=== PATIENT | female | born 1970 | race Caucasian/White ===

== ENCOUNTER → 2018-06-27 11:55 | Outpatient (CLI) | payer OTHER, SELFPAY ==
[2018-06-27 13:55] LABS: Absolute Lymphocyte Count 2.68 X10^3/ul (0.83-4.51); Absolute Neutrophil Count 3.3 X10^3/uL (2.0-7.7); Basophil# 0.04 X10^3/uL; Basophil% 0.6 % (0-1); Eosinophil# 0.14 X10^3/uL; Hemoglobin 12.6 g/dl (12.0-15.0); Lymphocyte # 2.68 X10^3/ul (4.0); Lymphocyte % 38.6 % (19-41); Mean Corp Hgb Conc 33.2 g/gl (32-36); Mean Corpuscular Hgb 26.6 pg (27.0-32.0); Mean Corpuscular Volume 80.3 fL (81-99); Mean Platelet Vol. 9.7 fl (6.2-12.0); Monocyte# 0.78 X10^3/uL; Monocyte% 11.2 % (0-10); Neutrophil # 3.29 X10^3/uL (2.7-7.7); Neutrophil % 47.3 % (47-70); POSITIVE COUNT NO; POSITIVE DIFFERENTIAL NO; POSITIVE MORPHOLOGY NO; Platelet Count 231 K/mm3 (150-450); RBC Distribution Width CV 13.5 % (11.6-14.6); RBC Distribution Width SD 38.8 fl (35.1-43.9); Red Blood Count 4.73 M/mm3 (4.2-5.4)
[2018-06-27 14:18] LABS: ALB/GLOB Ratio 0.9 RATIO (0.9-2.4); AST(SGOT) 54 U/L (15-37); Alanine Aminotransfer ALT/SGPT 74 U/L (13-56); Albumin, Serum 3.7 g/dL (3.2-5.0); Alkaline Phosphatase 51 U/L (45-117); Anion Gap 4 (5-15); BUN 20 mg/dL (7-18); BUN/Creat Ratio 26.7 RATIO (10-20); Chloride 105 mmol/L (98-107); Creatinine, Serum 0.75 mg/dL (0.55-1.02); EST Glomerular Filtration Rate 88 mL/min (>60); Est Glom Filt Rate - Afr Amer 106 mL/min (>60); Globulin 4.2 g/dL (2.2-4.2); Glucose 234 mg/dL (74-106); Potassium 4.1 mmol/L (3.5-5.1); Protein, Total 7.9 g/dL (6.4-8.2); Sodium Level 136 mmol/L (136-145); Thyroid Stim Hormone (TSH) 3.38 uIU/mL (0.358-3.74)
== END ==
PROVIDERS: Visit Provider Family Medicine Geriatric Medicine
DX: Z00.00 Encounter for general adult medical examination without abnormal findings (principal)
CPT/HCPCS: 36415; 80053; 84443; 85025

== ENCOUNTER → 2018-07-03 15:10 | Outpatient (CLI) | payer OTHER, SELFPAY ==
[2016-04-01 11:06] VITALS: BMI 47.0
== END ==
PROVIDERS: Visit Provider Family Medicine Geriatric Medicine
DX: N39.0 Urinary tract infection, site not specified (principal)
CPT/HCPCS: 87086; 87088; 87186

== ENCOUNTER → 2018-09-18 13:55 | Outpatient (CLI) | payer OTHER, SELFPAY ==
[2016-04-01 11:06] VITALS: BMI 47.0
[2018-09-18 17:23] LABS: Absolute Lymphocyte Count 2.54 X10^3/ul (0.83-4.51); Absolute Neutrophil Count 3.6 X10^3/uL (2.0-7.7); Basophil# 0.02 X10^3/uL; Basophil% 0.3 % (0-1); Eosinophil# 0.12 X10^3/uL; Eosinophils% 1.8 % (0-5); Hematocrit 39.9 % (37-47); Lymphocyte # 2.54 X10^3/ul (4.0); Lymphocyte % 37.3 % (19-41); Mean Corp Hgb Conc 32.6 g/gl (32-36); Mean Corpuscular Hgb 26.1 pg (27.0-32.0); Mean Platelet Vol. 10.2 fl (6.2-12.0); Monocyte# 0.48 X10^3/uL; Neutrophil # 3.64 X10^3/uL (2.7-7.7); Neutrophil % 53.5 % (47-70); Platelet Count 258 K/mm3 (150-450); RBC Distribution Width CV 13.2 % (11.6-14.6); RBC Distribution Width SD 37.8 fl (35.1-43.9); Red Blood Count 4.99 M/mm3 (4.2-5.4); White Blood Count 6.8 K/mm3 (4.4-11.0)
[2018-09-18 17:31] LABS: POSITIVE COUNT NO; POSITIVE DIFFERENTIAL NO; POSITIVE MORPHOLOGY NO
[2018-09-18 18:02] LABS: ALB/GLOB Ratio 0.9 RATIO (0.9-2.4); AST(SGOT) 19 U/L (15-37); Alanine Aminotransfer ALT/SGPT 27 U/L (13-56); Albumin, Serum 3.8 g/dL (3.2-5.0); Alkaline Phosphatase 40 U/L (45-117); Anion Gap 11 (5-15); BUN 16 mg/dL (7-18); BUN/Creat Ratio 20.8 RATIO (10-20); Calcium,Total 9.5 mg/dL (8.5-10.1); Chloride 103 mmol/L (98-107); Creatinine, Serum 0.77 mg/dL (0.55-1.02); EST Glomerular Filtration Rate 85 mL/min (>60); Est Glom Filt Rate - Afr Amer 103 mL/min (>60); Globulin 4.3 g/dL (2.2-4.2); Glucose 107 mg/dL (74-106); Potassium 4.1 mmol/L (3.5-5.1); Protein, Total 8.1 g/dL (6.4-8.2); Sodium Level 141 mmol/L (136-145); Thyroid Stim Hormone (TSH) 2.12 uIU/mL (0.358-3.74)
== END ==
PROVIDERS: Visit Provider Family Medicine Geriatric Medicine
DX: I10 Essential (primary) hypertension (principal); E11.65 Type 2 diabetes mellitus with hyperglycemia
CPT/HCPCS: 36415; 80053; 84443; 85025

== ENCOUNTER → 2018-09-19 09:56 | Outpatient (CLI) | payer OTHER, SELFPAY ==
[2016-04-01 11:06] VITALS: BMI 47.0
--- NOTE | 2018-09-19 10:01 | RAD_ITS ---
STUDY: X-RAY - LEFT KNEE REASON FOR EXAM: Female, 48 years old. TECHNIQUE: view(s) of the knee. COMPARISON: None. FINDINGS: Normal visualized distal femur. Normal visualized proximal tibia and fibula. Normal proximal tibiofibular articulation. Normal medial femorotibial compartment. Normal lateral femorotibial compartment. Normal patellofemoral articulation. The soft tissue structures are unremarkable. No joint effusion. RAD/Knee 4 or More Views IMPRESSION: Normal x-ray examination of the knee. Electronically Signed: Eugene Hirsch, at 12:24 EDT Tel , Service support ,
== END ==
PROVIDERS: Family Provider Family Medicine Geriatric Medicine; PCP Family Medicine Geriatric Medicine; Referring Provider Family Medicine Geriatric Medicine; Visit Provider Family Medicine Geriatric Medicine
DX: M25.569 Pain in unspecified knee (principal)
CPT/HCPCS: 73564

== ENCOUNTER 2018-10-17 12:00 | Outpatient (RCR) | payer SELFPAY ==
--- NOTE | 2018-09-26 18:17 | HP.PTEVAL_ITS ---
Patient's Visit Information ARLEN NGUYEN is a 48 year old F referred to Physical Therapy by Phu Espinoza MD with a diagnosis of L knee pain. Date of Evaluation: 09/26/18 Physical Therapist: NILTON Rachel - Visit Plan Frequency: 2x /Week Duration: 6 Weeks Plan: 2X/ week for 6 weeks for gait training, equal wb sit to stand transfers, L hip and knee strength, stairs with HEP and modalities as needed. - Subjective Findings: Her L knee has hurt for years and did x-rays. It is getting worse and she is losing weight. It is waking her up in the middle of the night. Years ago she was told that she had some degenerative arthritis. Sx: pain center to lateral aspect of her knee. Occ it will lock or catch. She sleeps with a pillow between knees. SHe walks a lot. She has pain on the stairs and does give out on stairs. She wont carry the babies on the stairs. Occ she feels that she has limp. Crossing her L knee bothers her. - Pain L knee pain Pain Intensity (Out of 10): 4 - Objective gait: walks with decreased stance time on the L leg. def antalgic gait. Sit to stand: is able to stand up without her arms but she def uses her R leg to get up as opposed to the L leg to help. Stairs: Pt is able to go up stairs recip using her hand on her L knee and only able to come down the stairs using her R leg down first. LE MMT: R hip flex 4/5 and L hip flex 4-/5, R knee ext 4/5 and L 4-/5, R knee flex 4/5 and L 4-/5, R hip abd 4/5 and l 4-/5,. Knee AROM: B 133 flexion and 0 degrees extrenson. Palpation: tender along the lateral joint line and some patellar tendon tightness. - Goals Goal 1:: I HEP Goal Time Frame: 4-6 Weeks Goal 2:: Decrease L knee pain to 0/10 with walking and stairs Goal Time Frame: 4-6 Weeks Goal 3:: Increase L knee and hip strength to be able to do a sit to stand using B LE's equally Goal Time Frame: 4-6 Weeks Goal 4:: Be able to go up and down stairs recip with 1-2 handrails Goal Time Frame: 4-6 Weeks - Rehabilitation Potential Rehabilitation Potential: Good - Anticipated Interventions Patient/Client Instruction: Educate patient on: Condition, Plan of Care For the Purpose of:: To decrease pain, To increase ROM, To improve nutrient delivery to tissue, To improve muscle performance and motor function, To improve ability to perform ADL's, To increase tolerance to activity/condition/position, To improve performance and independence with ADL's, To decrease level of supervision to perform tasks, To improve ability of physical actions for home/community/work/leisure, To improve gait and locomotor functions, To improve health of tissue, To decrease soft tissue restriction, To increase flexibility/ROM Therapeutic Exercise to Include: Strength training, Flexibilty training, Gait and locomotor training, Active ROM For the Purpose of:: To decrease pain, To increase ROM, To improve muscle performance and motor function, To improve ability to perform ADL's, To increase tolerance to activity/condition/position, To improve performance and independence with ADL's, To improve ability of physical actions for home/community/work/leisure, To improve gait and locomotor functions, To improve health of tissue, To increase flexibility/ROM, To improve safety with gait IF ES: Yes Cryotherapy (ice pack, ice massage): Yes Ultrasound (thermal/non thermal): Yes For the Purpose of:: To decrease pain, To decrease swelling/inflammation, To increase ROM, To improve nutrient delivery to tissue Thank you for the opportunity to evaluate your patient. For Medicare and Medicare HMO plans, please review the plan of care and approve it. It will need to be FAXED BACK to us at [phone] for Medicare purposes. For Medicare only, by signing this I certify the plan of care. Please let me know if there are questions or concerns regarding this plan of care. Physician Si gnature: Date:
--- NOTE | 2018-11-27 14:18 | HP.PTDCNRP_ITS ---
HP - Discharge Summary (1) - Patient Information ARLEN NGUYEN was seen in my office for initial evaluation on 09/26/18. The following Plan of Care was established for this patient: Initial Frequency: 2x /Week Initial Duration: 6 Weeks - Anticipated Interventions Patient/Client Instruction: Educate patient on: Condition, Plan of Care For the Purpose of:: To decrease pain, To increase ROM, To improve nutrient del bailey to tissue, To improve muscle performance and motor function, To improve ability to perform ADL's, To increase tolerance to activity/condition/position, To improve performance and independence with ADL's, To decrease level of supervision to perform tasks, To improve ability of physical actions for home/community/work/leisure, To improve gait and locomotor functions, To improve health of tissue, To decrease soft tissue restriction, To increase flexibility/ROM Therapeutic Exercise to Include: Strength training, Flexibilty training, Gait and locomotor training, Active ROM For the Purpose of:: To decrease pain, To increase ROM, To improve muscle performance and motor function, To improve ability to perform ADL's, To increase tolerance to activity/condition/position, To improve performance and independence with ADL's, To improve ability of physical actions for home/community/work/leisure, To improve gait and locomotor functions, To improve health of tissue, To increase flexibility/ROM, To improve safety with gait IF ES: Yes Cryotherapy (ice pack, ice massage): Yes Ultrasound (thermal/non thermal): Yes For the Purpose of:: To decrease pain, To decrease swelling/inflammation, To increase ROM, To improve nutrient delivery to tissue This patient was last seen in our office 10/17/18. Pertinent comments regarding their Physical therapy will appear below: [facility] as pt has not rescheduled any additional PT appointments. At this point I will be discontinuing this patient from physical therapy. I would be happy to see this patient again in the future if found appropriate by the physician. Thank you! Briana Arzate, MPT
== END 2018-10-17 19:00 | disposition home or self-care (01) ==
LOC: PT 12:00
PROVIDERS: Family Provider Family Medicine Geriatric Medicine; PCP Family Medicine Geriatric Medicine; Referring Provider Family Medicine Geriatric Medicine; Visit Provider Family Medicine Geriatric Medicine
DX: M25.569 Pain in unspecified knee (principal)
CPT/HCPCS: 97110; 97161; 97530

== ENCOUNTER 2018-11-18 13:12 | Emergency (ER) | payer OTHER, SELFPAY ==
[2018-11-18 13:14] VITALS: BP 173/87; PULSE 97; RESP 20; TEMP 36.1; O2SAT 95; BMI 32.5
--- NOTE | 2018-11-18 13:29 | CT_ITS ---
STUDY: CT BRAIN WITHOUT CONTRAST REASON FOR EXAM: Female, 48 years old. Headache RADIATION DOSAGE (If Supplied By Facility): CTDIvol = ( 44.99 ) mGy, DLP = ( 846.73 ) mGycm TECHNIQUE: Transaxial CT imaging of the brain was performed without administration of intravenous contrast material. Individualized dose optimization techniques were used for this CT. COMPARISON: 09/11/2014 FINDINGS: Normal soft tissue structures. Normal calvarium. Normal size ventricles and extra-axial spaces for the patient's age. Normal white matter tracts of the cerebral hemispheres. Normal basal ganglia and thalami. Normal brainstem. Normal cerebellum. There is no intracranial hemorrhage. There are no findings of an acute ischemic infarction. Normal visualized paranasal sinuses. CT/Brain/Head without Contrast IMPRESSION: Normal unenhanced CT scan of the brain. Electronically Signed: Semaj Arana MD ([place]) at 14:23 EDT , Service support ,
--- NOTE | 2018-11-18 13:30 | ED.DCSUM_ITS ---
History of Present Illness Chief Complaint: Headache Informant: Patient, Family Onset: Days Current Severity: Mild Narrative: Patient is here with family they indicate the patient began having a headache yesterday was nonspecific headache persisted into today she has not been ill in any other way no nausea vomiting or fever no exposures no trauma she does have multiple other health conditions including migraine headaches, diabetes and hypercholesterolemia are all been stable she is prone to occasional headaches, she has no known history of [employer] brain tumor or aneurysm and no family history they can recall does note her sister has history of migraine headaches as well Past Medical History - Allergies and Home Meds Allergies/Adverse Reactions: Allergies peanut Allergy (Verified 11/18/18 13:13) Anaphylaxis shellfish derived Allergy (Verified 11/18/18 13:13) Anaphylaxis codeine Adverse Reaction (Verified 11/18/18 13:13) Rash prednisone Adverse Reaction (Verified 11/18/18 13:13) Other sertraline HCl [From Zoloft] Adverse Reaction (Verified 11/18/18 13:13) Other NUTS Allergy (Uncoded 11/18/18 13:13) Anaphylaxis Primary Care Physician: Phu Espinoza Chi, MD [Primary Care Provider] - Past Medical History: - - Hypercholesterolemia and diabetes Surgical History: no surgical history Smoking Status: Never smoker - Family History Maternal Family History: Reports: Heart Disease Offspring Family History: Reports: Clotting Disorder, Heart Disease Review of Systems General: Denies: Chills, Fever, Sweats Eyes: Denies: Visual changes - bilaterally, Diplopia ENT: Denies: Rhinorrhea, Sore throat Cardiovascular: Denies: Chest pain, Palpitations Respiratory: Denies: Dyspnea, Cough, Dyspnea on exertion Gastrointestinal: Denies: Abdominal pain, Nausea, Vomiting, Diarrhea, Melena, Hematochezia Genitourinary: Denies: Dysuria, Hematuria, Frequency Musculoskeletal: Denies: Back pain, Extremity Pain Skin: Denies: Rash, Wounds Neurological: Reports: Headache. Denies: Weakness, Numbness Physical Exam Vital Signs/Narrative: Vital Signs Temp Pulse Resp BP Pulse Ox 11/18/18 13:14 96.9 F L 97 20 H 173/87 H 95 General: Well nourished, Well developed, No Acute Distress Head: Normocephalic, Atraumatic Eyes: Perrl, EOMI ENT: Moist mucous membranes, No rhinorrhea Neck: Supple, Nontender Cardiovascular: Regular rate, Regular rhythm, No murmurs Respiratory: No distress, CTA bilaterally, Chest nontender Abdomen: Soft, Nontender, Nondistended, Normal bowel sounds Back: Nontender, Normal Inspection Extremities: Nontender, No edema Skin: Normal color, No rash Neurological: Alert, Oriented x3, Cranial nerves II-XII grossly intact, Normal Strength, Normal Sensation Psychological: Normal affect, Normal Mood Diagnostic/Tx/Re-eval - Medical Decision Making She is only complaint is the headache her physical exam is really unremarkable she is afebrile her neck appears supple her pupils are equal reactive no discomfort to bright light, her other health conditions have been stable there was no trauma given all the above screening labs head CT pain management and reevaluation was admitted in 2014 with migraine headache disorder, at that time she had an MRI MRV other studies are unremarkable showing no signs of [employer] anatomic disorder aneurysm tumor etc. see that report Reevaluation the patient's screening labs chest x-ray EKG head CT are all negative, see those reports Reevaluation she is feeling much better spoke with her and her we discussed options of doing lumbar puncture admission for further management, she declined all of that and they indicated they would prefer to go home she will follow-up with her PCP she will be prescribed for [place] tablets as a rescue medicine and does agree to understand return for symptoms change or intensified anyway Home stable Impression final Migraine headache disorder improved to resolved ED Disposition - Plan for ED Patient: Diagnosis: Headache Instructions: HEADACHE, Unspecified Prescriptions: Hydrocodone Bitart/Apap 5-325 [[place] 5MG-325MG] 1 tab PO Q4H PRN PRN 2 Days #4 tab PRN Reason: Pain Prescription Printed Referrals: Phu Espinoza Chi, MD [Primary Care Provider] -
[2018-11-18] MEDS: 0.9% Normal Saline 1,000 ML 999 ML IV (13:37)
[2018-11-18] MEDS: morphine 8 MG/ML Syringe IV (13:38)
[2018-11-18] MEDS: DiphenhydrAMINE 50 MG/ML Syringe 25 MG IV (13:38)
[2018-11-18] MEDS: proCHLORPERazine 10 MG/2 ML Vial IV (13:39)
--- NOTE | 2018-11-18 13:50 | EKG12_ITS ---
Test Reason : CP Blood Pressure : / mmHG Vent. Rate : 101 BPM Atrial Rate : 101 BPM P-R Int : 192 ms QRS Dur : 088 ms QT Int : 376 ms P-R-T Axes : 049 031 020 degrees QTc Int : 487 ms Sinus tachycardia Low voltage QRS (Limb Leads) Confirmed by EDWINA DICKENS, ARNEL ([id number]), photographic editor VERNON LAZO ([id number]) on 11/21/2018 11:46:38 AM Referred By: GI Confirmed By:ARNEL BLAND MD
--- NOTE | 2018-11-18 13:57 | RAD_ITS ---
STUDY: X-RAY CHEST REASON FOR EXAM: Female, 48 years old. Headaches, agitation TECHNIQUE: AP COMPARISON: September 11, 2014 FINDINGS: The lungs are clear but under expanded. There is no demonstrated pleural abnormality. Normal size heart. Normal mediastinum and felisa. Normal visualized pulmonary arteries. Normal visualized aortic arch and descending thoracic aorta. Normal visualized thoracic spine. Normal visualized ribs, clavicles, and shoulders. There is no demonstrated abnormality of the visualized soft tissue structures of the upper abdomen. RAD/Chest 1 View (Portable) IMPRESSION: Hypoinflation. No airspace consolidation, pleural effusion or pneumothorax. Electronically Signed: Semaj Arana MD ([place]) at 14:43 EDT , Service support ,
[2018-11-18 13:58] LABS: Absolute Neutrophil Count 4.5 X10^3/uL (2.0-7.7); Basophil# 0.03 X10^3/uL; Basophil% 0.4 % (0-1); Eosinophil# 0.13 X10^3/uL; Eosinophils% 1.7 % (0-5); Hemoglobin 12.6 g/dL (12.0-15.0); Lymphocyte % 33.2 % (19-41); Mean Corp Hgb Conc 33.2 g/dL (32-36); Mean Corpuscular Hgb 26.6 pg (27.0-32.0); Mean Corpuscular Volume 80.3 fL (81-99); Mean Platelet Vol. 10.1 fl (6.2-12.0); Monocyte# 0.62 X10^3/uL; Monocyte% 7.9 % (0-10); NRBC Flagged by Analyzer 0 % (0-5); Neutrophil # 4.45 X10^3/uL (2.7-7.7); Neutrophil % 56.7 % (47-70); Platelet Count 242 K/mm3 (150-450); RBC Distribution Width CV 13.8 % (11.6-14.6); Red Blood Count 4.73 M/mm3 (4.2-5.4); White Blood Count 7.8 K/mm3 (4.4-11.0)
[2018-11-18 14:12] LABS: Anion Gap 11 (5-15); BUN 20 mg/dL (7-18); BUN/Creat Ratio 27.8 RATIO (10-20); Chloride 109 mmol/L (98-107); Creatinine, Serum 0.72 mg/dL (0.55-1.02); EST Glomerular Filtration Rate 92 mL/min (>60); Est Glom Filt Rate - Afr Amer 111 mL/min (>60); Estimated Creatinine Clearance 99.86 ml/min; Glucose 124 mg/dL (74-106); Potassium 3.7 mmol/L (3.5-5.1); Sodium Level 142 mmol/L (136-145)
[2018-11-18] MEDS: LORazepam 2 MG/ML Syringe 1 MG IV (14:26)
[2018-11-18 14:35] LABS: Bedside Glucose 126 mg/dL (70-110)
[2018-11-18] MEDS: Ketorolac 30 MG/ML Syringe IV (14:39)
[2018-11-18 15:13] VITALS: BP 168/88; PULSE 79; RESP 15; O2SAT 95
[2018-11-18 15:39] VITALS: PULSE 59; RESP 17; O2SAT 98
== END 2018-11-18 15:40 | disposition home or self-care (01) ==
LOC: ED 13:40
PROVIDERS: Emergency Provider Emergency Medicine; Family Provider Family Medicine Geriatric Medicine; PCP Family Medicine Geriatric Medicine
DX: G43.909 Migraine, unspecified, not intractable, without status migrainosus (principal); E78.00 Pure hypercholesterolemia, unspecified; E11.9 Type 2 diabetes mellitus without complications; Z88.5 Allergy status to narcotic agent; Z91.010 Allergy to peanuts
CPT/HCPCS: 70450; 71045; 80048; 82962; 84484; 85025; 93005; 96361; 96374; 96375; 96376; 99283; J7030; A4216

== ENCOUNTER → 2018-12-17 14:54 | Outpatient (CLI) | payer OTHER, SELFPAY ==
[2018-11-18 13:14] VITALS: BMI 32.5
[2018-12-17 16:55] LABS: Absolute Lymphocyte Count 2.83 X10^3/uL (0.83-4.51); Basophil# 0.03 X10^3/uL; Basophil% 0.4 % (0-1); Eosinophil# 0.12 X10^3/uL; Eosinophils% 1.6 % (0-5); Hematocrit 36.6 % (37-47); Hemoglobin 11.9 g/dL (12.0-15.0); Lymphocyte # 2.83 X10^3/ul (4.0); Lymphocyte % 37.3 % (19-41); Mean Corp Hgb Conc 32.5 g/dL (32-36); Mean Corpuscular Hgb 27.1 pg (27.0-32.0); Mean Corpuscular Volume 83.4 fL (81-99); Mean Platelet Vol. 10.4 fl (6.2-12.0); Monocyte# 0.63 X10^3/uL; Monocyte% 8.3 % (0-10); NRBC Flagged by Analyzer 0 % (0-5); Neutrophil # 3.95 X10^3/uL (2.7-7.7); Neutrophil % 52.1 % (47-70); Platelet Count 278 K/mm3 (150-450); RBC Distribution Width CV 13.7 % (11.6-14.6); RBC Distribution Width SD 41.8 fl (35.1-43.9); Red Blood Count 4.39 M/mm3 (4.2-5.4); White Blood Count 7.6 K/mm3 (4.4-11.0)
[2018-12-17 17:18] LABS: Vitamin D,25 Hydroxy 49.8 ng/mL (29.95-100.01)
[2018-12-17 17:22] LABS: AST(SGOT) 14 U/L (15-37); Alanine Aminotransfer ALT/SGPT 20 U/L (13-56); Albumin, Serum 3.9 g/dL (3.2-5.0); Alkaline Phosphatase 44 U/L (45-117); Anion Gap 9 (5-15); BUN 18 mg/dL (7-18); BUN/Creat Ratio 23.1 RATIO (10-20); Calcium,Total 9.4 mg/dL (8.5-10.1); Chloride 105 mmol/L (98-107); Creatinine, Serum 0.78 mg/dL (0.55-1.02); EST Glomerular Filtration Rate 84 mL/min (>60); Est Glom Filt Rate - Afr Amer 101 mL/min (>60); Globulin 4.1 g/dL (2.2-4.2); Glucose 89 mg/dL (74-106); Potassium 4.5 mmol/L (3.5-5.1); Sodium Level 142 mmol/L (136-145); Thyroid Stim Hormone (TSH) 2.27 uIU/mL (0.358-3.74)
== END ==
PROVIDERS: Family Provider Family Medicine Geriatric Medicine; PCP Family Medicine Geriatric Medicine; Visit Provider Family Medicine Geriatric Medicine
DX: I10 Essential (primary) hypertension (principal); E11.65 Type 2 diabetes mellitus with hyperglycemia; E55.9 Vitamin D deficiency, unspecified
CPT/HCPCS: 36415; 80053; 82306; 84443; 85025

== ENCOUNTER 2019-02-03 12:26 | Emergency (ER) | payer OTHER, SELFPAY ==
[2019-02-03 12:27] VITALS: BP 164/86; PULSE 69; RESP 14; TEMP 36.6; O2SAT 98; BMI 35.2
[2019-02-03 12:30] VITALS: BP 142/104; PULSE 81; RESP 16; O2SAT 95
[2019-02-03] MEDS: Famotidine 20 MG Tablet 40 MG PO (12:39)
[2019-02-03] MEDS: MethylPREDNISolone 125 MG/2 ML Vial IV (12:39)
[2019-02-03] MEDS: DiphenhydrAMINE 50 MG/ML Syringe IV (12:39)
[2019-02-03 14:01] VITALS: BP 155/87; PULSE 77; RESP 16; O2SAT 98
[2019-02-03 14:46] LABS: Bedside Glucose 138 mg/dL (70-110)
--- NOTE | 2019-02-03 15:01 | ED.VISSUMM ---
- ER Visit Summary Date of Service: 02/03/19 Chief Complaint: Allergic reaction History of Present Illness: The patient is a 48 F who states that she ate a cookie at religion today that must of contain knots because she feels like she is having an anaphylactic reaction. She notes shortness of breath feels like her throat is closing off. She states she gave herself an EpiPen which has saved her life. Physical Examination: Afebrile vital signs are stable Gen: Well-nourished well-developed Head: Normocephalic atraumatic Eyes: Perrl EOMI ENT: TMs clear no rhinorrhea moist mucous membranes Neck: Supple no lymphadenopathy no JVD nontender with forceful expiration patient has abnormal sounds from her noncompliance with airway otherwise no stridor or wheezing CVS: Regular rate rhythm no murmurs normal S1-S2 Respiratory: No distress clear to auscultation bilaterally chest nontender Abdomen: Soft nontender nondistended normal bowel sounds no masses Back: Nontender Extremity: Nontender no edema Skin: Normal color no rash no obvious urticaria Neuro: alert orientated ?3 CN II-XII intact normal strength sensation reflexes gait cerebellar Psych: Anxious Emergency Department Course and Treatment: Patient received Benadryl Pepcid and Solu-Medrol. She was observed for 3 hours. Patient be discharged home with instructions for continued Benadryl and Pepcid. Impression: 1. Allergic reaction to Nuts This note was generated with [employer] dictation software. It may contain incorrect words, spelling, and punctuation that were not noted in review of the chart prior to signing ED Disposition - Plan for ED Patient: Disposition: Home or Assisted Living Instructions: ALLERGIC REACTION, Other (General) Prescriptions: Epinephrine [Epipen] 0.3 mg IJ X1 PRN #1 auto.injct PRN Reason: Anaphylaxis Prescription Printed Referrals: Phu Espinoza Chi, MD [Primary Care Provider] - As Needed Additional Instructions: I would recommend continued Benadryl 25 mg every 6-8 hours. Also Pepcid 20 mg twice a day.
[2019-02-03 15:08] VITALS: BP 137/75; PULSE 80; RESP 16; O2SAT 98
[2019-02-03 15:34] VITALS: O2SAT 94
== END 2019-02-03 15:35 | disposition home or self-care (01) ==
PROVIDERS: Emergency Provider Emergency Medicine; Family Provider Family Medicine Geriatric Medicine; PCP Family Medicine Geriatric Medicine
DX: T78.1XXA Other adverse food reactions, not elsewhere classified, initial encounter (principal); X58.XXXA Exposure to other specified factors, initial encounter; E11.9 Type 2 diabetes mellitus without complications; J45.909 Unspecified asthma, uncomplicated
CPT/HCPCS: 82962; 99284; J7040; A4216

== ENCOUNTER → 2019-03-08 09:56 | Outpatient (CLI) | payer OTHER, SELFPAY ==
--- NOTE | 2019-03-08 10:00 | RAD_ITS ---
STUDY: X-RAY - PELVIS REASON FOR EXAM: Female, 48 years old. Psoriatic arthropathy. TECHNIQUE: One view of the pelvis was obtained. COMPARISON: None. FINDINGS: There is a non-specific bowel gas pattern. Normal visualized soft tissue structures. There are multiple calcified phleboliths. Normal bilateral iliac wings, sacroiliac joints and visualized sacrum. Normal visualized bilateral superior and inferior pubic rami. Normal pubic symphysis. Normal ischial tuberosities. Normal visualized right femoral head. Normal right acetabulum. Normal right hip joint. Normal visualized left femoral head. Normal left acetabulum. Normal left hip joint. RAD/Pelvis 1 or 2 Views IMPRESSION: Normal x-ray examination of the pelvis. Electronically Signed: Alma Rosa Govea MD at 2:52 EST , Service support ,
[2019-03-08 12:35] LABS: Absolute Lymphocyte Count 2.72 X10^3/uL (0.83-4.51); Absolute Neutrophil Count 2.7 X10^3/uL (2.0-7.7); Basophil# 0.03 X10^3/uL; Basophil% 0.5 % (0-1); Eosinophil# 0.15 X10^3/uL; Eosinophils% 2.4 % (0-5); Hematocrit 39.5 % (37-47); Hemoglobin 12.2 g/dL (12.0-15.0); Lymphocyte # 2.72 X10^3/ul (4.0); Mean Corp Hgb Conc 30.9 g/dL (32-36); Mean Corpuscular Volume 84.2 fL (81-99); Mean Platelet Vol. 10.1 fl (6.2-12.0); Monocyte% 9.7 % (0-10); NRBC Flagged by Analyzer 0 % (0-5); Neutrophil # 2.66 X10^3/uL (2.7-7.7); Neutrophil % 43.1 % (47-70); Platelet Count 253 K/mm3 (150-450); RBC Distribution Width CV 12.9 % (11.6-14.6); Red Blood Count 4.69 M/mm3 (4.2-5.4); White Blood Count 6.2 K/mm3 (4.4-11.0)
[2019-03-08 12:43] LABS: ALB/GLOB Ratio 0.9 RATIO (0.9-2.4); AST(SGOT) 19 U/L (15-37); Alanine Aminotransfer ALT/SGPT 27 U/L (13-56); Albumin, Serum 3.8 g/dL (3.2-5.0); Alkaline Phosphatase 50 U/L (45-117); Anion Gap 1 (5-15); BUN 13 mg/dL (7-18); BUN/Creat Ratio 17.7 RATIO (10-20); Calcium,Total 8.8 mg/dL (8.5-10.1); Chloride 104 mmol/L (98-107); Creatinine, Serum 0.73 mg/dL (0.55-1.02); EST Glomerular Filtration Rate 90 mL/min (>60); Est Glom Filt Rate - Afr Amer 109 mL/min (>60); Globulin 4.1 g/dL (2.2-4.2); Glucose 131 mg/dL (74-106); Protein, Total 7.9 g/dL (6.4-8.2); Rheumatoid Factor < 10.0 IU/mL (<15); Sodium Level 138 mmol/L (136-145)
[2019-03-08 13:25] LABS: Hepatitis B Surface Antibody Non-Reactive; Hepatitis B Surface Antigen Non-Reactive (Nonreactive); Hepatitis C Antibody Non-Reactive (Nonreactive)
[2019-03-13 20:10] LABS: CCP IgG Antibodies 8 units (0-19); HLA B27 Negative (.); Hepatitis B Core AB IgM Negative (Negative)
== END ==
PROVIDERS: Family Provider Family Medicine Geriatric Medicine; PCP Family Medicine Geriatric Medicine; Referring Provider Internal Medicine Rheumatology; Visit Provider Internal Medicine Rheumatology
DX: L40.59 Other psoriatic arthropathy (principal); L40.8 Other psoriasis; E11.42 Type 2 diabetes mellitus with diabetic polyneuropathy; I10 Essential (primary) hypertension; F32.9 Major depressive disorder, single episode, unspecified; J30.9 Allergic rhinitis, unspecified
CPT/HCPCS: 36415; 72170; 80053; 81374; 85025; 86200; 86431; 86705; 86706; 86803; 87340

== ENCOUNTER → 2019-03-26 15:38 | Outpatient (CLI) | payer OTHER, SELFPAY ==
[2019-03-26 17:06] LABS: Absolute Lymphocyte Count 3.13 X10^3/uL (0.83-4.51); Absolute Neutrophil Count 3.8 X10^3/uL (2.0-7.7); Basophil# 0.04 X10^3/uL; Basophil% 0.5 % (0-1); Eosinophil# 0.19 X10^3/uL; Eosinophils% 2.4 % (0-5); Hematocrit 38.4 % (37-47); Hemoglobin 12.3 g/dL (12.0-15.0); Lymphocyte # 3.13 X10^3/ul (4.0); Lymphocyte % 39.6 % (19-41); Mean Corpuscular Hgb 26.1 pg (27.0-32.0); Mean Corpuscular Volume 81.5 fL (81-99); Mean Platelet Vol. 9.9 fl (6.2-12.0); Monocyte# 0.73 X10^3/uL; Monocyte% 9.2 % (0-10); NRBC Flagged by Analyzer 0 % (0-5); Neutrophil # 3.79 X10^3/uL (2.7-7.7); Platelet Count 249 K/mm3 (150-450); RBC Distribution Width CV 12.8 % (11.6-14.6); RBC Distribution Width SD 37.8 fl (35.1-43.9); Red Blood Count 4.71 M/mm3 (4.2-5.4); White Blood Count 7.9 K/mm3 (4.4-11.0)
[2019-03-26 17:24] LABS: ALB/GLOB Ratio 0.9 RATIO (0.9-2.4); AST(SGOT) 22 U/L (15-37); Alanine Aminotransfer ALT/SGPT 31 U/L (13-56); Albumin, Serum 3.9 g/dL (3.2-5.0); Alkaline Phosphatase 59 U/L (45-117); Anion Gap 8 (5-15); BUN 14 mg/dL (7-18); BUN/Creat Ratio 15.7 RATIO (10-20); Calcium,Total 9.3 mg/dL (8.5-10.1); Chloride 106 mmol/L (98-107); Creatinine, Serum 0.89 mg/dL (0.55-1.02); EST Glomerular Filtration Rate 71 mL/min (>60); Est Glom Filt Rate - Afr Amer 86 mL/min (>60); Globulin 4.2 g/dL (2.2-4.2); Glucose 191 mg/dL (74-106); Protein, Total 8.1 g/dL (6.4-8.2); Sodium Level 141 mmol/L (136-145); Thyroid Stim Hormone (TSH) 1.96 uIU/mL (0.358-3.74)
== END ==
PROVIDERS: Family Provider Family Medicine Geriatric Medicine; PCP Family Medicine Geriatric Medicine; Visit Provider Family Medicine Geriatric Medicine
DX: I10 Essential (primary) hypertension (principal); E11.65 Type 2 diabetes mellitus with hyperglycemia
CPT/HCPCS: 36415; 80053; 84443; 85025

== ENCOUNTER 2019-08-02 13:55 | Emergency (ER) | payer OTHER, SELFPAY ==
[2019-08-02 13:56] VITALS: BP 141/100; PULSE 74; RESP 24; TEMP 35.9; O2SAT 100; BMI 42.3
--- NOTE | 2019-08-02 14:08 | RAD_ITS ---
STUDY: X-RAY CHEST REASON FOR EXAM: Female, 49 years old. SOB, cough, fever. daughter is COVID +, TECHNIQUE: Single AP portable view of the chest. COMPARISON: Comparison is made with prior examination dated September 11, 2014. FINDINGS: EKG electrodes are seen. The lungs are clear and expanded. Scattered calcified granulomas. There is no demonstrated pleural abnormality. Normal size heart. Normal mediastinum and felisa. Normal visualized pulmonary arteries. Normal visualized aortic arch and descending thoracic aorta. There are mild degenerative changes of the visualized thoracic spine. Normal visualized ribs, clavicles, and shoulders. There is no demonstrated abnormality of the visualized soft tissue structures of the upper abdomen. RAD/Chest 1 View (Portable) IMPRESSION: No acute abnormality is seen. Electronically Signed: Michel Alfred, at 15:03 EDT , Service support ,
--- NOTE | 2019-08-02 14:08 | EKG12_ITS ---
Test Reason : SOB Blood Pressure : / mmHG Vent. Rate : 073 BPM Atrial Rate : 073 BPM P-R Int : 160 ms QRS Dur : 082 ms QT Int : 412 ms P-R-T Axes : 018 038 033 degrees QTc Int : 453 ms Normal sinus rhythm Low voltage QRS Borderline ECG Confirmed by THA CASTRO MD ([id number]), news video editor RILEY MAGANA ([id number]) on 08/05/2019 3:15:48 PM Referred By: JEANETTE/NELSON Confirmed By:THA CASTRO MD
--- NOTE | 2019-08-02 14:09 | ED.DCSUM_ITS ---
History of Present Illness Chief Complaint: Shortness of Breath Informant: Patient Onset: Days Context: Gradual Onset Timing: Continuous Current Severity: Moderate Maximum Severity: Moderate Narrative: The patient is a 49-year-old female with medical history significant for asthma and hypothyroidism that presents to the emergency department with cough, shortness of breath, and generalized malaise. The patient states that her daughter tested positive for COVID over the weekend. She states that she started to feel symptomatic. She states that she is been using her nebulizer with increased frequency. If she walks a distance, she gets very short of breath. She is had persistent fever and scant cough. She states that she also has some pain in her left chest. She is been nauseated without vomiting. She is also had lack of appetite. She states she called her doctor who referred her to the emergency department. Prior similar symptoms: No Recent Illness/Hospitalization: No Past Medical History - Allergies and Home Meds Allergies/Adverse Reactions: Allergies peanut Allergy (Verified 08/02/19 13:58) Anaphylaxis shellfish derived Allergy (Verified 08/02/19 13:58) Anaphylaxis codeine Adverse Reaction (Verified 08/02/19 13:58) Rash prednisone Adverse Reaction (Verified 08/02/19 13:58) Other sertraline HCl [From Zoloft] Adverse Reaction (Verified 08/02/19 13:58) Other NUTS Allergy (Uncoded 08/02/19 13:58) Anaphylaxis Primary Care Physician: Phu Espinoza Chi, MD [Primary Care Provider] - Prior records reviewed: Yes Past Medical History: - - Asthma, obesity, hypothyroidism Surgical History: no surgical history Smoking Status: Never smoker - Family History Maternal Family History: Reports: Heart Disease Offspring Family History: Reports: Clotting Disorder, Heart Disease Review of Systems General: Reports: Chills, Fever, Malaise. Denies: Sweats Eyes: Denies: Visual changes - bilaterally, Diplopia ENT: Denies: Rhinorrhea, Sore throat Cardiovascular: Denies: Chest pain, Palpitations Respiratory: Reports: Dyspnea, Cough. Denies: Dyspnea on exertion Gastrointestinal: Denies: Abdominal pain, Nausea, Vomiting, Diarrhea, Melena, Hematochezia Genitourinary: Denies: Dysuria, Hematuria, Frequency Musculoskeletal: Denies: Back pain, Extremity Pain Skin: Denies: Rash, Wounds Neurological: Denies: Headache, Weakness, Numbness Physical Exam Vital Signs/Narrative: Vital Signs Temp Pulse Resp BP Pulse Ox 08/02/19 13:56 96.6 F L 74 24 H 141/100 H 100 Inital Vital Signs reviewed: Yes General: Well nourished, Well developed, No Acute Distress Head: Normocephalic, Atraumatic Eyes: Perrl, EOMI ENT: Moist mucous membranes, No rhinorrhea Neck: Supple, Nontender Cardiovascular: Regular rate, Regular rhythm, No murmurs Respiratory: No distress, Chest nontender, Decreased Air Movement Abdomen: Soft, Nontender, Nondistended, Normal bowel sounds Back: Nontender, Normal Inspection Extremities: Nontender, No edema Skin: Normal color, No rash Neurological: Alert, Oriented x3, Cranial nerves II-XII grossly intact, Normal Strength, Normal Sensation Psychological: Normal affect, Normal Mood Diagnostic/Tx/Re-eval Clinical Impression(s) from Imaging Studies Chest X-Ray 08/02/19 14:08 IMPRESSION: No acute abnormality is seen. Electronically Signed: Michel Alfred, at 15:03 EDT , Service support , Abnormal Lab Results 08/02/19 08/02/19 08/02/19 14:16 14:25 14:25 WBC 7.8 RBC 4.71 Hgb 12.4 Hct 38.0 MCV 80.7 L MCH 26.3 L MCHC 32.6 RDW Std Deviation 38.9 RDW Coeff of Libby 13.6 Plt Count 248 MPV 9.4 Immature Gran % (Auto) 0.300 Neut % (Auto) 51.6 Lymph % (Auto) 38.0 [place] % (Auto) 7.9 Eos % (Auto) 1.7 Baso % (Auto) 0.5 Absolute Neuts (auto) 4.0 Absolute Lymphs (auto) 2.95 Nucleated RBC % 0 D-Dimer Quant (PE/DVT) <= 0.27 Sodium Potassium Chloride Carbon Dioxide Anion Gap BUN Creatinine Estim Creat Clear Calc Est GFR (MDRD) Af Amer Est GFR (MDRD) Non-Af BUN/Creatinine Ratio Glucose Calcium Total Bilirubin AST ALT Alkaline Phosphatase Total Protein Albumin Globulin Albumin/Globulin Ratio COVID-19 (EMILY) Cancelled 08/02/19 14:25 WBC RBC Hgb Hct MCV MCH MCHC RDW Std Deviation RDW Coeff of Libby Plt Count MPV Immature Gran % (Auto) Neut % (Auto) Lymph % (Auto) [place] % (Auto) Eos % (Auto) Baso % (Auto) Absolute Neuts (auto) Absolute Lymphs (auto) Nucleated RBC % D-Dimer Quant (PE/DVT) Sodium 139 Potassium 3.9 Chloride 102 Carbon Dioxide 29.0 Anion Gap 8 BUN 11 Creatinine 0.94 Estim Creat Clear Calc 70.40 Est GFR (MDRD) Af Amer 81 Est GFR (MDRD) Non-Af 67 BUN/Creatinine Ratio 11.7 Glucose 334 H Calcium 9.0 Total Bilirubin 0.40 AST 20 ALT 32 Alkaline Phosphatase 58 Total Protein 8.1 Albumin 3.8 Globulin 4.3 H Albumin/Globulin Ratio 0.9 COVID-19 (EMILY) - Medical Decision Making Patient presents with shortness of breath and generalized malaise. She has no hypoxia. She appears clinically well. Her symptoms do seem concerning for exposure to the novel COVID-19. This testing was ordered. Her x-ray does not show any focal infiltrative process. Labs are unremarkable. The patient continues to rest comfortably without hypoxia. At this point, she is requesting outpatient follow-up and I feel this is reasonable. I did spend time counseling the patient on concerning symptoms and reasons to return. Although she has underlying lung disease, I am hesitant to prescribe steroids due to concern for her viral infection. The patient will be discharged home. Impression 1. Dyspnea 2. Exposure to COVID-19 ED Disposition - Plan for ED Patient: Instructions: ED Upper Resp Infec No Abx Tx Referrals: Phu Espinoza Chi, MD [Primary Care Provider] -
[2019-08-02 14:38] LABS: Absolute Lymphocyte Count 2.95 X10^3/uL (0.83-4.51); Basophil# 0.04 X10^3/uL; Basophil% 0.5 % (0-1); Eosinophil# 0.13 X10^3/uL; Eosinophils% 1.7 % (0-5); Hemoglobin 12.4 g/dL (12.0-15.0); Lymphocyte # 2.95 X10^3/ul (4.0); Mean Corp Hgb Conc 32.6 g/dL (32-36); Mean Corpuscular Hgb 26.3 pg (27.0-32.0); Mean Corpuscular Volume 80.7 fL (81-99); Mean Platelet Vol. 9.4 fl (6.2-12.0); Monocyte# 0.61 X10^3/uL; Monocyte% 7.9 % (0-10); NRBC Flagged by Analyzer 0 % (0-5); Neutrophil # 4.01 X10^3/uL (2.7-7.7); Neutrophil % 51.6 % (47-70); Platelet Count 248 K/mm3 (150-450); RBC Distribution Width CV 13.6 % (11.6-14.6); RBC Distribution Width SD 38.9 fl (35.1-43.9); Red Blood Count 4.71 M/mm3 (4.2-5.4); White Blood Count 7.8 K/mm3 (4.4-11.0)
[2019-08-02 14:40] VITALS: BP 123/82; PULSE 69; RESP 22; TEMP 36.2; O2SAT 98
[2019-08-02 14:48] LABS: D-Dimer Quantitative (DVT/PE) <= 0.27 FEU/ug/m (0.27-0.49)
[2019-08-02 14:52] LABS: ALB/GLOB Ratio 0.9 RATIO (0.9-2.4); AST(SGOT) 20 U/L (15-37); Alanine Aminotransfer ALT/SGPT 32 U/L (13-56); Albumin, Serum 3.8 g/dL (3.2-5.0); Alkaline Phosphatase 58 U/L (45-117); Anion Gap 8 (5-15); BUN 11 mg/dL (7-18); BUN/Creat Ratio 11.7 RATIO (10-20); Chloride 102 mmol/L (98-107); Creatinine, Serum 0.94 mg/dL (0.55-1.02); EST Glomerular Filtration Rate 67 mL/min (>60); Est Glom Filt Rate - Afr Amer 81 mL/min (>60); Globulin 4.3 g/dL (2.2-4.2); Glucose 334 mg/dL (74-106); Potassium 3.9 mmol/L (3.5-5.1); Protein, Total 8.1 g/dL (6.4-8.2); Sodium Level 139 mmol/L (136-145)
[2019-08-02 16:15] VITALS: BP 126/85; PULSE 72; PULSE 75; RESP 15; O2SAT 97
== END 2019-08-02 16:18 | disposition home or self-care (01) ==
LOC: ED 15:18
PROVIDERS: Emergency Provider Emergency Medicine; PCP Family Medicine Geriatric Medicine
DX: R06.00 Dyspnea, unspecified (principal); R05 Cough; Z20.828 Contact with and (suspected) exposure to other viral communicable diseases; Z82.49 Family history of ischemic heart disease and other diseases of the circulatory system; Z88.5 Allergy status to narcotic agent; J45.909 Unspecified asthma, uncomplicated; E03.9 Hypothyroidism, unspecified
CPT/HCPCS: 71045; 80053; 85025; 85379; 87635; 93005; 99284; G2023; J7030; U0002

== ENCOUNTER → 2019-08-05 16:08 | Outpatient (CLI) | payer OTHER, SELFPAY ==
[2019-08-02 13:56] VITALS: BMI 42.3
[2019-08-05 17:00] LABS: Absolute Lymphocyte Count 2.33 X10^3/uL (0.83-4.51); Absolute Neutrophil Count 4.6 X10^3/uL (2.0-7.7); Basophil# 0.03 X10^3/uL; Basophil% 0.4 % (0-1); Eosinophil# 0.13 X10^3/uL; Eosinophils% 1.7 % (0-5); Hematocrit 38.6 % (37-47); Hemoglobin 12.8 g/dL (12.0-15.0); Lymphocyte # 2.33 X10^3/ul (4.0); Lymphocyte % 30.1 % (19-41); Mean Corp Hgb Conc 33.2 g/dL (32-36); Mean Corpuscular Hgb 26.7 pg (27.0-32.0); Mean Corpuscular Volume 80.6 fL (81-99); Mean Platelet Vol. 9.7 fl (6.2-12.0); Monocyte# 0.62 X10^3/uL; NRBC Flagged by Analyzer 0 % (0-5); Neutrophil % 59.3 % (47-70); Platelet Count 221 K/mm3 (150-450); RBC Distribution Width CV 13.9 % (11.6-14.6); Red Blood Count 4.79 M/mm3 (4.2-5.4); White Blood Count 7.8 K/mm3 (4.4-11.0)
[2019-08-05 17:19] LABS: ALB/GLOB Ratio 0.8 RATIO (0.9-2.4); AST(SGOT) 32 U/L (15-37); Alanine Aminotransfer ALT/SGPT 44 U/L (13-56); Albumin, Serum 3.3 g/dL (3.2-5.0); Alkaline Phosphatase 51 U/L (45-117); Anion Gap 7 (5-15); BUN 16 mg/dL (7-18); BUN/Creat Ratio 17.7 RATIO (10-20); Calcium,Total 10.1 mg/dL (8.5-10.1); Chloride 100 mmol/L (98-107); Creatinine, Serum 0.91 mg/dL (0.55-1.02); EST Glomerular Filtration Rate 70 mL/min (>60); Est Glom Filt Rate - Afr Amer 85 mL/min (>60); Globulin 4.1 g/dL (2.2-4.2); Glucose 220 mg/dL (74-106); Potassium 3.8 mmol/L (3.5-5.1); Protein, Total 7.4 g/dL (6.4-8.2); Sodium Level 136 mmol/L (136-145)
== END ==
PROVIDERS: PCP Family Medicine Geriatric Medicine; Visit Provider Family Medicine Geriatric Medicine
DX: R53.83 Other fatigue (principal)
CPT/HCPCS: 36415; 80053; 84443; 85025; 87633

== ENCOUNTER → 2019-08-06 13:48 | Outpatient (CLI) | payer OTHER, SELFPAY ==
[2019-08-02 13:56] VITALS: BMI 42.3
--- NOTE | 2019-08-06 13:49 | RAD_ITS ---
STUDY: X-RAY - ABDOMEN/PELVIS REASON FOR EXAM: Female, 49 years old. Abdominal pain -- general illness x several weeks -- fever, and quot;just doesn''t feel right and quot; TECHNIQUE: AP supine and upright views of the abdomen and pelvis. COMPARISON: None. FINDINGS: Normal visualized lung bases. There is an abundance of fecal material throughout the colon. There is no demonstrated free abdominal air. Surgical clips are seen in the right upper quadrant in keeping with prior cholecystectomy. There are calcified phleboliths in the pelvis. There are mild degenerative changes of the visualized lumbar spine. RAD/Abd Inc Decub and/or Erect IMPRESSION: Large amount of fecal material is seen in the colon. Electronically Signed: Michel Alfred, at 14:12 EDT , Service support ,
== END ==
PROVIDERS: PCP Family Medicine Geriatric Medicine; Referring Provider Family Medicine Geriatric Medicine; Visit Provider Family Medicine Geriatric Medicine
DX: R10.9 Unspecified abdominal pain (principal)
CPT/HCPCS: 74019

== ENCOUNTER → 2019-08-07 11:26 | Outpatient (CLI) | payer OTHER, SELFPAY ==
[2019-08-02 13:56] VITALS: BMI 42.3
--- NOTE | 2019-08-07 11:45 | RAD_ITS ---
STUDY: X-RAY - ABDOMEN/PELVIS REASON FOR EXAM: Female, 49 years old. Fecal impaction TECHNIQUE: AP supine and upright views of the abdomen and pelvis. COMPARISON: Comparison is made with prior study dated August 06, 2019. FINDINGS: Normal visualized lung bases. There is a moderate amount of colonic fecal material. There is no demonstrated free abdominal air. Surgical clips are seen in the right upper quadrant suggestive of prior cholecystectomy. There are calcified phleboliths in the pelvis. Normal visualized osseous structures. RAD/Abd Inc Decub and/or Erect IMPRESSION: Moderate amount of fecal material is seen in the colon. Electronically Signed: Michel Alfred, at 12:35 EDT , Service support ,
== END ==
PROVIDERS: PCP Family Medicine Geriatric Medicine; Referring Provider Family Medicine Geriatric Medicine; Visit Provider Family Medicine Geriatric Medicine
DX: K56.41 Fecal impaction (principal)
CPT/HCPCS: 74019

== ENCOUNTER → 2019-09-06 12:27 | Outpatient (CLI) | payer OTHER, SELFPAY ==
[2019-09-06 15:18] LABS: Absolute Lymphocyte Count 2.71 X10^3/uL (0.83-4.51); Basophil# 0.03 X10^3/uL; Basophil% 0.5 % (0-1); Eosinophil# 0.12 X10^3/uL; Eosinophils% 1.8 % (0-5); Hematocrit 37.3 % (37-47); Hemoglobin 11.9 g/dL (12.0-15.0); Lymphocyte # 2.71 X10^3/ul (4.0); Lymphocyte % 41.4 % (19-41); Mean Corp Hgb Conc 31.9 g/dL (32-36); Mean Corpuscular Hgb 26.5 pg (27.0-32.0); Mean Corpuscular Volume 83.1 fL (81-99); Mean Platelet Vol. 10.1 fl (6.2-12.0); Monocyte# 0.62 X10^3/uL; Monocyte% 9.5 % (0-10); NRBC Flagged by Analyzer 0 % (0-5); Neutrophil # 3.03 X10^3/uL (2.7-7.7); Neutrophil % 46.3 % (47-70); Platelet Count 245 K/mm3 (150-450); RBC Distribution Width CV 13.9 % (11.6-14.6); Red Blood Count 4.49 M/mm3 (4.2-5.4); White Blood Count 6.5 K/mm3 (4.4-11.0)
[2019-09-06 15:32] LABS: ALB/GLOB Ratio 0.8 RATIO (0.9-2.4); AST(SGOT) 22 U/L (15-37); Alanine Aminotransfer ALT/SGPT 41 U/L (13-56); Albumin, Serum 3.6 g/dL (3.2-5.0); Alkaline Phosphatase 60 U/L (45-117); Anion Gap 5 (5-15); BUN 14 mg/dL (7-18); BUN/Creat Ratio 17.4 RATIO (10-20); Calcium,Total 9.9 mg/dL (8.5-10.1); Chloride 103 mmol/L (98-107); EST Glomerular Filtration Rate 80 mL/min (>60); Est Glom Filt Rate - Afr Amer 97 mL/min (>60); Globulin 4.3 g/dL (2.2-4.2); Glucose 280 mg/dL (74-106); Potassium 4.3 mmol/L (3.5-5.1); Protein, Total 7.9 g/dL (6.4-8.2); Sodium Level 137 mmol/L (136-145)
== END ==
PROVIDERS: PCP Family Medicine Geriatric Medicine; Referring Provider Internal Medicine Rheumatology; Visit Provider Internal Medicine Rheumatology
DX: L40.59 Other psoriatic arthropathy (principal); Z79.899 Other long term (current) drug therapy; L40.8 Other psoriasis; E11.42 Type 2 diabetes mellitus with diabetic polyneuropathy; I10 Essential (primary) hypertension; F32.9 Major depressive disorder, single episode, unspecified; J30.9 Allergic rhinitis, unspecified
CPT/HCPCS: 36415; 80053; 85025

== ENCOUNTER → 2019-11-19 14:51 | Outpatient (CLI) | payer OTHER, SELFPAY ==
--- NOTE | 2019-11-19 15:20 | RAD_ITS ---
STUDY: X-RAY CHEST REASON FOR EXAM: Female, 49 years old. CHEST PAIN TECHNIQUE: PA and lateral views of the chest. COMPARISON: Prior study of 08/02/2019 FINDINGS: The lungs are clear and expanded. There is no demonstrated pleural abnormality. Normal size heart. Normal mediastinum and felisa. Normal visualized pulmonary arteries. Normal visualized aortic arch and descending thoracic aorta. There is mild endplate spondylosis of the thoracic spine. Normal visualized ribs, clavicles, and shoulders. There is no demonstrated abnormality of the visualized soft tissue structures of the upper abdomen. RAD/Chest PA and Lateral IMPRESSION: Mild endplate spondylosis of the thoracic spine. No acute cardiopulmonary disease process is seen. Electronically Signed: Eh Kelsey MD at 16:02 EDT , Service support ,
[2019-11-19 16:06] LABS: Absolute Lymphocyte Count 3.18 X10^3/uL (0.83-4.51); Absolute Neutrophil Count 4.5 X10^3/uL (2.0-7.7); Basophil# 0.05 X10^3/uL; Basophil% 0.6 % (0-1); Eosinophils% 1.2 % (0-5); Lymphocyte # 3.18 X10^3/ul (4.0); Lymphocyte % 36.8 % (19-41); Mean Corp Hgb Conc 32.4 g/dL (32-36); Mean Corpuscular Hgb 25.9 pg (27.0-32.0); Mean Corpuscular Volume 80.2 fL (81-99); Monocyte# 0.73 X10^3/uL; Monocyte% 8.4 % (0-10); NRBC Flagged by Analyzer 0 % (0-5); Neutrophil # 4.53 X10^3/uL (2.7-7.7); Neutrophil % 52.4 % (47-70); Platelet Count 279 K/mm3 (150-450); RBC Distribution Width CV 13.2 % (11.6-14.6); RBC Distribution Width SD 37.5 fl (35.1-43.9); Red Blood Count 4.24 M/mm3 (4.2-5.4); White Blood Count 8.6 K/mm3 (4.4-11.0)
[2019-11-19 16:31] LABS: D-Dimer Quantitative (DVT/PE) < 0.27 FEU/ug/m (0.27-0.49)
[2019-11-19 16:35] LABS: AST(SGOT) 48 U/L (15-37); Alanine Aminotransfer ALT/SGPT 48 U/L (13-56); Albumin, Serum 3.7 g/dL (3.2-5.0); Alkaline Phosphatase 44 U/L (45-117); Anion Gap 10 (5-15); BUN 23 mg/dL (7-18); BUN/Creat Ratio 23.7 RATIO (10-20); CPK Total, Creatine Kinase 149 U/L (26-192); Calcium,Total 8.8 mg/dL (8.5-10.1); Chloride 105 mmol/L (98-107); Creatinine, Serum 0.97 mg/dL (0.55-1.02); EST Glomerular Filtration Rate 65 mL/min (>60); Est Glom Filt Rate - Afr Amer 78 mL/min (>60); Globulin 3.6 g/dL (2.2-4.2); Glucose 212 mg/dL (74-106); Potassium 4.1 mmol/L (3.5-5.1); Protein, Total 7.3 g/dL (6.4-8.2); Sodium Level 138 mmol/L (136-145); Thyroid Stim Hormone (TSH) 3.66 uIU/mL (0.358-3.74)
[2019-11-19 16:49] LABS: BNP,B-Type NATRIURETIC PEPTIDE 21.4 pg/mL (0-100)
[2019-11-21 09:29] LABS: Myoglobin, Serum 38 ng/mL (25-58)
== END ==
PROVIDERS: PCP Family Medicine Geriatric Medicine; Referring Provider Family Medicine Geriatric Medicine; Visit Provider Family Medicine Geriatric Medicine
DX: R06.02 Shortness of breath (principal); R07.9 Chest pain, unspecified; R06.89 Other abnormalities of breathing
CPT/HCPCS: 36415; 71046; 80053; 82550; 83874; 83880; 84443; 84484; 85025; 85379

== ENCOUNTER → 2019-11-21 17:44 | Outpatient (CLI) | payer OTHER, SELFPAY | PROVIDERS: PCP Family Medicine Geriatric Medicine; Referring Provider Family Medicine Geriatric Medicine; Visit Provider Family Medicine Geriatric Medicine | DX: R06.89 Other abnormalities of breathing (principal) | CPT/HCPCS: 87635; 94799; C9803; U0003 ==

== ENCOUNTER → 2019-12-19 15:06 | Outpatient (CLI) | payer OTHER, SELFPAY ==
[2019-12-19 17:06] LABS: Absolute Lymphocyte Count 2.81 X10^3/uL (0.83-4.51); Absolute Neutrophil Count 3.9 X10^3/uL (2.0-7.7); Basophil# 0.03 X10^3/uL; Basophil% 0.4 % (0-1); Eosinophil# 0.14 X10^3/uL; Eosinophils% 1.9 % (0-5); Hematocrit 35.5 % (37-47); Hemoglobin 11.3 g/dL (12.0-15.0); Lymphocyte # 2.81 X10^3/ul (4.0); Lymphocyte % 37.3 % (19-41); Mean Corp Hgb Conc 31.8 g/dL (32-36); Mean Corpuscular Hgb 26.7 pg (27.0-32.0); Mean Corpuscular Volume 83.9 fL (81-99); Mean Platelet Vol. 10.3 fl (6.2-12.0); Monocyte# 0.62 X10^3/uL; Monocyte% 8.2 % (0-10); NRBC Flagged by Analyzer 0 % (0-5); Neutrophil # 3.91 X10^3/uL (2.7-7.7); Neutrophil % 51.8 % (47-70); Platelet Count 254 K/mm3 (150-450); RBC Distribution Width CV 13.9 % (11.6-14.6); RBC Distribution Width SD 42.5 fl (35.1-43.9); Red Blood Count 4.23 M/mm3 (4.2-5.4); White Blood Count 7.5 K/mm3 (4.4-11.0)
[2019-12-19 17:35] LABS: ALB/GLOB Ratio 0.9 RATIO (0.9-2.4); AST(SGOT) 54 U/L (15-37); Alanine Aminotransfer ALT/SGPT 66 U/L (13-56); Albumin, Serum 3.6 g/dL (3.2-5.0); Alkaline Phosphatase 67 U/L (45-117); Anion Gap 7 (5-15); BUN 18 mg/dL (7-18); BUN/Creat Ratio 17.1 RATIO (10-20); Calcium,Total 8.6 mg/dL (8.5-10.1); Chloride 99 mmol/L (98-107); Creatinine, Serum 1.05 mg/dL (0.55-1.02); EST Glomerular Filtration Rate 59 mL/min (>60); Est Glom Filt Rate - Afr Amer 71 mL/min (>60); Globulin 3.8 g/dL (2.2-4.2); Glucose 390 mg/dL (74-106); Potassium 4.3 mmol/L (3.5-5.1); Protein, Total 7.4 g/dL (6.4-8.2); Sodium Level 135 mmol/L (136-145); Thyroid Stim Hormone (TSH) 2.42 uIU/mL (0.358-3.74)
== END ==
PROVIDERS: PCP Family Medicine Geriatric Medicine; Visit Provider Family Medicine Geriatric Medicine
DX: E11.65 Type 2 diabetes mellitus with hyperglycemia (principal); I10 Essential (primary) hypertension
CPT/HCPCS: 36415; 80053; 84443; 85025

== ENCOUNTER → 2019-12-25 | Outpatient (CLI) | payer OTHER, SELFPAY ==
--- NOTE | 2019-12-25 08:12 | US_ITS ---
STUDY: ABDOMINAL ULTRASOUND - RIGHT UPPER QUADRANT REASON FOR VISIT: Female, 49 years old ABN LABS -- HX OF CHOLECYSTECTOMY -- HX OF KIDNEY STONES TECHNIQUE: Ultrasound evaluation of the right upper quadrant was performed with real-time and static rico-scale imaging. TECHNICAL QUALITY: Adequate. COMPARISON: None. FINDINGS: Liver: The liver measures 17.9 cm. There is increased echogenicity consistent with fatty infiltration. The bile ducts are within normal limits. There is hepatic color flow. The direction of portal flow is hepatopetal. There is no demonstrated mass lesion. Gallbladder: The patient is status post cholecystectomy. Common Bile Duct (C.B.D.): The common bile duct measures 7.3 mm. Pancreas: Normal size of the head, body and tail of the pancreas. There is normal echogenicity of the pancreas. There is no demonstrated pancreatic mass or cyst. Right Kidney: Normal size of the right kidney. The right kidney measures 12 cm x 5.3 cm x 4.8 cm. Normal renal cortex. The right cortex measures 1.6 cm. There is no demonstrated renal mass or cyst. There is mild hydronephrosis of the right kidney. US/Abdomen Limited IMPRESSION: Fatty infiltration of the liver. Status post cholecystectomy. Mild right hydronephrosis. Electronically Signed: Michel Alfred, at 13:34 EDT , Service support ,
== END | disposition home or self-care (01) ==
LOC: US 08:11
PROVIDERS: PCP Family Medicine Geriatric Medicine; Referring Provider Family Medicine Geriatric Medicine; Visit Provider Family Medicine Geriatric Medicine
DX: R74.8 Abnormal levels of other serum enzymes (principal)
CPT/HCPCS: 76705

== ENCOUNTER → 2020-01-03 07:56 | Outpatient (CLI) | payer OTHER, SELFPAY ==
--- NOTE | 2020-01-06 08:53 | PFT ---
INTRODUCTION: The patient is a 49-year-old female that presents for pulmonary function studies secondary to a diagnosis of asthma. Respiratory therapy reports good patient effort. Bronchodilators were used during testing. INTERPRETATION: Forced expiration spirometry demonstrates the presence of a moderate large airways obstructive ventilatory defect. There was a robust response to aerosolized bronchodilators. Spirograms are of good quality and plateau gradually indicating slow emptying of the lungs. Body plethysmography was performed and revealed an elevated RV to 151% of predicted, indicative of underlying air trapping. Diffusing capacity by single breath CO is within normal limits at 77% of predicted. IMPRESSION: Partially reversible moderate large airways obstructive ventilatory defect with associated air trapping and preserved diffusing capacity.
== END ==
PROVIDERS: PCP Family Medicine Geriatric Medicine; Referring Provider Family Medicine Geriatric Medicine; Visit Provider Family Medicine Geriatric Medicine
DX: J45.909 Unspecified asthma, uncomplicated (principal)
CPT/HCPCS: 94060; 94726; 94729

== ENCOUNTER → 2020-01-10 09:35 | Outpatient (CLI) | payer OTHER, SELFPAY | PROVIDERS: PCP Family Medicine Geriatric Medicine; Referring Provider Family Medicine Geriatric Medicine; Visit Provider Family Medicine Geriatric Medicine | DX: R68.83 Chills (without fever) (principal) | CPT/HCPCS: 87633; 87635; C9803; U0003 ==

== ENCOUNTER → 2020-01-23 09:03 | Outpatient (CLI) | payer OTHER, SELFPAY ==
[2020-01-23 10:00] LABS: Absolute Lymphocyte Count 2.26 X10^3/uL (0.83-4.51); Absolute Neutrophil Count 3.1 X10^3/uL (2.0-7.7); Basophil# 0.04 X10^3/uL; Basophil% 0.7 % (0-1); Eosinophil# 0.15 X10^3/uL; Eosinophils% 2.5 % (0-5); Hematocrit 36.3 % (37-47); Hemoglobin 11.7 g/dL (12.0-15.0); Lymphocyte # 2.26 X10^3/ul (4.0); Lymphocyte % 36.9 % (19-41); Mean Corp Hgb Conc 32.2 g/dL (32-36); Mean Corpuscular Volume 83.6 fL (81-99); Mean Platelet Vol. 10.2 fl (6.2-12.0); Monocyte# 0.52 X10^3/uL; Monocyte% 8.5 % (0-10); NRBC Flagged by Analyzer 0 % (0-5); Neutrophil # 3.12 X10^3/uL (2.7-7.7); Neutrophil % 50.9 % (47-70); Platelet Count 255 K/mm3 (150-450); RBC Distribution Width SD 39.4 fl (35.1-43.9); Red Blood Count 4.34 M/mm3 (4.2-5.4); White Blood Count 6.1 K/mm3 (4.4-11.0)
[2020-01-26 09:36] LABS: Alternaria alternata <0.10 kU/L (Class 0); Aspergillus fumigatus <0.10 kU/L (Class 0); Bahia Grass <0.10 kU/L (Class 0); Bermuda Grass <0.10 kU/L (Class 0); Bluegrass, Kentucky 0.18 kU/L (Class 0/I); Cat Hair/Dander, Standard <0.10 kU/L (Class 0); Cedar, Mountain <0.10 kU/L (Class 0); Cladosporium herbarum <0.10 kU/L (Class 0); Cockroach, American <0.10 kU/L (Class 0); D farinae Mite 0.74 kU/L (Class II); D pteronyssinus 0.96 kU/L (Class II); Dog Epithelia <0.10 kU/L (Class 0); Elm, American White <0.10 kU/L (Class 0); Hazelnut Tree <0.10 kU/L (Class 0); Hickory, White <0.10 kU/L (Class 0); Johnson Grass <0.10 kU/L (Class 0); Maple/Box Elder <0.10 kU/L (Class 0); Mucor racemosus <0.10 kU/L (Class 0); Mugwort <0.10 kU/L (Class 0); Mulberry, White <0.10 kU/L (Class 0); Oak, White <0.10 kU/L (Class 0); Penicillium chrysogen <0.10 kU/L (Class 0); Pigweed, Rough <0.10 kU/L (Class 0); Plantain, English <0.10 kU/L (Class 0); Ragweed, Short/Common 0.22 kU/L (Class 0/I); Sheep Sorrel(Dock) <0.10 kU/L (Class 0); Stemphylium herbarum <0.10 kU/L (Class 0); Sweet Gum <0.10 kU/L (Class 0); Sycamore, American <0.10 kU/L (Class 0)
[2020-01-26 11:19] LABS: Nettle <0.10 kU/L (Class 0)
== END ==
PROVIDERS: PCP Family Medicine Geriatric Medicine; Referring Provider Internal Medicine Pulmonary Disease; Visit Provider Internal Medicine Pulmonary Disease
DX: T78.40XA Allergy, unspecified, initial encounter (principal); X58.XXXA Exposure to other specified factors, initial encounter
CPT/HCPCS: 36415; 85025; 86003

== ENCOUNTER → 2020-03-12 18:11 | Outpatient (CLI) | payer OTHER, SELFPAY | PROVIDERS: PCP Family Medicine Geriatric Medicine; Referring Provider Family Medicine Geriatric Medicine; Visit Provider Family Medicine Geriatric Medicine | DX: R06.89 Other abnormalities of breathing (principal) | CPT/HCPCS: 87635; C9803; U0003 ==

== ENCOUNTER → 2020-05-01 09:13 | Outpatient (CLI) | payer OTHER, SELFPAY ==
[2020-05-01 12:21] LABS: Absolute Lymphocyte Count 2.64 X10^3/uL (0.83-4.51); Absolute Neutrophil Count 3.6 X10^3/uL (2.0-7.7); Basophil# 0.04 X10^3/uL; Basophil% 0.6 % (0-1); Eosinophil# 0.12 X10^3/uL; Eosinophils% 1.7 % (0-5); Hemoglobin 12.4 g/dL (12.0-15.0); Lymphocyte # 2.64 X10^3/ul (4.0); Lymphocyte % 37.7 % (19-41); Mean Corp Hgb Conc 31.8 g/dL (32-36); Mean Corpuscular Hgb 26.2 pg (27.0-32.0); Mean Corpuscular Volume 82.3 fL (81-99); Mean Platelet Vol. 10.4 fl (6.2-12.0); Monocyte# 0.62 X10^3/uL; Monocyte% 8.9 % (0-10); NRBC Flagged by Analyzer 0 % (0-5); Neutrophil # 3.55 X10^3/uL (2.7-7.7); Neutrophil % 50.7 % (47-70); Platelet Count 247 K/mm3 (150-450); RBC Distribution Width CV 14.1 % (11.6-14.6); RBC Distribution Width SD 41.9 fl (35.1-43.9); Red Blood Count 4.74 M/mm3 (4.2-5.4)
[2020-05-01 12:35] LABS: Vitamin D,25 Hydroxy 17.4 ng/mL
[2020-05-01 12:59] LABS: ALB/GLOB Ratio 0.9 RATIO (0.9-2.4); AST(SGOT) 68 U/L (15-37); Alanine Aminotransfer ALT/SGPT 82 U/L (13-56); Albumin, Serum 3.7 g/dL (3.2-5.0); Alkaline Phosphatase 46 U/L (45-117); Anion Gap 8 (5-15); BUN 17 mg/dL (7-18); BUN/Creat Ratio 20.9 RATIO (10-20); Calcium,Total 10.3 mg/dL (8.5-10.1); Chloride 102 mmol/L (98-107); Creatinine, Serum 0.82 mg/dL (0.55-1.02); EST Glomerular Filtration Rate 79 mL/min (>60); Est Glom Filt Rate - Afr Amer 96 mL/min (>60); Globulin 4.1 g/dL (2.2-4.2); Glucose 213 mg/dL (74-106); Potassium 4.1 mmol/L (3.5-5.1); Protein, Total 7.8 g/dL (6.4-8.2); Sodium Level 136 mmol/L (136-145); Thyroid Stim Hormone (TSH) 3.53 uIU/mL (0.358-3.74)
== END ==
PROVIDERS: PCP Family Medicine Geriatric Medicine; Visit Provider Family Medicine Geriatric Medicine
DX: E11.65 Type 2 diabetes mellitus with hyperglycemia (principal); E55.9 Vitamin D deficiency, unspecified; I10 Essential (primary) hypertension
CPT/HCPCS: 36415; 80053; 82306; 84443; 85025

== ENCOUNTER → 2020-05-13 08:09 | Outpatient (CLI) | payer OTHER, SELFPAY ==
--- NOTE | 2020-05-13 08:11 | US_ITS ---
STUDY: ABDOMINAL ULTRASOUND - RIGHT UPPER QUADRANT REASON FOR VISIT: Female, 50 years old fatty liver TECHNIQUE: Ultrasound evaluation of the right upper quadrant was performed with real-time and static rico-scale imaging. TECHNICAL QUALITY: Adequate. COMPARISON: Comparison is made with prior examination dated 12/25/2019. FINDINGS: Liver: The liver is slightly enlarged and measures 18.5 cm. There is increased echogenicity consistent with fatty infiltration. The bile ducts are within normal limits. There is hepatic color flow. The direction of portal flow is hepatopetal. There is no demonstrated mass lesion. Gallbladder: The patient is status post cholecystectomy. Common Bile Duct (C.B.D.): The common bile duct measures 7 mm. Pancreas: Normal size of the head, body and tail of the pancreas. There is normal echogenicity of the pancreas. There is no demonstrated pancreatic mass or cyst. Right Kidney: Normal size of the right kidney. The right kidney measures 11.3 cm x 6.4 cm x 5 cm. Normal renal cortex. The right cortex measures 1.7 cm. There is no demonstrated renal mass or cyst. There is no right hydronephrosis. IMPRESSION: Mild hepatomegaly and diffuse fatty infiltration of the liver. Status post cholecystectomy. Electronically Signed: Michel Alfred MD at 9:37 EST , Service support , STUDY: ABDOMINAL ULTRASOUND - ELASTOGRAPHY REASON FOR VISIT: Female, 50 years old. Fatty infiltration of the liver. TECHNIQUE: Liver stiffness measurements were obtained on a FaceRig 85 ultrasound machine using a CA 1-7 probe following the SRU guidelines. 3 measurements were obtained using a 2-D-SWE method. The IQR/M was 9 % suggesting a quality data set. TECHNICAL QUALITY: Adequate. COMPARISON: Comparison is made with prior examination of 12/25/2019. FINDINGS: Liver: Fatty infiltration of the liver. Median liver stiffness measured 5.2 kPa. US/Abdomen Limited IMPRESSION: Liver stiffness measures 5.2 kPa compatible with F0 -- F1 Metavir score. Electronically Signed: Michel Alfred MD at 9:39 EST , Service support ,
== END ==
PROVIDERS: PCP Family Medicine Geriatric Medicine; Referring Provider Family Medicine Geriatric Medicine; Visit Provider Family Medicine Geriatric Medicine
DX: K76.0 Fatty (change of) liver, not elsewhere classified (principal)
CPT/HCPCS: 76705; 76981

== ENCOUNTER 2020-05-18 02:00 | Emergency (ER) | payer OTHER, SELFPAY ==
[2020-05-18 02:01] VITALS: BP 171/96; PULSE 88; RESP 18; TEMP 36.5; O2SAT 97; BMI 43.6
[2020-05-18] MEDS: DiphenhydrAMINE 50 MG/ML Syringe IV (02:18)
[2020-05-18] MEDS: Ketorolac 30 MG/ML Syringe IV (02:19)
--- NOTE | 2020-05-18 02:27 | ED.DCSUM_ITS ---
History of Present Illness Chief Complaint: Headache Informant: Patient, Family Narrative: 50-year-old female tells me she has a right frontal headache of approximately 3- hour duration. She notes nausea and vomiting. No fevers. The patient denies any phonophobia or photophobia. No neurologic deficits. When asked if she was feeling well earlier in the day she tells me know that her head was hurting but she also tells me the headache began 3 hours ago. She tells me she has a history of migraines and has received Toradol in the past. She tried Tylenol with no relief. - Past Medical History (1) Asthma Status: Chronic (2) Diabetes Status: Chronic Comment: diabetic nephropathy (3) Morbid obesity with BMI of 45.0-49.9, adult Status: Chronic (4) Subclinical hypothyroidism Status: Chronic Past Medical History - Allergies and Home Meds Allergies/Adverse Reactions: Allergies peanut Allergy (Verified 05/18/20 02:03) Anaphylaxis shellfish derived Allergy (Verified 05/18/20 02:03) Anaphylaxis codeine Adverse Reaction (Verified 05/18/20 02:03) Rash prednisone Adverse Reaction (Verified 05/18/20 02:03) Other sertraline HCl [From Zoloft] Adverse Reaction (Verified 05/18/20 02:03) Other NUTS Allergy (Uncoded 08/02/19 13:58) Anaphylaxis Primary Care Physician: Phu Espinoza Chi, MD [Primary Care Provider] - 1 Week Past Medical History: - - Migraines Surgical History: no surgical history Lives: Spouse/ Significant Other Smoking Status: Never smoker Alcohol: None Drugs: None - Family History Maternal Family History: Reports: Heart Disease Offspring Family History: Reports: Clotting Disorder, Heart Disease Review of Systems General: Denies: Chills, Fever, Sweats Eyes: Denies: Visual changes - bilaterally, Diplopia ENT: Denies: Rhinorrhea, Sore throat Cardiovascular: Denies: Chest pain, Palpitations Respiratory: Denies: Dyspnea, Cough, Dyspnea on exertion Gastrointestinal: Reports: Nausea, Vomiting. Denies: Abdominal pain, Diarrhea, Melena, Hematochezia Genitourinary: Denies: Dysuria, Hematuria, Frequency Musculoskeletal: Denies: Back pain, Extremity Pain Skin: Denies: Rash, Wounds Neurological: Reports: Headache. Denies: Weakness, Numbness Physical Exam Vital Signs/Narrative: Vital Signs Temp Pulse Resp BP Pulse Ox 05/18/20 02:01 97.7 F L 88 18 171/96 H 97 Inital Vital Signs reviewed: Yes General: Well nourished, Well developed, Obese, No Acute Distress, - - Patient is moving all 4 extremities. She does not appear to have any light or noise sensitivities based on the loud noises she is making. Head: Normocephalic, Atraumatic Eyes: Perrl, EOMI ENT: Moist mucous membranes, No rhinorrhea Neck: Supple, Nontender Cardiovascular: Regular rate, Regular rhythm, No murmurs Respiratory: No distress, CTA bilaterally, Chest nontender Abdomen: Soft, Nontender, Nondistended, Normal bowel sounds Back: Nontender, Normal Inspection Extremities: Nontender, No edema Skin: Normal color, No rash Neurological: Alert, Oriented x3, Cranial nerves II-XII grossly intact, Normal Strength, Normal Sensation Diagnostic/Tx/Re-eval - Medical Decision Making Patient was given a dose of Toradol as needed Benadryl. Patient was asleep woke up stating that her head was hurting more. She received Toradol and Ativan. She was sleeping went to the bathroom and had reported emesis but very little in her emesis basin. Gave her a dose of Phenergan and Imitrex. She continues to sleep. At this point patient will be discharged home with a prescription for Phenergan and instructions to rest follow-up with primary care return if worsening or concerns ED Disposition - Plan for ED Patient: Disposition: Home or Assisted Living Diagnosis: Headache Instructions: ED Headache Unspecified Prescriptions: proMETHazine tablet [Phenergan] 25 mg PO Q6H PRN PRN #10 tab PRN Reason: Nausea Prescription Printed Referrals: Phu Espinoza Chi, MD [Primary Care Provider] - 1 Week
[2020-05-18] MEDS: proCHLORPERazine 10 MG/2 ML Vial IV (02:39)
[2020-05-18] MEDS: LORazepam 2 MG/ML Syringe 1 MG IV (03:09)
[2020-05-18] MEDS: Ketorolac 15 MG/ML Vial IV (03:12)
[2020-05-18 04:00] VITALS: RESP 16
[2020-05-18] MEDS: SUMAtriptan 6 MG/0.5 ML Vial SC (05:05)
[2020-05-18] MEDS: proMETHazine 25 MG/ML Syringe 12.5 MG IV (05:06)
[2020-05-18 05:12] VITALS: BP 164/80; PULSE 120; RESP 16; O2SAT 96
[2020-05-18 06:40] VITALS: PULSE 114; RESP 18; O2SAT 95
== END 2020-05-18 06:40 | disposition home or self-care (01) ==
PROVIDERS: Emergency Provider Emergency Medicine; PCP Family Medicine Geriatric Medicine
DX: R51.9 Headache, unspecified (principal); J45.909 Unspecified asthma, uncomplicated; E03.9 Hypothyroidism, unspecified; E11.21 Type 2 diabetes mellitus with diabetic nephropathy; E66.01 Morbid (severe) obesity due to excess calories; Z82.49 Family history of ischemic heart disease and other diseases of the circulatory system; Z68.42 Body mass index [BMI] 45.0-49.9, adult; Z88.5 Allergy status to narcotic agent
CPT/HCPCS: 96372; 96374; 96375; 96376; 99283; J7030; J3030

== ENCOUNTER → 2020-06-22 11:11 | Outpatient (CLI) | payer OTHER, SELFPAY ==
[2020-06-22 12:32] LABS: Absolute Lymphocyte Count 2.64 X10^3/uL (0.83-4.51); Absolute Neutrophil Count 4.6 X10^3/uL (2.0-7.7); Basophil# 0.03 X10^3/uL; Basophil% 0.4 % (0-1); Eosinophils% 1.2 % (0-5); Hematocrit 40.2 % (37-47); Hemoglobin 12.9 g/dL (12.0-15.0); Lymphocyte # 2.64 X10^3/ul (4.0); Lymphocyte % 32.9 % (19-41); Mean Corp Hgb Conc 32.1 g/dL (32-36); Mean Corpuscular Hgb 26.5 pg (27.0-32.0); Mean Corpuscular Volume 82.5 fL (81-99); Mean Platelet Vol. 10.9 fl (6.2-12.0); Monocyte# 0.64 X10^3/uL; NRBC Flagged by Analyzer 0 % (0-5); Neutrophil % 57.3 % (47-70); Platelet Count 281 K/mm3 (150-450); RBC Distribution Width CV 13.6 % (11.6-14.6); RBC Distribution Width SD 40.7 fl (35.1-43.9); Red Blood Count 4.87 M/mm3 (4.2-5.4)
[2020-06-22 12:42] LABS: Vitamin D,25 Hydroxy 18.3 ng/mL
[2020-06-22 12:45] LABS: AST(SGOT) 29 U/L (15-37); Alanine Aminotransfer ALT/SGPT 56 U/L (13-56); Albumin, Serum 3.9 g/dL (3.2-5.0); Alkaline Phosphatase 46 U/L (45-117); Anion Gap 5 (5-15); BUN 14 mg/dL (7-18); BUN/Creat Ratio 13.6 RATIO (10-20); Calcium,Total 9.5 mg/dL (8.5-10.1); Chloride 101 mmol/L (98-107); Creatinine, Serum 1.03 mg/dL (0.55-1.02); EST Glomerular Filtration Rate 60 mL/min (>60); Est Glom Filt Rate - Afr Amer 73 mL/min (>60); Glucose 298 mg/dL (74-106); Potassium 4.1 mmol/L (3.5-5.1); Protein, Total 7.9 g/dL (6.4-8.2); Sodium Level 137 mmol/L (136-145); Thyroid Stim Hormone (TSH) 2.72 uIU/mL (0.358-3.74)
== END ==
PROVIDERS: PCP Family Medicine Geriatric Medicine; Visit Provider Family Medicine Geriatric Medicine
DX: E11.65 Type 2 diabetes mellitus with hyperglycemia (principal); I10 Essential (primary) hypertension; E55.9 Vitamin D deficiency, unspecified
CPT/HCPCS: 36415; 80053; 82306; 84443; 85025

== ENCOUNTER → 2020-09-21 10:55 | Outpatient (CLI) | payer OTHER, SELFPAY ==
[2020-09-21 12:24] LABS: Absolute Neutrophil Count 4.1 X10^3/uL (2.0-7.7); Basophil# 0.06 X10^3/uL; Basophil% 0.8 % (0-1); Eosinophil# 0.14 X10^3/uL; Eosinophils% 1.8 % (0-5); Hematocrit 37.6 % (37-47); Lymphocyte % 35.5 % (19-41); Mean Corp Hgb Conc 31.9 g/dL (32-36); Mean Corpuscular Hgb 25.8 pg (27.0-32.0); Mean Corpuscular Volume 80.9 fL (81-99); Mean Platelet Vol. 10.4 fl (6.2-12.0); Monocyte% 7.9 % (0-10); NRBC Flagged by Analyzer 0 % (0-5); Neutrophil # 4.08 X10^3/uL (2.7-7.7); Neutrophil % 53.6 % (47-70); Platelet Count 275 K/mm3 (150-450); RBC Distribution Width CV 13.1 % (11.6-14.6); RBC Distribution Width SD 37.9 fl (35.1-43.9); Red Blood Count 4.65 M/mm3 (4.2-5.4); White Blood Count 7.6 K/mm3 (4.4-11.0)
[2020-09-21 12:48] LABS: ALB/GLOB Ratio 0.9 RATIO (0.9-2.4); AST(SGOT) 26 U/L (15-37); Alanine Aminotransfer ALT/SGPT 41 U/L (13-56); Albumin, Serum 3.6 g/dL (3.2-5.0); Alkaline Phosphatase 65 U/L (45-117); Anion Gap 5 (5-15); BUN 15 mg/dL (7-18); BUN/Creat Ratio 16.1 RATIO (10-20); Calcium,Total 8.9 mg/dL (8.5-10.1); Chloride 102 mmol/L (98-107); Creatinine, Serum 0.93 mg/dL (0.55-1.02); EST Glomerular Filtration Rate 68 mL/min (>60); Est Glom Filt Rate - Afr Amer 82 mL/min (>60); Globulin 4.1 g/dL (2.2-4.2); Glucose 287 mg/dL (74-106); Potassium 4.3 mmol/L (3.5-5.1); Protein, Total 7.7 g/dL (6.4-8.2); Sodium Level 137 mmol/L (136-145); Thyroid Stim Hormone (TSH) 3.35 uIU/mL (0.358-3.74)
== END ==
PROVIDERS: PCP Family Medicine Geriatric Medicine; Visit Provider Family Medicine Geriatric Medicine
DX: E11.65 Type 2 diabetes mellitus with hyperglycemia (principal); I10 Essential (primary) hypertension
CPT/HCPCS: 36415; 80053; 84443; 85025

== ENCOUNTER → 2020-12-18 10:55 | Outpatient (CLI) | payer OTHER, SELFPAY | PROVIDERS: PCP Family Medicine Geriatric Medicine; Referring Provider Family Medicine Geriatric Medicine; Visit Provider Family Medicine Geriatric Medicine | DX: R68.83 Chills (without fever) (principal) | CPT/HCPCS: 87633; 87635; C9803; U0005; U0003 ==

== ENCOUNTER → 2020-12-22 09:44 | Outpatient (CLI) | payer OTHER, SELFPAY ==
[2020-12-22 12:31] LABS: Absolute Neutrophil Count 8.2 X10^3/uL (2.0-7.7); Basophil# 0.06 X10^3/uL; Basophil% 0.5 % (0-1); Eosinophil# 0.17 X10^3/uL; Eosinophils% 1.3 % (0-5); Hematocrit 37.5 % (37-47); Hemoglobin 11.9 g/dL (12.0-15.0); Lymphocyte % 25.2 % (19-41); Mean Corp Hgb Conc 31.7 g/dL (32-36); Mean Corpuscular Hgb 26.1 pg (27.0-32.0); Mean Corpuscular Volume 82.2 fL (81-99); Mean Platelet Vol. 10.1 fl (6.2-12.0); Monocyte% 7.9 % (0-10); NRBC Flagged by Analyzer 0 % (0-5); Neutrophil # 8.16 X10^3/uL (2.7-7.7); Neutrophil % 64.2 % (47-70); Platelet Count 303 K/mm3 (150-450); RBC Distribution Width CV 13.7 % (11.6-14.6); RBC Distribution Width SD 40.2 fl (35.1-43.9); Red Blood Count 4.56 M/mm3 (4.2-5.4); White Blood Count 12.7 K/mm3 (4.4-11.0)
[2020-12-22 13:11] LABS: ALB/GLOB Ratio 0.8 RATIO (0.9-2.4); AST(SGOT) 33 U/L (15-37); Alanine Aminotransfer ALT/SGPT 59 U/L (13-56); Albumin, Serum 3.5 g/dL (3.2-5.0); Alkaline Phosphatase 54 U/L (45-117); Anion Gap 9 (5-15); BUN 23 mg/dL (7-18); BUN/Creat Ratio 27.9 RATIO (10-20); Calcium,Total 9.6 mg/dL (8.5-10.1); Chloride 103 mmol/L (98-107); Creatinine, Serum 0.82 mg/dL (0.55-1.02); EST Glomerular Filtration Rate 78 mL/min (>60); Est Glom Filt Rate - Afr Amer 94 mL/min (>60); Globulin 4.3 g/dL (2.2-4.2); Glucose 88 mg/dL (74-106); Potassium 3.8 mmol/L (3.5-5.1); Protein, Total 7.8 g/dL (6.4-8.2); Sodium Level 141 mmol/L (136-145); Thyroid Stim Hormone (TSH) 4.17 uIU/mL (0.358-3.74)
== END ==
PROVIDERS: PCP Family Medicine Geriatric Medicine; Visit Provider Family Medicine Geriatric Medicine
DX: E11.65 Type 2 diabetes mellitus with hyperglycemia (principal); I10 Essential (primary) hypertension
CPT/HCPCS: 36415; 80053; 84443; 85025

== ENCOUNTER → 2020-12-23 08:36 | Outpatient (CLI) | payer OTHER, SELFPAY | PROVIDERS: PCP Family Medicine Geriatric Medicine; Visit Provider Family Medicine Geriatric Medicine | DX: E24.9 Cushing's syndrome, unspecified (principal) | CPT/HCPCS: 36415; 82533 ==

== ENCOUNTER → 2020-12-30 08:23 | Outpatient (CLI) | payer OTHER, SELFPAY | PROVIDERS: PCP Family Medicine Geriatric Medicine; Referring Provider Family Medicine Geriatric Medicine; Visit Provider Family Medicine Geriatric Medicine | DX: E11.65 Type 2 diabetes mellitus with hyperglycemia (principal) | CPT/HCPCS: 36415; 82533 ==

== ENCOUNTER → 2021-01-07 08:42 | Outpatient (CLI) | payer OTHER, SELFPAY | PROVIDERS: PCP Family Medicine Geriatric Medicine; Referring Provider Family Medicine Geriatric Medicine; Visit Provider Family Medicine Geriatric Medicine | DX: E11.65 Type 2 diabetes mellitus with hyperglycemia (principal) | CPT/HCPCS: 36415; 82533 ==

== ENCOUNTER 2021-02-03 17:42 | Emergency (ER) | payer OTHER, SELFPAY ==
[2021-02-03 17:43] VITALS: BP 158/94; PULSE 102; RESP 18; TEMP 36.6; O2SAT 97; BMI 45.4
[2021-02-03 18:01] VITALS: BP 158/94; PULSE 102; RESP 16; RESP 18; TEMP 36.6; O2SAT 97
--- NOTE | 2021-02-03 18:57 | EX.ED.DYSGE1 ---
HPI History of Present Illness Chief Complaint: Wound Informant: patient Onset/Context/Timing Onset: Yesterday Context: Sudden Onset Timing: Continuous Quality: Pain, redness and red streak Location: Heel/distal posterior leg Current Severity: Mild Maximum Severity: Mild Worsened by: Patient has many cracks in her skin Relieved by: Nothing Associated Symptoms Associated Symptoms: Documented temperature to 100 degrees and rigors Narrative Narrative: Is a morbidly obese woman with history of diabetes, hypertension and hypothyroidism who was sent from Dr. Corona's office because of cellulitis with lymphangitis. She states she received an IM dose of antibiotic. She does not know the name. Prior similar symptoms: No Recent Illness/Hospitalization: No PFSH PFSH Medical History Depression High cholesterol Hypertension Migraines Psoriatic arthritis Home Medications albuterol sulfate [Ventolin HFA] 1 puff INHALATION Q4H PRN PRN 12/01/13 [History Last Taken 02/02/19] epinephrine 0.3 mg IM PRN PRN #2 syringe 12/01/13 [Rx Last Taken 02/02/19] metformin [Glucophage XR] 1,000 mg PO BID 12/01/13 [History Last Taken 02/03/19] paroxetine HCl [Paxil] 40 mg PO DAILY 12/01/13 [History Last Taken 02/02/19] zolpidem [Ambien] 5 mg PO QHS 12/01/13 [History Last Taken 02/02/19] insulin glargine-lixisenatide 80 units SQ DAILY 11/18/18 [History Last Taken 02/02/19] epinephrine 0.3 mg IJ X1 PRN #1 auto.injct 02/03/19 [Rx Last Taken Unknown] apremilast [Otezla] 30 mg PO BID 02/03/21 [History Last Taken Unknown] atorvastatin 40 mg PO DAILY 02/03/21 [History Last Taken Unknown] cetirizine 10 mg PO DAILY 02/03/21 [History Last Taken Unknown] doxycycline monohydrate 100 mg PO BID #14 capsule 02/03/21 [Rx Last Taken Unknown] lisinopril 40 mg PO DAILY 02/03/21 [History Last Taken Unknown] pioglitazone 30 mg PO DAILY 02/03/21 [History Last Taken Unknown] Allergy/AdvReac Type Severity Reaction Status Date / Time peanut Allergy Anaphylaxis Verified 02/03/21 17:45 shellfish derived Allergy Anaphylaxis Verified 02/03/21 17:45 codeine AdvReac Rash Verified 02/03/21 17:45 prednisone AdvReac Other Verified 02/03/21 17:45 sertraline HCl [From Zoloft] AdvReac Other Verified 02/03/21 17:45 NUTS Allergy Anaphylaxis Uncoded 02/03/21 17:45 Surgical History History of cholecystectomy Social History (Updated 02/03/21 @ 18:[address] Jose Smyth MD) household members: none Smoking Status: Never smoker substance use type: does not use ROS ROS ED Constitutional Constitutional ED: Reports chills and fever(s); Denies sweats or weight loss Eyes Eyes: Denies blurry vision, change in vision or diplopia ENT ENT ED: Denies ear pain, rhinorrhea or sore throat Cardiovascular Cardiovascular: Denies chest pain or palpitations Respiratory/Chest Respiratory/Chest: Denies cough, dyspnea or dyspnea on exertion Gastrointestinal Gastrointestinal: Denies abdominal pain, diarrhea, nausea or vomiting Genitourinary Genitourinary ED: Denies dysuria, hematuria or urinary frequency Musculoskeletal Musculoskeletal: Denies arthralgias, myalgias or neck pain Integumentary Reports Abrasions and rash; Denies abscess Neurologic Neurologic: Denies headache(s), paresthesias or weakness Endocrine Endocrinology: Denies polydipsia, polyphagia or polyuria EXAM Physical Exam Const Vital Signs: 02/03/21 17:43 02/03/21 18:01 02/03/21 19:45 Temperature 97.9 F 97.9 F 97.9 F Temperature Source Temporal Temporal Temporal Pulse Rate 102 H 102 H 102 H Respiratory Rate 18 18 18 Blood Pressure 158/94 H 158/94 H 158/94 H Blood Pressure Mean 115 115 115 Pulse Ox 97 97 97 Oxygen Delivery Method Room Air Room Air Room Air Positive well nourished, well developed, obese and unkempt General Appearance ED: unkempt, well developed and NAD; Negative for pallor Nutritional Appearance: obese HEENT HEENT Narrative: Head is atraumatic normocephalic. Ears normal. Nares patent. Eyes PERRL and EOMs intact bilaterally General Eye ED: Negative for pale conjunctiva or scleral icterus Neck no lymphadenopathy, supple and no JVD Resp normal respiratory effort and clear to auscultation bilaterally Cardio regular rhythm, S1 normal heart sound, S2 normal heart sound and no murmurs Rate: tachycardic GI normal to inspection, nondistended, normoactive bowel sounds, non-tender and non-distended Palpation: soft Back/Spine no CVA tenderness Cervical Spine: Negative for cervical spine tenderness Thoracic Spine / Upper Back: Negative for thoracic spinal tenderness or paraspinal muscle tenderness Neuro oriented x3, CN's II-XII intact bilaterally and no sensory deficits noted Sensorium / Orientation: alert Motor Exam: strength 5/5 throughout Psych mental status grossly normal Appearance: unkempt Skin no rashes or lesions noted and No no wounds General Skin Exam: Negative for jaundice or pallor Rashes: rashes noted Trauma: abrasion MDM MDM MDM Narrative Medical decision making narrative: Patient has evidence of cellulitis with lymphangitis. Blood work was obtained. Antibiotics were not started in the emergency pharmacy and she received Rocephin IM prior to coming to the emergency department. Lab Data Attestation: I reviewed the patient's lab results. Lab results narrative: CBC and differential are normal. Comprehensive metabolic panel reveals elevated glucose at 234 with a normal CO2 and anion gap. BUN and creatinine are slightly elevated with a BUN to creatinine ratio 20.4 and a GFR of 57. Patient only has 1 SIRS criteria. Therefore, patient does not have sepsis. Therefore patient does not require IV antibiotics or admission. Patient was discharged on doxycycline for streptococcal and staphylococcal coverage. Labs: Laboratory Results - last 24 hr 02/03/21 02/03/21 19:25 19:25 WBC 10.9 RBC 4.37 Hgb 11.7 L Hct 34.8 L MCV 79.6 L MCH 26.8 L MCHC 33.6 RDW Std Deviation 39.1 RDW Coeff of Libby 13.6 Plt Count 223 MPV 9.7 Immature Gran % (Auto) 0.500 Neut % (Auto) 60.9 Lymph % (Auto) 28.1 Canadian % (Auto) 8.8 Eos % (Auto) 1.4 Baso % (Auto) 0.3 Absolute Neuts (auto) 6.7 Absolute Lymphs (auto) 3.07 Nucleated RBC % 0 Sodium 137 Potassium 3.8 Chloride 102 Carbon Dioxide 27.0 Anion Gap 8 BUN 22 H Creatinine 1.08 H Estim Creat Clear Calc 60.60 Est GFR (MDRD) Af Amer 69 Est GFR (MDRD) Non-Af 57 L BUN/Creatinine Ratio 20.4 H Glucose 234 H Calcium 8.6 Total Bilirubin 0.60 AST 32 ALT 47 Alkaline Phosphatase 60 Total Protein 7.4 Albumin 3.2 Globulin 4.2 Albumin/Globulin Ratio 0.8 L Discharge Plan Triage Chief Complaint: Wound ED Provider: Jose Smyth Dx/Rx/DC Orders Clinical Impression: Cellulitis of right lower extremity, Lymphangitis of lower extremity Instructions: ED Cellulitis, ED Lymphangitis Prescriptions: New doxycycline monohydrate 100 MG capsule 100 mg PO BID Qty: 14 RF: 0 No Action paroxetine HCl [Paxil] 30 MG tablet 40 mg PO DAILY RF: 0 zolpidem [Ambien] 10 MG tablet 5 mg PO QHS RF: 0 albuterol sulfate [Ventolin HFA] 1 INHALER inhaler 1 puff inhalation Q4H PRN PRN (Reason: Shortness Of Breath) RF: 0 metformin [Glucophage XR] 750 MG tablet extended release 24 hr 1,000 mg PO BID RF: 0 epinephrine 0.3 MG syringe 0.3 mg IM PRN PRN (Reason: Anaphylaxis) Qty: 2 RF: 0 insulin glargine-lixisenatide 3 ML insulin pen 80 units SQ DAILY RF: 0 epinephrine 0.3 MG/0.3 ML auto-injector 0.3 mg IJ X1 PRN (Reason: Anaphylaxis) Qty: 1 RF: 0 atorvastatin 40 mg Tablet 40 mg PO DAILY RF: 0 cetirizine 10 mg Tablet 10 mg PO DAILY RF: 0 pioglitazone 30 mg Tablet 30 mg PO DAILY RF: 0 lisinopril 40 mg Tablet 40 mg PO DAILY RF: 0 Otezla 30 mg Tablet 30 mg PO BID RF: 0 Primary Care Provider: Phu Espinoza Chi Referrals: Phu Espinoza Chi, MD [Primary Care Provider] - 3-5 Days if not improving Disposition Disposition: Home, Self Care
[2021-02-03 19:45] VITALS: BP 158/94; PULSE 102; RESP 18; TEMP 36.6; O2SAT 97
[2021-02-03 19:54] LABS: Absolute Lymphocyte Count 3.07 X10^3/uL (0.83-4.51); Absolute Neutrophil Count 6.7 X10^3/uL (2.0-7.7); Basophil# 0.03 X10^3/uL; Basophil% 0.3 % (0-1); Eosinophil# 0.15 X10^3/uL; Eosinophils% 1.4 % (0-5); Hematocrit 34.8 % (37-47); Hemoglobin 11.7 g/dL (12.0-15.0); Lymphocyte # 3.07 X10^3/ul (0.83-4.51); Lymphocyte % 28.1 % (19-41); Mean Corp Hgb Conc 33.6 g/dL (32-36); Mean Corpuscular Hgb 26.8 pg (27.0-32.0); Mean Corpuscular Volume 79.6 fL (81-99); Mean Platelet Vol. 9.7 fl (6.2-12.0); Monocyte# 0.96 X10^3/uL; Monocyte% 8.8 % (0-10); NRBC Flagged by Analyzer 0 % (0-5); Neutrophil # 6.68 X10^3/uL (2.7-7.7); Neutrophil % 60.9 % (47-70); Platelet Count 223 K/mm3 (150-450); RBC Distribution Width CV 13.6 % (11.6-14.6); RBC Distribution Width SD 39.1 fl (35.1-43.9); Red Blood Count 4.37 M/mm3 (4.2-5.4); White Blood Count 10.9 K/mm3 (4.4-11.0)
[2021-02-03 20:11] LABS: ALB/GLOB Ratio 0.8 RATIO (0.9-2.4); AST(SGOT) 32 U/L (15-37); Alanine Aminotransfer ALT/SGPT 47 U/L (13-56); Albumin, Serum 3.2 g/dL (3.2-5.0); Alkaline Phosphatase 60 U/L (45-117); Anion Gap 8 (5-15); BUN 22 mg/dL (7-18); BUN/Creat Ratio 20.4 RATIO (10-20); Calcium,Total 8.6 mg/dL (8.5-10.1); Chloride 102 mmol/L (98-107); Creatinine, Serum 1.08 mg/dL (0.55-1.02); EST Glomerular Filtration Rate 57 mL/min (>60); Est Glom Filt Rate - Afr Amer 69 mL/min (>60); Globulin 4.2 g/dL (2.2-4.2); Glucose 234 mg/dL (74-106); Potassium 3.8 mmol/L (3.5-5.1); Protein, Total 7.4 g/dL (6.4-8.2); Sodium Level 137 mmol/L (136-145)
[2021-02-03 20:19] LABS: Lactic Acid 1.7 mmol/L (0.4-1.9)
== END 2021-02-03 20:35 | disposition home or self-care (01) ==
PROVIDERS: Emergency Provider Emergency Medicine; PCP Family Medicine Geriatric Medicine
DX: L03.115 Cellulitis of right lower limb (principal); E03.9 Hypothyroidism, unspecified; E11.9 Type 2 diabetes mellitus without complications; E78.00 Pure hypercholesterolemia, unspecified; I10 Essential (primary) hypertension; L40.50 Arthropathic psoriasis, unspecified; E66.01 Morbid (severe) obesity due to excess calories; F32.A Depression, unspecified; Z79.4 Long term (current) use of insulin; Z79.52 Long term (current) use of systemic steroids
CPT/HCPCS: 80053; 83605; 85025; 99283; J7030

== ENCOUNTER → 2021-02-03 18:29 | Outpatient (CLI) | payer OTHER, SELFPAY ==
[2021-02-03 21:37] LABS: M R Staph aureus DNA By PCR POSITIVE (Negative); Probe Check PASS; Staph aureus DNA By PCR POSITIVE (Negative)
== END ==
PROVIDERS: PCP Family Medicine Geriatric Medicine; Visit Provider Family Medicine Geriatric Medicine
DX: T07.XXXA Unspecified multiple injuries, initial encounter (principal)
CPT/HCPCS: 87070; 87186; 87205; 87640

== ENCOUNTER → 2021-02-04 09:58 | Outpatient (CLI) | payer OTHER, SELFPAY ==
--- NOTE | 2021-02-04 11:54 | RAD_ITS ---
STUDY: X-RAY - RIGHT CALCANEUS REASON FOR EXAM: Female, 50 years old. Foot pain. TECHNIQUE: 2 view(s) of the calcaneus were obtained. COMPARISON: None. FINDINGS: Superior and inferior calcaneal spurs. Mild arthrosis of the tibiotalar joint, subtalar joint and talonavicular joint. RAD/Calcaneus min 2 Views IMPRESSION: Calcaneal spurs with osteoarthritic changes as described. No acute finding. Electronically Signed: Ravi Soto MD at 13:07 EST , Service support ,
== END ==
PROVIDERS: PCP Family Medicine Geriatric Medicine; Referring Provider Family Medicine Geriatric Medicine; Visit Provider Family Medicine Geriatric Medicine
DX: L03.119 Cellulitis of unspecified part of limb (principal); M79.609 Pain in unspecified limb
CPT/HCPCS: 36415; 73650; 87040

== ENCOUNTER → 2021-02-08 10:25 | Outpatient (CLI) | payer OTHER, SELFPAY ==
[2021-02-08 12:41] LABS: Anion Gap 6 (5-15); BUN 14 mg/dL (7-18); BUN/Creat Ratio 13.7 RATIO (10-20); Calcium,Total 9.3 mg/dL (8.5-10.1); Chloride 104 mmol/L (98-107); Creatinine, Serum 1.02 mg/dL (0.55-1.02); EST Glomerular Filtration Rate 61 mL/min (>60); Est Glom Filt Rate - Afr Amer 74 mL/min (>60); Glucose 183 mg/dL (74-106); Potassium 4.4 mmol/L (3.5-5.1); Sodium Level 136 mmol/L (136-145)
== END ==
PROVIDERS: PCP Family Medicine Geriatric Medicine; Visit Provider Family Medicine Geriatric Medicine
DX: I10 Essential (primary) hypertension (principal)
CPT/HCPCS: 36415; 80048

== ENCOUNTER → 2021-03-03 10:33 | Outpatient (CLI) | payer OTHER, SELFPAY ==
--- NOTE | 2021-03-03 10:45 | RAD_ITS ---
STUDY: X-RAY CHEST REASON FOR EXAM: Female, 50 years old. COUGH TECHNIQUE: PA and lateral views of the chest. COMPARISON: Comparison is made with prior study 11/19/2019. FINDINGS: Mild increased linear markings in the right middle lobe. This may represent either atelectasis and/or early infiltrate. There is no demonstrated pleural abnormality. Normal size heart. Normal mediastinum and felisa. Normal visualized pulmonary arteries. Normal visualized aortic arch and descending thoracic aorta. Normal visualized thoracic spine. Normal visualized ribs, clavicles, and shoulders. There is no demonstrated abnormality of the visualized soft tissue structures of the upper abdomen. RAD/Chest PA and Lateral IMPRESSION: Mild degree of increased linear markings in the right middle lobe. This is suggestive of either atelectasis and/or early infiltrate. Electronically Signed: Michel Alfred MD at 11:05 EST , Service support ,
[2021-03-03 12:08] LABS: Thyroid Stim Hormone (TSH) 5.38 uIU/mL (0.358-3.74)
== END ==
PROVIDERS: PCP Family Medicine Geriatric Medicine; Referring Provider Family Medicine Geriatric Medicine; Visit Provider Family Medicine Geriatric Medicine
DX: E03.9 Hypothyroidism, unspecified (principal); R05.9 Cough, unspecified
CPT/HCPCS: 36415; 71046; 84443

== ENCOUNTER → 2021-03-10 12:03 | Outpatient (CLI) | payer OTHER, SELFPAY ==
[2021-03-10 12:29] LABS: Absolute Lymphocyte Count 4.46 X10^3/uL (0.83-4.51); Absolute Neutrophil Count 6.7 X10^3/uL (2.0-7.7); Basophil# 0.06 X10^3/uL; Basophil% 0.5 % (0-1); Eosinophil# 0.19 X10^3/uL; Eosinophils% 1.5 % (0-5); Hematocrit 39.6 % (37-47); Hemoglobin 13.1 g/dL (12.0-15.0); Lymphocyte # 4.46 X10^3/ul (0.83-4.51); Lymphocyte % 35.8 % (19-41); Mean Corp Hgb Conc 33.1 g/dL (32-36); Mean Corpuscular Hgb 26.3 pg (27.0-32.0); Mean Corpuscular Volume 79.5 fL (81-99); Mean Platelet Vol. 10.1 fl (6.2-12.0); Monocyte# 0.94 X10^3/uL; Monocyte% 7.5 % (0-10); NRBC Flagged by Analyzer 0 % (0-5); Neutrophil % 53.8 % (47-70); Platelet Count 283 K/mm3 (150-450); RBC Distribution Width CV 13.7 % (11.6-14.6); RBC Distribution Width SD 39.1 fl (35.1-43.9); Red Blood Count 4.98 M/mm3 (4.2-5.4); White Blood Count 12.5 K/mm3 (4.4-11.0)
[2021-03-10 12:47] LABS: ALB/GLOB Ratio 0.8 RATIO (0.9-2.4); AST(SGOT) 41 U/L (15-37); Alanine Aminotransfer ALT/SGPT 82 U/L (13-56); Albumin, Serum 3.5 g/dL (3.2-5.0); Alkaline Phosphatase 67 U/L (45-117); Anion Gap 9 (5-15); BUN 19 mg/dL (7-18); BUN/Creat Ratio 18.6 RATIO (10-20); Calcium,Total 9.9 mg/dL (8.5-10.1); Chloride 101 mmol/L (98-107); Creatinine, Serum 1.02 mg/dL (0.55-1.02); EST Glomerular Filtration Rate 61 mL/min (>60); Est Glom Filt Rate - Afr Amer 74 mL/min (>60); Globulin 4.3 g/dL (2.2-4.2); Glucose 272 mg/dL (74-106); Potassium 3.9 mmol/L (3.5-5.1); Protein, Total 7.8 g/dL (6.4-8.2); Sodium Level 138 mmol/L (136-145); Thyroid Stim Hormone (TSH) 4.63 uIU/mL (0.358-3.74)
== END ==
PROVIDERS: PCP Family Medicine Geriatric Medicine; Visit Provider Family Medicine Geriatric Medicine
DX: I10 Essential (primary) hypertension (principal); E11.65 Type 2 diabetes mellitus with hyperglycemia
CPT/HCPCS: 36415; 80053; 84443; 85025

== ENCOUNTER 2021-04-14 09:48 | Outpatient (CLI) | payer BC, SELFPAY ==
[2021-04-14 12:04] LABS: Absolute Lymphocyte Count 3.45 X10^3/uL (0.83-4.51); Absolute Neutrophil Count 6.7 X10^3/uL (2.0-7.7); Basophil# 0.05 X10^3/uL; Basophil% 0.4 % (0-1); Eosinophil# 0.18 X10^3/uL; Eosinophils% 1.6 % (0-5); Hematocrit 38.3 % (37-47); Lymphocyte # 3.45 X10^3/ul (0.83-4.51); Lymphocyte % 30.3 % (19-41); Mean Corp Hgb Conc 31.3 g/dL (32-36); Mean Corpuscular Hgb 25.8 pg (27.0-32.0); Mean Corpuscular Volume 82.2 fL (81-99); Mean Platelet Vol. 10.9 fl (6.2-12.0); Monocyte# 1.03 X10^3/uL; NRBC Flagged by Analyzer 0 % (0-5); Neutrophil # 6.65 X10^3/uL (2.7-7.7); Neutrophil % 58.3 % (47-70); Platelet Count 305 K/mm3 (150-450); RBC Distribution Width CV 13.7 % (11.6-14.6); RBC Distribution Width SD 40.5 fl (35.1-43.9); Red Blood Count 4.66 M/mm3 (4.2-5.4); White Blood Count 11.4 K/mm3 (4.4-11.0)
[2021-04-14 12:33] LABS: Anion Gap 6 (5-15); BUN 21 mg/dL (7-18); BUN/Creat Ratio 19.8 RATIO (10-20); Calcium,Total 8.7 mg/dL (8.5-10.1); Chloride 102 mmol/L (98-107); Creatinine, Serum 1.06 mg/dL (0.55-1.02); EST Glomerular Filtration Rate 58 mL/min (>60); Est Glom Filt Rate - Afr Amer 70 mL/min (>60); Glucose 279 mg/dL (74-106); Potassium 4.5 mmol/L (3.5-5.1); Sodium Level 137 mmol/L (136-145); Thyroid Stim Hormone (TSH) 4.56 uIU/mL (0.358-3.74)
[2021-04-14 12:41] LABS: Erythrocyte Sedimentation Rate 37 mm/hr (0-30)
[2021-04-14 13:29] LABS: M R Staph aureus DNA By PCR POSITIVE (Negative); Probe Check PASS; Staph aureus DNA By PCR POSITIVE (Negative)
== END 2021-04-14 23:59 | disposition short-term general hospital (02) ==
LOC: POLAB3 09:51
PROVIDERS: PCP Family Medicine Geriatric Medicine; Visit Provider Family Medicine Geriatric Medicine
DX: L03.90 Cellulitis, unspecified (principal); B95.62 Methicillin resistant Staphylococcus aureus infection as the cause of diseases classified elsewhere; E03.9 Hypothyroidism, unspecified
CPT/HCPCS: 36415; 80048; 84443; 85025; 85652; 86140; 87040; 87070; 87077; 87186; 87205; 87640

== ENCOUNTER 2021-05-17 15:56 | Outpatient (CLI) | payer BC, SELFPAY ==
[2021-05-17 16:39] LABS: Absolute Lymphocyte Count 2.79 X10^3/uL (0.83-4.51); Absolute Neutrophil Count 4.7 X10^3/uL (2.0-7.7); Basophil# 0.03 X10^3/uL; Basophil% 0.4 % (0-1); Eosinophil# 0.14 X10^3/uL; Eosinophils% 1.6 % (0-5); Hematocrit 37.9 % (37-47); Hemoglobin 12.5 g/dL (12.0-15.0); Lymphocyte # 2.79 X10^3/ul (0.83-4.51); Lymphocyte % 32.7 % (19-41); Mean Corpuscular Hgb 26.6 pg (27.0-32.0); Mean Corpuscular Volume 80.6 fL (81-99); Mean Platelet Vol. 10.1 fl (6.2-12.0); Monocyte# 0.81 X10^3/uL; Monocyte% 9.5 % (0-10); NRBC Flagged by Analyzer 0 % (0-5); Neutrophil # 4.73 X10^3/uL (2.7-7.7); Neutrophil % 55.4 % (47-70); Platelet Count 302 K/mm3 (150-450); RBC Distribution Width CV 14.2 % (11.6-14.6); White Blood Count 8.5 K/mm3 (4.4-11.0)
[2021-05-17 16:58] LABS: Anion Gap 6 (5-15); BUN 24 mg/dL (7-18); BUN/Creat Ratio 20.2 RATIO (10-20); Calcium,Total 9.3 mg/dL (8.5-10.1); Chloride 104 mmol/L (98-107); Creatinine, Serum 1.19 mg/dL (0.55-1.02); EST Glomerular Filtration Rate 51 mL/min (>60); Est Glom Filt Rate - Afr Amer 62 mL/min (>60); Glucose 227 mg/dL (74-106); Potassium 4.2 mmol/L (3.5-5.1); Sodium Level 139 mmol/L (136-145)
== END 2021-05-17 23:59 | disposition home or self-care (01) ==
LOC: POLAB3 15:57
PROVIDERS: PCP Family Medicine Geriatric Medicine; Visit Provider Family Medicine Geriatric Medicine
DX: R50.9 Fever, unspecified (principal); R68.83 Chills (without fever)
CPT/HCPCS: 36415; 80048; 85025; 87040

== ENCOUNTER 2021-05-18 11:18 | Outpatient (CLI) | payer BC, SELFPAY ==
--- NOTE | 2021-05-18 | IMM_PTH ---
PATIENT: ARLEN NGUYEN LOC: [facility] U#:[id number] AGE/SX: 51/F ROOM: RE05/18/[address]: Dr. Phu Espinoza MD : 1970 BED: DIS: 05/18/2021 SPEC #: [id number] RECD: 05/21/21 12:05 STATUS: ASHLEE CASSIE #: [id number] SKINNY: 05/18/21 00:[address]: Phu Espinoza Chi DEPT: IMMUNOHISTOCHEMISTRY RECD BY: Marivel Guevara Tissues: Skin of back, NOS Procedures: No Tissue Found PHYSICIAN & INSTITUTION [place] [address] SPECIMEN INFORMATION: Tissue Source: Clinical Info: Specimen Number: CPT code: METHODOLOGY: Deparaffinized sections of prefer/formalin-fixed tissue or PAP/DQ stained slides are incubated with monoclonal/polyclonal antibodies/oligonucleotide probes. Localization is made via biotin free immunoperoxidase method. Appropriate controls are performed and reacted as expected. Results on target cell population are indicated in the following table: RESULTS: ANTIBODY / CLONE RESULT These tests were developed and their performance characteristics determined by [facility]. They may not have been cleared or approved by the U.S. Food and Drug Administration. The FDA has determined that such clearance or approval is not necessary. The above immunohistochemical/dualISH markers are ordered and reviewed by the Pathologist.
--- NOTE | 2021-05-18 | IMM_PTH ---
PATIENT: ARLEN NGUYEN LOC: [facility] U#:[id number] AGE/SX: 51/F ROOM: RE05/18/[address]: Dr. Phu Espinoza MD : 1970 BED: DIS: 05/18/2021 SPEC #: [id number] RECD: 05/21/21 12:05 STATUS: DARIUSZ REDelta #: [id number] SKINNY: 05/18/21 00:[address]: Phu Espinoza Chi DEPT: IMMUNOHISTOCHEMISTRY RECD BY: Marivel Guevara Tissues: Skin of back, NOS Procedures: SMA (add) CD34 (add) CK5-6 (add) MACRO (add) Vimentin (add) MELAN-A (add) P40 (add) S100 (initial) PHYSICIAN & INSTITUTION [place] [address] SPECIMEN INFORMATION: Tissue Source: Skin lesion of back Clinical Info: L81.9 Specimen Number: [id number] CPT code: 81652, 83017 x7 METHODOLOGY: Deparaffinized sections of prefer/formalin-fixed tissue or PAP/DQ stained slides are incubated with monoclonal/polyclonal antibodies/oligonucleotide probes. Localization is made via biotin free immunoperoxidase method. Appropriate controls are performed and reacted as expected. Results on target cell population are indicated in the following table: RESULTS: ANTIBODY / CLONE RESULT S-100 (4C4.9) negative Melan A (A103) negative P40 (BC28) negative CK5-6 (D5 & 1684) negative Macro (HAM-56) negative Vimentin (V9) positive Actin (1A4) negative CD34 (QBEnd-10) positive These tests were developed and their performance characteristics determined by [facility]. They may not have been cleared or approved by the U.S. Food and Drug Administration. The FDA has determined that such clearance or approval is not necessary. The above immunohistochemical/dualISH markers are ordered and reviewed by the Pathologist. INTERPRETATION: Skin lesion of back, shave biopsy: Consistent with dermal fibrosis. See comment. AM:kirstie 05/24/2021 Comment: A dermatofibroma cannot be ruled out.
--- NOTE | 2021-05-18 09:30 | LES_PTH ---
PATIENT: ARLEN NGUYEN LOC: [facility] U#:[id number] AGE/SX: 51/F ROOM: RE05/18/[address]: Dr. Phu Espinoza MD : 1970 BED: DIS: 05/18/2021 SPEC #: [id number] RECD: 05/18/21 11:35 [facility] #: [id number] SKINNY: 05/18/21 09:[address]: Phu Espinoza Chi DEPT: SURGICAL PATHOLOGY RECD BY: Suha Coelho Tissues: Skin, NOS Procedures: No Tissue Found HEADER OPERATION: PRE-OP DIAGNOSIS: TISSUE SUBMITTED: GROSS DESCRIPTION REPORT PLACED UNDER WRONG PATIENT.
--- NOTE | 2021-05-18 09:30 | LES_PTH ---
PATIENT: ARLEN NGUYEN LOC: [facility]#:[id number] AGE/SX: 51/F ROOM: RE05/18/[address]: Dr. Phu Espinoza MD : 1970 BED: DIS: 05/18/2021 SPEC #: [id number] RECD: 05/18/21 11:35 STATUS: DARIUSZ CASSIE #: [id number] SKINNY: 05/18/21 09:[address]: Phu Espinoza Chi DEPT: SURGICAL PATHOLOGY RECD BY: Suha Coelho Tissues: Skin, NOS Procedures: Surgery Specimen Level IV HEADER OPERATION: Biopsy PRE-OP DIAGNOSIS: L81.9 TISSUE SUBMITTED: Back MICROSCOPIC DIAGNOSIS Skin lesion of back, shave biopsy: Dermal fibrosis. Mild chronic superficial dermatitis. Mild squamous acanthosis. See Comment. AM:kirstie 05/19/2021 COMMENT Immunohistochemistry ([id number]) supports the diagnosis. A dermatofibroma cannot be ruled out. Clinical correlation is suggested MICROSCOPIC DESCRIPTION Slides are reviewed. GROSS DESCRIPTION Received in fixative is one container labeled with the patient's name and designated back. The specimen consists of a shave biopsy of aiken-white skin measuring 0.8 x 0.7 cm and 0.1 cm in thickness. The specimen is inked, serially sectioned and submitted entirely in one cassette. / SJ:rg 05/18/2021 TC:5 CPT: 78189
[2021-05-18 13:52] LABS: M R Staph aureus DNA By PCR POSITIVE (Negative); Probe Check PASS; Staph aureus DNA By PCR POSITIVE (Negative)
== END 2021-05-18 23:59 | disposition home or self-care (01) ==
PROVIDERS: PCP Family Medicine Geriatric Medicine; Visit Provider Family Medicine Geriatric Medicine
DX: L81.9 Disorder of pigmentation, unspecified (principal); B95.62 Methicillin resistant Staphylococcus aureus infection as the cause of diseases classified elsewhere
CPT/HCPCS: 87070; 87077; 87186; 87205; 87640; 88305; 88341; 88342

== ENCOUNTER 2021-06-09 14:35 | Outpatient (CLI) | payer BC, SELFPAY ==
[2021-06-09 16:50] LABS: Vitamin B12 392 pg/mL (211-911); Vitamin D,25 Hydroxy 21.5 ng/mL
[2021-06-09 16:58] LABS: Thyroid Stim Hormone (TSH) 2.37 uIU/mL (0.358-3.74)
[2021-06-10 08:51] LABS: Cholesterol 126 mg/dL (200); High Density Lipoprotein 41 mg/dL; T4 Free Direct 0.98 ng/dL (0.76-1.46); Triglycerides 145 mg/dL; Very Low Density Lipoprotein 29 mg/dL (5-40)
== END 2021-06-09 23:59 | disposition home or self-care (01) ==
LOC: BIMLAB 14:36
PROVIDERS: Nurse Practitioner Family; PCP Family Medicine Geriatric Medicine; Visit Provider Family Medicine Geriatric Medicine
DX: E03.9 Hypothyroidism, unspecified (principal); E11.65 Type 2 diabetes mellitus with hyperglycemia; E66.01 Morbid (severe) obesity due to excess calories; Z68.42 Body mass index [BMI] 45.0-49.9, adult; Z79.4 Long term (current) use of insulin; R20.2 Paresthesia of skin; E78.00 Pure hypercholesterolemia, unspecified
CPT/HCPCS: 36415; 80061; 82306; 82607; 84439; 84443

== ENCOUNTER 2021-06-23 11:46 | Outpatient (CLI) | payer BC, SELFPAY ==
[2021-06-23 12:31] LABS: Absolute Lymphocyte Count 2.66 X10^3/uL (0.83-4.51); Absolute Neutrophil Count 5.2 X10^3/uL (2.0-7.7); Basophil# 0.04 X10^3/uL; Basophil% 0.5 % (0-1); Eosinophil# 0.13 X10^3/uL; Eosinophils% 1.5 % (0-5); Hematocrit 38.4 % (37-47); Hemoglobin 13.1 g/dL (12.0-15.0); Lymphocyte # 2.66 X10^3/ul (0.83-4.51); Mean Corp Hgb Conc 34.1 g/dL (32-36); Mean Corpuscular Hgb 27.5 pg (27.0-32.0); Mean Corpuscular Volume 80.5 fL (81-99); Mean Platelet Vol. 10.2 fl (6.2-12.0); Monocyte# 0.83 X10^3/uL; Monocyte% 9.3 % (0-10); NRBC Flagged by Analyzer 0 % (0-5); Neutrophil # 5.19 X10^3/uL (2.7-7.7); Neutrophil % 58.4 % (47-70); Platelet Count 274 K/mm3 (150-450); RBC Distribution Width CV 13.9 % (11.6-14.6); RBC Distribution Width SD 40.6 fl (35.1-43.9); Red Blood Count 4.77 M/mm3 (4.2-5.4); White Blood Count 8.9 K/mm3 (4.4-11.0)
[2021-06-23 12:53] LABS: ALB/GLOB Ratio 0.9 RATIO (0.9-2.4); AST(SGOT) 32 U/L (15-37); Alanine Aminotransfer ALT/SGPT 42 U/L (13-56); Albumin, Serum 3.8 g/dL (3.2-5.0); Alkaline Phosphatase 50 U/L (45-117); Anion Gap 8 (5-15); BUN 20 mg/dL (7-18); Calcium,Total 8.9 mg/dL (8.5-10.1); Chloride 101 mmol/L (98-107); Creatinine, Serum 1.25 mg/dL (0.55-1.02); EST Glomerular Filtration Rate 48 mL/min (>60); Est Glom Filt Rate - Afr Amer 58 mL/min (>60); Globulin 4.1 g/dL (2.2-4.2); Glucose 252 mg/dL (74-106); Potassium 4.1 mmol/L (3.5-5.1); Protein, Total 7.9 g/dL (6.4-8.2); Sodium Level 137 mmol/L (136-145); Thyroid Stim Hormone (TSH) 4.89 uIU/mL (0.358-3.74)
== END 2021-06-23 23:59 | disposition home or self-care (01) ==
LOC: POLAB3 11:47
PROVIDERS: PCP Family Medicine Geriatric Medicine; Visit Provider Family Medicine Geriatric Medicine
DX: E11.65 Type 2 diabetes mellitus with hyperglycemia (principal); I10 Essential (primary) hypertension
CPT/HCPCS: 36415; 80053; 84443; 85025

== ENCOUNTER → 2021-07-19 | Outpatient (CLI) | payer BC, SELFPAY ==
--- NOTE | 2021-07-19 17:16 | CT_ITS ---
STUDY: CT Abdomen And Pelvis W/O Contrast Injection 07/19/2021 6:39 PM REASON FOR EXAM: Female, 51 years old. ABDOMINAL PAIN KIDNEY STONE TECHNIQUE: Transaxial images were obtained without oral contrast, and without intravenous contrast. Individualized dose optimization techniques were used for this CT. COMPARISON: 04.01.16. FINDINGS: There are atherosclerotic calcifications of visualized coronary arteries. The visualized portions of the heart are within normal limits. Normal liver. There are surgical clips in the gallbladder fossa consistent with a prior cholecystectomy. Normal spleen. Normal pancreas. Normal bilateral adrenal glands. No acute findings of the right kidney. No acute findings of the left kidney. Normal visualized stomach. Normal small intestine. Stool throughout the colon. There is non-visualization of the appendix. There are calcifications of the abdominal aorta. This is consistent for atherosclerotic disease. There is no abdominal aortic aneurysm. Normal inferior vena cava. Subcentimeter mesenteric lymph nodes. Normal urinary bladder. There is atrophy of the uterus. Normal abdominal wall. There are diffuse degenerative changes of the visualized lumbar spine. IMPRESSION: (NOT LISTED IN ORDER OF SIGNIFICANCE) There are atherosclerotic calcifications of visualized coronary arteries. There are no renal stones. There is no hydronephrosis. Other findings as above. Electronically Signed: Roverto Beebe MD at 18:41 EDT , CT/Abdomen/Pelvis without Cont
== END | disposition home or self-care (01) ==
LOC: CT 17:08
PROVIDERS: PCP Family Medicine Geriatric Medicine; Visit Provider Family Medicine Geriatric Medicine
DX: N20.0 Calculus of kidney (principal)
CPT/HCPCS: 74176

== ENCOUNTER → 2021-07-19 | Outpatient (CLI) | payer BC, SELFPAY ==
[2021-07-19 17:15] LABS: Absolute Lymphocyte Count 2.89 X10^3/uL (0.83-4.51); Absolute Neutrophil Count 4.7 X10^3/uL (2.0-7.7); Basophil# 0.03 X10^3/uL; Basophil% 0.4 % (0-1); Eosinophil# 0.15 X10^3/uL; Eosinophils% 1.8 % (0-5); Hematocrit 34.1 % (37-47); Hemoglobin 10.8 g/dL (12.0-15.0); Lymphocyte # 2.89 X10^3/ul (0.83-4.51); Lymphocyte % 34.5 % (19-41); Mean Corp Hgb Conc 31.7 g/dL (32-36); Mean Corpuscular Hgb 26.3 pg (27.0-32.0); Mean Platelet Vol. 10.4 fl (6.2-12.0); Monocyte# 0.63 X10^3/uL; Monocyte% 7.5 % (0-10); NRBC Flagged by Analyzer 0 % (0-5); Neutrophil # 4.65 X10^3/uL (2.7-7.7); Neutrophil % 55.6 % (47-70); Platelet Count 257 K/mm3 (150-450); RBC Distribution Width CV 14.1 % (11.6-14.6); RBC Distribution Width SD 42.5 fl (35.1-43.9); Red Blood Count 4.11 M/mm3 (4.2-5.4); White Blood Count 8.4 K/mm3 (4.4-11.0)
[2021-07-19 18:25] LABS: Anion Gap 4 (5-15); BUN 18 mg/dL (7-18); BUN/Creat Ratio 15.8 RATIO (10-20); Calcium,Total 9.6 mg/dL (8.5-10.1); Chloride 108 mmol/L (98-107); Creatinine, Serum 1.14 mg/dL (0.55-1.02); EST Glomerular Filtration Rate 53 mL/min (>60); Est Glom Filt Rate - Afr Amer 65 mL/min (>60); Glucose 140 mg/dL (74-106); Sodium Level 138 mmol/L (136-145)
== END | disposition home or self-care (01) ==
LOC: POLAB3 16:27
PROVIDERS: PCP Family Medicine Geriatric Medicine; Visit Provider Family Medicine Geriatric Medicine
DX: N18.32 Chronic kidney disease, stage 3b (principal); N39.0 Urinary tract infection, site not specified; R50.9 Fever, unspecified
CPT/HCPCS: 36415; 80048; 85025; 87040; 87077; 87086; 87088; 87186

== ENCOUNTER → 2021-07-20 | Outpatient (CLI) | payer BC, SELFPAY ==
[2021-07-20 12:23] LABS: Absolute Lymphocyte Count 2.36 X10^3/uL (0.83-4.51); Absolute Neutrophil Count 3.7 X10^3/uL (2.0-7.7); Basophil# 0.03 X10^3/uL; Basophil% 0.4 % (0-1); Eosinophil# 0.16 X10^3/uL; Eosinophils% 2.3 % (0-5); Hematocrit 33.5 % (37-47); Hemoglobin 10.9 g/dL (12.0-15.0); Lymphocyte # 2.36 X10^3/ul (0.83-4.51); Lymphocyte % 34.4 % (19-41); Mean Corp Hgb Conc 32.5 g/dL (32-36); Mean Corpuscular Hgb 27.2 pg (27.0-32.0); Mean Corpuscular Volume 83.5 fL (81-99); Mean Platelet Vol. 10.5 fl (6.2-12.0); Monocyte# 0.57 X10^3/uL; Monocyte% 8.3 % (0-10); NRBC Flagged by Analyzer 0 % (0-5); Neutrophil # 3.74 X10^3/uL (2.7-7.7); Neutrophil % 54.5 % (47-70); Platelet Count 234 K/mm3 (150-450); RBC Distribution Width CV 14.1 % (11.6-14.6); Red Blood Count 4.01 M/mm3 (4.2-5.4); Reticulocyte Count 2.13 % (0.5-1.5); White Blood Count 6.9 K/mm3 (4.4-11.0)
[2021-07-20 12:40] LABS: Vitamin B12 299 pg/mL (211-911)
[2021-07-20 12:55] LABS: Ferritin 30 ng/mL (8-252); Iron 44 ug/dL (50-170); Iron Binding Capacity,Total 443 ug/dL (250-450); PERCENT IRON SATURATION 9.9 % (15.0-55.0)
== END | disposition home or self-care (01) ==
LOC: POLAB3 10:56
PROVIDERS: PCP Family Medicine Geriatric Medicine; Visit Provider Family Medicine Geriatric Medicine
DX: D64.9 Anemia, unspecified (principal)
CPT/HCPCS: 36415; 82607; 82728; 82746; 83540; 83550; 85025; 85045

== ENCOUNTER → 2021-07-21 | Outpatient (CLI) | payer BC, SELFPAY ==
[2021-07-22 11:04] LABS: Homocysteine 7.4 umol/L (3.2-10.7)
[2021-07-30 21:45] LABS: Methylmalonic Acid Bld 819 nmol/L (0-378)
== END | disposition home or self-care (01) ==
LOC: POLAB3 14:49 → LAB.FUTURE 14:49 → POLAB3 07-22 09:38
PROVIDERS: PCP Family Medicine Geriatric Medicine; Visit Provider Family Medicine Geriatric Medicine
DX: D64.9 Anemia, unspecified (principal)
CPT/HCPCS: 36415; 83090; 83921

== ENCOUNTER → 2021-08-25 | Outpatient (CLI) | payer BC, SELFPAY ==
[2021-08-25 16:37] LABS: Erythrocyte Sedimentation Rate 39 mm/hr (0-30)
[2021-08-25 16:41] LABS: Absolute Lymphocyte Count 2.35 X10^3/uL (0.83-4.51); Absolute Neutrophil Count 5.7 X10^3/uL (2.0-7.7); Basophil# 0.04 X10^3/uL; Basophil% 0.4 % (0-1); Eosinophil# 0.14 X10^3/uL; Eosinophils% 1.5 % (0-5); Hematocrit 37.4 % (37-47); Hemoglobin 12.1 g/dL (12.0-15.0); Lymphocyte # 2.35 X10^3/ul (0.83-4.51); Lymphocyte % 25.8 % (19-41); Mean Corp Hgb Conc 32.4 g/dL (32-36); Mean Corpuscular Hgb 26.9 pg (27.0-32.0); Mean Corpuscular Volume 83.3 fL (81-99); Mean Platelet Vol. 10.4 fl (6.2-12.0); Monocyte# 0.81 X10^3/uL; Monocyte% 8.9 % (0-10); NRBC Flagged by Analyzer 0 % (0-5); Neutrophil # 5.72 X10^3/uL (2.7-7.7); Neutrophil % 62.9 % (47-70); Platelet Count 293 K/mm3 (150-450); RBC Distribution Width CV 13.1 % (11.6-14.6); RBC Distribution Width SD 39.4 fl (35.1-43.9); Red Blood Count 4.49 M/mm3 (4.2-5.4); White Blood Count 9.1 K/mm3 (4.4-11.0)
[2021-08-25 17:17] LABS: ALB/GLOB Ratio 0.9 RATIO (0.9-2.4); AST(SGOT) 31 U/L (15-37); Alanine Aminotransfer ALT/SGPT 38 U/L (13-56); Albumin, Serum 3.9 g/dL (3.2-5.0); Alkaline Phosphatase 44 U/L (45-117); Anion Gap 11 (5-15); BUN 26 mg/dL (7-18); BUN/Creat Ratio 26.5 RATIO (10-20); CRP < 2.90 mg/L (0.0-3.0); Calcium,Total 9.4 mg/dL (8.5-10.1); Chloride 106 mmol/L (98-107); Creatinine, Serum 0.98 mg/dL (0.55-1.02); EST Glomerular Filtration Rate 63 mL/min (>60); Est Glom Filt Rate - Afr Amer 77 mL/min (>60); Globulin 4.3 g/dL (2.2-4.2); Glucose 163 mg/dL (74-106); Potassium 4.5 mmol/L (3.5-5.1); Protein, Total 8.2 g/dL (6.4-8.2); Sodium Level 139 mmol/L (136-145); Thyroid Stim Hormone (TSH) 2.17 uIU/mL (0.358-3.74)
== END | disposition home or self-care (01) ==
LOC: POLAB3 16:01
PROVIDERS: PCP Family Medicine Geriatric Medicine; Visit Provider Family Medicine Geriatric Medicine
DX: I10 Essential (primary) hypertension (principal); F33.42 Major depressive disorder, recurrent, in full remission; N39.0 Urinary tract infection, site not specified
CPT/HCPCS: 36415; 80053; 84443; 85025; 85652; 86140; 87086; 87088

== ENCOUNTER → 2021-09-21 | Outpatient (CLI) | payer BC, SELFPAY ==
[2021-09-21 11:59] LABS: Absolute Lymphocyte Count 2.61 X10^3/uL (0.83-4.51); Absolute Neutrophil Count 4.1 X10^3/uL (2.0-7.7); Basophil# 0.04 X10^3/uL; Basophil% 0.5 % (0-1); Eosinophil# 0.16 X10^3/uL; Eosinophils% 2.1 % (0-5); Hematocrit 34.7 % (37-47); Hemoglobin 11.5 g/dL (12.0-15.0); Lymphocyte # 2.61 X10^3/ul (0.83-4.51); Lymphocyte % 34.1 % (19-41); Mean Corp Hgb Conc 33.1 g/dL (32-36); Mean Corpuscular Hgb 27.1 pg (27.0-32.0); Mean Corpuscular Volume 81.6 fL (81-99); Mean Platelet Vol. 9.9 fl (6.2-12.0); Monocyte# 0.66 X10^3/uL; Monocyte% 8.6 % (0-10); NRBC Flagged by Analyzer 0 % (0-5); Neutrophil # 4.14 X10^3/uL (2.7-7.7); Neutrophil % 54.2 % (47-70); Platelet Count 274 K/mm3 (150-450); RBC Distribution Width SD 38.6 fl (35.1-43.9); Red Blood Count 4.25 M/mm3 (4.2-5.4); White Blood Count 7.7 K/mm3 (4.4-11.0)
[2021-09-21 12:38] LABS: Vitamin D,25 Hydroxy 36.2 ng/mL
[2021-09-21 12:42] LABS: AST(SGOT) 27 U/L (15-37); Alanine Aminotransfer ALT/SGPT 28 U/L (13-56); Albumin, Serum 3.7 g/dL (3.2-5.0); Alkaline Phosphatase 45 U/L (45-117); Anion Gap 8 (5-15); BUN 14 mg/dL (7-18); BUN/Creat Ratio 12.8 RATIO (10-20); Calcium,Total 8.7 mg/dL (8.5-10.1); Chloride 105 mmol/L (98-107); Creatinine, Serum 1.09 mg/dL (0.55-1.02); EST Glomerular Filtration Rate 56 mL/min (>60); Est Glom Filt Rate - Afr Amer 68 mL/min (>60); Globulin 3.8 g/dL (2.2-4.2); Glucose 143 mg/dL (74-106); Potassium 4.1 mmol/L (3.5-5.1); Protein, Total 7.5 g/dL (6.4-8.2); Sodium Level 139 mmol/L (136-145); Thyroid Stim Hormone (TSH) 2.98 uIU/mL (0.358-3.74)
== END | disposition home or self-care (01) ==
PROVIDERS: PCP Family Medicine Geriatric Medicine; Visit Provider Family Medicine Geriatric Medicine
DX: D64.9 Anemia, unspecified (principal); E11.65 Type 2 diabetes mellitus with hyperglycemia; E55.9 Vitamin D deficiency, unspecified; I10 Essential (primary) hypertension
CPT/HCPCS: 36415; 80053; 82306; 84443; 85025

== ENCOUNTER → 2021-10-20 | Outpatient (CLI) | payer BC, SELFPAY ==
[2021-10-20 15:30] LABS: T4 Free Direct 0.84 ng/dL (0.76-1.46); Thyroid Stim Hormone (TSH) 2.21 uIU/mL (0.358-3.74)
[2021-10-20 15:32] LABS: Hemoglobin A1c 6.6 % (3.8-5.6)
== END | disposition home or self-care (01) ==
LOC: MTLAB 11:13
PROVIDERS: PCP Family Medicine Geriatric Medicine; Referring Provider Nurse Practitioner Family; Visit Provider Nurse Practitioner Family
DX: E11.65 Type 2 diabetes mellitus with hyperglycemia (principal); Z79.4 Long term (current) use of insulin; E03.9 Hypothyroidism, unspecified
CPT/HCPCS: 36415; 83036; 84439; 84443

== ENCOUNTER → 2021-12-21 | Outpatient (CLI) | payer BC, SELFPAY ==
[2021-12-21 12:35] LABS: Absolute Lymphocyte Count 2.78 X10^3/uL (0.83-4.51); Absolute Neutrophil Count 4.7 X10^3/uL (2.0-7.7); Basophil# 0.04 X10^3/uL; Basophil% 0.5 % (0-1); Eosinophil# 0.18 X10^3/uL; Eosinophils% 2.2 % (0-5); Hematocrit 35.6 % (37-47); Hemoglobin 11.8 g/dL (12.0-15.0); Lymphocyte # 2.78 X10^3/ul (0.83-4.51); Lymphocyte % 33.7 % (19-41); Mean Corp Hgb Conc 33.1 g/dL (32-36); Mean Corpuscular Hgb 26.8 pg (27.0-32.0); Mean Corpuscular Volume 80.7 fL (81-99); Mean Platelet Vol. 10.6 fl (6.2-12.0); Monocyte# 0.56 X10^3/uL; Monocyte% 6.8 % (0-10); NRBC Flagged by Analyzer 0 % (0-5); Neutrophil # 4.66 X10^3/uL (2.7-7.7); Neutrophil % 56.6 % (47-70); Platelet Count 285 K/mm3 (150-450); RBC Distribution Width CV 13.3 % (11.6-14.6); RBC Distribution Width SD 38.6 fl (35.1-43.9); Red Blood Count 4.41 M/mm3 (4.2-5.4); White Blood Count 8.2 K/mm3 (4.4-11.0)
[2021-12-21 12:52] LABS: ALB/GLOB Ratio 0.9 RATIO (0.9-2.4); AST(SGOT) 20 U/L (15-37); Alanine Aminotransfer ALT/SGPT 25 U/L (13-56); Albumin, Serum 3.8 g/dL (3.2-5.0); Alkaline Phosphatase 49 U/L (45-117); Anion Gap 8 (5-15); BUN 21 mg/dL (7-18); BUN/Creat Ratio 21.9 RATIO (10-20); Calcium,Total 9.2 mg/dL (8.5-10.1); Chloride 106 mmol/L (98-107); Creatinine, Serum 0.96 mg/dL (0.55-1.02); EST Glomerular Filtration Rate 65 mL/min (>60); Est Glom Filt Rate - Afr Amer 79 mL/min (>60); Globulin 4.1 g/dL (2.2-4.2); Glucose 145 mg/dL (74-106); Potassium 4.2 mmol/L (3.5-5.1); Protein, Total 7.9 g/dL (6.4-8.2); Sodium Level 141 mmol/L (136-145); Thyroid Stim Hormone (TSH) 2.66 uIU/mL (0.358-3.74)
== END | disposition home or self-care (01) ==
LOC: POLAB3 09:45
PROVIDERS: PCP Family Medicine Geriatric Medicine; Visit Provider Family Medicine Geriatric Medicine
DX: I10 Essential (primary) hypertension (principal); E11.65 Type 2 diabetes mellitus with hyperglycemia
CPT/HCPCS: 36415; 80053; 84443; 85025

== ENCOUNTER 2022-02-03 18:46 | Observation (INO) | payer BC, SELFPAY ==
[2022-02-03] VITALS (7 sets, daily range): BP systolic 118–154; BP diastolic 62–93; PULSE 92–131; RESP 18–20; TEMP 37.7–39.4; O2SAT 94–97; BMI 39.1; BMI 40.9
--- NOTE | 2022-02-03 19:05 | EKG12_ITS ---
Test Reason : FEVER Blood Pressure : / mmHG Vent. Rate : 095 BPM Atrial Rate : 095 BPM P-R Int : 152 ms QRS Dur : 074 ms QT Int : 356 ms P-R-T Axes : 011 043 020 degrees QTc Int : 447 ms Normal sinus rhythm Low voltage QRS Borderline ECG Confirmed by TOBIAS DICKENS, SONA ([id number]), video editor VERNON LAZO ([id number]) on 02/08/2022 9:17:25 A M Referred By: Confirmed By:CONY COLLADO MD
--- NOTE | 2022-02-03 19:07 | ED.VIS.GI ---
HPI HPI - GI History of Present Illness Chief Complaint: Flank Pain Informant: patient Narrative Narrative: Presents by private vehicle reports mid abdominal discomfort on and off for the past 2 weeks. Today at 3:00 while mowing the lawn sudden pain in right side of her abdomen. Decreased appetite over the last 2 weeks. No vomiting or diarrhea. Cholecystectomy in 1999. C-sections x4 with uterine ablation 15 years ago. No history of kidney stones. History of diabetes with insulin pump along with asthma. Denies urinary symptoms. States today also fevers and chills. No cough. Prior similar symptoms: No PFSH PFSH Medical History Allergies Arthritis Carpal tunnel syndrome delivery delivered Depression Gall stones Hearing problem Hepatitis A High blood triglycerides High cholesterol Hives Hypertension Hypothyroidism Migraines Morbid obesity with BMI of 45.0-49.9, adult Neuropathy Psoriatic arthritis Tonsillectomy planned Home Medications albuterol sulfate 90 mcg/actuation aerosol inhaler (Ventolin HFA) 1 puff inhalation Q4H PRN PRN Shortness Of Breath 12/01/13 [History Last Taken 02/02/19] epinephrine 0.3 mg/0.3 mL injection, auto-injector 0.3 mg (0.3 mL) IM PRN PRN Anaphylaxis ##2 12/01/13 [Rx Last Taken 02/02/19] metformin 750 mg tablet,extended release 24 hr (Glucophage XR) 1,000 mg PO BID 12/01/13 [History Last Taken 02/03/19] paroxetine HCl 30 mg tablet (Paxil) 40 mg PO DAILY 12/01/13 [History Last Taken 02/02/19] zolpidem 10 mg tablet (Ambien) 5 mg PO QHS 12/01/13 [History Last Taken 02/02/19] epinephrine 0.3 mg/0.3 mL injection, auto-injector 0.3 mg (0.3 mL) IJ X1 PRN Anaphylaxis ##1 02/03/19 [Rx Last Taken Unknown] apremilast 30 mg tablet (Otezla) 30 mg PO BID 02/03/21 [History Last Taken Unknown] atorvastatin 40 mg tablet 40 mg PO DAILY 02/03/21 [History Last Taken Unknown] cetirizine 10 mg tablet 10 mg PO DAILY 02/03/21 [History Last Taken Unknown] doxycycline monohydrate 100 mg capsule 100 mg PO BID #14 CAPSULES 02/03/21 [Rx Last Taken Unknown] lisinopril 40 mg tablet 40 mg PO DAILY 02/03/21 [History Last Taken Unknown] levothyroxine 50 mcg tablet ea PO 05/12/21 [History Last Taken Unknown] Trulicity 1.5 mg/0.5 mL subcutaneous pen injector (dulaglutide) 1.5 mg (0.5 mL) subcut QWEEK #2 mL 06/09/21 [Rx Last Taken Unknown] blood-glucose sensor (Dexcom G6 Sensor device) #3 ea 07/23/21 [Rx Last Taken Unknown] blood-glucose transmitter (Dexcom G6 Transmitter device) #1 ea 07/23/21 [Rx Last Taken Unknown] insulin lispro 100 unit/mL subcutaneous solution (Humalog U-100 Insulin) 100 unit continuous subcutaneous infusion .continuous #90 mL 07/28/21 [Rx Last Taken Unknown] ondansetron 4 mg disintegrating tablet 4 mg PO Q6H PRN nausea and vomiting #10 tabs 02/03/22 [Rx Last Taken Unknown] Allergy/AdvReac Type Severity Reaction Status Date / Time nut - unspecified Allergy Anaphylaxis Verified 02/03/22 18:49 peanut Allergy Anaphylaxis Verified 02/03/22 18:49 shellfish derived Allergy Anaphylaxis Verified 02/03/22 18:49 codeine AdvReac Rash Verified 02/03/22 18:49 prednisone AdvReac Other Verified 02/03/22 18:49 sertraline HCl [From Zoloft] AdvReac Other Verified 02/03/22 18:49 Family History Other Alcohol abuse Anxiety Arthritis Asthma Bleeding disorder Bowel disease Depression Diabetes Hypertension Severe allergy Surgical History History of cholecystectomy History of removal of ovarian cyst Social History household members: none Smoking Status: Never smoker alcohol intake: current alcohol intake frequency: 0-2 drinks per day substance use type: does not use what type of physical activity do you participate in: walking ROS ROS ED Constitutional Constitutional ED: Reports chills and fever(s); Denies sweats Eyes Eyes: Denies change in vision ENT ENT ED: Denies dysphagia or sore throat Cardiovascular Cardiovascular: Denies chest pain, leg edema, palpitations or racing heartbeat Respiratory/Chest Respiratory/Chest: Denies cough, dyspnea or dyspnea on exertion Gastrointestinal Gastrointestinal: Reports abdominal pain and nausea; Denies diarrhea or vomiting Genitourinary Genitourinary ED: Denies dysuria, hematuria or urinary frequency Musculoskeletal Musculoskeletal: Denies back pain, extremity pain or neck pain Integumentary Denies rash or wounds Neurologic Neurologic: Denies headache(s), paresthesias or weakness EXAM Physical Exam Const Vital Signs: 02/03/22 18:47 02/03/22 19:05 02/03/22 18:49 Temperature 102.9 F H 102.9 F H Temperature Source Temporal Temporal Pulse Rate 131 H 131 H Respiratory Rate 18 18 Respiratory Effort Respiratory Pattern Blood Pressure 154/93 H 154/93 H Blood Pressure Mean 113 113 Pulse Ox 97 97 Oxygen Delivery Method Room Air Room Air Room Air 02/03/22 19:29 02/03/22 19:49 02/03/22 20:46 Temperature 99.8 F H Temperature Source Oral Pulse Rate 92 111 H Respiratory Rate 20 H 20 H Respiratory Effort Normal Non-Labored Respiratory Pattern Normal Blood Pressure 143/88 H 145/84 H Blood Pressure Mean 106 104 Pulse Ox 97 94 Oxygen Delivery Method Room Air Room Air Positive well nourished and well developed Constitutional Narrative: Uncomfortable nontoxic General Appearance ED: well developed HEENT Reports moist mucous membranes normocephalic and atraumatic Eyes PERRL, EOMs intact bilaterally and conjunctivae normal General Eye ED: Yes normal appearance of both eyes Neck no lymphadenopathy and supple General: Negative for tenderness Chest Wall Chest: Negative for tenderness Resp normal respiratory effort and normal air movement Effort and Inspection: symmetric chest movement; Negative for respiratory distress Cardio regular rate, regular rhythm and no murmurs Cardio Narrative: Heart rate 94 on the monitor in the room. Peripheral Pulses: pulses 2+ throughout GI normal to inspection, nondistended, normoactive bowel sounds GI Narrative: Right lower quadrant tenderness to palpation. Negative Rovsing's. Palpation: Negative for guarding or rebound tenderness present Back/Spine no CVA tenderness and no thoracic nor lumbar tenderness Extremity normal to inspection General Extremety ED: Negative for edema or tenderness General Extremity: Negative for edema Neuro oriented x3 and no sensory deficits noted Sensorium / Orientation: awake and alert Skin no rashes or lesions noted and no wounds MDM MDM MDM Narrative Medical decision making narrative: Patient febrile initially tachycardic however improved prior to treatment. Sepsis labs were ordered due to meeting SIRS criteria. She had no cough. EKG sinus rhythm. COVID influenza negative with her chills. She had right lower quadrant pain on my exam. Abdominal labs were all normal white count 8.6. Urine noted 25 leukocytes no other findings culture pending she has no urine symptoms. Glucose 141 she is a diabetic on insulin pump. Lactic acid normal. Noncontrast CT abdomen pelvis normal appendix per radiology. No acute findings. Patient treated morphine Zofran Tylenol in the ED. Fever improved. She require additional morphine. 2129: Reevaluation symptoms were improving, she still had mild right lower quadrant tenderness however much more improved compared to arrival. There is no rash or abdomen. Symptoms started 2 weeks ago mid abdomen today sudden pain while mowing the lawn she denies trauma. Discussed with patient pretty atypical for appendicitis however she has pain in the right area. Discussed with her possibility observations for monitoring however she states she would like to go home. Discussed clear liquid diet for the next 12 to 24 hours with strict return precautions if symptoms worsens. Patient understands and agrees with plan. Prescription for Zofran sent to her pharmacy. 2149: Prior to discharge patient started vomiting. IV Zofran was given. Patient now deciding she would like to stay due to not feeling well. I will discuss with hospitalist for admission. IV fluids will be started and continued due to vomiting. 2199: I did speak with Dr. Gomez who admit for observations. Due to right lower quadrant pain I also spoke with our on-call surgeon Dr. Agee, who reviewed the images, did not see any acute findings either. She will see her as a consult. Patient will be admitted to the medical floor for continued management. Lab Data Attestation: I reviewed the patient's lab results. Labs: Laboratory Results - last 24 hr 02/03/22 02/03/22 02/03/22 19:20 19:20 19:20 WBC 8.6 RBC 4.48 Hgb 11.5 L Hct 36.0 L MCV 80.4 L MCH 25.7 L MCHC 31.9 L RDW Std Deviation 38.9 RDW Coeff of Libby 13.4 Plt Count 222 MPV 10.0 Immature Gran % (Auto) 0.300 Neut % (Auto) 81.0 H Lymph % (Auto) 10.7 L Kenedy % (Auto) 5.9 Eos % (Auto) 2.0 Baso % (Auto) 0.1 Absolute Neuts (auto) 7.0 Absolute Lymphs (auto) 0.92 Nucleated RBC % 0 PT 13.5 INR 1.1 APTT 28.7 Sodium 140 Potassium 4.1 Chloride 106 Carbon Dioxide 24.0 Anion Gap 10 BUN 17 Creatinine 0.88 Estim Creat Clear Calc 73.55 Est GFR (MDRD) Af Amer 87 Est GFR (MDRD) Non-Af 72 BUN/Creatinine Ratio 19.4 Glucose 141 H Lactic Acid Calcium 8.8 Total Bilirubin 0.50 AST 23 ALT 25 Alkaline Phosphatase 50 Total Protein 7.2 Albumin 3.5 Globulin 3.7 Albumin/Globulin Ratio 0.9 Lipase 382 Serum , Qual Urine Color Urine Clarity Urine pH Ur Specific Cascilla Urine Protein Urine Glucose (UA) Urine Ketones Urine Occult Blood Urine Nitrite Urine Bilirubin Urine Urobilinogen Ur Leukocyte Esterase Urine RBC Urine WBC Ur Squamous Epith Cells Urine Bacteria Urine Mucus 02/03/22 02/03/22 02/03/22 19:20 19:20 19:34 WBC RBC Hgb Hct MCV MCH MCHC RDW Std Deviation RDW Coeff of Libby Plt Count MPV Immature Gran % (Auto) Neut % (Auto) Lymph % (Auto) Kenedy % (Auto) Eos % (Auto) Baso % (Auto) Absolute Neuts (auto) Absolute Lymphs (auto) Nucleated RBC % PT INR APTT Sodium Potassium Chloride Carbon Dioxide Anion Gap BUN Creatinine Estim Creat Clear Calc Est GFR (MDRD) Af Amer Est GFR (MDRD) Non-Af BUN/Creatinine Ratio Glucose Lactic Acid 1.3 Calcium Total Bilirubin AST ALT Alkaline Phosphatase Total Protein Albumin Globulin Albumin/Globulin Ratio Lipase Serum , Qual NEGATIVE Urine Color Yellow Urine Clarity Sl. Cloudy Urine pH 8.0 Ur Specific C[place]illa 1.010 Urine Protein 30 H Urine Glucose (UA) Normal Urine Ketones 5 H Urine Occult Blood Negative Urine Nitrite Negative Urine Bilirubin Negative Urine Urobilinogen Normal Ur Leukocyte Esterase 25 H Urine RBC 0 SEEN Urine WBC 0-5 SEEN Ur Squamous Epith Cells 0-5 SEEN Urine Bacteria RARE Urine Mucus 0 SEEN Radiography Diagnostic Testing: Clinical Impression(s) from Imaging Studies Abdomen/Pelvis CT 02/03/22 19:40 IMPRESSION: (NOT LISTED IN ORDER OF SIGNIFICANCE) There are no acute findings. The appendix is visualized and appears unremarkable. There are atherosclerotic calcifications of visualized coronary arteries. Other findings as above. Electronically Signed: Roverto Beebe MD at 20:42 EST Reading Location ID and State: [facility] / [place] , Service support , EKG Initial EKG: Attestation: I personally reviewed and interpreted this EKG as follows: Comments: Sinus rate of 95, no ST changes isolated T wave version leads III. Nonspecific. Discharge Plan Triage Chief Complaint: Flank Pain ED Provider: Dante Pruitt Dx/Rx/DC Orders Clinical Impression: Abdominal pain, RLQ, Nausea, Fever, History of diabetes mellitus, History of chronic kidney disease, Vomiting Instructions: ED Abdominal Pain Unkn Cause Fem Prescriptions: New ondansetron 4 mg tablet,disintegrating 4 mg PO Q6H PRN (Reason: nausea and vomiting) Qty: 10 0RF No Action levothyroxine 50 mcg tablet PO Label Comments: TAKE 1 TABLET BY MOUTH ONCE DAILY FOR 90 DAYS Trulicity 1.5 mg/0.5 mL pen injector 1.5 mg subcut QWEEK Qty: 2 2RF paroxetine HCl [Paxil] 30 MG tablet 40 mg PO DAILY Label Comments: anxiety zolpidem [Ambien] 10 MG tablet 5 mg PO QHS Label Comments: sleeping pill albuterol sulfate [Ventolin HFA] 1 INHALER inhaler 1 puff inhalation Q4H PRN PRN (Reason: Shortness Of Breath) Label Comments: breathing metformin [Glucophage XR] 750 MG tablet extended release 24 hr 1,000 mg PO BID Label Comments: blood sugar epinephrine 0.3 MG syringe 0.3 mg IM PRN PRN (Reason: Anaphylaxis) Qty: 2 0RF Label Comments: as directed epinephrine 0.3 MG/0.3 ML auto-injector 0.3 mg IJ X1 PRN (Reason: Anaphylaxis) Qty: 1 0RF atorvastatin 40 mg Tablet 40 mg PO DAILY cetirizine 10 mg Tablet 10 mg PO DAILY lisinopril 40 mg Tablet 40 mg PO DAILY Otezla 30 mg Tablet 30 mg PO BID doxycycline monohydrate 100 MG capsule 100 mg PO BID Qty: 14 0RF (DME) Dexcom G6 Sensor Device See Rx Instructions .ROUTE .MEDSUPPLY Qty: 3 6RF Rx Instructions: As directed (DME) Dexcom G6 Transmitter Device See Rx Instructions .ROUTE .MEDSUPPLY Qty: 1 3RF Rx Instructions: As directed insulin lispro [Humalog U-100 Insulin] 100 unit/mL solution 100 unit continuous subcutaneous infusion .continuous Qty: 90 3RF Primary Care Provider: Phu Espinoza Chi Referrals: Phu Espinoza Chi, MD [Primary Care Provider] - 2 Days Activity Restrictions/Additional Instructions: Your CAT scan normal appendix today. No other acute findings. With your fever all your labs are normal including COVID and influenza. Continue clear liquid diet next 12 to 24 hours. Tylenol as needed. If pain intensifies or worsens in your right lower quadrant abdomen, return for reevaluation. Disposition Disposition: Home, Self Care
[2022-02-03] MEDS: Acetaminophen 500 MG Tablet 1000 MG PO (19:13)
[2022-02-03 19:32] LABS: Absolute Lymphocyte Count 0.92 X10^3/uL (0.83-4.51); Basophil# 0.01 X10^3/uL; Basophil% 0.1 % (0-1); Eosinophil# 0.17 X10^3/uL; Hemoglobin 11.5 g/dL (12.0-15.0); Lymphocyte # 0.92 X10^3/ul (0.83-4.51); Lymphocyte % 10.7 % (19-41); Mean Corp Hgb Conc 31.9 g/dL (32-36); Mean Corpuscular Hgb 25.7 pg (27.0-32.0); Mean Corpuscular Volume 80.4 fL (81-99); Monocyte# 0.51 X10^3/uL; Monocyte% 5.9 % (0-10); NRBC Flagged by Analyzer 0 % (0-5); Neutrophil # 6.96 X10^3/uL (2.7-7.7); Platelet Count 222 K/mm3 (150-450); RBC Distribution Width CV 13.4 % (11.6-14.6); RBC Distribution Width SD 38.9 fl (35.1-43.9); Red Blood Count 4.48 M/mm3 (4.2-5.4); White Blood Count 8.6 K/mm3 (4.4-11.0)
[2022-02-03] MEDS: 0.9% Normal Saline 1,000 ML 150 ML IV (19:37)
--- NOTE | 2022-02-03 19:40 | CT_ITS ---
STUDY: CT Abdomen And Pelvis W/O Contrast Injection 02/03/2022 8:31 PM REASON FOR EXAM: Female, 51 years old. ABDOMINAL PAIN RLQ pain TECHNIQUE: Transaxial images were obtained without oral contrast, and without intravenous contrast. Individualized dose optimization techniques were used for this CT. COMPARISON: 07.19.21 FINDINGS: There are atherosclerotic calcifications of visualized coronary arteries. The visualized portions of the heart are within normal limits. Unremarkable liver. There are surgical clips in the gallbladder fossa consistent with a prior cholecystectomy. Unremarkable spleen. Unremarkable pancreas. Unremarkable bilateral adrenal glands. No acute findings of the right kidney. No acute findings of the left kidney. Unremarkable visualized stomach. Unremarkable small intestine. There are multiple colonic diverticula consistent with diverticulosis. The appendix is visualized and appears unremarkable. There are calcifications of the abdominal aorta. This is consistent for atherosclerotic disease. There is no abdominal aortic aneurysm. Unremarkable inferior vena cava. Subcentimeter mesenteric lymph nodes. Unremarkable urinary bladder. Normal visualized uterus. There is an umbilical hernia containing fat. There are diffuse degenerative changes of the visualized lumbar spine. CT/Abdomen/Pelvis without Cont IMPRESSION: (NOT LISTED IN ORDER OF SIGNIFICANCE) There are no acute findings. The appendix is visualized and appears unremarkable. There are atherosclerotic calcifications of visualized coronary arteries. Other findings as above. Electronically Signed: Roverto Beebe MD at 20:42 EST ,
[2022-02-03 19:42] LABS: Mucous, Urine 0 SEEN /hpf (<or=2+); Red Blood Cells-Urine 0 SEEN /hpf (0-5)
[2022-02-03 19:43] LABS: Color, Urine Yellow (Yellow); Glucose, Dipstick Normal (Normal); Ketone-Dipstick 5 mg/dl (Negative); Leukocyte Esterase-Dipstick 25 /ul (Negative); Nitrite-Dipstick Negative (Negative); Occult Blood-Urine Negative /ul (Negative); Protein-Dipstick 30 mg/dl (Negative); Urine Bilirubin Dipstick Negative (Negative); Urine Clarity Sl. Cloudy (Clear); Urine Urobilinogen Normal (Normal)
[2022-02-03 19:51] LABS: Bacteria RARE /hpf (None Seen); Squamous Epithelial Cells - UA 0-5 SEEN /hpf (5-10); White Blood Cells 0-5 SEEN /hpf (0-5)
[2022-02-03 19:55] LABS: ALB/GLOB Ratio 0.9 RATIO (0.9-2.4); AST(SGOT) 23 U/L (15-37); Alanine Aminotransfer ALT/SGPT 25 U/L (13-56); Albumin, Serum 3.5 g/dL (3.2-5.0); Alkaline Phosphatase 50 U/L (45-117); Anion Gap 10 (5-15); BUN 17 mg/dL (7-18); BUN/Creat Ratio 19.4 RATIO (10-20); Calcium,Total 8.8 mg/dL (8.5-10.1); Chloride 106 mmol/L (98-107); Creatinine, Serum 0.88 mg/dL (0.55-1.02); EST Glomerular Filtration Rate 72 mL/min (>60); Est Glom Filt Rate - Afr Amer 87 mL/min (>60); Estimated Creatinine Clearance 73.55 ml/min; Globulin 3.7 g/dL (2.2-4.2); Glucose 141 mg/dL (74-106); Internal QC Validated? YES +Cl - CLEAR BKGD; Lipase 382 U/L (73-393); Potassium 4.1 mmol/L (3.5-5.1); Pregnancy, Serum, hCG Quali. NEGATIVE Negative; Protein, Total 7.2 g/dL (6.4-8.2); Sodium Level 140 mmol/L (136-145)
[2022-02-03 20:02] LABS: Lactic Acid 1.3 mmol/L (0.4-1.9)
[2022-02-03 20:11] LABS: International Normalized Ratio 1.1; Prothrombin Time (Protime)PT. 13.5 SECONDS (11.7-14.9)
[2022-02-03 20:12] LABS: Partial Thromboplast Time 28.7 Seconds (24.1-36.2)
[2022-02-03] MEDS: Morphine 4 MG/ML Syringe IV (20:58)
[2022-02-03] MEDS: Ondansetron 4 MG/2 ML Vial IV (21:45)
--- NOTE | 2022-02-03 21:55 | HP.PCM.HOS_ITS ---
HPI - General General Date of Admission: 02/03/22 Date of Service: 02/03/22 Chief Complaint: Abdominal pain, fever, chills. HPI Narrative The patient is a 51 y/o F w/ PMHx: IDDM with insulin pump, Asthma, Psoriatic arthritis, HTN, HLD, Hypothyroidism, Chronic migraines, Morbid obesity, Pulmonary HTN, Anxiety and Depression who presents to the [facility] ED on 02/03/22 with history of onset abdominal discomfort intermittently over the last 2 weeks however on day of presentation approximately 3 PM while mowing the lawn she had sudden onset right sided abdominal discomfort with associated nausea with notably decreased appetite in addition to concurrent fevers and chills with no associated emesis or diarrhea prompting ED evaluation. She reports that all her foster children have been healthy and no one specifically been focally ill with similar symptoms. Patient reports that she has continued to have normal bowel movements of normal consistency and frequency. She does report that sometimes the abdominal discomfort is worse following oral intake which is prompted her to cut back on her oral intake. Work-up in the ED included T102.9, heart rate 131, BP 154/93, respiratory rate 18, 97% on room air, DC with WC 8.6, hemoglobin 11.5, MCV 80.4, platelet 222 with mildly increased neutrophils, unremarkable coags, CMP with glucose 141, lactic acid 1.3, lipase 382, negative testing, urinalysis unremarkable, rapid SARS COVID and influenza antigens negative, blood culture x2 pending per ED, urine culture pending per ED. In the ED patient ministered normal saline maintenance IV fluids, Tylenol 1000 mg p.o. x1, morphine 4 mg IV x1 as well as Zofran 4 mg IV x1. In the ED despite no marked findings on evaluation or imaging study the patient remains in pain and did also have bouts of emesis. ED noted intention to discuss admission with Dr. Agee per discussion with Hospitalist service. [facility] Medical History Allergies Arthritis Carpal tunnel syndrome delivery delivered Depression Gall stones Hearing problem Hepatitis A High blood triglycerides High cholesterol Hives Hypertension Hypothyroidism Migraines Morbid obesity with BMI of 45.0-49.9, adult Neuropathy Psoriatic arthritis Tonsillectomy planned Home Medications albuterol sulfate 90 mcg/actuation aerosol inhaler (Ventolin HFA) 1 puff inhalation Q4H PRN PRN Shortness Of Breath 12/01/13 [History Last Taken 02/02/19] epinephrine 0.3 mg/0.3 mL injection, auto-injector 0.3 mg (0.3 mL) IM PRN PRN Anaphylaxis ##2 12/01/13 [Rx Last Taken 02/02/19] metformin 750 mg tablet,extended release 24 hr (Glucophage XR) 1,000 mg PO BID 12/01/13 [History Last Taken 02/03/19] paroxetine HCl 30 mg tablet (Paxil) 40 mg PO DAILY 12/01/13 [History Last Taken 02/02/19] zolpidem 10 mg tablet (Ambien) 5 mg PO QHS 12/01/13 [History Last Taken 02/02/19] epinephrine 0.3 mg/0.3 mL injection, auto-injector 0.3 mg (0.3 mL) IJ X1 PRN Anaphylaxis ##1 02/03/19 [Rx Last Taken Unknown] apremilast 30 mg tablet (Otezla) 30 mg PO BID 02/03/21 [History Last Taken Unknown] atorvastatin 40 mg tablet 40 mg PO DAILY 02/03/21 [History Last Taken Unknown] cetirizine 10 mg tablet 10 mg PO DAILY 02/03/21 [History Last Taken Unknown] doxycycline monohydrate 100 mg capsule 100 mg PO BID #14 CAPSULES 02/03/21 [Rx Last Taken Unknown] lisinopril 40 mg tablet 40 mg PO DAILY 02/03/21 [History Last Taken Unknown] levothyroxine 50 mcg tablet ea PO 05/12/21 [History Last Taken Unknown] Trulicity 1.5 mg/0.5 mL subcutaneous pen injector (dulaglutide) 1.5 mg (0.5 mL) subcut QWEEK #2 mL 06/09/21 [Rx Last Taken Unknown] blood-glucose sensor (Dexcom G6 Sensor device) #3 ea 07/23/21 [Rx Last Taken Unknown] blood-glucose transmitter (Dexcom G6 Transmitter device) #1 ea 07/23/21 [Rx Last Taken Unknown] insulin lispro 100 unit/mL subcutaneous solution (Humalog U-100 Insulin) 100 unit continuous subcutaneous infusion .continuous #90 mL 07/28/21 [Rx Last Taken Unknown] ondansetron 4 mg disintegrating tablet 4 mg PO Q6H PRN nausea and vomiting #10 tabs 02/03/22 [Rx Last Taken Unknown] Allergy/AdvReac Type Severity Reaction Status Date / Time nut - unspecified Allergy Anaphylaxis Verified 02/03/22 18:49 peanut Allergy Anaphylaxis Verified 02/03/22 18:49 shellfish derived Allergy Anaphylaxis Verified 02/03/22 18:49 codeine AdvReac Rash Verified 02/03/22 18:49 prednisone AdvReac Other Verified 02/03/22 18:49 sertraline HCl [From Zoloft] AdvReac Other Verified 02/03/22 18:49 Family History Other Alcohol abuse Anxiety Arthritis Asthma Bleeding disorder Bowel disease Depression Diabetes Hypertension Severe allergy Surgical History History of cholecystectomy History of removal of ovarian cyst Social History household members: none Smoking Status: Never smoker alcohol intake: current alcohol intake frequency: 0-2 drinks per day substance use type: does not use what type of physical activity do you participate in: walking ROS ROS Narrative Admission Review of Systems: CONSTITUTIONAL: No weight loss, + fever, chills, weakness or fatigue. HEENT: Eyes: No visual loss, blurred vision, double vision or yellow sclerae. Ears, Nose, Throat: No hearing loss, sneezing, congestion, runny nose or sore throat. SKIN: No rash or itching, lesions, wounds. CARDIOVASCULAR: No chest pain, chest pressure or chest discomfort, palpitations, edema, orthopnea, syncopal events. RESPIRATORY: No shortness of breath, cough or sputum, wheezing, hemoptysis. GASTROINTESTINAL: + anorexia, nausea, vomiting, abdominal pain, No diarrhea, melena, BRBPR. GENITOURINARY: No dysuria, frequency, urgency or retention. NEUROLOGICAL: No headache, dizziness, syncope, paralysis, ataxia, numbness or tingling in the extremities, focal weakness, change in bowel or bladder control, seizure. MUSCULOSKELETAL: + muscle, back pain, joint pain or stiffness. HEMATOLOGIC: No anemia, bleeding or bruising. LYMPHATICS: No enlarged nodes. No history of splenectomy. PSYCHIATRIC: + history of depression or anxiety. ENDOCRINOLOGIC: No reports of sweating, cold or heat intolerance. No polyuria or polydipsia. ALLERGIES: + history of asthma, hives, rhinitis. Vital Signs Vital Signs Vital Signs: 02/03/22 18:47 02/03/22 19:05 02/03/22 18:49 Temperature 102.9 F H 102.9 F H Temperature Source Temporal Temporal Pulse Rate 131 H 131 H Respiratory Rate 18 18 Respiratory Effort Respiratory Pattern Blood Pressure 154/93 H 154/93 H Blood Pressure Mean 113 113 Pulse Ox 97 97 Oxygen Delivery Method Room Air Room Air Room Air 02/03/22 19:29 02/03/22 19:49 02/03/22 20:46 Temperature 99.8 F H Temperature Source Oral Pulse Rate 92 111 H Respiratory Rate 20 H 20 H Respiratory Effort Normal Non-Labored Respiratory Pattern Normal Blood Pressure 143/88 H 145/84 H Blood Pressure Mean 106 104 Pulse Ox 97 94 Oxygen Delivery Method Room Air Room Air Weight Weight: 250 lb Body Mass Index (BMI) 39.1 Physical Exam Narrative Physical Examination: General: Awake, alert, oriented x 3 and cooperative, laying in the ED bed, anxious, holding emesis bag with recent emesis. Skin: Normal color, normal turgor, no icterus, no cyanosis. HEENT: AT/NC, EOMI, PERRLA, dry MM, no carotid bruits or JVD noted. Lungs: Distant, diminished, greater bases, poor effort, no evidence of any respiratory distress, no rales, ronchi or wheezing. Heart: Improved, mildly tachycardic with regular rhythm; no gallop, rub audible. Abdomen: Soft, morbidly obese, tenderness palpation in the right upper and lower quadrants primarily with voluntary guarding, difficult to assess distention given habitus, mildly hyperactive bowel sounds, no obvious HSM however difficult exam given habitus and pain. Extremities: No cyanosis, clubbing, or edema. Neurological: Patient awake, alert, oriented as noted, cognitive function intact; pupils equally reactive to light and accommodation, cranial nerves II- XII grossly normal, moving all 4 extremities, no focal deficits, strength moderately global decrease secondary to acute complaints. Psychiatric: Affect appears anxious, uncomfortable, no acute evidence of depressive feelings. Results Lab / Micro Data Result Diagrams: 02/03/22 19:20 02/03/22 19:20 Labs: Laboratory Results - last 24 hr 02/03/22 19:20: WBC 8.6, RBC 4.48, Hgb 11.5 L, Hct 36.0 L, MCV 80.4 L, MCH 25.7 L, MCHC 31.9 L, RDW Std Deviation 38.9, RDW Coeff of Libby 13.4, Plt Count 222, MPV 10.0, Immature Gran % (Auto) 0.300, Neut % (Auto) 81.0 H, Lymph % (Auto) 10.7 L, Thomas % (Auto) 5.9, Eos % (Auto) 2.0, Baso % (Auto) 0.1, Absolute Neuts (auto) 7.0, Absolute Lymphs (auto) 0.92, Nucleated RBC % 0 02/03/22 19:20: PT 13.5, INR 1.1, APTT 28.7 02/03/22 19:20: Sodium 140, Potassium 4.1, Chloride 106, Carbon Dioxide 24.0, Anion Gap 10, BUN 17, Creatinine 0.88, Estim Creat Clear Calc 73.55, Est GFR (MDRD) Af Amer 87, Est GFR (MDRD) Non-Af 72, BUN/Creatinine Ratio 19.4, Glucose 141 H, Calcium 8.8, Total Bilirubin 0.50, AST 23, ALT 25, Alkaline Phosphatase 50, Total Protein 7.2, Albumin 3.5, Globulin 3.7, Albumin/Globulin Ratio 0.9, Lipase 382 02/03/22 19:20: Lactic Acid 1.3 02/03/22 19:20: Serum , Qual NEGATIVE 02/03/22 19:34: Urine Color Yellow, Urine Clarity Sl. Cloudy, Urine pH 8.0, Ur Specific Sheldon 1.010, Urine Protein 30 H, Urine Glucose (UA) Normal, Urine Ketones 5 H, Urine Occult Blood Negative, Urine Nitrite Negative, Urine Bilirubin Negative, Urine Urobilinogen Normal, Ur Leukocyte Esterase 25 H, Urine RBC 0 SEEN, Urine WBC 0-5 SEEN, Ur Squamous Epith Cells 0-5 SEEN, Urine Bacteria RARE, Urine Mucus 0 SEEN Micro: Microbiology 02/03/22 19:14 Nasal Secretion SARS-CoV-2 & FLU Antigen (Rapid) - Final Radiology Impression Abdomen/Pelvis CT 02/03/22 19:40 IMPRESSION: (NOT LISTED IN ORDER OF SIGNIFICANCE) There are no acute findings. The appendix is visualized and appears unremarkable. There are atherosclerotic calcifications of visualized coronary arteries. Other findings as above. Electronically Signed: Roverto Beebe MD at 20:42 EST Reading Location ID and State: [facility] / [place] , Service support , Assessment & Plan Assessment/Plan (1) SIRS (systemic inflammatory response syndrome): (2) Abdominal pain: PLAN: Plan The patient is a 51 y/o F w/ PMHx: IDDM with insulin pump, Asthma, Psoriatic arthritis, HTN, HLD, Hypothyroidism, Chronic migraines, Morbid obesity, Pulmonary HTN, Anxiety and Depression who presents to the [facility] ED on 02/03/22 with history of onset abdominal discomfort intermittently over the last 2 weeks however on day of presentation approximately 3 PM while mowing the lawn she had sudden onset right sided abdominal discomfort with associated nausea with notably decreased appetite in addition to concurrent fevers and chills with no associated emesis or diarrhea prompting ED evaluation. #1. Abdominal pain with fevers and chills/SIRS of unclear etiology: CT abdomen pelvis not marked appearing, urinalysis unremarkable, blood culture x2 pending per ED, urine culture pending per ED, will admit to medical surgical floor, will obtain COVID PCR as well as full respiratory viral panel be cautious, CT abdomen pelvis of note was performed without contrast thus not the best imaging modality given her abdominal pain, will request surgery evaluation for recommendations and defer immediate imaging pending their evaluation, procalcitonin requested, will maintain NPO until pain improving, N/V subsiding, maintain on IV PPI in interim. #2. Chronic asthma with allergic rhinitis: Patient from current list not on chronic inhalers only as needed albuterol which will be continued, continue apremilast as well as chronic cetirizine regimen. #3. Hypertension: Continue home regimen including lisinopril with hold parameters as needed, PRN hydralazine. #4. Hyperlipidemia: We will continue patient on statin therapy. #5. Morbid Obesity: Weight loss and lifestyle changes encouraged. #6. 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 #7. Anxiety and depression: We will continue patient home paroxetine regimen. #8. Hypothyroidism: We will continue patient home levothyroxine regimen. #9. Chronic anemia, microcytic: Admission hemoglobin 11.5, baseline prior appears primarily 10-11, will obtain iron panel, ferritin be cautious, MCV 80.4, repeat level in AM. #10. DVT prophylaxis: SCDs, Lovenox. Charges/Coding Visit Charges OBSV E&M: 84533 Initial observation care L3
[2022-02-03 22:54] LABS: Procalcitonin 0.08 ng/mL (0.00-0.09)
[2022-02-03] MEDS: proCHLORPERazine 10 MG/2 ML Vial 5 MG IV (23:46)
[2022-02-03] MEDS: Acetaminophen 325 MG Tablet 650 MG PO (23:47)
[2022-02-03] MEDS: 0.9% Normal Saline 1,000 ML 125 ML IV (23:49)
[2022-02-03] MEDS: 0.9% Saline Lock 10 ML Syringe IV (23:53)
[2022-02-04] VITALS (11 sets, daily range): BP systolic 99–133; BP diastolic 62–67; PULSE 65–93; RESP 16–18; TEMP 36.3–37.7; O2SAT 94–99
[2022-02-04] MEDS: Morphine 2 MG/ML Syringe IV (00:09)
[2022-02-04] MEDS: 0.9% Normal Saline 1,000 ML 999 ML IV (00:23)
[2022-02-04 00:45] LABS: Bedside Glucose 140 mg/dL (74-106)
[2022-02-04] MEDS: 0.9% Normal Saline 1,000 ML 125 ML IV ×2 (03:30→13:57)
[2022-02-04] MEDS: Levothyroxine 50 MCG Tablet PO (05:22)
[2022-02-04 05:37] LABS: Absolute Lymphocyte Count 0.67 X10^3/uL (0.83-4.51); Absolute Neutrophil Count 3.7 X10^3/uL (2.0-7.7); Basophil# 0.02 X10^3/uL; Basophil% 0.4 % (0-1); Eosinophil# 0.05 X10^3/uL; Hematocrit 33.6 % (37-47); Hemoglobin 11.1 g/dL (12.0-15.0); Lymphocyte # 0.67 X10^3/ul (0.83-4.51); Lymphocyte % 13.8 % (19-41); Mean Corpuscular Hgb 26.4 pg (27.0-32.0); Mean Platelet Vol. 10.1 fl (6.2-12.0); Monocyte# 0.39 X10^3/uL; NRBC Flagged by Analyzer 0 % (0-5); Neutrophil # 3.72 X10^3/uL (2.7-7.7); Neutrophil % 76.4 % (47-70); Platelet Count 209 K/mm3 (150-450); RBC Distribution Width CV 13.8 % (11.6-14.6); RBC Distribution Width SD 39.6 fl (35.1-43.9); White Blood Count 4.9 K/mm3 (4.4-11.0)
[2022-02-04 05:46] LABS: Bedside Glucose 130 mg/dL (74-106)
[2022-02-04 06:04] LABS: ALB/GLOB Ratio 0.9 RATIO (0.9-2.4); AST(SGOT) 225 U/L (15-37); Alanine Aminotransfer ALT/SGPT 135 U/L (13-56); Alkaline Phosphatase 62 U/L (45-117); Anion Gap 7 (5-15); BUN 17 mg/dL (7-18); BUN/Creat Ratio 18.8 RATIO (10-20); Calcium,Total 7.8 mg/dL (8.5-10.1); Chloride 109 mmol/L (98-107); EST Glomerular Filtration Rate 70 mL/min (>60); Est Glom Filt Rate - Afr Amer 84 mL/min (>60); Estimated Creatinine Clearance 71.91 ml/min; Ferritin 36 ng/mL (8-252); Globulin 3.5 g/dL (2.2-4.2); Glucose 148 mg/dL (74-106); Iron 29 ug/dL (50-170); Iron Binding Capacity,Total 373 ug/dL (250-450); PERCENT IRON SATURATION 7.8 % (15.0-55.0); Potassium 3.9 mmol/L (3.5-5.1); Protein, Total 6.5 g/dL (6.4-8.2); Sodium Level 142 mmol/L (136-145)
--- NOTE | 2022-02-04 07:11 | CON.PCM.SX_ITS ---
Assessment & Plan Assessment/Plan (1) Abdominal pain, RLQ: (2) Nausea: PLAN: Plan Patient had a noncontrast contrasted CT abdomen pelvis not show anything acutely?personally reviewed. Patient still having right lower quadrant pain. We will plan to check CT abdomen pelvis with IV and p.o. contrast to evaluate further. Addendum: Patient had a follow-up CT due to the contrast not being in the colon for better evaluation of the terminal ileum and colon-as initially was only able to delineate the proximal appendix as there is a lot of small bowel near the cecum. Follow-up CT shows normal appendix no inflammation in this area. Patient's pain is also more in the right groin as her cecum is more up by her iliac crest. Patient has no hernia on exam or seen on CT. No plans for surgical intervention. Discussed with patient and primary. Jodi Agee M.D. Pager: [phone] [facility] [address] [place] [address], [facility], [address] [place] [address] Office: [phone] HPI Consult Data Date of Consult: 02/05/22 HPI Narrative HPI Narrative: ARLEN NGUYEN, is a 51 F who presents to the ER due to right lower quadrant pain. That got worse yesterday. Patient rates it 4-6/10 currently. Patient states it is a 10 on 10 when she came in. Patient states she is also had some periumbilical pain for about the last 2 weeks. Patient's last bowel movement was yesterday. Patient had some nausea and vomiting along with this. Patient denies ever having previous pain like this recently. Did state years ago she had issues with ovarian cyst but did not really think they felt like this. Patient had a noncontrasted CT abdomen pelvis did not show anything acutely. Patient white blood count is normal had initially a little bit of the left shift which has actually improved today but still at 76 for neutrophils. Patient does report she is not hungry. She did have a fever of 102.9 in the ER current patient temperature is 99. Patient also had elevated ALT and AST this morning w hich were normal yesterday. [facility] Medical History (Updated 02/03/22 @ 23:22 by Aixa Booker) Allergies Arthritis Carpal tunnel syndrome delivery delivered Depression Gall stones Hearing problem Hepatitis A High blood triglycerides High cholesterol Hives Hypertension Hypothyroidism Insulin pump in place Kidney disease Migraines Morbid obesity with BMI of 45.0-49.9, adult Neuropathy Psoriatic arthritis Tonsillectomy planned Home Medications albuterol sulfate 90 mcg/actuation aerosol inhaler (Ventolin HFA) 1 puff inhalation Q4H PRN PRN Shortness Of Breath 12/01/13 [History Last Taken 01/28/22] epinephrine 0.3 mg/0.3 mL injection, auto-injector 0.3 mg (0.3 mL) IM PRN PRN Anaphylaxis ##2 12/01/13 [Rx Last Taken 02/02/19] metformin 750 mg tablet,extended release 24 hr (Glucophage XR) 1,000 mg PO BID 12/01/13 [History Last Taken 02/03/22] paroxetine HCl 30 mg tablet (Paxil) 40 mg PO DAILY 12/01/13 [History Last Taken 02/04/22] zolpidem 10 mg tablet (Ambien) 5 mg PO QHS 12/01/13 [History Last Taken 02/03/22] epinephrine 0.3 mg/0.3 mL injection, auto-injector 0.3 mg (0.3 mL) IJ X1 PRN Anaphylaxis ##1 02/03/19 [Rx Last Taken Unknown] atorvastatin 40 mg tablet 40 mg PO DAILY 02/03/21 [History Last Taken 02/03/22] cetirizine 10 mg tablet 10 mg PO DAILY 02/03/21 [History Last Taken 02/03/22] lisinopril 40 mg tablet 40 mg PO DAILY 02/03/21 [History Last Taken 02/04/22] blood-glucose sensor (Dexcom G6 Sensor device) #3 ea 07/23/21 [Rx Last Taken Unknown] blood-glucose transmitter (Dexcom G6 Transmitter device) #1 ea 07/23/21 [Rx Last Taken Unknown] insulin lispro 100 unit/mL subcutaneous solution (Humalog U-100 Insulin) 100 unit continuous subcutaneous infusion .continuous #90 mL 07/28/21 [Rx Last Taken 02/04/22] ondansetron 4 mg disintegrating tablet 4 mg PO Q6H PRN nausea and vomiting #10 tabs 02/03/22 [Rx Last Taken Unknown] Allergy/AdvReac Type Severity Reaction Status Date / Time nut - unspecified Allergy Anaphylaxis Verified 02/03/22 18:49 peanut Allergy Anaphylaxis Verified 02/03/22 18:49 shellfish derived Allergy Anaphylaxis Verified 02/03/22 18:49 codeine AdvReac Rash Verified 02/03/22 18:49 prednisone AdvReac Other Verified 02/03/22 18:49 sertraline HCl [From Zoloft] AdvReac Other Verified 02/03/22 18:49 Family History Other Alcohol abuse Anxiety Arthritis Asthma Bleeding disorder Bowel disease Depression Diabetes Hypertension Severe allergy Surgical History History of cholecystectomy History of removal of ovarian cyst Social History household members: none Smoking Status: Never smoker alcohol intake: current alcohol intake frequency: 0-2 drinks per day substance use type: does not use what type of physical activity do you participate in: walking ROS Constitutional Constitutional: Reports anorexia and fever(s) Eyes Eyes: Denies change in vision ENT HEENT: Denies dysphagia Cardiovascular Cardiovascular: Denies chest pain Respiratory/Chest Respiratory/Chest: Denies cough Gastrointestinal Gastrointestinal: Reports abdominal pain, nausea and vomiting; Denies constipation or dysphagia Genitourinary Genitourinary: Denies dysuria Musculoskeletal Musculoskeletal: Denies joint swelling Integumentary Integumentary: Denies jaundice Neurologic Neurologic: Denies dizziness Psychiatric Psychiatric: Denies depression Endocrine Endocrinology: Denies palpitations Hematologic/Lymphatic Hematologic/Lymphatic: Denies easy bleeding Physical Exam Const alert, oriented x3 and no apparent distress HEENT normocephalic and head/scalp atraumatic Resp normal respiratory effort Cardio regular rate GI soft to palpation; Negative for non-distended Palpation: tender RLQ (Right groin); Negative for guarding Extremity no clubbing, cyanosis or edema Neuro CN's II-XII intact bilaterally Psych mental status grossly normal Lab / Micro Data Result Diagrams: 02/05/22 06:06 02/05/22 06:06 Labs: Laboratory Results - last 24 hr 02/03/22 19:20: WBC 8.6, RBC 4.48, Hgb 11.5 L, Hct 36.0 L, MCV 80.4 L, MCH 25.7 L, MCHC 31.9 L, RDW Std Deviation 38.9, RDW Coeff of Libby 13.4, Plt Count 222, MPV 10.0, Immature Gran % (Auto) 0.300, Neut % (Auto) 81.0 H, Lymph % (Auto) 10.7 L, Eaton % (Auto) 5.9, Eos % (Auto) 2.0, Baso % (Auto) 0.1, Absolute Neuts (auto) 7.0, Absolute Lymphs (auto) 0.92, Nucleated RBC % 0 02/03/22 19:20: PT 13.5, INR 1.1, APTT 28.7 02/03/22 19:20: Sodium 140, Potassium 4.1, Chloride 106, Carbon Dioxide 24.0, Anion Gap 10, BUN 17, Creatinine 0.88, Estim Creat Clear Calc 73.55, Est GFR (MDRD) Af Amer 87, Est GFR (MDRD) Non-Af 72, BUN/Creatinine Ratio 19.4, Glucose 141 H, Calcium 8.8, Total Bilirubin 0.50, AST 23, ALT 25, Alkaline Phosphatase 50, Total Protein 7.2, Albumin 3.5, Globulin 3.7, Albumin/Globulin Ratio 0.9, Lipase 382 02/03/22 19:20: Lactic Acid 1.3 02/03/22 19:20: Serum , Qual NEGATIVE 02/03/22 19:20: Procalcitonin 0.08 02/03/22 19:34: Urine Color Yellow, Urine Clarity Sl. Cloudy, Urine pH 8.0, Ur Specific Dendron 1.010, Urine Protein 30 H, Urine Glucose (UA) Normal, Urine Ketones 5 H, Urine Occult Blood Negative, Urine Nitrite Negative, Urine Bili denis Negative, Urine Urobilinogen Normal, Ur Leukocyte Esterase 25 H, Urine RBC 0 SEEN, Urine WBC 0-5 SEEN, Ur Squamous Epith Cells 0-5 SEEN, Urine Bacteria RARE, Urine Mucus 0 SEEN 02/04/22 00:03: POC Glucose 140 H 02/04/22 04:43: WBC 4.9, RBC 4.20, Hgb 11.1 L, Hct 33.6 L, MCV 80.0 L, MCH 26.4 L, MCHC 33.0, RDW Std Deviation 39.6, RDW Coeff of Libby 13.8, Plt Count 209, MPV 10.1, Immature Gran % (Auto) 0.400, Neut % (Auto) 76.4 H, Lymph % (Auto) 13.8 L, Eaton % (Auto) 8.0, Eos % (Auto) 1.0, Baso % (Auto) 0.4, Absolute Neuts (auto) 3.7, Absolute Lymphs (auto) 0.67 L, Nucleated RBC % 0 02/04/22 04:43: Sodium 142, Potassium 3.9, Chloride 109 H, Carbon Dioxide 26.0, Anion Gap 7, BUN 17, Creatinine 0.90, Estim Creat Clear Calc 71.91, Est GFR (MDRD) Af Amer 84, Est GFR (MDRD) Non-Af 70, BUN/Creatinine Ratio 18.8, Glucose 148 H, Calcium 7.8 L, Iron 29 L, TIBC 373, Iron Saturation 7.8 L, Ferritin 36, Total Bilirubin 0.60, AST 225 H, ALT 135 H, Alkaline Phosphatase 62, Total Protein 6.5, Albumin 3.0 L, Globulin 3.5, Albumin/Globulin Ratio 0.9 02/04/22 05:22: POC Glucose 130 H Micro: Microbiology 02/04/22 00:11 Mucosa - Nasopharyngeal Respiratory Panel (PCR) - Final 02/03/22 19:14 Nasal Secretion SARS-CoV-2 & FLU Antigen (Rapid) - Final Radiology Impression Abdomen/Pelvis CT 02/03/22 19:40 IMPRESSION: (NOT LISTED IN ORDER OF SIGNIFICANCE) There are no acute findings. The appendix is visualized and appears unremarkable. There are atherosclerotic calcifications of visualized coronary arteries. Other findings as above. Electronically Signed: Roverto Beebe MD at 20:42 EST , Charges/Coding Visit Charges Inpatient E&M: 87015 Init Hosp L3
--- NOTE | 2022-02-04 07:26 | CT_ITS ---
STUDY: CT ABDOMEN AND PELVIS WITH CONTRAST REASON FOR EXAM: Female, 51 years old. Abdominal pain, with IV and PO contrast RADIATION DOSAGE (If Supplied By Facility): CTDIvol = ( 22.00 ) mGy, DLP = ( 1404.23 ) mGycm TECHNIQUE: Transaxial images were obtained from the dome of the diaphragm to the symphysis pubis with oral contrast. Oral and amp; IV Gastrografin and amp; 100mL Isovue-300 was administered. Sagittal and coronal images were reconstructed. Individualized dose optimization techniques were used for this CT. COMPARISON: Comparison is made with prior study dated 02/03/2022. FINDINGS: Stable minimal increased markings at the right lung base. Coronary artery calcification. Normal liver. There are surgical clips in the gallbladder fossa consistent with a prior cholecystectomy. Normal spleen. Normal pancreas. Normal bilateral adrenal glands. Normal right kidney. Normal left kidney. Normal visualized stomach. Normal small intestine. Normal colon. The appendix is visualized and appears normal. There is scattered atherosclerotic calcification of the abdominal aorta, without a demonstrated aneurysm. Normal inferior vena cava. There is borderline retroperitoneal lymphadenopathy with enlarged nodes no greater than 10mm in the short axis diameter. Normal urinary bladder. Calcified phleboliths are seen in the pelvis. There is a small umbilical hernia containing fat. There are diffuse degenerative changes of the visualized lumbar spine. CT/Abdomen/Pelvis WITH Contrast IMPRESSION: Stable examination. No acute abnormality is seen. Electronically Signed: Michel Alfred MD at 9:58 EST ,
[2022-02-04] MEDS: Paroxetine 20 MG Tablet 40 MG PO (10:39)
[2022-02-04] MEDS: Loratadine 10 MG Tablet PO (10:39)
[2022-02-04] MEDS: Lisinopril 40 MG Tablet PO (10:39)
[2022-02-04] MEDS: Enoxaparin 40 MG/0.4 ML Syringe SC (10:40)
--- NOTE | 2022-02-04 10:50 | CASEMGMT ---
RN CM Face to Face with patient for initial transition planning/care coordination assessment. RN CM introduced self and role at [facility]. Patient lying in bed, alert and oriented. Patient willing to participate in assessment and is able to answer all questions appropriately. Care providers, pharmacy, and demographics verified. Patient wishes to discharge home, denies need for home health at this time. Patient states she has no further needs or concerns at this time. CM to follow for discharge planning needs that may arise. PCP: Alexis Specialists: [employer] Preferred Pharmacy: [facility] Insurance: [employer] Prescription Benefit: yes Living Will/HPOA: yes, daughter Tati Conn LNOK: , daughter Living Arrangements: Patient lives with in a single story home with 2 steps and railing to enter the home. Patient is independent at home. Transportation: self, DME/HHC: Patient denies need for DME in the home. NO previous HHC. Disposition Plan: Patient to discharge home with family support and follow-up plans in place. Mercy VARELA, RN, CM
--- NOTE | 2022-02-04 11:02 | CT_ITS ---
STUDY: CT ABDOMEN WITHOUT CONTRAST REASON FOR EXAM: Female, 51 years old. rlq pain -- no contrast-just had PO want contrast at TI/colon RADIATION DOSAGE (If Supplied By Facility): CTDIvol = ( 24.18 ) mGy, DLP = ( 923.98 ) mGycm TECHNIQUE: Transaxial images were obtained without intravenous contrast, and with oral contrast. Sagittal and coronal images were reconstructed. Individualized dose optimization techniques were used for this CT. COMPARISON: Comparison is made with prior examination done earlier in the day. FINDINGS: Oral contrast is now seen in the colon. The appendix is unremarkable. CT/Abdomen without IV Contrast IMPRESSION: Oral contrast is seen in the colon. The appendix is unremarkable. Electronically Signed: Michel Alfred MD at 12:54 EST ,
--- NOTE | 2022-02-04 13:49 | PN.HOSP_ITS ---
Subjective Subjective Patient was seen and examined today, she still complains of right lower quadrant abdominal pain, I talked extensively with general surgery about her care, we got an oral contrasted CT of the abdomen on the patient and there are no signs of any surgical abdomen so at this point, we are going to further observe the p atient and continue her on fluids and not start any antibiotics. Patient's T- max today was 99.7. Objective Data Objective Data Vital Signs: Vital Signs Temp Pulse Resp BP Pulse Ox O2 Del Method 98.6 F 73 18 133/66 H 94 Room Air 02/04/22 10:55 02/04/22 10:55 02/04/22 10:55 02/04/22 10:55 02/04/22 11:00 02/04/22 11:00 Oxygen Delivery Method Room Air Weight: 118.3 kg Body Mass Index (BMI) 40.9 Intake & Output: Intake and Output for Last 24 Hours 02/02/22 02/03/22 02/04/22 23:59 23:59 23:59 Intake Total 3921.25 / 3921.25 Balance 3921.25 / 3921.25 Lab / Micro Data Result Diagrams: 02/04/22 04:43 02/04/22 04:43 Labs: Laboratory Results - last 24 hr 02/03/22 19:20: WBC 8.6, RBC 4.48, Hgb 11.5 L, Hct 36.0 L, MCV 80.4 L, MCH 25.7 L, MCHC 31.9 L, RDW Std Deviation 38.9, RDW Coeff of Libby 13.4, Plt Count 222, MPV 10.0, Immature Gran % (Auto) 0.300, Neut % (Auto) 81.0 H, Lymph % (Auto) 10.7 L, Donley % (Auto) 5.9, Eos % (Auto) 2.0, Baso % (Auto) 0.1, Absolute Neuts (auto) 7.0, Absolute Lymphs (auto) 0.92, Nucleated RBC % 0 02/03/22 19:20: PT 13.5, INR 1.1, APTT 28.7 02/03/22 19:20: Sodium 140, Potassium 4.1, Chloride 106, Carbon Dioxide 24.0, Anion Gap 10, BUN 17, Creatinine 0.88, Estim Creat Clear Calc 73.55, Est GFR (MDRD) Af Amer 87, Est GFR (MDRD) Non-Af 72, BUN/Creatinine Ratio 19.4, Glucose 141 H, Calcium 8.8, Total Bilirubin 0.50, AST 23, ALT 25, Alkaline Phosphatase 50, Total Protein 7.2, Albumin 3.5, Globulin 3.7, Albumin/Globulin Ratio 0.9, Lipase 382 02/03/22 19:20: Lactic Acid 1.3 02/03/22 19:20: Serum , Qual NEGATIVE 02/03/22 19:20: Procalcitonin 0.08 02/03/22 19:34: Urine Color Yellow, Urine Clarity Sl. Cloudy, Urine pH 8.0, Ur Specific [place] 1.010, Urine Protein 30 H, Urine Glucose (UA) Normal, Urine Ketones 5 H, Urine Occult Blood Negative, Urine Nitrite Negative, Urine Bilirubin Negative, Urine Urobilinogen Normal, Ur Leukocyte Esterase 25 H, Urine RBC 0 SEEN, Urine WBC 0-5 SEEN, Ur Squamous Epith Cells 0-5 SEEN, Urine Bacteria RARE, Urine Mucus 0 SEEN 02/04/22 00:03: POC Glucose 140 H 02/04/22 04:43: WBC 4.9, RBC 4.20, Hgb 11.1 L, Hct 33.6 L, MCV 80.0 L, MCH 26.4 L, MCHC 33.0, RDW Std Deviation 39.6, RDW Coeff of Libby 13.8, Plt Count 209, MPV 10.1, Immature Gran % (Auto) 0.400, Neut % (Auto) 76.4 H, Lymph % (Auto) 13.8 L, Donley % (Auto) 8.0, Eos % (Auto) 1.0, Baso % (Auto) 0.4, Absolute Neuts (auto) 3.7, Absolute Lymphs (auto) 0.67 L, Nucleated RBC % 0 02/04/22 04:43: Sodium 142, Potassium 3.9, Chloride 109 H, Carbon Dioxide 26.0, Anion Gap 7, BUN 17, Creatinine 0.90, Estim Creat Clear Calc 71.91, Est GFR (MDRD) Af Amer 84, Est GFR (MDRD) Non-Af 70, BUN/Creatinine Ratio 18.8, Glucose 148 H, Calcium 7.8 L, Iron 29 L, TIBC 373, Iron Saturation 7.8 L, Ferritin 36, Total Bilirubin 0.60, AST 225 H, ALT 135 H, Alkaline Phosphatase 62, Total Protein 6.5, Albumin 3.0 L, Globulin 3.5, Albumin/Globulin Ratio 0.9 02/04/22 05:22: POC Glucose 130 H Micro: Microbiology 02/03/22 19:34 Urine, Clean Catch Urine Culture - Preliminary Culture exhibits no growth. 02/04/22 00:11 Mucosa - Nasopharyngeal Respiratory Panel (PCR) - Final 02/03/22 19:14 Nasal Secretion SARS-CoV-2 & FLU Antigen (Rapid) - Final Radiography Diagnostic Testing: Radiology Impression Abdomen/Pelvis CT 02/03/22 19:40 IMPRESSION: (NOT LISTED IN ORDER OF SIGNIFICANCE) There are no acute findings. The appendix is visualized and appears unremarkable. There are atherosclerotic calcifications of visualized coronary arteries. Other findings as above. Electronically Signed: Roverto Beebe MD at 20:42 EST , Abdomen/Pelvis CT 02/04/22 07:26 IMPRESSION: Stable examination. No acute abnormality is seen. Electronically Signed: Michel Alfred MD at 9:58 EST , Abdomen CT 02/04/22 11:02 IMPRESSION: Oral contrast is seen in the colon. The appendix is unremarkable. Electronically Signed: Michel Alfred MD at 12:54 EST , Physical Exam Const alert and oriented x3 Constitutional Narrative: Patient is morbidly obese HEENT head/scalp atraumatic and moist oral mucous membranes Eyes PERRL and EOMs intact bilaterally Neck supple and no JVD Resp normal respiratory effort, no retractions, no use of accessory muscles and clear to auscultation bilaterally Cardio regular rate, regular rhythm, S1 normal heart sound, S2 normal heart sound, no murmurs and no rub GI soft to palpation and non-distended GI Narrative: Patient has right lower quadrant abdominal tenderness to palpation, there is no rebound abdominal tenderness noted. Extremity normal to inspection Neuro oriented x3, CN's II-XII intact bilaterally, moves all extremities and no focal motor deficits Sensorium / Orientation: awake, alert, oriented to person, oriented to place and oriented to time Psych affect normal Assessment & Plan Assessment/Plan (1) Abdominal pain: PLAN: Plan 1. Right lower quadrant abdominal pain-etiology unclear at this point, patient will continue on IV fluids and IV pain medications as needed, labs will be rechecked tomorrow, general surgery is participating the patient's care #2 febrile illness-etiology unclear at this point, possibly could be viral in nature, again patient's medical condition will be monitored, labs will be repeated tomorrow. Patient's respiratory panel and COVID test were unremarkable. #3 elevated liver enzymes-etiology unclear at this point, I will obtain hepatitis panel and the patient, labs will be repeated tomorrow #4 morbid obesity-complicates care, management, recovery, and prognosis #5 type 2 diabetes-blood sugars will be monitored, patient is on an insulin pump #6 chronic depression-patient will remain on her current medications #7 hypothyroidism-patient will remain on Synthroid Charges/Coding Visit Charges OBSV E&M: 54392 Subsequent observation care L3
[2022-02-04 14:29] LABS: Internal QC Validated? YES +Cl - CLEAR BKGD; Monotest Negative (Negative)
[2022-02-04] MEDS: Dext 5%-0.45% NS 1,000 ML 125 ML IV (16:57)
[2022-02-04] MEDS: Acetaminophen 325 MG Tablet 650 MG PO (18:53)
[2022-02-04] MEDS: Atorvastatin Calcium 40 MG Tablet PO (21:29)
[2022-02-04] MEDS: MELATONIN 3 MG TABLET PO (21:29)
[2022-02-04 23:46] LABS: Bedside Glucose 116 mg/dL (74-106)
[2022-02-05] MEDS: Dext 5%-0.45% NS 1,000 ML 125 ML IV ×2 (00:53→09:55)
[2022-02-05 02:05] VITALS: BP 108/50; PULSE 71; RESP 16; TEMP 36.8; O2SAT 94
[2022-02-05 06:45] LABS: Absolute Lymphocyte Count 2.34 X10^3/uL (0.83-4.51); Absolute Neutrophil Count 1.7 X10^3/uL (2.0-7.7); Basophil# 0.01 X10^3/uL; Basophil% 0.2 % (0-1); Eosinophil# 0.22 X10^3/uL; Eosinophils% 4.4 % (0-5); Hematocrit 32.3 % (37-47); Lymphocyte # 2.34 X10^3/ul (0.83-4.51); Lymphocyte % 47.3 % (19-41); Mean Corpuscular Hgb 25.6 pg (27.0-32.0); Mean Corpuscular Volume 82.6 fL (81-99); Mean Platelet Vol. 10.1 fl (6.2-12.0); Monocyte# 0.69 X10^3/uL; Monocyte% 13.9 % (0-10); NRBC Flagged by Analyzer 0 % (0-5); Neutrophil # 1.67 X10^3/uL (2.7-7.7); Neutrophil % 33.8 % (47-70); Platelet Count 190 K/mm3 (150-450); RBC Distribution Width SD 41.7 fl (35.1-43.9); Red Blood Count 3.91 M/mm3 (4.2-5.4)
[2022-02-05 06:46] LABS: Bedside Glucose 133 mg/dL (74-106)
[2022-02-05 07:20] LABS: AST(SGOT) 53 U/L (15-37); Alanine Aminotransfer ALT/SGPT 72 U/L (13-56); Albumin, Serum 2.7 g/dL (3.2-5.0); Alkaline Phosphatase 50 U/L (45-117); Anion Gap 3 (5-15); BUN 11 mg/dL (7-18); BUN/Creat Ratio 12.4 RATIO (10-20); Bilirubin, Direct 0.15 mg/dL (0.00-0.30); Calcium,Total 7.8 mg/dL (8.5-10.1); Chloride 110 mmol/L (98-107); Creatinine, Serum 0.89 mg/dL (0.55-1.02); EST Glomerular Filtration Rate 71 mL/min (>60); Est Glom Filt Rate - Afr Amer 86 mL/min (>60); Estimated Creatinine Clearance 72.72 ml/min; Globulin 3.2 g/dL (2.2-4.2); Glucose 123 mg/dL (74-106); Potassium 3.4 mmol/L (3.5-5.1); Protein, Total 5.9 g/dL (6.4-8.2); Sodium Level 143 mmol/L (136-145)
[2022-02-05] MEDS: Acetaminophen 325 MG Tablet 650 MG PO (08:39)
--- NOTE | 2022-02-05 08:50 | CASEMGMT ---
Social Work As per initial laundry machine tender, pt indicated has LW/POA but not on file, and unable to bring in at this time. Pt indicated Nakul Ricks is POA. CHU Enciso
[2022-02-05 09:25] VITALS: BP 100/56; PULSE 61; RESP 16; TEMP 36.2; O2SAT 95
[2022-02-05] MEDS: Enoxaparin 40 MG/0.4 ML Syringe SC (09:55)
[2022-02-05] MEDS: Paroxetine 20 MG Tablet 40 MG PO (09:56)
[2022-02-05] MEDS: Loratadine 10 MG Tablet PO (09:56)
[2022-02-05 13:56] VITALS: O2SAT 95
[2022-02-05 14:34] VITALS: BP 117/58; PULSE 69; RESP 18; TEMP 36.8; O2SAT 98
--- NOTE | 2022-02-05 15:12 | DCINST_ITS ---
Discharge Instructions Diet Discharge Diet: - (Resume previous diet) Activity Discharge Activity: Return to Normal Activity Weight Bearing Status: Full weight bearing Follow Up Care Test Results: Test results from this visit will be discussed in further detail at your follow- up appointment, if applicable. Discharge Plan Admission Admit Date/Time: 02/03/22 21:56 Primary Reason for Your Visit: abdominal pain Attending Provider: Marcellus Ceballos Primary Care Provider: Phu Espinoza Chi Consulting Providers: Jodi Agee ; Megan Gomez Instructions Patient Instructions: ED Abdominal Pain Unkn Cause Fem Additional Instructions / Restrictions: . Discharge Orders/Prescriptions Prescriptions: New ondansetron 4 mg tablet,disintegrating 4 mg PO Q6H PRN (Reason: nausea and vomiting) Qty: 10 0RF Continued paroxetine HCl [Paxil] 30 MG tablet 40 mg PO DAILY Label Comments: anxiety zolpidem [Ambien] 10 MG tablet 5 mg PO QHS Label Comments: sleeping pill albuterol sulfate [Ventolin HFA] 1 INHALER inhaler 1 puff inhalation Q4H PRN PRN (Reason: Shortness Of Breath) Label Comments: breathing metformin [Glucophage XR] 750 MG tablet extended release 24 hr 1,000 mg PO BID Label Comments: blood sugar epinephrine 0.3 MG syringe 0.3 mg IM PRN PRN (Reason: Anaphylaxis) Qty: 2 0RF Label Comments: as directed epinephrine 0.3 MG/0.3 ML auto-injector 0.3 mg IJ X1 PRN (Reason: Anaphylaxis) Qty: 1 0RF atorvastatin 40 mg Tablet 40 mg PO DAILY cetirizine 10 mg Tablet 10 mg PO DAILY lisinopril 40 mg Tablet 40 mg PO DAILY (DME) Dexcom G6 Sensor Device See Rx Instructions .ROUTE .MEDSUPPLY Qty: 3 6RF Rx Instructions: As directed (DME) Dexcom G6 Transmitter Device See Rx Instructions .ROUTE .MEDSUPPLY Qty: 1 3RF Rx Instructions: As directed insulin lispro [Humalog U-100 Insulin] 100 unit/mL solution 100 unit continuous subcutaneous infusion .continuous Qty: 90 3RF Referrals / Follow Up: Phu Espinoza Chi, MD [Primary Care Provider] - In 1 Week Disposition Disposition (needs filled in before D/C Order can be placed): Home, Self Care
--- NOTE | 2022-02-05 15:44 | PCM.DC.SUM ---
Providers Date of Admission: 02/03/22 Date of Discharge: 02/05/22 Primary Care Physician: Dr. Phu Espinoza MD Consultations 02/03/22 23:02 Consult: General Surgery Routine Consulting Provider: Jodi Agee Reason for Consult: SIRS, abdominal pain, unclear etiology EMERGENT Consult: No MD Notified: Yes Date Notified: 02/03/22 Time Notified: 21:58 Method of Notification: ED Physician Initiated Reason For Visit: SIRS, ABDOMINAL PAIN UNCLEAR ETIOLOGY Diagnosis Discharge Diagnosis (1) Abdominal pain, RLQ: Status: Acute Code(s): R10.31 - Right lower quadrant pain (2) Nausea: Status: Acute Code(s): R11.0 - Nausea Plan 1. Right lower quadrant abdominal pain-etiology unclear at this point, patient will continue on IV fluids and IV pain medications as needed, labs will be rechecked tomorrow, general surgery is participating the patient's care #2 febrile illness-etiology unclear at this point, possibly could be viral in nature, again patient's medical condition will be monitored, labs will be repeated tomorrow. Patient's respiratory panel and COVID test were unremarkable. #3 elevated liver enzymes-etiology unclear at this point #4 morbid obesity-complicates care, management, recovery, and prognosis #5 type 2 diabetes-blood sugars will be monitored, patient is on an insulin pump #6 chronic depression-patient will remain on her current medications #7 hypothyroidism-patient will remain on Synthroid Medications at Discharge Home Medications albuterol sulfate 90 mcg/actuation aerosol inhaler (Ventolin HFA) 1 puff inhalation Q4H PRN PRN Shortness Of Breath 12/01/13 epinephrine 0.3 mg/0.3 mL injection, auto-injector 0.3 mg (0.3 mL) IM PRN PRN Anaphylaxis ##2 12/01/13 metformin 750 mg tablet,extended release 24 hr (Glucophage XR) 1,000 mg PO BID 12/01/13 paroxetine HCl 30 mg tablet (Paxil) 40 mg PO DAILY 12/01/13 zolpidem 10 mg tablet (Ambien) 5 mg PO QHS 12/01/13 epinephrine 0.3 mg/0.3 mL injection, auto-injector 0.3 mg (0.3 mL) IJ X1 PRN Anaphylaxis ##1 02/03/19 atorvastatin 40 mg tablet 40 mg PO DAILY 02/03/21 cetirizine 10 mg tablet 10 mg PO DAILY 02/03/21 lisinopril 40 mg tablet 40 mg PO DAILY 02/03/21 blood-glucose sensor (Dexcom G6 Sensor device) #3 ea 07/23/21 blood-glucose transmitter (Dexcom G6 Transmitter device) #1 ea 07/23/21 insulin lispro 100 unit/mL subcutaneous solution (Humalog U-100 Insulin) 100 unit continuous subcutaneous infusion .continuous #90 mL 07/28/21 ondansetron 4 mg disintegrating tablet 4 mg PO Q6H PRN nausea and vomiting #10 tabs 02/03/22 Hospital Course Operations None Procedures None Summary of Care Provided Minutes Spent on Discharge: 31 Hospital Course: 51-year-old white female was seen in the emergency room at [facility] with complaints of mid abdominal discomfort on the left x2 weeks, the day she was seen in the emergency room however, she complained of sudden pain in the right lower abdomen area. Work-up in the emergency room revealed a normal white blood cell count, she had right lower quadrant abdominal pain on examination in the emergency room, urinalysis did not indicate a urinary tract infection. Noncontrasted CT of the abdomen and pelvis showed a normal appendix, patient was given IV morphine and Zofran and she was noted to be febrile. Prior to discharge in the emergency room, patient had episode of emesis and IV fluids were started and IV Zofran was given. General surgery was contacted and reviewed her images and did not see any acute findings, she was admitted to [place] [address], given IV fluids, and seen in consultation by general surgery. She continued to have episodes of elevated temperature but repeat CBC was unremarkable. I talked over her case with general surgery, a CT of the abdomen and pelvis was ordered with oral contrast, this did not show any pathology and it was not felt that the patient had a surgical abdomen. Over the next 24 hours, patient's right lower quadrant pain lessened, she was able to eat a regular diet on 02/05/2022. Patient was seen and examined on 02/05/2022: On examination she appeared in good health and spirits, she does not appear to be in any distress. Patient is morbidly obese. Vital signs as documented. Skin warm and dry and without overt rashes. Neck without JVD, thyroid appears normal, trachea is midline, neck is supple. Lungs clear, normal air movement was noted. Heart exam notable for regular rhythm, normal sounds and absence of murmurs, rubs or gallops. Abdomen unremarkable and without evidence of organomegaly, masses, or abdominal aortic enlargement, bowel sounds are present in all 4 quadrants, no abdominal tenderness was noted. Extremities nonedematous, no cyanosis was noted, no clubbing was noted. Neuro: Cranial nerves II through XII are grossly intact, no focal motor deficits were noted, sensation to light touch and pinprick is intact, motor exam 5/5 throughout. Psych: Patient is alert and oriented x3, she does not appear anxious or depressed, she does not appear agitated. Patient was felt to be stable for discharge home on 02/05/2022, the etiology of her right lower quadrant abdominal pain was unknown as was etiology of her febrile illness. Weight / BMI Weight Weight: 117.7 kg Body Mass Index (BMI) 40.9 ABG / Lab / Microbiology Data Result Diagrams: 02/05/22 06:06 02/05/22 06:06 Laboratory: Laboratory Results - last 24 hr 02/04/22 23:27: POC Glucose 116 H 02/05/22 06:06: WBC 5.0, RBC 3.91 L, Hgb 10.0 L, Hct 32.3 L, MCV 82.6, MCH 25.6 L, MCHC 31.0 L D, RDW Std Deviation 41.7, RDW Coeff of Libby 14.0, Plt Count 190, MPV 10.1, Immature Gran % (Auto) 0.400, Neut % (Auto) 33.8 L, Lymph % (Auto) 47.3 H, [place]cl[place] % (Auto) 13.9 H, Eos % (Auto) 4.4, Baso % (Auto) 0.2, Absolute Neuts (auto) 1.7 L, Absolute Lymphs (auto) 2.34, Nucleated RBC % 0 02/05/22 06:06: Sodium 143, Potassium 3.4 L, Chloride 110 H, Carbon Dioxide 30.0, Anion Gap 3 L, BUN 11, Creatinine 0.89, Estim Creat Clear Calc 72.72, Est GFR (MDRD) Af Amer 86, Est GFR (MDRD) Non-Af 71, BUN/Creatinine Ratio 12.4, Glucose 123 H, Calcium 7.8 L, Total Bilirubin 0.30, Direct Bilirubin 0.15, AST 53 H, ALT 72 H, Alkaline Phosphatase 50, Total Protein 5.9 L, Albumin 2.7 L, Globulin 3.2 02/05/22 06:27: POC Glucose 133 H Microbiology: Microbiology 02/03/22 19:34 Urine, Clean Catch Urine Culture - Final Mixed Gram Positive Organisms 02/04/22 00:11 Mucosa - Nasopharyngeal Respiratory Panel (PCR) - Final 02/03/22 19:14 Nasal Secretion SARS-CoV-2 & FLU Antigen (Rapid) - Final D/C Instructions Discharge Diet: - (Resume previous diet) Weight Bearing Status: Full weight bearing Meaningful Use Info Meaningful Use Diagnoses (Choose all that apply): None applicable Discharge Plan Admission Admit Date/Time: 02/03/22 21:56 Primary Reason for Your Visit: abdominal pain Attending Provider: Marcellus Ceballos Primary Care Provider: Phu Espinoza Chi Consulting Providers: Jodi Agee ; Megan Gomez Instructions Patient Instructions: ED Abdominal Pain Unkn Cause Fem Additional Instructions / Restrictions: . Discharge Orders/Prescriptions Prescriptions: New ondansetron 4 mg tablet,disintegrating 4 mg PO Q6H PRN (Reason: nausea and vomiting) Qty: 10 0RF Continued paroxetine HCl [Paxil] 30 MG tablet 40 mg PO DAILY Label Comments: anxiety zolpidem [Ambien] 10 MG tablet 5 mg PO QHS Label Comments: sleeping pill albuterol sulfate [Ventolin HFA] 1 INHALER inhaler 1 puff inhalation Q4H PRN PRN (Reason: Shortness Of Breath) Label Comments: breathing metformin [Glucophage XR] 750 MG tablet extended release 24 hr 1,000 mg PO BID Label Comments: blood sugar epinephrine 0.3 MG syringe 0.3 mg IM PRN PRN (Reason: Anaphylaxis) Qty: 2 0RF Label Comments: as directed epinephrine 0.3 MG/0.3 ML auto-injector 0.3 mg IJ X1 PRN (Reason: Anaphylaxis) Qty: 1 0RF atorvastatin 40 mg Tablet 40 mg PO DAILY cetirizine 10 mg Tablet 10 mg PO DAILY lisinopril 40 mg Tablet 40 mg PO DAILY (DME) Dexcom G6 Sensor Device See Rx Instructions .ROUTE .MEDSUPPLY Qty: 3 6RF Rx Instructions: As directed (DME) Dexcom G6 Transmitter Device See Rx Instructions .ROUTE .MEDSUPPLY Qty: 1 3RF Rx Instructions: As directed insulin lispro [Humalog U-100 Insulin] 100 unit/mL solution 100 unit continuous subcutaneous infusion .continuous Qty: 90 3RF Referrals / Follow Up: Phu Espinoza Chi, MD [Primary Care Provider] - In 1 Week Disposition Disposition (needs filled in before D/C Order can be placed): Home, Self Care Charges/Coding Visit Charges Inpatient E&M: 23052 Disch Hosp
[2022-02-05 16:25] VITALS: BP 122/70; PULSE 70; RESP 18; TEMP 36.9; O2SAT 97
== END 2022-02-05 16:30 | disposition home or self-care (01) | DRG 392 ==
LOC: ED 21:36 → MS3 02-04 05:21
PROVIDERS: Admitting Provider Family Medicine; Emergency Provider Emergency Medicine; PCP Family Medicine Geriatric Medicine; Visit Provider Internal Medicine
DX: R10.31 Right lower quadrant pain (principal); L40.50 Arthropathic psoriasis, unspecified; I27.20 Pulmonary hypertension, unspecified; E11.22 Type 2 diabetes mellitus with diabetic chronic kidney disease; E11.42 Type 2 diabetes mellitus with diabetic polyneuropathy; Z68.41 Body mass index [BMI] 40.0-44.9, adult; E66.01 Morbid (severe) obesity due to excess calories; E03.9 Hypothyroidism, unspecified; J45.909 Unspecified asthma, uncomplicated; E78.5 Hyperlipidemia, unspecified; R11.0 Nausea; Z79.84 Long term (current) use of oral hypoglycemic drugs; F32.A Depression, unspecified; R50.9 Fever, unspecified; Z96.41 Presence of insulin pump (external) (internal); R74.8 Abnormal levels of other serum enzymes; Z20.822 Contact with and (suspected) exposure to COVID-19; N18.9 Chronic kidney disease, unspecified; F41.9 Anxiety disorder, unspecified; I12.9 Hypertensive chronic kidney disease with stage 1 through stage 4 chronic kidney disease, or unspecified chronic kidney disease; Z79.899 Other long term (current) drug therapy; Z79.890 Hormone replacement therapy
CPT/HCPCS: 36415; 74150; 74176; 74177; 80048; 80053; 80076; 81001; 82728; 82962; 83540; 83550; 83605; 83690; 84145; 84703; 85025; 85610; 85730; 86308; 87040; 87086; 87088; 87428; 87633; 93005; 96361; 96365; 96366; 96372; 96375; 96376; 97802; 99221; 99285; J7030; Q9967; A4216; G0378; J2405; J7799

== ENCOUNTER → 2022-02-08 | Outpatient (CLI) | payer BC, SELFPAY ==
[2022-02-08 16:51] LABS: ALB/GLOB Ratio 0.9 RATIO (0.9-2.4); AST(SGOT) 25 U/L (15-37); Alanine Aminotransfer ALT/SGPT 45 U/L (13-56); Albumin, Serum 3.4 g/dL (3.2-5.0); Alkaline Phosphatase 65 U/L (45-117); Anion Gap 9 (5-15); BUN 12 mg/dL (7-18); BUN/Creat Ratio 13.8 RATIO (10-20); Chloride 107 mmol/L (98-107); Creatinine, Serum 0.87 mg/dL (0.55-1.02); EST Glomerular Filtration Rate 73 mL/min (>60); Est Glom Filt Rate - Afr Amer 88 mL/min (>60); Globulin 3.8 g/dL (2.2-4.2); Glucose 137 mg/dL (74-106); Potassium 3.5 mmol/L (3.5-5.1); Protein, Total 7.2 g/dL (6.4-8.2); Sodium Level 142 mmol/L (136-145)
[2022-02-10 06:08] LABS: HEPATITIS B SURFACE AG Negative (Negative); Hep C Antibodies 0.1 s/co ratio (0.0-0.9); Hepatitis A IgM Antibody Negative (Negative); Hepatitis B Core AB IgM Negative (Negative)
== END | disposition home or self-care (01) ==
LOC: POLAB3 15:38
PROVIDERS: PCP Family Medicine Geriatric Medicine; Visit Provider Family Medicine Geriatric Medicine
DX: R74.8 Abnormal levels of other serum enzymes (principal); R53.83 Other fatigue
CPT/HCPCS: 36415; 80053; 80074

== ENCOUNTER → 2022-03-07 | Outpatient (CLI) | payer BC, SELFPAY ==
--- NOTE | 2022-03-07 08:04 | BI_ITS ---
MAMMOGRAPHY - BILATERAL SCREENING REASON FOR EXAM: Female, 51 years old. Routine annual screening examination. PERTINENT HISTORY: Non-contributory. TECHNIQUE: Digital bilateral breast preston (3D mammographic acquisition) in the CC and MLO projections. 2-D mediolateral oblique (MLO) and craniocaudad (CC) views of both breasts were obtained. CAD: Full Field Digital Mammography with Computer Added Detection was performed. COMPARISON: Comparison is made with prior outside examinations 02/19/2016. FINDINGS: Breast Composition: There are scattered areas of fibroglandular density. There are no dominant masses or suspicious calcifications. No other significant abnormalities are identified. There has been no significant change since the prior study. BI/SCRN MAMM (CAD)W/PRESTON BILAT IMPRESSION: Stable bilateral screening mammogram. Yearly follow-up mammogram recommended. (A) ASSESSMENT CATEGORY: BIRADS Category 1: Negative. A letter regarding these results will be sent to the patient by the facility within 30 days. Approximately 10% of breast cancers are not detected by mammography. A normal mammogram should not delay biopsy of a clinically suspicious abnormality. [id number] Electronically Signed: Michel Alfred MD at 11:12 EST ,
== END | disposition home or self-care (01) ==
LOC: OPBI 08:03
PROVIDERS: PCP Family Medicine Geriatric Medicine; Visit Provider Family Medicine Geriatric Medicine
DX: Z12.31 Encounter for screening mammogram for malignant neoplasm of breast (principal)
CPT/HCPCS: 77063; 77067

== ENCOUNTER → 2022-06-28 | Outpatient (CLI) | payer BC, SELFPAY ==
[2022-06-28 13:15] LABS: Absolute Lymphocyte Count 2.68 X10^3/uL (0.83-4.51); Absolute Neutrophil Count 3.8 X10^3/uL (2.0-7.7); Basophil# 0.05 X10^3/uL; Basophil% 0.7 % (0-1); Eosinophil# 0.18 X10^3/uL; Eosinophils% 2.4 % (0-5); Hematocrit 36.2 % (37-47); Hemoglobin 11.4 g/dL (12.0-15.0); Lymphocyte # 2.68 X10^3/ul (0.83-4.51); Lymphocyte % 36.1 % (19-41); Mean Corp Hgb Conc 31.5 g/dL (32-36); Mean Corpuscular Hgb 26.3 pg (27.0-32.0); Mean Corpuscular Volume 83.6 fL (81-99); Mean Platelet Vol. 10.1 fl (6.2-12.0); Monocyte# 0.73 X10^3/uL; Monocyte% 9.8 % (0-10); NRBC Flagged by Analyzer 0 % (0-5); Neutrophil # 3.75 X10^3/uL (2.7-7.7); Neutrophil % 50.6 % (47-70); Platelet Count 292 K/mm3 (150-450); RBC Distribution Width CV 14.4 % (11.6-14.6); RBC Distribution Width SD 43.9 fl (35.1-43.9); Red Blood Count 4.33 M/mm3 (4.2-5.4); White Blood Count 7.4 K/mm3 (4.4-11.0)
[2022-06-28 13:39] LABS: ALB/GLOB Ratio 0.9 RATIO (0.9-2.4); AST(SGOT) 20 U/L (15-37); Alanine Aminotransfer ALT/SGPT 29 U/L (13-56); Albumin, Serum 3.8 g/dL (3.2-5.0); Alkaline Phosphatase 52 U/L (45-117); Anion Gap 4 (5-15); BUN 28 mg/dL (7-18); BUN/Creat Ratio 21.7 RATIO (10-20); Calcium,Total 9.2 mg/dL (8.5-10.1); Chloride 107 mmol/L (98-107); Creatinine, Serum 1.29 mg/dL (0.55-1.02); EST Glomerular Filtration Rate 46 mL/min (>60); Est Glom Filt Rate - Afr Amer 56 mL/min (>60); Globulin 4.2 g/dL (2.2-4.2); Glucose 138 mg/dL (74-106); Potassium 4.1 mmol/L (3.5-5.1); Sodium Level 139 mmol/L (136-145); Thyroid Stim Hormone (TSH) 4.74 uIU/mL (0.358-3.74)
== END | disposition home or self-care (01) ==
LOC: POLAB3 10:04
PROVIDERS: PCP Family Medicine Geriatric Medicine; Visit Provider Family Medicine Geriatric Medicine
DX: E83.51 Hypocalcemia (principal); E11.65 Type 2 diabetes mellitus with hyperglycemia; I10 Essential (primary) hypertension
CPT/HCPCS: 36415; 80053; 84443; 85025

== ENCOUNTER → 2022-08-17 | Outpatient (CLI) | payer BC, SELFPAY ==
[2022-08-17 12:34] LABS: ALB/GLOB Ratio 0.9 RATIO (0.9-2.4); AST(SGOT) 28 U/L (15-37); Alanine Aminotransfer ALT/SGPT 31 U/L (13-56); Albumin, Serum 3.9 g/dL (3.2-5.0); Alkaline Phosphatase 54 U/L (45-117); Anion Gap 7 (5-15); BUN 26 mg/dL (7-18); BUN/Creat Ratio 25.2 RATIO (10-20); Chloride 105 mmol/L (98-107); Creatinine, Serum 1.03 mg/dL (0.55-1.02); EST Glomerular Filtration Rate 60 mL/min (>60); Est Glom Filt Rate - Afr Amer 72 mL/min (>60); Globulin 4.2 g/dL (2.2-4.2); Glucose 167 mg/dL (74-106); Potassium 4.3 mmol/L (3.5-5.1); Protein, Total 8.1 g/dL (6.4-8.2); Sodium Level 138 mmol/L (136-145)
== END | disposition home or self-care (01) ==
LOC: LAB 10:24
PROVIDERS: Nurse Practitioner Family; PCP Family Medicine Geriatric Medicine; Visit Provider Family Medicine Geriatric Medicine
DX: E03.9 Hypothyroidism, unspecified (principal)
CPT/HCPCS: 36415; 80053; 84443

== ENCOUNTER → 2023-01-03 | Outpatient (CLI) | payer BC, SELFPAY ==
[2023-01-03 15:35] LABS: Absolute Lymphocyte Count 2.77 X10^3/uL (0.83-4.51); Absolute Neutrophil Count 4.1 X10^3/uL (2.0-7.7); Basophil# 0.04 X10^3/uL; Basophil% 0.5 % (0-1); Eosinophil# 0.11 X10^3/uL; Eosinophils% 1.4 % (0-5); Hematocrit 34.6 % (37-47); Hemoglobin 10.8 g/dL (12.0-15.0); Lymphocyte # 2.77 X10^3/ul (0.83-4.51); Mean Corp Hgb Conc 31.2 g/dL (32-36); Mean Corpuscular Hgb 26.1 pg (27.0-32.0); Mean Corpuscular Volume 83.6 fL (81-99); Mean Platelet Vol. 10.2 fl (6.2-12.0); Monocyte# 0.64 X10^3/uL; Monocyte% 8.3 % (0-10); NRBC Flagged by Analyzer 0 % (0-5); Neutrophil # 4.11 X10^3/uL (2.7-7.7); Neutrophil % 53.4 % (47-70); Platelet Count 261 K/mm3 (150-450); RBC Distribution Width CV 13.4 % (11.6-14.6); RBC Distribution Width SD 40.8 fl (35.1-43.9); Red Blood Count 4.14 M/mm3 (4.2-5.4); White Blood Count 7.7 K/mm3 (4.4-11.0)
[2023-01-03 16:02] LABS: AST(SGOT) 30 U/L (15-37); Alanine Aminotransfer ALT/SGPT 31 U/L (13-56); Albumin, Serum 3.7 g/dL (3.2-5.0); Alkaline Phosphatase 50 U/L (45-117); Anion Gap 9 (5-15); BUN 21 mg/dL (7-18); BUN/Creat Ratio 17.8 RATIO (10-20); Chloride 105 mmol/L (98-107); Creatinine, Serum 1.18 mg/dL (0.55-1.02); EST Glomerular Filtration Rate 51 mL/min (>60); Est Glom Filt Rate - Afr Amer 62 mL/min (>60); Globulin 3.8 g/dL (2.2-4.2); Glucose 137 mg/dL (74-106); Potassium 4.3 mmol/L (3.5-5.1); Protein, Total 7.5 g/dL (6.4-8.2); Sodium Level 140 mmol/L (136-145); Thyroid Stim Hormone (TSH) 6.16 uIU/mL (0.358-3.74)
== END | disposition home or self-care (01) ==
PROVIDERS: PCP Family Medicine Geriatric Medicine; Visit Provider Family Medicine Geriatric Medicine
DX: E11.65 Type 2 diabetes mellitus with hyperglycemia (principal); I10 Essential (primary) hypertension
CPT/HCPCS: 36415; 80053; 84443; 85025

== ENCOUNTER → 2023-01-09 | Outpatient (CLI) | payer BC, SELFPAY ==
[2023-01-09 12:27] LABS: Absolute Lymphocyte Count 2.49 X10^3/uL (0.83-4.51); Absolute Neutrophil Count 4.3 X10^3/uL (2.0-7.7); Basophil# 0.04 X10^3/uL; Basophil% 0.5 % (0-1); Eosinophil# 0.17 X10^3/uL; Eosinophils% 2.2 % (0-5); Hematocrit 37.2 % (37-47); Hemoglobin 11.4 g/dL (12.0-15.0); Lymphocyte # 2.49 X10^3/ul (0.83-4.51); Lymphocyte % 32.5 % (19-41); Mean Corp Hgb Conc 30.6 g/dL (32-36); Mean Corpuscular Hgb 26.2 pg (27.0-32.0); Mean Corpuscular Volume 85.5 fL (81-99); Mean Platelet Vol. 10.3 fl (6.2-12.0); Monocyte# 0.68 X10^3/uL; Monocyte% 8.9 % (0-10); NRBC Flagged by Analyzer 0 % (0-5); Neutrophil # 4.25 X10^3/uL (2.7-7.7); Neutrophil % 55.4 % (47-70); Platelet Count 271 K/mm3 (150-450); RBC Distribution Width CV 13.3 % (11.6-14.6); RBC Distribution Width SD 41.7 fl (35.1-43.9); RET-HE 29.3 pg (30-35); Red Blood Count 4.35 M/mm3 (4.2-5.4); Reticulocyte Count 2.36 % (0.5-1.5); White Blood Count 7.7 K/mm3 (4.4-11.0)
[2023-01-09 12:42] LABS: Vitamin B12 293 pg/mL (211-911)
[2023-01-09 13:15] LABS: Ferritin 18 ng/mL (8-252); Iron 44 ug/dL (50-170); Iron Binding Capacity,Total 482 ug/dL (250-450); PERCENT IRON SATURATION 9.1 % (15.0-55.0)
== END | disposition home or self-care (01) ==
LOC: POLAB3 10:35
PROVIDERS: PCP Family Medicine Geriatric Medicine; Visit Provider Family Medicine Geriatric Medicine
DX: D50.9 Iron deficiency anemia, unspecified (principal)
CPT/HCPCS: 36415; 82607; 82728; 82746; 83540; 83550; 85025; 85045

== ENCOUNTER → 2023-01-11 | Outpatient (CLI) | payer BC, SELFPAY | END | disposition home or self-care (01) | LOC: LABSPEC 10:34 | PROVIDERS: PCP Family Medicine Geriatric Medicine; Referring Provider Family Medicine Geriatric Medicine; Visit Provider Family Medicine Geriatric Medicine | DX: D50.9 Iron deficiency anemia, unspecified (principal) | CPT/HCPCS: 82274 ==

== ENCOUNTER → 2023-02-08 | Outpatient (CLI) | payer BC, SELFPAY ==
[2023-02-08 12:23] LABS: Hematocrit 33.9 % (37-47); Hemoglobin 10.8 g/dL (12.0-15.0)
== END | disposition home or self-care (01) ==
LOC: POLAB3 11:05
PROVIDERS: PCP Family Medicine Geriatric Medicine; Visit Provider Family Medicine Geriatric Medicine
DX: D50.9 Iron deficiency anemia, unspecified (principal); D64.9 Anemia, unspecified
CPT/HCPCS: 36415; 85014; 85018

== ENCOUNTER → 2023-03-02 | Outpatient (CLI) | payer BC, SELFPAY ==
[2023-03-02 13:22] LABS: Absolute Lymphocyte Count 2.72 X10^3/uL (0.83-4.51); Absolute Neutrophil Count 3.6 X10^3/uL (2.0-7.7); Basophil# 0.03 X10^3/uL; Basophil% 0.4 % (0-1); Eosinophil# 0.12 X10^3/uL; Eosinophils% 1.7 % (0-5); Hematocrit 35.1 % (37-47); Lymphocyte # 2.72 X10^3/ul (0.83-4.51); Lymphocyte % 38.5 % (19-41); Mean Corp Hgb Conc 31.3 g/dL (32-36); Mean Corpuscular Hgb 26.1 pg (27.0-32.0); Mean Corpuscular Volume 83.2 fL (81-99); Mean Platelet Vol. 9.8 fl (6.2-12.0); Monocyte# 0.61 X10^3/uL; Monocyte% 8.6 % (0-10); NRBC Flagged by Analyzer 0 % (0-5); Neutrophil # 3.56 X10^3/uL (2.7-7.7); Neutrophil % 50.4 % (47-70); Platelet Count 284 K/mm3 (150-450); RBC Distribution Width CV 13.7 % (11.6-14.6); RBC Distribution Width SD 41.3 fl (35.1-43.9); Red Blood Count 4.22 M/mm3 (4.2-5.4); White Blood Count 7.1 K/mm3 (4.4-11.0)
[2023-03-02 13:50] LABS: Cholesterol 148 mg/dL (200); Ferritin 23 ng/mL (8-252); High Density Lipoprotein 46 mg/dL; T4 Free Direct 0.83 ng/dL (0.76-1.46); Thyroid Stim Hormone (TSH) 2.85 uIU/mL (0.358-3.74); Triglycerides 136 mg/dL; Very Low Density Lipoprotein 27 mg/dL (5-40)
== END | disposition home or self-care (01) ==
LOC: LAB 12:21
PROVIDERS: PCP Family Medicine Geriatric Medicine; Referring Provider Nurse Practitioner Family; Visit Provider Nurse Practitioner Family
DX: E11.9 Type 2 diabetes mellitus without complications (principal)
CPT/HCPCS: 36415; 80061; 82728; 84439; 84443; 85025

== ENCOUNTER 2023-03-13 06:48 | Day surgery (SDC) | payer BC, SELFPAY ==
[2023-03-13 07:08] VITALS: BP 114/63; PULSE 71; RESP 20; TEMP 36.1; O2SAT 99; BMI 43.4
--- NOTE | 2023-03-13 07:10 | PCM.HP.BLA ---
History and Physical Date of Admission: 03/13/23 Date of Service: 02/15/23 MR#: [id number] Acct: [id number] Name: ARLEN NGUYEN Rep #: [id number] : 1970 Provider: Dr. 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 Is patient in pain?: No Allergies nut - unspecified Allergy (Verified 02/15/23 14:18) Anaphylaxispeanut Allergy (Verified 02/15/23 14:18) Anaphylaxisshellfish derived Allergy (Verified 02/15/23 14:18) Anaphylaxiscodeine Adverse Reaction (Verified 02/15/23 14:18) Rashprednisone Adverse Reaction (Verified 02/15/23 14:18) Othersertraline HCl [From Zoloft] Adverse Reaction (Verified 02/15/23 14:18) Other Medications albuterol sulfate 90 mcg/actuation aerosol inhaler (Ventolin HFA) 1 puff inhalation Q4H PRN PRN Shortness Of Breath 12/01/13 [History Confirmed 02/15/23] epinephrine 0.3 mg/0.3 mL injection, auto-injector 0.3 mg (0.3 mL) IM PRN PRN Anaphylaxis #2 syringes 12/01/13 [Rx Confirmed 02/15/23] metformin 750 mg tablet,extended release 24 hr (Glucophage XR) 1,000 mg PO BID 12/01/13 [History Confirmed 02/15/23] paroxetine HCl 30 mg tablet (Paxil) 40 mg PO DAILY 12/01/13 [History Confirmed 02/15/23] zolpidem 10 mg tablet (Ambien) 5 mg PO QHS 12/01/13 [History Confirmed 02/15/23] epinephrine 0.3 mg/0.3 mL injection, auto-injector 0.3 mg (0.3 mL) IJ X1 PRN Anaphylaxis ##1 02/03/19 [Rx Confirmed 02/15/23] atorvastatin 40 mg tablet 40 mg PO DAILY 02/03/21 [History Confirmed 02/15/23] cetirizine 10 mg tablet 10 mg PO DAILY 02/03/21 [History Confirmed 02/15/23] lisinopril 40 mg tablet 40 mg PO DAILY 02/03/21 [History Confirmed 02/15/23] insulin lispro 100 unit/mL subcutaneous solution (Humalog U-100 Insulin) 100 unit continuous subcutaneous infusion .continuous #90 mL 08/08/22 [Rx Confirmed 02/15/23] blood-glucose sensor (Dexcom G6 Sensor device) #3 ea 10/05/22 [Rx Confirmed 02/15/23] blood-glucose transmitter (Dexcom G6 Transmitter device) #1 ea 01/12/23 [Rx Confirmed 02/15/23] levothyroxine 25 mcg tablet 25 mcg PO 02/15/23 [History Confirmed 02/15/23] pantoprazole 40 mg tablet,delayed release 40 mg PO DAILY #30 tabs 02/15/23 [Rx Confirmed 02/15/23] PFSH Medical History Acute pharyngitis, unspecified Allergies Arthritis Carpal tunnel syndrome delivery delivered Depression Gall stones Hearing problem Hepatitis A High blood triglycerides High cholesterol Hives Hypertension Hypothyroidism Insulin pump in place Kidney disease Migraines Morbid obesity with BMI of 45.0-49.9, adult MRSA (methicillin resistant Staphylococcus aureus) Neuropathy Psoriatic arthritis SIRS (systemic inflammatory response syndrome) Tonsillectomy planned Surgical History History of cholecystectomy History of removal of ovarian cyst Family History Other Alcohol abuse Anxiety Arthritis Asthma Bleeding disorder Bowel disease Depression Diabetes Hypertension Severe allergy Social History household members: none Smoking Status: Never smoker alcohol intake: current alcohol intake frequency: 0-2 drinks per day substance use type: does not use what type of physical activity do you participate in: walking HPI HPI HPI: 52-year-old female presents for anemia and epigastric pain. Patient's last hemoglobin was 10.8 previously has been running between and mid . Patient states she did have EGD a long time ago never had a colonoscopy. Patient had a Cologuard 1 to 2 years ago that was negative also fecal occult that was negative 01/11/23. Patient states she had this epigastric pain for about a month states it seems to be worse later in the day rates it at 3/10 patient does occasionally take Tums. Patient does not take any other PPI or other yivv-ema-eqejadp medications. Patient is adopted does not know her family history. Patient has bowel movements daily denies any blood. Patient's son does have Crohn's disease. ROS General General: Yes fatigue; No weight change, appetite, colon cancer or breast cancer HEENT HEENT: No difficulty swallowing, eye injury, eye surgery, swollen glands or hoarseness Endo Endocrine: Yes diabetes mellitus; No thyroid disease, thyroid cancer, Hair loss, heat intolerance or cold intolerance Skin Skin: No rash or changing moles Musc Musculoskeletal: Yes arthritis; No back problems, rheumatoid arthritis, gout or joint pain Cardio Cardiovascular: Yes high blood pressure; No murmur, pacemaker, heart disease, atrial fibrillation, heart attack, heart stent, palpitations, shortness of breath with exertion or chest pain Psych Psychiatric: Yes depression and anxiety; No hearing voices Resp Respiratory: No shortness of breath, No sleep apnea, No cough, No COPD, Yes asthma, No emphysema and No wheezing Gastro Gastrointestinal: Yes abdominal pain, Yes nausea or vomiting, No diarrhea, No constipation, No blood in stool, Yes acid reflux, No hemorrhoids, No ulcers, No gallbladder problem and No black,tarry stools Jr Hematologic: No blood thinners, No blood disorders, Yes bleeding, Yes anemia and No blood clots Neuro Neurologic: No numbness and No tingling Exam Const General: cooperative, healthy appearing, comfortable and no acute distress [facility] Head: normocephalic and atraumatic Neck Neck: supple Resp Effort & Inspection: normal respiratory effort Cardio Rate: regular rate GI Inspection: non-distended Palpation: soft and tender in the epigastrum Skin General: no rashes or lesions noted Neuro General: CN's II-XI intact bilaterally Extrem General: normal to inspection Psych Mental Status: mental status grossly normal Attitude: cooperative Assessment and Plan Assessment and Plan (1) Anemia: (2) Epigastric pain: Status: Acute Orders: Orders Colonoscopy Today EGD Today Medications: New pantoprazole Take at night as you take the levothyroxine in the morning 40 mg PO DAILY 30 tabs 4RF Plan Will give patient some Protonix for her epigastric pain as it sounds like GERD/gastritis. I have discussed the above with the patient. I have offered the patient esophagogastroduodenoscopy and colonoscopy for evaluation. I have explained the risks/benefits of the procedure and described the procedure. I have discussed the risks with the patient, including but not limited to: infection, bleeding, perforation of the GI tract requiring emergency surgery, inability to complete the procedure, injury to any internal organs, complications of anesthesia, etc. - the patient understands and agrees to proceed. I have answered all the patient's questions to the patient's satisfaction and the patient has no further questions. The patient has been given instructions for the colon cleansing preparation. 1 day of clears, MiraLAX Dulcolax split prep. Jodi Agee M.D. Pager: [phone] [facility] [address] [place] [address], [facility], [address] [place] [address] Office: [phone] Coding Level of Care Code Off vis,new,level 3 Diagnoses Anemia D64.9 Epigastric pain R10.13 02/15/23 3147 <Electronically signed by Jodi Agee MD> Date Jodi Agee MD
[2023-03-13] MEDS: Lactated Ringers 1,000 ML 15 ML IV (07:19)
--- NOTE | 2023-03-13 08:15 | COLBX_PTH ---
PATIENT: ARLEN NGUYEN LOC: EN U#:[id number] AGE/SX: 52/F ROOM: RE03/13/[address]: Dr. Jodi Agee MD : 1970 BED: DIS: 03/13/2023 SPEC #: [id number] RECD: 03/13/23 11:56 STATUS: DARISUZ CASSIE #: [id number] SKINNY: 03/13/23 08:[address]: Jodi Agee DEPT: SURGICAL PATHOLOGY RECD BY: Tanisha Heck ENTERED: 03/13/23 11:57 SP TYPE: COLON BX OTHR DR: Dr. Phu Espinoza MD Tissues: A - Gastric mucous membrane B - Esophageal mucous membrane C - COLON BIOPSY Procedures: Special Stain Group II Surgery Specimen Level IV Alcian Blue/PAS (control) HEADER OPERATION: Colonoscopy with polyp biopsy, EGD with biopsy PRE-OP DIAGNOSIS: Anemia, Epigastric pain TISSUE SUBMITTED: A - Antrum for H. pylori and histology, B - Gastroesophageal junction biopsy, C - Ascending colon polyp MICROSCOPIC DIAGNOSIS A. Antrum, biopsy: Mild gastritis. See microscopic description and comment. B. Gastroesophageal junction, biopsy: Fragments of gastroesophageal mucosa, no pathologic diagnosis. Intestinal metaplasia (goblet cell metaplasia) not identified. See comment. C. Ascending colon polyp, biopsy: A fragment of colonic mucosa, no pathologic diagnosis. SJ:kirstie 03/15/2023 COMMENT A. The results of immunohistochemistry for Helicobacter pylori will be reported separately ([id number]). B. Alcian blue/PAS stain with matched control is used in the evaluation of the specimen. MICROSCOPIC DESCRIPTION Slides are reviewed. A. The specimen shows fragments of gastric mucosa with chronic inflammatory cell infiltrates in the lamina propria consisting of lymphocytes and plasma cells, consistent with mild chronic gastritis. GROSS DESCRIPTION A - Received in fixative is one container labeled with the patient's name and designated antrum biopsy. The specimen consists of one irregular fragment of light aiken soft tissue that measures 0.5 x 0.3 x 0.1 cm. The specimen is totally submitted in one cassette. B - Received in fixative is one container labeled with the patient's name and designated GE junction biopsy. The specimen consists of two irregular fragments of light aiken soft tissue that in aggregate measure 0.3 x 0.2 x 0.1 cm. The specimen is totally submitted in one cassette. C - Received in fixative is one container labeled with the patient's name and designated ascending colon polyp. The specimen consists of one irregular fragment of light aiken soft tissue that measures 0.3 x 0.3 x 0.1 cm. The specimen is totally submitted in one cassette. / SJ:rg 03/13/2023 TC:3 CPT: 31322 x3, 82174
--- NOTE | 2023-03-13 08:15 | IMM_PTH ---
PATIENT: ARLEN NGUYEN LOC: EN U#:[id number] AGE/SX: 52/F ROOM: RE03/13/[address]: Dr. Jodi Agee MD : 1970 BED: DIS: 03/13/2023 SPEC #: [id number] RECD: 03/14/23 13:57 STATUS: DARIUSZ REDelta #: [id number] SKINNY: 03/13/23 08:[address]: Jodi Agee DEPT: IMMUNOHISTOCHEMISTRY RECD BY: Tanisha Heck ENTERED: 03/14/23 13:57 SP TYPE: IMMUNO OTHR DR: Dr. Phu Espinoza MD Tissues: Gastric mucous membrane Procedures: H Pylori (initial) PHYSICIAN & INSTITUTION [place] [address] SPECIMEN INFORMATION: Tissue Source: A - Gastric antrum Clinical Info: Anemia, Epigastric pain Specimen Number: [id number] CPT code: 53930 METHODOLOGY: Deparaffinized sections of prefer/formalin-fixed tissue or PAP/DQ stained slides are incubated with monoclonal/polyclonal antibodies/oligonucleotide probes. Localization is made via biotin free immunoperoxidase method. Appropriate controls are performed and reacted as expected. Results on target cell population are indicated in the following table: RESULTS: ANTIBODY / CLONE RESULT Block A H Pylori (polyclonal) negative These tests were developed and their performance characteristics determined by [facility]. They may not have been cleared or approved by the U.S. Food and Drug Administration. The FDA has determined that such clearance or approval is not necessary. The above immunohistochemical/dualISH markers are ordered and reviewed by the Pathologist. INTERPRETATION: A. Gastric antrum, biopsy: Negative for Helicobacter pylori organisms. SJ:kirstie 03/15/2023
[2023-03-13 08:40] VITALS: BP 114/63; BP 92/60; PULSE 76; RESP 16; TEMP 36.2; O2SAT 95
--- NOTE | 2023-03-13 08:41 | OP.EGD_ITS ---
Patient Name: Mary Ricks Procedure Date: 03/13/2023 8:03 AM Date of : 1970 Age: 52 Procedure: Upper GI endoscopy Indications: Epigastric abdominal pain, Heartburn Providers: Jodi Agee MD Referring MD: Jodi Agee MD Medicines: Monitored Anesthesia Care Patient Profile: This is a 52 year old female. Complications: No immediate complications. Procedure: Pre-Anesthesia Assessment: - Prior to the procedure, a History and Physical was performed, and patient medications and allergies were reviewed. The patient's tolerance of previous anesthesia was also reviewed. The risks and benefits of the procedure and the sedation options and risks were discussed with the patient. All questions were answered, and informed consent was obtained. Prior Anticoagulants: The patient has taken no anticoagulant or antiplatelet agents. After reviewing the risks and benefits, the patient was deemed in satisfactory condition to undergo the procedure. After obtaining informed consent, the endoscope was passed under direct vision. Throughout the procedure, the patient's blood pressure, pulse, and oxygen saturations were monitored continuously. The colonoscope was introduced through the mouth, and advanced to the second part of duodenum. The upper GI endoscopy was accomplished without difficulty. The patient tolerated the procedure well. Scope In: 8:14:30 AM Scope Out: 8:18:51 AM Total Procedure Duration Time 0 hours 4 minutes 21 seconds Findings: The Z-line was variable. Biopsies were taken with a cold forceps for histology. Bilious fluid was found in the gastric antrum. Striped moderately erythematous mucosa without bleeding was found in the gastric body and in the gastric antrum. Biopsies were taken with a cold forceps for histology. Biopsies were taken with a cold forceps for Helicobacter pylori cultures. The examined duodenum was normal. The cardia and gastric fundus were normal on retroflexion. Impression: - Z-line variable. Biopsied. - Bilious gastric fluid. - Erythematous mucosa in the gastric body and antrum. Biopsied. - Normal examined duodenum. Recommendation: - Await pathology results. - Discharge patient to home. - Resume previous diet. - Continue present medications. Procedure Code(s): --- Professional --- 03675, Esophagogastroduodenoscopy, flexible, transoral; with biopsy, single or multiple Diagnosis Code(s): --- Professional --- K22.89, Other specified disease of esophagus K31.89, Other diseases of stomach and duodenum R10.13, Epigastric pain R12, Heartburn CPT copyright 2021 [employer]. All rights reserved. The codes documented in this report are preliminary and upon adding machine servicer review may be revised to meet current compliance requirements. MD Jodi Matute MD 03/13/2023 8:41:29 AM This report has been signed electronically. Number of Addenda: 0 Note Initiated On: 03/13/2023 8:03 AM
--- NOTE | 2023-03-13 08:41 | OP.CCLET_ITS ---
03/13/2023 Phu Espinoza MD [address] [place] [address] Re : Upper GI endoscopy procedure for Mary Ricks Dear Dr. Espinoza This procedure was performed on Monday, March 13, 2023. My impressions and recommendations are as follows: Impressions : - Z-line variable. Biopsied. - Bilious gastric fluid. - Erythematous mucosa in the gastric body and antrum. Biopsied. - Normal examined duodenum. Recommendations : - Await pathology results. - Discharge patient to home. - Resume previous diet. - Continue present medications. My findings are described in the full procedure note, which is enclosed. If I can be of further assistance, please feel free to contact me at Doctor phone number(s): , Work: . Sincerely, MD Jodi Matute MD 03/13/2023 8:41:29 AM This report has been signed electronically.
[2023-03-13 08:45] VITALS: BP 114/63; BP 85/48; PULSE 73; RESP 16; O2SAT 94
--- NOTE | 2023-03-13 08:45 | OP.COLON_ITS ---
Patient Name: Mary Ricks Procedure Date: 03/13/2023 8:19 AM Date of : 1970 Age: 52 Procedure: Colonoscopy Indications: Iron deficiency anemia Providers: Jodi Agee MD Referring MD: Jodi Agee MD Medicines: Monitored Anesthesia Care Patient Profile: This is a 52 year old female. Last Colonoscopy: none. The patient's first colonoscopy is today. Last Colonoscopy: none. The patient's first colonoscopy is today. Complications: No immediate complications. Procedure: Pre-Anesthesia Assessment: - Prior to the procedure, a History and Physical was performed, and patient medications and allergies were reviewed. The patient's tolerance of previous anesthesia was also reviewed. The risks and benefits of the procedure and the sedation options and risks were discussed with the patient. All questions were answered, and informed consent was obtained. Prior Anticoagulants: The patient has taken no anticoagulant or antiplatelet agents. After reviewing the risks and benefits, the patient was deemed in satisfactory condition to undergo the procedure. After I obtained informed consent, the scope was passed under direct vision. Throughout the procedure, the patient's blood pressure, pulse, and oxygen saturations were monitored continuously. The colonoscope was introduced through the anus and advanced to the cecum, identified by appendiceal orifice and ileocecal valve. The colonoscopy was performed without difficulty. The patient tolerated the procedure well. The quality of the bowel preparation was good. Scope In: 8:20:22 AM Scope Withdrawal Time 0 hours 7 minutes 40 seconds Scope Out: 8:35:13 AM Total Procedure Duration Time 0 hours 14 minutes 51 seconds Findings: Hemorrhoids were found on perianal exam. Non-bleeding internal hemorrhoids were found. The hemorrhoids were Grade I (internal hemorrhoids that do not prolapse). A less than 5 mm polyp was found in the ascending colon. The polyp was sessile. The polyp was removed with a cold biopsy forceps. Resection and retrieval were complete. The exam was otherwise without abnormality. Impression: - Hemorrhoids found on perianal exam. - Non-bleeding internal hemorrhoids. - One less than 5 mm polyp in the ascending colon, removed with a cold biopsy forceps. Resected and retrieved. - The examination was otherwise normal. Recommendation: - Discharge patient to home. - Resume previous diet. - Continue present medications. - Await pathology results. - Repeat colonoscopy in 5 years for surveillance based on pathology results. Procedure Code(s): --- Professional --- 46828, Colonoscopy, flexible; with biopsy, single or multiple Diagnosis Code(s): --- Professional --- K64.0, First degree hemorrhoids D12.2, Benign neoplasm of ascending colon D50.9, Iron deficiency anemia, unspecified CPT copyright 2021 [employer]. All rights reserved. The codes documented in this report are preliminary and upon deputy coroner review may be revised to meet current compliance requirements. MD Jodi Matute MD 03/13/2023 8:44:49 AM This report has been signed electronically. Number of Addenda: 0 Note Initiated On: 03/13/2023 8:19 AM
--- NOTE | 2023-03-13 08:45 | OP.CCLET_ITS ---
03/13/2023 Phu Espinoza MD [address] [place] [address] Re : Colonoscopy procedure for Mary Ricks Dear Dr. Espinoza This procedure was performed on Monday, March 13, 2023. My impressions and recommendations are as follows: Impressions : - Hemorrhoids found on perianal exam. - Non-bleeding internal hemorrhoids. - One less than 5 mm polyp in the ascending colon, removed with a cold biopsy forceps. Resected and retrieved. - The examination was otherwise normal. Recommendations : - Discharge patient to home. - Resume previous diet. - Continue present medications. - Await pathology results. - Repeat colonoscopy in 5 years for surveillance based on pathology results. My findings are described in the full procedure note, which is enclosed. If I can be of further assistance, please feel free to contact me at Doctor phone number(s): , Work: . Sincerely, MD Jodi Matute MD 03/13/2023 8:44:49 AM This report has been signed electronically.
[2023-03-13 08:50] VITALS: BP 114/63; BP 97/75; PULSE 66; RESP 16; O2SAT 99
[2023-03-13 08:52] LABS: Bedside Glucose 186 mg/dL (74-106)
[2023-03-13 08:55] VITALS: BP 110/76; BP 114/63; PULSE 74; RESP 16; TEMP 36.6; O2SAT 97
[2023-03-13 09:11] VITALS: BP 114/63
== END 2023-03-13 09:35 | disposition home or self-care (01) ==
LOC: EN 06:48 → AC 06:50
PROVIDERS: PCP Family Medicine Geriatric Medicine; Referring Provider Family Medicine Geriatric Medicine; Visit Provider Surgery
PROC: 0DJD8ZZ Inspection of Lower Intestinal Tract, Via Natural or Artificial Opening Endoscopic (ICD-10-PCS; CPT 45378; principal; 2023-03-13 08:10)
DX: D64.9 Anemia, unspecified (principal); R10.13 Epigastric pain; K64.0 First degree hemorrhoids; K63.5 Polyp of colon; I10 Essential (primary) hypertension; E78.00 Pure hypercholesterolemia, unspecified; F32.A Depression, unspecified; Z90.49 Acquired absence of other specified parts of digestive tract; Z83.79 Family history of other diseases of the digestive system; K22.89 Other specified disease of esophagus; K31.89 Other diseases of stomach and duodenum; K29.70 Gastritis, unspecified, without bleeding
CPT/HCPCS: 45380; 43239; 82962; 88305; 88313; 88342; J7120; J2405

== ENCOUNTER → 2023-04-03 | Outpatient (CLI) | payer BC, SELFPAY | END | disposition home or self-care (01) | LOC: POLAB3 15:16 | PROVIDERS: PCP Family Medicine Geriatric Medicine; Visit Provider Family Medicine Geriatric Medicine | DX: N39.0 Urinary tract infection, site not specified (principal) | CPT/HCPCS: 87086; 87088 ==

== ENCOUNTER → 2023-06-22 | Outpatient (CLI) | payer BC, SELFPAY ==
--- NOTE | 2023-06-22 16:10 | RAD_ITS ---
INDICATION: R HIP PAIN EXAMINATION/TECHNIQUE: X-RAY - hip pain following a recent fall. COMPARISON: FINDINGS: PELVIC BONES: No displaced fracture, destructive or sclerotic lesions. Note that overlapping bowel shadows may however obscure fine detail. Sacroiliac joints are unremarkable. No widening of the pubic symphysis. HIPS: The articular structures are unremarkable. No displaced fracture seen in this frontal view. SOFT TISSUES: Calcified phleboliths. RAD/Hips B/L min 2 views w/ Pelvis IMPRESSION: No acute abnormality is seen. Electronically Signed: Michel Alfred MD at 11:44 EDT ,
== END | disposition home or self-care (01) ==
LOC: RAD 16:05
PROVIDERS: PCP Family Medicine Geriatric Medicine; Referring Provider Family Medicine Geriatric Medicine; Visit Provider Family Medicine Geriatric Medicine
DX: M25.551 Pain in right hip (principal)
CPT/HCPCS: 73521

== ENCOUNTER → 2024-01-10 | Outpatient (CLI) | payer BC, SELFPAY ==
[2024-01-10 12:22] LABS: Absolute Lymphocyte Count 2.48 X10^3/uL (0.83-4.51); Absolute Neutrophil Count 4.4 X10^3/uL (2.0-7.7); Basophil# 0.05 X10^3/uL; Basophil% 0.6 % (0-1); Eosinophil# 0.19 X10^3/uL; Eosinophils% 2.4 % (0-5); Hematocrit 35.6 % (37-47); Lymphocyte # 2.48 X10^3/ul (0.83-4.51); Lymphocyte % 31.8 % (19-41); Mean Corp Hgb Conc 30.9 g/dL (32-36); Mean Corpuscular Hgb 25.3 pg (27.0-32.0); Mean Platelet Vol. 9.9 fl (6.2-12.0); Monocyte# 0.69 X10^3/uL; Monocyte% 8.8 % (0-10); NRBC Flagged by Analyzer 0 % (0-5); Neutrophil # 4.37 X10^3/uL (2.7-7.7); Platelet Count 256 K/mm3 (150-450); RBC Distribution Width SD 41.4 fl (35.1-43.9); Red Blood Count 4.34 M/mm3 (4.2-5.4); White Blood Count 7.8 K/mm3 (4.4-11.0)
[2024-01-10 13:05] LABS: ALB/GLOB Ratio 0.9 RATIO (0.9-2.4); AST(SGOT) 53 U/L (15-37); Alanine Aminotransfer ALT/SGPT 81 U/L (13-56); Albumin, Serum 3.6 g/dL (3.2-5.0); Alkaline Phosphatase 66 U/L (45-117); Anion Gap 7 (5-15); BUN 21 mg/dL (7-18); BUN/Creat Ratio 21.7 RATIO (10-20); Calcium,Total 9.2 mg/dL (8.5-10.1); Chloride 106 mmol/L (98-107); Creatinine, Serum 0.97 mg/dL (0.55-1.02); EST Glomerular Filtration Rate 64 mL/min (>60); Est Glom Filt Rate - Afr Amer 77 mL/min (>60); Glucose 162 mg/dL (74-106); Potassium 4.2 mmol/L (3.5-5.1); Protein, Total 7.6 g/dL (6.4-8.2); Sodium Level 141 mmol/L (136-145)
== END | disposition home or self-care (01) ==
LOC: POLAB3 11:51
PROVIDERS: PCP Family Medicine Geriatric Medicine; Visit Provider Family Medicine Geriatric Medicine
DX: E11.65 Type 2 diabetes mellitus with hyperglycemia (principal); I10 Essential (primary) hypertension
CPT/HCPCS: 36415; 80053; 84443; 85025

== ENCOUNTER → 2024-01-24 | Outpatient (CLI) | payer BC, SELFPAY ==
--- NOTE | 2024-01-24 07:58 | BI_ITS ---
MAMMOGRAPHY - BILATERAL SCREENING REASON FOR EXAM: Female, 53 years old. Routine annual screening examination. PERTINENT HISTORY: Non-contributory. TECHNIQUE: Digital bilateral breast preston (3D mammographic acquisition) in the CC and MLO projections. 2-D mediolateral oblique (MLO) and craniocaudad (CC) views of both breasts were obtained. CAD: Full Field Digital Mammography with Computer Added Detection was performed. COMPARISON: Comparison is made with prior study March 07, 2022. FINDINGS: Breast Composition: There are scattered areas of fibroglandular density. There are no dominant masses or suspicious calcifications. No other significant abnormalities are identified. There has been no significant change since the prior study. BI/SCRN MAMM (CAD)W/PRESTON BILAT IMPRESSION: Stable bilateral screening mammogram. Yearly follow-up mammogram recommended. (A) ASSESSMENT CATEGORY: BIRADS Category 1: Negative. A letter regarding these results will be sent to the patient by the facility within 30 days. Approximately 10% of breast cancers are not detected by mammography. A normal mammogram should not delay biopsy of a clinically suspicious abnormality. [id number] Electronically Signed: Michel Alfred MD at 9:52 EDT ,
== END | disposition home or self-care (01) ==
LOC: OPBI 07:56
PROVIDERS: PCP Family Medicine Geriatric Medicine; Referring Provider Family Medicine Geriatric Medicine; Visit Provider Family Medicine Geriatric Medicine
DX: Z12.31 Encounter for screening mammogram for malignant neoplasm of breast (principal)
CPT/HCPCS: 77063; 77067

== ENCOUNTER → 2024-02-16 | Outpatient (CLI) | payer BC, SELFPAY ==
[2024-02-16 13:04] LABS: T4 Free Direct 1.01 ng/dL (0.76-1.46)
== END | disposition home or self-care (01) ==
LOC: MTLAB 10:16
PROVIDERS: PCP Family Medicine Geriatric Medicine; Referring Provider Nurse Practitioner Family; Visit Provider Nurse Practitioner Family
DX: E03.9 Hypothyroidism, unspecified (principal)
CPT/HCPCS: 36415; 84439; 84443

== ENCOUNTER → 2024-03-04 | Outpatient (CLI) | payer BC, SELFPAY ==
--- NOTE | 2024-03-04 12:23 | RAD_ITS ---
INDICATION: WHEEZING EXAMINATION/TECHNIQUE: X-RAY - XR Chest 2 Views COMPARISON: Prior study dated: 03/03/2021 FINDINGS: LINES/DEVICES: None. LUNGS: No consolidation, edema or effusion. No pneumothorax. MEDIASTINUM AND CARDIOVASCULAR STRUCTURES: Cardiac silhouette not enlarged. Central airways and mediastinal contour are unremarkable. BONES AND SOFT TISSUES: No acute osseous changes. RAD/Chest PA and Lateral IMPRESSION: No radiographic evidence of acute cardiopulmonary disease. Electronically Signed: Eduard Berrios MD at 20:04 EST ,
== END | disposition home or self-care (01) ==
LOC: LAB 12:22
PROVIDERS: PCP Family Medicine Geriatric Medicine; Referring Provider Family Medicine Geriatric Medicine; Visit Provider Family Medicine Geriatric Medicine
DX: R06.2 Wheezing (principal)
CPT/HCPCS: 71046

== ENCOUNTER → 2024-03-04 | Outpatient (CLI) | payer BC, SELFPAY | END | disposition home or self-care (01) | LOC: POLAB3 12:22 | PROVIDERS: PCP Family Medicine Geriatric Medicine; Visit Provider Family Medicine Geriatric Medicine | DX: R68.83 Chills (without fever) (principal) | CPT/HCPCS: 87631 ==

== ENCOUNTER → 2024-04-19 | Outpatient (CLI) | payer OTHER, SELFPAY ==
--- NOTE | 2024-04-19 08:30 | CT_ITS ---
STUDY: CT Abdomen W/O Contrast Injection 04/21/2024 3:58 PM REASON FOR EXAM: Female, 54 years old. Abdominal pain umbilical hernia Individualized dose optimization techniques were used for this CT. COMPARISON: None. TECHNIQUE: CT Abdomen W/O Contrast Injection FINDINGS: There are atherosclerotic calcifications of visualized coronary arteries. The visualized portions of the heart are within normal limits. Normal liver. There are surgical clips in the gallbladder fossa consistent with a prior cholecystectomy. Normal spleen. Normal pancreas. Normal bilateral adrenal glands. No acute findings of the right kidney. No acute findings of the left kidney. Normal visualized stomach. Normal small intestine. Stool throughout the colon. The appendix is visualized and appears normal. There are calcifications of the abdominal aorta. This is consistent for atherosclerotic disease. There is NO abdominal aortic aneurysm. Vascular workup can be obtained based on clinical correlation. Normal inferior vena cava. Subcentimeter mesenteric lymph nodes. Normal urinary bladder. There is atrophy of the uterus. There is a very small umbilical hernia containing fat. There are diffuse degenerative changes of the visualized lumbar spine. CT/Abdomen without IV Contrast IMPRESSION: (NOT LISTED IN ORDER OF SIGNIFICANCE) There is a very small umbilical hernia containing fat. Other findings as above. Electronically Signed: Roverto Beebe MD at 16:01 [facility] ,
== END | disposition home or self-care (01) ==
PROVIDERS: PCP Family Medicine Geriatric Medicine; Referring Provider Surgery; Visit Provider Surgery
DX: K42.9 Umbilical hernia without obstruction or gangrene (principal)
CPT/HCPCS: 74150

== ENCOUNTER → 2024-05-02 | Outpatient (CLI) | payer OTHER, SELFPAY ==
[2024-05-02 14:56] LABS: T4 Free Direct 1.05 ng/dL (0.76-1.46)
== END | disposition home or self-care (01) ==
LOC: LAB 12:42
PROVIDERS: PCP Family Medicine Geriatric Medicine; Referring Provider Nurse Practitioner Family; Visit Provider Nurse Practitioner Family
DX: E03.9 Hypothyroidism, unspecified (principal)
CPT/HCPCS: 36415; 84439; 84443

== ENCOUNTER → 2024-07-03 | Outpatient (CLI) | payer OTHER, SELFPAY ==
[2024-07-03 12:40] LABS: Absolute Lymphocyte Count 2.19 X10^3/uL (0.83-4.51); Absolute Neutrophil Count 4.9 X10^3/uL (2.0-7.7); Basophil# 0.08 X10^3/uL; Eosinophil# 0.15 X10^3/uL; Eosinophils% 1.8 % (0-5); Hematocrit 35.7 % (37-47); Hemoglobin 10.8 g/dL (12.0-15.0); Lymphocyte # 2.19 X10^3/ul (0.83-4.51); Lymphocyte % 26.7 % (19-41); Mean Corp Hgb Conc 30.3 g/dL (32-36); Mean Corpuscular Hgb 24.2 pg (27.0-32.0); Mean Platelet Vol. 9.8 fl (6.2-12.0); Monocyte# 0.81 X10^3/uL; Monocyte% 9.9 % (0-10); NRBC Flagged by Analyzer 0 % (0-5); Neutrophil # 4.94 X10^3/uL (2.7-7.7); Neutrophil % 60.1 % (47-70); Platelet Count 282 K/mm3 (150-450); RBC Distribution Width CV 15.5 % (11.6-14.6); RBC Distribution Width SD 44.4 fl (35.1-43.9); Red Blood Count 4.46 M/mm3 (4.2-5.4); White Blood Count 8.2 K/mm3 (4.4-11.0)
[2024-07-03 13:31] LABS: ALB/GLOB Ratio 1.5 RATIO (0.9-2.4); AST(SGOT) 67 U/L (<=31); Alanine Aminotransfer ALT/SGPT 62 U/L (<=34); Albumin, Serum 4.2 g/dL (3.5-5.0); Alkaline Phosphatase 50 U/L (35-104); Anion Gap 12 (5-15); BUN 19 mg/dL (4-19); Calcium,Total 9.4 mg/dL (7.6-11.0); Carbon Dioxide 28.2 mmol/L (21.0-32.0); Chloride 102 mmol/L (98-108); EST Glomerular Filtration Rate 67 (>60); Globulin 2.8 g/dL (2.2-4.2); Glucose 133 mg/dL (70-99); Potassium 4.3 mmol/L (3.3-5.1); Sodium Level 142 mmol/L (133-145); Thyroid Stim Hormone (TSH) 0.593 uIU/mL (0.300-4.200); Total Bilirubin 0.41 mg/dL (0.00-1.30)
== END | disposition home or self-care (01) ==
LOC: LAB 11:51
PROVIDERS: PCP Family Medicine Geriatric Medicine; Referring Provider Family Medicine Geriatric Medicine; Visit Provider Family Medicine Geriatric Medicine
DX: E11.65 Type 2 diabetes mellitus with hyperglycemia (principal); I10 Essential (primary) hypertension
CPT/HCPCS: 36415; 80053; 84443; 85025

== ENCOUNTER 2024-10-05 19:11 | Observation (INO) | payer OTHER, SELFPAY ==
[2024-10-05] VITALS (7 sets, daily range): BP systolic 112–143; BP diastolic 65–74; PULSE 71–88; RESP 13–22; TEMP 36.4–37.1; O2SAT 92–100; BMI 45.6; BMI 45.1
--- NOTE | 2024-10-05 19:27 | EKG12_ITS ---
Test Reason : CP Blood Pressure : */* mmHG Vent. Rate : 73 BPM Atrial Rate : 73 BPM P-R Int : 140 ms QRS Dur : 80 ms QT Int : 398 ms P-R-T Axes : 6 48 41 degrees QTcB Int : 438 ms Normal sinus rhythm Low voltage QRS Borderline ECG Confirmed by THA CASTRO MD ([id number]), pictures editor MAXIMO BARILLAS ([id number]) on 10/07/2024 11:35:42 AM Referred By: JEAN-PAUL Confirmed By: THA CASTRO MD
--- NOTE | 2024-10-05 19:28 | ED.VIS.CHEST ---
HPI History of Present Illness Chief Complaint: Chest Pain Detail of Chief Complaint: Chest pain Informant: patient and spouse/S.O. Narrative Narrative: Patient presents with left-sided chest pain that started 3 days ago. Pain seemed to intensify today. Describes it as a pressure or heaviness at times and at times it sharp. Also was noted sometimes with walking her heart rate will dip down into the 30s. Patient states the discomfort sometimes radiates to her left arm. Feels somewhat short of breath and dizzy. Denies recent surgery although she recently had travel to [place] by car but it was less than 4 hours. No history of PE or DVT. She has no heart history. She is a diabetic and has history of hypertension and high cholesterol. Patient also with history of anxiety and history of GERD. Currently rates her pain a 5 out of 10. [facility] Medical History Post-menopausal Wears contact lenses Anxiety Thyroid disease Fatty liver Hepatitis History of renal disease GERD (gastroesophageal reflux disease) Non-smoker Shortness of breath on exertion MRSA (methicillin resistant Staphylococcus aureus) Acute pharyngitis, unspecified Kidney disease Insulin pump in place SIRS (systemic inflammatory response syndrome) Hypothyroidism Tonsillectomy planned delivery delivered Neuropathy Hives High blood triglycerides Hepatitis A Hearing problem Gall stones Carpal tunnel syndrome Arthritis Allergies Depression Psoriatic arthritis High cholesterol Hypertension Migraines Morbid obesity with BMI of 45.0-49.9, adult Home Medications Medication Instructions Recorded Last Taken Type albuterol sulfate 90 mcg/actuation 1 puff inhalation Q4H PRN PRN 12/01/13 01/28/22 History aerosol inhaler (Ventolin HFA) Shortness Of Breath zolpidem 10 mg tablet (Ambien) 5 mg PO QHS PRN sleep 12/01/13 02/03/22 History epinephrine 0.3 mg/0.3 mL 0.3 mg (0.3 mL) IJ X1 PRN 02/03/19 Unknown Rx injection, auto-injector Anaphylaxis ##1 atorvastatin 40 mg tablet 40 mg PO DAILY 02/03/21 02/03/22 History cetirizine 10 mg tablet 10 mg PO DAILY 02/03/21 02/03/22 History valsartan 320 mg tablet 320 mg PO QHS 03/07/23 Unknown History metformin 1,000 mg tablet 1,000 mg PO BID 11/01/23 Unknown History paroxetine HCl 40 mg tablet 40 mg PO QDAY 11/01/23 Unknown History insulin lispro 200 unit/mL (3 mL) 170 unit (0.85 mL) subcut ONCE 05/02/24 Unknown Rx subcutaneous pen (Humalog KwikPen #76.5 mL U-200 Insulin) levothyroxine 125 mcg tablet 125 mcg PO QDAY #90 tabs 05/02/24 Unknown Rx empagliflozin 25 mg tablet 25 mg PO QDAY #90 tabs 06/10/24 Unknown Rx (Jardiance) finerenone 10 mg tablet (Kerendia) 10 mg PO DAILY 10/05/24 Unknown History pantoprazole 40 mg tablet,delayed 40 mg PO DAILY 10/05/24 Unknown History release polysaccharide iron complex 150 mg 150 mg PO DAILY 10/05/24 Unknown History iron capsule (Ferrex) sulfamethoxazole 800 1 tab PO QHS 10/05/24 Unknown History mg-trimethoprim 160 mg tablet Allergy/AdvReac Type Severity Reaction Status Date / Time nut - unspecified Allergy Anaphylaxis Verified 10/05/24 19:16 peanut Allergy Anaphylaxis Verified 10/05/24 19:16 shellfish derived Allergy Anaphylaxis Verified 10/05/24 19:16 codeine AdvReac Rash Verified 10/05/24 19:16 prednisone AdvReac Other Verified 10/05/24 19:16 sertraline HCl (From Zoloft) AdvReac Other Verified 10/05/24 19:16 Family History Other Alcohol abuse Anxiety Arthritis Asthma Bleeding disorder Bowel disease Depression Diabetes Hypertension Severe allergy Surgical History History of endometrial ablation History of removal of ovarian cyst History of cholecystectomy Social History household members: none Smoking Status: Never smoker alcohol intake: current alcohol intake frequency: 0-2 drinks per day substance use type: does not use what type of physical activity do you participate in: walking ROS ROS ED Review of Systems ROS Unobtainable: other Constitutional Constitutional ED: Reports lethargy; Denies chills, fever(s), sweats or weight loss Eyes Eyes: Denies blurry vision, change in vision or diplopia ENT ENT ED: Denies rhinorrhea or sore throat Cardiovascular Cardiovascular: Reports chest pain; Denies orthopnea or racing heartbeat Respiratory/Chest Respiratory/Chest: Reports dyspnea; Denies cough, dyspnea on exertion, orthopnea or sputum Gastrointestinal Gastrointestinal: Reports nausea; Denies abdominal pain, diarrhea or vomiting Genitourinary Genitourinary ED: Denies dysuria, hematuria or urinary frequency Musculoskeletal Musculoskeletal: Denies arthralgias, back pain, myalgias or neck pain Integumentary Denies abscess, Abrasions or rash Neurologic Neurologic: Denies headache(s) or weakness Psychiatric Psychiatric: Denies anxiety, depression or suicidal thoughts Endocrine Endocrinology: Denies polydipsia, polyphagia or polyuria Hematologic/Lymphatic Hematologic/Lymphatic: Denies easy bleeding, easy bruising or lymphadenopathy Allergic/Immunologic Allergic/Immunologic ED: Denies mouth swelling, tongue swelling or urticaria EXAM Physical Exam Const Vital Signs: 10/05/24 19:13 10/05/24 19:23 10/05/24 19:43 Temperature 98.1 F Temperature Source Oral Pulse Rate 81 73 Respiratory Rate 20 H Respiratory Effort Normal Non-Labored Blood Pressure 123/67 H 112/66 Blood Pressure Mean 85 Pulse Ox 100 Oxygen Delivery Method Room Air 10/05/24 19:47 10/05/24 20:11 Temperature Temperature Source Pulse Rate 80 Respiratory Rate 13 Respiratory Effort Blood Pressure 130/74 H Blood Pressure Mean 92 Pulse Ox 92 Oxygen Delivery Method Room Air Room Air Positive well nourished and well developed General Appearance ED: well developed and NAD HEENT Reports TM's clear and moist mucous membranes normocephalic and atraumatic; Negative for trauma or tenderness Tympanic Membrane ED: Yes TM's clear Eyes PERRL and EOMs intact bilaterally General Eye ED: Negative for pale conjunctiva or scleral icterus Neck no lymphadenopathy, supple and no JVD General: Negative for tenderness Chest Wall inspection of chest normal and palpation of chest normal Chest: Negative for tenderness Resp normal respiratory effort and clear to auscultation bilaterally Effort and Inspection: Negative for respiratory distress or pain with movement Auscultation: Negative for rhonchi, wheezes or diminished lung sounds Cardio regular rate, regular rhythm, S1 normal heart sound, S2 normal heart sound and no murmurs Peripheral Pulses: pulses 2+ throughout GI normal to inspection, nondistended, normoactive bowel sounds, soft to palpation, non-tender, non-distended and no masses Back/Spine no CVA tenderness and no thoracic nor lumbar tenderness Extremity normal to inspection General Extremety ED: Negative for edema General Extremity: Negative for edema Neuro oriented x3, CN's II-XII intact bilaterally, no sensory deficits noted and gait normal Sensorium / Orientation: awake, alert, oriented to person, oriented to place and oriented to time Motor Exam: strength 5/5 throughout and strength abnormal Psych mental status grossly normal Skin no rashes or lesions noted and no wounds Heart Score History: Highly Suspicious ECG: Normal Age: >45 - <65 years Risk Factors: >/= 3 Risk Factors or History of CAD Troponin: >1 - <3 Normal Limit Score: 6 MDM MDM MDM Narrative Medical decision making narrative: Patient presents with chest pain x 3 days. She complains of some dyspnea and a pressure that radiates to her left arm. In the differential would be acute coronary syndrome versus PE or pneumothorax or less likely infectious etiology. IV line established. EKG obtained on arrival shows sinus rhythm with ventricular rate of 73 bpm with no acute ST segment changes. CBC with differential shows a white count of 9.5 with hemoglobin 10.9 and platelet count 276. Chemistries unremarkable. D-dimer was normal at 0.42. Troponin was elevated at 21. Chest x-ray 1 view unremarkable. Case will be discussed with hospitalist to evaluate patient for admission. While in the department she did receive aspirin and was given sublingual nitro which just minimally helped her pain. I did order 4 mg of morphine. Lab Data Attestation: I reviewed the patient's lab results. Labs: Laboratory Results - last 24 hr 10/05/24 10/05/24 19:37 20:17 WBC 9.5 RBC 4.56 Hgb 10.9 L Hct 34.7 L MCV 76.1 L MCH 23.9 L MCHC 31.4 L RDW Std Deviation 42.5 RDW Coeff of Libby 15.5 H Plt Count 276 MPV 9.7 Immature Gran % (Auto) 0.200 Neut % (Auto) 51.7 Lymph % (Auto) 36.5 [place] % (Auto) 9.5 Eos % (Auto) 1.6 Baso % (Auto) 0.5 Absolute Neuts (auto) 4.9 Absolute Lymphs (auto) 3.48 Nucleated RBC % 0 D-Dimer Quant (PE/DVT) Cancelled 0.42 Sodium 140 Potassium 4.8 Chloride 104 Carbon Dioxide 21.3 Anion Gap 15 BUN 29 H Creatinine 1.37 H Estim Creat Clear Calc 66.52 Est GFR (MDRD) Non-Af 46 L BUN/Creatinine Ratio 20.9 H Glucose 103 H Calcium 10.2 Troponin T High Sens 21 H Radiography Diagnostic Testing: Clinical Impression(s) from Imaging Studies Chest X-Ray 10/05/24 20:00 IMPRESSION: No acute cardiopulmonary abnormality. Reading Location: [facility] 1 view chest x-ray obtained interpreted by myself as no evidence of acute disease process. Radiology in agreement. EKG Initial EKG: Attestation: I personally reviewed and interpreted this EKG as follows: Comments: Sinus rhythm with ventricular rate of 73 bpm with no acute ST segment changes Discharge Plan Triage Chief Complaint: Chest Pain ED Provider: Anton Thacker Dx/Rx/DC Orders Clinical Impression: Chest pain, Acute coronary syndrome, Diabetes, Hypertension Prescriptions: No Action metformin 1,000 mg tablet 1,000 mg PO BID paroxetine HCl 40 mg tablet 40 mg PO QDAY Humalog KwikPen Insulin 200 unit/mL (3 mL) insulin pen 170 unit subcut ONCE Qty: 76.5 1RF Rx Instructions: to be used in insulin pump zolpidem [Ambien] 10 MG tablet 5 mg PO QHS PRN (Reason: sleep) Patient Comments: sleeping pill albuterol sulfate [Ventolin HFA] 1 INHALER inhaler 1 puff inhalation Q4H PRN PRN (Reason: Shortness Of Breath) Patient Comments: breathing epinephrine 0.3 MG/0.3 ML auto-injector 0.3 mg IJ X1 PRN (Reason: Anaphylaxis) Qty: 1 0RF atorvastatin 40 mg Tablet 40 mg PO DAILY cetirizine 10 mg Tablet 10 mg PO DAILY valsartan 320 mg tablet 320 mg PO QHS sulfamethoxazole-trimethoprim 800-160 mg tablet 1 tab PO QHS pantoprazole 40 mg tablet,delayed release (DR/EC) 40 mg PO DAILY polysaccharide iron complex [Ferrex 150] 150 mg iron capsule 150 mg PO DAILY Kerendia 10 mg tablet 10 mg PO DAILY levothyroxine 125 mcg tablet 125 mcg PO QDAY Qty: 90 1RF Jardiance 25 mg tablet 25 mg PO QDAY Qty: 90 1RF Primary Care Provider: Phu Espinoza Chi Referrals: Phu Espinoza Chi, MD [Primary Care Provider] - Print Language: Kyrgyz Disposition Disposition: Acute Care Hospital [facility]
[2024-10-05] MEDS: 0.9% Normal Saline (1000mL) 1,000 ML 150 ML IV (19:42)
[2024-10-05] MEDS: Nitroglycerin SL (ED/IMG/CATH) 0.4 MG TABLET SL ×2 (19:43→23:51)
[2024-10-05 19:45] LABS: Hematocrit 34.7 % (37-47); Hemoglobin 10.9 g/dL (12.0-15.0); Immature Granulocytes Count 0.020 X10^3/uL (0.0-0.0); Mean Corp Hgb Conc 31.4 g/dL (32-36); Mean Corpuscular Volume 76.1 fL (81-99); Mean Platelet Vol. 9.7 fl (6.2-12.0); NRBC Flagged by Analyzer 0 % (0-5); Platelet Count 276 K/mm3 (150-450); RBC Distribution Width CV 15.5 % (11.6-14.6); RBC Distribution Width SD 42.5 fl (35.1-43.9); Red Blood Count 4.56 M/mm3 (4.2-5.4); White Blood Count 9.5 K/mm3 (4.4-11.0)
[2024-10-05] MEDS: DiphenhydrAMINE 50 MG/ML Syringe 25 MG IV (19:49)
--- OUTSIDE RECORDS SUMMARY | 2024-10-05 19:54 | XMS RPT_ITS | CCD ---
Author Organization [facility] Care Team Providers Care [employer] Production Specialist Name Role Phone Charles Rae Primary Care Provider Sid Harrison Primary Care Provider [phone] Alexis, Dr. Phu Aldana Primary Care Provider Alexis, Dr. Phu Aldana Referring Provider ADELITA Gibbons Attending Provider Alexis, Dr. Phu Aldana Primary Care Provider Alexis, Dr. Phu Aldana Referring Provider ADELITA Gibbons Attending Provider Alexis, Dr. Phu Aldana Primary Care Provider Alexis, Dr. Phu Aldana Referring Provider ADELITA Gibbons Attending Provider Alexis, Dr. Phu Aldana Primary Care Provider Alexis, Dr. Phu Aldana Referring Provider ADELITA Gibbons Attending Provider Dr. Dante Pruitt Emergency Provider Dr. Megan Gomez Admit Provider Dr. Megan Gomez Other Provider Dr. Jodi Agee Attending Provider Dr. Jodi Agee Other Provider Dr. Marcellus Ceballos Other Provider Dr. Marcellus Ceballos Attending Provider [phone] Alexis, Dr. Phu Aldana Primary Care Provider Alexis, Dr. Phu Aldana Referring Provider Jemma SIMMONS, PA Evin Sofia Attending Provider IRIS Lemus Attending Provider Shai AFTER SCHOOL PROGRAM COORDINATOR-C Massiel Attending Provider Alexis, Dr. Phu Aldana Primary Care Provider Alexis, Dr. Phu Aldana Referring Provider Shai, AFTER SCHOOL PROGRAM COORDINATOR-C Massiel Attending Provider Alexis, Dr. Phu Aldana Primary Care Provider Alexis, Dr. Phu Aldana Referring Provider Shai, AFTER SCHOOL PROGRAM COORDINATOR-C Massiel Attending Provider Alexis, Dr. Phu Aldana Primary Care Provider Alexis, Dr. Phu Aldana Referring Provider Shai AFTER SCHOOL PROGRAM COORDINATOR-C Massiel Attending Provider Dr. Jodi Agee Attending Provider Dr. Jodi Agee Other Provider Alexis, Dr. Phu Aldana Primary Care Provider Alexis, Dr. Phu Aldana Referring Provider LISY GibbonsC Massiel Attending Provider Alexis, Dr. Phu Aldana Primary Care Provider Alexis, Dr. Phu Aldana Referring Provider Shai AFTER SCHOOL PROGRAM COORDINATOR-C Masisel Attending Provider Dr. Jodi Agee Attending Provider Dr. Jodi Agee Other Provider Alexis DICKENS, Dr. Phu Aldana Primary Care Provider Alexis DICKENS, Dr. Phu Aldana Referring Provider Cyndie DICKENS, Dr. Zapata Attending Provider Cyndie DICKENS, Dr. Zapata Referring Provider Shai AFTER SCHOOL PROGRAM COORDINATOR-C, Massiel Attending Provider Shai AFTER SCHOOL PROGRAM COORDINATOR-CMassiel Referring Provider [phone] Dr. Phu Espinoza MD, Chi Attending Provider [phone] Robotham, Jodi Referring Unavailable Robotham, Jodi Attending Unavailable Alexis, Phu Chi Primary Care Unavailable Shai, Massiel Attending Unavailable Shai, Massiel Referring Unavailable Alexis, Phu Chi Primary Care Unavailable Alexis, Phu Chi Referring Unavailable Alexis, Phu Chi Attending Unavailable Alexis, Phu Chi Primary Care Unavailable ShaiManueln Attending Unavailable Alexis, Phu Chi Primary Care Unavailable Alexis, Phu Chi Referring Unavailable Alexis, Phu Chi Referring Unavailable Robotham, Jodi Attending Unavailable Alexis, Phu Chi Primary Care Unavailable Shai, Massiel Referring Unavailable Shai, Massiel Attending Unavailable Alexis, Phu Chi Primary Care Unavailable Alexis, Phu Chi Referring Unavailable Shai, Massiel Attending Unavailable Alexis, Phu Chi Primary Care Unavailable Alexis, Phu Chi Referring Unavailable Shai, Massiel Attending Unavailable Alexis, Phu Chi Primary Care Unavailable Alexis, Phu Chi Attending Unavailable Alexis, Phu Chi Primary Care Unavailable Alexis, Phu Chi Referring Unavailable Alexis, Phu Chi Attending Unavailable Alexis, Phu Chi Primary Care Unavailable Alexis, Phu Chi Attending Unavailable Alexis, Phu Chi Primary Care Unavailable Alexis, Phu Chi Referring Unavailable Alexis, Phu Chi Attending Unavailable Alexis, Phu Chi Primary Care Unavailable Alexis, Phu Chi Referring Unavailable ShaiMassiel Attending Unavailable Alexis, Phu Chi Primary Care Unavailable Alexis, Phu Chi Attending Unavailable Alexis, Phu Chi Primary Care Unavailable Alexis, Phu Chi Referring Unavailable Allergies Allergy Classification Reported Allergen(s) Allergy Type Date of Onset Reaction(s) Facility (20 sources) Codeine Drug Allergy 6 Mental Status Change [facility] (20 sources) predniSONE Drug Allergy 6 Mental Status Change [facility] (1 source) Sertraline Drug Allergy 2 Unknown [facility] (8 sources) Nuts (not including peanuts) Allergy to substance 2 Anaphylaxis [facility] Work Phone: (20 sources) peanut allergenic extract Drug Allergy 2 Anaphylaxis [facility] (20 sources) Sertraline; Translations: [sertraline HCl] Drug Allergy 2 Other [facility] (20 sources) Shellfish; Translations: [shellfish derived] Allergy to substance 2 Anaphylaxis [facility] (14 sources) nut - unspecified; Translations: [nut - unspecified] Allergy to substance 2 Anaphylaxis [facility] (1 source) Codeine Drug Allergy 5 [facility] (1 source) peanut allergenic extract Drug Allergy 5 [facility] (1 source) predniSONE Drug Allergy 5 [facility] Medications Current Medications Medication Drug Class(es) Dates Sig (Normalized) Sig (Original) Albuterol Sulfate (20 sources) beta2-Adrenergic Agonist Start: 12-01-2013 take 1 puff(s) by inhalation every four hours as needed Albuterol Sulfate (Ventolin Hfa) 1 INHALER inhaler Active 1 PUFF INHALATION EVERY 4 HOURS NEEDED December 01, 2013 1:22pm Start: 12-01-2013 Albuterol Sulf ate (Ventolin Hfa) 1 INHALER inhaler Active 1 NMA INHALATION EVERY 4 HOURS NEEDED as needed for Shortness Of Breath December 01, 2013 12:00am Start: 12-01-2013 take 1 puff(s) by in halation every four hours as needed Albuterol Sulfate (Ventolin Hfa) 1 INHALER inhaler Active 1 PUFF INHALATION EVERY 4 HOURS NEEDED November 30, 2013 11:00pm Start: 12-01-2013 take 1 puff(s) by in halation every four hours as needed Albuterol Sulfate (Ventolin Hfa) 1 INHALER inhaler Active 1 PUFF INHALATION EVERY 4 HOURS NEEDED December 01, 2013 12:00am apremilast 30 mg oral tablet (9 sources) Start: 02-03-2021 take 1 tablet by mouth twice daily Apremilast (Otezla) 30 mg Tablet Active 30 MG PO TWICE A DAY February 03, 2021 12:00am atorvastatin 40 mg oral tablet (20 sources) HMG-CoA Reductase Inhibitor Start: 02-03-2021 take 1 tablet by mouth once daily Atorvastatin 40 mg Tablet Active 40 mg PO DAILY February 03, 2021 1:00am cetirizine hydrochloride 10 mg oral tablet (20 sources) Histamine-1 Receptor Antagonist Start: 02-03-2021 take 1 tablet by mouth once daily Cetirizine 10 mg Tablet Active 10 mg PO DAILY February 03, 2021 1:00am 0.5 ml dulaglutide 3 mg/ml auto-injector (20 sources) GLP-1 Receptor Agonist Start: 06-09-2021 Dulaglutide (Trulicity) 1.5 mg/0.5 mL pen injector Active 1.5 MG SC EVERY WEEK 2 June 08, 2021 11:00pm Start: 05-13-2021 End: 06-09-2021 Dulaglutide (Trulicity) 0.75 mg/0.5 mL pen injector Discontinued 0.75 mg SC EVERY WEEK May 27, 2021 1:14pm June 09, 2021 4:30pm empagliflozin 25 mg oral tablet (2 sources) Sodium-Glucose Cotransporter 2 Inhibitor Start: 05-02-2024 End: 06-10-2024 take 1 tablet by mouth once daily Empagliflozin (Jardiance) 25 mg tablet Active 25 mg PO daily June 10, 2024 11:55am [id number] 0.3 ml EPINEPHrine 1 mg/ml auto-injector (20 sources) alpha-Adrenergic Agonist, beta-Adrenergic Agonist, Catecholamine Start: 02-03-2019 Epinephrine 0.3 MG/0.3 ML auto-injector Active 0.3 mg IJ ONE TIME as needed for Anaphylaxis 1 February 03, 2019 4:03pm Start: 12-01-2013 End: 03-02-2023 Epinephrine 0.3 MG syringe D iscontinued 0.3 mg IM NEEDED as needed for Anaphylaxis 2 December 01, 2013 3:39pm March 02, 2023 12:14pm 3 ml insulin lispro 200 unt/ml pen injector (20 sources) Insulin Analog Start: 12-06-2023 End: 05-02-2024 Insulin Lispro (Humalog Kwikpen Insulin) 200 unit/mL (3 mL) insulin pen Active 170 U SC ONCE 76.5 May 02, 2024 1:11pm to be used in insulin pump Start: 08-09-2023 End: 01-31-2024 Insulin Lispro (Humalog U-10 0 Insulin) 100 unit/mL solution Discontinued 155 U continuous subcutaneous infusion .continuous 140 August 09, 2023 3:50pm January 31, 2024 12:45pm Start: 08-03-2023 End: 08-09-2023 Insulin Lispro (Humalog U-10 0 Insulin) 100 unit/mL solution Discontinued 150 U continuous subcutaneous infusion .continuous 135 August 03, 2023 11:17am August 09, 2023 3:52pm Start: 07-28-2021 End: 08-03-2023 Insulin Lispro (Humalog U-10 0 Insulin) 100 unit/mL solution Discontinued 100 U continuous subcutaneous infusion .continuous 90 August 08, 2022 12:22pm August 03, 2023 11:18am Start: 06-11-2021 End: 07-28-2021 Insulin Lispro (Humalog Kwik pen Insulin) 200 unit/mL (3 mL) insulin pen Discontinued 35 U SC THREE TIMES A DAY June 11, 2021 12:00am July 28, 2021 3:30pm levothyroxine sodium 0.125 mg oral tablet (16 sources) l-Thyroxine Start: 01-31-2024 End: 05-02-2024 take 1 tablet by mouth once daily Levothyroxine 125 mcg tablet Active 125 ug PO daily May 02, 2024 4:56pm Start: 02-15-2023 End: 01-31-2024 take 1 tablet by mouth once daily Levothyroxine 25 mcg tablet Discontinued 25 ug PO DAILY February 15, 2023 1:00am January 31, 2024 1:30pm Start: 05-12-2021 Levothyroxine Active EACH PO May 12, 2021 12:00am metFORMIN hydrochloride 1000 mg oral tablet (20 sources) Biguanide Start: 11-01-2023 take 1 tablet by mouth twice daily Metformin 1,000 mg tablet Active 1000 mg PO TWICE A DAY November 01, 2023 12:00am Start: 12-01-2013 End: 11-01-2023 Metformin (Glucophage Xr) 75 0 MG tablet extended release 24 hr Discontinued 1000 mg PO TWICE A DAY December 01, 2013 12:00am November 01, 2023 11:50am PARoxetine hydrochloride 40 mg oral tablet (20 sources) Serotonin Reuptake Inhibitor Start: 11-01-2023 take 1 tablet by mouth once daily Paroxetine Hcl 40 mg tablet Active 40 mg PO daily November 01, 2023 12:00am Start: 12-01-2013 End: 11-01-2023 Paroxetine Hcl (Paxil) 30 MG tablet Discontinued 40 mg PO AT BEDTIME December 01, 2013 12:00am November 01, 2023 11:50am Start: 02-08-2006 PAXIL 30 MG TA B Take one(1) tablet daily. 0 02/08/2006 Active Comment on above: Take one(1) tablet d aily. valsartan 320 mg oral tablet (4 sources) Angiotensin 2 Receptor Remy Start: 03-07-2023 take 1 tablet by mouth at bedtime Valsartan 320 mg tablet Active 320 mg PO AT BEDTIME March 07, 2023 1:00am zolpidem tartrate 10 mg oral tablet (20 sources) gamma-Aminobutyric Acid-ergic Agonist Start: 12-01-2013 take 5 mg by mouth at bedtime Zolpidem (Ambien) 10 MG tablet Active 5 mg PO AT BEDTIME December 01, 2013 12:00am Completed/Discontinued Medications Medication Drug Class(es) Dates Sig (Normalized) Sig (Original) acetaminophen 325 mg / HYDROcodone bitartrate 5 mg oral tablet (20 sources) Opioid Agonist Start: 11-18-2018 End: 11-24-2018 Hydrocodone-Acetami nophen 1 TABLET tablet Discontinued 1 {tbl} PO EVERY 4 HOURS NEEDED as needed for Pain 4 2 November 18, 2018 November 19, 2018 12:00am November 24, 2018 12:08am Start: 11-18-2018 End: 11-24-2018 take 1 tablet by mouth every four hours as needed Hydrocodone-Acetaminophen Discontinued 1 TABLET PO EVERY 4 HOURS NEEDED 4 2 November 18, 2018 November 24, 2018 12:08am amoxicillin 500 mg oral capsule (10 sources) Penicillin-class Antibacterial Start: 03-25-2022 End: 04-04-2022 take 1 capsule by mouth three times daily Amoxicillin 500 mg capsule Discontinued 500 mg PO THREE TIMES A DAY 23 01March 25, 2022 1:00am April 03, 2022 1:00am April 04, 2022 1:04am Blood-Glucose Sensor (Dexcom G6 Sensor) device (20 sources) Start: 05-15-2023 End: 12-06-2023 Blood-Glucose Sensor (Dexcom G6 Sensor) device Discontinued 0 .ROUTE .MEDSUPPLY May 15, 2023 4:52pm December 06, 2023 3:44pm As directed Start: 05-15-2023 Blood-Glucose Sensor (Dexcom G6 Sensor) device Active 0 .ROUTE .MEDSUPPLY 3 May 15, 2023 4:52pm As directed Start: 10-05-2022 End: 05-15-2023 Blood-Glucose Sensor (Dexcom G6 Sensor) device Discontinued 0 .ROUTE .MEDSUPPLY 3 October 05, 2022 4:59pm May 15, 2023 4:52pm As directed Start: 10-05-2022 Blood-Glucose Sensor (Dexcom G6 Sensor) device Active 0 .ROUTE .MEDSUPPLY 3 October 05, 2022 3:59pm As directed Start: 10-05-2022 Blood-Glucose Sensor (Dexcom G6 Sensor) device Active 0 .ROUTE .MEDSUPPLY 3 October 05, 2022 4:59pm As directed Start: 02-24-2022 End: 10-05-2022 Blood-Glucose Sensor (Dexcom G6 Sensor) device Discontinued 0 .ROUTE .MEDSUPPLY 3 February 24, 2022 7:50am October 05, 2022 3:59pm As directed Start: 02-24-2022 End: 10-05-2022 Blood-Glucose Sensor (Dexcom G6 Sensor) device Discontinued 0 .ROUTE .MEDSUPPLY 3 February 24, 2022 8:50am October 05, 2022 4:59pm As directed Start: 02-24-2022 Blood-Glucose Sensor (Dexcom G6 Sensor) device Active 0 .ROUTE .MEDSUPPLY 3 February 24, 2022 8:50am As directed Start: 07-23-2021 Blood-Glucose Sensor (Dexcom G6 Sensor) device Active 0 .ROUTE .MEDSUPPLY July 23, 2021 7:51am As directed Start: 07-23-2021 End: 02-24-2022 Blood-Glucose Sensor (Dexcom G6 Sensor) device Discontinued 0 .ROUTE .MEDSUPPLY 3 July 22, 2021 11:00pm February 24, 2022 7:51am As directed Start: 07-23-2021 End: 02-24-2022 Blood-Glucose Sensor (Dexcom G6 Sensor) device Discontinued 0 .ROUTE .MEDSUPPLY July 23, 2021 12:00am February 24, 2022 8:51am As directed Start: 07-23-2021 Blood-Glucose Sensor (Dexcom G6 Sensor) device Active 0 .ROUTE .MEDSUPPLY 3 July 22, 2021 11:00pm As directed Start: 07-23-2021 Blood-Glucose Sensor (Dexcom G6 Sensor) device Active 0 .ROUTE .MEDSUPPLY 3 July 23, 2021 12:00am As directed Blood-Glucose Transmitter (Dexcom G6 Transmitter) device (20 sources) Start: 01-12-2023 End: 12-06-2023 Blood-Glucose Transmitter (Dexcom G6 Transmitter) device Discontinued 0 .ROUTE .MEDSUPPLY 1 January 12, 2023 11:31am December 06, 2023 3:44pm 1 transmitter q 90 days Start: 01-12-2023 Blood-Glucose Transmitter (Dexcom G6 Transmitter) device Active 0 .ROUTE .MEDSUPPLY 1 January 12, 2023 10:31am 1 transmitter q 90 days Start: 01-12-2023 Blood-Glucose Transmitter (Dexcom G6 Transmitter) device Active 0 .ROUTE .MEDSUPPLY 1 January 12, 2023 11:31am 1 transmitter q 90 days Start: 07-23-2021 Blood-Glucose Transmitter (Dexcom G6 Transmitter) device Active 0 .ROUTE .MEDSUPPLY 1 July 23, 2021 7:52am As directed Start: 07-23-2021 End: 01-12-2023 Blood-Glucose Transmitter (D excom G6 Transmitter) device Discontinued 0 .ROUTE .MEDSUPPLY 1 July 22, 2021 11:00pm January 12, 2023 10:31am As directed Start: 07-23-2021 End: 01-12-2023 Blood-Glucose Transmitter (D excom G6 Transmitter) device Discontinued 0 .ROUTE .MEDSUPPLY July 23, 2021 12:00am January 12, 2023 11:31am As directed Start: 07-23-2021 Blood-Glucose Transmitter (Dexcom G6 Transmitter) device Active 0 .ROUTE .MEDSUPPLY July 22, 2021 11:00pm As directed Start: 07-23-2021 Blood-Glucose Transmitter (Dexcom G6 Transmitter) device Active 0 .ROUTE .MEDSUPPLY July 23, 2021 12:00am As directed cephalexin 500 mg oral capsule (10 sources) Cephalosporin Antibacterial Start: 05-11-2022 End: 02-15-2023 Cephalexin 500 mg capsule Discontinued 500 mg PO .6hr May 11, 2022 1:00am February 15, 2023 3:19pm dapagliflozin 10 mg oral tablet (1 source) Sodium-Glucose Cotransporter 2 Inhibitor Start: 08-03-2023 End: 05-02-2024 take 1 tablet by mouth once daily Dapagliflozin Propanediol 10 mg tablet Discontinued 10 mg PO daily August 03, 2023 12:00am May 02, 2024 12:46pm doxycycline hyclate 100 mg oral capsule (19 sources) Tetracycline-class Drug Start: 03-29-2022 End: 04-08-2022 take 1 capsule by mouth twice daily Doxycycline Hyclate 100 mg capsule Discontinued 100 mg PO TWICE A DAY 13 01March 29, 2022 1:00am April 07, 2022 1:00am April 08, 2022 1:05am Start: 02-03-2021 take 100 mg by mouth twice daily Doxycycline Monohydrate Active 100 MG PO TWICE A DAY February 03, 2021 12:00am glimepiride 4 mg oral tablet (20 sources) Sulfonylurea Start: 12-01-2013 End: 09-12-2014 take 1 tablet by mouth twice daily Glimepiride 4 MG tablet Discontinued 4 mg PO TWICE A DAY December 01, 2013 12:00am September 12, 2014 9:16am 3 ml insulin degludec 200 unt/ml pen injector (20 sources) Insulin Analog Start: 05-12-2021 End: 07-28-2021 Insulin Degludec 200 unit/mL (3 mL) insulin pen Discontinued 80 U SC DAILY July 22, 2021 10:56am July 28, 2021 3:30pm 3 ml insulin detemir 100 unt/ml pen injector (20 sources) Insulin Analog Start: 09-12-2014 End: 04-01-2016 Insulin Detemir U-100 (Levemir Flextouch U100 Insulin) 100 UNITS/ML Insuln.Pen Discontinued 46 U SC AT BEDTIME September 12, 2014 9:16am April 01, 2016 1:20pm Start: 09-12-2014 End: 04-01-2016 Insulin Detemir U-100 (Levem ir Flextouch U-100 Insuln) 100 UNITS/ML Insuln.Pen Discontinued 46 UNITS SC AT BEDTIME September 12, 2014 9:16am April 01, 2016 1:20pm Start: 09-11-2014 End: 09-12-2014 Insulin Detemir U-100 (Levem ir (Bkc)) 100 UNITS/ML Insuln.Pen Discontinued 42 U SC AT BEDTIME September 11, 2014 12:00am September 12, 2014 9:16am 3 ml insulin glargine 100 unt/ml / lixisenatide 0.033 mg/ml pen injector (20 sources) Insulin Analog Start: 11-18-2018 End: 05-13-2021 Insulin Glargine-Lixisenatid e 3 ML insulin pen Discontinued 80 U SQ DAILY November 18, 2018 12:00am May 13, 2021 10:09am Start: 11-18-2018 End: 05-13-2021 inject 80 [IU] by subcutaneous injection once daily Insulin Glargine-Lixisenatide Discontinued 80 UNITS SQ DAILY November 18, 2018 12:00am May 13, 2021 10:09am lisinopril 40 mg oral tablet (20 sources) Angiotensin Converting Enzyme Inhibitor Start: 02-03-2021 End: 08-03-2023 take 1 tablet by mouth once daily Lisinopril 40 mg Tablet Discontinued 40 mg PO DAILY February 03, 2021 1:00am August 03, 2023 4:40pm methylPREDNISolone 4 mg oral tablet (10 sources) Corticosteroid Start: 03-29-2022 End: 04-04-2022 take 1 tablet by mouth once Methylprednisolone (Medrol (Jaime)) 4 mg tablets,dose pack Discontinued 4 mg PO per package directions 21 March 29, 2022 1:00am April 03, 2022 1:00am April 04, 2022 1:04am ondansetron 4 mg disintegrating oral tablet (13 sources) Serotonin-3 Receptor Antagonist Start: 02-03-2022 End: 02-15-2023 take 1 tablet by mouth every six hours as needed for nausea and vomiting Ondansetron 4 mg tablet,disintegratin g Discontinued 4 mg PO EVERY 6 HOURS as needed for nausea and vomiting February 03, 2022 1:00am February 15, 2023 3:18pm pantoprazole 40 mg delayed release oral tablet (10 sources) Proton Pump Inhibitor Start: 02-15-2023 End: 05-16-2024 take 1 tablet by mouth at bedtime Pantoprazole 40 mg tablet,delayed release (DR/EC) Discontinued 40 mg PO AT BEDTIME July 19, 2023 7:22am May 16, 2024 2:13pm pioglitazone 30 mg oral tablet (20 sources) Peroxisome Proliferator Receptor alpha Agonist, Peroxisome Proliferator Receptor gamma Agonist, Thiazolidinedione Start: 02-03-2021 End: 05-13-2021 take 1 tablet by mouth once daily Pioglitazone 30 mg Tablet Discontinued 30 mg PO DAILY February 03, 2021 1:00am May 13, 2021 10:09am sulfamethoxazole 800 mg / trimethoprim 160 mg oral tablet (10 sources) Dihydrofolate Reductase Inhibitor Antibacterial, Sulfonamide Antimicrobial Start: 05-11-2022 End: 02-15-2023 Sulfamethoxazole-Tri methoprim 800-160 mg tablet Discontinued 1 {tbl} PO DAILY May 11, 2022 1:00am February 15, 2023 3:18pm remote computer terminal operator Start: 05-11-2022 End: 02-15-2023 take 1 tablet by mouth once daily Sulfamethoxazole-Trimethoprim Discontinu ed 1 TABLET PO DAILY May 11, 2022 1:00am February 15, 2023 3:18pm remote computer terminal operator valACYclovir 1000 mg oral tablet (10 sources) Herpesvirus Nucleoside Analog DNA Polymerase Inhibitor, Herpes Simplex Virus Nucleoside Analog DNA Polymerase Inhibitor, Herpes Zoster Virus Nucleoside Analog DNA Polymerase Inhibitor Start: 03-29-2022 End: 04-05-2022 Valacyclovir 1 gram tablet Discontinued 1000 mg PO THREE TIMES A DAY 14 10March 29, 2022 1:00am April 04, 2022 1:00am April 05, 2022 1:04am Start: 03-29-2022 End: 04-05-2022 take 1000 mg by mouth three times daily Valacyclovir Discontinued 1000 MG PO THREE TIMES A DAY 14 10March 29, 2022 1:00am April 05, 2022 1:04am Problems Active Problems Problem Classification Problem Date Documented Da te Episodic/Chronic Abdominal hernia (3 sources) Incisional hernia; Translations: [Incisional hernia without obstruction or gangrene] Onset: 05-10-2024 2024 Episodic Abdominal pain (20 sources) Right lower quadrant pain; Translations: [Right lower quadrant pain] Episodic Asthma (20 sources) Asthma; Translations: [Unspecified asthma, uncomplicated] 11-18-2018 Chronic Chronic kidney disease (11 sources) Chronic kidney disease stage 3; Translations: [Stage 3 chronic kidney disease] 08-17-2022 Chronic Deficiency and other anemia (3 sources) Anemia, unspecified; Translations: [Anemia, unspecified] 02-15-2023 Episodic Diabetes mellitus with complications (1 source) Type 2 diabetes mellitus with hyperglycemia; Translations: [Type 2 diabetes mellitus with hyperglycemia] Onset: 07-09-2024 Chronic Diabetes mellitus without complication (20 sources) Diabetes mellitus; Translations: [Type 2 diabetes mellitus without complications] Onset: 05-02-2024 Chronic Disorders of lipid metabolism (20 sources) Hypercholesterolemi a; Translations: [Pure hypercholesterolemi a, unspecified] Chronic Essential hypertension (20 sources) Hypertensive disorder; Translations: [Essential (primary) hypertension] Chronic Fever of unknown origin (16 sources) Fever; Translations: [Fever, unspecified] Episodic Genitourinary symptoms and ill-defined conditions (18 sources) History of chronic renal impairment; Translations: [Personal history of other diseases of urinary system] Episodic Headache; including migraine (20 sources) Headache; Translations: [Headache] 11-19-2018 Episodic Malaise and fatigue (9 sources) Fatigue; Translations: [Other fatigue] 03-06-2023 Episodic Mood disorders (9 sources) Depressive disorder; Translations: [Depression] 03-06-2023 Chronic Nausea and vomiting (20 sources) Nausea; Translations: [Nausea] Episodic Nutritional deficiencies (20 sources) Vitamin D deficiency; Translations: [Vitamin D deficiency, unspecified] Chronic Other aftercare (1 source) remote computer terminal operator (current) use of insulin; Translations: [retirement (current) use of insulin] Onset: 05-02-2024 Episodic Other diseases of veins and lymphatics (20 sources) Disorder of soft tissue of lower limb; Translations: [Lymphangitis] 02-11-2021 Chronic Other injuries and conditions due to external causes (13 sources) Systemic inflammatory response syndrome; Translations: [Systemic inflammatory response syndrome (SIRS) of non-infectious origin without acute organ dysfunction] 02-13-2022 Episodic Other injuries and conditions due to external causes (2 sources) Systemic inflammatory response syndrome (SIRS) of non-infectious origin without acute organ dysfunction; Translations: [Systemic inflammatory response syndrome, unspecified] Episodic Other nervous system disorders (20 sources) Acroparesthesia; Translations: [Paresthesia of skin] 06-09-2021 Episodic Other nervous system disorders (7 sources) Paresthesia of skin; Translations: [Disturbance of skin sensation] Episodic Other nutritional; endocrine; and metabolic disorders (20 sources) Body mass index 40+ - severely obese; Translations: [Morbid (severe) obesity due to excess calories] 11-24-2021 Chronic Other nutritional; endocrine; and metabolic disorders (9 sources) Morbid (severe) obesity due to excess calories; Translations: [Morbid obesity] Chronic Other nutritional; endocrine; and metabolic disorders (13 sources) Body mass index 30+ - obesity; Translations: [Obesity, unspecified] 11-24-2021 Chronic Other nutritional; endocrine; and metabolic disorders (14 sources) Obesity, unspecified; Translations: [Obesity, unspecified] Chronic Other nutritional; endocrine; and metabolic disorders (10 sources) Obesity; Translations: [Obesity, unspecified] 08-17-2022 Chronic Other nutritional; endocrine; and metabolic disorders (13 sources) H/O: diabetes mellitus; Translations: [Personal history of other endocrine, nutritional and metabolic disease] 02-03-2022 Episodic Other nutritional; endocrine; and metabolic disorders (3 sources) Personal history of other endocrine, nutritional and metabolic disease; Translations: [Personal history of other endocrine, metabolic, and immunity disorders] Episodic Other upper respiratory infections (11 sources) Acute pharyngitis; Translations: [Acute pharyngitis, unspecified] 03-25-2022 Episodic Skin and subcutaneous tissue infections (20 sources) Cellulitis of lower limb; Translations: [Cellulitis of right lower limb] 02-11-2021 Episodic Thyroid disorders (20 sources) Subclinical hypothyroidism; Translations: [Other specified hypothyroidism] Onset: 01-11-2024 Chronic Viral infection (11 sources) Herpes zoster; Translations: [Zoster without complications] 03-29-2022 Episodic Past or Other Problems Problem Classification Problem Date Documented Da te Episodic/Chronic Other lower respiratory disease (1 source) Wheezing; Translations: [Wheezing] Onset: 04-04-2024 Episodic Other non-traumatic joint disorders (1 source) Pain in right hip; Translations: [Pain in right hip] Onset: 07-07-2023 Episodic Other screening for suspected conditions (not mental disorders or infectious disease) (1 source) Encounter for screening mammogram for malignant neoplasm of breast; Translations: [Encounter for screening mammogram for malignant neoplasm of breast] Onset: 02-14-2024 Episodic Residual codes; unclassified (1 source) Chills (without fever); Translations: [Chills (without fever)] Onset: 04-04-2024 Episodic Results Test Name Value Interpretation Reference Range Facility Absolute neutrophil countOrd ered By: Phu Espinoza on 07-03-2024 Neutrophils (Bld) [#/Vol] 4.9 10*3/uL 2.0-7.7 [facility] Anion gap in Serum or Plasma Ordered By: Phu Espinoza on 07-03-2024 Anion gap [Moles/Vol] 12 mmol/L - [facility] BUN/creatinine ratioOrdered By: Phu Espinoza on 07-03-2024 Urea nitrogen/Creatinine [Mass ratio] 19.0 mg/mg - [facility] Basophil percentageOrdered B y: Phu Espinoza on 07-03-2024 Basophils/100 WBC (Bld) 1.0 % 0-[address] [facility] Bilirubin, totalOrdered By: Phu Espinoza on 07-03-2024 Bilirubin [Mass/Vol] 0.41 mg/dL 0.00-1.30 [facility] CBC W/Diff, Automatedon Absolute Lymph 2.19 X10 3/uL Normal 0.83-4.51 [facility] Comment on above: Performed By: #### M 100.678 #### [facility] [address] [place], [address] Absolute Neut 4.9 X10 3/uL Normal 2.0-7.7 [facility] Comment on above: Performed By: #### M 100.678 #### [facility] [address] [place], [address] Basophils/100 WBC (Bld) 1.0 % Normal 0-[address] [facility] Comment on above: Performed By: #### M 100.678 #### [facility] [address] [place], [address] Eosinophils/100 WBC (Bld) 1.8 % Normal 0-5 [facility] Comment on above: Performed By: #### M 100.678 #### [facility] [address] [place], [address] Erythrocyte distribution width (RBC) [Ratio] 15.5 % High 11.6-14.6 [facility] Comment on above: Performed By: #### M 100.678 #### [facility] [address] [place], [address] Hematocrit (Bld) [Volume fraction] 35.7 % Low 37-47 [facility] Comment on above: Performed By: #### M 100.678 #### [facility] [address] [place], [address] Hemoglobin (Bld) [Mass/Vol] 10.8 g/dL Low 12.0-15.0 [facility] Comment on above: Performed By: #### M 100.678 #### [facility] [address] [place], [address] IG% 0.500 Normal 0.0-0.9 [facility] Comment on above: Result Comment: IG% - Immature Granulocytes (promyelocytes, myelocytes and metamyelocytes) > 1% indicates that a LEFT SHIFT is Present. Performed By: #### M 100.678 #### [facility] [address] [place], [address] Lymphocytes/100 WBC (Bld) 26.7 % Normal 19-41 [facility] Comment on above: Performed By: #### M 100.678 #### [facility] [address] [place], [address] MCH (RBC) [Entitic mass] 24.2 pg Low 27.0-32.0 [facility] Comment on above: Performed By: #### M 100.678 #### [facility] [address] [place], [address] MCHC (RBC) [Mass/Vol] 30.3 g/dL Low 32-36 [facility] Comment on above: Performed By: #### M 100.678 #### [facility] [address] [place], [address] MCV (RBC) [Entitic vol] 80.0 fL Low 81-[address] [facility] Comment on above: Performed By: #### M 100.678 #### [facility] [address] [place], [address] Monocytes/100 WBC (Bld) 9.9 % Normal 0-10 [facility] Comment on above: Performed By: #### M 100.678 #### [facility] [address] [place], [address] Neutrophils/100 WBC (Bld) 60.1 % Normal 47-70 [facility] Comment on above: Performed By: #### M 100.678 #### [facility] [address] [place], [address] Nucleated RBC (Bld) [#/Vol] 0 10*3/uL Normal 0-5 [facility] Comment on above: Performed By: #### M 100.678 #### [facility] [address] [place], [address] Platelet mean volume (Bld) [Entitic vol] 9.8 fL Normal 6.2-12.0 [facility] Comment on above: Performed By: #### M 100.678 #### [facility] [address] [place], [address] Platelets (Bld) [#/Vol] 282 10*3/uL Normal 150-450 [facility] Comment on above: Performed By: #### M 100.678 #### [facility] [address] [place], [address] RBC (Bld) [#/Vol] 4.46 10*6/uL Normal 4.2-5.4 [facility] Comment on above: Performed By: #### M 100.678 #### [facility] [address] [place], [address] RDW SD 44.4 fl High 35.1-43.9 [facility] Comment on above: Performed By: #### M 100.678 #### [facility] [address] [place], [address] WBC (Bld) [#/Vol] 8.2 10*3/uL Normal 4.4-11.0 [facility] Comment on above: Performed By: #### M 100.678 #### [facility] [address] [place], [place], [address] Carbon dioxide, total [Moles /volume] in Central venous bloodOrdered By: Phu Espinoza on 07-03-2024 CO2 [Moles/Vol] 28.2 mmol/L 21.0-32.0 [facility] Chloride assayOrdered By: Sloan Espinoza on 07-03-2024 Chloride [Moles/Vol] 102 mmol/L 98-108 [facility] Comprehensive Metabolic Prof ilon 07-03-2024 Albumin [Mass/Vol] 4.2 g/dL Normal 3.5-5.0 [facility] Comment on above: Performed By: #### M 100.678 #### [facility] [address] [place], [address] Albumin/Globulin [Mass ratio] 1.5 {ratio} Normal 0.9-2.4 [facility] Comment on above: Performed By: #### M 100.678 #### [facility] [address] [place], [address] ALK PHOS 50 U/L Normal 35-104 [facility] Comment on above: Performed By: #### M 100.678 #### [facility] [address] [place], [address] ALT [Catalytic activity/Vol] 62 U/L High <=34 [facility] Comment on above: Performed By: #### M 100.678 #### [facility] [address] [place], [address] AST [Catalytic activity/Vol] 67 U/L High <=31 [facility] Comment on above: Performed By: #### M 100.678 #### [facility] [address] [place], [address] Bilirubin [Mass/Vol] 0.41 mg/dL Normal 0.00-1.30 [facility] Comment on above: Performed By: #### M 100.678 #### [facility] [address] [place], [address] BUN/CRE 19.0 RATIO Normal 10-20 [facility] Comment on above: Performed By: #### M 100.678 #### [facility] [address] [place], [address] Calcium [Mass/Vol] 9.4 mg/dL Normal 7.6-11.0 [facility] Comment on above: Performed By: #### M 100.678 #### [facility] [address] [place], [address] Chloride [Moles/Vol] 102 mmol/L Normal 98-108 [facility] Comment on above: Performed By: #### M 100.678 #### [facility] [address] [place], [address] CO2 [Moles/Vol] 28.2 mmol/L Normal 21.0-32.0 [facility] Comment on above: Performed By: #### M 100.678 #### [facility] [address] [place], [address] Creatinine [Mass/Vol] 1.00 mg/dL Normal 0.70-1.20 [facility] Comment on above: Performed By: #### M 100.678 #### [facility] [address] [place], [address] GAP 12 Normal 5-15 [facility] Comment on above: Performed By: #### M 100.678 #### [facility] [address] [place], [address] GFR/1.73 sq M.predicted among non-blacks MDRD (S/P/Bld) [Vol rate/Area] 67 mL/min/{1.73_m2} Normal >60 [facility] Comment on above: Result Comment: mL/m in/1.73m2 CKD-EPI Creatinine Equation (2020) Performed By: #### M 100.678 #### [facility] [address] [place], [address] Globulin (S) [Mass/Vol] 2.8 g/dL Normal 2.2-4.2 [facility] Comment on above: Performed By: #### M 100.678 #### [facility] [address] [place], [address] Glucose [Mass/Vol] 133 mg/dL High 70-99 [facility] Comment on above: Performed By: #### M 100.678 #### [facility] [address] [place], [address] Potassium [Moles/Vol] 4.3 mmol/L Normal 3.3-5.1 [facility] Comment on above: Performed By: #### M 100.678 #### [facility] [address] [place], [address] Sodium [Moles/Vol] 142 mmol/L Normal 133-145 [facility] Comment on above: Performed By: #### M 100.678 #### [facility] [address] [place], [place], [address] T PROT 7.0 g/dL Normal 5.9-8.4 [facility] Comment on above: Performed By: #### M 100.678 #### [facility] [address] [place], [place], [address] Urea nitrogen [Mass/Vol] 19 mg/dL Normal 4-19 [facility] Comment on above: Performed By: #### M 100.678 #### [facility] [address] [place], [place], [address] Eosinophil percentageOrdered By: Phu Espinoza on 07-03-2024 Eosinophils/100 WBC (Bld) 1.8 % 0-5 [facility] Erythrocyte distribution wid th (RBC) [Ratio]Ordered By: Phu Espinoza on 07-03-2024 Erythrocyte distribution width (RBC) [Entitic vol] 44.4 fL High 35.1-43.9 [facility] Erythrocyte distribution wid th ratioOrdered By: Phu Espinoza 07-03-2024 Erythrocyte distribution width (RBC) [Ratio] 15.5 % High 11.6-14.6 [facility] GFR/1.73 sq M.predicted sanchez g non-blacks MDRD (S/P/Bld) [Vol rate/Area]Ordered By: Phu Espinoza 07-03-2024 Estimated GFR (MDRD) Non-Af Amer 67 >60 [facility] Comment on above: mL/min/1.73m2 CKD-EP I Creatinine Equation (2020) Hematocrit Auto (Bld) [Volum e fraction]Ordered By: Phu Espinoza 07-03-2024 Hematocrit (Bld) [Volume fraction] 35.7 % Low 37-47 [facility] Hemoglobin measurementOrdere d By: Phu Espinoza 07-03-2024 Hemoglobin (Bld) [Mass/Vol] 10.8 g/dL Low 12.0-15.0 [facility] Immature granulocytes/100 WB C Auto (Bld)Ordered By: Phu Espinoza on 07-03-2024 Immature granulocytes/100 WBC (Bld) 0.500 % 0.0-0.9 [facility] Comment on above: IG% - Immature Granu locytes (promyelocytes, myelocytes and metamyelocytes) > 1% indicates that a LEFT SHIFT is Present. Laboratory - Chemistry and C hemistry - challengeOrdered By: Phu Espinoza on 07-03-2024 AST [Catalytic activity/Vol] 67 U/L High <32 [facility] Lymphocytes Auto (Unsp spec) [#/Vol]Ordered By: Phu Espinoza on 07-03-2024 Lymphocytes (Bld) [#/Vol] 2.19 10*3/uL 0.83-4.5 1 [facility] Lymphocytes/100 WBC Auto (Un sp spec)Ordered By: Phu Espinoza on 07-03-2024 Lymphocytes/100 WBC (Bld) 26.7 % 19-41 [facility] MCV (mean corpuscular volume ) determinationOrdered By: Phu Espinoza on 07-03-2024 MCV (RBC) [Entitic vol] 80.0 fL Low 81-[address] [facility] Mean corpuscular hemoglobin (MCH) determinationOrdered By: Phu Espinoza on 07-03-2024 MCH (RBC) [Entitic mass] 24.2 pg Low 27.0-32.0 [facility] Mean corpuscular hemoglobin concentration (MCHC) determinationOrdered By: Phu Espinoza on 07-03-2024 MCHC (RBC) [Mass/Vol] 30.3 g/dL Low 32-36 [facility] Mean platelet volume determi nationOrdered By: Phu Espinoza on 07-03-2024 Platelet mean volume (Bld) [Entitic vol] 9.8 fL 6.2-12.0 [facility] Monocyte percentageOrdered B y: Phu Espinoza on 07-03-2024 Monocytes/100 WBC (Bld) 9.9 % 0-[address] [facility] Neutrophil percentageOrdered By: Phu Espinoza on 07-03-2024 Neutrophils/100 WBC (Bld) 60.1 % 47-70 [facility] Nucleated red blood cell per centageOrdered By: Phu Espinoza on 07-03-2024 Nucleated RBC/100 WBC (Bld) [Ratio] 0 % 0-5 [facility] Platelet countOrdered By: Sloan Espinoza on 07-03-2024 Platelets (Bld) [#/Vol] 282 10*3/uL 150-450 [facility] Potassium (Unsp spec) [Mass/ Vol]Ordered By: Phu Espinoza on 07-03-2024 Potassium [Moles/Vol] 4.3 mmol/L 3.3-5.1 [facility] RBC Auto (Bld) [#/Vol]Ordere d By: Phu Espinoza on 07-03-2024 RBC (Bld) [#/Vol] 4.46 10*6/uL 4.2-5.4 [facility] Serum creatinine measurement (mass/volume)Ordered By: Phu Espinoza on 07-03-2024 Creatinine [Mass/Vol] 1.00 mg/dL 0.70-1.20 [facility] Serum globulin measurementOr dered By: Phu Espinoza 07-03-2024 Globulin (S) [Mass/Vol] 2.8 g/dL 2.2-4.2 [facility] Serum glucose measurement (m ass/volume)Ordered By: Phu Espinoza on 07-03-2024 Glucose [Mass/Vol] 133 mg/dL High 70-99 [facility] Serum or plasma alanine tobar otransferase (ALT) measurementOrdered By: Phu Espinoza 07-03-2024 ALT [Catalytic activity/Vol] 62 U/L High <35 [facility] Serum or plasma albumin thiago urement (mass/volume)Ordered By: Phu Espinoza 07-03-2024 Albumin [Mass/Vol] 4.2 g/dL 3.5-5.0 [facility] Serum or plasma albumin/glob ulin mass ratioOrdered By: Phu Espinoza 07-03-2024 Albumin/Globulin [Mass ratio] 1.5 {ratio} 0.9-2.4 [facility] Serum or plasma alkaline meg sphatase measurementOrdered By: Phu Espinoza 07-03-2024 ALP [Catalytic activity/Vol] 50 U/L 35-104 [facility] Serum or plasma calcium thiago urement (mass/volume)Ordered By: Phu Espinoza 07-03-2024 Calcium [Mass/Vol] 9.4 mg/dL 7.6-11.0 [facility] Serum or plasma urea nitroge n measurement (mass/volume)Ordered By: Phu Espinoza on 07-03-2024 Urea nitrogen [Mass/Vol] 19 mg/dL 4-19 [facility] Sodium levelOrdered By: Phu Espinoza on 07-03-2024 Sodium [Moles/Vol] 142 mmol/L 133-145 [facility] TSH DL <= 0.005 mIU/L QnOrde red By: Phu Espinoza on 07-03-2024 Thyroid Stimulating Hormone (TSH) 0.593 uIU/mL 0.300-4.200 [facility] Thyroid Stim Hormone (TSH)on 07-03-2024 TSH 0.593 uIU/mL Normal 0.300-4.200 [facility] Comment on above: Performed By: #### M 100.678 #### [facility] [place], [address] Total proteinOrdered By: Phu Espinoza on 07-03-2024 Protein [Mass/Vol] 7.0 g/dL 5.9-8.4 [facility] White blood cell (WBC) count Ordered By: Phu Espinoza on 07-03-2024 WBC (Bld) [#/Vol] 8.2 10*3/uL 4.4-11.0 [facility] Direct serum free thyroxine (FT4) measurementOrdered By: Massiel Gibbons on 05-02-2024 Free T4 [Mass/Vol] 1.05 ng/dL 0.76-1.46 [facility] Endocrinology Visit Reporton 05-02-2024 Endocrinology Visit Report [facility] [address] [place], [place] [address] OFFICE VISIT Date of Service: 05/02/24 MR#: [id number] Acct: [id number] Name: ARLEN NGUYEN Hattie Rep #: [id number] : 1970 Provider: ADELITA martin Age/Sex: 54/F Location: [facility] Status: Signed Intake Vital Signs 01/31/24 11:40 03/22/24 13:42 05/02/24 11:40 Height 5 ft 7 in 5 ft 7 in 5 ft 7 in Weight: 290 lb 4 oz BMI 45.4 BP 134/81 H Blood Pressure Location Rt brachial Pulse 75 Pulse Source Monitor Pulse Oximetry (%) 97 Oxygen Delivery Method room air Intake Visit Reasons: 3 M FU Chief Complaint: f/u diabetes and hypothyroid Is patient in pain?: No Allergies nut - unspecified Allergy (Verified 05/02/24 11:45) Anaphylaxis peanut Allergy (Verified 05/02/24 11:45) Anaphylaxis shellfish derived Allergy (Verified 05/02/24 11:45) Anaphylaxis codeine Adverse Reaction (Verified 05/02/24 11:45) Rash prednisone Adverse Reaction (Verified 05/02/24 11:45) Other sertraline HCl (From Zoloft) Adverse Reaction (Verified 05/02/24 11:45) Other Medications ???Medication ???Instructions ???Recorded ???Confirmed ???Type albuterol sulfate 90 mcg/actuation 1 puff inhalation Q4H PRN PRN 05/02/24 History aerosol inhaler (Ventolin HFA) Shortness Of Breath zolpidem 10 mg tablet (Ambien) 5 mg PO QHS 12/01/13 05/02/24 Hist ory epinephrine 0.3 mg/0.3 mL 0.3 mg (0.3 mL) IJ X1 PRN 02/03/19 05/02/24 Rx injection, auto-injector Anaphylaxis ##1 atorvastatin 40 mg tablet 40 mg PO DAILY 02/03/21 05/02/24 H istory cetirizine 10 mg tablet 10 mg PO DAILY 02/03/21 05/02/24 H istory valsartan 320 mg tablet 320 mg PO QHS 03/07/23 05/02/24 Hi story pantoprazole 40 mg tablet,delayed 40 mg PO QHS #90 TABLETS 07/19/23 05/02/24 Rx release metformin 1,000 mg tablet 1,000 mg PO BID 11/01/23 05/02/24 History paroxetine HCl 40 mg tablet 40 mg PO QDAY 11/01/23 05/02/24 Hi story empagliflozin 25 mg tablet 25 mg PO QDAY 05/02/24 05/02/24 Hi story (Jardiance) insulin lispro 200 unit/mL (3 mL) 170 unit (0.85 mL) subcut ONCE 05/02/24 Rx subcutaneous pen (Humalog KwikPen #76.5 mL U-200 Insulin) levothyroxine 125 mcg tablet 125 mcg PO QDAY #90 tabs 05/02/24 Rx PFSH Medical History Post-menopausal Wears contact lenses Anxiety Thyroid disease Fatty liver Hepatitis History of renal disease GERD (gastroesophageal reflux disease) Non-smoker Shortness of breath on exertion MRSA (methicillin resistant Staphylococcus aureus) Acute pharyngitis, unspecified Kidney disease Insulin pump in place SIRS (systemic inflammatory response syndrome) Hypothyroidism Tonsillectomy planned delivery delivered Neuropathy Hives High blood triglycerides Hepatitis A Hearing problem Gall stones Carpal tunnel syndrome Arthritis Allergies Depression Psoriatic arthritis High cholesterol Hypertension Migraines Morbid obesity with BMI of 45.0-49.9, adult Surgical History History of endometrial ablation History of removal of ovarian cyst History of cholecystectomy Family History Other Alcohol abuse Anxiety Arthritis Asthma Bleeding disorder Bowel disease Depression Diabetes Hypertension Severe allergy Social History household members: none Smoking Status: Never smoker alcohol intake: current alcohol intake frequency: 0-2 drinks per day substance use type: does not use what type of physical activity do you participate in: walking HPI HPI Chief Complaint: f/u diabetes and hypothyroid Details: ARLEN NGUYEN, is a 54 F who presents to the office today for evaluation and management of diabetes and hypothyroid. A1C today is 6.7%, improved from 01/31/24 at 7.1%. She has lost 2 lbs since that time. Currently using Medtronic 780g insulin pump with Guardian CGM. She is taking metformin 1 gm BID with food and SGLT-2. Insulin pump downloaded and reviewed- TIR 95%. She is under reporting carbohydrates, she is having occasional post meal elevations. She is using a significant amount of insulin via automode. Denies any significant episodes of hypoglycemia that have required assistance from others. She has been more mindful of carb counting. At her last appt 01/31/24 levothyroxine was increased from 50 mcg to weight based at 125 mcg once daily. She is due for repeat labs. BP today is controlled. Currently taking valsartan 320 mg once daily. She has microalbuminuria. She takes a daily statin. Denies any acute concerns (more content not included)... Normal [facility] - Hematology and Cell countsOrdered By: Massiel Gibbons on 05-02-2024 HbA1c (Bld) [Mass fraction] 6.7 % High 4.2-6.3 [facility] T4 Free Directon 05-02-2024 T4 FREE DIRECT 1.05 ng/dL Normal 0.76-1.46 [facility] Comment on above: Performed By: #### M 100.678 #### [facility] [address] [place], [address] TSH QnOrdered By: Massiel martin on 05-02-2024 Thyroid Stimulating Hormone (TSH) 2.130 uIU/mL 0.358-3.740 [facility] Thyroid Stim Hormone (TSH)on 05-02-2024 TSH 2.130 uIU/mL Normal 0.358-3.740 [facility] Comment on above: Performed By: #### M 100.678 #### [facility] [address] [place], [address] Abdomen without IV Contrasto n 04-19-2024 Abdomen without IV Contrast [facility] [address] [place] [address] Abdomen without IV Contrast MR#: [id number] Acct: [id number] Name: ARLEN NGUYEN Rep #: [id number] : 1970 F 54 From: Roverto Andujar PCP: Dr. Phu Espinoza MD Status: REG CLI Study: Abdomen without IV Contrast Date of Exam: 03/28 07/19 Exam# [id number] Ordering Dr: Jodi Agee MD -[id number] STUDY: CT Abdomen W/O Contrast Injection 04/21/2024 3:58 PM REASON FOR EXAM: Female, 54 years old. Abdominal pain umbilical hernia Individualized dose optimization techniques were used for this CT. COMPARISON: None. TECHNIQUE: CT Abdomen W/O Contrast Injection FINDINGS: There are atherosclerotic calcifications of visualized coronary arteries. The visualized portions of the heart are within normal limits. Normal liver. There are surgical clips in the gallbladder fossa consistent with a prior cholecystectomy. Normal spleen. Normal pancreas. Normal bilateral adrenal glands. No acute findings of the right kidney. No acute findings of the left kidney. Normal visualized stomach. Normal small intestine. Stool throughout the colon. The appendix is visualized and appears normal. There are calcifications of the abdominal aorta. This is consistent for atherosclerotic disease. There is NO abdominal aortic aneurysm. Vascular workup can be obtained based on clinical correlation. Normal inferior vena cava. Subcentimeter mesenteric lymph nodes. Normal urinary bladder. There is atrophy of the uterus. There is a very small umbilical hernia containing fat. There are diffuse degenerative changes of the visualized lumbar spine. CT/Abdomen without IV Contrast IMPRESSION: (NOT LISTED IN ORDER OF SIGNIFICANCE) There is a very small umbilical hernia containing fat. Other findings as above. Electronically Signed: Roverto Beebe MD at 16:01 [facility] Reading Location ID and State: [facility] / [place] , Service support , CC: Dr. Phu Espinoza MD; Dr. Jodi Agee MD Clip Loading Machine Feeder: Signed Normal [facility] Surgery Visit Reporton 03-22 Surgery Visit Report [facility] [address] [place] [address] OFFICE VISIT Date of Service: 03/22/24 MR#: [id number] Acct: [id number] Name: ARLEN NGUYEN Hattie Rep #: [id number] : 1970 Provider: Dr. Jodi back MD Age/Sex: 53/F Location: [facility] Status: Signed Intake Vital Signs 01/31/24 11:40 03/22/24 13:42 Height 5 ft 7 in 5 ft 7 in Weight: 290 lb BMI 45.4 BP 122/79 H Blood Pressure Location Rt brachial Position Sitting Respiration 18 Pulse 85 Pulse Source Monitor Temp 97.3 F L Temp Source Temporal Pulse Oximetry (%) 96 Oxygen Delivery Method room air Intake Visit Reasons: UMBICAL HERNIA Chief Complaint: umbilical hernia Is patient in pain?: No Allergies nut - unspecified Allergy (Verified 03/22/24 13:43) Anaphylaxis peanut Allergy (Verified 03/22/24 13:43) Anaphylaxis shellfish derived Allergy (Verified 03/22/24 13:43) Anaphylaxis codeine Adverse Reaction (Verified 03/22/24 13:43) Rash prednisone Adverse Reaction (Verified 03/22/24 13:43) Other sertraline HCl (From Zoloft) Adverse Reaction (Verified 03/22/24 13:43) Other Medications ???Medication ???Instructions ???Recorded ???Confirmed ???Type albuterol sulfate 90 mcg/actuation 1 puff inhalation Q4H PRN PRN 12/01/13 03/22/24 History aerosol inhaler (Ventolin HFA) Shortness Of Breath zolpidem 10 mg tablet (Ambien) 5 mg PO QHS 12/01/13 03/22/24 History epinephrine 0.3 mg/0.3 mL 0.3 mg (0.3 mL) IJ X1 PRN 02/03/19 03/22/24 Rx injection, auto-injector Anaphylaxis ##1 atorvastatin 40 mg tablet 40 mg PO DAILY 02/03/21 03/22/24 History cetirizine 10 mg tablet 10 mg PO DAILY 02/03/21 03/22/24 History valsartan 320 mg tablet 320 mg PO QHS 03/07/23 03/22/24 History pantoprazole 40 mg tablet,delayed 40 mg PO QHS #90 TABLETS 07/19/23 03/22/24 Rx release dapagliflozin propanediol 10 mg 10 mg PO QDAY 08/03/23 03/22/24 History tablet metformin 1,000 mg tablet 1,000 mg PO BID 11/01/23 03/22/24 History paroxetine HCl 40 mg tablet 40 mg PO QDAY 11/01/23 03/22/24 History insulin lispro 200 unit/mL (3 mL) 170 unit (0.85 mL) subcut ONCE 12/06/23 03/22/24 Rx subcutaneous pen (Humalog KwikPen #76.5 mL U-200 Insulin) levothyroxine 125 mcg tablet 125 mcg PO QDAY #90 tabs 01/31/24 03/22/24 Rx PFSH Medical History (Updated 03/24/24 @ 14:[address] Jodi Agee MD) Post-menopausal Wears contact lenses Anxiety Thyroid disease Fatty liver Hepatitis History of renal disease GERD (gastroesophageal reflux disease) Non-smoker Shortness of breath on exertion MRSA (methicillin resistant Staphylococcus aureus) Acute pharyngitis, unspecified Kidney disease Insulin pump in place SIRS (systemic inflammatory response syndrome) Hypothyroidism Tonsillectomy planned delivery delivered Neuropathy Hives High blood triglycerides Hepatitis A Hearing problem Gall stones Carpal tunnel syndrome Arthritis Allergies Depression Psoriatic arthritis High cholesterol Hypertension Migraines Morbid obesity with BMI of 45.0-49.9, adult Surgical History History of endometrial ablation History of removal of ovarian cyst History of cholecystectomy Family History Other Alcohol abuse Anxiety Arthritis Asthma Bleeding disorder Bowel disease Depression Diabetes Hypertension Severe allergy Social History household members: none Smoking Status: Never smoker alcohol intake: current alcohol intake frequency: 0-2 drinks per day substance use type: does not use what type of physical activity do you participate in: walking HPI HPI HPI: 54-year-old female presents due to umbilical hernia. Patient states since January she has had a cough that she is still dealing with. Patient is on her currently second Medrol dose pack. Patient states she is able to push some of it back in but does not feel like it goes completely back in that her umbilicus. Patient did have a previous ???vertica l inferior midline???near this site as well as her lap lalo. ROS General General: Yes weight change and fatigue; No appetite, colon cancer, breast cancer or weakness HEENT HEENT: No difficulty swallowing, eye injury, eye surgery, swollen glands or hoarseness Endo Endocrine: Yes diabetes mellitus; No thyroid disease, thyroid cancer, Hair loss, heat intolerance or cold intolerance Skin Skin: No rash or changing moles Musc Musculoskeletal: Yes arthritis; No back problems, rheumatoid arthritis, gout or joint pain Cardio Cardiovascular: No murmur, pacemaker, heart disease, atrial fi (more content not included)... Normal [facility] Chest PA and Lateralon 03-[address] L[address] [facility] Imaging Services [address] [place] [address] Chest PA and Lateral MR#: [id number] Acct: [id number] Name: ARLEN NGUYEN Rep #: [id number] : 1970 F 53 From: Eduard Andujar PCP: Dr. Phu Espinoza MD Status: REG [facility] Study: Chest PA and Lateral Date of Exam: 03/04/24 Exam# [id number] Ordering Dr: Phu Espinoza MD -[id number] INDICATION: WHEEZING EXAMINATION/TECHNIQ UE: X-RAY - XR Chest 2 Views COMPARISON: Prior study dated: 03/03/2021 FINDINGS: LINES/DEVICES: None. LUNGS: No consolidation, edema or effusion. No pneumothorax. MEDIASTINUM AND CARDIOVASCULAR STRUCTURES: Cardiac silhouette not enlarged. Central airways and mediastinal contour are unremarkable. BONES AND SOFT TISSUES: No acute osseous changes. RAD/Chest PA and Lateral IMPRESSION: No radiographic evidence of acute cardiopulmonary disease. Electronically Signed: Eduard Berrios MD at 20:04 EST , CC: Dr. Phu Espinoza MD Clip Loading Machine Feeder: Signed [facility] M100.678on 03-04-2024 M100.678 Pending SARS-CoV-2 (COVID 19) Negative INFLUENZA A Negative INFLUENZA B Negative RSV PCR Negative Normal [facility] Comment on above: Performed By: #### M 100.678 #### [facility] [address] [place], [address] T4 Free Directon 02-16-2024 T4 FREE DIRECT 1.01 ng/dL Normal 0.76-1.46 [facility] Comment on above: Performed By: #### L 506.0400, L511.9520 #### [facility] [address] [place], [place], [address] Thyroid Stim Hormone (TSH)on 02-16-2024 TSH 2.020 uIU/mL Normal 0.358-3.740 [facility] Comment on above: Performed By: #### L 506.0400, L519.9520 #### [facility] [address] [place], [address] Endocrinology Visit Reporton 01-31-2024 Endocrinology Visit Report [facility] [address] [facility] [place], [place] [address] OFFICE VISIT Date of Service: 01/31/24 MR#: [id number] Acct: [id number] Name: ARLEN NGUYEN Hattie Rep #: [id number] : 1970 Provider: ADLEITA martin Age/Sex: 53/F Location: [facility] Status: Signed Intake Vital Signs 11/01/23 11:43 01/31/24 11:40 Height 5 ft 7 in 5 ft 7 in Weight: 278 lb 292 lb 6 oz BMI 43.5 45.8 BP 132/84 H 126/82 H Blood Pressure Location Lt brachial Rt brachial Position Sitting Sitting Pulse 76 78 Pulse Source Monitor Monitor Pulse Oximetry (%) 95 95 Oxygen Delivery Method room air room air Intake Visit Reasons: 3 M FU Chief Complaint: f/u diabetes Is patient in pain?: No Allergies nut - unspecified Allergy (Verified 11/01/23 11:47) Anaphylaxis peanut Allergy (Verified 11/01/23 11:47) Anaphylaxis shellfish derived Allergy (Verified 11/01/23 11:47) Anaphylaxis codeine Adverse Reaction (Verified 11/01/23 11:47) Rash prednisone Adverse Reaction (Verified 11/01/23 11:47) Other sertraline HCl (From Zoloft) Adverse Reaction (Verified 11/01/23 11:47) Other Medications ???Medication ???Instructions ???Recorded ???Confirmed ???Type albuterol sulfate 90 mcg/actuation 1 puff inhalation Q4H PRN PRN 12/01/13 01/31/24 History aerosol inhaler (Ventolin HFA) Shortness Of Breath zolpidem 10 mg tablet (Ambien) 5 mg PO QHS 12/01/13 01/31/24 History epinephrine 0.3 mg/0.3 mL 0.3 mg (0.3 mL) IJ X1 PRN 02/03/19 01/31/24 Rx injection, auto-injector Anaphylaxis ##1 atorvastatin 40 mg tablet 40 mg PO DAILY 02/03/21 01/31/24 History cetirizine 10 mg tablet 10 mg PO DAILY 02/03/21 01/31/24 History valsartan 320 mg tablet 320 mg PO QHS 03/07/23 01/31/24 History pantoprazole 40 mg tablet,delayed 40 mg PO QHS #90 TABLETS 07/19/23 01/31/24 Rx release dapagliflozin propanediol 10 mg 10 mg PO QDAY 08/03/23 01/31/24 History tablet metformin 1,000 mg tablet 1,000 mg PO BID 11/01/23 01/31/24 History paroxetine HCl 40 mg tablet 40 mg PO QDAY 11/01/23 01/31/24 History insulin lispro 200 unit/mL (3 mL) 170 unit (0.85 mL) subcut ONCE 12/06/23 01/31/24 Rx subcutaneous pen (Humalog KwikPen #76.5 mL U-200 Insulin) levothyroxine 125 mcg tablet 125 mcg PO QDAY #90 tabs 01/31/24 01/31/24 Rx PFSH Medical History Post-menopausal Wears contact lenses Anxiety Thyroid disease Fatty liver Hepatitis History of renal disease GERD (gastroesophageal reflux disease) Non-smoker Shortness of breath on exertion MRSA (methicillin resistant Staphylococcus aureus) Acute pharyngitis, unspecified Kidney disease Insulin pump in place SIRS (systemic inflammatory response syndrome) Hypothyroidism Tonsillectomy planned delivery delivered Neuropathy Hives High blood triglycerides Hepatitis A Hearing problem Gall stones Carpal tunnel syndrome Arthritis Allergies Depression Psoriatic arthritis High cholesterol Hypertension Migraines Morbid obesity with BMI of 45.0-49.9, adult Surgical History History of endometrial ablation History of removal of ovarian cyst History of cholecystectomy Family History Other Alcohol abuse Anxiety Arthritis Asthma Bleeding disorder Bowel disease Depression Diabetes Hypertension Severe allergy Social History household members: none Smoking Status: Never smoker alcohol intake: current alcohol intake frequency: 0-2 drinks per day substance use type: does not use what type of physical activity do you participate in: walking HPI HPI Chief Complaint: f/u diabetes Details: ARLEN NGUYEN, is a 53 F who presents to the office today for evaluation and management of evaluation and management of diabetes. A1C today is 7.1%, improved from 8.0% on 10/26/23. She has gained 14 lbs since that time. She recently switched from T-slim insulin pump to Medtronic 780g with Guardian 4 sensors- she is pleased with system. Pump downloaded and reviewed- she is is missing boluses for meals, she is under reporting carbohydrates. She admits that she is off track with her diet. She has been consuming a significant amount of processed carbohydrates. Denies any significant episode of hypoglycemia that has required assistance from others. Her insulin and pump supplies are costly to her. She has microalbuminuria. She is on an ARB. She was briefly on SGLT-2; however, it was unaffordable. BP controlled. Currently taking valsartan 320 mg once daily. Hx of poorly controlled hypothyroid. 01/10/24 TSH 5.7. Levothyroxine (more content not included)... Normal [facility] SCRN MAMM (CAD)W/PRESTON Larry n 01-24-2024 SCRN MAMM (CAD)W/PRESTON [facility] Imaging Services [address] [place] [address] SCRN MAMM (CAD)W/PRESTON BILAT MR#: [id number] Acct: [id number] Name: ARLEN NGUYEN Rep #: [id number] : 1970 F 53 From: Michel thurman MD PCP: Dr. Phu Espinzoa MD Status: REG CLI Study: SCRN MAMM (CAD)W/PRESTON BILAT Date of Exam: 12/27 Exam# [id number] Ordering Dr: Phu Espinoza MD -[id number] MAMMOGRAPHY - BILATERAL SCREENING REASON FOR EXAM: Female, 53 years old. Routine annual screening examination. PERTINENT HISTORY: Non-contributory. TECHNIQUE: Digital bilateral breast preston (3D mammographic acquisition) in the CC and MLO projections. 2-D mediolateral oblique (MLO) and craniocaudad (CC) views of both breasts were obtained. CAD: Full Field Digital Mammography with Computer Added Detection was performed. COMPARISON: Comparison is made with prior study March 07, 2022. FINDINGS: Breast Composition: There are scattered areas of fibroglandular density. There are no dominant masses or suspicious calcifications. No other significant abnormalities are identified. There has been no significant change since the prior study. BI/SCRN MAMM (CAD)W/PRESTON BILAT IMPRESSION: Stable bilateral screening mammogram. Yearly follow-up mammogram recommended. (A) ASSESSMENT CATEGORY: BIRADS Category 1: Negative. A letter regarding these results will be sent to the patient by the facility within 30 days. Approximately 10% of breast cancers are not detected by mammography. A normal mammogram should not delay biopsy of a clinically suspicious abnormality. [id number] Electronically Signed: Michel Alfred MD at 9:52 EDT , CC: Dr. Phu Espinoza MD Clip Loading Machine Feeder: Signed Normal [facility] CBC W/Diff, Automatedon 12-25 Absolute Lymph 2.48 X10 3/uL Normal 0.83-4.51 [facility] Comment on above: Performed By: #### L 501.9520, L500.4050, L100.0100 #### [facility] [address] [place], [address] Absolute Neut 4.4 X10 3/uL Normal 2.0-7.7 [facility] Comment on above: Performed By: #### L 501.9520, L500.4050, L100.0100 #### [facility] [address] [place], [address] Basophils/100 WBC (Bld) 0.6 % Normal 0-[address] [facility] Comment on above: Performed By: #### L 501.9520, L500.4050, L100.0100 #### [facility] [address] [place], [address] Eosinophils/100 WBC (Bld) 2.4 % Normal 0-5 [facility] Comment on above: Performed By: #### L 501.9520, L500.4050, L100.0100 #### [facility] [address] [place], [address] Erythrocyte distribution width (RBC) [Ratio] 14.0 % Normal 11.6-14.6 [facility] Comment on above: Performed By: #### L 501.9520, L500.4050, L100.0100 #### [facility] [address] [place], [address] Hematocrit (Bld) [Volume fraction] 35.6 % Low 37-47 [facility] Comment on above: Performed By: #### L 501.9520, L500.4050, L100.0100 #### [facility] [address] [place], [address] Hemoglobin (Bld) [Mass/Vol] 11.0 g/dL Low 12.0-15.0 [facility] Comment on above: Performed By: #### L 501.9520, L500.4050, L100.0100 #### [facility] [address] [place], [address] IG% 0.400 Normal 0.0-0.9 [facility] Comment on above: Result Comment: IG% - Immature Granulocytes (promyelocytes, myelocytes and metamyelocytes) > 1% indicates that a LEFT SHIFT is Present. Performed By: #### L 501.9520, L500.4050, L100.0100 #### [facility] [address] [place], [address] Lymphocytes/100 WBC (Bld) 31.8 % Normal 19-41 [facility] Comment on above: Performed By: #### L 501.9520, L500.4050, L100.0100 #### [facility] [address] [place], [address] MCH (RBC) [Entitic mass] 25.3 pg Low 27.0-32.0 [facility] Comment on above: Performed By: #### L 501.9520, L500.4050, L100.0100 #### [facility] [address] [place], [address] MCHC (RBC) [Mass/Vol] 30.9 g/dL Low 32-36 [facility] Comment on above: Performed By: #### L 501.9520, L500.4050, L100.0100 #### [facility] [address] [place], [address] MCV (RBC) [Entitic vol] 82.0 fL Normal 81-[address] [facility] Comment on above: Performed By: #### L 501.9520, L500.4050, L100.0100 #### [facility] [address], [address] Monocytes/100 WBC (Bld) 8.8 % Normal 0-10 [facility] Comment on above: Performed By: #### L 501.9520, L500.4050, L100.0100 #### [facility] [address] [place], [address] Neutrophils/100 WBC (Bld) 56.0 % Normal 47-70 [facility] Comment on above: Performed By: #### L 501.9520, L500.4050, L100.0100 #### [facility] [address] [place], [address] Nucleated RBC (Bld) [#/Vol] 0 10*3/uL Normal 0-5 [facility] Comment on above: Performed By: #### L 501.9520, L500.4050, L100.0100 #### [facility] [address] [place], [address] Platelet mean volume (Bld) [Entitic vol] 9.9 fL Normal 6.2-12.0 [facility] Comment on above: Performed By: #### L 501.9520, L500.4050, L100.0100 #### [facility] [address] [place], [address] Platelets (Bld) [#/Vol] 256 10*3/uL Normal 150-450 [facility] Comment on above: Performed By: #### L 501.9520, L500.4050, L100.0100 #### [facility] [address] [place], [address] RBC (Bld) [#/Vol] 4.34 10*6/uL Normal 4.2-5.4 [facility] Comment on above: Performed By: #### L 501.9520, L500.4050, L100.0100 #### [facility] [address] [place], [address] RDW SD 41.4 fl Normal 35.1-43.9 [facility] Comment on above: Performed By: #### L 501.9520, L500.4050, L100.0100 #### [facility] [address] [place], [address] WBC (Bld) [#/Vol] 7.8 10*3/uL Normal 4.4-11.0 [facility] Comment on above: Performed By: #### L 501.9520, L500.4050, L100.0100 #### [facility] [address] [place], [address] Comprehensive Metabolic [facility] 01-10-2024 Albumin [Mass/Vol] 3.6 g/dL Normal 3.2-5.0 [facility] Comment on above: Performed By: #### L 501.9520, L500.4050, L100.0100 #### [facility] [address] [place], [address] Albumin/Globulin [Mass ratio] 0.9 {ratio} Normal 0.9-2.4 [facility] Comment on above: Performed By: #### L 501.9520, L500.4050, L100.0100 #### [facility] [address] [place], [address] ALK P 66 U/L Normal 45-117 [facility] Comment on above: Performed By: #### L 501.9520, L500.4050, L100.0100 #### [facility] [address] [place], [address] ALT [Catalytic activity/Vol] 81 U/L High 13-56 [facility] Comment on above: Performed By: #### L 501.9520, L500.4050, L100.0100 #### [facility] [address] [place], [address] AST [Catalytic activity/Vol] 53 U/L High 15-37 [facility] Comment on above: Performed By: #### L 501.9520, L500.4050, L100.0100 #### [facility] [address] [place], [address] Bilirubin [Mass/Vol] 0.40 mg/dL Normal 0.20-1.00 [facility] Comment on above: Result Comment: For patients on eltrombopag therapy, use of Dimension [place] TBIL is not recommended. Performed By: #### L 501.9520, L500.4050, L100.0100 #### [facility] [address] [place], [address] BUN/CRE 21.7 RATIO High 10-20 [facility] Comment on above: Performed By: #### L 501.9520, L500.4050, L100.0100 #### [facility] [address] [place], [address] CA,Total 9.2 mg/dL Normal 8.5-10.1 [facility] Comment on above: Performed By: #### L 501.9520, L500.4050, L100.0100 #### [facility] [address] [place], [address] Chloride [Moles/Vol] 106 mmol/L Normal 98-107 [facility] Comment on above: Performed By: #### L 501.9520, L500.4050, L100.0100 #### [facility] [address] [place], [address] CO2 [Moles/Vol] 28.0 mmol/L Normal 21.0-32.0 [facility] Comment on above: Performed By: #### L 501.9520, L500.4050, L100.0100 #### [facility] [address] [place], [address] Creatinine [Mass/Vol] 0.97 mg/dL Normal 0.55-1.02 [facility] Comment on above: Result Comment: The validity of the calculated GFR GFRAA in patients over 70 years has not been determined. Clinical correlation is essential. Performed By: #### L 501.9520, L500.4050, L100.0100 #### [facility] [address] [place], [address] EST GFR - AA 77 mL/min Normal >60 [facility] Comment on above: Result Comment: Afri can [place] GFR Calc Performed By: #### L 501.9520, L500.4050, L100.0100 #### [facility] [address] [place], [address] GAP 7 Normal 5-15 [facility] Comment on above: Performed By: #### L 501.9520, L500.4050, L100.0100 #### [facility] [address] [place], [address] GFR/1.73 sq M.predicted among non-blacks MDRD (S/P/Bld) [Vol rate/Area] 64 mL/min/{1.73_m2} Normal >60 [facility] Comment on above: Result Comment: Non- GFR Calc Performed By: #### L 501.9520, L500.4050, L100.0100 #### [facility] [address] [place], [address] Globulin (S) [Mass/Vol] 4.0 g/dL Normal 2.2-4.2 [facility] Comment on above: Performed By: #### L 501.9520, L500.4050, L100.0100 #### [facility] [address] [place], [address] Glucose [Mass/Vol] 162 mg/dL High 74-106 [facility] Comment on above: Result Comment: Fast ing Glucose result greater than or equal to 126 mg/dL suggests DIABETES MELLITUS per A.D.A. criteria. Performed By: #### L 501.9520, L500.4050, L100.0100 #### [facility] [address] [place], [address] Potassium [Moles/Vol] 4.2 mmol/L Normal 3.5-5.1 [facility] Comment on above: Performed By: #### L 501.9520, L500.4050, L100.0100 #### [facility] [address] [place], [address] Sodium [Moles/Vol] 141 mmol/L Normal 136-145 [facility] Comment on above: Performed By: #### L 501.9520, L500.4050, L100.0100 #### [facility] [address] [place], [address] T PROT 7.6 g/dL Normal 6.4-8.2 [facility] Comment on above: Performed By: #### L 501.9520, L500.4050, L100.0100 #### [facility] [address] [place], [address] Urea nitrogen [Mass/Vol] 21 mg/dL High 7-18 [facility] Comment on above: Performed By: #### L 501.9520, L500.4050, L100.0100 #### [facility] [address] [place], [address] Thyroid Stim Hormone (TSH)on 01-10-2024 TSH 5.760 uIU/mL High 0.358-3.740 [facility] Comment on above: Performed By: #### L 501.9520, L500.4050, L100.0100 #### [facility] [address] [place], [address] Endocrinology Visit Reporton 11-01-2023 Endocrinology Visit Report [facility] [address] [place], [place] [address] OFFICE VISIT Date of Service: 11/01/23 MR#: [id number] Acct: [id number] Name: ARLEN NGUYEN Rep #: [id number] : 1970 Provider: ADELITA martin Age/Sex: 53/F Location: [facility] Status: Signed Intake Vital Signs 08/03/23 10:59 11/01/23 11:43 Height 5 ft 7 in 5 ft 7 in Weight: 285 lb 8 oz 278 lb BMI 44.6 43.5 BP 142/85 H 132/84 H Blood Pressure Location Rt brachial Lt brachial Position Sitting Sitting Respiration 18 Pulse 82 76 Pulse Source NIBP Monitor Temp 98.2 F Temp Source Temporal Pulse Oximetry (%) 95 95 Oxygen Delivery Method room air room air Intake Visit Reasons: 3 M FU Chief Complaint: f/u diabetes Restaurant Inspector Required: No Accompanied by: Self Is patient in pain?: No Allergies nut - unspecified Allergy (Verified 11/01/23 11:47) Anaphylaxis peanut Allergy (Verified 11/01/23 11:47) Anaphylaxis shellfish derived Allergy (Verified 11/01/23 11:47) Anaphylaxis codeine Adverse Reaction (Verified 11/01/23 11:47) Rash prednisone Adverse Reaction (Verified 11/01/23 11:47) Other sertraline HCl (From Zoloft) Adverse Reaction (Verified 11/01/23 11:47) Other Medications ???Medication ???Instructions ???Recorded ???Confirmed ???Type albuterol sulfate 90 mcg/actuation 1 puff inhalation Q4H PRN PRN 12/01/13 11/01/23 History aerosol inhaler (Ventolin HFA) Shortness Of Breath zolpidem 10 mg tablet (Ambien) 5 mg PO QHS 12/01/13 11/01/23 History epinephrine 0.3 mg/0.3 mL 0.3 mg (0.3 mL) IJ X1 PRN 02/03/19 11/01/23 Rx injection, auto-injector Anaphylaxis ##1 atorvastatin 40 mg tablet 40 mg PO DAILY 02/03/21 11/01/23 History cetirizine 10 mg tablet 10 mg PO DAILY 02/03/21 11/01/23 History blood-glucose transmitter (Dexcom #1 ea 01/12/23 11/01/23 Rx G6 Transmitter device) levothyroxine 25 mcg tablet 25 mcg PO DAILY 02/15/23 11/01/23 History valsartan 320 mg tablet 320 mg PO QHS 03/07/23 11/01/23 History blood-glucose sensor (Dexcom G6 #3 ea 05/15/23 11/01/23 Rx Sensor device) pantoprazole 40 mg tablet,delayed 40 mg PO QHS #90 TABLETS 07/19/23 11/01/23 Rx release dapagliflozin propanediol 10 mg 10 mg PO QDAY 08/03/23 11/01/23 History tablet insulin lispro 100 unit/mL 155 unit (1.55 mL) continuous 08/09/23 11/01/23 Rx subcutaneous solution (Humalog subcutaneous infusion .continuous U-100 Insulin) #140 mL metformin 1,000 mg tablet 1,000 mg PO BID 11/01/23 11/01/23 History paroxetine HCl 40 mg tablet 40 mg PO QDAY 11/01/23 11/01/23 History PFSH Medical History Post-menopausal Wears contact lenses Anxiety Thyroid disease Fatty liver Hepatitis History of renal disease GERD (gastroesophageal reflux disease) Non-smoker Shortness of breath on exertion MRSA (methicillin resistant Staphylococcus aureus) Acute pharyngitis, unspecified Kidney disease Insulin pump in place SIRS (systemic inflammatory response syndrome) Hypothyroidism Tonsillectomy planned delivery delivered Neuropathy Hives High blood triglycerides Hepatitis A Hearing problem Gall stones Carpal tunnel syndrome Arthritis Allergies Depression Psoriatic arthritis High cholesterol Hypertension Migraines Morbid obesity with BMI of 45.0-49.9, adult Surgical History History of endometrial ablation History of removal of ovarian cyst History of cholecystectomy Family History Other Alcohol abuse Anxiety Arthritis Asthma Bleeding disorder Bowel disease Depression Diabetes Hypertension Severe allergy Social History household members: none Smoking Status: Never smoker alcohol intake: current alcohol intake frequency: 0-2 drinks per day substance use type: does not use what type of physical activity do you participate in: walking HPI HPI Chief Complaint: f/u diabetes Details: ARLEN NGUYEN, is a 53 F who presents to the office today for evaluation and management of diabetes. A1C today is 8.0%, consistent with 08/03/23; I believe this is falsely elevated. She reports significant increased effort with diet, she has lost 7 lbs, and GMI is 7.0%. Currently using T-slim insulin pump with Bebestore G6 CGM- she is pleased with system; however, supplies are costly. Plan moving forward is to switch to Medtronic 780g as she can get supplies at more affordable das. Additionally she is taking metformin 1 gm BID with food. She was previously on SGLT-2; however, it was unaffordable. BP today 132/84, improved from 08/03/23 at 1 (more content not included)... Normal [facility] Endocrinology Visit Reporton 08-03-2023 Endocrinology Visit Report [facility] [address] [place] [address] OFFICE VISIT Date of Service: 08/03/23 MR#: [id number] Acct: [id number] Name: ARLEN NGUYEN Rep #: [id number] : 1970 Provider: ADELITA martin Age/Sex: 53/F Location: [facility] [place] Status: Signed Intake Vital Signs 03/02/23 11:10 03/13/23 07:08 08/03/23 10:59 Height 5 ft 7 in 5 ft 7 in 5 ft 7 in Weight: 285 lb 8 oz BMI 44.6 BP 142/85 H Blood Pressure Location Rt brachial Position Sitting Respiration 18 Pulse 82 Pulse Source NIBP Temp 98.2 F Temp Source Temporal Pulse Oximetry (%) 95 Oxygen Delivery Method room air Intake Visit Reasons: 5 M FU Chief Complaint: f/u diabetes Restaurant Inspector Required: No Is patient in pain?: No Allergies nut - unspecified Allergy (Verified 08/03/23 11:02) Anaphylaxis peanut Allergy (Verified 08/03/23 11:02) Anaphylaxis shellfish derived Allergy (Verified 08/03/23 11:02) Anaphylaxis codeine Adverse Reaction (Verified 08/03/23 11:02) Rash prednisone Adverse Reaction (Verified 08/03/23 11:02) Other sertraline HCl [From Zoloft] Adverse Reaction (Verified 08/03/23 11:02) Other Medications albuterol sulfate 90 mcg/actuation aerosol inhaler (Ventolin HFA) 1 puff inhalation Q4H PRN PRN Shortness Of Breath 12/01/13 [History Confirmed 08/03/23] metformin 750 mg tablet,extended release 24 hr (Glucophage XR) 1,000 mg PO BID 12/01/13 [History Confirmed 08/03/23] paroxetine HCl 30 mg tablet (Paxil) 40 mg PO QHS 12/01/13 [History Confirmed 08/03/23] zolpidem 10 mg tablet (Ambien) 5 mg PO QHS 12/01/13 [History Confirmed 08/03/23] epinephrine 0.3 mg/0.3 mL injection, auto-injector 0.3 mg (0.3 mL) IJ X1 PRN Anaphylaxis ##1 02/03/19 [Rx Confirmed 08/03/23] atorvastatin 40 mg tablet 40 mg PO DAILY 02/03/21 [History Confirmed 08/03/23] cetirizine 10 mg tablet 10 mg PO DAILY 02/03/21 [History Confirmed 08/03/23] blood-glucose transmitter (Bebestore G6 Transmitter device) #1 ea 01/12/23 [Rx Confirmed 03/02/23] levothyroxine 25 mcg tablet 25 mcg PO DAILY 02/15/23 [History Confirmed 08/03/23] valsartan 320 mg tablet 320 mg PO QHS 03/07/23 [History Confirmed 08/03/23] blood-glucose sensor (Dexcom G6 Sensor device) #3 ea 05/15/23 [Rx] pantoprazole 40 mg tablet,delayed release 40 mg PO QHS #90 TABLETS 07/19/23 [Rx Confirmed 08/03/23] dapagliflozin propanediol 10 mg tablet 10 mg PO QDAY 08/03/23 [History Confirmed 08/03/23] insulin lispro 100 unit/mL subcutaneous solution (Humalog U-100 Insulin) 150 unit (1.5 mL) continuous subcutaneous infusion .continuous #135 mL 08/03/23 [Rx Confirmed 08/03/23] Is last menstrual period known: No Post menopausal: Yes Patient : No PFSH Medical History Acute pharyngitis, unspecified Allergies Anxiety Arthritis Carpal tunnel syndrome delivery delivered Depression Fatty liver Gall stones GERD (gastroesophageal reflux disease) Hearing problem Hepatitis Hepatitis A High blood triglycerides High cholesterol History of renal disease Hives Hypertension Hypothyroidism Insulin pump in place Kidney disease Migraines Morbid obesity with BMI of 45.0-49.9, adult MRSA (methicillin resistant Staphylococcus aureus) Neuropathy Non-smoker Post-menopausal Psoriatic arthritis Shortness of breath on exertion SIRS (systemic inflammatory response syndrome) Thyroid disease Tonsillectomy planned Wears contact lenses Surgical History History of cholecystectomy History of endometrial ablation History of removal of ovarian cyst Family History Other Alcohol abuse Anxiety Arthritis Asthma Bleeding disorder Bowel disease Depression Diabetes Hypertension Severe allergy Social History household members: none Smoking Status: Never smoker alcohol intake: current alcohol intake frequency: 0-2 drinks per day substance use type: does not use what type of physical activity do you participate in: walking HPI HPI Chief Complaint: f/u diabetes Details: ARLEN NGUYEN, is a 53 F who presents to the office today for evaluation and management of diabetes. Recent A1C with PCP was 8.0%, increased from 03/02/23 at 7.3%. She has gained 3 lbs. Currently using T-slim insulin pump with Dexcom G6 CGM- she is overall pleased with system; however, supplies are very costly to her. PCP recently started her on Farxiga 10 mg once daily- this is >$700/month. Cost of medications is significant. Hx of CKD and +M:C. Currently on ACEI and recently SGLT-2. Insulin pump downloaded and reviewed- she is under reporting c (more content not included)... Normal [facility] Culture, urineOrdered By: Sloan Espinoza on 04-03-2023 Bacteria identified Cx Nom (U) Mixed Gram Pos & Gram Neg Org [facility] Bacteria identified Cx Nom (U) Mixed Gram Pos & Gram Neg Org [facility] Glucose Glucometer (BldC) [M ass/Vol]Ordered By: Jodi Agee on 03-13-2023 Glucose [Mass/Vol] 186 mg/dL 74-106 [facility] Comment on above: MANAGEMENT OF PATIEN T CARE PER NURSING PROTOCOL Absolute lymphocyte countOrd ered By: Massiel Gibbons on 03-02-2023 Lymphocytes Auto (Unsp spec) [#/Vol] 2.72 10*3/uL 0.83-4.51 [facility] Basophil percentageOrdered B y: Massiel Gibbons on 03-02-2023 Basophils/100 WBC (Bld) 0.4 % 0-[address] [facility] Cholesterol [Mass/Vol] 148 mg/dL <200 [facility] Comment on above: <200 mg/dL Desirable 200-240 mg/dL Borderline >240 mg/dL High Risk Eosinophils/100 WBC (Bld) 1.7 % 0-5 [facility] Neutrophils (Bld) [#/Vol] 3.6 10*3/uL 2.0-7.7 [facility] Neutrophils/100 WBC (Bld) 50.4 % 47-70 [facility] Triglyceride [Mass/Vol] 136 mg/dL <[address] [facility] Comment on above: The drugs N-Acetylcy steine and Metamizole may falsely depress this assay.Serum Triglycerides Reference Interval Normal <150 mg/dL Borderline high 150 - 199 mg/dL High 200 - 499 mg/dL Very High > or = 500 mg/dL WBC (Bld) [#/Vol] 7.1 10*3/uL 4.4-11.0 [facility] Blood erythrocytes count (nu mber/volume)Ordered By: Massiel Gibbons on 03-02-2023 RBC (Bld) [#/Vol] 4.22 10*6/uL 4.2-5.4 [facility] Blood hemoglobin measurement (mass/volume)Ordered By: Massiel Gibbons on 03-02-2023 Hemoglobin (Bld) [Mass/Vol] 11.0 g/dL 12.0-15.0 [facility] Blood lymphocytes/100 leukoc ytesOrdered By: Massiel Gibbons on 03-02-2023 Lymphocytes/100 WBC (Bld) 38.5 % 19-41 [facility] Blood monocytes/100 leukocyt esOrdered By: Massiel Gibbons on 03-02-2023 Monocytes/100 WBC (Bld) 8.6 % 0-[address] [facility] Blood platelet mean volumeOr dered By: Massiel Gibbons on 03-02-2023 Platelet mean volume (Bld) [Entitic vol] 9.8 fL 6.2-12.0 [facility] Determination of erythrocyte mean corpuscular volume (MCV)Ordered By: Massiel Gibbons on 03-02-2023 MCV (RBC) [Entitic vol] 83.2 fL 81-[address] [facility] Hematocrit Auto (Bld) [Volum e fraction]Ordered By: Massiel Gibbons on 03-02-2023 Hematocrit (Bld) [Volume fraction] 35.1 % 37-47 [facility] Laboratory - Chemistry and C hemistry - challengeOrdered By: Massiel Gibbons on 03-02-2023 Free T4 [Mass/Vol] 0.83 ng/dL 0.76-1.46 [facility] Laboratory - Hematology and Cell countsOrdered By: Massiel Gibbons on 03-02-2023 Erythrocyte distribution width (RBC) [Entitic vol] 41.3 fL 35.1-43.9 [facility] Erythrocyte distribution width (RBC) [Ratio] 13.7 % 11.6-14.6 [facility] Immature granulocytes/100 WBC (Bld) 0.400 % 0.0-0.9 [facility] Comment on above: IG% - Immature Granu locytes (promyelocytes, myelocytes and metamyelocytes) > 1% indicates that a LEFT SHIFT is Present. MCH (RBC) [Entitic mass] 26.1 pg 27.0-32.0 [facility] Nucleated RBC/100 WBC (Bld) [Ratio] 0 % 0-5 [facility] Laboratory - Hematology and Cell countson 03-02-2023 HbA1c (Bld) [Mass fraction] 7.3 % 4.2-6.3 [facility] MCHC Auto (RBC) [Mass/Vol]Or dered By: Massiel Gibbons on 03-02-2023 MCHC (RBC) [Mass/Vol] 31.3 g/dL 32-36 [facility] No Panel InformationOrdered By: Massiel Gibbons on 03-02-2023 Thyroid Stimulating Hormone (TSH) 2.85 uIU/mL 0.358-3.74 [facility] Platelets bldOrdered By: Griselda Gibbons on 03-02-2023 Platelets (Bld) [#/Vol] 284 10*3/uL 150-450 [facility] Serum or plasma cholesterol in HDL measurement (mass/volume)Ordered By: Massiel Gibbons on 03-02-2023 Cholesterol in HDL [Mass/Vol] 46 mg/dL >40 [facility] Comment on above: The drugs N-Acetylcy steine and Metamizole may falsely depress this assay. Reference Range HDL <40 mg/dL Low HDL Cholesterol HDL >or= 60 mg/dL High HDL Cholesterol Serum or plasma cholesterol in VLDL measurement (mass/volume)Ordered By: Massiel Gibbons on 03-02-2023 Cholesterol in VLDL [Mass/Vol] 27 mg/dL 5-40 [facility] Serum or plasma ferritin lizette surement (mass/volume)Ordered By: Massiel Gibbons on 03-02-2023 Ferritin [Mass/Vol] 23 ng/mL 8-252 [facility] Serum or plasma low density lipoprotein (LDL) cholesterol measurement (mass/volume)Ordered By: Massiel Gibbons on 03-02-2023 Cholesterol in LDL [Mass/Vol] 75 mg/dL 0-130 [facility] Blood hemoglobin measurement (mass/volume)Ordered By: Phu Espinoza on 02-08-2023 Hemoglobin (Bld) [Mass/Vol] 10.8 g/dL 12.0-15.0 [facility] Hematocrit Auto (Bld) [Volum e fraction]Ordered By: Phu Espinoza on 02-08-2023 Hematocrit (Bld) [Volume fraction] 33.9 % 37-47 [facility] Stool gastrointestinal hemog lobin detection by immunologic methodOrdered By: Phu Espinoza on 01-11-2023 Lower GI hemoglobin IA Ql (Stl) [facility] Lower GI hemoglobin IA Ql (Stl) [facility] Absolute lymphocyte countOrd ered By: Phu Espinoza on 01-09-2023 Lymphocytes Auto (Unsp spec) [#/Vol] 2.49 10*3/uL 0.83-4.51 [facility] Basophil percentageOrdered B y: Phu Espinoza on 01-09-2023 Basophils/100 WBC (Bld) 0.5 % 0-[address] [facility] Eosinophils/100 WBC (Bld) 2.2 % 0-5 [facility] Neutrophils (Bld) [#/Vol] 4.3 10*3/uL 2.0-7.7 [facility] Neutrophils/100 WBC (Bld) 55.4 % 47-70 [facility] WBC (Bld) [#/Vol] 7.7 10*3/uL 4.4-11.0 [facility] Blood erythrocytes count (nu mber/volume)Ordered By: Phu Espinoza on 01-09-2023 RBC (Bld) [#/Vol] 4.35 10*6/uL 4.2-5.4 [facility] Blood hemoglobin measurement (mass/volume)Ordered By: Phu Espinoza on 01-09-2023 Hemoglobin (Bld) [Mass/Vol] 11.4 g/dL 12.0-15.0 [facility] Blood lymphocytes/100 leukoc ytesOrdered By: Phu Espinoza on 01-09-2023 Lymphocytes/100 WBC (Bld) 32.5 % 19-41 [facility] Blood monocytes/100 leukocyt esOrdered By: Phu Espinoza on 01-09-2023 Monocytes/100 WBC (Bld) 8.9 % 0-[address] [facility] Blood platelet mean volumeOr dered By: Phu Espinoza on 01-09-2023 Platelet mean volume (Bld) [Entitic vol] 10.3 fL 6.2-12.0 [facility] Determination of erythrocyte mean corpuscular volume (MCV)Ordered By: Phu Espinoza on 01-09-2023 MCV (RBC) [Entitic vol] 85.5 fL 81-[address] [facility] Hematocrit Auto (Bld) [Volum e fraction]Ordered By: Phu Espinoza on 01-09-2023 Hematocrit (Bld) [Volume fraction] 37.2 % 37-47 [facility] Hemoglobin in reticulocytes (mass per reticulocyte)Ordered By: Phu Espinoza on 01-09-2023 Hemoglobin (Reticulocytes) [Entitic mass] 29.3 pg 30-35 [facility] Iron measurement (mass/mass) Ordered By: Phu Espinoza on 01-09-2023 Iron (Unsp spec) [Mass/Mass] 44 ug/dL 50-170 [facility] Laboratory - Chemistry and C hemistry - challengeOrdered By: Phu Espinoza on 01-09-2023 Cobalamin (Vitamin B12) [Mass/Vol] 293 pg/mL 211-911 [facility] Laboratory - Hematology and Cell countsOrdered By: Phu Espinoza on 01-09-2023 Erythrocyte distribution width (RBC) [Entitic vol] 41.7 fL 35.1-43.9 [facility] Erythrocyte distribution width (RBC) [Ratio] 13.3 % 11.6-14.6 [facility] Immature granulocytes/100 WBC (Bld) 0.500 % 0.0-0.9 [facility] Comment on above: IG% - Immature Granu locytes (promyelocytes, myelocytes and metamyelocytes) > 1% indicates that a LEFT SHIFT is Present. MCH (RBC) [Entitic mass] 26.2 pg 27.0-32.0 [facility] Nucleated RBC/100 WBC (Bld) [Ratio] 0 % 0-5 [facility] MCHC Auto (RBC) [Mass/Vol]Or dered By: Phu Espinoza on 01-09-2023 MCHC (RBC) [Mass/Vol] 30.6 g/dL 32-36 [facility] No Panel InformationOrdered By: Phu Espinoza 01-09-2023 Immature Reticulocyte Fraction 27.90 % 3.00-15.90 [facility] Reticulocyte Count 2.36 % 0.5-1.5 [facility] Total Iron Binding Capacity 482 ug/dL 250-450 [facility] Platelets bldOrdered By: Phu Espinoza on 01-09-2023 Platelets (Bld) [#/Vol] 271 10*3/uL 150-450 [facility] Serum or plasma ferritin lizette surement (mass/volume)Ordered By: Phu Snowok on 01-09-2023 Ferritin [Mass/Vol] 18 ng/mL 8-252 [facility] Serum or plasma folate measu rement (mass/volume)Ordered By: Phu Espinoza on 01-09-2023 Folate [Mass/Vol] 13.00 ng/mL 3.1-55.4 [facility] Serum or plasma iron saturat ion measurement (mass fraction)Ordered By: Phu Espinoza on 01-09-2023 Iron saturation [Mass fraction] 9.1 % 15.0-55.0 [facility] Absolute lymphocyte countOrd ered By: Phu Alexis on 01-03-2023 Lymphocytes Auto (Unsp spec) [#/Vol] 2.77 10*3/uL 0.83-4.51 [facility] Basophil percentageOrdered B y: Phu [place]ok on 01-03-2023 Basophils/100 WBC (Bld) 0.5 % 0-1 [facility] Bilirubin [Mass/Vol] 0.30 mg/dL 0.20-1.00 [facility] Comment on above: For patients on eltr ombopag therapy, use of Dimension [place] TBIL is not recommended. Chloride [Moles/Vol] 105 mmol/L 98-107 [facility] Eosinophils/100 WBC (Bld) 1.4 % 0-5 [facility] Glucose [Mass/Vol] 137 mg/dL 74-106 [facility] Comment on above: Fasting Glucose resu lt greater than or equal to 126 mg/dL suggests DIABETES MELLITUS per A.D.A. criteria. Neutrophils (Bld) [#/Vol] 4.1 10*3/uL 2.0-7.7 [facility] Neutrophils/100 WBC (Bld) 53.4 % 47-70 [facility] Potassium [Moles/Vol] 4.3 mmol/L 3.5-5.1 [facility] Protein [Mass/Vol] 7.5 g/dL 6.4-8.2 [facility] Sodium [Moles/Vol] 140 mmol/L 136-145 [facility] WBC (Bld) [#/Vol] 7.7 10*3/uL 4.4-11.0 [facility] Blood erythrocytes count (nu mber/volume)Ordered By: Phu Espinoza on 01-03-2023 RBC (Bld) [#/Vol] 4.14 10*6/uL 4.2-5.4 [facility] Blood hemoglobin measurement (mass/volume)Ordered By: Phu Espinoza on 01-03-2023 Hemoglobin (Bld) [Mass/Vol] 10.8 g/dL 12.0-15.0 [facility] Blood lymphocytes/100 leukoc ytesOrdered By: Phu Espinoza on 01-03-2023 Lymphocytes/100 WBC (Bld) 36.0 % 19-41 [facility] Blood monocytes/100 leukocyt esOrdered By: Phu Espinoza on 01-03-2023 Monocytes/100 WBC (Bld) 8.3 % 0-[address] [facility] Blood platelet mean volumeOr dered By: Phu Espinoza on 01-03-2023 Platelet mean volume (Bld) [Entitic vol] 10.2 fL 6.2-12.0 [facility] Determination of erythrocyte mean corpuscular volume (MCV)Ordered By: Phu Espinoza on 01-03-2023 MCV (RBC) [Entitic vol] 83.6 fL 81-[address] [facility] Hematocrit Auto (Bld) [Volum e fraction]Ordered By: Phu Espinoza on 01-03-2023 Hematocrit (Bld) [Volume fraction] 34.6 % 37-47 [facility] Laboratory - Chemistry and C hemistry - challengeOrdered By: Phu Espinoza on 01-03-2023 ALP [Catalytic activity/Vol] 50 U/L 45-117 [facility] ALT [Catalytic activity/Vol] 31 U/L 13-56 [facility] CO2 [Moles/Vol] 26.0 mmol/L 21.0-32.0 [facility] Globulin (S) [Mass/Vol] 3.8 g/dL 2.2-4.[address] [facility] Urea nitrogen/Creatinine [Mass ratio] 17.8 mg/mg 10-20 [facility] Laboratory - Hematology and Cell countsOrdered By: Phu Espinoza on 01-03-2023 Erythrocyte distribution width (RBC) [Entitic vol] 40.8 fL 35.1-43.9 [facility] Erythrocyte distribution width (RBC) [Ratio] 13.4 % 11.6-14.6 [facility] Immature granulocytes/100 WBC (Bld) 0.400 % 0.0-0.9 [facility] Comment on above: IG% - Immature Granu locytes (promyelocytes, myelocytes and metamyelocytes) > 1% indicates that a LEFT SHIFT is Present. MCH (RBC) [Entitic mass] 26.1 pg 27.0-32.0 [facility] Nucleated RBC/100 WBC (Bld) [Ratio] 0 % 0-5 [facility] MCHC Auto (RBC) [Mass/Vol]Or dered By: Phu Espinoza on 01-03-2023 MCHC (RBC) [Mass/Vol] 31.2 g/dL 32-36 [facility] No Panel InformationOrdered By: Phu Espinoza on 01-03-2023 Estimated GFR (MDRD) Amer 62 mL/min >60 [facility] Comment on above: GFR Calc Estimated GFR (MDRD) Non-Af Amer 51 mL/min >60 [facility] Comment on above: Non- GFR Calc Thyroid Stimulating Hormone (TSH) 6.16 uIU/mL 0.358-3.74 [facility] Platelets bldOrdered By: Phu Espinoza on 01-03-2023 Platelets (Bld) [#/Vol] 261 10*3/uL 150-450 [facility] Serum or plasma albumin thiago urement (mass/volume)Ordered By: Phu Espinoza on 01-03-2023 Albumin [Mass/Vol] 3.7 g/dL 3.2-5.0 [facility] Serum or plasma albumin/glob ulin mass ratioOrdered By: Phu Espinoza on 01-03-2023 Albumin/Globulin [Mass ratio] 1.0 {ratio} 0.9-2.4 [facility] Serum or plasma calcium thiago urement (mass/volume)Ordered By: Phu Espinoza on 01-03-2023 Calcium [Mass/Vol] 9.0 mg/dL 8.5-10.1 [facility] Serum or plasma creatinine m easurement (mass/volume)Ordered By: Phu Espinoza on 01-03-2023 Creatinine [Mass/Vol] 1.18 mg/dL 0.55-1.02 [facility] Comment on above: The validity of the calculated GFR & GFRAA in patients over 70 years has not been determined. Clinical correlation is essential. Serum or plasma urea nitroge n measurement (mass/volume)Ordered By: Phu Espinoza on 01-03-2023 Urea nitrogen [Mass/Vol] 21 mg/dL 7-18 [facility] Thin prep Papanicolaou smear with manual screeningOrdered By: Phu Espinoza on 01-03-2023 Thin prep Papanicolaou smear with manual screening 30 U/L 15-37 [facility] Thin prep Papanicolaou smear with manual screening 9 5-15 [facility] Laboratory - Hematology and Cell countson 11-17-2022 HbA1c (Bld) [Mass fraction] 7.1 % 4.2-6.3 [facility] Basophil percentageOrdered B y: Massiel Gibbons on 08-17-2022 Bilirubin [Mass/Vol] 0.70 mg/dL 0.20-1.00 [facility] Comment on above: For patients on eltr ombopag therapy, use of Dim[employer] [place] TBIL is not recommended. Chloride [Moles/Vol] 105 mmol/L 98-107 [facility] Glucose [Mass/Vol] 167 mg/dL 74-106 [facility] Comment on above: Fasting Glucose resu lt greater than or equal to 126 mg/dL suggests DIABETES MELLITUS per A.D.A. criteria. Potassium [Moles/Vol] 4.3 mmol/L 3.5-5.1 [facility] [facility] [Mass/Vol] 8.1 g/dL 6.4-8.2 [facility] Sodium [Moles/Vol] 138 mmol/L 136-145 [facility] Laboratory - Chemistry and C hemistry - challengeOrdered By: Massiel Gibbons on 08-17-2022 ALP [Catalytic activity/Vol] 54 U/L 45-117 [facility] ALT [Catalytic activity/Vol] 31 U/L 13-56 [facility] CO2 [Moles/Vol] 26.0 mmol/L 21.0-32.0 [facility] Globulin (S) [Mass/Vol] 4.2 g/dL 2.2-4.[address] [facility] Urea nitrogen/Creatinine [Mass ratio] 25.2 mg/mg 10-20 [facility] No Panel InformationOrdered By: Massiel Gibbons on 08-17-2022 Estimated GFR (MDRD) Amer 72 mL/min >60 [facility] Comment on above: GFR Calc Estimated GFR (MDRD) Non-Af Amer 60 mL/min >60 [facility] Comment on above: Non- GFR Calc Thyroid Stimulating Hormone (TSH) 3.80 uIU/mL 0.358-3.74 [facility] Serum or plasma albumin thiago urement (mass/volume)Ordered By: Massiel Gibbons on 08-17-2022 Albumin [Mass/Vol] 3.9 g/dL 3.2-5.0 [facility] Serum or plasma albumin/glob ulin mass ratioOrdered By: Massiel Gibbons on 08-17-2022 Albumin/Globulin [Mass ratio] 0.9 {ratio} 0.9-2.4 [facility] Serum or plasma calcium thiago urement (mass/volume)Ordered By: Massiel Gibbosn on 08-17-2022 Calcium [Mass/Vol] 10.0 mg/dL 8.5-10.1 [facility] Serum or plasma creatinine m easurement (mass/volume)Ordered By: Massiel Gibbons on 08-17-2022 Creatinine [Mass/Vol] 1.03 mg/dL 0.55-1.02 [facility] Comment on above: The validity of the calculated GFR & GFRAA in patients over 70 years has not been determined. Clinical correlation is essential. Serum or plasma urea nitroge n measurement (mass/volume)Ordered By: Massiel Gibbons on 08-17-2022 Urea nitrogen [Mass/Vol] 26 mg/dL 7-18 [facility] Thin prep Papanicolaou smear with manual screeningOrdered By: Massiel Gibbons on 08-17-2022 Thin prep Papanicolaou smear with manual screening 28 U/L 15-37 [facility] Thin prep Papanicolaou smear with manual screening 7 5-15 [facility] Absolute lymphocyte countOrd ered By: Dr. Espinoza on 04-04-2023 Lymphocytes Auto (Unsp spec) [#/Vol] 2.68 10*3/uL 0.83-4.51 [facility] Basophil percentageOrdered B y: Dr. Espinoza on 06-28-2022 Basophils/100 WBC (Bld) 0.7 % 0-1 [facility] Bilirubin [Mass/Vol] 0.30 mg/dL 0.20-1.00 [facility] Comment on above: For patients on eltr ombopag therapy, use of Dimension [place] TBIL is not recommended. Chloride [Moles/Vol] 107 mmol/L 98-107 [facility] Eosinophils/100 WBC (Bld) 2.4 % 0-5 [facility] Glucose [Mass/Vol] 138 mg/dL 74-106 [facility] Comment on above: Fasting Glucose resu lt greater than or equal to 126 mg/dL suggests DIABETES MELLITUS per A.D.A. criteria. Neutrophils (Bld) [#/Vol] 3.8 10*3/uL 2.0-7.7 [facility] Neutrophils/100 WBC (Bld) 50.6 % 47-70 [facility] Potassium [Moles/Vol] 4.1 mmol/L 3.5-5.1 [facility] Protein [Mass/Vol] 8.0 g/dL 6.4-8.2 [facility] Sodium [Moles/Vol] 139 mmol/L 136-145 [facility] WBC (Bld) [#/Vol] 7.4 10*3/uL 4.4-11.0 [facility] Blood erythrocytes count (nu mber/volume)Ordered By: Dr. Espinoza on 06-28-2022 RBC (Bld) [#/Vol] 4.33 10*6/uL 4.2-5.4 [facility] Blood hemoglobin measurement (mass/volume)Ordered By: Dr. Espinoza on 06-28-2022 Hemoglobin (Bld) [Mass/Vol] 11.4 g/dL 12.0-15.0 [facility] Blood lymphocytes/100 leukoc ytesOrdered By: Dr. Espinoza on 06-28-2022 Lymphocytes/100 WBC (Bld) 36.1 % 19-41 [facility] Blood monocytes/100 leukocyt esOrdered By: Dr. Espinoza on 06-28-2022 Monocytes/100 WBC (Bld) 9.8 % 0-[address] [facility] Blood platelet mean volumeOr dered By: Dr. Espinoza on 06-28-2022 Platelet mean volume (Bld) [Entitic vol] 10.1 fL 6.2-12.0 [facility] Determination of erythrocyte mean corpuscular volume (MCV)Ordered By: Dr. Espinoza on 06-28-2022 MCV (RBC) [Entitic vol] 83.6 fL 81-[address] [facility] Hematocrit Auto (Bld) [Volum e fraction]Ordered By: Dr. Espinoza on 06-28-2022 Hematocrit (Bld) [Volume fraction] 36.2 % 37-47 [facility] Laboratory - Chemistry and C hemistry - challengeOrdered By: Dr. Espinoza on 06-28-2022 ALP [Catalytic activity/Vol] 52 U/L 45-117 [facility] ALT [Catalytic activity/Vol] 29 U/L 13-56 [facility] CO2 [Moles/Vol] 28.0 mmol/L 21.0-32.0 [facility] Globulin (S) [Mass/Vol] 4.2 g/dL 2.2-4.2 [facility] Urea nitrogen/Creatinine [Mass ratio] 21.7 mg/mg 10-20 [facility] Laboratory - Hematology and Cell countsOrdered By: Dr. Espinoza on 06-28-2022 Erythrocyte distribution width (RBC) [Entitic vol] 43.9 fL 35.1-43.9 [facility] Erythrocyte distribution width (RBC) [Ratio] 14.4 % 11.6-14.6 [facility] Immature granulocytes/100 WBC (Bld) 0.400 % 0.0-0.9 [facility] Comment on above: IG% - Immature Granu locytes (promyelocytes, myelocytes and metamyelocytes) > 1% indicates that a LEFT SHIFT is Present. MCH (RBC) [Entitic mass] 26.3 pg 27.0-32.0 [facility] Nucleated RBC/100 WBC (Bld) [Ratio] 0 % 0-5 [facility] MCHC Auto (RBC) [Mass/Vol]Or dered By: Dr. Espinoza on 06-28-2022 MCHC (RBC) [Mass/Vol] 31.5 g/dL 32-36 [facility] No Panel InformationOrdered By: Dr. Espinoza on 06-28-2022 Estimated GFR (MDRD) Amer 56 mL/min >60 [facility] Comment on above: GFR Calc Estimated GFR (MDRD) Non-Af Amer 46 mL/min >60 [facility] Comment on above: Non- GFR Calc Thyroid Stimulating Hormone (TSH) 4.74 uIU/mL 0.358-3.74 [facility] Platelets bldOrdered By: Dr. Espinoza on 06-28-2022 Platelets (Bld) [#/Vol] 292 10*3/uL 150-450 [facility] Serum or plasma albumin thiago urement (mass/volume)Ordered By: Dr. Espinoza on 06-28-2022 Albumin [Mass/Vol] 3.8 g/dL 3.2-5.0 [facility] Serum or plasma albumin/glob ulin mass ratioOrdered By: Dr. Espinoza on 06-28-2022 Albumin/Globulin [Mass ratio] 0.9 {ratio} 0.9-2.4 [facility] Serum or plasma calcium thiago urement (mass/volume)Ordered By: Dr. Espinoza on 06-28-2022 Calcium [Mass/Vol] 9.2 mg/dL 8.5-10.1 [facility] Serum or plasma creatinine m easurement (mass/volume)Ordered By: Dr. Espinoza on 06-28-2022 Creatinine [Mass/Vol] 1.29 mg/dL 0.55-1.02 [facility] Comment on above: The validity of the calculated GFR & GFRAA in patients over 70 years has not been determined. Clinical correlation is essential. Serum or plasma urea nitroge n measurement (mass/volume)Ordered By: Dr. Espinoza on 06-28-2022 Urea nitrogen [Mass/Vol] 28 mg/dL 7-18 [facility] Thin prep Papanicolaou smear with manual screeningOrdered By: Dr. Espinoza on 06-28-2022 Thin prep Papanicolaou smear with manual screening 20 U/L 15-37 [facility] Thin prep Papanicolaou smear with manual screening 4 5- [facility] Laboratory - Hematology and Cell countson 05-11-2022 HbA1c (Bld) [Mass fraction] 7.6 % [facility] Basophil percentageon 2021 Bilirubin [Mass/Vol] 0.20 mg/dL 0.20-1.00 [facility] Work Phone: Comment on above: For patients on eltr ombopag therapy, use of [employer] [place] TBIL is not recommended. Chloride [Moles/Vol] 107 mmol/L 98-107 [facility] Work Phone: Glucose [Mass/Vol] 137 mg/dL 74-106 [facility] Work Phone: Comment on above: Fasting Glucose resu lt greater than or equal to 126 mg/dL suggests DIABETES MELLITUS per A.D.A. criteria. Potassium [Moles/Vol] 3.5 mmol/L 3.5-5.1 [facility] Work Phone: Protein [Mass/Vol] 7.2 g/dL 6.4-8.2 [facility] Work Phone: Sodium [Moles/Vol] 142 mmol/L 136-145 [facility] Work Phone: Laboratory - Chemistry and C hemistry - challengeon 02-08-2022 ALP [Catalytic activity/Vol] 65 U/L 45-117 [facility] Work Phone: ALT [Catalytic activity/Vol] 45 U/L 13-56 [facility] Work Phone: CO2 [Moles/Vol] 26.0 mmol/L 21.0-32.0 [facility] Work Phone: Globulin (S) [Mass/Vol] 3.8 g/dL 2.2-4.[address] [facility] Work Phone: Urea nitrogen/Creatinine [Mass ratio] 13.8 mg/mg 10-20 [facility] Work Phone: No Panel Informationon 02-08 Estimated GFR (MDRD) Amer 88 mL/min >60 [facility] Work Phone: Comment on above: GFR Calc Estimated GFR (MDRD) Non-Af Amer 73 mL/min >60 [facility] Work Phone: Comment on above: Non- GFR Calc Hepatitis A IgM Antibody Negative Negative [facility] Work Phone: Hepatitis B Core IgM Antibody Negative Negative [facility] Work Phone: Hepatitis C Antibody (EIA) 0.1 s/co ratio 0.0-0.9 [facility] Work Phone: Hepatitis C Antibody Comment Comment . [facility] Work Phone: Comment on above: NegativeNot infected with HCV, unless recent infection issuspected or other evidence exists to indicate HCVinfection.Performed at: [employer] [id number] Director: Spencer Carbajal PhD, Phone: [phone] Serum or plasma albumin thiago urement (mass/volume)on 02-08-2022 Albumin [Mass/Vol] 3.4 g/dL 3.2-5.0 [facility] Work Phone: Serum or plasma albumin/glob ulin mass ratioon 02-08-2022 Albumin/Globulin [Mass ratio] 0.9 {ratio} 0.9-2.4 [facility] Work Phone: Serum or plasma calcium thiago urement (mass/volume)on 02-08-2022 Calcium [Mass/Vol] 8.0 mg/dL 8.5-10.1 [facility] Work Phone: Serum or plasma creatinine m easurement (mass/volume)on 02-08-2022 Creatinine [Mass/Vol] 0.87 mg/dL 0.55-1.02 [facility] Work Phone: Comment on above: The validity of the calculated GFR & GFRAA in patients over 70 years has not been determined. Clinical correlation is essential. Serum or plasma hepatitis B virus surface antigen detection by immunoassayon 02-08-2022 HBV surface Ag IA Ql Negative Negative [facility] Work Phone: Serum or plasma urea nitroge n measurement (mass/volume)on 02-08-2022 Urea nitrogen [Mass/Vol] 12 mg/dL 7-18 [facility] Work Phone: Thin prep Papanicolaou smear with manual screeningon 02-08-2022 Thin prep Papanicolaou smear with manual screening 25 U/L 15-37 [facility] Work Phone: Thin prep Papanicolaou smear with manual screening 9 5-15 [facility] Work Phone: Absolute lymphocyte counton 02-05-2022 Lymphocytes Auto (Unsp spec) [#/Vol] 2.34 10*3/uL 0.83-4.51 [facility] Work Phone: Basophil percentageon 2021 Basophils/100 WBC (Bld) 0.2 % 0-[address] [facility] Work Phone: Bilirubin [Mass/Vol] 0.30 mg/dL 0.20-1.00 [facility] Work Phone: Comment on above: For patients on eltr ombopag therapy, use of [employer] [place] TBIL is not recommended. Chloride [Moles/Vol] 110 mmol/L 98-107 [facility] Work Phone: Eosinophils/100 WBC (Bld) 4.4 % 0-5 [facility] Work Phone: Glucose [Mass/Vol] 123 mg/dL 74-106 [facility] Work Phone: Comment on above: Fasting Glucose resu lt from 100 to 125 mg/dL suggests IMPAIRED HOMEOSTASIS per A.D.A. criteria. Neutrophils (Bld) [#/Vol] 1.7 10*3/uL 2.0-7.7 [facility] Work Phone: Neutrophils/100 WBC (Bld) 33.8 % 47-70 [facility] Work Phone: Potassium [Moles/Vol] 3.4 mmol/L 3.5-5.1 [facility]: Protein [Mass/Vol] 5.9 g/dL 6.4-8.2 [facility] Work Phone: Sodium [Moles/Vol] 143 mmol/L 136-145 [facility] Work Phone: WBC (Bld) [#/Vol] 5.0 10*3/uL 4.4-11.0 [facility] Work Phone: Blood erythrocytes count (nu mber/volume)on 02-05-2022 RBC (Bld) [#/Vol] 3.91 10*6/uL 4.2-5.4 [facility] Work [facility]: Blood hemoglobin measurement (mass/volume)on 02-05-2022 Hemoglobin (Bld) [Mass/Vol] 10.0 g/dL 12.0-15.0 [facility] Work Phone: Blood lymphocytes/100 leukoc yteson 02-05-2022 Lymphocytes/100 WBC (Bld) 47.3 % 19-41 [facility] Work Phone: Blood monocytes/100 leukocyt eson 02-05-2022 Monocytes/100 WBC (Bld) 13.9 % 0-[address] [facility] Work Phone: Blood platelet mean volumeon 02-05-2022 Platelet mean volume (Bld) [Entitic vol] 10.1 fL 6.2-12.0 [facility] Work Phone: Determination of erythrocyte mean corpuscular volume (MCV)on 02-05-2022 MCV (RBC) [Entitic vol] 82.6 fL 81-[address] [facility] Work Phone: Direct bilirubinon 2 Bilirubin.direct [Mass/Vol] 0.15 mg/dL 0.00-0.30 [facility] Work Phone: Glucose Glucometer (BldC) [M ass/Vol]on 02-05-2022 Glucose [Mass/Vol] 133 mg/dL 74-106 [facility] Work Phone: Comment on above: MANAGEMENT OF PATIEN T CARE PER NURSING PROTOCOL Hematocrit Auto (Bld) [Volum e fraction]on 02-05-2022 Hematocrit (Bld) [Volume fraction] 32.3 % 37-47 [facility] Work Phone: Laboratory - Chemistry and C hemistry - challengeon 02-05-2022 ALP [Catalytic activity/Vol] 50 U/L 45-117 [facility] Work Phone: ALT [Catalytic activity/Vol] 72 U/L 13-56 [facility] Work Phone: CO2 [Moles/Vol] 30.0 mmol/L 21.0-32.0 [facility] Work Phone: Globulin (S) [Mass/Vol] 3.2 g/dL 2.2-4.[address] [facility] Work Phone: Urea nitrogen/Creatinine [Mass ratio] 12.4 mg/mg 10-20 [facility] Work Phone: Laboratory - Hematology and Cell countson 02-05-2022 Erythrocyte distribution width (RBC) [Entitic vol] 41.7 fL 35.1-43.9 [facility] Work Phone: Erythrocyte distribution width (RBC) [Ratio] 14.0 % 11.6-14.6 [facility] Work Phone: Immature granulocytes/100 WBC (Bld) 0.400 % 0.0-0.9 [facility] Work Phone: Comment on above: IG% - Immature Granu locytes (promyelocytes, myelocytes and metamyelocytes) > 1% indicates that a LEFT SHIFT is Present. MCH (RBC) [Entitic mass] 25.6 pg 27.0-32.0 [facility] Work Phone: Nucleated RBC/100 WBC (Bld) [Ratio] 0 % 0-5 [facility] Work Phone: MCHC Auto (RBC) [Mass/Vol]on 02-05-2022 MCHC (RBC) [Mass/Vol] 31.0 g/dL 32-36 [facility] Work Phone: Comment on above: Delta: 33.0 on 02/04 No Panel Informationon 02-05 Estimated Creatinine Clearance Calc 72.72 ml/min [facility] Work Phone: Estimated GFR (MDRD) Amer 86 mL/min >60 [facility] Work Phone: Comment on above: GFR Calc Estimated GFR (MDRD) Non-Af Amer 71 mL/min >60 [facility] Work Phone: Comment on above: Non- GFR Calc Platelets bldon 02-05-2022 Platelets (Bld) [#/Vol] 190 10*3/uL 150-450 [facility] Work Phone: Serum or plasma albumin thiago urement (mass/volume)on 02-05-2022 Albumin [Mass/Vol] 2.7 g/dL 3.2-5.0 [facility] Work Phone: Serum or plasma calcium thiago urement (mass/volume)on 02-05-2022 Calcium [Mass/Vol] 7.8 mg/dL 8.5-10.1 [facility] Work Phone: Serum or plasma creatinine m easurement (mass/volume)on 02-05-2022 Creatinine [Mass/Vol] 0.89 mg/dL 0.55-1.02 [facility] Work Phone: Comment on above: The validity of the calculated GFR & GFRAA in patients over 70 years has not been determined. Clinical correlation is essential. Serum or plasma urea nitroge n measurement (mass/volume)on 02-05-2022 Urea nitrogen [Mass/Vol] 11 mg/dL 7-18 [facility] Work Phone: [phone] Thin prep Papanicolaou smear with manual screeningon 02-05-2022 Thin prep Papanicolaou smear with manual screening 53 U/L 15-37 [facility] Work Phone: Thin prep Papanicolaou smear with manual screening 3 5-15 [facility] Work Phone: Iron measurement (mass/mass) on 02-04-2022 Iron (Unsp spec) [Mass/Mass] 29 ug/dL 50-170 [facility] Work Phone: [phone] No Panel Informationon 02-04 Total Iron Binding Capacity 373 ug/dL 250-450 [facility] Work Phone: [phone] Serum or plasma albumin/glob ulin mass ratioon 02-04-2022 Albumin/Globulin [Mass ratio] 0.9 {ratio} 0.9-2.4 [facility] Work Phone: Serum or plasma ferritin lizette surement (mass/volume)on 02-04-2022 Ferritin [Mass/Vol] 36 ng/mL 8-252 [facility] Work Phone: Serum or plasma iron saturat ion measurement (mass fraction)on 02-04-2022 Iron saturation [Mass fraction] 7.8 % 15.0-55.0 [facility] Work Phone: Absolute lymphocyte counton 02-03-2022 Lymphocytes Auto (Unsp spec) [#/Vol] 0.92 10*3/uL 0.83-4.51 [facility] Work Phone: Basophil percentageon 2021 Basophil percentage 0-5 SEEN /hpf 0-5 [facility] Work Phone: Basophils/100 WBC (Bld) 0.1 % 0-[address] [facility] Work Phone: Bilirubin [Mass/Vol] 0.50 mg/dL 0.20-1.00 [facility] Work Phone: Comment on above: For patients on eltr ombopag therapy, use of [employer] [place] TBIL is not recommended. Chloride [Moles/Vol] 106 mmol/L 98-107 [facility] Work Phone: Eosinophils/100 WBC (Bld) 2.0 % 0-5 [facility] Work Phone: [phone] Glucose [Mass/Vol] 141 mg/dL 74-106 [facility] Work Phone: Comment on above: Fasting Glucose resu lt greater than or equal to 126 mg/dL suggests DIABETES MELLITUS per A.D.A. criteria. Lactate [Moles/Vol] 1.3 mmol/L 0.4-2.0 [facility] Work Phone: [phone] Neutrophils (Bld) [#/Vol] 7.0 10*3/uL 2.0-7.7 [facility] Work Phone: [phone] Neutrophils/100 WBC (Bld) 81.0 % 47-70 [facility] Work Phone: [phone] Potassium [Moles/Vol] 4.1 mmol/L 3.5-5.1 [facility] Work Phone: [phone] Protein [Mass/Vol] 7.2 g/dL 6.4-8.2 [facility] Work Phone: [phone] Sodium [Moles/Vol] 140 mmol/L 136-145 [facility] Work Phone: [phone] WBC (Bld) [#/Vol] 8.6 10*3/uL 4.4-11.0 [facility] Work Phone: [phone] Beta hCG serum qualon 2021 Beta HCG ( test) Ql Negative [facility] Work Phone: [phone] Bilirubin Test strip Ql (U)o n 02-03-2022 Bilirubin Ql (U) Negative Negative [facility] Work Phone: [phone] Blood erythrocytes count (nu mber/volume)on 02-03-2022 RBC (Bld) [#/Vol] 4.48 10*6/uL 4.2-5.4 [facility] Work Phone: Blood hemoglobin measurement (mass/volume)on 02-03-2022 Hemoglobin (Bld) [Mass/Vol] 11.5 g/dL 12.0-15.0 [facility] Work Phone: Blood lymphocytes/100 leukoc yteson 02-03-2022 Lymphocytes/100 WBC (Bld) 10.7 % 19-41 [facility] Work Phone: Blood monocytes/100 leukocyt eson 02-03-2022 Monocytes/100 WBC (Bld) 5.9 % 0-[address] [facility] Work Phone: Blood platelet mean volumeon 02-03-2022 Platelet mean volume (Bld) [Entitic vol] 10.0 fL 6.2-12.0 [facility] Work Phone: Determination of erythrocyte mean corpuscular volume (MCV)on 02-03-2022 MCV (RBC) [Entitic vol] 80.4 fL 81-[address] [facility] Work Phone: Hematocrit Auto (Bld) [Volum e fraction]on 02-03-2022 Hematocrit (Bld) [Volume fraction] 36.0 % 37-47 [facility] Work Phone: INR in Blood by Coagulation assayon 02-03-2022 INR Coag (Bld) [Relative time] 1.1 {INR} [facility] Work Phone: Ketones Test strip Ql (U)on 02-03-2022 Ketones Ql (U) 5 mg/dl Negative [facility] Work Phone: Laboratory - Chemistry and C hemistry - challengeon 02-03-2022 ALP [Catalytic activity/Vol] 50 U/L 45-117 [facility] Work Phone: ALT [Catalytic activity/Vol] 25 U/L 13-56 [facility] Work Phone: CO2 [Moles/Vol] 24.0 mmol/L 21.0-32.0 [facility] Work Phone: [phone] Globulin (S) [Mass/Vol] 3.7 g/dL 2.2-4.[address] [facility] Work Phone: [phone] Lipase [Catalytic activity/Vol] 382 U/L 73-393 [facility] Work Phone: [phone] Urea nitrogen/Creatinine [Mass ratio] 19.4 mg/mg 10-20 [facility] Work Phone: [phone] Laboratory - Coagulationon 1 04-05-2021 aPTT Coag (Bld) [Time] 28.7 s 24.1-36.2 [facility] Work Phone: PT Coag (PPP) [Time] 13.5 s 11.7-14.9 [facility] Work Phone: [phone] Laboratory - Hematology and Cell countson 02-03-2022 Erythrocyte distribution width (RBC) [Entitic vol] 38.9 fL 35.1-43.9 [facility] Work Phone: [phone] Erythrocyte distribution width (RBC) [Ratio] 13.4 % 11.6-14.6 [facility] Work Phone: [phone] Immature granulocytes/100 WBC (Bld) 0.300 % 0.0-0.9 [facility] Work Phone: Comment on above: IG% - Immature Granu locytes (promyelocytes, myelocytes and metamyelocytes) > 1% indicates that a LEFT SHIFT is Present. MCH (RBC) [Entitic mass] 25.7 pg 27.0-32.0 [facility] Work Phone: [phone] Nucleated RBC/100 WBC (Bld) [Ratio] 0 % 0-5 [facility] Work Phone: MCHC Auto (RBC) [Mass/Vol]on 02-03-2022 MCHC (RBC) [Mass/Vol] 31.9 g/dL 32-36 [facility] Work Phone: Mucus LM Ql (Urine sed)on Mucus Ql (Urine sed) 0 SEEN /hpf [facility] Work Phone: Nitrite Test strip Ql (U)on 02-03-2022 Nitrite Ql (U) Negative Negative [facility] Work Phone: No Panel Informationon 02-03 Estimated Creatinine Clearance Calc 73.55 ml/min [facility] Work Phone: Estimated GFR (MDRD) Amer 87 mL/min >60 [facility] Work Phone: Comment on above: GFR Calc Estimated GFR (MDRD) Non-Af Amer 72 mL/min >60 [facility] Work Phone: Comment on above: Non- GFR Calc Platelets bldon 02-03-2022 Platelets (Bld) [#/Vol] 222 10*3/uL 150-450 [facility] Work Phone: Protein Test strip Ql (U)on 02-03-2022 Protein Ql (U) 30 mg/dl Negative [facility] Work Phone: Serum heterophile antibody d etectionon 02-03-2022 Heterophile Ab Ql (S) Negative Negative [facility] Work Phone: Serum or plasma albumin thiago urement (mass/volume)on 02-03-2022 Albumin [Mass/Vol] 3.5 g/dL 3.2-5.0 [facility] Work Phone: Serum or plasma albumin/glob ulin mass ratioon 02-03-2022 Albumin/Globulin [Mass ratio] 0.9 {ratio} 0.9-2.4 [facility] Work Phone: Serum or plasma calcium thiago urement (mass/volume)on 02-03-2022 Calcium [Mass/Vol] 8.8 mg/dL 8.5-10.1 [facility] Work Phone: Serum or plasma creatinine m easurement (mass/volume)on 02-03-2022 Creatinine [Mass/Vol] 0.88 mg/dL 0.55-1.02 [facility] Work Phone: Comment on above: The validity of the calculated GFR & GFRAA in patients over 70 years has not been determined. Clinical correlation is essential. Serum or plasma urea nitroge n measurement (mass/volume)on 02-03-2022 Urea nitrogen [Mass/Vol] 17 mg/dL 7-18 [facility] Work Phone: Serum procalcitonin measurem enton 02-03-2022 Procalcitonin [Mass/Vol] 0.08 ng/mL 0.00-0.09 [facility] Work Phone: Comment on above: A procalcitonin (PCT ) level above 2.0 ng/mL on the first day of ICU admission is associated with a high risk for progression to severe sepsis and/or septic shock. A PCT level below 0.5 ng/mL on the first day of ICU admission is associated with a low risk for progression to severe and/or septic shock. Note: Concentrations <0.5 ng/mL do not exclude an infection on account of localized infections (without systemic signs) which can be associated with such low concentrations, or a systemic infection in its initial stages (<6 hours). Furthermore, increased procalcitonin can occur without infection. PCT concentrations between 0.5 and 2.0 ng/mL should be interpreted taking into account the patient's history. It is recommended to retest PCT within 6-24 hours if any concentrations <2 ng/mL are obtained. Squamous epithelial cells de tection in urine sediment by light microscopyon 02-03-2022 Epithelial cells.squamous LM Ql (Urine sed) 0-5 SEEN /hpf 5-10 [facility] Work Phone: Thin prep Papanicolaou smear with manual screeningon 02-03-2022 Thin prep Papanicolaou smear with manual screening 23 U/L 15-37 [facility] Work Phone: Thin prep Papanicolaou smear with manual screening 10 5-15 [facility] Work Phone: Urine blood detectionon 01-25 RBC Ql (U) Negative Negative [facility] Work Phone: RBC Ql (U) 0 SEEN /hpf 0-5 [facility] Work Phone: Urine clarityon 02-03-2022 Clarity (U) Sl. Cloudy Clear [facility] Work Phone: Urine color determinationon 02-03-2022 Color (U) Yellow Yellow [facility] Work Phone: Urine glucose detectionon Glucose Ql (U) Normal mg/dl Normal [facility] Work Phone: Urine leukocyte esterase det ection by dipstickon 02-03-2022 Leukocyte esterase Test strip Ql (U) 25 /ul Negative [facility] Work Phone: Urine pHon 02-03-2022 pH (U) 8.0 [pH] 5.0 - 8.0 [facility] Work Phone: Urine sediment bacteria coun t by microscopy (number/high power field)on 02-03-2022 Bacteria LM.HPF (Urine sed) [#/Area] RARE /hpf None Seen [facility] Work Phone: Urine specific gravity measu rementon 02-03-2022 Specific gravity (U) [Rel density] 1.010 1.002-1.030 [facility] Work Phone: Urobilinogen Auto test strip Ql (U)on 02-03-2022 Urobilinogen Ql (U) Normal mg/dl Normal [facility] Work Phone: Absolute lymphocyte counton 12-21-2021 Lymphocytes Auto (Unsp spec) [#/Vol] 2.78 10*3/uL 0.83-4.51 [facility] Work Phone: Basophil percentageon 2021 Basophils/100 WBC (Bld) 0.5 % 0-[address] [facility] Work Phone: Bilirubin [Mass/Vol] 0.40 mg/dL 0.20-1.00 [facility] Work Phone: [phone] Comment on above: For patients on eltr ombopag therapy, use of Dimension [place] TBIL is not recommended. Chloride [Moles/Vol] 106 mmol/L 98-107 [facility] Work Phone: [phone] Eosinophils/100 WBC (Bld) 2.2 % 0-5 [facility] Work Phone: [phone] Glucose [Mass/Vol] 145 mg/dL 74-106 [facility] Work Phone: Comment on above: Fasting Glucose resu lt greater than or equal to 126 mg/dL suggests DIABETES MELLITUS per A.D.A. criteria. Neutrophils (Bld) [#/Vol] 4.7 10*3/uL 2.0-7.7 [facility] Work Phone: [phone] Neutrophils/100 WBC (Bld) 56.6 % 47-70 [facility] Work Phone: [phone] Potassium [Moles/Vol] 4.2 mmol/L 3.5-5.1 [facility] Work Phone: [phone] Protein [Mass/Vol] 7.9 g/dL 6.4-8.2 [facility] Work Phone: [phone] Sodium [Moles/Vol] 141 mmol/L 136-145 [facility] Work Phone: [phone] WBC (Bld) [#/Vol] 8.2 10*3/uL 4.4-11.0 [facility] Work Phone: [phone] Blood erythrocytes count (nu mber/volume)on 12-21-2021 RBC (Bld) [#/Vol] 4.41 10*6/uL 4.2-5.4 [facility] Work Phone: [phone] Blood hemoglobin measurement (mass/volume)on 12-21-2021 Hemoglobin (Bld) [Mass/Vol] 11.8 g/dL 12.0-15.0 [facility] Work Phone: Blood lymphocytes/100 leukoc yteson 12-21-2021 Lymphocytes/100 WBC (Bld) 33.7 % 19-41 [facility] Work Phone: Blood monocytes/100 leukocyt eson 12-21-2021 Monocytes/100 WBC (Bld) 6.8 % 0-[address] [facility] Work Phone: Blood platelet mean volumeon 12-21-2021 Platelet mean volume (Bld) [Entitic vol] 10.6 fL 6.2-12.0 [facility] Work Phone: Determination of erythrocyte mean corpuscular volume (MCV)on 12-21-2021 MCV (RBC) [Entitic vol] 80.7 fL 81-[address] [facility] Work Phone: Hematocrit Auto (Bld) [Volum e fraction]on 12-21-2021 Hematocrit (Bld) [Volume fraction] 35.6 % 37-47 [facility] Work Phone: Laboratory - Chemistry and C hemistry - challengeon 12-21-2021 ALP [Catalytic activity/Vol] 49 U/L 45-117 [facility] Work Phone: ALT [Catalytic activity/Vol] 25 U/L 13-56 [facility] Work Phone: CO2 [Moles/Vol] 27.0 mmol/L 21.0-32.0 [facility] Work Phone: Globulin (S) [Mass/Vol] 4.1 g/dL 2.2-4.[address] [facility] Work Phone: Urea nitrogen/Creatinine [Mass ratio] 21.9 mg/mg 10-20 [facility] Work Phone: Laboratory - Hematology and Cell countson 12-21-2021 Erythrocyte distribution width (RBC) [Entitic vol] 38.6 fL 35.1-43.9 [facility]: Erythrocyte distribution width (RBC) [Ratio] 13.3 % 11.6-14.6 [facility] Work Phone: Immature granulocytes/100 WBC (Bld) 0.200 % 0.0-0.9 [facility] Work Phone: Comment on above: IG% - Immature Granu locytes (promyelocytes, myelocytes and metamyelocytes) > 1% indicates that a LEFT SHIFT is Present. MCH (RBC) [Entitic mass] 26.8 pg 27.0-32.0 [facility] Work Phone: Nucleated RBC/100 WBC (Bld) [Ratio] 0 % 0-5 [facility] Work Phone: MCHC Auto (RBC) [Mass/Vol]on 12-21-2021 MCHC (RBC) [Mass/Vol] 33.1 g/dL 32-36 [facility] Work Phone: No Panel Informationon 12-21 Estimated GFR (MDRD) Amer 79 mL/min >60 [facility] Work Phone: Comment on above: GFR Calc Estimated GFR (MDRD) Non-Af Amer 65 mL/min >60 [facility] Work Phone: Comment on above: Non- GFR Calc Thyroid Stimulating Hormone (TSH) 2.66 uIU/mL 0.358-3.74 [facility] Work Phone: Platelets bldon 12-21-2021 Platelets (Bld) [#/Vol] 285 10*3/uL 150-450 [facility] Work Phone: Serum or plasma albumin thiago urement (mass/volume)on 12-21-2021 Albumin [Mass/Vol] 3.8 g/dL 3.2-5.0 [facility] Work Phone: Serum or plasma albumin/glob ulin mass ratioon 12-21-2021 Albumin/Globulin [Mass ratio] 0.9 {ratio} 0.9-2.4 [facility] Work Phone: Serum or plasma calcium thiago urement (mass/volume)on 12-21-2021 Calcium [Mass/Vol] 9.2 mg/dL 8.5-10.1 [facility] Work Phone: Serum or plasma creatinine m easurement (mass/volume)on 12-21-2021 Creatinine [Mass/Vol] 0.96 mg/dL 0.55-1.02 [facility] Work Phone: Comment on above: The validity of the calculated GFR & GFRAA in patients over 70 years has not been determined. Clinical correlation is essential. Serum or plasma urea nitroge n measurement (mass/volume)on 12-21-2021 Urea nitrogen [Mass/Vol] 21 mg/dL 7-18 [facility] Work Phone: Thin prep Papanicolaou smear with manual screeningon 12-21-2021 Thin prep Papanicolaou smear with manual screening 20 U/L 15-37 [facility] Work Phone: Thin prep Papanicolaou smear with manual screening 8 5-15 [facility] Work Phone: Laboratory - Chemistry and C hemistry - challengeon 10-20-2021 Free T4 [Mass/Vol] 0.84 ng/dL 0.76-1.46 [facility] Work Phone: No Panel Informationon 10-20 Thyroid Stimulating Hormone (TSH) 2.21 uIU/mL 0.358-3.74 [facility] Work Phone: Whole blood hemoglobin A1c/t otal hemoglobin ratio (mass fraction)on 10-20-2021 HbA1c (Bld) [Mass fraction] 6.6 % 3.8-5.6 [facility] Work Phone: Comment on above: Normal < 5.7 % Predi abetic 5.7 - 6.4 % Diabetic >or= 6.5 % Please note range changes. Absolute lymphocyte counton 09-21-2021 Lymphocytes Auto (Unsp spec) [#/Vol] 2.61 10*3/uL 0.83-4.51 [facility] Work Phone: Basophil percentageon 2021 Basophils/100 WBC (Bld) 0.5 % 0-[address] [facility] Work Phone: Bilirubin [Mass/Vol] 0.60 mg/dL 0.20-1.00 [facility] Work Phone: Comment on above: For patients on eltr ombopag therapy, use of [employer] [place] TBIL is not recommended. Chloride [Moles/Vol] 105 mmol/L 98-107 [facility] Work Phone: Eosinophils/100 WBC (Bld) 2.1 % 0-5 [facility] Work Phone: Glucose [Mass/Vol] 143 mg/dL 74-106 [facility] Work Phone: Comment on above: Fasting Glucose resu lt greater than or equal to 126 mg/dL suggests DIABETES MELLITUS per A.D.A. criteria. Neutrophils (Bld) [#/Vol] 4.1 10*3/uL 2.0-7.7 [facility] Work Phone: Neutrophils/100 WBC (Bld) 54.2 % 47-70 [facility] Work Phone: Potassium [Moles/Vol] 4.1 mmol/L 3.5-5.1 [facility] Work Phone: [phone] Protein [Mass/Vol] 7.5 g/dL 6.4-8.2 [facility] Work Phone: Sodium [Moles/Vol] 139 mmol/L 136-145 [facility] Work Phone: WBC (Bld) [#/Vol] 7.7 10*3/uL 4.4-11.0 [facility] Work Phone: Blood erythrocytes count (nu mber/volume)on 09-21-2021 RBC (Bld) [#/Vol] 4.25 10*6/uL 4.2-5.4 [facility] Work Phone: Blood hemoglobin measurement (mass/volume)on 09-21-2021 Hemoglobin (Bld) [Mass/Vol] 11.5 g/dL 12.0-15.0 [facility] Work Phone: Blood lymphocytes/100 leukoc yteson 09-21-2021 Lymphocytes/100 WBC (Bld) 34.1 % 19-41 [facility] Work Phone: Blood monocytes/100 leukocyt eson 09-21-2021 Monocytes/100 WBC (Bld) 8.6 % 0-[address] [facility] Work Phone: Blood platelet mean volumeon 09-21-2021 Platelet mean volume (Bld) [Entitic vol] 9.9 fL 6.2-12.0 [facility] Work Phone: Determination of erythrocyte mean corpuscular volume (MCV)on 09-21-2021 MCV (RBC) [Entitic vol] 81.6 fL 81-[address] [facility] Work Phone: Hematocrit Auto (Bld) [Volum e fraction]on 09-21-2021 Hematocrit (Bld) [Volume fraction] 34.7 % 37-47 [facility] Work Phone: Laboratory - Chemistry and C hemistry - challengeon 09-21-2021 ALP [Catalytic activity/Vol] 45 U/L 45-117 [facility] Work Phone: ALT [Catalytic activity/Vol] 28 U/L 13-56 [facility] Work Phone: CO2 [Moles/Vol] 26.0 mmol/L 21.0-32.0 [facility] Work Phone: Globulin (S) [Mass/Vol] 3.8 g/dL 2.2-4.[address] [facility] Work Phone: Urea nitrogen/Creatinine [Mass ratio] 12.8 mg/mg 10-20 [facility] Work Phone: Laboratory - Hematology and Cell countson 09-21-2021 Erythrocyte distribution width (RBC) [Entitic vol] 38.6 fL 35.1-43.9 [facility] Work Phone: Erythrocyte distribution width (RBC) [Ratio] 13.0 % 11.6-14.6 [facility] Work Phone: Immature granulocytes/100 WBC (Bld) 0.500 % 0.0-0.9 [facility] Work Phone: Comment on above: IG% - Immature Granu locytes (promyelocytes, myelocytes and metamyelocytes) > 1% indicates that a LEFT SHIFT is Present. MCH (RBC) [Entitic mass] 27.1 pg 27.0-32.0 [facility] Work Phone: Nucleated RBC/100 WBC (Bld) [Ratio] 0 % 0-5 [facility] Work Phone: MCHC Auto (RBC) [Mass/Vol]on 09-21-2021 MCHC (RBC) [Mass/Vol] 33.1 g/dL 32-36 [facility] Work Phone: No Panel Informationon 09-21 Estimated GFR (MDRD) Amer 68 mL/min >60 [facility] Work Phone: Comment on above: GFR Calc Estimated GFR (MDRD) Non-Af Amer 56 mL/min >60 [facility] Work Phone: Comment on above: Non- GFR Calc Thyroid Stimulating Hormone (TSH) 2.98 uIU/mL 0.358-3.74 [facility] Work Phone: Vitamin D 25-Hydroxy 36.2 ng/mL [facility] Work Phone: Comment on above: Vitamin D 25(OH) Sta tus Range Deficiency <20 ng/mL (50nmol/L) Insufficiency 20 - 30 ng/mL (50 - 75 nmol/L) Sufficiency 30 - 100 ng/mL (75 - 250 nmol/L) Toxicity >100 ng/mL (>250 nmol/L) Platelets bldon 06-28-2022 Platelets (Bld) [#/Vol] 274 10*3/uL 150-450 [facility] Work Phone: Serum or plasma albumin thiago urement (mass/volume)on 09-21-2021 Albumin [Mass/Vol] 3.7 g/dL 3.2-5.0 [facility] Work Phone: Serum or plasma albumin/glob ulin mass ratioon 09-21-2021 Albumin/Globulin [Mass ratio] 1.0 {ratio} 0.9-2.4 [facility] Work Phone: Serum or plasma calcium thiago urement (mass/volume)on 09-21-2021 Calcium [Mass/Vol] 8.7 mg/dL 8.5-10.1 [facility] Work Phone: Serum or plasma creatinine m easurement (mass/volume)on 09-21-2021 Creatinine [Mass/Vol] 1.09 mg/dL 0.55-1.02 [facility] Work Phone: Comment on above: The validity of the calculated GFR & GFRAA in patients over 70 years has not been determined. Clinical correlation is essential. Serum or plasma urea nitroge n measurement (mass/volume)on 09-21-2021 Urea nitrogen [Mass/Vol] 14 mg/dL 7-18 [facility] Work Phone: Thin prep Papanicolaou smear with manual screeningon 09-21-2021 Thin prep Papanicolaou smear with manual screening 27 U/L 15-37 [facility] Work Phone: Thin prep Papanicolaou smear with manual screening 8 5-15 [facility] Work Phone: Absolute lymphocyte counton 08-25-2021 Lymphocytes Auto (Unsp spec) [#/Vol] 2.35 10*3/uL 0.83-4.51 [facility] Work Phone: Basophil percentageon 2021 Basophils/100 WBC (Bld) 0.4 % 0-[address] [facility] Work Phone: Bilirubin [Mass/Vol] 0.40 mg/dL 0.20-1.00 [facility] Work Phone: Comment on above: For patients on eltr ombopag therapy, use of [employer] [place] TBIL is not recommended. Chloride [Moles/Vol] 106 mmol/L 98-107 [facility] Work Phone: Eosinophils/100 WBC (Bld) 1.5 % 0-5 [facility] Work Phone: Glucose [Mass/Vol] 163 mg/dL 74-106 [facility] Work Phone: Comment on above: Fasting Glucose resu lt greater than or equal to 126 mg/dL suggests DIABETES MELLITUS per A.D.A. criteria. Neutrophils (Bld) [#/Vol] 5.7 10*3/uL 2.0-7.7 [facility] Work Phone: Neutrophils/100 WBC (Bld) 62.9 % 47-70 [facility] Work Phone: Potassium [Moles/Vol] 4.5 mmol/L 3.5-5.1 [facility] Work Phone: Protein [Mass/Vol] 8.2 g/dL 6.4-8.2 [facility] Work Phone: Sodium [Moles/Vol] 139 mmol/L 136-145 [facility] Work Phone: WBC (Bld) [#/Vol] 9.1 10*3/uL 4.4-11.0 [facility] Work Phone: Blood erythrocytes count (nu mber/volume)on 08-25-2021 RBC (Bld) [#/Vol] 4.49 10*6/uL 4.2-5.4 [facility] Work Phone: Blood hemoglobin measurement (mass/volume)on 08-25-2021 Hemoglobin (Bld) [Mass/Vol] 12.1 g/dL 12.0-15.0 [facility] Work Phone: Blood lymphocytes/100 leukoc yteson 08-25-2021 Lymphocytes/100 WBC (Bld) 25.8 % 19-41 [facility] Work Phone: Blood monocytes/100 leukocyt eson 08-25-2021 Monocytes/100 WBC (Bld) 8.9 % 0-[address] [facility] Work Phone: Blood platelet mean volumeon 08-25-2021 Platelet mean volume (Bld) [Entitic vol] 10.4 fL 6.2-12.0 [facility] Work Phone: Culture, urineon 08-25-2021 Bacteria identified Cx Nom (U) Mixed Gram Pos & Gram Neg Org [facility] Work Phone: Determination of erythrocyte mean corpuscular volume (MCV)on 08-25-2021 MCV (RBC) [Entitic vol] 83.3 fL 81-[address] [facility] Work Phone: Erythrocyte sedimentation ra david 08-25-2021 ESR (Bld) [Velocity] 39 mm[facility]h 0-30 [facility] Work [facility]: Hematocrit Auto (Bld) [Volum e fraction]on 08-25-2021 Hematocrit (Bld) [Volume fraction] 37.4 % 37-47 [facility] Work Phone: Laboratory - Chemistry and C hemistry - challengeon 08-25-2021 ALP [Catalytic activity/Vol] 44 U/L 45-117 [facility] Work Phone: ALT [Catalytic activity/Vol] 38 U/L 13-56 [facility] Work Phone: CO2 [Moles/Vol] 22.0 mmol/L 21.0-32.0 [facility] Work Phone: Globulin (S) [Mass/Vol] 4.3 g/dL 2.2-4.[address] [facility] Work Phone: Urea nitrogen/Creatinine [Mass ratio] 26.5 mg/mg 10-20 [facility] Work Phone: Laboratory - Hematology and Cell countson 08-25-2021 Erythrocyte distribution width (RBC) [Entitic vol] 39.4 fL 35.1-43.9 [facility] Work Phone: Erythrocyte distribution width (RBC) [Ratio] 13.1 % 11.6-14.6 [facility] Work Phone: Immature granulocytes/100 WBC (Bld) 0.500 % 0.0-0.9 [facility] Work Phone: Comment on above: IG% - Immature Granu locytes (promyelocytes, myelocytes and metamyelocytes) > 1% indicates that a LEFT SHIFT is Present. MCH (RBC) [Entitic mass] 26.9 pg 27.0-32.0 [facility] Work Phone: Nucleated RBC/100 WBC (Bld) [Ratio] 0 % 0-5 [facility] Work Phone: MCHC Auto (RBC) [Mass/Vol]on 08-25-2021 MCHC (RBC) [Mass/Vol] 32.4 g/dL 32-36 [facility] Work Phone: No Panel Informationon 08-25 Estimated GFR (MDRD) Amer 77 mL/min >60 [facility] Work Phone: Comment on above: GFR Calc Estimated GFR (MDRD) Non-Af Amer 63 mL/min >60 [facility] Work Phone: Comment on above: Non- GFR Calc Thyroid Stimulating Hormone (TSH) 2.17 uIU/mL 0.358-3.74 [facility] Work Phone: Platelets bldon 08-25-2021 Platelets (Bld) [#/Vol] 293 10*3/uL 150-450 [facility] Work Phone: Serum or plasma C reactive p rotein measurement (mass/volume)on 08-25-2021 CRP [Mass/Vol] mg/L 0.0-3.0 [facility] Work Phone: Comment on above: C-Reactive Protein ( CRP) provides useful information for thediagnosis, therapy and monitoring of inflammatory processesand associated diseases. For the evaluation of Relative Riskfor Cardiovascular Disease, a High Sensitivity CRP (HSCRP)should be ordered. Serum or plasma albumin thiago urement (mass/volume)on 08-25-2021 Albumin [Mass/Vol] 3.9 g/dL 3.2-5.0 [facility] Work Phone: Serum or plasma albumin/glob ulin mass ratioon 08-25-2021 Albumin/Globulin [Mass ratio] 0.9 {ratio} 0.9-2.4 [facility] Work Phone: Serum or plasma calcium thiago urement (mass/volume)on 08-25-2021 Calcium [Mass/Vol] 9.4 mg/dL 8.5-10.1 [facility] Work Phone: Serum or plasma creatinine m easurement (mass/volume)on 08-25-2021 Creatinine [Mass/Vol] 0.98 mg/dL 0.55-1.02 [facility] Work Phone: Comment on above: The validity of the calculated GFR & GFRAA in patients over 70 years has not been determined. Clinical correlation is essential. Serum or plasma urea nitroge n measurement (mass/volume)on 08-25-2021 Urea nitrogen [Mass/Vol] 26 mg/dL 7-18 [facility] Work Phone: Thin prep Papanicolaou smear with manual screeningon 08-25-2021 Thin prep Papanicolaou smear with manual screening 31 U/L 15-37 [facility] Work Phone: Thin prep Papanicolaou smear with manual screening 11 5-15 [facility] Work Phone: No Panel Informationon 07-22 Homocysteine 7.4 umol/L 3.2-10.7 [facility] Work Phone: Serum or plasma methylmalona te measurement (moles/volume)on 07-22-2021 Methylmalonate [Moles/Vol] 819 nmol/L 0-378 [facility] Work Phone: Comment on above: Performed at: [address] [id number] Director: Pauline Yang MD, Phone: [phone] Absolute lymphocyte counton 07-20-2021 Lymphocytes Auto (Unsp spec) [#/Vol] 2.36 10*3/uL 0.83-4.51 [facility] Work Phone: Basophil percentageon 2021 Basophils/100 WBC (Bld) 0.4 % 0-[address] [facility] Work Phone: [phone] Eosinophils/100 WBC (Bld) 2.3 % 0-5 [facility] Work Phone: Neutrophils (Bld) [#/Vol] 3.7 10*3/uL 2.0-7.7 [facility] Work Phone: Neutrophils/100 WBC (Bld) 54.5 % 47-70 [facility] Work Phone: [phone] WBC (Bld) [#/Vol] 6.9 10*3/uL 4.4-11.0 [facility] Work Phone: Blood erythrocytes count (nu mber/volume)on 07-20-2021 RBC (Bld) [#/Vol] 4.01 10*6/uL 4.2-5.4 [facility]: Blood hemoglobin measurement (mass/volume)on 07-20-2021 Hemoglobin (Bld) [Mass/Vol] 10.9 g/dL 12.0-15.0 [facility] Work Phone: [phone] Blood lymphocytes/100 leukoc yteson 07-20-2021 Lymphocytes/100 WBC (Bld) 34.4 % 19-41 [facility] Work Phone: Blood monocytes/100 leukocyt eson 07-20-2021 Monocytes/100 WBC (Bld) 8.3 % 0-[address] [facility] Work Phone: Blood platelet mean volumeon 07-20-2021 Platelet mean volume (Bld) [Entitic vol] 10.5 fL 6.2-12.0 [facility] Work Phone: Determination of erythrocyte mean corpuscular volume (MCV)on 07-20-2021 MCV (RBC) [Entitic vol] 83.5 fL 81-[address] [facility] Work Phone: Hematocrit Auto (Bld) [Volum e fraction]on 07-20-2021 Hematocrit (Bld) [Volume fraction] 33.5 % 37-47 [facility] Work Phone: Hemoglobin in reticulocytes (mass per reticulocyte)on 07-20-2021 Hemoglobin (Reticulocytes) [Entitic mass] 31.0 pg 30-35 [facility] Work Phone: Iron measurement (mass/mass) on 07-20-2021 Iron (Unsp spec) [Mass/Mass] 44 ug/dL 50-170 [facility] Work Phone: Laboratory - Chemistry and C hemistry - challengeon 07-20-2021 Cobalamin (Vitamin B12) [Mass/Vol] 299 pg/mL 211-911 [facility] Work Phone: Laboratory - Hematology and Cell countson 07-20-2021 Erythrocyte distribution width (RBC) [Entitic vol] 43.0 fL 35.1-43.9 [facility] Work Phone: Erythrocyte distribution width (RBC) [Ratio] 14.1 % 11.6-14.6 [facility] Work Phone: Immature granulocytes/100 WBC (Bld) 0.100 % 0.0-0.9 [facility] Work Phone: Comment on above: IG% - Immature Granu locytes (promyelocytes, myelocytes and metamyelocytes) > 1% indicates that a LEFT SHIFT is Present. MCH (RBC) [Entitic mass] 27.2 pg 27.0-32.0 [facility] Work Phone: Nucleated RBC/100 WBC (Bld) [Ratio] 0 % 0-5 [facility] Work Phone: MCHC Auto (RBC) [Mass/Vol]on 07-20-2021 MCHC (RBC) [Mass/Vol] 32.5 g/dL 32-36 [facility] Work Phone: No Panel Informationon 07-20 Immature Reticulocyte Fraction 17.20 % 3.00-15.90 [facility] Work Phone: Reticulocyte Count 2.13 % 0.5-1.5 [facility] Work Phone: Total Iron Binding Capacity 443 ug/dL 250-450 [facility] Work Phone: Platelets bldon 07-20-2021 Platelets (Bld) [#/Vol] 234 10*3/uL 150-450 [facility] Work Phone: Serum or plasma ferritin lizette surement (mass/volume)on 07-20-2021 Ferritin [Mass/Vol] 30 ng/mL 8-252 [facility] Work Phone: [phone] Serum or plasma folate measu rement (mass/volume)on 07-20-2021 Folate [Mass/Vol] 11.00 ng/mL 3.1-55.4 [facility] Work Phone: Serum or plasma iron saturat ion measurement (mass fraction)on 07-20-2021 Iron saturation [Mass fraction] 9.9 % 15.0-55.0 [facility] Work Phone: Absolute lymphocyte counton 07-19-2021 Lymphocytes Auto (Unsp spec) [#/Vol] 2.89 10*3/uL 0.83-4.51 [facility] Work Phone: Basophil percentageon 2021 Basophils/100 WBC (Bld) 0.4 % 0-[address] [facility] Work Phone: [phone] Chloride [Moles/Vol] 108 mmol/L 98-107 [facility] Work Phone: [phone] Eosinophils/100 WBC (Bld) 1.8 % 0-5 [facility] Work Phone: [phone] Glucose [Mass/Vol] 140 mg/dL 74-106 [facility] Work Phone: Comment on above: Fasting Glucose resu lt greater than or equal to 126 mg/dL suggests DIABETES MELLITUS per A.D.A. criteria. Neutrophils (Bld) [#/Vol] 4.7 10*3/uL 2.0-7.7 [facility] Work Phone: [phone] Neutrophils/100 WBC (Bld) 55.6 % 47-70 [facility] Work Phone: Potassium [Moles/Vol] 4.0 mmol/L 3.5-5.1 [facility] Work Phone: [phone] Sodium [Moles/Vol] 138 mmol/L 136-145 [facility] Work Phone: [phone] WBC (Bld) [#/Vol] 8.4 10*3/uL 4.4-11.0 [facility] Work Phone: Blood erythrocytes count (nu mber/volume)on 07-19-2021 RBC (Bld) [#/Vol] 4.11 10*6/uL 4.2-5.4 [facility] Work Phone: [phone] Blood hemoglobin measurement (mass/volume)on 07-19-2021 Hemoglobin (Bld) [Mass/Vol] 10.8 g/dL 12.0-15.0 [facility] Work Phone: [phone] Blood lymphocytes/100 leukoc yteson 07-19-2021 Lymphocytes/100 WBC (Bld) 34.5 % 19-41 [facility] Work Phone: [phone] Blood monocytes/100 leukocyt eson 07-19-2021 Monocytes/100 WBC (Bld) 7.5 % 0-[address] [facility] Work Phone: Blood platelet mean volumeon 07-19-2021 Platelet mean volume (Bld) [Entitic vol] 10.4 fL 6.2-12.0 [facility] Work Phone: Culture, urineon 07-19-2021 Bacteria identified Cx Nom (U) Escherichia coli [facility] Work Phone: Determination of erythrocyte mean corpuscular volume (MCV)on 07-19-2021 MCV (RBC) [Entitic vol] 83.0 fL 81-[address] [facility] Work Phone: Hematocrit Auto (Bld) [Volum e fraction]on 07-19-2021 Hematocrit (Bld) [Volume fraction] 34.1 % 37-47 [facility] Work Phone: Laboratory - Chemistry and C hemistry - challengeon 07-19-2021 CO2 [Moles/Vol] 26.0 mmol/L 21.0-32.0 [facility] Work Phone: Urea nitrogen/Creatinine [Mass ratio] 15.8 mg/mg 10-20 [facility] Work Phone: Laboratory - Hematology and Cell countson 07-19-2021 Erythrocyte distribution width (RBC) [Entitic vol] 42.5 fL 35.1-43.9 [facility] Work Phone: Erythrocyte distribution width (RBC) [Ratio] 14.1 % 11.6-14.6 [facility] Work Phone: Immature granulocytes/100 WBC (Bld) 0.200 % 0.0-0.9 [facility] Work Phone: Comment on above: IG% - Immature Granu locytes (promyelocytes, myelocytes and metamyelocytes) > 1% indicates that a LEFT SHIFT is Present. MCH (RBC) [Entitic mass] 26.3 pg 27.0-32.0 [facility] Work Phone: Nucleated RBC/100 WBC (Bld) [Ratio] 0 % 0-5 [facility] Work Phone: Laboratory - Microbiology an d Antimicrobial susceptibilityon 07-19-2021 Bacteria identified Cx Nom (Bld) No growth in 5 days. [facility] Work Phone: MCHC Auto (RBC) [Mass/Vol]on 07-19-2021 MCHC (RBC) [Mass/Vol] 31.7 g/dL 32-36 [facility] Work Phone: No Panel Informationon 07-19 Estimated GFR (MDRD) Amer 65 mL/min >60 [facility] Work Phone: Comment on above: GFR Calc Estimated GFR (MDRD) Non-Af Amer 53 mL/min >60 [facility] Work Phone: Comment on above: Non- GFR Calc Platelets bldon 07-19-2021 Platelets (Bld) [#/Vol] 257 10*3/uL 150-450 [facility] Work Phone: Serum or plasma calcium thiago urement (mass/volume)on 07-19-2021 Calcium [Mass/Vol] 9.6 mg/dL 8.5-10.1 [facility] Work Phone: Serum or plasma creatinine m easurement (mass/volume)on 07-19-2021 Creatinine [Mass/Vol] 1.14 mg/dL 0.55-1.02 [facility] Work Phone: Comment on above: The validity of the calculated GFR & GFRAA in patients over 70 years has not been determined. Clinical correlation is essential. Serum or plasma urea nitroge n measurement (mass/volume)on 07-19-2021 Urea nitrogen [Mass/Vol] 18 mg/dL 7-18 [facility] Work Phone: Thin prep Papanicolaou smear with manual screeningon 07-19-2021 Thin prep Papanicolaou smear with manual screening 4 5-15 [facility] Work Phone: [phone] Absolute lymphocyte counton 06-23-2021 Lymphocytes Auto (Unsp spec) [#/Vol] 2.66 10*3/uL 0.83-4.51 [facility] Work Phone: Basophil percentageon 2021 Basophils/100 WBC (Bld) 0.5 % 0-[address] [facility] Work Phone: [phone] Bilirubin [Mass/Vol] 0.50 mg/dL 0.20-1.00 [facility] Work Phone: Comment on above: For patients on eltr ombopag therapy, use of [employer] [place] TBIL is not recommended. Chloride [Moles/Vol] 101 mmol/L 98-107 [facility] Work Phone: [phone] Eosinophils/100 WBC (Bld) 1.5 % 0-5 [facility] Work Phone: [phone] Glucose [Mass/Vol] 252 mg/dL 74-106 [facility] Work Phone: Comment on above: Glucose result great er than or equal to 200 mg/dLsuggests DIABETES MELLITUS per A.D.A. criteria. Neutrophils (Bld) [#/Vol] 5.2 10*3/uL 2.0-7.7 [facility] Work Phone: [phone] Neutrophils/100 WBC (Bld) 58.4 % 47-70 [facility] Work Phone: [phone] Potassium [Moles/Vol] 4.1 mmol/L 3.5-5.1 [facility] Work Phone: [phone] Protein [Mass/Vol] 7.9 g/dL 6.4-8.2 [facility] Work Phone: Sodium [Moles/Vol] 137 mmol/L 136-145 [facility] Work Phone: [phone] WBC (Bld) [#/Vol] 8.9 10*3/uL 4.4-11.0 [facility] Work Phone: Blood erythrocytes count (nu mber/volume)on 06-23-2021 RBC (Bld) [#/Vol] 4.77 10*6/uL 4.2-5.4 [facility] Work Phone: Blood hemoglobin measurement (mass/volume)on 06-23-2021 Hemoglobin (Bld) [Mass/Vol] 13.1 g/dL 12.0-15.0 [facility] Work Phone: Blood lymphocytes/100 leukoc yteson 06-23-2021 Lymphocytes/100 WBC (Bld) 30.0 % 19-41 [facility] Work Phone: Blood monocytes/100 leukocyt eson 06-23-2021 Monocytes/100 WBC (Bld) 9.3 % 0-[address] [facility] Work Phone: Blood platelet mean volumeon 06-23-2021 Platelet mean volume (Bld) [Entitic vol] 10.2 fL 6.2-12.0 [facility] Work Phone: Determination of erythrocyte mean corpuscular volume (MCV)on 06-23-2021 MCV (RBC) [Entitic vol] 80.5 fL 81-[address] [facility] Work Phone: Hematocrit Auto (Bld) [Volum e fraction]on 06-23-2021 Hematocrit (Bld) [Volume fraction] 38.4 % 37-47 [facility] Work Phone: Laboratory - Chemistry and C hemistry - challengeon 06-23-2021 ALP [Catalytic activity/Vol] 50 U/L 45-117 [facility] Work Phone: ALT [Catalytic activity/Vol] 42 U/L 13-56 [facility] Work Phone: CO2 [Moles/Vol] 28.0 mmol/L 21.0-32.0 [facility] Work Phone: Globulin (S) [Mass/Vol] 4.1 g/dL 2.2-4.[address] [facility] Work Phone: Urea nitrogen/Creatinine [Mass ratio] 16.0 mg/mg 10-20 [facility] Work Phone: Laboratory - Hematology and Cell countson 06-23-2021 Erythrocyte distribution width (RBC) [Entitic vol] 40.6 fL 35.1-43.9 [facility] Work Phone: Erythrocyte distribution width (RBC) [Ratio] 13.9 % 11.6-14.6 [facility] Work Phone: Immature granulocytes/100 WBC (Bld) 0.300 % 0.0-0.9 [facility] Work Phone: Comment on above: IG% - Immature Granu locytes (promyelocytes, myelocytes and metamyelocytes) > 1% indicates that a LEFT SHIFT is Present. MCH (RBC) [Entitic mass] 27.5 pg 27.0-32.0 [facility] Work Phone: Nucleated RBC/100 WBC (Bld) [Ratio] 0 % 0-5 [facility] Work Phone: MCHC Auto (RBC) [Mass/Vol]on 06-23-2021 MCHC (RBC) [Mass/Vol] 34.1 g/dL 32-36 [facility] Work Phone: No Panel Informationon 06-23 Estimated GFR (MDRD) Amer 58 mL/min >60 [facility] Work Phone: Comment on above: GFR Calc Estimated GFR (MDRD) Non-Af Amer 48 mL/min >60 [facility] Work Phone: Comment on above: Non- GFR Calc Thyroid Stimulating Hormone (TSH) 4.89 uIU/mL 0.358-3.74 [facility] Work Phone: Platelets bldon 06-23-2021 Platelets (Bld) [#/Vol] 274 10*3/uL 150-450 [facility] Work Phone: Serum or plasma albumin thiago urement (mass/volume)on 06-23-2021 Albumin [Mass/Vol] 3.8 g/dL 3.2-5.0 [facility] Work Phone: Serum or plasma albumin/glob ulin mass ratioon 06-23-2021 Albumin/Globulin [Mass ratio] 0.9 {ratio} 0.9-2.4 [facility] Work Phone: Serum or plasma calcium thiago urement (mass/volume)on 06-23-2021 Calcium [Mass/Vol] 8.9 mg/dL 8.5-10.1 [facility] Work Phone: Serum or plasma creatinine m easurement (mass/volume)on 06-23-2021 Creatinine [Mass/Vol] 1.25 mg/dL 0.55-1.02 [facility] Work Phone: Comment on above: The validity of the calculated GFR & GFRAA in patients over 70 years has not been determined. Clinical correlation is essential. Serum or plasma urea nitroge n measurement (mass/volume)on 06-23-2021 Urea nitrogen [Mass/Vol] 20 mg/dL 7-18 [facility] Work Phone: Thin prep Papanicolaou smear with manual screeningon 06-23-2021 Thin prep Papanicolaou smear with manual screening 32 U/L 15-37 [facility] Work Phone: Thin prep Papanicolaou smear with manual screening 8 5-15 [facility] Work Phone: Basophil percentageon 2021 Cholesterol [Mass/Vol] 126 mg/dL <200 [facility] Work Phone: Comment on above: <200 mg/dL Desirable 200-240 mg/dL Borderline >240 mg/dL High Risk Triglyceride [Mass/Vol] 145 mg/dL <[address] [facility] Work Phone: Comment on above: The drugs N-Acetylcy steine and Metamizole may falsely depress this assay.Serum Triglycerides Reference Interval Normal <150 mg/dL Borderline high 150 - 199 mg/dL High 200 - 499 mg/dL Very High > or = 500 mg/dL Laboratory - Chemistry and C hemistry - challengeon 06-09-2021 Cobalamin (Vitamin B12) [Mass/Vol] 392 pg/mL 211-911 [facility] Work Phone: Free T4 [Mass/Vol] 0.98 ng/dL 0.76-1.46 [facility] Work Phone: Laboratory - Hematology and Cell countson 06-09-2021 HbA1c (Bld) [Mass fraction] 9.4 % [facility] Work Phone: No Panel Informationon 06-09 Thyroid Stimulating Hormone (TSH) 2.37 uIU/mL 0.358-3.74 [facility] Work Phone: Vitamin D 25-Hydroxy 21.5 ng/mL [facility] Work Phone: Comment on above: Vitamin D 25(OH) Sta tus Range Deficiency <20 ng/mL (50nmol/L) Insufficiency 20 - 30 ng/mL (50 - 75 nmol/L) Sufficiency 30 - 100 ng/mL (75 - 250 nmol/L) Toxicity >100 ng/mL (>250 nmol/L) Serum or plasma cholesterol in HDL measurement (mass/volume)on 06-09-2021 Cholesterol in HDL [Mass/Vol] 41 mg/dL >40 [facility] Work Phone: Comment on above: The drugs N-Acetylcy steine and Metamizole may falsely depress this assay. Reference Range HDL <40 mg/dL Low HDL Cholesterol HDL >or= 60 mg/dL High HDL Cholesterol Serum or plasma cholesterol in VLDL measurement (mass/volume)on 06-09-2021 Cholesterol in VLDL [Mass/Vol] 29 mg/dL 5-40 [facility] Work Phone: Serum or plasma low density lipoprotein (LDL) cholesterol measurement (mass/volume)on 06-09-2021 Cholesterol in LDL [Mass/Vol] 56 mg/dL 0-130 [facility] Work Phone: Bacteria identified Cx Nom ( Wound)on 05-18-2021 Wound Culture Meth. resistant Staph. aureus [facility] Work Phone: Gram stain for investigation of transfusion reactionon 05-18-2021 Microscopic observation Gram stain Nom (Unsp spec) [facility] Work Phone: No Panel Informationon 05-18 Methicillin-Resist S.aureus DNA PCR Positive Negative [facility] Work Phone: Staphylococcus aureus DNA de tection by probe and target amplification methodon 05-18-2021 S. aureus DNA EMILY+probe Ql (Unsp spec) Positive Negative [facility] Work Phone: Absolute lymphocyte counton 05-17-2021 Lymphocytes Auto (Unsp spec) [#/Vol] 2.79 10*3/uL 0.83-4.51 [facility] Work Phone: Basophil percentageon 2021 Basophils/100 WBC (Bld) 0.4 % 0-[address] [facility] Work Phone: Chloride [Moles/Vol] 104 mmol/L 98-107 [facility] Work Phone: Eosinophils/100 WBC (Bld) 1.6 % 0-5 [facility] Work Phone: Glucose [Mass/Vol] 227 mg/dL 74-106 [facility] Work Phone: Comment on above: Glucose result great er than or equal to 200 mg/dLsuggests DIABETES MELLITUS per A.D.A. criteria. Neutrophils (Bld) [#/Vol] 4.7 10*3/uL 2.0-7.7 [facility] Work Phone: Neutrophils/100 WBC (Bld) 55.4 % 47-70 [facility] Work Phone: Potassium [Moles/Vol] 4.2 mmol/L 3.5-5.1 [facility] Work Phone: Sodium [Moles/Vol] 139 mmol/L 136-145 [facility] Work Phone: WBC (Bld) [#/Vol] 8.5 10*3/uL 4.4-11.0 [facility] Work Phone: Blood erythrocytes count (nu mber/volume)on 05-17-2021 RBC (Bld) [#/Vol] 4.70 10*6/uL [facility].2-5.[facility]: Blood hemoglobin measurement (mass/volume)on 05-17-2021 Hemoglobin (Bld) [Mass/Vol] 12.5 g/dL 12.0-15.0 [facility] Work Phone: Blood lymphocytes/100 leukoc yteson 05-17-2021 Lymphocytes/100 WBC (Bld) 32.7 % 19-41 [facility] Work Phone: Blood monocytes/100 leukocyt eson 05-17-2021 Monocytes/100 WBC (Bld) 9.5 % 0-[address] [facility] Work Phone: Blood platelet mean volumeon 05-17-2021 Platelet mean volume (Bld) [Entitic vol] 10.1 fL 6.2-12.0 [facility] Work Phone: Determination of erythrocyte mean corpuscular volume (MCV)on 05-17-2021 MCV (RBC) [Entitic vol] 80.6 fL 81-[address] [facility] Work Phone: Hematocrit Auto (Bld) [Volum e fraction]on 05-17-2021 Hematocrit (Bld) [Volume fraction] 37.9 % 37-47 [facility] Work Phone: Laboratory - Chemistry and C hemistry - challengeon 05-17-2021 CO2 [Moles/Vol] 29.0 mmol/L 21.0-32.0 [facility] Work Phone: Urea nitrogen/Creatinine [Mass ratio] 20.2 mg/mg 10-20 [facility] Work Phone: Laboratory - Hematology and Cell countson 05-17-2021 Erythrocyte distribution width (RBC) [Entitic vol] 41.0 fL 35.1-43.9 [facility] Work Phone: Erythrocyte distribution width (RBC) [Ratio] 14.2 % 11.6-14.6 [facility] Work Phone: Immature granulocytes/100 WBC (Bld) 0.400 % 0.0-0.9 [facility] Work Phone: Comment on above: IG% - Immature Granu locytes (promyelocytes, myelocytes and metamyelocytes) > 1% indicates that a LEFT SHIFT is Present. MCH (RBC) [Entitic mass] 26.6 pg 27.0-32.0 [facility] Work Phone: Nucleated RBC/100 WBC (Bld) [Ratio] 0 % 0-5 [facility] Work Phone: Laboratory - Microbiology an d Antimicrobial susceptibilityon 05-17-2021 Bacteria identified Cx Nom (Bld) No growth in 5 days. [facility] Work Phone: MCHC Auto (RBC) [Mass/Vol]on 05-17-2021 MCHC (RBC) [Mass/Vol] 33.0 g/dL 32-36 [facility] Work Phone: No Panel Informationon 05-17 Estimated GFR (MDRD) Amer 62 mL/min >60 [facility] Work Phone: Comment on above: GFR Calc Estimated GFR (MDRD) Non-Af Amer 51 mL/min >60 [facility] Work Phone: Comment on above: Non- GFR Calc Platelets bldon 05-17-2021 Platelets (Bld) [#/Vol] 302 10*3/uL 150-450 [facility] Work Phone: Serum or plasma calcium thiago urement (mass/volume)on 05-17-2021 Calcium [Mass/Vol] 9.3 mg/dL 8.5-10.1 [facility] Work Phone: Serum or plasma creatinine m easurement (mass/volume)on 05-17-2021 Creatinine [Mass/Vol] 1.19 mg/dL 0.55-1.02 [facility] Work Phone: Comment on above: The validity of the calculated GFR & GFRAA in patients over 70 years has not been determined. Clinical correlation is essential. Serum or plasma urea nitroge n measurement (mass/volume)on 05-17-2021 Urea nitrogen [Mass/Vol] 24 mg/dL 7-18 [facility] Work Phone: Thin prep Papanicolaou smear with manual screeningon 05-17-2021 Thin prep Papanicolaou smear with manual screening 6 5-15 [facility] Work Phone: Laboratory - Hematology and Cell countson 05-12-2021 HbA1c (Bld) [Mass fraction] 10.2 % [facility] Work Phone: Absolute lymphocyte counton 04-14-2021 Lymphocytes Auto (Unsp spec) [#/Vol] 3.45 10*3/uL 0.83-4.51 [facility] Work Phone: Bacteria identified Cx Nom ( Wound)on 04-14-2021 Wound Culture Meth. resistant Staph. aureus [facility] Work Phone: Basophil percentageon 2021 Basophils/100 WBC (Bld) 0.4 % 0-[address] [facility] Work Phone: Chloride [Moles/Vol] 102 mmol/L 98-107 [facility] Work Phone: Eosinophils/100 WBC (Bld) 1.6 % 0-5 [facility] Work Phone: Glucose [Mass/Vol] 279 mg/dL 74-106 [facility] Work Phone: Comment on above: Glucose result great er than or equal to 200 mg/dLsuggests DIABETES MELLITUS per A.D.A. criteria. Neutrophils (Bld) [#/Vol] 6.7 10*3/uL 2.0-7.7 [facility] Work Phone: Neutrophils/100 WBC (Bld) 58.3 % 47-70 [facility] Work Phone: Potassium [Moles/Vol] 4.5 mmol/L 3.5-5.1 [facility]: Sodium [Moles/Vol] 137 mmol/L 136-145 [facility] Work Phone: WBC (Bld) [#/Vol] 11.4 10*3/uL 4.4-11.0 [facility] Work Phone: Blood erythrocytes count (nu mber/volume)on 04-14-2021 RBC (Bld) [#/Vol] 4.66 10*6/uL 4.2-5.4 [facility] Work Phone: Blood hemoglobin measurement (mass/volume)on 04-14-2021 Hemoglobin (Bld) [Mass/Vol] 12.0 g/dL 12.0-15.0 [facility] Work Phone: Blood lymphocytes/100 leukoc yteson 04-14-2021 Lymphocytes/100 WBC (Bld) 30.3 % 19-41 [facility] Work Phone: Blood monocytes/100 leukocyt eson 04-14-2021 Monocytes/100 WBC (Bld) 9.0 % 0-[address] [facility] Work Phone: Blood platelet mean volumeon 04-14-2021 Platelet mean volume (Bld) [Entitic vol] 10.9 fL 6.2-12.0 [facility] Work Phone: Determination of erythrocyte mean corpuscular volume (MCV)on 04-14-2021 MCV (RBC) [Entitic vol] 82.2 fL 81-[address] [facility] Work Phone: Erythrocyte sedimentation ra david 04-14-2021 ESR (Bld) [Velocity] 37 mm[facility]h 0-[facility] Gram stain for investigation of transfusion reactionon 04-14-2021 Microscopic observation Gram stain Nom (Unsp spec) [facility] Work Phone: Hematocrit Auto (Bld) [Volum e fraction]on 04-14-2021 Hematocrit (Bld) [Volume fraction] 38.3 % 37-47 [facility] Work Phone: Laboratory - Chemistry and C hemistry - challengeon 04-14-2021 CO2 [Moles/Vol] 29.0 mmol/L 21.0-32.0 [facility] Work Phone: Urea nitrogen/Creatinine [Mass ratio] 19.8 mg/mg 10-20 [facility] Work Phone: Laboratory - Hematology and Cell countson 04-14-2021 Erythrocyte distribution width (RBC) [Entitic vol] 40.5 fL 35.1-43.9 [facility] Work Phone: Erythrocyte distribution width (RBC) [Ratio] 13.7 % 11.6-14.6 [facility] Work Phone: Immature granulocytes/100 WBC (Bld) 0.400 % 0.0-0.9 [facility] Work Phone: Comment on above: IG% - Immature Granu locytes (promyelocytes, myelocytes and metamyelocytes) > 1% indicates that a LEFT SHIFT is Present. MCH (RBC) [Entitic mass] 25.8 pg 27.0-32.0 [facility] Work Phone: Nucleated RBC/100 WBC (Bld) [Ratio] 0 % 0-5 [facility] Work Phone: Laboratory - Microbiology an d Antimicrobial susceptibilityon 04-14-2021 Bacteria identified Cx Nom (Bld) No growth in 5 days. [facility] Work Phone: MCHC Auto (RBC) [Mass/Vol]on 04-14-2021 MCHC (RBC) [Mass/Vol] 31.3 g/dL 32-36 [facility] Work Phone: No Panel Informationon 04-14 Estimated GFR (MDRD) Amer 70 mL/min >60 [facility] Work Phone: Comment on above: GFR Calc Estimated GFR (MDRD) Non-Af Amer 58 mL/min >60 [facility] Work Phone: Comment on above: Non- GFR Calc Methicillin-Resist S.aureus DNA PCR Positive Negative [facility] Work Phone: Thyroid Stimulating Hormone (TSH) 4.56 uIU/mL 0.358-3.74 [facility] Work Phone: Platelets bldon 04-14-2021 Platelets (Bld) [#/Vol] 305 10*3/uL 150-450 [facility] Work Phone: Serum or plasma C reactive p rotein measurement (mass/volume)on 04-14-2021 CRP [Mass/Vol] 13.60 mg/L 0.0-3.0 [facility] Work Phone: Comment on above: C-Reactive Protein ( CRP) provides useful information for thediagnosis, therapy and monitoring of inflammatory processesand associated diseases. For the evaluation of Relative Riskfor Cardiovascular Disease, a High Sensitivity CRP (HSCRP)should be ordered. Serum or plasma calcium thiago urement (mass/volume)on 04-14-2021 Calcium [Mass/Vol] 8.7 mg/dL 8.5-10.1 [facility] Work Phone: Serum or plasma creatinine m easurement (mass/volume)on 04-14-2021 Creatinine [Mass/Vol] 1.06 mg/dL 0.55-1.02 [facility] Work Phone: Comment on above: The validity of the calculated GFR & GFRAA in patients over 70 years has not been determined. Clinical correlation is essential. Serum or plasma urea nitroge n measurement (mass/volume)on 04-14-2021 Urea nitrogen [Mass/Vol] 21 mg/dL 7-18 [facility] Work Phone: Staphylococcus aureus DNA de tection by probe and target amplification methodon 04-14-2021 S. aureus DNA EMILY+probe Ql (Unsp spec) Positive Negative [facility] Work Phone: Thin prep Papanicolaou smear with manual screeningon 04-14-2021 Thin prep Papanicolaou smear with manual screening 6 5-15 [facility] [facility] Work [facility]: Absolute lymphocyte counton 03-10-2021 Lymphocytes Auto (Unsp spec) [#/Vol] 4.46 10*3/uL 0.83-4.51 [facility] Work Phone: Basophil percentageon 2020 Bilirubin [Mass/Vol] 0.60 mg/dL 0.20-1.00 [facility] Work Phone: Comment on above: For patients on eltr ombopag therapy, use of Dimension [place] TBIL is not recommended. Chloride [Moles/Vol] 101 mmol/L 98-107 [facility] Work Phone: Eosinophils/100 WBC (Bld) 1.5 % 0-5 [facility] Work Phone: Glucose [Mass/Vol] 272 mg/dL 74-106 [facility] Work Phone: Comment on above: Glucose result great er than or equal to 200 mg/dLsuggests DIABETES MELLITUS per A.D.A. criteria.Please note revised GLUCOSE reference range effective 2017. Neutrophils (Bld) [#/Vol] 6.7 10*3/uL 2.0-7.7 [facility] Work Phone: [phone] Potassium [Moles/Vol] 3.9 mmol/L 3.5-5.1 [facility] Work Phone: [phone] Protein [Mass/Vol] 7.8 g/dL 6.4-8.2 [facility] Work Phone: [phone] Sodium [Moles/Vol] 138 mmol/L 136-145 [facility]: WBC (Bld) [#/Vol] 12.5 10*3/uL 4.4-11.0 [facility] Work Phone: Blood erythrocytes count (nu mber/volume)on 03-10-2021 RBC (Bld) [#/Vol] 4.98 10*6/uL 4.2-5.4 [facility] Work Phone: Blood hemoglobin measurement (mass/volume)on 03-10-2021 Hemoglobin (Bld) [Mass/Vol] 13.1 g/dL 12.0-15.0 [facility] Work Phone: Blood lymphocytes/100 leukoc yteson 03-10-2021 Lymphocytes/100 WBC (Bld) 35.8 % 19-41 [facility] Work Phone: Blood monocytes/100 leukocyt eson 03-10-2021 Monocytes/100 WBC (Bld) 7.5 % 0-[address] [facility] Work Phone: Blood platelet mean volumeon 03-10-2021 Platelet mean volume (Bld) [Entitic vol] 10.1 fL 6.2-12.0 [facility] Work Phone: Determination of erythrocyte mean corpuscular volume (MCV)on 03-10-2021 MCV (RBC) [Entitic vol] 79.5 fL 81-[address] [facility] Work Phone: Hematocrit Auto (Bld) [Volum e fraction]on 03-10-2021 Hematocrit (Bld) [Volume fraction] 39.6 % 37-47 [facility] Work Phone: Laboratory - Chemistry and C hemistry - challengeon 03-10-2021 ALP [Catalytic activity/Vol] 67 U/L 45-117 [facility] Work Phone: ALT [Catalytic activity/Vol] 82 U/L 13-56 [facility] Work Phone: CO2 [Moles/Vol] 28.0 mmol/L 21.0-32.0 [facility] Work Phone: Globulin (S) [Mass/Vol] 4.3 g/dL 2.2-4.[address] [facility] Work Phone: Urea nitrogen/Creatinine [Mass ratio] 18.6 mg/mg 10-20 [facility] Work Phone: Laboratory - Hematology and Cell countson 03-10-2021 Basophils/100 WBC (Unsp spec) 0.5 % 0-1 [facility] Work Phone: Erythrocyte distribution width (RBC) [Entitic vol] 39.1 fL 35.1-43.9 [facility] Work Phone: Erythrocyte distribution width (RBC) [Ratio] 13.7 % 11.6-14.6 [facility] Work Phone: Immature granulocytes/100 WBC (Bld) 0.900 % 0.0-0.9 [facility] Work Phone: Comment on above: IG% - Immature Granu locytes (promyelocytes, myelocytes and metamyelocytes) > 1% indicates that a LEFT SHIFT is Present. MCH (RBC) [Entitic mass] 26.3 pg 27.0-32.0 [facility] Work Phone: Neutrophils/100 WBC (Bld) 53.8 % 47-70 [facility] Work Phone: Nucleated RBC/100 WBC (Bld) [Ratio] 0 % 0-5 [facility] Work Phone: MCHC Auto (RBC) [Mass/Vol]on 03-10-2021 MCHC (RBC) [Mass/Vol] 33.1 g/dL 32-36 [facility] Work Phone: No Panel Informationon 03-10 Estimated GFR (MDRD) Amer 74 mL/min >60 [facility] Work Phone: Comment on above: GFR Calc Estimated GFR (MDRD) Non-Af Amer 61 mL/min >60 [facility] Work Phone: Comment on above: Non- GFR Calc Thyroid Stimulating Hormone (TSH) 4.63 uIU/mL 0.358-3.74 [facility] Work Phone: Platelets bldon 03-10-2021 Platelets (Bld) [#/Vol] 283 10*3/uL 150-450 [facility] Work Phone: Serum or plasma albumin thiago urement (mass/volume)on 03-10-2021 Albumin [Mass/Vol] 3.5 g/dL 3.2-5.0 [facility] Work Phone: Serum or plasma albumin/glob ulin mass ratioon 03-10-2021 Albumin/Globulin [Mass ratio] 0.8 {ratio} 0.9-2.4 [facility] Work Phone: Serum or plasma calcium thiago urement (mass/volume)on 03-10-2021 Calcium [Mass/Vol] 9.9 mg/dL 8.5-10.1 [facility] Work Phone: Serum or plasma creatinine m easurement (mass/volume)on 03-10-2021 Creatinine [Mass/Vol] 1.02 mg/dL 0.55-1.02 [facility] Work Phone: Comment on above: The validity of the calculated GFR & GFRAA in patients over 70 years has not been determined. Clinical correlation is essential. Serum or plasma urea nitroge n measurement (mass/volume)on 03-10-2021 Urea nitrogen [Mass/Vol] 19 mg/dL 7-18 [facility] Work Phone: Thin prep Papanicolaou smear with manual screeningon 03-10-2021 Thin prep Papanicolaou smear with manual screening 41 U/L 15-37 [facility] Work Phone: Thin prep Papanicolaou smear with manual screening 9 -15 [facility] Work Phone: Otheron 09-19-2006 CONVERTED ELECTRONIC SIGNATURE KIANA THOMAS M.D., PATHOLOGIST (Electronic signature on file) Final Signed Out: 09/19/2006 09:15 [facility] CONVERTED FINAL DIAGNOSIS A&B. RIGHT AND LEFT FALLOPIAN TUBES, PARTIAL EXCISION - TWO SEGMENTS OF UNREMARKABLE FALLOPIAN TUBE, EACH TOTALLY TRANSECTED. C. PLACENTA, MEMBRANES AND UMBILICAL CORD, DELIVERY - ECCENTRIC INSERTION OF UMBILICAL CORD. NO HISTOLOGIC ABNORMALITIES IDENTIFIED. [facility] CONVERTED ORDERING PROVIDER Ordering Provider: FRANSISCO SPARKS [facility] Culture, urine Bacteria identified Cx Nom (U) Escherichia coli [facility] Work Phone: Bacteria identified Cx Nom (U) Mixed Gram Pos & Gram Neg Org [facility] Work Phone: Bacteria identified Cx Nom (U) Positive [facility] Work Phone: Laboratory - Microbiology an d Antimicrobial susceptibility Bacteria identified Cx Nom (Bld) No growth in 5 days. [facility] Work Phone: No Panel Information Respiratory Panel (PCR) [facility] Work Phone: SARS-CoV-2 & FLU Antigen (Rapid) [facility] Work Phone: Vital Signs Date Time Vital Sign Value Performing Clinician Facility 05-02-2024 11:40-0500 Body height 170.[address] Phu Espinoza MD Work Phone: [facility] 05-02-2024 11:40-0500 Body mass index (BMI) [Ratio] 45.4 kg/m2 Dr. Phu Espinoza MD Work Phone: [facility] 05-02-2024 11:40-0500 Body weight 131.[address] Phu Espinoza MD Work Phone: [facility] 05-02-2024 11:40-0500 Diastolic blood pressure 81 mm[Hg] Dr. Phu Espinoza MD Work Phone: [facility] 05-02-2024 11:40-0500 Heart rate 75 /min Dr. Phu Espinoza MD Work Phone: 7(447)916-455088 [address] 05-02-2024 11:40-0500 SaO2% (BldA) [Mass fraction] 97 % Dr. Phu Espinoza MD Work Phone: 6(846)459-838606 [place] [address] 05-02-2024 11:40-0500 Systolic blood pressure 134 mm[Hg] Dr. Phu Espinoza MD Work Phone: 8(281)348-307845 [place] [address] 03-22-2024 13:42-0500 Body mass index (BMI) [Ratio] 45.4 kg/m2 Dr. Phu Espinoza MD Work Phone: 3(669)392-761045 [place] [address] 03-22-2024 13:42-0500 Body temperature 97.3 [degF] Dr. Phu Espinoza MD Work Phone: 9(531)845-164745 [place] [address] 03-22-2024 13:42-0500 Body weight 131.[address] Phu Espinoza MD Work Phone: 4(199)816-053745 [place] [address] 03-22-2024 13:42-0500 Diastolic blood pressure 79 mm[Hg] Dr. Phu Espinoza MD Work Phone: 0(095)664-981745 [place] [address] 03-22-2024 13:42-0500 Heart rate 85 /min Dr. Phu Espinoza MD Work Phone: 7(805)285-569945 [place] [address] 03-22-2024 13:42-0500 Respiratory rate 18 /min Dr. Phu Espinoza MD Work Phone: 4(605)325-807145 [place] [address] 03-22-2024 13:42-0500 SaO2% (BldA) [Mass fraction] 96 % Dr. Phu Espinoza MD Work Phone: 9(941)116-477745 [place] [address] 03-22-2024 13:42-0500 Systolic blood pressure 122 mm[Hg] Dr. Phu Espinoza MD Work Phone: 3(455)412-739345 [place] [address] 03-13-2023 08:55-0500 Body temperature 97.8 [degF] Dr. Phu Espinoza Work Phone: 2(176)260-603706 [place] [address] 03-13-2023 08:55-0500 Diastolic blood pressure 76 mm[Hg] Dr. Phu Espinoza Work Phone: 9(191)942-663745 [place] [address] 03-13-2023 08:55-0500 Heart rate 74 /min Dr. Phu Espinoza Work Phone: 6(100)354-150406 [place] [address] 03-13-2023 08:55-0500 Respiratory rate 16 /min Dr. Phu Espinoza Work Phone: 4(842)014-631906 [place] [address] 03-13-2023 08:55-0500 SaO2% (BldA) [Mass fraction] 97 % Dr. Phu Espinoza Work Phone: 2(259)881-152806 [place] [address] 03-13-2023 08:55-0500 Systolic blood pressure 110 mm[Hg] Dr. Phu Espinoza Work Phone: 5(618)308-564845 [place] [address] 03-13-2023 07:08-0500 Body height 170.[address] Phu Espinoza Work Phone: 6(158)426-008645 [place] [address] 03-13-2023 07:08-0500 Body mass index (BMI) [Ratio] 43.4 kg/m2 Dr. Phu Espinoza Work Phone: 3(019)370-428945 [place] [address] 03-13-2023 07:08-0500 Body weight [address] Phu Espinoza Work Phone: 9(553)551-624445 [place] [address] 03-02-2023 11:10-0500 Body height 170.[address] Phu Espinoza Work Phone: 6(872)863-519645 [place] [address] 03-02-2023 11:10-0500 Body mass index (BMI) [Ratio] 44.1 kg/m2 Dr. Phu Espinoza Work Phone: 3(694)350-009406 [place] [address] 03-02-2023 11:10-0500 Body temperature 98.6 [degF] Dr. Phu Espinoza Work Phone: 1(626)042-087506 [place] [address] 03-02-2023 11:10-0500 Body weight 127.[address] Phu Espinoza Work Phone: 6(288)427-715406 [place] [address] 03-02-2023 11:10-0500 Diastolic blood pressure 91 mm[Hg] Dr. Phu Espinoza Work Phone: 4(084)577-984606 [place] [address] 03-02-2023 11:10-0500 Heart rate 87 /min Dr. Phu Espinoza Work Phone: [facility] 03-02-2023 11:10-0500 SaO2% (BldA) [Mass fraction] 95 % Dr. Phu Espinoza Work Phone: [facility] 03-02-2023 11:10-0500 Systolic blood pressure 154 mm[Hg] Dr. Phu Espinoza Work Phone: [facility] 02-15-2023 14:17-0500 Body mass index (BMI) [Ratio] 43.4 kg/m2 Dr. Phu Espinoza Work Phone: [facility] 02-15-2023 14:17-0500 Body weight 125.[address] Phu Espinoza Work Phone: 0(458)715-407206 [place] [address] 02-15-2023 14:17-0500 Diastolic blood pressure 75 mm[Hg] Dr. Phu Espinoza Work Phone: [facility] 02-15-2023 14:17-0500 Respiratory rate 18 /min Dr. Phu Espinoza Work Phone: [facility] 02-15-2023 14:17-0500 Systolic blood pressure 114 mm[Hg] Dr. Phu Espinoza Work Phone: [facility] 11-17-2022 10:41-0400 Body height 171.[address] Phu Espinoza Work Phone: [facility] 11-17-2022 10:41-0400 Body mass index (BMI) [Ratio] 42.8 kg/m2 Dr. Phu Espinoza Work Phone: [facility] 11-17-2022 10:41-0400 Body temperature 98.4 [degF] Dr. Phu Espinoza Work Phone: [facility] 11-17-2022 10:41-0400 Body weight 125.[address] Phu Espinoza Work Phone: [facility] 11-17-2022 10:41-0400 Diastolic blood pressure 78 mm[Hg] Dr. Phu Espinoza Work Phone: [facility] 11-17-2022 10:41-0400 Heart rate 74 /min Dr. Phu Espinoza Work Phone: [facility] 11-17-2022 10:41-0400 Respiratory rate 18 /min Dr. Phu Espinoza Work Phone: [facility] 11-17-2022 10:41-0400 SaO2% (BldA) [Mass fraction] 98 % Dr. Phu Espinoza Work Phone: [facility] 11-17-2022 10:41-0400 Systolic blood pressure 112 mm[Hg] Dr. Phu Espinoza Work Phone: [facility] 08-17-2022 09:18-0400 Body height 171.[address] Phu Espinoza Work Phone: [facility] 08-17-2022 09:18-0400 Body mass index (BMI) [Ratio] 42.6 kg/m2 Dr. Phu Espinoza Work Phone: [facility] 08-17-2022 09:18-0400 Body temperature 98.4 [degF] Dr. Phu Espinoza Work Phone: [facility] 08-17-2022 09:18-0400 Body weight 125.[address] Phu Espinoza Work Phone: [facility] 08-17-2022 09:18-0400 Diastolic blood pressure 69 mm[Hg] Dr. Phu Espinoza Work Phone: [facility] 08-17-2022 09:18-0400 Heart rate 90 /min Dr. Phu Espinoza Work Phone: [facility] 08-17-2022 09:18-0400 Respiratory rate 20 /min Dr. Phu Espinoza Work Phone: [facility] 08-17-2022 09:18-0400 SaO2% (BldA) [Mass fraction] 94 % Dr. Phu Espinoza Work Phone: [facility] 08-17-2022 09:18-0400 Systolic blood pressure 100 mm[Hg] Dr. Phu Espinoza Work Phone: [facility] 05-11-2022 10:40-0500 Body height 171.[address] Phu Espinoza Work Phone: [facility] 05-11-2022 10:40-0500 Body mass index (BMI) [Ratio] 41.2 kg/m2 Dr. Phu Espinoza Work Phone: [facility] 05-11-2022 10:40-0500 Body temperature 97 [degF] Dr. Phu Espinoza Work Phone: [facility] 05-11-2022 10:40-0500 Body weight 121.[address] Phu Espinoza Work Phone: [facility] 05-11-2022 10:40-0500 Diastolic blood pressure 68 mm[Hg] Dr. Phu Espinoza Work Phone: [facility] 05-11-2022 10:40-0500 Heart rate 76 /min Dr. Phu Espinoza Work Phone: [facility] 05-11-2022 10:40-0500 Respiratory rate 18 /min Dr. Phu Espinoza Work Phone: [facility] 05-11-2022 10:40-0500 SaO2% (BldA) [Mass fraction] 94 % Dr. Phu Espinoza Work Phone: [facility] 05-11-2022 10:40-0500 Systolic blood pressure 96 mm[Hg] Dr. Phu Espinoza Work Phone: [facility] 03-29-2022 10:32-0500 Body temperature 98 [degF] Dr. Phu Espinoza Work Phone: [facility] 03-29-2022 10:32-0500 Diastolic blood pressure 90 mm[Hg] Dr. Phu Espinoza Work Phone: [facility] 03-29-2022 10:32-0500 Heart rate 85 /min Dr. Phu Espinoza Work Phone: [facility] 03-29-2022 10:32-0500 Respiratory rate 20 /min Dr. Phu Espinoza Work Phone: [facility] 03-29-2022 10:32-0500 SaO2% (BldA) [Mass fraction] 99 % Dr. Phu Espinoza Work Phone: [facility] 03-29-2022 10:32-0500 Systolic blood pressure 130 mm[Hg] Dr. Phu Espinoza Work Phone: [facility] 03-25-2022 16:55-0500 Body mass index (BMI) [Ratio] 41.3 kg/m2 Dr. Phu Espinoza Work Phone: 2(398)914-611706 [place] [address] 03-25-2022 16:55-0500 Body temperature 98.2 [degF] Dr. Phu Espinoza Work Phone: 7(332)012-075406 [place] [address] 03-25-2022 16:55-0500 Body weight 121.[address] Phu Espinoza Work Phone: 6(077)975-209106 [place] [address] 03-25-2022 16:55-0500 Diastolic blood pressure 82 mm[Hg] Dr. Phu Espinoza Work Phone: 9(609)530-424206 [place] [address] 03-25-2022 16:55-0500 Heart rate 86 /min Dr. Phu Espinoza Work Phone: 2(481)515-101806 [place] [address] 03-25-2022 16:55-0500 Respiratory rate 18 /min Dr. Phu Espinoza Work Phone: [facility] 03-25-2022 16:55-0500 SaO2% (BldA) [Mass fraction] 99 % Dr. Phu Espinoza Work Phone: [facility] 03-25-2022 16:55-0500 Systolic blood pressure 128 mm[Hg] Dr. Phu Espinoza Work Phone: [facility] 02-05-2022 16:25-0500 Body temperature 98.4 [degF] Dr. Phu Espinoza Work Phone: 4(663)991-738206 [place] [address] Work Phone: 02-05-2022 16:25-0500 Diastolic blood pressure 70 mm[Hg] Dr. Phu Espinoza Work Phone: [facility] Work Phone: 02-05-2022 16:25-0500 Heart rate 70 /min Dr. Phu Espinoza Work Phone: [facility] Work Phone: 02-05-2022 16:25-0500 Respiratory rate 18 /min Dr. Phu Espinoza Work Phone: [facility] Work Phone: 02-05-2022 16:25-0500 SaO2% (BldA) [Mass fraction] 97 % Dr. Phu Espinoza Work Phone: [facility] Work Phone: 02-05-2022 16:25-0500 Systolic blood pressure 122 mm[Hg] Dr. Phu Espinoza Work Phone: [facility] Work Phone: 02-05-2022 06:00-0500 Body weight 117.[address] Phu Espinoza Work Phone: [facility] Work Phone: 02-04-2022 13:05-0500 Body height 170.[address] Phu Espinoza Work Phone: [facility] Work Phone: 02-03-2022 23:14-0500 Body mass index (BMI) [Ratio] 40.9 kg/m2 Dr. hPu Espinoza Work Phone: [facility] Work Phone: 02-03-2022 22:03-0500 Body temperature 100.8 [degF] Dr. Phu Espinoza Work Phone: [facility] Work Phone: 02-03-2022 22:03-0500 Diastolic blood pressure 76 mm[Hg] Dr. Phu Espinoza Work Phone: [facility] Work Phone: 02-03-2022 22:03-0500 Heart rate 100 /min Dr. Phu Espinoza Work Phone: [facility] Work Phone: 02-03-2022 22:03-0500 Respiratory rate 20 /min Dr. Phu Espinoza Work Phone: [facility] Work Phone: 02-03-2022 22:03-0500 SaO2% (BldA) [Mass fraction] 96 % Dr. Phu Espinoza Work Phone: [facility] Work Phone: 02-03-2022 22:03-0500 Systolic blood pressure 118 mm[Hg] Dr. Phu Espinoza Work Phone: [facility] Work Phone: 02-03-2022 18:47-0500 Body height 170.[address] Phu Espinoza Work Phone: [facility] Work Phone: 02-03-2022 18:47-0500 Body mass index (BMI) [Ratio] 39.1 kg/m2 Dr. Phu Espinoza Work Phone: [facility] Work Phone: 02-03-2022 18:47-0500 Body weight 113.[address] Phu Espinoza Work Phone: [facility] Work Phone: 11-24-2021 11:48-0400 Body mass index (BMI) [Ratio] 39.8 kg/m2 Dr. Phu Espinoza Work Phone: [facility] Work Phone: 11-24-2021 11:48-0400 Body weight 117.[address] Phu Espinoza Work Phone: [facility] Work Phone: 11-24-2021 11:48-0400 Diastolic blood pressure 80 mm[Hg] Dr. Phu Espinoza Work Phone: [facility] Work Phone: 11-24-2021 11:48-0400 Heart rate 72 /min Dr. Phu Espinoza Work Phone: [facility] Work Phone: 11-24-2021 11:48-0400 Respiratory rate 16 /min Dr. Phu Espinoza Work Phone: [facility] Work Phone: 11-24-2021 11:48-0400 SaO2% (BldA) [Mass fraction] 98 % Dr. Phu Espinoza Work Phone: [facility] Work Phone: 11-24-2021 11:48-0400 Systolic blood pressure 122 mm[Hg] Dr. Phu Espinoza Work Phone: [facility] Work Phone: 08-09-2021 10:43-0400 Body height 171.[address] Phu Espinoza Work Phone: [facility] Work Phone: 08-09-2021 10:43-0400 Body mass index (BMI) [Ratio] 42 kg/m2 Dr. Phu Espinoza Work Phone: [facility] Work Phone: 08-09-2021 10:43-0400 Body temperature 94.5 [degF] Dr. Phu Espinoza Work Phone: [facility] Work Phone: 08-09-2021 10:43-0400 Body weight 123.[address] Phu Espinoza Work Phone: [facility] Work Phone: 08-09-2021 10:43-0400 Diastolic blood pressure 76 mm[Hg] Dr. Phu Espinoza Work Phone: [facility] Work Phone: 08-09-2021 10:43-0400 Heart rate 71 /min Dr. Phu Espinoza Work Phone: [facility] Work Phone: 08-09-2021 10:43-0400 Respiratory rate 16 /min Dr. Phu Espinoza Work Phone: [facility] Work Phone: 08-09-2021 10:43-0400 SaO2% (BldA) [Mass fraction] 97 % Dr. Phu Espinoza Work Phone: [facility] Work Phone: 08-09-2021 10:43-0400 Systolic blood pressure 110 mm[Hg] Dr. Phu Espinoza Work Phone: [facility] Work Phone: 08-09-2021 10:43-0400 Body height 171.[address] Phu Espinoza Work Phone: [facility] Work Phone: 08-09-2021 10:43-0400 Body mass index (BMI) [Ratio] 42 kg/m2 Dr. Phu Espinoza Work Phone: [facility] Work Phone: 08-09-2021 10:43-0400 Body temperature 94.5 [degF] Dr. Phu Espinoza Work Phone: [facility] Work Phone: 08-09-2021 10:43-0400 Body weight 123.[address] Phu Espinoza Work Phone: [facility] Work Phone: 08-09-2021 10:43-0400 Diastolic blood pressure 76 mm[Hg] Dr. Phu Espinoza Work Phone: [facility] Work Phone: 08-09-2021 10:43-0400 Heart rate 71 /min Dr. Phu Espinoza Work Phone: [facility] Work Phone: 08-09-2021 10:43-0400 Respiratory rate 16 /min Dr. Phu Espinoza Work Phone: [facility] Work Phone: 08-09-2021 10:43-0400 SaO2% (BldA) [Mass fraction] 97 % Dr. Phu Espinoza Work Phone: [facility] Work Phone: 08-09-2021 10:43-0400 Systolic blood pressure 110 mm[Hg] Dr. Phu Espinoza Work Phone: [facility] Work Phone: 06-09-2021 13:46-0400 Body height 171.[address] Phu Espinoza Work Phone: [facility] Work Phone: 06-09-2021 13:46-0400 Body mass index (BMI) [Ratio] 43.7 kg/m2 Dr. Phu Espinoza Work Phone: [facility] Work Phone: 06-09-2021 13:46-0400 Body temperature 96.5 [degF] Dr. Phu Espinoza Work Phone: [facility] Work Phone: 06-09-2021 13:46-0400 Body weight 128.[address] Phu Espinoza Work Phone: [facility] Work Phone: 06-09-2021 13:46-0400 Diastolic blood pressure 88 mm[Hg] Dr. Phu Espinoza Work Phone: [facility] Work Phone: 06-09-2021 13:46-0400 Heart rate 87 /min Dr. Phu Espinoza Work Phone: [facility] Work Phone: 06-09-2021 13:46-0400 Respiratory rate 18 /min Dr. Phu Espinoza Work Phone: [facility] Work Phone: 06-09-2021 13:46-0400 SaO2% (BldA) [Mass fraction] 98 % Dr. Phu Espinoza Work Phone: [facility] Work Phone: 06-09-2021 13:46-0400 Systolic blood pressure 140 mm[Hg] Dr. Phu Espinoza Work Phone: [facility] Work Phone: 05-13-2021 07:19-0500 Body mass index (BMI) [Ratio] 45.2 kg/m2 Dr. Phu Espinoza Work Phone: [facility] Work Phone: 05-13-2021 07:19-0500 Body temperature 96.7 [degF] Dr. Phu Espinoza Work Phone: [facility] Work Phone: 05-13-2021 07:19-0500 Body weight 132.[address] Phu Espinoza Work Phone: [facility] Work Phone: 05-13-2021 07:19-0500 Diastolic blood pressure 88 mm[Hg] Dr. Phu Espinoza Work Phone: [facility] Work Phone: 05-13-2021 07:19-0500 Heart rate 93 /min Dr. Phu Espinoza Work Phone: [facility] Work Phone: 05-13-2021 07:19-0500 Respiratory rate 18 /min Dr. Phu Espinoza Work Phone: [facility] Work Phone: 05-13-2021 07:19-0500 SaO2% (BldA) [Mass fraction] 96 % Dr. Phu Espinoza Work Phone: [facility] Work Phone: 05-13-2021 07:19-0500 Systolic blood pressure 140 mm[Hg] Dr. Phu Espinoza Work Phone: [facility] Work Phone: Encounters Encounter Date Encounter Type Care Provider Facility Start: 07-03-2024 End: 07-03-[address] Phu Espinoza MD Work Phone: [facility] Work Phone: Start: 07-03-2024 End: 07-03-[address] 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 Jodi Agee MD -[facility] Work Phone: Start: 04-19-2024 End: 04-19-2024 ambulatory Jodi Agee Facility:[facility] Start: 03-22-2024 End: 03-22-[address] Jodi Agee MD -[facility] Work Phone: Start: 03-22-2024 End: 03-22-2024 ambulatory Phu Chi Alexis Facility:[facility] Start: 03-04-2024 End: 03-04-2024 ambulatory Phu Chi Alexis Facility:[facility] Start: 02-17-2024 ambulatory Phu Chi Alexis Facility:[facility] Start: 02-16-2024 End: 02-16-2024 ambulatory Massiel Shai Facility:[facility] Start: 01-31-2024 End: 01-31-2024 ambulatory Phu Chi Alexis Facility:[facility] Start: 01-24-2024 End: 01-24-2024 ambulatory Phu Chi Alexis Facility:[facility] Start: 01-10-2024 End: 01-10-2024 ambulatory Phu Chi Alexis Facility:[facility] Start: 11-01-2023 End: 11-01-2023 ambulatory Phu Chi Alexis Facility:[facility] Start: 08-03-2023 End: 08-03-2023 ambulatory Phu Chi Alexis Facility:[facility] Start: 07-12-2023 ambulatory Phu Chi Alexis Facility:[facility] Start: 06-22-2023 End: 06-22-[address] Phu Espinoza Work Phone: [facility] Work Phone: Start: 06-22-2023 End: 06-22-[address] Phu Espinoza Work Phone: [facility]-Radiology, [facility] Work Phone: Start: 04-03-2023 End: 04-03-[address] Phu Espinoza Work Phone: [facility] Work Phone: Start: 04-03-2023 End: 04-03-[address] Phu Espinoza Work Phone: [facility]-Laboratory, Phy Office 3rd Flr Start: 03-13-2023 Non-patient / Non-visit Dr. Sloan Espinoza Work Phone: [facility] Start: 03-13-2023 End: 03-13-2023 Admission to same day surgery center Dr. Phu Espinoza Work Phone: [facility]-Endoscopy Work Phone: Start: 03-13-2023 End: 03-13-[address] Phu Espinoza Work Phone: [facility] Work Phone: Start: 03-02-2023 End: 03-02-[address] Phu Espinoza Work Phone: [facility] Work Phone: Start: 03-02-2023 End: 03-02-[address] [facility] Start: 03-02-2023 End: 03-02-[address] Phu Espinoza Work Phone: [facility] Work Phone: Start: 02-15-2023 End: 02-15-[address] Phu Espinoza Work Phone: [facility] Work Phone: Start: 02-08-2023 End: 02-08-[address] Phu Espinoza Work Phone: [facility] Work Phone: Start: 02-08-2023 End: 02-08-[address] Phu [facility]inoza [facility] Start: 01-11-2023 End: 01-11-[address] Phu Esipnoza Work Phone: [facility] Work Phone: Start: 01-11-2023 End: 01-11-[address] Phu Espinoza [facility] Work Phone: Start: 01-09-2023 End: 01-09-[address] Phu Espinoza Work Phone: [facility] Work Phone: Start: 01-09-2023 End: 01-09-[address] Phu Espinoza [facility] Start: 01-03-2023 End: 01-03-[address] Phu Espinoza Work Phone: [facility] 3rd Lar Start: 11-17-2022 End: 11-17-[address] Phu Espinoza Work Phone: [facility] Work Phone: Start: 08-17-2022 End: 08-17-[address] Phu Espinoza Work Phone: [facility] Work Phone: Start: 08-17-2022 End: 08-17-[address] Phu Espinoza Work Phone: [facility] Work Phone: Start: 08-17-2022 End: 08-17-[address] Phu Espinoza Work Phone: [facility] Work Phone: Start: 06-28-2022 End: 06-28-[address] Phu Espinoza Work Phone: [facility] Work Phone: Start: 06-28-2022 End: 06-28-[address] Phu Espinoza Work Phone: [address] Start: 05-11-2022 End: 05-11-[address] Phu Espinoza Work Phone: [facility] End[facility] Start: 03-29-2022 End: 03-29-[address] Phu Espinoza Work Phone: [facility] Start: 03-25-2022 End: 03-25-[address] Phu Espinoza Work Phone: [facility] Start: 02-08-2022 End: 02-08-[address] Phu Espinoza Work Phone: [facility] Work Phone: Start: 02-08-2022 End: 02-08-[address] Phu Espinoza [facility] Start: 02-05-2022 Non-patient / Non-visit Dr. Sloan Espinoza Work Phone: [facility] Start: 02-04-2022 Non-patient / Non-visit Dr. Sloan Espinoza Work Phone: [facility] Start: 02-04-2022 Non-patient / Non-visit Dr. Sloan Espinoza Work Phone: [facility] Start: 02-03-2022 End: 02-05-2022 Evaluation and management of inpatient Dr. Phu Espinoza [facility] Start: 02-03-[address] Phu Espinoza Work Phone: [facility] Work Phone: Start: 12-21-2021 End: 12-21-[address] Phu Espinoza Work Phone: [facility] Office 3rd Flr Start: 11-24-2021 End: 11-24-[address] Phu Espinoza Work Phone: [facility] Endocrinology Start: 10-20-2021 End: 10-20-[address] Phu Espinoza Work Phone: [facility] Start: 09-21-2021 End: 09-21-[address] Phu Espinoza Work Phone: [facility] Office 3rd Flr Start: 08-25-2021 End: 08-25-[address] Phu Espinoza [facility] Start: 08-09-2021 End: 08-09-[address] Phu Espinoza Work Phone: [facility] Endocr[facility] Start: 07-21-2021 End: 07-21-[address] Phu Espinoza Work Phone: [facility], y Office 3rd Flr Start: 07-20-2021 End: 07-20-[address] Phu Espinoza Work Phone: [facility], y Office 3rd Flr Start: 07-19-2021 End: 07-19-[address] Phu Espinoza [facility] Start: 06-23-2021 End: 06-23-[address] Phu Espinoza Work Phone: [facility], y Office 3rd Flr Start: 06-09-2021 End: 06-09-[address] Phu Espinoza Work Phone: [facility] Start: 05-18-2021 End: 05-18-[address] Phu Espinoza Work Phone: [facility], Specimen Start: 05-17-2021 End: 05-17-[address] Phu Espinoza Work Phone: [facility], y Office 3rd Flr Start: 05-13-2021 End: 05-13-[address] Phu Espinoza Work Phone: [facility] End[facility] Start: 04-14-2021 End: 04-14-[address] Phu Espinoza Work Phone: [facility], y Office 3rd Flr Start: 03-10-[address] Phu Espinoza Work Phone: [facility]-Laboratory, Phy Office 3rd Flr Start: 09-14-2006 End: 09-14-2006 Patient encounter procedure Fransisco Sparks Work Phone: [facility] Start: 09-14-2006 Results Only Fransisco cherry Work Phone: [facility] Procedures Date Procedure Procedure Detail Performing Clinician Start: 04-19-2024 CT of abdomen withou t contrast Dr. Phu Espinoza MD Work Phone: Start: 06-22-2023 Plain x-ray of pelvi s and lower extremity Dr. Phu Espinoza Work Phone: Start: 04-03-[address] Phu montanez Work Phone: Start: 03-13-[address] Phu ferris Work Phone: Start: 01-11-2023 Measurement of occul t blood in stool specimen using immunoassay Dr. Phu Espinoza Work Phone: Start: 02-04-2022 CT of abdomen withou t contrast Dr. Phu Espinoza Work Phone: Start: 02-04-2022 Computed tomography of abdomen and pelvis with contrast Dr. Phu Espinoza Work Phone: Start: 02-03-2022 CT of abdomen and pe lvis without contrast Dr. Phu Espinoza Work Phone: Start: 08-25-[address] Phu montanez Work Phone: Start: 07-19-2021 CT of abdomen and pe lvis without contrast Dr. Phu Espinoza Work Phone: Start: 07-19-2021 Bacteria identified in Blood by Culture Dr. Phu Espinoza Work Phone: Start: 07-19-[address] Phu montanez Work Phone: Start: 05-18-2021 Investigation of transfusion reaction Dr. Phu Espinoza Work Phone: Start: 05-18-2021 Microbial culture, routine Dr. Phu Espinoza Work Phone: Start: 05-17-2021 Bacteria identified in Blood by Culture Dr. Phu Espinoza Work Phone: Start: 04-14-2021 Bacteria identified in Blood by Culture Dr. Phu Espinoza Work Phone: Start: 04-14-2021 Investigation of transfusion reaction Dr. Phu Espinoza Work Phone: Start: 04-14-2021 Microbial culture, routine Dr. Phu Espinoza Work Phone: Start: 02-19-2016 Mammography Fransisco Cr ane Start: 09-14-2006 CONVERTED SURGICAL PATHOLOGY Fransisco Sparks Work Phone: Bacteria identified in Blood by Culture Dr. Phu Espinoza Work Phone: Respiratory Panel (PCR) Dr. Phu Espinoza Work Phone: SARS-CoV-2 & FLU Ant igen (Rapid) Dr. Phu Espinoza Work Phone: Urine culture Dr. Phu Espinoza Work Phone: Plan of Treatment Date Care Activity Detail Author Start: 03-13-2023 Colonoscopy w/biopsy single/multiple COLONOSCOPY AND BIOPSY [facility] Start: 03-13-2023 Egd transoral biopsy single/multiple EGD BIOPSY SINGLE/MULTIPLE [facility] Start: 03-13-2023 Patient discharge [facility] Start: 02-05-2022 Patient discharge [facility] Work Phone: Start: 02-04-2022 Care planning and problem solving actions [facility] Work Phone: Start: 02-03-2022 Following clinical pathway protocol [facility] Work Phone: Start: 02-03-2022 Assessment of risk of venous thromboembolism [facility] Work Phone: Start: 02-03-2022 Care regimes management [facility] Work Phone: Start: 02-03-2022 Incentive spirometry [facility] Work Phone: Start: 02-03-2022 Inhalation therapy procedure [facility] Work Phone: Start: 02-03-2022 Insertion of catheter into peripheral vein [facility] Work Phone: Start: 02-03-2022 Introduction of urinary catheter [facility] Work Phone: Start: 02-03-2022 Measuring intake and output [facility] Work Phone: Start: 02-03-2022 Providing care according to standard [facility] Work Phone: Start: 02-03-2022 Provision of activity privileges [facility] Work Phone: Start: 02-03-2022 Referral to general surgeon [facility] Work Phone: Start: 02-03-2022 End: 02-03-2022 [facility] Work Phone: Start: 02-03-2022 Verification routine [facility] Work Phone: Start: 02-03-2022 Admission procedure [facility] Work Phone: Start: 02-03-2022 End: 02-03-2022 [facility] Work Phone: Start: 02-03-2022 End: 02-03-2022 Blood culture [facility] Work Phone: Start: 02-03-2022 Patient referral to dietitian [facility] Work Phone: Start: 02-10-2021 HPV TESTING HPV TESTING [facility] Start: 02-10-2021 PAP TESTING PAP TESTING [facility] Start: 11-26-2019 Influenza vaccination INFLUENZA (#1) [facility] Start: 02-18-2017 Mammography MAMMOGRAM [facility] Start: 1989 Urine microalbumin profile DTAP,TDAP,TD (1 - Tdap) [facility] Start: 1988 ANNUAL PCP TEAM CHRONIC DISEASE VISIT ANNUAL PCP TEAM CHRONIC DISEASE VISIT [facility] Start: 1988 Hepatitis B surface antibody level LDL CHOLESTEROL [facility] Start: 1988 HEPATITIS C SCREENING HEPATITIS C SCREENING [facility] Start: 1988 HIV SCREENING HIV SCREENING [facility] Start: 1986 ONE PNEUMOVAX PRIOR TO AGE 65 ONE PNEUMOVAX PRIOR TO AGE 65 [facility] Start: 1980 [object Object] DIABETIC FOOT EXAM [facility] Start: 1980 Hepatitis B screening URINE ALBUMIN:CREATININE RATIO [facility] Start: 1980 Hepatitis C antibody, confirmatory test DILATED RETINAL EXAM [facility] Start: 1975 HbA1c (Bld) [Mass fraction] [facility] inic Bacteria identified in Blood by Culture Blood Culture [facility] Work Phone: Bacteria identified in Urine by Culture Urine Culture [facility] Work Phone: Blood culture [facility] Work Phone: Colonoscopy [facility] Hemoglobin A1c/Hemoglobin.total in Blood [facility] Work Phone: Patient Education ED Abdominal P ain Unkn Cause Fem [facility] Work Phone: Patient referral [facility] Work Phone: T4 free measurement [facility] Work Phone: Thyroid stimulating hormone measurement [facility] Work Phone: [facility] Immunizations Immunization Date Immunization Notes Care Provider Fa kelsey 12-21-2021 Covid (Cam & Cam) Dr. Phu Espinoza Work Phone: [facility] 12-21-2021 influenza, injectabl e, quadrivalent, preservative free Dr. Phu Espinoza Work Phone: [facility] 12-21-2021 influenza, seasonal, injectable Dr. Phu Espinoza Work Phone: [facility] Payers Date Payer Category Payer Private Health Insurance [id number] 2023 Self-pay [id number] 2023 Unknown [id number] 1999 Unknown MMO [facility] MED PLUS [id number] 1999-2008 PPO [id number] Unknown [id number] Unknown [facility] PACKAGE PLAN [id number] Unknown [id number] 62 Unknown [id number] 62 Unknown [id number] 62 Unknown [id number] 62 Unknown [id number] 62 Unknown [id number] 62 Unknown [id number] 62 Unknown [id number] 62 Unknown [id number] 62 Unknown [id number] 62 Unknown [id number] 62 Unknown [id number] 62 Unknown [id number] 62 Unknown [id number] 62 Unknown [id number] 62 Social History Date Type Detail Facility Start: 02-08-2006 End: 03-07-2023 Tobacco smoking status NHIS Never smoker [facility] Start: 02-08-2006 Alcohol intake 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 Start: 07-09-2024 Sex Female (finding) [facility] Goals Date Patient Goal Desired Activity /State Functional Status Date Assessment Result Facility 02-05-2022 Functional status Up ad edgard;Bathroom Priv ilege [facility] Work Phone: Mental Status Date Assessment Result Facility 03-13-2023 Cognitive function Voice/Name [facility] Work Phone: 03-13-2023 Cognitive function Patient Orien tation Person;Place;Time [facility] Work Phone: 02-05-2022 Cognitive function Voice/Name [facility] Work Phone: 02-03-2022 Cognitive function Level Of Cons ciousness Awake;Alert;Appropriate;Follow s Commands [facility] Work Phone: Clinical Notes 03-13-2023 to 03-22-2024 Note Date & Type Note Facility 03-22-2024 Evaluation note Diagnosis Onset Date Resolution Incisional hernia acute Decembe r 2023 1:20pm CKD (chronic kidney disease) stage 3, GFR 30-59 ml/min chronic May 02 11:39am Diabetes chronic May 02, 2024 11:39am High cholesterol chronic May 02, 2024 11:39am Hypertension chronic April 11:39am Hypothyroidism chronic May 022024 11:39am Microalbuminuria chronic May 02, 2024 11:39am Obesity chronic May 02, 2024 11:39am [facility] Work Phone: 1(658) 634-479812-18-2023 History and physical note Author Jodi Agee [facility] March 13, 2023 7:14am Note Date/Time March 13, 2023 7:12am [facility] Medical Records Department [address] [place] [address] History & Physical Exam 03/13/23 0710 MR#: [id number] Acct: [id number] Name: ARLEN NGUYEN Hattie Rep #:[id number] : 1970 52 From: Jodi Agee MD PCP: Dr. Phu Espinoza MD Status:REG S MA Location: [place] [address] History and Physical Date of Admission: 03/13/23 Date of Service: 02/15/23 MR#: [id number] Acct: [id number] Name: ARLEN NGUYEN Hattie Rep #: [id number] : 1970 Provider: Dr. Jodi Agee MD Age/Sex: 52/F Location: [facility] Status: Signed Intake Vital Signs 11/17/2309:41 02/15/2314:17 Height 5 ft 7.5 in 5 ft 7 in Weight: 277 lb BMI 43.4 BP 114/75 Blood Pressure Location Rt brachial Position Sitting Respiration 18 Intake Visit Reasons: Anemia Chief Complaint: anemia Restaurant Inspector Required: No Is patient in pain?: No Allergies nut - unspecified Allergy (Verified 02/15/23 14:18) Anaphylaxispeanut Allergy (Verified 02/15/23 14:18) Anaphylaxisshellfish derived Allergy (Verified 02/15/23 14:18) Anaphylaxiscodeine Adverse Reaction (Verified 02/15/23 14:18) Rashprednisone Adverse Reaction (Verified 02/15/23 14:18) Othersertraline HCl [From Zoloft] Adverse Reaction (Verified 02/15/23 14:18) Other Medications albuterol sulfate 90 mcg/actuation aerosol inhaler (Ventolin HFA) 1 puff inhalation Q4H PRN PRN Shortness Of Breath 12/01/13 [History Confirmed 02/15/23] epinephrine 0.3 mg/0.3 mL injection, auto-injector 0.3 mg (0.3 mL) IM PRN PRN Anaphylaxis #2 syringes 12/01/13 [Rx Confirmed 02/15/23] metformin 750 mg tablet,extended release 24 hr (Glucophage XR) 1,000 mg PO BID 12/01/13 [History Confirmed 02/15/23] paroxetine HCl 30 mg tablet (Paxil) 40 mg PO DAILY 12/01/13 [History Confirmed 02/15/23] zolpidem 10 mg tablet (Ambien) 5 mg PO QHS 12/01/13 [History Confirmed 02/15/23] epinephrine 0.3 mg/0.3 mL injection, auto-injector 0.3 mg (0.3 mL) IJ X1 PRN Anaphylaxis ##1 02/03/19 [Rx Confirmed 02/15/23] atorvastatin 40 mg tablet 40 mg PO DAILY 02/03/21 [History Confirmed 02/15/23] cetirizine 10 mg tablet 10 mg PO DAILY 02/03/21 [History Confirmed 02/15/23] lisinopril 40 mg tablet 40 mg PO DAILY 02/03/21 [History Confirmed 02/15/23] insulin lispro 100 unit/mL subcutaneous solution (Humalog U-100 Insulin) 100 unit continuous subcutaneous infusion .continuous #90 mL 08/08/22 [Rx Confirmed 02/15/23] blood-glucose sensor (Dexcom G6 Sensor device) #3 ea 10/05/22 [Rx Confirmed 02/15/23] blood-glucose transmitter (Dexcom G6 Transmitter device) #1 ea 01/12/23 [Rx Confirmed 02/15/23] levothyroxine 25 mcg tablet 25 mcg PO 02/15/23 [History Confirmed 02/15/23] pantoprazole 40 mg tablet,delayed release 40 mg PO DAILY #30 tabs 02/15/23 [Rx Confirmed 02/15/23] PFSH Medical History Acute pharyngitis, unspecified Allergies Arthritis Carpal tunnel syndrome delivery delivered Depression Gall stones Hearing problem Hepatitis A High blood triglycerides High cholesterol Hives Hypertension Hypothyroidism Insulin pump in place Kidney disease Migraines Morbid obesity with BMI of 45.0-49.9, adult MRSA (methicillin resistant Staphylococcus aureus) Neuropathy Psoriatic arthritis SIRS (systemic inflammatory response syndrome) Tonsillectomy planned Surgical History History of cholecystectomy History of removal of ovarian cyst Family History Other Alcohol abuse Anxiety Arthritis Asthma Bleeding disorder Bowel disease Depression Diabetes Hypertension Severe allergy Social History household members: none Smoking Status: Never smoker alcohol intake: current alcohol intake frequency: 0-2 drinks per day substance use type: does not use what type of physical activity do you participate in: walking HPI HPI HPI: 52-year-old female presents for anemia and epigastric pain. Patient's last hemoglobin was 10.8 previously has been running between 10 and mid '. Patient states she did have EGD a long time ago never had a colonoscopy. Patient had a Cologuard 1 to 2 years ago that was negative also fecal occult that was negative 01/11/23. Patient states she had this epigastric pain for about a month states it seems to be worse later in the day rates it at 3/10 patient does occasionally take Tums. Patient does not take any other PPI or other [id number] medications. Patient is adopted does not know her familyhistory. Patient has bowel movements daily denies any blood. Patient's son does have Crohn's disease. ROS General General: Yes fatigue; No weight change, appetite, colon cancer or breast cancer HEENT HEENT: No difficulty swallowing, eye injury, eye surgery, swollen glands or hoarseness Endo Endocrine: Yes diabetes mellitus; No thyroid disease, thyroid cancer, Hair loss, heat intolerance or cold intolerance Skin Skin: No rash or changing moles Musc Musculoskeletal: Yes arthritis; No back problems, rheumatoid arthritis, gout or joint pain Cardio Cardiovascular: Yes high blood pressure; No murmur, pacemaker, heart disease, atrial fibrillation, heart attack, heart stent, palpitations, shortness of breath with exertion or chest pain Psych Psychiatric: Yes depression and anxiety; No hearing voices Resp Respiratory: No shortness of breath, No sleep apnea, No cough, No COPD, Yes asthma, No emphysema and No wheezing Gastro Gastrointestinal: Yes abdominal pain, Yes nausea or vomiting, No diarrhea, No constipation, No blood in stool, Yes acid reflux, No hemorrhoids, No ulcers, No gallbladder problem and No black,tarry stools Jr Hematologic: No blood thinners, No blood disorders, Yes bleeding, Yes anemia andNo blood clots Neuro Neurologic: No numbness and No tingling Exam Const General: cooperative, healthy appearing, comfortable and no acute distress [facility] Head: normocephalic and atraumatic Neck Neck: supple Resp Effort & Inspection: normal respiratory effort Cardio Rate: regular rate GI Inspection: non-distended Palpation: soft and tender in the epigastrum Skin General: no rashes or lesions noted Neuro General: CN's II-XI intact bilaterally Extrem General: normal to inspection Psych Mental Status: mental status grossly normal Attitude: cooperative Assessment and Plan Assessment and Plan (1) Anemia: (2) Epigastric pain: Status: Acute Orders: Orders Colonoscopy Today EGD Today Medications: New pantoprazole Take at night as you take the levothyroxine in the morning 40 mg PO DAILY 30 tabs 4RF Plan Will give patient some Protonix for her epigastric pain as it sounds like GERD/gastritis. I have discussed the above with the patient. I have offered the patient esophagogastroduodenoscopy and colonoscopy for evaluation. I have explained the risks/benefits of the procedure and described the procedure. I have discussed the risks with the patient, including but not limited to: infection, bleeding, perforation of the GI tract requiring emergency surgery, inability to complete the procedure, injury to any internal organs, complications of anesthesia, etc. - the patient understands and agrees to proceed. I have answered all the patient's questions to the patient's satisfaction and the patient has no further questions. The patient has been given instructions for the colon cleansing preparation. 1 day of clears, MiraLAX Dulcolax split prep. Jodi Agee M.D. Pager: [phone] [facility] [address] [place] [address], [address] [place] [address] Office: [phone] Coding Level of Care Code Off vis,new,level 3 Diagnoses Anemia D64.9 Epigastric pain R10.13 02/15/23 1437 <Electronically signed by Jodi Agee MD> Date Jodi Agee MD 03/13/23 0712 <Electronically signed by Jodi Agee MD> Cosigner Signature (if applicable): CC: Dr. Phu Espinoza MD; Dr. Jodi Agee MD~ Signed ADDENDUM by Dr. Jodi Agee MD on 03/13/23 at 0714 Addendum I have examined the patient and the H&P has been reviewed. There are no clinicalchanges since date of exam. 03/13/23 07<Electronically signed by Jodi Agee MD> Cosigner Signature (if applicable): cc: Dr. Phu Espinoza MD; Dr. Jodi Agee MD ~* Signed [facility] Work Phone: [phone] 396-720912-18-2023 Procedure [facility] 03-13-2023 Procedure [facility]12-18-2023 Procedure note [facility]12-18-2023 Procedure [facility] Evaluation note* Diagnosis Onset Date Resolution Status Diabetes chronic High cholesterol chronic Hypertension chronic Hypothyroidism chronic Morbid obesity with BMI of 45.0-49.9, adult chronic Diabetes chronic Distal paresthesia chronic High cholesterol chronic Hypertension chronic Hypothyroidism chronic Vitamin D deficiency [facility] Work Phone: evaluation note* Diagnosis Onset Date Resolution Status Diabetes chronic High cholesterol chronic Hypertension chronic Hypothyroidism chronic Morbid obesity with BMI of 45.0-49.9, adult chronic Diabetes chronic Distal paresthesia chronic High cholesterol chronic Hypertension chronic Hypothyroidism chronic Vitamin D deficiency chronic Diabetes chronic Hypertension chronic Hypothyroidism chronic Morbid obesity with BMI of 45.0-49.9, adult [facility] Work Phone: Evaluation note* Diagnosis Onset Date Resolution Status Diabetes chronic Distal paresthesia chronic High cholesterol chronic Hypertension chronic Hypothyroidism chronic Vitamin D deficiency chronic Diabetes chronic Hypertension chronic Hypothyroidism chronic Morbid obesity with BMI of 45.0-49.9, [facility] Work Phone: Evaluation note* Diagnosis Onset Date Resolution Status Diabetes chronic Hypertension chronic Hypothyroidism chronic Morbid obesity with BMI of 45.0-49.9, adult [facility] Work Phone: Evaluation note* Diagnosis Onset Date Resolution Status Diabetes chronic Hypertension chronic Obesity (BMI 30-39.9) chroni c Abdominal pain acute Abdominal pain, RLQ acute Fever acute History of diabetes mellitus acute Nausea acute SIRS (systemic inflammatory response syndrome) acute Vomiting acute History of chronic kidney disease chronic [facility] Work Phone: Evaluation note* Diagnosis Onset Date Resolution Status Diabetes chronic Hypertension chronic Obesity (BMI 30-39.9) chroni c Abdominal pain acute Abdominal pain, RLQ acute History of diabetes mellitus acute History of chronic kidney disease chronic Fever resolved Nausea resolved Vomiting resolved [facility] Work Phone: Evaluation note* Diagnosis Onset Date Resolution Status Acute pharyngitis, unspecified acute Shingles acute Diabetes chronic Obesity (BMI 30-39.9) [facility] Work Phone: Evaluation note* Diagnosis Onset Date Resolution Status CKD (chronic kidney disease) stage 3, GFR 30-59 ml/min chronic Diabetes chronic Obesity [facility] Work Phone: Evaluation note* Diagnosis Onset Date Resolution Status Diabetes chronic Obesity [facility] Work Phone: Evaluation note* Diagnosis Onset Date Resolution Status Diabetes chronic Obesity chronic Epigastric pain acute Anemia noneactive Fatigue acute Depression chronic Diabetes chronic Hypertension chronic Hypothyroidism chronic Obesity chronic Vitamin D deficiency chronic [facility] Work Phone: Evaluation note* Diagnosis Onset Date Resolution Status Epigastric pain acute Anemia noneactive Fatigue acute Depression chronic Diabetes chronic Hypertension chronic Hypothyroidism chronic Obesity chronic Vitamin D deficiency chronic [facility] Work Phone: Evaluation note* Diagnosis Onset Date Resolution Status Fatigue acute Depression chronic Diabetes chronic Hypertension chronic Hypothyroidism chronic Obesity chronic Vitamin D deficiency [facility] Work Phone: Hospital Discharge instructions Additional Instructions Your CAT scan normal appendix today. No other acute findings. With your fever all your labs are normal including COVID and influenza. Continue clear liquid diet next 12 to 24 hours. Tylenol as needed. If pain intensifies or worsens in your right lower quadrant abdomen, return for reevaluation.[facility] Work Phone: Reason for referral (narrative)No reason for referral information [facility]WSt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 COORDINATOR-DM-NPP MAILED 1 M FU Reason for Visit Diabetes High cholesterol Hypertension Hypothyroidism Morbid obesity with BMI of 45.0-49.9, adult Diabetes Distal paresthesia High cholesterol Hypertension Hypothyroidism Vitamin D deficiency Chief Complaint AFTER SCHOOL PROGRAM COORDINATOR-DM-NPP MAILED 1 M FU KIDNEY STONES Reason for Visit Diabetes High cholesterol Hypertension Hypothyroidism Morbid obesity with BMI of 45.0-49.9, adult Diabetes Distal paresthesia High cholesterol Hypertension Hypothyroidism Vitamin D deficiency Chief Complaint AFTER SCHOOL PROGRAM COORDINATOR-DM-NPP MAILED 1 M FU KIDNEY STONES 2 M FU Reason for Visit Diabetes High cholesterol Hypertension Hypothyroidism Morbid obesity with BMI of 45.0-49.9, adult Diabetes Distal paresthesia High cholesterol Hypertension Hypothyroidism Vitamin D deficiency Diabetes Hypertension Hypothyroidism Morbid obesity with BMI of 45.0-49.9, adult Chief Complaint 1 M FU KIDNEY STONES 2 M FU Reason for Visit Diabetes Distal paresthesia High cholesterol Hypertension Hypothyroidism Vitamin D deficiency Diabetes Hypertension Hypothyroidism Morbid obesity with BMI of 45.0-49.9, adult Chief Complaint KIDNEY STONES 2 M FU EORDER Reason for Visit Diabetes Hypertension Hypothyroidism Morbid obesity with BMI of 45.0-49.9, adult Chief Complaint EORDER 3 M FU SIRS, ABDOMINAL PAIN UNCLEAR ETIOLOGY Reason for Visit Diabetes Hypertension Obesity (BMI 30-39.9) Abdominal pain Abdominal pain, RLQ Fever History of diabetes mellitus Nausea SIRS (systemic inflammatory response syndrome) Vomiting History of chronic kidney disease Chief Complaint EORDER 3 M FU SIRS, ABDOMINAL PAIN UNCLEAR ETIOLOGY SIRS, ABDOMINAL PAIN UNCLEAR ETIOLOGY SIRS, ABDOMINAL PAIN UNCLEAR ETIOLOGY SIRS, ABDOMINAL PAIN UNCLEAR ETIOLOGY Reason for Visit Diabetes Hypertension Obesity (BMI 30-39.9) Abdominal pain Abdominal pain, RLQ Fever History of diabetes mellitus Nausea SIRS (systemic inflammatory response syndrome) Vomiting History of chronic kidney disease Chief Complaint EORDER 3 M FU SIRS, ABDOMINAL PAIN UNCLEAR ETIOLOGY SIRS, ABDOMINAL PAIN UNCLEAR ETIOLOGY SIRS, ABDOMINAL PAIN UNCLEAR ETIOLOGY SIRS, ABDOMINAL PAIN UNCLEAR ETIOLOGY Reason for Visit Diabetes Hypertension Obesity (BMI 30-39.9) Abdominal pain Abdominal pain, RLQ History of diabetes mellitus History of chronic kidney disease Fever Nausea Vomiting Chief Complaint SORE THROAT CONCERN FOR MRSA 6 M FU Reason for Visit Acute pharyngitis, u nspecified Shingles Diabetes Obesity (BMI 30-39.9) Chief Complaint 3 M FU E-ORDER Reason for Visit CKD (chronic kidney disease) stage 3, GFR 30-59 ml/min Diabetes Obesity Chief Complaint 3 M FU LABSPEC Reason for Visit Diabetes Obesity Chief Complaint 3 M FU LABSPEC Anemia 4 M FU E-ORDER Reason for Visit Diabetes Obesity Epigastric pain Anemia Fatigue Depression Diabetes Hypertension Hypothyroidism Obesity Vitamin D deficiency Chief Complaint LABSPEC Anemia 4 M FU E-ORDER Reason for Visit Epigastric pain Anemia Fatigue Depression Diabetes Hypertension Hypothyroidism Obesity Vitamin D deficiency Chief Complaint 4 M FU E-ORDER R HIP PAIN Reason for Visit Fatigue Depression Diabetes Hypertension Hypothyroidism Obesity Vitamin D deficiency Chief Complaint Admit Date UMBICAL HERNIA March 22, 2024 1:20pm Umbilical hernia without obstruction or gangrene April 19, 2024 8:17am 3 M FU May 02, 2024 1 1:39am EORDER May 02, 2024 1 2:41pm Reason for Visit Admit Date Incisional hernia March 22, 2024 1:20pm CKD (chronic kidney disease) stage 3, GF R 30-59 ml/min May 02, 2024 11:39am Diabetes May 02, 2024 1 1:39am High cholesterol May 02, 2024 1 1:39am Hypertension May 02, 2024 1 1:39am Hypothyroidism May 02, 2024 1 1:39am Microalbuminuria May 02, 2024 1 1:39am Obesity May 02, 2024 1 1:39am Family History No Family History Records Found Relationship Condition Age at Onset Recorded Date/T toro Not Specified Severe allergy Unknown Disorder of intestine Unknown Diabetes mellitus Unknown Alcohol abuse Unknown Anxiety Unknown Arthritis Unknown Depression Unknown Hemorrhagic disorder Unknown Hypertension Unknown Asthma Unknown Advance Directives No Advanced Directives Records Found Advance Directive Response Recorded Date/ Time Advance Directives No September 11 11:46am Living Will No February 03 021 7:01pm Power of Heavy Forger Helper Yes February 03, 2021 7:01pm Advance Directive Response Recorded Date/ Time Advance Directives No September 11 10:46am Living Will No February 03 022 7:20pm Power of Heavy Forger Helper No February 03, 2022 7:20pm Advance Directive Response Recorded Date/ Time Name of Medical Power of Heavy Forger Helper tammy nguyen February 03, 2022 11:15pm Advance Directives No September 11 10:46am Living Will No February 03 022 11:15pm Power of Heavy Forger Helper Yes February 03, 2022 11:15pm Advance Directive Response Recorded Date/ Time Advance Directives No September 11 11:46am Living Will No February 04, 022 12:15am Power of Heavy Forger Helper Yes February 04, 2022 12:15am Advance Directive Response Recorded Date/ Time Advance Directives No September 11 15 10:46am Living Will No February 03, 2 022 11:15pm Power of Heavy Forger Helper Yes February 03, 2022 11:15pm Advance Directive Response Recorded Date/ Time Name of Medical Power of Heavy Forger Helper [place] March 07, 2023 1:20pm Advance Directives No September 11 10:46am Living Will Yes March 07, 2 023 1:20pm Power of Heavy Forger Helper Yes March 07, 2023 1:20pm Advance Directive Response Recorded Date/ Time Name of Medical Power of Heavy Forger Helper [place] March 07, 2023 2:20pm Advance Directives No September 11 11:46am Living Will Yes March 07, 2 023 2:20pm Power of Heavy Forger Helper Yes March 07, 2023 2:20pm Advance Directive Response Recorded Date/ Time Advance Directives No September 11 11:46am Summary Purpose Additional Source Comments Source Comments (unrecognize d section and content) In the event this informatio n is protected by the Federal Confidentiality of Alcohol and Drug Abuse Patient Records regulations: The Federal rules restrict any use of the information to criminally investigate or prosecute any alcohol or drug abuse patient.[facility] Goals (unrecognized section and content) Goals may be documented in a n alternate sectionGoals may be documented in an alternate sectionGoals may be documented in an alternate sectionGoals may be documented in an alternate sectionGoals may be documented in an alternate sectionGoals may be documented in an alternate sectionGoals may be documented in an alternate sectionGoals may be documented in an alternate sectionGoals may be documented in an alternate sectionGoals may be documented in an alternate sectionGoals may be documented in an alternate sectionGoals may be documented in an alternate sectionGoals may be documented in an alternate sectionGoals may be documented in an alternate sectionGoals may be documented in an alternate sectionGoals may be documented in an alternate section Care Teams (unrecognized sec tion and content) Team Status: Active Member Role Status Dates Dr. Phu Espinoza MD Family Provider Active Dr. Phu Espinoza MD Primary Care Provider Active Team Status: Inactive Member Role Status Dates Dr. Phu Espinoza MD Primary Care Provider, Referring Provider Active ADELITA Ryan Attending Provider Active Team Status: Inactive Member Role Status Dates Dr. Phu Espinoza MD Primary Care Provider, Referring Provider Active Evin Easton PA PA Attending Provider Active Team Status: Inactive Member Role Status Dates Dr. Phu Espinoza MD Primary Care Provider, Referring Provider Active Roger SIMMONS PA Attending Provider Active Team Status: Inactive Member Role Status Dates Dr. Phu Espinoza MD Primary Care Provider, Attending Provider Active Team Status: Inactive Member Role Status Dates Dr. Phu Espinoza MD Primary Care Provider, Attending Provider Active ADELITA Ryan Other Provider Active Team Status: Active Member Role Status Dates Dr. Phu Espinoza MD Primary Care Provi john, Attending Provider, Referring Provider Active Team Status: Inactive Member Role Status Dates Dr. Phu Espinoza MD Primary Care Provi john, Attending Provider, Referring Provider Active Team Status: Inactive Member Role Status Dates Dr. Phu Espinoza MD Primary Care Provider, Referring Provider Active Dr. Jodi Agee MD Attending Provider Active Team Status: Inactive Member Role Status Dates Dr. Phu Espinoza MD Primary Care Provider Active ADELITA Ryan Attending Provider, Referring Pr ovider Active Team Status: Active Member Role Status Dates Dr. Phu Espinoza MD Primary Care Provider, Referring Provider Active Dr. Jodi Agee MD Attending Provider, Other Pro vider Active Team Status: Active Member Role Status Dates Dr. Phu Espinoza MD Primary Care Provider Active Team Status: Inactive Member Role Status Dates Dr. Phu Espinoza MD Primary Care Provider Active Start: March 22, 2024 End: March 22, 2024 Dr. Phu Espinoza MD Referring Provider Active Start: March 22, 2024 End: March 22, 2024 Dr. Jodi Agee MD Attending Provider Active Start: March 22, 2024 End: March 22, 2024 Team Status: Inactive Member Role Status Dates Dr. Phu Espinoza MD Primary Care Provider Active Start: April 19, 2024 End: April 19, 2024 Dr. Jodi Agee MD Attending Provider Active Start: April 19, 2024 End: April 19, 2024 Dr. Jodi Agee MD Referring Provider Active Start: April 19, 2024 End: April 19, 2024 Team Status: Inactive Member Role Status Dates Dr. Phu Espinoza MD Primary Care Provider Active Start: May 02, 2024 End: May 02, 2024 Dr. Phu Espinoza MD Referring Provider Active Start: May 02, 2024 End: May 02, 2024 Massiel Gibbons NP-C Attending Provider Active Start: May 02, 2024 End: May 02, 2024 Team Status: Inactive Member Role Status Dates Dr. Phu Espinoza MD Primary Care Provider Active Start: May 02, 2024 End: May 02, 2024 Massiel Gibbons AFTER SCHOOL PROGRAM COORDINATOR-C Attending Provider Active Start: May 02, 2024 End: May 02, 2024 Massiel Gibbons AFTER SCHOOL PROGRAM COORDINATOR-C Referring Provider Active Start: May 02, 2024 End: May 02, 2024 Team Status: Inactive Member Role Status Dates Dr. Phu Espinoza MD Primary Care Provider Active Start: July 03, 2024 End: July 03, 2024 Dr. Phu Espinoza MD Attending Provider Active Start: July 03, 2024 End: July 03, 2024 Dr. Phu Espinoza MD Referring Provider Active Start: July 03, 2024 End: July 03, 2024 INFORMATION SOURCE (unrecogn ized section and content) DATE CREATED AUTHOR 07/11/2024 [facility] FOR RECORDS PERTAINING TO PATIENTS WHO ARE OR HAVE BEEN ENROLLED IN A CHEMICAL DEPENDENCY/SUBSTANCEABUSE PROGRAM, SOME INFORMATION MAY BE OMITTED. This clinical summary was aggregated from multiple sources. Caution should be exercised in using it in the provision of clinical care. This summary normalizes information from multiple sources, and as a consequence, information in this document may materially change the coding, format and clinical context of patient data. In addition, data may be omitted in some cases. CLINICAL DECISIONS SHOULD BE BASED ON THE PRIMARY CLINICAL RECORDS. [facility] ComplexS[facility]. provides no warranty or guarantee of the accuracy or completeness of information in this document.
--- NOTE | 2024-10-05 20:00 | RAD_ITS ---
PROCEDURE: CHEST 1 VIEW (PORTABLE) 10/05/2024 REASON FOR EXAM: CHEST PAIN TECHNIQUE: Frontal view of the chest. COMPARISON: Chest radiographs on 03/04/2024 and 03/03/2021 FINDINGS: Hardware: None Heart: Cardiac and mediastinal contours are stable given differences in technique. Lungs: No focal consolidation or pleural effusion. Eventration of the right hemidiaphragm is unchanged. Bones: Unremarkable RAD/Chest 1 View (Portable) IMPRESSION: No acute cardiopulmonary abnormality. Reading Location: [id number]
--- NOTE | 2024-10-05 20:15 | CM.ED ---
Social Work Date of referral: 10/05/24 Reason for referral: Advanced Care Directives (ACD's) not in electronic medical records Referred by: Social Work Identification Patient provided consent to Social Work visit. Set Rider requested a copy of patient's ACD's which patient stated she would bring in. JOSE LUIS Beal. SERVICE ORDER TAKER
[2024-10-05 20:34] LABS: D-Dimer Quantitative (DVT/PE) 0.42 FEU/ug/m (0.27-0.49)
[2024-10-05 20:36] LABS: Anion Gap 15 (5-15); BUN 29 mg/dL (4-19); BUN/Creat Ratio 20.9 RATIO (10-20); Calcium,Total 10.2 mg/dL (7.6-11.0); Carbon Dioxide 21.3 mmol/L (21.0-32.0); Chloride 104 mmol/L (98-108); Estimated Creatinine Clearance 66.52 ml/min (50-250); Glucose 103 mg/dL (70-99); Potassium 4.8 mmol/L (3.3-5.1)
[2024-10-05 20:49] LABS: Troponin T High Sensitivity 21 ng/L (<=14)
--- NOTE | 2024-10-05 21:10 | PCM.HP.STD ---
HPI - General General Date of Admission: 10/05/24 Date of Service: 10/05/24 Chief Complaint: Chest pain HPI Narrative ARLEN NGUYEN, is a 54 F who presented to [facility] ED on 10/05/2024 with chest pain. Medical history significant for class III obesity, type 2 diabetes, hypertension, hyperlipidemia, hypothyroidism, mood disorder, GERD and iron deficiency anemia. Patient reports intermittent chest discomfort for the past 3 days. The discomfort will radiate into her left arm at times. She will feel short of breath and dizzy with these episodes. In the ED she was normotensive, in normal sinus rhythm and stable on room air. CBC benign. BMP with creatinine 1.37, baseline around 1.0. Troponin trend 21 > 22. EKG showed normal sinus rhythm with no ST changes. Chest x-ray was unremarkable. Last echo was from 2014 and patient has never had stress testing done. Given chest pain with need for ACS rule out, hospitalist was contacted for admission. I saw the patient at bedside in the ED, was present. Patient was sitting back in bed fairly comfortably and in no acute distress. She did have a flat affect and appeared depressed. She reported ongoing chest pain of mild to moderate intensity currently, similar to earlier this evening. She denies any shortness of breath. Denies any other acute concerns. Will be admitted for further management. [facility] Medical History Post-menopausal Wears contact lenses Anxiety Thyroid disease Fatty liver Hepatitis History of renal disease GERD (gastroesophageal reflux disease) Non-smoker Shortness of breath on exertion MRSA (methicillin resistant Staphylococcus aureus) Acute pharyngitis, unspecified Kidney disease Insulin pump in place SIRS (systemic inflammatory response syndrome) Hypothyroidism Tonsillectomy planned delivery delivered Neuropathy Hives High blood triglycerides Hepatitis A Hearing problem Gall stones Carpal tunnel syndrome Arthritis Allergies Depression Psoriatic arthritis High cholesterol Hypertension Migraines Morbid obesity with BMI of 45.0-49.9, adult Home Medications Medication Instructions Recorded Last Taken Type albuterol sulfate 90 mcg/actuation 1 puff inhalation Q4H PRN PRN 12/01/13 01/28/22 History aerosol inhaler (Ventolin HFA) Shortness Of Breath zolpidem 10 mg tablet (Ambien) 5 mg PO QHS PRN sleep 12/01/13 10/04/24 History epinephrine 0.3 mg/0.3 mL 0.3 mg (0.3 mL) IJ X1 PRN 02/03/19 Unknown Rx injection, auto-injector Anaphylaxis ##1 atorvastatin 40 mg tablet 40 mg PO DAILY 02/03/21 10/04/24 History cetirizine 10 mg tablet 10 mg PO DAILY 02/03/21 10/04/24 History valsartan 320 mg tablet 320 mg PO QHS 03/07/23 10/04/24 History metformin 1,000 mg tablet 1,000 mg PO BID 11/01/23 10/04/24 History paroxetine HCl 40 mg tablet 40 mg PO QDAY 11/01/23 10/04/24 History insulin lispro 200 unit/mL (3 mL) 170 unit (0.85 mL) subcut ONCE 05/02/24 Unknown Rx subcutaneous pen (Humalog KwikPen #76.5 mL U-200 Insulin) levothyroxine 125 mcg tablet 125 mcg PO QDAY #90 tabs 05/02/24 10/04/24 Rx empagliflozin 25 mg tablet 25 mg PO QDAY #90 tabs 06/10/24 10/05/24 Rx (Jardiance) finerenone 10 mg tablet (Kerendia) 10 mg PO DAILY 10/05/24 Unknown History pantoprazole 40 mg tablet,delayed 40 mg PO DAILY 10/05/24 10/05/24 History release polysaccharide iron complex 150 mg 150 mg PO DAILY 10/05/24 10/05/24 History iron capsule (Ferrex) sulfamethoxazole 800 1 tab PO QHS 10/05/24 10/04/24 History mg-trimethoprim 160 mg tablet Allergy/AdvReac Type Severity Reaction Status Date / Time nut - unspecified Allergy Anaphylaxis Verified 10/05/24 19:16 peanut Allergy Anaphylaxis Verified 10/05/24 19:16 shellfish derived Allergy Anaphylaxis Verified 10/05/24 19:16 codeine AdvReac Rash Verified 10/05/24 19:16 prednisone AdvReac Other Verified 10/05/24 19:16 sertraline HCl (From Zoloft) AdvReac Other Verified 10/05/24 19:16 Family History Other Alcohol abuse Anxiety Arthritis Asthma Bleeding disorder Bowel disease Depression Diabetes Hypertension Severe allergy Surgical History History of endometrial ablation History of removal of ovarian cyst History of cholecystectomy Social History household members: none Smoking Status: Never smoker alcohol intake: current alcohol intake frequency: 0-2 drinks per day substance use type: does not use what type of physical activity do you participate in: walking ROS Constitutional Constitutional: Reports fatigue; Denies chills, fever(s) or weakness Eyes Eyes: Denies change in vision Cardiovascular Cardiovascular: Reports chest pain; Denies dyspnea on exertion, edema, lightheadedness, orthopnea or palpitations Respiratory/Chest Respiratory/Chest: Denies shortness of breath at rest Gastrointestinal Gastrointestinal: Denies abdominal pain Musculoskeletal Musculoskeletal: Denies arthralgias or myalgias Psychiatric Psychiatric: Reports anxiety and depression Vital Signs Vital Signs Vital Signs: 10/05/24 19:13 10/05/24 19:23 10/05/24 19:43 Temperature 98.1 F Temperature Source Oral Pulse Rate 81 73 Respiratory Rate 20 H Respiratory Effort Normal Non-Labored Blood Pressure 123/67 H 112/66 Blood Pressure Mean 85 Pulse Ox 100 Oxygen Delivery Method Room Air 10/05/24 19:47 10/05/24 20:11 10/05/24 21:00 Temperature Temperature Source Pulse Rate 80 82 Respiratory Rate 13 18 Respiratory Effort Blood Pressure 130/74 H 135/65 H Blood Pressure Mean 92 88 Pulse Ox 92 94 Oxygen Delivery Method Room Air Room Air Room Air Weight Weight: 132 kg Body Mass Index (BMI) 45.6 Physical Exam Const alert, oriented x3 and no apparent distress Constitutional Narrative: Middle-aged female, class III obesity, mildly fatigued with flat affect and depressed appearing, otherwise sitting back comfortably in bed and in no acute distress. General Appearance: cooperative and comfortable HEENT normocephalic, head/scalp atraumatic, hearing grossly normal bilaterally, nasal mucous membranes and turbinates normal and moist oral mucous membranes Eyes PERRL, EOMs intact bilaterally and conjunctivae normal Neck full ROM Chest inspection of chest normal Resp normal respiratory effort, normal air movement, no use of accessory muscles and clear to auscultation bilaterally Cardio regular rate, regular rhythm, no murmurs and peripheral pulses 2+ throughout GI normal to inspection, nondistended, normoactive bowel sounds, soft to palpation, non-tender and non-distended Back/Spine normal ROM Extremity normal to inspection, full ROM and no pedal edema Skin no rashes or lesions noted Psych mental status grossly normal Psych Narrative: Flat affect. Mood & Affect: depressed and anxious Results Lab / Micro Data 10/05/24 19:37 10/05/24 21:25 Labs: Laboratory Results - last 24 hr 10/05/24 19:37: WBC 9.5, RBC 4.56, Hgb 10.9 L, Hct 34.7 L, MCV 76.1 L, MCH 23.9 L, MCHC 31.4 L, RDW Std Deviation 42.5, RDW Coeff of Libby 15.5 H, Plt Count 276, MPV 9.7, Immature Gran % (Auto) 0.200, Neut % (Auto) 51.7, Lymph % (Auto) 36.5, [place] % (Auto) 9.5, Eos % (Auto) 1.6, Baso % (Auto) 0.5, Absolute Neuts (auto) 4.9, Absolute Lymphs (auto) 3.48, Nucleated RBC % 0, D-Dimer Quant (PE/DVT) Cancelled, Sodium 140, Potassium 4.8, Chloride 104, Carbon Dioxide 21.3, Anion Gap 15, BUN 29 H, Creatinine 1.37 H, Estim Creat Clear Calc 66.52, Est GFR (MDRD) Non-Af 46 L, BUN/Creatinine Ratio 20.9 H, Glucose 103 H, Calcium 10.2, Troponin T High Sens 21 H 10/05/24 20:17: D-Dimer Quant (PE/DVT) 0.42 Imaging Radiology Impression Chest X-Ray 10/05/24 20:00 IMPRESSION: No acute cardiopulmonary abnormality. Reading Location: [id number] Assessment & Plan Assessment/Plan (1) Chest pain: PLAN: Plan Patient is a 54-year-old female who presented [facility] ED on 10/05/2024 with chest pain. 1. Chest pain with mildly elevated troponins, ACS rule out – Admit under observation status to PCU. Presented with intermittent chest pain for 3 days not worse with exertion or better with rest. Troponin trend 21 > 22. EKG normal and chest x-ray negative. Suspect troponins are elevated in setting of mild THADDEUS as below. Lower concern for ACS but cannot rule out. Echo and nuclear stress test ordered. Lipid panel, A1c and TSH ordered. Holding home BP meds as below. Monitor cardiac telemetry. 2. Mild THADDEUS – Creatinine 1.37 on admit, baseline around 1.0. Suspect prerenal etiology due to home medications. Given 1 L of IV fluids on admit, follow-up a.m. BMP and monitor urine output. Hold home valsartan, finerenone and empagliflozin for now. 3. Mood disorder – Patient with flat affect and depressed/anxious appearing on admit. Have concerned this could be contributing to her chest pain presentation as above. Is on paroxetine 40 mg daily which is highest recommended dose, will continue this. Continue home Ambien at night as needed. Chronic medical conditions: – Class III obesity: BMI 45 on admit. Complicates hospital course, care and prognosis. – Type 2 diabetes mellitus: Follows with outpatient endocrinology, last office visit in April. Utilizes insulin pump and CGM. A1c 6.0% on admit, prior A1c's were around 6.5-7.0. Okay to use insulin pump and CGM while inpatient. Holding home empagliflozin as above. – Hypertension: Holding home valsartan and finerenone as above. – Hyperlipidemia: Continue home statin. – Chronic iron deficiency anemia: Hemoglobin 10.9, MCV 76 on admit which is at her baseline. Continue home iron supplement. – GERD: Continue home PPI. – Hypothyroidism: TSH ordered as above. Continue home Synthroid. DVT prophylaxis: Lovenox twice daily CODE STATUS: Full code, verified Expected disposition: Home, TBD Total clinical time spent by myself addressing the patient's medical issues, reviewing all the data, and collaborating with patient's care team: 75 minutes. Charges/Coding Visit Charges Inpatient E&M: 48588 Init Hosp L3
--- NOTE | 2024-10-05 21:14 | ECHOCS_ITS ---
Reason For Study Reason For Study: Chest pain Procedure This was a 2D Doppler, Color Flow transthoracic echocardiogram. The study was technically difficult. Exam performed portable in patient room. Left Ventricle Normal size and thickness. The LV ejection fraction is 65 %. Stage 1 diastolic dysfunction. Right Ventricle Normal right ventricle. Atria The left and right atria are normal. Mitral Valve Trivial mitral valve insufficiency. Tricuspid Valve Trivial tricuspid valve insufficiency. Unable to estimate RV systolic pressure due to insufficient tricuspid regurgitant envelope. Aortic Valve Trisinus/trileaflet aortic valve. Pulmonic Valve The pulmonic valve is not well visualized. Great Vessels Normal sized aortic root. Pericardium/Pleural No pericardial effusion. Medication Diluted definity 1.5ml given slow IV push to enhance endocardial definition. MMode/2D Measurements & Calculations LVIDd: 5.4 cm IVSd: 1.1 cm Ao root diam: 3.2 cm LVIDs: 3.2 cm LVPWd: 1.0 cm RVDd: 3.2 cm FS: 40.1 % LAV(MOD-bp): 44.2 ml LVAd ap4: 40.6 cm2 LVAd ap2: 34.3 cm2 LAV(MOD-bp) Indexed: 18.7 ml/m2 LVLd ap4: 8.9 cm LVLd ap2: 8.1 cm LAV(MOD-sp2): 40.3 ml EDV(MOD-sp4): 150.4 ml EDV(MOD-sp2): 118.2 ml LAV(MOD-sp4): 43.9 ml EDV(sp4-el): 156.5 ml EDV(sp2-el): 124.3 ml LVAs ap4: 20.7 cm2 LVAs ap2: 19.2 cm2 LVLs ap4: 7.2 cm LVLs ap2: 6.8 cm ESV(MOD-sp4): 47.9 ml ESV(MOD-sp2): 43.3 ml ESV(sp4-el): 50.8 ml ESV(sp2-el): 46.1 ml EF(MOD-sp4): 68.2 % EF(MOD-sp2): 63.3 % EF(sp4-el): 67.6 % SV(MOD-sp4): 102.5 ml SV(MOD-sp2): 74.9 ml SV(sp4-el): 105.7 ml SI(MOD-sp4): 43.3 ml/m2 SI(MOD-sp2): 31.6 ml/m2 LA A4 area: 17.4 cm2 LA dimension(2D): 3.2 cm RA A4 area: 13.7 cm2 TAPSE: 2.4 cm Time Measurements MV dec time: 0.29 sec Doppler Measurements & Calculations MV E max barry: 48.9 cm/sec Lat Peak E' Barry: 10.0 cm/sec Med Peak E' Barry: 8.1 cm/sec MV A max barry: 81.4 cm/sec E/E' lat: 4.9 E/E' med: 6.0 MV E/A: 0.60 MV dec slope: 171.6 cm/sec2 Ao V2 max: 155.5 cm/sec LV V1 max: 139.6 cm/sec Ao max P.9 mmHg LV V1 max P.8 mmHg PA V2 max: 75.1 cm/sec ECHO/Echo Complete W/ Contrast Interpretation Summary The LV ejection fraction is 65 %. Stage 1 diastolic dysfunction. Ordering Physician: Junior Dunn Referring Physician: Phu Espinoza Chi Performed By: Maine Akbar RDCS
--- OUTSIDE RECORDS SUMMARY | 2024-10-05 21:28 | XMS RPT_ITS | CCD ---
Author Organization [facility] Care Team Providers Care Student Ambassador Name Role Phone Charles Rae Primary Care [...] Other Provider Dr. Marcellus Ceballos Attending Provider [phone] Alexis, Dr. Phu Aldana Primary Care Provider Alexis, Dr. Phu Aldana Referring Provider Jemma SIMMONS, PA Evin Sofia Attending Provider IRIS Lemus Attending Provider Shai DIRECTOR WORK-C Massiel Attending Provider Alexis, Dr. Phu Aldana Primary Care Provider Alexis, Dr. Phu Aldana Referring Provider Shai, DIRECTOR WORK-C Massiel Attending Provider Alexis, Dr. Phu Aldana Primary Care Provider Alexis, Dr. Phu Aldana Referring Provider Shai, DIRECTOR WORK-C Massiel Attending Provider Alexis, Dr. Phu Aldana Primary Care Provider Alexis, Dr. Phu Aldana Referring Provider Shai DIRECTOR WORK-C Massiel Attending Provider Dr. Jodi Agee Attending Provider Dr. Jodi Agee Other Provider Alexis, Dr. Phu Aldana Primary Care Provider Alexis, Dr. Phu Aldana Referring Provider LISY GibbonsC Massiel Attending Provider Alexis, Dr. Phu Aldana Primary Care Provider Alexis, Dr. Phu Aldana Referring Provider Shai DIRECTOR WORK-C Massiel Attending Provider Dr. Jodi Agee Attending Provider Dr. Jodi Agee Other Provider Alexis DICKENS, Dr. Phu Aldana Primary Care Provider Alexis DICKENS, Dr. Phu Aldana Referring Provider Cyndie DICKENS, Dr. Zapata Attending Provider Cyndie DICKENS, Dr. Zapata Referring Provider Shai DIRECTOR WORK-C, Massiel Attending Provider Shai DIRECTOR WORK-CMassiel Referring Provider Dr. Phu Espinoza MD, Chi Attending Provider [phone] Robotham, Jodi Referring Unavailable Robotham, Jodi Attending [...] Codeine Drug Allergy 6 Mental Status Change [facility] (20 sources) predniSONE Drug Allergy 6 Mental Status Change [facility] (1 source) Sertraline Drug Allergy 2 Unknown [facility] (8 sources) Nuts (not including peanuts) Allergy to substance 2 Anaphylaxis [facility] Work Phone: (20 sources) peanut allergenic extract Drug Allergy 2 Anaphylaxis [facility] (20 sources) Sertraline; Translations: [sertraline HCl] Drug Allergy 2 Other [facility] (20 sources) Shellfish; Translations: [shellfish derived] Allergy to substance 2 Anaphylaxis [facility] (14 sources) nut - unspecified; Translations: [nut - unspecified] Allergy to substance 2 Anaphylaxis [facility] (1 source) Codeine Drug Allergy 5 [facility] Repository (1 source) peanut allergenic extract Drug Allergy 5 [facility] Rep[facility] (1 source) predniSONE Drug Allergy 5 [facility] Repository Medications Current Medications [...] mg PO daily June 10, 2024 11:55am [id number] 0.3 ml EPINEPHrine 1 mg/ml auto-injector (20 [...] 11, 2022 1:00am February 15, 2023 3:18pm 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 Start: 05-11-2022 End: 02-15-2023 take 1 tablet by mouth once daily Sulfamethoxazole-Trimethoprim Discontinu ed 1 TABLET PO DAILY May 11, 2022 1:00am February 15, 2023 3:18pm 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 valACYclovir 1000 mg oral tablet (10 sources) [...] deficiency, unspecified] Chronic Other aftercare (1 source) 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 (current) use of insulin; Translations: [penitentiary (current) use of insulin] Onset: 05-02-2024 Episodic [...] 07-03-2024 Neutrophils (Bld) [#/Vol] 4.9 10*3/uL 2.0-7.7 [facility] Anion gap in Serum or Plasma Ordered By: Phu Espinoza on 07-03-2024 Anion gap [Moles/Vol] 12 mmol/L - [facility] BUN/creatinine ratioOrdered By: Phu Espinoza on 07-03-2024 Urea nitrogen/Creatinine [Mass ratio] 19.0 mg/mg - [facility] Basophil percentageOrdered B y: Phu Espinoza on 07-03-2024 Basophils/100 WBC (Bld) 1.0 % 0-1 [facility] Bilirubin, totalOrdered By: Phu Espinoza on 07-03-2024 Bilirubin [Mass/Vol] 0.41 mg/dL 0.00-1.30 [facility] CBC W/Diff, Automatedon Absolute Lymph 2.19 X10 3/uL Normal 0.83-4.51 [facility] Comment on above: Performed By: #### M 100.678 #### [facility] [address] [place], [address] Absolute Neut 4.9 X10 3/uL Normal 2.0-7.7 [facility] Comment on above: Performed By: #### M 100.678 #### [facility] [address] [place], [address] Basophils/100 WBC (Bld) 1.0 % Normal 0-1 [facility] Comment on above: Performed By: #### M 100.678 #### [facility] [address] [place], [address] Eosinophils/100 WBC (Bld) 1.8 % Normal 0-5 [facility] Comment on above: Performed By: #### M 100.678 #### [facility] [address] [place], [address] Erythrocyte distribution width (RBC) [Ratio] 15.5 % High 11.6-14.6 [facility] Comment on above: Performed By: #### M 100.678 #### [facility] [address] [place], [address] Hematocrit (Bld) [Volume fraction] 35.7 % Low 37-47 [facility] Comment on above: Performed By: #### M 100.678 #### [facility] [address] [place], [address] Hemoglobin (Bld) [Mass/Vol] 10.8 g/dL Low 12.0-15.0 [facility] Comment on above: Performed By: #### M 100.678 #### [facility] [address] [place], [address] IG% 0.500 Normal 0.0-0.9 [facility] Comment on above: Result Comment: IG% - Immature Granulocytes (promyelocytes, myelocytes and metamyelocytes) > 1% indicates that a LEFT SHIFT is Present. Performed By: #### M 100.678 #### [facility] [address] [place], [address] Lymphocytes/100 WBC (Bld) 26.7 % Normal 19-41 [facility] Comment on above: Performed By: #### M 100.678 #### [facility] [address] [place], [address] MCH (RBC) [Entitic mass] 24.2 pg Low 27.0-32.0 [facility] Comment on above: Performed By: #### M 100.678 #### [facility] [address] [place], [address] MCHC (RBC) [Mass/Vol] 30.3 g/dL Low 32-36 [facility] Comment on above: Performed By: #### M 100.678 #### [facility] [address] [place], [address] MCV (RBC) [Entitic vol] 80.0 fL Low 81-99 [facility] Comment on above: Performed By: #### M 100.678 #### [facility] [address] [place], [address] Monocytes/100 WBC (Bld) 9.9 % Normal 0-10 [facility] [place] [facility] Comment on above: Performed By: #### M 100.678 #### [facility] [address] [place], [address] Neutrophils/100 WBC (Bld) 60.1 % Normal 47-70 [facility] Comment on above: Performed By: #### M 100.678 #### [facility] [address] [place], [address] Nucleated RBC (Bld) [#/Vol] 0 10*3/uL Normal 0-5 [facility] Comment on above: Performed By: #### M 100.678 #### [facility] [address] [place], [address] Platelet mean volume (Bld) [Entitic vol] 9.8 fL Normal 6.2-12.0 [facility] Comment on above: Performed By: #### M 100.678 #### [facility] [address] [place], [address] Platelets (Bld) [#/Vol] 282 10*3/uL Normal 150-450 [facility] Comment on above: Performed By: #### M 100.678 #### [facility] [address] [place], [address] RBC (Bld) [#/Vol] 4.46 10*6/uL Normal 4.2-5.4 [facility] Comment on above: Performed By: #### M 100.678 #### [facility] [address] [place], [address] RDW SD 44.4 fl High 35.1-43.9 [facility] Comment on above: Performed By: #### M 100.678 #### [facility] [address] [place], [address] WBC (Bld) [#/Vol] 8.2 10*3/uL Normal 4.4-11.0 [facility] Comment on above: Performed By: #### M 100.678 #### [facility] [address] [place], [place], [id number] Carbon dioxide, total [Moles /volume] in Central venous bloodOrdered By: Phu Espinoza on 07-03-2024 CO2 [Moles/Vol] 28.2 mmol/L 21.0-32.0 [facility] Chloride assayOrdered By: Sloan Espinoza on 07-03-2024 Chloride [Moles/Vol] 102 mmol/L 98-108 [facility] Comprehensive Metabolic Prof ilon 07-03-2024 Albumin [Mass/Vol] 4.2 g/dL Normal 3.5-5.0 [facility] Comment on above: Performed By: #### M 100.678 #### [facility] [address] [place], [address] Albumin/Globulin [Mass ratio] 1.5 {ratio} Normal 0.9-2.4 [facility] Comment on above: Performed By: #### M 100.678 #### [facility] [address] [place], [address] ALK PHOS 50 U/L Normal 35-104 [facility] Comment on above: Performed By: #### M 100.678 #### [facility] [address] [place], [address] ALT [Catalytic activity/Vol] 62 U/L High <=34 [facility] Comment on above: Performed By: #### M 100.678 #### [facility] [address] [place], [address] AST [Catalytic activity/Vol] 67 U/L High <=31 [facility] Comment on above: Performed By: #### M 100.678 #### [facility] [address] [place], [address] Bilirubin [Mass/Vol] 0.41 mg/dL Normal 0.00-1.30 [facility] Comment on above: Performed By: #### M 100.678 #### [facility] [address] [place], [address] BUN/CRE 19.0 RATIO Normal 10-20 [facility] Comment on above: Performed By: #### M 100.678 #### [facility] [address] [place], [address] Calcium [Mass/Vol] 9.4 mg/dL Normal 7.6-11.0 [facility] Comment on above: Performed By: #### M 100.678 #### [facility] [address] [place], [address] Chloride [Moles/Vol] 102 mmol/L Normal 98-108 [facility] Comment on above: Performed By: #### M 100.678 #### [facility] [address] [place], [address] CO2 [Moles/Vol] 28.2 mmol/L Normal 21.0-32.0 [facility] Comment on above: Performed By: #### M 100.678 #### [facility] [address] [place], [address] Creatinine [Mass/Vol] 1.00 mg/dL Normal 0.70-1.20 [facility] Comment on above: Performed By: #### M 100.678 #### [facility] [address] [place], [address] GAP 12 Normal 5-15 [facility] Comment on above: Performed By: #### M 100.678 #### [facility] [address] [place], [address] GFR/1.73 sq M.predicted among non-blacks MDRD (S/P/Bld) [Vol rate/Area] 67 mL/min/{1.73_m2} Normal >60 [facility] Comment on above: Result Comment: mL/m in/1.73m2 CKD-EPI Creatinine Equation (2020) Performed By: #### M 100.678 #### [facility] [address] [place], [address] Globulin (S) [Mass/Vol] 2.8 g/dL Normal 2.2-4.2 [facility] [place] [facility] Comment on above: Performed By: #### M 100.678 #### [facility] [address] [place], [address] Glucose [Mass/Vol] 133 mg/dL High 70-99 [facility] Comment on above: Performed By: #### M 100.678 #### [facility] [address] [place], [address] Potassium [Moles/Vol] 4.3 mmol/L Normal 3.3-5.1 [facility] Comment on above: Performed By: #### M 100.678 #### [facility] [address] [place], [address] Sodium [Moles/Vol] 142 mmol/L Normal 133-145 [facility] Comment on above: Performed By: #### M 100.678 #### [facility] [address] [place], [place], [address] T PROT 7.0 g/dL Normal 5.9-8.4 [facility] Comment on above: Performed By: #### M 100.678 #### [facility] [address] [place], [place], [address] Urea nitrogen [Mass/Vol] 19 mg/dL Normal 4-19 [facility] Comment on above: Performed By: #### M 100.678 #### [facility] [address] [place], [place], [address] Eosinophil percentageOrdered By: Phu Espinoza on 07-03-2024 Eosinophils/100 WBC (Bld) 1.8 % 0-5 [facility] Erythrocyte distribution wid th (RBC) [Ratio]Ordered By: Phu Espinoza on 07-03-2024 Erythrocyte distribution width (RBC) [Entitic vol] 44.4 fL High 35.1-43.9 [facility] Erythrocyte distribution wid th ratioOrdered By: Phu Espinoza 07-03-2024 Erythrocyte distribution width (RBC) [Ratio] 15.5 % High 11.6-14.6 [facility] GFR/1.73 sq M.predicted sanchez g non-blacks MDRD (S/P/Bld) [Vol rate/Area]Ordered By: Phu Espinoza 07-03-2024 Estimated GFR (MDRD) Non-Af Amer 67 >60 [facility] Comment on above: mL/min/1.73m2 CKD-EP I Creatinine Equation (2020) Hematocrit Auto (Bld) [Volum e fraction]Ordered By: Phu Espinoza 07-03-2024 Hematocrit (Bld) [Volume fraction] 35.7 % Low 37-47 [facility] Hemoglobin measurementOrdere d By: Phu Espinoza 07-03-2024 Hemoglobin (Bld) [Mass/Vol] 10.8 g/dL Low 12.0-15.0 [facility] Immature granulocytes/100 WB C Auto (Bld)Ordered By: Phu Espinoza on 07-03-2024 Immature granulocytes/100 WBC (Bld) 0.500 % 0.0-0.9 [facility] Comment on above: IG% - Immature Granu locytes (promyelocytes, myelocytes and metamyelocytes) > 1% indicates that a LEFT SHIFT is Present. Laboratory - Chemistry and C hemistry - challengeOrdered By: Phu Espinoza on 07-03-2024 AST [Catalytic activity/Vol] 67 U/L High <32 [facility] Lymphocytes Auto (Unsp spec) [#/Vol]Ordered By: Phu Espinoza on 07-03-2024 Lymphocytes (Bld) [#/Vol] 2.19 10*3/uL 0.83-4.5 1 [facility] Lymphocytes/100 WBC Auto (Un sp spec)Ordered By: Phu Espinoza on 07-03-2024 Lymphocytes/100 WBC (Bld) 26.7 % 19-41 [facility] MCV (mean corpuscular volume ) determinationOrdered By: Phu Espinoza on 07-03-2024 MCV (RBC) [Entitic vol] 80.0 fL Low 81-99 [facility] Mean corpuscular hemoglobin (MCH) determinationOrdered By: Phu Espinoza on 07-03-2024 MCH (RBC) [Entitic mass] 24.2 pg Low 27.0-32.0 [facility] Mean corpuscular hemoglobin concentration (MCHC) determinationOrdered By: Phu Espinoza on 07-03-2024 MCHC (RBC) [Mass/Vol] 30.3 g/dL Low 32-36 [facility] Mean platelet volume determi nationOrdered By: Phu Espinoza on 07-03-2024 Platelet mean volume (Bld) [Entitic vol] 9.8 fL 6.2-12.0 [facility] Monocyte percentageOrdered B y: Phu Espinoza on 07-03-2024 Monocytes/100 WBC (Bld) 9.9 % 0-10 [facility] Neutrophil percentageOrdered By: Phu Espinoza on 07-03-2024 Neutrophils/100 WBC (Bld) 60.1 % 47-70 [facility] Nucleated red blood cell per centageOrdered By: Phu Espinoza on 07-03-2024 Nucleated RBC/100 WBC (Bld) [Ratio] 0 % 0-5 [facility] Platelet countOrdered By: Sloan Espinoza on 07-03-2024 Platelets (Bld) [#/Vol] 282 10*3/uL 150-450 [facility] Potassium (Unsp spec) [Mass/ Vol]Ordered By: Phu Espinoza on 07-03-2024 Potassium [Moles/Vol] 4.3 mmol/L 3.3-5.1 [facility] RBC Auto (Bld) [#/Vol]Ordere d By: Phu Espinoza on 07-03-2024 RBC (Bld) [#/Vol] 4.46 10*6/uL 4.2-5.4 [facility] Serum creatinine measurement (mass/volume)Ordered By: Phu Espinoza on 07-03-2024 Creatinine [Mass/Vol] 1.00 mg/dL 0.70-1.20 [facility] Serum globulin measurementOr dered By: Phu Espinoza 07-03-2024 Globulin (S) [Mass/Vol] 2.8 g/dL 2.2-4.2 [facility] [place] [facility] Serum glucose measurement (m ass/volume)Ordered By: Phu Espinoza on 07-03-2024 Glucose [Mass/Vol] 133 mg/dL High 70-99 [facility] Serum or plasma alanine tobar otransferase (ALT) measurementOrdered By: Phu Espinoza 07-03-2024 ALT [Catalytic activity/Vol] 62 U/L High <35 [facility] Serum or plasma albumin thiago urement (mass/volume)Ordered By: Phu Espinoza 07-03-2024 Albumin [Mass/Vol] 4.2 g/dL 3.5-5.0 [facility] Serum or plasma albumin/glob ulin mass ratioOrdered By: Phu Espinoza 07-03-2024 Albumin/Globulin [Mass ratio] 1.5 {ratio} 0.9-2.4 [facility] Serum or plasma alkaline meg sphatase measurementOrdered By: Phu Espinoza 07-03-2024 ALP [Catalytic activity/Vol] 50 U/L 35-104 [facility] Serum or plasma calcium thiago urement (mass/volume)Ordered By: Phu Espinoza 07-03-2024 Calcium [Mass/Vol] 9.4 mg/dL 7.6-11.0 [facility] Serum or plasma urea nitroge n measurement (mass/volume)Ordered By: Phu Espinoza on 07-03-2024 Urea nitrogen [Mass/Vol] 19 mg/dL 4-19 [facility] Sodium levelOrdered By: Phu Espinoza on 07-03-2024 Sodium [Moles/Vol] 142 mmol/L 133-145 [facility] TSH DL <= 0.005 mIU/L QnOrde red By: hPu Espinoza on 07-03-2024 Thyroid Stimulating Hormone (TSH) 0.593 uIU/mL 0.300-4.200 [facility] Thyroid Stim Hormone (TSH)on 07-03-2024 TSH 0.593 uIU/mL Normal 0.300-4.200 [facility] Comment on above: Performed By: #### M 100.678 #### [facility] [place], [address] Total proteinOrdered By: Phu Espinoza on 07-03-2024 Protein [Mass/Vol] 7.0 g/dL 5.9-8.4 [facility] White blood cell (WBC) count Ordered By: Phu Espinoza on 07-03-2024 WBC (Bld) [#/Vol] 8.2 10*3/uL 4.4-11.0 [facility] Direct serum free thyroxine (FT4) measurementOrdered By: Massiel Gibbons on 05-02-2024 Free T4 [Mass/Vol] 1.05 ng/dL 0.76-1.46 [facility] Endocrinology Visit Reporton 05-02-2024 Endocrinology Visit Report [facility] [address] [place], [place] [address] OFFICE VISIT Date of Service: 05/02/24 MR#: [id number] Acct: [id number] Name: ARLEN NGUYEN Hattie Rep #: [id number] : 1970 Provider: ADELITA martin Age/Sex: 54/F Location: [facility] Status: Signed Intake Vital Signs 01/31/24 11:40 [...] acute concerns (more content not included)... Normal [facility] - Hematology and Cell countsOrdered By: Massiel Gibbons on 05-02-2024 HbA1c (Bld) [Mass fraction] 6.7 % High 4.2-6.3 [facility] T4 Free Directon 05-02-2024 T4 FREE DIRECT 1.05 ng/dL Normal 0.76-1.46 [facility] Comment on above: Performed By: #### M 100.678 #### [facility] [address] [place], [address] TSH QnOrdered By: Massiel martin on 05-02-2024 Thyroid Stimulating Hormone (TSH) 2.130 uIU/mL 0.358-3.740 [facility] Thyroid Stim Hormone (TSH)on 05-02-2024 TSH 2.130 uIU/mL Normal 0.358-3.740 [facility] Comment on above: Performed By: #### M 100.678 #### [facility] [address] [place], [address] Abdomen without IV Contrasto n 04-19-2024 Abdomen without IV Contrast [facility] Imaging Services [address] [place] [address] Abdomen without IV Contrast MR#: [id number] Acct: [id number] Name: ARLEN NGUYEN Rep #: [id number] : 1970 F 54 From: Roverto Andujar PCP: Dr. Phu Espinoza MD Status: REG CLI Study: Abdomen without IV Contrast Date of Exam: 03/28 07/19 Exam# [id number] Ordering Dr: Jodi Agee MD -[id number] STUDY: CT Abdomen W/O Contrast Injection [...] [facility] Reading Location ID and State: [facility] / [place] , Service support , CC: Dr. Phu Espinoza MD; Dr. Jodi Agee MD Cleaner Furniture: Signed Normal [facility] Surgery Visit Reporton 03-22 Surgery Visit Report [facility] [address] [place] [address] OFFICE VISIT Date of Service: 03/22/24 MR#: [id number] Acct: [id number] Name: ARLEN NGUYEN Hattie Rep #: [id number] : 1970 Provider: Dr. Jodi back MD Age/Sex: 53/F Location: [facility] Status: Signed Intake Vital Signs 01/31/24 11:40 [...] atrial fi (more content not included)... Normal [facility] Chest PA and Lateralon 03-04 Chest PA and Lateral [facility] Imaging Services [address] [place] [address] Chest PA and Lateral MR#: [id number] Acct: [id number] Name: ARLEN NGUYEN Rep #: [id number] : 1970 F 53 From: Eduard Andujar PCP: Dr. Phu Espinoza MD Status: REG [facility] Study: Chest PA and Lateral Date of Exam: 03/04/24 Exam# [id number] Ordering Dr: Phu Espinoza MD -[id number] INDICATION: WHEEZING EXAMINATION/TECHNIQ UE: X-RAY - [...] EST , CC: Dr. Phu Espinoza MD Cleaner Furniture: Signed [facility] M100.678on 03-04-2024 M100.678 Pending SARS-CoV-2 (COVID 19) Negative INFLUENZA A Negative INFLUENZA B Negative RSV PCR Negative Normal [facility] Comment on above: Performed By: #### M 100.678 #### [facility] [address] [place], [address] T4 Free Directon 02-16-2024 T4 FREE DIRECT 1.01 ng/dL Normal 0.76-1.46 [facility] Comment on above: Performed By: #### L 506.0400, L597.9520 #### [facility] [address] [place], [place], [address] Thyroid Stim Hormone (TSH)on 02-16-2024 TSH 2.020 uIU/mL Normal 0.358-3.740 [facility] Comment on above: Performed By: #### L 506.0400, L546.9520 #### [facility] [address] [place], [address] Endocrinology Visit Reporton 01-31-2024 Endocrinology Visit Report [facility] [address] [place], [place] [address] OFFICE VISIT Date of Service: 01/31/24 MR#: [id number] Acct: [id number] Name: ARLEN NGUYEN Hattie Rep #: [id number] : 1970 Provider: ADELITA martin Age/Sex: 53/F Location: [facility] Status: Signed Intake Vital Signs 11/01/23 11:43 [...] 5.7. Levothyroxine (more content not included)... Normal [facility] SCRN MAMM (CAD)W/PRESTON Larry n 01-24-2024 SCRN MAMM (CAD)W/PRESTON LUONG [facility] Imaging Services [address] [place] [address] SCRN MAMM (CAD)W/PRESTON BILAT MR#: [id number] Acct: [id number] Name: ARLEN NGUYEN Rep #: [id number] : 1970 F 53 From: Michel thurman MD PCP: Dr. Phu Espinoza MD Status: REG CLI Study: SCRN MAMM (CAD)W/PRESTON BILAT Date of Exam: 12/27 Exam# [id number] Ordering Dr: Phu Espinoza MD -[id number] MAMMOGRAPHY - BILATERAL SCREENING REASON FOR [...] delay biopsy of a clinically suspicious abnormality. [id number] Electronically Signed: Michel Alfred MD at 9:52 EDT , CC: Dr. Phu Espinoza MD [employer]: Signed Normal [facility] CBC W/Diff, Automatedon 12-25 Absolute Lymph 2.48 X10 3/uL Normal 0.83-4.51 [facility] Comment on above: Performed By: #### L 501.9520, L500.4050, L100.0100 #### [facility] [address] [place], [address] Absolute Neut 4.4 X10 3/uL Normal 2.0-7.7 [facility] Comment on above: Performed By: #### L 501.9520, L500.4050, L100.0100 #### [facility] [address] [place], [address] Basophils/100 WBC (Bld) 0.6 % Normal 0-1 [facility] Comment on above: Performed By: #### L 501.9520, L500.4050, L100.0100 #### [facility] [address] [place], [address] Eosinophils/100 WBC (Bld) 2.4 % Normal 0-5 [facility] Comment on above: Performed By: #### L 501.9520, L500.4050, L100.0100 #### [facility] [address] [place], [address] Erythrocyte distribution width (RBC) [Ratio] 14.0 % Normal 11.6-14.6 [facility] Comment on above: Performed By: #### L 501.9520, L500.4050, L100.0100 #### [facility] [address] [place], [address] Hematocrit (Bld) [Volume fraction] 35.6 % Low 37-47 [facility] Comment on above: Performed By: #### L 501.9520, L500.4050, L100.0100 #### [facility] [address] [place], [address] Hemoglobin (Bld) [Mass/Vol] 11.0 g/dL Low 12.0-15.0 [facility] Comment on above: Performed By: #### L 501.9520, L500.4050, L100.0100 #### [facility] [address] [place], [address] IG% 0.400 Normal 0.0-0.9 [facility] Comment on above: Result Comment: IG% - Immature Granulocytes (promyelocytes, myelocytes and metamyelocytes) > 1% indicates that a LEFT SHIFT is Present. Performed By: #### L 501.9520, L500.4050, L100.0100 #### [facility] [address] [place], [address] Lymphocytes/100 WBC (Bld) 31.8 % Normal 19-41 [facility] Comment on above: Performed By: #### L 501.9520, L500.4050, L100.0100 #### [facility] [address] [place], [address] MCH (RBC) [Entitic mass] 25.3 pg Low 27.0-32.0 [facility] Comment on above: Performed By: #### L 501.9520, L500.4050, L100.0100 #### [facility] [address] [place], [address] MCHC (RBC) [Mass/Vol] 30.9 g/dL Low 32-36 [facility] Comment on above: Performed By: #### L 501.9520, L500.4050, L100.0100 #### [facility] [address] [place], [address] MCV (RBC) [Entitic vol] 82.0 fL Normal 81-99 [facility] Comment on above: Performed By: #### L 501.9520, L500.4050, L100.0100 #### [facility] [address] [place], [address] Monocytes/100 WBC (Bld) 8.8 % Normal 0-10 [facility] [place] [facility] Comment on above: Performed By: #### L 501.9520, L500.4050, L100.0100 #### [facility] [address] [place], [address] Neutrophils/100 WBC (Bld) 56.0 % Normal 47-70 [facility] Comment on above: Performed By: #### L 501.9520, L500.4050, L100.0100 #### [facility] [address] [place], [address] Nucleated RBC (Bld) [#/Vol] 0 10*3/uL Normal 0-5 [facility] Comment on above: Performed By: #### L 501.9520, L500.4050, L100.0100 #### [facility] [address] [place], [address] Platelet mean volume (Bld) [Entitic vol] 9.9 fL Normal 6.2-12.0 [facility] Comment on above: Performed By: #### L 501.9520, L500.4050, L100.0100 #### [facility] [address] [place], [address] Platelets (Bld) [#/Vol] 256 10*3/uL Normal 150-450 [facility] Comment on above: Performed By: #### L 501.9520, L500.4050, L100.0100 #### [facility] [address] [place], [address] RBC (Bld) [#/Vol] 4.34 10*6/uL Normal 4.2-5.4 [facility] Comment on above: Performed By: #### L 501.9520, L500.4050, L100.0100 #### [facility] [address] [place], [address] RDW SD 41.4 fl Normal 35.1-43.9 [facility] Comment on above: Performed By: #### L 501.9520, L500.4050, L100.0100 #### [facility] [address] [place], [address] WBC (Bld) [#/Vol] 7.8 10*3/uL Normal 4.4-11.0 [facility] Comment on above: Performed By: #### L 501.9520, L500.4050, L100.0100 #### [facility] [address] [place], [address] Comprehensive Metabolic [facility] 01-10-2024 Albumin [Mass/Vol] 3.6 g/dL Normal 3.2-5.0 [facility] Comment on above: Performed By: #### L 501.9520, L500.4050, L100.0100 #### [facility] [address] [place], [address] Albumin/Globulin [Mass ratio] 0.9 {ratio} Normal 0.9-2.4 [facility] Comment on above: Performed By: #### L 501.9520, L500.4050, L100.0100 #### [facility] [address] [place], [address] ALK P 66 U/L Normal 45-117 [facility] Comment on above: Performed By: #### L 501.9520, L500.4050, L100.0100 #### [facility] [address] [place], [address] ALT [Catalytic activity/Vol] 81 U/L High 13-56 [facility] Comment on above: Performed By: #### L 501.9520, L500.4050, L100.0100 #### [facility] [address] [place], [address] AST [Catalytic activity/Vol] 53 U/L High 15-37 [facility] Comment on above: Performed By: #### L 501.9520, L500.4050, L100.0100 #### [facility] [address] [place], [address] Bilirubin [Mass/Vol] 0.40 mg/dL Normal 0.20-1.00 [facility] Comment on above: Result Comment: For patients on eltrombopag therapy, use of Dimension [place] TBIL is not recommended. Performed By: #### L 501.9520, L500.4050, L100.0100 #### [facility] [address] [place], [address] BUN/CRE 21.7 RATIO High 10-20 [facility] Comment on above: Performed By: #### L 501.9520, L500.4050, L100.0100 #### [facility] [address] [place], [address] CA,Total 9.2 mg/dL Normal 8.5-10.1 [facility] Comment on above: Performed By: #### L 501.9520, L500.4050, L100.0100 #### [facility] [address] [place], [address] Chloride [Moles/Vol] 106 mmol/L Normal 98-107 [facility] Comment on above: Performed By: #### L 501.9520, L500.4050, L100.0100 #### [facility] [address] [place], [address] CO2 [Moles/Vol] 28.0 mmol/L Normal 21.0-32.0 [facility] Comment on above: Performed By: #### L 501.9520, L500.4050, L100.0100 #### [facility] [address] [place], [address] Creatinine [Mass/Vol] 0.97 mg/dL Normal 0.55-1.02 [facility] Comment on above: Result Comment: The validity of the calculated GFR GFRAA in patients over 70 years has not been determined. Clinical correlation is essential. Performed By: #### L 501.9520, L500.4050, L100.0100 #### [facility] [address] [place], [address] EST GFR - AA 77 mL/min Normal >60 [facility] Comment on above: Result Comment: Afri can [place] GFR Calc Performed By: #### L 501.9520, L500.4050, L100.0100 #### [facility] [address] [place], [address] GAP 7 Normal 5-15 [facility] Comment on above: Performed By: #### L 501.9520, L500.4050, L100.0100 #### [facility] [address] [place], [address] GFR/1.73 sq M.predicted among non-blacks MDRD (S/P/Bld) [Vol rate/Area] 64 mL/min/{1.73_m2} Normal >60 [facility] Comment on above: Result Comment: Non- GFR Calc Performed By: #### L 501.9520, L500.4050, L100.0100 #### [facility] [address] [place], [address] Globulin (S) [Mass/Vol] 4.0 g/dL Normal 2.2-4.2 [facility] [place] [facility] Comment on above: Performed By: #### L 501.9520, L500.4050, L100.0100 #### [facility] [address] [place], [address] Glucose [Mass/Vol] 162 mg/dL High 74-106 [facility] Comment on above: Result Comment: Fast ing Glucose result greater than or equal to 126 mg/dL suggests DIABETES MELLITUS per A.D.A. criteria. Performed By: #### L 501.9520, L500.4050, L100.0100 #### [facility] [address] [place], [address] Potassium [Moles/Vol] 4.2 mmol/L Normal 3.5-5.1 [facility] Comment on above: Performed By: #### L 501.9520, L500.4050, L100.0100 #### [facility] [address] [place], [address] Sodium [Moles/Vol] 141 mmol/L Normal 136-145 [facility] Comment on above: Performed By: #### L 501.9520, L500.4050, L100.0100 #### [facility] [address] [place], [address] T PROT 7.6 g/dL Normal 6.4-8.2 [facility] Comment on above: Performed By: #### L 501.9520, L500.4050, L100.0100 #### [facility] [address] [place], [address] Urea nitrogen [Mass/Vol] 21 mg/dL High 7-18 [facility] Comment on above: Performed By: #### L 501.9520, L500.4050, L100.0100 #### [facility] [address] [place], [address] Thyroid Stim Hormone (TSH)on 01-10-2024 TSH 5.760 uIU/mL High 0.358-3.740 [facility] Comment on above: Performed By: #### L 501.9520, L500.4050, L100.0100 #### [facility] [address] [place], [address] Endocrinology Visit Reporton 11-01-2023 Endocrinology Visit Report [facility] 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 Currently using T-slim insulin pump with [employer] G6 CGM- she is pleased with system; however, supplies are costly. Plan moving forward is to switch to [employer] 780g as she can get supplies at more affordable das. Additionally she is taking metformin 1 gm BID with food. She was previously on SGLT-2; however, it was unaffordable. BP today 132/84, improved from 08/03/23 at 1 (more content not included)... Normal [facility] Endocrinology Visit Reporton 08-03-2023 Endocrinology Visit Report [facility] [address] [facility] [place] [address] OFFICE VISIT Date of Service: 08/03/23 MR#: [id number] Acct: [id number] Name: ARLEN NGUYEN Rep #: [id number] : 1970 Provider: ADELITA martin Age/Sex: 53/F Location[place] [facility] Status: Signed Intake Vital Signs 03/02/23 11:10 [...] 5 M FU Chief Complaint: f/u diabetes Manager Drilling Required: No Is patient in pain?: No [...] DAILY 02/03/21 [History Confirmed 08/03/23] blood-glucose transmitter ([employer] G6 Transmitter device) #1 ea 01/12/23 [Rx [...] reporting c (more content not included)... Normal [facility] Culture, urineOrdered By: Sloan Espinoza on 04-03-2023 Bacteria identified Cx Nom (U) Mixed Gram Pos & Gram Neg Org [facility] Bacteria identified Cx Nom (U) Mixed Gram Pos & Gram Neg Org [facility] Glucose Glucometer (BldC) [M ass/Vol]Ordered By: Jodi Agee on 03-13-2023 Glucose [Mass/Vol] 186 mg/dL 74-106 [facility] Comment on above: MANAGEMENT OF PATIEN T CARE PER NURSING PROTOCOL Absolute lymphocyte countOrd ered By: Massiel Gibbons on 03-02-2023 Lymphocytes Auto (Unsp spec) [#/Vol] 2.72 10*3/uL 0.83-4.51 [facility] Basophil percentageOrdered B y: Massiel Gibbons on 03-02-2023 Basophils/100 WBC (Bld) 0.4 % 0-1 [facility] Cholesterol [Mass/Vol] 148 mg/dL <200 [facility] Comment on above: <200 mg/dL Desirable 200-240 mg/dL Borderline >240 mg/dL High Risk Eosinophils/100 WBC (Bld) 1.7 % 0-5 [facility] Neutrophils (Bld) [#/Vol] 3.6 10*3/uL 2.0-7.7 [facility] Neutrophils/100 WBC (Bld) 50.4 % 47-70 [facility] Triglyceride [Mass/Vol] 136 mg/dL <199 [facility] Comment on above: The drugs N-Acetylcy steine and Metamizole may falsely depress this assay.Serum Triglycerides Reference Interval Normal <150 mg/dL Borderline high 150 - 199 mg/dL High 200 - 499 mg/dL Very High > or = 500 mg/dL WBC (Bld) [#/Vol] 7.1 10*3/uL 4.4-11.0 [facility] Blood erythrocytes count (nu mber/volume)Ordered By: Massiel Gibbons on 03-02-2023 RBC (Bld) [#/Vol] 4.22 10*6/uL 4.2-5.4 [facility] Blood hemoglobin measurement (mass/volume)Ordered By: Massiel Gibbons on 03-02-2023 Hemoglobin (Bld) [Mass/Vol] 11.0 g/dL 12.0-15.0 [facility] Blood lymphocytes/100 leukoc ytesOrdered By: Massiel Gibbons on 03-02-2023 Lymphocytes/100 WBC (Bld) 38.5 % 19-41 [facility] Blood monocytes/100 leukocyt esOrdered By: Massiel Gibbons on 03-02-2023 Monocytes/100 WBC (Bld) 8.6 % 0-10 [facility] Blood platelet mean volumeOr dered By: Massiel Gibbons on 03-02-2023 Platelet mean volume (Bld) [Entitic vol] 9.8 fL 6.2-12.0 [facility] Determination of erythrocyte mean corpuscular volume (MCV)Ordered By: Massiel Gibbons on 03-02-2023 MCV (RBC) [Entitic vol] 83.2 fL 81-99 [facility] Hematocrit Auto (Bld) [Volum e fraction]Ordered By: Massiel Gibbons on 03-02-2023 Hematocrit (Bld) [Volume fraction] 35.1 % 37-47 [facility] - Chemistry and C hemistry - challengeOrdered By: Massiel Gibbons on 03-02-2023 Free T4 [Mass/Vol] 0.83 ng/dL 0.76-1.46 [facility] - Hematology and Cell countsOrdered By: Massiel Gibbons on 03-02-2023 Erythrocyte distribution width (RBC) [Entitic vol] 41.3 fL 35.1-43.9 [facility] Erythrocyte distribution width (RBC) [Ratio] 13.7 % 11.6-14.6 [facility] Immature granulocytes/100 WBC (Bld) 0.400 % 0.0-0.9 [facility] Comment on above: IG% - Immature Granu locytes (promyelocytes, myelocytes and metamyelocytes) > 1% indicates that a LEFT SHIFT is Present. MCH (RBC) [Entitic mass] 26.1 pg 27.0-32.0 [facility] Nucleated RBC/100 WBC (Bld) [Ratio] 0 % 0-5 [facility] - Hematology and Cell countson 03-02-2023 HbA1c (Bld) [Mass fraction] 7.3 % 4.2-6.3 [facility] MCHC Auto (RBC) [Mass/Vol]Or dered By: Massiel Gibbons on 03-02-2023 MCHC (RBC) [Mass/Vol] 31.3 g/dL 32-36 [facility] No Panel InformationOrdered By: Massiel Gibbons on 03-02-2023 Thyroid Stimulating Hormone (TSH) 2.85 uIU/mL 0.358-3.74 [facility] Platelets bldOrdered By: Griselda Gibbons on 03-02-2023 Platelets (Bld) [#/Vol] 284 10*3/uL 150-450 [facility] Serum or plasma cholesterol in HDL measurement (mass/volume)Ordered By: Massiel Gibbons on 03-02-2023 Cholesterol in HDL [Mass/Vol] 46 mg/dL >40 [facility] Comment on above: The drugs N-Acetylcy steine and Metamizole may falsely depress this assay. Reference Range HDL <40 mg/dL Low HDL Cholesterol HDL >or= 60 mg/dL High HDL Cholesterol Serum or plasma cholesterol in VLDL measurement (mass/volume)Ordered By: Massiel Gibbons on 03-02-2023 Cholesterol in VLDL [Mass/Vol] 27 mg/dL 5-40 [facility] Serum or plasma ferritin lizette surement (mass/volume)Ordered By: Massiel Gibbons on 03-02-2023 Ferritin [Mass/Vol] 23 ng/mL 8-252 [facility] Serum or plasma low density lipoprotein (LDL) cholesterol measurement (mass/volume)Ordered By: Massiel Gibbons on 03-02-2023 Cholesterol in LDL [Mass/Vol] 75 mg/dL 0-130 [facility] Blood hemoglobin measurement (mass/volume)Ordered By: Phu Espinoza on 02-08-2023 Hemoglobin (Bld) [Mass/Vol] 10.8 g/dL 12.0-15.0 [facility] Hematocrit Auto (Bld) [Volum e fraction]Ordered By: Phu Espinoza on 02-08-2023 Hematocrit (Bld) [Volume fraction] 33.9 % 37-47 [facility] Stool gastrointestinal hemog lobin detection by immunologic methodOrdered By: Phu Espinoza on 01-11-2023 Lower GI hemoglobin IA Ql (Stl) [facility] Lower GI hemoglobin IA Ql (Stl) [facility] Absolute lymphocyte countOrd ered By: Phu Espinoza on 01-09-2023 Lymphocytes Auto (Unsp spec) [#/Vol] 2.49 10*3/uL 0.83-4.51 [facility] Basophil percentageOrdered B y: Phu Espinoza on 01-09-2023 Basophils/100 WBC (Bld) 0.5 % 0-1 [facility] Eosinophils/100 WBC (Bld) 2.2 % 0-5 [facility] Neutrophils (Bld) [#/Vol] 4.3 10*3/uL 2.0-7.7 [facility] Neutrophils/100 WBC (Bld) 55.4 % 47-70 [facility] WBC (Bld) [#/Vol] 7.7 10*3/uL 4.4-11.0 [facility] Blood erythrocytes count (nu mber/volume)Ordered By: Phu Espinoza on 01-09-2023 RBC (Bld) [#/Vol] 4.35 10*6/uL 4.2-5.4 [facility] Blood hemoglobin measurement (mass/volume)Ordered By: Phu Espinoza on 01-09-2023 Hemoglobin (Bld) [Mass/Vol] 11.4 g/dL 12.0-15.0 [facility] Blood lymphocytes/100 leukoc ytesOrdered By: Phu Espinoza on 01-09-2023 Lymphocytes/100 WBC (Bld) 32.5 % 19-41 [facility] Blood monocytes/100 leukocyt esOrdered By: Phu Espinoza on 01-09-2023 Monocytes/100 WBC (Bld) 8.9 % 0-10 [facility] Blood platelet mean volumeOr dered By: Phu Espinoza on 01-09-2023 Platelet mean volume (Bld) [Entitic vol] 10.3 fL 6.2-12.0 [facility] Determination of erythrocyte mean corpuscular volume (MCV)Ordered By: Phu Espinoza on 01-09-2023 MCV (RBC) [Entitic vol] 85.5 fL 81-99 [facility] Hematocrit Auto (Bld) [Volum e fraction]Ordered By: Phu Espinoza on 01-09-2023 Hematocrit (Bld) [Volume fraction] 37.2 % 37-47 [facility] Hemoglobin in reticulocytes (mass per reticulocyte)Ordered By: Phu Espinoza on 01-09-2023 Hemoglobin (Reticulocytes) [Entitic mass] 29.3 pg 30-35 [facility] Iron measurement (mass/mass) Ordered By: Phu Espinoza on 01-09-2023 Iron (Unsp spec) [Mass/Mass] 44 ug/dL 50-170 [facility] - Chemistry and C hemistry - challengeOrdered By: Phu Espinoza on 01-09-2023 Cobalamin (Vitamin B12) [Mass/Vol] 293 pg/mL 211-911 [facility] - Hematology and Cell countsOrdered By: Phu Espinoza on 01-09-2023 Erythrocyte distribution width (RBC) [Entitic vol] 41.7 fL 35.1-43.9 [facility] Erythrocyte distribution width (RBC) [Ratio] 13.3 % 11.6-14.6 [facility] Immature granulocytes/100 WBC (Bld) 0.500 % 0.0-0.9 [facility] Comment on above: IG% - Immature Granu locytes (promyelocytes, myelocytes and metamyelocytes) > 1% indicates that a LEFT SHIFT is Present. MCH (RBC) [Entitic mass] 26.2 pg 27.0-32.0 [facility] Nucleated RBC/100 WBC (Bld) [Ratio] 0 % 0-5 [facility] MCHC Auto (RBC) [Mass/Vol]Or dered By: Phu Espinoza on 01-09-2023 MCHC (RBC) [Mass/Vol] 30.6 g/dL 32-36 [facility] No Panel InformationOrdered By: Phu Espinoza 01-09-2023 Immature Reticulocyte Fraction 27.90 % 3.00-15.90 [facility] Reticulocyte Count 2.36 % 0.5-1.5 [facility] Total Iron Binding Capacity 482 ug/dL 250-450 [facility] Platelets bldOrdered By: Phu Espinoza on 01-09-2023 Platelets (Bld) [#/Vol] 271 10*3/uL 150-450 [facility] Serum or plasma ferritin lizette surement (mass/volume)Ordered By: Phu Snowok on 01-09-2023 Ferritin [Mass/Vol] 18 ng/mL 8-252 [facility] Serum or plasma folate measu rement (mass/volume)Ordered By: Phu Espinoza on 01-09-2023 Folate [Mass/Vol] 13.00 ng/mL 3.1-55.4 [facility] Serum or plasma iron saturat ion measurement (mass fraction)Ordered By: Phu Espinoza on 01-09-2023 Iron saturation [Mass fraction] 9.1 % 15.0-55.0 [facility] Absolute lymphocyte countOrd ered By: Phu Alexis on 01-03-2023 Lymphocytes Auto (Unsp spec) [#/Vol] 2.77 10*3/uL 0.83-4.51 [facility] Basophil percentageOrdered B y: Phu [place]ok on 01-03-2023 Basophils/100 WBC (Bld) 0.5 % 0-1 [facility] [place] [facility] Bilirubin [Mass/Vol] 0.30 mg/dL 0.20-1.00 [facility] Comment on above: For patients on eltr ombopag therapy, use of Dimension [place] TBIL is not recommended. Chloride [Moles/Vol] 105 mmol/L 98-107 [facility] Eosinophils/100 WBC (Bld) 1.4 % 0-5 [facility] Glucose [Mass/Vol] 137 mg/dL 74-106 [facility] Comment on above: Fasting Glucose resu lt greater than or equal to 126 mg/dL suggests DIABETES MELLITUS per A.D.A. criteria. Neutrophils (Bld) [#/Vol] 4.1 10*3/uL 2.0-7.7 [facility] Neutrophils/100 WBC (Bld) 53.4 % 47-70 [facility] Potassium [Moles/Vol] 4.3 mmol/L 3.5-5.1 [facility] Protein [Mass/Vol] 7.5 g/dL 6.4-8.2 [facility] Sodium [Moles/Vol] 140 mmol/L 136-145 [facility] WBC (Bld) [#/Vol] 7.7 10*3/uL 4.4-11.0 [facility] Blood erythrocytes count (nu mber/volume)Ordered By: Phu Espinoza on 01-03-2023 RBC (Bld) [#/Vol] 4.14 10*6/uL 4.2-5.4 [facility] Blood hemoglobin measurement (mass/volume)Ordered By: Phu Espinoza on 01-03-2023 Hemoglobin (Bld) [Mass/Vol] 10.8 g/dL 12.0-15.0 [facility] Blood lymphocytes/100 leukoc ytesOrdered By: Phu Espinoza on 01-03-2023 Lymphocytes/100 WBC (Bld) 36.0 % 19-41 [facility] Blood monocytes/100 leukocyt esOrdered By: Phu Espinoza on 01-03-2023 Monocytes/100 WBC (Bld) 8.3 % 0-10 [facility] Blood platelet mean volumeOr dered By: Phu Espinoza on 01-03-2023 Platelet mean volume (Bld) [Entitic vol] 10.2 fL 6.2-12.0 [facility] Determination of erythrocyte mean corpuscular volume (MCV)Ordered By: Phu Espinoza on 01-03-2023 MCV (RBC) [Entitic vol] 83.6 fL 81-99 [facility] Hematocrit Auto (Bld) [Volum e fraction]Ordered By: Phu Espinoza on 01-03-2023 Hematocrit (Bld) [Volume fraction] 34.6 % 37-47 [facility] Laboratory - Chemistry and C hemistry - challengeOrdered By: Phu Espinoza on 01-03-2023 ALP [Catalytic activity/Vol] 50 U/L 45-117 [facility] ALT [Catalytic activity/Vol] 31 U/L 13-56 [facility] CO2 [Moles/Vol] 26.0 mmol/L 21.0-32.0 [facility] Globulin (S) [Mass/Vol] 3.8 g/dL 2.2-4.2 [facility] Urea nitrogen/Creatinine [Mass ratio] 17.8 mg/mg 10-20 [facility] Laboratory - Hematology and Cell countsOrdered By: Phu Espinoza on 01-03-2023 Erythrocyte distribution width (RBC) [Entitic vol] 40.8 fL 35.1-43.9 [facility] Erythrocyte distribution width (RBC) [Ratio] 13.4 % 11.6-14.6 [facility] Immature granulocytes/100 WBC (Bld) 0.400 % 0.0-0.9 [facility] Comment on above: IG% - Immature Granu locytes (promyelocytes, myelocytes and metamyelocytes) > 1% indicates that a LEFT SHIFT is Present. MCH (RBC) [Entitic mass] 26.1 pg 27.0-32.0 [facility] Nucleated RBC/100 WBC (Bld) [Ratio] 0 % 0-5 [facility] MCHC Auto (RBC) [Mass/Vol]Or dered By: Phu Espinoza on 01-03-2023 MCHC (RBC) [Mass/Vol] 31.2 g/dL 32-36 [facility] No Panel InformationOrdered By: Phu Espinoza on 01-03-2023 Estimated GFR (MDRD) Amer 62 mL/min >60 [facility] Comment on above: GFR Calc Estimated GFR (MDRD) Non-Af Amer 51 mL/min >60 [facility] Comment on above: Non- GFR Calc Thyroid Stimulating Hormone (TSH) 6.16 uIU/mL 0.358-3.74 [facility] Platelets bldOrdered By: Phu Espinoza on 01-03-2023 Platelets (Bld) [#/Vol] 261 10*3/uL 150-450 [facility] Serum or plasma albumin thiago urement (mass/volume)Ordered By: Phu Espinoza on 01-03-2023 Albumin [Mass/Vol] 3.7 g/dL 3.2-5.0 [facility] Serum or plasma albumin/glob ulin mass ratioOrdered By: Phu Espinoza on 01-03-2023 Albumin/Globulin [Mass ratio] 1.0 {ratio} 0.9-2.4 [facility] Serum or plasma calcium thiago urement (mass/volume)Ordered By: Phu Espinoza on 01-03-2023 Calcium [Mass/Vol] 9.0 mg/dL 8.5-10.1 [facility] Serum or plasma creatinine m easurement (mass/volume)Ordered By: Phu Espinoza on 01-03-2023 Creatinine [Mass/Vol] 1.18 mg/dL 0.55-1.02 [facility] Comment on above: The validity of the calculated GFR & GFRAA in patients over 70 years has not been determined. Clinical correlation is essential. Serum or plasma urea nitroge n measurement (mass/volume)Ordered By: Phu Espinoza on 01-03-2023 Urea nitrogen [Mass/Vol] 21 mg/dL 7-18 [facility] Thin prep Papanicolaou smear with manual screeningOrdered By: Phu Espinoza on 01-03-2023 Thin prep Papanicolaou smear with manual screening 30 U/L 15-37 [facility] Thin prep Papanicolaou smear with manual screening 9 5-15 [facility] Laboratory - Hematology and Cell countson 11-17-2022 HbA1c (Bld) [Mass fraction] 7.1 % 4.2-6.3 [facility] Basophil percentageOrdered B y: Massiel Gibbons on 08-17-2022 Bilirubin [Mass/Vol] 0.70 mg/dL 0.20-1.00 [facility] Comment on above: For patients on eltr ombopag therapy, use of [place] TBIL is not recommended. Chloride [Moles/Vol] 105 mmol/L 98-107 [facility] Glucose [Mass/Vol] 167 mg/dL 74-106 [facility] Comment on above: Fasting Glucose resu lt greater than or equal to 126 mg/dL suggests DIABETES MELLITUS per A.D.A. criteria. Potassium [Moles/Vol] 4.3 mmol/L 3.5-5.1 [facility] Protein [Mass/Vol] 8.1 g/dL 6.4-8.2 [facility] Sodium [Moles/Vol] 138 mmol/L 136-145 [facility] Laboratory - Chemistry and C hemistry - challengeOrdered By: Massiel Gibbons on 08-17-2022 ALP [Catalytic activity/Vol] 54 U/L 45-117 [facility] ALT [Catalytic activity/Vol] 31 U/L 13-56 [facility] CO2 [Moles/Vol] 26.0 mmol/L 21.0-32.0 [facility] Globulin (S) [Mass/Vol] 4.2 g/dL 2.2-4.2 [facility] Urea nitrogen/Creatinine [Mass ratio] 25.2 mg/mg 10-20 [facility] No Panel InformationOrdered By: Massiel Gibbons on 08-17-2022 Estimated GFR (MDRD) Amer 72 mL/min >60 [facility] Comment on above: GFR Calc Estimated GFR (MDRD) Non-Af Amer 60 mL/min >60 [facility] Comment on above: Non- GFR Calc Thyroid Stimulating Hormone (TSH) 3.80 uIU/mL 0.358-3.74 [facility] Serum or plasma albumin thiago urement (mass/volume)Ordered By: Massiel Gibbons on 08-17-2022 Albumin [Mass/Vol] 3.9 g/dL 3.2-5.0 [facility] Serum or plasma albumin/glob ulin mass ratioOrdered By: Massiel Gibbons on 08-17-2022 Albumin/Globulin [Mass ratio] 0.9 {ratio} 0.9-2.4 [facility] Serum or plasma calcium thiago urement (mass/volume)Ordered By: Massiel Gibbons on 08-17-2022 Calcium [Mass/Vol] 10.0 mg/dL 8.5-10.1 [facility] Serum or plasma creatinine m easurement (mass/volume)Ordered By: Massiel Gibbons on 08-17-2022 Creatinine [Mass/Vol] 1.03 mg/dL 0.55-1.02 [facility] Comment on above: The validity of the calculated GFR & GFRAA in patients over 70 years has not been determined. Clinical correlation is essential. Serum or plasma urea nitroge n measurement (mass/volume)Ordered By: Massiel Gibbons on 08-17-2022 Urea nitrogen [Mass/Vol] 26 mg/dL 7-18 [facility] Thin prep Papanicolaou smear with manual screeningOrdered By: Massiel Gibbons on 08-17-2022 Thin prep Papanicolaou smear with manual screening 28 U/L 15-37 [facility] Thin prep Papanicolaou smear with manual screening 7 5-15 [facility] Absolute lymphocyte countOrd ered By: Dr. Espinoza on 04-04-2023 Lymphocytes Auto (Unsp spec) [#/Vol] 2.68 10*3/uL 0.83-4.51 [facility] Basophil percentageOrdered B y: Dr. Espinoza on 06-28-2022 Basophils/100 WBC (Bld) 0.7 % 0-1 [facility] Bilirubin [Mass/Vol] 0.30 mg/dL 0.20-1.00 [facility] Comment on above: For patients on eltr ombopag therapy, use of [place] TBIL is not recommended. Chloride [Moles/Vol] 107 mmol/L 98-107 [facility] Eosinophils/100 WBC (Bld) 2.4 % 0-5 [facility] Glucose [Mass/Vol] 138 mg/dL 74-106 [facility] Comment on above: Fasting Glucose resu lt greater than or equal to 126 mg/dL suggests DIABETES MELLITUS per A.D.A. criteria. Neutrophils (Bld) [#/Vol] 3.8 10*3/uL 2.0-7.7 [facility] Neutrophils/100 WBC (Bld) 50.6 % 47-70 [facility] Potassium [Moles/Vol] 4.1 mmol/L 3.5-5.1 [facility] Protein [Mass/Vol] 8.0 g/dL 6.4-8.2 [facility] Sodium [Moles/Vol] 139 mmol/L 136-145 [facility] WBC (Bld) [#/Vol] 7.4 10*3/uL 4.4-11.0 [facility] Blood erythrocytes count (nu mber/volume)Ordered By: Dr. Espinoza on 06-28-2022 RBC (Bld) [#/Vol] 4.33 10*6/uL 4.2-5.4 [facility] Blood hemoglobin measurement (mass/volume)Ordered By: Dr. Espinoza on 06-28-2022 Hemoglobin (Bld) [Mass/Vol] 11.4 g/dL 12.0-15.0 [facility] Blood lymphocytes/100 leukoc ytesOrdered By: Dr. Espinoza on 06-28-2022 Lymphocytes/100 WBC (Bld) 36.1 % 19-41 [facility] Blood monocytes/100 leukocyt esOrdered By: Dr. Espinoza on 06-28-2022 Monocytes/100 WBC (Bld) 9.8 % 0-10 [facility] Blood platelet mean volumeOr dered By: Dr. Espinoza on 06-28-2022 Platelet mean volume (Bld) [Entitic vol] 10.1 fL 6.2-12.0 [facility] Determination of erythrocyte mean corpuscular volume (MCV)Ordered By: Dr. Espinoza on 06-28-2022 MCV (RBC) [Entitic vol] 83.6 fL 81-99 [facility] Hematocrit Auto (Bld) [Volum e fraction]Ordered By: Dr. Espinoza on 06-28-2022 Hematocrit (Bld) [Volume fraction] 36.2 % 37-47 [facility] Laboratory - Chemistry and C hemistry - challengeOrdered By: Dr. Espinoza on 06-28-2022 ALP [Catalytic activity/Vol] 52 U/L 45-117 [facility] ALT [Catalytic activity/Vol] 29 U/L 13-56 [facility] CO2 [Moles/Vol] 28.0 mmol/L 21.0-32.0 [facility] Globulin (S) [Mass/Vol] 4.2 g/dL 2.2-4.2 [facility] Urea nitrogen/Creatinine [Mass ratio] 21.7 mg/mg 10-20 [facility] Laboratory - Hematology and Cell countsOrdered By: Dr. Espinoza on 06-28-2022 Erythrocyte distribution width (RBC) [Entitic vol] 43.9 fL 35.1-43.9 [facility] Erythrocyte distribution width (RBC) [Ratio] 14.4 % 11.6-14.6 [facility] Immature granulocytes/100 WBC (Bld) 0.400 % 0.0-0.9 [facility] Comment on above: IG% - Immature Granu locytes (promyelocytes, myelocytes and metamyelocytes) > 1% indicates that a LEFT SHIFT is Present. MCH (RBC) [Entitic mass] 26.3 pg 27.0-32.0 [facility] Nucleated RBC/100 WBC (Bld) [Ratio] 0 % 0-5 [facility] MCHC Auto (RBC) [Mass/Vol]Or dered By: Dr. Espinoza on 06-28-2022 MCHC (RBC) [Mass/Vol] 31.5 g/dL 32-36 [facility] No Panel InformationOrdered By: Dr. Espinoza on 06-28-2022 Estimated GFR (MDRD) Amer 56 mL/min >60 [facility] Comment on above: GFR Calc Estimated GFR (MDRD) Non-Af Amer 46 mL/min >60 [facility] Comment on above: Non- GFR Calc Thyroid Stimulating Hormone (TSH) 4.74 uIU/mL 0.358-3.74 [facility] Platelets bldOrdered By: Dr. Espinoza on 06-28-2022 Platelets (Bld) [#/Vol] 292 10*3/uL 150-450 [facility] Serum or plasma albumin thiago urement (mass/volume)Ordered By: Dr. Espinoza on 06-28-2022 Albumin [Mass/Vol] 3.8 g/dL 3.2-5.0 [facility] Serum or plasma albumin/glob ulin mass ratioOrdered By: Dr. Espinoza on 06-28-2022 Albumin/Globulin [Mass ratio] 0.9 {ratio} 0.9-2.4 [facility] Serum or plasma calcium thiago urement (mass/volume)Ordered By: Dr. Espinoza on 06-28-2022 Calcium [Mass/Vol] 9.2 mg/dL 8.5-10.1 [facility] Serum or plasma creatinine m easurement (mass/volume)Ordered By: Dr. Espinoza on 06-28-2022 Creatinine [Mass/Vol] 1.29 mg/dL 0.55-1.02 [facility] Comment on above: The validity of the calculated GFR & GFRAA in patients over 70 years has not been determined. Clinical correlation is essential. Serum or plasma urea nitroge n measurement (mass/volume)Ordered By: Dr. Espinoza on 06-28-2022 Urea nitrogen [Mass/Vol] 28 mg/dL 7-18 [facility] Thin prep Papanicolaou smear with manual screeningOrdered By: Dr. Espinoza on 06-28-2022 Thin prep Papanicolaou smear with manual screening 20 U/L 15-37 [facility] Thin prep Papanicolaou smear with manual screening 4 5- [facility] Laboratory - Hematology and Cell countson 05-11-2022 HbA1c (Bld) [Mass fraction] 7.6 % [facility] Basophil percentageon 2021 Bilirubin [Mass/Vol] 0.20 mg/dL 0.20-1.00 [facility] Work Phone: Comment on above: For patients on eltr ombopag therapy, use of [place] TBIL is not recommended. Chloride [Moles/Vol] 107 mmol/L 98-107 [facility] Work Phone: Glucose [Mass/Vol] 137 mg/dL 74-106 [facility] Work Phone: Comment on above: Fasting Glucose resu lt greater than or equal to 126 mg/dL suggests DIABETES MELLITUS per A.D.A. criteria. Potassium [Moles/Vol] 3.5 mmol/L 3.5-5.1 [facility] Work Phone: Protein [Mass/Vol] 7.2 g/dL 6.4-8.2 [facility] Work Phone: Sodium [Moles/Vol] 142 mmol/L 136-145 [facility] Work Phone: Laboratory - Chemistry and C hemistry - challengeon 02-08-2022 ALP [Catalytic activity/Vol] 65 U/L 45-117 [facility] Work Phone: ALT [Catalytic activity/Vol] 45 U/L 13-56 [facility] Work Phone: CO2 [Moles/Vol] 26.0 mmol/L 21.0-32.0 [facility] Work Phone: Globulin (S) [Mass/Vol] 3.8 g/dL 2.2-4.2 [facility] Work Phone: Urea nitrogen/Creatinine [Mass ratio] 13.8 mg/mg 10-20 [facility] Work Phone: No Panel Informationon 02-08 Estimated GFR (MDRD) Amer 88 mL/min >60 [facility] Work Phone: Comment on above: GFR Calc Estimated GFR (MDRD) Non-Af Amer 73 mL/min >60 [facility] Work Phone: Comment on above: Non- GFR Calc Hepatitis A IgM Antibody Negative Negative [facility] Work Phone: Hepatitis B Core IgM Antibody Negative Negative [facility] Work Phone: Hepatitis C Antibody (EIA) 0.1 s/co ratio 0.0-0.9 [facility] Work Phone: Hepatitis C Antibody Comment Comment . [facility] Work Phone: Comment on above: NegativeNot infected with HCV, unless recent infection issuspected or other evidence exists to indicate HCVinfection.Performed at: [facility] [employer] [facility] [id number] Director: Spencer Carbajal PhD, Phone: [phone] Serum or plasma albumin thiago urement (mass/volume)on 02-08-2022 Albumin [Mass/Vol] 3.4 g/dL 3.2-5.0 [facility] Work Phone: Serum or plasma albumin/glob ulin mass ratioon 02-08-2022 Albumin/Globulin [Mass ratio] 0.9 {ratio} 0.9-2.4 [facility] Work Phone: Serum or plasma calcium thiago urement (mass/volume)on 02-08-2022 Calcium [Mass/Vol] 8.0 mg/dL 8.5-10.1 [facility] Work Phone: Serum or plasma creatinine m easurement (mass/volume)on 02-08-2022 Creatinine [Mass/Vol] 0.87 mg/dL 0.55-1.02 [facility] Work Phone: Comment on above: The validity of the calculated GFR & GFRAA in patients over 70 years has not been determined. Clinical correlation is essential. Serum or plasma hepatitis B virus surface antigen detection by immunoassayon 02-08-2022 HBV surface Ag IA Ql Negative Negative [facility] Work Phone: Serum or plasma urea nitroge n measurement (mass/volume)on 02-08-2022 Urea nitrogen [Mass/Vol] 12 mg/dL 7-18 [facility] Work Phone: Thin prep Papanicolaou smear with manual screeningon 02-08-2022 Thin prep Papanicolaou smear with manual screening 25 U/L 15-37 [facility] Work Phone: Thin prep Papanicolaou smear with manual screening 9 5-15 [facility] Work Phone: Absolute lymphocyte counton 02-05-2022 Lymphocytes Auto (Unsp spec) [#/Vol] 2.34 10*3/uL 0.83-4.51 [facility] Work Phone: Basophil percentageon 2021 Basophils/100 WBC (Bld) 0.2 % 0-1 [facility] Work Phone: Bilirubin [Mass/Vol] 0.30 mg/dL 0.20-1.00 [facility] Work Phone: Comment on above: For patients on eltr ombopag therapy, use of [place] TBIL is not recommended. Chloride [Moles/Vol] 110 mmol/L 98-107 [facility] Work Phone: Eosinophils/100 WBC (Bld) 4.4 % 0-5 [facility] Work Phone: Glucose [Mass/Vol] 123 mg/dL 74-106 [facility] Work Phone: Comment on above: Fasting Glucose resu lt from 100 to 125 mg/dL suggests IMPAIRED HOMEOSTASIS per A.D.A. criteria. Neutrophils (Bld) [#/Vol] 1.7 10*3/uL 2.0-7.7 [facility] Work Phone: Neutrophils/100 WBC (Bld) 33.8 % 47-70 [facility] Work Phone: Potassium [Moles/Vol] 3.4 mmol/L 3.5-5.1 [facility]: Protein [Mass/Vol] 5.9 g/dL 6.4-8.2 [facility] Work Phone: Sodium [Moles/Vol] 143 mmol/L 136-145 [facility] Work Phone: WBC (Bld) [#/Vol] 5.0 10*3/uL 4.4-11.0 [facility] Work Phone: Blood erythrocytes count (nu mber/volume)on 02-05-2022 RBC (Bld) [#/Vol] 3.91 10*6/uL 4.2-5.4 [facility] Work Phone: [phone] Blood hemoglobin measurement (mass/volume)on 02-05-2022 Hemoglobin (Bld) [Mass/Vol] 10.0 g/dL 12.0-15.0 [facility] Work Phone: Blood lymphocytes/100 leukoc yteson 02-05-2022 Lymphocytes/100 WBC (Bld) 47.3 % 19-41 [facility] Work Phone: Blood monocytes/100 leukocyt eson 02-05-2022 Monocytes/100 WBC (Bld) 13.9 % 0-10 [facility] Work Phone: Blood platelet mean volumeon 02-05-2022 Platelet mean volume (Bld) [Entitic vol] 10.1 fL 6.2-12.0 [facility] Work Phone: Determination of erythrocyte mean corpuscular volume (MCV)on 02-05-2022 MCV (RBC) [Entitic vol] 82.6 fL 81-99 [facility] Work Phone: Direct bilirubinon 2 Bilirubin.direct [Mass/Vol] 0.15 mg/dL 0.00-0.30 [facility] Work Phone: Glucose Glucometer (BldC) [M ass/Vol]on 02-05-2022 Glucose [Mass/Vol] 133 mg/dL 74-106 [facility] Work Phone: Comment on above: MANAGEMENT OF PATIEN T CARE PER NURSING PROTOCOL Hematocrit Auto (Bld) [Volum e fraction]on 02-05-2022 Hematocrit (Bld) [Volume fraction] 32.3 % 37-47 [facility] Work Phone: Laboratory - Chemistry and C hemistry - challengeon 02-05-2022 ALP [Catalytic activity/Vol] 50 U/L 45-117 [facility] Work Phone: ALT [Catalytic activity/Vol] 72 U/L 13-56 [facility] Work Phone: CO2 [Moles/Vol] 30.0 mmol/L 21.0-32.0 [facility] Work Phone: Globulin (S) [Mass/Vol] 3.2 g/dL 2.2-4.2 [facility] Work Phone: Urea nitrogen/Creatinine [Mass ratio] 12.4 mg/mg 10-20 [facility] Work Phone: Laboratory - Hematology and Cell countson 02-05-2022 Erythrocyte distribution width (RBC) [Entitic vol] 41.7 fL 35.1-43.9 [facility] Work Phone: Erythrocyte distribution width (RBC) [Ratio] 14.0 % 11.6-14.6 [facility] Work Phone: Immature granulocytes/100 WBC (Bld) 0.400 % 0.0-0.9 [facility] Work Phone: Comment on above: IG% - Immature Granu locytes (promyelocytes, myelocytes and metamyelocytes) > 1% indicates that a LEFT SHIFT is Present. MCH (RBC) [Entitic mass] 25.6 pg 27.0-32.0 [facility] Work Phone: Nucleated RBC/100 WBC (Bld) [Ratio] 0 % 0-5 [facility] Work Phone: MCHC Auto (RBC) [Mass/Vol]on 02-05-2022 MCHC (RBC) [Mass/Vol] 31.0 g/dL 32-36 [facility] Work Phone: Comment on above: Delta: 33.0 on 02/04 No Panel Informationon 02-05 Estimated Creatinine Clearance Calc 72.72 ml/min [facility] Work Phone: Estimated GFR (MDRD) Amer 86 mL/min >60 [facility] Work Phone: Comment on above: GFR Calc Estimated GFR (MDRD) Non-Af Amer 71 mL/min >60 [facility] Work Phone: Comment on above: Non- GFR Calc Platelets bldon 02-05-2022 Platelets (Bld) [#/Vol] 190 10*3/uL 150-450 [facility] Work Phone: Serum or plasma albumin thiago urement (mass/volume)on 02-05-2022 Albumin [Mass/Vol] 2.7 g/dL 3.2-5.0 [facility] Work Phone: Serum or plasma calcium thiago urement (mass/volume)on 02-05-2022 Calcium [Mass/Vol] 7.8 mg/dL 8.5-10.1 [facility] Work Phone: Serum or plasma creatinine m easurement (mass/volume)on 02-05-2022 Creatinine [Mass/Vol] 0.89 mg/dL 0.55-1.02 [facility] Work Phone: Comment on above: The validity of the calculated GFR & GFRAA in patients over 70 years has not been determined. Clinical correlation is essential. Serum or plasma urea nitroge n measurement (mass/volume)on 02-05-2022 Urea nitrogen [Mass/Vol] 11 mg/dL 7-18 [facility] Work Phone: Thin prep Papanicolaou smear with manual screeningon 02-05-2022 Thin prep Papanicolaou smear with manual screening 53 U/L 15-37 [facility] Work Phone: Thin prep Papanicolaou smear with manual screening 3 5-15 [facility] Work Phone: Iron measurement (mass/mass) on 02-04-2022 Iron (Unsp spec) [Mass/Mass] 29 ug/dL 50-170 [facility] Work Phone: No Panel Informationon 02-04 Total Iron Binding Capacity 373 ug/dL 250-450 [facility] Work Phone: Serum or plasma albumin/glob ulin mass ratioon 02-04-2022 Albumin/Globulin [Mass ratio] 0.9 {ratio} 0.9-2.4 [facility] Work Phone: Serum or plasma ferritin lizette surement (mass/volume)on 02-04-2022 Ferritin [Mass/Vol] 36 ng/mL 8-252 [facility] Work Phone: Serum or plasma iron saturat ion measurement (mass fraction)on 02-04-2022 Iron saturation [Mass fraction] 7.8 % 15.0-55.0 [facility] Work Phone: Absolute lymphocyte counton 02-03-2022 Lymphocytes Auto (Unsp spec) [#/Vol] 0.92 10*3/uL 0.83-4.51 [facility] Work Phone: Basophil percentageon 2021 Basophil percentage 0-5 SEEN /hpf 0-5 [facility] Work Phone: Basophils/100 WBC (Bld) 0.1 % 0-1 [facility] Work Phone: [phone] Bilirubin [Mass/Vol] 0.50 mg/dL 0.20-1.00 [facility] Work Phone: Comment on above: For patients on eltr ombopag therapy, use of [place] TBIL is not recommended. Chloride [Moles/Vol] 106 mmol/L 98-107 [facility] Work Phone: Eosinophils/100 WBC (Bld) 2.0 % 0-5 [facility] Work Phone: [phone] Glucose [Mass/Vol] 141 mg/dL 74-106 [facility] Work Phone: Comment on above: Fasting Glucose resu lt greater than or equal to 126 mg/dL suggests DIABETES MELLITUS per A.D.A. criteria. Lactate [Moles/Vol] 1.3 mmol/L 0.4-2.0 [facility] Work Phone: [phone] Neutrophils (Bld) [#/Vol] 7.0 10*3/uL 2.0-7.7 [facility] Work Phone: [phone] Neutrophils/100 WBC (Bld) 81.0 % 47-70 [facility] Work Phone: [phone] Potassium [Moles/Vol] 4.1 mmol/L 3.5-5.1 [facility] Work Phone: [phone] Protein [Mass/Vol] 7.2 g/dL 6.4-8.2 [facility] Work Phone: [phone] Sodium [Moles/Vol] 140 mmol/L 136-145 [facility] Work Phone: [phone] WBC (Bld) [#/Vol] 8.6 10*3/uL 4.4-11.0 [facility] Work Phone: [phone] Beta hCG serum qualon 2021 Beta HCG ( test) Ql Negative [facility] Work Phone: [phone] Bilirubin Test strip Ql (U)o n 02-03-2022 Bilirubin Ql (U) Negative Negative [facility] Work [phone] Blood erythrocytes count (nu mber/volume)on 02-03-2022 RBC (Bld) [#/Vol] 4.48 10*6/uL 4.2-5.4 [facility] Work Phone: Blood hemoglobin measurement (mass/volume)on 02-03-2022 Hemoglobin (Bld) [Mass/Vol] 11.5 g/dL 12.0-15.0 [facility] Work Phone: Blood lymphocytes/100 leukoc yteson 02-03-2022 Lymphocytes/100 WBC (Bld) 10.7 % 19-41 [facility] Work Phone: Blood monocytes/100 leukocyt eson 02-03-2022 Monocytes/100 WBC (Bld) 5.9 % 0-10 [facility] Work Phone: Blood platelet mean volumeon 02-03-2022 Platelet mean volume (Bld) [Entitic vol] 10.0 fL 6.2-12.0 [facility] Work Phone: Determination of erythrocyte mean corpuscular volume (MCV)on 02-03-2022 MCV (RBC) [Entitic vol] 80.4 fL 81-99 [facility] Work Phone: Hematocrit Auto (Bld) [Volum e fraction]on 02-03-2022 Hematocrit (Bld) [Volume fraction] 36.0 % 37-47 [facility] Work Phone: INR in Blood by Coagulation assayon 02-03-2022 INR Coag (Bld) [Relative time] 1.1 {INR} [facility] Work Phone: Ketones Test strip Ql (U)on 02-03-2022 Ketones Ql (U) 5 mg/dl Negative [facility] Work Phone: Laboratory - Chemistry and C hemistry - challengeon 02-03-2022 ALP [Catalytic activity/Vol] 50 U/L 45-117 [facility] Work Phone: ALT [Catalytic activity/Vol] 25 U/L 13-56 [facility] Work Phone: CO2 [Moles/Vol] 24.0 mmol/L 21.0-32.0 [facility] Work Phone: [phone] Globulin (S) [Mass/Vol] 3.7 g/dL 2.2-4.2 [facility] Work Phone: [phone] Lipase [Catalytic activity/Vol] 382 U/L 73-393 [facility] Work Phone: [phone] Urea nitrogen/Creatinine [Mass ratio] 19.4 mg/mg 10-20 [facility] Work Phone: [phone] Laboratory - Coagulationon 1 04-05-2021 aPTT Coag (Bld) [Time] 28.7 s 24.1-36.2 [facility] Work Phone: PT Coag (PPP) [Time] 13.5 s 11.7-14.9 [facility] Work [facility]: [phone] Laboratory - Hematology and Cell countson 02-03-2022 Erythrocyte distribution width (RBC) [Entitic vol] 38.9 fL 35.1-43.9 [facility] Work Phone: [phone] Erythrocyte distribution width (RBC) [Ratio] 13.4 % 11.6-14.6 [facility] Work Phone: [phone] Immature granulocytes/100 WBC (Bld) 0.300 % 0.0-0.9 [facility] Work Phone: Comment on above: IG% - Immature Granu locytes (promyelocytes, myelocytes and metamyelocytes) > 1% indicates that a LEFT SHIFT is Present. MCH (RBC) [Entitic mass] 25.7 pg 27.0-32.0 [facility] Work Phone: [phone] Nucleated RBC/100 WBC (Bld) [Ratio] 0 % 0-5 [facility] Work Phone: MCHC Auto (RBC) [Mass/Vol]on 02-03-2022 MCHC (RBC) [Mass/Vol] 31.9 g/dL 32-36 [facility] Work Phone: Mucus LM Ql (Urine sed)on Mucus Ql (Urine sed) 0 SEEN /hpf [facility] Work Phone: Nitrite Test strip Ql (U)on 02-03-2022 Nitrite Ql (U) Negative Negative [facility] Work Phone: No Panel Informationon 02-03 Estimated Creatinine Clearance Calc 73.55 ml/min [facility] Work Phone: Estimated GFR (MDRD) Amer 87 mL/min >60 [facility] Work Phone: Comment on above: GFR Calc Estimated GFR (MDRD) Non-Af Amer 72 mL/min >60 [facility] Work Phone: Comment on above: Non- GFR Calc Platelets bldon 02-03-2022 Platelets (Bld) [#/Vol] 222 10*3/uL 150-450 [facility] Work Phone: Protein Test strip Ql (U)on 02-03-2022 Protein Ql (U) 30 mg/dl Negative [facility] Work Phone: Serum heterophile antibody d etectionon 02-03-2022 Heterophile Ab Ql (S) Negative Negative [facility] Work Phone: Serum or plasma albumin thiago urement (mass/volume)on 02-03-2022 Albumin [Mass/Vol] 3.5 g/dL 3.2-5.0 [facility] Work Phone: Serum or plasma albumin/glob ulin mass ratioon 02-03-2022 Albumin/Globulin [Mass ratio] 0.9 {ratio} 0.9-2.4 [facility] Work Phone: Serum or plasma calcium thiago urement (mass/volume)on 02-03-2022 Calcium [Mass/Vol] 8.8 mg/dL 8.5-10.1 [facility] Work Phone: Serum or plasma creatinine m easurement (mass/volume)on 02-03-2022 Creatinine [Mass/Vol] 0.88 mg/dL 0.55-1.02 [facility] Work Phone: Comment on above: The validity of the calculated GFR & GFRAA in patients over 70 years has not been determined. Clinical correlation is essential. Serum or plasma urea nitroge n measurement (mass/volume)on 02-03-2022 Urea nitrogen [Mass/Vol] 17 mg/dL 7-18 [facility] Work Phone: Serum procalcitonin measurem enton 02-03-2022 Procalcitonin [Mass/Vol] 0.08 ng/mL 0.00-0.09 [facility] Work Phone: Comment on [...] Ql (Urine sed) 0-5 SEEN /hpf 5-10 [facility] Work Phone: Thin prep Papanicolaou smear with manual screeningon 02-03-2022 Thin prep Papanicolaou smear with manual screening 23 U/L 15-37 [facility] Work Phone: Thin prep Papanicolaou smear with manual screening 10 5-15 [facility] Work Phone: Urine blood detectionon 01-25 RBC Ql (U) Negative Negative [facility] Work Phone: RBC Ql (U) 0 SEEN /hpf 0-5 [facility] Work Phone: Urine clarityon 02-03-2022 Clarity (U) Sl. Cloudy Clear [facility] Work Phone: Urine color determinationon 02-03-2022 Color (U) Yellow Yellow [facility] Work Phone: Urine glucose detectionon Glucose Ql (U) Normal mg/dl Normal [facility] Work Phone: Urine leukocyte esterase det ection by dipstickon 02-03-2022 Leukocyte esterase Test strip Ql (U) 25 /ul Negative [facility] Work Phone: Urine pHon 02-03-2022 pH (U) 8.0 [pH] 5.0 - 8.0 [facility] Work Phone: Urine sediment bacteria coun t by microscopy (number/high power field)on 02-03-2022 Bacteria LM.HPF (Urine sed) [#/Area] RARE /hpf None Seen [facility] Work Phone: Urine specific gravity measu rementon 02-03-2022 Specific gravity (U) [Rel density] 1.010 1.002-1.030 [facility] Work Phone: Urobilinogen Auto test strip Ql (U)on 02-03-2022 Urobilinogen Ql (U) Normal mg/dl Normal [facility] Work Phone: Absolute lymphocyte counton 12-21-2021 Lymphocytes Auto (Unsp spec) [#/Vol] 2.78 10*3/uL 0.83-4.51 [facility] Work Phone: Basophil percentageon 2021 Basophils/100 WBC (Bld) 0.5 % 0-1 [facility] Work Phone: Bilirubin [Mass/Vol] 0.40 mg/dL 0.20-1.00 [facility] Work Phone: [phone] Comment on above: For patients on eltr ombopag therapy, use of [place] TBIL is not recommended. Chloride [Moles/Vol] 106 mmol/L 98-107 [facility] Work Phone: [phone] Eosinophils/100 WBC (Bld) 2.2 % 0-5 [facility] Work Phone: [phone] Glucose [Mass/Vol] 145 mg/dL 74-106 [facility] Work Phone: Comment on above: Fasting Glucose resu lt greater than or equal to 126 mg/dL suggests DIABETES MELLITUS per A.D.A. criteria. Neutrophils (Bld) [#/Vol] 4.7 10*3/uL 2.0-7.7 [facility] Work Phone: [phone] Neutrophils/100 WBC (Bld) 56.6 % 47-70 [facility] Work Phone: [phone] Potassium [Moles/Vol] 4.2 mmol/L 3.5-5.1 [facility] Work Phone: [phone] Protein [Mass/Vol] 7.9 g/dL 6.4-8.2 [facility] Work Phone: [phone] Sodium [Moles/Vol] 141 mmol/L 136-145 [facility] Work Phone: [phone] WBC (Bld) [#/Vol] 8.2 10*3/uL 4.4-11.0 [facility] Work Phone: [phone] Blood erythrocytes count (nu mber/volume)on 12-21-2021 RBC (Bld) [#/Vol] 4.41 10*6/uL 4.2-5.4 [facility] Work Phone: [phone] Blood hemoglobin measurement (mass/volume)on 12-21-2021 Hemoglobin (Bld) [Mass/Vol] 11.8 g/dL 12.0-15.0 [facility] Work Phone: Blood lymphocytes/100 leukoc yteson 12-21-2021 Lymphocytes/100 WBC (Bld) 33.7 % 19-41 [facility] Work Phone: Blood monocytes/100 leukocyt eson 12-21-2021 Monocytes/100 WBC (Bld) 6.8 % 0-10 [facility] Work Phone: Blood platelet mean volumeon 12-21-2021 Platelet mean volume (Bld) [Entitic vol] 10.6 fL 6.2-12.0 [facility] Work Phone: Determination of erythrocyte mean corpuscular volume (MCV)on 12-21-2021 MCV (RBC) [Entitic vol] 80.7 fL 81-99 [facility] Work Phone: Hematocrit Auto (Bld) [Volum e fraction]on 12-21-2021 Hematocrit (Bld) [Volume fraction] 35.6 % 37-47 [facility] Work Phone: Laboratory - Chemistry and C hemistry - challengeon 12-21-2021 ALP [Catalytic activity/Vol] 49 U/L 45-117 [facility] Work Phone: ALT [Catalytic activity/Vol] 25 U/L 13-56 [facility] Work Phone: CO2 [Moles/Vol] 27.0 mmol/L 21.0-32.0 [facility] Work Phone: Globulin (S) [Mass/Vol] 4.1 g/dL 2.2-4.2 [facility] Work Phone: Urea nitrogen/Creatinine [Mass ratio] 21.9 mg/mg 10-20 [facility] Work Phone: Laboratory - Hematology and Cell countson 12-21-2021 Erythrocyte distribution width (RBC) [Entitic vol] 38.6 fL 35.1-43.9 [facility] Work Phone: Erythrocyte distribution width (RBC) [Ratio] 13.3 % 11.6-14.6 [facility] Work Phone: Immature granulocytes/100 WBC (Bld) 0.200 % 0.0-0.9 [facility] Work Phone: Comment on above: IG% - Immature Granu locytes (promyelocytes, myelocytes and metamyelocytes) > 1% indicates that a LEFT SHIFT is Present. MCH (RBC) [Entitic mass] 26.8 pg 27.0-32.0 [facility] Work Phone: Nucleated RBC/100 WBC (Bld) [Ratio] 0 % 0-5 [facility] Work Phone: MCHC Auto (RBC) [Mass/Vol]on 12-21-2021 MCHC (RBC) [Mass/Vol] 33.1 g/dL 32-36 [facility] Work Phone: No Panel Informationon 12-21 Estimated GFR (MDRD) Amer 79 mL/min >60 [facility] Work Phone: Comment on above: GFR Calc Estimated GFR (MDRD) Non-Af Amer 65 mL/min >60 [facility] Work Phone: Comment on above: Non- GFR Calc Thyroid Stimulating Hormone (TSH) 2.66 uIU/mL 0.358-3.74 [facility] Work Phone: Platelets bldon 12-21-2021 Platelets (Bld) [#/Vol] 285 10*3/uL 150-450 [facility] Work Phone: Serum or plasma albumin thiago urement (mass/volume)on 12-21-2021 Albumin [Mass/Vol] 3.8 g/dL 3.2-5.0 [facility] Work Phone: Serum or plasma albumin/glob ulin mass ratioon 12-21-2021 Albumin/Globulin [Mass ratio] 0.9 {ratio} 0.9-2.4 [facility] Work Phone: Serum or plasma calcium thiago urement (mass/volume)on 12-21-2021 Calcium [Mass/Vol] 9.2 mg/dL 8.5-10.1 [facility] Work Phone: Serum or plasma creatinine m easurement (mass/volume)on 12-21-2021 Creatinine [Mass/Vol] 0.96 mg/dL 0.55-1.02 [facility] Work Phone: Comment on above: The validity of the calculated GFR & GFRAA in patients over 70 years has not been determined. Clinical correlation is essential. Serum or plasma urea nitroge n measurement (mass/volume)on 12-21-2021 Urea nitrogen [Mass/Vol] 21 mg/dL 7-18 [facility] Work Phone: Thin prep Papanicolaou smear with manual screeningon 12-21-2021 Thin prep Papanicolaou smear with manual screening 20 U/L 15-37 [facility] Work Phone: Thin prep Papanicolaou smear with manual screening 8 5-15 [facility] Work Phone: Laboratory - Chemistry and C hemistry - challengeon 10-20-2021 Free T4 [Mass/Vol] 0.84 ng/dL 0.76-1.46 [facility] Work Phone: No Panel Informationon 10-20 Thyroid Stimulating Hormone (TSH) 2.21 uIU/mL 0.358-3.74 [facility] Work Phone: Whole blood hemoglobin A1c/t otal hemoglobin ratio (mass fraction)on 10-20-2021 HbA1c (Bld) [Mass fraction] 6.6 % 3.8-5.6 [facility] Work Phone: Comment on above: Normal < 5.7 % Predi abetic 5.7 - 6.4 % Diabetic >or= 6.5 % Please note range changes. Absolute lymphocyte counton 09-21-2021 Lymphocytes Auto (Unsp spec) [#/Vol] 2.61 10*3/uL 0.83-4.51 [facility] Work Phone: Basophil percentageon 2021 Basophils/100 WBC (Bld) 0.5 % 0-1 [facility] Work Phone: Bilirubin [Mass/Vol] 0.60 mg/dL 0.20-1.00 [facility] Work Phone: Comment on above: For patients on eltr ombopag therapy, use of [place] TBIL is not recommended. Chloride [Moles/Vol] 105 mmol/L 98-107 [facility] Work Phone: Eosinophils/100 WBC (Bld) 2.1 % 0-5 [facility] Work Phone: Glucose [Mass/Vol] 143 mg/dL 74-106 [facility] Work Phone: Comment on above: Fasting Glucose resu lt greater than or equal to 126 mg/dL suggests DIABETES MELLITUS per A.D.A. criteria. Neutrophils (Bld) [#/Vol] 4.1 10*3/uL 2.0-7.7 [facility] Work Phone: Neutrophils/100 WBC (Bld) 54.2 % 47-70 [facility] Work Phone: Potassium [Moles/Vol] 4.1 mmol/L 3.5-5.1 [facility] Work Phone: Protein [Mass/Vol] 7.5 g/dL 6.4-8.2 [facility] Work Phone: Sodium [Moles/Vol] 139 mmol/L 136-145 [facility] Work Phone: WBC (Bld) [#/Vol] 7.7 10*3/uL 4.4-11.0 [facility] Work Phone: Blood erythrocytes count (nu mber/volume)on 09-21-2021 RBC (Bld) [#/Vol] 4.25 10*6/uL 4.2-5.4 [facility] Work Phone: Blood hemoglobin measurement (mass/volume)on 09-21-2021 Hemoglobin (Bld) [Mass/Vol] 11.5 g/dL 12.0-15.0 [facility] Work Phone: Blood lymphocytes/100 leukoc yteson 09-21-2021 Lymphocytes/100 WBC (Bld) 34.1 % 19-41 [facility] Work Phone: Blood monocytes/100 leukocyt eson 09-21-2021 Monocytes/100 WBC (Bld) 8.6 % 0-10 [facility] Work Phone: Blood platelet mean volumeon 09-21-2021 Platelet mean volume (Bld) [Entitic vol] 9.9 fL 6.2-12.0 [facility] Work Phone: Determination of erythrocyte mean corpuscular volume (MCV)on 09-21-2021 MCV (RBC) [Entitic vol] 81.6 fL 81-99 [facility] Work Phone: Hematocrit Auto (Bld) [Volum e fraction]on 09-21-2021 Hematocrit (Bld) [Volume fraction] 34.7 % 37-47 [facility] Work Phone: Laboratory - Chemistry and C hemistry - challengeon 09-21-2021 ALP [Catalytic activity/Vol] 45 U/L 45-117 [facility] Work Phone: ALT [Catalytic activity/Vol] 28 U/L 13-56 [facility] Work Phone: CO2 [Moles/Vol] 26.0 mmol/L 21.0-32.0 [facility] Work Phone: Globulin (S) [Mass/Vol] 3.8 g/dL 2.2-4.2 [facility] Work Phone: Urea nitrogen/Creatinine [Mass ratio] 12.8 mg/mg 10-20 [facility] Work Phone: Laboratory - Hematology and Cell countson 09-21-2021 Erythrocyte distribution width (RBC) [Entitic vol] 38.6 fL 35.1-43.9 [facility] Work Phone: Erythrocyte distribution width (RBC) [Ratio] 13.0 % 11.6-14.6 [facility] Work Phone: Immature granulocytes/100 WBC (Bld) 0.500 % 0.0-0.9 [facility] Work Phone: Comment on above: IG% - Immature Granu locytes (promyelocytes, myelocytes and metamyelocytes) > 1% indicates that a LEFT SHIFT is Present. MCH (RBC) [Entitic mass] 27.1 pg 27.0-32.0 [facility] Work Phone: Nucleated RBC/100 WBC (Bld) [Ratio] 0 % 0-5 [facility] Work Phone: MCHC Auto (RBC) [Mass/Vol]on 09-21-2021 MCHC (RBC) [Mass/Vol] 33.1 g/dL 32-36 [facility] Work Phone: No Panel Informationon 09-21 Estimated GFR (MDRD) Amer 68 mL/min >60 [facility] Work Phone: Comment on above: GFR Calc Estimated GFR (MDRD) Non-Af Amer 56 mL/min >60 [facility] Work Phone: Comment on above: Non- GFR Calc Thyroid Stimulating Hormone (TSH) 2.98 uIU/mL 0.358-3.74 [facility] Work Phone: Vitamin D 25-Hydroxy 36.2 ng/mL [facility] Work Phone: Comment on above: Vitamin D 25(OH) Sta tus Range Deficiency <20 ng/mL (50nmol/L) Insufficiency 20 - 30 ng/mL (50 - 75 nmol/L) Sufficiency 30 - 100 ng/mL (75 - 250 nmol/L) Toxicity >100 ng/mL (>250 nmol/L) Platelets bldon 06-28-2022 Platelets (Bld) [#/Vol] 274 10*3/uL 150-450 [facility] Work Phone: Serum or plasma albumin thiago urement (mass/volume)on 09-21-2021 Albumin [Mass/Vol] 3.7 g/dL 3.2-5.0 [facility] Work Phone: Serum or plasma albumin/glob ulin mass ratioon 09-21-2021 Albumin/Globulin [Mass ratio] 1.0 {ratio} 0.9-2.4 [facility] Work Phone: Serum or plasma calcium thigao urement (mass/volume)on 09-21-2021 Calcium [Mass/Vol] 8.7 mg/dL 8.5-10.1 [facility] Work Phone: Serum or plasma creatinine m easurement (mass/volume)on 09-21-2021 Creatinine [Mass/Vol] 1.09 mg/dL 0.55-1.02 [facility] Work Phone: Comment on above: The validity of the calculated GFR & GFRAA in patients over 70 years has not been determined. Clinical correlation is essential. Serum or plasma urea nitroge n measurement (mass/volume)on 09-21-2021 Urea nitrogen [Mass/Vol] 14 mg/dL 7-18 [facility] Work Phone: Thin prep Papanicolaou smear with manual screeningon 09-21-2021 Thin prep Papanicolaou smear with manual screening 27 U/L 15-37 [facility] Work Phone: Thin prep Papanicolaou smear with manual screening 8 5-15 [facility] Work Phone: Absolute lymphocyte counton 08-25-2021 Lymphocytes Auto (Unsp spec) [#/Vol] 2.35 10*3/uL 0.83-4.51 [facility] Work Phone: Basophil percentageon 2021 Basophils/100 WBC (Bld) 0.4 % 0-1 [facility] Work Phone: Bilirubin [Mass/Vol] 0.40 mg/dL 0.20-1.00 [facility] Work Phone: Comment on above: For patients on eltr ombopag therapy, use of [place] TBIL is not recommended. Chloride [Moles/Vol] 106 mmol/L 98-107 [facility] Work Phone: Eosinophils/100 WBC (Bld) 1.5 % 0-5 [facility] Work Phone: Glucose [Mass/Vol] 163 mg/dL 74-106 [facility] Work Phone: Comment on above: Fasting Glucose resu lt greater than or equal to 126 mg/dL suggests DIABETES MELLITUS per A.D.A. criteria. Neutrophils (Bld) [#/Vol] 5.7 10*3/uL 2.0-7.7 [facility] Work Phone: Neutrophils/100 WBC (Bld) 62.9 % 47-70 [facility] Work Phone: Potassium [Moles/Vol] 4.5 mmol/L 3.5-5.1 [facility] Work Phone: [phone] Protein [Mass/Vol] 8.2 g/dL 6.4-8.2 [facility] Work Phone: Sodium [Moles/Vol] 139 mmol/L 136-145 [facility] Work Phone: WBC (Bld) [#/Vol] 9.1 10*3/uL 4.4-11.0 [facility] Work Phone: Blood erythrocytes count (nu mber/volume)on 08-25-2021 RBC (Bld) [#/Vol] 4.49 10*6/uL 4.2-5.4 [facility] Work Phone: Blood hemoglobin measurement (mass/volume)on 08-25-2021 Hemoglobin (Bld) [Mass/Vol] 12.1 g/dL 12.0-15.0 [facility] Work Phone: Blood lymphocytes/100 leukoc yteson 08-25-2021 Lymphocytes/100 WBC (Bld) 25.8 % 19-41 [facility] Work Phone: Blood monocytes/100 leukocyt eson 08-25-2021 Monocytes/100 WBC (Bld) 8.9 % 0-10 [facility] Work Phone: Blood platelet mean volumeon 08-25-2021 Platelet mean volume (Bld) [Entitic vol] 10.4 fL 6.2-12.0 [facility] Work Phone: Culture, urineon 08-25-2021 Bacteria identified Cx Nom (U) Mixed Gram Pos & Gram Neg Org [facility] Work Phone: Determination of erythrocyte mean corpuscular volume (MCV)on 08-25-2021 MCV (RBC) [Entitic vol] 83.3 fL 81-99 [facility] Work Phone: Erythrocyte sedimentation ra david 08-25-2021 ESR (Bld) [Velocity] 39 mm/h 0-30 [facility] Work Phone: Hematocrit Auto (Bld) [Volum e fraction]on 08-25-2021 Hematocrit (Bld) [Volume fraction] 37.4 % 37-47 [facility] Work Phone: Laboratory - Chemistry and C hemistry - challengeon 08-25-2021 ALP [Catalytic activity/Vol] 44 U/L 45-117 [facility] Work Phone: ALT [Catalytic activity/Vol] 38 U/L 13-56 [facility] Work Phone: CO2 [Moles/Vol] 22.0 mmol/L 21.0-32.0 [facility] Work Phone: Globulin (S) [Mass/Vol] 4.3 g/dL 2.2-4.2 [facility] Work Phone: Urea nitrogen/Creatinine [Mass ratio] 26.5 mg/mg 10-20 [facility] Work Phone: Laboratory - Hematology and Cell countson 08-25-2021 Erythrocyte distribution width (RBC) [Entitic vol] 39.4 fL 35.1-43.9 [facility] Work Phone: Erythrocyte distribution width (RBC) [Ratio] 13.1 % 11.6-14.6 [facility] Work Phone: Immature granulocytes/100 WBC (Bld) 0.500 % 0.0-0.9 [facility] Work Phone: Comment on above: IG% - Immature Granu locytes (promyelocytes, myelocytes and metamyelocytes) > 1% indicates that a LEFT SHIFT is Present. MCH (RBC) [Entitic mass] 26.9 pg 27.0-32.0 [facility] Work Phone: Nucleated RBC/100 WBC (Bld) [Ratio] 0 % 0-5 [facility] Work Phone: MCHC Auto (RBC) [Mass/Vol]on 08-25-2021 MCHC (RBC) [Mass/Vol] 32.4 g/dL 32-36 [facility] Work Phone: No Panel Informationon 08-25 Estimated GFR (MDRD) Amer 77 mL/min >60 [facility] Work Phone: Comment on above: GFR Calc Estimated GFR (MDRD) Non-Af Amer 63 mL/min >60 [facility] Work Phone: Comment on above: Non- GFR Calc Thyroid Stimulating Hormone (TSH) 2.17 uIU/mL 0.358-3.74 [facility] Work Phone: Platelets bldon 08-25-2021 Platelets (Bld) [#/Vol] 293 10*3/uL 150-450 [facility] Work Phone: Serum or plasma C reactive p rotein measurement (mass/volume)on 08-25-2021 CRP [Mass/Vol] mg/L 0.0-3.0 [facility] Work Phone: Comment on above: C-Reactive Protein ( CRP) provides useful information for thediagnosis, therapy and monitoring of inflammatory processesand associated diseases. For the evaluation of Relative Riskfor Cardiovascular Disease, a High Sensitivity CRP (HSCRP)should be ordered. Serum or plasma albumin thiago urement (mass/volume)on 08-25-2021 Albumin [Mass/Vol] 3.9 g/dL 3.2-5.0 [facility] Work Phone: Serum or plasma albumin/glob ulin mass ratioon 08-25-2021 Albumin/Globulin [Mass ratio] 0.9 {ratio} 0.9-2.4 [facility] Work Phone: Serum or plasma calcium thiago urement (mass/volume)on 08-25-2021 Calcium [Mass/Vol] 9.4 mg/dL 8.5-10.1 [facility] Work Phone: Serum or plasma creatinine m easurement (mass/volume)on 08-25-2021 Creatinine [Mass/Vol] 0.98 mg/dL 0.55-1.02 [facility] Work Phone: Comment on above: The validity of the calculated GFR & GFRAA in patients over 70 years has not been determined. Clinical correlation is essential. Serum or plasma urea nitroge n measurement (mass/volume)on 08-25-2021 Urea nitrogen [Mass/Vol] 26 mg/dL 7-18 [facility] Work Phone: Thin prep Papanicolaou smear with manual screeningon 08-25-2021 Thin prep Papanicolaou smear with manual screening 31 U/L 15-37 [facility] Work Phone: Thin prep Papanicolaou smear with manual screening 11 5-15 [facility] Work Phone: No Panel Informationon 07-22 Homocysteine 7.4 umol/L 3.2-10.7 [facility] Work Phone: Serum or plasma methylmalona te measurement (moles/volume)on 07-22-2021 Methylmalonate [Moles/Vol] 819 nmol/L 0-378 [facility] Work Phone: Comment on above: Performed at: [address] [id number] Director: Pauline Yang MD, Phone: [phone] Absolute lymphocyte counton 07-20-2021 Lymphocytes Auto (Unsp spec) [#/Vol] 2.36 10*3/uL 0.83-4.51 [facility] Work Phone: Basophil percentageon 2021 Basophils/100 WBC (Bld) 0.4 % 0-1 [facility] Work Phone: [phone] Eosinophils/100 WBC (Bld) 2.3 % 0-5 [facility] Work Phone: Neutrophils (Bld) [#/Vol] 3.7 10*3/uL 2.0-7.7 [facility] Work Phone: Neutrophils/100 WBC (Bld) 54.5 % 47-70 [facility] Work Phone: [phone] WBC (Bld) [#/Vol] 6.9 10*3/uL 4.4-11.0 [facility] Work Phone: Blood erythrocytes count (nu mber/volume)on 07-20-2021 RBC (Bld) [#/Vol] 4.01 10*6/uL 4.2-5.4 [facility] Work Phone: Blood hemoglobin measurement (mass/volume)on 07-20-2021 Hemoglobin (Bld) [Mass/Vol] 10.9 g/dL 12.0-15.0 [facility] Work Phone: [phone] Blood lymphocytes/100 leukoc yteson 07-20-2021 Lymphocytes/100 WBC (Bld) 34.4 % 19-41 [facility] Work Phone: Blood monocytes/100 leukocyt eson 07-20-2021 Monocytes/100 WBC (Bld) 8.3 % 0-10 [facility] Work Phone: Blood platelet mean volumeon 07-20-2021 Platelet mean volume (Bld) [Entitic vol] 10.5 fL 6.2-12.0 [facility] Work Phone: Determination of erythrocyte mean corpuscular volume (MCV)on 07-20-2021 MCV (RBC) [Entitic vol] 83.5 fL 81-99 [facility] Work Phone: Hematocrit Auto (Bld) [Volum e fraction]on 07-20-2021 Hematocrit (Bld) [Volume fraction] 33.5 % 37-47 [facility] Work Phone: Hemoglobin in reticulocytes (mass per reticulocyte)on 07-20-2021 Hemoglobin (Reticulocytes) [Entitic mass] 31.0 pg 30-35 [facility] Work Phone: Iron measurement (mass/mass) on 07-20-2021 Iron (Unsp spec) [Mass/Mass] 44 ug/dL 50-170 [facility] Work Phone: Laboratory - Chemistry and C hemistry - challengeon 07-20-2021 Cobalamin (Vitamin B12) [Mass/Vol] 299 pg/mL 211-911 [facility] Work Phone: Laboratory - Hematology and Cell countson 07-20-2021 Erythrocyte distribution width (RBC) [Entitic vol] 43.0 fL 35.1-43.9 [facility] Work Phone: Erythrocyte distribution width (RBC) [Ratio] 14.1 % 11.6-14.6 [facility] Work Phone: Immature granulocytes/100 WBC (Bld) 0.100 % 0.0-0.9 [facility] Work Phone: Comment on above: IG% - Immature Granu locytes (promyelocytes, myelocytes and metamyelocytes) > 1% indicates that a LEFT SHIFT is Present. MCH (RBC) [Entitic mass] 27.2 pg 27.0-32.0 [facility] Work Phone: Nucleated RBC/100 WBC (Bld) [Ratio] 0 % 0-5 [facility] Work Phone: MCHC Auto (RBC) [Mass/Vol]on 07-20-2021 MCHC (RBC) [Mass/Vol] 32.5 g/dL 32-36 [facility] Work Phone: No Panel Informationon 07-20 Immature Reticulocyte Fraction 17.20 % 3.00-15.90 [facility] Work Phone: Reticulocyte Count 2.13 % 0.5-1.5 [facility] Work Phone: Total Iron Binding Capacity 443 ug/dL 250-450 [facility] Work Phone: Platelets bldon 07-20-2021 Platelets (Bld) [#/Vol] 234 10*3/uL 150-450 [facility] Work Phone: Serum or plasma ferritin lizette surement (mass/volume)on 07-20-2021 Ferritin [Mass/Vol] 30 ng/mL 8-252 [facility] Work Phone: Serum or plasma folate measu rement (mass/volume)on 07-20-2021 Folate [Mass/Vol] 11.00 ng/mL 3.1-55.4 [facility] Work Phone: Serum or plasma iron saturat ion measurement (mass fraction)on 07-20-2021 Iron saturation [Mass fraction] 9.9 % 15.0-55.0 [facility] Work Phone: Absolute lymphocyte counton 07-19-2021 Lymphocytes Auto (Unsp spec) [#/Vol] 2.89 10*3/uL 0.83-4.51 [facility] Work Phone: Basophil percentageon 2021 Basophils/100 WBC (Bld) 0.4 % 0-1 [facility] Work Phone: [phone] Chloride [Moles/Vol] 108 mmol/L 98-107 [facility] Work Phone: [phone] Eosinophils/100 WBC (Bld) 1.8 % 0-5 [facility] Work Phone: [phone] Glucose [Mass/Vol] 140 mg/dL 74-106 [facility] Work Phone: Comment on above: Fasting Glucose resu lt greater than or equal to 126 mg/dL suggests DIABETES MELLITUS per A.D.A. criteria. Neutrophils (Bld) [#/Vol] 4.7 10*3/uL 2.0-7.7 [facility] Work Phone: [phone] Neutrophils/100 WBC (Bld) 55.6 % 47-70 [facility] Work Phone: Potassium [Moles/Vol] 4.0 mmol/L 3.5-5.1 [facility] Work Phone: [phone] Sodium [Moles/Vol] 138 mmol/L 136-145 [facility] Work Phone: [phone] WBC (Bld) [#/Vol] 8.4 10*3/uL 4.4-11.0 [facility] Work Phone: Blood erythrocytes count (nu mber/volume)on 07-19-2021 RBC (Bld) [#/Vol] 4.11 10*6/uL 4.2-5.4 [facility] Work Phone: [phone] Blood hemoglobin measurement (mass/volume)on 07-19-2021 Hemoglobin (Bld) [Mass/Vol] 10.8 g/dL 12.0-15.0 [facility] Work Phone: [phone] Blood lymphocytes/100 leukoc yteson 07-19-2021 Lymphocytes/100 WBC (Bld) 34.5 % 19-41 [facility] Work Phone: [phone] Blood monocytes/100 leukocyt eson 07-19-2021 Monocytes/100 WBC (Bld) 7.5 % 0-10 [facility] Work Phone: Blood platelet mean volumeon 07-19-2021 Platelet mean volume (Bld) [Entitic vol] 10.4 fL 6.2-12.0 [facility] Work Phone: Culture, urineon 07-19-2021 Bacteria identified Cx Nom (U) Escherichia coli [facility] Work Phone: Determination of erythrocyte mean corpuscular volume (MCV)on 07-19-2021 MCV (RBC) [Entitic vol] 83.0 fL 81-99 [facility] Work Phone: Hematocrit Auto (Bld) [Volum e fraction]on 07-19-2021 Hematocrit (Bld) [Volume fraction] 34.1 % 37-47 [facility] Work Phone: Laboratory - Chemistry and C hemistry - challengeon 07-19-2021 CO2 [Moles/Vol] 26.0 mmol/L 21.0-32.0 [facility] Work Phone: Urea nitrogen/Creatinine [Mass ratio] 15.8 mg/mg 10-20 [facility] Work Phone: Laboratory - Hematology and Cell countson 07-19-2021 Erythrocyte distribution width (RBC) [Entitic vol] 42.5 fL 35.1-43.9 [facility] Work Phone: Erythrocyte distribution width (RBC) [Ratio] 14.1 % 11.6-14.6 [facility] Work Phone: Immature granulocytes/100 WBC (Bld) 0.200 % 0.0-0.9 [facility] Work Phone: Comment on above: IG% - Immature Granu locytes (promyelocytes, myelocytes and metamyelocytes) > 1% indicates that a LEFT SHIFT is Present. MCH (RBC) [Entitic mass] 26.3 pg 27.0-32.0 [facility] Work Phone: Nucleated RBC/100 WBC (Bld) [Ratio] 0 % 0-5 [facility] Work Phone: Laboratory - Microbiology an d Antimicrobial susceptibilityon 07-19-2021 Bacteria identified Cx Nom (Bld) No growth in 5 days. [facility] Work Phone: MCHC Auto (RBC) [Mass/Vol]on 07-19-2021 MCHC (RBC) [Mass/Vol] 31.7 g/dL 32-36 [facility] Work Phone: No Panel Informationon 07-19 Estimated GFR (MDRD) Amer 65 mL/min >60 [facility] Work Phone: Comment on above: GFR Calc Estimated GFR (MDRD) Non-Af Amer 53 mL/min >60 [facility] Work Phone: Comment on above: Non- GFR Calc Platelets bldon 07-19-2021 Platelets (Bld) [#/Vol] 257 10*3/uL 150-450 [facility] Work Phone: Serum or plasma calcium thiago urement (mass/volume)on 07-19-2021 Calcium [Mass/Vol] 9.6 mg/dL 8.5-10.1 [facility] Work Phone: Serum or plasma creatinine m easurement (mass/volume)on 07-19-2021 Creatinine [Mass/Vol] 1.14 mg/dL 0.55-1.02 [facility] Work Phone: Comment on above: The validity of the calculated GFR & GFRAA in patients over 70 years has not been determined. Clinical correlation is essential. Serum or plasma urea nitroge n measurement (mass/volume)on 07-19-2021 Urea nitrogen [Mass/Vol] 18 mg/dL 7-18 [facility] Work Phone: Thin prep Papanicolaou smear with manual screeningon 07-19-2021 Thin prep Papanicolaou smear with manual screening 4 5-15 [facility] Work Phone: [phone] Absolute lymphocyte counton 06-23-2021 Lymphocytes Auto (Unsp spec) [#/Vol] 2.66 10*3/uL 0.83-4.51 [facility] Work Phone: Basophil percentageon 2021 Basophils/100 WBC (Bld) 0.5 % 0-1 [facility] Work Phone: [phone] Bilirubin [Mass/Vol] 0.50 mg/dL 0.20-1.00 [facility] Work Phone: Comment on above: For patients on eltr ombopag therapy, use of Dimension [place] TBIL is not recommended. Chloride [Moles/Vol] 101 mmol/L 98-107 [facility] Work Phone: [phone] Eosinophils/100 WBC (Bld) 1.5 % 0-5 [facility] Work Phone: [phone] Glucose [Mass/Vol] 252 mg/dL 74-106 [facility] Work Phone: Comment on above: Glucose result great er than or equal to 200 mg/dLsuggests DIABETES MELLITUS per A.D.A. criteria. Neutrophils (Bld) [#/Vol] 5.2 10*3/uL 2.0-7.7 [facility] Work Phone: [phone] Neutrophils/100 WBC (Bld) 58.4 % 47-70 [facility] Work Phone: [phone] Potassium [Moles/Vol] 4.1 mmol/L 3.5-5.1 [facility] Work Phone: [phone] Protein [Mass/Vol] 7.9 g/dL 6.4-8.2 [facility] Work Phone: Sodium [Moles/Vol] 137 mmol/L 136-145 [facility] Work Phone: [phone] WBC (Bld) [#/Vol] 8.9 10*3/uL 4.4-11.0 [facility] Work Phone: Blood erythrocytes count (nu mber/volume)on 06-23-2021 RBC (Bld) [#/Vol] 4.77 10*6/uL 4.2-5.4 [facility] Work Phone: Blood hemoglobin measurement (mass/volume)on 06-23-2021 Hemoglobin (Bld) [Mass/Vol] 13.1 g/dL 12.0-15.0 [facility] Work Phone: Blood lymphocytes/100 leukoc yteson 06-23-2021 Lymphocytes/100 WBC (Bld) 30.0 % 19-41 [facility] Work Phone: Blood monocytes/100 leukocyt eson 06-23-2021 Monocytes/100 WBC (Bld) 9.3 % 0-10 [facility] Work Phone: Blood platelet mean volumeon 06-23-2021 Platelet mean volume (Bld) [Entitic vol] 10.2 fL 6.2-12.0 [facility] Work Phone: Determination of erythrocyte mean corpuscular volume (MCV)on 06-23-2021 MCV (RBC) [Entitic vol] 80.5 fL 81-99 [facility] Work Phone: Hematocrit Auto (Bld) [Volum e fraction]on 06-23-2021 Hematocrit (Bld) [Volume fraction] 38.4 % 37-47 [facility] Work Phone: Laboratory - Chemistry and C hemistry - challengeon 06-23-2021 ALP [Catalytic activity/Vol] 50 U/L 45-117 [facility] Work Phone: ALT [Catalytic activity/Vol] 42 U/L 13-56 [facility] Work Phone: CO2 [Moles/Vol] 28.0 mmol/L 21.0-32.0 [facility] Work Phone: Globulin (S) [Mass/Vol] 4.1 g/dL 2.2-4.2 [facility] Work Phone: Urea nitrogen/Creatinine [Mass ratio] 16.0 mg/mg 10-20 [facility] Work Phone: Laboratory - Hematology and Cell countson 06-23-2021 Erythrocyte distribution width (RBC) [Entitic vol] 40.6 fL 35.1-43.9 [facility] Work Phone: Erythrocyte distribution width (RBC) [Ratio] 13.9 % 11.6-14.6 [facility] Work Phone: Immature granulocytes/100 WBC (Bld) 0.300 % 0.0-0.9 [facility] Work Phone: Comment on above: IG% - Immature Granu locytes (promyelocytes, myelocytes and metamyelocytes) > 1% indicates that a LEFT SHIFT is Present. MCH (RBC) [Entitic mass] 27.5 pg 27.0-32.0 [facility] Work Phone: Nucleated RBC/100 WBC (Bld) [Ratio] 0 % 0-5 [facility] Work Phone: MCHC Auto (RBC) [Mass/Vol]on 06-23-2021 MCHC (RBC) [Mass/Vol] 34.1 g/dL 32-36 [facility] Work Phone: No Panel Informationon 06-23 Estimated GFR (MDRD) Amer 58 mL/min >60 [facility] Work Phone: Comment on above: GFR Calc Estimated GFR (MDRD) Non-Af Amer 48 mL/min >60 [facility] Work Phone: Comment on above: Non- GFR Calc Thyroid Stimulating Hormone (TSH) 4.89 uIU/mL 0.358-3.74 [facility] Work Phone: Platelets bldon 06-23-2021 Platelets (Bld) [#/Vol] 274 10*3/uL 150-450 [facility] Work Phone: Serum or plasma albumin thiago urement (mass/volume)on 06-23-2021 Albumin [Mass/Vol] 3.8 g/dL 3.2-5.0 [facility] Work Phone: Serum or plasma albumin/glob ulin mass ratioon 06-23-2021 Albumin/Globulin [Mass ratio] 0.9 {ratio} 0.9-2.4 [facility] Work Phone: Serum or plasma calcium thiago urement (mass/volume)on 06-23-2021 Calcium [Mass/Vol] 8.9 mg/dL 8.5-10.1 [facility] Work Phone: Serum or plasma creatinine m easurement (mass/volume)on 06-23-2021 Creatinine [Mass/Vol] 1.25 mg/dL 0.55-1.02 [facility] Work Phone: Comment on above: The validity of the calculated GFR & GFRAA in patients over 70 years has not been determined. Clinical correlation is essential. Serum or plasma urea nitroge n measurement (mass/volume)on 06-23-2021 Urea nitrogen [Mass/Vol] 20 mg/dL 7-18 [facility] Work Phone: Thin prep Papanicolaou smear with manual screeningon 06-23-2021 Thin prep Papanicolaou smear with manual screening 32 U/L 15-37 [facility] Work Phone: Thin prep Papanicolaou smear with manual screening 8 5-15 [facility] Work Phone: Basophil percentageon 2021 Cholesterol [Mass/Vol] 126 mg/dL <200 [facility] Work Phone: Comment on above: <200 mg/dL Desirable 200-240 mg/dL Borderline >240 mg/dL High Risk Triglyceride [Mass/Vol] 145 mg/dL <199 [facility] Work Phone: Comment on above: The drugs N-Acetylcy steine and Metamizole may falsely depress this assay.Serum Triglycerides Reference Interval Normal <150 mg/dL Borderline high 150 - 199 mg/dL High 200 - 499 mg/dL Very High > or = 500 mg/dL Laboratory - Chemistry and C hemistry - challengeon 06-09-2021 Cobalamin (Vitamin B12) [Mass/Vol] 392 pg/mL 211-911 [facility] Work Phone: Free T4 [Mass/Vol] 0.98 ng/dL 0.76-1.46 [facility] Work Phone: Laboratory - Hematology and Cell countson 06-09-2021 HbA1c (Bld) [Mass fraction] 9.4 % [facility] Work Phone: No Panel Informationon 06-09 Thyroid Stimulating Hormone (TSH) 2.37 uIU/mL 0.358-3.74 [facility] Work Phone: Vitamin D 25-Hydroxy 21.5 ng/mL [facility] Work Phone: Comment on above: Vitamin D 25(OH) Sta tus Range Deficiency <20 ng/mL (50nmol/L) Insufficiency 20 - 30 ng/mL (50 - 75 nmol/L) Sufficiency 30 - 100 ng/mL (75 - 250 nmol/L) Toxicity >100 ng/mL (>250 nmol/L) Serum or plasma cholesterol in HDL measurement (mass/volume)on 06-09-2021 Cholesterol in HDL [Mass/Vol] 41 mg/dL >40 [facility] Work Phone: Comment on above: The drugs N-Acetylcy steine and Metamizole may falsely depress this assay. Reference Range HDL <40 mg/dL Low HDL Cholesterol HDL >or= 60 mg/dL High HDL Cholesterol Serum or plasma cholesterol in VLDL measurement (mass/volume)on 06-09-2021 Cholesterol in VLDL [Mass/Vol] 29 mg/dL 5-40 [facility] Work Phone: Serum or plasma low density lipoprotein (LDL) cholesterol measurement (mass/volume)on 06-09-2021 Cholesterol in LDL [Mass/Vol] 56 mg/dL 0-130 [facility] Work Phone: Bacteria identified Cx Nom ( Wound)on 05-18-2021 Wound Culture Meth. resistant Staph. aureus [facility] Work Phone: Gram stain for investigation of transfusion reactionon 05-18-2021 Microscopic observation Gram stain Nom (Unsp spec) [facility] Work Phone: No Panel Informationon 05-18 Methicillin-Resist S.aureus DNA PCR Positive Negative [facility] Work Phone: Staphylococcus aureus DNA de tection by probe and target amplification methodon 05-18-2021 S. aureus DNA EMILY+probe Ql (Unsp spec) Positive Negative [facility] Work Phone: Absolute lymphocyte counton 05-17-2021 Lymphocytes Auto (Unsp spec) [#/Vol] 2.79 10*3/uL 0.83-4.51 [facility] Work Phone: Basophil percentageon 2021 Basophils/100 WBC (Bld) 0.4 % 0-1 [facility] Work Phone: Chloride [Moles/Vol] 104 mmol/L 98-107 [facility] Work Phone: Eosinophils/100 WBC (Bld) 1.6 % 0-5 [facility] Work Phone: Glucose [Mass/Vol] 227 mg/dL 74-106 [facility] Work Phone: Comment on above: Glucose result great er than or equal to 200 mg/dLsuggests DIABETES MELLITUS per A.D.A. criteria. Neutrophils (Bld) [#/Vol] 4.7 10*3/uL 2.0-7.7 [facility] Work Phone: Neutrophils/100 WBC (Bld) 55.4 % 47-70 [facility] Work Phone: Potassium [Moles/Vol] 4.2 mmol/L 3.5-5.1 [facility] Work Phone: Sodium [Moles/Vol] 139 mmol/L 136-145 [facility] Work Phone: WBC (Bld) [#/Vol] 8.5 10*3/uL 4.4-11.0 [facility] Work Phone: Blood erythrocytes count (nu mber/volume)on 05-17-2021 RBC (Bld) [#/Vol] 4.70 10*6/uL 4.2-5.4 [facility] Work Phone: Blood hemoglobin measurement (mass/volume)on 05-17-2021 Hemoglobin (Bld) [Mass/Vol] 12.5 g/dL 12.0-15.0 [facility] Work Phone: Blood lymphocytes/100 leukoc yteson 05-17-2021 Lymphocytes/100 WBC (Bld) 32.7 % 19-41 [facility] Work Phone: Blood monocytes/100 leukocyt eson 05-17-2021 Monocytes/100 WBC (Bld) 9.5 % 0-10 [facility] Work Phone: Blood platelet mean volumeon 05-17-2021 Platelet mean volume (Bld) [Entitic vol] 10.1 fL 6.2-12.0 [facility] Work Phone: Determination of erythrocyte mean corpuscular volume (MCV)on 05-17-2021 MCV (RBC) [Entitic vol] 80.6 fL 81-99 [facility] Work Phone: Hematocrit Auto (Bld) [Volum e fraction]on 05-17-2021 Hematocrit (Bld) [Volume fraction] 37.9 % 37-47 [facility] Work Phone: Laboratory - Chemistry and C hemistry - challengeon 05-17-2021 CO2 [Moles/Vol] 29.0 mmol/L 21.0-32.0 [facility] Work Phone: Urea nitrogen/Creatinine [Mass ratio] 20.2 mg/mg 10-20 [facility] Work Phone: Laboratory - Hematology and Cell countson 05-17-2021 Erythrocyte distribution width (RBC) [Entitic vol] 41.0 fL 35.1-43.9 [facility] Work Phone: Erythrocyte distribution width (RBC) [Ratio] 14.2 % 11.6-14.6 [facility] Work Phone: Immature granulocytes/100 WBC (Bld) 0.400 % 0.0-0.9 [facility] Work Phone: Comment on above: IG% - Immature Granu locytes (promyelocytes, myelocytes and metamyelocytes) > 1% indicates that a LEFT SHIFT is Present. MCH (RBC) [Entitic mass] 26.6 pg 27.0-32.0 [facility] Work Phone: Nucleated RBC/100 WBC (Bld) [Ratio] 0 % 0-5 [facility] Work Phone: Laboratory - Microbiology an d Antimicrobial susceptibilityon 05-17-2021 Bacteria identified Cx Nom (Bld) No growth in 5 days. [facility] Work Phone: MCHC Auto (RBC) [Mass/Vol]on 05-17-2021 MCHC (RBC) [Mass/Vol] 33.0 g/dL 32-36 [facility] Work Phone: No Panel Informationon 05-17 Estimated GFR (MDRD) Amer 62 mL/min >60 [facility] Work Phone: Comment on above: GFR Calc Estimated GFR (MDRD) Non-Af Amer 51 mL/min >60 [facility] Work Phone: Comment on above: Non- GFR Calc Platelets bldon 05-17-2021 Platelets (Bld) [#/Vol] 302 10*3/uL 150-450 [facility] Work Phone: Serum or plasma calcium thiago urement (mass/volume)on 05-17-2021 Calcium [Mass/Vol] 9.3 mg/dL 8.5-10.1 [facility] Work Phone: Serum or plasma creatinine m easurement (mass/volume)on 05-17-2021 Creatinine [Mass/Vol] 1.19 mg/dL 0.55-1.02 [facility] Work Phone: Comment on above: The validity of the calculated GFR & GFRAA in patients over 70 years has not been determined. Clinical correlation is essential. Serum or plasma urea nitroge n measurement (mass/volume)on 05-17-2021 Urea nitrogen [Mass/Vol] 24 mg/dL 7-18 [facility] Work Phone: Thin prep Papanicolaou smear with manual screeningon 05-17-2021 Thin prep Papanicolaou smear with manual screening 6 5-15 [facility] Work Phone: Laboratory - Hematology and Cell countson 05-12-2021 HbA1c (Bld) [Mass fraction] 10.2 % [facility] Work Phone: Absolute lymphocyte counton 04-14-2021 Lymphocytes Auto (Unsp spec) [#/Vol] 3.45 10*3/uL 0.83-4.51 [facility] Work Phone: Bacteria identified Cx Nom ( Wound)on 04-14-2021 Wound Culture Meth. resistant Staph. aureus [facility] Work Phone: Basophil percentageon 2021 Basophils/100 WBC (Bld) 0.4 % 0-1 [facility] Work Phone: Chloride [Moles/Vol] 102 mmol/L 98-107 [facility] Work Phone: Eosinophils/100 WBC (Bld) 1.6 % 0-5 [facility] Work Phone: Glucose [Mass/Vol] 279 mg/dL 74-106 [facility] Work Phone: Comment on above: Glucose result great er than or equal to 200 mg/dLsuggests DIABETES MELLITUS per A.D.A. criteria. Neutrophils (Bld) [#/Vol] 6.7 10*3/uL 2.0-7.7 [facility] Work Phone: Neutrophils/100 WBC (Bld) 58.3 % 47-70 [facility] Work Phone: Potassium [Moles/Vol] 4.5 mmol/L 3.5-5.1 [facility]: Sodium [Moles/Vol] 137 mmol/L 136-145 [facility] Work Phone: WBC (Bld) [#/Vol] 11.4 10*3/uL 4.4-11.0 [facility] Work Phone: Blood erythrocytes count (nu mber/volume)on 04-14-2021 RBC (Bld) [#/Vol] 4.66 10*6/uL 4.2-5.4 [facility] Work Phone: Blood hemoglobin measurement (mass/volume)on 04-14-2021 Hemoglobin (Bld) [Mass/Vol] 12.0 g/dL 12.0-15.0 [facility] Work Phone: Blood lymphocytes/100 leukoc yteson 04-14-2021 Lymphocytes/100 WBC (Bld) 30.3 % 19-41 [facility] [facility] Work [facility]: Blood monocytes/100 leukocyt eson 04-14-2021 Monocytes/100 WBC (Bld) 9.0 % 0-10 [facility] Work Phone: Blood platelet mean volumeon 04-14-2021 Platelet mean volume (Bld) [Entitic vol] 10.9 fL 6.2-12.0 [facility] Work Phone: Determination of erythrocyte mean corpuscular volume (MCV)on 04-14-2021 MCV (RBC) [Entitic vol] 82.2 fL 81-99 [facility] Work Phone: Erythrocyte sedimentation ra david 04-14-2021 ESR (Bld) [Velocity] 37 mm/h 0-30 [facility]: Gram stain for investigation of transfusion reactionon 04-14-2021 Microscopic observation Gram stain Nom (Unsp spec) [facility] Work Phone: Hematocrit Auto (Bld) [Volum e fraction]on 04-14-2021 Hematocrit (Bld) [Volume fraction] 38.3 % 37-47 [facility] Work Phone: Laboratory - Chemistry and C hemistry - challengeon 04-14-2021 CO2 [Moles/Vol] 29.0 mmol/L 21.0-32.0 [facility] Work Phone: Urea nitrogen/Creatinine [Mass ratio] 19.8 mg/mg 10-20 [facility] Work Phone: Laboratory - Hematology and Cell countson 04-14-2021 Erythrocyte distribution width (RBC) [Entitic vol] 40.5 fL 35.1-43.9 [facility] Work Phone: Erythrocyte distribution width (RBC) [Ratio] 13.7 % 11.6-14.6 [facility] Work Phone: Immature granulocytes/100 WBC (Bld) 0.400 % 0.0-0.9 [facility] Work Phone: Comment on above: IG% - Immature Granu locytes (promyelocytes, myelocytes and metamyelocytes) > 1% indicates that a LEFT SHIFT is Present. MCH (RBC) [Entitic mass] 25.8 pg 27.0-32.0 [facility] Work Phone: Nucleated RBC/100 WBC (Bld) [Ratio] 0 % 0-5 [facility] Work Phone: Laboratory - Microbiology an d Antimicrobial susceptibilityon 04-14-2021 Bacteria identified Cx Nom (Bld) No growth in 5 days. [facility] Work Phone: MCHC Auto (RBC) [Mass/Vol]on 04-14-2021 MCHC (RBC) [Mass/Vol] 31.3 g/dL 32-36 [facility] Work Phone: No Panel Informationon 04-14 Estimated GFR (MDRD) Amer 70 mL/min >60 [facility] Work Phone: Comment on above: GFR Calc Estimated GFR (MDRD) Non-Af Amer 58 mL/min >60 [facility] Work Phone: Comment on above: Non- GFR Calc Methicillin-Resist S.aureus DNA PCR Positive Negative [facility] Work Phone: Thyroid Stimulating Hormone (TSH) 4.56 uIU/mL 0.358-3.74 [facility] Work Phone: Platelets bldon 04-14-2021 Platelets (Bld) [#/Vol] 305 10*3/uL 150-450 [facility] Work Phone: Serum or plasma C reactive p rotein measurement (mass/volume)on 04-14-2021 CRP [Mass/Vol] 13.60 mg/L 0.0-3.0 [facility] Work Phone: Comment on above: C-Reactive Protein ( CRP) provides useful information for thediagnosis, therapy and monitoring of inflammatory processesand associated diseases. For the evaluation of Relative Riskfor Cardiovascular Disease, a High Sensitivity CRP (HSCRP)should be ordered. Serum or plasma calcium thiago urement (mass/volume)on 04-14-2021 Calcium [Mass/Vol] 8.7 mg/dL 8.5-10.1 [facility] Work Phone: Serum or plasma creatinine m easurement (mass/volume)on 04-14-2021 Creatinine [Mass/Vol] 1.06 mg/dL 0.55-1.02 [facility] Work Phone: Comment on above: The validity of the calculated GFR & GFRAA in patients over 70 years has not been determined. Clinical correlation is essential. Serum or plasma urea nitroge n measurement (mass/volume)on 04-14-2021 Urea nitrogen [Mass/Vol] 21 mg/dL 7-18 [facility] Work Phone: Staphylococcus aureus DNA de tection by probe and target amplification methodon 04-14-2021 S. aureus DNA EMLIY+probe Ql (Unsp spec) Positive Negative [facility] Work Phone: Thin prep Papanicolaou smear with manual screeningon 04-14-2021 Thin prep Papanicolaou smear with manual screening 6 5-15 [facility] Work Phone: Absolute lymphocyte counton 03-10-2021 Lymphocytes Auto (Unsp spec) [#/Vol] 4.46 10*3/uL 0.83-4.51 [facility] Work Phone: Basophil percentageon 2020 Bilirubin [Mass/Vol] 0.60 mg/dL 0.20-1.00 [facility] Work Phone: Comment on above: For patients on eltr ombopag therapy, use of Dimension [place] TBIL is not recommended. Chloride [Moles/Vol] 101 mmol/L 98-107 [facility] Work Phone: Eosinophils/100 WBC (Bld) 1.5 % 0-5 [facility] Work Phone: Glucose [Mass/Vol] 272 mg/dL 74-106 [facility] Work Phone: Comment on above: Glucose result great er than or equal to 200 mg/dLsuggests DIABETES MELLITUS per A.D.A. criteria.Please note revised GLUCOSE reference range effective 2017. Neutrophils (Bld) [#/Vol] 6.7 10*3/uL 2.0-7.7 [facility] Work Phone: [phone] Potassium [Moles/Vol] 3.9 mmol/L 3.5-5.1 [facility] Work Phone: [phone] Protein [Mass/Vol] 7.8 g/dL 6.4-8.2 [facility] Work Phone: [phone] Sodium [Moles/Vol] 138 mmol/L 136-145 [facility] Work Phone: WBC (Bld) [#/Vol] 12.5 10*3/uL 4.4-11.0 [facility] Work Phone: Blood erythrocytes count (nu mber/volume)on 03-10-2021 RBC (Bld) [#/Vol] 4.98 10*6/uL 4.2-5.4 [facility] Work Phone: Blood hemoglobin measurement (mass/volume)on 03-10-2021 Hemoglobin (Bld) [Mass/Vol] 13.1 g/dL 12.0-15.0 [facility] Work Phone: Blood lymphocytes/100 leukoc yteson 03-10-2021 Lymphocytes/100 WBC (Bld) 35.8 % 19-41 [facility] Work Phone: Blood monocytes/100 leukocyt eson 03-10-2021 Monocytes/100 WBC (Bld) 7.5 % 0-10 [facility] Work Phone: Blood platelet mean volumeon 03-10-2021 Platelet mean volume (Bld) [Entitic vol] 10.1 fL 6.2-12.0 [facility] Work Phone: Determination of erythrocyte mean corpuscular volume (MCV)on 03-10-2021 MCV (RBC) [Entitic vol] 79.5 fL 81-99 [facility] Work Phone: Hematocrit Auto (Bld) [Volum e fraction]on 03-10-2021 Hematocrit (Bld) [Volume fraction] 39.6 % 37-47 [facility] Work Phone: Laboratory - Chemistry and C hemistry - challengeon 03-10-2021 ALP [Catalytic activity/Vol] 67 U/L 45-117 [facility] Work Phone: ALT [Catalytic activity/Vol] 82 U/L 13-56 [facility] Work Phone: CO2 [Moles/Vol] 28.0 mmol/L 21.0-32.0 [facility] Work Phone: Globulin (S) [Mass/Vol] 4.3 g/dL 2.2-4.2 [facility] Work Phone: Urea nitrogen/Creatinine [Mass ratio] 18.6 mg/mg 10-20 [facility] Work Phone: Laboratory - Hematology and Cell countson 03-10-2021 Basophils/100 WBC (Unsp spec) 0.5 % 0-1 [facility] Work Phone: Erythrocyte distribution width (RBC) [Entitic vol] 39.1 fL 35.1-43.9 [facility] Work Phone: Erythrocyte distribution width (RBC) [Ratio] 13.7 % 11.6-14.6 [facility] Work Phone: Immature granulocytes/100 WBC (Bld) 0.900 % 0.0-0.9 [facility] Work Phone: Comment on above: IG% - Immature Granu locytes (promyelocytes, myelocytes and metamyelocytes) > 1% indicates that a LEFT SHIFT is Present. MCH (RBC) [Entitic mass] 26.3 pg 27.0-32.0 [facility] Work Phone: Neutrophils/100 WBC (Bld) 53.8 % 47-70 [facility] Work Phone: Nucleated RBC/100 WBC (Bld) [Ratio] 0 % 0-5 [facility] Work Phone: MCHC Auto (RBC) [Mass/Vol]on 03-10-2021 MCHC (RBC) [Mass/Vol] 33.1 g/dL 32-36 [facility] Work Phone: No Panel Informationon 03-10 Estimated GFR (MDRD) Amer 74 mL/min >60 [facility] Work Phone: Comment on above: GFR Calc Estimated GFR (MDRD) Non-Af Amer 61 mL/min >60 [facility] Work Phone: Comment on above: Non- GFR Calc Thyroid Stimulating Hormone (TSH) 4.63 uIU/mL 0.358-3.74 [facility] Work Phone: Platelets bldon 03-10-2021 Platelets (Bld) [#/Vol] 283 10*3/uL 150-450 [facility] Work Phone: Serum or plasma albumin thiago urement (mass/volume)on 03-10-2021 Albumin [Mass/Vol] 3.5 g/dL 3.2-5.0 [facility] Work Phone: Serum or plasma albumin/glob ulin mass ratioon 03-10-2021 Albumin/Globulin [Mass ratio] 0.8 {ratio} 0.9-2.4 [facility] Work Phone: Serum or plasma calcium thiago urement (mass/volume)on 03-10-2021 Calcium [Mass/Vol] 9.9 mg/dL 8.5-10.1 [facility] Work Phone: Serum or plasma creatinine m easurement (mass/volume)on 03-10-2021 Creatinine [Mass/Vol] 1.02 mg/dL 0.55-1.02 [facility] Work Phone: Comment on above: The validity of the calculated GFR & GFRAA in patients over 70 years has not been determined. Clinical correlation is essential. Serum or plasma urea nitroge n measurement (mass/volume)on 03-10-2021 Urea nitrogen [Mass/Vol] 19 mg/dL 7-18 [facility] Work Phone: Thin prep Papanicolaou smear with manual screeningon 03-10-2021 Thin prep Papanicolaou smear with manual screening 41 U/L 15-37 [facility] Work Phone: Thin prep Papanicolaou smear with manual screening 9 -15 [facility] Work Phone: Otheron 09-19-2006 CONVERTED ELECTRONIC SIGNATURE KIANA THOMAS M.D., PATHOLOGIST (Electronic signature on file) Final Signed Out: 09/19/2006 09:15 [facility] CONVERTED FINAL DIAGNOSIS A&B. RIGHT AND LEFT FALLOPIAN TUBES, PARTIAL EXCISION - TWO SEGMENTS OF UNREMARKABLE FALLOPIAN TUBE, EACH TOTALLY TRANSECTED. C. PLACENTA, MEMBRANES AND UMBILICAL CORD, DELIVERY - ECCENTRIC INSERTION OF UMBILICAL CORD. NO HISTOLOGIC ABNORMALITIES IDENTIFIED. [facility] CONVERTED ORDERING PROVIDER Ordering Provider: FRANSISCO SPARKS [facility] Culture, urine Bacteria identified Cx Nom (U) Escherichia coli [facility] Work Phone: Bacteria identified Cx Nom (U) Mixed Gram Pos & Gram Neg Org [facility] Work Phone: Bacteria identified Cx Nom (U) Positive [facility] Work Phone: Laboratory - Microbiology an d Antimicrobial susceptibility Bacteria identified Cx Nom (Bld) No growth in 5 days. [facility] Work Phone: No Panel Information Respiratory Panel (PCR) [facility] Work Phone: SARS-CoV-2 & FLU Antigen (Rapid) [facility] Work Phone: Vital Signs Date Time Vital Sign Value Performing Clinician Facility 05-02-2024 11:40-0500 Body height 170.[address] Phu Espinoza MD Work Phone: [facility] 05-02-2024 11:40-0500 Body mass index (BMI) [Ratio] 45.4 kg/m2 Dr. Phu Espinoza MD Work Phone: [facility] 05-02-2024 11:40-0500 Body weight 131.[address] Phu Espinoza MD Work Phone: [facility] 05-02-2024 11:40-0500 Diastolic blood pressure 81 mm[Hg] Dr. Phu Espinoza MD Work Phone: [facility] 05-02-2024 11:40-0500 Heart rate 75 /min Dr. Phu Espinoza MD Work Phone: 9(357)023-281240 [address] 05-02-2024 11:40-0500 SaO2% (BldA) [Mass fraction] 97 % Dr. Phu Espinoza MD Work Phone: 9(161)949-350591 [place] [address] 05-02-2024 11:40-0500 Systolic blood pressure 134 mm[Hg] Dr. Phu Espinoza MD Work Phone: 2(821)905-377625 [place] [address] 03-22-2024 13:42-0500 Body mass index (BMI) [Ratio] 45.4 kg/m2 Dr. Phu Espinoza MD Work Phone: 6(736)112-523625 [place] [address] 03-22-2024 13:42-0500 Body temperature 97.3 [degF] Dr. Phu Espinoza MD Work Phone: 0(079)839-131725 [place] [address] 03-22-2024 13:42-0500 Body weight 131.[address] Phu Espinoza MD Work Phone: 0(709)605-665725 [place] [address] 03-22-2024 13:42-0500 Diastolic blood pressure 79 mm[Hg] Dr. Phu Espinoza MD Work Phone: 8(013)568-802425 [place] [address] 03-22-2024 13:42-0500 Heart rate 85 /min Dr. Phu Espinoza MD Work Phone: 6(447)298-811225 [place] [address] 03-22-2024 13:42-0500 Respiratory rate 18 /min Dr. Phu Espinoza MD Work Phone: 6(366)626-131625 [place] [address] 03-22-2024 13:42-0500 SaO2% (BldA) [Mass fraction] 96 % Dr. Phu Espinoza MD Work Phone: 1(695)742-907525 [place] [address] 03-22-2024 13:42-0500 Systolic blood pressure 122 mm[Hg] Dr. Phu Espinoza MD Work Phone: 8(531)602-406425 [place] [address] 03-13-2023 08:55-0500 Body temperature 97.8 [degF] Dr. Phu Espinoza Work Phone: 8(585)605-703491 [place] [address] 03-13-2023 08:55-0500 Diastolic blood pressure 76 mm[Hg] Dr. Phu Espinoza Work Phone: 0(432)343-506425 [place] [address] 03-13-2023 08:55-0500 Heart rate 74 /min Dr. Phu Espinoza Work Phone: 3(361)465-254091 [place] [address] 03-13-2023 08:55-0500 Respiratory rate 16 /min Dr. Phu Espinoza Work Phone: 0(492)994-164191 [place] [address] 03-13-2023 08:55-0500 SaO2% (BldA) [Mass fraction] 97 % Dr. Phu Espinoza Work Phone: 7(330)272-496491 [place] [address] 03-13-2023 08:55-0500 Systolic blood pressure 110 mm[Hg] Dr. Phu Espinoza Work Phone: 3(331)931-755225 [place] [address] 03-13-2023 07:08-0500 Body height 170.[address] Phu Espinoza Work Phone: 5(205)408-668725 [place] [address] 03-13-2023 07:08-0500 Body mass index (BMI) [Ratio] 43.4 kg/m2 Dr. Phu Espinoza Work Phone: 6(408)550-848925 [place] [address] 03-13-2023 07:08-0500 Body weight [address] Phu Espinoza Work Phone: 1(727)041-998025 [place] [address] 03-02-2023 11:10-0500 Body height 170.[address] Phu Espinoza Work Phone: 2(387)729-822325 [place] [address] 03-02-2023 11:10-0500 Body mass index (BMI) [Ratio] 44.1 kg/m2 Dr. Phu Espinoza Work Phone: 6(287)462-220591 [place] [address] 03-02-2023 11:10-0500 Body temperature 98.6 [degF] Dr. Phu Espinoza Work Phone: 8(650)976-969891 [place] [address] 03-02-2023 11:10-0500 Body weight 127.[address] Phu Espinoza Work Phone: 7(666)674-202791 [place] [address] 03-02-2023 11:10-0500 Diastolic blood pressure 91 mm[Hg] Dr. Phu Espinoza Work Phone: 1(756)609-480991 [place] [address] 03-02-2023 11:10-0500 Heart rate 87 /min Dr. Phu Espinoza Work Phone: [facility] 03-02-2023 11:10-0500 SaO2% (BldA) [Mass fraction] 95 % Dr. Phu Espinoza Work Phone: [facility] 03-02-2023 11:10-0500 Systolic blood pressure 154 mm[Hg] Dr. Phu Espinoza Work Phone: [facility] 02-15-2023 14:17-0500 Body mass index (BMI) [Ratio] 43.4 kg/m2 Dr. Phu Espinoza Work Phone: [facility] 02-15-2023 14:17-0500 Body weight 125.[address] Phu Espinoza Work Phone: 8(027)702-360991 [place] [address] 02-15-2023 14:17-0500 Diastolic blood pressure 75 mm[Hg] Dr. Phu Espinoza Work Phone: [facility] 02-15-2023 14:17-0500 Respiratory rate 18 /min Dr. Phu Espinoza Work Phone: [facility] 02-15-2023 14:17-0500 Systolic blood pressure 114 mm[Hg] Dr. Phu Espinoza Work Phone: [facility] 11-17-2022 10:41-0400 Body height 171.[address] Phu Espinoza Work Phone: [facility] 11-17-2022 10:41-0400 Body mass index (BMI) [Ratio] 42.8 kg/m2 Dr. Phu Espinoza Work Phone: [facility] 11-17-2022 10:41-0400 Body temperature 98.4 [degF] Dr. Phu Espinoza Work Phone: [facility] 11-17-2022 10:41-0400 Body weight 125.[address] Phu Espinoza Work Phone: [facility] 11-17-2022 10:41-0400 Diastolic blood pressure 78 mm[Hg] Dr. Phu Espinoza Work Phone: [facility] 11-17-2022 10:41-0400 Heart rate 74 /min Dr. Phu Espinoza Work Phone: [facility] 11-17-2022 10:41-0400 Respiratory rate 18 /min Dr. Phu Espinoza Work Phone: [facility] 11-17-2022 10:41-0400 SaO2% (BldA) [Mass fraction] 98 % Dr. Phu Espinoza Work Phone: [facility] 11-17-2022 10:41-0400 Systolic blood pressure 112 mm[Hg] Dr. Phu Espinoza Work Phone: [facility] 08-17-2022 09:18-0400 Body height 171.[address] Phu Espinoza Work Phone: [facility] 08-17-2022 09:18-0400 Body mass index (BMI) [Ratio] 42.6 kg/m2 Dr. Phu Espinoza Work Phone: [facility] 08-17-2022 09:18-0400 Body temperature 98.4 [degF] Dr. Phu Espinoza Work Phone: [facility] 08-17-2022 09:18-0400 Body weight 125.[address] Phu Espinoza Work Phone: [facility] 08-17-2022 09:18-0400 Diastolic blood pressure 69 mm[Hg] Dr. Phu Espinoza Work Phone: [facility] 08-17-2022 09:18-0400 Heart rate 90 /min Dr. Phu Espinoza Work Phone: [facility] 08-17-2022 09:18-0400 Respiratory rate 20 /min Dr. Phu Espinoza Work Phone: [facility] 08-17-2022 09:18-0400 SaO2% (BldA) [Mass fraction] 94 % Dr. Phu Espinoza Work Phone: [facility] 08-17-2022 09:18-0400 Systolic blood pressure 100 mm[Hg] Dr. Phu Espinoza Work Phone: [facility] 05-11-2022 10:40-0500 Body height 171.[address] Phu Espinoza Work Phone: [facility] 05-11-2022 10:40-0500 Body mass index (BMI) [Ratio] 41.2 kg/m2 Dr. Phu Espinoza Work Phone: [facility] 05-11-2022 10:40-0500 Body temperature 97 [degF] Dr. Phu Espinoza Work Phone: [facility] 05-11-2022 10:40-0500 Body weight 121.[address] Phu Espinoza Work Phone: [facility] 05-11-2022 10:40-0500 Diastolic blood pressure 68 mm[Hg] Dr. Phu Espinoza Work Phone: [facility] 05-11-2022 10:40-0500 Heart rate 76 /min Dr. Phu Espinoza Work Phone: [facility] 05-11-2022 10:40-0500 Respiratory rate 18 /min Dr. Phu Espinoza Work Phone: [facility] 05-11-2022 10:40-0500 SaO2% (BldA) [Mass fraction] 94 % Dr. Phu Espinoza Work Phone: [facility] 05-11-2022 10:40-0500 Systolic blood pressure 96 mm[Hg] Dr. Phu Espinoza Work Phone: [facility] 03-29-2022 10:32-0500 Body temperature 98 [degF] Dr. Phu Espinoza Work Phone: [facility] 03-29-2022 10:32-0500 Diastolic blood pressure 90 mm[Hg] Dr. Phu Espinoza Work Phone: [facility] 03-29-2022 10:32-0500 Heart rate 85 /min Dr. Phu Espinoza Work Phone: [facility] 03-29-2022 10:32-0500 Respiratory rate 20 /min Dr. Phu Espinoza Work Phone: [facility] 03-29-2022 10:32-0500 SaO2% (BldA) [Mass fraction] 99 % Dr. Phu Espinoza Work Phone: [facility] 03-29-2022 10:32-0500 Systolic blood pressure 130 mm[Hg] Dr. Phu Espinoza Work Phone: [facility] 03-25-2022 16:55-0500 Body mass index (BMI) [Ratio] 41.3 kg/m2 Dr. Phu Espinoza Work Phone: 1(332)300-836091 [place] [address] 03-25-2022 16:55-0500 Body temperature 98.2 [degF] Dr. Phu Espinoza Work Phone: 3(954)989-965391 [place] [address] 03-25-2022 16:55-0500 Body weight 121.[address] Phu Espinoza Work Phone: 1(690)346-345991 [place] [address] 03-25-2022 16:55-0500 Diastolic blood pressure 82 mm[Hg] Dr. Phu Espinoza Work Phone: 3(557)588-850491 [place] [address] 03-25-2022 16:55-0500 Heart rate 86 /min Dr. Phu Espinoza Work Phone: 0(889)287-447591 [place] [address] 03-25-2022 16:55-0500 Respiratory rate 18 /min Dr. Phu Espinoza Work Phone: [facility] 03-25-2022 16:55-0500 SaO2% (BldA) [Mass fraction] 99 % Dr. Phu Espinoza Work Phone: [facility] 03-25-2022 16:55-0500 Systolic blood pressure 128 mm[Hg] Dr. Phu Espinoza Work Phone: [facility] 02-05-2022 16:25-0500 Body temperature 98.4 [degF] Dr. Phu Espinoza Work Phone: 5(893)488-021191 [place] [address] Work Phone: 02-05-2022 16:25-0500 Diastolic blood pressure 70 mm[Hg] Dr. Phu Espinoza Work Phone: [facility] Work Phone: 02-05-2022 16:25-0500 Heart rate 70 /min Dr. Phu Espinoza Work Phone: [facility] Work Phone: 02-05-2022 16:25-0500 Respiratory rate 18 /min Dr. Phu Espinoza Work Phone: [facility] Work Phone: 02-05-2022 16:25-0500 SaO2% (BldA) [Mass fraction] 97 % Dr. Phu Espinoza Work Phone: [facility] Work Phone: 02-05-2022 16:25-0500 Systolic blood pressure 122 mm[Hg] Dr. Phu Espinoza Work Phone: [facility] Work Phone: 02-05-2022 06:00-0500 Body weight 117.[address] Phu Espinoza Work Phone: [facility] Work Phone: 02-04-2022 13:05-0500 Body height 170.[address] Phu Espinoza Work Phone: [facility] Work Phone: 02-03-2022 23:14-0500 Body mass index (BMI) [Ratio] 40.9 kg/m2 Dr. Phu Espinoza Work Phone: [facility] Work Phone: 02-03-2022 22:03-0500 Body temperature 100.8 [degF] Dr. Phu Espinoza Work Phone: [facility] Work Phone: 02-03-2022 22:03-0500 Diastolic blood pressure 76 mm[Hg] Dr. Phu Espinoza Work Phone: [facility] Work Phone: 02-03-2022 22:03-0500 Heart rate 100 /min Dr. Phu Espinoza Work Phone: [facility] Work Phone: 02-03-2022 22:03-0500 Respiratory rate 20 /min Dr. Phu Espinoza Work Phone: [facility] Work Phone: 02-03-2022 22:03-0500 SaO2% (BldA) [Mass fraction] 96 % Dr. Phu Espinoza Work Phone: [facility] Work Phone: 02-03-2022 22:03-0500 Systolic blood pressure 118 mm[Hg] Dr. Phu Espinoza Work Phone: [facility] Work Phone: 02-03-2022 18:47-0500 Body height 170.[address] Phu Espinoza Work Phone: [facility] Work Phone: 02-03-2022 18:47-0500 Body mass index (BMI) [Ratio] 39.1 kg/m2 Dr. Phu Espinoza Work Phone: [facility] Work Phone: 02-03-2022 18:47-0500 Body weight 113.[address] Phu Espinoza Work Phone: [facility] Work Phone: 11-24-2021 11:48-0400 Body mass index (BMI) [Ratio] 39.8 kg/m2 Dr. Phu Espinoza Work Phone: [facility] Work Phone: 11-24-2021 11:48-0400 Body weight 117.[address] Phu Espinoza Work Phone: [facility] Work Phone: 11-24-2021 11:48-0400 Diastolic blood pressure 80 mm[Hg] Dr. Phu Espinoza Work Phone: [facility] Work Phone: 11-24-2021 11:48-0400 Heart rate 72 /min Dr. Phu Espinoza Work Phone: [facility] Work Phone: 11-24-2021 11:48-0400 Respiratory rate 16 /min Dr. Phu Espinoza Work Phone: [facility] Work Phone: 11-24-2021 11:48-0400 SaO2% (BldA) [Mass fraction] 98 % Dr. Phu Espinoza Work Phone: [facility] Work Phone: 11-24-2021 11:48-0400 Systolic blood pressure 122 mm[Hg] Dr. Phu Espinoza Work Phone: [facility] Work Phone: 08-09-2021 10:43-0400 Body height 171.[address] Phu Espinoza Work Phone: [facility] Work Phone: 08-09-2021 10:43-0400 Body mass index (BMI) [Ratio] 42 kg/m2 Dr. Phu Espinoza Work Phone: [facility] Work Phone: 08-09-2021 10:43-0400 Body temperature 94.5 [degF] Dr. Phu [facility]za [facility] [facility] Work Phone: 08-09-2021 10:43-0400 Body weight 123.[address] Phu Espinoza Work Phone: [facility] Work Phone: 08-09-2021 10:43-0400 Diastolic blood pressure 76 mm[Hg] Dr. Phu Espinoza Work Phone: [facility] Work Phone: 08-09-2021 10:43-0400 Heart rate 71 /min Dr. Phu Espinoza Work Phone: [facility] Work Phone: 08-09-2021 10:43-0400 Respiratory rate 16 /min Dr. Phu Espinoza Work Phone: [facility] Work Phone: 08-09-2021 10:43-0400 SaO2% (BldA) [Mass fraction] 97 % Dr. Phu Espinoza Work Phone: [facility] Work Phone: 08-09-2021 10:43-0400 Systolic blood pressure 110 mm[Hg] Dr. Phu Espinoza Work Phone: [facility] Work Phone: 08-09-2021 10:43-0400 Body height 171.[address] Phu Espinoza Work Phone: [facility] Work Phone: 08-09-2021 10:43-0400 Body mass index (BMI) [Ratio] 42 kg/m2 Dr. Phu Espinoza Work Phone: [facility] Work Phone: 08-09-2021 10:43-0400 Body temperature 94.5 [degF] Dr. Phu Espinoza Work Phone: [facility] Work Phone: 08-09-2021 10:43-0400 Body weight 123.[address] Phu Espinoza Work Phone: [facility] Work Phone: 08-09-2021 10:43-0400 Diastolic blood pressure 76 mm[Hg] Dr. Phu Espinoza Work Phone: [facility] Work Phone: 08-09-2021 10:43-0400 Heart rate 71 /min Dr. Phu Espinoza Work Phone: [facility] Work Phone: 08-09-2021 10:43-0400 Respiratory rate 16 /min Dr. Phu Espinoza Work Phone: [facility] Work Phone: 08-09-2021 10:43-0400 SaO2% (BldA) [Mass fraction] 97 % Dr. Phu Espinoza Work Phone: [facility] Work Phone: 08-09-2021 10:43-0400 Systolic blood pressure 110 mm[Hg] Dr. Phu Espinoza Work Phone: [facility] Work Phone: 06-09-2021 13:46-0400 Body height 171.[address] Phu Espinoza Work Phone: [facility] Work Phone: 06-09-2021 13:46-0400 Body mass index (BMI) [Ratio] 43.7 kg/m2 Dr. Phu Espinoza Work Phone: [facility] Work Phone: 06-09-2021 13:46-0400 Body temperature 96.5 [degF] Dr. Phu Espinoza Work Phone: [facility] Work Phone: 06-09-2021 13:46-0400 Body weight 128.[address] Phu Espinoza Work Phone: [facility] Work Phone: 06-09-2021 13:46-0400 Diastolic blood pressure 88 mm[Hg] Dr. Phu Espinoza Work Phone: [facility] Work Phone: 06-09-2021 13:46-0400 Heart rate 87 /min Dr. Phu Espinoza Work Phone: [facility] Work Phone: 06-09-2021 13:46-0400 Respiratory rate 18 /min Dr. Phu Espinzoa Work Phone: [facility] Work Phone: 06-09-2021 13:46-0400 SaO2% (BldA) [Mass fraction] 98 % Dr. Phu Espinoza Work Phone: [facility] Work Phone: 06-09-2021 13:46-0400 Systolic blood pressure 140 mm[Hg] Dr. Phu Espinoza Work Phone: [facility] Work Phone: 05-13-2021 07:19-0500 Body mass index (BMI) [Ratio] 45.2 kg/m2 Dr. Phu Espinoza Work Phone: [facility] Work Phone: 05-13-2021 07:19-0500 Body temperature 96.7 [degF] Dr. Phu Espinoza Work Phone: [facility] Work Phone: 05-13-2021 07:19-0500 Body weight 132.[address] Phu Espinoza Work Phone: [facility] Work Phone: 05-13-2021 07:19-0500 Diastolic blood pressure 88 mm[Hg] Dr. Phu Espinoza Work Phone: [facility] Work Phone: 05-13-2021 07:19-0500 Heart rate 93 /min Dr. Phu Espinoza Work Phone: [facility] Work Phone: 05-13-2021 07:19-0500 Respiratory rate 18 /min Dr. Phu Espinoza Work Phone: [facility] Work Phone: 05-13-2021 07:19-0500 SaO2% (BldA) [Mass fraction] 96 % Dr. Phu Espinoza Work Phone: [facility] Work Phone: 05-13-2021 07:19-0500 Systolic blood pressure 140 mm[Hg] Dr. Phu Espinoza Work Phone: [facility] Work Phone: Encounters Encounter Date Encounter Type Care Provider Facility Start: 07-03-2024 End: 07-03-[address] Phu Espinoza MD Work Phone: [facility] Work Phone: Start: 07-03-2024 End: 07-03-[address] Phu Espinoza MD -Laboratory Work Phone: Start: 07-03-2024 End: 07-03-[address] [facility] Facility:[facility] Start: 05-02-2024 End: 05-02-2024 Patient encounter procedure Massiel Gibbons DIRECTOR WORK-C -Laboratory Work Phone: Start: 05-02-2024 End: 05-02-2024 Patient encounter procedure Massiel Gibbons DIRECTOR WORK-C -[facility] Work Phone: Start: 05-02-2024 End: 05-02-2024 ambulatory Massiel Shai Facility:[facility] Start: 05-02-2024 End: 05-02-2024 ambulatory Massiel Shai Facility:[facility] Start: 04-19-2024 End: 04-19-[address] Jodi Agee MD -[facility] Work Phone: Start: 04-19-2024 End: 04-19-2024 ambulatory Jodi Agee Facility:[facility] Start: 03-22-2024 End: 03-22-[address] Jodi Agee MD -[facility] Work Phone: Start: 03-22-2024 End: 03-22-2024 ambulatory Phu Chi Alexis Facility:[facility] Start: 03-04-2024 End: 03-04-2024 ambulatory Phu Chi Alexis Facility:[facility] Start: 02-17-2024 ambulatory Phu Chi Alexis Facility:[facility] Start: 02-16-2024 End: 02-16-2024 ambulatory Massiel Shai Facility:[facility] Start: 01-31-2024 End: 01-31-2024 ambulatory Phu Chi Alexis Facility:[facility] Start: 01-24-2024 End: 01-24-2024 ambulatory Phu Chi Alexis Facility:[facility] Start: 01-10-2024 End: 01-10-2024 ambulatory Phu Chi Alexis Facility:[facility] Start: 11-01-2023 End: 11-01-2023 ambulatory Phu Chi Alexis Facility:[facility] Start: 08-03-2023 End: 08-03-2023 ambulatory Phu Chi Alexis Facility:[facility] Start: 07-12-2023 ambulatory Phu Chi Alexis Facility:[facility] Start: 06-22-2023 End: 06-22-[address] Phu Espinoza Work Phone: [facility] Work Phone: Start: 06-22-2023 End: 06-22-[address] Phu Espinoza Work Phone: [facility]-Radiology, [facility] Work Phone: Start: 04-03-2023 End: 04-03-[address] Phu Espinoza Work Phone: [facility] Work Phone: Start: 04-03-2023 End: 04-03-[address] Phu Espinoza Work Phone: [facility]-Laboratory, Phy Office 3rd Flr Start: 03-13-2023 Non-patient / Non-visit Dr. Sloan Espinoza Work Phone: [facility] Start: 03-13-2023 End: 03-13-2023 Admission to same day surgery center Dr. Phu Espinoza Work Phone: [facility]-Endoscopy Work Phone: Start: 03-13-2023 End: 03-13-[address] Phu Espinoza Work Phone: [facility] Work Phone: Start: 03-02-2023 End: 03-02-[address] Phu Espinoza Work Phone: [facility] Work Phone: Start: 03-02-2023 End: 03-02-[address] [facility] Start: 03-02-2023 End: 03-02-[address] Phu Espinoza Work Phone: [facility] Work Phone: Start: 02-15-2023 End: 02-15-[address] Phu Espinoza Work Phone: [facility] Work Phone: Start: 02-08-2023 End: 02-08-[address] Phu Espinoza Work Phone: [facility] Work Phone: Start: 02-08-2023 End: 02-08-[address] Phu [facility] Start: 01-11-2023 End: 01-11-[address] Phu Espinoza Work Phone: [facility] Work Phone: Start: 01-11-2023 End: 01-11-[address] Phu [facility]za [facility] Work Phone: Start: 01-09-2023 End: 01-09-[address] Phu Espinoza Work Phone: [facility] Work Phone: Start: 01-09-2023 End: 01-09-[address] Phu [facility]za [facility] Start: 01-03-2023 End: 01-03-[address] Phu Espinoza Work Phone: [facility] 3rd Wyr Start: 11-17-2022 End: 11-17-[address] Phu Espinoza Work Phone: [facility] Work Phone: Start: 08-17-2022 End: 08-17-[address] Phu Espinoza Work Phone: [facility] Work Phone: Start: 08-17-2022 End: 08-17-[address] Phu Espinoza Work Phone: [facility] Work Phone: Start: 08-17-2022 End: 08-17-[address] Phu Espinoza Work Phone: [facility] Work Phone: Start: 06-28-2022 End: 06-28-[address] Phu Espinoza Work Phone: [facility] Work Phone: Start: 06-28-2022 End: 06-28-[address] Phu Espinoza Work Phone: [address] Start: 05-11-2022 End: 05-11-[address] Phu Espinoza Work Phone: [facility] Endocr[facility]ology Start: 03-29-2022 End: 03-29-[address] Phu Espinoza Work Phone: [facility] Start: 03-25-2022 End: 03-25-[address] Phu Espinoza Work Phone: [facility] Start: 02-08-2022 End: 02-08-[address] Phu Espinoza Work Phone: [facility] Work Phone: Start: 02-08-2022 End: 02-08-[address] Phu [facility] Start: 02-05-2022 Non-patient / Non-visit Dr. Sloan Espinoza Work Phone: [facility] Start: 02-04-2022 Non-patient / Non-visit Dr. Sloan Espinoza Work Phone: [facility] Start: 02-04-2022 Non-patient / Non-visit Dr. Sloan Espinoza Work Phone: [facility] Start: 02-03-2022 End: 02-05-2022 Evaluation and management of inpatient Dr. Phu Espinoza [facility] Start: 02-03-[address] Phu Espinoza Work Phone: [facility] Work Phone: Start: 12-21-2021 End: 12-21-[address] Phu Espinoza Work Phone: [facility] Office 3rd Flr Start: 11-24-2021 End: 11-24-[address] Phu Espinoza Work Phone: [facility] Endocrinology Start: 10-20-2021 End: 10-20-[address] Phu Espinoza Work Phone: [facility] Start: 09-21-2021 End: 09-21-[address] Phu Espinoza Work Phone: [facility] Office 3rd Flr Start: 08-25-2021 End: 08-25-[address] Phu Espinoza [facility] Start: 08-09-2021 End: 08-09-[address] Phu Espinoza Work Phone: [facility] Endocrinology Start: 07-21-2021 End: 07-21-[address] Phu Espinoza Work Phone: [facility], y Office 3rd Flr Start: 07-20-2021 End: 07-20-[address] hPu Espinoza Work Phone: [facility], y Office 3rd Flr Start: 07-19-2021 End: 07-19-[address] Phu Espinoza [facility] Start: 06-23-2021 End: 06-23-[address] Phu Espinoza Work Phone: [facility], y Office 3rd Flr Start: 06-09-2021 End: 06-09-[address] Phu Espinoza Work Phone: [facility], [facility] Start: 05-18-2021 End: 05-18-[address] Phu Espinoza Work Phone: [facility], Specimen Start: 05-17-2021 End: 05-17-[address] Phu Espinoza Work Phone: [facility], y Office 3rd Flr Start: 05-13-2021 End: 05-13-[address] Phu Espinoza Work Phone: [facility] Endocrinology Start: 04-14-2021 End: 04-14-[address] Phu Espinoza Work Phone: [facility], y Office 3rd Flr Start: 03-10-[address] Phu Espinoza Work Phone: [facility]-Laboratory, Phy Office 3rd Flr Start: 09-14-2006 End: 09-14-2006 Patient encounter procedure Fransisco Sparks Work Phone: [facility] Start: 09-14-2006 Results Only Fransisco cherry Work Phone: [facility] Procedures Date Procedure Procedure Detail Performing Clinician [...] blood in stool specimen using immunoassay Dr. hPu Espinoza Work Phone: Start: 02-04-2022 CT of [...] 03-13-2023 Colonoscopy w/biopsy single/multiple COLONOSCOPY AND BIOPSY [facility] Start: 03-13-2023 Egd transoral biopsy single/multiple EGD BIOPSY SINGLE/MULTIPLE [facility] Start: 03-13-2023 Patient discharge [facility] Start: 02-05-2022 Patient discharge [facility] Work Phone: Start: 02-04-2022 Care planning and problem solving actions [facility] Work Phone: Start: 02-03-2022 Following clinical pathway protocol [facility] Work Phone: Start: 02-03-2022 Assessment of risk of venous thromboembolism [facility] Work Phone: Start: 02-03-2022 Care regimes management [facility] Work Phone: Start: 02-03-2022 Incentive spirometry [facility] Work Phone: Start: 02-03-2022 Inhalation therapy procedure [facility] Work Phone: Start: 02-03-2022 Insertion of catheter into peripheral vein [facility] Work Phone: Start: 02-03-2022 Introduction of urinary catheter [facility] Work Phone: Start: 02-03-2022 Measuring intake and output [facility] Work Phone: Start: 02-03-2022 Providing care according to standard [facility] Work Phone: Start: 02-03-2022 Provision of activity privileges [facility] Work Phone: Start: 02-03-2022 Referral to general surgeon [facility] Work Phone: Start: 02-03-2022 End: 02-03-2022 [facility] Work Phone: Start: 02-03-2022 Verification routine [facility] Work Phone: Start: 02-03-2022 Admission procedure [facility] Work Phone: Start: 02-03-2022 End: 02-03-2022 [facility] Work Phone: Start: 02-03-2022 End: 02-03-2022 Blood culture [facility] Work Phone: Start: 02-03-2022 Patient referral to dietitian [facility] Work Phone: Start: 02-10-2021 HPV TESTING HPV TESTING [facility] Start: 02-10-2021 PAP TESTING PAP TESTING [facility] Start: 11-26-2019 Influenza vaccination INFLUENZA (#1) [facility] Start: 02-18-2017 Mammography MAMMOGRAM [facility] Start: 1989 Urine microalbumin profile DTAP,TDAP,TD (1 - Tdap) [facility] Start: 1988 ANNUAL PCP TEAM CHRONIC DISEASE VISIT ANNUAL PCP TEAM CHRONIC DISEASE VISIT [facility] Start: 1988 Hepatitis B surface antibody level LDL CHOLESTEROL [facility] Start: 1988 HEPATITIS C SCREENING HEPATITIS C SCREENING [facility] Start: 1988 HIV SCREENING HIV SCREENING [facility] Start: 1986 ONE PNEUMOVAX PRIOR TO AGE 65 ONE PNEUMOVAX PRIOR TO AGE 65 [facility] Start: 1980 [object Object] DIABETIC FOOT EXAM [facility] Start: 1980 Hepatitis B screening URINE ALBUMIN:CREATININE RATIO [facility] Start: 1980 Hepatitis C antibody, confirmatory test DILATED RETINAL EXAM [facility] Start: 1975 HbA1c (Bld) [Mass fraction] [facility] Bacteria identified in Blood by Culture Blood Culture [facility] Work Phone: Bacteria identified in Urine by Culture Urine Culture [facility] Work Phone: Blood culture [facility] Work Phone: Colonoscopy [facility] Hemoglobin A1c/Hemoglobin.total in Blood [facility] Work Phone: Patient Education ED Abdominal P ain Unkn Cause Fem [facility] Work Phone: Patient referral [facility] Work Phone: T4 free measurement [facility] Work Phone: Thyroid stimulating hormone measurement [facility] Work Phone: [facility] Immunizations Immunization Date Immunization Notes Care Provider Fa kelsey 12-21-2021 Covid (Cam & Cam) Dr. Phu Espinoza Work Phone: [facility] 12-21-2021 influenza, injectabl e, quadrivalent, preservative free Dr. Phu Espinoza Work Phone: [facility] 12-21-2021 influenza, seasonal, injectable Dr. Phu Espinoza Work Phone: [facility] Payers Date Payer Category Payer Private Health Insurance [id number] 2023 Self-pay [id number] 2023 Unknown [id number] 1999 Unknown MMO [facility] MED PLUS [id number] 1999-2008 PPO [id number] Unknown [id number] Unknown [facility] PACKAGE PLAN [id number] Unknown [id number] 62 Unknown [id number] 62 Unknown [id number] 62 Unknown [id number] 62 Unknown [id number] 62 Unknown [id number] 62 Unknown [id number] 62 Unknown [id number] 62 Unknown [id number] 62 Unknown [id number] 62 Unknown [id number] 62 Unknown [id number] 62 Unknown [id number] 62 Unknown [id number] 62 Unknown [id number] 62 Social History Date Type Detail Facility Start: 02-08-2006 End: 03-07-2023 Tobacco smoking status NHIS Never smoker [facility] Start: 02-08-2006 Alcohol intake 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 Start: 06-09-2021 End: 03-07-2023 Tobacco smoking status WYIS Unknown if ever smoked [facility] Start: 05-18-2020 None [facility] Start: 05-18-2020 Spouse/ Signif icant Other [facility] Start: 02-03-2019 Non-smoker [facility] Start: 1970 Sex Assigned At Female W [facility] Start: 07-09-2024 Sex Female (finding) [facility] Goals Date Patient Goal Desired Activity /State Functional Status Date Assessment Result Facility 02-05-2022 Functional status Up ad edgard;Bathroom Priv ilege [facility] Work Phone: Mental Status Date Assessment Result Facility 03-13-2023 Cognitive function Voice/Name [facility] Work Phone: 03-13-2023 Cognitive function Patient Orien tation Person;Place;Time [facility] Work Phone: 02-05-2022 Cognitive function Voice/Name [facility] Work Phone: 02-03-2022 Cognitive function Level Of Cons ciousness Awake;Alert;Appropriate;Follow s Commands [facility] Work Phone: Clinical Notes [...] 11:39am Obesity chronic May 02, 2024 11:39am [facility] Work Phone: [phone] 350-153212-18-2023 History and physical note Author Jodi Agee [facility] March 13, 2023 7:14am Note Date/Time March 13, 2023 7:12am [facility] Medical Records Department [address] [place] [address] History & Physical Exam 03/13/23 0710 MR#: [id number] Acct: [id number] Name: ARLEN NGUYEN Hattie Rep #:[id number] : 1970 52 From: Jodi Agee MD PCP: Dr. Phu Espinoza MD Status:REG S [place] Location: [place] [address] History and Physical Date of Admission: 03/13/23 Date of Service: 02/15/23 MR#: [id number] Acct: [id number] Name: ARLEN NGUYEN Hattie Rep #: [id number] : 1970 Provider: Dr. Jodi Agee MD Age/Sex: 52/F Location: [facility] Status: Signed Intake Vital Signs 11/17/2309:41 02/15/2314:17 Height 5 ft 7.5 in 5 ft 7 in Weight: 277 lb BMI 43.4 BP 114/75 Blood Pressure Location Rt brachial Position Sitting Respiration 18 Intake Visit Reasons: Anemia Chief Complaint: anemia Manager Drilling Required: No Is patient in pain?: No [...] not take any other PPI or other qatf-ars-mleiklo medications. Patient is adopted does not know [...] healthy appearing, comfortable and no acute distress [facility] Head: normocephalic and atraumatic Neck Neck: [...] Dulcolax split prep. Jodi Agee M.D. Pager: [phone] [facility] [address] [place] [address], [address] [place] [address] Office: [phone] Coding Level of Care Code Off vis,new,level [...] MD; Dr. Jodi Agee MD ~* Signed [facility] Work Phone: [phone]) 861-764912-18-2023 Procedure [facility] 03-13-2023 Procedure [facility]12-18-2023 Procedure note [facility]12-18-2023 Procedure [facility] Evaluation note* Diagnosis Onset Date Resolution Status Diabetes chronic High cholesterol chronic Hypertension chronic Hypothyroidism chronic Morbid obesity with BMI of 45.0-49.9, adult chronic Diabetes chronic Distal paresthesia chronic High cholesterol chronic Hypertension chronic Hypothyroidism chronic Vitamin D deficiency [facility] Work Phone: evaluation note* Diagnosis Onset Date Resolution Status Diabetes chronic High cholesterol chronic Hypertension chronic Hypothyroidism chronic Morbid obesity with BMI of 45.0-49.9, adult chronic Diabetes chronic Distal paresthesia chronic High cholesterol chronic Hypertension chronic Hypothyroidism chronic Vitamin D deficiency chronic Diabetes chronic Hypertension chronic Hypothyroidism chronic Morbid obesity with BMI of 45.0-49.9, adult [facility] Work Phone: Evaluation note* Diagnosis Onset Date Resolution Status Diabetes chronic Distal paresthesia chronic High cholesterol chronic Hypertension chronic Hypothyroidism chronic Vitamin D deficiency chronic Diabetes chronic Hypertension chronic Hypothyroidism chronic Morbid obesity with BMI of 45.0-49.9, [facility] Work Phone: Evaluation note* Diagnosis Onset Date Resolution Status Diabetes chronic Hypertension chronic Hypothyroidism chronic Morbid obesity with BMI of 45.0-49.9, adult [facility] Work Phone: Evaluation note* Diagnosis Onset Date Resolution Status Diabetes chronic Hypertension chronic Obesity (BMI 30-39.9) chroni c Abdominal pain acute Abdominal pain, RLQ acute Fever acute History of diabetes mellitus acute Nausea acute SIRS (systemic inflammatory response syndrome) acute Vomiting acute History of chronic kidney disease chronic [facility] Work Phone: Evaluation note* Diagnosis Onset Date Resolution Status Diabetes chronic Hypertension chronic Obesity (BMI 30-39.9) chroni c Abdominal pain acute Abdominal pain, RLQ acute History of diabetes mellitus acute History of chronic kidney disease chronic Fever resolved Nausea resolved Vomiting resolved [facility] Work Phone: Evaluation note* Diagnosis Onset Date Resolution Status Acute pharyngitis, unspecified acute Shingles acute Diabetes chronic Obesity (BMI 30-39.9) [facility] Work Phone: Evaluation note* Diagnosis Onset Date Resolution Status CKD (chronic kidney disease) stage 3, GFR 30-59 ml/min chronic Diabetes chronic Obesity [facility] Work Phone: Evaluation note* Diagnosis Onset Date Resolution Status Diabetes chronic Obesity [facility] Work Phone: Evaluation note* Diagnosis Onset Date Resolution Status Diabetes chronic Obesity chronic Epigastric pain acute Anemia noneactive Fatigue acute Depression chronic Diabetes chronic Hypertension chronic Hypothyroidism chronic Obesity chronic Vitamin D deficiency chronic [facility] Work Phone: Evaluation note* Diagnosis Onset Date Resolution Status Epigastric pain acute Anemia noneactive Fatigue acute Depression chronic Diabetes chronic Hypertension chronic Hypothyroidism chronic Obesity chronic Vitamin D deficiency chronic [facility] Work Phone: Evaluation note* Diagnosis Onset Date Resolution Status Fatigue acute Depression chronic Diabetes chronic Hypertension chronic Hypothyroidism chronic Obesity chronic Vitamin D deficiency [facility] Work Phone: Hospital Discharge instructions Additional Instructions Your CAT scan normal appendix today. No other acute findings. With your fever all your labs are normal including COVID and influenza. Continue clear liquid diet next 12 to 24 hours. Tylenol as needed. If pain intensifies or worsens in your right lower quadrant abdomen, return for reevaluation.[facility] Work Phone: Reason for referral (narrative)No reason for referral information availableWBl[facility]: Chief Complaint and Reason for Visit Chief Complaint DIRECTOR WORK-DM-NPP MAILED 1 M FU Reason for Visit Diabetes High cholesterol Hypertension Hypothyroidism Morbid obesity with BMI of 45.0-49.9, adult Diabetes Distal paresthesia High cholesterol Hypertension Hypothyroidism Vitamin D deficiency Chief Complaint DIRECTOR WORK-DM-NPP MAILED 1 M FU KIDNEY STONES Reason for Visit Diabetes High cholesterol Hypertension Hypothyroidism Morbid obesity with BMI of 45.0-49.9, adult Diabetes Distal paresthesia High cholesterol Hypertension Hypothyroidism Vitamin D deficiency Chief Complaint DIRECTOR WORK-DM-NPP MAILED 1 M FU KIDNEY STONES 2 [...] No February 03 021 7:01pm Power of Campaign Developer Yes February 03, 2021 7:01pm Advance Directive Response Recorded Date/ Time Advance Directives No September 11 10:46am Living Will No February 03 022 7:20pm Power of Campaign Developer No February 03, 2022 7:20pm Advance Directive Response Recorded Date/ Time Name of Medical Power of Campaign Developer tammy nguyen February 03, 2022 11:15pm Advance Directives No September 11 10:46am Living Will No February 03 022 11:15pm Power of Campaign Developer Yes February 03, 2022 11:15pm Advance Directive Response Recorded Date/ Time Advance Directives No September 11 11:46am Living Will No February 04, 022 12:15am Power of Campaign Developer Yes February 04, 2022 12:15am Advance Directive Response Recorded Date/ Time Advance Directives No September 11 15 10:46am Living Will No February 03, 2 022 11:15pm Power of Campaign Developer Yes February 03, 2022 11:15pm Advance Directive Response Recorded Date/ Time Name of Medical Power of Campaign Developer [place] March 07, 2023 1:20pm Advance Directives No September 11 10:46am Living Will Yes March 07, 2 023 1:20pm Power of Campaign Developer Yes March 07, 2023 1:20pm Advance Directive Response Recorded Date/ Time Name of Medical Power of Campaign Developer [place] March 07, 2023 2:20pm Advance Directives No September 11 11:46am Living Will Yes March 07, 2 023 2:20pm Power of Campaign Developer Yes March 07, 2023 2:20pm Advance Directive [...] or prosecute any alcohol or drug abuse patient.[facility] Goals (unrecognized section and content) Goals [...] 2024 End: May 02, 2024 Massiel Gibbons DIRECTOR WORK-C Attending Provider Active Start: May 02, 2024 End: May 02, 2024 Massiel Gibbons DIRECTOR WORK-C Referring Provider Active Start: May 02, 2024 [...] section and content) DATE CREATED AUTHOR 07/11/2024 [facility] FOR RECORDS PERTAINING TO PATIENTS WHO ARE [...] BE BASED ON THE PRIMARY CLINICAL RECORDS. [facility] provides no warranty or guarantee of the accuracy or completeness of information in this document.
--- OUTSIDE RECORDS SUMMARY | 2024-10-05 21:31 | XMS RPT_ITS | CCD ---
Author Organization [facility] Care Team Providers Care Wood Borer Name Role Phone Charles Rae Primary Care [...] Other Provider Dr. Marcellus Ceballos Attending Provider 1([facility])[phone] Alexis, Dr. Phu Aldana Primary Care Provider Alexis, Dr. Phu Aldana Referring Provider Jemma SIMMONS, PA Evin Sofia Attending Provider IRIS Lemus Attending Provider Shai LAB COORDINATOR-C Massiel Attending Provider Alexis, Dr. Phu Aldana Primary Care Provider Alexis, Dr. Phu Aldana Referring Provider Shai, LAB COORDINATOR-C Massiel Attending Provider Alexis, Dr. Phu Aldana Primary Care Provider Alexis, Dr. Phu Aldana Referring Provider Shai, LAB COORDINATOR-C Massiel Attending Provider Alexis, Dr. Phu Aldana Primary Care Provider Alexis, Dr. Phu Aldana Referring Provider Shai LAB COORDINATOR-C Massiel Attending Provider Dr. Jodi Agee Attending Provider Dr. Jodi Agee Other Provider Alexis, Dr. Phu Aldana Primary Care Provider Alexis, Dr. Phu Aldana Referring Provider LISY GibbonsC Massiel Attending Provider Alexis, Dr. Phu Aldana Primary Care Provider Alexis, Dr. Phu Aldana Referring Provider Shai LAB COORDINATOR-C Massiel Attending Provider Dr. Jodi Agee Attending Provider Dr. Jodi Agee Other Provider Alexis DICKENS, Dr. Phu Aldana Primary Care Provider Alexis DICKENS, Dr. Phu Aldana Referring Provider Cyndie DICKENS, Dr. Zapata Attending Provider Cyndie DICKENS, Dr. Zapata Referring Provider Shai LAB COORDINATOR-C, Massiel Attending Provider Shai LAB COORDINATOR-CMassiel Referring Provider [phone] Dr. Phu Espinoza MD, Chi Attending Provider Robotham, Jodi Referring Unavailable Robotham, Jodi Attending [...] Unavailable Alexis, Phu Chi Referring Unavailable Shai, Masisel Attending Unavailable Alexis, Phu Chi Primary Care [...] Codeine Drug Allergy 6 Mental Status Change [facility] (20 sources) predniSONE Drug Allergy 6 Mental Status Change [facility] (1 source) Sertraline Drug Allergy 2 Unknown [facility] (8 sources) Nuts (not including peanuts) Allergy to substance 2 Anaphylaxis [facility] Work Phone: (20 sources) peanut allergenic extract Drug Allergy 2 Anaphylaxis [facility] (20 sources) Sertraline; Translations: [sertraline HCl] Drug Allergy 2 Other [facility] (20 sources) Shellfish; Translations: [shellfish derived] Allergy to substance 2 Anaphylaxis [facility] (14 sources) nut - unspecified; Translations: [nut - unspecified] Allergy to substance 2 Anaphylaxis [facility] (1 source) Codeine Drug Allergy 5 [facility] Repository (1 source) peanut allergenic extract Drug Allergy 5 [facility] Repository (1 source) predniSONE Drug Allergy 5 [facility] Repository Medications Current Medications Medication Drug Class(es) [...] mg PO daily June 10, 2024 11:55am [id number] 0.3 ml EPINEPHrine 1 mg/ml auto-injector (20 [...] 11, 2022 1:00am February 15, 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 End: 02-15-2023 take 1 tablet by mouth once daily Sulfamethoxazole-Trimethoprim Discontinu ed 1 TABLET PO DAILY May 11, 2022 1:00am February 15, 2023 3:18pm termite exterminator valACYclovir 1000 mg oral tablet (10 sources) [...] deficiency, unspecified] Chronic Other aftercare (1 source) termite exterminator (current) use of insulin; Translations: [care home (current) use of insulin] Onset: 05-02-2024 Episodic [...] 07-03-2024 Neutrophils (Bld) [#/Vol] 4.9 10*3/uL 2.0-7.7 [facility] Anion gap in Serum or Plasma Ordered By: Phu Espinoza on 07-03-2024 Anion gap [Moles/Vol] 12 mmol/L - [facility] BUN/creatinine ratioOrdered By: Phu Espinoza on 07-03-2024 Urea nitrogen/Creatinine [Mass ratio] 19.0 mg/mg - [facility] Basophil percentageOrdered B y: Phu Espinoza on 07-03-2024 Basophils/100 WBC (Bld) 1.0 % 0-1 [facility] Bilirubin, totalOrdered By: Phu Espinoza on 07-03-2024 Bilirubin [Mass/Vol] 0.41 mg/dL 0.00-1.30 [facility] CBC W/Diff, Automatedon Absolute Lymph 2.19 X10 3/uL Normal 0.83-4.51 [facility] Comment on above: Performed By: #### M 100.678 #### [facility] Laboratory [address] [place], [address] Absolute Neut 4.9 X10 3/uL Normal 2.0-7.7 [facility] Comment on above: Performed By: #### M 100.678 #### [facility] Laboratory [address] [place], [address] Basophils/100 WBC (Bld) 1.0 % Normal 0-1 [facility] Comment on above: Performed By: #### M 100.678 #### [facility] Laboratory [address] [place], [address] Eosinophils/100 WBC (Bld) 1.8 % Normal 0-5 [facility] Comment on above: Performed By: #### M 100.678 #### [facility] Laboratory [address] [place], [address] Erythrocyte distribution width (RBC) [Ratio] 15.5 % High 11.6-14.6 [facility] Comment on above: Performed By: #### M 100.678 #### [facility] Laboratory [address] [place], [address] Hematocrit (Bld) [Volume fraction] 35.7 % Low 37-47 [facility] Comment on above: Performed By: #### M 100.678 #### [facility] Laboratory [address] [place], [address] Hemoglobin (Bld) [Mass/Vol] 10.8 g/dL Low 12.0-15.0 [facility] Comment on above: Performed By: #### M 100.678 #### [facility] Laboratory [address] [place], [address] IG% 0.500 Normal 0.0-0.9 [facility] Comment on above: Result Comment: IG% - Immature Granulocytes (promyelocytes, myelocytes and metamyelocytes) > 1% indicates that a LEFT SHIFT is Present. Performed By: #### M 100.678 #### [facility] Laboratory [address] [place], [address] Lymphocytes/100 WBC (Bld) 26.7 % Normal 19-41 [facility] Comment on above: Performed By: #### M 100.678 #### [facility] Laboratory [address] [place], [address] MCH (RBC) [Entitic mass] 24.2 pg Low 27.0-32.0 [facility] Comment on above: Performed By: #### M [id number] #### [facility] Laboratory [address] [place], [address] MCHC (RBC) [Mass/Vol] 30.3 g/dL Low 32-36 [facility] Comment on above: Performed By: #### M 100.678 #### [facility] Laboratory [address] [place], [address] MCV (RBC) [Entitic vol] 80.0 fL Low 81-99 [facility] Comment on above: Performed By: #### M 100.678 #### [facility] Laboratory [address] [place], [address] Monocytes/100 WBC (Bld) 9.9 % Normal 0-10 [facility] Comment on above: Performed By: #### M 100.678 #### [facility] Laboratory [address] [place], [address] Neutrophils/100 WBC (Bld) 60.1 % Normal 47-70 [facility] Comment on above: Performed By: #### M 100.678 #### [facility] Laboratory [address] [place], [address] Nucleated RBC (Bld) [#/Vol] 0 10*3/uL Normal 0-5 [facility] Comment on above: Performed By: #### M 100.678 #### [facility] Laboratory [address] [place], [address] Platelet mean volume (Bld) [Entitic vol] 9.8 fL Normal 6.2-12.0 [facility] Comment on above: Performed By: #### M 100.678 #### [facility] Laboratory [address] [place], [address] Platelets (Bld) [#/Vol] 282 10*3/uL Normal 150-450 [facility] Comment on above: Performed By: #### M 100.678 #### [facility] Laboratory [address] [place], [address] RBC (Bld) [#/Vol] 4.46 10*6/uL Normal 4.2-5.4 [facility] Comment on above: Performed By: #### M 100.678 #### [facility] Laboratory [address] [place], [address] RDW SD 44.4 fl High 35.1-43.9 [facility] Comment on above: Performed By: #### M 100.678 #### [facility] Laboratory [address] [place], [address] WBC (Bld) [#/Vol] 8.2 10*3/uL Normal 4.4-11.0 [facility] Comment on above: Performed By: #### M 100.678 #### [facility] Laboratory [address] [place], [place], [id number] (212 Carbon dioxide, total [Moles /volume] in Central venous bloodOrdered By: Phu Espinoza on 07-03-2024 CO2 [Moles/Vol] 28.2 mmol/L 21.0-32.0 [facility] Chloride assayOrdered By: Sloan Espinoza on 07-03-2024 Chloride [Moles/Vol] 102 mmol/L 98-108 [facility] Comprehensive Metabolic Prof ilon 07-03-2024 Albumin [Mass/Vol] 4.2 g/dL Normal 3.5-5.0 [facility] Comment on above: Performed By: #### M 100.678 #### [facility] Laboratory [address] [place], [address] Albumin/Globulin [Mass ratio] 1.5 {ratio} Normal 0.9-2.4 [facility] Comment on above: Performed By: #### M 100.678 #### [facility] Laboratory [address] [place], [address] ALK PHOS 50 U/L Normal 35-104 [facility] Comment on above: Performed By: #### M 100.678 #### [facility] Laboratory [address] [place], [address] ALT [Catalytic activity/Vol] 62 U/L High <=34 [facility] Comment on above: Performed By: #### M 100.678 #### [facility] Laboratory [address] [place], [address] AST [Catalytic activity/Vol] 67 U/L High <=31 [facility] Comment on above: Performed By: #### M 100.678 #### [facility] Laboratory [address] [place], [address] Bilirubin [Mass/Vol] 0.41 mg/dL Normal 0.00-1.30 [facility] Comment on above: Performed By: #### M 100.678 #### [facility] Laboratory [address] [place], [address] BUN/CRE 19.0 RATIO Normal 10-20 [facility] Comment on above: Performed By: #### M 100.678 #### [facility] Laboratory [address] [place], [address] Calcium [Mass/Vol] 9.4 mg/dL Normal 7.6-11.0 [facility] Comment on above: Performed By: #### M 100.678 #### [facility] Laboratory [address] [place], [address] Chloride [Moles/Vol] 102 mmol/L Normal 98-108 [facility] Comment on above: Performed By: #### M 100.678 #### [facility] Laboratory [address] [place], [address] CO2 [Moles/Vol] 28.2 mmol/L Normal 21.0-32.0 [facility] Comment on above: Performed By: #### M 100.678 #### [facility] Laboratory [address] [place], [address] Creatinine [Mass/Vol] 1.00 mg/dL Normal 0.70-1.20 [facility] Comment on above: Performed By: #### M 100.678 #### [facility] Laboratory [address] [place], [address] GAP 12 Normal 5-15 [facility] Comment on above: Performed By: #### M 100.678 #### [facility] Laboratory [address] [place], [address] GFR/1.73 sq M.predicted among non-blacks MDRD (S/P/Bld) [Vol rate/Area] 67 mL/min/{1.73_m2} Normal >60 [place] Comment on above: Result Comment: mL/m in/1.73m2 CKD-EPI Creatinine Equation (2020) Performed By: #### M 100.678 #### [facility] Laboratory [address] [place], [address] Globulin (S) [Mass/Vol] 2.8 g/dL Normal 2.2-4.2 [facility] Comment on above: Performed By: #### M 100.678 #### [facility] Laboratory [address] [place], [address] Glucose [Mass/Vol] 133 mg/dL High 70-99 [facility] Comment on above: Performed By: #### M 100.678 #### [facility] Laboratory [address] [place], [address] Potassium [Moles/Vol] 4.3 mmol/L Normal 3.3-5.1 [facility] Comment on above: Performed By: #### M 100.678 #### [facility] Laboratory [address] [place], [address] Sodium [Moles/Vol] 142 mmol/L Normal 133-145 [facility] Comment on above: Performed By: #### M 100.678 #### [facility] Laboratory [address] [place], [place], [id number] T PROT 7.0 g/dL Normal 5.9-8.4 [facility] Comment on above: Performed By: #### M 100.678 #### [facility] Laboratory [address] [place], [place], [address] Urea nitrogen [Mass/Vol] 19 mg/dL Normal 4-19 [facility] Comment on above: Performed By: #### M 100.678 #### [facility] Laboratory [address] [place], [place], [address] Eosinophil percentageOrdered By: Phu Espinoza on 07-03-2024 Eosinophils/100 WBC (Bld) 1.8 % 0-5 [facility] Erythrocyte distribution wid th (RBC) [Ratio]Ordered By: Phu Espinoza on 07-03-2024 Erythrocyte distribution width (RBC) [Entitic vol] 44.4 fL High 35.1-43.9 [facility] Erythrocyte distribution wid th ratioOrdered By: Phu Espinoza 07-03-2024 Erythrocyte distribution width (RBC) [Ratio] 15.5 % High 11.6-14.6 [facility] GFR/1.73 sq M.predicted sanchez g non-blacks MDRD (S/P/Bld) [Vol rate/Area]Ordered By: Phu Espinoza 07-03-2024 Estimated GFR (MDRD) Non-Af Amer 67 >60 [facility] Comment on above: mL/min/1.73m2 CKD-EP I Creatinine Equation (2020) Hematocrit Auto (Bld) [Volum e fraction]Ordered By: Phu Espinoza 07-03-2024 Hematocrit (Bld) [Volume fraction] 35.7 % Low 37-47 [facility] Hemoglobin measurementOrdere d By: Phu Espinoza 07-03-2024 Hemoglobin (Bld) [Mass/Vol] 10.8 g/dL Low 12.0-15.0 [facility] Immature granulocytes/100 WB C Auto (Bld)Ordered By: Phu Espinoza on 07-03-2024 Immature granulocytes/100 WBC (Bld) 0.500 % 0.0-0.9 [facility] Comment on above: IG% - Immature Granu locytes (promyelocytes, myelocytes and metamyelocytes) > 1% indicates that a LEFT SHIFT is Present. Laboratory - Chemistry and C hemistry - challengeOrdered By: Phu Espinoza on 07-03-2024 AST [Catalytic activity/Vol] 67 U/L High <32 [facility] Lymphocytes Auto (Unsp spec) [#/Vol]Ordered By: Phu Espinoza on 07-03-2024 Lymphocytes (Bld) [#/Vol] 2.19 10*3/uL 0.83-4.5 1 [facility] Lymphocytes/100 WBC Auto (Un sp spec)Ordered By: Phu Espinoza on 07-03-2024 Lymphocytes/100 WBC (Bld) 26.7 % 19-41 [facility] MCV (mean corpuscular volume ) determinationOrdered By: Phu Espinoza on 07-03-2024 MCV (RBC) [Entitic vol] 80.0 fL Low 81-99 [facility] Mean corpuscular hemoglobin (MCH) determinationOrdered By: Phu Espinoza on 07-03-2024 MCH (RBC) [Entitic mass] 24.2 pg Low 27.0-32.0 [facility] Mean corpuscular hemoglobin concentration (MCHC) determinationOrdered By: Phu Espinoza on 07-03-2024 MCHC (RBC) [Mass/Vol] 30.3 g/dL Low 32-36 [facility] Mean platelet volume determi nationOrdered By: Phu Espinoza on 07-03-2024 Platelet mean volume (Bld) [Entitic vol] 9.8 fL 6.2-12.0 [facility] Monocyte percentageOrdered B y: Phu Espinoza on 07-03-2024 Monocytes/100 WBC (Bld) 9.9 % 0-10 [facility] Neutrophil percentageOrdered By: Phu Espinoza on 07-03-2024 Neutrophils/100 WBC (Bld) 60.1 % 47-70 [facility] Nucleated red blood cell per centageOrdered By: Phu Espinoza on 07-03-2024 Nucleated RBC/100 WBC (Bld) [Ratio] 0 % 0-5 [facility] Platelet countOrdered By: Sloan Espinoza on 07-03-2024 Platelets (Bld) [#/Vol] 282 10*3/uL 150-450 [facility] Potassium (Unsp spec) [Mass/ Vol]Ordered By: Phu Espinoza on 07-03-2024 Potassium [Moles/Vol] 4.3 mmol/L 3.3-5.1 [facility] RBC Auto (Bld) [#/Vol]Ordere d By: Phu Espinoza on 07-03-2024 RBC (Bld) [#/Vol] 4.46 10*6/uL 4.2-5.4 [facility] Serum creatinine measurement (mass/volume)Ordered By: Phu Espinoza on 07-03-2024 Creatinine [Mass/Vol] 1.00 mg/dL 0.70-1.20 [facility] Serum globulin measurementOr dered By: Phu Espinoza 07-03-2024 Globulin (S) [Mass/Vol] 2.8 g/dL 2.2-4.2 [facility] Serum glucose measurement (m ass/volume)Ordered By: Phu Espinoza on 07-03-2024 Glucose [Mass/Vol] 133 mg/dL High 70-99 [facility] Serum or plasma alanine tobar otransferase (ALT) measurementOrdered By: Phu Espinoza 07-03-2024 ALT [Catalytic activity/Vol] 62 U/L High <35 [facility] Serum or plasma albumin thiago urement (mass/volume)Ordered By: Phu Espinoza 07-03-2024 Albumin [Mass/Vol] 4.2 g/dL 3.5-5.0 [facility] Serum or plasma albumin/glob ulin mass ratioOrdered By: Phu Espinoza 07-03-2024 Albumin/Globulin [Mass ratio] 1.5 {ratio} 0.9-2.4 [facility] Serum or plasma alkaline meg sphatase measurementOrdered By: Phu Espinoza 07-03-2024 ALP [Catalytic activity/Vol] 50 U/L 35-104 [facility] Serum or plasma calcium thiago urement (mass/volume)Ordered By: Phu Espinoza 07-03-2024 Calcium [Mass/Vol] 9.4 mg/dL 7.6-11.0 [facility] Serum or plasma urea nitroge n measurement (mass/volume)Ordered By: Phu Espinoza on 07-03-2024 Urea nitrogen [Mass/Vol] 19 mg/dL 4-19 [facility] Sodium levelOrdered By: Phu Espinoza on 07-03-2024 Sodium [Moles/Vol] 142 mmol/L 133-145 [facility] TSH DL <= 0.005 mIU/L QnOrde red By: Phu Espinoza on 07-03-2024 Thyroid Stimulating Hormone (TSH) 0.593 uIU/mL 0.300-4.200 [facility] Thyroid Stim Hormone (TSH)on 07-03-2024 TSH 0.593 uIU/mL Normal 0.300-4.200 [facility] Comment on above: Performed By: #### M 100.678 #### [facility] Laboratory [facility] [place], [address] Total proteinOrdered By: Phu Espinoza on 07-03-2024 Protein [Mass/Vol] 7.0 g/dL 5.9-8.4 [facility] White blood cell (WBC) count Ordered By: Phu Espinoza on 07-03-2024 WBC (Bld) [#/Vol] 8.2 10*3/uL 4.4-11.0 [facility] Direct serum free thyroxine (FT4) measurementOrdered By: Massiel Gibbons on 05-02-2024 Free T4 [Mass/Vol] 1.05 ng/dL 0.76-1.46 [facility] Endocrinology Visit Reporton 05-02-2024 Endocrinology Visit Report [facility] [address] [facility] [place], [place] [address] OFFICE VISIT Date of Service: 05/02/24 MR#: [id number] Acct: [id number] Name: ARLEN NGUYEN Hattie Rep #: [id number] : 1970 Provider: ADELITA martin Age/Sex: 54/F Location: [facility] Status: Signed Intake Vital Signs 01/31/24 11:40 [...] acute concerns (more content not included)... Normal [facility] Laboratory - Hematology and Cell countsOrdered By: Massiel Gibbons on 05-02-2024 HbA1c (Bld) [Mass fraction] 6.7 % High 4.2-6.3 [facility] T4 Free Directon 05-02-2024 T4 FREE DIRECT 1.05 ng/dL Normal 0.76-1.46 [facility] Comment on above: Performed By: #### M 100.678 #### [facility] Laboratory [address] [place], [address] TSH QnOrdered By: Massiel martin on 05-02-2024 Thyroid Stimulating Hormone (TSH) 2.130 uIU/mL 0.358-3.740 [facility] Thyroid Stim Hormone (TSH)on 05-02-2024 TSH 2.130 uIU/mL Normal 0.358-3.740 [facility] Comment on above: Performed By: #### M 100.678 #### [facility] Laboratory [address] [place], [address] Abdomen without IV Contrasto n 04-19-2024 Abdomen without IV Contrast [facility] Services [address] [place] [address] Abdomen without IV Contrast MR#: [id number] Acct: [id number] Name: ARLEN NGUYEN Rep #: [id number] : 1970 F 54 From: Roverto Andujar PCP: Dr. Phu Espinoza MD Status: REG CLI Study: Abdomen without IV Contrast Date of Exam: 03/28 07/19 Exam# [id number] Ordering Dr: Jodi Agee MD -[id number] STUDY: CT Abdomen W/O Contrast Injection [...] Electronically Signed: Roverto Beebe MD at 16:01 [facility] Reading Location ID and State: [facility] / [place] , Service support , CC: Dr. Phu Espinoza MD; Dr. Jodi Agee MD Fitness Technician: Signed Normal [facility] Surgery Visit Reporton 03-22 Surgery Visit Report [facility] [address] [place] [address] OFFICE VISIT Date of Service: 03/22/24 MR#: [id number] Acct: [id number] Name: ARLEN NGUYEN Hattie Rep #: [id number] : 1970 Provider: Dr. Jodi back MD Age/Sex: 53/F Location: [facility] Status: Signed Intake Vital Signs 01/31/24 11:40 [...] atrial fi (more content not included)... Normal [facility] Chest PA and Lateralon 03-04 Chest PA and Lateral [facility] Imaging Services [address] [place] [address] Chest PA and Lateral MR#: [id number] Acct: [id number] Name: ARLEN NGUYEN Rep #: [id number] : 1970 F 53 From: Eduard Andujar PCP: Dr. Phu Espinoza MD Status: REG [facility] Study: Chest PA and Lateral Date of Exam: 03/04/24 Exam# [id number] Ordering Dr: Phu Espinoza MD -[id number] INDICATION: WHEEZING EXAMINATION/TECHNIQ UE: X-RAY - [...] EST , CC: Dr. Phu Espinoza MD Fitness Technician: Signed [facility] M100.678on 03-04-2024 M100.678 Pending SARS-CoV-2 (COVID 19) Negative INFLUENZA A Negative INFLUENZA B Negative RSV PCR Negative Normal [facility] Comment on above: Performed By: #### M 100.678 #### [facility] Laboratory [address] [place], [address] T4 Free Directon 02-16-2024 T4 FREE DIRECT 1.01 ng/dL Normal 0.76-1.46 [facility] Comment on above: Performed By: #### L 506.0400, L590.9520 #### [facility] Laboratory [address] [place], [place], [address] Thyroid Stim Hormone (TSH)on 02-16-2024 TSH 2.020 uIU/mL Normal 0.358-3.740 [facility] Comment on above: Performed By: #### L 506.0400, L521.9520 #### [facility] Laboratory [address] [place], [address] Endocrinology Visit Reporton 01-31-2024 Endocrinology Visit Report [facility] [address] [facility] [place], [place] [address] OFFICE VISIT Date of Service: 01/31/24 MR#: [id number] Acct: [id number] Name: ARLEN NGUYEN Hattie Rep #: [id number] : 1970 Provider: ADELITA martin Age/Sex: 53/F Location: [facility] Status: Signed Intake Vital Signs 11/01/23 11:43 [...] 5.7. Levothyroxine (more content not included)... Normal [facility] SCRN MAMM (CAD)W/PRESTON Larry n 01-24-2024 SCRN MAMM (CAD)W/PRESTON LUONG [facility] Imaging Services [address] [place] [address] SCRN MAMM (CAD)W/PRESTON BILAT MR#: [id number] Acct: [id number] Name: ARLEN NGUYEN Rep #: [id number] : 1970 F 53 From: Michel thurman MD PCP: Dr. Phu Espinoza MD Status: REG CLI Study: SCRN MAMM (CAD)W/PRESTON BILAT Date of Exam: 12/27 Exam# [id number] Ordering Dr: Phu Espinoza MD -[id number] MAMMOGRAPHY - BILATERAL SCREENING REASON FOR [...] delay biopsy of a clinically suspicious abnormality. [id number] Electronically Signed: Michel Alfred MD at 9:52 EDT , CC: Dr. Phu Espinoza MD Fitness Technician: Signed Normal [facility] CBC W/Diff, Automatedon 12-25 Absolute Lymph 2.48 X10 3/uL Normal 0.83-4.51 [facility] Comment on above: Performed By: #### L 501.9520, L500.4050, L100.0100 #### [facility] Laboratory [address] [place], [address] Absolute Neut 4.4 X10 3/uL Normal 2.0-7.7 [facility] Comment on above: Performed By: #### L 501.9520, L500.4050, L100.0100 #### [facility] Laboratory [address] [place], [address] Basophils/100 WBC (Bld) 0.6 % Normal 0-1 [facility] Comment on above: Performed By: #### L 501.9520, L500.4050, L100.0100 #### [facility] Laboratory [address] [place], [address] Eosinophils/100 WBC (Bld) 2.4 % Normal 0-5 [facility] Comment on above: Performed By: #### L 501.9520, L500.4050, L100.0100 #### [facility] Laboratory [address] [place], [address] Erythrocyte distribution width (RBC) [Ratio] 14.0 % Normal 11.6-14.6 [facility] Comment on above: Performed By: #### L 501.9520, L500.4050, L100.0100 #### [facility] Laboratory [address] [place], [address] Hematocrit (Bld) [Volume fraction] 35.6 % Low 37-47 [facility] Comment on above: Performed By: #### L 501.9520, L500.4050, L100.0100 #### [facility] Laboratory [address] [place], [address] Hemoglobin (Bld) [Mass/Vol] 11.0 g/dL Low 12.0-15.0 [facility] Comment on above: Performed By: #### L 501.9520, L500.4050, L100.0100 #### [facility] Laboratory [address] [place], [address] IG% 0.400 Normal 0.0-0.9 [facility] Comment on above: Result Comment: IG% - Immature Granulocytes (promyelocytes, myelocytes and metamyelocytes) > 1% indicates that a LEFT SHIFT is Present. Performed By: #### L 501.9520, L500.4050, L100.0100 #### [facility] Laboratory [address] [place], [address] Lymphocytes/100 WBC (Bld) 31.8 % Normal 19-41 [facility] Comment on above: Performed By: #### L 501.9520, L500.4050, L100.0100 #### [facility] Laboratory [address] [place], [address] MCH (RBC) [Entitic mass] 25.3 pg Low 27.0-32.0 [facility] Comment on above: Performed By: #### L 501.9520, L500.4050, L100.0100 #### [facility] Laboratory [address] [place], [address] MCHC (RBC) [Mass/Vol] 30.9 g/dL Low 32-36 [facility] Comment on above: Performed By: #### L 501.9520, L500.4050, L100.0100 #### [facility] Laboratory [address] [place], [address] MCV (RBC) [Entitic vol] 82.0 fL Normal 81-99 [facility] Comment on above: Performed By: #### L 501.9520, L500.4050, L100.0100 #### [facility] Laboratory [address], [address] Monocytes/100 WBC (Bld) 8.8 % Normal 0-10 [facility] Comment on above: Performed By: #### L 501.9520, L500.4050, L100.0100 #### [facility] Laboratory [address] [place], [address] Neutrophils/100 WBC (Bld) 56.0 % Normal 47-70 [facility] Comment on above: Performed By: #### L 501.9520, L500.4050, L100.0100 #### [facility] Laboratory [address] [place], [address] Nucleated RBC (Bld) [#/Vol] 0 10*3/uL Normal 0-5 [facility] Comment on above: Performed By: #### L 501.9520, L500.4050, L100.0100 #### [facility] Laboratory [address], [address] Platelet mean volume (Bld) [Entitic vol] 9.9 fL Normal 6.2-12.0 [facility] Comment on above: Performed By: #### L 501.9520, L500.4050, L100.0100 #### [facility] Laboratory [address] [place], [address] Platelets (Bld) [#/Vol] 256 10*3/uL Normal 150-450 [facility] Comment on above: Performed By: #### L 501.9520, L500.4050, L100.0100 #### [facility] Laboratory [address] [place], [address] RBC (Bld) [#/Vol] 4.34 10*6/uL Normal 4.2-5.4 [facility] Comment on above: Performed By: #### L 501.9520, L500.4050, L100.0100 #### [facility] Laboratory [address] [place], [address] RDW SD 41.4 fl Normal 35.1-43.9 [facility] Comment on above: Performed By: #### L 501.9520, L500.4050, L100.0100 #### [facility] Laboratory [address] [place], [address] WBC (Bld) [#/Vol] 7.8 10*3/uL Normal 4.4-11.0 [facility] Comment on above: Performed By: #### L 501.9520, L500.4050, L100.0100 #### [facility] Laboratory [address] [place], [address] Comprehensive [facility] 01-10-2024 Albumin [Mass/Vol] 3.6 g/dL Normal 3.2-5.0 [facility] Comment on above: Performed By: #### L 501.9520, L500.4050, L100.0100 #### [facility] Laboratory [address] [place], [address] Albumin/Globulin [Mass ratio] 0.9 {ratio} Normal 0.9-2.4 [facility] Comment on above: Performed By: #### L 501.9520, L500.4050, L100.0100 #### [facility] Laboratory [address] [place], [address] ALK P 66 U/L Normal 45-117 [facility] Comment on above: Performed By: #### L 501.9520, L500.4050, L100.0100 #### [facility] Laboratory [address] [place], [address] ALT [Catalytic activity/Vol] 81 U/L High 13-56 [facility] Comment on above: Performed By: #### L 501.9520, L500.4050, L100.0100 #### [facility] Laboratory [address] [place], [address] AST [Catalytic activity/Vol] 53 U/L High 15-37 [facility] Comment on above: Performed By: #### L 501.9520, L500.4050, L100.0100 #### [facility] Laboratory [address] [place], [address] Bilirubin [Mass/Vol] 0.40 mg/dL Normal 0.20-1.00 [facility] Comment on above: Result Comment: For patients on eltrombopag therapy, use of Dimension Mcrae TBIL is not recommended. Performed By: #### L 501.9520, L500.4050, L100.0100 #### [facility] Laboratory [address] [place], [address] BUN/CRE 21.7 RATIO High 10-20 [facility] Comment on above: Performed By: #### L 501.9520, L500.4050, L100.0100 #### [facility] Laboratory [address] [place], [address] CA,Total 9.2 mg/dL Normal 8.5-10.1 [facility] Comment on above: Performed By: #### L 501.9520, L500.4050, L100.0100 #### [facility] Laboratory [address] [place], [address] Chloride [Moles/Vol] 106 mmol/L Normal 98-107 [facility] Comment on above: Performed By: #### L 501.9520, L500.4050, L100.0100 #### [facility] Laboratory [address] [place], [address] CO2 [Moles/Vol] 28.0 mmol/L Normal 21.0-32.0 [facility] Comment on above: Performed By: #### L 501.9520, L500.4050, L100.0100 #### [facility] Laboratory [address] [place], [address] Creatinine [Mass/Vol] 0.97 mg/dL Normal 0.55-1.02 [facility] Comment on above: Result Comment: The validity of the calculated GFR GFRAA in patients over 70 years has not been determined. Clinical correlation is essential. Performed By: #### L 501.9520, L500.4050, L100.0100 #### [facility] Laboratory [address] [place], [address] EST GFR - AA 77 mL/min Normal >60 [facility] Comment on above: Result Comment: Afri can [place] GFR Calc Performed By: #### L 501.9520, L500.4050, L100.0100 #### [facility] Laboratory [address] [place], [address] GAP 7 Normal 5-15 [facility] Comment on above: Performed By: #### L 501.9520, L500.4050, L100.0100 #### [facility] Laboratory [address] [place], [address] GFR/1.73 sq M.predicted among non-blacks MDRD (S/P/Bld) [Vol rate/Area] 64 mL/min/{1.73_m2} Normal >60 [place] Comment on above: Result Comment: Non- GFR Calc Performed By: #### L 501.9520, L500.4050, L100.0100 #### [facility] Laboratory [address] [place], [address] Globulin (S) [Mass/Vol] 4.0 g/dL Normal 2.2-4.2 [facility] Comment on above: Performed By: #### L 501.9520, L500.4050, L100.0100 #### [facility] Laboratory [address] [place], [address] Glucose [Mass/Vol] 162 mg/dL High 74-106 [facility] Comment on above: Result Comment: Fast ing Glucose result greater than or equal to 126 mg/dL suggests DIABETES MELLITUS per A.D.A. criteria. Performed By: #### L 501.9520, L500.4050, L100.0100 #### [facility] Laboratory [address] [place], [address] Potassium [Moles/Vol] 4.2 mmol/L Normal 3.5-5.1 [facility] Comment on above: Performed By: #### L 501.9520, L500.4050, L100.0100 #### [facility] Laboratory [address] [place], [address] Sodium [Moles/Vol] 141 mmol/L Normal 136-145 [facility] Comment on above: Performed By: #### L 501.9520, L500.4050, L100.0100 #### [facility] Laboratory [address] [place], [address] T PROT 7.6 g/dL Normal 6.4-8.2 [facility] Comment on above: Performed By: #### L 501.9520, L500.4050, L100.0100 #### [facility] Laboratory [address] [place], [address] Urea nitrogen [Mass/Vol] 21 mg/dL High 7-18 [facility] Comment on above: Performed By: #### L 501.9520, L500.4050, L100.0100 #### [facility] Laboratory [address] [place], [address] Thyroid Stim Hormone (TSH)on 01-10-2024 TSH 5.760 uIU/mL High 0.358-3.740 [facility] Comment on above: Performed By: #### L 501.9520, L500.4050, L100.0100 #### [facility] Laboratory [address] [place], [address] Endocrinology Visit Reporton 11-01-2023 Endocrinology Visit Report [facility] [address] [place], [place] [address] OFFICE VISIT Date of Service: 11/01/23 MR#: [id number] Acct: [id number] Name: ARLEN NGUYEN Rep #: [id number] : 1970 Provider: ADELITA martin Age/Sex: 53/F Location: [facility] Status: Signed Intake Vital Signs 08/03/23 10:59 [...] 3 M FU Chief Complaint: f/u diabetes Organ Installer Required: No Accompanied by: Self Is patient [...] 7.0%. Currently using T-slim insulin pump with [employer] G6 CGM- she is pleased with system; however, supplies are costly. Plan moving forward is to switch to [employer] 780g as she can get supplies at more affordable das. Additionally she is taking metformin 1 gm BID with food. She was previously on SGLT-2; however, it was unaffordable. BP today 132/84, improved from 08/03/23 at 1 (more content not included)... Normal [facility] Endocrinology Visit Reporton 08-03-2023 Endocrinology Visit Report [facility] [address] [facility] [address] [place] [address] OFFICE VISIT Date of Service: 08/03/23 MR#: [id number] Acct: [id number] Name: ARLEN NGUYEN Rep #: [id number] : 1970 Provider: ADELITA martin Age/Sex: 53/F Location: [facility] Status: Signed Intake Vital Signs 03/02/23 11:10 [...] 5 M FU Chief Complaint: f/u diabetes Organ Installer Required: No Is patient in pain?: No [...] DAILY 02/03/21 [History Confirmed 08/03/23] blood-glucose transmitter ([employer] G6 Transmitter device) #1 ea 01/12/23 [Rx [...] reporting c (more content not included)... Normal [facility] Culture, urineOrdered By: Sloan Espinoza on 04-03-2023 Bacteria identified Cx Nom (U) Mixed Gram Pos & Gram Neg Org [facility] Bacteria identified Cx Nom (U) Mixed Gram Pos & Gram Neg Org [facility] Glucose Glucometer (BldC) [M ass/Vol]Ordered By: Jodi Agee on 03-13-2023 Glucose [Mass/Vol] 186 mg/dL 74-106 [facility] Comment on above: MANAGEMENT OF PATIEN T CARE PER NURSING PROTOCOL Absolute lymphocyte countOrd ered By: Massiel Gibbons on 03-02-2023 Lymphocytes Auto (Unsp spec) [#/Vol] 2.72 10*3/uL 0.83-4.51 [facility] Basophil percentageOrdered B y: Massiel Gibbons on 03-02-2023 Basophils/100 WBC (Bld) 0.4 % 0-1 [facility] Cholesterol [Mass/Vol] 148 mg/dL <200 [place] Comment on above: <200 mg/dL Desirable 200-240 mg/dL Borderline >240 mg/dL High Risk Eosinophils/100 WBC (Bld) 1.7 % 0-5 [facility] Neutrophils (Bld) [#/Vol] 3.6 10*3/uL 2.0-7.7 [facility] Neutrophils/100 WBC (Bld) 50.4 % 47-70 [facility] Triglyceride [Mass/Vol] 136 mg/dL <199 [facility] Comment on above: The drugs N-Acetylcy steine and Metamizole may falsely depress this assay.Serum Triglycerides Reference Interval Normal <150 mg/dL Borderline high 150 - 199 mg/dL High 200 - 499 mg/dL Very High > or = 500 mg/dL WBC (Bld) [#/Vol] 7.1 10*3/uL 4.4-11.0 [facility] Blood erythrocytes count (nu mber/volume)Ordered By: Massiel Gibbons on 03-02-2023 RBC (Bld) [#/Vol] 4.22 10*6/uL 4.2-5.4 [facility] Blood hemoglobin measurement (mass/volume)Ordered By: Massiel Gibbons on 03-02-2023 Hemoglobin (Bld) [Mass/Vol] 11.0 g/dL 12.0-15.0 [facility] Blood lymphocytes/100 leukoc ytesOrdered By: Massiel Gibbons on 03-02-2023 Lymphocytes/100 WBC (Bld) 38.5 % 19-41 [facility] Blood monocytes/100 leukocyt esOrdered By: Massiel Gibbons on 03-02-2023 Monocytes/100 WBC (Bld) 8.6 % 0-10 [facility] Blood platelet mean volumeOr dered By: Massiel Gibbons on 03-02-2023 Platelet mean volume (Bld) [Entitic vol] 9.8 fL 6.2-12.0 [facility] Determination of erythrocyte mean corpuscular volume (MCV)Ordered By: Massiel Gibbons on 03-02-2023 MCV (RBC) [Entitic vol] 83.2 fL 81-99 [facility] Hematocrit Auto (Bld) [Volum e fraction]Ordered By: Massiel Gibbons on 03-02-2023 Hematocrit (Bld) [Volume fraction] 35.1 % 37-47 [facility] Laboratory - Chemistry and C hemistry - challengeOrdered By: Massiel Gibbons on 03-02-2023 Free T4 [Mass/Vol] 0.83 ng/dL 0.76-1.46 [facility] Laboratory - Hematology and Cell countsOrdered By: Massiel Gibbnos on 03-02-2023 Erythrocyte distribution width (RBC) [Entitic vol] 41.3 fL 35.1-43.9 [facility] Erythrocyte distribution width (RBC) [Ratio] 13.7 % 11.6-14.6 [facility] Immature granulocytes/100 WBC (Bld) 0.400 % 0.0-0.9 [facility] Comment on above: IG% - Immature Granu locytes (promyelocytes, myelocytes and metamyelocytes) > 1% indicates that a LEFT SHIFT is Present. MCH (RBC) [Entitic mass] 26.1 pg 27.0-32.0 [facility] Nucleated RBC/100 WBC (Bld) [Ratio] 0 % 0-5 [facility] Laboratory - Hematology and Cell countson 03-02-2023 HbA1c (Bld) [Mass fraction] 7.3 % 4.2-6.3 [facility] MCHC Auto (RBC) [Mass/Vol]Or dered By: Massiel Gibbons on 03-02-2023 MCHC (RBC) [Mass/Vol] 31.3 g/dL 32-36 [facility] No Panel InformationOrdered By: Massiel Gibbons on 03-02-2023 Thyroid Stimulating Hormone (TSH) 2.85 uIU/mL 0.358-3.74 [facility] Platelets bldOrdered By: Griselda Gibbons on 03-02-2023 Platelets (Bld) [#/Vol] 284 10*3/uL 150-450 [facility] Serum or plasma cholesterol in HDL measurement (mass/volume)Ordered By: Massiel Gibbons on 03-02-2023 Cholesterol in HDL [Mass/Vol] 46 mg/dL >40 [facility] Comment on above: The drugs N-Acetylcy steine and Metamizole may falsely depress this assay. Reference Range HDL <40 mg/dL Low HDL Cholesterol HDL >or= 60 mg/dL High HDL Cholesterol Serum or plasma cholesterol in VLDL measurement (mass/volume)Ordered By: Massiel Gibbons on 03-02-2023 Cholesterol in VLDL [Mass/Vol] 27 mg/dL 5-40 [facility] Serum or plasma ferritin lizette surement (mass/volume)Ordered By: Massiel Gibbons on 03-02-2023 Ferritin [Mass/Vol] 23 ng/mL 8-252 [facility] Serum or plasma low density lipoprotein (LDL) cholesterol measurement (mass/volume)Ordered By: Massiel Gibbons on 03-02-2023 Cholesterol in LDL [Mass/Vol] 75 mg/dL 0-130 [facility] Blood hemoglobin measurement (mass/volume)Ordered By: Phu Espinoza on 02-08-2023 Hemoglobin (Bld) [Mass/Vol] 10.8 g/dL 12.0-15.0 [facility] Hematocrit Auto (Bld) [Volum e fraction]Ordered By: Phu Espinoza on 02-08-2023 Hematocrit (Bld) [Volume fraction] 33.9 % 37-47 [facility] Stool gastrointestinal hemog lobin detection by immunologic methodOrdered By: Phu Espinoza on 01-11-2023 Lower GI hemoglobin IA Ql (Stl) [facility] Lower GI hemoglobin IA Ql (Stl) [facility] Absolute lymphocyte countOrd ered By: Phu Espinoza on 01-09-2023 Lymphocytes Auto (Unsp spec) [#/Vol] 2.49 10*3/uL 0.83-4.51 [facility] Basophil percentageOrdered B y: Phu Espinoza on 01-09-2023 Basophils/100 WBC (Bld) 0.5 % 0-1 [facility] Eosinophils/100 WBC (Bld) 2.2 % 0-5 [facility] Neutrophils (Bld) [#/Vol] 4.3 10*3/uL 2.0-7.7 [facility] Neutrophils/100 WBC (Bld) 55.4 % 47-70 [facility] WBC (Bld) [#/Vol] 7.7 10*3/uL 4.4-11.0 [facility] Blood erythrocytes count (nu mber/volume)Ordered By: Phu Espinoza on 01-09-2023 RBC (Bld) [#/Vol] 4.35 10*6/uL 4.2-5.4 [facility] Blood hemoglobin measurement (mass/volume)Ordered By: Phu Espinoza on 01-09-2023 Hemoglobin (Bld) [Mass/Vol] 11.4 g/dL 12.0-15.0 [facility] Blood lymphocytes/100 leukoc ytesOrdered By: Phu Espinoza on 01-09-2023 Lymphocytes/100 WBC (Bld) 32.5 % 19-41 [facility] Blood monocytes/100 leukocyt esOrdered By: Phu Espinoza on 01-09-2023 Monocytes/100 WBC (Bld) 8.9 % 0-10 [facility] Blood platelet mean volumeOr dered By: Phu Espinoza on 01-09-2023 Platelet mean volume (Bld) [Entitic vol] 10.3 fL 6.2-12.0 [facility] Determination of erythrocyte mean corpuscular volume (MCV)Ordered By: Phu Espinoza on 01-09-2023 MCV (RBC) [Entitic vol] 85.5 fL 81-99 [facility] Hematocrit Auto (Bld) [Volum e fraction]Ordered By: Phu Espinoza on 01-09-2023 Hematocrit (Bld) [Volume fraction] 37.2 % 37-47 [facility] Hemoglobin in reticulocytes (mass per reticulocyte)Ordered By: Phu Espinoza on 01-09-2023 Hemoglobin (Reticulocytes) [Entitic mass] 29.3 pg 30-35 [facility] Iron measurement (mass/mass) Ordered By: Phu Espinoza on 01-09-2023 Iron (Unsp spec) [Mass/Mass] 44 ug/dL 50-170 [facility] Laboratory - Chemistry and C hemistry - challengeOrdered By: Phu Espinoza on 01-09-2023 Cobalamin (Vitamin B12) [Mass/Vol] 293 pg/mL 211-911 [facility] Laboratory - Hematology and Cell countsOrdered By: Phu Espinoza on 01-09-2023 Erythrocyte distribution width (RBC) [Entitic vol] 41.7 fL 35.1-43.9 [facility] Erythrocyte distribution width (RBC) [Ratio] 13.3 % 11.6-14.6 [facility] Immature granulocytes/100 WBC (Bld) 0.500 % 0.0-0.9 [facility] Comment on above: IG% - Immature Granu locytes (promyelocytes, myelocytes and metamyelocytes) > 1% indicates that a LEFT SHIFT is Present. MCH (RBC) [Entitic mass] 26.2 pg 27.0-32.0 [facility] Nucleated RBC/100 WBC (Bld) [Ratio] 0 % 0-5 [facility] MCHC Auto (RBC) [Mass/Vol]Or dered By: Phu Espinoza on 01-09-2023 MCHC (RBC) [Mass/Vol] 30.6 g/dL 32-36 [facility] No Panel InformationOrdered By: Phu Espinoza 01-09-2023 Immature Reticulocyte Fraction 27.90 % 3.00-15.90 [facility] Reticulocyte Count 2.36 % 0.5-1.5 [facility] Total Iron Binding Capacity 482 ug/dL 250-450 [facility] Platelets bldOrdered By: Phu Espinoza on 01-09-2023 Platelets (Bld) [#/Vol] 271 10*3/uL 150-450 [facility] Serum or plasma ferritin lizette surement (mass/volume)Ordered By: Phu Snowok on 01-09-2023 Ferritin [Mass/Vol] 18 ng/mL 8-252 [facility] Serum or plasma folate measu rement (mass/volume)Ordered By: Phu Espinoza on 01-09-2023 Folate [Mass/Vol] 13.00 ng/mL 3.1-55.4 [facility] Serum or plasma iron saturat ion measurement (mass fraction)Ordered By: Phu Espinoza on 01-09-2023 Iron saturation [Mass fraction] 9.1 % 15.0-55.0 [facility] Absolute lymphocyte countOrd ered By: Phu Alexis on 01-03-2023 Lymphocytes Auto (Unsp spec) [#/Vol] 2.77 10*3/uL 0.83-4.51 [facility] Basophil percentageOrdered B y: Phu Snowok on 01-03-2023 Basophils/100 WBC (Bld) 0.5 % 0-1 [facility] Bilirubin [Mass/Vol] 0.30 mg/dL 0.20-1.00 [facility] Comment on above: For patients on eltr ombopag therapy, use of Dimension Mcrae TBIL is not recommended. Chloride [Moles/Vol] 105 mmol/L 98-107 [facility] Eosinophils/100 WBC (Bld) 1.4 % 0-5 [facility] Glucose [Mass/Vol] 137 mg/dL 74-106 [facility] Comment on above: Fasting Glucose resu lt greater than or equal to 126 mg/dL suggests DIABETES MELLITUS per A.D.A. criteria. Neutrophils (Bld) [#/Vol] 4.1 10*3/uL 2.0-7.7 [facility] Neutrophils/100 WBC (Bld) 53.4 % 47-70 [facility] Potassium [Moles/Vol] 4.3 mmol/L 3.5-5.1 [facility] Protein [Mass/Vol] 7.5 g/dL 6.4-8.2 [facility] Sodium [Moles/Vol] 140 mmol/L 136-145 [facility] WBC (Bld) [#/Vol] 7.7 10*3/uL 4.4-11.0 [facility] Blood erythrocytes count (nu mber/volume)Ordered By: Phu Espinoza on 01-03-2023 RBC (Bld) [#/Vol] 4.14 10*6/uL 4.2-5.4 [facility] Blood hemoglobin measurement (mass/volume)Ordered By: Phu Espinoza on 01-03-2023 Hemoglobin (Bld) [Mass/Vol] 10.8 g/dL 12.0-15.0 [facility] Blood lymphocytes/100 leukoc ytesOrdered By: Phu Espinoza on 01-03-2023 Lymphocytes/100 WBC (Bld) 36.0 % 19-41 [facility] Blood monocytes/100 leukocyt esOrdered By: Phu Espinoza on 01-03-2023 Monocytes/100 WBC (Bld) 8.3 % 0-10 [facility] Blood platelet mean volumeOr dered By: Phu Espinoza on 01-03-2023 Platelet mean volume (Bld) [Entitic vol] 10.2 fL 6.2-12.0 [facility] Determination of erythrocyte mean corpuscular volume (MCV)Ordered By: Phu Espinoza on 01-03-2023 MCV (RBC) [Entitic vol] 83.6 fL 81-99 [facility] Hematocrit Auto (Bld) [Volum e fraction]Ordered By: Phu Espinoza on 01-03-2023 Hematocrit (Bld) [Volume fraction] 34.6 % 37-47 [facility] Laboratory - Chemistry and C hemistry - challengeOrdered By: Phu Espinoza on 01-03-2023 ALP [Catalytic activity/Vol] 50 U/L 45-117 [facility] ALT [Catalytic activity/Vol] 31 U/L 13-56 [facility] CO2 [Moles/Vol] 26.0 mmol/L 21.0-32.0 [facility] Globulin (S) [Mass/Vol] 3.8 g/dL 2.2-4.2 [facility] Urea nitrogen/Creatinine [Mass ratio] 17.8 mg/mg 10-20 [facility] Laboratory - Hematology and Cell countsOrdered By: Phu Espinoza on 01-03-2023 Erythrocyte distribution width (RBC) [Entitic vol] 40.8 fL 35.1-43.9 [facility] Erythrocyte distribution width (RBC) [Ratio] 13.4 % 11.6-14.6 [facility] Immature granulocytes/100 WBC (Bld) 0.400 % 0.0-0.9 [facility] Comment on above: IG% - Immature Granu locytes (promyelocytes, myelocytes and metamyelocytes) > 1% indicates that a LEFT SHIFT is Present. MCH (RBC) [Entitic mass] 26.1 pg 27.0-32.0 [facility] Nucleated RBC/100 WBC (Bld) [Ratio] 0 % 0-5 [facility] MCHC Auto (RBC) [Mass/Vol]Or dered By: Phu Espinoza on 01-03-2023 MCHC (RBC) [Mass/Vol] 31.2 g/dL 32-36 [facility] No Panel InformationOrdered By: Phu Espinoza on 01-03-2023 Estimated GFR (MDRD) Amer 62 mL/min >60 [facility] Comment on above: GFR Calc Estimated GFR (MDRD) Non-Af Amer 51 mL/min >60 [facility] Comment on above: Non- GFR Calc Thyroid Stimulating Hormone (TSH) 6.16 uIU/mL 0.358-3.74 [facility] Platelets bldOrdered By: Phu Espinoza on 01-03-2023 Platelets (Bld) [#/Vol] 261 10*3/uL 150-450 [facility] Serum or plasma albumin thiago urement (mass/volume)Ordered By: Phu Espinoza on 01-03-2023 Albumin [Mass/Vol] 3.7 g/dL 3.2-5.0 [facility] Serum or plasma albumin/glob ulin mass ratioOrdered By: Phu Espinoza on 01-03-2023 Albumin/Globulin [Mass ratio] 1.0 {ratio} 0.9-2.4 [facility] Serum or plasma calcium thiago urement (mass/volume)Ordered By: Phu Espinoza on 01-03-2023 Calcium [Mass/Vol] 9.0 mg/dL 8.5-10.1 [facility] Serum or plasma creatinine m easurement (mass/volume)Ordered By: Phu Espinoza on 01-03-2023 Creatinine [Mass/Vol] 1.18 mg/dL 0.55-1.02 [facility] Comment on above: The validity of the calculated GFR & GFRAA in patients over 70 years has not been determined. Clinical correlation is essential. Serum or plasma urea nitroge n measurement (mass/volume)Ordered By: Phu Espinoza on 01-03-2023 Urea nitrogen [Mass/Vol] 21 mg/dL 7-18 [facility] Thin prep Papanicolaou smear with manual screeningOrdered By: Phu Espinoza on 01-03-2023 Thin prep Papanicolaou smear with manual screening 30 U/L 15-37 [facility] Thin prep Papanicolaou smear with manual screening 9 5-15 [facility] Laboratory - Hematology and Cell countson 11-17-2022 HbA1c (Bld) [Mass fraction] 7.1 % 4.2-6.3 [facility] Basophil percentageOrdered B y: Massiel Gibbons on 08-17-2022 Bilirubin [Mass/Vol] 0.70 mg/dL 0.20-1.00 [facility] Comment on above: For patients on eltr ombopag therapy, use of Dimension Mcrae TBIL is not recommended. Chloride [Moles/Vol] 105 mmol/L 98-107 [facility] Glucose [Mass/Vol] 167 mg/dL 74-106 [facility] Comment on above: Fasting Glucose resu lt greater than or equal to 126 mg/dL suggests DIABETES MELLITUS per A.D.A. criteria. Potassium [Moles/Vol] 4.3 mmol/L 3.5-5.1 [facility] Protein [Mass/Vol] 8.1 g/dL 6.4-8.2 [facility] Sodium [Moles/Vol] 138 mmol/L 136-145 [facility] Laboratory - Chemistry and C hemistry - challengeOrdered By: Massiel Gibbons on 08-17-2022 ALP [Catalytic activity/Vol] 54 U/L 45-117 [facility] ALT [Catalytic activity/Vol] 31 U/L 13-56 [facility] CO2 [Moles/Vol] 26.0 mmol/L 21.0-32.0 [facility] Globulin (S) [Mass/Vol] 4.2 g/dL 2.2-4.2 [facility] Urea nitrogen/Creatinine [Mass ratio] 25.2 mg/mg 10-20 [facility] No Panel InformationOrdered By: Massiel Gibbons on 08-17-2022 Estimated GFR (MDRD) Amer 72 mL/min >60 [facility] Comment on above: GFR Calc Estimated GFR (MDRD) Non-Af Amer 60 mL/min >60 [facility] Comment on above: Non- GFR Calc Thyroid Stimulating Hormone (TSH) 3.80 uIU/mL 0.358-3.74 [facility] Serum or plasma albumin thiago urement (mass/volume)Ordered By: Massiel Gibbons on 08-17-2022 Albumin [Mass/Vol] 3.9 g/dL 3.2-5.0 [facility] Serum or plasma albumin/glob ulin mass ratioOrdered By: Massiel Gibbons on 08-17-2022 Albumin/Globulin [Mass ratio] 0.9 {ratio} 0.9-2.4 [facility] Serum or plasma calcium thiago urement (mass/volume)Ordered By: Massiel Gibbons on 08-17-2022 Calcium [Mass/Vol] 10.0 mg/dL 8.5-10.1 [facility] Serum or plasma creatinine m easurement (mass/volume)Ordered By: Massiel Gibbons on 08-17-2022 Creatinine [Mass/Vol] 1.03 mg/dL 0.55-1.02 [facility] Comment on above: The validity of the calculated GFR & GFRAA in patients over 70 years has not been determined. Clinical correlation is essential. Serum or plasma urea nitroge n measurement (mass/volume)Ordered By: Massiel Gibbons on 08-17-2022 Urea nitrogen [Mass/Vol] 26 mg/dL 7-18 [facility] Thin prep Papanicolaou smear with manual screeningOrdered By: Massiel Gibbons on 08-17-2022 Thin prep Papanicolaou smear with manual screening 28 U/L 15-37 [facility] Thin prep Papanicolaou smear with manual screening 7 5-15 [facility] Absolute lymphocyte countOrd ered By: Dr. Espinoza on 04-04-2023 Lymphocytes Auto (Unsp spec) [#/Vol] 2.68 10*3/uL 0.83-4.51 [facility] Basophil percentageOrdered B y: Dr. Espinoza on 06-28-2022 Basophils/100 WBC (Bld) 0.7 % 0-1 [facility] Bilirubin [Mass/Vol] 0.30 mg/dL 0.20-1.00 [facility] Comment on above: For patients on eltr ombopag therapy, use of Dimension Mcrae TBIL is not recommended. Chloride [Moles/Vol] 107 mmol/L 98-107 [facility] Eosinophils/100 WBC (Bld) 2.4 % 0-5 [facility] Glucose [Mass/Vol] 138 mg/dL 74-106 [facility] Comment on above: Fasting Glucose resu lt greater than or equal to 126 mg/dL suggests DIABETES MELLITUS per A.D.A. criteria. Neutrophils (Bld) [#/Vol] 3.8 10*3/uL 2.0-7.7 [facility] Neutrophils/100 WBC (Bld) 50.6 % 47-70 [facility] Potassium [Moles/Vol] 4.1 mmol/L 3.5-5.1 [facility] Protein [Mass/Vol] 8.0 g/dL 6.4-8.2 [facility] Sodium [Moles/Vol] 139 mmol/L 136-145 [facility] WBC (Bld) [#/Vol] 7.4 10*3/uL 4.4-11.0 [facility] Blood erythrocytes count (nu mber/volume)Ordered By: Dr. Espinoza on 06-28-2022 RBC (Bld) [#/Vol] 4.33 10*6/uL 4.2-5.4 [facility] Blood hemoglobin measurement (mass/volume)Ordered By: Dr. Espinoza on 06-28-2022 Hemoglobin (Bld) [Mass/Vol] 11.4 g/dL 12.0-15.0 [facility] Blood lymphocytes/100 leukoc ytesOrdered By: Dr. Espinoza on 06-28-2022 Lymphocytes/100 WBC (Bld) 36.1 % 19-41 [facility] Blood monocytes/100 leukocyt esOrdered By: Dr. Espinoza on 06-28-2022 Monocytes/100 WBC (Bld) 9.8 % 0-10 [facility] Blood platelet mean volumeOr dered By: Dr. Espinoza on 06-28-2022 Platelet mean volume (Bld) [Entitic vol] 10.1 fL 6.2-12.0 [facility] Determination of erythrocyte mean corpuscular volume (MCV)Ordered By: Dr. Espinoza on 06-28-2022 MCV (RBC) [Entitic vol] 83.6 fL 81-99 [facility] Hematocrit Auto (Bld) [Volum e fraction]Ordered By: Dr. Espinoza on 06-28-2022 Hematocrit (Bld) [Volume fraction] 36.2 % 37-47 [facility] Laboratory - Chemistry and C hemistry - challengeOrdered By: Dr. Espinoza on 06-28-2022 ALP [Catalytic activity/Vol] 52 U/L 45-117 [facility] ALT [Catalytic activity/Vol] 29 U/L 13-56 [facility] CO2 [Moles/Vol] 28.0 mmol/L 21.0-32.0 [facility] Globulin (S) [Mass/Vol] 4.2 g/dL 2.2-4.2 [facility] Urea nitrogen/Creatinine [Mass ratio] 21.7 mg/mg 10-20 [facility] Laboratory - Hematology and Cell countsOrdered By: Dr. Espinoza on 06-28-2022 Erythrocyte distribution width (RBC) [Entitic vol] 43.9 fL 35.1-43.9 [facility] Erythrocyte distribution width (RBC) [Ratio] 14.4 % 11.6-14.6 [facility] Immature granulocytes/100 WBC (Bld) 0.400 % 0.0-0.9 [facility] Comment on above: IG% - Immature Granu locytes (promyelocytes, myelocytes and metamyelocytes) > 1% indicates that a LEFT SHIFT is Present. MCH (RBC) [Entitic mass] 26.3 pg 27.0-32.0 [facility] Nucleated RBC/100 WBC (Bld) [Ratio] 0 % 0-5 [facility] MCHC Auto (RBC) [Mass/Vol]Or dered By: Dr. Espinoza on 06-28-2022 MCHC (RBC) [Mass/Vol] 31.5 g/dL 32-36 [facility] No Panel InformationOrdered By: Dr. Espinoza on 06-28-2022 Estimated GFR (MDRD) Amer 56 mL/min >60 [facility] Comment on above: GFR Calc Estimated GFR (MDRD) Non-Af Amer 46 mL/min >60 [facility] Comment on above: Non- GFR Calc Thyroid Stimulating Hormone (TSH) 4.74 uIU/mL 0.358-3.74 [facility] Platelets bldOrdered By: Dr. Espinoza on 06-28-2022 Platelets (Bld) [#/Vol] 292 10*3/uL 150-450 [facility] Serum or plasma albumin thiago urement (mass/volume)Ordered By: Dr. Espinoza on 06-28-2022 Albumin [Mass/Vol] 3.8 g/dL 3.2-5.0 [facility] Serum or plasma albumin/glob ulin mass ratioOrdered By: Dr. Espinoza on 06-28-2022 Albumin/Globulin [Mass ratio] 0.9 {ratio} 0.9-2.4 [facility] Serum or plasma calcium thiago urement (mass/volume)Ordered By: Dr. Espinoza on 06-28-2022 Calcium [Mass/Vol] 9.2 mg/dL 8.5-10.1 [facility] Serum or plasma creatinine m easurement (mass/volume)Ordered By: Dr. Espinoza on 06-28-2022 Creatinine [Mass/Vol] 1.29 mg/dL 0.55-1.02 [facility] Comment on above: The validity of the calculated GFR & GFRAA in patients over 70 years has not been determined. Clinical correlation is essential. Serum or plasma urea nitroge n measurement (mass/volume)Ordered By: Dr. Espinoza on 06-28-2022 Urea nitrogen [Mass/Vol] 28 mg/dL 7-18 [facility] Thin prep Papanicolaou smear with manual screeningOrdered By: Dr. Espinoza on 06-28-2022 Thin prep Papanicolaou smear with manual screening 20 U/L 15-37 [facility] Thin prep Papanicolaou smear with manual screening 4 5- [facility] Laboratory - Hematology and Cell countson 05-11-2022 HbA1c (Bld) [Mass fraction] 7.6 % [facility] Basophil percentageon 2021 Bilirubin [Mass/Vol] 0.20 mg/dL 0.20-1.00 [facility] Work Phone: Comment on above: For patients on eltr ombopag therapy, use of Dimension Mcrae TBIL is not recommended. Chloride [Moles/Vol] 107 mmol/L 98-107 [facility] Work Phone: Glucose [Mass/Vol] 137 mg/dL 74-106 [facility] Work Phone: Comment on above: Fasting Glucose resu lt greater than or equal to 126 mg/dL suggests DIABETES MELLITUS per A.D.A. criteria. Potassium [Moles/Vol] 3.5 mmol/L 3.5-5.1 [facility] Work Phone: Protein [Mass/Vol] 7.2 g/dL 6.4-8.2 [facility] Work Phone: Sodium [Moles/Vol] 142 mmol/L 136-145 [facility] Work Phone: Laboratory - Chemistry and C hemistry - challengeon 02-08-2022 ALP [Catalytic activity/Vol] 65 U/L 45-117 [facility] Work Phone: ALT [Catalytic activity/Vol] 45 U/L 13-56 [facility] Work Phone: CO2 [Moles/Vol] 26.0 mmol/L 21.0-32.0 [facility] Work Phone: Globulin (S) [Mass/Vol] 3.8 g/dL 2.2-4.2 [facility] Work Phone: Urea nitrogen/Creatinine [Mass ratio] 13.8 mg/mg 10-20 [facility] Work Phone: No Panel Informationon 02-08 Estimated GFR (MDRD) Amer 88 mL/min >60 [facility] Work Phone: Comment on above: GFR Calc Estimated GFR (MDRD) Non-Af Amer 73 mL/min >60 [facility] Work Phone: Comment on above: Non- GFR Calc Hepatitis A IgM Antibody Negative Negative [facility] Work Phone: Hepatitis B Core IgM Antibody Negative Negative [facility] Work Phone: Hepatitis C Antibody (EIA) 0.1 s/co ratio 0.0-0.9 [facility] Work Phone: Hepatitis C Antibody Comment Comment . [facility] Work Phone: Comment on above: NegativeNot infected with HCV, unless recent infection issuspected or other evidence exists to indicate HCVinfection.Performed at: [facility] [id number] Director: Spencer Carbajal PhD, Phone: [phone] Serum or plasma albumin thiago urement (mass/volume)on 02-08-2022 Albumin [Mass/Vol] 3.4 g/dL 3.2-5.0 [facility] Work Phone: Serum or plasma albumin/glob ulin mass ratioon 02-08-2022 Albumin/Globulin [Mass ratio] 0.9 {ratio} 0.9-2.4 [facility] Work Phone: Serum or plasma calcium thiago urement (mass/volume)on 02-08-2022 Calcium [Mass/Vol] 8.0 mg/dL 8.5-10.1 [facility] Work Phone: Serum or plasma creatinine m easurement (mass/volume)on 02-08-2022 Creatinine [Mass/Vol] 0.87 mg/dL 0.55-1.02 [facility] Work Phone: Comment on above: The validity of the calculated GFR & GFRAA in patients over 70 years has not been determined. Clinical correlation is essential. Serum or plasma hepatitis B virus surface antigen detection by immunoassayon 02-08-2022 HBV surface Ag IA Ql Negative Negative [facility] Work Phone: Serum or plasma urea nitroge n measurement (mass/volume)on 02-08-2022 Urea nitrogen [Mass/Vol] 12 mg/dL 7-18 [facility] Work Phone: Thin prep Papanicolaou smear with manual screeningon 02-08-2022 Thin prep Papanicolaou smear with manual screening 25 U/L 15-37 [facility] Work Phone: Thin prep Papanicolaou smear with manual screening 9 5-15 [facility] Work Phone: Absolute lymphocyte counton 02-05-2022 Lymphocytes Auto (Unsp spec) [#/Vol] 2.34 10*3/uL 0.83-4.51 [facility] Work Phone: Basophil percentageon 2021 Basophils/100 WBC (Bld) 0.2 % 0-1 [facility] Work Phone: Bilirubin [Mass/Vol] 0.30 mg/dL 0.20-1.00 [facility] Work Phone: Comment on above: For patients on eltr ombopag therapy, use of Dimension Mcrae TBIL is not recommended. Chloride [Moles/Vol] 110 mmol/L 98-107 [facility] Work Phone: Eosinophils/100 WBC (Bld) 4.4 % 0-5 [facility] Work Phone: Glucose [Mass/Vol] 123 mg/dL 74-106 [facility] Work Phone: Comment on above: Fasting Glucose resu lt from 100 to 125 mg/dL suggests IMPAIRED HOMEOSTASIS per A.D.A. criteria. Neutrophils (Bld) [#/Vol] 1.7 10*3/uL 2.0-7.7 [facility] Work Phone: Neutrophils/100 WBC (Bld) 33.8 % 47-70 [facility] Work Phone: Potassium [Moles/Vol] 3.4 mmol/L 3.5-5.1 [facility] Work [facility]: Protein [Mass/Vol] 5.9 g/dL 6.4-8.2 [facility]: Sodium [Moles/Vol] 143 mmol/L 136-145 [facility]: WBC (Bld) [#/Vol] 5.0 10*3/uL 4.4-11.0 [facility] Work Phone: Blood erythrocytes count (nu mber/volume)on 02-05-2022 RBC (Bld) [#/Vol] 3.91 10*6/uL 4.2-5.4 [facility] Blood hemoglobin measurement (mass/volume)on 02-05-2022 Hemoglobin (Bld) [Mass/Vol] 10.0 g/dL 12.0-15.0 [facility] Work Phone: Blood lymphocytes/100 leukoc yteson 02-05-2022 Lymphocytes/100 WBC (Bld) 47.3 % 19-41 [facility] Work Phone: Blood monocytes/100 leukocyt eson 02-05-2022 Monocytes/100 WBC (Bld) 13.9 % 0-10 [facility] Work Phone: [phone] Blood platelet mean volumeon 02-05-2022 Platelet mean volume (Bld) [Entitic vol] 10.1 fL 6.2-12.0 [facility] Work Phone: Determination of erythrocyte mean corpuscular volume (MCV)on 02-05-2022 MCV (RBC) [Entitic vol] 82.6 fL 81-99 [facility] Work Phone: [phone] Direct bilirubinon 2 Bilirubin.direct [Mass/Vol] 0.15 mg/dL 0.00-0.30 [facility] Work Phone: Glucose Glucometer (BldC) [M ass/Vol]on 02-05-2022 Glucose [Mass/Vol] 133 mg/dL 74-106 [facility] Work Phone: Comment on above: MANAGEMENT OF PATIEN T CARE PER NURSING PROTOCOL Hematocrit Auto (Bld) [Volum e fraction]on 02-05-2022 Hematocrit (Bld) [Volume fraction] 32.3 % 37-47 [facility] Work Phone: Laboratory - Chemistry and C hemistry - challengeon 02-05-2022 ALP [Catalytic activity/Vol] 50 U/L 45-117 [facility] Work Phone: ALT [Catalytic activity/Vol] 72 U/L 13-56 [facility] Work Phone: CO2 [Moles/Vol] 30.0 mmol/L 21.0-32.0 [facility] Work Phone: Globulin (S) [Mass/Vol] 3.2 g/dL 2.2-4.2 [facility] Work Phone: Urea nitrogen/Creatinine [Mass ratio] 12.4 mg/mg 10-20 [facility] Work Phone: Laboratory - Hematology and Cell countson 02-05-2022 Erythrocyte distribution width (RBC) [Entitic vol] 41.7 fL 35.1-43.9 [facility] Work Phone: Erythrocyte distribution width (RBC) [Ratio] 14.0 % 11.6-14.6 [facility] Work Phone: Immature granulocytes/100 WBC (Bld) 0.400 % 0.0-0.9 [facility] Work Phone: Comment on above: IG% - Immature Granu locytes (promyelocytes, myelocytes and metamyelocytes) > 1% indicates that a LEFT SHIFT is Present. MCH (RBC) [Entitic mass] 25.6 pg 27.0-32.0 [facility] Work Phone: Nucleated RBC/100 WBC (Bld) [Ratio] 0 % 0-5 [facility] Work Phone: MCHC Auto (RBC) [Mass/Vol]on 02-05-2022 MCHC (RBC) [Mass/Vol] 31.0 g/dL 32-36 [facility] Work Phone: Comment on above: Delta: 33.0 on 02/04 No Panel Informationon 02-05 Estimated Creatinine Clearance Calc 72.72 ml/min [facility] [place] Work Phone: Estimated GFR (MDRD) Amer 86 mL/min >60 [facility] Work Phone: Comment on above: GFR Calc Estimated GFR (MDRD) Non-Af Amer 71 mL/min >60 [facility] [place] Work Phone: Comment on above: Non- GFR Calc Platelets bldon 02-05-2022 Platelets (Bld) [#/Vol] 190 10*3/uL 150-450 [facility] [place] Work Phone: Serum or plasma albumin thiago urement (mass/volume)on 02-05-2022 Albumin [Mass/Vol] 2.7 g/dL 3.2-5.0 [facility] Work Phone: Serum or plasma calcium thiago urement (mass/volume)on 02-05-2022 Calcium [Mass/Vol] 7.8 mg/dL 8.5-10.1 [facility] Work Phone: Serum or plasma creatinine m easurement (mass/volume)on 02-05-2022 Creatinine [Mass/Vol] 0.89 mg/dL 0.55-1.02 [facility] Work Phone: Comment on above: The validity of the calculated GFR & GFRAA in patients over 70 years has not been determined. Clinical correlation is essential. Serum or plasma urea nitroge n measurement (mass/volume)on 02-05-2022 Urea nitrogen [Mass/Vol] 11 mg/dL 7-18 [facility] [place] Work Phone: Thin prep Papanicolaou smear with manual screeningon 02-05-2022 Thin prep Papanicolaou smear with manual screening 53 U/L 15-37 [facility] Work Phone: Thin prep Papanicolaou smear with manual screening 3 5-15 [facility] Work Phone: Iron measurement (mass/mass) on 02-04-2022 Iron (Unsp spec) [Mass/Mass] 29 ug/dL 50-170 [facility] [place] Work Phone: No Panel Informationon 02-04 Total Iron Binding Capacity 373 ug/dL 250-450 [facility] [place] Work Phone: Serum or plasma albumin/glob ulin mass ratioon 02-04-2022 Albumin/Globulin [Mass ratio] 0.9 {ratio} 0.9-2.4 [facility] [place] Work Phone: Serum or plasma ferritin lizette surement (mass/volume)on 02-04-2022 Ferritin [Mass/Vol] 36 ng/mL 8-252 [facility]: Serum or plasma iron saturat ion measurement (mass fraction)on 02-04-2022 Iron saturation [Mass fraction] 7.8 % 15.0-55.0 [facility] [place] Work Phone: Absolute lymphocyte counton 02-03-2022 Lymphocytes Auto (Unsp spec) [#/Vol] 0.92 10*3/uL 0.83-4.51 [facility] [place] Work Phone: [phone] Basophil percentageon 2021 Basophil percentage 0-5 SEEN /hpf 0-5 [facility] Work Phone: Basophils/100 WBC (Bld) 0.1 % 0-1 [facility] Work Phone: Bilirubin [Mass/Vol] 0.50 mg/dL 0.20-1.00 [facility] Work Phone: Comment on above: For patients on eltr ombopag therapy, use of Dimension Mcrae TBIL is not recommended. Chloride [Moles/Vol] 106 mmol/L 98-107 [facility] Work Phone: Eosinophils/100 WBC (Bld) 2.0 % 0-5 [facility] [place] Work Phone: [phone] Glucose [Mass/Vol] 141 mg/dL 74-106 [facility] Work Phone: Comment on above: Fasting Glucose resu lt greater than or equal to 126 mg/dL suggests DIABETES MELLITUS per A.D.A. criteria. Lactate [Moles/Vol] 1.3 mmol/L 0.4-2.0 [facility] Work Phone: [phone] Neutrophils (Bld) [#/Vol] 7.0 10*3/uL 2.0-7.7 [facility] [place] Work Phone: [phone] Neutrophils/100 WBC (Bld) 81.0 % 47-70 [facility] [place] Work Phone: [phone] Potassium [Moles/Vol] 4.1 mmol/L 3.5-5.1 [facility] Work Phone: [phone] Protein [Mass/Vol] 7.2 g/dL 6.4-8.2 [facility] Work Phone: [phone] Sodium [Moles/Vol] 140 mmol/L 136-145 [facility] Work Phone: [phone] WBC (Bld) [#/Vol] 8.6 10*3/uL 4.4-11.0 [facility] Work Phone: [phone] Beta hCG serum qualon 2021 Beta HCG ( test) Ql Negative [facility] Work Phone: [phone] Bilirubin Test strip Ql (U)o n 02-03-2022 Bilirubin Ql (U) Negative Negative [facility] Work Phone: [phone] Blood erythrocytes count (nu mber/volume)on 02-03-2022 RBC (Bld) [#/Vol] 4.48 10*6/uL 4.2-5.4 [facility] Work Phone: Blood hemoglobin measurement (mass/volume)on 02-03-2022 Hemoglobin (Bld) [Mass/Vol] 11.5 g/dL 12.0-15.0 [facility] [place] Work Phone: Blood lymphocytes/100 leukoc yteson 02-03-2022 Lymphocytes/100 WBC (Bld) 10.7 % 19-41 [facility] [place] Work Phone: Blood monocytes/100 leukocyt eson 02-03-2022 Monocytes/100 WBC (Bld) 5.9 % 0-10 [facility] Work Phone: Blood platelet mean volumeon 02-03-2022 Platelet mean volume (Bld) [Entitic vol] 10.0 fL 6.2-12.0 [facility] Work Phone: Determination of erythrocyte mean corpuscular volume (MCV)on 02-03-2022 MCV (RBC) [Entitic vol] 80.4 fL 81-99 [facility] Work Phone: Hematocrit Auto (Bld) [Volum e fraction]on 02-03-2022 Hematocrit (Bld) [Volume fraction] 36.0 % 37-47 [facility] [place] Work Phone: INR in Blood by Coagulation assayon 02-03-2022 INR Coag (Bld) [Relative time] 1.1 {INR} [facility] Work Phone: Ketones Test strip Ql (U)on 02-03-2022 Ketones Ql (U) 5 mg/dl Negative [facility] Work Phone: Laboratory - Chemistry and C hemistry - challengeon 02-03-2022 ALP [Catalytic activity/Vol] 50 U/L 45-117 [facility] [place] Work Phone: ALT [Catalytic activity/Vol] 25 U/L 13-56 [facility] Work Phone: CO2 [Moles/Vol] 24.0 mmol/L 21.0-32.0 [facility] Work Phone: [phone] Globulin (S) [Mass/Vol] 3.7 g/dL 2.2-4.2 [facility] Work Phone: [phone] Lipase [Catalytic activity/Vol] 382 U/L 73-393 [facility] Work Phone: [phone] Urea nitrogen/Creatinine [Mass ratio] 19.4 mg/mg 10-20 [facility] Work Phone: [phone] Laboratory - Coagulationon 1 04-05-2021 aPTT Coag (Bld) [Time] 28.7 s 24.1-36.2 [facility] Work Phone: PT Coag (PPP) [Time] 13.5 s 11.7-14.[address] [facility] [facility]: [phone] Laboratory - Hematology and Cell countson 02-03-2022 Erythrocyte distribution width (RBC) [Entitic vol] 38.9 fL 35.1-43.9 [facility] Work [facility]: [phone] Erythrocyte distribution width (RBC) [Ratio] 13.4 % 11.6-14.6 [facility] [place] Work Phone: [phone] Immature granulocytes/100 WBC (Bld) 0.300 % 0.0-0.9 [facility] [place] Work Phone: Comment on above: IG% - Immature Granu locytes (promyelocytes, myelocytes and metamyelocytes) > 1% indicates that a LEFT SHIFT is Present. MCH (RBC) [Entitic mass] 25.7 pg 27.0-32.0 [facility] [place] Work Phone: [phone] Nucleated RBC/100 WBC (Bld) [Ratio] 0 % 0-5 [facility] [place] Work Phone: MCHC Auto (RBC) [Mass/Vol]on 02-03-2022 MCHC (RBC) [Mass/Vol] 31.9 g/dL 32-36 [facility] Work Phone: Mucus LM Ql (Urine sed)on Mucus Ql (Urine sed) 0 SEEN /hpf [facility] Work Phone: Nitrite Test strip Ql (U)on 02-03-2022 Nitrite Ql (U) Negative Negative [facility] Work Phone: No Panel Informationon 02-03 Estimated Creatinine Clearance Calc 73.55 ml/min [facility] Work Phone: Estimated GFR (MDRD) Amer 87 mL/min >60 [facility] Work Phone: Comment on above: GFR Calc Estimated GFR (MDRD) Non-Af Amer 72 mL/min >60 [facility] [place] Work Phone: Comment on above: Non- GFR Calc Platelets bldon 02-03-2022 Platelets (Bld) [#/Vol] 222 10*3/uL 150-450 [facility] [place] Work Phone: Protein Test strip Ql (U)on 02-03-2022 Protein Ql (U) 30 mg/dl Negative [facility] Work Phone: Serum heterophile antibody d etectionon 02-03-2022 Heterophile Ab Ql (S) Negative Negative [facility] Work Phone: Serum or plasma albumin thiago urement (mass/volume)on 02-03-2022 Albumin [Mass/Vol] 3.5 g/dL 3.2-5.0 [facility] Work Phone: Serum or plasma albumin/glob ulin mass ratioon 02-03-2022 Albumin/Globulin [Mass ratio] 0.9 {ratio} 0.9-2.4 [facility] Work Phone: Serum or plasma calcium thiago urement (mass/volume)on 02-03-2022 Calcium [Mass/Vol] 8.8 mg/dL 8.5-10.1 [facility] Work Phone: Serum or plasma creatinine m easurement (mass/volume)on 02-03-2022 Creatinine [Mass/Vol] 0.88 mg/dL 0.55-1.02 [facility] Work Phone: Comment on above: The validity of the calculated GFR & GFRAA in patients over 70 years has not been determined. Clinical correlation is essential. Serum or plasma urea nitroge n measurement (mass/volume)on 02-03-2022 Urea nitrogen [Mass/Vol] 17 mg/dL 7-18 [facility] Work Phone: Serum procalcitonin measurem enton 02-03-2022 Procalcitonin [Mass/Vol] 0.08 ng/mL 0.00-0.09 [facility] Work Phone: Comment on above: A procalcitonin [...] Ql (Urine sed) 0-5 SEEN /hpf 5-10 [facility] Work Phone: Thin prep Papanicolaou smear with manual screeningon 02-03-2022 Thin prep Papanicolaou smear with manual screening 23 U/L 15-37 [facility] Work Phone: Thin prep Papanicolaou smear with manual screening 10 5-15 [facility] Work Phone: Urine blood detectionon 01-25 RBC Ql (U) Negative Negative [facility] Work Phone: RBC Ql (U) 0 SEEN /hpf 0-5 [facility] Work Phone: Urine clarityon 02-03-2022 Clarity (U) Sl. Cloudy Clear [facility] Work Phone: Urine color determinationon 02-03-2022 Color (U) Yellow Yellow [facility] Work Phone: Urine glucose detectionon Glucose Ql (U) Normal mg/dl Normal [facility] Work Phone: Urine leukocyte esterase det ection by dipstickon 02-03-2022 Leukocyte esterase Test strip Ql (U) 25 /ul Negative [facility] Work Phone: Urine pHon 02-03-2022 pH (U) 8.0 [pH] 5.0 - 8.0 [facility] Work Phone: Urine sediment bacteria coun t by microscopy (number/high power field)on 02-03-2022 Bacteria LM.HPF (Urine sed) [#/Area] RARE /hpf None Seen [facility] Work Phone: Urine specific gravity measu rementon 02-03-2022 Specific gravity (U) [Rel density] 1.010 1.002-1.030 [facility] [place] Work Phone: Urobilinogen Auto test strip Ql (U)on 02-03-2022 Urobilinogen Ql (U) Normal mg/dl Normal [facility] Work Phone: Absolute lymphocyte counton 12-21-2021 Lymphocytes Auto (Unsp spec) [#/Vol] 2.78 10*3/uL 0.83-4.51 [facility] [place] Work Phone: Basophil percentageon 2021 Basophils/100 WBC (Bld) 0.5 % 0-1 [facility] Work Phone: Bilirubin [Mass/Vol] 0.40 mg/dL 0.20-1.00 [facility] Work Phone: [phone] Comment on above: For patients on eltr ombopag therapy, use of Dimension Mcrae TBIL is not recommended. Chloride [Moles/Vol] 106 mmol/L 98-107 [facility] Work Phone: [phone] Eosinophils/100 WBC (Bld) 2.2 % 0-5 [facility] [place] Work Phone: [phone] Glucose [Mass/Vol] 145 mg/dL 74-106 [facility] Work Phone: Comment on above: Fasting Glucose resu lt greater than or equal to 126 mg/dL suggests DIABETES MELLITUS per A.D.A. criteria. Neutrophils (Bld) [#/Vol] 4.7 10*3/uL 2.0-7.7 [facility] [place] Work Phone: [phone] Neutrophils/100 WBC (Bld) 56.6 % 47-70 [facility] [place] Work Phone: [phone] Potassium [Moles/Vol] 4.2 mmol/L 3.5-5.1 [facility] Work Phone: [phone] Protein [Mass/Vol] 7.9 g/dL 6.4-8.2 [facility] Work Phone: [phone] Sodium [Moles/Vol] 141 mmol/L 136-145 [facility] Work Phone: [phone] WBC (Bld) [#/Vol] 8.2 10*3/uL 4.4-11.0 [facility] Work Phone: [phone] Blood erythrocytes count (nu mber/volume)on 12-21-2021 RBC (Bld) [#/Vol] 4.41 10*6/uL 4.2-5.4 [facility] Work Phone: [phone] Blood hemoglobin measurement (mass/volume)on 12-21-2021 Hemoglobin (Bld) [Mass/Vol] 11.8 g/dL 12.0-15.0 [facility] Work Phone: Blood lymphocytes/100 leukoc yteson 12-21-2021 Lymphocytes/100 WBC (Bld) 33.7 % 19-41 [facility] Work Phone: Blood monocytes/100 leukocyt eson 12-21-2021 Monocytes/100 WBC (Bld) 6.8 % 0-10 [facility] Work Phone: Blood platelet mean volumeon 12-21-2021 Platelet mean volume (Bld) [Entitic vol] 10.6 fL 6.2-12.0 [facility] Work Phone: Determination of erythrocyte mean corpuscular volume (MCV)on 12-21-2021 MCV (RBC) [Entitic vol] 80.7 fL 81-99 [facility] Work Phone: Hematocrit Auto (Bld) [Volum e fraction]on 12-21-2021 Hematocrit (Bld) [Volume fraction] 35.6 % 37-47 [facility] Work Phone: Laboratory - Chemistry and C hemistry - challengeon 12-21-2021 ALP [Catalytic activity/Vol] 49 U/L 45-117 [facility] Work Phone: ALT [Catalytic activity/Vol] 25 U/L 13-56 [facility] Work Phone: CO2 [Moles/Vol] 27.0 mmol/L 21.0-32.0 [facility] Work Phone: Globulin (S) [Mass/Vol] 4.1 g/dL 2.2-4.2 [facility] Work Phone: Urea nitrogen/Creatinine [Mass ratio] 21.9 mg/mg 10-20 [facility] Work Phone: Laboratory - Hematology and Cell countson 12-21-2021 Erythrocyte distribution width (RBC) [Entitic vol] 38.6 fL 35.1-43.9 [facility] Work [facility]: Erythrocyte distribution width (RBC) [Ratio] 13.3 % 11.6-14.6 [facility] Work Phone: Immature granulocytes/100 WBC (Bld) 0.200 % 0.0-0.9 [facility] Work Phone: Comment on above: IG% - Immature Granu locytes (promyelocytes, myelocytes and metamyelocytes) > 1% indicates that a LEFT SHIFT is Present. MCH (RBC) [Entitic mass] 26.8 pg 27.0-32.0 [facility] Work Phone: Nucleated RBC/100 WBC (Bld) [Ratio] 0 % 0-5 [facility] Work Phone: MCHC Auto (RBC) [Mass/Vol]on 12-21-2021 MCHC (RBC) [Mass/Vol] 33.1 g/dL 32-36 [facility] Work Phone: No Panel Informationon 12-21 Estimated GFR (MDRD) Amer 79 mL/min >60 [facility] Work Phone: Comment on above: GFR Calc Estimated GFR (MDRD) Non-Af Amer 65 mL/min >60 [facility] Work Phone: Comment on above: Non- GFR Calc Thyroid Stimulating Hormone (TSH) 2.66 uIU/mL 0.358-3.74 [facility] Work Phone: Platelets bldon 12-21-2021 Platelets (Bld) [#/Vol] 285 10*3/uL 150-450 [facility] Work Phone: Serum or plasma albumin thiago urement (mass/volume)on 12-21-2021 Albumin [Mass/Vol] 3.8 g/dL 3.2-5.0 [facility] Work Phone: Serum or plasma albumin/glob ulin mass ratioon 12-21-2021 Albumin/Globulin [Mass ratio] 0.9 {ratio} 0.9-2.4 [facility] Work Phone: Serum or plasma calcium thiago urement (mass/volume)on 12-21-2021 Calcium [Mass/Vol] 9.2 mg/dL 8.5-10.1 [facility] Work Phone: Serum or plasma creatinine m easurement (mass/volume)on 12-21-2021 Creatinine [Mass/Vol] 0.96 mg/dL 0.55-1.02 [facility] Work Phone: Comment on above: The validity of the calculated GFR & GFRAA in patients over 70 years has not been determined. Clinical correlation is essential. Serum or plasma urea nitroge n measurement (mass/volume)on 12-21-2021 Urea nitrogen [Mass/Vol] 21 mg/dL 7-18 [facility] Work Phone: Thin prep Papanicolaou smear with manual screeningon 12-21-2021 Thin prep Papanicolaou smear with manual screening 20 U/L 15-37 [facility] Work Phone: Thin prep Papanicolaou smear with manual screening 8 5-15 [facility] Work Phone: Laboratory - Chemistry and C hemistry - challengeon 10-20-2021 Free T4 [Mass/Vol] 0.84 ng/dL 0.76-1.46 [facility] Work Phone: No Panel Informationon 10-20 Thyroid Stimulating Hormone (TSH) 2.21 uIU/mL 0.358-3.74 [facility] Work Phone: Whole blood hemoglobin A1c/t otal hemoglobin ratio (mass fraction)on 10-20-2021 HbA1c (Bld) [Mass fraction] 6.6 % 3.8-5.6 [facility] Work Phone: Comment on above: Normal < 5.7 % Predi abetic 5.7 - 6.4 % Diabetic >or= 6.5 % Please note range changes. Absolute lymphocyte counton 09-21-2021 Lymphocytes Auto (Unsp spec) [#/Vol] 2.61 10*3/uL 0.83-4.51 [facility] Work Phone: Basophil percentageon 2021 Basophils/100 WBC (Bld) 0.5 % 0-1 [facility] Work Phone: Bilirubin [Mass/Vol] 0.60 mg/dL 0.20-1.00 [facility] Work Phone: Comment on above: For patients on eltr ombopag therapy, use of Dimension Mcrae TBIL is not recommended. Chloride [Moles/Vol] 105 mmol/L 98-107 [facility] Work Phone: Eosinophils/100 WBC (Bld) 2.1 % 0-5 [facility] Work Phone: Glucose [Mass/Vol] 143 mg/dL 74-106 [facility] Work Phone: Comment on above: Fasting Glucose resu lt greater than or equal to 126 mg/dL suggests DIABETES MELLITUS per A.D.A. criteria. Neutrophils (Bld) [#/Vol] 4.1 10*3/uL 2.0-7.7 [facility] Work Phone: Neutrophils/100 WBC (Bld) 54.2 % 47-70 [facility] Work Phone: Potassium [Moles/Vol] 4.1 mmol/L 3.5-5.1 [facility] Work Phone: Protein [Mass/Vol] 7.5 g/dL 6.4-8.2 [facility] Work Phone: Sodium [Moles/Vol] 139 mmol/L 136-145 [facility] Work Phone: WBC (Bld) [#/Vol] 7.7 10*3/uL 4.4-11.0 [facility] Work Phone: Blood erythrocytes count (nu mber/volume)on 09-21-2021 RBC (Bld) [#/Vol] 4.25 10*6/uL 4.2-5.4 [facility] Work Phone: Blood hemoglobin measurement (mass/volume)on 09-21-2021 Hemoglobin (Bld) [Mass/Vol] 11.5 g/dL 12.0-15.0 [facility] Work Phone: Blood lymphocytes/100 leukoc yteson 09-21-2021 Lymphocytes/100 WBC (Bld) 34.1 % 19-41 [facility] [facility] [place] Work Phone: Blood monocytes/100 leukocyt eson 09-21-2021 Monocytes/100 WBC (Bld) 8.6 % 0-10 [facility] Work Phone: Blood platelet mean volumeon 09-21-2021 Platelet mean volume (Bld) [Entitic vol] 9.9 fL 6.2-12.0 [facility] [place] Work Phone: Determination of erythrocyte mean corpuscular volume (MCV)on 09-21-2021 MCV (RBC) [Entitic vol] 81.6 fL 81-99 [facility] Work Phone: Hematocrit Auto (Bld) [Volum e fraction]on 09-21-2021 Hematocrit (Bld) [Volume fraction] 34.7 % 37-47 [facility] [place] Work Phone: Laboratory - Chemistry and C hemistry - challengeon 09-21-2021 ALP [Catalytic activity/Vol] 45 U/L 45-117 [facility] [place] Work Phone: ALT [Catalytic activity/Vol] 28 U/L 13-56 [facility] [place] Work Phone: CO2 [Moles/Vol] 26.0 mmol/L 21.0-32.0 [facility] [place] Work Phone: Globulin (S) [Mass/Vol] 3.8 g/dL 2.2-4.2 [facility] Work Phone: Urea nitrogen/Creatinine [Mass ratio] 12.8 mg/mg 10-20 [facility] [place] Work Phone: Laboratory - Hematology and Cell countson 09-21-2021 Erythrocyte distribution width (RBC) [Entitic vol] 38.6 fL 35.1-43.9 [facility] Work Phone: Erythrocyte distribution width (RBC) [Ratio] 13.0 % 11.6-14.6 [facility] [place] Work Phone: Immature granulocytes/100 WBC (Bld) 0.500 % 0.0-0.9 [facility] [place] Work Phone: Comment on above: IG% - Immature Granu locytes (promyelocytes, myelocytes and metamyelocytes) > 1% indicates that a LEFT SHIFT is Present. MCH (RBC) [Entitic mass] 27.1 pg 27.0-32.0 [facility] [place] Work Phone: Nucleated RBC/100 WBC (Bld) [Ratio] 0 % 0-5 [facility] [place] Work Phone: MCHC Auto (RBC) [Mass/Vol]on 09-21-2021 MCHC (RBC) [Mass/Vol] 33.1 g/dL 32-36 [facility] Work Phone: No Panel Informationon 09-21 Estimated GFR (MDRD) Amer 68 mL/min >60 [facility] [place] Work Phone: Comment on above: GFR Calc Estimated GFR (MDRD) Non-Af Amer 56 mL/min >60 [facility] [place] Work Phone: Comment on above: Non- GFR Calc Thyroid Stimulating Hormone (TSH) 2.98 uIU/mL 0.358-3.74 [facility] [place] Work Phone: Vitamin D 25-Hydroxy 36.2 ng/mL [facility] Work Phone: Comment on above: Vitamin D 25(OH) Sta tus Range Deficiency <20 ng/mL (50nmol/L) Insufficiency 20 - 30 ng/mL (50 - 75 nmol/L) Sufficiency 30 - 100 ng/mL (75 - 250 nmol/L) Toxicity >100 ng/mL (>250 nmol/L) Platelets bldon 06-28-2022 Platelets (Bld) [#/Vol] 274 10*3/uL 150-450 [facility] [place] Work Phone: Serum or plasma albumin thiago urement (mass/volume)on 09-21-2021 Albumin [Mass/Vol] 3.7 g/dL 3.2-5.0 [facility] Work Phone: Serum or plasma albumin/glob ulin mass ratioon 09-21-2021 Albumin/Globulin [Mass ratio] 1.0 {ratio} 0.9-2.4 [facility] [place] Work Phone: Serum or plasma calcium thiago urement (mass/volume)on 09-21-2021 Calcium [Mass/Vol] 8.7 mg/dL 8.5-10.1 [facility] Work Phone: Serum or plasma creatinine m easurement (mass/volume)on 09-21-2021 Creatinine [Mass/Vol] 1.09 mg/dL 0.55-1.02 [facility] Work Phone: Comment on above: The validity of the calculated GFR & GFRAA in patients over 70 years has not been determined. Clinical correlation is essential. Serum or plasma urea nitroge n measurement (mass/volume)on 09-21-2021 Urea nitrogen [Mass/Vol] 14 mg/dL 7-18 [facility] [place] Work Phone: Thin prep Papanicolaou smear with manual screeningon 09-21-2021 Thin prep Papanicolaou smear with manual screening 27 U/L 15-37 [facility] [place] Work Phone: Thin prep Papanicolaou smear with manual screening 8 5-15 [facility] [place] Work Phone: Absolute lymphocyte counton 08-25-2021 Lymphocytes Auto (Unsp spec) [#/Vol] 2.35 10*3/uL 0.83-4.51 [facility] [place] Work Phone: Basophil percentageon 2021 Basophils/100 WBC (Bld) 0.4 % 0-1 [facility] Work Phone: Bilirubin [Mass/Vol] 0.40 mg/dL 0.20-1.00 [facility] Work Phone: Comment on above: For patients on eltr ombopag therapy, use of Dimension Mcrae TBIL is not recommended. Chloride [Moles/Vol] 106 mmol/L 98-107 [facility] Work Phone: Eosinophils/100 WBC (Bld) 1.5 % 0-5 [facility] [place] Work Phone: Glucose [Mass/Vol] 163 mg/dL 74-106 [facility] Work Phone: Comment on above: Fasting Glucose resu lt greater than or equal to 126 mg/dL suggests DIABETES MELLITUS per A.D.A. criteria. Neutrophils (Bld) [#/Vol] 5.7 10*3/uL 2.0-7.7 [facility] [place] Work Phone: Neutrophils/100 WBC (Bld) 62.9 % 47-70 [facility] [place] Work Phone: Potassium [Moles/Vol] 4.5 mmol/L 3.5-5.1 [facility] Work Phone: Protein [Mass/Vol] 8.2 g/dL 6.4-8.2 [facility] Work Phone: Sodium [Moles/Vol] 139 mmol/L 136-145 [facility] Work Phone: WBC (Bld) [#/Vol] 9.1 10*3/uL 4.4-11.0 [facility] Work Phone: Blood erythrocytes count (nu mber/volume)on 08-25-2021 RBC (Bld) [#/Vol] 4.49 10*6/uL 4.2-5.4 [facility] Work Phone: Blood hemoglobin measurement (mass/volume)on 08-25-2021 Hemoglobin (Bld) [Mass/Vol] 12.1 g/dL 12.0-15.0 [facility] [place] Work Phone: Blood lymphocytes/100 leukoc yteson 08-25-2021 Lymphocytes/100 WBC (Bld) 25.8 % 19-41 [facility] [place] Work Phone: Blood monocytes/100 leukocyt eson 08-25-2021 Monocytes/100 WBC (Bld) 8.9 % 0-10 [facility] Work Phone: Blood platelet mean volumeon 08-25-2021 Platelet mean volume (Bld) [Entitic vol] 10.4 fL 6.2-12.0 [facility] [place] Work Phone: Culture, urineon 08-25-2021 Bacteria identified Cx Nom (U) Mixed Gram Pos & Gram Neg Org [facility] [place] Work Phone: Determination of erythrocyte mean corpuscular volume (MCV)on 08-25-2021 MCV (RBC) [Entitic vol] 83.3 fL 81-99 [facility] Work Phone: Erythrocyte sedimentation ra david 08-25-2021 ESR (Bld) [Velocity] 39 mm/h 0-[address] [facility] [facility] Work [facility]: Hematocrit Auto (Bld) [Volum e fraction]on 08-25-2021 Hematocrit (Bld) [Volume fraction] 37.4 % 37-47 [facility] [place] Work Phone: Laboratory - Chemistry and C hemistry - challengeon 08-25-2021 ALP [Catalytic activity/Vol] 44 U/L 45-117 [facility] [place] Work Phone: ALT [Catalytic activity/Vol] 38 U/L 13-56 [facility] [place] Work Phone: CO2 [Moles/Vol] 22.0 mmol/L 21.0-32.0 [facility] [place] Work Phone: Globulin (S) [Mass/Vol] 4.3 g/dL 2.2-4.2 [facility] Work Phone: Urea nitrogen/Creatinine [Mass ratio] 26.5 mg/mg 10-20 [facility] [place] Work Phone: Laboratory - Hematology and Cell countson 08-25-2021 Erythrocyte distribution width (RBC) [Entitic vol] 39.4 fL 35.1-43.9 [facility] Work Phone: Erythrocyte distribution width (RBC) [Ratio] 13.1 % 11.6-14.6 [facility] [place] Work Phone: Immature granulocytes/100 WBC (Bld) 0.500 % 0.0-0.9 [facility] [place] Work Phone: Comment on above: IG% - Immature Granu locytes (promyelocytes, myelocytes and metamyelocytes) > 1% indicates that a LEFT SHIFT is Present. MCH (RBC) [Entitic mass] 26.9 pg 27.0-32.0 [facility] [place] Work Phone: Nucleated RBC/100 WBC (Bld) [Ratio] 0 % 0-5 [facility] [place] Work Phone: MCHC Auto (RBC) [Mass/Vol]on 08-25-2021 MCHC (RBC) [Mass/Vol] 32.4 g/dL 32-36 [facility] Work Phone: No Panel Informationon 08-25 Estimated GFR (MDRD) Amer 77 mL/min >60 [facility] [place] Work Phone: Comment on above: GFR Calc Estimated GFR (MDRD) Non-Af Amer 63 mL/min >60 [facility] [place] Work Phone: Comment on above: Non- GFR Calc Thyroid Stimulating Hormone (TSH) 2.17 uIU/mL 0.358-3.74 [facility] [place] Work Phone: Platelets bldon 08-25-2021 Platelets (Bld) [#/Vol] 293 10*3/uL 150-450 [facility] [place] Work Phone: Serum or plasma C reactive p rotein measurement (mass/volume)on 08-25-2021 CRP [Mass/Vol] mg/L 0.0-3.0 [facility] [place] Work Phone: Comment on above: C-Reactive Protein ( CRP) provides useful information for thediagnosis, therapy and monitoring of inflammatory processesand associated diseases. For the evaluation of Relative Riskfor Cardiovascular Disease, a High Sensitivity CRP (HSCRP)should be ordered. Serum or plasma albumin thiago urement (mass/volume)on 08-25-2021 Albumin [Mass/Vol] 3.9 g/dL 3.2-5.0 [facility] Work Phone: Serum or plasma albumin/glob ulin mass ratioon 08-25-2021 Albumin/Globulin [Mass ratio] 0.9 {ratio} 0.9-2.4 [facility] [place] Work Phone: Serum or plasma calcium thiago urement (mass/volume)on 08-25-2021 Calcium [Mass/Vol] 9.4 mg/dL 8.5-10.1 [facility] Work Phone: Serum or plasma creatinine m easurement (mass/volume)on 08-25-2021 Creatinine [Mass/Vol] 0.98 mg/dL 0.55-1.02 [facility] Work Phone: Comment on above: The validity of the calculated GFR & GFRAA in patients over 70 years has not been determined. Clinical correlation is essential. Serum or plasma urea nitroge n measurement (mass/volume)on 08-25-2021 Urea nitrogen [Mass/Vol] 26 mg/dL 7-18 [facility] [place] Work Phone: Thin prep Papanicolaou smear with manual screeningon 08-25-2021 Thin prep Papanicolaou smear with manual screening 31 U/L 15-37 [facility] [place] Work Phone: Thin prep Papanicolaou smear with manual screening 11 5-15 [facility] [place] Work Phone: No Panel Informationon 07-22 Homocysteine 7.4 umol/L 3.2-10.7 [facility] [place] Work Phone: Serum or plasma methylmalona te measurement (moles/volume)on 07-22-2021 Methylmalonate [Moles/Vol] 819 nmol/L 0-378 [facility] [place] Work Phone: Comment on above: Performed at: [address] [id number] Director: Pauline Yang MD, Phone: [phone] Absolute lymphocyte counton 07-20-2021 Lymphocytes Auto (Unsp spec) [#/Vol] 2.36 10*3/uL 0.83-4.51 [facility] [place] Work Phone: Basophil percentageon 2021 Basophils/100 WBC (Bld) 0.4 % 0-1 [facility] Work Phone: [phone] Eosinophils/100 WBC (Bld) 2.3 % 0-5 [facility] [place] Work Phone: Neutrophils (Bld) [#/Vol] 3.7 10*3/uL 2.0-7.7 [facility] [place] Work Phone: Neutrophils/100 WBC (Bld) 54.5 % 47-70 [facility] [place] Work Phone: [phone] WBC (Bld) [#/Vol] 6.9 10*3/uL 4.4-11.0 [facility] Work Phone: Blood erythrocytes count (nu mber/volume)on 07-20-2021 RBC (Bld) [#/Vol] 4.01 10*6/uL [facility].2-5.[facility]: Blood hemoglobin measurement (mass/volume)on 07-20-2021 Hemoglobin (Bld) [Mass/Vol] 10.9 g/dL 12.0-15.0 [facility] [place] Work Phone: [phone] Blood lymphocytes/100 leukoc yteson 07-20-2021 Lymphocytes/100 WBC (Bld) 34.4 % 19-41 [facility] [place] Work Phone: Blood monocytes/100 leukocyt eson 07-20-2021 Monocytes/100 WBC (Bld) 8.3 % 0-10 [facility] Work Phone: Blood platelet mean volumeon 07-20-2021 Platelet mean volume (Bld) [Entitic vol] 10.5 fL 6.2-12.0 [facility] [place] Work Phone: Determination of erythrocyte mean corpuscular volume (MCV)on 07-20-2021 MCV (RBC) [Entitic vol] 83.5 fL 81-99 [facility] Work Phone: Hematocrit Auto (Bld) [Volum e fraction]on 07-20-2021 Hematocrit (Bld) [Volume fraction] 33.5 % 37-47 [facility] [place] Work Phone: Hemoglobin in reticulocytes (mass per reticulocyte)on 07-20-2021 Hemoglobin (Reticulocytes) [Entitic mass] 31.0 pg 30-35 [facility] [place] Work Phone: Iron measurement (mass/mass) on 07-20-2021 Iron (Unsp spec) [Mass/Mass] 44 ug/dL 50-170 [facility] [place] Work Phone: Laboratory - Chemistry and C hemistry - challengeon 07-20-2021 Cobalamin (Vitamin B12) [Mass/Vol] 299 pg/mL 211-911 [facility] [place] Work Phone: Laboratory - Hematology and Cell countson 07-20-2021 Erythrocyte distribution width (RBC) [Entitic vol] 43.0 fL 35.1-43.9 [facility] Work Phone: Erythrocyte distribution width (RBC) [Ratio] 14.1 % 11.6-14.6 [facility] [place] Work Phone: Immature granulocytes/100 WBC (Bld) 0.100 % 0.0-0.9 [facility] [place] Work Phone: Comment on above: IG% - Immature Granu locytes (promyelocytes, myelocytes and metamyelocytes) > 1% indicates that a LEFT SHIFT is Present. MCH (RBC) [Entitic mass] 27.2 pg 27.0-32.0 [facility] [place] Work Phone: Nucleated RBC/100 WBC (Bld) [Ratio] 0 % 0-5 [facility] [place] Work Phone: MCHC Auto (RBC) [Mass/Vol]on 07-20-2021 MCHC (RBC) [Mass/Vol] 32.5 g/dL 32-36 [facility] Work Phone: [phone] No Panel Informationon 07-20 Immature Reticulocyte Fraction 17.20 % 3.00-15.90 [facility] [place] Work Phone: Reticulocyte Count 2.13 % 0.5-1.5 [facility] Work Phone: Total Iron Binding Capacity 443 ug/dL 250-450 [facility] [place] Work Phone: Platelets bldon 07-20-2021 Platelets (Bld) [#/Vol] 234 10*3/uL 150-450 [facility] [place] Work Phone: Serum or plasma ferritin lizette surement (mass/volume)on 07-20-2021 Ferritin [Mass/Vol] 30 ng/mL 8-252 [facility] Work Phone: Serum or plasma folate measu rement (mass/volume)on 07-20-2021 Folate [Mass/Vol] 11.00 ng/mL 3.1-55.4 [facility] Work Phone: Serum or plasma iron saturat ion measurement (mass fraction)on 07-20-2021 Iron saturation [Mass fraction] 9.9 % 15.0-55.0 [facility] [place] Work Phone: Absolute lymphocyte counton 07-19-2021 Lymphocytes Auto (Unsp spec) [#/Vol] 2.89 10*3/uL 0.83-4.51 [facility] [place] Work Phone: Basophil percentageon 2021 Basophils/100 WBC (Bld) 0.4 % 0-1 [facility] Work Phone: [phone] Chloride [Moles/Vol] 108 mmol/L 98-107 [facility] Work Phone: [phone] Eosinophils/100 WBC (Bld) 1.8 % 0-5 [facility] [place] Work Phone: [phone] Glucose [Mass/Vol] 140 mg/dL 74-106 [facility] Work Phone: Comment on above: Fasting Glucose resu lt greater than or equal to 126 mg/dL suggests DIABETES MELLITUS per A.D.A. criteria. Neutrophils (Bld) [#/Vol] 4.7 10*3/uL 2.0-7.7 [facility] [place] Work Phone: [phone] Neutrophils/100 WBC (Bld) 55.6 % 47-70 [facility] [place] Work Phone: Potassium [Moles/Vol] 4.0 mmol/L 3.5-5.1 [facility] Work Phone: [phone] Sodium [Moles/Vol] 138 mmol/L 136-145 [facility] Work Phone: [phone] WBC (Bld) [#/Vol] 8.4 10*3/uL 4.4-11.0 [facility] Work Phone: Blood erythrocytes count (nu mber/volume)on 07-19-2021 RBC (Bld) [#/Vol] 4.11 10*6/uL 4.2-5.4 [facility] Work Phone: [phone] Blood hemoglobin measurement (mass/volume)on 07-19-2021 Hemoglobin (Bld) [Mass/Vol] 10.8 g/dL 12.0-15.0 [facility] [place] Work Phone: [phone] Blood lymphocytes/100 leukoc yteson 07-19-2021 Lymphocytes/100 WBC (Bld) 34.5 % 19-41 [facility] [place] Work Phone: [phone] Blood monocytes/100 leukocyt eson 07-19-2021 Monocytes/100 WBC (Bld) 7.5 % 0-10 [facility] Work Phone: Blood platelet mean volumeon 07-19-2021 Platelet mean volume (Bld) [Entitic vol] 10.4 fL 6.2-12.0 [facility] [place] Work Phone: Culture, urineon 07-19-2021 Bacteria identified Cx Nom (U) Escherichia coli [facility] [place] Work Phone: Determination of erythrocyte mean corpuscular volume (MCV)on 07-19-2021 MCV (RBC) [Entitic vol] 83.0 fL 81-99 [facility] Work Phone: Hematocrit Auto (Bld) [Volum e fraction]on 07-19-2021 Hematocrit (Bld) [Volume fraction] 34.1 % 37-47 [facility] [place] Work Phone: Laboratory - Chemistry and C hemistry - challengeon 07-19-2021 CO2 [Moles/Vol] 26.0 mmol/L 21.0-32.0 [facility] [place] Work Phone: Urea nitrogen/Creatinine [Mass ratio] 15.8 mg/mg 10-20 [facility] [place] Work Phone: Laboratory - Hematology and Cell countson 07-19-2021 Erythrocyte distribution width (RBC) [Entitic vol] 42.5 fL 35.1-43.9 [facility] Work Phone: Erythrocyte distribution width (RBC) [Ratio] 14.1 % 11.6-14.6 [facility] [place] Work Phone: Immature granulocytes/100 WBC (Bld) 0.200 % 0.0-0.9 [facility] [place] Work Phone: Comment on above: IG% - Immature Granu locytes (promyelocytes, myelocytes and metamyelocytes) > 1% indicates that a LEFT SHIFT is Present. MCH (RBC) [Entitic mass] 26.3 pg 27.0-32.0 [facility] [place] Work Phone: Nucleated RBC/100 WBC (Bld) [Ratio] 0 % 0-5 [facility] [place] Work Phone: Laboratory - Microbiology an d Antimicrobial susceptibilityon 07-19-2021 Bacteria identified Cx Nom (Bld) No growth in 5 days. [facility] [place] Work Phone: MCHC Auto (RBC) [Mass/Vol]on 07-19-2021 MCHC (RBC) [Mass/Vol] 31.7 g/dL 32-36 [facility] Work Phone: No Panel Informationon 07-19 Estimated GFR (MDRD) Amer 65 mL/min >60 [facility] [place] Work Phone: Comment on above: GFR Calc Estimated GFR (MDRD) Non-Af Amer 53 mL/min >60 [facility] [place] Work Phone: Comment on above: Non- GFR Calc Platelets bldon 07-19-2021 Platelets (Bld) [#/Vol] 257 10*3/uL 150-450 [facility] [place] Work Phone: Serum or plasma calcium thiago urement (mass/volume)on 07-19-2021 Calcium [Mass/Vol] 9.6 mg/dL 8.5-10.1 [facility] Work Phone: Serum or plasma creatinine m easurement (mass/volume)on 07-19-2021 Creatinine [Mass/Vol] 1.14 mg/dL 0.55-1.02 [facility] Work Phone: Comment on above: The validity of the calculated GFR & GFRAA in patients over 70 years has not been determined. Clinical correlation is essential. Serum or plasma urea nitroge n measurement (mass/volume)on 07-19-2021 Urea nitrogen [Mass/Vol] 18 mg/dL 7-18 [facility] [place] Work Phone: Thin prep Papanicolaou smear with manual screeningon 07-19-2021 Thin prep Papanicolaou smear with manual screening 4 5-15 [facility] [place] Work Phone: [phone] Absolute lymphocyte counton 06-23-2021 Lymphocytes Auto (Unsp spec) [#/Vol] 2.66 10*3/uL 0.83-4.51 [facility] [place] Work Phone: Basophil percentageon 2021 Basophils/100 WBC (Bld) 0.5 % 0-1 [facility] Work Phone: [phone] Bilirubin [Mass/Vol] 0.50 mg/dL 0.20-1.00 [facility] Work Phone: Comment on above: For patients on eltr ombopag therapy, use of Dimension Mcrae TBIL is not recommended. Chloride [Moles/Vol] 101 mmol/L 98-107 [facility] Work Phone: [phone] Eosinophils/100 WBC (Bld) 1.5 % 0-5 [facility] [place] Work Phone: [phone] Glucose [Mass/Vol] 252 mg/dL 74-106 [facility] Work Phone: Comment on above: Glucose result great er than or equal to 200 mg/dLsuggests DIABETES MELLITUS per A.D.A. criteria. Neutrophils (Bld) [#/Vol] 5.2 10*3/uL 2.0-7.7 [facility] [place] Work Phone: [phone] Neutrophils/100 WBC (Bld) 58.4 % 47-70 [facility] [place] Work Phone: [phone] Potassium [Moles/Vol] 4.1 mmol/L 3.5-5.1 [facility] Work Phone: [phone] Protein [Mass/Vol] 7.9 g/dL 6.4-8.2 [facility] Work Phone: Sodium [Moles/Vol] 137 mmol/L 136-145 [facility] Work Phone: [phone] WBC (Bld) [#/Vol] 8.9 10*3/uL 4.4-11.0 [facility] Work Phone: Blood erythrocytes count (nu mber/volume)on 06-23-2021 RBC (Bld) [#/Vol] 4.77 10*6/uL 4.2-5.4 [facility] Work Phone: Blood hemoglobin measurement (mass/volume)on 06-23-2021 Hemoglobin (Bld) [Mass/Vol] 13.1 g/dL 12.0-15.0 [facility] [place] Work Phone: Blood lymphocytes/100 leukoc yteson 06-23-2021 Lymphocytes/100 WBC (Bld) 30.0 % 19-41 [facility] [place] Work Phone: Blood monocytes/100 leukocyt eson 06-23-2021 Monocytes/100 WBC (Bld) 9.3 % 0-10 [facility] Work Phone: Blood platelet mean volumeon 06-23-2021 Platelet mean volume (Bld) [Entitic vol] 10.2 fL 6.2-12.0 [facility] [place] Work Phone: Determination of erythrocyte mean corpuscular volume (MCV)on 06-23-2021 MCV (RBC) [Entitic vol] 80.5 fL 81-99 [facility] Work Phone: Hematocrit Auto (Bld) [Volum e fraction]on 06-23-2021 Hematocrit (Bld) [Volume fraction] 38.4 % 37-47 [facility] [place] Work Phone: Laboratory - Chemistry and C hemistry - challengeon 06-23-2021 ALP [Catalytic activity/Vol] 50 U/L 45-117 [facility] [place] Work Phone: ALT [Catalytic activity/Vol] 42 U/L 13-56 [facility] [place] Work Phone: CO2 [Moles/Vol] 28.0 mmol/L 21.0-32.0 [facility] [facility] [place] Work Phone: Globulin (S) [Mass/Vol] 4.1 g/dL 2.2-4.2 [facility] Work Phone: Urea nitrogen/Creatinine [Mass ratio] 16.0 mg/mg 10-20 [facility] [place] Work Phone: Laboratory - Hematology and Cell countson 06-23-2021 Erythrocyte distribution width (RBC) [Entitic vol] 40.6 fL 35.1-43.9 [facility] Work Phone: Erythrocyte distribution width (RBC) [Ratio] 13.9 % 11.6-14.6 [facility] [place] Work Phone: Immature granulocytes/100 WBC (Bld) 0.300 % 0.0-0.9 [facility] [place] Work Phone: Comment on above: IG% - Immature Granu locytes (promyelocytes, myelocytes and metamyelocytes) > 1% indicates that a LEFT SHIFT is Present. MCH (RBC) [Entitic mass] 27.5 pg 27.0-32.0 [facility] [place] Work Phone: Nucleated RBC/100 WBC (Bld) [Ratio] 0 % 0-5 [facility] [place] Work Phone: MCHC Auto (RBC) [Mass/Vol]on 06-23-2021 MCHC (RBC) [Mass/Vol] 34.1 g/dL 32-36 [facility] Work Phone: No Panel Informationon 06-23 Estimated GFR (MDRD) Amer 58 mL/min >60 [facility] [place] Work Phone: Comment on above: GFR Calc Estimated GFR (MDRD) Non-Af Amer 48 mL/min >60 [facility] [place] Work Phone: Comment on above: Non- GFR Calc Thyroid Stimulating Hormone (TSH) 4.89 uIU/mL 0.358-3.74 [facility] [place] Work Phone: Platelets bldon 06-23-2021 Platelets (Bld) [#/Vol] 274 10*3/uL 150-450 [facility] [place] Work Phone: Serum or plasma albumin thiago urement (mass/volume)on 06-23-2021 Albumin [Mass/Vol] 3.8 g/dL 3.2-5.0 [facility] Work Phone: Serum or plasma albumin/glob ulin mass ratioon 06-23-2021 Albumin/Globulin [Mass ratio] 0.9 {ratio} 0.9-2.4 [facility] [place] Work Phone: Serum or plasma calcium thiago urement (mass/volume)on 06-23-2021 Calcium [Mass/Vol] 8.9 mg/dL 8.5-10.1 [facility] Work Phone: Serum or plasma creatinine m easurement (mass/volume)on 06-23-2021 Creatinine [Mass/Vol] 1.25 mg/dL 0.55-1.02 [facility] Work Phone: Comment on above: The validity of the calculated GFR & GFRAA in patients over 70 years has not been determined. Clinical correlation is essential. Serum or plasma urea nitroge n measurement (mass/volume)on 06-23-2021 Urea nitrogen [Mass/Vol] 20 mg/dL 7-18 [facility] [place] Work Phone: Thin prep Papanicolaou smear with manual screeningon 06-23-2021 Thin prep Papanicolaou smear with manual screening 32 U/L 15-37 [facility] [place] Work Phone: Thin prep Papanicolaou smear with manual screening 8 5-15 [facility] [place] Work Phone: Basophil percentageon 2021 Cholesterol [Mass/Vol] 126 mg/dL <200 [place] Work Phone: Comment on above: <200 mg/dL Desirable 200-240 mg/dL Borderline >240 mg/dL High Risk Triglyceride [Mass/Vol] 145 mg/dL <199 [facility] Work Phone: Comment on above: The drugs N-Acetylcy steine and Metamizole may falsely depress this assay.Serum Triglycerides Reference Interval Normal <150 mg/dL Borderline high 150 - 199 mg/dL High 200 - 499 mg/dL Very High > or = 500 mg/dL Laboratory - Chemistry and C hemistry - challengeon 06-09-2021 Cobalamin (Vitamin B12) [Mass/Vol] 392 pg/mL 211-911 [facility] [place] Work Phone: Free T4 [Mass/Vol] 0.98 ng/dL 0.76-1.46 [facility] Work Phone: Laboratory - Hematology and Cell countson 06-09-2021 HbA1c (Bld) [Mass fraction] 9.4 % [facility] [place] Work Phone: No Panel Informationon 06-09 Thyroid Stimulating Hormone (TSH) 2.37 uIU/mL 0.358-3.74 [facility] [place] Work Phone: Vitamin D 25-Hydroxy 21.5 ng/mL [facility] Work Phone: Comment on above: Vitamin D 25(OH) Sta tus Range Deficiency <20 ng/mL (50nmol/L) Insufficiency 20 - 30 ng/mL (50 - 75 nmol/L) Sufficiency 30 - 100 ng/mL (75 - 250 nmol/L) Toxicity >100 ng/mL (>250 nmol/L) Serum or plasma cholesterol in HDL measurement (mass/volume)on 06-09-2021 Cholesterol in HDL [Mass/Vol] 41 mg/dL >40 [facility] [place] Work Phone: Comment on above: The drugs N-Acetylcy steine and Metamizole may falsely depress this assay. Reference Range HDL <40 mg/dL Low HDL Cholesterol HDL >or= 60 mg/dL High HDL Cholesterol Serum or plasma cholesterol in VLDL measurement (mass/volume)on 06-09-2021 Cholesterol in VLDL [Mass/Vol] 29 mg/dL 5-40 [facility] [place] Work Phone: Serum or plasma low density lipoprotein (LDL) cholesterol measurement (mass/volume)on 06-09-2021 Cholesterol in LDL [Mass/Vol] 56 mg/dL 0-130 [facility] [place] Work Phone: Bacteria identified Cx Nom ( Wound)on 05-18-2021 Wound Culture Meth. resistant Staph. aureus [facility] [place] Work Phone: Gram stain for investigation of transfusion reactionon 05-18-2021 Microscopic observation Gram stain Nom (Unsp spec) [facility] [place] Work Phone: No Panel Informationon 05-18 Methicillin-Resist S.aureus DNA PCR Positive Negative [facility] [place] Work Phone: Staphylococcus aureus DNA de tection by probe and target amplification methodon 05-18-2021 S. aureus DNA EMILY+probe Ql (Unsp spec) Positive Negative [facility] [place] Work Phone: Absolute lymphocyte counton 05-17-2021 Lymphocytes Auto (Unsp spec) [#/Vol] 2.79 10*3/uL 0.83-4.51 [facility] [place] Work Phone: Basophil percentageon 2021 Basophils/100 WBC (Bld) 0.4 % 0-1 [facility] Work Phone: Chloride [Moles/Vol] 104 mmol/L 98-107 [facility] Work Phone: Eosinophils/100 WBC (Bld) 1.6 % 0-5 [facility] [place] Work Phone: Glucose [Mass/Vol] 227 mg/dL 74-106 [facility] Work Phone: Comment on above: Glucose result great er than or equal to 200 mg/dLsuggests DIABETES MELLITUS per A.D.A. criteria. Neutrophils (Bld) [#/Vol] 4.7 10*3/uL 2.0-7.7 [facility] [place] Work Phone: Neutrophils/100 WBC (Bld) 55.4 % 47-70 [facility] [place] Work Phone: Potassium [Moles/Vol] 4.2 mmol/L 3.5-5.1 [facility] Work Phone: Sodium [Moles/Vol] 139 mmol/L 136-145 [facility] Work Phone: WBC (Bld) [#/Vol] 8.5 10*3/uL 4.4-11.0 [facility] Work Phone: Blood erythrocytes count (nu mber/volume)on 05-17-2021 RBC (Bld) [#/Vol] 4.70 10*6/uL 4.2-5.[facility]: Blood hemoglobin measurement (mass/volume)on 05-17-2021 Hemoglobin (Bld) [Mass/Vol] 12.5 g/dL 12.0-15.0 [facility] [place] Work Phone: Blood lymphocytes/100 leukoc yteson 05-17-2021 Lymphocytes/100 WBC (Bld) 32.7 % 19-41 [facility] [place] Work Phone: Blood monocytes/100 leukocyt eson 05-17-2021 Monocytes/100 WBC (Bld) 9.5 % 0-10 [facility] Work Phone: Blood platelet mean volumeon 05-17-2021 Platelet mean volume (Bld) [Entitic vol] 10.1 fL 6.2-12.0 [facility] [place] Work Phone: Determination of erythrocyte mean corpuscular volume (MCV)on 05-17-2021 MCV (RBC) [Entitic vol] 80.6 fL 81-99 [facility] Work Phone: Hematocrit Auto (Bld) [Volum e fraction]on 05-17-2021 Hematocrit (Bld) [Volume fraction] 37.9 % 37-47 [facility] [place] Work Phone: Laboratory - Chemistry and C hemistry - challengeon 05-17-2021 CO2 [Moles/Vol] 29.0 mmol/L 21.0-32.0 [facility] [place] Work Phone: Urea nitrogen/Creatinine [Mass ratio] 20.2 mg/mg 10-20 [facility] [place] Work Phone: Laboratory - Hematology and Cell countson 05-17-2021 Erythrocyte distribution width (RBC) [Entitic vol] 41.0 fL 35.1-43.9 [facility] Work Phone: Erythrocyte distribution width (RBC) [Ratio] 14.2 % 11.6-14.6 [facility] [place] Work Phone: Immature granulocytes/100 WBC (Bld) 0.400 % 0.0-0.9 [facility] [place] Work Phone: Comment on above: IG% - Immature Granu locytes (promyelocytes, myelocytes and metamyelocytes) > 1% indicates that a LEFT SHIFT is Present. MCH (RBC) [Entitic mass] 26.6 pg 27.0-32.0 [facility] [place] Work Phone: Nucleated RBC/100 WBC (Bld) [Ratio] 0 % 0-5 [facility] [place] Work Phone: Laboratory - Microbiology an d Antimicrobial susceptibilityon 05-17-2021 Bacteria identified Cx Nom (Bld) No growth in 5 days. [facility] [place] Work Phone: MCHC Auto (RBC) [Mass/Vol]on 05-17-2021 MCHC (RBC) [Mass/Vol] 33.0 g/dL 32-36 [facility] Work Phone: No Panel Informationon 05-17 Estimated GFR (MDRD) Amer 62 mL/min >60 [facility] [place] Work Phone: Comment on above: GFR Calc Estimated GFR (MDRD) Non-Af Amer 51 mL/min >60 [facility] [place] Work Phone: Comment on above: Non- GFR Calc Platelets bldon 05-17-2021 Platelets (Bld) [#/Vol] 302 10*3/uL 150-450 [facility] [place] Work Phone: Serum or plasma calcium thiago urement (mass/volume)on 05-17-2021 Calcium [Mass/Vol] 9.3 mg/dL 8.5-10.1 [facility] Work Phone: Serum or plasma creatinine m easurement (mass/volume)on 05-17-2021 Creatinine [Mass/Vol] 1.19 mg/dL 0.55-1.02 [facility] Work Phone: Comment on above: The validity of the calculated GFR & GFRAA in patients over 70 years has not been determined. Clinical correlation is essential. Serum or plasma urea nitroge n measurement (mass/volume)on 05-17-2021 Urea nitrogen [Mass/Vol] 24 mg/dL 7-18 [facility] [place] Work Phone: Thin prep Papanicolaou smear with manual screeningon 05-17-2021 Thin prep Papanicolaou smear with manual screening 6 5-15 [facility] [place] Work Phone: Laboratory - Hematology and Cell countson 05-12-2021 HbA1c (Bld) [Mass fraction] 10.2 % [facility] [place] Work Phone: Absolute lymphocyte counton 04-14-2021 Lymphocytes Auto (Unsp spec) [#/Vol] 3.45 10*3/uL 0.83-4.51 [facility] [place] Work Phone: Bacteria identified Cx Nom ( Wound)on 04-14-2021 Wound Culture Meth. resistant Staph. aureus [facility] [place] Work Phone: Basophil percentageon 2021 Basophils/100 WBC (Bld) 0.4 % 0-1 [facility] Work Phone: Chloride [Moles/Vol] 102 mmol/L 98-107 [facility] Work Phone: Eosinophils/100 WBC (Bld) 1.6 % 0-5 [facility] [place] Work Phone: Glucose [Mass/Vol] 279 mg/dL 74-106 [facility] Work Phone: Comment on above: Glucose result great er than or equal to 200 mg/dLsuggests DIABETES MELLITUS per A.D.A. criteria. Neutrophils (Bld) [#/Vol] 6.7 10*3/uL 2.0-7.7 [facility] [place] Work Phone: Neutrophils/100 WBC (Bld) 58.3 % 47-70 [facility] [place] Work Phone: Potassium [Moles/Vol] 4.5 mmol/L 3.5-5.1 [facility]: Sodium [Moles/Vol] 137 mmol/L 136-145 [facility] Work Phone: WBC (Bld) [#/Vol] 11.4 10*3/uL 4.4-11.0 [facility] Work Phone: Blood erythrocytes count (nu mber/volume)on 04-14-2021 RBC (Bld) [#/Vol] 4.66 10*6/uL 4.2-5.4 [facility] Work Phone: Blood hemoglobin measurement (mass/volume)on 04-14-2021 Hemoglobin (Bld) [Mass/Vol] 12.0 g/dL 12.0-15.0 [facility] [place] Work Phone: [phone] Blood lymphocytes/100 leukoc yteson 04-14-2021 Lymphocytes/100 WBC (Bld) 30.3 % 19-41 [facility] [place] Work Phone: Blood monocytes/100 leukocyt eson 04-14-2021 Monocytes/100 WBC (Bld) 9.0 % 0-10 [facility] Work Phone: Blood platelet mean volumeon 04-14-2021 Platelet mean volume (Bld) [Entitic vol] 10.9 fL 6.2-12.0 [facility] [place] Work Phone: [phone] Determination of erythrocyte mean corpuscular volume (MCV)on 04-14-2021 MCV (RBC) [Entitic vol] 82.2 fL 81-99 [facility] Work Phone: Erythrocyte sedimentation ra david 04-14-2021 ESR (Bld) [Velocity] 37 mm/h 0-[address] [facility] Work [facility]: Gram stain for investigation of transfusion reactionon 04-14-2021 Microscopic observation Gram stain Nom (Unsp spec) [facility] [place] Work Phone: Hematocrit Auto (Bld) [Volum e fraction]on 04-14-2021 Hematocrit (Bld) [Volume fraction] 38.3 % 37-47 [facility] [place] Work Phone: Laboratory - Chemistry and C hemistry - challengeon 04-14-2021 CO2 [Moles/Vol] 29.0 mmol/L 21.0-32.0 [facility] [place] Work Phone: Urea nitrogen/Creatinine [Mass ratio] 19.8 mg/mg 10-20 [facility] [place] Work Phone: Laboratory - Hematology and Cell countson 04-14-2021 Erythrocyte distribution width (RBC) [Entitic vol] 40.5 fL 35.1-43.9 [facility] Work Phone: Erythrocyte distribution width (RBC) [Ratio] 13.7 % 11.6-14.6 [facility] [place] Work Phone: Immature granulocytes/100 WBC (Bld) 0.400 % 0.0-0.9 [facility] [place] Work Phone: Comment on above: IG% - Immature Granu locytes (promyelocytes, myelocytes and metamyelocytes) > 1% indicates that a LEFT SHIFT is Present. MCH (RBC) [Entitic mass] 25.8 pg 27.0-32.0 [facility] [place] Work Phone: Nucleated RBC/100 WBC (Bld) [Ratio] 0 % 0-5 [facility] [place] Work Phone: Laboratory - Microbiology an d Antimicrobial susceptibilityon 04-14-2021 Bacteria identified Cx Nom (Bld) No growth in 5 days. [facility] [place] Work Phone: MCHC Auto (RBC) [Mass/Vol]on 04-14-2021 MCHC (RBC) [Mass/Vol] 31.3 g/dL 32-36 [facility] Work Phone: No Panel Informationon 04-14 Estimated GFR (MDRD) Amer 70 mL/min >60 [facility] [place] Work Phone: Comment on above: GFR Calc Estimated GFR (MDRD) Non-Af Amer 58 mL/min >60 [facility] [place] Work Phone: Comment on above: Non- GFR Calc Methicillin-Resist S.aureus DNA PCR Positive Negative [facility] [place] Work Phone: Thyroid Stimulating Hormone (TSH) 4.56 uIU/mL 0.358-3.74 [facility] [place] Work Phone: Platelets bldon 04-14-2021 Platelets (Bld) [#/Vol] 305 10*3/uL 150-450 [facility] [place] Work Phone: Serum or plasma C reactive p rotein measurement (mass/volume)on 04-14-2021 CRP [Mass/Vol] 13.60 mg/L 0.0-3.0 [facility] [place] Work Phone: Comment on above: C-Reactive Protein ( CRP) provides useful information for thediagnosis, therapy and monitoring of inflammatory processesand associated diseases. For the evaluation of Relative Riskfor Cardiovascular Disease, a High Sensitivity CRP (HSCRP)should be ordered. Serum or plasma calcium thiago urement (mass/volume)on 04-14-2021 Calcium [Mass/Vol] 8.7 mg/dL 8.5-10.1 [facility] Work Phone: Serum or plasma creatinine m easurement (mass/volume)on 04-14-2021 Creatinine [Mass/Vol] 1.06 mg/dL 0.55-1.02 [facility] Work Phone: Comment on above: The validity of the calculated GFR & GFRAA in patients over 70 years has not been determined. Clinical correlation is essential. Serum or plasma urea nitroge n measurement (mass/volume)on 04-14-2021 Urea nitrogen [Mass/Vol] 21 mg/dL 7-18 [facility] [place] Work Phone: Staphylococcus aureus DNA de tection by probe and target amplification methodon 04-14-2021 S. aureus DNA EMILY+probe Ql (Unsp spec) Positive Negative [facility] [place] Work Phone: Thin prep Papanicolaou smear with manual screeningon 04-14-2021 Thin prep Papanicolaou smear with manual screening 6 5-15 [facility] [place] Work Phone: Absolute lymphocyte counton 03-10-2021 Lymphocytes Auto (Unsp spec) [#/Vol] 4.46 10*3/uL 0.83-4.51 [facility] [place] Work Phone: Basophil percentageon 2020 Bilirubin [Mass/Vol] 0.60 mg/dL 0.20-1.00 [facility] Work Phone: Comment on above: For patients on eltr ombopag therapy, use of Dimension Mcrae TBIL is not recommended. Chloride [Moles/Vol] 101 mmol/L 98-107 [facility] Work Phone: Eosinophils/100 WBC (Bld) 1.5 % 0-5 [facility] [place] Work Phone: Glucose [Mass/Vol] 272 mg/dL 74-106 [facility] Work Phone: Comment on above: Glucose result great er than or equal to 200 mg/dLsuggests DIABETES MELLITUS per A.D.A. criteria.Please note revised GLUCOSE reference range effective 2017. Neutrophils (Bld) [#/Vol] 6.7 10*3/uL 2.0-7.7 [facility] [place] Work Phone: [phone] Potassium [Moles/Vol] 3.9 mmol/L 3.5-5.1 [facility] Work Phone: [phone] Protein [Mass/Vol] 7.8 g/dL 6.4-8.2 [facility] Work Phone: [phone] Sodium [Moles/Vol] 138 mmol/L 136-145 [facility] Work Phone: WBC (Bld) [#/Vol] 12.5 10*3/uL 4.4-11.0 [facility] Work Phone: Blood erythrocytes count (nu mber/volume)on 03-10-2021 RBC (Bld) [#/Vol] 4.98 10*6/uL 4.2-5.4 [facility] Work Phone: Blood hemoglobin measurement (mass/volume)on 03-10-2021 Hemoglobin (Bld) [Mass/Vol] 13.1 g/dL 12.0-15.0 [facility] [place] Work Phone: Blood lymphocytes/100 leukoc yteson 03-10-2021 Lymphocytes/100 WBC (Bld) 35.8 % 19-41 [facility] [place] Work Phone: Blood monocytes/100 leukocyt eson 03-10-2021 Monocytes/100 WBC (Bld) 7.5 % 0-10 [facility] Work Phone: Blood platelet mean volumeon 03-10-2021 Platelet mean volume (Bld) [Entitic vol] 10.1 fL 6.2-12.0 [facility] [place] Work Phone: Determination of erythrocyte mean corpuscular volume (MCV)on 03-10-2021 MCV (RBC) [Entitic vol] 79.5 fL 81-99 [facility] Work Phone: Hematocrit Auto (Bld) [Volum e fraction]on 03-10-2021 Hematocrit (Bld) [Volume fraction] 39.6 % 37-47 [facility] [place] Work Phone: Laboratory - Chemistry and C hemistry - challengeon 03-10-2021 ALP [Catalytic activity/Vol] 67 U/L 45-117 [facility] [place] Work Phone: ALT [Catalytic activity/Vol] 82 U/L 13-56 [facility] [place] Work Phone: CO2 [Moles/Vol] 28.0 mmol/L 21.0-32.0 [facility] [place] Work Phone: Globulin (S) [Mass/Vol] 4.3 g/dL 2.2-4.2 [facility] Work Phone: Urea nitrogen/Creatinine [Mass ratio] 18.6 mg/mg 10-20 [facility] [place] Work Phone: Laboratory - Hematology and Cell countson 03-10-2021 Basophils/100 WBC (Unsp spec) 0.5 % 0-1 [facility] [place] Work Phone: Erythrocyte distribution width (RBC) [Entitic vol] 39.1 fL 35.1-43.9 [facility] Work Phone: Erythrocyte distribution width (RBC) [Ratio] 13.7 % 11.6-14.6 [facility] [place] Work Phone: Immature granulocytes/100 WBC (Bld) 0.900 % 0.0-0.9 [facility] [place] Work Phone: Comment on above: IG% - Immature Granu locytes (promyelocytes, myelocytes and metamyelocytes) > 1% indicates that a LEFT SHIFT is Present. MCH (RBC) [Entitic mass] 26.3 pg 27.0-32.0 [facility] [place] Work Phone: Neutrophils/100 WBC (Bld) 53.8 % 47-70 [facility] [place] Work Phone: Nucleated RBC/100 WBC (Bld) [Ratio] 0 % 0-5 [facility] [place] Work Phone: MCHC Auto (RBC) [Mass/Vol]on 03-10-2021 MCHC (RBC) [Mass/Vol] 33.1 g/dL 32-36 [facility] Work Phone: No Panel Informationon 03-10 Estimated GFR (MDRD) Amer 74 mL/min >60 [facility] [place] Work Phone: Comment on above: GFR Calc Estimated GFR (MDRD) Non-Af Amer 61 mL/min >60 [facility] [place] Work Phone: Comment on above: Non- GFR Calc Thyroid Stimulating Hormone (TSH) 4.63 uIU/mL 0.358-3.74 [facility] [place] Work Phone: Platelets bldon 03-10-2021 Platelets (Bld) [#/Vol] 283 10*3/uL 150-450 [facility] [place] Work Phone: Serum or plasma albumin thiago urement (mass/volume)on 03-10-2021 Albumin [Mass/Vol] 3.5 g/dL 3.2-5.0 [facility] Work Phone: Serum or plasma albumin/glob ulin mass ratioon 03-10-2021 Albumin/Globulin [Mass ratio] 0.8 {ratio} 0.9-2.4 [facility] [place] Work Phone: Serum or plasma calcium thiago urement (mass/volume)on 03-10-2021 Calcium [Mass/Vol] 9.9 mg/dL 8.5-10.1 [facility] Work Phone: Serum or plasma creatinine m easurement (mass/volume)on 03-10-2021 Creatinine [Mass/Vol] 1.02 mg/dL 0.55-1.02 [facility] Work Phone: Comment on above: The validity of the calculated GFR & GFRAA in patients over 70 years has not been determined. Clinical correlation is essential. Serum or plasma urea nitroge n measurement (mass/volume)on 03-10-2021 Urea nitrogen [Mass/Vol] 19 mg/dL 7-18 [facility] [place] Work Phone: Thin prep Papanicolaou smear with manual screeningon 03-10-2021 Thin prep Papanicolaou smear with manual screening 41 U/L 15-37 [facility] [place] Work Phone: Thin prep Papanicolaou smear with manual screening 9 -15 [facility] [place] Work Phone: Otheron 09-19-2006 CONVERTED ELECTRONIC SIGNATURE KIANA THOMAS M.D., PATHOLOGIST (Electronic signature on file) Final Signed Out: 09/19/2006 09:15 [facility] CONVERTED FINAL DIAGNOSIS A&B. RIGHT AND LEFT FALLOPIAN TUBES, PARTIAL EXCISION - TWO SEGMENTS OF UNREMARKABLE FALLOPIAN TUBE, EACH TOTALLY TRANSECTED. C. PLACENTA, MEMBRANES AND UMBILICAL CORD, DELIVERY - ECCENTRIC INSERTION OF UMBILICAL CORD. NO HISTOLOGIC ABNORMALITIES IDENTIFIED. [facility] CONVERTED ORDERING PROVIDER Ordering Provider: FRANSISCO SPARKS [facility] Culture, urine Bacteria identified Cx Nom (U) Escherichia coli [facility] Work Phone: Bacteria identified Cx Nom (U) Mixed Gram Pos & Gram Neg Org [facility] Work Phone: Bacteria identified Cx Nom (U) Positive [facility] Work Phone: Laboratory - Microbiology an d Antimicrobial susceptibility Bacteria identified Cx Nom (Bld) No growth in 5 days. [facility] Work Phone: No Panel Information Respiratory Panel (PCR) [facility] Work Phone: SARS-CoV-2 & FLU Antigen (Rapid) [facility] Work Phone: Vital Signs Date Time Vital Sign Value Performing Clinician Facility 05-02-2024 11:40-0500 Body height 170.[address] Phu Espinoza MD Work Phone: [facility] 05-02-2024 11:40-0500 Body mass index (BMI) [Ratio] 45.4 kg/m2 Dr. Phu Espinoza MD Work Phone: [facility] 05-02-2024 11:40-0500 Body weight 131.[address] Phu Espinoza MD Work Phone: [facility] [place] 05-02-2024 11:40-0500 Diastolic blood pressure 81 mm[Hg] Dr. Phu Espinoza MD Work Phone: [facility] 05-02-2024 11:40-0500 Heart rate 75 /min Dr. Phu Espinoza MD Work Phone: 5(298)543-553023 [address] 05-02-2024 11:40-0500 SaO2% (BldA) [Mass fraction] 97 % Dr. Phu Espinoza MD Work Phone: 9(987)786-372249 [place] [address] 05-02-2024 11:40-0500 Systolic blood pressure 134 mm[Hg] Dr. Phu Espinoza MD Work Phone: 1(749)754-576662 [place] [address] 03-22-2024 13:42-0500 Body mass index (BMI) [Ratio] 45.4 kg/m2 Dr. Phu Espinoza MD Work Phone: 3(944)472-622862 [place] [address] 03-22-2024 13:42-0500 Body temperature 97.3 [degF] Dr. Phu Espinoza MD Work Phone: 7(588)626-054462 [place] [address] 03-22-2024 13:42-0500 Body weight 131.[address] Phu Espinoza MD Work Phone: 4(702)830-348562 [place] [address] 03-22-2024 13:42-0500 Diastolic blood pressure 79 mm[Hg] Dr. Phu Espinoza MD Work Phone: 6(820)864-506462 [place] [address] 03-22-2024 13:42-0500 Heart rate 85 /min Dr. Phu Espinoza MD Work Phone: 9(466)345-117662 [place] [address] 03-22-2024 13:42-0500 Respiratory rate 18 /min Dr. Phu Espinoza MD Work Phone: 8(836)883-904162 [place] [address] 03-22-2024 13:42-0500 SaO2% (BldA) [Mass fraction] 96 % Dr. Phu Espinoza MD Work Phone: 7(043)944-679362 [place] [address] 03-22-2024 13:42-0500 Systolic blood pressure 122 mm[Hg] Dr. Phu Espinoza MD Work Phone: 2(538)880-396762 [place] [address] 03-13-2023 08:55-0500 Body temperature 97.8 [degF] Dr. Phu Espinoza Work Phone: 8(331)907-038049 [place] [address] 03-13-2023 08:55-0500 Diastolic blood pressure 76 mm[Hg] Dr. Phu Espinoza Work Phone: 8(033)635-995762 [place] [address] 03-13-2023 08:55-0500 Heart rate 74 /min Dr. Phu Espinoza Work Phone: 2(046)534-129049 [place] [address] 03-13-2023 08:55-0500 Respiratory rate 16 /min Dr. Phu Espinoza Work Phone: 2(455)037-527049 [place] [address] 03-13-2023 08:55-0500 SaO2% (BldA) [Mass fraction] 97 % Dr. Phu Espinoza Work Phone: 8(325)842-712749 [place] [address] 03-13-2023 08:55-0500 Systolic blood pressure 110 mm[Hg] Dr. Phu Espinoza Work Phone: 8(194)519-668762 [place] [address] 03-13-2023 07:08-0500 Body height 170.[address] Phu Espinoza Work Phone: 2(629)247-948562 [place] [address] 03-13-2023 07:08-0500 Body mass index (BMI) [Ratio] 43.4 kg/m2 Dr. Phu Espinoza Work Phone: 9(245)136-840662 [place] [address] 03-13-2023 07:08-0500 Body weight [address] Phu Espinoza Work Phone: 6(021)607-725962 [place] [address] 03-02-2023 11:10-0500 Body height 170.[address] Phu Espinoza Work Phone: 5(405)775-804662 [place] [address] 03-02-2023 11:10-0500 Body mass index (BMI) [Ratio] 44.1 kg/m2 Dr. Phu Espinoza Work Phone: 0(572)208-930849 [place] [address] 03-02-2023 11:10-0500 Body temperature 98.6 [degF] Dr. Phu Espinoza Work Phone: 3(041)088-091649 [place] [address] 03-02-2023 11:10-0500 Body weight 127.[address] Phu Espinoza Work Phone: 7(488)207-498949 [place] [address] 03-02-2023 11:10-0500 Diastolic blood pressure 91 mm[Hg] Dr. Phu Espinoza Work Phone: 3(923)400-863249 [place] [address] 03-02-2023 11:10-0500 Heart rate 87 /min Dr. Phu Espinoza Work Phone: [facility] [place] 03-02-2023 11:10-0500 SaO2% (BldA) [Mass fraction] 95 % Dr. Phu Espinoza Work Phone: [facility] [place] 03-02-2023 11:10-0500 Systolic blood pressure 154 mm[Hg] Dr. Phu Espinoza Work Phone: [facility] 02-15-2023 14:17-0500 Body mass index (BMI) [Ratio] 43.4 kg/m2 Dr. Phu Espinoza Work Phone: [facility] [place] 02-15-2023 14:17-0500 Body weight 125.[address] Phu Espinoza Work Phone: 2(853)772-460049 [place] [address] 02-15-2023 14:17-0500 Diastolic blood pressure 75 mm[Hg] Dr. Phu Espinoza Work Phone: [facility] [place] 02-15-2023 14:17-0500 Respiratory rate 18 /min Dr. Phu Espinoza Work Phone: [facility] 02-15-2023 14:17-0500 Systolic blood pressure 114 mm[Hg] Dr. Phu Espinoza Work Phone: [facility] [place] 11-17-2022 10:41-0400 Body height 171.[address] Phu Espinoza Work Phone: [facility] [place] 11-17-2022 10:41-0400 Body mass index (BMI) [Ratio] 42.8 kg/m2 Dr. Phu Espinoza Work Phone: [facility] [place] 11-17-2022 10:41-0400 Body temperature 98.4 [degF] Dr. Phu Espinoza Work Phone: [facility] 11-17-2022 10:41-0400 Body weight 125.[address] Phu Espinoza Work Phone: [facility] [place] 11-17-2022 10:41-0400 Diastolic blood pressure 78 mm[Hg] Dr. Phu Espinoza Work Phone: [facility] [place] 11-17-2022 10:41-0400 Heart rate 74 /min Dr. Phu Espinoza Work Phone: [facility] [place] 11-17-2022 10:41-0400 Respiratory rate 18 /min Dr. Phu Espinoza Work Phone: [facility] [place] 11-17-2022 10:41-0400 SaO2% (BldA) [Mass fraction] 98 % Dr. Phu Espinoza Work Phone: [facility] 11-17-2022 10:41-0400 Systolic blood pressure 112 mm[Hg] Dr. Phu Espinoza Work Phone: [facility] 08-17-2022 09:18-0400 Body height 171.[address] Phu Espinoza Work Phone: [facility] [place] 08-17-2022 09:18-0400 Body mass index (BMI) [Ratio] 42.6 kg/m2 Dr. Phu Espinoza Work Phone: [facility] [place] 08-17-2022 09:18-0400 Body temperature 98.4 [degF] Dr. Phu Espinoza Work Phone: [facility] [place] 08-17-2022 09:18-0400 Body weight 125.[address] Phu Espinoza Work Phone: [facility] [place] 08-17-2022 09:18-0400 Diastolic blood pressure 69 mm[Hg] Dr. Phu Espinoza Work Phone: [facility] [place] 08-17-2022 09:18-0400 Heart rate 90 /min Dr. Phu Espinoza Work Phone: [facility] [place] 08-17-2022 09:18-0400 Respiratory rate 20 /min Dr. Phu Espinoza Work Phone: [facility] [place] 08-17-2022 09:18-0400 SaO2% (BldA) [Mass fraction] 94 % Dr. Phu Espinoza Work Phone: [facility] [place] 08-17-2022 09:18-0400 Systolic blood pressure 100 mm[Hg] Dr. Phu Espinoza Work Phone: [facility] [place] 05-11-2022 10:40-0500 Body height 171.[address] Phu Espinoza Work Phone: [facility] [place] 05-11-2022 10:40-0500 Body mass index (BMI) [Ratio] 41.2 kg/m2 Dr. Phu Espinoza Work Phone: [facility] [place] 05-11-2022 10:40-0500 Body temperature 97 [degF] Dr. Phu Espinoza Work Phone: [facility] [place] 05-11-2022 10:40-0500 Body weight 121.[address] Phu Espinoza Work Phone: [facility] [place] 05-11-2022 10:40-0500 Diastolic blood pressure 68 mm[Hg] Dr. Phu Espinoza Work Phone: [facility] [place] 05-11-2022 10:40-0500 Heart rate 76 /min Dr. Phu Espinoza Work Phone: [facility] [place] 05-11-2022 10:40-0500 Respiratory rate 18 /min Dr. Phu Espinoza Work Phone: [facility] [place] 05-11-2022 10:40-0500 SaO2% (BldA) [Mass fraction] 94 % Dr. Phu Espinoza Work Phone: [facility] [place] 05-11-2022 10:40-0500 Systolic blood pressure 96 mm[Hg] Dr. Phu Espinoza Work Phone: [facility] 03-29-2022 10:32-0500 Body temperature 98 [degF] Dr. Phu Espinoza Work Phone: [facility] [place] 03-29-2022 10:32-0500 Diastolic blood pressure 90 mm[Hg] Dr. Phu Espinoza Work Phone: [facility] [place] 03-29-2022 10:32-0500 Heart rate 85 /min Dr. Phu Espinoza Work Phone: [facility] 03-29-2022 10:32-0500 Respiratory rate 20 /min Dr. Phu Espinoza Work Phone: [facility] [place] 03-29-2022 10:32-0500 SaO2% (BldA) [Mass fraction] 99 % Dr. Phu Espinoza Work Phone: [facility] [place] 03-29-2022 10:32-0500 Systolic blood pressure 130 mm[Hg] Dr. Phu Espinoza Work Phone: [facility] [place] 03-25-2022 16:55-0500 Body mass index (BMI) [Ratio] 41.3 kg/m2 Dr. Phu Espinoza Work Phone: 9(685)747-788349 [place] [address] 03-25-2022 16:55-0500 Body temperature 98.2 [degF] Dr. Phu Espinoza Work Phone: 6(363)259-631449 [place] [address] 03-25-2022 16:55-0500 Body weight 121.[address] Phu Espinoza Work Phone: 5(058)264-881349 [place] [address] 03-25-2022 16:55-0500 Diastolic blood pressure 82 mm[Hg] Dr. Phu Espinoza Work Phone: 4(374)574-709049 [place] [address] 03-25-2022 16:55-0500 Heart rate 86 /min Dr. Phu Espinoza Work Phone: 6(015)476-464449 [place] [address] 03-25-2022 16:55-0500 Respiratory rate 18 /min Dr. Phu Espinoza Work Phone: [facility] [place] 03-25-2022 16:55-0500 SaO2% (BldA) [Mass fraction] 99 % Dr. Phu Espinoza Work Phone: [facility] [place] 03-25-2022 16:55-0500 Systolic blood pressure 128 mm[Hg] Dr. Phu Espinoza Work Phone: [facility] [place] 02-05-2022 16:25-0500 Body temperature 98.4 [degF] Dr. Phu Espinoza Work Phone: 6(375)402-497849 [place] [address] Work Phone: 02-05-2022 16:25-0500 Diastolic blood pressure 70 mm[Hg] Dr. Phu Espinoza Work Phone: [facility] [place] Work Phone: 02-05-2022 16:25-0500 Heart rate 70 /min Dr. Phu Espinoza Work Phone: [facility] [place] Work Phone: 02-05-2022 16:25-0500 Respiratory rate 18 /min Dr. Phu Espinoza Work Phone: [facility] [place] Work Phone: 02-05-2022 16:25-0500 SaO2% (BldA) [Mass fraction] 97 % Dr. Phu Espinoza Work Phone: [facility] [place] Work Phone: 02-05-2022 16:25-0500 Systolic blood pressure 122 mm[Hg] Dr. Phu Espinoza Work Phone: [facility] [place] Work Phone: 02-05-2022 06:00-0500 Body weight 117.[address] Phu Espinoza Work Phone: [facility] [place] Work Phone: 02-04-2022 13:05-0500 Body height 170.[address] Phu Espinoza Work Phone: [facility] [place] Work Phone: 02-03-2022 23:14-0500 Body mass index (BMI) [Ratio] 40.9 kg/m2 Dr. Phu Espinoza Work Phone: [facility] [place] Work Phone: 02-03-2022 22:03-0500 Body temperature 100.8 [degF] Dr. Phu Espinoza Work Phone: [facility] [place] Work Phone: 02-03-2022 22:03-0500 Diastolic blood pressure 76 mm[Hg] Dr. Phu Espinoza Work Phone: [facility] Work Phone: 02-03-2022 22:03-0500 Heart rate 100 /min Dr. Phu Espinoza Work Phone: [facility] [place] Work Phone: 02-03-2022 22:03-0500 Respiratory rate 20 /min Dr. Phu Espinoza Work Phone: [facility] [place] Work Phone: 02-03-2022 22:03-0500 SaO2% (BldA) [Mass fraction] 96 % Dr. Phu Espinoza Work Phone: [facility] [place] Work Phone: 02-03-2022 22:03-0500 Systolic blood pressure 118 mm[Hg] Dr. Phu Espinoza Work Phone: [facility] Work Phone: 02-03-2022 18:47-0500 Body height 170.[address] Phu Espinoza Work Phone: [facility] [place] Work Phone: 02-03-2022 18:47-0500 Body mass index (BMI) [Ratio] 39.1 kg/m2 Dr. Phu Espinoza Work Phone: [facility] [place] Work Phone: 02-03-2022 18:47-0500 Body weight 113.[address] Phu Espinoza Work Phone: [facility] [place] Work Phone: 11-24-2021 11:48-0400 Body mass index (BMI) [Ratio] 39.8 kg/m2 Dr. Phu Espinoza Work Phone: [facility] [place] Work Phone: 11-24-2021 11:48-0400 Body weight 117.[address] Phu Espinoza Work Phone: [facility] [place] Work Phone: 11-24-2021 11:48-0400 Diastolic blood pressure 80 mm[Hg] Dr. Phu Espinoza Work Phone: [facility] [place] Work Phone: 11-24-2021 11:48-0400 Heart rate 72 /min Dr. Phu Espinoza Work Phone: [facility] [place] Work Phone: 11-24-2021 11:48-0400 Respiratory rate 16 /min Dr. Phu Espinoza Work Phone: [facility] [place] Work Phone: 11-24-2021 11:48-0400 SaO2% (BldA) [Mass fraction] 98 % Dr. Phu Espinoza Work Phone: [facility] [place] Work Phone: 11-24-2021 11:48-0400 Systolic blood pressure 122 mm[Hg] Dr. Phu Espinoza Work Phone: [facility] [place] Work Phone: 08-09-2021 10:43-0400 Body height 171.[address] Phu Espinoza Work Phone: [facility] Work Phone: 08-09-2021 10:43-0400 Body mass index (BMI) [Ratio] 42 kg/m2 Dr. Phu Espinoza Work Phone: [facility] [place] Work Phone: 08-09-2021 10:43-0400 Body temperature 94.5 [degF] Dr. Phu Espinoza Work Phone: [facility] [place] Work Phone: 08-09-2021 10:43-0400 Body weight 123.[address] Phu Espinoza Work Phone: [facility] Work Phone: 08-09-2021 10:43-0400 Diastolic blood pressure 76 mm[Hg] Dr. Phu Espinoza Work Phone: [facility] [place] Work Phone: 08-09-2021 10:43-0400 Heart rate 71 /min Dr. Phu Espinoza Work Phone: [facility] [place] Work Phone: 08-09-2021 10:43-0400 Respiratory rate 16 /min Dr. Phu Espinoza Work Phone: [facility] Work Phone: 08-09-2021 10:43-0400 SaO2% (BldA) [Mass fraction] 97 % Dr. Phu Espinoza Work Phone: [facility] [place] Work Phone: 08-09-2021 10:43-0400 Systolic blood pressure 110 mm[Hg] Dr. Phu Espinoza Work Phone: [facility] [place] Work Phone: 08-09-2021 10:43-0400 Body height 171.[address] Phu Espinoza Work Phone: [facility] [place] Work Phone: 08-09-2021 10:43-0400 Body mass index (BMI) [Ratio] 42 kg/m2 Dr. Phu Espinoza Work Phone: [facility] [place] Work Phone: 08-09-2021 10:43-0400 Body temperature 94.5 [degF] Dr. Phu Espinoza Work Phone: [facility] Work Phone: 08-09-2021 10:43-0400 Body weight 123.[address] Phu Espinoza Work Phone: [facility] [place] Work Phone: 08-09-2021 10:43-0400 Diastolic blood pressure 76 mm[Hg] Dr. Phu Espinoza Work Phone: [facility] Work Phone: 08-09-2021 10:43-0400 Heart rate 71 /min Dr. Phu Espinoza Work Phone: [facility] Work Phone: 08-09-2021 10:43-0400 Respiratory rate 16 /min Dr. Phu Espinoza Work Phone: [facility] Work Phone: 08-09-2021 10:43-0400 SaO2% (BldA) [Mass fraction] 97 % Dr. Phu Espinoza Work Phone: [facility] [place] Work Phone: 08-09-2021 10:43-0400 Systolic blood pressure 110 mm[Hg] Dr. Phu Espinoza Work Phone: [facility] Work Phone: 06-09-2021 13:46-0400 Body height 171.[address] Phu Espinoza Work Phone: [facility] Work Phone: 06-09-2021 13:46-0400 Body mass index (BMI) [Ratio] 43.7 kg/m2 Dr. Phu Espinoza Work Phone: [facility] Work Phone: 06-09-2021 13:46-0400 Body temperature 96.5 [degF] Dr. Phu Espinoza Work Phone: [facility] Work Phone: 06-09-2021 13:46-0400 Body weight 128.[address] Phu Espinoza Work Phone: [facility] Work Phone: 06-09-2021 13:46-0400 Diastolic blood pressure 88 mm[Hg] Dr. Phu Espinoza Work Phone: [facility] Work Phone: 06-09-2021 13:46-0400 Heart rate 87 /min Dr. Phu Espinoza Work Phone: [facility] Work Phone: 06-09-2021 13:46-0400 Respiratory rate 18 /min Dr. Phu Espinoza Work Phone: [facility] Work Phone: 06-09-2021 13:46-0400 SaO2% (BldA) [Mass fraction] 98 % Dr. Phu Espinoza Work Phone: [facility] Work Phone: 06-09-2021 13:46-0400 Systolic blood pressure 140 mm[Hg] Dr. Phu Espinoza Work Phone: [facility] Work Phone: 05-13-2021 07:19-0500 Body mass index (BMI) [Ratio] 45.2 kg/m2 Dr. Phu Espinoza Work Phone: [facility] Work Phone: 05-13-2021 07:19-0500 Body temperature 96.7 [degF] Dr. Phu Espinoza Work Phone: [facility] Work Phone: 05-13-2021 07:19-0500 Body weight 132.[address] Phu Espinoza Work Phone: [facility] Work Phone: 05-13-2021 07:19-0500 Diastolic blood pressure 88 mm[Hg] Dr. Phu Espinoza Work Phone: [facility] Work Phone: 05-13-2021 07:19-0500 Heart rate 93 /min Dr. Phu Espinoza Work Phone: [facility] [place] Work Phone: 05-13-2021 07:19-0500 Respiratory rate 18 /min Dr. Phu Espinoza Work Phone: [facility] Work Phone: 05-13-2021 07:19-0500 SaO2% (BldA) [Mass fraction] 96 % Dr. Phu Espinoza Work Phone: [facility] Work Phone: 05-13-2021 07:19-0500 Systolic blood pressure 140 mm[Hg] Dr. Phu Espinoza Work Phone: [facility] [place] Work Phone: Encounters Encounter Date Encounter Type Care Provider Facility Start: 07-03-2024 End: 07-03-[address] Phu Espinoza MD Work Phone: [facility] Work Phone: Start: 07-03-2024 End: 07-03-[address] Phu Espinoza MD -Laboratory Work Phone: Start: 07-03-2024 End: 07-03-2024 ambulatory [facility] Facility:[facility] Start: 05-02-2024 End: 05-02-2024 Patient encounter procedure Massiel Gibbons LAB COORDINATOR-C -Laboratory Work Phone: Start: 05-02-2024 End: 05-02-2024 Patient encounter procedure Massiel Gibbons LAB COORDINATOR-C -[facility] Work Phone: Start: 05-02-2024 End: 05-02-2024 ambulatory Massiel Shai Facility:[facility] Start: 05-02-2024 End: 05-02-2024 ambulatory Massiel Shai Facility:[facility] Start: 04-19-2024 End: 04-19-[address] Jodi Agee MD -[facility] Work Phone: Start: 04-19-2024 End: 04-19-2024 ambulatory Jodi Agee Facility:[facility] Start: 03-22-2024 End: 03-22-[address] Jodi Agee MD -[facility] Work Phone: Start: 03-22-2024 End: 03-22-2024 ambulatory Phu Chi Laexis Facility:[facility] Start: 03-04-2024 End: 03-04-2024 ambulatory Phu Chi Alexis Facility:[facility] [place] Start: 02-17-2024 ambulatory Phu Chi Alexis Facility:[facility] Start: 02-16-2024 End: 02-16-2024 ambulatory Massiel Shai Facility:[facility] Start: 01-31-2024 End: 01-31-2024 ambulatory Phu Chi Alexis Facility:[facility] Start: 01-24-2024 End: 01-24-2024 ambulatory Phu Chi Alexis Facility:[facility] Start: 01-10-2024 End: 01-10-2024 ambulatory Phu Chi Alexis Facility:[facility] [place] Start: 11-01-2023 End: 11-01-2023 ambulatory Phu Chi Alexis Facility:[facility] Start: 08-03-2023 End: 08-03-2023 ambulatory Phu Chi Alexis Facility:[facility] Start: 07-12-2023 ambulatory Phu Chi Alexis Facility:[facility] Start: 06-22-2023 End: 06-22-[address] Phu Espinoza Work Phone: [facility] Work Phone: Start: 06-22-2023 End: 06-22-[address] Phu Espinoza Work Phone: [facility]-Radiology, [facility] Work Phone: Start: 04-03-2023 End: 04-03-[address] Phu Espinoza Work Phone: [facility] Work Phone: Start: 04-03-2023 End: 04-03-[address] Phu Espinoza Work Phone: [facility]-Laboratory, Phy Office 3rd Flr Start: 03-13-2023 Non-patient / Non-visit Dr. Sloan Espinoza Work Phone: [facility] Start: 03-13-2023 End: 03-13-2023 Admission to same day surgery center Dr. Phu Espinoza Work Phone: [facility] Work Phone: Start: 03-13-2023 End: 03-13-[address] Phu Espinoza Work Phone: [facility] Work Phone: Start: 03-02-2023 End: 03-02-[address] Phu Espinoza Work Phone: [facility] Work Phone: Start: 03-02-2023 End: 03-02-[address] [facility] Start: 03-02-2023 End: 03-02-[address] Phu Espinoza Work Phone: [facility] Work Phone: Start: 02-15-2023 End: 02-15-[address] Phu Espinoza Work Phone: [facility] Work Phone: Start: 02-08-2023 End: 02-08-[address] Phu Espinoza Work Phone: [facility] Work Phone: Start: 02-08-2023 End: 02-08-[address] Ph[facility] Start: 01-11-2023 End: 01-11-[address] Phu Espinoza Work Phone: [facility] Work Phone: Start: 01-11-2023 End: 01-11-[address] Phu Esp[facility] Work Phone: Start: 01-09-2023 End: 01-09-[address] Phu Espinoza Work Phone: [facility] Work Phone: Start: 01-09-2023 End: 01-09-[address] Phu Esp[facility] Start: 01-03-2023 End: 01-03-[address] Phu Espinoza Work Phone: [facility] 3rd Nmr Start: 11-17-2022 End: 11-17-[address] Phu Espinoza Work Phone: [facility] Work Phone: Start: 08-17-2022 End: 08-17-[address] Phu Espinoza Work Phone: [facility] Work Phone: Start: 08-17-2022 End: 08-17-[address] Phu Espinoza Work Phone: [facility] Work Phone: Start: 08-17-2022 End: 08-17-[address] Phu Espinoza Work Phone: [facility] Work Phone: Start: 06-28-2022 End: 06-28-[address] Phu Espinoza Work Phone: [facility] Work Phone: Start: 06-28-2022 End: 06-28-[address] Phu Espinoza Work Phone: [address] Start: 05-11-2022 End: 05-11-[address] Phu Espinoza Work Phone: [facility] Start: 03-29-2022 End: 03-29-[address] Phu Espinoza Work Phone: [facility] Start: 03-25-2022 End: 03-25-[address] Phu Espinoza Work Phone: [facility] Start: 02-08-2022 End: 02-08-[address] Phu Espinoza Work Phone: [facility] Work Phone: Start: 02-08-2022 End: 02-08-[address] Phu [facility] Start: 02-05-2022 Non-patient / Non-visit Dr. Sloan Espinoza Work Phone: [facility] Start: 02-04-2022 Non-patient / Non-visit Dr. Sloan Espinoza Work Phone: [facility] Start: 02-04-2022 Non-patient / Non-visit Dr. Sloan Espinoza Work Phone: [facility] Start: 02-03-2022 End: 02-05-2022 Evaluation and management of inpatient Dr. Phu Espinoza [facility] Start: 02-03-[address] Phu Espinoza Work Phone: [facility] Work Phone: Start: 12-21-2021 End: 12-21-[address] Phu Espinoza Work Phone: [facility] Office 3rd Flr Start: 11-24-2021 End: 11-24-[address] Phu Espinoza Work Phone: [facility] Start: 10-20-2021 End: 10-20-[address] Phu Espinoza Work Phone: [facility] Start: 09-21-2021 End: 09-21-[address] Phu Espinoza Work Phone: [facility] Office 3rd Flr Start: 08-25-2021 End: 08-25-[address] Phu Espinoza [facility] Start: 08-09-2021 End: 08-09-[address] Phu Espinoza Work Phone: [facility] Start: 07-21-2021 End: 07-21-[address] Phu Espinoza Work Phone: [facility], y Office 3rd Flr Start: 07-20-2021 End: 07-20-[address] Phu Espinoza Work Phone: [facility], y Office 3rd Flr Start: 07-19-2021 End: 07-19-[address] Phu [facility]za [facility] Start: 06-23-2021 End: 06-23-[address] Phu Espinoza Work Phone: [facility], y Office 3rd Flr Start: 06-09-2021 End: 06-09-[address] Phu Espinoza Work Phone: [facility] Start: 05-18-2021 End: 05-18-[address] Phu Espinoza Work Phone: [facility], Specimen Start: 05-17-2021 End: 05-17-[address] Phu Espinoza Work Phone: [facility], y Office 3rd Flr Start: 05-13-2021 End: 05-13-[address] Phu Espinoza Work Phone: [facility] Start: 04-14-2021 End: 04-14-[address] Phu Espinoza Work Phone: [facility], y Office 3rd Flr Start: 03-10-[address] Phu Espinoza Work Phone: [facility], Phy Office 3rd Flr Start: 09-14-2006 End: 09-14-2006 Patient encounter procedure Fransisco Sparks Work Phone: [facility] Start: 09-14-2006 Results Only Fransisco cherry Work Phone: [facility] Procedures Date Procedure Procedure Detail Performing [...] 03-13-2023 Colonoscopy w/biopsy single/multiple COLONOSCOPY AND BIOPSY [facility] Start: 03-13-2023 Egd transoral biopsy single/multiple EGD BIOPSY SINGLE/MULTIPLE [facility] Start: 03-13-2023 Patient discharge [facility] Start: 02-05-2022 Patient discharge [facility] Work Phone: Start: 02-04-2022 Care planning and problem solving actions [facility] Work Phone: Start: 02-03-2022 Following clinical pathway protocol [facility] Work Phone: Start: 02-03-2022 Assessment of risk of venous thromboembolism [facility] Work Phone: Start: 02-03-2022 Care regimes management [facility] Work Phone: Start: 02-03-2022 Incentive spirometry [facility] Work Phone: Start: 02-03-2022 Inhalation therapy procedure [facility] Work Phone: Start: 02-03-2022 Insertion of catheter into peripheral vein [facility] Work Phone: Start: 02-03-2022 Introduction of urinary catheter [facility] Work Phone: Start: 02-03-2022 Measuring intake and output [facility] Work Phone: Start: 02-03-2022 Providing care according to standard [facility] Work Phone: Start: 02-03-2022 Provision of activity privileges [facility] Work Phone: Start: 02-03-2022 Referral to general surgeon [facility] Work Phone: Start: 02-03-2022 End: 02-03-2022 [facility] Work Phone: Start: 02-03-2022 Verification routine [facility] Work Phone: Start: 02-03-2022 Admission procedure [facility] Work Phone: Start: 02-03-2022 End: 02-03-2022 [facility] Work Phone: Start: 02-03-2022 End: 02-03-2022 Blood culture [facility] Work Phone: Start: 02-03-2022 Patient referral to dietitian [facility] Work Phone: Start: 02-10-2021 HPV TESTING HPV TESTING [facility] Start: 02-10-2021 PAP TESTING PAP TESTING [facility] Start: 11-26-2019 Influenza vaccination INFLUENZA (#1) [facility] Start: 02-18-2017 Mammography MAMMOGRAM [facility] Start: 1989 Urine microalbumin profile DTAP,TDAP,TD (1 - Tdap) [facility] Start: 1988 ANNUAL PCP TEAM CHRONIC DISEASE VISIT ANNUAL PCP TEAM CHRONIC DISEASE VISIT [facility] Start: 1988 Hepatitis B surface antibody level LDL CHOLESTEROL [facility] Start: 1988 HEPATITIS C SCREENING HEPATITIS C SCREENING [facility] Start: 1988 HIV SCREENING HIV SCREENING [facility] Start: 1986 ONE PNEUMOVAX PRIOR TO AGE 65 ONE PNEUMOVAX PRIOR TO AGE 65 [facility] Start: 1980 [object Object] DIABETIC FOOT EXAM [facility] Start: 1980 Hepatitis B screening URINE ALBUMIN:CREATININE RATIO [facility] Start: 1980 Hepatitis C antibody, confirmatory test DILATED RETINAL EXAM [facility] Start: 1975 HbA1c (Bld) [Mass fraction] [facility] inic Bacteria identified in Blood by Culture Blood Culture [facility] Work Phone: Bacteria identified in Urine by Culture Urine Culture [facility] Work Phone: Blood culture [facility] Work Phone: Colonoscopy [facility] Hemoglobin A1c/Hemoglobin.total in Blood [facility] Work Phone: Patient Education ED Abdominal P ain Unkn Cause Fem [facility] Work Phone: Patient referral [facility] Work Phone: T4 free measurement [facility] Work Phone: Thyroid stimulating hormone measurement [facility] Work Phone: [facility] Immunizations Immunization Date Immunization Notes Care Provider Fa kelsey 12-21-2021 Covid (Cam & Cam) Dr. Phu Espinoza Work Phone: [facility] 12-21-2021 influenza, injectabl e, quadrivalent, preservative free Dr. Phu Espinoza Work Phone: [facility] 12-21-2021 influenza, seasonal, injectable Dr. Phu Espinoza Work Phone: [facility] Payers Date Payer Category Payer Private Health Insurance [id number] 2023 Self-pay [id number] 2023 Unknown [id number] [address] [facility] MED PLUS [id number] 1999-2008 PPO [id number] Unknown [id number] Unknown [facility] PACKAGE PLAN [id number] Unknown [id number] 62 Unknown [id number] 62 Unknown [id number] 62 Unknown [id number] 62 Unknown [id number] 62 Unknown [id number] 62 Unknown [id number] 62 Unknown [id number] 62 Unknown [id number] 62 Unknown [id number] 62 Unknown [id number] 62 Unknown [id number] 62 Unknown [id number] 62 Unknown [id number] 62 Unknown [id number] 62 Social History Date Type Detail Facility Start: 02-08-2006 End: 03-07-2023 Tobacco smoking status NHIS Never smoker [facility] Start: 02-08-2006 Alcohol intake Current non-dr commissioning agent of alcohol (finding) [facility] Sex Assigned At Not on file [facility] Start: 06-09-2021 End: 03-07-2023 Tobacco smoking status TXIS Unknown if ever smoked [facility] Start: 05-18-2020 None [facility] Start: 05-18-2020 Spouse/ Signif icant Other [facility] Start: 02-03-2019 Non-smoker [facility] Start: 1970 Sex Assigned At Female [facility] Start: 07-09-2024 Sex Female (finding) [facility] Goals Date Patient Goal Desired Activity /State Functional Status Date Assessment Result Facility 02-05-2022 Functional status Up ad edgard;Bathroom Priv ilege [facility] Work Phone: Mental Status Date Assessment Result Facility 03-13-2023 Cognitive function Voice/Name [facility] Work Phone: 03-13-2023 Cognitive function Patient Orien tation Person;Place;Time [facility] Work Phone: 02-05-2022 Cognitive function Voice/Name [facility] Work Phone: 02-03-2022 Cognitive function Level Of Cons ciousness Awake;Alert;Appropriate;Follow s Commands [facility] Work Phone: Clinical Notes 03-13-2023 to 03-22-2024 [...] 11:39am Obesity chronic May 02, 2024 11:39am [facility] Work Phone: 1(502) 885-570312-18-2023 History and physical note Author Jodi Agee [facility] March 13, 2023 7:14am Note Date/Time March 13, 2023 7:12am [facility] Medical Records Department [address] [place] [address] History & Physical Exam 03/13/23 0710 MR#: [id number] Acct: [id number] Name: ARLEN NGUYEN Hattie Rep #:[id number] : 1970 52 From: Jodi Agee MD PCP: Dr. Phu Espinoza MD Status:REG S PR Location: [place] [address] History and Physical Date of Admission: 03/13/23 Date of Service: 02/15/23 MR#: [id number] Acct: [id number] Name: ARLEN NGUYEN Hattie Rep #: [id number] : 1970 Provider: Dr. Jodi Agee MD Age/Sex: 52/F Location: [facility] Status: Signed Intake Vital Signs 11/17/2309:41 02/15/2314:17 Height 5 ft 7.5 in 5 ft 7 in Weight: 277 lb BMI 43.4 BP 114/75 Blood Pressure Location Rt brachial Position Sitting Respiration 18 Intake Visit Reasons: Anemia Chief Complaint: anemia Organ Installer Required: No Is patient in pain?: No [...] not take any other PPI or other fiuf-xor-wrhftaw medications. Patient is adopted does not know [...] healthy appearing, comfortable and no acute distress [facility] Head: normocephalic and atraumatic Neck Neck: [...] Dulcolax split prep. Jodi Agee M.D. Pager: [phone] [facility] [address] [place] [address], [address] [place] [address] Office: [phone] Coding Level of Care Code Off vis,new,level [...] MD; Dr. Jodi Agee MD ~* Signed [facility] Work Phone: 1(386) 339-896612-18-2023 Procedure [facility] 03-13-2023 Procedure [facility]12-18-2023 Procedure note [facility]12-18-2023 Procedure [facility] Evaluation note* Diagnosis Onset Date Resolution Status Diabetes chronic High cholesterol chronic Hypertension chronic Hypothyroidism chronic Morbid obesity with BMI of 45.0-49.9, adult chronic Diabetes chronic Distal paresthesia chronic High cholesterol chronic Hypertension chronic Hypothyroidism chronic Vitamin D deficiency [facility] Work Phone: evaluation note* Diagnosis Onset Date Resolution Status Diabetes chronic High cholesterol chronic Hypertension chronic Hypothyroidism chronic Morbid obesity with BMI of 45.0-49.9, adult chronic Diabetes chronic Distal paresthesia chronic High cholesterol chronic Hypertension chronic Hypothyroidism chronic Vitamin D deficiency chronic Diabetes chronic Hypertension chronic Hypothyroidism chronic Morbid obesity with BMI of 45.0-49.9, adult [facility] Work Phone: Evaluation note* Diagnosis Onset Date Resolution Status Diabetes chronic Distal paresthesia chronic High cholesterol chronic Hypertension chronic Hypothyroidism chronic Vitamin D deficiency chronic Diabetes chronic Hypertension chronic Hypothyroidism chronic Morbid obesity with BMI of 45.0-49.9, [facility] Work Phone: Evaluation note* Diagnosis Onset Date Resolution Status Diabetes chronic Hypertension chronic Hypothyroidism chronic Morbid obesity with BMI of 45.0-49.9, adult [facility] Work Phone: Evaluation note* Diagnosis Onset Date Resolution Status Diabetes chronic Hypertension chronic Obesity (BMI 30-39.9) chroni c Abdominal pain acute Abdominal pain, RLQ acute Fever acute History of diabetes mellitus acute Nausea acute SIRS (systemic inflammatory response syndrome) acute Vomiting acute History of chronic kidney disease chronic [facility] Work Phone: Evaluation note* Diagnosis Onset Date Resolution Status Diabetes chronic Hypertension chronic Obesity (BMI 30-39.9) chroni c Abdominal pain acute Abdominal pain, RLQ acute History of diabetes mellitus acute History of chronic kidney disease chronic Fever resolved Nausea resolved Vomiting resolved [facility] Work Phone: Evaluation note* Diagnosis Onset Date Resolution Status Acute pharyngitis, unspecified acute Shingles acute Diabetes chronic Obesity (BMI 30-39.9) [facility] Work Phone: Evaluation note* Diagnosis Onset Date Resolution Status CKD (chronic kidney disease) stage 3, GFR 30-59 ml/min chronic Diabetes chronic Obesity [facility] Work Phone: Evaluation note* Diagnosis Onset Date Resolution Status Diabetes chronic Obesity [facility] Work Phone: Evaluation note* Diagnosis Onset Date Resolution Status Diabetes chronic Obesity chronic Epigastric pain acute Anemia noneactive Fatigue acute Depression chronic Diabetes chronic Hypertension chronic Hypothyroidism chronic Obesity chronic Vitamin D deficiency chronic [facility] Work Phone: Evaluation note* Diagnosis Onset Date Resolution Status Epigastric pain acute Anemia noneactive Fatigue acute Depression chronic Diabetes chronic Hypertension chronic Hypothyroidism chronic Obesity chronic Vitamin D deficiency chronic [facility] Work Phone: Evaluation note* Diagnosis Onset Date Resolution Status Fatigue acute Depression chronic Diabetes chronic Hypertension chronic Hypothyroidism chronic Obesity chronic Vitamin D deficiency [facility] Work Phone: Hospital Discharge instructions Additional Instructions Your CAT scan normal appendix today. No other acute findings. With your fever all your labs are normal including COVID and influenza. Continue clear liquid diet next 12 to 24 hours. Tylenol as needed. If pain intensifies or worsens in your right lower quadrant abdomen, return for reevaluation.[facility] Work Phone: Reason for referral (narrative)No reason for [facility] Work Phone: Chief Complaint and Reason for Visit Chief Complaint LAB COORDINATOR-DM-NPP MAILED 1 M FU Reason for Visit Diabetes High cholesterol Hypertension Hypothyroidism Morbid obesity with BMI of 45.0-49.9, adult Diabetes Distal paresthesia High cholesterol Hypertension Hypothyroidism Vitamin D deficiency Chief Complaint LAB COORDINATOR-DM-NPP MAILED 1 M FU KIDNEY STONES Reason for Visit Diabetes High cholesterol Hypertension Hypothyroidism Morbid obesity with BMI of 45.0-49.9, adult Diabetes Distal paresthesia High cholesterol Hypertension Hypothyroidism Vitamin D deficiency Chief Complaint LAB COORDINATOR-DM-NPP MAILED 1 M FU KIDNEY STONES [...] No February 03 021 7:01pm Power of Fruit Cutter Yes February 03, 2021 7:01pm Advance Directive Response Recorded Date/ Time Advance Directives No September 11 10:46am Living Will No February 03 022 7:20pm Power of Fruit Cutter No February 03, 2022 7:20pm Advance Directive Response Recorded Date/ Time Name of Medical Power of Fruit Cutter tammy nguyen February 03, 2022 11:15pm Advance Directives No September 11 10:46am Living Will No February 03 022 11:15pm Power of Fruit Cutter Yes February 03, 2022 11:15pm Advance Directive Response Recorded Date/ Time Advance Directives No September 11 11:46am Living Will No February 04, 022 12:15am Power of Fruit Cutter Yes February 04, 2022 12:15am Advance Directive Response Recorded Date/ Time Advance Directives No September 11 15 10:46am Living Will No February 03, 2 022 11:15pm Power of Fruit Cutter Yes February 03, 2022 11:15pm Advance Directive Response Recorded Date/ Time Name of Medical Power of Fruit Cutter [place] March 07, 2023 1:20pm Advance Directives No September 11 10:46am Living Will Yes March 07, 2 023 1:20pm Power of Fruit Cutter Yes March 07, 2023 1:20pm Advance Directive Response Recorded Date/ Time Name of Medical Power of Fruit Cutter [place] March 07, 2023 2:20pm Advance Directives No September 11 11:46am Living Will Yes March 07, 2 023 2:20pm Power of Fruit Cutter Yes March 07, 2023 2:20pm Advance Directive [...] or prosecute any alcohol or drug abuse patient.[facility] Goals (unrecognized section and content) Goals [...] 2024 End: May 02, 2024 Massiel Gibbons LAB COORDINATOR-C Attending Provider Active Start: May 02, 2024 End: May 02, 2024 Massiel Gibbons LAB COORDINATOR-C Referring Provider Active Start: May 02, [...] section and content) DATE CREATED AUTHOR 07/11/2024 [facility] FOR RECORDS PERTAINING TO PATIENTS WHO [...] BE BASED ON THE PRIMARY CLINICAL RECORDS. [facility]. provides no warranty or guarantee of the accuracy or completeness of information in this document.
[2024-10-05 22:20] LABS: Troponin T High Sens 2 HR 22 ng/L (<=14)
--- NOTE | 2024-10-05 22:20 | EKG12_ITS ---
Test Reason : CHEST DISCOMFORT Blood Pressure : */* mmHG Vent. Rate : 74 BPM Atrial Rate : 74 BPM P-R Int : 172 ms QRS Dur : 84 ms QT Int : 398 ms P-R-T Axes : 13 24 35 degrees QTcB Int : 441 ms Normal sinus rhythm Low voltage QRS Borderline ECG When compared with ECG of 05-Oct-2024 23:23, MANUAL COMPARISON REQUIRED DATA IS UNCONFIRMED Confirmed by Sony Yip ([id number]), associate editor MAXIMO BARILLAS ([id number]) on 10/10/2024 8:38:17 AM Referred By: ABEL Confirmed By: Sony Yip
[2024-10-05 22:37] LABS: Anion Gap 15 (5-15); BUN 28 mg/dL (4-19); BUN/Creat Ratio 21.1 RATIO (10-20); Calcium,Total 9.6 mg/dL (7.6-11.0); Carbon Dioxide 21.0 mmol/L (21.0-32.0); Chloride 104 mmol/L (98-108); Estimated Creatinine Clearance 68.70 ml/min (50-250); Glucose 115 mg/dL (70-99); Potassium 4.7 mmol/L (3.3-5.1)
[2024-10-06] VITALS (13 sets, daily range): BP systolic 112–150; BP diastolic 50–83; PULSE 56–87; RESP 16–20; TEMP 36.1–36.8; O2SAT 91–98
[2024-10-06 01:15] LABS: Troponin T High Sens 4 HR 34 ng/L (<=14)
[2024-10-06 06:41] LABS: Hematocrit 32.0 % (37-47); Hemoglobin 10.1 g/dL (12.0-15.0); Mean Corp Hgb Conc 31.6 g/dL (32-36); Mean Corpuscular Volume 77.1 fL (81-99); Mean Platelet Vol. 10.1 fl (6.2-12.0); Platelet Count 233 K/mm3 (150-450); RBC Distribution Width CV 15.7 % (11.6-14.6); RBC Distribution Width SD 43.8 fl (35.1-43.9); Red Blood Count 4.15 M/mm3 (4.2-5.4); White Blood Count 7.2 K/mm3 (4.4-11.0)
--- NOTE | 2024-10-06 07:07 | PCM.PN.HOSP ---
Reason for Visit Reason for Visit: Diagnoses Chest pain, unspecified (10/05/24) Subjective Subjective Patient with no acute events overnight per self and per nursing report however this morning upon evaluation patient is reporting chest pressure midsternal without radiation rating it 3-4 of 10 in severity with no associated nausea, emesis, diaphoresis or dyspnea. She notes it previously been 7 out of 10. On telemetry monitoring she does occasionally appear to be in bigeminy. Discussed plan of care with patient which included continued cardiac enzymes which have trended down and were only minimally elevated noted to be 24-> 22-> 34-> 24 with no acute concerning EKG changes. Noted intention that there were no acute telemetry changes or worsening troponin would plan for cardiac stress testing on Monday as well as echocardiogram. Patient denies fevers, chills, nausea, emesis, abdominal pain or dyspnea. Objective Data Objective Data Vital Signs: Vital Signs Temp Pulse Resp BP Pulse Ox O2 Del Method 97.6 F L 72 18 115/50 L 93 Room Air 10/06/24 04:00 10/06/24 04:00 10/06/24 04:00 10/06/24 04:00 10/06/24 04:00 10/06/24 04:00 Oxygen Delivery Method Room Air Weight: 288 lb 9.361 oz Body Mass Index (BMI) 45.1 Intake & Output: Intake and Output for Last 24 Hours 10/04/24 10/05/24 10/06/24 23:59 23:59 23:59 Intake Total 1000 / 1000 Balance 1000 / 1000 Lab / Micro Data 10/06/24 06:00 10/05/24 21:25 Labs: Laboratory Results - last 24 hr 10/05/24 19:37: WBC 9.5, RBC 4.56, Hgb 10.9 L, Hct 34.7 L, MCV 76.1 L, MCH 23.9 L, MCHC 31.4 L, RDW Std Deviation 42.5, RDW Coeff of Libby 15.5 H, Plt Count 276, MPV 9.7, Immature Gran % (Auto) 0.200, Neut % (Auto) 51.7, Lymph % (Auto) 36.5, [place] % (Auto) 9.5, Eos % (Auto) 1.6, Baso % (Auto) 0.5, Absolute Neuts (auto) 4.9, Absolute Lymphs (auto) 3.48, Nucleated RBC % 0, D-Dimer Quant (PE/DVT) Cancelled, Sodium 140, Potassium 4.8, Chloride 104, Carbon Dioxide 21.3, Anion Gap 15, BUN 29 H, Creatinine 1.37 H, Estim Creat Clear Calc 66.52, Est GFR (MDRD) Non-Af 46 L, BUN/Creatinine Ratio 20.9 H, Glucose 103 H, Hemoglobin A1c 6.0 H, Calcium 10.2, Troponin T High Sens 21 H 10/05/24 20:17: D-Dimer Quant (PE/DVT) 0.42 10/05/24 21:25: Sodium 141, Potassium 4.7, Chloride 104, Carbon Dioxide 21.0, Anion Gap 15, BUN 28 H, Creatinine 1.32 H, Estim Creat Clear Calc 68.70, Est GFR (MDRD) Non-Af 48 L, BUN/Creatinine Ratio 21.1 H, Glucose 115 H, Calcium 9.6, Troponin T Hi Sens 2 Hr 22 H 10/05/24 21:56: POC Glucose 126 H 10/05/24 23:40: Troponin T Hi Sens 4Hr 34 H 10/06/24 06:00: WBC 7.2, RBC 4.15 L, Hgb 10.1 L, Hct 32.0 L, MCV 77.1 L, MCH 24.3 L, MCHC 31.6 L, RDW Std Deviation 43.8, RDW Coeff of Libby 15.7 H, Plt Count 233, MPV 10.1 10/06/24 06:24: POC Glucose 125 H Radiography Diagnostic Testing: Radiology Impression Chest X-Ray 10/05/24 20:00 IMPRESSION: No acute cardiopulmonary abnormality. Reading Location: [facility] Physical Exam Narrative Physical Examination: General: Awake, alert, oriented x 3 and cooperative, laying in the PCU bed, no obvious evidence of distress but patient voice very bertha/weak, previous to this nurse notes that she was tearful and talkative. Skin: Normal color, normal turgor, no icterus, no cyanosis. HEENT: AT/NC, EOMI, PERRLA, MMM. Lungs: Distant, likely secondary to habitus, appropriate effort, no rales, ronchi or wheezing. Heart: Regular rate and rhythm; no gallop, rub audible, some anterior chest discomfort with palpation. Abdomen: Soft, morbidly obese, NTTP, distant BS, difficult to discern distention given habitus. Extremities: No cyanosis, no marked clubbing or significantly noted peripheral distal edema. Neurological: Patient awake, alert, oriented as noted, cognitive function intact; pupils equally reactive to light and accommodation, cranial nerves grossly normal, moving all 4 extremities, no focal deficits, strength mildly globally decreased given acute presentation complaints Psychiatric: Affect appears normal, no acute evidence of depressive or anxiety feelings. Assessment & Plan Assessment/Plan (1) Chest pain: PLAN: Plan The patient is a 54 y/o F w/ PMHx: Anxiety depression/mood disorder, HTN, HLD, Chronic anemia/Fe deficiency anemia, Hypothyroidism, GERD, Diabetes mellitus type II, CKD stage III per chart report, Morbid obesity who presents to the [facility] ED on 10/05/2024 with onset of chest discomfort. #1. Chest Pain with minimally elevated cardiac troponins of unclear significance: EKG in ED sinus rhythm with no acute evidence of ischemia, CXR w/ no acute cardiopulmonary findings, cardiac enzymes which have trended down and were only minimally elevated noted to be 24-> 22-> 34-> 24. Admitted to PCU, maintain on telemetry monitoring with EKG repeats as needed, magnesium 1.3 with supplementation ordered with plan for repeat level 10/07/24 AM, FLP requested, if continued telemetry and enzymes with no acute changes or rise would plan for cardiac stress testing in a.m. 10/07/24. Echo also ordered per admitting physician for 10/07/24. Continue aspirin therapy. NG. #2. Mild creatinine increase/renal insufficiency on chronic Kidney Disease Stage III unclear subtype per previous GFR trending and chart report, THADDEUS RULED OUT: Admission BUN/Cr 29/1.37, GFR 46, baseline renal function primarily 0.8-1.2, given concerns for renal insufficiency upon presentation patient judiciously hydrated, repeat 10/06/24 BMP, given patient's baseline the creatinine rise is not 1.5 times her baseline normal thus not consistent with THADDEUS. Will await repeat labs, continue judicious hydration and if remains appropriate will resume patient valsartan, finerenone and empagliflozin. #3. Chronic microcytic anemia/iron deficiency anemia: Admission hemoglobin 10.9, MCV 76.1, baseline hemoglobin primarily 10-11 range, 10/06/2024 hemoglobin 10.1, MCV 77.1, continue iron supplementation and CBC trending. #4. Anxiety depression/mood disorder: Patient's behavior noted per hospitalist admitting physician to be very depressed and anxious, upon reevaluation 10/06/24 AM patient very bertha however previous to this evaluation with the nursing staff she was cheerful and smiling, certainly mood disorder could be contributing, will continue patient home paroxetine regimen as well as nightly Ambien although would benefit from de-escalating off sedate of addicting sleep regimen potentially consideration of trazodone instead. #5. Diabetes mellitus type II: Clarifying his patient reported insulin drip usage but she does not have this on her at this time, hemoglobin A1c 6.0% upon presentation, attempting to clarify daily insulin pump usage with potential transition to long-acting temporally as able, maintain in the interim on ADA diet, accu checks w/ ISS. As noted above will reinitiate dapagliflozin if repeat renal function appropriate. #6. Hypertension: As noted upon admission initial concern for possible THADDEUS, ruled out, if repeat labs this morning appear appropriate will resume patient home losartan and finerenone regimen, PRN Hydralazine. #7. Hyperlipidemia: Continue home statin regimen. AM FLP. #8. Hypothyroidism: Will continue patient home levothyroxine regimen. #9. Morbid Obesity: Weight loss and lifestyle changes encouraged. #10. GERD: Continue home PPI. #11. DVT prophylaxis: Lovenox. Charges/Coding Visit Charges Inpatient E&M: 94051 Subs Hosp L2
[2024-10-06] MEDS: Nitroglycerin SL (ED/IMG/CATH) 0.4 MG TABLET SL (08:11)
[2024-10-06 08:51] LABS: Magnesium 1.3 mg/dL (1.5-2.2)
[2024-10-06 08:54] LABS: Troponin T High Sensitivity 24 ng/L (<=14)
[2024-10-06] MEDS: Nitroglycerin Oint 1 INCH PACKET 0.5 INCH TD (09:26)
[2024-10-06] MEDS: fentaNYL 100 MCG/2 ML Ampul 25 MCG IV (12:54)
[2024-10-06 13:03] LABS: Anion Gap 12 (5-15); BUN 24 mg/dL (4-19); BUN/Creat Ratio 19.0 RATIO (10-20); Calcium,Total 9.1 mg/dL (7.6-11.0); Carbon Dioxide 22.7 mmol/L (21.0-32.0); Chloride 104 mmol/L (98-108); Estimated Creatinine Clearance 73.13 ml/min (50-250); Glucose 135 mg/dL (70-99); Potassium 4.6 mmol/L (3.3-5.1)
[2024-10-06] MEDS: Magnesium Sulfate 4gm/100mL 4 GM/100 ML IV.SOLN. IV (13:17)
[2024-10-06] MEDS: 0.9% Saline Lock 10 ML Syringe IV (20:54)
--- NOTE | 2024-10-06 23:40 | EKG12_ITS ---
Test Reason : CP ADMISSION Blood Pressure : */* mmHG Vent. Rate : 78 BPM Atrial Rate : 78 BPM P-R Int : 172 ms QRS Dur : 82 ms QT Int : 402 ms P-R-T Axes : 44 11 42 degrees QTcB Int : 458 ms Normal sinus rhythm Low voltage QRS Borderline ECG When compared with ECG of 05-Oct-2024 19:23, MANUAL COMPARISON REQUIRED DATA IS UNCONFIRMED Confirmed by MD JONATHAN, LOIS ([id number]), order editor MAXIMO BARILLAS ([id number]) on 10/08/2024 10:58:51 AM Referred By: Confirmed By: LOIS CASTILLO MD
[2024-10-07 05:01] LABS: AST(SGOT) 56 U/L (<=31); Alanine Aminotransfer ALT/SGPT 58 U/L (<=34); Albumin, Serum 4.1 g/dL (3.5-5.0); Alkaline Phosphatase 46 U/L (35-104); Anion Gap 12 (5-15); BUN 24 mg/dL (4-19); BUN/Creat Ratio 22.1 RATIO (10-20); Calcium,Total 9.9 mg/dL (7.6-11.0); Carbon Dioxide 23.7 mmol/L (21.0-32.0); Chloride 104 mmol/L (98-108); Cholesterol 113 mg/dL (<=200); Estimated Creatinine Clearance 83.97 ml/min (50-250); Globulin 2.9 g/dL (2.2-4.2); Glucose 150 mg/dL (70-99); Low Density Lipoprotein Calc. 44 mg/dL; Magnesium 1.9 mg/dL (1.5-2.2); Potassium 4.3 mmol/L (3.3-5.1); Triglycerides 196 mg/dL; Very Low Density Lipoprotein 39 mg/dL (5-40); cholesterol:hdl ratio screen 3.77
--- NOTE | 2024-10-07 05:55 | EKG12_ITS ---
Test Reason : AM EKG Blood Pressure : */* mmHG Vent. Rate : 85 BPM Atrial Rate : 85 BPM P-R Int : 170 ms QRS Dur : 88 ms QT Int : 390 ms P-R-T Axes : 51 44 24 degrees QTcB Int : 464 ms Sinus rhythm with frequent Premature ventricular complexes in a pattern of bigeminy Low voltage QRS Borderline ECG When compared with ECG of 06-Oct-2024 23:54, MANUAL COMPARISON REQUIRED DATA IS UNCONFIRMED Confirmed by MD JONATHAN, LOIS ([id number]), editor managing director MAXIMO BARILLAS ([id number]) on 10/08/2024 10:56:09 AM Referred By: Confirmed By: LOIS CASTILLO MD
[2024-10-07 06:01] LABS: Hemoglobin 10.5 g/dL (12.0-15.0); Red Blood Count 4.32 M/mm3 (4.2-5.4); White Blood Count 6.6 K/mm3 (4.4-11.0)
[2024-10-07 06:02] LABS: Hematocrit 33.6 % (37-47); Mean Corp Hgb Conc 31.3 g/dL (32-36); Mean Corpuscular Volume 77.8 fL (81-99); Mean Platelet Vol. 10.6 fl (6.2-12.0); Platelet Count 242 K/mm3 (150-450); RBC Distribution Width CV 15.3 % (11.6-14.6); RBC Distribution Width SD 43.3 fl (35.1-43.9)
[2024-10-07 06:03] LABS: Immature Granulocytes Count 0.020 X10^3/uL (0.0-0.0)
[2024-10-07 06:12] VITALS: BP 136/63; PULSE 77; RESP 16; TEMP 37.1; O2SAT 98
--- NOTE | 2024-10-07 10:04 | PCM.PN.HOSP ---
Reason for Visit Chief Complaint: Chest pain Subjective Subjective Patient is a 54-year-old lady admitted with chest pain and fatigue Objective Data Objective Data Vital Signs: Vital Signs Temp Pulse Resp BP Pulse Ox O2 Del Method O2 Flow Rate 98.7 F 77 16 136/63 H 98 Nasal Cannula 2 10/07/24 06:12 10/07/24 06:12 10/07/24 06:12 10/07/24 06:12 10/07/24 06:12 10/07/24 08:10 10/07/24 08:10 Oxygen Flow Rate (L/min) 2 Oxygen Delivery Method Nasal Cannula Weight: 130.9 kg Body Mass Index (BMI) 45.1 Intake & Output: Intake and Output for Last 24 Hours 10/05/24 10/06/24 10/07/24 23:59 23:59 23:59 Intake Total 1100 / 1100 Balance 1100 / 1100 Lab / Micro Data 10/07/24 03:28 10/07/24 03:28 Labs: Laboratory Results - last 24 hr 10/06/24 06:00: Sodium 139, Potassium 4.6, Chloride 104, Carbon Dioxide 22.7, Anion Gap 12, BUN 24 H, Creatinine 1.24 H, Estim Creat Clear Calc 73.13, Est GFR (MDRD) Non-Af 52 L, BUN/Creatinine Ratio 19.0, Glucose 135 H, Calcium 9.1 10/06/24 11:12: POC Glucose 173 H 10/06/24 16:06: POC Glucose 154 H 10/06/24 22:49: POC Glucose 180 H 10/07/24 03:28: WBC 6.6, RBC 4.32, Hgb 10.5 L, Hct 33.6 L, MCV 77.8 L, MCH 24.3 L, MCHC 31.3 L, RDW Std Deviation 43.3, RDW Coeff of Libby 15.3 H, Plt Count 242, MPV 10.6, Immature Gran % (Auto) 0.300, Neut % (Auto) 48.3, Lymph % (Auto) 37.9, [place] % (Auto) 10.8 H, Eos % (Auto) 2.1, Baso % (Auto) 0.6, Absolute Neuts (auto) Not Reportable, Sodium 140, Potassium 4.3, Chloride 104, Carbon Dioxide 23.7, Anion Gap 12, BUN 24 H, Creatinine 1.08, Estim Creat Clear Calc 83.97, Est GFR (MDRD) Non-Af 61, BUN/Creatinine Ratio 22.1 H, Glucose 150 H, Calcium 9.9, Magnesium 1.9, Total Bilirubin 0.29, AST 56 H, ALT 58 H, Alkaline Phosphatase 46, Total Protein 7.0, Albumin 4.1, Globulin 2.9, Albumin/Globulin Ratio 1.4, Triglycerides 196, Cholesterol 113, LDL Cholesterol, Calc 44, VLDL Cholesterol 39, HDL Cholesterol 30 L, Cholesterol/HDL Ratio 3.77 10/07/24 06:11: POC Glucose 167 H Physical Exam Narrative GENERAL: cooperative HEENT: Atraumatic; normocephalic EYES; Anicteric, Normal Conjunctiva NECK; supple, normal thyroid, RESPIRATORY: Diminished to auscultation CARDIOVASCULAR: Regular S1 S2, GI: soft, normoactive bowel sounds, : No Renal angle tenderness; EXTREMITIES: No edema, no clubbing, MUSCULOSKELETAL: no muscle wasting NEURO: Awake; no lateralizing signs. SKIN: No Rash PSYCH; Flat affect Assessment & Plan Assessment/Plan (1) Chest pain: PLAN: Plan Patient is a 54-year-old female who presented with chest pain 1. Chest pain – Patient was placed on a monitored bed [place] was ruled out with serial cardiac enzymes as part of patient's evaluation a nuclear stress test was ordered 2. Class III obesity with BMI of 45.2 – Complicating care weight loss advised 3. Hypertension – Blood pressure controlled, home medications continued with dose adjustment as needed 4. Dyslipidemia –Patient is on statin therapy, continued at home dose 5. GERD – On PPI 6. Hypothyroidism – Patient is on levothyroxine home dose continued 7.Anemia – Secondary to chronic disorder monitoring H&H and transfuse if patient becomes symptomatic or hemoglobin falls below 7 8. n Acute kidney injury – Baseline creatinine 1.97 patient creatinine on admission was 1.37. Rehydrated with IV fluids with holding of potential nephrotoxic medication 9. DVT prophylaxis – Subcu heparin Charges/Coding Visit Charges Inpatient E&M: 10497 Subs Hosp L2
[2024-10-07 12:12] VITALS: BP 115/67; PULSE 80; RESP 16; TEMP 36.5; O2SAT 95
--- NOTE | 2024-10-07 14:20 | STRESSREP ---
Stress Test Report Pharmacologic myocardial perfusion stress test. 54-year-old lady with a history of chest pain Resting EKG demonstrates sinus rhythm with a rate of 110 bpm. Resting blood pressure is 138/70 mmHg. 0.4 mg of regadenoson was infused per usual protocol followed by rapid intravenous saline flush injection. Continuous EKG monitoring was performed. The maximum heart rate was 110 bpm which was 66% of max impacted heart rate the maximum workload was 1 metabolic equivalent. At rest there were no ST or T wave changes noted to suggest ischemia and at peak infusion nonspecific ST changes were noted which did not meet the criteria for ischemia. No clinical angina is noted. The final blood pressure was 146/80 mmHg. Myocardial perfusion protocol. 14.5 mCi of technetium 99m sestamibi was injected at rest. 0.4 mg of regadenoson was infused per usual protocol. At peak infusion 44.6 mCi of technetium 99m sestamibi was injected stress images were obtained stress and rest images were reconstructed and compared in the short axis vertical long and horizontal long axis. Gated images were also obtained. Perfusion SPECT analysis: Review of the stress images demonstrate normal uptake of tracer noted in all areas of the myocardium. The resting images similar demonstrated normal uptake of tracer noted in all areas of the myocardium. No areas of reversibility are noted to suggest ischemia and no previous infarct is noted. Gated SPECT analysis: The gated ejection fraction is 60%. Conclusion: Normal pharmacologic myocardial perfusion stress test. Preserved ejection fraction.
[2024-10-07 16:08] VITALS: BP 114/58; PULSE 72; RESP 14; TEMP 36.5; O2SAT 96
--- NOTE | 2024-10-07 16:08 | DS.PCM_ITS ---
Providers Date of Admission: 10/05/24 Date of Discharge: 10/07/24 Primary Care Physician: Dr. Phu Espinoza MD Reason For Visit: CHEST PAIN Diagnosis Discharge Diagnosis (1) Chest pain: Status: Acute Code(s): R07.9 - Chest pain, unspecified Plan Patient is a 54-year-old female who presented with chest pain 1. Chest pain – Patient was placed on a monitored bed [place] was ruled out with serial cardiac enzymes as part of patient's evaluation a nuclear stress test was ordered – Patient nuclear stress test was negative for stress-induced ischemia discharge him instructed to follow-up with primary care physician for subsequent 2. Class III obesity with BMI of 45.2 – Complicating care weight loss advised 3. Hypertension – Blood pressure controlled, home medications continued with dose adjustment as needed 4. Dyslipidemia –Patient is on statin therapy, continued at home dose 5. GERD – On PPI 6. Hypothyroidism – Patient is on levothyroxine home dose continued 7.Anemia – Secondary to chronic disorder monitoring H&H and transfuse if patient becomes symptomatic or hemoglobin falls below 7 8. n Acute kidney injury – Baseline creatinine 1.97 patient creatinine on admission was 1.37. Rehydrated with IV fluids with holding of potential nephrotoxic medication 9. DVT prophylaxis – Subcu heparin Medications at Discharge Home Medications albuterol sulfate 90 mcg/actuation aerosol inhaler (Ventolin HFA) 1 puff inhalation Q4H PRN PRN Shortness Of Breath 12/01/13 zolpidem 10 mg tablet (Ambien) 5 mg PO QHS PRN sleep 12/01/13 epinephrine 0.3 mg/0.3 mL injection, auto-injector 0.3 mg (0.3 mL) IJ X1 PRN Anaphylaxis ##1 02/03/19 atorvastatin 40 mg tablet 40 mg PO DAILY 02/03/21 cetirizine 10 mg tablet 10 mg PO DAILY 02/03/21 valsartan 320 mg tablet 320 mg PO QHS 03/07/23 metformin 1,000 mg tablet 1,000 mg PO BID 11/01/23 paroxetine HCl 40 mg tablet 40 mg PO QDAY 11/01/23 insulin lispro 200 unit/mL (3 mL) subcutaneous pen (Humalog KwikPen U-200 Insulin) 170 unit (0.85 mL) subcut ONCE #76.5 mL 05/02/24 levothyroxine 125 mcg tablet 125 mcg PO QDAY #90 tabs 05/02/24 empagliflozin 25 mg tablet (Jardiance) 25 mg PO QDAY #90 tabs 06/10/24 finerenone 10 mg tablet (Kerendia) 10 mg PO DAILY 10/05/24 pantoprazole 40 mg tablet,delayed release 40 mg PO DAILY 10/05/24 polysaccharide iron complex 150 mg iron capsule (Ferrex) 150 mg PO DAILY 10/05/24 sulfamethoxazole 800 mg-trimethoprim 160 mg tablet 1 tab PO QHS 10/05/24 Hospital Course Summary of Care Provided Minutes Spent on Discharge: 35 Physical Exam Narrative GENERAL: cooperative HEENT: Atraumatic; normocephalic EYES; Anicteric, Normal Conjunctiva NECK; supple, normal thyroid, RESPIRATORY: Diminished to auscultation CARDIOVASCULAR: Regular S1 S2, GI: soft, normoactive bowel sounds, : No Renal angle tenderness; EXTREMITIES: No edema, no clubbing, MUSCULOSKELETAL: no muscle wasting NEURO: Awake; no lateralizing signs. SKIN: No Rash PSYCH; Flat affect Weight / BMI Weight Weight: 130.9 kg Body Mass Index (BMI) 45.1 ABG / Lab / Microbiology Data 10/07/24 03:28 10/07/24 03:28 Laboratory: Laboratory Results - last 24 hr 10/06/24 16:06: POC Glucose 154 H 10/06/24 22:49: POC Glucose 180 H 10/07/24 03:28: WBC 6.6, RBC 4.32, Hgb 10.5 L, Hct 33.6 L, MCV 77.8 L, MCH 24.3 L, MCHC 31.3 L, RDW Std Deviation 43.3, RDW Coeff of Libby 15.3 H, Plt Count 242, MPV 10.6, Immature Gran % (Auto) 0.300, Neut % (Auto) 48.3, Lymph % (Auto) 37.9, [place] % (Auto) 10.8 H, Eos % (Auto) 2.1, Baso % (Auto) 0.6, Absolute Neuts (auto) Not Reportable, Sodium 140, Potassium 4.3, Chloride 104, Carbon Dioxide 23.7, Anion Gap 12, BUN 24 H, Creatinine 1.08, Estim Creat Clear Calc 83.97, Est GFR (MDRD) Non-Af 61, BUN/Creatinine Ratio 22.1 H, Glucose 150 H, Calcium 9.9, Magnesium 1.9, Total Bilirubin 0.29, AST 56 H, ALT 58 H, Alkaline Phosphatase 46, Total Protein 7.0, Albumin 4.1, Globulin 2.9, Albumin/Globulin Ratio 1.4, Triglycerides 196, Cholesterol 113, LDL Cholesterol, Calc 44, VLDL Cholesterol 39, HDL Cholesterol 30 L, Cholesterol/HDL Ratio 3.77 10/07/24 06:11: POC Glucose 167 H 10/07/24 11:18: POC Glucose 178 H Radiography Diagnostic Testing: Radiology Impression Echocardiogram 10/05/24 21:14 Interpretation Summary The LV ejection fraction is 65 %. Stage 1 diastolic dysfunction. Ordering Physician: Junior Dunn Referring Physician: Phu Espinoza Chi Performed By: Maine Akbar RDCS D/C Instructions Discharge Activity: Return to Normal Activity Call your doctor if you observe: Fever of 101 or Higher, Shortness of breath, Fainting spells and Chest pain DC O2, CPAP, BIPAP Needs Home O2 Discharge instructions: No Meaningful Use Info Meaningful Use Meaningful Use Diagnoses (Choose all that apply): None applicable Discharge Plan Admission Admit Date/Time: 10/05/24 21:10 Attending Provider: Octavio Archuleta Primary Care Provider: Phu Espinoza Chi Consulting Providers: Junior Dunn; Megan Gomez Discharge Orders/Prescriptions Prescriptions: Continued metformin 1,000 mg tablet 1,000 mg PO BID paroxetine HCl 40 mg tablet 40 mg PO QDAY Humalog KwikPen Insulin 200 unit/mL (3 mL) insulin pen 170 unit subcut ONCE Qty: 76.5 1RF Rx Instructions: to be used in insulin pump zolpidem [Ambien] 10 MG tablet 5 mg PO QHS PRN (Reason: sleep) Patient Comments: sleeping pill albuterol sulfate [Ventolin HFA] 1 INHALER inhaler 1 puff inhalation Q4H PRN PRN (Reason: Shortness Of Breath) Patient Comments: breathing epinephrine 0.3 MG/0.3 ML auto-injector 0.3 mg IJ X1 PRN (Reason: Anaphylaxis) Qty: 1 0RF atorvastatin 40 mg Tablet 40 mg PO DAILY cetirizine 10 mg Tablet 10 mg PO DAILY valsartan 320 mg tablet 320 mg PO QHS sulfamethoxazole-trimethoprim 800-160 mg tablet 1 tab PO QHS pantoprazole 40 mg tablet,delayed release (DR/EC) 40 mg PO DAILY polysaccharide iron complex [Ferrex 150] 150 mg iron capsule 150 mg PO DAILY Kerendia 10 mg tablet 10 mg PO DAILY levothyroxine 125 mcg tablet 125 mcg PO QDAY Qty: 90 1RF Jardiance 25 mg tablet 25 mg PO QDAY Qty: 90 1RF Referrals / Follow Up: Phu Espinoza Chi, MD [Primary Care Provider] - Disposition Disposition (needs filled in before D/C Order can be placed): Home, Self Care Charges/Coding Visit Charges Inpatient E&M: 00228 Disch Hosp >30min
[2024-10-07 16:16] VITALS: BP 114/58; PULSE 72; RESP 14; TEMP 36.5; O2SAT 96
--- NOTE | 2024-10-07 16:30 | CASEMGMT ---
Patient has order for discharge. RN CM in to discuss needs at discharge. Patient denies needs at discharge. Patient had no further questions or concerns.
== END 2024-10-07 16:16 | disposition home or self-care (01) ==
LOC: ED 20:58 → PCU 21:28
PROVIDERS: Family Medicine; Admitting Provider Hospitalist; Emergency Provider Emergency Medicine; PCP Family Medicine Geriatric Medicine; Visit Provider Internal Medicine
DX: R07.89 Other chest pain (principal); E66.813 Obesity, class 3; Z68.42 Body mass index [BMI] 45.0-49.9, adult; E11.40 Type 2 diabetes mellitus with diabetic neuropathy, unspecified; Z79.4 Long term (current) use of insulin; N18.30 Chronic kidney disease, stage 3 unspecified; Z79.899 Other long term (current) drug therapy; E78.00 Pure hypercholesterolemia, unspecified; I12.9 Hypertensive chronic kidney disease with stage 1 through stage 4 chronic kidney disease, or unspecified chronic kidney disease; Z79.84 Long term (current) use of oral hypoglycemic drugs; Z96.41 Presence of insulin pump (external) (internal); D50.9 Iron deficiency anemia, unspecified; R42 Dizziness and giddiness; Z82.49 Family history of ischemic heart disease and other diseases of the circulatory system; R06.02 Shortness of breath; K21.9 Gastro-esophageal reflux disease without esophagitis; N17.9 Acute kidney failure, unspecified; F39 Unspecified mood [affective] disorder; E03.9 Hypothyroidism, unspecified; Z79.890 Hormone replacement therapy; D63.8 Anemia in other chronic diseases classified elsewhere
CPT/HCPCS: 36415; 71045; 78452; 80048; 80053; 80061; 82962; 83036; 83735; 84484; 85025; 85027; 85379; 93005; 93017; 93306; 94668; 96361; 96372; 96374; 96375; 99221; 99285; A9500; Q9957; A4216; C8929; G0378; J2785

== ENCOUNTER 2024-10-10 15:58 | Outpatient (CLI) | payer OTHER, SELFPAY ==
[2024-10-10 16:15] LABS: Mucous, Urine 0 SEEN /hpf (<or=2+)
[2024-10-10 17:39] LABS: Hematocrit 35.9 % (37-47); Hemoglobin 11.4 g/dL (12.0-15.0); Immature Granulocytes Count 0.030 X10^3/uL (0.0-0.0); Mean Corp Hgb Conc 31.8 g/dL (32-36); Mean Corpuscular Volume 75.9 fL (81-99); Mean Platelet Vol. 10.4 fl (6.2-12.0); NRBC Flagged by Analyzer 0 % (0-5); Platelet Count 277 K/mm3 (150-450); RBC Distribution Width CV 15.6 % (11.6-14.6); RBC Distribution Width SD 42.1 fl (35.1-43.9); Red Blood Count 4.73 M/mm3 (4.2-5.4); White Blood Count 9.6 K/mm3 (4.4-11.0)
[2024-10-10 17:49] LABS: Color, Urine Yellow (Yellow); Glucose, Dipstick 1000 mg/dl (Normal); Ketone-Dipstick 5 mg/dl (Negative); Leukocyte Esterase-Dipstick 100 /ul (Negative); Nitrite-Dipstick Negative (Negative); Occult Blood-Urine Negative /ul (Negative); Protein-Dipstick 30 mg/dl (Negative); Specific Gravity, Urine 1.015 (1.002-1.030)
[2024-10-10 18:38] LABS: AST(SGOT) 43 U/L (<=31); Alanine Aminotransfer ALT/SGPT 52 U/L (<=34); Albumin, Serum 4.5 g/dL (3.5-5.0); Alkaline Phosphatase 53 U/L (35-104); Anion Gap 17 (5-15); BUN 25 mg/dL (4-19); BUN/Creat Ratio 20.1 RATIO (10-20); Calcium,Total 9.9 mg/dL (7.6-11.0); Carbon Dioxide 19.0 mmol/L (21.0-32.0); Chloride 103 mmol/L (98-108); Ferritin 23 ng/mL (22-378); Globulin 3.3 g/dL (2.2-4.2); Glucose 99 mg/dL (70-99); HIV Nonreactive (Nonreactive); Potassium 4.3 mmol/L (3.3-5.1); Vitamin B12 879 pg/mL (180-914)
[2024-10-10 18:53] LABS: Urine Bilirubin Dipstick 3 mg/dL (Negative)
[2024-10-10 18:57] LABS: Red Blood Cells-Urine 0-5 SEEN /hpf (0-5); Squamous Epithelial Cells - UA 10-25 SEEN /hpf (5-10)
[2024-10-10 19:15] LABS: Iron 29 ug/dL (50-170); Iron Binding Capacity,Unsat 433 ug/dL (228-428)
[2024-10-10 19:29] LABS: Iron Binding Capacity,Total 462 ug/dL (250-450)
[2024-10-12 04:07] LABS: CRP, High Sensitivity 0.43 mg/L (0.00-3.00)
[2024-10-18 10:08] LABS: Folate, Hemolysate Test 581.0 ng/mL (Not Estab.); Folate, RBC (Hct) Test 38.6 % (34.0-46.6); Folates, RBC Test 1505 ng/mL (>498); QNTFERON TB Mitogen Value > 10.00 IU/mL (.); QNTFERON TB Nil Value 0.05 IU/mL (.); QNTFERON TB1+ Ag Value 0.05 IU/mL (.); QNTFERON TB2+ Ag Value 0.06 IU/mL (.); QNTIFERON TB Positive Criteria Negative (Negative)
== END 2024-10-10 23:59 | disposition home or self-care (01) ==
LOC: POLAB3 15:59
PROVIDERS: PCP Family Medicine Geriatric Medicine; Visit Provider Family Medicine Geriatric Medicine
DX: I10 Essential (primary) hypertension (principal); R53.83 Other fatigue; R11.0 Nausea; R50.9 Fever, unspecified
CPT/HCPCS: 36415; 80053; 81001; 82607; 82728; 82747; 83540; 83550; 84443; 85014; 85025; 85652; 86141; 86480; 86703; 87040; 87077; 87086; 87088; 87186

== ENCOUNTER → 2024-10-11 | Outpatient (CLI) | payer OTHER, SELFPAY | END | disposition home or self-care (01) | LOC: LABSPEC 13:30 | PROVIDERS: PCP Family Medicine Geriatric Medicine; Referring Provider Family Medicine Geriatric Medicine; Visit Provider Family Medicine Geriatric Medicine | DX: D64.9 Anemia, unspecified (principal) | CPT/HCPCS: 82274 ==

== ENCOUNTER → 2024-10-16 | Outpatient (CLI) | payer OTHER, SELFPAY ==
[2024-10-16 19:00] LABS: Hematocrit 35.6 % (37-47); Hemoglobin 11.2 g/dL (12.0-15.0); Immature Granulocytes Count 0.020 X10^3/uL (0.0-0.0); Mean Corp Hgb Conc 31.5 g/dL (32-36); Mean Corpuscular Volume 76.9 fL (81-99); Mean Platelet Vol. 11.0 fl (6.2-12.0); NRBC Flagged by Analyzer 0 % (0-5); Platelet Count 311 K/mm3 (150-450); RBC Distribution Width CV 16.0 % (11.6-14.6); RBC Distribution Width SD 44.2 fl (35.1-43.9); Red Blood Count 4.63 M/mm3 (4.2-5.4); White Blood Count 8.6 K/mm3 (4.4-11.0)
[2024-10-16 20:32] LABS: AST(SGOT) 67 U/L (<=31); Alanine Aminotransfer ALT/SGPT 82 U/L (<=34); Albumin, Serum 4.4 g/dL (3.5-5.0); Alkaline Phosphatase 51 U/L (35-104); Anion Gap 16 (5-15); BUN 35 mg/dL (4-19); BUN/Creat Ratio 23.2 RATIO (10-20); Calcium,Total 10.1 mg/dL (7.6-11.0); Carbon Dioxide 21.1 mmol/L (21.0-32.0); Chloride 104 mmol/L (98-108); Globulin 3.3 g/dL (2.2-4.2); Glucose 84 mg/dL (70-99); Potassium 4.2 mmol/L (3.3-5.1)
[2024-10-16 20:43] LABS: CRP < 3.00 mg/L (0.0-3.0)
[2024-10-17 00:42] LABS: Xtra Tube Kwok EXTRA TUBE
== END | disposition home or self-care (01) ==
LOC: POLAB3 16:40
PROVIDERS: PCP Family Medicine Geriatric Medicine; Visit Provider Family Medicine Geriatric Medicine
DX: R53.83 Other fatigue (principal)
CPT/HCPCS: 36415; 80053; 85025; 85652; 86140

== ENCOUNTER → 2024-10-30 | Outpatient (CLI) | payer OTHER, SELFPAY ==
--- OUTSIDE RECORDS SUMMARY | 2024-10-30 06:58 | XMS RPT_ITS | CCD ---
Author Organization [facility] Care Team Providers Care Fishing Tackle Repairer Name Role Phone Charles Rae Primary Care [...] Provider Dr. Marcellus Ceballos Attending Provider 1([facility])[phone] Alexis, Dr. Phu Aldana Primary Care Provider Alexis, Dr. Phu Aldana Referring Provider Jemma SIMMONS, PA Evin Sofia Attending Provider IRIS Lemus Attending Provider Shai PARKING ATTENDANT-C Massiel Attending Provider Alexis, Dr. Phu Aldana Primary Care Provider Alexis, Dr. Phu Aldana Referring Provider Shai, PARKING ATTENDANT-C Massiel Attending Provider Alexis, Dr. Phu Aldana Primary Care Provider Alexis, Dr. Phu Aldana Referring Provider Shai, PARKING ATTENDANT-C Massiel Attending Provider Alexis, Dr. Phu Aldana Primary Care Provider Alexis, Dr. Phu Aldana Referring Provider Shai PARKING ATTENDANT-C Massiel Attending Provider Dr. Jodi Agee Attending Provider Dr. Jodi Agee Other Provider Alexis, Dr. Phu Aldana Primary Care Provider Alexis, Dr. Phu Aldana Referring Provider LISY GibbonsC Massiel Attending Provider Alexis, Dr. Phu Aldana Primary Care Provider Alexis, Dr. Phu Aldana Referring Provider Shai PARKING ATTENDANT-C Massiel Attending Provider Dr. Jodi Agee Attending Provider Dr. Jodi Agee Other Provider Alexis DICKENS, Dr. Phu Aldana Primary Care Provider Alexis DICKENS, Dr. Phu Aldana Referring Provider Cyndie DICKENS, Dr. Zapata Attending Provider Cyndie DICKENS, Dr. Zapata Referring Provider Shai PARKING ATTENDANT-C, Massiel Attending Provider Shai PARKING ATTENDANT-C, Massiel Referring Provider Alexis DICKENS, Dr. Phu Aldana Attending Provider Alexis DICKENS, Dr. Phu Aldana Primary Care Provider Alexis DICKENS, Dr. Phu Aldana Referring Provider [phone] Kirstie DO, Dr. Walton Emergency Provider Shaun CRUZ, Dr. Pacheco Admit Provider Shaun CRUZ, Dr. Pacheco Attending Provider Shaun DO, Dr. Pacheco Other Provider Geremias DICKENS, Dr. Cunningham Attending Provider Unavaila [facility] Jason DICKENS, Dr. Megan Kuhn Other Provider Jason DICKENS, Dr. Megan Kuhn Attending Provider Geremias DICKENS, Dr. Cunningham Other Provider Unavailable Silvano DICKENS, Dr. Bond Attending Provider Bernie DICKENS, Dr. Moreno Attending Provider [phone] Cyndie DICKENS, Dr. Zapata Attending Provider Alexis, Phu Chi Attending Unavailable Alexis, Phu Chi Primary Care Unavailable Alexis, Phu Chi Attending Unavailable Alexis, Phu Chi Primary Care Unavailable Alexis, Phu Chi Primary Care Unavailable Jodi Agee Attending Unavailable Alexis, Phu Chi Referring Unavailable Alexis, Phu Chi Attending Unavailable Alexis, Phu Chi Primary Care Unavailable Alexis, Phu Chi Primary Care Unavailable Alexis, Phu Chi Attending Unavailable Alexis, Phu Chi Referring Unavailable Alexis, Phu Chi Primary Care Unavailable Manuel Gibbonsn Attending Unavailable Manuel Gibbonsn Referring Unavailable Alexis, Phu Chi Primary Care Unavailable Robotnazanin, Jodi Attending Unavailable Alexis, Phu Chi Referring Unavailable Alexis, Phu Chi Primary Care Unavailable Alexis, Phu Chi Referring Unavailable Massiel Gibbons Attending Unavailable Alexis, Phu Chi Primary Care Unavailable Ronda Schaefer Attending Unavailable Josh Gibbs Attending Unavailable Junior Dunn Admitting Unavailable Junior Dunn Consulting Unavailable Alexis, Phu Chi Primary Care Unavailable Megan Gomez Consulting Unavailable Octavio Archuleta Consulting Unavailable Octavio Archuleta Attending Unavailable Megan Gomez Attending Unavailable Junior Dunn Attending Unavailable Alexis, Phu Chi Primary Care Unavailable Robotham, Jodi Attending Unavailable Robotham, Jodi Referring Unavailable Alexis, Phu Chi Attending Unavailable Alexis, Phu Chi Primary Care Unavailable Junior Dunn Admitting Unavailable Octvaio Archuleta Attending Unavailable Junior Dunn Consulting Unavailable Alexis, Phu Chi Primary Care Unavailable Megan Gomez Consulting Unavailable Alexis, Phu Chi Attending Unavailable Alexis, Phu Chi Primary Care Unavailable Alexis, Phu Chi Referring Unavailable Alexis, Phu Chi Attending Unavailable Alexis, Phu Chi Primary Care Unavailable Alexis, Phu Chi Referring Unavailable Alexis, Phu Chi Attending Unavailable Alexis, Phu Chi Primary Care Unavailable Alexis, Phu Chi Referring Unavailable Alexis, Phu Chi Primary Care Unavailable Massiel Gibbons Attending Unavailable Shai, Massiel Referring Unavailable Alexis, Phu Chi Primary Care Unavailable Massiel Gibbons Attending Unavailable Alexis, Phu Chi Referring Unavailable Alexis, Phu Chi Primary Care Unavailable Alexis, Phu Chi Referring Unavailable Massiel Gibbons Attending Unavailable Alexis, Phu Chi Primary Care Unavailable Alexis, Phu Chi Attending Unavailable Alexis, Phu Chi Referring Unavailable Allergies Allergy Classification Reported Allergen(s) Allergy Type Date of Onset Reaction(s) Facility (20 sources) Codeine Drug Allergy 6 Mental Status Change [facility] (20 sources) predniSONE Drug Allergy 6 Mental Status Change [facility] (1 source) Sertraline Drug Allergy 2 Unknown [facility] (8 sources) Nuts (not including peanuts) Allergy to substance 2 Anaphylaxis [facility] Work Phone: (20 sources) peanut allergenic extract Drug Allergy 2 Anaphylaxis [facility] (20 sources) Sertraline; Translations: [sertraline HCl] Drug Allergy 2 Other [facility] (20 sources) Shellfish; Translations: [shellfish derived] Allergy to substance 2 Anaphylaxis [facility] (20 sources) nut - unspecified; Translations: [nut - unspecified] Allergy to substance 2 Anaphylaxis [facility] (1 source) Codeine Drug Allergy 5 [facility] (1 source) Doxepin Drug Allergy 5 [facility] (1 source) peanut allergenic extract Drug Allergy 5 [facility] (1 source) predniSONE Drug Allergy 5 [facility] Medications Current Medications Medication Drug Class(es) [...] injector Discontinued 0.75 mg SC EVERY WEEK 2 May 27, 2021 1:14pm June 09, 2021 4:30pm empagliflozin 25 mg oral tablet (14 sources) Sodium-Glucose Cotransporter 2 Inhibitor Start: 05-02-2024 End: 06-10-2024 take 1 tablet by mouth once daily Empagliflozin (Jardiance) 25 mg tablet Active 25 mg PO daily 90 June 10, 2024 11:55am [id number] 0.3 ml EPINEPHrine 1 mg/ml auto-injector (20 sources) alpha-Adrenergic Agonist, beta-Adrenergic Agonist, Catecholamine Start: 02-03-2019 Epinephrine 0.3 MG/0.3 ML auto-injector Active 0.3 mg IJ ONE TIME as needed for Anaphylaxis 1 0 February 03, 2019 4:03pm Start: 12-01-2013 End: 03-02-2023 Epinephrine 0.3 MG syringe D iscontinued 0.3 mg IM NEEDED as needed for Anaphylaxis 2 0 December 01, 2013 3:39pm March 02, 2023 12:14pm Finerenone (6 sources) Start: 10-05-2024 take 1 tablet by mouth once daily Finerenone (Kerendia) 10 mg tablet Active 10 mg PO DAILY October 05, 2024 12:00am gabapentin 100 mg oral capsule (2 sources) Anti-epileptic Agent Start: 10-21-2024 take 1 capsule by mouth three times daily Gabapentin 100 mg capsule Active 100 mg PO THREE TIMES A DAY October 21, 2024 12:00am 3 ml insulin lispro 200 unt/ml pen injector (20 sources) Insulin Analog Start: 12-06-2023 End: 05-02-2024 Insulin Lispro (Humalog Kwikpen Insulin) 200 unit/mL (3 mL) insulin pen Active 170 U SC ONCE 76.5 May 02, 2024 1:11pm Diabetes mellitus Type 2 diabetes mellitus with hyperglycemia FDC (current) use of insulin to be used in insulin pump Start: 08-09-2023 End: 01-31-2024 Insulin Lispro (Humalog U-10 0 Insulin) 100 unit/mL solution Discontinued 155 U continuous subcutaneous infusion .continuous 140 3 August 09, 2023 3:50pm January 31, 2024 12:45pm Diabetes mellitus Type 2 diabetes mellitus without complications Start: 08-03-2023 End: 08-09-2023 Insulin Lispro (Humalog U-10 0 Insulin) 100 unit/mL solution Discontinued 150 U continuous subcutaneous infusion .continuous 135 August 03, 2023 11:17am August 09, 2023 3:52pm Diabetes mellitus Type 2 diabetes mellitus without complications Start: 07-28-2021 End: 08-03-2023 Insulin Lispro (Humalog U-10 0 Insulin) 100 unit/mL solution Discontinued 100 U continuous subcutaneous infusion .continuous 90 August 08, 2022 12:22pm August 03, 2023 11:18am Start: 06-11-2021 End: 07-28-2021 Insulin Lispro (Humalog Kwik pen Insulin) 200 unit/mL (3 mL) insulin pen Discontinued 35 U SC THREE TIMES A DAY 18 June 11, 2021 12:00am July 28, 2021 3:30pm levothyroxine sodium 0.112 mg oral tablet (20 sources) l-Thyroxine Start: 10-21-2024 take 1 tablet by mouth once daily Levothyroxine 112 mcg tablet Active 112 ug PO daily October 21, 2024 12:00am Start: 01-31-2024 End: 10-21-2024 take 1 tablet by mouth once daily Levothyroxine 125 mcg tablet Discontinued 125 ug PO daily 90 1 May 02, 2024 4:56pm October 21, 2024 8:42am Hypothyroidism Hypothyroidism, unspecified Start: 02-15-2023 End: 01-31-2024 take 1 tablet [...] 01, 2013 12:00am November 01, 2023 11:50am pantoprazole 40 mg delayed release oral tablet (20 sources) Proton Pump Inhibitor Start: 10-05-2024 take 1 tablet by mouth once daily Pantoprazole 40 mg tablet,delayed release (DR/EC) Active 40 mg PO DAILY October 05, 2024 12:00am Start: 02-15-2023 End: 05-16-2024 take 1 tablet by mouth at bedtime Pantoprazole 40 mg tablet,delayed release (DR/EC) Discontinued 40 mg PO AT BEDTIME 90 0 July 19, 2023 7:22am May 16, 2024 2:13pm PARoxetine hydrochloride 40 mg oral tablet (20 [...] on above: Take one(1) tablet d aily. polysaccharide iron complex 150 mg oral capsule (6 sources) Start: 10-05-2024 Polysaccharide Iron Complex (Ferrex 150) 150 mg iron capsule Active 150 mg PO DAILY October 05, 2024 12:00am sulfamethoxazole 800 mg / trimethoprim 160 mg oral tablet (20 sources) Dihydrofolate Reductase Inhibitor Antibacterial, Sulfonamide Antimicrobial Start: 10-05-2024 Sulfamethoxazole-Trimeth oprim 800-160 mg tablet Active 1 {tbl} PO AT BEDTIME October 05, 2024 12:00am Start: 05-11-2022 End: 02-15-2023 Sulfamethoxazole-Trimethopri m 800-160 mg tablet Discontinued 1 {tbl} PO DAILY May 11, 2022 1:00am February 15, 2023 3:18pm Methicillin resistant Staphylococcus aureus infection Methicillin resistant Staphylococcus aureus infection, 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 site 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 Start: 05-11-2022 End: 02-15-2023 take 1 tablet by mouth once daily Sulfamethoxazole-Trimethoprim Discontinu ed 1 TABLET PO DAILY May 11, 2022 1:00am February 15, 2023 3:18pm 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 valsartan 320 mg oral tablet (10 sources) Angiotensin 2 Receptor Remy Start: 03-07-2023 take 1 tablet by mouth at bedtime Valsartan 320 mg tablet Active 320 mg PO AT BEDTIME March 07, 2023 1:00am zolpidem tartrate 10 mg oral tablet (20 sources) gamma-Aminobutyric Acid-ergic Agonist Start: 12-01-2013 take 5 mg by mouth at bedtime as needed for sleep Zolpidem (Ambien) 10 MG tablet Active 5 mg PO AT BEDTIME as needed for sleep December 01, 2013 12:00am Completed/Discontinued Medications Medication Drug Class(es) Dates Sig (Normalized) Sig (Original) acetaminophen 325 mg / HYDROcodone bitartrate 5 mg oral tablet (20 sources) Opioid Agonist Start: 11-18-2018 End: 11-24-2018 Hydrocodone-Acetami nophen 1 TABLET tablet Discontinued 1 {tbl} PO EVERY 4 HOURS NEEDED as needed for Pain 4 2 0 November 18, 2018 November 19, 2018 12:00am November 24, 2018 12:08am Pain, unspecified Start: 11-18-2018 End: 11-24-2018 take 1 tablet by mouth every four hours as needed Hydrocodone-Acetaminophen Discontinued 1 TABLET PO EVERY 4 HOURS NEEDED 4 2 November 18, 2018 November 24, 2018 12:08am amoxicillin 500 mg oral capsule (16 sources) Penicillin-class Antibacterial Start: 03-25-2022 End: 04-04-2022 take 1 capsule by mouth three times daily Amoxicillin 500 mg capsule Discontinued 500 mg PO THREE TIMES A DAY 30 10 0 March 25, 2022 1:00am April 03, 2022 1:00am April 04, 2022 1:04am Blood-Glucose Sensor (Dexcom G6 Sensor) device (20 sources) Start: 05-15-2023 End: 12-06-2023 Blood-Glucose Sensor (Dexcom G6 Sensor) device Discontinued 0 .ROUTE .MEDSUPPLY 3 May 15, 2023 4:52pm December 06, 2023 3:44pm As directed Start: 05-15-2023 End: 12-06-2023 Blood-Glucose Sensor (Dexcom G6 Sensor) device Discontinued 0 .ROUTE .MEDSUPPLY 3 May 15, 2023 4:52pm December 06, 2023 [...] G6 Sensor) device Active 0 .ROUTE .MEDSUPPLY October 05, 2022 4:59pm As directed Start: 02-24-2022 End: 10-05-2022 Blood-Glucose Sensor (Dexcom G6 Sensor) device Discontinued 0 .ROUTE .MEDSUPPLY 3 February 24, 2022 8:50am October 05, 2022 4:59pm As directed Start: 02-24-2022 End: 10-05-2022 Blood-Glucose Sensor (Dexcom G6 Sensor) device Discontinued 0 .ROUTE .MEDSUPPLY February 24, 2022 7:50am October 05, 2022 3:59pm As directed Start: 02-24-2022 End: 10-05-2022 Blood-Glucose Sensor (Dexcom G6 Sensor) device Discontinued 0 .ROUTE .MEDSUPPLY February 24, 2022 8:50am October 05, 2022 4:59pm As directed Start: 02-24-2022 Blood-Glucose Sensor (Dexcom G6 Sensor) device Active 0 .ROUTE .MEDSUPPLY February 24, 2022 8:50am As directed Start: 07-23-2021 Blood-Glucose Sensor (Dexcom G6 Sensor) device Active 0 .ROUTE .MEDSUPPLY July 23, 2021 7:51am As directed Start: 07-23-2021 End: 02-24-2022 Blood-Glucose Sensor (Dexcom G6 Sensor) device Discontinued 0 .ROUTE .MEDSUPPLY 3 6 July 23, 2021 12:00am February 24, 2022 8:51am As directed Start: 07-23-2021 End: 02-24-2022 Blood-Glucose [...] Sensor) device Active 0 .ROUTE .MEDSUPPLY July 22, 2021 11:00pm As directed Start: 07-23-2021 Blood-Glucose Sensor (Dexcom G6 Sensor) device Active 0 .ROUTE .MEDSUPPLY July 23, 2021 12:00am As directed Blood-Glucose Transmitter (Dexcom G6 Transmitter) device (20 sources) Start: 01-12-2023 End: 12-06-2023 Blood-Glucose Transmitter (Dexcom G6 Transmitter) device Discontinued 0 .ROUTE .MEDSUPPLY 1 January 12, 2023 11:31am December 06, 2023 3:44pm Diabetes mellitus Type 2 diabetes mellitus with hyperglycemia 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 of insulin 1 transmitter q 90 days Start: 01-12-2023 End: 12-06-2023 Blood-Glucose Transmitter (D excom G6 Transmitter) device Discontinued 0 .ROUTE .MEDSUPPLY January 12, 2023 11:31am December 06, 2023 3:44pm 1 transmitter q 90 days Start: 01-12-2023 Blood-Glucose Transmitter (Dexcom G6 Transmitter) device Active 0 .ROUTE .MEDSUPPLY 1 January 12, 2023 10:31am 1 transmitter q 90 days Start: 01-12-2023 Blood-Glucose Transmitter (Dexcom G6 Transmitter) device Active 0 .ROUTE .MEDSUPPLY January 12, 2023 11:31am 1 transmitter q 90 days Start: 07-23-2021 Blood-Glucose Transmitter (Dexcom G6 Transmitter) device Active 0 .ROUTE .MEDSUPPLY 1 July 23, 2021 7:52am As directed Start: 07-23-2021 End: 01-12-2023 Blood-Glucose Transmitter (D excom G6 Transmitter) device Discontinued 0 .ROUTE .MEDSUPPLY 1 July 23, 2021 12:00am January 12, 2023 11:31am As directed Start: 07-23-2021 End: 01-12-2023 Blood-Glucose Transmitter (D excom G6 Transmitter) device Discontinued 0 .ROUTE .MEDSUPPLY 1 July 22, 2021 11:00pm January 12, 2023 10:31am As directed Start: 07-23-2021 End: 01-12-2023 Blood-Glucose Transmitter (D excom G6 Transmitter) device Discontinued 0 .ROUTE .MEDSUPPLY 1 July 23, 2021 12:00am January 12, 2023 11:31am As directed Start: 07-23-2021 Blood-Glucose Transmitter (Dexcom G6 Transmitter) device Active 0 .ROUTE .MEDSUPPLY 1 July 22, 2021 11:00pm As directed Start: 07-23-2021 Blood-Glucose Transmitter (Dexcom G6 Transmitter) device Active 0 .ROUTE .MEDSUPPLY 1 July 23, 2021 12:00am As directed cephalexin 500 mg oral capsule (16 sources) Cephalosporin Antibacterial Start: 05-11-2022 End: 02-15-2023 Cephalexin 500 mg capsule Discontinued 500 mg PO .6hr May 11, 2022 1:00am February 15, 2023 3:19pm Methicillin resistant Staphylococcus aureus infection Methicillin resistant Staphylococcus aureus infection, unspecified site dapagliflozin 10 mg oral tablet (7 sources) Sodium-Glucose Cotransporter 2 Inhibitor Start: 08-03-2023 End: 05-02-2024 take 1 tablet by mouth once daily Dapagliflozin Propanediol 10 mg tablet Discontinued 10 mg PO daily August 03, 2023 12:00am May 02, 2024 12:46pm doxycycline hyclate 100 mg oral capsule (20 sources) Tetracycline-class Drug Start: 03-29-2022 End: 04-08-2022 take 1 capsule by mouth twice daily Doxycycline Hyclate 100 mg capsule Discontinued 100 mg PO TWICE A DAY 20 March 29, 2022 1:00am April 07, 2022 1:00am April 08, 2022 1:05am Acute sinusitis, unspecified Start: 02-03-2021 take 100 mg by mouth [...] insulin pen Discontinued 80 U SC DAILY 12 July 22, 2021 10:56am July 28, 2021 3:30pm 3 ml insulin detemir 100 unt/ml pen injector (20 sources) Insulin Analog Start: 09-12-2014 End: 04-01-2016 Insulin Detemir U-100 (Levemir Flextouch U100 Insulin) 100 UNITS/ML Insuln.Pen Discontinued 46 U SC AT BEDTIME 2 3 September 12, 2014 9:16am April 01, 2016 1:20pm Start: 09-12-2014 End: 04-01-2016 Insulin Detemir U-100 (Levem ir Flextouch U-100 Insuln) 100 UNITS/ML Insuln.Pen Discontinued 46 UNITS SC AT BEDTIME 2 September 12, 2014 9:16am April 01, 2016 [...] 2023 4:40pm methylPREDNISolone 4 mg oral tablet (16 sources) Corticosteroid Start: 03-29-2022 End: 04-04-2022 take 1 tablet by mouth once Methylprednisolone (Medrol (Jaime)) 4 mg tablets,dose pack Discontinued 4 mg PO per package directions 21 6 0 March 29, 2022 1:00am April 03, 2022 1:00am April 04, 2022 1:04am ondansetron 4 mg disintegrating oral tablet (19 sources) Serotonin-3 Receptor Antagonist Start: 02-03-2022 End: 02-15-2023 take 1 tablet by mouth every six hours as needed for nausea and vomiting Ondansetron 4 mg tablet,disintegratin g Discontinued 4 mg PO EVERY 6 HOURS as needed for nausea and vomiting 10 February 03, 2022 1:00am February 15, 2023 3:18pm pioglitazone 30 mg oral tablet (20 sources) Peroxisome Proliferator Receptor alpha Agonist, Peroxisome Proliferator Receptor gamma Agonist, Thiazolidinedione Start: 02-03-2021 End: 05-13-2021 take 1 tablet by mouth once daily Pioglitazone 30 mg Tablet Discontinued 30 mg PO DAILY February 03, 2021 1:00am May 13, 2021 10:09am valACYclovir 1000 mg oral tablet (16 sources) Herpesvirus Nucleoside Analog DNA Polymerase Inhibitor, Herpes Simplex Virus Nucleoside Analog DNA Polymerase Inhibitor, Herpes Zoster Virus Nucleoside Analog DNA Polymerase Inhibitor Start: 03-29-2022 End: 04-05-2022 Valacyclovir 1 gram tablet Discontinued 1000 mg PO THREE TIMES A DAY 21 7 0 March 29, 2022 1:00am April 04, 2022 1:00am April 05, 2022 1:04am Start: 03-29-2022 End: 04-05-2022 take 1000 mg by mouth three times daily Valacyclovir Discontinued 1000 MG PO THREE TIMES A DAY 14 10March 29, 2022 1:00am April 05, 2022 1:04am Problems Active Problems Problem Classification Problem Date Documented Date Episodic/Chronic Abdominal pain (20 sources) Right lower quadrant pain; Translations: [Right lower quadrant pain] Episodic Asthma (20 sources) Asthma; Translations: [Unspecified asthma, uncomplicated] 11-18-2018 Chronic Chronic kidney disease (17 sources) Chronic kidney disease stage 3; Translations: [Stage 3 chronic kidney disease] 08-17-2022 Chronic Coronary atherosclerosis and other heart disease (12 sources) Acute coronary syndrome; Translations: [Acute ischemic heart disease, unspecified] 10-05-2024 Chronic Deficiency and other anemia (4 sources) Anemia, unspecified; Translations: [Anemia, unspecified] Onset: 10-17-2024 02-15-2023 Episodic Diabetes mellitus with complications (1 source) Type 2 diabetes mellitus with hyperglycemia; Translations: [Type 2 diabetes mellitus with hyperglycemia] Onset: 07-09-2024 Chronic Diabetes mellitus without complication (20 sources) Diabetes mellitus; Translations: [Type 2 diabetes mellitus without complications] Onset: 05-02-2024 Chronic Disorders of lipid metabolism (20 sources) Hypercholesterolemia; Translations: [Pure hypercholesterolemia, unspecified] Chronic Essential hypertension (20 sources) Hypertensive disorder; Translations: [Essential (primary) hypertension] Onset: 10-24-2024 Chronic Fever of unknown origin (20 sources) Fever; Translations: [Fever, unspecified] Episodic Genitourinary symptoms and ill-defined conditions (20 sources) History of chronic renal impairment; Translations: [Personal history of other diseases of urinary system] Episodic Headache; including migraine (20 sources) Headache; Translations: [Headache] 11-19-2018 Episodic Malaise and fatigue (16 sources) Fatigue; Translations: [Other fatigue] Onset: 10-22-2024 03-06-2023 Episodic Mood disorders (15 sources) Depressive disorder; Translations: [Depression] 03-06-2023 Chronic Nausea and vomiting (20 sources) Nausea; Translations: [Nausea] Episodic Nonspecific chest pain (14 sources) Chest pain; Translations: [Chest pain, unspecified] Onset: 10-09-2024 10-05-2024 Episodic Nutritional deficiencies (20 sources) Vitamin D deficiency; Translations: [Vitamin D deficiency, unspecified] Chronic Other connective tissue disease (1 source) Other symptoms and signs involving the musculoskeletal system; Translations: [Other symptoms and signs involving the musculoskeletal system] Onset: 10-24-2024 Episodic Other diseases of veins and lymphatics (20 sources) Disorder of soft tissue of lower limb; Translations: [Lymphangitis] 02-11-2021 Chronic Other injuries and conditions due to external causes (19 sources) Systemic inflammatory response syndrome; Translations: [Systemic [...] Chronic Other nutritional; endocrine; and metabolic disorders (19 sources) Body mass index 30+ - obesity; Translations: [Obesity, unspecified] 11-24-2021 Chronic Other nutritional; endocrine; and metabolic disorders (14 sources) Obesity, unspecified; Translations: [Obesity, unspecified] Chronic Other nutritional; endocrine; and metabolic disorders (16 sources) Obesity; Translations: [Obesity, unspecified] 08-17-2022 Chronic Other nutritional; endocrine; and metabolic disorders (19 sources) H/O: diabetes mellitus; Translations: [Personal history of other endocrine, nutritional and metabolic disease] 02-03-2022 Episodic Other nutritional; endocrine; and metabolic disorders (3 sources) Personal history of other endocrine, nutritional and metabolic disease; Translations: [Personal history of other endocrine, metabolic, and immunity disorders] Episodic Other upper respiratory infections (17 sources) Acute pharyngitis; Translations: [Acute pharyngitis, unspecified] 03-25-2022 Episodic Skin and subcutaneous tissue infections (20 sources) Cellulitis of lower limb; Translations: [Cellulitis of right lower limb] 02-11-2021 Episodic Thyroid disorders (20 sources) Subclinical hypothyroidism; Translations: [Other specified hypothyroidism] Onset: 01-11-2024 Chronic Viral infection (17 sources) Herpes zoster; Translations: [Zoster without complications] 03-29-2022 Episodic Past or Other Problems Problem Classification Problem Date Documented Da te Episodic/Chronic Abdominal hernia (9 sources) Incisional hernia; Translations: [Incisional hernia without obstruction or gangrene] Onset: 05-10-2024 2024 Episodic Other aftercare (1 source) FDC (current) use of insulin; Translations: [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 of insulin] Onset: 05-02-2024 Episodic Other lower respiratory disease (1 source) Wheezing; Translations: [Wheezing] Onset: 04-04-2024 Episodic Other screening for suspected conditions (not mental disorders or infectious disease) (1 source) Encounter for screening mammogram for malignant neoplasm of breast; Translations: [Encounter for screening mammogram for malignant neoplasm of breast] Onset: 02-14-2024 Episodic Residual codes; unclassified (1 source) Chills (without fever); Translations: [Chills (without fever)] Onset: 04-04-2024 Episodic Results Test Name Value Interpretation Reference Range Facility Surgery Visit Reporton 10-21 Surgery Visit Report [facility] [address] [place] [address] [address] [place] [address] OFFICE VISIT Date of Service: 10/21/24 MR#: [id number] Acct: [id number] Name: ARLEN NGUYEN Rep #: [id number] : 1970 Provider: Dr. Jodi back MD Age/Sex: 54/F Location: [facility] Status: Signed Intake Vital Signs 10/05/24 21:47 10/21/24 08:40 Height 5 ft 7 in 5 ft 7 in Weight: 287 lb BMI 44.9 BP 128/80 H Blood Pressure Location Rt radial Position Sitting Respiration 16 Pulse 70 Pulse Oximetry (%) 98 Oxygen Delivery Method room air Intake Visit Reasons: ANEMIA/BLOOD IN STOOL Chief Complaint: anemia/blood in stool Automation Lead Required: No Is patient in pain?: No Allergies nut - unspecified Allergy (Verified 10/21/24 08:41) Anaphylaxis peanut Allergy (Verified 10/21/24 08:41) Anaphylaxis shellfish derived Allergy (Verified 10/21/24 08:41) Anaphylaxis codeine Adverse Reaction (Verified 10/21/24 08:41) Rash prednisone Adverse Reaction (Verified 10/21/24 08:41) Other sertraline HCl (From Zoloft) Adverse Reaction (Verified 10/21/24 08:41) Other Medications ???Medication ???Instructions ???Recorded ???Confirmed ???Type albuterol sulfate 90 mcg/actuation 1 puff inhalation Q4H PRN PRN 10/21/24 History aerosol inhaler (Ventolin HFA) Shortness Of Breath zolpidem 10 mg tablet (Ambien) 5 mg PO QHS PRN sleep 12/01/13 History epinephrine 0.3 mg/0.3 mL 0.3 mg (0.3 mL) IJ X1 PRN 02/03/19 10/21/24 Rx injection, auto-injector Anaphylaxis ##1 atorvastatin 40 mg tablet 40 mg PO DAILY 02/03/21 10/21/24 H istory cetirizine 10 mg tablet 10 mg PO DAILY 02/03/21 10/21/24 H istory valsartan 320 mg tablet 320 mg PO QHS 03/07/23 10/21/24 Hi story metformin 1,000 mg tablet 1,000 mg PO BID 11/01/23 10/21/24 History paroxetine HCl 40 mg tablet 40 mg PO QDAY 11/01/23 10/21/24 Hi story insulin lispro 200 unit/mL (3 mL) 170 unit (0.85 mL) subcut ONCE 10/21/24 Rx subcutaneous pen (Humalog KwikPen #76.5 mL U-200 Insulin) empagliflozin 25 mg tablet 25 mg PO QDAY #90 tabs 06/10/24 Rx (Jardiance) finerenone 10 mg tablet (Kerendia) 10 mg PO DAILY 10/05/24 10/21/24 History pantoprazole 40 mg tablet,delayed 40 mg PO DAILY 10/05/24 10/21/24 History release polysaccharide iron complex 150 mg 150 mg PO DAILY 10/05/24 5 History iron capsule (Ferrex) sulfamethoxazole 800 1 tab PO QHS 10/05/24 10/21/24 His tory mg-trimethoprim 160 mg tablet gabapentin 100 mg capsule 100 mg PO TID 10/21/24 10/21/24 Hi story levothyroxine 112 mcg tablet 112 mcg PO QDAY 10/21/24 10/21/24 History Have you fallen in the past year?: No PFSH Medical History Acute coronary syndrome Post-menopausal Wears contact lenses Anxiety Thyroid disease [...] with BMI of 45.0-49.9, adult Surgical History S/P section History of endometrial ablation History of removal of ovarian cyst History of cholecystectomy Family History (Updated 10/21/24 @ 08:43 by Amanda Pillai) Daughter Bleeding disorder Brother Diabetes Hypertension CAD (coronary artery disease) Sister Diabetes Other Alcohol abuse Anxiety Arthritis Asthma Bowel disease Depression Severe allergy Social History (Updated 10/21/24 @ 08:40 by Amanda Pillai) household members: none Smoking Status: Never smoker substance use type: does not use what type of physical activity do you participate in: walking HPI HPI HPI: 54-year-old female presents due to a fecal occult blood her EGD and colonoscopy. Patient just had EGD and colonoscopy in February 2023 patient was given 5 years for repeat colonoscopy due to adoption history. Patient states she has been feeling very fatigued and tired denies any obvious blood in her stool. Patient did have hemorrhoids on previous colonoscopy. Patient states she is also having episodes of low heart rate and dizziness even after exercise like climbing stairs. Patient does have upcoming appoint with cardiology patient did have an echo an (more content not included)... Normal [facility] Folates, RBCon 10-18-2024 Fol.,Hemolysate 581.0 ng/mL Normal Not Estab. [facility] Comment on above: Performed By: #### L 100.0100, L503.6550, M200.1000, L3890.6006, M100.2200, L500.4050, L400.0001, L503.6030, L501.9520, L503.0106, L3400.8000, L3100.1725, L3100.7870, L101.9900 ####[facility] [address] [place], [address] Folate, RBC 1505 ng/mL Normal >498 [facility] Comment on above: Result Comment: Perf ormed at: - [facility] [id number] Chief School Finance Officer: Spencer Carbajal PhD, Phone: [phone] Performed By: #### L 100.0100, L503.6550, M200.1000, L3890.6006, M100.2200, L500.4050, L400.0001, L503.6030, L501.9520, L503.0106, L3400.8000, L3100.1725, L3100.7870, L101.9900 ####[facility] [address] [place], [address] Hematocrit (Bld) [Volume fraction] 38.6 % Normal 34.0-46.6 [facility] Comment on above: Performed By: #### L 100.0100, L503.6550, M200.1000, L3890.6006, M100.2200, L500.4050, L400.0001, L503.6030, L501.9520, L503.0106, L3400.8000, L3100.1725, L3100.7870, L101.9900 ####[facility] [address] [place], [place], [id number] Quantiferon TB-Gold+on 10-18 QFT MITOGEN KATHRYN > 10.00 Normal . [facility] Comment on above: Performed By: #### L 100.0100, L503.6550, M200.1000, L3890.6006, M100.2200, L500.4050, L400.0001, L503.6030, L501.9520, L503.0106, L3400.8000, L3100.1725, L3100.7870, L101.9900 ####[facility] [address] [place], [place], [id number] QFT NIL VALUE 0.05 IU/mL Normal . [facility] Comment on above: Performed By: #### L 100.0100, L503.6550, M200.1000, L3890.6006, M100.2200, L500.4050, L400.0001, L503.6030, L501.9520, L503.0106, L3400.8000, L3100.1725, L3100.7870, L101.9900 ####[facility] [address] [place], [place], [id number] QFT TB GOLD+ Comment Normal . [facility] Comment on above: Result Comment: Jim tiFERON-TB Gold Plus is a qualitative indirect test for M tuberculosis infection (including disease) and is intended for use in conjunction with risk assessment, radiography, and other medical and diagnostic evaluations. The QuantiFERON-TB Gold Plus result is determined by subtracting the Nil value from either TB antigen (Ag) value. The Mitogen tube serves as a control for the test. Performed By: #### L 100.0100, L503.6550, M200.1000, L3890.6006, M100.2200, L500.4050, L400.0001, L503.6030, L501.9520, L503.0106, L3400.8000, L3100.1725, L3100.7870, L101.9900 ####[facility] [address] [place], [place], [id number] QFT TB POS CRIT Negative Normal Negative [facility] Comment on above: Result Comment: No r esponse to M tuberculosis antigens detected. Infection with M tuberculosis is unlikely, but high risk individuals should be considered for additional testing (ATS/IDSA/CDC Clinical Practice Guidelines, 2017). The reference range is an Antigen minus Nil result of <0.35 IU/mL. The specimen received for QuantiFERON testing was incubated by the ordering institution. Specific procedures outlined in our Directory of Services and in the package insert for the QuantiFERON Gold (In Tube) test must be followed to enable for proper stimulation of cells for the production of interferon gamma. Chemiluminescence immunoassay methodology Performed By: #### L 100.0100, L503.6550, M200.1000, L3890.6006, M100.2200, L500.4050, L400.0001, L503.6030, L501.9520, L503.0106, L3400.8000, L3100.1725, L3100.7870, L101.9900 ####[facility] [address] [place], [address] QFT TB1+ AG KATHRYN 0.05 IU/mL Normal . [facility] Comment on above: Performed By: #### L 100.0100, L503.6550, M200.1000, L3890.6006, M100.2200, L500.4050, L400.0001, L503.6030, L501.9520, L503.0106, L3400.8000, L3100.1725, L3100.7870, L101.9900 ####[facility] [address] [place], [place], [id number] QFT TB2+ AG KATHRYN 0.06 IU/mL Normal . [facility] Comment on above: Performed By: #### L 100.0100, L503.6550, M200.1000, L3890.6006, M100.2200, L500.4050, L400.0001, L503.6030, L501.9520, L503.0106, L3400.8000, L3100.1725, L3100.7870, L101.9900 ####[facility] [address] [place], [place], [id number] Absolute lymphocyte countOrd ered By: Phu Espinoza on 10-16-2024 Lymphocytes Auto (Unsp spec) [#/Vol] 3.06 10*3/uL 0.83-4.51 [facility] Absolute neutrophil countOrd ered By: Phu Espinoza on 10-16-2024 Neutrophils (Bld) [#/Vol] 4.4 10*3/uL 2.0-7.7 [facility] Anion gap in Serum or Plasma Ordered By: Phu Espinoza on 10-16-2024 Anion gap [Moles/Vol] 16 mmol/L High 5-15 [facility] Automated blood erythrocyte countOrdered By: Phu Espinoza on 10-16-2024 RBC (Bld) [#/Vol] 4.63 10*6/uL Normal 4.2-5.4 [facility] Comment on above: Performed By: #### L 501.4021, L501.5200 #### [facility] [address] [place], [place], [id number] Automated blood hematocrit ( percentage)Ordered By: Phu Espinoza on 10-16-2024 Hematocrit (Bld) [Volume fraction] 35.6 % Low 37-47 [facility] Comment on above: Performed By: #### L 501.4021, L501.5200 #### [facility] [address] [place], [place], [id number] Automated lymphocyte count a s percentage of total leukocytesOrdered By: Phu Espinoza on 10-16-2024 Lymphocytes/100 WBC Auto (Unsp spec) 35.6 % 19-41 [facility] BUN/creatinine ratioOrdered By: Phu Espinoza on 10-16-2024 Urea nitrogen/Creatinine [Mass ratio] 23.2 mg/mg High 10-20 [facility] Basophil percentageOrdered B y: Phu Espinoza on 10-16-2024 Basophils/100 WBC (Bld) 0.7 % Normal 0-1 [facility] Comment on above: Performed By: #### L 501.4021, L501.5200 #### [facility] [address] [place], [address] Bilirubin, totalOrdered By: Phu Espinoza on 10-16-2024 Bilirubin [Mass/Vol] 0.25 mg/dL 0.00-1.30 [facility] CBC W/Diff, Automatedon -2 -2024 Absolute Lymph 3.06 X10 3/uL Normal 0.83-4.51 [facility] Comment on above: Performed By: #### L 501.4021, L501.5200 #### [facility] [address] [place], [address] Absolute Neut 4.4 X10 3/uL Normal 2.0-7.7 [facility] Comment on above: Performed By: #### L 501.4021, L501.5200 #### [facility] [address] [place], [address] IG% 0.200 Normal 0.0-0.9 [facility] Comment on above: Result Comment: IG% - Immature Granulocytes (promyelocytes, myelocytes and metamyelocytes) > 1% indicates that a LEFT SHIFT is Present. Performed By: #### L 501.4021, L501.5200 #### [facility] [address] [place], [address] Lymphocytes/100 WBC (Bld) 35.6 % Normal 19-41 [facility] Comment on above: Performed By: #### L 501.4021, L501.5200 #### [facility] [address] [place], [address] Nucleated RBC (Bld) [#/Vol] 0 10*3/uL Normal 0-5 [facility] Comment on above: Performed By: #### L 501.4021, L501.5200 #### [facility] [address] [place], [address] RDW SD 44.2 fl High 35.1-43.9 [facility] Comment on above: Performed By: #### L 501.4021, L501.5200 #### [facility] [address] [place], [address] CRPon 10-16-2024 C-REACTIVE PROT < 3.00 Normal 0.0-3.0 [facility] Comment on above: Performed By: #### L 501.4021, L501.5200 #### [facility] [address] [place], [address] Carbon dioxide, total [Moles /volume] in Central venous bloodOrdered By: Phu Espinoza on 10-16-2024 CO2 [Moles/Vol] 21.1 mmol/L 21.0-32.0 [facility] Chloride assayOrdered By: Sloan Espinoza on 10-16-2024 Chloride [Moles/Vol] 104 mmol/L 98-108 [facility] Comprehensive Metabolic Prof ilon 10-16-2024 Albumin [Mass/Vol] 4.4 g/dL Normal 3.5-5.[address] [facility] Comment on above: Performed By: #### L 501.4021, L501.5200 #### [facility] [address] [place], [address] Albumin/Globulin [Mass ratio] 1.3 {ratio} Normal 0.9-2.4 [facility] Comment on above: Performed By: #### L 501.4021, L501.5200 #### [facility] [address] [place], [address] ALK PHOS 51 U/L Normal 35-104 [facility] Comment on above: Performed By: #### L 501.4021, L501.5200 #### [facility] [address] [place], [address] ALT [Catalytic activity/Vol] 82 U/L High <=34 [facility] Comment on above: Performed By: #### L 501.4021, L501.5200 #### [facility] [address] [place], [address] AST [Catalytic activity/Vol] 67 U/L High <=31 [facility] Comment on above: Performed By: #### L 501.4021, L501.5200 #### [facility] [address] [place], [address] Bilirubin [Mass/Vol] 0.25 mg/dL Normal 0.00-1.30 [facility] Comment on above: Performed By: #### L 501.4021, L501.5200 #### [facility] [address] [place], [address] BUN/CRE 23.2 RATIO High 10-20 [facility] Comment on above: Performed By: #### L 501.4021, L501.5200 #### [facility] [address] [place], [address] Calcium [Mass/Vol] 10.1 mg/dL Normal 7.6-11.[address] [facility] Comment on above: Performed By: #### L 501.4021, L501.5200 #### [facility] [address] [place], [address] Chloride [Moles/Vol] 104 mmol/L Normal 98-108 [facility] Comment on above: Performed By: #### L 501.4021, L501.5200 #### [facility] [address] [place], [address] CO2 [Moles/Vol] 21.1 mmol/L Normal 21.0-32.0 [facility] Comment on above: Performed By: #### L 501.4021, L501.5200 #### [facility] [address] [place], [address] Creatinine [Mass/Vol] 1.51 mg/dL High 0.70-1.20 [facility] Comment on above: Performed By: #### L 501.4021, L501.5200 #### [facility] [address] [place], [address] GAP 16 High 5-15 [facility] Comment on above: Performed By: #### L 501.4021, L501.5200 #### [facility] [address] [place], [address] GFR/1.73 sq M.predicted among non-blacks MDRD (S/P/Bld) [Vol rate/Area] 41 mL/min/{1.73_m2} Low >60 [facility] Comment on above: Result Comment: mL/m in/1.73m2 CKD-EPI Creatinine Equation (2020) Performed By: #### L 501.4021, L501.5200 #### [facility] [address] [place], [address] Globulin (S) [Mass/Vol] 3.3 g/dL Normal 2.2-4.2 [facility] Comment on above: Performed By: #### L 501.4021, L501.5200 #### [facility] [address] [place], [address] Glucose [Mass/Vol] 84 mg/dL Normal 70-[address] [facility] Comment on above: Performed By: #### L 501.4021, L501.5200 #### [facility] [address] [place], [address] Potassium [Moles/Vol] 4.2 mmol/L Normal 3.3-5.1 [facility] Comment on above: Performed By: #### L 501.4021, L501.5200 #### [facility] [address] [place], [address] Sodium [Moles/Vol] 141 mmol/L Normal 133-[address] [facility] Comment on above: Performed By: #### L 501.4021, L501.5200 #### [facility] [address] [place], [address] T PROT 7.6 g/dL Normal 5.9-8.4 [facility] Comment on above: Performed By: #### L 501.4021, L501.5200 #### [facility] [address] [place], [address] Urea nitrogen [Mass/Vol] 35 mg/dL High 4-19 [facility] Comment on above: Performed By: #### L 501.4021, L501.5200 #### [facility] [address] [place], [address] Eosinophil percentageOrdered By: Phu Espinoza on 10-16-2024 Eosinophils/100 WBC (Bld) 1.5 % Normal 0-5 [facility] Comment on above: Performed By: #### L 501.4021, L501.5200 #### [facility] [address] [place], [address] Erythrocyte Sed Rateon 10-16 SED RATE 26 mm/hr Normal 0-30 [facility] Comment on above: Performed By: #### L 501.4021, L501.5200 #### [facility] [address] [place], [address] Erythrocyte distribution wid th ratioOrdered By: Phu Espinoza on 10-16-2024 Erythrocyte distribution width (RBC) [Ratio] 16.0 % High 11.6-14.6 [facility] Comment on above: Performed By: #### L 501.4021, L501.5200 #### [facility] [address] [place], [address] Erythrocyte distribution wid th standard deviationOrdered By: Phu Espinoza on 10-16-2024 Erythrocyte distribution width (RBC) [Ratio] 44.2 fl High 35.1-43.9 [facility] Erythrocyte sedimentation ra teOrdered By: Phu Espinoza on 10-16-2024 ESR (Bld) [Velocity] 26 mm/h 0-30 [facility] Glomerular filtration rate ( GFR) estimation/1.73 sq m using serum, plasma, or whole bOrdered By: hPu Espinoza on 10-16-2024 GFR/1.73 sq M.predicted among non-blacks MDRD (S/P/Bld) [Vol rate/Area] 41 mL/min/{1.73_m2} Low >60 [facility] Comment on above: mL/min/1.73m2 CKD-EP I Creatinine Equation (2020) Hemoglobin measurementOrdere d By: Phu Espinoza on 10-16-2024 Hemoglobin (Bld) [Mass/Vol] 11.2 g/dL Low 12.0-15.0 [facility] Comment on above: Performed By: #### L 501.4021, L501.5200 #### [facility] [address] [place], [address] Immature granulocytes/100 WB C Auto (Bld)Ordered By: Phu Espinoza 10-16-2024 Immature granulocytes/100 WBC (Bld) 0.200 % 0.0-0.9 [facility] Comment on above: IG% - Immature Granu locytes (promyelocytes, myelocytes and metamyelocytes) > 1% indicates that a LEFT SHIFT is Present. Laboratory - Chemistry and C hemistry - challengeOrdered By: Phu Espinoza on 10-16-2024 AST [Catalytic activity/Vol] 67 U/L High <32 [facility] MCV (mean corpuscular volume ) determinationOrdered By: Phu Espinoza 10-16-2024 MCV (RBC) [Entitic vol] 76.9 fL Low 81-99 [facility] Comment on above: Performed By: #### L 501.4021, L501.5200 #### [facility] [address] [place], [address] Mean corpuscular hemoglobin (MCH) determinationOrdered By: Phu Espinoza on 10-16-2024 MCH (RBC) [Entitic mass] 24.2 pg Low 27.0-32.0 [facility] Comment on above: Performed By: #### L 501.4021, L501.5200 #### [facility] [address] [place], [address] Mean corpuscular hemoglobin concentration (MCHC) determinationOrdered By: Phu Espinoza on 10-16-2024 MCHC (RBC) [Mass/Vol] 31.5 g/dL Low 32-36 [facility] Comment on above: Performed By: #### L 501.4021, L501.5200 #### [facility] [address] [place], [address] Mean platelet volume determi nationOrdered By: Phu Espinoza on 10-16-2024 Platelet mean volume (Bld) [Entitic vol] 11.0 fL Normal 6.2-12.0 [facility] Comment on above: Performed By: #### L 501.4021, L501.5200 #### [facility] [address] [place], [address] Monocyte percentageOrdered B y: Phu Espinoza on 10-16-2024 Monocytes/100 WBC (Bld) 10.6 % High 0-10 [facility] Comment on above: Performed By: #### L 501.4021, L501.5200 #### [facility] [address] [place], [address] Neutrophil percentageOrdered By: Phu Espinoza on 10-16-2024 Neutrophils/100 WBC (Bld) 51.4 % Normal 47-70 [facility] Comment on above: Performed By: #### L 501.4021, L501.5200 #### [facility] [address] [place], [address] Nucleated red blood cell per centageOrdered By: Phu Espinoza on 10-16-2024 Nucleated RBC/100 WBC (Bld) [Ratio] 0 % 0-5 [facility] Platelet countOrdered By: Sloan Espinoza on 10-16-2024 Platelets (Bld) [#/Vol] 311 10*3/uL Normal 150-450 [facility] Comment on above: Performed By: #### L 501.4021, L501.5200 #### [facility] [address] [place], [address] Potassium measurement (mass/ volume)Ordered By: Phu Espinoza on 10-16-2024 Potassium (Unsp spec) [Mass/Vol] 4.2 mmol/L 3.3-5.1 [facility] Serum creatinine measurement (mass/volume)Ordered By: Phu Espinoza on 10-16-2024 Creatinine [Mass/Vol] 1.51 mg/dL High 0.70-1.20 [facility] Serum globulin measurementOr dered By: Phu Espinoza on 10-16-2024 Globulin (S) [Mass/Vol] 3.3 g/dL 2.2-4.2 [facility] Serum glucose measurement (m ass/volume)Ordered By: Phu Espinoza 10-16-2024 Glucose [Mass/Vol] 84 mg/dL 70-[address] [facility] Serum or plasma C reactive p rotein measurement (mass/volume)Ordered By: Phu Espinoza 10-16-2024 CRP [Mass/Vol] mg/L 0.0-3.0 [facility] Serum or plasma alanine tobar otransferase (ALT) measurementOrdered By: Phu Espinoza 10-16-2024 ALT [Catalytic activity/Vol] 82 U/L High <35 [facility] Serum or plasma albumin thiago urement (mass/volume)Ordered By: Phu Espinoza 10-16-2024 Albumin [Mass/Vol] 4.4 g/dL 3.5-5.[address] [facility] Serum or plasma albumin/glob ulin mass ratioOrdered By: Phu Espinoza 10-16-2024 Albumin/Globulin [Mass ratio] 1.3 {ratio} 0.9-2.4 [facility] Serum or plasma alkaline meg sphatase measurementOrdered By: [facility] 10-16-2024 ALP [Catalytic activity/Vol] 51 U/L 35-104 [facility] Serum or plasma calcium thiago urement (mass/volume)Ordered By: Phu Esipnoza on 10-16-2024 Calcium [Mass/Vol] 10.1 mg/dL 7.6-11.[address] [facility] Serum or plasma urea nitroge n measurement (mass/volume)Ordered By: [facility] on 10-16-2024 Urea nitrogen [Mass/Vol] 35 mg/dL High 4-19 [facility] Sodium levelOrdered By: [facility] on 10-16-2024 Sodium [Moles/Vol] 141 mmol/L 133-[address] [facility] Total proteinOrdered By: [facility] on 10-16-2024 Protein [Mass/Vol] 7.6 g/dL 5.9-8.[address] [facility] White blood cell (WBC) count Ordered By: Phu Alexis on 10-16-2024 WBC (Bld) [#/Vol] 8.6 10*3/uL Normal 4.4-11.[address] [facility] Comment on above: Performed By: #### L 501.4021, L501.5200 #### [facility] [address] [facility] [place], [place], [id number] Culture, Blood (WB)on 2024 CUB No growth in 5 days. Normal [facility] Comment on above: Performed By: #### L 100.0100, L503.6550, M200.1000, L3890.6006, M100.2200, L500.4050, L400.0001, L503.6030, L501.9520, L503.0106, L3400.8000, L3100.1725, L3100.7870, L101.9900 ####[facility] [address] [place], [address] CRP, High Sensitivity 184025 on 10-12-2024 CRP, HIGH SENS 0.43 mg/L Normal 0.00-3.00 [facility] Comment on above: Result Comment: Rela tive Risk for Future Cardiovascular Event Low <1.00 Average 1.00 - 3.00 High >3.00 Performed at: [facility] [id number] Chief School Finance Officer: Spencer Carbajal PhD, Phone: [phone] Performed By: #### L 100.0100, L503.6550, M200.1000, L3890.6006, M100.2200, L500.4050, L400.0001, L503.6030, L501.9520, L503.0106, L3400.8000, L3100.1725, L3100.7870, L101.9900 ####[facility] [address] [place], [address] Urine Cultureon 10-12-2024 [facility] Enterococcus faecalis [place] Count >100,000 Enterococcus faecalis: REACTION Ampicillin Islt MARTHA <=2 Ciprofloxacin Islt MARTHA <=0.5 S Gentamicin Synergy Susc Islt SYN-S S levoFLOXacin Islt MARTHA 0.5 S Linezolid Islt MARTHA 2 S Nitrofurantoin Islt MARTHA <=16 S Streptomycin High Pot Susc Islt SYN-S S Tetracycline Islt MARTHA >=16 R Vancomycin Islt MARTHA 1 S Normal [facility] Comment on above: Performed By: #### L 100.0100, L503.6550, M200.1000, L3890.6006, M100.2200, L500.4050, L400.0001, L503.6030, L501.9520, L503.0106, L3400.8000, L3100.1725, L3100.7870, L101.9900 ####[facility] [address] [place], [address] Stool Occult Blood iFOBon STOB Positive Normal [facility] Comment on above: Performed By: #### M 100.7900 ####[facility] [address] [place], [address] Stool gastrointestinal hemog lobin detection by immunologic methodOrdered By: Phu Espinoza on 10-11-2024 Lower GI hemoglobin IA Ql (Stl) Positive Abnormal [facility] Absolute lymphocyte countOrd ered By: Phu Espinoza on 10-10-2024 Lymphocytes Auto (Unsp spec) [#/Vol] 2.92 10*3/uL 0.83-4.51 [facility] Absolute neutrophil countOrd ered By: Phu Espinoza on 10-10-2024 Neutrophils (Bld) [#/Vol] 5.7 10*3/uL 2.0-7.7 [facility] Anion gap in Serum or Plasma Ordered By: Phu Espinoza on 10-10-2024 Anion gap [Moles/Vol] 17 mmol/L High 5-15 [facility] Automated lymphocyte count a s percentage of total leukocytesOrdered By: Phu Espinoza on 10-10-2024 Lymphocytes/100 WBC Auto (Unsp spec) 30.4 % 19-41 [facility] BUN/creatinine ratioOrdered By: Phu Espinoza on 10-10-2024 Urea nitrogen/Creatinine [Mass ratio] 20.1 mg/mg High 10-20 [facility] Basophil percentageOrdered B y: Phu Espinoza on 10-10-2024 Basophils/100 WBC (Bld) 0.7 % 0-1 [facility] Bilirubin Test strip Ql (U)O rdered By: Phu Espinoza on 10-10-2024 Bilirubin Ql (U) 3 mg/dL High Negative [facility] Comment on above: COLOR OF URINE MAY A FFECT DIPSTICK RESULTS. Bilirubin, totalOrdered By: Phu Espinoza on 10-10-2024 Bilirubin [Mass/Vol] 0.32 mg/dL 0.00-1.30 [facility] Blood cultureOrdered By: Phu Espinoza on 10-10-2024 Bacteria identified Cx Nom (Bld) No growth in 5 days. [facility] C-reactive protein measureme nt by high sensitivity methodOrdered By: Phu Espinoza on 10-10-2024 C-reactive protein measurement by high sensitivity method 0.43 mg/L 0.00-3.00 [facility] Comment on above: Relative Risk for Fu ture Cardiovascular Event Low <1.00 Average 1.00 - 3.00 High >3.00Performed at: [facility] [place], [place] [id number] Director: Spencer Carbajal PhD, Phone: [phone] CBC W/Diff, Automatedon 09-24 Absolute Lymph 2.92 X10 3/uL Normal 0.83-4.51 [facility] Comment on above: Performed By: #### L 100.0100, L503.6550, M200.1000, L3890.6006, M100.2200, L500.4050, L400.0001, L503.6030, L501.9520, L503.0106, L3400.8000, L3100.1725, L3100.7870, L101.9900 #### [facility] [address] [place], [place], [phone] (130) Absolute Neut 5.7 X10 3/uL Normal 2.0-7.7 [facility] Comment on above: Performed By: #### L 100.0100, L503.6550, M200.1000, L3890.6006, M100.2200, L500.4050, L400.0001, L503.6030, L501.9520, L503.0106, L3400.8000, L3100.1725, L3100.7870, L101.9900 #### [facility] [address] [place], [place], [phone] (115) Basophils/100 WBC (Bld) 0.7 % Normal 0-1 [facility] Comment on above: Performed By: #### L 100.0100, L503.6550, M200.1000, L3890.6006, M100.2200, L500.4050, L400.0001, L503.6030, L501.9520, L503.0106, L3400.8000, L3100.1725, L3100.7870, L101.9900 #### [facility] [address] [place], [place], [phone] ([phone] Eosinophils/100 WBC (Bld) 1.5 % Normal 0-5 [facility] Comment on above: Performed By: #### L 100.0100, L503.6550, M200.1000, L3890.6006, M100.2200, L500.4050, L400.0001, L503.6030, L501.9520, L503.0106, L3400.8000, L3100.1725, L3100.7870, L101.9900 #### [facility] [address] [place], [place], [phone] (332) Erythrocyte distribution width (RBC) [Ratio] 15.6 % High 11.6-14.6 [facility] Comment on above: Performed By: #### L 100.0100, L503.6550, M200.1000, L3890.6006, M100.2200, L500.4050, L400.0001, L503.6030, L501.9520, L503.0106, L3400.8000, L3100.1725, L3100.7870, L101.9900 #### [facility] [address] [place], [address] (418) Hematocrit (Bld) [Volume fraction] 35.9 % Low 37-47 [facility] Comment on above: Performed By: #### L 100.0100, L503.6550, M200.1000, L3890.6006, M100.2200, L500.4050, L400.0001, L503.6030, L501.9520, L503.0106, L3400.8000, L3100.1725, L3100.7870, L101.9900 #### [facility] [address] [place], [address] (396) Hemoglobin (Bld) [Mass/Vol] 11.4 g/dL Low 12.0-15.0 [facility] Comment on above: Performed By: #### L 100.0100, L503.6550, M200.1000, L3890.6006, M100.2200, L500.4050, L400.0001, L503.6030, L501.9520, L503.0106, L3400.8000, L3100.1725, L3100.7870, L101.9900 #### [facility] [address] [place], [address] IG% 0.300 Normal 0.0-0.9 [facility] Comment on above: Result Comment: IG% - Immature Granulocytes (promyelocytes, myelocytes and metamyelocytes) > 1% indicates that a LEFT SHIFT is Present. Performed By: #### L 100.0100, L503.6550, M200.1000, L3890.6006, M100.2200, L500.4050, L400.0001, L503.6030, L501.9520, L503.0106, L3400.8000, L3100.1725, L3100.7870, L101.9900 #### [facility] [address] [place], [address] Lymphocytes/100 WBC (Bld) 30.4 % Normal 19-41 [facility] Comment on above: Performed By: #### L 100.0100, L503.6550, M200.1000, L3890.6006, M100.2200, L500.4050, L400.0001, L503.6030, L501.9520, L503.0106, L3400.8000, L3100.1725, L3100.7870, L101.9900 #### [facility] [address] [place], [address] MCH (RBC) [Entitic mass] 24.1 pg Low 27.0-32.0 [facility] Comment on above: Performed By: #### L 100.0100, L503.6550, M200.1000, L3890.6006, M100.2200, L500.4050, L400.0001, L503.6030, L501.9520, L503.0106, L3400.8000, L3100.1725, L3100.7870, L101.9900 #### [facility] [address] [place], [address] MCHC (RBC) [Mass/Vol] 31.8 g/dL Low 32-36 [facility] Comment on above: Performed By: #### L 100.0100, L503.6550, M200.1000, L3890.6006, M100.2200, L500.4050, L400.0001, L503.6030, L501.9520, L503.0106, L3400.8000, L3100.1725, L3100.7870, L101.9900 #### [facility] [address] [place], [address] MCV (RBC) [Entitic vol] 75.9 fL Low 81-99 [facility] Comment on above: Performed By: #### L 100.0100, L503.6550, M200.1000, L3890.6006, M100.2200, L500.4050, L400.0001, L503.6030, L501.9520, L503.0106, L3400.8000, L3100.1725, L3100.7870, L101.9900 #### [facility] [address] [facility] [place], [address] Monocytes/100 WBC (Bld) 7.9 % Normal 0-10 [facility] Comment on above: Performed By: #### L 100.0100, L503.6550, M200.1000, L3890.6006, M100.2200, L500.4050, L400.0001, L503.6030, L501.9520, L503.0106, L3400.8000, L3100.1725, L3100.7870, L101.9900 #### [facility] [address] [place], [address] Neutrophils/100 WBC (Bld) 59.2 % Normal 47-70 [facility] Comment on above: Performed By: #### L 100.0100, L503.6550, M200.1000, L3890.6006, M100.2200, L500.4050, L400.0001, L503.6030, L501.9520, L503.0106, L3400.8000, L3100.1725, L3100.7870, L101.9900 #### [facility] [address] [place], [address] Nucleated RBC (Bld) [#/Vol] 0 10*3/uL Normal 0-5 [facility] Comment on above: Performed By: #### L 100.0100, L503.6550, M200.1000, L3890.6006, M100.2200, L500.4050, L400.0001, L503.6030, L501.9520, L503.0106, L3400.8000, L3100.1725, L3100.7870, L101.9900 #### [facility] [address] [place], [address] Platelet mean volume (Bld) [Entitic vol] 10.4 fL Normal 6.2-12.0 [facility] Comment on above: Performed By: #### L 100.0100, L503.6550, M200.1000, L3890.6006, M100.2200, L500.4050, L400.0001, L503.6030, L501.9520, L503.0106, L3400.8000, L3100.1725, L3100.7870, L101.9900 #### [facility] [address] [place], [address] Platelets (Bld) [#/Vol] 277 10*3/uL Normal 150-450 [facility] Comment on above: Performed By: #### L 100.0100, L503.6550, M200.1000, L3890.6006, M100.2200, L500.4050, L400.0001, L503.6030, L501.9520, L503.0106, L3400.8000, L3100.1725, L3100.7870, L101.9900 #### [facility] [address] [place], [place], [phone] (227) RBC (Bld) [#/Vol] 4.73 10*6/uL Normal 4.2-5.4 [facility] Comment on above: Performed By: #### L 100.0100, L503.6550, M200.1000, L3890.6006, M100.2200, L500.4050, L400.0001, L503.6030, L501.9520, L503.0106, L3400.8000, L3100.1725, L3100.7870, L101.9900 #### [facility] [address] [place], [address] (234) RDW SD 42.1 fl Normal 35.1-43.9 [facility] Comment on above: Performed By: #### L 100.0100, L503.6550, M200.1000, L3890.6006, M100.2200, L500.4050, L400.0001, L503.6030, L501.9520, L503.0106, L3400.8000, L3100.1725, L3100.7870, L101.9900 #### [facility] [address] [place], [address] (035) WBC (Bld) [#/Vol] 9.6 10*3/uL Normal 4.4-11.[address] [facility] Comment on above: Performed By: #### L 100.0100, L503.6550, M200.1000, L3890.6006, M100.2200, L500.4050, L400.0001, L503.6030, L501.9520, L503.0106, L3400.8000, L3100.1725, L3100.7870, L101.9900 #### [facility] [address] [place], [place], [phone] Carbon dioxide, total [Moles /volume] in Central venous bloodOrdered By: Phu Espinoza on 10-10-2024 CO2 [Moles/Vol] 19.0 mmol/L Low 21.0-32.0 [facility] Chloride assayOrdered By: Sloan Espinoza on 10-10-2024 Chloride [Moles/Vol] 103 mmol/L 98-108 [facility] Comprehensive Metabolic Prof ilon 10-10-2024 Albumin [Mass/Vol] 4.5 g/dL Normal 3.5-5.[address] [facility] Comment on above: Performed By: #### L 100.0100, L503.6550, M200.1000, L3890.6006, M100.2200, L500.4050, L400.0001, L503.6030, L501.9520, L503.0106, L3400.8000, L3100.1725, L3100.7870, L101.9900 #### [facility] [address] [place], [place], [id number] Albumin/Globulin [Mass ratio] 1.4 {ratio} Normal 0.9-2.4 [facility] Comment on above: Performed By: #### L 100.0100, L503.6550, M200.1000, L3890.6006, M100.2200, L500.4050, L400.0001, L503.6030, L501.9520, L503.0106, L3400.8000, L3100.1725, L3100.7870, L101.9900 #### [facility] [address] [place], [address] ALK PHOS 53 U/L Normal 35-104 [facility] Comment on above: Performed By: #### L 100.0100, L503.6550, M200.1000, L3890.6006, M100.2200, L500.4050, L400.0001, L503.6030, L501.9520, L503.0106, L3400.8000, L3100.1725, L3100.7870, L101.9900 #### [facility] [address] [place], [address] ALT [Catalytic activity/Vol] 52 U/L High <=34 [facility] Comment on above: Performed By: #### L 100.0100, L503.6550, M200.1000, L3890.6006, M100.2200, L500.4050, L400.0001, L503.6030, L501.9520, L503.0106, L3400.8000, L3100.1725, L3100.7870, L101.9900 #### [facility] [address] [place], [address] AST [Catalytic activity/Vol] 43 U/L High <=31 [facility] Comment on above: Performed By: #### L 100.0100, L503.6550, M200.1000, L3890.6006, M100.2200, L500.4050, L400.0001, L503.6030, L501.9520, L503.0106, L3400.8000, L3100.1725, L3100.7870, L101.9900 #### [facility] [address] [place], [place], [phone] (722) Bilirubin [Mass/Vol] 0.32 mg/dL Normal 0.00-1.30 [facility] Comment on above: Performed By: #### L 100.0100, L503.6550, M200.1000, L3890.6006, M100.2200, L500.4050, L400.0001, L503.6030, L501.9520, L503.0106, L3400.8000, L3100.1725, L3100.7870, L101.9900 #### [facility] [address] [place], [address] BUN/CRE 20.1 RATIO High 10-20 [facility] Comment on above: Performed By: #### L 100.0100, L503.6550, M200.1000, L3890.6006, M100.2200, L500.4050, L400.0001, L503.6030, L501.9520, L503.0106, L3400.8000, L3100.1725, L3100.7870, L101.9900 #### [facility] [address] [place], [address] Calcium [Mass/Vol] 9.9 mg/dL Normal 7.6-11.[address] [facility] Comment on above: Performed By: #### L 100.0100, L503.6550, M200.1000, L3890.6006, M100.2200, L500.4050, L400.0001, L503.6030, L501.9520, L503.0106, L3400.8000, L3100.1725, L3100.7870, L101.9900 #### [facility] [address] [place], [address] Chloride [Moles/Vol] 103 mmol/L Normal 98-108 [facility] Comment on above: Performed By: #### L 100.0100, L503.6550, M200.1000, L3890.6006, M100.2200, L500.4050, L400.0001, L503.6030, L501.9520, L503.0106, L3400.8000, L3100.1725, L3100.7870, L101.9900 #### [facility] [address] [place], [address] CO2 [Moles/Vol] 19.0 mmol/L Low 21.0-32.0 [facility] Comment on above: Performed By: #### L 100.0100, L503.6550, M200.1000, L3890.6006, M100.2200, L500.4050, L400.0001, L503.6030, L501.9520, L503.0106, L3400.8000, L3100.1725, L3100.7870, L101.9900 #### [facility] [address] [place], [place], [id number] Creatinine [Mass/Vol] 1.25 mg/dL High 0.70-1.20 [facility] Comment on above: Performed By: #### L 100.0100, L503.6550, M200.1000, L3890.6006, M100.2200, L500.4050, L400.0001, L503.6030, L501.9520, L503.0106, L3400.8000, L3100.1725, L3100.7870, L101.9900 #### [facility] [address] [place], [place], [phone] GAP 17 High 5-15 [facility] Comment on above: Performed By: #### L 100.0100, L503.6550, M200.1000, L3890.6006, M100.2200, L500.4050, L400.0001, L503.6030, L501.9520, L503.0106, L3400.8000, L3100.1725, L3100.7870, L101.9900 #### [facility] [address] [place], [place], [phone] GFR/1.73 sq M.predicted among non-blacks MDRD (S/P/Bld) [Vol rate/Area] 51 mL/min/{1.73_m2} Low >60 [facility] Comment on above: Result Comment: mL/m in/1.73m2 CKD-EPI Creatinine Equation (2020) Performed By: #### L 100.0100, L503.6550, M200.1000, L3890.6006, M100.2200, L500.4050, L400.0001, L503.6030, L501.9520, L503.0106, L3400.8000, L3100.1725, L3100.7870, L101.9900 #### [facility] [address] [place], [address] Globulin (S) [Mass/Vol] 3.3 g/dL Normal 2.2-4.2 [facility] Comment on above: Performed By: #### L 100.0100, L503.6550, M200.1000, L3890.6006, M100.2200, L500.4050, L400.0001, L503.6030, L501.9520, L503.0106, L3400.8000, L3100.1725, L3100.7870, L101.9900 #### [facility] [address] [place], [address] Glucose [Mass/Vol] 99 mg/dL Normal 70-[address] [facility] Comment on above: Performed By: #### L 100.0100, L503.6550, M200.1000, L3890.6006, M100.2200, L500.4050, L400.0001, L503.6030, L501.9520, L503.0106, L3400.8000, L3100.1725, L3100.7870, L101.9900 #### [facility] [address] [place], [address] Potassium [Moles/Vol] 4.3 mmol/L Normal 3.3-5.1 [facility] Comment on above: Performed By: #### L 100.0100, L503.6550, M200.1000, L3890.6006, M100.2200, L500.4050, L400.0001, L503.6030, L501.9520, L503.0106, L3400.8000, L3100.1725, L3100.7870, L101.9900 #### [facility] [address] [place], [address] Sodium [Moles/Vol] 139 mmol/L Normal 133-[address] [facility] Comment on above: Performed By: #### L 100.0100, L503.6550, M200.1000, L3890.6006, M100.2200, L500.4050, L400.0001, L503.6030, L501.9520, L503.0106, L3400.8000, L3100.1725, L3100.7870, L101.9900 #### [facility] [address] [place], [place], [id number] T PROT 7.7 g/dL Normal 5.9-8.4 [facility] Comment on above: Performed By: #### L 100.0100, L503.6550, M200.1000, L3890.6006, M100.2200, L500.4050, L400.0001, L503.6030, L501.9520, L503.0106, L3400.8000, L3100.1725, L3100.7870, L101.9900 #### [facility] [address] [place], [place], [phone] Urea nitrogen [Mass/Vol] 25 mg/dL High 4-19 [facility] Comment on above: Performed By: #### L 100.0100, L503.6550, M200.1000, L3890.6006, M100.2200, L500.4050, L400.0001, L503.6030, L501.9520, L503.0106, L3400.8000, L3100.1725, L3100.7870, L101.9900 #### [facility] [address] [facility] [place], [address] Eosinophil percentageOrdered By: Phu Espinoza on 10-10-2024 Eosinophils/100 WBC (Bld) 1.5 % 0-5 [facility] Erythrocyte Sed Rateon 10-10 SED RATE 28 mm/hr Normal 0-30 [facility] Comment on above: Performed By: #### L 100.0100, L503.6550, M200.1000, L3890.6006, M100.2200, L500.4050, L400.0001, L503.6030, L501.9520, L503.0106, L3400.8000, L3100.1725, L3100.7870, L101.9900 ####[facility] [address] [place], [place], [id number] Erythrocyte distribution wid th ratioOrdered By: Phu Alexis on 10-10-2024 Erythrocyte distribution width (RBC) [Ratio] 15.6 % High 11.6-14.6 [facility] Erythrocyte distribution wid th standard deviationOrdered By: [facility] on 10-10-2024 Erythrocyte distribution width (RBC) [Ratio] 42.1 fl 35.1-43.9 [facility] Erythrocyte folate measureme nt with hematocritOrdered By: Phu Alexis on 10-10-2024 Hematocrit (Bld) [Volume fraction] 38.6 % 34.0-46.6 [facility] Erythrocyte sedimentation ra teOrdered By: Phu Espinoza on 10-10-2024 ESR (Bld) [Velocity] 28 mm/h 0-30 [facility] Ferritinon 10-10-2024 Ferritin [Mass/Vol] 23 ng/mL Normal 22-378 [facility] Comment on above: Performed By: #### L 100.0100, L503.6550, M200.1000, L3890.6006, M100.2200, L500.4050, L400.0001, L503.6030, L501.9520, L503.0106, L3400.8000, L3100.1725, L3100.7870, L101.9900 ####[facility] [address] [place], [place], [id number] Glomerular filtration rate ( GFR) estimation/1.73 sq m using serum, plasma, or whole bOrdered By: Phu Espinoza on 10-10-2024 GFR/1.73 sq M.predicted among non-blacks MDRD (S/P/Bld) [Vol rate/Area] 51 mL/min/{1.73_m2} Low >60 [facility] Comment on above: mL/min/1.73m2 CKD-EP I Creatinine Equation (2020) HIVon 10-10-2024 HIV Non-Reactive Normal Nonreactive [facility] Comment on above: Result Comment: Non- Reactive Reactive Repeatedly reactive samples must be confirmed according to CDC recommended confirmatory algorithms. The subresults for either HIVAG or AHIV can be used as an aid in the selection of the confirmation algorithm for reactive samples. Send out specimens with Reactive results to [facility] for confirmation. Order the HIV antibody detection and differentiation: lc#[id number] Performed By: #### L 100.0100, L503.6550, M200.1000, L3890.6006, M100.2200, L500.4050, L400.0001, L503.6030, L501.9520, L503.0106, L3400.8000, L3100.1725, L3100.7870, L101.9900 ####[facility] [address] [place], [address] Hematocrit Auto (Bld) [Volum e fraction]Ordered By: Phu Espinoza on 10-10-2024 Hematocrit (Bld) [Volume fraction] 35.9 % Low 37-47 [facility] Hemoglobin measurementOrdere d By: Phu Alexis on 10-10-2024 Hemoglobin (Bld) [Mass/Vol] 11.4 g/dL Low 12.0-15.0 [facility] Hyaline casts LM.LPF (Urine sed) [#/Area]Ordered By: Phu Espinoza on 10-10-2024 Hyaline casts (Urine sed) [#/Area] 5 /[LPF] 0-5 [facility] Immature granulocytes/100 WB C Auto (Bld)Ordered By: Phu Alexis on 10-10-2024 Immature granulocytes/100 WBC (Bld) 0.300 % 0.0-0.9 [facility] Comment on above: IG% - Immature Granu locytes (promyelocytes, myelocytes and metamyelocytes) > 1% indicates that a LEFT SHIFT is Present. Iron measurement (mass/mass) Ordered By: Phu Espinoza on 10-10-2024 Iron (Unsp spec) [Mass/Mass] 29 ug/dL Low 50-170 [facility] Iron+Iron Binding Capacityon 10-10-2024 TIBC 462 ug/dL High 250-450 [facility] Comment on above: Performed By: #### L 100.0100, L503.6550, M200.1000, L3890.6006, M100.2200, L500.4050, L400.0001, L503.6030, L501.9520, L503.0106, L3400.8000, L3100.1725, L3100.7870, L101.9900 ####[facility] [address] [place], [address] Ketones Test strip Ql (U)Ord ered By: Phu Espinoza on 10-10-2024 Ketones Ql (U) 5 mg/dl High Negative [facility] - Chemistry and C hemistry - challengeOrdered By: Phu Espinoza on 10-10-2024 AST [Catalytic activity/Vol] 43 U/L High <32 [facility] MCV (mean corpuscular volume ) determinationOrdered By: Phu Espinoza on 10-10-2024 MCV (RBC) [Entitic vol] 75.9 fL Low 81-99 [facility] Mean corpuscular hemoglobin (MCH) determinationOrdered By: Phu Espinoza 10-10-2024 MCH (RBC) [Entitic mass] 24.1 pg Low 27.0-32.0 [facility] Mean corpuscular hemoglobin concentration (MCHC) determinationOrdered By: Phu Espinoza 10-10-2024 MCHC (RBC) [Mass/Vol] 31.8 g/dL Low 32-36 [facility] Mean platelet volume determi nationOrdered By: Phu Espinoza 10-10-2024 Platelet mean volume (Bld) [Entitic vol] 10.4 fL 6.2-12.0 [facility] Microscopic analysis of urin e for red blood cells (RBC)Ordered By: Phu Espinoza on 10-10-2024 Microscopic analysis of urine for red blood cells (RBC) 0-5 SEEN /hpf 0-5 [facility] Monocyte percentageOrdered B y: Phu Espinoza on 10-10-2024 Monocytes/100 WBC (Bld) 7.9 % 0-10 [facility] Mucus LM Ql (Urine sed)Order ed By: Phu Espinoza on 10-10-2024 Mucus Ql (Urine sed) 0 SEEN /hpf [facility] Neutrophil percentageOrdered By: Phu Espinoza on 10-10-2024 Neutrophils/100 WBC (Bld) 59.2 % 47-70 [facility] Nitrite Test strip Ql (U)Ord ered By: Phu Espinoza on 10-10-2024 Nitrite Ql (U) Negative Negative [facility] No Panel InformationOrdered By: Phu Espinoza on 10-10-2024 HIV (1&2) Antibody Non-Reactive Nonreactive [facility] Comment on above: Non-ReactiveReactive Repeatedly reactive samples must be confirmed according to CDC recommended confirmatory algorithms. The subresults for either HIVAG or AHIV can be used as an aid in the selection of the confirmation algorithm for reactive samples.Send out specimens with Reactive results to [facility] for confirmation.Order the HIV antibody detection and differentiation: #[id number] Unsaturated Iron Binding Capacity 433 ug/dL High 228-428 [facility] Nucleated red blood cell per centageOrdered By: Phu Espinoza on 10-10-2024 Nucleated RBC/100 WBC (Bld) [Ratio] 0 % 0-5 [facility] Platelet countOrdered By: Sloan Espinoza on 10-10-2024 Platelets (Bld) [#/Vol] 277 10*3/uL 150-450 [facility] Potassium measurement (mass/ volume)Ordered By: Phu Espinoza 10-10-2024 Potassium (Unsp spec) [Mass/Vol] 4.3 mmol/L 3.3-5.1 [facility] Protein Test strip Ql (U)Ord ered By: Phu Espinoza on 10-10-2024 Protein Ql (U) 30 mg/dl High Negative [facility] Qualitative QuantiFERON-TB g old in tube testOrdered By: Phu Espinoza on 10-10-2024 M. tuberculosis tuberculin stim IFN-g Ql (Bld) 0.05 IU/mL . [facility] RBC Auto (Bld) [#/Vol]Ordere d By: Phu Espinoza on 10-10-2024 RBC (Bld) [#/Vol] 4.73 10*6/uL 4.2-5.4 [facility] Serum creatinine measurement (mass/volume)Ordered By: Phu Espinoza on 10-10-2024 Creatinine [Mass/Vol] 1.25 mg/dL High 0.70-1.20 [facility] Serum globulin measurementOr dered By: Phu Espinoza on 10-10-2024 Globulin (S) [Mass/Vol] 3.3 g/dL 2.2-4.2 [facility] Serum glucose measurement (m ass/volume)Ordered By: Phu Espinoza on 10-10-2024 Glucose [Mass/Vol] 99 mg/dL 70-[address] [facility] Serum or plasma alanine tobar otransferase (ALT) measurementOrdered By: Phu Espinoza on 10-10-2024 ALT [Catalytic activity/Vol] 52 U/L High <35 [facility] Serum or plasma albumin thiago urement (mass/volume)Ordered By: Phu Espinoza on 10-10-2024 Albumin [Mass/Vol] 4.5 g/dL 3.5-5.[address] [facility] Serum or plasma albumin/glob ulin mass ratioOrdered By: Phu Espinoza on 10-10-2024 Albumin/Globulin [Mass ratio] 1.4 {ratio} 0.9-2.4 [facility] Serum or plasma alkaline meg sphatase measurementOrdered By: Phu Espinoza 10-10-2024 ALP [Catalytic activity/Vol] 53 U/L 35-104 [facility] Serum or plasma calcium thiago urement (mass/volume)Ordered By: Phu Espinoza 10-10-2024 Calcium [Mass/Vol] 9.9 mg/dL 7.6-11.[address] [facility] Serum or plasma ferritin lizette surement (mass/volume)Ordered By: Phu Espinoza on 10-10-2024 Ferritin [Mass/Vol] 23 ng/mL 22-378 [facility] Serum or plasma iron saturat ion measurement (mass fraction)Ordered By: Phu Espinoza on 10-10-2024 Iron saturation [Mass fraction] 6.0 % Low 13-59 [facility] Comment on above: Previous reported re sult: 6.0 %Edited by: KIERA on 10/10/24:1929 Serum or plasma urea nitroge n measurement (mass/volume)Ordered By: Phu Espinoza on 10-10-2024 Urea nitrogen [Mass/Vol] 25 mg/dL High 4-19 [facility] Sodium levelOrdered By: Phu Espinoza on 10-10-2024 Sodium [Moles/Vol] 139 mmol/L 133-[address] [facility] Squamous epithelial cells de tection in urine sediment by light microscopyOrdered By: Phu Espinoza on 10-10-2024 Epithelial cells.squamous LM Ql (Urine sed) 10-25 SEEN /hpf 5-10 [facility] TSH DL <= 0.005 mIU/L QnOrde red By: Phu Espinoza on 10-10-2024 TSH Qn 0.167 uIU/mL Low 0.300-4.200 [facility] Thyroid Stim Hormone (TSH)on 10-10-2024 TSH 0.167 uIU/mL Low 0.300-4.200 [facility] Comment on above: Performed By: #### L 100.0100, L503.6550, M200.1000, L3890.6006, M100.2200, L500.4050, L400.0001, L503.6030, L501.9520, L503.0106, L3400.8000, L3100.1725, L3100.7870, L101.9900 ####[facility] [address] [place], [place], [id number] Total proteinOrdered By: Phu Espinoza on 10-10-2024 Protein [Mass/Vol] 7.7 g/dL 5.9-8.[address] [facility] Urinalysis, Completeon 10-10 CAST,HYALINE 5-10 SEEN Normal 0-5 [facility] Comment on above: Order Comment: Urine , Random Performed By: #### L 100.0100, L503.6550, M200.1000, L3890.6006, M100.2200, L500.4050, L400.0001, L503.6030, L501.9520, L503.0106, L3400.8000, L3100.1725, L3100.7870, L101.9900 ####[facility] [address] [place], [place], [phone] BACTERIA RARE Normal None Seen [facility] Comment on above: Order Comment: Urine , Random Performed By: #### L 100.0100, L503.6550, M200.1000, L3890.6006, M100.2200, L500.4050, L400.0001, L503.6030, L501.9520, L503.0106, L3400.8000, L3100.1725, L3100.7870, L101.9900 ####[facility] [address] [place], [place], [phone] EPI,SQUAMOUS 10-25 SEEN Normal 5-10 [facility] Comment on above: Order Comment: Urine , Random Performed By: #### L 100.0100, L503.6550, M200.1000, L3890.6006, M100.2200, L500.4050, L400.0001, L503.6030, L501.9520, L503.0106, L3400.8000, L3100.1725, L3100.7870, L101.9900 ####[facility] [address] [place], [place], [phone] RBC 0-5 SEEN Normal 0-5 [facility] Comment on above: Order Comment: Urine , Random Performed By: #### L 100.0100, L503.6550, M200.1000, L3890.6006, M100.2200, L500.4050, L400.0001, L503.6030, L501.9520, L503.0106, L3400.8000, L3100.1725, L3100.7870, L101.9900 ####[facility] [address] [place], [place], [phone] WBC 5-10 SEEN Normal 0-5 [facility] Comment on above: Order Comment: Urine , Random Performed By: #### L 100.0100, L503.6550, M200.1000, L3890.6006, M100.2200, L500.4050, L400.0001, L503.6030, L501.9520, L503.0106, L3400.8000, L3100.1725, L3100.7870, L101.9900 ####[facility] [address] [place], [address] Mucus Ql (Urine sed) 0 SEEN Normal [facility] Comment on above: Order Comment: Urine , Random Performed By: #### L 100.0100, L503.6550, M200.1000, L3890.6006, M100.2200, L500.4050, L400.0001, L503.6030, L501.9520, L503.0106, L3400.8000, L3100.1725, L3100.7870, L101.9900 ####[facility] [address] [place], [place], [phone] Urine clarityOrdered By: Phu Espinoza on 10-10-2024 Clarity (U) Sl. Cloudy Clear [facility] Urine color determinationOrd ered By: Phu Espinoza on 10-10-2024 Color (U) Yellow Yellow [facility] Urine cultureOrdered By: Phu Espinoza on 10-10-2024 Bacteria identified Cx Nom (U) Enterococcus faecalis Abnormal [facility] Urine glucose detectionOrder ed By: Phu Espinoza on 10-10-2024 Glucose Ql (U) 1000 mg/dl High Normal [facility] Urine leukocyte esterase det ection by dipstickOrdered By: Phu Espinoza 10-10-2024 Leukocyte esterase Test strip Ql (U) 100 /ul High Negative [facility] Urine pHOrdered By: Phu Espinoza on 10-10-2024 pH (U) 6.0 [pH] 5.0 - 8.0 [facility] Urine sediment bacteria coun t by microscopy (number/high power field)Ordered By: Phu Espinoza on 10-10-2024 Bacteria LM.HPF (Urine sed) [#/Area] RARE /hpf None Seen [facility] Urine specific gravity measu rementOrdered By: Phu Espinoza on 10-10-2024 Specific gravity (U) [Rel density] 1.015 1.002-1.030 [facility] Urine urobilinogen measureme ntOrdered By: Phu Espinoza on 10-10-2024 Urobilinogen Ql (U) Normal mg/dl Normal [facility] Vitamin B12on 10-10-2024 Cobalamin (Vitamin B12) [Mass/Vol] 879 pg/mL Normal 180-914 [facility] Comment on above: Performed By: #### L 100.0100, L503.6550, M200.1000, L3890.6006, M100.2200, L500.4050, L400.0001, L503.6030, L501.9520, L503.0106, L3400.8000, L3100.1725, L3100.7870, L101.9900 ####[facility] [address] [facility] [place], [address] Vitamin B12 ser/plasOrdered By: Phu Espinoza on 10-10-2024 Cobalamin (Vitamin B12) [Mass/Vol] 879 pg/mL 180-914 [facility] White blood cell (WBC) count Ordered By: Phu Espinoza on 10-10-2024 WBC (Bld) [#/Vol] 9.6 10*3/uL 4.4-11.[address] [facility] White blood cell countOrdere d By: Phu Alexis on 10-10-2024 White blood cell count 5-10 SEEN /hpf 0-5 [facility] 12 Lead EKGon 10-07-2024 12 Lead EKG [facility] Cardiovascular Services [address] [place] [address] 12 Lead EKG 10/07/24 0445 MR#: [id number] Acct: [id number] Name: ARLEN NGUYEN Rep #: [id number] : 1970 54 From: Lois Das MD Attending Dr: Dr. Octavio Archuleta MD Status: DIS NATALIE Ordering Dr: Junior Dunn DO Date: 10/07/24 Location: [facility] Sex: F C Admitted: 10/05/24 Test Reason : AM EKG Blood Pressure : */* mmHG Vent. Rate : 85 BPM Atrial Rate : 85 BPM P-R Int : 170 ms QRS Dur : 88 ms QT Int : 390 ms P-R-T Axes : 51 44 24 degrees QTcB Int : 464 ms Sinus rhythm with frequent Premature ventricular complexes in a pattern of bigeminy Low voltage QRS Borderline ECG When compared with ECG of 06-Oct-2024 23:54, MANUAL COMPARISON REQUIRED DATA IS UNCONFIRMED Confirmed by MD JONATHAN, LOIS ([id number]), loan expeditor MAXIMO BARILLAS ([id number]) on 10/08/2024 10:56:09 AM Referred By: Confirmed By: LOIS DAS MD 10/08/24 1056 Date Lois Das MD CC: Dr. Junior Dunn DO; Dr. Octavio Archuleta MD; Dr. Phu Espinoza MD Signed Normal [facility] Absolute neutrophil countOrd ered By: Megan Gomez on 10-07-2024 Absolute neutrophil count Not Reportable [facility] Anion gap in Serum or Plasma Ordered By: Megan Jason on 10-07-2024 Anion gap [Moles/Vol] 12 mmol/L 5-15 [facility] BUN/creatinine ratioOrdered By: on 10-07-2024 Urea nitrogen/Creatinine [Mass ratio] 22.1 mg/mg High 10-20 [facility] Basophil percentageOrdered B y: Megan Jason on 10-07-2024 Basophils/100 WBC (Bld) 0.6 % 0-1 [facility] Bedside Glucoseon 10-07-2024 FINGERSTICK GLU 134 mg/dL High 74-106 [facility] Comment on above: Result Comment: YESSENIA GEMENT OF PATIENT CARE PER NURSING PROTOCOL Performed By: #### L 501.4021, L557.6540 #### [facility] [address] [place], [place], [id number] FINGERSTICK GLU 178 mg/dL High 74-106 [facility] Comment on above: Result Comment: YESSENIA GEMENT OF PATIENT CARE PER NURSING PROTOCOL Performed By: #### L 501.4021, L501.5200 #### [facility] [address] [place], [address] FINGERSTICK GLU 167 mg/dL High 74-106 [facility] Comment on above: Result Comment: YESSENIA SANCHEZ OF PATIENT CARE PER NURSING PROTOCOL Performed By: #### L 501.080 ####[facility] [address] [place], [address] Bilirubin, totalOrdered By: Megan Gomez on 10-07-2024 Bilirubin [Mass/Vol] 0.29 mg/dL 0.00-1.30 [facility] Blood platelets count (numbe r/volume)Ordered By: Megan Gomez on 10-07-2024 Platelets (Bld) [#/Vol] 242 10*3/uL 150-450 [facility] CBC W/Diff, Automatedon 09-24-2024 Basophils/100 WBC (Bld) 0.6 % Normal 0-1 [facility] Comment on above: Performed By: #### L 500.2500 #### [facility] [address] [place], [address] Eosinophils/100 WBC (Bld) 2.1 % Normal 0-5 [facility] Comment on above: Performed By: #### L 500.2500 #### [facility] [address] [place], [address] Erythrocyte distribution width (RBC) [Ratio] 15.3 % High 11.6-14.6 [facility] Comment on above: Performed By: #### L 500.2500 #### [facility] [address] [place], [address] Hematocrit (Bld) [Volume fraction] 33.6 % Low 37-47 [facility] Comment on above: Performed By: #### L 500.2500 #### [facility] [address] [place], [address] IG% 0.300 Normal 0.0-0.9 [facility] Comment on above: Result Comment: IG% - Immature Granulocytes (promyelocytes, myelocytes and metamyelocytes) > 1% indicates that a LEFT SHIFT is Present. Performed By: #### L 500.2500 #### [facility] [address] [place], [address] Lymphocytes/100 WBC (Bld) 37.9 % Normal 19-41 [facility] Comment on above: Performed By: #### L 500.2500 #### [facility] [address] [place], [address] MCH (RBC) [Entitic mass] 24.3 pg Low 27.0-32.0 [facility] Comment on above: Performed By: #### L 500.2500 #### [facility] [address] [place], [address] MCHC (RBC) [Mass/Vol] 31.3 g/dL Low 32-36 [facility] Comment on above: Performed By: #### L 500.2500 #### [facility] [address] [place], [address] MCV (RBC) [Entitic vol] 77.8 fL Low 81-99 [facility] Comment on above: Performed By: #### L 500.2500 #### [facility] [address] [place], [address] Monocytes/100 WBC (Bld) 10.8 % High 0-10 [facility] Comment on above: Performed By: #### L 500.2500 #### [facility] [address] [place], [address] Neutrophils/100 WBC (Bld) 48.3 % Normal 47-70 [facility] Comment on above: Performed By: #### L 500.2500 #### [facility] [address] [place], [address] Platelet mean volume (Bld) [Entitic vol] 10.6 fL Normal 6.2-12.0 [facility] Comment on above: Performed By: #### L 500.2500 #### [facility] [address] [place], [address] Platelets (Bld) [#/Vol] 242 10*3/uL Normal 150-450 [facility] Comment on above: Performed By: #### L 500.2500 #### [facility] [address] [place], [address] RDW SD 43.3 fl Normal 35.1-43.9 [facility] Comment on above: Performed By: #### L 500.2500 #### [facility] [address] [place], [address] Hemoglobin (Bld) [Mass/Vol] 10.5 g/dL Low 12.0-15.0 [facility] Comment on above: Performed By: #### L 500.2500 #### [facility] [address] [place], [address] RBC (Bld) [#/Vol] 4.32 10*6/uL Normal 4.2-5.4 [facility] Comment on above: Performed By: #### L 500.2500 #### [facility] [address] [place], [address] WBC (Bld) [#/Vol] 6.6 10*3/uL Normal 4.4-11.[address] [facility] Comment on above: Performed By: #### L 500.2500 #### [facility] [address] [place], [address] Calculated very low density lipoprotein (VLDL) cholesterol measurementOrdered By: Junior Dunn on 10-07-2024 Calculated very low density lipoprotein (VLDL) cholesterol measurement 39 mg/dL 5-40 [facility] Carbon dioxide, total [Moles /volume] in Central venous bloodOrdered By: Megan Gomez on 10-07-2024 CO2 [Moles/Vol] 23.7 mmol/L 21.0-32.0 [facility] Cardiovascular stress test r eportOrdered By: Josh Gibbs on 10-07-2024 Study report [facility] Cardiovascular Services [address] [place] [address] MR#: [id number] Acct: [id number] Name: ARLEN NGUYEN Rep #: [id number] : 1970 54 From: Josh Gibbs MD Primary Care: Dr. Phu Espinoza MD Status : ADM NATALIE Referring Dr: Sex: F C Stress Test Report Pharmacologic myocardial perfusion stress test. 54-year-old lady with a history of chest pain Resting EKG demonstrates sinus rhythm with a rate of 110 bpm. Resting blood pressure is 138/70 mmHg. 0.4 mg of regadenoson was infused per usual protocol followed by rapid intravenous saline flush injection. Continuous EKG monitoringwas performed. The maximum heart rate was 110 bpm which was 66% of max impactedheart rate the maximum workload was 1 metabolic equivalent. At rest there were no ST or T wave changes noted to suggest ischemia and at peak infusion nonspecific ST changes were noted which did not meet the criteria for ischemia. No clinical angina is noted. The final blood pressure was 146/80 mmHg. Myocardial perfusion protocol. 14.5 mCi of technetium 99m sestamibi was injected at rest. 0.4 mg of regadenoson was infused per usual protocol. At peak infusion 44.6 mCi of technetium 99m sestamibi was injected stress images were obtained stress and rest images were reconstructed and compared in the short axis vertical long and horizontal long axis. Gated images were also obtained. Perfusion SPECT analysis: Review of the stress images demonstrate normal uptake of tracer noted in all areas of the myocardium. The resting images similar demonstrated normal uptake of tracer noted in all areas of the myocardium. No areas of reversibility are noted to suggest ischemia and no previous infarct is noted. Gated SPECT analysis: The gated ejection fraction is 60%. Conclusion: Normal pharmacologic myocardial perfusion stress test. Preserved ejection fraction. 10/07/24 1421 Date _ Josh Gibbs MD CC: Dr. Junior Dunn DO; Dr. Megan Gomez MD; Dr. Octavio Archuleta MD; Dr. Anton Thacker DO; Dr. Phu Espinoza MD ~ Date Dictated: 10/07/241419 Date Transcribed: 10/07/241419 Dehydrogenation Converter Operator: CO Signed [facility] Work Phone: Chloride assayOrdered By: Kateryna Gomez on 10-07-2024 Chloride [Moles/Vol] 104 mmol/L 98-108 [facility] Comprehensive Metabolic Prof ilon 10-07-2024 Albumin [Mass/Vol] 4.1 g/dL Normal 3.5-5.[address] [facility] Comment on above: Performed By: #### L 501.4021, L501.5200 #### [facility] [address] [place], [address] Albumin/Globulin [Mass ratio] 1.4 {ratio} Normal 0.9-2.4 [facility] Comment on above: Performed By: #### L 501.4021, L501.5200 #### [facility] [address] [place], [address] ALK PHOS 46 U/L Normal 35-104 [facility] Comment on above: Performed By: #### L 501.4021, L501.5200 #### [facility] [address] [place], [address] ALT [Catalytic activity/Vol] 58 U/L High <=34 [facility] Comment on above: Performed By: #### L 501.4021, L501.5200 #### [facility] [address] [place], [address] AST [Catalytic activity/Vol] 56 U/L High <=31 [facility] Comment on above: Performed By: #### L 501.4021, L501.5200 #### [facility] [address] [place], [address] Bilirubin [Mass/Vol] 0.29 mg/dL Normal 0.00-1.30 [facility] Comment on above: Performed By: #### L 501.4021, L501.5200 #### [facility] [address] [place], [address] BUN/CRE 22.1 RATIO High 10-20 [facility] Comment on above: Performed By: #### L 501.4021, L501.5200 #### [facility] [address] [place], [address] Calcium [Mass/Vol] 9.9 mg/dL Normal 7.6-11.[address] [facility] Comment on above: Performed By: #### L 501.4021, L501.5200 #### [facility] [address] [place], [address] Chloride [Moles/Vol] 104 mmol/L Normal 98-108 [facility] Comment on above: Performed By: #### L 501.4021, L501.5200 #### [facility] [address] [place], [address] CO2 [Moles/Vol] 23.7 mmol/L Normal 21.0-32.0 [facility] Comment on above: Performed By: #### L 501.4021, L501.5200 #### [facility] [address] [place], [address] Creatinine [Mass/Vol] 1.08 mg/dL Normal 0.70-1.20 [facility] Comment on above: Performed By: #### L 501.4021, L501.5200 #### [facility] [address] [place], [address] ECRCL 83.97 ml/min Normal 50-250 [facility] Comment on above: Performed By: #### L 501.4021, L501.5200 #### [facility] [address] [place], [address] GAP 12 Normal 5-15 [facility] Comment on above: Performed By: #### L 501.4021, L501.5200 #### [facility] [address] [place], [address] GFR/1.73 sq M.predicted among non-blacks MDRD (S/P/Bld) [Vol rate/Area] 61 mL/min/{1.73_m2} Normal >60 [facility] Comment on above: Result Comment: mL/m in/1.73m2 CKD-EPI Creatinine Equation (2020) Performed By: #### L 501.4021, L501.5200 #### [facility] [address] [place], [address] Globulin (S) [Mass/Vol] 2.9 g/dL Normal 2.2-4.2 [facility] Comment on above: Performed By: #### L 501.4021, L501.5200 #### [facility] [address] [place], [address] Glucose [Mass/Vol] 150 mg/dL High 70-[address] [facility] Comment on above: Performed By: #### L 501.4021, L501.5200 #### [facility] [address] [place], [address] Potassium [Moles/Vol] 4.3 mmol/L Normal 3.3-5.1 [facility] Comment on above: Performed By: #### L 501.4021, L501.5200 #### [facility] [address] [place], [address] Sodium [Moles/Vol] 140 mmol/L Normal 133-[address] [facility] Comment on above: Performed By: #### L 501.4021, L501.5200 #### [facility] [address] [place], [address] T PROT 7.0 g/dL Normal 5.9-8.4 [facility] Comment on above: Performed By: #### L 501.4021, L501.5200 #### [facility] [address] [place], [address] Urea nitrogen [Mass/Vol] 24 mg/dL High 4-19 [facility] Comment on above: Performed By: #### L 501.4021, L501.5200 #### [facility] [address] [place], [address] Echocardiogram study reportO rdered By: Ronda Schaefer on 10-07-2024 Study report [facility] Cardi[facility] Services [address] [place] [address] Echo Complete W/ Contrast 10/07/24 1125 MR#: [id number] Acct: [id number] Name: ARLEN NGUYEN Rep #:[id number] : 1970 54 From: Ronda Schaefer MD Attending Dr: Dr. Octavio Archuleta MD Status: ADM NATALIE Ordering Dr: Junior Dunn DO Da te: 10/05/24 Location: PCU Sex: F C Admitted: 10/05/24 Reason For Study Reason For Study: Chest pain Procedure This was a 2D Doppler, Color Flow transthoracic echocardiogram. The study was technically difficult. Exam performed portable in patient room. Left Ventricle Normal size and thickness. The LV ejection fraction is 65 %. Stage 1 diastolic dysfunction. Right Ventricle Normal right ventricle. Atria The left and right atria are normal. Mitral Valve Trivial mitral valve insufficiency. Tricuspid Valve Trivial tricuspid valve insufficiency. Unable to estimate RV systolic pressure due to insufficient tricuspid regurgitant envelope. Aortic Valve Trisinus/trileaflet aortic valve. Pulmonic Valve The pulmonic valve is not well visualized. Great Vessels Normal sized aortic root. Pericardium/Pleural No pericardial effusion. Medication Diluted definity 1.5ml given slow IV push to enhance endocardial definition. MMode/2D Measurements & Calculations LVIDd: 5.4 cm IVSd: 1.1 cm Ao root diam: 3.2 cm LVIDs: 3.2 cm LVPWd: 1.0 cm RVDd: 3.2 cm FS: 40.1 % LAV(MOD-bp): 44.2 ml LVAd ap4: 40.6 cm2 LVAd ap2: 34.3 cm2 LAV(MOD-bp) Indexed: 18.7 ml/m2 LVLd ap4: 8.9 cm LVLd ap2: 8.1 cm LAV(MOD-sp2): 40.3 ml EDV(MOD-sp4): 150.4 ml EDV(MOD-sp2): 118.2 ml LAV(MOD-sp4): 43.9 ml EDV(sp4-el): 156.5 ml EDV(sp2-el): 124.3 ml LVAs ap4: 20.7 cm2 LVAs ap2: 19.2 cm2 LVLs ap4: 7.2 cm LVLs ap2: 6.8 cm ESV(MOD-sp4): 47.9 ml ESV(MOD-sp2): 43.3 ml ESV(sp4-el): 50.8 ml ESV(sp2-el): 46.1 ml EF(MOD-sp4): 68.2 % EF(MOD-sp2): 63.3 % EF(sp4-el): 67.6 % SV(MOD-sp4): 102.5 ml SV(MOD-sp2): 74.9 ml SV(sp4-el): 105.7 ml SI(MOD-sp4): 43.3 ml/m2 SI(MOD-sp2): 31.6 ml/m2 LA A4 area: 17.4 cm2 LA dimension(2D): 3.2 cm RA A4 area: 13.7 cm2 TAPSE: 2.4 cm Time Measurements MV dec time: 0.29 sec Doppler Measurements & Calculations MV E max jorgito: 48.9 cm/sec Lat Peak E' Jorgito: 10.0 cm/sec Med Peak E' Jorgiot: 8.1 cm/sec MV A max jorgito: 81.4 cm/sec E/E' lat: 4.9 E/E' med: 6.0 MV E/A: 0.60 MV dec slope: 171.6 cm/sec2 Ao V2 max: 155.5 cm/sec LV V1 max: 139.6 cm/sec Ao max P.9 mmHg LV V1 max P.8 mmHg PA V2 max: 75.1 cm/sec ECHO/Echo Complete W/ Contrast Interpretation Summary The LV ejection fraction is 65 %. Stage 1 diastolic dysfunction. Ordering Physician: Junior Dunn Referring Physician: Phu Espinoza Chi Performed By: Maine Akbar RDCS 10/07/24 1422 Date _ Ronda Schaefer MD CC: Dr. Junior Dunn DO; Dr. Octavio Archuleta MD; Dr. Phu Espinoza MD ~ Date Dictated: 10/07/24 1125 Date Transcribed: 10/07/24 1422 Dehydrogenation Converter Operator: Signed [facility] Work Phone: Electrocardiogram reportOrde red By: Josh Gibbs on 10-07-2024 EKG study [facility] Cardiovascular Services [address] [place] [address] 12 Lead EKG 10/05/24 1923 MR#: [id number] Acct: [id number] Name: ARLEN NGUYEN Rep #:[id number] : 1970 54 From: Josh Gibbs MD Attending Dr: Dr. Octavio Archuleta MD Status: ADM NATALIE Ordering Dr: Anton Thacker DO Date: 03/20 Location: [facility] Sex: F C Admitted: 10/05/24 Test Reason : CP Blood Pressure : */* mmHG Vent. Rate : 73 BPM Atrial Rate : 73 BPM P-R Int : 140 ms QRS Dur : 80 ms QT Int : 398 ms P-R-T Axes : 6 48 41 degrees QTcB Int : 438 ms Normal sinus rhythm Low voltage QRS Borderline ECG Confirmed by JOSH GIBBS MD ([id number]), loan expeditor MAXIMO BARILLAS ([id number]) on 10/07/2024 11:35:42 AM Referred By: RU Confirmed By: JOSH GIBBS MD 10/07/24 1135 Date _ Josh Gibbs MD CC: Dr. Octavio Archuleta MD; Dr. Anton Thacker DO; Dr. Phu Espinoza MD ~ Signed [facility] Work Phone: [phone] Eosinophil %Ordered By: Tommy Gomez on 10-07-2024 Eosinophils/100 WBC (Bld) 2.1 % 0-5 [facility] Erythrocyte distribution wid th ratioOrdered By: Megan Gomez on 10-07-2024 Erythrocyte distribution width (RBC) [Ratio] 15.3 % High 11.6-14.6 [facility] Glomerular filtration rate ( GFR) estimation/1.73 sq m using serum, plasma, or whole bOrdered By: Megan Gomez on 10-07-2024 GFR/1.73 sq M.predicted among non-blacks MDRD (S/P/Bld) [Vol rate/Area] 61 mL/min/{1.73_m2} >60 [facility] Comment on above: mL/min/1.73m2 CKD-EP I Creatinine Equation (2020) [facility] deOrdered By: Octavio Archuleta on 10-07-2024 Glucose [Mass/Vol] 134 mg/dL High 74-[address] [facility] Comment on above: MANAGEMENT OF PATIEN T CARE PER NURSING PROTOCOL Hematocrit Auto (Bld) [Volum e fraction]Ordered By: Megan Gomez on 10-07-2024 Hematocrit (Bld) [Volume fraction] 33.6 % Low 37-47 [facility] Hemoglobin measurementOrdere d By: Megan Gomez on 10-07-2024 Hemoglobin (Bld) [Mass/Vol] 10.5 g/dL Low 12.0-15.0 [facility] Immature granulocyte percent ageOrdered By: Megan Jason on 10-07-2024 Immature granulocytes/100 WBC (Bld) 0.300 % 0.0-0.9 [facility] Comment on above: IG% - Immature Granu locytes (promyelocytes, myelocytes and metamyelocytes) > 1% indicates that a LEFT SHIFT is Present. LDL calc ser/plasOrdered By: Junior Dunn on 10-07-2024 Cholesterol in LDL [Mass/Vol] 44 mg/dL [facility] Comment on above: Mooyyzehkt=224-244 m g/dL & Higher Ppib=133 mg/dL or greater Laboratory - Chemistry and C hemistry - challengeOrdered By: Megan Jason on 10-07-2024 AST [Catalytic activity/Vol] 56 U/L High <32 [facility] Lipid Profileon 10-07-2024 CHOL:HDL 3.77 Normal [facility] Comment on above: Performed By: #### L 501.4021, L501.5200 #### [facility] [address] [place], [address] ([phone] Cholesterol [Mass/Vol] 113 mg/dL Normal <=200 [facility] Comment on above: Result Comment: Chol esterol level, Desirable <200 mg/dL Borderline high cholesterol 200-239 mg/dL High cholesterol >=240 mg/dL Recommendations of the NCEP Adult Treatment Panel for the following risk-cutoff thresholds for the [place] population. Performed By: #### L 501.4021, L501.5200 #### [facility] [address], [place], [id number] ([phone]) Cholesterol in HDL [Mass/Vol] 30 mg/dL Low [facility] Comment on above: Result Comment: Skye onal Cholesterol Education Program (NCEP) guidelines: <40 mg/dL: Low HDL-cholesterol (major risk factor for CHD) >= 60 mg/dL: High HDL-cholesterol (negative risk factor for CHD) HDL-cholesterol is affected by a number of factors, e.g. smoking, exercise, hormones, sex and age. Performed By: #### L 501.4021, L501.5200 #### [facility] [address] [place], [address] Cholesterol in LDL [Mass/Vol] 44 mg/dL Normal [facility] Comment on above: Result Comment: Bord nteepy=862-157 mg/dL Higher Guxw=080 mg/dL or greater Performed By: #### L 501.4021, L501.5200 #### [facility] [address] [place], [address] Cholesterol in VLDL [Mass/Vol] 39 mg/dL Normal 5-40 [facility] Comment on above: Performed By: #### L 501.4021, L501.5200 #### [facility] [address] [place], [address] Triglyceride [Mass/Vol] 196 mg/dL Normal [facility] Comment on above: Result Comment: The drugs N-Acetylcysteine and Metamizole may falsely depress this assay. Normal range: <150 mg/dL Borderline High: 150-199 mg/dL High: 200-499 mg/dL Very High: >500 mg/dL Performed By: #### L 501.4021, L501.5200 #### [facility] [address] [place], [address] Lymphocyte %Ordered By: Tommy Gomez on 10-07-2024 Lymphocytes/100 WBC (Bld) 37.9 % 19-41 [facility] MCV (mean corpuscular volume ) determinationOrdered By: Megan Gomez on 10-07-2024 MCV (RBC) [Entitic vol] 77.8 fL Low 81-99 [facility] Magnesiumon 10-07-2024 Magnesium [Mass/Vol] 1.9 mg/dL Normal 1.5-2.2 [facility] Comment on above: Performed By: #### L 501.4021, L501.5200 #### [facility] [place], [address] Magnesium measurement (mass/ volume)Ordered By: Megan Gomez on 10-07-2024 Magnesium (Unsp spec) [Mass/Vol] 1.9 mg/dL 1.5-2.2 [facility] Mean corpuscular hemoglobin (MCH) determinationOrdered By: Megan Gomez on 10-07-2024 MCH (RBC) [Entitic mass] 24.3 pg Low 27.0-32.0 [facility] Mean corpuscular hemoglobin concentration (MCHC) determinationOrdered By: Megan Gomez on 10-07-2024 MCHC (RBC) [Mass/Vol] 31.3 g/dL Low 32-36 [facility] Mean platelet volume determi nationOrdered By: Megan Gomez on 10-07-2024 Platelet mean volume (Bld) [Entitic vol] 10.6 fL 6.2-12.0 [facility] Monocyte percentageOrdered B y: Megan Gomez on 10-07-2024 Monocytes/100 WBC (Bld) 10.8 % High 0-10 [facility] Neutrophil %Ordered By: Tommy mejia White on 10-07-2024 Neutrophils/100 WBC (Bld) 48.3 % 47-70 [facility] Potassium measurement (mass/ volume)Ordered By: Megan Gomez on 10-07-2024 Potassium (Unsp spec) [Mass/Vol] 4.3 mmol/L 3.3-5.1 [facility] RBC Auto (Bld) [#/Vol]Ordere d By: Megan Gomez on 10-07-2024 RBC (Bld) [#/Vol] 4.32 10*6/uL 4.2-5.4 [facility] RDWOrdered By: Megan Gomez on 10-07-2024 RDW 43.3 fl 35.1-43.9 [facility] Screening total cholesterol/ high density lipoprotein (HDL) cholesterol ratioOrdered By: Junior Dunn on 10-07-2024 Cholesterol.total/Choles terol in HDL [Mass ratio] 3.77 {ratio} [facility] Serum creatinine measurement (mass/volume)Ordered By: Megan Gomez on 10-07-2024 Creatinine [Mass/Vol] 1.08 mg/dL 0.70-1.20 [facility] Serum globulin measurementOr dered By: Megan Gomez on 10-07-2024 Globulin (S) [Mass/Vol] 2.9 g/dL 2.2-4.2 [facility] Serum glucose measurement (m ass/volume)Ordered By: Megan Gomez on 10-07-2024 Glucose [Mass/Vol] 150 mg/dL High 70-[address] [facility] Serum or plasma alanine tobar otransferase (ALT) measurementOrdered By: Megan Gomez on 10-07-2024 ALT [Catalytic activity/Vol] 58 U/L High <35 [facility] Serum or plasma albumin thiago urement (mass/volume)Ordered By: Megan Gomez on 10-07-2024 Albumin [Mass/Vol] 4.1 g/dL 3.5-5.[address] [facility] Serum or plasma albumin/glob ulin mass ratioOrdered By: Megan Gomez on 10-07-2024 Albumin/Globulin [Mass ratio] 1.4 {ratio} 0.9-2.4 [facility] Serum or plasma alkaline meg sphatase measurementOrdered By: Megan Gomez on 10-07-2024 ALP [Catalytic activity/Vol] 46 U/L 35-104 [facility] Serum or plasma calcium thiago urement (mass/volume)Ordered By: Megan Gomez on 10-07-2024 Calcium [Mass/Vol] 9.9 mg/dL 7.6-11.[address] [facility] Serum or plasma cholesterol in HDL measurement (mass/volume)Ordered By: Junior Dunn on 10-07-2024 Cholesterol in HDL [Mass/Vol] 30 mg/dL Low >40 [facility] Comment on above: National Cholesterol Education Program (NCEP) guidelines:<40 mg/dL: Low HDL-cholesterol (major risk factor for CHD)>= 60 mg/dL: High HDL-cholesterol (negative risk factor for CHD)HDL-cholesterol is affected by a number of factors, e.g. smoking, exercise, hormones, sex and age. Serum or plasma cholesterol measurement (mass/volume)Ordered By: Junior Dunn on 10-07-2024 Cholesterol [Mass/Vol] 113 mg/dL <201 [facility] Comment on above: Cholesterol level, D esirable <200 mg/dLBorderline high cholesterol 200-239 mg/dLHigh cholesterol >=240 mg/dLRecommendations of the NCEP Adult Treatment Panel for the following risk-cutoff thresholds for the [place] population. Serum or plasma urea nitroge n measurement (mass/volume)Ordered By: Megan White on 10-07-2024 Urea nitrogen [Mass/Vol] 24 mg/dL High 4-19 [facility] Sodium levelOrdered By: Tommy mejia White on 10-07-2024 Sodium [Moles/Vol] 140 mmol/L 133-[address] [facility] Stress Reporton 10-07-2024 Stress Report [facility] Services [address] [place] [address] MR#: [id number] Acct: [id number] Name: ARLEN NGUYEN Rep #: [id number] : 1970 54 From: Josh Gibbs MD Primary Care: Dr. Phu Espinoza MD Status: ADM NATALIE Referring Dr: Sex: F C Stress Test Report Pharmacologic myocardial perfusion stress test. 54-year-old lady with a history of chest pain Resting EKG demonstrates sinus rhythm with a rate of 110 bpm. Resting blood pressure is 138/70 mmHg. 0.4 mg of regadenoson was infused per usual protocol followed by rapid intravenous saline flush injection. Continuous EKG monitoring was performed. The maximum heart rate was 110 bpm which was 66% of max impacted heart rate the maximum workload was 1 metabolic equivalent. At rest there were no ST or T wave changes noted to suggest ischemia and at peak infusion nonspecific ST changes were noted which did not meet the criteria for ischemia. No clinical angina is noted. The final blood pressure was 146/80 mmHg. Myocardial perfusion protocol. 14.5 mCi of technetium 99m sestamibi was injected at rest. 0.4 mg of regadenoson was infused per usual protocol. At peak infusion 44.6 mCi of technetium 99m sestamibi was injected stress images were obtained stress and rest images were reconstructed and compared in the short axis vertical long and horizontal long axis. Gated images were also obtained. Perfusion SPECT analysis: Review of the stress images demonstrate normal uptake of tracer noted in all areas of the myocardium. The resting images similar demonstrated normal uptake of tracer noted in all areas of the myocardium. No areas of reversibility are noted to suggest ischemia and no previous infarct is noted. Gated SPECT analysis: The gated ejection fraction is 60%. Conclusion: Normal pharmacologic myocardial perfusion stress test. Preserved ejection fraction. 10/07/241420 Date Josh Gibbs MD CC: Dr. Junior Dunn DO; Dr. Megan Gomez MD; Dr. Octavio Archuleta MD; Dr. Anton Thacker DO; Dr. Phu Espinoza MD Date Dictated: 10/07/241419 Date Transcribed: 10/07/241419 Dehydrogenation Converter Operator: CO Signed Normal [facility] Total proteinOrdered By: Ana M Gomez on 10-07-2024 Protein [Mass/Vol] 7.0 g/dL 5.9-8.[address] [facility] Triglycerides measurementOrd ered By: Junior Dunn on 10-07-2024 Triglyceride [Mass/Vol] 196 mg/dL <199 [facility] Comment on above: The drugs N-Acetylcy steine and Metamizole may falsely depress this assay. Normal range: <150 mg/dLBorderline High: 150-199 mg/dLHigh: 200-499 mg/dLVery High: >500 mg/dL White blood cell (WBC) count Ordered By: Megan Gomez on 10-07-2024 WBC (Bld) [#/Vol] 6.6 10*3/uL 4.4-11.[address] [facility] 12 Lead EKGon 10-06-2024 12 Lead EKG [facility] Cardiovascular Services [address] [place] [address] 12 Lead EKG 10/05/24 2323 MR#: [id number] Acct: [id number] Name: ARLEN NGUYEN Rep #: [id number] : 1970 54 From: Lois Das MD Attending Dr: Dr. Octavio Archuleta MD Status: DIS NATALIE Ordering Dr: Junior Dunn DO Date: 10/06/24 Location: [facility] Sex: F C Admitted: 10/05/24 Test Reason : CP ADMISSION Blood Pressure : */* mmHG Vent. Rate : 78 BPM Atrial Rate : 78 BPM P-R Int : 172 ms QRS Dur : 82 ms QT Int : 402 ms P-R-T Axes : 44 11 42 degrees QTcB Int : 458 ms Normal sinus rhythm Low voltage QRS Borderline ECG When compared with ECG of 05-Oct-2024 19:23, MANUAL COMPARISON REQUIRED DATA IS UNCONFIRMED Confirmed by MD JONATHAN, LOIS ([id number]), loan expeditor MAXIMO BARILLAS ([id number]) on 10/08/2024 10:58:51 AM Referred By: Confirmed By: LOIS DAS MD 10/08/24 1058 Date Lois Das MD CC: Dr. Junior Dunn DO; Dr. Octavio Archuleta MD; Dr. Phu Espinoza MD Signed Normal [facility] Basic Metabolic Profile (BMP )on 10-06-2024 BUN/CRE 19.0 RATIO Normal 10-20 [facility] Comment on above: Order Comment: OK TO ADD TO MORNING RUN PER KAMLA RNadd to this AM labs if able. Performed By: #### L 500.2500 ####[facility] [address] [place], [address] Calcium [Mass/Vol] 9.1 mg/dL Normal 7.6-11.[address] [facility] Comment on above: Order Comment: OK TO ADD TO MORNING RUN PER KAMLA RNadd to this AM labs if able. Performed By: #### L 500.2500 ####[facility] [address] [place], [address] Chloride [Moles/Vol] 104 mmol/L Normal 98-108 [facility] Comment on above: Order Comment: OK TO ADD TO MORNING RUN PER KAMLA RNadd to this AM labs if able. Performed By: #### L 500.2500 ####[facility] [address] [place], [address] CO2 [Moles/Vol] 22.7 mmol/L Normal 21.0-32.0 [facility] Comment on above: Order Comment: OK TO ADD TO MORNING RUN PER KAMLA RNadd to this AM labs if able. Performed By: #### L 500.2500 ####[facility] [address] [place], [place], [id number] Creatinine [Mass/Vol] 1.24 mg/dL High 0.70-1.20 [facility] Comment on above: Order Comment: OK TO ADD TO MORNING RUN PER KAMLA RNadd to this AM labs if able. Performed By: #### L 500.2500 ####[facility] [address] [place], [place], [id number] ECRCL 73.13 ml/min Normal 50-250 [facility] Comment on above: Order Comment: OK TO ADD TO MORNING RUN PER KAMLA RNadd to this AM labs if able. Performed By: #### L 500.2500 ####[facility] [address] [place], [address] GAP 12 Normal 5-15 [facility] Comment on above: Order Comment: OK TO ADD TO MORNING RUN PER KAMLA RNadd to this AM labs if able. Performed By: #### L 500.2500 ####[facility] [address] [place], [place], [id number] GFR/1.73 sq M.predicted among non-blacks MDRD (S/P/Bld) [Vol rate/Area] 52 mL/min/{1.73_m2} Low >60 [facility] Comment on above: Order Comment: OK TO ADD TO MORNING RUN PER KAMLA RNadd to this AM labs if able. Result Comment: mL/m in/1.73m2 CKD-EPI Creatinine Equation (2020) Performed By: #### L 500.2500 ####[facility] [address] [place], [place], [phone] Glucose [Mass/Vol] 135 mg/dL High 70-[address] [facility] Comment on above: Order Comment: OK TO ADD TO MORNING RUN PER KAMLA RNadd to this AM labs if able. Performed By: #### L 500.2500 ####[facility] [address] [place], [address] Potassium [Moles/Vol] 4.6 mmol/L Normal 3.3-5.1 [facility] Comment on above: Order Comment: OK TO ADD TO MORNING RUN PER KAMLA RNadd to this AM labs if able. Performed By: #### L 500.2500 ####[facility] [address] [place], [address] Sodium [Moles/Vol] 139 mmol/L Normal 133-[address] [facility] Comment on above: Order Comment: OK TO ADD TO MORNING RUN PER KAMLA RNadd to this AM labs if able. Performed By: #### L 500.2500 ####[facility] [address] [place], [address] Urea nitrogen [Mass/Vol] 24 mg/dL High 4-19 [facility] Comment on above: Order Comment: OK TO ADD TO MORNING RUN PER KAMAL RNadd to this AM labs if able. Performed By: #### L 500.2500 ####[facility] [address] [place], [address] Bedside Glucoseon 10-06-2024 FINGERSTICK GLU 180 mg/dL High 74-106 [facility] Comment on above: Result Comment: YESSENIA GEMENT OF PATIENT CARE PER NURSING PROTOCOL Performed By: #### L 501.080 ####[facility] [address] [place], [address] FINGERSTICK GLU 154 mg/dL High 74-106 [facility] Comment on above: Result Comment: YESSENIA GEMENT OF PATIENT CARE PER NURSING PROTOCOL Performed By: #### L 501.080 #### [facility] [address] [place], [address] FINGERSTICK GLU 173 mg/dL High 74-106 [facility] Comment on above: Result Comment: YESSENIA GEMENT OF PATIENT CARE PER NURSING PROTOCOL Performed By: #### L 501.4021, L501.5200 #### [facility] [address] [place], [address] FINGERSTICK GLU 125 mg/dL High 74-106 [facility] Comment on above: Result Comment: YESSENIA GEMENT OF PATIENT CARE PER NURSING PROTOCOL Performed By: #### L 500.2500 #### [facility] [address] [place], [address] CBC-Complete Blood Cnt No Di ffon 10-06-2024 Erythrocyte distribution width (RBC) [Ratio] 15.7 % High 11.6-14.6 [facility] Comment on above: Performed By: #### L 501.080 #### [facility] [address] [place], [address] Hematocrit (Bld) [Volume fraction] 32.0 % Low 37-47 [facility] Comment on above: Performed By: #### L 501.080 #### [facility] [address] [place], [address] Hemoglobin (Bld) [Mass/Vol] 10.1 g/dL Low 12.0-15.0 [facility] Comment on above: Performed By: #### L 501.080 #### [facility] [address] [place], [address] MCH (RBC) [Entitic mass] 24.3 pg Low 27.0-32.0 [facility] Comment on above: Performed By: #### L 501.080 #### [facility] [address] [place], [address] MCHC (RBC) [Mass/Vol] 31.6 g/dL Low 32-36 [facility] Comment on above: Performed By: #### L 501.080 #### [facility] [address] [place], [address] MCV (RBC) [Entitic vol] 77.1 fL Low 81-99 [facility] Comment on above: Performed By: #### L 501.080 #### [facility] [address] [place], [address] Platelet mean volume (Bld) [Entitic vol] 10.1 fL Normal 6.2-12.0 [facility] Comment on above: Performed By: #### L 501.080 #### [facility] [address] [place], [address] Platelets (Bld) [#/Vol] 233 10*3/uL Normal 150-450 [facility] Comment on above: Performed By: #### L 501.080 #### [facility] [address] [place], [address] RBC (Bld) [#/Vol] 4.15 10*6/uL Low 4.2-5.4 [facility] Comment on above: Performed By: #### L 501.080 #### [facility] [address] [place], [address] RDW SD 43.8 fl Normal 35.1-43.9 [facility] Comment on above: Performed By: #### L 501.080 #### [facility] [address] [place], [address] WBC (Bld) [#/Vol] 7.2 10*3/uL Normal 4.4-11.[address] [facility] Comment on above: Performed By: #### L 501.080 #### [facility] [address] [place], [address] L499.0043on 10-06-2024 Trop T High Sen 34 ng/L High <=14 [facility] Comment on above: Performed By: #### L 500.2500 #### [facility] [address] [place], [address] L501.4021on 10-06-2024 Trop T High Sen 24 ng/L High <=14 [facility] Comment on above: Order Comment: Comme nts: may add to ED labs Performed By: #### L 501.4021, L501.5200 #### [facility] [address] [place], [address] Magnesiumon 10-06-2024 Magnesium [Mass/Vol] 1.3 mg/dL Low 1.5-2.2 [facility] Comment on above: Order Comment: Comme nts: may add to ED labs Performed By: #### L 501.4021, L501.5200 #### [facility] [address] [place], [address] Troponin T.cardiac [Mass/vol ume] in Serum or Plasma by High sensitivity methodOrdered By: Megan Gomez on 10-06-2024 Troponin T.cardiac High sensitivity method [Mass/Vol] 24 ng/L High <14 [facility] Comment on above: Delta: 21 on 12 Lead EKGon 10-05-2024 12 Lead EKG [facility] Cardiovascular Services [address] [place] [address] 12 Lead EKG 10/06/24 2354 MR#: [id number] Acct: [id number] Name: ARLEN NGUYEN Rep #: [id number] : 1970 54 From: Sony Yip MD Attending Dr: Dr. Octavio Archuleta MD Status: DIS NATALIE Ordering Dr: Junior Dunn DO Date: 10/05/24 Location: [facility] Sex: F C Admitted: 10/05/24 Test Reason : CHEST DISCOMFORT Blood Pressure : */* mmHG Vent. Rate : 74 BPM Atrial Rate : 74 BPM P-R Int : 172 ms QRS Dur : 84 ms QT Int : 398 ms P-R-T Axes : 13 24 35 degrees QTcB Int : 441 ms Normal sinus rhythm Low voltage QRS Borderline ECG When compared with ECG of 05-Oct-2024 23:23, MANUAL COMPARISON REQUIRED DATA IS UNCONFIRMED Confirmed by Sony Yip ([id number]), loan expeditor MAXIMO BARILLAS ([id number]) on 10/10/2024 8:38:17 AM Referred By: JASON Confirmed By: Sony Yip 10/10/24 0838 Date Sony Yip MD CC: Dr. Junior Dunn DO; Dr. Octavio Archuleta MD; Dr. Phu Espinoza MD Signed [facility] 12 Lead EKG [facility] Cardiovascular Services [address] [place] [address] 12 Lead EKG 10/05/24 1923 MR#: [id number] Acct: [id number] Name: ARLEN NGUYEN Rep #: [id number] : 1970 54 From: Josh Gibbs MD Attending Dr: Dr. Octavio Archuleta MD Status: ADM NATALIE Ordering Dr: Anton Thacker DO Date: 10/05/24 Location: [facility] Sex: F C Admitted: 10/05/24 Test Reason : CP Blood Pressure : */* mmHG Vent. Rate : 73 BPM Atrial Rate : 73 BPM P-R Int : 140 ms QRS Dur : 80 ms QT Int : 398 ms P-R-T Axes : 6 48 41 degrees QTcB Int : 438 ms Normal sinus rhythm Low voltage QRS Borderline ECG Confirmed by BERNIE DICKENS, JOSH ([id number]), loan expeditor MAXIMO BARILLAS ([id number]) on 10/07/2024 11:35:42 AM Referred By: JEAN-PAUL Confirmed By: JOSH GIBBS MD 10/07/24 1135 Date Josh Gibbs MD CC: Dr. Octavio Archuleta MD; Dr. Anton Thacker DO; Dr. Phu Espinoza MD Signed Normal [facility] Absolute lymphocyte countOrd ered By: Rem Kirstie on 10-05-2024 Lymphocytes Auto (Unsp spec) [#/Vol] 3.48 10*3/uL 0.83-4.51 [facility] Absolute neutrophil countOrd ered By: [facility] Kirstie on 10-05-2024 Neutrophils (Bld) [#/Vol] 4.9 10*3/uL 2.0-7.7 [facility] Anion gap in Serum or Plasma Ordered By: [facility] Th[facility] on 10-05-2024 Anion gap [Moles/Vol] 15 mmol/L 5- [facility] Automated lymphocyte count a s percentage of total leukocytesOrdered By: [facility] Thacker on 10-05-2024 Lymphocytes/100 WBC Auto (Unsp spec) 36.5 % - [facility] BUN/creatinine ratioOrdered By: [facility] on 10-05-2024 Urea nitrogen/Creatinine [Mass ratio] 20.9 mg/mg High 10- [facility] Basic Metabolic Profile (BMP )on 10-05-2024 BUN/CRE 21.1 RATIO High - [facility] Comment on above: Performed By: #### L 500.2500 #### [facility] [address] [facility] [address] Calcium [Mass/Vol] 9.6 mg/dL Normal 7.6-11.[address] [facility] Comment on above: Performed By: #### L 500.2500 #### [facility] [address] [place], [address] Chloride [Moles/Vol] 104 mmol/L Normal 98-108 [facility] Comment on above: Performed By: #### L 500.2500 #### [facility] [address] [facility] [address] CO2 [Moles/Vol] 21.0 mmol/L Normal 21.0-32.0 [facility] Comment on above: Performed By: #### L 500.2500 #### [facility] [address] [place], [address] Creatinine [Mass/Vol] 1.32 mg/dL High 0.70-1.20 [facility] Comment on above: Performed By: #### L 500.2500 #### [facility] [address] [place], [address] ECRCL 68.70 ml/min Normal 50-250 [facility] Comment on above: Performed By: #### L 500.2500 #### [facility] [address] [place], [address] GAP 15 Normal 5-15 [facility] Comment on above: Performed By: #### L 500.2500 #### [facility] [address] [place], [address] GFR/1.73 sq M.predicted among non-blacks MDRD (S/P/Bld) [Vol rate/Area] 48 mL/min/{1.73_m2} Low >60 [facility] Comment on above: Result Comment: mL/m in/1.73m2 CKD-EPI Creatinine Equation (2020) Performed By: #### L 500.2500 #### [facility] [address] [place], [address] Glucose [Mass/Vol] 115 mg/dL High 70-[address] [facility] Comment on above: Performed By: #### L 500.2500 #### [facility] [address] [place], [address] Potassium [Moles/Vol] 4.7 mmol/L Normal 3.3-5.1 [facility] Comment on above: Performed By: #### L 500.2500 #### [facility] [address] [place], [address] Sodium [Moles/Vol] 141 mmol/L Normal 133-[address] [facility] Comment on above: Performed By: #### L 500.2500 #### [facility] [address] [place], [address] Urea nitrogen [Mass/Vol] 28 mg/dL High 4-19 [facility] Comment on above: Performed By: #### L 500.2500 #### [facility] [address] [place], [address] BUN/CRE 20.9 RATIO High 10-20 [facility] Comment on above: Performed By: #### L 501.4021, L501.5200 #### [facility] [address] [place], [address] Calcium [Mass/Vol] 10.2 mg/dL Normal 7.6-11.[address] [facility] Comment on above: Performed By: #### L 501.4021, L501.5200 #### [facility] [address] [place], [address] Chloride [Moles/Vol] 104 mmol/L Normal 98-108 [facility] Comment on above: Performed By: #### L 501.4021, L501.5200 #### [facility] [address] [place], [address] CO2 [Moles/Vol] 21.3 mmol/L Normal 21.0-32.0 [facility] Comment on above: Performed By: #### L 501.4021, L501.5200 #### [facility] [address] [place], [address] Creatinine [Mass/Vol] 1.37 mg/dL High 0.70-1.20 [facility] Comment on above: Performed By: #### L 501.4021, L501.5200 #### [facility] [address] [place], [address] ECRCL 66.52 ml/min Normal 50-250 [facility] Comment on above: Performed By: #### L 501.4021, L501.5200 #### [facility] [address] [place], [address] GAP 15 Normal 5-15 [facility] Comment on above: Performed By: #### L 501.4021, L501.5200 #### [facility] [address] [place], [address] GFR/1.73 sq M.predicted among non-blacks MDRD (S/P/Bld) [Vol rate/Area] 46 mL/min/{1.73_m2} Low >60 [facility] Comment on above: Result Comment: mL/m in/1.73m2 CKD-EPI Creatinine Equation (2020) Performed By: #### L 501.4021, L501.5200 #### [facility] [address] [place], [address] Glucose [Mass/Vol] 103 mg/dL High 70-[address] [facility] Comment on above: Performed By: #### L 501.4021, L501.5200 #### [facility] [address] [place], [address] Potassium [Moles/Vol] 4.8 mmol/L Normal 3.3-5.1 [facility] Comment on above: Performed By: #### L 501.4021, [id number] #### [facility] [address] [place], [address] Sodium [Moles/Vol] 140 mmol/L Normal 133-[address] [facility] Comment on above: Performed By: #### L [id number], [id number] #### [facility] [address] [place], [address] Urea nitrogen [Mass/Vol] 29 mg/dL High 4-19 [facility] Comment on above: Performed By: #### L 501.4021, L501.5200 #### [facility] [address] [place], [address] Basophil percentageOrdered B y: Anton Ungalesha on 10-05-2024 Basophils/100 WBC (Bld) 0.5 % 0-1 [facility] Bedside Glucoseon 10-05-2024 FINGERSTICK GLU 126 mg/dL High 74-106 [facility] Comment on above: Result Comment: YESSENIA SANCHEZ OF PATIENT CARE PER NURSING PROTOCOL Performed By: #### L 501.080 #### [facility] [address] [place], [address] CBC W/Diff, Automatedon 09-24 Absolute Lymph 3.48 X10 3/uL Normal 0.83-4.51 [facility] Comment on above: Performed By: #### L 501.080 #### [facility] [address] [place], [address] Absolute Neut 4.9 X10 3/uL Normal 2.0-7.7 [facility] Comment on above: Performed By: #### L 501.080 #### [facility] [address] [place], [address] Basophils/100 WBC (Bld) 0.5 % Normal 0-1 [facility] Comment on above: Performed By: #### L 501.080 #### [facility] [address] [place], [address] Eosinophils/100 WBC (Bld) 1.6 % Normal 0-5 [facility] Comment on above: Performed By: #### L 501.080 #### [facility] [address] [place], [address] Erythrocyte distribution width (RBC) [Ratio] 15.5 % High 11.6-14.6 [facility] Comment on above: Performed By: #### L 501.080 #### [facility] [address] [place], [address] Hematocrit (Bld) [Volume fraction] 34.7 % Low 37-47 [facility] Comment on above: Performed By: #### L 501.080 #### [facility] [address] [place], [address] Hemoglobin (Bld) [Mass/Vol] 10.9 g/dL Low 12.0-15.0 [facility] Comment on above: Performed By: #### L 501.080 #### [facility] [address] [place], [address] IG% 0.200 Normal 0.0-0.9 [facility] Comment on above: Result Comment: IG% - Immature Granulocytes (promyelocytes, myelocytes and metamyelocytes) > 1% indicates that a LEFT SHIFT is Present. Performed By: #### L 501.080 #### [facility] [address] [place], [address] Lymphocytes/100 WBC (Bld) 36.5 % Normal 19-41 [facility] Comment on above: Performed By: #### L 501.080 #### [facility] [address] [place], [address] MCH (RBC) [Entitic mass] 23.9 pg Low 27.0-32.0 [facility] Comment on above: Performed By: #### L [id number] #### [facility] [address] [place], [address] MCHC (RBC) [Mass/Vol] 31.4 g/dL Low 32-36 [facility] Comment on above: Performed By: #### L [id number] #### [facility] [address] [place], [address] MCV (RBC) [Entitic vol] 76.1 fL Low 81-99 [facility] Comment on above: Performed By: #### L [id number] #### [facility] [address] [place], [address] Monocytes/100 WBC (Bld) 9.5 % Normal 0-10 [facility] Comment on above: Performed By: #### L [id number] #### [facility] [address] [place], [address] Neutrophils/100 WBC (Bld) 51.7 % Normal 47-70 [facility] Comment on above: Performed By: #### L 501.080 #### [facility] [address] [place], [address] Nucleated RBC (Bld) [#/Vol] 0 10*3/uL Normal 0-5 [facility] Comment on above: Performed By: #### L 501.080 #### [facility] [address] [place], [address] Platelet mean volume (Bld) [Entitic vol] 9.7 fL Normal 6.2-12.0 [facility] Comment on above: Performed By: #### L 501.080 #### [facility] [address] [place], [address] Platelets (Bld) [#/Vol] 276 10*3/uL Normal 150-450 [facility] Comment on above: Performed By: #### L 501.080 #### [facility] [address] [place], [address] RBC (Bld) [#/Vol] 4.56 10*6/uL Normal 4.2-5.4 [facility] Comment on above: Performed By: #### L 501.080 #### [facility] [address] [place], [address] RDW SD 42.5 fl Normal 35.1-43.9 [facility] Comment on above: Performed By: #### L 501.080 #### [facility] [address] [place], [address] WBC (Bld) [#/Vol] 9.5 10*3/uL Normal 4.4-11.[address] [facility] Comment on above: Performed By: #### L 501.080 #### [facility] [address] [place], [place], [address] Carbon dioxide, total [Moles /volume] in Central venous bloodOrdered By: Anton Thacker on 10-05-2024 CO2 [Moles/Vol] 21.3 mmol/L 21.0-32.0 [facility] Chest 1 View (Portable)on Chest 1 View (Portable) [facility] Imaging Services [address] [place], [place] [address] Chest 1 View (Portable) MR#: [id number] Acct: [id number] Name: ARLEN NGUYEN Rep #: [id number] : 1970 F 54 From: Ritchie Caraballo MD PCP: Dr. Phu Espinoza MD Status: REG ER Study: Chest 1 View (Portable) Date of Exam: 10/05/24 Exam# [id number] Ordering Dr: Anton Thacker DO PROCEDURE: CHEST 1 VIEW (PORTABLE) 10/05/2024 REASON FOR EXAM: CHEST PAIN TECHNIQUE: Frontal view of the chest. COMPARISON: Chest radiographs on 03/04/2024 and 03/03/2021 FINDINGS: Hardware: None Heart: Cardiac and mediastinal contours are stable given differences in technique. Lungs: No focal consolidation or pleural effusion. Eventration of the right hemidiaphragm is unchanged. Bones: Unremarkable RAD/Chest 1 View (Portable) IMPRESSION: No acute cardiopulmonary abnormality. Reading Location: [facility] CC: Dr. Anton Thacker DO; Dr. Phu Espinoza MD Dehydrogenation Converter Operator: Signed Normal [facility] Chloride assayOrdered By: Arabella Thacker on 10-05-2024 Chloride [Moles/Vol] 104 mmol/L 98-108 [facility] D-Dimer Quantitative (DVT/PE )on 10-05-2024 D-DIMER QUANT 0.42 FEU/ug/m Normal 0.27-0.49 [facility] Comment on above: Result Comment: NORM AL D-Dimer level (<0.50) indicates no DVT or PE. Performed By: #### L 501.080 #### [facility] [address] [place], [address] Echo Complete W/ Contraston 10-05-2024 Echo Complete W/ Contrast [facility] [address] [place] [address] Echo Complete W/ Contrast 10/07/24 1125 MR#: [id number] Acct: [id number] Name: ARLEN NGUYEN Rep #: [id number] : 1970 54 From: Ronda Schaefer MD Attending Dr: Dr. Octavio Archuleta MD Status: ADM NATALIE Ordering Dr: Junior Dunn DO Date: 10/05/24 Location: [facility] Sex: F C Admitted: 10/05/24 Reason For Study Reason For Study: Chest pain Procedure This was a 2D Doppler, Color Flow transthoracic echocardiogram. The study was technically difficult. Exam performed portable in patient room. Left Ventricle Normal size and thickness. The LV ejection fraction is 65 %. Stage 1 diastolic dysfunction. Right Ventricle Normal right ventricle. Atria The left and right atria are normal. Mitral Valve Trivial mitral valve insufficiency. Tricuspid Valve Trivial tricuspid valve insufficiency. Unable to estimate RV systolic pressure due to insufficient tricuspid regurgitant envelope. Aortic Valve Trisinus/trileaflet aortic valve. Pulmonic Valve The pulmonic valve is not well visualized. Great Vessels Normal sized aortic root. Pericardium/Pleural No pericardial effusion. Medication Diluted definity 1.5ml given slow IV push to enhance endocardial definition. MMode/2D Measurements Calculations LVIDd: 5.4 cm IVSd: 1.1 cm Ao root diam: 3.2 cm LVIDs: 3.2 cm LVPWd: 1.0 cm RVDd: 3.2 cm FS: 40.1 % LAV(MOD-bp): 44.2 ml LVAd ap4: 40.6 cm2 LVAd ap2: 34.3 cm2 LAV(MOD-bp) Indexed: 18.7 ml/m2 LVLd ap4: 8.9 cm LVLd ap2: 8.1 cm LAV(MOD-sp2): 40.3 ml EDV(MOD-sp4): 150.4 ml EDV(MOD-sp2): 118.2 ml LAV(MOD-sp4): 43.9 ml EDV(sp4-el): 156.5 ml EDV(sp2-el): 124.3 ml LVAs ap4: 20.7 cm2 LVAs ap2: 19.2 cm2 LVLs ap4: 7.2 cm LVLs ap2: 6.8 cm ESV(MOD-sp4): 47.9 ml ESV(MOD-sp2): 43.3 ml ESV(sp4-el): 50.8 ml ESV(sp2-el): 46.1 ml EF(MOD-sp4): 68.2 % EF(MOD-sp2): 63.3 % EF(sp4-el): 67.6 % SV(MOD-sp4): 102.5 ml SV(MOD-sp2): 74.9 ml SV(sp4-el): 105.7 ml SI(MOD-sp4): 43.3 ml/m2 SI(MOD-sp2): 31.6 ml/m2 LA A4 area: 17.4 cm2 LA dimension(2D): 3.2 cm RA A4 area: 13.7 cm2 TAPSE: 2.4 cm Time Measurements MV dec time: 0.29 sec Doppler Measurements Calculations MV E max jorgito: 48.9 cm/sec Lat Peak E' Jorgito: 10.0 cm/sec Med Peak E' Jorgito: 8.1 cm/sec MV A max jorgito: 81.4 cm/sec E/E' lat: 4.9 E/E' med: 6.0 MV E/A: 0.60 MV dec slope: 171.6 cm/sec2 Ao V2 max: 155.5 cm/sec LV V1 max: 139.6 cm/sec Ao max P.9 mmHg LV V1 max P.8 mmHg PA V2 max: 75.1 cm/sec ECHO/Echo Complete W/ Contrast Interpretation Summary The LV ejection fraction is 65 %. Stage 1 diastolic dysfunction. Ordering Physician: Junior Dunn Referring Physician: Phu Espinoza Chi Performed By: Maine Akbar RDCS 10/07/24 1422 Date Ronda Schaefer MD CC: Dr. Junior Dunn DO; Dr. Octavio Archuleta MD; Dr. Phu Espinoza MD Date Dictated: 10/07/24 1125 Date Transcribed: 10/07/24 142 Dehydrogenation Converter Operator: Signed Normal [facility] Emergency Department Summary on 10-05-2024 Emergency Department Summary [facility] Medical Records Department [address] [place] [id number] Emergency Department Summary 10/05/24 MR#: [id number] Acct: [id number] Name: ARLEN NGUYEN Rep #: [id number] : 1970 54 From: Anton Thacker DO PCP: Dr. Phu Espinoza MD Status:ADM NATALIE Location: [address] History of Present Illness Chief Complaint: Chest Pain Detail of Chief Complaint: Chest pain Informant: patient and spouse/S.O. Narrative Narrative: Patient presents with left-sided chest pain that started 3 days ago. Pain seemed to intensify today. Describes it as a pressure or heaviness at times and at times it sharp. Also was noted sometimes with walking her heart rate will dip down into the 30s. Patient states the discomfort sometimes radiates to her left arm. Feels somewhat short of breath and dizzy. Denies recent surgery although she recently had travel to [place] by car but it was less than 4 hours. No history of PE or DVT. She has no heart history. She is a diabetic and has history of hypertension and high cholesterol. Patient also with history of anxiety and history of GERD. Currently rates her pain a 5 out of 10. [facility] Medical History Post-menopausal Wears contact lenses Anxiety [...] Morbid obesity with BMI of 45.0-49.9, adult Home Medications ???Medication ???Instructions ???Recorded ???Last Taken ???Type albuterol sulfate 90 mcg/actuation 1 puff inhalation Q4H PRN PRN 01/28/22 History aerosol inhaler (Ventolin HFA) Shortness Of Breath zolpidem 10 mg tablet (Ambien) 5 mg PO QHS PRN sleep 12/01/1301/15 History epinephrine 0.3 mg/0.3 mL 0.3 mg (0.3 mL) IJ X1 PRN 02/03/19 Unknown Rx injection, auto-injector Anaphylaxis ##1 atorvastatin 40 mg tablet 40 mg PO DAILY 02/03/21 02/03/22 H istory cetirizine 10 mg tablet 10 mg PO DAILY 02/03/21 02/03/22 H istory valsartan 320 mg tablet 320 mg PO QHS 03/07/23 Unknown His tory metformin 1,000 mg tablet 1,000 mg PO BID 11/01/23 Unknown H istory paroxetine HCl 40 mg tablet 40 mg PO QDAY 11/01/23 Unknown His tory insulin lispro 200 unit/mL (3 mL) 170 unit (0.85 mL) subcut ONCE Unknown Rx subcutaneous pen (Humalog KwikPen #76.5 mL U-200 Insulin) levothyroxine 125 mcg tablet 125 mcg PO QDAY #90 tabs 05/02/24 Unknown Rx empagliflozin 25 mg tablet 25 mg PO QDAY #90 tabs 06/10/24 Un known Rx (Jardiance) finerenone 10 mg tablet (Kerendia) 10 mg PO DAILY 10/05/24 Unknown History pantoprazole 40 mg tablet,delayed 40 mg PO DAILY 10/05/24 Unknown H istory release polysaccharide iron complex 150 mg 150 mg PO DAILY 10/05/24 Unknown History iron capsule (Ferrex) sulfamethoxazole 800 1 tab PO QHS 10/05/24 Unknown Hist ory mg-trimethoprim 160 mg tablet Allergy/AdvReac Type Severity Reaction Status Date / Time nut - unspecified Allergy Anaphylaxis Verified 10/05/24 19:16 peanut Allergy Anaphylaxis Verified 10/05/24 19:16 shellfish derived Allergy Anaphylaxis Verified 10/05/24 19:16 codeine AdvReac Rash Verified 10/05/24 19:16 prednisone AdvReac Other Verified 10/05/24 19:16 sertraline HCl (From Zoloft) AdvReac Other Verified 10/05/24 19:16 Family History Other Alcohol abuse Anxiety Arthritis Asthma Bleeding disorder Bowel disease Depression Diabetes Hypertension Severe allergy Surgical History History of endometrial ablation History of removal of ovarian cyst History of cholecystectomy Social History household members: none Smoking Status: Never smoker alcohol intake: current alcohol intake frequency: 0-2 drinks per day substance use type: does not use what type of physical activity do you participate in: walking ROS ROS ED Review of Systems ROS Unobtainable: other Constitutional Constitutional ED: Reports lethargy; Denies chills, fever(s), sweats or weight loss Eyes Eyes: Denies blurry vision, change in vision or diplopia ENT ENT ED: Denies rhinorrhea or sore throat Cardiov (more content not included)... Normal [facility] Eosinophil percentageOrdered By: Anton Thacker on 10-05-2024 Eosinophils/100 WBC (Bld) 1.6 % 0-5 [facility] Erythrocyte distribution wid th ratioOrdered By: Remus Ungalesha on 10-05-2024 Erythrocyte distribution width (RBC) [Ratio] 15.5 % High 11.6-14.6 [facility] Erythrocyte distribution wid th standard deviationOrdered By: Remus Ungalesha on 10-05-2024 Erythrocyte distribution width (RBC) [Ratio] 42.5 fl 35.1-43.9 [facility] Glomerular filtration rate ( GFR) estimation/1.73 sq m using serum, plasma, or whole bOrdered By: Remus Ungalesha on 10-05-2024 GFR/1.73 sq M.predicted among non-blacks MDRD (S/P/Bld) [Vol rate/Area] 46 mL/min/{1.73_m2} Low >60 [facility] Comment on above: mL/min/1.73m2 CKD-EP I Creatinine Equation (2020) H AND P Exam - [facility] 10-05-2024 H&P Exam - Hospitalist [facility] Medical Records Department [address] [place] [address] H P Exam - Hospitalist 10/05/24 2110 MR#: [id number] Acct: [id number] Name: ARLEN NGUYEN Rep #: [id number] : 1970 54 From: Junior Dunn DO PCP: Dr. Phu Espinoza MD Status:ADM NATALIE Location: [place] [address] HPI - General General Date of Admission: 10/05/24 Date of Service: 10/05/24 Chief Complaint: Chest pain HPI Narrative ARLEN NGUYEN, is a 54 F who presented to [facility] ED on 10/05/2024 with chest pain. Medical history significant for class III obesity, type 2 diabetes, hypertension, hyperlipidemia, hypothyroidism, mood disorder, GERD and iron deficiency anemia. Patient reports intermittent chest discomfort for the past 3 days. The discomfort will radiate into her left arm at times. She will feel short of breath and dizzy with these episodes. In the ED she was normotensive, in normal sinus rhythm and stable on room air. CBC benign. BMP with creatinine 1.37, baseline around 1.0. Troponin trend 21 > 22. EKG showed normal sinus rhythm with no ST changes. Chest x-ray was unremarkable. Last echo was from 2014 and patient has never had stress testing done. Given chest pain with need for ACS rule out, hospitalist was contacted for admission. I saw the patient at bedside in the ED, was present. Patient was sitting back in bed fairly comfortably and in no acute distress. She did have a flat affect and appeared depressed. She reported ongoing chest pain of mild to moderate intensity currently, similar to earlier this evening. She denies any shortness of breath. Denies any other acute concerns. Will be admitted for further management. [facility] Medical History Post-menopausal Wears contact lenses Anxiety [...] Morbid obesity with BMI of 45.0-49.9, adult Home Medications ???Medication ???Instructions ???Recorded ???Last Taken ???Type albuterol sulfate 90 mcg/actuation 1 puff inhalation Q4H PRN PRN 01/28/22 History aerosol inhaler (Ventolin HFA) Shortness Of Breath zolpidem 10 mg tablet (Ambien) 5 mg PO QHS PRN sleep 12/01/1302/18 History epinephrine 0.3 mg/0.3 mL 0.3 mg (0.3 mL) IJ X1 PRN 02/03/19 Unknown Rx injection, auto-injector Anaphylaxis ##1 atorvastatin 40 mg tablet 40 mg PO DAILY 02/03/21 10/04/24 H istory cetirizine 10 mg tablet 10 mg PO DAILY 02/03/21 10/04/24 H istory valsartan 320 mg tablet 320 mg PO QHS 03/07/23 10/04/24 Hi story metformin 1,000 mg tablet 1,000 mg PO BID 11/01/23 10/04/24 History paroxetine HCl 40 mg tablet 40 mg PO QDAY 11/01/23 10/04/24 Hi story insulin lispro 200 unit/mL (3 mL) 170 unit (0.85 mL) subcut ONCE Unknown Rx subcutaneous pen (Humalog AlyssaPen #76.5 mL U-200 Insulin) levothyroxine 125 mcg tablet 125 mcg PO QDAY #90 tabs 05/02/24 10/04/24 Rx empagliflozin 25 mg tablet 25 mg PO QDAY #90 tabs 06/10/24 Rx (Jardiance) finerenone 10 mg tablet (Kerendia) 10 mg PO DAILY 10/05/24 Unknown History pantoprazole 40 mg tablet,delayed 40 mg PO DAILY 10/05/24 10/05/24 History release polysaccharide iron complex 150 mg 150 mg PO DAILY 10/05/24 5 History iron capsule (Ferrex) sulfamethoxazole 800 1 tab PO QHS 10/05/24 10/04/24 His tory mg-trimethoprim 160 mg tablet Allergy/AdvReac Type Severity Reaction Status Date / Time nut - unspecified Allergy Anaphylaxis Verified 10/05/24 19:16 peanut Allergy Anaphylaxis Verified 10/05/24 19:16 shellfish derived Allergy Anaphylaxis Verified 10/05/24 19:16 codeine AdvReac Rash Verified 10/05/24 19:16 prednisone AdvReac Other Verified 10/05/24 19:16 sertraline HCl (From Zoloft) AdvReac Other Verified 10/05/24 19:16 Family History Other Alcohol abuse Anxiety Arthritis Asthma Bleeding disorder Bowel disease Depression Diabetes Hypertension Severe allergy Surgical History History of endometrial ablation History of removal of ovarian cyst History of cholecystectomy Social History (Reviewed 05/02/24 @ 13:0 (more content not included)... Normal [facility] Hematocrit Auto (Bld) [Volum e fraction]Ordered By: Anton Thacker on 10-05-2024 Hematocrit (Bld) [Volume fraction] 34.7 % Low 37-47 [facility] Hemoglobin A1con 10-05-2024 HbA1c (Bld) [Mass fraction] 6.0 % High <=5.6 [facility] Comment on above: Result Comment: Norm al < 5.7 % Prediabetic 5.7 - 6.4 % Diabetic >or= 6.5 % Please note range changes. Performed By: #### L 500.2500 #### [facility] [address] [place], [address] Hemoglobin A1c percentageOrd ered By: Junior dany on 10-05-2024 HbA1c (Bld) [Mass fraction] 6.0 % High <5.7 [facility] Comment on above: Normal < 5.7 % Predi abetic 5.7 - 6.4 % Diabetic >or= 6.5 % Please note range changes. Hemoglobin measurementOrdere d By: Anton Thacker on 10-05-2024 Hemoglobin (Bld) [Mass/Vol] 10.9 g/dL Low 12.0-15.0 [facility] Immature granulocytes/100 WB C Auto (Bld)Ordered By: Anton Thacker on 10-05-2024 Immature granulocytes/100 WBC (Bld) 0.200 % 0.0-0.9 [facility] Comment on above: IG% - Immature Granu locytes (promyelocytes, myelocytes and metamyelocytes) > 1% indicates that a LEFT SHIFT is Present. L499.0042on 10-05-2024 Trop T High Sen 22 ng/L High <=14 [facility] Comment on above: Performed By: #### L 500.2500 #### [facility] [address] [place], [address] L501.4021on 10-05-2024 Trop T High Sen 21 ng/L High <=14 [facility] Comment on above: Performed By: #### L 501.4021, L501.5200 #### [facility] [address] [place], [address] MCV (mean corpuscular volume ) determinationOrdered By: Anton Thacker on 10-05-2024 MCV (RBC) [Entitic vol] 76.1 fL Low 81-99 [facility] Mean corpuscular hemoglobin (MCH) determinationOrdered By: Remus Thacker on 10-05-2024 MCH (RBC) [Entitic mass] 23.9 pg Low 27.0-32.0 [facility] Mean corpuscular hemoglobin concentration (MCHC) determinationOrdered By: Anton Thacker on 10-05-2024 MCHC (RBC) [Mass/Vol] 31.4 g/dL Low 32-36 [facility] Mean platelet volume determi nationOrdered By: Anton Thacker on 10-05-2024 Platelet mean volume (Bld) [Entitic vol] 9.7 fL 6.2-12.0 [facility] Monocyte percentageOrdered B y: Anton Thacker on 10-05-2024 Monocytes/100 WBC (Bld) 9.5 % 0-10 [facility] Neutrophil percentageOrdered By: Anton Thacker on 10-05-2024 Neutrophils/100 WBC (Bld) 51.7 % 47-70 [facility] Nucleated red blood cell per centageOrdered By: Anton Thacker on 10-05-2024 Nucleated RBC/100 WBC (Bld) [Ratio] 0 % 0-5 [facility] Platelet countOrdered By: Arabella Thacker on 10-05-2024 Platelets (Bld) [#/Vol] 276 10*3/uL 150-450 [facility] Potassium measurement (mass/ volume)Ordered By: Anton Thacker on 10-05-2024 Potassium (Unsp spec) [Mass/Vol] 4.8 mmol/L 3.3-5.1 [facility] RBC Auto (Bld) [#/Vol]Ordere d By: Anton Thacker on 10-05-2024 RBC (Bld) [#/Vol] 4.56 10*6/uL 4.2-5.4 [facility] Serum creatinine measurement (mass/volume)Ordered By: Anton Thacker on 10-05-2024 Creatinine [Mass/Vol] 1.37 mg/dL High 0.70-1.20 [facility] Serum glucose measurement (m ass/volume)Ordered By: Anton Thacker on 10-05-2024 Glucose [Mass/Vol] 103 mg/dL High 70-[address] [facility] Serum or plasma calcium thiago urement (mass/volume)Ordered By: Anton Thacker on 10-05-2024 Calcium [Mass/Vol] 10.2 mg/dL 7.6-11.[address] [facility] Serum or plasma urea nitroge n measurement (mass/volume)Ordered By: Anton Kirstie on 10-05-2024 Urea nitrogen [Mass/Vol] 29 mg/dL High 4-19 [facility] Sodium levelOrdered By: Mallorie s Kirstie on 10-05-2024 Sodium [Moles/Vol] 140 mmol/L 133-[address] [facility] Troponin T.cardiac [Mass/vol ume] in Serum or Plasma by High sensitivity methodOrdered By: Anton Kirstie on 10-05-2024 Troponin T.cardiac High sensitivity method [Mass/Vol] 34 ng/L High <14 [facility] Troponin T.cardiac High sensitivity method [Mass/Vol] 22 ng/L High <14 [facility] Troponin T.cardiac High sensitivity method [Mass/Vol] 21 ng/L High <14 [facility] White blood cell (WBC) count Ordered By: Juliet Kirstie on 10-05-2024 WBC (Bld) [#/Vol] 9.5 10*3/uL 4.4-11.[address] [facility] Absolute lymphocyte countOrd ered By: Phu Espinoza on 07-03-2024 Lymphocytes Auto (Unsp spec) [#/Vol] 2.19 10*3/uL 0.83-4.51 [facility] Absolute neutrophil countOrd ered By: Phu Espinoza on 07-03-2024 Neutrophils (Bld) [#/Vol] 4.9 10*3/uL 2.0-7.7 [facility] Anion gap in Serum or Plasma Ordered By: Phu Espinoza on 07-03-2024 Anion gap [Moles/Vol] 12 mmol/L 5-15 [facility] Automated lymphocyte count a s percentage of total leukocytesOrdered By: Phu Espinoza on 07-03-2024 Lymphocytes/100 WBC Auto (Unsp spec) 26.7 % 19-41 [facility] BUN/creatinine ratioOrdered By: Phu Espinoza on 07-03-2024 Urea nitrogen/Creatinine [Mass ratio] 19.0 mg/mg 10-20 [facility] Basophil percentageOrdered B y: Phu Espinoza on 07-03-2024 Basophils/100 WBC (Bld) 1.0 % 0-1 [facility] Bilirubin, totalOrdered By: Phu Espinoza on 07-03-2024 Bilirubin [Mass/Vol] 0.41 mg/dL 0.00-1.30 [facility] CBC W/Diff, Automatedon Absolute Lymph 2.19 X10 3/uL Normal 0.83-4.51 [facility] Comment on above: Performed By: #### L 501.4021, L501.5200 #### [facility] [address] [place], [address] Absolute Neut 4.9 X10 3/uL Normal 2.0-7.7 [facility] Comment on above: Performed By: #### L 501.4021, L501.5200 #### [facility] [address] [place], [address] Basophils/100 WBC (Bld) 1.0 % Normal 0-1 [facility] Comment on above: Performed By: #### L 501.4021, L501.5200 #### [facility] [address] [place], [address] Eosinophils/100 WBC (Bld) 1.8 % Normal 0-5 [facility] Comment on above: Performed By: #### L 501.4021, L501.5200 #### [facility] [address] [place], [address] Erythrocyte distribution width (RBC) [Ratio] 15.5 % High 11.6-14.6 [facility] Comment on above: Performed By: #### L 501.4021, L501.5200 #### [facility] [address] [place], [address] Hematocrit (Bld) [Volume fraction] 35.7 % Low 37-47 [facility] Comment on above: Performed By: #### L 501.4021, L501.5200 #### [facility] [address] [place], [address] Hemoglobin (Bld) [Mass/Vol] 10.8 g/dL Low 12.0-15.0 [facility] Comment on above: Performed By: #### L 501.4021, L501.5200 #### [facility] [address] [place], [address] IG% 0.500 Normal 0.0-0.9 [facility] Comment on above: Result Comment: IG% - Immature Granulocytes (promyelocytes, myelocytes and metamyelocytes) > 1% indicates that a LEFT SHIFT is Present. Performed By: #### L 501.4021, L501.5200 #### [facility] [address] [place], [address] Lymphocytes/100 WBC (Bld) 26.7 % Normal 19-41 [facility] Comment on above: Performed By: #### L 501.4021, L501.5200 #### [facility] [address] [place], [address] MCH (RBC) [Entitic mass] 24.2 pg Low 27.0-32.0 [facility] Comment on above: Performed By: #### L 501.4021, L501.5200 #### [facility] [address] [place], [address] MCHC (RBC) [Mass/Vol] 30.3 g/dL Low 32-36 [facility] Comment on above: Performed By: #### L 501.4021, L501.5200 #### [facility] [address] [place], [address] MCV (RBC) [Entitic vol] 80.0 fL Low 81-99 [facility] Comment on above: Performed By: #### L 501.4021, L501.5200 #### [facility] [address] [place], [address] Monocytes/100 WBC (Bld) 9.9 % Normal 0-10 [facility] Comment on above: Performed By: #### L 501.4021, L501.5200 #### [facility] [address] [place], [address] Neutrophils/100 WBC (Bld) 60.1 % Normal 47-70 [facility] Comment on above: Performed By: #### L 501.4021, L501.5200 #### [facility] [address] [place], [address] Nucleated RBC (Bld) [#/Vol] 0 10*3/uL Normal 0-5 [facility] Comment on above: Performed By: #### L 501.4021, L501.5200 #### [facility] [address] [place], [address] Platelet mean volume (Bld) [Entitic vol] 9.8 fL Normal 6.2-12.0 [facility] Comment on above: Performed By: #### L 501.4021, L501.5200 #### [facility] [address] [place], [address] Platelets (Bld) [#/Vol] 282 10*3/uL Normal 150-450 [facility] Comment on above: Performed By: #### L 501.4021, L501.5200 #### [facility] [address] [place], [address] RBC (Bld) [#/Vol] 4.46 10*6/uL Normal 4.2-5.4 [facility] Comment on above: Performed By: #### L 501.4021, L501.5200 #### [facility] [address] [place], [address] RDW SD 44.4 fl High 35.1-43.9 [facility] Comment on above: Performed By: #### L 501.4021, L501.5200 #### [facility] [address] [place], [address] WBC (Bld) [#/Vol] 8.2 10*3/uL Normal 4.4-11.[address] [facility] Comment on above: Performed By: #### L 501.4021, L501.5200 #### [facility] [address] [place], [address] Carbon dioxide, total [Moles /volume] in Central venous bloodOrdered By: Phu Espinoza on 07-03-2024 CO2 [Moles/Vol] 28.2 mmol/L 21.0-32.0 [facility] Chloride assayOrdered By: Sloan Espinoza on 07-03-2024 Chloride [Moles/Vol] 102 mmol/L 98-108 [facility] Comprehensive Metabolic Prof ilon 07-03-2024 Albumin [Mass/Vol] 4.2 g/dL Normal 3.5-5.[address] [facility] Comment on above: Performed By: #### L 501.4021, L501.5200 #### [facility] [address] [place], [address] Albumin/Globulin [Mass ratio] 1.5 {ratio} Normal 0.9-2.4 [facility] Comment on above: Performed By: #### L 501.4021, L501.5200 #### [facility] [address] [place], [address] ALK PHOS 50 U/L Normal 35-104 [facility] Comment on above: Performed By: #### L 501.4021, L501.5200 #### [facility] [address] [place], [address] ALT [Catalytic activity/Vol] 62 U/L High <=34 [facility] Comment on above: Performed By: #### L 501.4021, L501.5200 #### [facility] [address] [place], [address] AST [Catalytic activity/Vol] 67 U/L High <=31 [facility] Comment on above: Performed By: #### L 501.4021, L501.5200 #### [facility] [address] [place], [address] Bilirubin [Mass/Vol] 0.41 mg/dL Normal 0.00-1.30 [facility] Comment on above: Performed By: #### L 501.4021, L501.5200 #### [facility] [address] [place], [address] BUN/CRE 19.0 RATIO Normal 10-20 [facility] Comment on above: Performed By: #### L 501.4021, L501.5200 #### [facility] [address] [place], [address] Calcium [Mass/Vol] 9.4 mg/dL Normal 7.6-11.[address] [facility] Comment on above: Performed By: #### L 501.4021, L501.5200 #### [facility] [address] [place], [address] Chloride [Moles/Vol] 102 mmol/L Normal 98-108 [facility] Comment on above: Performed By: #### L 501.4021, L501.5200 #### [facility] [address] [place], [address] CO2 [Moles/Vol] 28.2 mmol/L Normal 21.0-32.0 [facility] Comment on above: Performed By: #### L 501.4021, L501.5200 #### [facility] [address] [place], [address] Creatinine [Mass/Vol] 1.00 mg/dL Normal 0.70-1.20 [facility] Comment on above: Performed By: #### L 501.4021, L501.5200 #### [facility] [address] [place], [address] GAP 12 Normal 5-15 [facility] Comment on above: Performed By: #### L 501.4021, L501.5200 #### [facility] [address] [place], [address] GFR/1.73 sq M.predicted among non-blacks MDRD (S/P/Bld) [Vol rate/Area] 67 mL/min/{1.73_m2} Normal >60 [facility] Comment on above: Result Comment: mL/m in/1.73m2 CKD-EPI Creatinine Equation (2020) Performed By: #### L 501.4021, L501.5200 #### [facility] [address] [place], [address] Globulin (S) [Mass/Vol] 2.8 g/dL Normal 2.2-4.2 [facility] Comment on above: Performed By: #### L 501.4021, L501.5200 #### [facility] [address] [place], [address] Glucose [Mass/Vol] 133 mg/dL High 70-[address] [facility] Comment on above: Performed By: #### L 501.4021, L501.5200 #### [facility] [address] [place], [address] Potassium [Moles/Vol] 4.3 mmol/L Normal 3.3-5.1 [facility] Comment on above: Performed By: #### L 501.4021, L501.5200 #### [facility] [address] [place], [address] Sodium [Moles/Vol] 142 mmol/L Normal 133-[address] [facility] Comment on above: Performed By: #### L 501.4021, L501.5200 #### [facility] [address] [place], [place], [address] T PROT 7.0 g/dL Normal 5.9-8.4 [facility] Comment on above: Performed By: #### L 501.4021, L501.5200 #### [facility] [address] [place], [address] Urea nitrogen [Mass/Vol] 19 mg/dL Normal 4-19 [facility] Comment on above: Performed By: #### L 501.4021, L501.5200 #### [facility] [address] [place], [place], [address] Eosinophil percentageOrdered By: Phu Espinoza on 07-03-2024 Eosinophils/100 WBC (Bld) 1.8 % 0-5 [facility] Erythrocyte distribution wid th (RBC) [Ratio]Ordered By: Phu Espinoza on 07-03-2024 Erythrocyte distribution width (RBC) [Entitic vol] 44.4 fL High 35.1-43.9 [facility] Erythrocyte distribution wid th ratioOrdered By: Phu Espinoza on 07-03-2024 Erythrocyte distribution width (RBC) [Ratio] 15.5 % High 11.6-14.6 [facility] Erythrocyte distribution wid th standard deviationOrdered By: Phu Espinoza on 07-03-2024 Erythrocyte distribution width (RBC) [Ratio] 44.4 fl High 35.1-43.9 [facility] GFR/1.73 sq M.predicted sanchez g non-blacks MDRD (S/P/Bld) [Vol rate/Area]Ordered By: Phu Espinoza on 07-03-2024 Estimated GFR (MDRD) Non-Af Amer 67 >60 [facility] Comment on above: mL/min/1.73m2 CKD-EP I Creatinine Equation (2020) Glomerular filtration rate ( GFR) estimation/1.73 sq m using serum, plasma, or whole bOrdered By: Phu Espinoza on 07-03-2024 GFR/1.73 sq M.predicted among non-blacks MDRD (S/P/Bld) [Vol rate/Area] 67 mL/min/{1.73_m2} >60 [facility] Comment on above: mL/min/1.73m2 CKD-EP I Creatinine Equation (2020) Hematocrit Auto (Bld) [Volum e fraction]Ordered By: Phu Espinoza on 07-03-2024 Hematocrit (Bld) [Volume fraction] 35.7 % Low 37-47 [facility] Hemoglobin measurementOrdere d By: Phu Espinoza on 07-03-2024 Hemoglobin (Bld) [Mass/Vol] 10.8 g/dL Low 12.0-15.0 [facility] Immature granulocytes/100 WB C Auto (Bld)Ordered By: Phu Espinoza 07-03-2024 Immature granulocytes/100 WBC (Bld) 0.500 % 0.0-0.9 [facility] Comment on above: IG% - Immature Granu locytes (promyelocytes, myelocytes and metamyelocytes) > 1% indicates that a LEFT SHIFT is Present. Laboratory - Chemistry and C hemistry - challengeOrdered By: Phu Espinoza on 07-03-2024 AST [Catalytic activity/Vol] 67 U/L High <32 [facility] Lymphocytes Auto (Unsp spec) [#/Vol]Ordered By: Phu Espinoza 07-03-2024 Lymphocytes (Bld) [#/Vol] 2.19 10*3/uL 0.83-4.51 [facility] Lymphocytes/100 WBC Auto (Un sp spec)Ordered By: Phu Espinoza 07-03-2024 Lymphocytes/100 WBC (Bld) 26.7 % 19-41 [facility] MCV (mean corpuscular volume ) determinationOrdered By: Phu Espinoza 07-03-2024 MCV (RBC) [Entitic vol] 80.0 fL Low 81-99 [facility] Mean corpuscular hemoglobin (MCH) determinationOrdered By: Phu Espinoza 07-03-2024 MCH (RBC) [Entitic mass] 24.2 pg Low 27.0-32.0 [facility] Mean corpuscular hemoglobin concentration (MCHC) determinationOrdered By: Phu Espinoza 07-03-2024 MCHC (RBC) [Mass/Vol] 30.3 g/dL Low 32-36 [facility] Mean platelet volume determi nationOrdered By: Phu Espinoza on 07-03-2024 Platelet mean volume (Bld) [Entitic vol] 9.8 fL 6.2-12.0 [facility] Monocyte percentageOrdered B y: Phu Espinoza on 07-03-2024 Monocytes/100 WBC (Bld) 9.9 % 0-10 [facility] Neutrophil percentageOrdered By: Phu Espinoza on 07-03-2024 Neutrophils/100 WBC (Bld) 60.1 % 47-70 [facility] Nucleated red blood cell per centageOrdered By: Phu Espinoza on 07-03-2024 Nucleated RBC/100 WBC (Bld) [Ratio] 0 % 0-5 [facility] Platelet countOrdered By: Sloan Espinoza on 07-03-2024 Platelets (Bld) [#/Vol] 282 10*3/uL 150-450 [facility] Potassium (Unsp spec) [Mass/ Vol]Ordered By: Phu Espinoza on 07-03-2024 Potassium [Moles/Vol] 4.3 mmol/L 3.3-5.1 [facility] Potassium measurement (mass/ volume)Ordered By: Phu Espinoza on 07-03-2024 Potassium (Unsp spec) [Mass/Vol] 4.3 mmol/L 3.3-5.1 [facility] RBC Auto (Bld) [#/Vol]Ordere d By: Phu Espinoza on 07-03-2024 RBC (Bld) [#/Vol] 4.46 10*6/uL 4.2-5.4 [facility] Serum creatinine measurement (mass/volume)Ordered By: Phu Espinoza on 07-03-2024 Creatinine [Mass/Vol] 1.00 mg/dL 0.70-1.20 [facility] Serum globulin measurementOr dered By: Phu Espinoza 07-03-2024 Globulin (S) [Mass/Vol] 2.8 g/dL 2.2-4.2 [facility] Serum glucose measurement (m ass/volume)Ordered By: Phu Espinoza on 07-03-2024 Glucose [Mass/Vol] 133 mg/dL High 70-[address] [facility] Serum or plasma alanine tobar otransferase (ALT) measurementOrdered By: Phu Espinoza on 07-03-2024 ALT [Catalytic activity/Vol] 62 U/L High <35 [facility] Serum or plasma albumin thiago urement (mass/volume)Ordered By: Phu Espinoza on 07-03-2024 Albumin [Mass/Vol] 4.2 g/dL 3.5-5.[address] [facility] Serum or plasma albumin/glob ulin mass ratioOrdered By: Phu Espinoza on 07-03-2024 Albumin/Globulin [Mass ratio] 1.5 {ratio} 0.9-2.4 [facility] Serum or plasma alkaline meg sphatase measurementOrdered By: Phu Espinoza 07-03-2024 ALP [Catalytic activity/Vol] 50 U/L 35-104 [facility] Serum or plasma calcium thiago urement (mass/volume)Ordered By: Phu Espinoza on 07-03-2024 Calcium [Mass/Vol] 9.4 mg/dL 7.6-11.[address] [facility] Serum or plasma urea nitroge n measurement (mass/volume)Ordered By: Phu Espinoza on 07-03-2024 Urea nitrogen [Mass/Vol] 19 mg/dL 4-19 [facility] Sodium levelOrdered By: Phu Espinoza on 07-03-2024 Sodium [Moles/Vol] 142 mmol/L 133-[address] [facility] TSH DL <= 0.005 mIU/L QnOrde red By: Phu Espinoza on 07-03-2024 Thyroid Stimulating Hormone (TSH) 0.593 uIU/mL 0.300-4.200 [facility] TSH Qn 0.593 uIU/mL 0.300-4.200 [facility] Thyroid Stim Hormone (TSH)on 07-03-2024 TSH 0.593 uIU/mL Normal 0.300-4.200 [facility] Comment on above: Performed By: #### L 501.4021, L501.5200 #### [facility] [address] [place], [place], [id number] Total proteinOrdered By: Phu Espinoza on 07-03-2024 Protein [Mass/Vol] 7.0 g/dL 5.9-8.[address] [facility] White blood cell (WBC) count Ordered By: Phu Espinoza on 07-03-2024 WBC (Bld) [#/Vol] 8.2 10*3/uL 4.4-11.[address] [facility] Direct serum free thyroxine (FT4) measurementOrdered By: Massiel Gibbons on 05-02-2024 Free T4 [Mass/Vol] 1.05 ng/dL 0.76-1.[address] [facility] Endocrinology Visit Reporton 05-02-2024 Endocrinology Visit Report [facility] [address] [place] [address] OFFICE VISIT Date of Service: 05/02/24 MR#: [id number] Acct: [id number] Name: ARLEN NGUYEN Rep #: [id number] : 1970 Provider: ADELITA martin Age/Sex: 54/F Location[place] [facility] [place] Status: Signed Intake Vital Signs 01/31/24 11:40 [...] acute concerns (more content not included)... Normal [facility] - Hematology and Cell countsOrdered By: Massiel Gibbons on 05-02-2024 HbA1c (Bld) [Mass fraction] 6.7 % High 4.2-6.3 [facility] T4 Free Directon 05-02-2024 T4 FREE DIRECT 1.05 ng/dL Normal 0.76-1.46 [facility] Comment on above: Performed By: #### L 500.8184 #### [facility] [address] [place], [address] TSH QnOrdered By: Massiel martin on 05-02-2024 Thyroid Stimulating Hormone (TSH) 2.130 uIU/mL 0.358-3.740 [facility] Thyroid Stim Hormone (TSH)on 05-02-2024 TSH 2.130 uIU/mL Normal 0.358-3.740 [facility] Comment on above: Performed By: #### L 500.2500 #### [facility] [address] [place], [address] Abdomen without IV Contrasto n 04-19-2024 Abdomen without IV Contrast [facility] Imaging Services [address] [place] [address] Abdomen without IV Contrast MR#: [id number] Acct: [id number] Name: ARLEN NGUYEN Rep #: [id number] : 1970 F 54 From: Roverto Andujar PCP: Dr. Phu Espinoza MD Status: REG CLI Study: Abdomen without IV Contrast Date of Exam: 03/28 07/19 Exam# [id number] Ordering Dr: Jodi Agee MD [id number] STUDY: CT Abdomen W/O Contrast Injection 04/21/2024 [...] Electronically Signed: Roverto Beebe MD at 16:01 EST Reading Location ID and State: [facility] / [place] , Service support , CC: Dr. Phu Espinoza MD; Dr. Jodi Agee MD Dehydrogenation Converter Operator: Signed Normal [facility] Surgery Visit Reporton 03-22 Surgery Visit Report [facility] [address] [place] [address]. [address] [place] [address] OFFICE VISIT Date of Service: 03/22/24 MR#: [id number] Acct: [id number] Name: ARLEN NGUYEN Rep #: [id number] : 1970 Provider: Dr. Jodi back MD Age/Sex: 53/F Location: [facility] Status: Signed Intake Vital Signs 01/31/24 [...] her umbilicus. Patient did have a previous ???vertical inferior midline???near this site as well as [...] atrial fi (more content not included)... Normal [facility] Chest PA and Lateralon 03-04 Chest PA and Lateral [facility] Imaging Services [address] [place] [address] Chest PA and Lateral MR#: [id number] Acct: [id number] Name: ARLEN NGUYEN Rep #: [id number] : 1970 F 53 From: Eduard Andujar PCP: Dr. Phu Espinoza MD Status: [facility] Study: Chest PA and Lateral Date of Exam: 03/04/24 Exam# [id number] Ordering Dr: Phu Espinoza MD [id number] INDICATION: WHEEZING EXAMINATION/TECHNIQU E: X-RAY - XR Chest 2 Views COMPARISON: Prior study dated: 03/03/2021 ____ FINDINGS: LINES/DEVICES: None. LUNGS: No consolidation, edema or effusion. No pneumothorax. MEDIASTINUM AND CARDIOVASCULAR STRUCTURES: Cardiac silhouette not enlarged. Central airways and mediastinal contour are unremarkable. BONES AND SOFT TISSUES: No acute osseous changes. RAD/Chest PA and Lateral IMPRESSION: No radiographic evidence of acute cardiopulmonary disease. Electronically Signed: Eduard Berrios MD at 20:04 EST , CC: Dr. Phu Espinoza MD Dehydrogenation Converter Operator: Signed Normal [facility] M100.678on 03-04-2024 M100.678 Pending SARS-CoV-2 (COVID 19) Negative INFLUENZA A Negative INFLUENZA B Negative RSV PCR Negative Normal [facility] Comment on above: Performed By: #### L 501.080 #### [facility] [address] [place], [address] T4 Free Directon 02-16-2024 T4 FREE DIRECT 1.01 ng/dL Normal 0.76-1.46 [facility] Comment on above: Performed By: #### L 501.4021, L501.5200 #### [facility] [address] [place], [address] Thyroid Stim Hormone (TSH)on 02-16-2024 TSH 2.020 uIU/mL Normal 0.358-3.740 [facility] Comment on above: Performed By: #### L 501.4021, L501.5200 #### [facility] [address] [place], [address] Endocrinology Visit Reporton 01-31-2024 Endocrinology Visit Report [facility] [address] [place], [place] [id number] OFFICE VISIT Date of Service: 01/31/24 MR#: [id number] Acct: [id number] Name: ARLEN NGUYEN Rep #: [id number] : 1970 Provider: ADELITA martin Age/Sex: 53/F Location: [facility] [place] Status: Signed Intake Vital Signs 11/01/23 11:43 [...] 5.7. Levothyroxine (more content not included)... Normal [facility] SCRN MAMM (CAD)W/PRESTON BILATo n 01-24-2024 SCRN MAMM (CAD)W/PRESTON BILAT [facility] Imaging Services [address] [place] [id number] SCRN MAMM (CAD)W/PRESTON BILAT MR#: [id number] Acct: [id number] Name: ARLEN NGUYEN Rep #: [id number] : 1970 F 53 From: Michel thurman MD PCP: Dr. Phu Espinoza MD Status: [facility] Study: SCRN MAMM (CAD)W/PRESTON BILAT Date of Exam: 12/27 Exam# [id number] Ordering Dr: Phu Espinoza MD [id number] MAMMOGRAPHY - BILATERAL SCREENING REASON FOR EXAM: [...] delay biopsy of a clinically suspicious abnormality. [id number] Electronically Signed: Michel Alfred MD at 9:52 EDT Reading Location ID and State: [facility] / [place] , Service support , CC: Dr. Phu Espinoza MD Dehydrogenation Converter Operator: Signed Normal [facility] CBC W/Diff, Automatedon 10-1 Absolute Lymph 2.48 X10 3/uL Normal 0.83-4.51 [facility] Comment on above: Performed By: #### L 501.4021, L501.5200 #### [facility] [address] [place], [address] Absolute Neut 4.4 X10 3/uL Normal 2.0-7.7 [facility] Comment on above: Performed By: #### L 501.4021, L501.5200 #### [facility] [address] [place], [address] Basophils/100 WBC (Bld) 0.6 % Normal 0-1 [facility] Comment on above: Performed By: #### L 501.4021, L501.5200 #### [facility] [address] [place], [address] Eosinophils/100 WBC (Bld) 2.4 % Normal 0-5 [facility] Comment on above: Performed By: #### L 501.4021, L501.5200 #### [facility] [address] [place], [address] Erythrocyte distribution width (RBC) [Ratio] 14.0 % Normal 11.6-14.6 [facility] Comment on above: Performed By: #### L 501.4021, L501.5200 #### [facility] [address] [place], [address] Hematocrit (Bld) [Volume fraction] 35.6 % Low 37-47 [facility] Comment on above: Performed By: #### L 501.4021, L501.5200 #### [facility] [address] [place], [address] Hemoglobin (Bld) [Mass/Vol] 11.0 g/dL Low 12.0-15.0 [facility] Comment on above: Performed By: #### L 501.4021, L501.5200 #### [facility] [address] [place], [address] IG% 0.400 Normal 0.0-0.9 [facility] Comment on above: Result Comment: IG% - Immature Granulocytes (promyelocytes, myelocytes and metamyelocytes) > 1% indicates that a LEFT SHIFT is Present. Performed By: #### L 501.4021, L501.5200 #### [facility] [address] [place], [address] Lymphocytes/100 WBC (Bld) 31.8 % Normal 19-41 [facility] Comment on above: Performed By: #### L 501.4021, L501.5200 #### [facility] [address] [place], [address] MCH (RBC) [Entitic mass] 25.3 pg Low 27.0-32.0 [facility] Comment on above: Performed By: #### L 501.4021, L501.5200 #### [facility] [address] [place], [address] MCHC (RBC) [Mass/Vol] 30.9 g/dL Low 32-36 [facility] Comment on above: Performed By: #### L 501.4021, L501.5200 #### [facility] [address] [place], [address] MCV (RBC) [Entitic vol] 82.0 fL Normal 81-99 [facility] Comment on above: Performed By: #### L 501.4021, L501.5200 #### [facility] [address] [place], [address] Monocytes/100 WBC (Bld) 8.8 % Normal 0-10 [facility] Comment on above: Performed By: #### L 501.4021, L501.5200 #### [facility] [address] [place], [address] Neutrophils/100 WBC (Bld) 56.0 % Normal 47-70 [facility] Comment on above: Performed By: #### L 501.4021, L501.5200 #### [facility] [address] [place], [address] Nucleated RBC (Bld) [#/Vol] 0 10*3/uL Normal 0-5 [facility] Comment on above: Performed By: #### L 501.4021, L501.5200 #### [facility] [address] [place], [address] Platelet mean volume (Bld) [Entitic vol] 9.9 fL Normal 6.2-12.0 [facility] Comment on above: Performed By: #### L 501.4021, L501.5200 #### [facility] [address] [place], [address] Platelets (Bld) [#/Vol] 256 10*3/uL Normal 150-450 [facility] Comment on above: Performed By: #### L 501.4021, L501.5200 #### [facility] [address] [place], [address] RBC (Bld) [#/Vol] 4.34 10*6/uL Normal 4.2-5.4 [facility] Comment on above: Performed By: #### L [id number], [id number] #### [facility] [address] [place], [address] RDW SD 41.4 fl Normal 35.1-43.9 [facility] Comment on above: Performed By: #### L [id number], [id number] #### [facility] [address] [place], [address] WBC (Bld) [#/Vol] 7.8 10*3/uL Normal 4.4-11.[address] [facility] Comment on above: Performed By: #### L [id number], [id number] #### [facility] [address] [place], [address] Comprehensive Metabolic Prof [facility] 01-10-2024 Albumin [Mass/Vol] 3.6 g/dL Normal 3.2-5.[address] [facility] Comment on above: Performed By: #### L [id number], [id number] #### [facility] [address] [place], [address] Albumin/Globulin [Mass ratio] 0.9 {ratio} Normal 0.9-2.4 [facility] Comment on above: Performed By: #### L [id number], [id number] #### [facility] [address] [place], [address] ALK P 66 U/L Normal 45-117 [facility] Comment on above: Performed By: #### L [id number], [id number] #### [facility] [address] [place], [address] ALT [Catalytic activity/Vol] 81 U/L High 13-56 [facility] Comment on above: Performed By: #### L [id number], [id number] #### [facility] [address] [place], [address] AST [Catalytic activity/Vol] 53 U/L High 15-37 [facility] Comment on above: Performed By: #### L [id number], [id number] #### [facility] [address] [place], [address] Bilirubin [Mass/Vol] 0.40 mg/dL Normal 0.20-1.00 [facility] Comment on above: Result Comment: For patients on eltrombopag therapy, use of Dimension [place] TBIL is not recommended. Performed By: #### L [id number], [id number] #### [facility] [address] [place], [address] BUN/CRE 21.7 RATIO High 10-20 [facility] Comment on above: Performed By: #### L [id number], [id number] #### [facility] [address] [place], [address] CA,Total 9.2 mg/dL Normal 8.5-10.1 [facility] Comment on above: Performed By: #### L [id number], [id number] #### [facility] [address] [place], [address] Chloride [Moles/Vol] 106 mmol/L Normal 98-107 [facility] Comment on above: Performed By: #### L [id number], [id number] #### [facility] [address] [place], [address] CO2 [Moles/Vol] 28.0 mmol/L Normal 21.0-32.0 [facility] Comment on above: Performed By: #### L [id number], [id number] #### [facility] [address] [place], [address] Creatinine [Mass/Vol] 0.97 mg/dL Normal 0.55-1.02 [facility] Comment on above: Result Comment: The validity of the calculated GFR GFRAA in patients over 70 years has not been determined. Clinical correlation is essential. Performed By: #### L [id number], [id number] #### [facility] [address] [place], [address] EST GFR - AA 77 mL/min Normal >60 [facility] Comment on above: Result Comment: Afri can Filipino GFR Calc Performed By: #### L [id number], [id number] #### [facility] [address] [place], [address] GAP 7 Normal 5-15 [facility] Comment on above: Performed By: #### L [id number], [id number] #### [facility] [address] [place], [address] GFR/1.73 sq M.predicted among non-blacks MDRD (S/P/Bld) [Vol rate/Area] 64 mL/min/{1.73_m2} Normal >60 [facility] Comment on above: Result Comment: Non- GFR Calc Performed By: #### L [id number], [id number] #### [facility] [address] [place], [address] Globulin (S) [Mass/Vol] 4.0 g/dL Normal 2.2-4.2 [facility] Comment on above: Performed By: #### L [id number], [id number] #### [facility] [address] [place], [address] Glucose [Mass/Vol] 162 mg/dL High 74-[address] [facility] Comment on above: Result Comment: Fast ing Glucose result greater than or equal to 126 mg/dL suggests DIABETES MELLITUS per A.D.A. criteria. Performed By: #### L [id number], [id number] #### [facility] [address] [place], [address] Potassium [Moles/Vol] 4.2 mmol/L Normal 3.5-5.1 [facility] Comment on above: Performed By: #### L [id number], [id number] #### [facility] [address] [place], [address] Sodium [Moles/Vol] 141 mmol/L Normal 136-[address] [facility] Comment on above: Performed By: #### L [id number], [id number] #### [facility] [address] [place], [address] T PROT 7.6 g/dL Normal 6.4-8.2 [facility] Comment on above: Performed By: #### L [id number], [id number] #### [facility] [address] [place], [address] Urea nitrogen [Mass/Vol] 21 mg/dL High 7-18 [facility] Comment on above: Performed By: #### L [id number], [id number] #### [facility] [address] [place], [place], [address] Thyroid Stim Hormone (TSH)on 01-10-2024 TSH 5.760 uIU/mL High 0.358-3.740 [facility] Comment on above: Performed By: #### L [id number], [id number] #### [facility] [address] [place], [place], [address] Endocrinology Visit Reporton 11-01-2023 Endocrinology Visit Report [facility] [address] [place], [place] [address] OFFICE VISIT Date of Service: 11/01/23 MR#: [id number] Acct: [id number] Name: ARLEN NGUYEN Rep #: [id number] : 1970 Provider: ADELITA martin Age/Sex: 53/F [place] [facility] [place] [facility] [place]: Signed Intake Vital Signs 08/03/23 10:59 [...] 3 M FU Chief Complaint: f/u diabetes Automation Lead Required: No Accompanied by: Self Is patient [...] 7.0%. Currently using T-slim insulin pump with [employer] G6 CGM- she is pleased with system; however, supplies are costly. Plan moving forward is to switch to M-Files 780g as she can get supplies at more affordable das. Additionally she is taking metformin 1 gm BID with food. She was previously on SGLT-2; however, it was unaffordable. BP today 132/84, improved from 08/03/23 at 1 (more content not included)... Normal [facility] Culture, urineOrdered By: Sloan Espinoza on 04-03-2023 Bacteria identified Cx Nom (U) Mixed Gram Pos & Gram Neg Org [facility] Bacteria identified Cx Nom (U) Mixed Gram Pos & Gram Neg Org [facility] Glucose Glucometer (BldC) [M ass/Vol]Ordered By: Jodi Agee on 03-13-2023 Glucose [Mass/Vol] 186 mg/dL 74-[address] [facility] Comment on above: MANAGEMENT OF PATIEN T CARE PER NURSING PROTOCOL Absolute lymphocyte countOrd ered By: Massiel Gibbons on 03-02-2023 Lymphocytes Auto (Unsp spec) [#/Vol] 2.72 10*3/uL 0.83-4.51 [facility] Basophil percentageOrdered B y: Massiel Gibbons on 03-02-2023 Basophils/100 WBC (Bld) 0.4 % 0-1 [facility] Cholesterol [Mass/Vol] 148 mg/dL <200 [facility] Comment on above: <200 mg/dL Desirable 200-240 mg/dL Borderline >240 mg/dL High Risk Eosinophils/100 WBC (Bld) 1.7 % 0-5 [facility] Neutrophils (Bld) [#/Vol] 3.6 10*3/uL 2.0-7.7 [facility] Neutrophils/100 WBC (Bld) 50.4 % 47-70 [facility] Triglyceride [Mass/Vol] 136 mg/dL <199 [facility] Comment on above: The drugs N-Acetylcy steine and Metamizole may falsely depress this assay.Serum Triglycerides Reference Interval Normal <150 mg/dL Borderline high 150 - 199 mg/dL High 200 - 499 mg/dL Very High > or = 500 mg/dL WBC (Bld) [#/Vol] 7.1 10*3/uL 4.4-11.[address] [facility] Blood erythrocytes count (nu mber/volume)Ordered By: Massiel Gibbons on 03-02-2023 RBC (Bld) [#/Vol] 4.22 10*6/uL 4.2-5.4 [facility] Blood hemoglobin measurement (mass/volume)Ordered By: Massiel Gibbons on 03-02-2023 Hemoglobin (Bld) [Mass/Vol] 11.0 g/dL 12.0-15.0 [facility] Blood lymphocytes/100 leukoc ytesOrdered By: Massiel Gibbons on 03-02-2023 Lymphocytes/100 WBC (Bld) 38.5 % 19-41 [facility] Blood monocytes/100 leukocyt esOrdered By: Massiel Gibbons on 03-02-2023 Monocytes/100 WBC (Bld) 8.6 % 0-10 [facility] Blood platelet mean volumeOr dered By: Massiel Gibbons on 03-02-2023 Platelet mean volume (Bld) [Entitic vol] 9.8 fL 6.2-12.0 [facility] Determination of erythrocyte mean corpuscular volume (MCV)Ordered By: Massiel Gibbons on 03-02-2023 MCV (RBC) [Entitic vol] 83.2 fL 81-99 [facility] Hematocrit Auto (Bld) [Volum e fraction]Ordered By: Massiel Gibbons on 03-02-2023 Hematocrit (Bld) [Volume fraction] 35.1 % 37-47 [facility] - Chemistry and C hemistry - challengeOrdered By: Massiel Gibbons on 03-02-2023 Free T4 [Mass/Vol] 0.83 ng/dL 0.76-1.[address] [facility] - Hematology and Cell countsOrdered By: Massiel Gibbons on 03-02-2023 Erythrocyte distribution width (RBC) [Entitic vol] 41.3 fL 35.1-43.9 [facility] Erythrocyte distribution width (RBC) [Ratio] 13.7 % 11.6-14.6 [facility] Immature granulocytes/100 WBC (Bld) 0.400 % 0.0-0.9 [facility] Comment on above: IG% - Immature Granu locytes (promyelocytes, myelocytes and metamyelocytes) > 1% indicates that a LEFT SHIFT is Present. MCH (RBC) [Entitic mass] 26.1 pg 27.0-32.0 [facility] Nucleated RBC/100 WBC (Bld) [Ratio] 0 % 0-5 [facility] - Hematology and Cell countson 03-02-2023 HbA1c (Bld) [Mass fraction] 7.3 % 4.2-6.3 [facility] MCHC Auto (RBC) [Mass/Vol]Or dered By: Massiel Gibbons on 03-02-2023 MCHC (RBC) [Mass/Vol] 31.3 g/dL 32-36 [facility] No Panel InformationOrdered By: Massiel Gibbons on 03-02-2023 Thyroid Stimulating Hormone (TSH) 2.85 uIU/mL 0.358-3.74 [facility] Platelets bldOrdered By: Griselda Gibbons on 03-02-2023 Platelets (Bld) [#/Vol] 284 10*3/uL 150-450 [facility] Serum or plasma cholesterol in HDL measurement (mass/volume)Ordered By: Massiel Gibbons on 03-02-2023 Cholesterol in HDL [Mass/Vol] 46 mg/dL >40 [facility] Comment on above: The drugs N-Acetylcy steine and Metamizole may falsely depress this assay. Reference Range HDL <40 mg/dL Low HDL Cholesterol HDL >or= 60 mg/dL High HDL Cholesterol Serum or plasma cholesterol in VLDL measurement (mass/volume)Ordered By: Massiel Gibbons on 03-02-2023 Cholesterol in VLDL [Mass/Vol] 27 mg/dL 5-40 [facility] Serum or plasma ferritin lizette surement (mass/volume)Ordered By: Massiel Gibbons on 03-02-2023 Ferritin [Mass/Vol] 23 ng/mL 8-252 [facility] Serum or plasma low density lipoprotein (LDL) cholesterol measurement (mass/volume)Ordered By: Massiel Gibbons on 03-02-2023 Cholesterol in LDL [Mass/Vol] 75 mg/dL 0-130 [facility] Blood hemoglobin measurement (mass/volume)Ordered By: Phu Espinoza on 02-08-2023 Hemoglobin (Bld) [Mass/Vol] 10.8 g/dL 12.0-15.0 [facility] Hematocrit Auto (Bld) [Volum e fraction]Ordered By: Phu Espinoza on 02-08-2023 Hematocrit (Bld) [Volume fraction] 33.9 % 37-47 [facility] Stool gastrointestinal hemog lobin detection by immunologic methodOrdered By: Phu Espinoza on 01-11-2023 Lower GI hemoglobin IA Ql (Stl) [facility] Lower GI hemoglobin IA Ql (Stl) [facility] Absolute lymphocyte countOrd ered By: Phu Espinoza on 01-09-2023 Lymphocytes Auto (Unsp spec) [#/Vol] 2.49 10*3/uL 0.83-4.51 [facility] Basophil percentageOrdered B y: Phu Espinoza on 01-09-2023 Basophils/100 WBC (Bld) 0.5 % 0-1 [facility] Eosinophils/100 WBC (Bld) 2.2 % 0-5 [facility] Neutrophils (Bld) [#/Vol] 4.3 10*3/uL 2.0-7.7 [facility] Neutrophils/100 WBC (Bld) 55.4 % 47-70 [facility] WBC (Bld) [#/Vol] 7.7 10*3/uL 4.4-11.[address] [facility] Blood erythrocytes count (nu mber/volume)Ordered By: Phu Espinoza on 01-09-2023 RBC (Bld) [#/Vol] 4.35 10*6/uL 4.2-5.4 [facility] Blood hemoglobin measurement (mass/volume)Ordered By: Phu Espinoza on 01-09-2023 Hemoglobin (Bld) [Mass/Vol] 11.4 g/dL 12.0-15.0 [facility] Blood lymphocytes/100 leukoc ytesOrdered By: Phu Espinoza on 01-09-2023 Lymphocytes/100 WBC (Bld) 32.5 % 19-41 [facility] Blood monocytes/100 leukocyt esOrdered By: Phu Espinoza on 01-09-2023 Monocytes/100 WBC (Bld) 8.9 % 0-10 [facility] Blood platelet mean volumeOr dered By: Phu Espinoza on 01-09-2023 Platelet mean volume (Bld) [Entitic vol] 10.3 fL 6.2-12.0 [facility] Determination of erythrocyte mean corpuscular volume (MCV)Ordered By: Phu Espinoza on 01-09-2023 MCV (RBC) [Entitic vol] 85.5 fL 81-99 [facility] Hematocrit Auto (Bld) [Volum e fraction]Ordered By: Phu Espinoza on 01-09-2023 Hematocrit (Bld) [Volume fraction] 37.2 % 37-47 [facility] Hemoglobin in reticulocytes (mass per reticulocyte)Ordered By: Phu Espinoza on 01-09-2023 Hemoglobin (Reticulocytes) [Entitic mass] 29.3 pg 30-35 [facility] Iron measurement (mass/mass) Ordered By: Phu Espinoza on 01-09-2023 Iron (Unsp spec) [Mass/Mass] 44 ug/dL 50-170 [facility] - Chemistry and C hemistry - challengeOrdered By: Phu Espinoza on 01-09-2023 Cobalamin (Vitamin B12) [Mass/Vol] 293 pg/mL 211-911 [facility] - Hematology and Cell countsOrdered By: Phu Espinoza on 01-09-2023 Erythrocyte distribution width (RBC) [Entitic vol] 41.7 fL 35.1-43.9 [facility] Erythrocyte distribution width (RBC) [Ratio] 13.3 % 11.6-14.6 [facility] Immature granulocytes/100 WBC (Bld) 0.500 % 0.0-0.9 [facility] Comment on above: IG% - Immature Granu locytes (promyelocytes, myelocytes and metamyelocytes) > 1% indicates that a LEFT SHIFT is Present. MCH (RBC) [Entitic mass] 26.2 pg 27.0-32.0 [facility] Nucleated RBC/100 WBC (Bld) [Ratio] 0 % 0-5 [facility] MCHC Auto (RBC) [Mass/Vol]Or dered By: Phu Espinoza on 01-09-2023 MCHC (RBC) [Mass/Vol] 30.6 g/dL 32-36 [facility] No Panel InformationOrdered By: Phu Espinoza on 01-09-2023 Immature Reticulocyte Fraction 27.90 % 3.00-15.90 [facility] Reticulocyte Count 2.36 % 0.5-1.[address] [facility] Total Iron Binding Capacity 482 ug/dL 250-450 [facility] Platelets bldOrdered By: Phu Espinoza on 01-09-2023 Platelets (Bld) [#/Vol] 271 10*3/uL 150-450 [facility] Serum or plasma ferritin lizette surement (mass/volume)Ordered By: Phu Espinoza on 01-09-2023 Ferritin [Mass/Vol] 18 ng/mL 8-252 [facility] Serum or plasma folate measu rement (mass/volume)Ordered By: Phu Espinoza on 01-09-2023 Folate [Mass/Vol] 13.00 ng/mL 3.1-55.[address] [facility] Serum or plasma iron saturat ion measurement (mass fraction)Ordered By: Phu Espinoza on 01-09-2023 Iron saturation [Mass fraction] 9.1 % 15.0-55.0 [facility] Absolute lymphocyte countOrd ered By: Phu Espinoza on 01-03-2023 Lymphocytes Auto (Unsp spec) [#/Vol] 2.77 10*3/uL 0.83-4.51 [facility] Basophil percentageOrdered B y: Phu Espinoza on 01-03-2023 Basophils/100 WBC (Bld) 0.5 % 0-1 [facility] Bilirubin [Mass/Vol] 0.30 mg/dL 0.20-1.00 [facility] Comment on above: For patients on eltr ombopag therapy, use of Dimension [place] TBIL is not recommended. Chloride [Moles/Vol] 105 mmol/L 98-107 [facility] Eosinophils/100 WBC (Bld) 1.4 % 0-5 [facility] Glucose [Mass/Vol] 137 mg/dL 74-[address] [facility] Comment on above: Fasting Glucose resu lt greater than or equal to 126 mg/dL suggests DIABETES MELLITUS per A.D.A. criteria. Neutrophils (Bld) [#/Vol] 4.1 10*3/uL 2.0-7.7 [facility] Neutrophils/100 WBC (Bld) 53.4 % 47-70 [facility] Potassium [Moles/Vol] 4.3 mmol/L 3.5-5.1 [facility] Protein [Mass/Vol] 7.5 g/dL 6.4-8.[address] [facility] Sodium [Moles/Vol] 140 mmol/L 136-[address] [facility] WBC (Bld) [#/Vol] 7.7 10*3/uL 4.4-11.[address] [facility] Blood erythrocytes count (nu mber/volume)Ordered By: Phu Espinoza on 01-03-2023 RBC (Bld) [#/Vol] 4.14 10*6/uL 4.2-5.4 [facility] Blood hemoglobin measurement (mass/volume)Ordered By: Phu Espinoza on 01-03-2023 Hemoglobin (Bld) [Mass/Vol] 10.8 g/dL 12.0-15.0 [facility] Blood lymphocytes/100 leukoc ytesOrdered By: Phu Espinoza on 01-03-2023 Lymphocytes/100 WBC (Bld) 36.0 % 19-41 [facility] Blood monocytes/100 leukocyt esOrdered By: Phu Espinoza on 01-03-2023 Monocytes/100 WBC (Bld) 8.3 % 0-10 [facility] Blood platelet mean volumeOr dered By: Phu Espinoza on 01-03-2023 Platelet mean volume (Bld) [Entitic vol] 10.2 fL 6.2-12.0 [facility] Determination of erythrocyte mean corpuscular volume (MCV)Ordered By: Phu Espinoza on 01-03-2023 MCV (RBC) [Entitic vol] 83.6 fL 81-99 [facility] Hematocrit Auto (Bld) [Volum e fraction]Or[facility] By: [facility] on 01-03-2023 Hematocrit (Bld) [Volume fraction] 34.6 % 37-47 [facility] - Chemistry and C hemistry - challengeOrdered By: [facility] on 01-03-2023 ALP [Catalytic activity/Vol] 50 U/L 45-117 [facility] ALT [Catalytic activity/Vol] 31 U/L 13-56 [facility] CO2 [Moles/Vol] 26.0 mmol/L 21.0-32.0 [facility] Globulin (S) [Mass/Vol] 3.8 g/dL 2.2-4.2 [facility] Urea nitrogen/Creatinine [Mass ratio] 17.8 mg/mg 10-20 [facility] - Hematology and Cell countsOrdered By: [facility] on 01-03-2023 Erythrocyte distribution width (RBC) [Entitic vol] 40.8 fL 35.1-43.9 [facility] Erythrocyte distribution width (RBC) [Ratio] 13.4 % 11.6-14.6 [facility] Immature granulocytes/100 WBC (Bld) 0.400 % 0.0-0.9 [facility] Comment on above: IG% - Immature Granu locytes (promyelocytes, myelocytes and metamyelocytes) > 1% indicates that a LEFT SHIFT is Present. MCH (RBC) [Entitic mass] 26.1 pg 27.0-32.0 [facility] Nucleated RBC/100 WBC (Bld) [Ratio] 0 % 0-5 [facility] MCHC Auto (RBC) [Mass/Vol]Or dered By: Phu Espinoza on 01-03-2023 MCHC (RBC) [Mass/Vol] 31.2 g/dL 32-36 [facility] No Panel InformationOrdered By: [facility] 01-03-2023 Estimated GFR (MDRD) Amer 62 mL/min >60 [facility] Comment on above: GFR Calc Estimated GFR (MDRD) Non-Af Amer 51 mL/min >60 [facility] Comment on above: Non- GFR Calc Thyroid Stimulating Hormone (TSH) 6.16 uIU/mL 0.358-3.74 [facility] Platelets bldOrdered By: Phu Espinoza on 01-03-2023 Platelets (Bld) [#/Vol] 261 10*3/uL 150-450 [facility] Serum or plasma albumin thiago urement (mass/volume)Ordered By: Phu Espinoza on 01-03-2023 Albumin [Mass/Vol] 3.7 g/dL 3.2-5.[address] [facility] Serum or plasma albumin/glob ulin mass ratioOrdered By: Phu Espinoza on 01-03-2023 Albumin/Globulin [Mass ratio] 1.0 {ratio} 0.9-2.4 [facility] Serum or plasma calcium thiago urement (mass/volume)Ordered By: Phu Espinoza on 01-03-2023 Calcium [Mass/Vol] 9.0 mg/dL 8.5-10.[address] [facility] Serum or plasma creatinine m easurement (mass/volume)Ordered By: Phu Espinoza on 01-03-2023 Creatinine [Mass/Vol] 1.18 mg/dL 0.55-1.02 [facility] Comment on above: The validity of the calculated GFR & GFRAA in patients over 70 years has not been determined. Clinical correlation is essential. Serum or plasma urea nitroge n measurement (mass/volume)Ordered By: Phu Espinoza on 01-03-2023 Urea nitrogen [Mass/Vol] 21 mg/dL 7-18 [facility] Thin prep Papanicolaou smear with manual screeningOrdered By: Phu Espinoza on 01-03-2023 Thin prep Papanicolaou smear with manual screening 30 U/L 15-37 [facility] Thin prep Papanicolaou smear with manual screening 9 5-15 [facility] - Hematology and Cell countson 11-17-2022 HbA1c (Bld) [Mass fraction] 7.1 % 4.2-6.3 [facility] Basophil percentageOrdered B y: Massiel Gibbons on 08-17-2022 Bilirubin [Mass/Vol] 0.70 mg/dL 0.20-1.00 [facility] Comment on above: For patients on eltr ombopag therapy, use of Dimension [place] TBIL is not recommended. Chloride [Moles/Vol] 105 mmol/L 98-107 [facility] Glucose [Mass/Vol] 167 mg/dL 74-[address] [facility] Comment on above: Fasting Glucose resu lt greater than or equal to 126 mg/dL suggests DIABETES MELLITUS per A.D.A. criteria. Potassium [Moles/Vol] 4.3 mmol/L 3.5-5.1 [facility] Protein [Mass/Vol] 8.1 g/dL 6.4-8.[address] [facility] Sodium [Moles/Vol] 138 mmol/L 136-[address] [facility] - Chemistry and C hemistry - challengeOrdered By: Massiel Gibbons on 08-17-2022 ALP [Catalytic activity/Vol] 54 U/L 45-117 [facility] ALT [Catalytic activity/Vol] 31 U/L 13-56 [facility] CO2 [Moles/Vol] 26.0 mmol/L 21.0-32.0 [facility] Globulin (S) [Mass/Vol] 4.2 g/dL 2.2-4.2 [facility] Urea nitrogen/Creatinine [Mass ratio] 25.2 mg/mg 10-20 [facility] No Panel InformationOrdered By: Massiel Gibbons on 08-17-2022 Estimated GFR (MDRD) Amer 72 mL/min >60 [facility] Comment on above: GFR Calc Estimated GFR (MDRD) Non-Af Amer 60 mL/min >60 [facility] Comment on above: Non- GFR Calc Thyroid Stimulating Hormone (TSH) 3.80 uIU/mL 0.358-3.74 [facility] Serum or plasma albumin thiago urement (mass/volume)Ordered By: Massiel Gibbons on 08-17-2022 Albumin [Mass/Vol] 3.9 g/dL 3.2-5.[address] [facility] Serum or plasma albumin/glob ulin mass ratioOrdered By: Massiel Gibbons on 08-17-2022 Albumin/Globulin [Mass ratio] 0.9 {ratio} 0.9-2.4 [facility] Serum or plasma calcium thiago urement (mass/volume)Ordered By: Massiel Gibbons on 08-17-2022 Calcium [Mass/Vol] 10.0 mg/dL 8.5-10.[address] [facility] Serum or plasma creatinine m easurement (mass/volume)Ordered By: Massiel Gibbons on 08-17-2022 Creatinine [Mass/Vol] 1.03 mg/dL 0.55-1.02 [facility] Comment on above: The validity of the calculated GFR & GFRAA in patients over 70 years has not been determined. Clinical correlation is essential. Serum or plasma urea nitroge n measurement (mass/volume)Ordered By: Massiel Gibbons on 08-17-2022 Urea nitrogen [Mass/Vol] 26 mg/dL 7-18 [facility] Thin prep Papanicolaou smear with manual screeningOrdered By: Massiel Gibbons on 08-17-2022 Thin prep Papanicolaou smear with manual screening 28 U/L 15-37 [facility] Thin prep Papanicolaou smear with manual screening 7 5-15 [facility] Absolute lymphocyte countOrd ered By: Dr. Espinoza on 06-28-2022 Lymphocytes Auto (Unsp spec) [#/Vol] 2.68 10*3/uL 0.83-4.51 [facility] Basophil percentageOrdered B y: Dr. Espinoza on 06-28-2022 Basophils/100 WBC (Bld) 0.7 % 0-1 [facility] Bilirubin [Mass/Vol] 0.30 mg/dL 0.20-1.00 [facility] Comment on above: For patients on eltr ombopag therapy, use of Dimension [place] TBIL is not recommended. Chloride [Moles/Vol] 107 mmol/L 98-107 [facility] Eosinophils/100 WBC (Bld) 2.4 % 0-5 [facility] Glucose [Mass/Vol] 138 mg/dL 74-[address] [facility] Comment on above: Fasting Glucose resu lt greater than or equal to 126 mg/dL suggests DIABETES MELLITUS per A.D.A. criteria. Neutrophils (Bld) [#/Vol] 3.8 10*3/uL 2.0-7.7 [facility] Neutrophils/100 WBC (Bld) 50.6 % 47-70 [facility] Potassium [Moles/Vol] 4.1 mmol/L 3.5-5.1 [facility] Protein [Mass/Vol] 8.0 g/dL 6.4-8.[address] [facility] Sodium [Moles/Vol] 139 mmol/L 136-[address] [facility] WBC (Bld) [#/Vol] 7.4 10*3/uL 4.4-11.[address] [facility] Blood erythrocytes count (nu mber/volume)Ordered By: Dr. Espinoza on 06-28-2022 RBC (Bld) [#/Vol] 4.33 10*6/uL 4.2-5.4 [facility] Blood hemoglobin measurement (mass/volume)Ordered By: Dr. Espinoza on 06-28-2022 Hemoglobin (Bld) [Mass/Vol] 11.4 g/dL 12.0-15.0 [facility] Blood lymphocytes/100 leukoc ytesOrdered By: Dr. Espinoza on 06-28-2022 Lymphocytes/100 WBC (Bld) 36.1 % 19-41 [facility] Blood monocytes/100 leukocyt esOrdered By: Dr. Espinoza on 06-28-2022 Monocytes/100 WBC (Bld) 9.8 % 0-10 [facility] Blood platelet mean volumeOr dered By: Dr. Espinoza on 06-28-2022 Platelet mean volume (Bld) [Entitic vol] 10.1 fL 6.2-12.0 [facility] Determination of erythrocyte mean corpuscular volume (MCV)Ordered By: Dr. Espinoza on 06-28-2022 MCV (RBC) [Entitic vol] 83.6 fL 81-99 [facility] Hematocrit Auto (Bld) [Volum e fraction]Ordered By: Dr. Espinoza on 06-28-2022 Hematocrit (Bld) [Volume fraction] 36.2 % 37-47 [facility] Laboratory - Chemistry and C hemistry - challengeOrdered By: Dr. Espinoza on 06-28-2022 ALP [Catalytic activity/Vol] 52 U/L 45-117 [facility] ALT [Catalytic activity/Vol] 29 U/L 13-56 [facility] CO2 [Moles/Vol] 28.0 mmol/L 21.0-32.0 [facility] Globulin (S) [Mass/Vol] 4.2 g/dL 2.2-4.2 [facility] Urea nitrogen/Creatinine [Mass ratio] 21.7 mg/mg 10-20 [facility] Laboratory - Hematology and Cell countsOrdered By: Dr. Espinoza on 06-28-2022 Erythrocyte distribution width (RBC) [Entitic vol] 43.9 fL 35.1-43.9 [facility] Erythrocyte distribution width (RBC) [Ratio] 14.4 % 11.6-14.6 [facility] Immature granulocytes/100 WBC (Bld) 0.400 % 0.0-0.9 [facility] Comment on above: IG% - Immature Granu locytes (promyelocytes, myelocytes and metamyelocytes) > 1% indicates that a LEFT SHIFT is Present. MCH (RBC) [Entitic mass] 26.3 pg 27.0-32.0 [facility] Nucleated RBC/100 WBC (Bld) [Ratio] 0 % 0-5 [facility] MCHC Auto (RBC) [Mass/Vol]Or dered By: Dr. Espinoza on 06-28-2022 MCHC (RBC) [Mass/Vol] 31.5 g/dL 32-36 [facility] No Panel InformationOrdered By: Dr. Espinoza on 06-28-2022 Estimated GFR (MDRD) Amer 56 mL/min >60 [facility] Comment on above: GFR Calc Estimated GFR (MDRD) Non-Af Amer 46 mL/min >60 [facility] Comment on above: Non- GFR Calc Thyroid Stimulating Hormone (TSH) 4.74 uIU/mL 0.358-3.74 [facility] Platelets bldOrdered By: Dr. Espinoza on 06-28-2022 Platelets (Bld) [#/Vol] 292 10*3/uL 150-450 [facility] Serum or plasma albumin thiago urement (mass/volume)Ordered By: Dr. Espinoza on 06-28-2022 Albumin [Mass/Vol] 3.8 g/dL 3.2-5.[address] [facility] Serum or plasma albumin/glob ulin mass ratioOrdered By: Dr. Espinoza on 06-28-2022 Albumin/Globulin [Mass ratio] 0.9 {ratio} 0.9-2.4 [facility] Serum or plasma calcium thiago urement (mass/volume)Ordered By: Dr. Espinoza on 06-28-2022 Calcium [Mass/Vol] 9.2 mg/dL 8.5-10.[address] [facility] Serum or plasma creatinine m easurement (mass/volume)Ordered By: Dr. Espinoza on 06-28-2022 Creatinine [Mass/Vol] 1.29 mg/dL 0.55-1.02 [facility] Comment on above: The validity of the calculated GFR & GFRAA in patients over 70 years has not been determined. Clinical correlation is essential. Serum or plasma urea nitroge n measurement (mass/volume)Ordered By: Dr. Espinoza on 06-28-2022 Urea nitrogen [Mass/Vol] 28 mg/dL 7-18 [facility] Thin prep Papanicolaou smear with manual screeningOrdered By: Dr. Espinoza on 06-28-2022 Thin prep Papanicolaou smear with manual screening 20 U/L 15 [facility] Thin prep Papanicolaou smear with manual screening 4 5-15 [facility] Laboratory - Hematology and Cell countson 05-11-2022 HbA1c (Bld) [Mass fraction] 7.6 % [facility] Basophil percentageon 2021 Bilirubin [Mass/Vol] 0.20 mg/dL 0.20-1.00 [facility] Work Phone: Comment on above: For patients on eltr ombopag therapy, use of [employer] [place] TBIL is not recommended. Chloride [Moles/Vol] 107 mmol/L 98-107 [facility] Work Phone: Glucose [Mass/Vol] 137 mg/dL 74-[address] [facility] Work Phone: Comment on above: Fasting Glucose resu lt greater than or equal to 126 mg/dL suggests DIABETES MELLITUS per A.D.A. criteria. Potassium [Moles/Vol] 3.5 mmol/L 3.5-5.1 [facility] Work Phone: Protein [Mass/Vol] 7.2 g/dL 6.4-8.[address] [facility] Work Phone: Sodium [Moles/Vol] 142 mmol/L 136-[address] [facility] Work Phone: Laboratory - Chemistry and C hemistry - challengeon 02-08-2022 ALP [Catalytic activity/Vol] 65 U/L 45-117 [facility] Work Phone: ALT [Catalytic activity/Vol] 45 U/L 13-56 [facility] Work Phone: [phone] CO2 [Moles/Vol] 26.0 mmol/L 21.0-32.0 [facility] Work Phone: Globulin (S) [Mass/Vol] 3.8 g/dL 2.2-4.2 [facility] Work Phone: Urea nitrogen/Creatinine [Mass ratio] 13.8 mg/mg 10-20 [facility] Work Phone: No Panel Informationon 02-08 Estimated GFR (MDRD) Amer 88 mL/min >60 [facility] Work Phone: Comment on above: GFR Calc Estimated GFR (MDRD) Non-Af Amer 73 mL/min >60 [facility] Work Phone: Comment on above: Non- GFR Calc Hepatitis A IgM Antibody Negative Negative [facility] Work Phone: [phone] Hepatitis B Core IgM Antibody Negative Negative [facility] Work Phone: [phone] Hepatitis C Antibody (EIA) 0.1 s/co ratio 0.0-0.9 [facility] Work Phone: Hepatitis C Antibody Comment Comment . [facility] Work Phone: Comment on above: NegativeNot infected with HCV, unless recent infection issuspected or other evidence exists to indicate HCVinfection.Performed at: [facility] [id number] Director: Spencer Carbajal PhD, Phone: [phone] Serum or plasma albumin thiago urement (mass/volume)on 02-08-2022 Albumin [Mass/Vol] 3.4 g/dL 3.2-5.[address] [facility] Work Phone: [phone] Serum or plasma albumin/glob ulin mass ratioon 02-08-2022 Albumin/Globulin [Mass ratio] 0.9 {ratio} 0.9-2.4 [facility] Work Phone: [phone] Serum or plasma calcium thiago urement (mass/volume)on 02-08-2022 Calcium [Mass/Vol] 8.0 mg/dL 8.5-10.[address] [facility] Work Phone: [phone] Serum or plasma creatinine m easurement (mass/volume)on 02-08-2022 Creatinine [Mass/Vol] 0.87 mg/dL 0.55-1.02 [facility] Work Phone: Comment on above: The validity of the calculated GFR & GFRAA in patients over 70 years has not been determined. Clinical correlation is essential. Serum or plasma hepatitis B virus surface antigen detection by immunoassayon 02-08-2022 HBV surface Ag IA Ql Negative [facility]: [phone] Serum or plasma urea nitroge n measurement (mass/volume)on 02-08-2022 Urea nitrogen [Mass/Vol] 12 mg/dL 7-18 [facility] Work Phone: [phone] Thin prep Papanicolaou smear with manual screeningon 02-08-2022 Thin prep Papanicolaou smear with manual screening 25 U/L 15-37 [facility] Work Phone: [phone] Thin prep Papanicolaou smear with manual screening 9 5-15 [facility] Work Phone: [phone] Absolute lymphocyte counton 02-05-2022 Lymphocytes Auto (Unsp spec) [#/Vol] 2.34 10*3/uL 0.83-4.51 [facility] Work Phone: Basophil percentageon 2021 Basophils/100 WBC (Bld) 0.2 % 0-1 [facility] Work Phone: [phone] Bilirubin [Mass/Vol] 0.30 mg/dL 0.20-1.00 [facility] Work Phone: Comment on above: For patients on eltr ombopag therapy, use of [employer] [place] TBIL is not recommended. Chloride [Moles/Vol] 110 mmol/L 98-107 [facility] Work Phone: Eosinophils/100 WBC (Bld) 4.4 % 0-5 [facility] Work Phone: Glucose [Mass/Vol] 123 mg/dL 74-[address] [facility] Work Phone: Comment on above: Fasting Glucose resu lt from 100 to 125 mg/dL suggests IMPAIRED HOMEOSTASIS per A.D.A. criteria. Neutrophils (Bld) [#/Vol] 1.7 10*3/uL 2.0-7.7 [facility] Work Phone: Neutrophils/100 WBC (Bld) 33.8 % 47-70 [facility] Work Phone: Potassium [Moles/Vol] 3.4 mmol/L 3.5-5.1 [facility] Work Phone: Protein [Mass/Vol] 5.9 g/dL 6.4-8.[address] [facility] Work Phone: Sodium [Moles/Vol] 143 mmol/L 136-[address] [facility] Work Phone: WBC (Bld) [#/Vol] 5.0 10*3/uL 4.4-11.[address] [facility] Work Phone: Blood erythrocytes count (nu mber/volume)on 02-05-2022 RBC (Bld) [#/Vol] 3.91 10*6/uL 4.2-5.4 [facility] Work Phone: Blood hemoglobin measurement (mass/volume)on 02-05-2022 Hemoglobin (Bld) [Mass/Vol] 10.0 g/dL 12.0-15.0 [facility] Work Phone: Blood lymphocytes/100 leukoc yteson 02-05-2022 Lymphocytes/100 WBC (Bld) 47.3 % 19-41 [facility] Work Phone: Blood monocytes/100 leukocyt eson 02-05-2022 Monocytes/100 WBC (Bld) 13.9 % 0-10 [facility] Work Phone: Blood platelet mean volumeon 02-05-2022 Platelet mean volume (Bld) [Entitic vol] 10.1 fL 6.2-12.0 [facility] Work Phone: Determination of erythrocyte mean corpuscular volume (MCV)on 02-05-2022 MCV (RBC) [Entitic vol] 82.6 fL 81-99 [facility] Work Phone: Direct bilirubinon Bilirubin.direct [Mass/Vol] 0.15 mg/dL 0.00-0.30 [facility] Work Phone: Glucose Glucometer (BldC) [M ass/Vol]on 02-05-2022 Glucose [Mass/Vol] 133 mg/dL 74-[address] [facility] Work Phone: Comment on above: MANAGEMENT OF PATIEN T CARE PER NURSING PROTOCOL Hematocrit Auto (Bld) [Volum e fraction]on 02-05-2022 Hematocrit (Bld) [Volume fraction] 32.3 % 37-47 [facility] Work Phone: Laboratory - Chemistry and C hemistry - challengeon 02-05-2022 ALP [Catalytic activity/Vol] 50 U/L 45-117 [facility] Work Phone: ALT [Catalytic activity/Vol] 72 U/L 13-56 [facility] Work Phone: CO2 [Moles/Vol] 30.0 mmol/L 21.0-32.0 [facility] Work Phone: Globulin (S) [Mass/Vol] 3.2 g/dL 2.2-4.2 [facility] Work Phone: Urea nitrogen/Creatinine [Mass ratio] 12.4 mg/mg 10-20 [facility] Work Phone: Laboratory - Hematology and Cell countson 02-05-2022 Erythrocyte distribution width (RBC) [Entitic vol] 41.7 fL 35.1-43.9 [facility] Work Phone: [phone] Erythrocyte distribution width (RBC) [Ratio] 14.0 % 11.6-14.6 [facility] Work Phone: [phone] Immature granulocytes/100 WBC (Bld) 0.400 % 0.0-0.9 [facility] Work Phone: [phone] Comment on above: IG% - Immature Granu locytes (promyelocytes, myelocytes and metamyelocytes) > 1% indicates that a LEFT SHIFT is Present. MCH (RBC) [Entitic mass] 25.6 pg 27.0-32.0 [facility] Work Phone: Nucleated RBC/100 WBC (Bld) [Ratio] 0 % 0-5 [facility] Work Phone: [phone] MCHC Auto (RBC) [Mass/Vol]on 02-05-2022 MCHC (RBC) [Mass/Vol] 31.0 g/dL 32-36 [facility] Work Phone: [phone] Comment on above: Delta: 33.0 on 02/04 No Panel Informationon 02-05 Estimated Creatinine Clearance Calc 72.72 ml/min [facility] Work Phone: [phone] Estimated GFR (MDRD) Amer 86 mL/min >60 [facility] Work Phone: [phone] Comment on above: GFR Calc Estimated GFR (MDRD) Non-Af Amer 71 mL/min >60 [facility] Work Phone: [phone] Comment on above: Non- GFR Calc Platelets bldon 02-05-2022 Platelets (Bld) [#/Vol] 190 10*3/uL 150-450 [facility] Work Phone: [phone] Serum or plasma albumin thiago urement (mass/volume)on 02-05-2022 Albumin [Mass/Vol] 2.7 g/dL 3.2-5.[address] [facility] Work Phone: Serum or plasma calcium thiago urement (mass/volume)on 02-05-2022 Calcium [Mass/Vol] 7.8 mg/dL 8.5-10.[address] [facility] Work Phone: Serum or plasma creatinine m easurement (mass/volume)on 02-05-2022 Creatinine [Mass/Vol] 0.89 mg/dL 0.55-1.02 [facility] Work Phone: Comment on above: The validity of the calculated GFR & GFRAA in patients over 70 years has not been determined. Clinical correlation is essential. Serum or plasma urea nitroge n measurement (mass/volume)on 02-05-2022 Urea nitrogen [Mass/Vol] 11 mg/dL 7-18 [facility] Work Phone: Thin prep Papanicolaou smear with manual screeningon 02-05-2022 Thin prep Papanicolaou smear with manual screening 53 U/L 15-37 [facility] Work Phone: [phone] Thin prep Papanicolaou smear with manual screening 3 5-15 [facility] Work Phone: Iron measurement (mass/mass) on 02-04-2022 Iron (Unsp spec) [Mass/Mass] 29 ug/dL 50-170 [facility] Work Phone: No Panel Informationon 02-04 Total Iron Binding Capacity 373 ug/dL 250-450 [facility] Work Phone: [phone] Serum or plasma albumin/glob ulin mass ratioon 02-04-2022 Albumin/Globulin [Mass ratio] 0.9 {ratio} 0.9-2.4 [facility] Work Phone: [phone] Serum or plasma ferritin lizette surement (mass/volume)on 02-04-2022 Ferritin [Mass/Vol] 36 ng/mL 8-252 [facility] Work Phone: [phone] Serum or plasma iron saturat ion measurement (mass fraction)on 02-04-2022 Iron saturation [Mass fraction] 7.8 % 15.0-55.0 [facility] Work Phone: Absolute lymphocyte counton 02-03-2022 Lymphocytes Auto (Unsp spec) [#/Vol] 0.92 10*3/uL 0.83-4.51 [facility] Work Phone: Basophil percentageon 2021 Basophil percentage 0-5 SEEN /hpf 0-5 [facility] Work Phone: Basophils/100 WBC (Bld) 0.1 % 0-1 [facility] Work Phone: Bilirubin [Mass/Vol] 0.50 mg/dL 0.20-1.00 [facility] Work Phone: Comment on above: For patients on eltr ombopag therapy, use of [place] TBIL is not recommended. Chloride [Moles/Vol] 106 mmol/L 98-107 [facility] Work Phone: Eosinophils/100 WBC (Bld) 2.0 % 0-5 [facility] Work Phone: Glucose [Mass/Vol] 141 mg/dL 74-[address] [facility] Work Phone: Comment on above: Fasting Glucose resu lt greater than or equal to 126 mg/dL suggests DIABETES MELLITUS per A.D.A. criteria. Lactate [Moles/Vol] 1.3 mmol/L 0.4-2.0 [facility] Work Phone: Neutrophils (Bld) [#/Vol] 7.0 10*3/uL 2.0-7.7 [facility] Work Phone: Neutrophils/100 WBC (Bld) 81.0 % 47-70 [facility] Work Phone: Potassium [Moles/Vol] 4.1 mmol/L 3.5-5.1 [facility] Work Phone: Protein [Mass/Vol] 7.2 g/dL 6.4-8.[address] [facility] Work Phone: Sodium [Moles/Vol] 140 mmol/L 136-[address] [facility] Work Phone: WBC (Bld) [#/Vol] 8.6 10*3/uL 4.4-11.[address] [facility] Work Phone: Beta hCG serum qualon 2021 Beta HCG ( test) Ql Negative [facility] Work Phone: Bilirubin Test strip Ql (U)o n 02-03-2022 Bilirubin Ql (U) Negative Negative [facility] Work Phone: Blood erythrocytes count (nu mber/volume)on 02-03-2022 RBC (Bld) [#/Vol] 4.48 10*6/uL 4.2-5.4 [facility] Work Phone: Blood hemoglobin measurement (mass/volume)on 02-03-2022 Hemoglobin (Bld) [Mass/Vol] 11.5 g/dL 12.0-15.0 [facility] Work Phone: Blood lymphocytes/100 leukoc yteson 02-03-2022 Lymphocytes/100 WBC (Bld) 10.7 % 19-41 [facility] Work Phone: Blood monocytes/100 leukocyt eson 02-03-2022 Monocytes/100 WBC (Bld) 5.9 % 0-10 [facility] Work Phone: Blood platelet mean volumeon 02-03-2022 Platelet mean volume (Bld) [Entitic vol] 10.0 fL 6.2-12.0 [facility] Work Phone: Determination of erythrocyte mean corpuscular volume (MCV)on 02-03-2022 MCV (RBC) [Entitic vol] 80.4 fL 81-99 [facility] Work Phone: Hematocrit Auto (Bld) [Volum e fraction]on 02-03-2022 Hematocrit (Bld) [Volume fraction] 36.0 % 37-47 [facility] Work Phone: INR in Blood by Coagulation assayon 11-10-2022 INR Coag (Bld) [Relative time] 1.1 {INR} [facility] Work Phone: Ketones Test strip Ql (U)on 02-03-2022 Ketones Ql (U) 5 mg/dl Negative [facility] Work Phone: Laboratory - Chemistry and C hemistry - challengeon 02-03-2022 ALP [Catalytic activity/Vol] 50 U/L 45-117 [facility] Work Phone: ALT [Catalytic activity/Vol] 25 U/L 13-56 [facility] Work Phone: CO2 [Moles/Vol] 24.0 mmol/L 21.0-32.0 [facility] Work Phone: Globulin (S) [Mass/Vol] 3.7 g/dL 2.2-4.2 [facility] Work Phone: Lipase [Catalytic activity/Vol] 382 U/L 73-393 [facility] Work Phone: Urea nitrogen/Creatinine [Mass ratio] 19.4 mg/mg 10-20 [facility] Work Phone: Laboratory - Coagulationon 04-05-2021 aPTT Coag (Bld) [Time] 28.7 s 24.1-36.2 [facility] Work Phone: PT Coag (PPP) [Time] 13.5 s 11.7-14.9 [facility] Work Phone: Laboratory - Hematology and Cell countson 02-03-2022 Erythrocyte distribution width (RBC) [Entitic vol] 38.9 fL 35.1-43.9 [facility] Work Phone: Erythrocyte distribution width (RBC) [Ratio] 13.4 % 11.6-14.6 [facility] Work Phone: Immature granulocytes/100 WBC (Bld) 0.300 % 0.0-0.9 [facility] Work Phone: Comment on above: IG% - Immature Granu locytes (promyelocytes, myelocytes and metamyelocytes) > 1% indicates that a LEFT SHIFT is Present. MCH (RBC) [Entitic mass] 25.7 pg 27.0-32.0 [facility] Work Phone: Nucleated RBC/100 WBC (Bld) [Ratio] 0 % 0-5 [facility] Work Phone: MCHC Auto (RBC) [Mass/Vol]on 02-03-2022 MCHC (RBC) [Mass/Vol] 31.9 g/dL 32-36 [facility] Work Phone: Mucus LM Ql (Urine sed)on Mucus Ql (Urine sed) 0 SEEN /hpf [facility] Work Phone: Nitrite Test strip Ql (U)on 02-03-2022 Nitrite Ql (U) Negative Negative [facility] Work Phone: No Panel Informationon 02-03 Estimated Creatinine Clearance Calc 73.55 ml/min [facility] Work Phone: Estimated GFR (MDRD) Amer 87 mL/min >60 [facility] Work Phone: Comment on above: GFR Calc Estimated GFR (MDRD) Non-Af Amer 72 mL/min >60 [facility] Work Phone: Comment on above: Non- GFR Calc Platelets bldon 02-03-2022 Platelets (Bld) [#/Vol] 222 10*3/uL 150-450 [facility] Work Phone: Protein Test strip Ql (U)on 02-03-2022 Protein Ql (U) 30 mg/dl Negative [facility] Work Phone: [phone] Serum heterophile antibody d etectionon 02-03-2022 Heterophile Ab Ql (S) Negative Negative [facility] Work Phone: [phone] Serum or plasma albumin thiago urement (mass/volume)on 02-03-2022 Albumin [Mass/Vol] 3.5 g/dL 3.2-5.[address] [facility] Work Phone: Serum or plasma albumin/glob ulin mass ratioon 02-03-2022 Albumin/Globulin [Mass ratio] 0.9 {ratio} 0.9-2.4 [facility] Work Phone: Serum or plasma calcium thiago urement (mass/volume)on 02-03-2022 Calcium [Mass/Vol] 8.8 mg/dL 8.5-10.[address] [facility] Work Phone: Serum or plasma creatinine m easurement (mass/volume)on 02-03-2022 Creatinine [Mass/Vol] 0.88 mg/dL 0.55-1.02 [facility] Work Phone: Comment on above: The validity of the calculated GFR & GFRAA in patients over 70 years has not been determined. Clinical correlation is essential. Serum or plasma urea nitroge n measurement (mass/volume)on 02-03-2022 Urea nitrogen [Mass/Vol] 17 mg/dL 7-18 [facility] Work Phone: Serum procalcitonin measurem enton 02-03-2022 Procalcitonin [Mass/Vol] 0.08 ng/mL 0.00-0.09 [facility] Work Phone: Comment on above: A procalcitonin [...] Ql (Urine sed) 0-5 SEEN /hpf 5-10 [facility] Work Phone: Thin prep Papanicolaou smear with manual screeningon 02-03-2022 Thin prep Papanicolaou smear with manual screening 23 U/L 15-37 [facility] Work Phone: Thin prep Papanicolaou smear with manual screening 10 5-15 [facility] Work Phone: Urine blood detectionon 01-25 RBC Ql (U) Negative Negative [facility] Work Phone: RBC Ql (U) 0 SEEN /hpf 0-5 [facility] Work Phone: Urine clarityon 02-03-2022 Clarity (U) Sl. Cloudy Clear [facility] Work Phone: Urine color determinationon 02-03-2022 Color (U) Yellow Yellow [facility] Work Phone: Urine glucose detectionon Glucose Ql (U) Normal mg/dl Normal [facility] Work Phone: Urine leukocyte esterase det ection by dipstickon 02-03-2022 Leukocyte esterase Test strip Ql (U) 25 /ul Negative [facility] Work Phone: Urine pHon 02-03-2022 pH (U) 8.0 [pH] 5.0 - 8.0 [facility] Work Phone: Urine sediment bacteria coun t by microscopy (number/high power field)on 02-03-2022 Bacteria LM.HPF (Urine sed) [#/Area] RARE /hpf None Seen [facility] Work Phone: Urine specific gravity measu rementon 02-03-2022 Specific gravity (U) [Rel density] 1.010 1.002-1.030 [facility] Work Phone: Urobilinogen Auto test strip Ql (U)on 02-03-2022 Urobilinogen Ql (U) Normal mg/dl Normal [facility] Work Phone: Absolute lymphocyte counton 12-21-2021 Lymphocytes Auto (Unsp spec) [#/Vol] 2.78 10*3/uL 0.83-4.51 [facility] Work Phone: Basophil percentageon 2021 Basophils/100 WBC (Bld) 0.5 % 0-1 [facility] Work Phone: Bilirubin [Mass/Vol] 0.40 mg/dL 0.20-1.00 [facility] Work Phone: Comment on above: For patients on eltr ombopag therapy, use of [place] TBIL is not recommended. Chloride [Moles/Vol] 106 mmol/L 98-107 [facility] Work Phone: Eosinophils/100 WBC (Bld) 2.2 % 0-5 [facility] Work Phone: Glucose [Mass/Vol] 145 mg/dL 74-[address] [facility] Work Phone: Comment on above: Fasting Glucose resu lt greater than or equal to 126 mg/dL suggests DIABETES MELLITUS per A.D.A. criteria. Neutrophils (Bld) [#/Vol] 4.7 10*3/uL 2.0-7.7 [facility] Work Phone: Neutrophils/100 WBC (Bld) 56.6 % 47-70 [facility] Work Phone: Potassium [Moles/Vol] 4.2 mmol/L 3.5-5.1 [facility] Work Phone: Protein [Mass/Vol] 7.9 g/dL 6.4-8.[address] [facility] Work Phone: Sodium [Moles/Vol] 141 mmol/L 136-[address] [facility] Work Phone: WBC (Bld) [#/Vol] 8.2 10*3/uL 4.4-11.[address] [facility] Work Phone: Blood erythrocytes count (nu mber/volume)on 12-21-2021 RBC (Bld) [#/Vol] 4.41 10*6/uL 4.2-5.4 [facility] Work Phone: Blood hemoglobin measurement (mass/volume)on 12-21-2021 Hemoglobin (Bld) [Mass/Vol] 11.8 g/dL 12.0-15.0 [facility] Work Phone: Blood lymphocytes/100 leukoc yteson 12-21-2021 Lymphocytes/100 WBC (Bld) 33.7 % 19-41 [facility] Work Phone: Blood monocytes/100 leukocyt eson 12-21-2021 Monocytes/100 WBC (Bld) 6.8 % 0-10 [facility] Work Phone: Blood platelet mean volumeon 12-21-2021 Platelet mean volume (Bld) [Entitic vol] 10.6 fL 6.2-12.0 [facility] Work Phone: Determination of erythrocyte mean corpuscular volume (MCV)on 12-21-2021 MCV (RBC) [Entitic vol] 80.7 fL 81-99 [facility] Work Phone: Hematocrit Auto (Bld) [Volum e fraction]on 12-21-2021 Hematocrit (Bld) [Volume fraction] 35.6 % 37-47 [facility] Work Phone: Laboratory - Chemistry and C hemistry - challengeon 12-21-2021 ALP [Catalytic activity/Vol] 49 U/L 45-117 [facility] Work Phone: ALT [Catalytic activity/Vol] 25 U/L 13-56 [facility] Work Phone: CO2 [Moles/Vol] 27.0 mmol/L 21.0-32.0 [facility] Work Phone: Globulin (S) [Mass/Vol] 4.1 g/dL 2.2-4.2 [facility] Work Phone: Urea nitrogen/Creatinine [Mass ratio] 21.9 mg/mg 10-20 [facility] Work Phone: Laboratory - Hematology and Cell countson 12-21-2021 Erythrocyte distribution width (RBC) [Entitic vol] 38.6 fL 35.1-43.9 [facility] Work Phone: [phone] Erythrocyte distribution width (RBC) [Ratio] 13.3 % 11.6-14.6 [facility] Work Phone: [phone] Immature granulocytes/100 WBC (Bld) 0.200 % 0.0-0.9 [facility] Work Phone: [phone] Comment on above: IG% - Immature Granu locytes (promyelocytes, myelocytes and metamyelocytes) > 1% indicates that a LEFT SHIFT is Present. MCH (RBC) [Entitic mass] 26.8 pg 27.0-32.0 [facility] Work Phone: [phone] Nucleated RBC/100 WBC (Bld) [Ratio] 0 % 0-5 [facility] Work Phone: [phone] MCHC Auto (RBC) [Mass/Vol]on 12-21-2021 MCHC (RBC) [Mass/Vol] 33.1 g/dL 32-36 [facility] Work Phone: No Panel Informationon 12-21 Estimated GFR (MDRD) Amer 79 mL/min >60 [facility] Work Phone: Comment on above: GFR Calc Estimated GFR (MDRD) Non-Af Amer 65 mL/min >60 [facility] Work Phone: Comment on above: Non- GFR Calc Thyroid Stimulating Hormone (TSH) 2.66 uIU/mL 0.358-3.74 [facility] Work Phone: Platelets bldon 12-21-2021 Platelets (Bld) [#/Vol] 285 10*3/uL 150-450 [facility] Work Phone: [phone] Serum or plasma albumin thiago urement (mass/volume)on 12-21-2021 Albumin [Mass/Vol] 3.8 g/dL 3.2-5.[address] [facility] Work Phone: [phone] Serum or plasma albumin/glob ulin mass ratioon 12-21-2021 Albumin/Globulin [Mass ratio] 0.9 {ratio} 0.9-2.4 [facility] Work Phone: Serum or plasma calcium thiago urement (mass/volume)on 12-21-2021 Calcium [Mass/Vol] 9.2 mg/dL 8.5-10.[address] [facility] Work Phone: [phone] Serum or plasma creatinine m easurement (mass/volume)on 12-21-2021 Creatinine [Mass/Vol] 0.96 mg/dL 0.55-1.02 [facility] Work Phone: Comment on above: The validity of the calculated GFR & GFRAA in patients over 70 years has not been determined. Clinical correlation is essential. Serum or plasma urea nitroge n measurement (mass/volume)on 12-21-2021 Urea nitrogen [Mass/Vol] 21 mg/dL 7-18 [facility] Work Phone: [phone] Thin prep Papanicolaou smear with manual screeningon 12-21-2021 Thin prep Papanicolaou smear with manual screening 20 U/L 15-37 [facility] Work Phone: Thin prep Papanicolaou smear with manual screening 8 5-15 [facility] Work Phone: Laboratory - Chemistry and C hemistry - challengeon 10-20-2021 Free T4 [Mass/Vol] 0.84 ng/dL 0.76-1.[address] [facility] Work Phone: No Panel Informationon 10-20 Thyroid Stimulating Hormone (TSH) 2.21 uIU/mL 0.358-3.74 [facility] Work Phone: [phone] Whole blood hemoglobin A1c/t otal hemoglobin ratio (mass fraction)on 10-20-2021 HbA1c (Bld) [Mass fraction] 6.6 % 3.8-5.6 [facility] Work Phone: Comment on above: Normal < 5.7 % Predi abetic 5.7 - 6.4 % Diabetic >or= 6.5 % Please note range changes. Absolute lymphocyte counton 09-21-2021 Lymphocytes Auto (Unsp spec) [#/Vol] 2.61 10*3/uL 0.83-4.51 [facility] Work Phone: Basophil percentageon 2021 Basophils/100 WBC (Bld) 0.5 % 0-1 [facility] Work Phone: Bilirubin [Mass/Vol] 0.60 mg/dL 0.20-1.00 [facility] Work Phone: Comment on above: For patients on eltr ombopag therapy, use of Dimension [place] TBIL is not recommended. Chloride [Moles/Vol] 105 mmol/L 98-107 [facility] Work Phone: Eosinophils/100 WBC (Bld) 2.1 % 0-5 [facility] Work Phone: Glucose [Mass/Vol] 143 mg/dL 74-[address] [facility] Work Phone: Comment on above: Fasting Glucose resu lt greater than or equal to 126 mg/dL suggests DIABETES MELLITUS per A.D.A. criteria. Neutrophils (Bld) [#/Vol] 4.1 10*3/uL 2.0-7.7 [facility] Work Phone: Neutrophils/100 WBC (Bld) 54.2 % 47-70 [facility] Work Phone: Potassium [Moles/Vol] 4.1 mmol/L 3.5-5.1 [facility] Work Phone: Protein [Mass/Vol] 7.5 g/dL 6.4-8.[address] [facility] Work Phone: Sodium [Moles/Vol] 139 mmol/L 136-[address] [facility] Work Phone: WBC (Bld) [#/Vol] 7.7 10*3/uL 4.4-11.[address] [facility] Work Phone: Blood erythrocytes count (nu mber/volume)on 09-21-2021 RBC (Bld) [#/Vol] 4.25 10*6/uL 4.2-5.4 [facility] Work Phone: [phone] Blood hemoglobin measurement (mass/volume)on 09-21-2021 Hemoglobin (Bld) [Mass/Vol] 11.5 g/dL 12.0-15.0 [facility] Work Phone: [phone] Blood lymphocytes/100 leukoc yteson 09-21-2021 Lymphocytes/100 WBC (Bld) 34.1 % 19-41 [facility] Work Phone: [phone] Blood monocytes/100 leukocyt eson 09-21-2021 Monocytes/100 WBC (Bld) 8.6 % 0-10 [facility] Work Phone: [phone] Blood platelet mean volumeon 09-21-2021 Platelet mean volume (Bld) [Entitic vol] 9.9 fL 6.2-12.0 [facility] Work Phone: [phone] Determination of erythrocyte mean corpuscular volume (MCV)on 09-21-2021 MCV (RBC) [Entitic vol] 81.6 fL 81-99 [facility] Work Phone: [phone] Hematocrit Auto (Bld) [Volum e fraction]on 09-21-2021 Hematocrit (Bld) [Volume fraction] 34.7 % 37-47 [facility] Work Phone: [phone] Laboratory - Chemistry and C hemistry - challengeon 09-21-2021 ALP [Catalytic activity/Vol] 45 U/L 45-117 [facility] Work Phone: [phone] ALT [Catalytic activity/Vol] 28 U/L 13-56 [facility] Work Phone: [phone] CO2 [Moles/Vol] 26.0 mmol/L 21.0-32.0 [facility] Work Phone: [phone] Globulin (S) [Mass/Vol] 3.8 g/dL 2.2-4.2 [facility] Work Phone: Urea nitrogen/Creatinine [Mass ratio] 12.8 mg/mg 10-20 [facility] Work Phone: [phone] Laboratory - Hematology and Cell countson 09-21-2021 Erythrocyte distribution width (RBC) [Entitic vol] 38.6 fL 35.1-43.9 [facility] Work Phone: [phone] Erythrocyte distribution width (RBC) [Ratio] 13.0 % 11.6-14.6 [facility] Work Phone: [phone] Immature granulocytes/100 WBC (Bld) 0.500 % 0.0-0.9 [facility] Work Phone: [phone] Comment on above: IG% - Immature Granu locytes (promyelocytes, myelocytes and metamyelocytes) > 1% indicates that a LEFT SHIFT is Present. MCH (RBC) [Entitic mass] 27.1 pg 27.0-32.0 [facility] Work Phone: [phone] Nucleated RBC/100 WBC (Bld) [Ratio] 0 % 0-5 [facility] Work Phone: [phone] MCHC Auto (RBC) [Mass/Vol]on 09-21-2021 MCHC (RBC) [Mass/Vol] 33.1 g/dL 32-36 [facility] Work Phone: [phone] Panel Informationon 09-21 Estimated GFR (MDRD) Amer 68 mL/min >60 [facility] Work Phone: [phone] Comment on above: GFR Calc Estimated GFR (MDRD) Non-Af Amer 56 mL/min >60 [facility] Work Phone: [phone] Comment on above: Non- GFR Calc Thyroid Stimulating Hormone (TSH) 2.98 uIU/mL 0.358-3.74 [facility] Work Phone: [phone] Vitamin D 25-Hydroxy 36.2 ng/mL [facility] Work Phone: [phone] Comment on above: Vitamin D 25(OH) Sta tus Range Deficiency <20 ng/mL (50nmol/L) Insufficiency 20 - 30 ng/mL (50 - 75 nmol/L) Sufficiency 30 - 100 ng/mL (75 - 250 nmol/L) Toxicity >100 ng/mL (>250 nmol/L) Platelets bldon 09-21-2021 Platelets (Bld) [#/Vol] 274 10*3/uL 150-450 [facility] Work Phone: Serum or plasma albumin thiago urement (mass/volume)on 09-21-2021 Albumin [Mass/Vol] 3.7 g/dL 3.2-5.[address] [facility] Work Phone: [phone] Serum or plasma albumin/glob ulin mass ratioon 09-21-2021 Albumin/Globulin [Mass ratio] 1.0 {ratio} 0.9-2.4 [facility] Work Phone: [phone] Serum or plasma calcium thiago urement (mass/volume)on 09-21-2021 Calcium [Mass/Vol] 8.7 mg/dL 8.5-10.[address] [facility] Work Phone: [phone] Serum or plasma creatinine m easurement (mass/volume)on 09-21-2021 Creatinine [Mass/Vol] 1.09 mg/dL 0.55-1.02 [facility] Work Phone: Comment on above: The validity of the calculated GFR & GFRAA in patients over 70 years has not been determined. Clinical correlation is essential. Serum or plasma urea nitroge n measurement (mass/volume)on 09-21-2021 Urea nitrogen [Mass/Vol] 14 mg/dL 7-18 [facility] Work Phone: [phone] Thin prep Papanicolaou smear with manual screeningon 09-21-2021 Thin prep Papanicolaou smear with manual screening 27 U/L 15-37 [facility] Work Phone: [phone] Thin prep Papanicolaou smear with manual screening 8 5-15 [facility] Work Phone: [phone] Absolute lymphocyte counton 08-25-2021 Lymphocytes Auto (Unsp spec) [#/Vol] 2.35 10*3/uL 0.83-4.51 [facility] Work Phone: [phone] Basophil percentageon 2021 Basophils/100 WBC (Bld) 0.4 % 0-1 [facility] Work Phone: Bilirubin [Mass/Vol] 0.40 mg/dL 0.20-1.00 [facility] Work Phone: Comment on above: For patients on eltr ombopag therapy, use of Dim[employer] [place] TBIL is not recommended. Chloride [Moles/Vol] 106 mmol/L 98-107 [facility] Work Phone: Eosinophils/100 WBC (Bld) 1.5 % 0-5 [facility] Work Phone: Glucose [Mass/Vol] 163 mg/dL 74-[address] [facility] Work Phone: Comment on above: Fasting Glucose resu lt greater than or equal to 126 mg/dL suggests DIABETES MELLITUS per A.D.A. criteria. Neutrophils (Bld) [#/Vol] 5.7 10*3/uL 2.0-7.7 [facility] Work Phone: Neutrophils/100 WBC (Bld) 62.9 % 47-70 [facility] Work Phone: Potassium [Moles/Vol] 4.5 mmol/L 3.5-5.1 [facility] Work Phone: Protein [Mass/Vol] 8.2 g/dL 6.4-8.[address] [facility] Work Phone: [phone] Sodium [Moles/Vol] 139 mmol/L 136-[address] [facility] Work Phone: WBC (Bld) [#/Vol] 9.1 10*3/uL 4.4-11.[address] [facility] Work Phone: Blood erythrocytes count (nu mber/volume)on 08-25-2021 RBC (Bld) [#/Vol] 4.49 10*6/uL 4.2-5.4 [facility] Work Phone: Blood hemoglobin measurement (mass/volume)on 08-25-2021 Hemoglobin (Bld) [Mass/Vol] 12.1 g/dL 12.0-15.0 [facility] Work Phone: Blood lymphocytes/100 leukoc yteson 08-25-2021 Lymphocytes/100 WBC (Bld) 25.8 % 19-41 [facility] Work Phone: Blood monocytes/100 leukocyt eson 08-25-2021 Monocytes/100 WBC (Bld) 8.9 % 0-10 [facility] Work Phone: Blood platelet mean volumeon 08-25-2021 Platelet mean volume (Bld) [Entitic vol] 10.4 fL 6.2-12.0 [facility] Work Phone: Culture, urineon 08-25-2021 Bacteria identified Cx Nom (U) Mixed Gram Pos & Gram Neg Org [facility] Work Phone: Determination of erythrocyte mean corpuscular volume (MCV)on 08-25-2021 MCV (RBC) [Entitic vol] 83.3 fL 81-99 [facility] Work Phone: Erythrocyte sedimentation ra david 08-25-2021 ESR (Bld) [Velocity] 39 mm[facility]h 0-30 [facility]: Hematocrit Auto (Bld) [Volum e fraction]on 08-25-2021 Hematocrit (Bld) [Volume fraction] 37.4 % 37-47 [facility] Work Phone: Laboratory - Chemistry and C hemistry - challengeon 08-25-2021 ALP [Catalytic activity/Vol] 44 U/L 45-117 [facility] Work Phone: ALT [Catalytic activity/Vol] 38 U/L 13-56 [facility] Work Phone: CO2 [Moles/Vol] 22.0 mmol/L 21.0-32.0 [facility] Work Phone: [phone] Globulin (S) [Mass/Vol] 4.3 g/dL 2.2-4.2 [facility] Work Phone: Urea nitrogen/Creatinine [Mass ratio] 26.5 mg/mg 10-20 [facility] Work Phone: [phone] Laboratory - Hematology and Cell countson 08-25-2021 Erythrocyte distribution width (RBC) [Entitic vol] 39.4 fL 35.1-43.9 [facility] Work Phone: [phone] Erythrocyte distribution width (RBC) [Ratio] 13.1 % 11.6-14.6 [facility] Work Phone: [phone] Immature granulocytes/100 WBC (Bld) 0.500 % 0.0-0.9 [facility] Work Phone: [phone] Comment on above: IG% - Immature Granu locytes (promyelocytes, myelocytes and metamyelocytes) > 1% indicates that a LEFT SHIFT is Present. MCH (RBC) [Entitic mass] 26.9 pg 27.0-32.0 [facility] Work Phone: [phone] Nucleated RBC/100 WBC (Bld) [Ratio] 0 % 0-5 [facility] Work Phone: [phone] MCHC Auto (RBC) [Mass/Vol]on 08-25-2021 MCHC (RBC) [Mass/Vol] 32.4 g/dL 32-36 [facility] Work Phone: [phone] No Panel Informationon 08-25 Estimated GFR (MDRD) Amer 77 mL/min >60 [facility] Work Phone: [phone] Comment on above: GFR Calc Estimated GFR (MDRD) Non-Af Amer 63 mL/min >60 [facility] Work Phone: [phone] Comment on above: Non- GFR Calc Thyroid Stimulating Hormone (TSH) 2.17 uIU/mL 0.358-3.74 [facility] Work Phone: [phone] Platelets bldon 08-25-2021 Platelets (Bld) [#/Vol] 293 10*3/uL 150-450 [facility] Work Phone: [phone] Serum or plasma C reactive p rotein measurement (mass/volume)on 08-25-2021 CRP [Mass/Vol] mg/L 0.0-3.0 [facility] Work Phone: Comment on above: C-Reactive Protein ( CRP) provides useful information for thediagnosis, therapy and monitoring of inflammatory processesand associated diseases. For the evaluation of Relative Riskfor Cardiovascular Disease, a High Sensitivity CRP (HSCRP)should be ordered. Serum or plasma albumin thiago urement (mass/volume)on 08-25-2021 Albumin [Mass/Vol] 3.9 g/dL 3.2-5.[address] [facility] Work Phone: Serum or plasma albumin/glob ulin mass ratioon 08-25-2021 Albumin/Globulin [Mass ratio] 0.9 {ratio} 0.9-2.4 [facility] Work Phone: Serum or plasma calcium thiago urement (mass/volume)on 08-25-2021 Calcium [Mass/Vol] 9.4 mg/dL 8.5-10.[address] [facility] Work Phone: Serum or plasma creatinine m easurement (mass/volume)on 08-25-2021 Creatinine [Mass/Vol] 0.98 mg/dL 0.55-1.02 [facility] Work Phone: Comment on above: The validity of the calculated GFR & GFRAA in patients over 70 years has not been determined. Clinical correlation is essential. Serum or plasma urea nitroge n measurement (mass/volume)on 08-25-2021 Urea nitrogen [Mass/Vol] 26 mg/dL 7-18 [facility] Work Phone: Thin prep Papanicolaou smear with manual screeningon 08-25-2021 Thin prep Papanicolaou smear with manual screening 31 U/L 15-37 [facility] Work Phone: Thin prep Papanicolaou smear with manual screening 11 5-15 [facility] Work Phone: No Panel Informationon 07-22 Homocysteine 7.4 umol/L 3.2-10.7 [facility] Work Phone: Serum or plasma methylmalona te measurement (moles/volume)on 07-22-2021 Methylmalonate [Moles/Vol] 819 nmol/L 0-378 [facility] Work Phone: [phone] Comment on above: Performed at: [facility] [address] [id number] Director: Pauline Yang MD, Phone: [phone] Absolute lymphocyte counton 07-20-2021 Lymphocytes Auto (Unsp spec) [#/Vol] 2.36 10*3/uL 0.83-4.51 [facility] Work Phone: [phone] Basophil percentageon 2021 Basophils/100 WBC (Bld) 0.4 % 0-1 [facility] Work Phone: [phone] Eosinophils/100 WBC (Bld) 2.3 % 0-5 [facility] Work Phone: [phone] Neutrophils (Bld) [#/Vol] 3.7 10*3/uL 2.0-7.7 [facility] Work Phone: [phone] Neutrophils/100 WBC (Bld) 54.5 % 47-70 [facility] Work Phone: [phone] WBC (Bld) [#/Vol] 6.9 10*3/uL 4.4-11.[address] [facility] Work Phone: [phone] Blood erythrocytes count (nu mber/volume)on 07-20-2021 RBC (Bld) [#/Vol] 4.01 10*6/uL 4.2-5.4 [facility] Work Phone: [phone] Blood hemoglobin measurement (mass/volume)on 07-20-2021 Hemoglobin (Bld) [Mass/Vol] 10.9 g/dL 12.0-15.0 [facility] Work Phone: [phone] Blood lymphocytes/100 leukoc yteson 07-20-2021 Lymphocytes/100 WBC (Bld) 34.4 % 19-41 [facility] Work Phone: [phone] Blood monocytes/100 leukocyt eson 07-20-2021 Monocytes/100 WBC (Bld) 8.3 % 0-10 [facility] Work Phone: [phone] Blood platelet mean volumeon 07-20-2021 Platelet mean volume (Bld) [Entitic vol] 10.5 fL 6.2-12.0 [facility] Work Phone: [phone] Determination of erythrocyte mean corpuscular volume (MCV)on 07-20-2021 MCV (RBC) [Entitic vol] 83.5 fL 81-99 [facility] Work Phone: [phone] Hematocrit Auto (Bld) [Volum e fraction]on 07-20-2021 Hematocrit (Bld) [Volume fraction] 33.5 % 37-47 [facility] Work Phone: [phone] Hemoglobin in reticulocytes (mass per reticulocyte)on 07-20-2021 Hemoglobin (Reticulocytes) [Entitic mass] 31.0 pg 30-35 [facility] Work Phone: [phone] Iron measurement (mass/mass) on 07-20-2021 Iron (Unsp spec) [Mass/Mass] 44 ug/dL 50-170 [facility] Work Phone: [phone] Laboratory - Chemistry and C hemistry - challengeon 07-20-2021 Cobalamin (Vitamin B12) [Mass/Vol] 299 pg/mL 211-911 [facility] Work Phone: [phone] Laboratory - Hematology and Cell countson 07-20-2021 Erythrocyte distribution width (RBC) [Entitic vol] 43.0 fL 35.1-43.9 [facility] Work Phone: [phone] Erythrocyte distribution width (RBC) [Ratio] 14.1 % 11.6-14.6 [facility] Work Phone: [phone] Immature granulocytes/100 WBC (Bld) 0.100 % 0.0-0.9 [facility] Work Phone: [phone] Comment on above: IG% - Immature Granu locytes (promyelocytes, myelocytes and metamyelocytes) > 1% indicates that a LEFT SHIFT is Present. MCH (RBC) [Entitic mass] 27.2 pg 27.0-32.0 [facility] Work Phone: Nucleated RBC/100 WBC (Bld) [Ratio] 0 % 0-5 [facility] Work [phone] MCHC Auto (RBC) [Mass/Vol]on 07-20-2021 MCHC (RBC) [Mass/Vol] 32.5 g/dL 32-36 [facility] Work Phone: No Panel Informationon 07-20 Immature Reticulocyte Fraction 17.20 % 3.00-15.90 [facility] Work [phone] Reticulocyte Count 2.13 % 0.5-1.[address] [facility] Work Phone: [phone] Total Iron Binding Capacity 443 ug/dL 250-450 [facility] Work Phone: [phone] Platelets bldon 07-20-2021 Platelets (Bld) [#/Vol] 234 10*3/uL 150-450 [facility] Work Phone: [phone] Serum or plasma ferritin lizette surement (mass/volume)on 07-20-2021 Ferritin [Mass/Vol] 30 ng/mL 8-252 [facility] Work Phone: [phone] Serum or plasma folate measu rement (mass/volume)on 07-20-2021 Folate [Mass/Vol] 11.00 ng/mL 3.1-55.[address] [facility] Work Phone: [phone] Serum or plasma iron saturat ion measurement (mass fraction)on 07-20-2021 Iron saturation [Mass fraction] 9.9 % 15.0-55.0 [facility] Work Phone: Absolute lymphocyte counton 07-19-2021 Lymphocytes Auto (Unsp spec) [#/Vol] 2.89 10*3/uL 0.83-4.51 [facility] Work Phone: [phone] Basophil percentageon 2021 Basophils/100 WBC (Bld) 0.4 % 0-1 [facility] Work Phone: Chloride [Moles/Vol] 108 mmol/L 98-107 [facility] Work Phone: Eosinophils/100 WBC (Bld) 1.8 % 0-5 [facility] Work Phone: Glucose [Mass/Vol] 140 mg/dL 74-[address] [facility] Work Phone: Comment on above: Fasting Glucose resu lt greater than or equal to 126 mg/dL suggests DIABETES MELLITUS per A.D.A. criteria. Neutrophils (Bld) [#/Vol] 4.7 10*3/uL 2.0-7.7 [facility] Work Phone: Neutrophils/100 WBC (Bld) 55.6 % 47-70 [facility] Work Phone: Potassium [Moles/Vol] 4.0 mmol/L 3.5-5.1 [facility] Work Phone: Sodium [Moles/Vol] 138 mmol/L 136-[address] [facility] Work Phone: WBC (Bld) [#/Vol] 8.4 10*3/uL 4.4-11.[address] [facility] Work Phone: Blood erythrocytes count (nu mber/volume)on 07-19-2021 RBC (Bld) [#/Vol] 4.11 10*6/uL 4.2-5.4 [facility] Work Phone: Blood hemoglobin measurement (mass/volume)on 07-19-2021 Hemoglobin (Bld) [Mass/Vol] 10.8 g/dL 12.0-15.0 [facility] Work Phone: Blood lymphocytes/100 leukoc yteson 07-19-2021 Lymphocytes/100 WBC (Bld) 34.5 % 19-41 [facility] Work Phone: Blood monocytes/100 leukocyt eson 07-19-2021 Monocytes/100 WBC (Bld) 7.5 % 0-10 [facility] Work Phone: Blood platelet mean volumeon 07-19-2021 Platelet mean volume (Bld) [Entitic vol] 10.4 fL 6.2-12.0 [facility] Work Phone: [phone] Culture, urineon 07-19-2021 Bacteria identified Cx Nom (U) Escherichia coli [facility] Work Phone: [phone] Determination of erythrocyte mean corpuscular volume (MCV)on 07-19-2021 MCV (RBC) [Entitic vol] 83.0 fL 81-99 [facility] Work Phone: [phone] Hematocrit Auto (Bld) [Volum e fraction]on 07-19-2021 Hematocrit (Bld) [Volume fraction] 34.1 % 37-47 [facility] Work Phone: [phone] Laboratory - Chemistry and C hemistry - challengeon 07-19-2021 CO2 [Moles/Vol] 26.0 mmol/L 21.0-32.0 [facility] Work Phone: [phone] Urea nitrogen/Creatinine [Mass ratio] 15.8 mg/mg 10-20 [facility] Work Phone: [phone] Laboratory - Hematology and Cell countson 07-19-2021 Erythrocyte distribution width (RBC) [Entitic vol] 42.5 fL 35.1-43.9 [facility] Work Phone: [phone] Erythrocyte distribution width (RBC) [Ratio] 14.1 % 11.6-14.6 [facility] Work Phone: [phone] Immature granulocytes/100 WBC (Bld) 0.200 % 0.0-0.9 [facility] Work Phone: [phone] Comment on above: IG% - Immature Granu locytes (promyelocytes, myelocytes and metamyelocytes) > 1% indicates that a LEFT SHIFT is Present. MCH (RBC) [Entitic mass] 26.3 pg 27.0-32.0 [facility] Work Phone: [phone] Nucleated RBC/100 WBC (Bld) [Ratio] 0 % 0-5 [facility] Work Phone: [phone] Laboratory - Microbiology an d Antimicrobial susceptibilityon 07-19-2021 Bacteria identified Cx Nom (Bld) No growth in 5 days. [facility] Work Phone: MCHC Auto (RBC) [Mass/Vol]on 07-19-2021 MCHC (RBC) [Mass/Vol] 31.7 g/dL 32-36 [facility] Work Phone: No Panel Informationon 07-19 Estimated GFR (MDRD) Amer 65 mL/min >60 [facility] Work Phone: Comment on above: GFR Calc Estimated GFR (MDRD) Non-Af Amer 53 mL/min >60 [facility] Work Phone: Comment on above: Non- GFR Calc Platelets bldon 07-19-2021 Platelets (Bld) [#/Vol] 257 10*3/uL 150-450 [facility] Work Phone: Serum or plasma calcium thiago urement (mass/volume)on 07-19-2021 Calcium [Mass/Vol] 9.6 mg/dL 8.5-10.[address] [facility] Work Phone: Serum or plasma creatinine m easurement (mass/volume)on 07-19-2021 Creatinine [Mass/Vol] 1.14 mg/dL 0.55-1.02 [facility] Work Phone: Comment on above: The validity of the calculated GFR & GFRAA in patients over 70 years has not been determined. Clinical correlation is essential. Serum or plasma urea nitroge n measurement (mass/volume)on 07-19-2021 Urea nitrogen [Mass/Vol] 18 mg/dL 7-18 [facility] Work Phone: Thin prep Papanicolaou smear with manual screeningon 07-19-2021 Thin prep Papanicolaou smear with manual screening 4 5-15 [facility] Work Phone: [phone] Absolute lymphocyte counton 06-23-2021 Lymphocytes Auto (Unsp spec) [#/Vol] 2.66 10*3/uL 0.83-4.51 [facility] Work Phone: Basophil percentageon 2021 Basophils/100 WBC (Bld) 0.5 % 0-1 [facility] Work Phone: Bilirubin [Mass/Vol] 0.50 mg/dL 0.20-1.00 [facility] Work Phone: Comment on above: For patients on eltr ombopag therapy, use of Dimension [place] TBIL is not recommended. Chloride [Moles/Vol] 101 mmol/L 98-107 [facility] Work Phone: Eosinophils/100 WBC (Bld) 1.5 % 0-5 [facility] Work Phone: Glucose [Mass/Vol] 252 mg/dL 74-[address] [facility] Work Phone: Comment on above: Glucose result great er than or equal to 200 mg/dLsuggests DIABETES MELLITUS per A.D.A. criteria. Neutrophils (Bld) [#/Vol] 5.2 10*3/uL 2.0-7.7 [facility] Work Phone: Neutrophils/100 WBC (Bld) 58.4 % 47-70 [facility] Work Phone: Potassium [Moles/Vol] 4.1 mmol/L 3.5-5.1 [facility] Work Phone: Protein [Mass/Vol] 7.9 g/dL 6.4-8.[address] [facility] Work Phone: Sodium [Moles/Vol] 137 mmol/L 136-[address] [facility] Work Phone: WBC (Bld) [#/Vol] 8.9 10*3/uL 4.4-11.[address] [facility] Work Phone: Blood erythrocytes count (nu mber/volume)on 06-23-2021 RBC (Bld) [#/Vol] 4.77 10*6/uL 4.2-5.4 [facility] Work Phone: Blood hemoglobin measurement (mass/volume)on 06-23-2021 Hemoglobin (Bld) [Mass/Vol] 13.1 g/dL 12.0-15.0 [facility] Work Phone: Blood lymphocytes/100 leukoc yteson 06-23-2021 Lymphocytes/100 WBC (Bld) 30.0 % 19-41 [facility] Work Phone: Blood monocytes/100 leukocyt eson 06-23-2021 Monocytes/100 WBC (Bld) 9.3 % 0-10 [facility] Work Phone: Blood platelet mean volumeon 06-23-2021 Platelet mean volume (Bld) [Entitic vol] 10.2 fL 6.2-12.0 [facility] Work Phone: Determination of erythrocyte mean corpuscular volume (MCV)on 06-23-2021 MCV (RBC) [Entitic vol] 80.5 fL 81-99 [facility] Work Phone: Hematocrit Auto (Bld) [Volum e fraction]on 06-23-2021 Hematocrit (Bld) [Volume fraction] 38.4 % 37-47 [facility] Work Phone: Laboratory - Chemistry and C hemistry - challengeon 06-23-2021 ALP [Catalytic activity/Vol] 50 U/L 45-117 [facility] Work Phone: ALT [Catalytic activity/Vol] 42 U/L 13-56 [facility] Work Phone: CO2 [Moles/Vol] 28.0 mmol/L 21.0-32.0 [facility] Work Phone: Globulin (S) [Mass/Vol] 4.1 g/dL 2.2-4.2 [facility] Work Phone: Urea nitrogen/Creatinine [Mass ratio] 16.0 mg/mg 10-20 [facility] Work Phone: Laboratory - Hematology and Cell countson 06-23-2021 Erythrocyte distribution width (RBC) [Entitic vol] 40.6 fL 35.1-43.9 [facility] Work Phone: [phone] Erythrocyte distribution width (RBC) [Ratio] 13.9 % 11.6-14.6 [facility] Work Phone: Immature granulocytes/100 WBC (Bld) 0.300 % 0.0-0.9 [facility] Work Phone: [phone] Comment on above: IG% - Immature Granu locytes (promyelocytes, myelocytes and metamyelocytes) > 1% indicates that a LEFT SHIFT is Present. MCH (RBC) [Entitic mass] 27.5 pg 27.0-32.0 [facility] Work Phone: [phone] Nucleated RBC/100 WBC (Bld) [Ratio] 0 % 0-5 [facility] Work Phone: [phone] MCHC Auto (RBC) [Mass/Vol]on 06-23-2021 MCHC (RBC) [Mass/Vol] 34.1 g/dL 32-36 [facility] Work Phone: No Panel Informationon 06-23 Estimated GFR (MDRD) Amer 58 mL/min >60 [facility] Work Phone: [phone] Comment on above: GFR Calc Estimated GFR (MDRD) Non-Af Amer 48 mL/min >60 [facility] Work Phone: Comment on above: Non- GFR Calc Thyroid Stimulating Hormone (TSH) 4.89 uIU/mL 0.358-3.74 [facility] Work Phone: [phone] Platelets bldon 06-23-2021 Platelets (Bld) [#/Vol] 274 10*3/uL 150-450 [facility] Work Phone: [phone] Serum or plasma albumin thiago urement (mass/volume)on 06-23-2021 Albumin [Mass/Vol] 3.8 g/dL 3.2-5.[address] [facility] Work Phone: [phone] Serum or plasma albumin/glob ulin mass ratioon 06-23-2021 Albumin/Globulin [Mass ratio] 0.9 {ratio} 0.9-2.4 [facility] Work Phone: [phone] Serum or plasma calcium thiago urement (mass/volume)on 06-23-2021 Calcium [Mass/Vol] 8.9 mg/dL 8.5-10.[address] [facility] Work Phone: Serum or plasma creatinine m easurement (mass/volume)on 06-23-2021 Creatinine [Mass/Vol] 1.25 mg/dL 0.55-1.02 [facility] Work Phone: Comment on above: The validity of the calculated GFR & GFRAA in patients over 70 years has not been determined. Clinical correlation is essential. Serum or plasma urea nitroge n measurement (mass/volume)on 06-23-2021 Urea nitrogen [Mass/Vol] 20 mg/dL 7-18 [facility] Work Phone: Thin prep Papanicolaou smear with manual screeningon 06-23-2021 Thin prep Papanicolaou smear with manual screening 32 U/L 15-37 [facility] Work Phone: Thin prep Papanicolaou smear with manual screening 8 5-15 [facility] Work Phone: Basophil percentageon 2021 Cholesterol [Mass/Vol] 126 mg/dL <200 [facility] Work Phone: Comment on above: <200 mg/dL Desirable 200-240 mg/dL Borderline >240 mg/dL High Risk Triglyceride [Mass/Vol] 145 mg/dL <199 [facility] Work Phone: Comment on above: The drugs N-Acetylcy steine and Metamizole may falsely depress this assay.Serum Triglycerides Reference Interval Normal <150 mg/dL Borderline high 150 - 199 mg/dL High 200 - 499 mg/dL Very High > or = 500 mg/dL Laboratory - Chemistry and C hemistry - challengeon 06-09-2021 Cobalamin (Vitamin B12) [Mass/Vol] 392 pg/mL 211-911 [facility] Work Phone: Free T4 [Mass/Vol] 0.98 ng/dL 0.76-1.[address] [facility] Work Phone: Laboratory - Hematology and Cell countson 06-09-2021 HbA1c (Bld) [Mass fraction] 9.4 % [facility] Work Phone: No Panel Informationon 06-09 Thyroid Stimulating Hormone (TSH) 2.37 uIU/mL 0.358-3.74 [facility] Work Phone: [phone] Vitamin D 25-Hydroxy 21.5 ng/mL [facility] Work Phone: Comment on above: Vitamin D 25(OH) Sta tus Range Deficiency <20 ng/mL (50nmol/L) Insufficiency 20 - 30 ng/mL (50 - 75 nmol/L) Sufficiency 30 - 100 ng/mL (75 - 250 nmol/L) Toxicity >100 ng/mL (>250 nmol/L) Serum or plasma cholesterol in HDL measurement (mass/volume)on 06-09-2021 Cholesterol in HDL [Mass/Vol] 41 mg/dL >40 [facility] Work Phone: Comment on above: The drugs N-Acetylcy steine and Metamizole may falsely depress this assay. Reference Range HDL <40 mg/dL Low HDL Cholesterol HDL >or= 60 mg/dL High HDL Cholesterol Serum or plasma cholesterol in VLDL measurement (mass/volume)on 06-09-2021 Cholesterol in VLDL [Mass/Vol] 29 mg/dL 5-40 [facility] Work Phone: [phone] Serum or plasma low density lipoprotein (LDL) cholesterol measurement (mass/volume)on 06-09-2021 Cholesterol in LDL [Mass/Vol] 56 mg/dL 0-130 [facility] Work Phone: [phone] Bacteria identified Cx Nom ( Wound)on 05-18-2021 Wound Culture Meth. resistant Staph. aureus [facility] Work Phone: [phone] Gram stain for investigation of transfusion reactionon 05-18-2021 Microscopic observation Gram stain Nom (Unsp spec) [facility] Work Phone: [phone] No Panel Informationon 05-18 Methicillin-Resist S.aureus DNA PCR Positive Negative [facility] Work Phone: [phone] Staphylococcus aureus DNA de tection by probe and target amplification methodon 05-18-2021 S. aureus DNA EMILY+probe Ql (Unsp spec) Positive Negative [facility] Work Phone: Absolute lymphocyte counton 05-17-2021 Lymphocytes Auto (Unsp spec) [#/Vol] 2.79 10*3/uL 0.83-4.51 [facility] Work Phone: Basophil percentageon 2021 Basophils/100 WBC (Bld) 0.4 % 0-1 [facility] Work Phone: Chloride [Moles/Vol] 104 mmol/L 98-107 [facility] Work Phone: Eosinophils/100 WBC (Bld) 1.6 % 0-5 [facility] Work Phone: Glucose [Mass/Vol] 227 mg/dL 74-[address] [facility] Work Phone: Comment on above: Glucose result great er than or equal to 200 mg/dLsuggests DIABETES MELLITUS per A.D.A. criteria. Neutrophils (Bld) [#/Vol] 4.7 10*3/uL 2.0-7.7 [facility] Work Phone: Neutrophils/100 WBC (Bld) 55.4 % 47-70 [facility] Work Phone: Potassium [Moles/Vol] 4.2 mmol/L 3.5-5.1 [facility] Work Phone: Sodium [Moles/Vol] 139 mmol/L 136-[address] [facility] Work Phone: WBC (Bld) [#/Vol] 8.5 10*3/uL 4.4-11.[address] [facility] Work Phone: Blood erythrocytes count (nu mber/volume)on 05-17-2021 RBC (Bld) [#/Vol] 4.70 10*6/uL 4.2-5.4 [facility] Work Phone: Blood hemoglobin measurement (mass/volume)on 05-17-2021 Hemoglobin (Bld) [Mass/Vol] 12.5 g/dL 12.0-15.0 [facility] Work Phone: Blood lymphocytes/100 leukoc yteson 05-17-2021 Lymphocytes/100 WBC (Bld) 32.7 % 19-41 [facility] Work Phone: Blood monocytes/100 leukocyt eson 05-17-2021 Monocytes/100 WBC (Bld) 9.5 % 0-10 [facility] Work Phone: Blood platelet mean volumeon 05-17-2021 Platelet mean volume (Bld) [Entitic vol] 10.1 fL 6.2-12.0 [facility] Work Phone: Determination of erythrocyte mean corpuscular volume (MCV)on 05-17-2021 MCV (RBC) [Entitic vol] 80.6 fL 81-99 [facility] Work Phone: [phone] Hematocrit Auto (Bld) [Volum e fraction]on 05-17-2021 Hematocrit (Bld) [Volume fraction] 37.9 % 37-47 [facility] Work Phone: Laboratory - Chemistry and C hemistry - challengeon 05-17-2021 CO2 [Moles/Vol] 29.0 mmol/L 21.0-32.0 [facility] Work Phone: Urea nitrogen/Creatinine [Mass ratio] 20.2 mg/mg 10-20 [facility] Work Phone: [phone] Laboratory - Hematology and Cell countson 05-17-2021 Erythrocyte distribution width (RBC) [Entitic vol] 41.0 fL 35.1-43.9 [facility] Work Phone: [phone] Erythrocyte distribution width (RBC) [Ratio] 14.2 % 11.6-14.6 [facility] Work Phone: [phone] Immature granulocytes/100 WBC (Bld) 0.400 % 0.0-0.9 [facility] Work Phone: Comment on above: IG% - Immature Granu locytes (promyelocytes, myelocytes and metamyelocytes) > 1% indicates that a LEFT SHIFT is Present. MCH (RBC) [Entitic mass] 26.6 pg 27.0-32.0 [facility] Work Phone: Nucleated RBC/100 WBC (Bld) [Ratio] 0 % 0-5 [facility] Work Phone: Laboratory - Microbiology an d Antimicrobial susceptibilityon 05-17-2021 Bacteria identified Cx Nom (Bld) No growth in 5 days. [facility] Work Phone: MCHC Auto (RBC) [Mass/Vol]on 05-17-2021 MCHC (RBC) [Mass/Vol] 33.0 g/dL 32-36 [facility] Work Phone: No Panel Informationon 05-17 Estimated GFR (MDRD) Amer 62 mL/min >60 [facility] Work Phone: Comment on above: GFR Calc Estimated GFR (MDRD) Non-Af Amer 51 mL/min >60 [facility] Work Phone: Comment on above: Non- GFR Calc Platelets bldon 05-17-2021 Platelets (Bld) [#/Vol] 302 10*3/uL 150-450 [facility] Work Phone: Serum or plasma calcium thiago urement (mass/volume)on 05-17-2021 Calcium [Mass/Vol] 9.3 mg/dL 8.5-10.[address] [facility] Work Phone: Serum or plasma creatinine m easurement (mass/volume)on 05-17-2021 Creatinine [Mass/Vol] 1.19 mg/dL 0.55-1.02 [facility] Work Phone: Comment on above: The validity of the calculated GFR & GFRAA in patients over 70 years has not been determined. Clinical correlation is essential. Serum or plasma urea nitroge n measurement (mass/volume)on 05-17-2021 Urea nitrogen [Mass/Vol] 24 mg/dL 7-18 [facility] Work Phone: [phone] Thin prep Papanicolaou smear with manual screeningon 02-21-2022 Thin prep Papanicolaou smear with manual screening 6 5-15 [facility] Work Phone: Laboratory - Hematology and Cell countson 05-12-2021 HbA1c (Bld) [Mass fraction] 10.2 % [facility] Work Phone: Absolute lymphocyte counton 04-14-2021 Lymphocytes Auto (Unsp spec) [#/Vol] 3.45 10*3/uL 0.83-4.51 [facility] Work Phone: Bacteria identified Cx Nom ( Wound)on 04-14-2021 Wound Culture Meth. resistant Staph. aureus [facility] Work Phone: Basophil percentageon 2021 Basophils/100 WBC (Bld) 0.4 % 0-1 [facility] Work Phone: Chloride [Moles/Vol] 102 mmol/L 98-107 [facility] Work Phone: Eosinophils/100 WBC (Bld) 1.6 % 0-5 [facility] Work Phone: Glucose [Mass/Vol] 279 mg/dL 74-[address] [facility] Work Phone: Comment on above: Glucose result great er than or equal to 200 mg/dLsuggests DIABETES MELLITUS per A.D.A. criteria. Neutrophils (Bld) [#/Vol] 6.7 10*3/uL 2.0-7.7 [facility] Work Phone: Neutrophils/100 WBC (Bld) 58.3 % 47-70 [facility] Work Phone: Potassium [Moles/Vol] 4.5 mmol/L 3.5-5.1 [facility] Work Phone: Sodium [Moles/Vol] 137 mmol/L 136-[address] [facility] Work Phone: WBC (Bld) [#/Vol] 11.4 10*3/uL 4.4-11.0 [facility] Work Phone: Blood erythrocytes count (nu mber/volume)on 04-14-2021 RBC (Bld) [#/Vol] 4.66 10*6/uL 4.2-5.4 [facility] Work Phone: Blood hemoglobin measurement (mass/volume)on 04-14-2021 Hemoglobin (Bld) [Mass/Vol] 12.0 g/dL 12.0-15.0 [facility] Work Phone: Blood lymphocytes/100 leukoc yteson 04-14-2021 Lymphocytes/100 WBC (Bld) 30.3 % 19-41 [facility] Work Phone: Blood monocytes/100 leukocyt eson 04-14-2021 Monocytes/100 WBC (Bld) 9.0 % 0-10 [facility] Work Phone: Blood platelet mean volumeon 04-14-2021 Platelet mean volume (Bld) [Entitic vol] 10.9 fL 6.2-12.0 [facility] Work Phone: Determination of erythrocyte mean corpuscular volume (MCV)on 04-14-2021 MCV (RBC) [Entitic vol] 82.2 fL 81-99 [facility] Work Phone: Erythrocyte sedimentation ra david 04-14-2021 ESR (Bld) [Velocity] 37 mm/h 0-30 [facility]: Gram stain for investigation of transfusion reactionon 04-14-2021 Microscopic observation Gram stain Nom (Unsp spec) [facility] Work Phone: Hematocrit Auto (Bld) [Volum e fraction]on 04-14-2021 Hematocrit (Bld) [Volume fraction] 38.3 % 37-47 [facility] Work Phone: Laboratory - Chemistry and C hemistry - challengeon 04-14-2021 CO2 [Moles/Vol] 29.0 mmol/L 21.0-32.0 [facility] Work Phone: Urea nitrogen/Creatinine [Mass ratio] 19.8 mg/mg 10-20 [facility] Work Phone: Laboratory - Hematology and Cell countson 04-14-2021 Erythrocyte distribution width (RBC) [Entitic vol] 40.5 fL 35.1-43.9 [facility] Work Phone: Erythrocyte distribution width (RBC) [Ratio] 13.7 % 11.6-14.6 [facility] Work Phone: [phone] Immature granulocytes/100 WBC (Bld) 0.400 % 0.0-0.9 [facility] Work Phone: [phone] Comment on above: IG% - Immature Granu locytes (promyelocytes, myelocytes and metamyelocytes) > 1% indicates that a LEFT SHIFT is Present. MCH (RBC) [Entitic mass] 25.8 pg 27.0-32.0 [facility] Work Phone: Nucleated RBC/100 WBC (Bld) [Ratio] 0 % 0-5 [facility] Work Phone: [phone] Laboratory - Microbiology an d Antimicrobial susceptibilityon 04-14-2021 Bacteria identified Cx Nom (Bld) No growth in 5 days. [facility] Work Phone: MCHC Auto (RBC) [Mass/Vol]on 04-14-2021 MCHC (RBC) [Mass/Vol] 31.3 g/dL 32-36 [facility] Work Phone: No Panel Informationon 04-14 Estimated GFR (MDRD) Amer 70 mL/min >60 [facility] Work Phone: Comment on above: GFR Calc Estimated GFR (MDRD) Non-Af Amer 58 mL/min >60 [facility] Work Phone: Comment on above: Non- GFR Calc Methicillin-Resist S.aureus DNA PCR Positive Negative [facility] Work Phone: Thyroid Stimulating Hormone (TSH) 4.56 uIU/mL 0.358-3.74 [facility] Work Phone: Platelets bldon 04-14-2021 Platelets (Bld) [#/Vol] 305 10*3/uL 150-450 [facility] Work Phone: [phone] Serum or plasma C reactive p rotein measurement (mass/volume)on 04-14-2021 CRP [Mass/Vol] 13.60 mg/L 0.0-3.0 [facility] Work Phone: Comment on above: C-Reactive Protein ( CRP) provides useful information for thediagnosis, therapy and monitoring of inflammatory processesand associated diseases. For the evaluation of Relative Riskfor Cardiovascular Disease, a High Sensitivity CRP (HSCRP)should be ordered. Serum or plasma calcium thiago urement (mass/volume)on 04-14-2021 Calcium [Mass/Vol] 8.7 mg/dL 8.5-10.[address] [facility] Work Phone: [phone] Serum or plasma creatinine m easurement (mass/volume)on 04-14-2021 Creatinine [Mass/Vol] 1.06 mg/dL 0.55-1.02 [facility] Work Phone: Comment on above: The validity of the calculated GFR & GFRAA in patients over 70 years has not been determined. Clinical correlation is essential. Serum or plasma urea nitroge n measurement (mass/volume)on 04-14-2021 Urea nitrogen [Mass/Vol] 21 mg/dL 7-18 [facility] Work Phone: [phone] Staphylococcus aureus DNA de tection by probe and target amplification methodon 04-14-2021 S. aureus DNA EMILY+probe Ql (Unsp spec) Positive Negative [facility] Work Phone: [phone] Thin prep Papanicolaou smear with manual screeningon 04-14-2021 Thin prep Papanicolaou smear with manual screening 6 5-15 [facility] Work Phone: [phone] Absolute lymphocyte counton 03-10-2021 Lymphocytes Auto (Unsp spec) [#/Vol] 4.46 10*3/uL 0.83-4.51 [facility] Work Phone: [phone] Basophil percentageon 2020 Bilirubin [Mass/Vol] 0.60 mg/dL 0.20-1.00 [facility] Work Phone: Comment on above: For patients on eltr ombopag therapy, use of Dimension [place] TBIL is not recommended. Chloride [Moles/Vol] 101 mmol/L 98-107 [facility] Work Phone: Eosinophils/100 WBC (Bld) 1.5 % 0-5 [facility] Work Phone: Glucose [Mass/Vol] 272 mg/dL 74-[address] [facility] Work Phone: Comment on above: Glucose result great er than or equal to 200 mg/dLsuggests DIABETES MELLITUS per A.D.A. criteria.Please note revised GLUCOSE reference range effective 2017. Neutrophils (Bld) [#/Vol] 6.7 10*3/uL 2.0-7.7 [facility] Work Phone: Potassium [Moles/Vol] 3.9 mmol/L 3.5-5.1 [facility] Work Phone: Protein [Mass/Vol] 7.8 g/dL 6.4-8.[address] [facility] Work Phone: Sodium [Moles/Vol] 138 mmol/L 136-[address] [facility] Work Phone: WBC (Bld) [#/Vol] 12.5 10*3/uL 4.4-11.0 [facility] Work Phone: Blood erythrocytes count (nu mber/volume)on 03-10-2021 RBC (Bld) [#/Vol] 4.98 10*6/uL 4.2-5.4 [facility] Work Phone: Blood hemoglobin measurement (mass/volume)on 03-10-2021 Hemoglobin (Bld) [Mass/Vol] 13.1 g/dL 12.0-15.0 [facility] Work Phone: Blood lymphocytes/100 leukoc yteson 03-10-2021 Lymphocytes/100 WBC (Bld) 35.8 % 19-41 [facility] Work Phone: Blood monocytes/100 leukocyt eson 03-10-2021 Monocytes/100 WBC (Bld) 7.5 % 0-10 [facility] Work Phone: Blood platelet mean volumeon 03-10-2021 Platelet mean volume (Bld) [Entitic vol] 10.1 fL 6.2-12.0 [facility] Work Phone: Determination of erythrocyte mean corpuscular volume (MCV)on 03-10-2021 MCV (RBC) [Entitic vol] 79.5 fL 81-99 [facility] Work Phone: Hematocrit Auto (Bld) [Volum e fraction]on 03-10-2021 Hematocrit (Bld) [Volume fraction] 39.6 % 37-47 [facility] Work Phone: Laboratory - Chemistry and C hemistry - challengeon 03-10-2021 ALP [Catalytic activity/Vol] 67 U/L 45-117 [facility] Work Phone: ALT [Catalytic activity/Vol] 82 U/L 13-56 [facility] Work Phone: CO2 [Moles/Vol] 28.0 mmol/L 21.0-32.0 [facility] Work Phone: Globulin (S) [Mass/Vol] 4.3 g/dL 2.2-4.2 [facility] Work Phone: Urea nitrogen/Creatinine [Mass ratio] 18.6 mg/mg 10-20 [facility] Work Phone: Laboratory - Hematology and Cell countson 03-10-2021 Basophils/100 WBC (Unsp spec) 0.5 % 0-1 [facility] Work Phone: Erythrocyte distribution width (RBC) [Entitic vol] 39.1 fL 35.1-43.9 [facility] Work Phone: Erythrocyte distribution width (RBC) [Ratio] 13.7 % 11.6-14.6 [facility] Work Phone: Immature granulocytes/100 WBC (Bld) 0.900 % 0.0-0.9 [facility] Work Phone: Comment on above: IG% - Immature Granu locytes (promyelocytes, myelocytes and metamyelocytes) > 1% indicates that a LEFT SHIFT is Present. MCH (RBC) [Entitic mass] 26.3 pg 27.0-32.0 [facility] Work Phone: [phone] Neutrophils/100 WBC (Bld) 53.8 % 47-70 [facility] Work Phone: [phone] Nucleated RBC/100 WBC (Bld) [Ratio] 0 % 0-5 [facility] Work Phone: [phone] MCHC Auto (RBC) [Mass/Vol]on 03-10-2021 MCHC (RBC) [Mass/Vol] 33.1 g/dL 32-36 [facility] Work Phone: No Panel Informationon 03-10 Estimated GFR (MDRD) Amer 74 mL/min >60 [facility] Work Phone: Comment on above: GFR Calc Estimated GFR (MDRD) Non-Af Amer 61 mL/min >60 [facility] Work Phone: Comment on above: Non- GFR Calc Thyroid Stimulating Hormone (TSH) 4.63 uIU/mL 0.358-3.74 [facility] Work Phone: Platelets bldon 03-10-2021 Platelets (Bld) [#/Vol] 283 10*3/uL 150-450 [facility] Work Phone: Serum or plasma albumin thiago urement (mass/volume)on 03-10-2021 Albumin [Mass/Vol] 3.5 g/dL 3.2-5.[address] [facility] Work Phone: [phone] Serum or plasma albumin/glob ulin mass ratioon 03-10-2021 Albumin/Globulin [Mass ratio] 0.8 {ratio} 0.9-2.4 [facility] Work Phone: [phone] Serum or plasma calcium thiago urement (mass/volume)on 12-15-2021 Calcium [Mass/Vol] 9.9 mg/dL 8.5-10.[address] [facility] Work Phone: Serum or plasma creatinine m easurement (mass/volume)on 03-10-2021 Creatinine [Mass/Vol] 1.02 mg/dL 0.55-1.02 [facility] Work Phone: Comment on above: The validity of the calculated GFR & GFRAA in patients over 70 years has not been determined. Clinical correlation is essential. Serum or plasma urea nitroge n measurement (mass/volume)on 03-10-2021 Urea nitrogen [Mass/Vol] 19 mg/dL 7-18 [facility] Work Phone: Thin prep Papanicolaou smear with manual screeningon 03-10-2021 Thin prep Papanicolaou smear with manual screening 41 U/L 15-37 [facility] Work Phone: Thin prep Papanicolaou smear with manual screening 9 -15 [facility] Work Phone: Otheron 09-19-2006 CONVERTED ELECTRONIC SIGNATURE KIANA THOMAS M.D., PATHOLOGIST (Electronic signature on file) Final Signed Out: 09/19/2006 09:15 [facility] CONVERTED FINAL DIAGNOSIS A&B. RIGHT AND LEFT FALLOPIAN TUBES, PARTIAL EXCISION - TWO SEGMENTS OF UNREMARKABLE FALLOPIAN TUBE, EACH TOTALLY TRANSECTED. C. PLACENTA, MEMBRANES AND UMBILICAL CORD, DELIVERY - ECCENTRIC INSERTION OF UMBILICAL CORD. NO HISTOLOGIC ABNORMALITIES IDENTIFIED. [facility] CONVERTED ORDERING PROVIDER Ordering Provider: FRANSISCO SPARKS [facility] Culture, urine Bacteria identified Cx Nom (U) Escherichia coli [facility] Work Phone: Bacteria identified Cx Nom (U) Mixed Gram Pos & Gram Neg Org [facility] Work Phone: Bacteria identified Cx Nom (U) Positive [facility] Work Phone: Laboratory - Microbiology an d Antimicrobial susceptibility Bacteria identified Cx Nom (Bld) No growth in 5 days. [facility] Work Phone: No Panel Information Respiratory Panel (PCR) [facility] Work Phone: SARS-CoV-2 & FLU Antigen (Rapid) [facility] Work Phone: Vital Signs Date Time Vital Sign Value Performing Clinician Facility 10-21-2024 08:40-0400 Body height 170.[address] Phu Espinoza MD Work Phone: [facility] 10-21-2024 08:40-0400 Body mass index (BMI) [Ratio] 44.9 kg/m2 Dr. Phu Espinoza MD Work Phone: [phone] [place] [address] 10-21-2024 08:40-0400 Body weight 130.[address] Phu Espinoza MD Work Phone: [phone] [address] 10-21-2024 08:40-0400 Diastolic blood pressure 80 mm[Hg] Dr. Phu Espinoza MD Work Phone: [phone] [place] [address] 10-21-2024 08:40-0400 Heart rate 70 /min Dr. Phu Espinoza MD Work Phone: [phone] [place] [address] 10-21-2024 08:40-0400 Respiratory rate 16 /min Dr. Phu Espinoza MD Work Phone: [facility] 10-21-2024 08:40-0400 SaO2% (BldA) [Mass fraction] 98 % Dr. Phu Espinoza MD Work Phone: [facility] 10-21-2024 08:40-0400 Systolic blood pressure 128 mm[Hg] Dr. Phu Espinoza MD Work Phone: [facility] 10-07-2024 16:16-0400 Body temperature 97.7 [degF] Dr. Phu Espinoza MD Work Phone: [facility] 10-07-2024 16:16-0400 Diastolic blood pressure 58 mm[Hg] Dr. Phu Espinoza MD Work Phone: [facility] 10-07-2024 16:16-0400 Heart rate 72 /min Dr. Phu Espinoza MD Work Phone: [facility] 10-07-2024 16:16-0400 Respiratory rate 14 /min Dr. Phu Espinoza MD Work Phone: [facility] 10-07-2024 16:16-0400 SaO2% (BldA) [Mass fraction] 96 % Dr. Phu Espinoza MD Work Phone: [facility] 10-07-2024 16:16-0400 Systolic blood pressure 114 mm[Hg] Dr. Phu Espinoza MD Work Phone: [phone] [place] [address] 10-07-2024 16:08-0400 Body temperature 97.7 [degF] Dr. Phu Espinoza MD Work Phone: [phone] [address] [place] [address] 10-07-2024 16:08-0400 Diastolic blood pressure 58 mm[Hg] Dr. Phu Espinoza MD Work Phone: 3(152)099-153163 [place] [address] 10-07-2024 16:08-0400 Heart rate 72 /min Dr. Phu Espinoza MD Work Phone: 8(010)559-319463 [place] [address] 10-07-2024 16:08-0400 Respiratory rate 14 /min Dr. Phu Espinoza MD Work Phone: 0(630)400-051463 [place] [address] 10-07-2024 16:08-0400 SaO2% (BldA) [Mass fraction] 96 % Dr. Phu Espinoza MD Work Phone: 1(699)505-367082 [place] [address] 10-07-2024 16:08-0400 Systolic blood pressure 114 mm[Hg] Dr. Phu Espinoza MD Work Phone: 1(426)959-972963 [place] [address] 10-07-2024 08:10-0400 Inhaled oxygen flow rate 2 L/min Dr. Phu Espinoza MD Work Phone: 9(976)148-734982 [place] [address] 10-05-2024 21:47-0400 Body height 170.[address] Phu Espinoza MD Work Phone: 2(953)407-334063 [place] [address] 10-05-2024 21:47-0400 Body mass index (BMI) [Ratio] 45.1 kg/m2 Dr. Phu Espinoza MD Work Phone: 4(397)212-852263 [place] [address] 10-05-2024 21:47-0400 Body weight 130.[address] Phu Espinoza MD Work Phone: [facility] 10-05-2024 21:11-0400 Body temperature 98.8 [degF] Dr. Phu Espinoza MD Work Phone: [facility] 10-05-2024 21:11-0400 Diastolic blood pressure 65 mm[Hg] Dr. Phu Espinoza MD Work Phone: 5(842)153-087382 [place] [address] 10-05-2024 21:11-0400 Heart rate 88 /min Dr. Phu Espinoza MD Work Phone: 3(156)296-408482 [place] [address] 10-05-2024 21:11-0400 Respiratory rate 22 /min Dr. Phu Espinoza MD Work Phone: 9(827)499-902082 [place] [address] 10-05-2024 21:11-0400 SaO2% (BldA) [Mass fraction] 93 % Dr. Phu Espinoza MD Work Phone: 3(247)658-715382 [place] [address] 10-05-2024 21:11-0400 Systolic blood pressure 135 mm[Hg] Dr. Phu Espinoza MD Work Phone: 4(339)419-485982 [place] [address] 10-05-2024 19:25-0400 Body mass index (BMI) [Ratio] 45.6 kg/m2 Dr. Phu Espinoza MD Work Phone: [facility] 10-05-2024 19:25-0400 Body weight [address] Phu Espinoza MD Work Phone: 4(322)389-448282 [place] [address] 10-05-2024 19:13-0400 Body height 170.[address] Phu Espinoza MD Work Phone: 1(922)405-815182 [place] [address] 05-02-2024 11:40-0500 Body height 170.[address] Phu Espinoza MD Work Phone: 8(583)486-244482 [place] [address] 05-02-2024 11:40-0500 Body mass index (BMI) [Ratio] 45.4 kg/m2 Dr. Phu Espinoza MD Work Phone: 7(789)983-101282 [place] [address] 05-02-2024 11:40-0500 Body weight 131.[address] Phu Espinoza MD Work Phone: [facility] 05-02-2024 11:40-0500 Diastolic blood pressure 81 mm[Hg] Dr. Phu Espinoza MD Work Phone: 2(920)020-885282 [place] [address] 05-02-2024 11:40-0500 Heart rate 75 /min Dr. Phu Espinoza MD Work Phone: 0(659)970-603363 [place] [address] 05-02-2024 11:40-0500 SaO2% (BldA) [Mass fraction] 97 % Dr. Phu Espinoza MD Work Phone: 6(029)192-398882 [place] [address] 05-02-2024 11:40-0500 Systolic blood pressure 134 mm[Hg] Dr. Phu Espinoza MD Work Phone: 8(731)626-538763 [place] [address] 03-22-2024 13:42-0500 Body mass index (BMI) [Ratio] 45.4 kg/m2 Dr. Phu Espinoza MD Work Phone: 3(242)697-452663 [place] [address] 03-22-2024 13:42-0500 Body temperature 97.3 [degF] Dr. Phu Espinoza MD Work Phone: 1(325)217-042163 [place] [address] 03-22-2024 13:42-0500 Body weight 131.[address] Phu Espinoza MD Work Phone: 9(073)721-598563 [place] [address] 03-22-2024 13:42-0500 Diastolic blood pressure 79 mm[Hg] Dr. Phu Espinoza MD Work Phone: 8(604)036-913063 [place] [address] 03-22-2024 13:42-0500 Heart rate 85 /min Dr. Phu Espinoza MD Work Phone: 4(092)521-869682 [place] [address] 03-22-2024 13:42-0500 Respiratory rate 18 /min Dr. Phu Espinoza MD Work Phone: 3(436)464-336582 [place] [address] 03-22-2024 13:42-0500 SaO2% (BldA) [Mass fraction] 96 % Dr. Phu Espinoza MD Work Phone: 8(798)355-342582 [place] [address] 03-22-2024 13:42-0500 Systolic blood pressure 122 mm[Hg] Dr. Phu Espinoza MD Work Phone: [facility] 03-13-2023 08:55-0500 Body temperature 97.8 [degF] Dr. Phu Espinoza Work Phone: [facility] 03-13-2023 08:55-0500 Diastolic blood pressure 76 mm[Hg] Dr. Phu Espinoza Work Phone: 4(944)511-908782 [place] [address] 03-13-2023 08:55-0500 Heart rate 74 /min Dr. Phu Espinoza Work Phone: 2(980)134-132163 [place] [address] 03-13-2023 08:55-0500 Respiratory rate 16 /min Dr. Phu Espinoza Work Phone: 5(128)969-547882 [place] [address] 03-13-2023 08:55-0500 SaO2% (BldA) [Mass fraction] 97 % Dr. Phu Espinoza Work Phone: 9(691)462-977463 [place] [address] 03-13-2023 08:55-0500 Systolic blood pressure 110 mm[Hg] Dr. Phu Espinoza Work Phone: 3(148)788-937682 [place] [address] 03-13-2023 07:08-0500 Body height 170.[address] Phu Espinoza Work Phone: 5(359)798-136363 [place] [address] 03-13-2023 07:08-0500 Body mass index (BMI) [Ratio] 43.4 kg/m2 Dr. Phu Espinoza Work Phone: 0(643)393-564863 [place] [address] 03-13-2023 07:08-0500 Body weight [address] Phu Espinoza Work Phone: 9(259)272-838463 [place] [address] 03-02-2023 11:10-0500 Body height 170.[address] Phu Espinoza Work Phone: 9(493)839-426763 [place] [address] 03-02-2023 11:10-0500 Body mass index (BMI) [Ratio] 44.1 kg/m2 Dr. Phu Espinoza Work Phone: 7(582)431-186982 [place] [address] 03-02-2023 11:10-0500 Body temperature 98.6 [degF] Dr. Phu Espinoza Work Phone: 6(652)340-677863 [place] [address] 03-02-2023 11:10-0500 Body weight 127.[address] Phu Espinoza Work Phone: [facility] 03-02-2023 11:10-0500 Diastolic blood pressure 91 mm[Hg] Dr. Phu Espinoza Work Phone: [facility] 03-02-2023 11:10-0500 Heart rate 87 /min Dr. Phu Espinoza Work Phone: [facility] 03-02-2023 11:10-0500 SaO2% (BldA) [Mass fraction] 95 % Dr. Phu Espinoza Work Phone: [facility] 03-02-2023 11:10-0500 Systolic blood pressure 154 mm[Hg] Dr. Phu Espinoza Work Phone: [facility] 02-15-2023 14:17-0500 Body mass index (BMI) [Ratio] 43.4 kg/m2 Dr. Phu Espinoza Work Phone: [facility] 02-15-2023 14:17-0500 Body weight 125.[address] Phu Espinoza Work Phone: 8(754)677-099182 [place] [address] 02-15-2023 14:17-0500 Diastolic blood pressure 75 mm[Hg] Dr. Phu Espinoza Work Phone: [facility] 02-15-2023 14:17-0500 Respiratory rate 18 /min Dr. Phu Espinoza Work Phone: [facility] 02-15-2023 14:17-0500 Systolic blood pressure 114 mm[Hg] Dr. Phu Espinoza Work Phone: [facility] 11-17-2022 10:41-0400 Body height 171.[address] Phu Espinoza Work Phone: [facility] 11-17-2022 10:41-0400 Body mass index (BMI) [Ratio] 42.8 kg/m2 Dr. Phu Espinoza Work Phone: [facility] 11-17-2022 10:41-0400 Body temperature 98.4 [degF] Dr. Phu Espinoza Work Phone: [facility] 11-17-2022 10:41-0400 Body weight 125.[address] Phu Espinoza Work Phone: [facility] 11-17-2022 10:41-0400 Diastolic blood pressure 78 mm[Hg] Dr. Phu Espinoza Work Phone: [facility] 11-17-2022 10:41-0400 Heart rate 74 /min Dr. Phu Espinoza Work Phone: 2(020)965-450582 [place] [address] 11-17-2022 10:41-0400 Respiratory rate 18 /min Dr. Phu Espinoza Work Phone: 1(085)411-674582 [place] [address] 11-17-2022 10:41-0400 SaO2% (BldA) [Mass fraction] 98 % Dr. Phu Espinoza Work Phone: 4(597)520-265482 [place] [address] 11-17-2022 10:41-0400 Systolic blood pressure 112 mm[Hg] Dr. Phu Espinoza Work Phone: 3(052)438-972482 [place] [address] 08-17-2022 09:18-0400 Body height 171.[address] Phu Espinoza Work Phone: 9(872)198-878463 [place] [address] 08-17-2022 09:18-0400 Body mass index (BMI) [Ratio] 42.6 kg/m2 Dr. Phu Espinoza Work Phone: 5(779)198-659582 [place] [address] 08-17-2022 09:18-0400 Body temperature 98.4 [degF] Dr. Phu Espinoza Work Phone: [facility] 08-17-2022 09:18-0400 Body weight 125.[address] Phu Espinoza Work Phone: 4(092)649-719582 [place] [address] 08-17-2022 09:18-0400 Diastolic blood pressure 69 mm[Hg] Dr. Phu Espinoza Work Phone: 1(374)595-403082 [place] [address] 08-17-2022 09:18-0400 Heart rate 90 /min Dr. Phu Espinoza Work Phone: 0(343)138-439776 [address] [place], [place] [address] 09:18-0400 Respiratory rate 20 /min Dr. Phu Espinoza Work Phone: [facility] 08-17-2022 09:18-0400 SaO2% (BldA) [Mass fraction] 94 % Dr. Phu Espinoza Work Phone: [facility] 08-17-2022 09:18-0400 Systolic blood pressure 100 mm[Hg] Dr. Phu Espinoza Work Phone: 5(509)298-582982 [place] [address] 05-11-2022 10:40-0500 Body height 171.[address] Phu Espinoza Work Phone: 1(895)422-474963 [place] [address] 05-11-2022 10:40-0500 Body mass index (BMI) [Ratio] 41.2 kg/m2 Dr. Phu Espinoza Work Phone: 9(268)822-596382 [place] [address] 05-11-2022 10:40-0500 Body temperature 97 [degF] Dr. Phu Espinoza Work Phone: 6(364)337-364882 [place] [address] 05-11-2022 10:40-0500 Body weight 121.[address] Phu Espinoza Work Phone: 7(974)463-066682 [place] [address] 05-11-2022 10:40-0500 Diastolic blood pressure 68 mm[Hg] Dr. Phu Espinoza Work Phone: 6(322)150-732682 [place] [address] 05-11-2022 10:40-0500 Heart rate 76 /min Dr. Phu Espinoza Work Phone: 2(529)087-083282 [place] [address] 05-11-2022 10:40-0500 Respiratory rate 18 /min Dr. Phu Espinoza Work Phone: [facility] 05-11-2022 10:40-0500 SaO2% (BldA) [Mass fraction] 94 % Dr. Phu Espinoza Work Phone: [facility] 05-11-2022 10:40-0500 Systolic blood pressure 96 mm[Hg] Dr. Phu Espinoza Work Phone: 1(167)320-012182 [place] [address] 03-29-2022 10:32-0500 Body temperature 98 [degF] Dr. Phu Espinoza Work Phone: [facility] 03-29-2022 10:32-0500 Diastolic blood pressure 90 mm[Hg] Dr. Phu Espinoza Work Phone: [facility] 03-29-2022 10:32-0500 Heart rate 85 /min Dr. Phu Espinoza Work Phone: [facility] 03-29-2022 10:32-0500 Respiratory rate 20 /min Dr. Phu Espinoza Work Phone: [facility] 03-29-2022 10:32-0500 SaO2% (BldA) [Mass fraction] 99 % Dr. Phu Espinoza Work Phone: [facility] 03-29-2022 10:32-0500 Systolic blood pressure 130 mm[Hg] Dr. Phu Espinoza Work Phone: [facility] 03-25-2022 16:55-0500 Body mass index (BMI) [Ratio] 41.3 kg/m2 Dr. Phu Espinoza Work Phone: [facility] 03-25-2022 16:55-0500 Body temperature 98.2 [degF] Dr. Phu Espinoza Work Phone: [facility] 03-25-2022 16:55-0500 Body weight 121.[address] Phu Espinoza Work Phone: [facility] 03-25-2022 16:55-0500 Diastolic blood pressure 82 mm[Hg] Dr. Phu Espinoza Work Phone: [facility] 03-25-2022 16:55-0500 Heart rate 86 /min Dr. Phu Espinoza Work Phone: [facility] 03-25-2022 16:55-0500 Respiratory rate 18 /min Dr. Phu Espinoza Work Phone: [facility] 03-25-2022 16:55-0500 SaO2% (BldA) [Mass fraction] 99 % Dr. Phu Espinoza Work Phone: [facility] 03-25-2022 16:55-0500 Systolic blood pressure 128 mm[Hg] Dr. Phu Espinoza Work Phone: [facility] 02-05-2022 16:25-0500 Body temperature 98.4 [degF] Dr. Phu Espinoza Work Phone: [facility] Work Phone: 02-05-2022 16:25-0500 Diastolic blood pressure 70 mm[Hg] Dr. Phu Espinoza Work Phone: [facility] Work Phone: 02-05-2022 16:25-0500 Heart rate 70 /min Dr. Phu Espinoza Work Phone: [facility] Work Phone: 02-05-2022 16:25-0500 Respiratory rate 18 /min Dr. Phu Espinoza Work Phone: [facility] Work Phone: 02-05-2022 16:25-0500 SaO2% (BldA) [Mass fraction] 97 % Dr. Phu Espinoza Work Phone: [facility] Work Phone: 02-05-2022 16:25-0500 Systolic blood pressure 122 mm[Hg] Dr. Phu Espinoza Work Phone: [facility] Work Phone: 02-05-2022 06:00-0500 Body weight 117.[address] Phu Espinoza Work Phone: [facility] Work Phone: 02-04-2022 13:05-0500 Body height 170.[address] Phu Espinoza Work Phone: [facility] Work Phone: 02-03-2022 23:14-0500 Body mass index (BMI) [Ratio] 40.9 kg/m2 Dr. Phu Espinoza Work Phone: [facility] Work Phone: 02-03-2022 22:03-0500 Body temperature 100.8 [degF] Dr. Phu Espinoza Work Phone: [facility] Work Phone: 02-03-2022 22:03-0500 Diastolic blood pressure 76 mm[Hg] Dr. Phu Espinoza Work Phone: [facility] Work Phone: 02-03-2022 22:03-0500 Heart rate 100 /min Dr. Phu Espinoza Work Phone: [facility] Work Phone: 02-03-2022 22:03-0500 Respiratory rate 20 /min Dr. Phu Espinoza Work Phone: [facility] Work Phone: 02-03-2022 22:03-0500 SaO2% (BldA) [Mass fraction] 96 % Dr. Phu Espinoza Work Phone: [facility] Work Phone: 02-03-2022 22:03-0500 Systolic blood pressure 118 mm[Hg] Dr. Phu Espinoza Work Phone: [facility] Work Phone: 02-03-2022 18:47-0500 Body height 170.[address] Phu Espinoza Work Phone: [facility] Work Phone: 02-03-2022 18:47-0500 Body mass index (BMI) [Ratio] 39.1 kg/m2 Dr. Phu Espinoza Work Phone: [facility] Work Phone: 02-03-2022 18:47-0500 Body weight 113.[address] Phu Espinoza Work Phone: [facility] Work Phone: 11-24-2021 11:48-0400 Body mass index (BMI) [Ratio] 39.8 kg/m2 Dr. Phu Espinoza Work Phone: [facility] Work Phone: 11-24-2021 11:48-0400 Body weight 117.[address] Phu Espinoza Work Phone: [facility] Work Phone: 11-24-2021 11:48-0400 Diastolic blood pressure 80 mm[Hg] Dr. Phu Espinoza Work Phone: [facility] Work Phone: 11-24-2021 11:48-0400 Heart rate 72 /min Dr. Phu Espinoza Work Phone: [facility] Work Phone: 11-24-2021 11:48-0400 Respiratory rate 16 /min Dr. Phu Espinoza Work Phone: [facility] Work Phone: 11-24-2021 11:48-0400 SaO2% (BldA) [Mass fraction] 98 % Dr. Phu Espinoza Work Phone: [facility] Work Phone: 11-24-2021 11:48-0400 Systolic blood pressure 122 mm[Hg] Dr. Phu Espinoza Work Phone: [facility] Work Phone: 08-09-2021 10:43-0400 Body height 171.[address] Phu Espinoza Work Phone: [facility] Work Phone: 08-09-2021 10:43-0400 Body mass index (BMI) [Ratio] 42 kg/m2 Dr. Phu Espinoza Work Phone: [facility] Work Phone: 08-09-2021 10:43-0400 Body temperature 94.5 [degF] Dr. Phu Espinoza Work Phone: [facility] Work Phone: 08-09-2021 10:43-0400 Body weight 123.[address] Phu Espinoza Work Phone: [facility] Work Phone: 08-09-2021 10:43-0400 Diastolic blood pressure 76 mm[Hg] Dr. Phu Espinoza Work Phone: [facility] Work Phone: 08-09-2021 10:43-0400 Heart rate 71 /min Dr. Phu Espinoza Work Phone: [facility] Work Phone: 08-09-2021 10:43-0400 Respiratory rate 16 /min Dr. Phu Espinoza Work Phone: [facility] Work Phone: 08-09-2021 10:43-0400 SaO2% (BldA) [Mass fraction] 97 % Dr. Phu Espinoza Work Phone: [facility] Work Phone: 08-09-2021 10:43-0400 Systolic blood pressure 110 mm[Hg] Dr. Phu Espinoza Work Phone: [facility] Work Phone: 08-09-2021 10:43-0400 Body height 171.[address] Phu Espinoza Work Phone: [facility] Work Phone: 08-09-2021 10:43-0400 Body mass index (BMI) [Ratio] 42 kg/m2 Dr. Phu Espinoza Work Phone: [facility] Work Phone: 08-09-2021 10:43-0400 Body temperature 94.5 [degF] Dr. Phu Espinoza Work Phone: [facility] Work Phone: 08-09-2021 10:43-0400 Body weight 123.[address] Phu Espinoza Work Phone: [facility] Work Phone: 08-09-2021 10:43-0400 Diastolic blood pressure 76 mm[Hg] Dr. Phu Espinoza Work Phone: [facility] Work Phone: 08-09-2021 10:43-0400 Heart rate 71 /min Dr. Phu Espinoza Work Phone: [facility] Work Phone: 08-09-2021 10:43-0400 Respiratory rate 16 /min Dr. Phu Espinoza Work Phone: [facility] Work Phone: 08-09-2021 10:43-0400 SaO2% (BldA) [Mass fraction] 97 % Dr. Phu Espinoza Work Phone: [facility] Work Phone: 08-09-2021 10:43-0400 Systolic blood pressure 110 mm[Hg] Dr. Phu Espinoza Work Phone: [facility] Work Phone: 06-09-2021 13:46-0400 Body height 171.[address] Phu Espinoza Work Phone: [facility] Work Phone: 06-09-2021 13:46-0400 Body mass index (BMI) [Ratio] 43.7 kg/m2 Dr. Phu Espinoza Work Phone: [facility] Work Phone: 06-09-2021 13:46-0400 Body temperature 96.5 [degF] Dr. Phu Espinoza Work Phone: [facility] Work Phone: 06-09-2021 13:46-0400 Body weight 128.[address] Phu Espinoza Work Phone: [facility] Work Phone: 06-09-2021 13:46-0400 Diastolic blood pressure 88 mm[Hg] Dr. Phu Espinoza Work Phone: [facility] Work Phone: 06-09-2021 13:46-0400 Heart rate 87 /min Dr. Phu Espinoza Work Phone: [facility] Work Phone: 06-09-2021 13:46-0400 Respiratory rate 18 /min Dr. Phu Espinoza Work Phone: [facility] Work Phone: 06-09-2021 13:46-0400 SaO2% (BldA) [Mass fraction] 98 % Dr. Phu Espinoza Work Phone: [facility] Work Phone: 06-09-2021 13:46-0400 Systolic blood pressure 140 mm[Hg] Dr. Phu Espinoza Work Phone: [facility] Work Phone: 05-13-2021 07:19-0500 Body mass index (BMI) [Ratio] 45.2 kg/m2 Dr. Phu Espinoza Work Phone: [facility] Work Phone: 05-13-2021 07:19-0500 Body temperature 96.7 [degF] Dr. Phu Espinoza Work Phone: [facility] Work Phone: 05-13-2021 07:19-0500 Body weight 132.[address] Phu Espinoza Work Phone: [facility] Work Phone: 05-13-2021 07:19-0500 Diastolic blood pressure 88 mm[Hg] Dr. Phu Espinoza Work Phone: [facility] Work Phone: 05-13-2021 07:19-0500 Heart rate 93 /min Dr. Phu Espinoza Work Phone: [facility] Work Phone: 05-13-2021 07:19-0500 Respiratory rate 18 /min Dr. Phu Espinoza Work Phone: [facility] Work Phone: 05-13-2021 07:19-0500 SaO2% (BldA) [Mass fraction] 96 % Dr. Phu Espinoza Work Phone: [facility] Work Phone: 05-13-2021 07:19-0500 Systolic blood pressure 140 mm[Hg] Dr. Phu Espinoza Work Phone: [facility] Work Phone: Encounters Encounter Date Encounter Type Care Provider Facility Start: 11-19-[address] [facility] Facility:[facility] Start: 10-21-2024 End: 10-21-[address] Phu Espinoza MD Work Phone: -[facility] Start: 10-21-2024 End: 10-21-[address] Jodi Agee MD -[facility] Work Phone: Start: 10-16-2024 End: 10-16-[address] Phu Espinoza MD Work Phone: -[facility]y [facility] 3rd Flr Start: 10-16-2024 End: 10-16-[address] Phu Espinoza MD -Laboratory Phy [facility] 3rd Flr Start: 10-16-2024 End: 10-16-2024 ambulatory Phu Jovan Alexis Facility:[facility] Start: 10-11-2024 End: 10-11-[address] Phu Espinoza MD Work Phone: -Laboratory Specimen Start: 10-11-2024 End: 10-11-[address] Phu Espinoza MD -Laboratory Specimen Work Phone: Start: 10-10-2024 End: 10-11-[address] Phu Espinoza MD Work Phone: -Laboratory Phy Office 3rd Flr Start: 10-10-2024 End: 10-10-[address] Phu Espinoza MD -Laboratory Phy Office 3rd Flr Start: 10-10-2024 End: 10-10-[address] [facility] Facility:[facility] Start: 10-07-2024 Non-patient / Non-visit Dr. Dk DICKENS -[facility] Start: 10-07-[address] [facility] [address] [facility] Facility:[facility] Start: 10-07-2024 Non-patient / Non-visit Dr. Ronda espinal MD -[facility] Start: 10-07-2024 Non-patient / Non-visit Dr. Octavio cummings MD -[facility] Work Phone: Start: 10-06-2024 Non-patient / Non-visit Dr. Kateryna Gomez MD -[facility] Work Phone: Start: 10-05-2024 End: 10-07-2024 ambulatory Junior Rustdany Facility:[facility] Start: 10-05-2024 End: 10-07-2024 Evaluation and management of inpatient Dr. Junior Dunn DO -Progressive Care Unit Work Phone: Start: 10-05-2024 End: 10-07-[address] Phu Espinoza MD Work Phone: -[facility] Start: 07-03-2024 End: 07-03-[address] Phu Espinoza MD Work Phone: [facility] Work Phone: Start: 07-03-2024 End: 07-03-[address] Phu Espinoza MD -Laboratory Work Phone: Start: 07-03-2024 End: 07-03-2024 [facility] Start: 05-02-2024 End: 05-02-2024 Patient encounter procedure Massiel Gibbons NP-C -Laboratory Work Phone: Start: 05-02-2024 End: 05-02-2024 Patient encounter procedure Massiel Gibbons PARKING ATTENDANT-C -[facility] Work Phone: Start: 05-02-2024 End: 05-02-2024 ambulatory Phu Chi Alexis Facility:[facility] Start: 05-02-2024 End: 05-02-2024 ambulatory Phu Chi Alexis Facility:[facility] Start: 04-19-2024 End: 04-19-[address] Jodi Agee MD -Cat Scan, [facility] Work Phone: Start: 04-19-2024 End: 04-19-2024 ambulatory Phu Chi Alexis Facility:[facility] Start: 03-22-2024 End: 03-22-[address] Jodi Agee MD -[facility] Work Phone: Start: 03-22-2024 End: 03-22-2024 ambulatory Phu Chi Alexis Facility:[facility] Start: 03-04-2024 End: 03-04-2024 ambulatory Phu Chi Alexis Facility:[facility] Start: 02-17-2024 ambulatory Phu Chi Alexis Facility:[facility] Start: 02-16-2024 End: 02-16-2024 ambulatory Phu Chi Alexis Facility:[facility] Start: 01-31-2024 End: 01-31-2024 ambulatory Phu Chi Alexis Facility:[facility] Start: 01-24-2024 End: 01-24-2024 ambulatory Phu Chi Alexis Facility:[facility] Start: 01-10-2024 End: 01-10-2024 ambulatory Phu Chi Alexis Facility:[facility] Start: 11-01-2023 End: 11-01-2023 ambulatory Phu Chi Alexis Facility:[facility] Start: 06-22-2023 End: 06-22-[address] Phu Espinoza Work Phone: [facility] Work Phone: Start: 06-22-2023 End: 06-22-[address] Phu Espinoza Work Phone: [facility]-Radiology, [facility] Work Phone: Start: 04-03-2023 End: 04-03-[address] Phu Espinoza Work Phone: [facility] Work Phone: Start: 04-03-2023 End: 04-03-[address] Phu Espinoza Work Phone: [facility]-Laboratory, Phy Office 3rd Flr Start: 03-13-2023 Non-patient / Non-visit Dr. Sloan Espinoza Work Phone: [facility] Start: 03-13-2023 End: 03-13-2023 Admission to same day surgery center Dr. Phu Espinoza Work Phone: [facility]-Endoscopy Work Phone: Start: 03-13-2023 End: 03-13-[address] Phu Espinoza Work Phone: [facility] Work Phone: Start: 03-02-2023 End: 03-02-[address] Phu Espinoza Work Phone: [facility] Work Phone: Start: 03-02-2023 End: 03-02-[address] [facility] Start: 03-02-2023 End: 03-02-[address] Phu Espinoza Work Phone: [facility] Work Phone: Start: 02-15-2023 End: 02-15-[address] Phu Espinoza Work Phone: [facility] Work Phone: Start: 02-08-2023 End: 02-08-[address] Phu Espinoza Work Phone: [facility] Work Phone: Start: 02-08-2023 End: 02-08-[address] Ph[facility] Start: 01-11-2023 End: 01-11-[address] Phu Espinoza Work Phone: [facility] Work Phone: Start: 01-11-2023 End: 01-11-[address] Phu [facility]inoza [facility]: Start: 01-09-2023 End: 01-09-[address] Phu Espinoza Work Phone: [facility] Work Phone: Start: 01-09-2023 End: 01-09-[address] Phu Espinoza Work Phone: [facility], [facility] Office 3rd Flr Start: 01-03-2023 End: 01-03-[address] Phu Espinoza Work Phone: [facility], [facility] Office 3rd Flr Start: 11-17-2022 End: 11-17-[address] Phu Espinoza Work Phone: [facility] Work Phone: Start: 08-17-2022 End: 08-17-[address] Phu Espinoza Work Phone: [facility] Work Phone: Start: 08-17-2022 End: 08-17-[address] Phu Espinoza [facility] Start: 08-17-2022 End: 08-17-[address] Phu Espinoza Work Phone: [facility] Work Phone: Start: 06-28-2022 End: 06-28-[address] Phu Espinoza Work Phone: [facility] Work Phone: Start: 06-28-2022 End: 06-28-[address] Phu Espinoza [facility] Start: 05-11-2022 End: 05-11-[address] Phu Espinoza Work Phone: [facility] Start: 03-29-2022 End: 03-29-[address] Phu Espinoza Work Phone: [facility] Start: 03-25-2022 End: 03-25-[address] Phu Espinoza Work Phone: [facility] Start: 02-08-2022 End: 02-08-[address] Phu Espinoza Work Phone: [facility] Work Phone: Start: 02-08-2022 End: 02-08-[address] Phu Espinoza [facility] Start: 02-05-2022 Non-patient / Non-visit Dr. Sloan Espinoza Work Phone: [facility] Start: 02-04-2022 Non-patient / Non-visit Dr. Sloan Espinoza Work Phone: [facility] Start: 02-04-2022 Non-patient / Non-visit Dr. Sloan Espinoza Work Phone: [facility] Start: 02-03-2022 End: 02-05-2022 Evaluation and management of inpatient Dr. Phu Espinoza [facility] Start: 02-03-[address] Phu Espinoza Work Phone: [facility] Work Phone: Start: 12-21-2021 End: 12-21-[address] Phu Espinoza Work Phone: [facility], y Office 3rd Flr Start: 11-24-2021 End: 11-24-[address] Phu Espinoza Work Phone: [facility] Start: 10-20-2021 End: 10-20-[address] Phu Espinoaz Work Phone: [facility], [place] Start: 09-21-2021 End: 09-21-[address] Phu Espinoza Work Phone: [facility], [facility] Office 3rd Flr Start: 08-25-2021 End: 08-25-[address] Phu Espinoza Work Phone: [facility], y Office 3rd Flr Start: 08-09-2021 End: 08-09-[address] Phu Espinoza Work Phone: [facility] Start: 07-21-2021 End: 07-21-[address] Phu Espinoza Work Phone: [facility], [facility] Office 3rd Flr Start: 07-20-2021 End: 07-20-[address] Phu Espinoza Work Phone: [facility], y Office 3rd Flr Start: 07-19-2021 End: 07-19-[address] Phu Espinoza Work Phone: [facility], y Office 3rd Flr Start: 06-23-2021 End: 06-23-[address] Phu Espinoza Work Phone: [facility], y Office 3rd Flr Start: 06-09-2021 End: 06-09-[address] Phu Espinoza Work Phone: [facility], [place] Start: 05-18-2021 End: 05-18-[address] Phu Espinoza [facility] Start: 05-17-2021 End: 05-17-[address] Phu Espinoza [facility] Start: 05-13-2021 End: 05-13-[address] Phu Espinoza Work Phone: [facility] Start: 04-14-2021 End: 04-14-[address] Phu Espinoza [facility] Start: 03-10-[address] Phu Espinoza [facility] Phone[facility] Start: 09-14-2006 End: 09-14-2006 Patient encounter procedure Fransisco Sparks Work Phone: [facility] Start: 09-14-2006 Results Only Fransisco cherry Work Phone: [facility] Procedures Date Procedure Procedure Detail Performing Clinician Start: 10-11-2024 Measurement of occul t blood in stool specimen using immunoassay Dr. Phu Espinoza MD Work Phone: Start: 10-10-2024 Folic acid measurement, RBC Dr. Phu Espinoza MD Work Phone: Comment on above: Performed at: [address] [id number] Director: Spencer Carbajal PhD, Phone: [phone] Start: 10-10-2024 In-vitro immunologic test Dr. Phu Espinoza MD Work Phone: Comment on above: QuantiFERON-TB Gold Plus is a qualitative indirect test forM tuberculosis infection (including disease) and isintended for use in conjunction with risk assessment,radiography, and other medical and diagnostic evaluations.The QuantiFERON-TB Gold Plus result is determined bysubtracting the Nil value from either TB antigen (Ag)value. The Mitogen tube serves as a control for the test. No response to M tub erculosis antigens detected.Infection with M tuberculosis is unlikely, but high riskindividuals should be considered for additional testing(ATS/IDSA/CDC Clinical Practice Guidelines, 2017). Thereference range is an Antigen minus Nil result of <0.35IU/mL.The specimen received for QuantiFERON testing was incubatedby the ordering institution. Specific procedures outlinedin our Directory of Services and in the package insert forthe QuantiFERON Gold (In Tube) test must be followed toenable for proper stimulation of cells for the productionof interferon gamma. Chemiluminescence immunoassaymethodology Start: 10-10-2024 Total iron binding c apacity measurement Dr. Phu Espinoza MD Work Phone: Start: 10-10-2024 Urnls dip stick/tabl et reagent auto microscopy Dr. Phu Espinoza MD Work Phone: Start: 10-10-[address] Phu montanez MD Work Phone: Start: 10-10-[address] Phu montanez MD Work Phone: Start: 10-07-2024 Cardiovascular stres s test using pharmacologic stress agent Dr. Phu Espinoza MD Work Phone: Start: 10-07-[address] Phu Espinoza MD Work Phone: Start: 10-05-2024 End: 10-05-2024 D-dimer assay, quantitative Dr. Phu Espinoza MD Work Phone: Comment on above: NORMAL D-Dimer level (<0.50) indicates no DVT or PE. Start: 10-05-2024 Plain chest X-ray Dr. Samuel Espinoza MD Work Phone: Start: 10-05-[address] Phu Espinoza MD Work Phone: Start: 04-19-2024 CT of abdomen without contrast Dr. Phu Espinoza MD Work Phone: Start: 06-22-2023 Plain x-ray of pelvi s and lower extremity Dr. Phu Espinoza Work Phone: Start: 04-03-[address] Phu montanez Work Phone: Start: 03-13-[address] Phu ferris Work Phone: Start: 01-11-2023 Measurement of occul t blood in stool specimen using immunoassay Dr. Phu Espinoza Work Phone: Start: 02-04-2022 CT of abdomen without contrast Dr. Phu Espinoza Work Phone: [...] montanez Work Phone: Start: 05-18-2021 Investigation of tra nsfusion reaction Dr. Phu Espinoza Work Phone: Start: 05-18-2021 Microbial culture, routine Dr. Phu Espinoza Work Phone: Start: 05-17-2021 Bacteria identified in Blood by Culture Dr. Phu Espinoza Work Phone: Start: 04-14-2021 Bacteria identified in Blood by Culture Dr. Phu Espinoza Work Phone: Start: 04-14-2021 Investigation of tra nsfusion reaction Dr. Phu Espinoza Work Phone: Start: 04-14-2021 Microbial culture, routine Dr. Phu Espinoza Work Phone: Start: 02-19-2016 Mammography Fransisco ellison Start: 09-14-2006 CONVERTED SURGICAL PATHOLOGY Fransisco Sparks Work Phone: Bacteria identified in Blood by Culture Dr. Phu Espinoza Work Phone: Respiratory Panel (PCR) Dr. Phu Espinoza Work Phone: SARS-CoV-2 & FLU Antigen (Rapid) Dr. Phu Espinoza Work Phone: Urine culture Dr. Phu Espinoza Work Phone: Plan of Treatment Date Care Activity Detail Author Start: 10-10-2024 Folic acid measurement, RBC [facility] Start: 10-10-2024 In-vitro immunologic test [facility] Start: 10-10-2024 [facility] Start: 10-10-2024 Blood culture Blood Culture [facility] Start: 10-07-2024 Patient discharge [facility] Start: 10-06-2024 [facility] Start: 10-06-2024 Following clinical pathway protocol [facility] Start: 10-06-2024 [facility] Start: 10-05-2024 Following clinical pathway protocol [facility] Start: 10-05-2024 Ambulation without limitation [facility] Start: 10-05-2024 Assessment of risk of venous thromboembolism [facility] Start: 10-05-2024 Care regimes management [facility] Start: 10-05-2024 Insertion of catheter into peripheral vein [facility] Start: 10-05-2024 Measuring intake and output [facility] Start: 10-05-2024 Notification of physician [facility] Start: 10-05-2024 Oxygen therapy [facility] Start: 10-05-2024 Providing care according to standard [facility] Start: 10-05-2024 End: 10-05-2024 [facility] Start: 10-05-2024 Cardiovascular stress test using pharmacologic stress agent Nuclear Stress Test - Chemical [facility] Start: 10-05-2024 Verification routine [facility] Start: 10-05-2024 Admission procedure [facility] Start: 10-05-2024 Hospital admission, emergency, from emergency room, medical nature [facility] Start: 10-05-2024 [facility] Start: 03-13-2023 Colonoscopy w/biopsy single/multiple COLONOSCOPY AND BIOPSY [facility] Start: 03-13-2023 Egd transoral biopsy single/multiple EGD BIOPSY SINGLE/MULTIPLE [facility] Start: 03-13-2023 Patient discharge [facility] Start: 02-05-2022 Patient discharge [facility] Work Phone: Start: 02-04-2022 Care planning and problem solving actions [facility] Work Phone: Start: 02-03-2022 Following clinical pathway protocol [facility] Work Phone: Start: 02-03-2022 Assessment of risk of venous thromboembolism [facility] Work Phone: Start: 02-03-2022 Care regimes management [facility] Work Phone: Start: 02-03-2022 Incentive spirometry [facility] Work Phone: Start: 02-03-2022 Inhalation therapy procedure [facility] Work Phone: Start: 02-03-2022 Insertion of catheter into peripheral vein [facility] Work Phone: Start: 02-03-2022 Introduction of urinary catheter [facility] Work Phone: Start: 02-03-2022 Measuring intake and output [facility] Work Phone: Start: 02-03-2022 Providing care according to standard [facility] Work Phone: Start: 02-03-2022 Provision of activity privileges [facility] Work Phone: Start: 02-03-2022 Referral to general surgeon [facility] Work Phone: Start: 02-03-2022 End: 02-03-2022 [facility] Work Phone: Start: 02-03-2022 Verification routine [facility] Work Phone: Start: 02-03-2022 Admission procedure [facility] Work Phone: Start: 02-03-2022 End: 02-03-2022 [facility] Work Phone: Start: 02-03-2022 End: 02-03-2022 Blood culture [facility] Work Phone: Start: 02-03-2022 Patient referral to dietitian [facility] Work Phone: Start: 02-10-2021 HPV TESTING HPV TESTING [facility] Start: 02-10-2021 PAP TESTING PAP TESTING [facility] Start: 11-26-2019 Influenza vaccination INFLUENZA (#1) [facility] Start: 02-18-2017 Mammography MAMMOGRAM [facility] Start: 1989 Urine microalbumin profile DTAP,TDAP,TD (1 - Tdap) [facility] Start: 1988 ANNUAL PCP TEAM CHRONIC DISEASE VISIT ANNUAL PCP TEAM CHRONIC DISEASE VISIT [facility] Start: 1988 Hepatitis B surface antibody level LDL CHOLESTEROL [facility] Start: 1988 HEPATITIS C SCREENING HEPATITIS C SCREENING [facility] Start: 1988 HIV SCREENING HIV SCREENING [facility] Start: 1986 ONE PNEUMOVAX PRIOR TO AGE 65 ONE PNEUMOVAX PRIOR TO AGE 65 [facility] Start: 1980 [object Object] DIABETIC FOOT EXAM [facility] Start: 1980 Hepatitis B screening URINE ALBUMIN:CREATININE RATIO [facility] Start: 1980 Hepatitis C antibody, confirmatory test DILATED RETINAL EXAM [facility] Start: 1975 HbA1c (Bld) [Mass fraction] [facility] in Anion gap in Serum o r Plasma [facility] Bacteria identified in Blood by Culture Blood Culture [facility] Work Phone: Bacteria identified in Urine by Culture Urine Culture [facility] Work Phone: Blood culture [facility] Work Phone: BUN/Creatinine ratio [facility] Calcium [Mass/volume ] in Serum or Plasma [facility] Carbon dioxide, tota l [Moles/volume] in Central venous blood [facility] Colonoscopy [facility] Creatinine [Mass/vol ume] in Serum or Plasma [facility] Glucose [Mass/volume ] in Serum or Plasma [facility] Hematocrit [Volume Fraction] of Blood [facility] Hemoglobin A1c/Hemoglobin.total in Blood [facility] Work Phone: Hemoglobin A1c/Hemoglobin.total in Blood [facility] Measurement of renal function [facility] Mycobacterium tuberc ulosis tuberculin stimulated gamma interferon [Presence] in Blood [facility] Patient Education ED Abdominal P ain Unkn Cause Fem [facility] Work Phone: Patient referral [facility] Work Phone: Potassium measurement [facility] Serum chloride measurement [facility] Sodium measurement [facility] T4 free measurement [facility] Work Phone: Thyroid stimulating hormone measurement [facility] Work Phone: Troponin T.cardiac [Mass/volume] in Serum or Plasma by High sensitivity method [facility] Troponin T.cardiac [Mass/volume] in Serum or Plasma by High sensitivity method [facility] Urea nitrogen [Mass/ volume] in Serum or Plasma [facility] Immunizations Immunization Date Immunization Notes Care Provider Fa cility 12-21-2021 Covid (Cam & Travee) Dr. Phu Espinoza Work Phone: [facility] 12-21-2021 influenza, injectabl e, quadrivalent, preservative free Dr. Phu Espinoza Work Phone: [facility] 12-21-2021 influenza, seasonal, injectable Dr. Phu Espinoza Work Phone: [facility] Payers Date Payer Category Payer Private Health Insurance [id number] 2023 Self-pay [id number] 2023 Unknown [id number] 1999 Unknown MMO [employer] PLUS [id number] 12/26/1999 2008 PPO [id number] Unknown [id number] Unknown [facility] PACKAGE PLAN [id number] Unknown [id number] [id number] 62 Unknown [id number] 2.16.840.1.190970.3.579.2.4 62 Unknown [id number] 2.16.840.1.839248.3.579.2.4 62 Unknown [id number] 2.16.840.1.524668.3.579.2.4 62 Unknown [id number] 2.16.840.1.259983.3.579.2.4 62 Unknown [id number] 2.16.840.1.973635.3.579.2.4 62 Unknown [id number] 2.16.840.1.687822.3.579.2.4 62 Unknown [id number] 2.16.840.1.292333.3.579.2.4 62 Unknown [id number] 2.16.840.1.353449.3.579.2.4 62 Unknown [id number] 2.16.840.1.053228.3.579.2.4 62 Unknown [id number] 2.16.840.1.364834.3.579.2.4 62 Unknown [id number] 2.16.840.1.325382.3.579.2.4 62 Unknown [id number] 2.16.840.1.261793.3.579.2.4 62 Unknown [id number] 2.16.840.1.732234.3.579.2.4 62 Unknown [id number] 2.16.840.1.023391.3.579.2.4 62 Unknown [id number] 2.16.840.1.262450.3.579.2.4 62 Unknown [id number] 2.16.840.1.272940.3.579.2.4 62 Unknown [id number] 2.16.840.1.707929.3.579.2.4 62 Unknown [id number] 2.16.840.1.949749.3.579.2.4 62 Unknown [id number] 2.16.840.1.102548.3.579.2.4 62 Unknown [id number] 2.16.840.1.668216.3.579.2.4 62 Unknown [id number] 2.16.840.1.777463.3.579.2.4 62 Unknown [id number] 2.16.840.1.461584.3.579.2.4 62 Unknown [id number] 2.16.840.1.141544.3.579.2.4 62 Social History Date Type Detail Facility Start: 02-08-2006 End: 10-21-2024 Tobacco smoking status NHIS Never smoker [facility] Start: 02-08-2006 Alcohol intake Current non-dr yarder puncher of alcohol (finding) [facility] Sex Assigned At Not on file [facility] Start: 06-09-2021 End: 03-07-2023 Tobacco smoking status [facility] Unknown if ever smoked [facility] Start: 05-18-2020 None [facility] Start: 05-18-2020 Spouse/ Signif icant Other [facility] Start: 02-03-2019 Non-smoker [facility] Start: 1970 Sex Assigned At Female [facility] Start: 07-09-2024 Sex Female (finding) [facility] Goals Date Patient Goal Desired Activity /State Functional Status Date Assessment Result Facility 10-07-2024 Functional status Activity Abili ty With Assist of 1 [facility] Work Phone: 10-07-2024 Functional status Ambulates [facility] Work Phone: 02-05-2022 Functional status Up ad edgard;Bathroom Priv ilege [facility] Work Phone: Mental Status Date Assessment Result Facility 10-07-2024 Cognitive function Voice/Name [facility] Work Phone: 10-05-2024 Cognitive function Voice/Name [facility] Work Phone: 03-13-2023 Cognitive function Voice/Name [facility] Work Phone: 03-13-2023 Cognitive function Patient Orierendira adams Person;Place;Time [facility] Work Phone: 02-05-2022 Cognitive function Voice/Name [facility] Work Phone: 02-03-2022 Cognitive function Level Of Cons ciousness Awake;Alert;Appropriate;Follow s Commands [facility] Work Phone: Clinical Notes 03-13-2023 to 10-07-2024 Note Date & Type Note Facility 10-07-2024 Discharge summary [facility] 10-07-2024 Note [facility] Medical Records Department [address] [place] [address] Discharge Summary 10/07/24 1608 MR#: [id number] Acct: [id number] Name: ARLEN NGUYEN Rep #: [id number] : 1970 54 From: Octavio Archuleta MD PCP: Dr. Phu Espinoza MD Status:ADM NATALIE Location: [place] [address] Providers Date of Admission: 10/05/24 Date of Discharge: 10/07/24 Primary Care Physician: Dr. Phu Espinoza MD Reason For Visit: CHEST PAIN Diagnosis Discharge Diagnosis (1) Chest pain: Status: Acute Code(s): R07.9 - Chest pain, unspecified Plan Patient is a 54-year-old female who presented with chest pain 1. Chest pain ??? Patient was placed on a monitored bed NE was ruled out with serial cardiac enzymes as part of patient's evaluation a nuclear stress test was ordered ??? Patient nuclear stress test was negative for stress-induced ischemia discharge him instructed to follow-up with primary care physician for subsequent 2. Class III obesity with BMI of 45.2 ??? Complicating care weight loss advised 3. Hypertension ??? Blood pressure controlled, home medications continued with dose adjustment as needed 4. Dyslipidemia ???Patient is on statin therapy, continued at home dose 5. GERD ??? On PPI 6. Hypothyroidism ??? Patient is on levothyroxine home dose continued 7.Anemia ??? Secondary to chronic disorder monitoring H H and transfuse if patient becomes symptomatic or hemoglobin falls below 7 8. n Acute kidney injury ??? Baseline creatinine 1.97 patient creatinine on admission was 1.37. Rehydrated with IV fluids with holding of potential nephrotoxic medication 9. DVT prophylaxis ??? Subcu heparin Medications at Discharge Home Medications albuterol sulfate 90 mcg/actuation aerosol inhaler (Ventolin HFA) 1 puff inhalation Q4H PRN PRN Shortness Of Breath 12/01/13 zolpidem 10 mg tablet (Ambien) 5 mg PO QHS PRN sleep 12/01/13 epinephrine 0.3 mg/0.3 mL injection, auto-injector 0.3 mg (0.3 mL) IJ X1 PRN Anaphylaxis ##1 02/03/19 atorvastatin 40 mg tablet 40 mg PO DAILY 02/03/21 cetirizine 10 mg tablet 10 mg PO DAILY 02/03/21 valsartan 320 mg tablet 320 mg PO QHS 03/07/23 metformin 1,000 mg tablet 1,000 mg PO BID 11/01/23 paroxetine HCl 40 mg tablet 40 mg PO QDAY 11/01/23 insulin lispro 200 unit/mL (3 mL) subcutaneous pen (Humalog KwikPen U-200 Insulin) 170 unit (0.85 mL) subcut ONCE #76.5 mL 05/02/24 levothyroxine 125 mcg tablet 125 mcg PO QDAY #90 tabs 05/02/24 empagliflozin 25 mg tablet (Jardiance) 25 mg PO QDAY #90 tabs 06/10/24 finerenone 10 mg tablet (Kerendia) 10 mg PO DAILY 10/05/24 pantoprazole 40 mg tablet,delayed release 40 mg PO DAILY 10/05/24 polysaccharide iron complex 150 mg iron capsule (Ferrex) 150 mg PO DAILY 10/05/24 sulfamethoxazole 800 mg-trimethoprim 160 mg tablet 1 tab PO QHS 10/05/24 Hospital Course Summary of Care Provided Minutes Spent on Discharge: 35 Physical Exam Narrative GENERAL: cooperative HEENT: Atraumatic; normocephalic EYES; Anicteric, Normal Conjunctiva NECK; supple, normal thyroid, RESPIRATORY: Diminished to auscultation CARDIOVASCULAR: Regular S1 S2, GI: soft, normoactive bowel sounds, : No Renal angle tenderness; EXTREMITIES: No edema, no clubbing, MUSCULOSKELETAL: no muscle wasting NEURO: Awake; no lateralizing signs. SKIN: No Rash PSYCH; Flat affect Weight / BMI Weight Weight: 130.9 kg Body Mass Index (BMI) 45.1 ABG / Lab / Microbiology Data 10/07/24 03:28 10/07/24 03:28 Laboratory: Laboratory Results - last 24 hr 10/06/24 16:06: POC Glucose 154 H 10/06/24 22:49: POC Glucose 180 H 10/07/24 03:28: WBC 6.6, RBC 4.32, Hgb 10.5 L, Hct 33.6 L, MCV 77.8 L, MCH 24.3 L, MCHC 31.3 L, RDW Std Deviation 43.3, RDW Coeff of Libby 15.3 H, Plt Count 242, MPV 10.6, Immature Gran % (Auto) 0.300, Neut % (Auto) 48.3, Lymph % (Auto) 37.9, Franklin % (Auto) 10.8 H, Eos % (Auto) 2.1, Baso % (Auto) 0.6, Absolute Neuts (auto) Not Reportable, Sodium 140, Potassium 4.3, Chloride 104, Carbon Dioxide 23.7, Anion Gap 12, BUN 24 H, Creatinine 1.08, Estim Creat Clear Calc 83.97, Est GFR (MDRD) Non-Af 61, B UN/Creatinine Ratio 22.1 H, Glucose 150 H, Calcium 9.9, Magnesium 1.9, Total Bilirubin 0.29, AST 56 H, ALT 58 H, Alkaline Phosphatase 46, Total Protein 7.0, Albumin 4.1, Globulin 2.9, Albumin/Globulin Ratio 1.4, Triglycerides 196, Cholesterol 113, LDL Cholesterol, Calc 44, VLDL Cholesterol 39, HDL Cholesterol 30 L, Cholesterol/HDL Ratio 3.77 10/07/24 06:11: POC Glucose 167 H 10/07/24 11:18: POC Glucose 178 H Radiography Diagnostic Testing: Radiology Impression Echocardiogram 10/05/24 21:14 Interpretation Summary The LV ejection fraction is 65 %. Stage 1 diastolic dysfunction. Ordering Physician: Maria E Dunn (more content not included)... [facility] 10-07-2024 Progress note Note Date/Time October 07, 2024 12:29pm [facility] Medical Records Department [address] [facility] [place] [address] Progress Note - Hospitalist 10/07/24 1004 MR#: [id number] Acct: [id number] Name: ARLEN NGUYEN Rep #:[id number] : 1970 54 From: Octavio Archuleta MD PCP: Dr. Phu Espinoza MD Status:ADM I NO Location: [place] [address] Reason for Visit Chief Complaint: Chest pain Subjective Subjective Patient is a 54-year-old lady admitted with chest pain and fatigue Objective Data Objective Data Vital Signs: Vital Signs Temp Pulse Resp BP Pulse Ox O2 Del Method O2 Flow Rate 98.7 F 77 16 136/63 H 98 Nasal Cannula 2 10/07/24 06:12 10/07/24 06:12 10/07/24 06:12 10/07/24 06:12 10/07/24 06:12 10/07/24 08:10 10/07/24 08:10 Oxygen Flow Rate (L/min) 2 Oxygen Delivery Method Nasal Cannula Weight: 130.9 kg Body Mass Index (BMI) 45.1 Intake & Output: Intake and Output for Last 24 Hours 10/05/24 10/06/24 10/07/24 23:59 23:59 23:59 Intake Total 1100 / 1100 Balance 1100 / 1100 Lab / Micro Data 10/07/24 03:28 10/07/24 03:28 Labs: Laboratory Results - last 24 hr 10/06/24 06:00: Sodium 139, Potassium 4.6, Chloride 104, Carbon Dioxide 22.7, Anion Gap 12, BUN 24 H, Creatinine 1.24 H, Estim Creat Clear Calc 73.13, Est GFR(MDRD) Non-Af 52 L, BUN/Creatinine Ratio 19.0, Glucose 135 H, Calcium 9.1 10/06/24 11:12: POC Glucose 173 H 10/06/24 16:06: POC Glucose 154 H 10/06/24 22:49: POC Glucose 180 H 10/07/24 03:28: WBC 6.6, RBC 4.32, Hgb 10.5 L, Hct 33.6 L, MCV 77.8 L, MCH 24.3 L, MCHC 31.3 L, RDW Std Deviation 43.3, RDW Coeff of Libby 15.3 H, Plt Count 242, MPV 10.6, Immature Gran % (Auto) 0.300, Neut % (Auto) 48.3, Lymph % (Auto) 37.9,Franklin % (Auto) 10.8 H, Eos % (Auto) 2.1, Baso % (Auto) 0.6, Absolute Neuts (auto)Not Reportable, Sodium 140, Potassium 4.3, Chloride 104, Carbon Dioxide 23.7, Anion Gap 12, BUN 24 H, Creatinine 1.08, Estim Creat Clear Calc 83.97, Est GFR (MDRD) Non-Af 61, BUN/Creatinine Ratio 22.1 H, Glucose 150 H, Calcium 9.9, Magnesium 1.9, Total Bilirubin 0.29, AST 56 H, ALT 58 H, Alkaline Phosphatase 46, Total Protein 7.0, Albumin 4.1, Globulin 2.9, Albumin/Globulin Ratio 1.4, Triglycerides 196, Cholesterol 113, LDL Cholesterol, Calc 44, VLDL Cholesterol 39, HDL Cholesterol 30 L, Cholesterol/HDL Ratio 3.77 10/07/24 06:11: POC Glucose 167 H Physical Exam Narrative GENERAL: cooperative HEENT: Atraumatic; normocephalic EYES; Anicteric, Normal Conjunctiva NECK; supple, normal thyroid, RESPIRATORY: Diminished to auscultation CARDIOVASCULAR: Regular S1 S2, GI: soft, normoactive bowel sounds, : No Renal angle tenderness; EXTREMITIES: No edema, no clubbing, MUSCULOSKELETAL: no muscle wasting NEURO: Awake; no lateralizing signs. SKIN: No Rash PSYCH; Flat affect Assessment & Plan Assessment/Plan (1) Chest pain: PLAN: Plan Patient is a 54-year-old female who presented with chest pain 1. Chest pain ? Patient was placed on a monitored bed NE was ruled out with serial cardiac enzymes as part of patient's evaluation a nuclear stress test was ordered 2. Class III obesity with BMI of 45.2 ? Complicating care weight loss advised 3. Hypertension ? Blood pressure controlled, home medications continued with dose adjustment as needed 4. Dyslipidemia ?Patient is on statin therapy, continued at home dose 5. GERD ? On PPI 6. Hypothyroidism ? Patient is on levothyroxine home dose continued 7.Anemia ? Secondary to chronic disorder monitoring H&H and transfuse if patient becomes symptomatic or hemoglobin falls below 7 8. n Acute kidney injury ? Baseline creatinine 1.97 patient creatinine on admission was 1.37. Rehydratedwith IV fluids with holding of potential nephrotoxic medication 9. DVT prophylaxis ? Subcu heparin Charges/Coding Visit Charges Inpatient E&M: 56967 Subs Hosp L2 10/07/24 1229 <Electronically signed by Octavio Archuleta MD> Cosigner Signature (if applicable): CC: ~ Signed [facility] Work Phone: [phone] Hospital Discharge instructionsAdditional Instructions [facility]: [facility] Phone: [phone] 106-131607-14-2025 Progress note [facility] Medical Records Department [address] [place] [id number] Progress Note - Hospitalist 10/07/24 1004 MR#: [id number] Acct: [id number] Name: ARLEN NGUYEN Rep #:[id number] : 1970 54 From: Octavio Archuleta MD PCP: Dr. Phu Espinoza MD Status:ADM I NO Location: [place] [address] Reason for Visit Chief Complaint: Chest pain Subjective Subjective Patient is a 54-year-old lady admitted with chest pain and fatigue Objective Data Objective Data Vital Signs: Vital Signs Temp Pulse Resp BP Pulse Ox O2 Del Method O2 Flow Rate 98.7 F 77 16 136/63 H 98 Nasal Cannula 2 10/07/24 06:12 10/07/24 06:12 10/07/24 06:12 10/07/24 06:12 10/07/24 06:12 10/07/24 08:10 10/07/24 08:10 Oxygen Flow Rate (L/min) 2 Oxygen Delivery Method Nasal Cannula Weight: 130.9 kg Body Mass Index (BMI) 45.1 Intake & Output: Intake and Output for Last 24 Hours 10/05/24 10/06/24 10/07/24 23:59 23:59 23:59 Intake Total 1100 / 1100 Balance 1100 / 1100 Lab / Micro Data 10/07/24 03:28 10/07/24 03:28 Labs: Laboratory Results - last 24 hr 10/06/24 06:00: Sodium 139, Potassium 4.6, Chloride 104, Carbon Dioxide 22.7, Anion Gap 12, BUN 24 H, Creatinine 1.24 H, Estim Creat Clear Calc 73.13, Est GFR(MDRD) Non-Af 52 L, BUN/Creatinine Ratio 19.0, Glucose 135 H, Calcium 9.1 10/06/24 11:12: POC Glucose 173 H 10/06/24 16:06: POC Glucose 154 H 10/06/24 22:49: POC Glucose 180 H 10/07/24 03:28: WBC 6.6, RBC 4.32, Hgb 10.5 L, Hct 33.6 L, MCV 77.8 L, MCH 24.3 L, MCHC 31.3 L, RDWStd Deviation 43.3, RDW Coeff of Libby 15.3 H, Plt Count 242, MPV 10.6, Immature Gran % (Auto) 0.300,Neut % (Auto) 48.3, Lymph % (Auto) 37.9,Franklin % (Auto) 10.8 H, Eos % (Auto) 2.1, Baso % (Auto) 0.6, Absolute Neuts (auto)Not Reportable, Sodium 140, Potassium 4.3, Chloride 104, Carbon Dioxide 23.7, Anion Gap 12, BUN 24 H, Creatinine 1.08, Estim Creat Clear Calc 83.97, Est GFR (MDRD) Non-Af 61, BUN/Creatinine Ratio 22.1 H, Glucose 150 H, Calcium 9.9, Magnesium 1.9, Total Bilirubin 0.29, AST 56 H, ALT 58 H, Alkaline Phosphatase 46, Total Protein 7.0, Albumin 4.1, Globulin 2.9, Albumin/Globulin Ratio 1.4, Triglycerides 196, Cholesterol 113, LDL Cholesterol, Calc 44, VLDL Cholesterol 39, HDL Cholesterol 30 L, Cholesterol/HDL Ratio 3.77 10/07/24 06:11: POC Glucose 167 H Physical Exam Narrative GENERAL: cooperative HEENT: Atraumatic; normocephalic EYES; Anicteric, Normal Conjunctiva NECK; supple, normal thyroid, RESPIRATORY: Diminished to auscultation CARDIOVASCULAR: Regular S1 S2, GI: soft, normoactive bowel sounds, : No Renal angle tenderness; EXTREMITIES: No edema, no clubbing, MUSCULOSKELETAL: no muscle wasting NEURO: Awake; no lateralizing signs. SKIN: No Rash PSYCH; Flat affect Assessment & Plan Assessment/Plan (1) Chest pain: PLAN: Plan Patient is a 54-year-old female who presented with chest pain 1. Chest pain ? Patient was placed on a monitored bed NE was ruled out with serial cardiac enzymes as part of patient's evaluation a nuclear stress test was ordered 2. Class III obesity with BMI of 45.2 ? Complicating care weight loss advised 3. Hypertension ? Blood pressure controlled, home medications continued with dose adjustment as needed 4. Dyslipidemia ?Patient is on statin therapy, continued at home dose 5. GERD ? On PPI 6. Hypothyroidism ? Patient is on levothyroxine home dose continued 7.Anemia ? Secondary to chronic disorder monitoring H&H and transfuse if patient becomes symptomatic or hemoglobin falls below 7 8. n Acute kidney injury ? Baseline creatinine 1.97 patient creatinine on admission was 1.37. Rehydratedwith IV fluids with holding of potential nephrotoxic medication 9. DVT prophylaxis ? Subcu heparin Charges/Coding Visit Charges Inpatient E&M: 82917 Subs Hosp L2 10/07/24 1229 Cosigner Signature (if applicable): CC: ~ Signed [facility]07-13-2025 Progress note Author Megan Gomez [facility] Note Date/Time October 06, 2024 12:2 2pm [facility] Medical Records Department [address] [place] [address] Progress Note - Hospitalist 10/06/24706 MR#: [id number] Acct: [id number] Name: ARLEN NGUYEN Hattie Rep #:[id number] : 1970 54 From: Megan Gomez MD PCP: Dr. Phu Espinoza MD Status:ADM I NO Location: [place] [address] Reason for Visit Reason for Visit: Diagnoses Chest pain, unspecified (10/05/24) Subjective Subjective Patient with no acute events overnight per self and per nursing report however this morning upon evaluation patient is reporting chest pressure midsternal without radiation rating it 3-4 of 10 in severity with no associated nausea, emesis, diaphoresis or dyspnea. She notes it previously been 7 out of 10. On telemetry monitoring she does occasionally appear to be in bigeminy. Discussed plan of care with patient which included continued cardiac enzymes which have trended down and were only minimally elevated noted to be 24-> 22-> 34-> 24 withno acute concerning EKG changes. Noted intention that there were no acute telemetry changes or worsening troponin would plan for cardiac stress testing onMonday as well as echocardiogram. Patient denies fevers, chills, nausea, emesis, abdominal pain or dyspnea. Objective Data Objective Data Vital Signs: Vital Signs Temp Pulse Resp BP Pulse Ox O2 Del Method 97.6 F L 72 18 115/50 L 93 Room Air 10/06/24 04:00 10/06/24 04:00 10/06/24 04:00 10/06/24 04:00 10/06/24 04:00 10/06/24 04:00 Oxygen Delivery Method Room Air Weight: 288 lb 9.361 oz Body Mass Index (BMI) 45.1 Intake & Output: Intake and Output for Last 24 Hours 10/04/24 10/05/24 10/06/24 23:59 23:59 23:59 Intake Total 1000 / 1000 Balance 1000 / 1000 Lab / Micro Data 10/06/24 06:00 10/05/24 21:25 Labs: Laboratory Results - last 24 hr 10/05/24 19:37: WBC 9.5, RBC 4.56, Hgb 10.9 L, Hct 34.7 L, MCV 76.1 L, MCH 23.9 L, MCHC 31.4 L, RDW Std Deviation 42.5, RDW Coeff of Libby 15.5 H, Plt Count 276, MPV 9.7, Immature Gran % (Auto) 0.200, Neut % (Auto) 51.7, Lymph % (Auto) 36.5, Franklin % (Auto) 9.5, Eos % (Auto) 1.6, Baso % (Auto) 0.5, Absolute Neuts (auto) 4.9, Absolute Lymphs (auto) 3.48, Nucleated RBC % 0, D-Dimer Quant (PE/DVT) Cancelled, Sodium 140, Potassium 4.8, Chloride 104, Carbon Dioxide 21.3, Anion Gap 15, BUN 29 H, Creatinine 1.37 H, Estim Creat Clear Calc 66.52, Est GFR (MDRD) Non-Af 46 L, BUN/Creatinine Ratio 20.9 H, Glucose 103 H, Hemoglobin A1c 6.0 H, Calcium 10.2, Troponin T High Sens 21 H 10/05/24 20:17: D-Dimer Quant (PE/DVT) 0.42 10/05/24 21:25: Sodium 141, Potassium 4.7, Chloride 104, Carbon Dioxide 21.0, Anion Gap 15, BUN 28 H, Creatinine 1.32 H, Estim Creat Clear Calc 68.70, Est GFR(MDRD) Non-Af 48 L, BUN/Creatinine Ratio 21.1 H, Glucose 115 H, Calcium 9.6, Troponin T Hi Sens 2 Hr 22 H 10/05/24 21:56: POC Glucose 126 H 10/05/24 23:40: Troponin T Hi Sens 4Hr 34 H 10/06/24 06:00: WBC 7.2, RBC 4.15 L, Hgb 10.1 L, Hct 32.0 L, MCV 77.1 L, MCH 24.3 L, MCHC 31.6 L, RDW Std Deviation 43.8, RDW Coeff of Libby 15.7 H, Plt Count 233, MPV 10.1 10/06/24 06:24: POC Glucose 125 H Radiography Diagnostic Testing: Radiology Impression Chest X-Ray 10/05/24 20:00 IMPRESSION: No acute cardiopulmonary abnormality. Reading Location: [id number] Physical Exam Narrative Physical Examination: General: Awake, alert, oriented x 3 and cooperative, laying in the PCU bed, no obvious evidence of distress but patient voice very bertha/weak, previous to this nurse notes that she was tearful and talkative. Skin: Normal color, normal turgor, no icterus, no cyanosis. HEENT: AT/NC, EOMI, PERRLA, MMM. Lungs: Distant, likely secondary to habitus, appropriate effort, no rales, ronchi or wheezing. Heart: Regular rate and rhythm; no gallop, rub audible, some anterior chest discomfort with palpation. Abdomen: Soft, morbidly obese, NTTP, distant BS, difficult to discern distentiongiven habitus. Extremities: No cyanosis, no marked clubbing or significantly noted peripheral distal edema. Neurological: Patient awake, alert, oriented as noted, cognitive function intact; pupils equally reactive to light and accommodation, cranial nerves grossly normal, moving all 4 extremities, no focal deficits, strength mildly globally decreased given acute presentation complaints Psychiatric: Affect appears normal, no acute evidence of depressive or anxiety feelings. Assessment & Plan Assessment/Plan (1) Chest pain: PLAN: Plan The patient is a 54 y/o F w/ PMHx: Anxiety depression/mood disorder, HTN, HLD, Chronic anemia/Fe deficiency anemia, Hypothyroidism, GERD, Diabetes mellitus type II, CKD stage III per chart report, Morbid obesity who presents to the [facility] ED on 10/05/2024 with onset of chest discomfort. #1. Chest Pain with minimally elevated cardiac troponins of unclear significance: EKG in ED sinus rhythm with no acute evidence of ischemia, CXR w/ no acute cardiopulmonary findings, cardiac enzymes which have trended down and were only minimally elevated noted to be 24-> 22-> 34-> 24. Admitted to PCU, maintain on telemetry monitoring with EKG repeats as needed, magnesium 1.3 with supplementation ordered with plan for repeat level 10/07/24 AM, FLP requested, ifcontinued telemetry and enzymes with no acute changes or rise would plan for cardiac stress testing in a.m. 10/07/24. Echo also ordered per admitting physician for 10/07/24. Continue aspirin therapy. NG. #2. Mild creatinine increase/renal insufficiency on chronic Kidney Disease Stage III unclear subtype per previous GFR trending and chart report, THADDEUS RULED OUT: Admission BUN/Cr 29/1.37, GFR 46, baseline renal function primarily 0.8-1.2, given concerns for renal insufficiency upon presentation patient judiciously hydrated, repeat 10/06/24 BMP, given patient's baseline the creatinine rise is not 1.5 times her baseline normal thus not consistent with THADDEUS. Will await repeat labs, continue judicious hydration and if remains appropriate will resume patient valsartan, finerenone and empagliflozin. #3. Chronic microcytic anemia/iron deficiency anemia: Admission hemoglobin 10.9, MCV 76.1, baseline hemoglobin primarily 10-11 range, 10/06/2024 hemoglobin 10.1, MCV 77.1, continue iron supplementation and CBC trending. #4. Anxiety depression/mood disorder: Patient's behavior noted per hospitalist admitting physician to be very depressed and anxious, upon reevaluation 10/06/24 AM patient very bertha however previous to this evaluation with the nursing staff she was cheerful and smiling, certainly mood disorder could be contributing, will continue patient home paroxetine regimen as well as nightly Ambien althoughwould benefit from de-escalating off sedate of addicting sleep regimen potentially consideration of trazodone instead. #5. Diabetes mellitus type II: Clarifying his patient reported insulin drip usage but she does not have this on her at this time, hemoglobin A1c 6.0% upon presentation, attempting to clarify daily insulin pump usage with potential transition to long-acting temporally as able, maintain in the interim on ADA diet, accu checks w/ ISS. As noted above will reinitiate dapagliflozin if repeat renal function appropriate. #6. Hypertension: As noted upon admission initial concern for possible THADDEUS, ruled out, if repeat labs this morning appear appropriate will resume patient home losartan and finerenone regimen, PRN Hydralazine. #7. Hyperlipidemia: Continue home statin regimen. AM FLP. #8. Hypothyroidism: Will continue patient home levothyroxine regimen. #9. Morbid Obesity: Weight loss and lifestyle changes encouraged. #10. GERD: Continue home PPI. #11. DVT prophylaxis: Lovenox. Charges/Coding Visit Charges Inpatient E&M: 70882 Subs Hosp L2 10/06/24 1222 <Electronically signed by Megan Gomez MD> Cosigner Signature (if applicable): CC: ~ Signed [facility] Work Phone: [phone] Progress note [facility] Medical Records Department [address] [place] [address] Progress Note - Hospitalist 10/06/24 07 MR#: [id number] Acct: [id number] Name: ARLEN NGUYEN Rep #:[id number] : 1970 54 From: Megan Gomez MD PCP: Dr. Phu Espinoza MD Status:ADM I NO Location: [place] [address] 1 Reason for Visit Reason for Visit: Diagnoses Chest pain, unspecified (10/05/24) Subjective Subjective Patient with no acute events overnight per self and per nursing report however this morning upon evaluation patient is reporting chest pressure midsternal without radiation rating it 3-4 of 10 in severity with no associated nausea, emesis, diaphoresis or dyspnea. She notes it previously been 7 out of 10. On telemetry monitoring she does occasionally appear to be in bigeminy. Discussed plan of care with patient which included continued cardiac enzymes which have trended down and were only minimally elevated noted to be 24-> 22-> 34-> 24 withno acute concerning EKG changes. Noted intention that there were no acute telemetry changes or worsening troponin would plan for cardiac stress testing onMonday as well as echocardiogram. Patient denies fevers, chills, nausea, emesis, abdominalpain or dyspnea. Objective Data Objective Data Vital Signs: Vital Signs Temp Pulse Resp BP Pulse Ox O2 Del Method 97.6 F L 72 18 115/50 L 93 Room Air 10/06/24 04:00 10/06/24 04:00 10/06/24 04:00 10/06/24 04:00 10/06/24 04:00 10/06/24 04:00 Oxygen Delivery Method Room Air Weight: 288 lb 9.361 oz Body Mass Index (BMI) 45.1 Intake & Output: Intake and Output for Last 24 Hours 10/04/24 10/05/24 10/06/24 23:59 23:59 23:59 Intake Total 1000 / 1000 Balance 1000 / 1000 Lab / Micro Data 10/06/24 06:00 10/05/24 21:25 Labs: Laboratory Results - last 24 hr 10/05/24 19:37: WBC 9.5, RBC 4.56, Hgb 10.9 L, Hct 34.7 L, MCV 76.1 L, MCH 23.9 L, MCHC 31.4 L, RDWStd Deviation 42.5, RDW Coeff of Libby 15.5 H, Plt Count 276, MPV 9.7, Immature Gran % (Auto) 0.200, Neut % (Auto) 51.7, Lymph % (Auto) 36.5, Franklin % (Auto) 9.5, Eos % (Auto) 1.6, Baso % (Auto) 0.5, Absolute Neuts (auto) 4.9, Absolute Lymphs (auto) 3.48, Nucleated RBC % 0, D-Dimer Quant (PE/DVT) Cancelled, Sodium 140, Potassium 4.8, Chloride 104, Carbon Dioxide 21.3, Anion Gap 15, BUN 29 H, Creatinine 1.37 H, Estim Creat Clear Calc 66.52, Est GFR (MDRD) Non-Af 46 L, BUN/Creatinine Ratio 20.9 H, Glucose 103 H, Hemoglobin A1c 6.0 H, Calcium 10.2, Troponin T High Sens 21 H 10/05/24 20:17: D-Dimer Quant (PE/DVT) 0.42 10/05/24 21:25: Sodium 141, Potassium 4.7, Chloride 104, Carbon Dioxide 21.0, Anion Gap 15, BUN 28 H, Creatinine 1.32 H, Estim Creat Clear Calc 68.70, Est GFR(MDRD) Non-Af 48 L, BUN/Creatinine Ratio 21.1 H, Glucose 115 H, Calcium 9.6, Troponin T Hi Sens 2 Hr 22 H 10/05/24 21:56: POC Glucose 126 H 10/05/24 23:40: Troponin T Hi Sens 4Hr 34 H 10/06/24 06:00: WBC 7.2, RBC 4.15 L, Hgb 10.1 L, Hct 32.0 L, MCV 77.1 L, MCH 24.3 L, MCHC 31.6 L, RDW Std Deviation 43.8, RDW Coeff of Libby 15.7 H, Plt Count 233, MPV 10.1 10/06/24 06:24: POC Glucose 125 H Radiography Diagnostic Testing: Radiology Impression Chest X-Ray 10/05/24 20:00 IMPRESSION: No acute cardiopulmonary abnormality. Reading Location: [id number] Physical Exam Narrative Physical Examination: General: Awake, alert, oriented x 3 and cooperative, laying in the PCU bed, no obvious evidence of distress but patient voice very bertha/weak, previous to this nurse notes that she was tearful and talkative. Skin: Normal color, normal turgor, no icterus, no cyanosis. HEENT: AT/NC, EOMI, PERRLA, MMM. Lungs: Distant, likely secondary to habitus, appropriate effort, no rales, ronchi or wheezing. Heart: Regular rate and rhythm; no gallop, rub audible, some anterior chest discomfort with palpation. Abdomen: Soft, morbidly obese, NTTP, distant BS, difficult to discern distentiongiven habitus. Extremities: No cyanosis, no marked clubbing or significantly noted peripheral distal edema. Neurological: Patient awake, alert, oriented as noted, cognitive function intact; pupils equally reactive to light and accommodation, cranial nerves grossly normal, moving all 4 extremities, no focaldeficits, strength mildly globally decreased given acute presentation complaints Psychiatric: Affect appears normal, no acute evidence of depressive or anxiety feelings. Assessment & Plan Assessment/Plan (1) Chest pain: PLAN: Plan The patient is a 54 y/o F w/ PMHx: Anxiety depression/mood disorder, HTN, HLD, Chronic anemia/Fe deficiency anemia, Hypothyroidism, GERD, Diabetes mellitus type II, CKD stage III per chart report, Morbid obesity who presents to the [facility] ED on 10/05/2024 with onset of chest discomfort. #1. Chest Pain with minimally elevated cardiac troponins of unclear significance: EKG in ED sinus rhythm with no acute evidence of ischemia, CXR w/ no acute cardiopulmonary findings, cardiac enzymes which have trended down and were only minimally elevated noted to be 24-> 22-> 34-> 24. Admitted to PCU, maintain on telemetry monitoring with EKG repeats as needed, magnesium 1.3 with supplementation ordered with plan for repeat level 10/07/24 AM, FLP requested, ifcontinued telemetry and enzymes with no acute changes or rise would plan for cardiac stress testing in a.m. 10/07/24. Echo alsoordered per admitting physician for 10/07/24. Continue aspirin therapy. NG. #2. Mild creatinine increase/renal insufficiency on chronic Kidney Disease Stage III unclear subtype per previous GFR trending and chart report, THADDEUS RULED OUT: Admission BUN/Cr 29/1.37, GFR 46, baseline renal function primarily 0.8-1.2, given concerns for renal insufficiency upon presentation patient judiciously hydrated, repeat 10/06/24 BMP, given patient's baseline the creatinine rise is not 1.5times her baseline normal thus not consistent with THADDEUS. Will await repeat labs, continue judicious hydration and if remains appropriate will resume patient valsartan, finerenone and empagliflozin. #3. Chronic microcytic anemia/iron deficiency anemia: Admission hemoglobin 10.9, MCV 76.1, baselinehemoglobin primarily 10-11 range, 10/06/2024 hemoglobin 10.1, MCV 77.1, continue iron supplementation and CBC trending. #4. Anxiety depression/mood disorder: Patient's behavior noted per hospitalist admitting physician to be very depressed and anxious, upon reevaluation 10/06/24 AM patient very bertha however previous tothis evaluation with the nursing staff she was cheerful and smiling, certainly mood disorder could be contributing, will continue patient home paroxetine regimen as well as nightly Ambien althoughwould benefit from de-escalating off sedate of addicting sleep regimen potentially consideration of trazodone instead. #5. Diabetes mellitus type II: Clarifying his patient reported insulin drip usage but she does not have this on her at this time, hemoglobin A1c 6.0% upon presentation, attempting to clarify daily insulin pump usage with potential transition to long-acting temporally as able, maintain in the interim on ADA diet, accu checks w/ ISS. As noted above will reinitiate dapagliflozin if repeat renal function appropriate. #6. Hypertension: As noted upon admission initial concern for possible THADDEUS, ruled out, if repeat labs this morning appear appropriate will resume patient home losartan and finerenone regimen, PRN Hydralazine. #7. Hyperlipidemia: Continue home statin regimen. AM FLP. #8. Hypothyroidism: Will continue patient home levothyroxine regimen. #9. Morbid Obesity: Weight loss and lifestyle changes encouraged. #10. GERD: Continue home PPI. #11. DVT prophylaxis: Lovenox. Charges/Coding Visit Charges Inpatient E&M: 04686 Subs Hosp L2 10/06/24 1222 Cosigner Signature (if applicable): CC: ~ Signed [facility]07-13-2025 History and physical note Author Junior Dunn [facility] Note Date/Time October 05, 2024 11:5 8pm [facility] Medical Records Department [address] [place] [address] H&P Exam - Hospitalist 10/05/242109 MR#: [id number] Acct: [id number] Name: ARLEN NGUYEN Rep #:[id number] : 1970 54 From: Junior allison DO PCP: Dr. Phu Espinoza MD Status:ADM I NO Location: [place] [id number] HPI - General General Date of Admission: 10/05/24 Date of Service: 10/05/24 Chief Complaint: Chest pain HPI Narrative ARLEN NGUYEN, is a 54 F who presented to [facility] ED on 10/05/2024 with chest pain. Medical history significant for class III obesity, type 2 diabetes, hypertension, hyperlipidemia, hypothyroidism, mood disorder, GERD and iron deficiency anemia. Patient reports intermittent chest discomfort for the past 3 days. The discomfort will radiate into her left arm at times. She will feel short of breath and dizzy with these episodes. In the ED she was normotensive, in normal sinus rhythm and stable on room air. CBC benign. BMP with creatinine 1.37, baseline around 1.0. Troponin trend 21 > 22. EKG showed normal sinus rhythm with no ST changes. Chest x-ray was unremarkable. Last echo was from 2014 and patient has never had stress testing done. Given chest pain with need for ACS rule out, hospitalist was contacted for admission. I sawthe patient at bedside in the ED, was present. Patient was sitting backin bed fairly comfortably and in no acute distress. She did have a flat affect and appeared depressed. She reported ongoing chest pain of mild to moderate intensity currently, similar to earlier this evening. She denies any shortness of breath. Denies any other acute concerns. Will be admitted for further management. [facility] Medical History Post-menopausal Wears contact lenses Anxiety [...] Morbid obesity with BMI of 45.0-49.9, adult Home Medications ?Medication ?Instructions ?Recorded ?Last Taken ?Type albuterol sulfate 90 mcg/actuation 1 puff inhalation Q 4H PRN PRN 12/01/13 01/28/22 History aerosol inhaler (Ventolin HFA) Shortness Of Breath zolpidem 10 mg tablet (Ambien) 5 mg PO QHS PRN sleep 0 12/01/13 10/04/24 History epinephrine 0.3 mg/0.3 mL 0.3 mg (0.3 mL) IJ X1 PRN Unknown Rx injection, auto-injector Anaphylaxis ##1 atorvastatin 40 mg tablet 40 mg PO DAILY 02/03/2109/24 History cetirizine 10 mg tablet 10 mg PO DAILY 02/03/2109/24 History valsartan 320 mg tablet 320 mg PO QHS 03/07/2310/04 History metformin 1,000 mg tablet 1,000 mg PO BID 11/01/2302/18 History paroxetine HCl 40 mg tablet 40 mg PO QDAY 11/01/2302/18 History insulin lispro 200 unit/mL (3 mL) 170 unit (0.85 mL) s ubcut ONCE 05/02/24 Unknown Rx subcutaneous pen (Humalog KwikPen #76.5 mL U-200 Insulin) levothyroxine 125 mcg tablet 125 mcg PO QDAY #90 tabs 05/02/24 10/04/24 Rx empagliflozin 25 mg tablet 25 mg PO QDAY #90 tabs 05/2510/05/24 Rx (Jardiance) finerenone 10 mg tablet (Kerendia) 10 mg PO DAILY 09/24 05/21 Unknown History pantoprazole 40 mg tablet,delayed 40 mg PO DAILY 10/0510/05/24 History release polysaccharide iron complex 150 mg 150 mg PO DAILY 03/2010/05/24 History iron capsule (Ferrex) sulfamethoxazole 800 1 tab PO QHS 10/05/24 History mg-trimethoprim 160 mg tablet Allergy/AdvReac Type Severity Reaction Status Date / Time nut - unspecified Allergy Anaphylaxis Verified 10/05/24 19:16 peanut Allergy Anaphylaxis Verified 10/05/24 19:16 shellfish derived Allergy Anaphylaxis Verified 10/05/24 19:16 codeine AdvReac Rash Verified 10/05/24 19:16 prednisone AdvReac Other Verified 10/05/24 19:16 sertraline HCl (From Zoloft) AdvReac Other Verified 10/05/24 19:16 Family History Other Alcohol abuse Anxiety Arthritis Asthma Bleeding disorder Bowel disease Depression Diabetes Hypertension Severe allergy Surgical History History of endometrial ablation History of removal of ovarian cyst History of cholecystectomy Social History household members: none Smoking Status: Never smoker alcohol intake: current alcohol intake frequency: 0-2 drinks per day substance use type: does not use what type of physical activity do you participate in: walking ROS Constitutional Constitutional: Reports fatigue; Denies chills, fever(s) or weakness Eyes Eyes: Denies change in vision Cardiovascular Cardiovascular: Reports chest pain; Denies dyspnea on exertion, edema, lightheadedness, orthopnea or palpitations Respiratory/Chest Respiratory/Chest: Denies shortness of breath at rest Gastrointestinal Gastrointestinal: Denies abdominal pain Musculoskeletal Musculoskeletal: Denies arthralgias or myalgias Psychiatric Psychiatric: Reports anxiety and depression Vital Signs Vital Signs Vital Signs: 10/05/24 19:13 10/05/24 19:23 10/05/24 19:43 Temperature 98.1 F Temperature Source Oral Pulse Rate 81 73 Respiratory Rate 20 H Respiratory Effort Normal Non-Labored Blood Pressure 123/67 H 112/66 Blood Pressure Mean 85 Pulse Ox 100 Oxygen Delivery Method Room Air 10/05/24 19:47 10/05/24 20:11 10/05/24 21:00 Temperature Temperature Source Pulse Rate 80 82 Respiratory Rate 13 18 Respiratory Effort Blood Pressure 130/74 H 135/65 H Blood Pressure Mean 92 88 Pulse Ox 92 94 Oxygen Delivery Method Room Air Room Air Room Air Weight Weight: 132 kg Body Mass Index (BMI) 45.6 Physical Exam Const alert, oriented x3 and no apparent distress Constitutional Narrative: Middle-aged female, class III obesity, mildly fatigued with flat affect and depressed appearing, otherwise sitting back comfortably in bed and in no acute distress. General Appearance: cooperative and comfortable HEENT normocephalic, head/scalp atraumatic, hearing grossly normal bilaterally, nasal mucous membranes and turbinates normal and moist oral mucous membranes Eyes PERRL, EOMs intact bilaterally and conjunctivae normal Neck full ROM Chest inspection of chest normal Resp normal respiratory effort, normal air movement, no use of accessory muscles and clear to auscultation bilaterally Cardio regular rate, regular rhythm, no murmurs and peripheral pulses 2+ throughout GI normal to inspection, nondistended, normoactive bowel sounds, soft to palpation,non-tender and non-distended Back/Spine normal ROM Extremity normal to inspection, full ROM and no pedal edema Skin no rashes or lesions noted Psych mental status grossly normal Psych Narrative: Flat affect. Mood & Affect: depressed and anxious Results Lab / Micro Data 10/05/24 19:37 10/05/24 21:25 Labs: Laboratory Results - last 24 hr 10/05/24 19:37: WBC 9.5, RBC 4.56, Hgb 10.9 L, Hct 34.7 L, MCV 76.1 L, MCH 23.9 L, MCHC 31.4 L, RDW Std Deviation 42.5, RDW Coeff of Libby 15.5 H, Plt Count 276, MPV 9.7, Immature Gran % (Auto) 0.200, Neut % (Auto) 51.7, Lymph % (Auto) 36.5, Franklin % (Auto) 9.5, Eos % (Auto) 1.6, Baso % (Auto) 0.5, Absolute Neuts (auto) 4.9, Absolute Lymphs (auto) 3.48, Nucleated RBC % 0, D-Dimer Quant (PE/DVT) Cancelled, Sodium 140, Potassium 4.8, Chloride 104, Carbon Dioxide 21.3, Anion Gap 15, BUN 29 H, Creatinine 1.37 H, Estim Creat Clear Calc 66.52, Est GFR (MDRD) Non-Af 46 L, BUN/Creatinine Ratio 20.9 H, Glucose 103 H, Calcium 10.2, Troponin T High Sens 21 H 10/05/24 20:17: D-Dimer Quant (PE/DVT) 0.42 Imaging Radiology Impression Chest X-Ray 10/05/24 20:00 IMPRESSION: No acute cardiopulmonary abnormality. Reading Location: [id number] Assessment & Plan Assessment/Plan (1) Chest pain: PLAN: Plan Patient is a 54-year-old female who presented [facility] ED on 10/05/2024 with chest pain. 1. Chest pain with mildly elevated troponins, ACS rule out ? Admit under observation status to PCU. Presented with intermittent chest painfor 3 days not worse with exertion or better with rest. Troponin trend 21 > 22. EKG normal and chest x-ray negative. Suspect troponins are elevated in settingof mild THADDEUS as below. Lower concern for ACS but cannot rule out. Echo and nuclear stress test ordered. Lipid panel, A1c and TSH ordered. Holding home BPmeds as below. Monitor cardiac telemetry. 2. Mild THADDEUS ? Creatinine 1.37 on admit, baseline around 1.0. Suspect prerenal etiology due to home medications. Given 1 L of IV fluids on admit, follow-up a.m. BMP and monitor urine output. Hold home valsartan, finerenone and empagliflozin for now. 3. Mood disorder ? Patient with flat affect and depressed/anxious appearing on admit. Have concerned this could be contributing to her chest pain presentation as above. Is on paroxetine 40 mg daily which is highest recommended dose, will continue this. Continue home Ambien at night as needed. Chronic medical conditions: ? Class III obesity: BMI 45 on admit. Complicates hospital course, care and prognosis. ? Type 2 diabetes mellitus: Follows with outpatient endocrinology, last office visit in April. Utilizes insulin pump and CGM. A1c 6.0% on admit, prior A1c's were around 6.5-7.0. Okay to use insulin pump and CGM while inpatient. Holding home empagliflozin as above. ? Hypertension: Holding home valsartan and finerenone as above. ? Hyperlipidemia: Continue home statin. ? Chronic iron deficiency anemia: Hemoglobin 10.9, MCV 76 on admit which is at her baseline. Continue home iron supplement. ? GERD: Continue home PPI. ? Hypothyroidism: TSH ordered as above. Continue home Synthroid. DVT prophylaxis: Lovenox twice daily CODE STATUS: Full code, verified Expected disposition: Home, TBD Total clinical time spent by myself addressing the patient's medical issues, reviewing all the data, and collaborating with patient's care team: 75 minutes. Charges/Coding Visit Charges Inpatient E&M: 83176 Init Hosp L3 10/05/24 2358 <Electronically signed by Junior Dunn DO> Cosigner Signature (if applicable): CC: Dr. Junior Dunn DO; Dr. Phu Espinoza MD~ Signed [facility] Work Phone: [phone] 411-602107-12-2025 History and physical note [facility] Medical Records Department [address] [place] [address] H&P Exam - Hospitalist 10/05/242109 MR#: [id number] Acct: [id number] Name: ARLEN NGUYEN Rep #:[id number] : 1970 54 From: Junior allison DO PCP: Dr. Phu Espinoza MD Status:ADM I NO Location: [place] [address] HPI - General General Date of Admission: 10/05/24 Date of Service: 10/05/24 Chief Complaint: Chest pain HPI Narrative ARLEN NGUYEN, is a 54 F who presented to [facility] ED on 10/05/2024 with chest pain. Medical history significant for class III obesity, type 2 diabetes, hypertension, hyperlipidemia, hypothyroidism, mood disorder, GERD and iron deficiency anemia. Patient reports intermittent chestdiscomfort for the past 3 days. The discomfort will radiate into her left arm at times. She will feel short of breath and dizzy with these episodes. In the ED she was normotensive, in normal sinus rhythm and stable on room air. CBC benign. BMP with creatinine 1.37, baseline around 1.0. Troponin trend 21 > 22. EKG showed normal sinus rhythm with no ST changes. Chest x-ray was unremarkable. Lastecho was from 2014 and patient has never had stress testing done. Given chest pain with need for ACS rule out, hospitalist was contacted for admission. I sawthe patient at bedside in the ED, was present. Patient was sitting backin bed fairly comfortably and in no acute distress. She did have a flat affect and appeared depressed. She reported ongoing chest pain of mild to moderate intensity currently, similar to earlier this evening. She denies any shortness of breath. Denies any other acute concerns. Will be admitted for further management. [facility] Medical History Post-menopausal Wears contact lenses Anxiety [...] Morbid obesity with BMI of 45.0-49.9, adult Home Medications ?Medication ?Instructions ?Recorded ?Last Taken ?Type albuterol sulfate 90 mcg/actuation 1 puff inhalation Q 4H PRN PRN 12/01/13 01/28/22 History aerosol inhaler (Ventolin HFA) Shortness Of Breath zolpidem 10 mg tablet (Ambien) 5 mg PO QHS PRN sleep 0 12/01/13 10/04/24 History epinephrine 0.3 mg/0.3 mL 0.3 mg (0.3 mL) IJ X1 PRN Unknown Rx injection, auto-injector Anaphylaxis ##1 atorvastatin 40 mg tablet 40 mg PO DAILY 02/03/2109/24 History cetirizine 10 mg tablet 10 mg PO DAILY 02/03/2109/24 History valsartan 320 mg tablet 320 mg PO QHS 03/07/2310/04 History metformin 1,000 mg tablet 1,000 mg PO BID 11/01/2302/18 History paroxetine HCl 40 mg tablet 40 mg PO QDAY 11/01/2302/18 History insulin lispro 200 unit/mL (3 mL) 170 unit (0.85 mL) s ubcut ONCE 05/02/24 Unknown Rx subcutaneous pen (Humalog KwikPen #76.5 mL U-200 Insulin) levothyroxine 125 mcg tablet 125 mcg PO QDAY #90 tabs 05/02/24 10/04/24 Rx empagliflozin 25 mg tablet 25 mg PO QDAY #90 tabs 05/2510/05/24 Rx (Jardiance) finerenone 10 mg tablet (Kerendia) 10 mg PO DAILY 09/24 05/21 Unknown History pantoprazole 40 mg tablet,delayed 40 mg PO DAILY 10/0510/05/24 History release polysaccharide iron complex 150 mg 150 mg PO DAILY 03/2010/05/24 History iron capsule (Ferrex) sulfamethoxazole 800 1 tab PO QHS 10/05/24 History mg-trimethoprim 160 mg tablet Allergy/AdvReac Type Severity Reaction Status Date / Time nut - unspecified Allergy Anaphylaxis Verified 10/05/24 19:16 peanut Allergy Anaphylaxis Verified 10/05/24 19:16 shellfish derived Allergy Anaphylaxis Verified 10/05/24 19:16 codeine AdvReac Rash Verified 10/05/24 19:16 prednisone AdvReac Other Verified 10/05/24 19:16 sertraline HCl (From Zoloft) AdvReac Other Verified 10/05/24 19:16 Family History Other Alcohol abuse Anxiety Arthritis Asthma Bleeding disorder Bowel disease Depression Diabetes Hypertension Severe allergy Surgical History History of endometrial ablation History of removal of ovarian cyst History of cholecystectomy Social History household members: none Smoking Status: Never smoker alcohol intake: current alcohol intake frequency: 0-2 drinks per day substance use type: does not use what type of physical activity do you participate in: walking ROS Constitutional Constitutional: Reports fatigue; Denies chills, fever(s) or weakness Eyes Eyes: Denies change in vision Cardiovascular Cardiovascular: Reports chest pain; Denies dyspnea on exertion, edema, lightheadedness, orthopnea or palpitations Respiratory/Chest Respiratory/Chest: Denies shortness of breath at rest Gastrointestinal Gastrointestinal: Denies abdominal pain Musculoskeletal Musculoskeletal: Denies arthralgias or myalgias Psychiatric Psychiatric: Reports anxiety and depression Vital Signs Vital Signs Vital Signs: 10/05/24 19:13 10/05/24 19:23 10/05/24 19:43 Temperature 98.1 F Temperature Source Oral Pulse Rate 81 73 Respiratory Rate 20 H Respiratory Effort Normal Non-Labored Blood Pressure 123/67 H 112/66 Blood Pressure Mean 85 Pulse Ox 100 Oxygen Delivery Method Room Air 10/05/24 19:47 10/05/24 20:11 10/05/24 21:00 Temperature Temperature Source Pulse Rate 80 82 Respiratory Rate 13 18 Respiratory Effort Blood Pressure 130/74 H 135/65 H Blood Pressure Mean 92 88 Pulse Ox 92 94 Oxygen Delivery Method Room Air Room Air Room Air Weight Weight: 132 kg Body Mass Index (BMI) 45.6 Physical Exam Const alert, oriented x3 and no apparent distress Constitutional Narrative: Middle-aged female, class III obesity, mildly fatigued with flat affect and depressed appearing, otherwise sitting back comfortably in bed and in no acute distress. General Appearance: cooperative and comfortable HEENT normocephalic, head/scalp atraumatic, hearing grossly normal bilaterally, nasal mucous membranes and turbinates normal and moist oral mucous membranes Eyes PERRL, EOMs intact bilaterally and conjunctivae normal Neck full ROM Chest inspection of chest normal Resp normal respiratory effort, normal air movement, no use of accessory muscles and clear to auscultation bilaterally Cardio regular rate, regular rhythm, no murmurs and peripheral pulses 2+ throughout GI normal to inspection, nondistended, normoactive bowel sounds, soft to palpation,non-tender and non-distended Back/Spine normal ROM Extremity normal to inspection, full ROM and no pedal edema Skin no rashes or lesions noted Psych mental status grossly normal Psych Narrative: Flat affect. Mood & Affect: depressed and anxious Results Lab / Micro Data 10/05/24 19:37 10/05/24 21:25 Labs: Laboratory Results - last 24 hr 10/05/24 19:37: WBC 9.5, RBC 4.56, Hgb 10.9 L, Hct 34.7 L, MCV 76.1 L, MCH 23.9 L, MCHC 31.4 L, RDWStd Deviation 42.5, RDW Coeff of Libby 15.5 H, Plt Count 276, MPV 9.7, Immature Gran % (Auto) 0.200, Neut % (Auto) 51.7, Lymph % (Auto) 36.5, Franklin % (Auto) 9.5, Eos % (Auto) 1.6, Baso % (Auto) 0.5, Absolute Neuts (auto) 4.9, Absolute Lymphs (auto) 3.48, Nucleated RBC % 0, D-Dimer Quant (PE/DVT) Cancelled, Sodium 140, Potassium 4.8, Chloride 104, Carbon Dioxide 21.3, Anion Gap 15, BUN 29 H, Creatinine 1.37 H, Estim Creat Clear Calc 66.52, Est GFR (MDRD) Non-Af 46 L, BUN/Creatinine Ratio 20.9 H, Glucose 103 H, Calcium 10.2, Troponin T High Sens 21 H 10/05/24 20:17: D-Dimer Quant (PE/DVT) 0.42 Imaging Radiology Impression Chest X-Ray 10/05/24 20:00 IMPRESSION: No acute cardiopulmonary abnormality. Reading Location: [facility] Assessment & Plan Assessment/Plan (1) Chest pain: PLAN: Plan Patient is a 54-year-old female who presented [facility] ED on 10/05/2024 with chestpain. 1. Chest pain with mildly elevated troponins, ACS rule out ? Admit under observation status to PCU. Presented with intermittent chest painfor 3 days not worsewith exertion or better with rest. Troponin trend 21 > 22. EKG normal and chest x-ray negative. Suspect troponins are elevated in settingof mild THADDEUS as below. Lower concern for ACS but cannot ruleout. Echo and nuclear stress test ordered. Lipid panel, A1c and TSH ordered. Holding home BPmeds asbelow. Monitor cardiac telemetry. 2. Mild THADDEUS ? Creatinine 1.37 on admit, baseline around 1.0. Suspect prerenal etiology due to home medications.Given 1 L of IV fluids on admit, follow-up a.m. BMP and monitor urine output. Hold home valsartan, finerenone and empagliflozin for now. 3. Mood disorder ? Patient with flat affect and depressed/anxious appearing on admit. Have concerned this could be contributing to her chest pain presentation as above. Is on paroxetine 40 mg daily which is highest recommended dose, will continue this. Continue home Ambien at night as needed. Chronic medical conditions: ? Class III obesity: BMI 45 on admit. Complicates hospital course, care and prognosis. ? Type 2 diabetes mellitus: Follows with outpatient endocrinology, last office visit in April. Utilizes insulin pump and CGM. A1c 6.0% on admit, prior A1c's were around 6.5-7.0. Okay to use insulin pump and CGM while inpatient. Holding home empagliflozin as above. ? Hypertension: Holding home valsartan and finerenone as above. ? Hyperlipidemia: Continue home statin. ? Chronic iron deficiency anemia: Hemoglobin 10.9, MCV 76 on admit which is at her baseline. Continue home iron supplement. ? GERD: Continue home PPI. ? Hypothyroidism: TSH ordered as above. Continue home Synthroid. DVT prophylaxis: Lovenox twice daily CODE STATUS: Full code, verified Expected disposition: Home, TBD Total clinical time spent by myself addressing the patient's medical issues, reviewing all the data, and collaborating with patient's care team: 75 minutes. Charges/Coding Visit Charges Inpatient E&M: 73630 Init Hosp L3 10/05/24 4655 Cosigner Signature (if applicable): CC: Dr. Junior Dunn DO; Dr. Phu Espinoza MD~ Signed [facility]07-12-2025 Discharge summary Author [facility] Note Date/Time October 05, 2024 9:51 pm [facility] Medical Records Department [address] [place] [address] Emergency Department Summary 10/05/24 MR#: [id number] Acct: [id number] Name: ARLEN NGUYEN Rep #:[id number] : 1970 54 From: Anton Thacker DO PCP: Dr. Phu Espinoza MD Status:ADM I NO Location: [place] [address] HPI History of Present Illness Chief Complaint: Chest Pain Detail of Chief Complaint: Chest pain Informant: patient and spouse/S.O. Narrative Narrative: Patient presents with left-sided chest pain that started 3 days ago. Pain seemed to intensify today. Describes it as a pressure or heaviness at times andat times it sharp. Also was noted sometimes with walking her heart rate will dip down into the 30s. Patient states the discomfort sometimes radiates to her left arm. Feels somewhat short of breath and dizzy. Denies recent surgery although she recently had travel to [place] by car but it was less than 4 hours. No history of PE or DVT. She has no heart history. She is a diabetic and has history of hypertension and high cholesterol. Patient also with historyof anxiety and history of GERD. Currently rates her pain a 5 out of 10. [facility] Medical History Post-menopausal Wears contact lenses Anxiety [...] Morbid obesity with BMI of 45.0-49.9, adult Home Medications ?Medication ?Instructions ?Recorded ?Last Taken ?Type albuterol sulfate 90 mcg/actuation 1 puff inhalation Q 4H PRN PRN 12/01/13 01/28/22 History aerosol inhaler (Ventolin HFA) Shortness Of Breath zolpidem 10 mg tablet (Ambien) 5 mg PO QHS PRN sleep 0 12/01/13 02/03/22 History epinephrine 0.3 mg/0.3 mL 0.3 mg (0.3 mL) IJ X1 PRN Unknown Rx injection, auto-injector Anaphylaxis ##1 atorvastatin 40 mg tablet 40 mg PO DAILY 02/03/2101/25 History cetirizine 10 mg tablet 10 mg PO DAILY 02/03/2101/25 History valsartan 320 mg tablet 320 mg PO QHS 03/07/23 Unkno wn History metformin 1,000 mg tablet 1,000 mg PO BID 11/01/23 Unk nown History paroxetine HCl 40 mg tablet 40 mg PO QDAY 11/01/23 Unk nown History insulin lispro 200 unit/mL (3 mL) 170 unit (0.85 mL) s ubcut ONCE 05/02/24 Unknown Rx subcutaneous pen (Humalog AlyssaPen #76.5 mL U-200 Insulin) levothyroxine 125 mcg tablet 125 mcg PO QDAY #90 tabs 05/02/24 Unknown Rx empagliflozin 25 mg tablet 25 mg PO QDAY #90 tabs 05/25 10/18 Unknown Rx (Jardiance) finerenone 10 mg tablet (Kerendia) 10 mg PO DAILY 09/24 05/21 Unknown History pantoprazole 40 mg tablet,delayed 40 mg PO DAILY 10/05 Unknown History release polysaccharide iron complex 150 mg 150 mg PO DAILY 03/20 Unknown History iron capsule (Ferrex) sulfamethoxazole 800 1 tab PO QHS 10/05/24 Unknow n History mg-trimethoprim 160 mg tablet Allergy/AdvReac Type Severity Reaction Status Date / Time nut - unspecified Allergy Anaphylaxis Verified 10/05/24 19:16 peanut Allergy Anaphylaxis Verified 10/05/24 19:16 shellfish derived Allergy Anaphylaxis Verified 10/05/24 19:16 codeine AdvReac Rash Verified 10/05/24 19:16 prednisone AdvReac Other Verified 10/05/24 19:16 sertraline HCl (From Zoloft) AdvReac Other Verified 10/05/24 19:16 Family History Other Alcohol abuse Anxiety Arthritis Asthma Bleeding disorder Bowel disease Depression Diabetes Hypertension Severe allergy Surgical History History of endometrial ablation History of removal of ovarian cyst History of cholecystectomy Social History household members: none Smoking Status: Never smoker alcohol intake: current alcohol intake frequency: 0-2 drinks per day substance use type: does not use what type of physical activity do you participate in: walking ROS ROS ED Review of Systems ROS Unobtainable: other Constitutional Constitutional ED: Reports lethargy; Denies chills, fever(s), sweats or weight loss Eyes Eyes: Denies blurry vision, change in vision or diplopia ENT ENT ED: Denies rhinorrhea or sore throat Cardiovascular Cardiovascular: Reports chest pain; Denies orthopnea or racing heartbeat Respiratory/Chest Respiratory/Chest: Reports dyspnea; Denies cough, dyspnea on exertion, orthopneaor sputum Gastrointestinal Gastrointestinal: Reports nausea; Denies abdominal pain, diarrhea or vomiting Genitourinary Genitourinary ED: Denies dysuria, hematuria or urinary frequency Musculoskeletal Musculoskeletal: Denies arthralgias, back pain, myalgias or neck pain Integumentary Denies abscess, Abrasions or rash Neurologic Neurologic: Denies headache(s) or weakness Psychiatric Psychiatric: Denies anxiety, depression or suicidal thoughts Endocrine Endocrinology: Denies polydipsia, polyphagia or polyuria Hematologic/Lymphatic Hematologic/Lymphatic: Denies easy bleeding, easy bruising or lymphadenopathy Allergic/Immunologic Allergic/Immunologic ED: Denies mouth swelling, tongue swelling or urticaria EXAM Physical Exam Const Vital Signs: 10/05/24 19:13 10/05/24 19:23 10/05/24 19:43 Temperature 98.1 F Temperature Source Oral Pulse Rate 81 73 Respiratory Rate 20 H Respiratory Effort Normal Non-Labored Blood Pressure 123/67 H 112/66 Blood Pressure Mean 85 Pulse Ox 100 Oxygen Delivery Method Room Air 10/05/24 19:47 10/05/24 20:11 Temperature Temperature Source Pulse Rate 80 Respiratory Rate 13 Respiratory Effort Blood Pressure 130/74 H Blood Pressure Mean 92 Pulse Ox 92 Oxygen Delivery Method Room Air Room Air Positive well nourished and well developed General Appearance ED: well developed and NAD HEENT Reports TM's clear and moist mucous membranes normocephalic and atraumatic; Negative for trauma or tenderness Tympanic Membrane ED: Yes TM's clear Eyes PERRL and EOMs intact bilaterally General Eye ED: Negative for pale conjunctiva or scleral icterus Neck no lymphadenopathy, supple and no JVD General: Negative for tenderness Chest Wall inspection of chest normal and palpation of chest normal Chest: Negative for tenderness Resp normal respiratory effort and clear to auscultation bilaterally Effort and Inspection: Negative for respiratory distress or pain with movement Auscultation: Negative for rhonchi, wheezes or diminished lung sounds Cardio regular rate, regular rhythm, S1 normal heart sound, S2 normal heart sound and no murmurs Peripheral Pulses: pulses 2+ throughout GI normal to inspection, nondistended, normoactive bowel sounds, soft to palpation,non-tender, non-distended and no masses Back/Spine no CVA tenderness and no thoracic nor lumbar tenderness Extremity normal to inspection General Extremety ED: Negative for edema General Extremity: Negative for edema Neuro oriented x3, CN's II-XII intact bilaterally, no sensory deficits noted and gait normal Sensorium / Orientation: awake, alert, oriented to person, oriented to place andoriented to time Motor Exam: strength 5/5 throughout and strength abnormal Psych mental status grossly normal Skin no rashes or lesions noted and no wounds Heart Score History: Highly Suspicious ECG: Normal Age: >45 - <65 years Risk Factors: >/= 3 Risk Factors or History of CAD Troponin: >1 - <3 Normal Limit Score: 6 MDM MDM MDM Narrative Medical decision making narrative: Patient presents with chest pain x 3 days. She complains of some dyspnea and a pressure that radiates to her left arm. In the differential would be acute coronary syndrome versus PE or pneumothorax or less likely infectious etiology. IV line established. EKG obtained on arrival shows sinus rhythm with ventricular rate of 73 bpm with no acute ST segment changes. CBC with differential shows a white count of 9.5 with hemoglobin 10.9 and platelet count 276. Chemistries unremarkable. D- dimer was normal at 0.42. Troponin was elevated at 21. Chest x-ray 1 view unremarkable. Case will be discussed with hospitalist to evaluate patient for admission. While in the department she did receive aspirin and was given sublingual nitro which just minimally helped her pain. I did order 4 mg of morphine. Lab Data Attestation: I reviewed the patient's lab results. Labs: Laboratory Results - last 24 hr 10/05/24 10/05/24 19:37 20:17 WBC 9.5 RBC 4.56 Hgb 10.9 L Hct 34.7 L MCV 76.1 L MCH 23.9 L MCHC 31.4 L RDW Std Deviation 42.5 RDW Coeff of Libby 15.5 H Plt Count 276 MPV 9.7 Immature Gran % (Auto) 0.200 Neut % (Auto) 51.7 Lymph % (Auto) 36.5 Franklin % (Auto) 9.5 Eos % (Auto) 1.6 Baso % (Auto) 0.5 Absolute Neuts (auto) 4.9 Absolute Lymphs (auto) 3.48 Nucleated RBC % 0 D-Dimer Quant (PE/DVT) Cancelled 0.42 Sodium 140 Potassium 4.8 Chloride 104 Carbon Dioxide 21.3 Anion Gap 15 BUN 29 H Creatinine 1.37 H Estim Creat Clear Calc 66.52 Est GFR (MDRD) Non-Af 46 L BUN/Creatinine Ratio 20.9 H Glucose 103 H Calcium 10.2 Troponin T High Sens 21 H Radiography Diagnostic Testing: Clinical Impression(s) from Imaging Studies Chest X-Ray 10/05/24 20:00 IMPRESSION: No acute cardiopulmonary abnormality. Reading Location: [id number] 1 view chest x-ray obtained interpreted by myself as no evidence of acute disease process. Radiology in agreement. EKG Initial EKG: Attestation: I personally reviewed and interpreted this EKG as follows: Comments: Sinus rhythm with ventricular rate of 73 bpm with no acute ST segment changes Discharge Plan Triage Chief Complaint: Chest Pain ED Provider: Anton Thacker Dx/Rx/DC Orders Clinical Impression: Chest pain, Acute coronary syndrome, Diabetes, Hypertension Prescriptions: No Action metformin 1,000 mg tablet 1,000 mg PO BID paroxetine HCl 40 mg tablet 40 mg PO QDAY Humalog KwikPen Insulin 200 unit/mL (3 mL) insulin pen 170 unit subcut ONCE Qty: 76.5 1RF Rx Instructions: to be used in insulin pump zolpidem [Ambien] 10 MG tablet 5 mg PO QHS PRN (Reason: sleep) Patient Comments: sleeping pill albuterol sulfate [Ventolin HFA] 1 INHALER inhaler 1 puff inhalation Q4H PRN PRN (Reason: Shortness Of Breath) Patient Comments: breathing epinephrine 0.3 MG/0.3 ML auto-injector 0.3 mg IJ X1 PRN (Reason: Anaphylaxis) Qty: 1 0RF atorvastatin 40 mg Tablet 40 mg PO DAILY cetirizine 10 mg Tablet 10 mg PO DAILY valsartan 320 mg tablet 320 mg PO QHS sulfamethoxazole-trimethoprim 800-160 mg tablet 1 tab PO QHS pantoprazole 40 mg tablet,delayed release (DR/EC) 40 mg PO DAILY polysaccharide iron complex [Ferrex 150] 150 mg iron capsule 150 mg PO DAILY Kerendia 10 mg tablet 10 mg PO DAILY levothyroxine 125 mcg tablet 125 mcg PO QDAY Qty: 90 1RF Jardiance 25 mg tablet 25 mg PO QDAY Qty: 90 1RF Primary Care Provider: Phu Espinoza Chi Referrals: Phu Espinoza Chi, MD [Primary Care Provider] - Print Language: Ecuadorean Disposition Disposition: Acute Care Hospital [facility] What to do if you have Problems For any increased pain, shortness of breath, bleeding, nausea or vomiting, chestpain, or any unexpected problems, contact your Primary Care Provider. Call [facility] ([phone]) or report to the closest Emergency Room. Call 911 if necessary. 10/05/242150 <Electronically signed by Anton Thacker DO> Cosigner Signature (if applicable): CC: Dr. Phu Espinoza MD ~ Signed [facility] Work Phone: 1(380) 120-225407-12-2025 Evaluation note* Diagnosis Onset Date Resolution Status Admit Date Acute coronary syndrome acute J amile 2024 9:10pm Chest pain acute October 05 9:10pm Diabetes acute October 05 9:10pm Hypertension chronic October 05, 025 9:10pm [facility] Work Phone: 1(893) 170-143007-12-2025 Evaluation note* Diagnosis Onset Date Resolution Status Admit Date Diabetes acute October 05 9:10pm Hypertension chronic October 05, 2 025 9:10pm Chest pain resolved October 05 9:10pm Acute coronary syndrome inactive J maile 2024 9:10pm [facility] Work Phone: 1(629) 288-803007-12-2025 Discharge summary [facility] Medical Records Department [address] [place] [address] Emergency Department Summary 10/05/24 MR#: [id number] Acct: [id number] Name: ARLEN NGUYEN Rep #:[id number] : 1970 54 From: Anton Thacker DO PCP: Dr. Phu Espinoza MD Status:ADM I NO Location: [place] [address] HPI History of Present Illness Chief Complaint: Chest Pain Detail of Chief Complaint: Chest pain Informant: patient and spouse/S.O. Narrative Narrative: Patient presents with left-sided chest pain that started 3 days ago. Pain seemed to intensify today. Describes it as a pressure or heaviness at times andat times it sharp. Also was noted sometimes with walking her heart rate will dip down into the 30s. Patient states the discomfort sometimes radiates to her left arm. Feels somewhat short of breath and dizzy. Denies recent surgery although she recently had travel to [place] by car but it was less than 4 hours. No history of PE or DVT. She has no heart history. She is a diabetic and has history of hypertension and high cholesterol. Patient also with historyof anxiety and history of GERD. Currently rates her pain a 5 out of 10. [facility] Medical History Post-menopausal Wears contact lenses Anxiety [...] Morbid obesity with BMI of 45.0-49.9, adult Home Medications ?Medication ?Instructions ?Recorded ?Last Taken ?Type albuterol sulfate 90 mcg/actuation 1 puff inhalation Q 4H PRN PRN 12/01/13 01/28/22 History aerosol inhaler (Ventolin HFA) Shortness Of Breath zolpidem 10 mg tablet (Ambien) 5 mg PO QHS PRN sleep 0 12/01/13 02/03/22 History epinephrine 0.3 mg/0.3 mL 0.3 mg (0.3 mL) IJ X1 PRN Unknown Rx injection, auto-injector Anaphylaxis ##1 atorvastatin 40 mg tablet 40 mg PO DAILY 02/03/2101/25 History cetirizine 10 mg tablet 10 mg PO DAILY 02/03/2101/25 History valsartan 320 mg tablet 320 mg PO QHS 03/07/23 Unkno wn History metformin 1,000 mg tablet 1,000 mg PO BID 11/01/23 Unk nown History paroxetine HCl 40 mg tablet 40 mg PO QDAY 11/01/23 Unk nown History insulin lispro 200 unit/mL (3 mL) 170 unit (0.85 mL) s ubcut ONCE 05/02/24 Unknown Rx subcutaneous pen (Humalog KwikPen #76.5 mL U-200 Insulin) levothyroxine 125 mcg tablet 125 mcg PO QDAY #90 tabs 05/02/24 Unknown Rx empagliflozin 25 mg tablet 25 mg PO QDAY #90 tabs 05/25 10/18 Unknown Rx (Jardiance) finerenone 10 mg tablet (Kerendia) 10 mg PO DAILY 09/24 05/21 Unknown History pantoprazole 40 mg tablet,delayed 40 mg PO DAILY 10/05 Unknown History release polysaccharide iron complex 150 mg 150 mg PO DAILY 03/20 Unknown History iron capsule (Ferrex) sulfamethoxazole 800 1 tab PO QHS 10/05/24 Unknow n History mg-trimethoprim 160 mg tablet Allergy/AdvReac Type Severity Reaction Status Date / Time nut - unspecified Allergy Anaphylaxis Verified 10/05/24 19:16 peanut Allergy Anaphylaxis Verified 10/05/24 19:16 shellfish derived Allergy Anaphylaxis Verified 10/05/24 19:16 codeine AdvReac Rash Verified 10/05/24 19:16 prednisone AdvReac Other Verified 10/05/24 19:16 sertraline HCl (From Zoloft) AdvReac Other Verified 10/05/24 19:16 Family History Other Alcohol abuse Anxiety Arthritis Asthma Bleeding disorder Bowel disease Depression Diabetes Hypertension Severe allergy Surgical History History of endometrial ablation History of removal of ovarian cyst History of cholecystectomy Social History household members: none Smoking Status: Never smoker alcohol intake: current alcohol intake frequency: 0-2 drinks per day substance use type: does not use what type of physical activity do you participate in: walking ROS ROS ED Review of Systems ROS Unobtainable: other Constitutional Constitutional ED: Reports lethargy; Denies chills, fever(s), sweats or weight loss Eyes Eyes: Denies blurry vision, change in vision or diplopia ENT ENT ED: Denies rhinorrhea or sore throat Cardiovascular Cardiovascular: Reports chest pain; Denies orthopnea or racing heartbeat Respiratory/Chest Respiratory/Chest: Reports dyspnea; Denies cough, dyspnea on exertion, orthopneaor sputum Gastrointestinal Gastrointestinal: Reports nausea; Denies abdominal pain, diarrhea or vomiting Genitourinary Genitourinary ED: Denies dysuria, hematuria or urinary frequency Musculoskeletal Musculoskeletal: Denies arthralgias, back pain, myalgias or neck pain Integumentary Denies abscess, Abrasions or rash Neurologic Neurologic: Denies headache(s) or weakness Psychiatric Psychiatric: Denies anxiety, depression or suicidal thoughts Endocrine Endocrinology: Denies polydipsia, polyphagia or polyuria Hematologic/Lymphatic Hematologic/Lymphatic: Denies easy bleeding, easy bruising or lymphadenopathy Allergic/Immunologic Allergic/Immunologic ED: Denies mouth swelling, tongue swelling or urticaria EXAM Physical Exam Const Vital Signs: 10/05/24 19:13 10/05/24 19:23 10/05/24 19:43 Temperature 98.1 F Temperature Source Oral Pulse Rate 81 73 Respiratory Rate 20 H Respiratory Effort Normal Non-Labored Blood Pressure 123/67 H 112/66 Blood Pressure Mean 85 Pulse Ox 100 Oxygen Delivery Method Room Air 10/05/24 19:47 10/05/24 20:11 Temperature Temperature Source Pulse Rate 80 Respiratory Rate 13 Respiratory Effort Blood Pressure 130/74 H Blood Pressure Mean 92 Pulse Ox 92 Oxygen Delivery Method Room Air Room Air Positive well nourished and well developed General Appearance ED: well developed and NAD HEENT Reports TM's clear and moist mucous membranes normocephalic and atraumatic; Negative for trauma or tenderness Tympanic Membrane ED: Yes TM's clear Eyes PERRL and EOMs intact bilaterally General Eye ED: Negative for pale conjunctiva or scleral icterus Neck no lymphadenopathy, supple and no JVD General: Negative for tenderness Chest Wall inspection of chest normal and palpation of chest normal Chest: Negative for tenderness Resp normal respiratory effort and clear to auscultation bilaterally Effort and Inspection: Negative for respiratory distress or pain with movement Auscultation: Negative for rhonchi, wheezes or diminished lung sounds Cardio regular rate, regular rhythm, S1 normal heart sound, S2 normal heart sound and no murmurs Peripheral Pulses: pulses 2+ throughout GI normal to inspection, nondistended, normoactive bowel sounds, soft to palpation,non-tender, non-distended and no masses Back/Spine no CVA tenderness and no thoracic nor lumbar tenderness Extremity normal to inspection General Extremety ED: Negative for edema General Extremity: Negative for edema Neuro oriented x3, CN's II-XII intact bilaterally, no sensory deficits noted and gait normal Sensorium / Orientation: awake, alert, oriented to person, oriented to place andoriented to time Motor Exam: strength 5/5 throughout and strength abnormal Psych mental status grossly normal Skin no rashes or lesions noted and no wounds Heart Score History: Highly Suspicious ECG: Normal Age: >45 - <65 years Risk Factors: >/= 3 Risk Factors or History of CAD Troponin: >1 - <3 Normal Limit Score: 6 MDM MDM MDM Narrative Medical decision making narrative: Patient presents with chest pain x 3 days. She complains of some dyspnea and a pressure that radiates to her left arm. In the differential would be acute coronary syndrome versus PE or pneumothorax or less likely infectious etiology. IV line established. EKG obtained on arrival shows sinus rhythm with ventricular rate of 73 bpm with no acute ST segment changes. CBC with differential shows a whitecount of 9.5 with hemoglobin 10.9 and platelet count 276. Chemistries unremarkable. D-dimer was normal at 0.42. Troponin was elevated at 21. Chest x- ray 1 view unremarkable. Case will be discussed with hospitalist to evaluate patient for admission. While in the department she did receive aspirin and was given sublingual nitro which just minimally helped her pain. I did order 4 mg of morphine. Lab Data Attestation: I reviewed the patient's lab results. Labs: Laboratory Results - last 24 hr 10/05/24 10/05/24 19:37 20:17 WBC 9.5 RBC 4.56 Hgb 10.9 L Hct 34.7 L MCV 76.1 L MCH 23.9 L MCHC 31.4 L RDW Std Deviation 42.5 RDW Coeff of Libby 15.5 H Plt Count 276 MPV 9.7 Immature Gran % (Auto) 0.200 Neut % (Auto) 51.7 Lymph % (Auto) 36.5 Franklin % (Auto) 9.5 Eos % (Auto) 1.6 Baso % (Auto) 0.5 Absolute Neuts (auto) 4.9 Absolute Lymphs (auto) 3.48 Nucleated RBC % 0 D-Dimer Quant (PE/DVT) Cancelled 0.42 Sodium 140 Potassium 4.8 Chloride 104 Carbon Dioxide 21.3 Anion Gap 15 BUN 29 H Creatinine 1.37 H Estim Creat Clear Calc 66.52 Est GFR (MDRD) Non-Af 46 L BUN/Creatinine Ratio 20.9 H Glucose 103 H Calcium 10.2 Troponin T High Sens 21 H Radiography Diagnostic Testing: Clinical Impression(s) from Imaging Studies Chest X-Ray 10/05/24 20:00 IMPRESSION: No acute cardiopulmonary abnormality. Reading Location: [facility] 1 view chest x-ray obtained interpreted by myself as no evidence of acute disease process. Radiology in agreement. EKG Initial EKG: Attestation: I personally reviewed and interpreted this EKG as follows: Comments: Sinus rhythm with ventricular rate of 73 bpm with no acute ST segment changes Discharge Plan Triage Chief Complaint: Chest Pain ED Provider: Anton Thacker Dx/Rx/DC Orders Clinical Impression: Chest pain, Acute coronary syndrome, Diabetes, Hypertension Prescriptions: No Action metformin 1,000 mg tablet 1,000 mg PO BID paroxetine HCl 40 mg tablet 40 mg PO QDAY Humalog KwikPen Insulin 200 unit/mL (3 mL) insulin pen 170 unit subcut ONCE Qty: 76.5 1RF Rx Instructions: to be used in insulin pump zolpidem [Ambien] 10 MG tablet 5 mg PO QHS PRN (Reason: sleep) Patient Comments: sleeping pill albuterol sulfate [Ventolin HFA] 1 INHALER inhaler 1 puff inhalation Q4H PRN PRN (Reason: Shortness Of Breath) Patient Comments: breathing epinephrine 0.3 MG/0.3 ML auto-injector 0.3 mg IJ X1 PRN (Reason: Anaphylaxis) Qty: 1 0RF atorvastatin 40 mg Tablet 40 mg PO DAILY cetirizine 10 mg Tablet 10 mg PO DAILY valsartan 320 mg tablet 320 mg PO QHS sulfamethoxazole-trimethoprim 800-160 mg tablet 1 tab PO QHS pantoprazole 40 mg tablet,delayed release (DR/EC) 40 mg PO DAILY polysaccharide iron complex [Ferrex 150] 150 mg iron capsule 150 mg PO DAILY Kerendia 10 mg tablet 10 mg PO DAILY levothyroxine 125 mcg tablet 125 mcg PO QDAY Qty: 90 1RF Jardiance 25 mg tablet 25 mg PO QDAY Qty: 90 1RF Primary Care Provider: Phu Espinoza Chi Referrals: Phu Espinoza Chi, MD [Primary Care Provider] - Print Language: Ecuadorean Disposition Disposition: Acute Care Hospital [facility] What to do if you have Problems For any increased pain, shortness of breath, bleeding, nausea or vomiting, chestpain, or any unexpected problems, contact your Primary Care Provider. Call [facility] ([phone]) or report tothe closest Emergency Room. Call 911 if necessary. 10/05/242150 Cosigner Signature (if applicable): CC: Dr. Phu Espinoza MD ~ Signed [facility]07-12-2025 Radiology Diagnostic study note [facility] Imaging Services [address] [place], [place] [id number] Chest 1 View (Portable) MR#: [id number] Acct: [id number] Name: ARLEN NGUYEN Rep #: [id number] : 1970 F 54 From: Kylah Caraballo MD PCP: Dr. Phu Espinoza MD Status: REG E R Study:Chest 1 View (Portable) Date of Exam: 10/05/24 Exam# [id number] Ordering Dr: Arabella Thacker DO PROCEDURE: CHEST 1 VIEW (PORTABLE) 10/05/2024 REASON FOR EXAM: CHEST PAIN TECHNIQUE: Frontal view of the chest. COMPARISON: Chest radiographs on 03/04/2024 and 03/03/2021 FINDINGS: Hardware: None Heart: Cardiac and mediastinal contours are stable given differences in technique. Lungs: No focal consolidation or pleural effusion. Eventration of the right hemidiaphragm is unchanged. Bones: Unremarkable RAD/Chest 1 View (Portable) IMPRESSION: No acute cardiopulmonary abnormality. Reading Location: [facility] CC: Dr. Anton Thacker DO; Dr. Phu Espinoza MD ~ Dehydrogenation Converter Operator: Signed [facility]07-12-2025 Evaluation note* Diagnosis Onset Date Resolution Status Admit Date Acute coronary syndrome acute J maile 2024 9:10pm Chest pain acute October 05 9:10pm Diabetes acute October 05 9:10pm Hypertension chronic October 05, 025 9:10pm [facility] Work Phone: 1(297) 590-720812-27-2024 Evaluation note* Diagnosis Onset Date Resolution Status Admit Date Incisional hernia acute Decembe r 2023 1:20pm CKD (chronic kidney disease) stage 3, GFR 30-59 ml/min chronic Februa 2024 11:39am Diabetes chronic May 02, 2024 11:39am High cholesterol chronic May 02, 2024 11:39am Hypertension chronic April 11:39am Hypothyroidism chronic May 022024 11:39am Microalbuminuria chronic May 02, 2024 11:39am Obesity chronic May 02, 2024 11:39am [facility] Work Phone: 1(473) 207-839912-18-2023 History and physical note Author Jodi Agee [facility] March 13, 2023 7:14am Note Date/Time March 13, 2023 7:12am [facility] Medical Records Department [address] [place] [address] History & Physical Exam 03/13/23 0710 MR#: [id number] Acct: [id number] Name: ARLEN NGUYEN Rep #:[id number] : 1970 52 From: Jodi Agee MD PCP: Dr. Phu Espinoza MD Status:REG S DC Location: [place] [address] History and Physical Date of Admission: 03/13/23 Date of Service: 02/15/23 MR#: [id number] Acct: [id number] Name: ARLEN NGUYEN Rep #: [id number] : 1970 Provider: Dr. Jodi Agee MD Age/Sex: 52/F Location: [facility] Status: Signed Intake Vital Signs 11/17/2309:41 02/15/2314:17 Height 5 ft 7.5 in 5 ft 7 in Weight: 277 lb BMI 43.4 BP 114/75 Blood Pressure Location Rt brachial Position Sitting Respiration 18 Intake Visit Reasons: Anemia Chief Complaint: anemia Automation Lead Required: No Is patient in pain?: No [...] has been running between 10 and mid 11's. Patient states she did have EGD a [...] not take any other PPI or other jjey-ssd-qmsopib medications. Patient is adopted does not know [...] healthy appearing, comfortable and no acute distress HENMT Head: normocephalic and atraumatic Neck Neck: supple [...] Dulcolax split prep. Jodi Agee M.D. Pager: [phone] [facility] [address] [place] [address], [address] [place] [address] Office: [phone] Coding Level of Care Code Off vis,new,level [...] are no clinicalchanges since date of exam. 03/13/23713<Electronically signed by Jodi Agee MD> Cosigner Signature (if applicable): cc: Dr. Phu Espinoza MD; Dr. Jodi Agee MD ~* Signed [facility] Work Phone: 1(227) 469-340112-18-2023 Procedure [facility] 03-13-2023 Procedure [facility]12-18-2023 Procedure note [facility]12-18-2023 Procedure [facility] Discharge summary Author Octavio Archuleta [facility] Note Date/Time October 07, 2024 4:16 pm [facility] Medical Records Department [address] [address] Discharge Summary 10/07/24 1608 MR#: [id number] Acct: [id number] Name: ARLEN NGUYEN Rep #:[id number] : 1970 54 From: Octavio Archuleta MD PCP: Dr. Phu Espinoza MD Status:ADM I NO Location: [place] [address]- Providers Date of Admission: 10/05/24 Date of Discharge: 10/07/24 Primary Care Physician: Dr. Phu Espinoza MD Reason For Visit: CHEST PAIN Diagnosis Discharge Diagnosis (1) Chest pain: Status: Acute Code(s): R07.9 - Chest pain, unspecified Plan Patient is a 54-year-old female who presented with chest pain 1. Chest pain ? Patient was placed on a monitored bed NE was ruled out with serial cardiac enzymes as part of patient's evaluation a nuclear stress test was ordered ? Patient nuclear stress test was negative for stress-induced ischemia dischargehim instructed to follow-up with primary care physician for subsequent 2. Class III obesity with BMI of 45.2 ? Complicating care weight loss advised 3. Hypertension ? Blood pressure controlled, home medications continued with dose adjustment as needed 4. Dyslipidemia ?Patient is on statin therapy, continued at home dose 5. GERD ? On PPI 6. Hypothyroidism ? Patient is on levothyroxine home dose continued 7.Anemia ? Secondary to chronic disorder monitoring H&H and transfuse if patient becomes symptomatic or hemoglobin falls below 7 8. n Acute kidney injury ? Baseline creatinine 1.97 patient creatinine on admission was 1.37. Rehydratedwith IV fluids with holding of potential nephrotoxic medication 9. DVT prophylaxis ? Subcu heparin Medications at Discharge Home Medications albuterol sulfate 90 mcg/actuation aerosol inhaler (Ventolin HFA) 1 puff inhalation Q4H PRN PRN Shortness Of Breath 12/01/13 zolpidem 10 mg tablet (Ambien) 5 mg PO QHS PRN sleep 12/01/13 epinephrine 0.3 mg/0.3 mL injection, auto-injector 0.3 mg (0.3 mL) IJ X1 PRN Anaphylaxis ##1 02/03/19 atorvastatin 40 mg tablet 40 mg PO DAILY 02/03/21 cetirizine 10 mg tablet 10 mg PO DAILY 02/03/21 valsartan 320 mg tablet 320 mg PO QHS 03/07/23 metformin 1,000 mg tablet 1,000 mg PO BID 11/01/23 paroxetine HCl 40 mg tablet 40 mg PO QDAY 11/01/23 insulin lispro 200 unit/mL (3 mL) subcutaneous pen (Humalog KwikPen U-200 Insulin) 170 unit (0.85 mL) subcut ONCE #76.5 mL 05/02/24 levothyroxine 125 mcg tablet 125 mcg PO QDAY #90 tabs 05/02/24 empagliflozin 25 mg tablet (Jardiance) 25 mg PO QDAY #90 tabs 06/10/24 finerenone 10 mg tablet (Kerendia) 10 mg PO DAILY 10/05/24 pantoprazole 40 mg tablet,delayed release 40 mg PO DAILY 10/05/24 polysaccharide iron complex 150 mg iron capsule (Ferrex) 150 mg PO DAILY 10/05/24 sulfamethoxazole 800 mg-trimethoprim 160 mg tablet 1 tab PO QHS 10/05/24 Hospital Course Summary of Care Provided Minutes Spent on Discharge: 35 Physical Exam Narrative GENERAL: cooperative HEENT: Atraumatic; normocephalic EYES; Anicteric, Normal Conjunctiva NECK; supple, normal thyroid, RESPIRATORY: Diminished to auscultation CARDIOVASCULAR: Regular S1 S2, GI: soft, normoactive bowel sounds, : No Renal angle tenderness; EXTREMITIES: No edema, no clubbing, MUSCULOSKELETAL: no muscle wasting NEURO: Awake; no lateralizing signs. SKIN: No Rash PSYCH; Flat affect Weight / BMI Weight Weight: 130.9 kg Body Mass Index (BMI) 45.1 ABG / Lab / Microbiology Data 10/07/24 03:28 10/07/24 03:28 Laboratory: Laboratory Results - last 24 hr 10/06/24 16:06: POC Glucose 154 H 10/06/24 22:49: POC Glucose 180 H 10/07/24 03:28: WBC 6.6, RBC 4.32, Hgb 10.5 L, Hct 33.6 L, MCV 77.8 L, MCH 24.3 L, MCHC 31.3 L, RDW Std Deviation 43.3, RDW Coeff of Libby 15.3 H, Plt Count 242, MPV 10.6, Immature Gran % (Auto) 0.300, Neut % (Auto) 48.3, Lymph % (Auto) 37.9,Franklin % (Auto) 10.8 H, Eos % (Auto) 2.1, Baso % (Auto) 0.6, Absolute Neuts (auto)Not Reportable, Sodium 140, Potassium 4.3, Chloride 104, Carbon Dioxide 23.7, Anion Gap 12, BUN 24 H, Creatinine 1.08, Estim Creat Clear Calc 83.97, Est GFR (MDRD) Non- Af 61, BUN/Creatinine Ratio 22.1 H, Glucose 150 H, Calcium 9.9, Magnesium 1.9, Total Bilirubin 0.29, AST 56 H, ALT 58 H, Alkaline Phosphatase 46, Total Protein 7.0, Albumin 4.1, Globulin 2.9, Albumin/Globulin Ratio 1.4, Triglycerides 196, Cholesterol 113, LDL Cholesterol, Calc 44, VLDL Cholesterol 39, HDL Cholesterol 30 L, Cholesterol/HDL Ratio 3.77 10/07/24 06:11: POC Glucose 167 H 10/07/24 11:18: POC Glucose 178 H Radiography Diagnostic Testing: Radiology Impression Echocardiogram 10/05/24 21:14 Interpretation Summary The LV ejection fraction is 65 %. Stage 1 diastolic dysfunction. Ordering Physician: Junior Dunn Referring Physician: Phu Espinoza Chi Performed By: Naomie, [place], RDCS D/C Instructions Discharge Activity: Return to Normal Activity Call your doctor if you observe: Fever of 101 or Higher, Shortness of breath, Fainting spells and Chest pain DC O2, CPAP, BIPAP Needs Home O2 Discharge instructions: No Meaningful Use Info Meaningful Use Meaningful Use Diagnoses (Choose all that apply): None applicable Discharge Plan Admission Admit Date/Time: 10/05/24 21:10 Attending Provider: Octavio Archuleta Primary Care Provider: Phu Espinoza Chi Consulting Providers: Junior Dunn; Megan Gomez Discharge Orders/Prescriptions Prescriptions: Continued metformin 1,000 mg tablet 1,000 mg PO BID paroxetine HCl 40 mg tablet 40 mg PO QDAY Humalog KwikPen Insulin 200 unit/mL (3 mL) insulin pen 170 unit subcut ONCE Qty: 76.5 1RF Rx Instructions: to be used in insulin pump zolpidem [Ambien] 10 MG tablet 5 mg PO QHS PRN (Reason: sleep) Patient Comments: sleeping pill albuterol sulfate [Ventolin HFA] 1 INHALER inhaler 1 puff inhalation Q4H PRN PRN (Reason: Shortness Of Breath) Patient Comments: breathing epinephrine 0.3 MG/0.3 ML auto-injector 0.3 mg IJ X1 PRN (Reason: Anaphylaxis) Qty: 1 0RF atorvastatin 40 mg Tablet 40 mg PO DAILY cetirizine 10 mg Tablet 10 mg PO DAILY valsartan 320 mg tablet 320 mg PO QHS sulfamethoxazole-trimethoprim 800-160 mg tablet 1 tab PO QHS pantoprazole 40 mg tablet,delayed release (DR/EC) 40 mg PO DAILY polysaccharide iron complex [Ferrex 150] 150 mg iron capsule 150 mg PO DAILY Kerendia 10 mg tablet 10 mg PO DAILY levothyroxine 125 mcg tablet 125 mcg PO QDAY Qty: 90 1RF Jardiance 25 mg tablet 25 mg PO QDAY Qty: 90 1RF Referrals / Follow Up: Phu Espinoza Chi, MD [Primary Care Provider] - Disposition Disposition (needs filled in before D/C Order can be placed): Home, Self Care Charges/Coding Visit Charges Inpatient E&M: 72687 Disch Hosp >30min 10/07/24 1617 <Electronically signed by Octavio Archuleta MD> Cosigner Signature (if applicable): CC: Dr. Octavio Archuleta MD; Dr. Phu Espinoza MD~ Signed [facility] Work Phone: evaluation note* Diagnosis Onset Date Resolution Status Diabetes chronic High cholesterol chronic Hypertension chronic Hypothyroidism chronic Morbid obesity with BMI of 45.0-49.9, adult chronic Diabetes chronic Distal paresthesia chronic High cholesterol chronic Hypertension chronic Hypothyroidism chronic Vitamin D deficiency [facility] Work Phone: evaluation note* Diagnosis Onset Date Resolution Status Diabetes chronic High cholesterol chronic Hypertension chronic Hypothyroidism chronic Morbid obesity with BMI of 45.0-49.9, adult chronic Diabetes chronic Distal paresthesia chronic High cholesterol chronic Hypertension chronic Hypothyroidism chronic Vitamin D deficiency chronic Diabetes chronic Hypertension chronic Hypothyroidism chronic Morbid obesity with BMI of 45.0-49.9, adult [facility] Work Phone: evaluation note* Diagnosis Onset Date Resolution Status Diabetes chronic Distal paresthesia chronic High cholesterol chronic Hypertension chronic Hypothyroidism chronic Vitamin D deficiency chronic Diabetes chronic Hypertension chronic Hypothyroidism chronic Morbid obesity with BMI of 45.0-49.9, [facility] Work Phone: evaluation note* Diagnosis Onset Date Resolution Status Diabetes chronic Hypertension chronic Hypothyroidism chronic Morbid obesity with BMI of 45.0-49.9, adult [facility] Work Phone: evaluation note* Diagnosis Onset Date Resolution Status Diabetes chronic Hypertension chronic Obesity (BMI 30-39.9) chroni c Abdominal pain acute Abdominal pain, RLQ acute Fever acute History of diabetes mellitus acute Nausea acute SIRS (systemic inflammatory response syndrome) acute Vomiting acute History of chronic kidney disease chronic [facility] Work Phone: Evaluation note* Diagnosis Onset Date Resolution Status Diabetes chronic Hypertension chronic Obesity (BMI 30-39.9) chroni c Abdominal pain acute Abdominal pain, RLQ acute History of diabetes mellitus acute History of chronic kidney disease chronic Fever resolved Nausea resolved Vomiting resolved [facility] Work Phone: evaluation note* Diagnosis Onset Date Resolution Status Acute pharyngitis, unspecified acute Shingles acute Diabetes chronic Obesity (BMI 30-39.9) chroni c [facility] Work Phone: Evaluation note* Diagnosis Onset Date Resolution Status CKD (chronic kidney disease) stage 3, GFR 30-59 ml/min chronic Diabetes chronic Obesity [facility] Work Phone: Evaluation note* Diagnosis Onset Date Resolution Status Diabetes chronic Obesity [facility] Work Phone: Evaluation note* Diagnosis Onset Date Resolution Status Diabetes chronic Obesity chronic Epigastric pain acute Anemia noneactive Fatigue acute Depression chronic Diabetes chronic Hypertension chronic Hypothyroidism chronic Obesity chronic Vitamin D deficiency [facility] Work Phone: Evaluation note* Diagnosis Onset Date Resolution Status Epigastric pain acute Anemia noneactive Fatigue acute Depression chronic Diabetes chronic Hypertension chronic Hypothyroidism chronic Obesity chronic Vitamin D deficiency [facility] Work Phone: Evaluation note* Diagnosis Onset Date Resolution Status Fatigue acute Depression chronic Diabetes chronic Hypertension chronic Hypothyroidism chronic Obesity chronic Vitamin D deficiency [facility] Work Phone: Hospital Discharge instructions Additional Instructions Your CAT scan normal appendix today. No other acute findings. With your fever all your labs are normal including COVID and influenza. Continue clear liquid diet next 12 to 24 hours. Tylenol as needed. 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 MAILED 1 M FU Reason for Visit Diabetes High cholesterol Hypertension Hypothyroidism Morbid obesity with BMI of 45.0-49.9, adult Diabetes Distal paresthesia High cholesterol Hypertension Hypothyroidism Vitamin D deficiency Chief Complaint PARKING ATTENDANT-DM-NPP MAILED 1 M FU KIDNEY STONES Reason for Visit Diabetes High cholesterol Hypertension Hypothyroidism Morbid obesity with BMI of 45.0-49.9, adult Diabetes Distal paresthesia High cholesterol Hypertension Hypothyroidism Vitamin D deficiency Chief Complaint PARKING ATTENDANT-DM-NPP MAILED 1 M FU KIDNEY STONES 2 [...] 1:39am Obesity May 02, 2024 1 1:39am Chief Complaint Admit Date CHEST PAIN October 05, 2024 9:10 pm Reason for Visit Admit Date Acute coronary syndrome October 05, 2024 9:10pm Chest pain October 05, 2024 9:10 pm Diabetes October 05, 2024 9:10 pm Hypertension October 05, 2024 9:10 pm Chief Complaint Admit Date CHEST PAIN October 05, 2024 9:10 pm CHEST PAIN October 06, 2024 7:07 am CHEST PAIN October 07, 2024 10:0 4am CHEST PAIN October 07, 2024 2:20 pm Reason for Visit Admit Date Diabetes October 05, 2024 9:10 pm Hypertension October 05, 2024 9:10 pm Chest pain October 05, 2024 9:10 pm Acute coronary syndrome October 05, 2024 9:10pm Chief Complaint Admit Date CHEST PAIN October 05, 2024 9:10 pm CHEST PAIN October 06, 2024 7:07 am CHEST PAIN October 07, 2024 10:0 4am CHEST PAIN October 07, 2024 2:20 pm ANEMIA/BLOOD IN STOOL October 21, 2024 8: 18am Family History No Family History Records Found Relationship Condition Age at Onset Recorded Date/T toro Not Specified Severe allergy Unknown Disorder of intestine Unknown Diabetes mellitus Unknown Alcohol abuse Unknown Anxiety Unknown Arthritis Unknown Depression Unknown Hemorrhagic disorder Unknown Hypertension Unknown Asthma Unknown Relationship Condition Age at Onset Recorded Date/T toro Not Specified Severe allergy Unknown Disorder of intestine Unknown Alcohol abuse Unknown Anxiety Unknown Arthritis Unknown Depression Unknown Asthma Unknown daughter Hemorrhagic disorder Unknown brother Diabetes mellitus Unknown Hypertension Unknown Coronary artery disease Unknown sister Diabetes mellitus Unknown Advance Directives No Advanced Directives Records Found Advance Directive Response Recorded Date/ Time Advance Directives No September 11 11:46am Living Will No February 03 7:01pm Power of Cook Syrup Maker Yes February 03, 2021 7:01pm Advance Directive Response Recorded Date/ Time Advance Directives No September 11 10:46am Living Will No February 03 022 7:20pm Power of Cook Syrup Maker No February 03, 2022 7:20pm Advance Directive Response Recorded Date/ Time Name of Medical Power of Cook Syrup Maker tammy nguyen February 03, 2022 11:15pm Advance Directives No September 11 10:46am Living Will No February 03 022 11:15pm Power of Cook Syrup Maker Yes February 03, 2022 11:15pm Advance Directive Response Recorded Date/ Time Advance Directives No September 11 11:46am Living Will No February 04 022 12:15am Power of Cook Syrup Maker Yes February 04, 2022 12:15am Advance Directive Response Recorded Date/ Time Advance Directives No September 11 10:46am Living Will No February 03 11:15pm Power of Cook Syrup Maker Yes February 03, 2022 11:15pm Advance Directive Response Recorded Date/ Time Name of Medical Power of Cook Syrup Maker [place] March 07, 2023 1:20pm Advance Directives No September 11 10:46am Living Will Yes March 07, 2 023 1:20pm Power of Cook Syrup Maker Yes March 07, 2023 1:20pm Advance Directive Response Recorded Date/ Time Name of Medical Power of Cook Syrup Maker [place] March 07, 2023 2:20pm Advance Directives No September 11 11:46am Living Will Yes March 07, 2 023 2:20pm Power of Cook Syrup Maker Yes March 07, 2023 2:20pm Advance Directive Response Recorded Date/ Time Advance Directives No September 11 11:46am Advance Directive Response Recorded Date/ Time Do you have a Healthcare Power of Cook Syrup Maker? Yes October 05, 2024 7:29pm Advance Directives No September 11 11:46am Advance Directive Response Recorded Date/ Time Do you have a Healthcare Pow er of Cook Syrup Maker? Yes October 05, 2024 9:47pm Name of Medical Power of Cook Syrup Maker Babita Mckinley patrick Contreras October 05, 2024 9:47pm Advance Directives No September 11 11:46am Summary Purpose Additional Source Comments Source Comments (unrecognize d section and content) In the event this informatio n is protected by the [facility] [place] Confidentiality of Alcohol and Drug Abuse Patient Records regulations: The Federal rules restrict any use of the information to criminally investigate or prosecute any alcohol or drug abuse patient.[facility] Goals (unrecognized section and content) Goals may [...] Primary Care Provider, Referring Provider Active Evin SIMMONS PA Attending Provider Active Team Status: [...] May 02, 2024 End: May 02, 2024 ADELITA Ryan Attending Provider Active Start: May 02, 2024 End: May 02, 2024 Team Status: Inactive Member Role Status Dates Dr. Phu Espinoza MD Primary Care Provider Active Start: May 02, 2024 End: May 02, 2024 ADELITA Ryan Attending Provider Active Start: May 02, 2024 End: May 02, 2024 ADELITA Ryan Referring Provider Active Start: May 02, 2024 [...] July 03, 2024 End: July 03, 2024 Team Status: Active Member Role/Relationship Status Dates Dr. Phu Espinoza MD Primary Care Provider Active Team Status: Inactive Member Role/Relationship Status Dates Dr. Phu Espinoza MD Primary Care Provider Active Start: July 03, 2024 End: July 03, 2024 Dr. Phu Espinoza MD Attending Provider Active Start: July 03, 2024 End: July 03, 2024 Dr. Phu Espinoza MD Referring Provider Active Start: July 03, 2024 End: July 03, 2024 Team Status: Active Member Role/Relationship Status Dates Dr. Phu Espinoza MD Primary Care Provider Active Start: October 05, 2024 Dr. Anton Thacker DO Emergency Provider Active S tart: October 05, 2024 Dr. Junior Dunn DO Admit Provider Active Start: October 05, 2024 Dr. Junior Dunn DO Attending Provider Active Start: October 05, 2024 Team Status: Inactive Member Role/Relationship Status Dates Dr. Phu Espinoza MD Primary Care Provider Active Start: October 05, 2024 End: October 07, 2024 Dr. Anton Thacker DO Emergency Provider Active S tart: October 05, 2024 End: October 07, 2024 Dr. Junior Dunn DO Admit Provider Active Start: October 05, 2024 End: October 07, 2024 Dr. Junior Dunn DO Other Provider Active Start: October 05, 2024 End: October 07, 2024 Dr. Octavio Archuleta MD Attending Provider Active Start: October 05, 2024 End: October 07, 2024 Dr. Megan Gomez MD Other Provider Active St art: October 05, 2024 End: October 07, 2024 Team Status: Active Member Role/Relationship Status Dates Dr. Puh Espinoza MD Primary Care Provider Active Start: October 06, 2024 Dr. Anton Thacker DO Emergency Provider Active S tart: October 06, 2024 Dr. Junior Dunn DO Admit Provider Active Start: October 06, 2024 Dr. Junior Dunn DO Other Provider Active Start: October 06, 2024 Dr. Megan Gomez MD Attending Provider Active Start: October 06, 2024 Dr. Megan Gomez MD Other Provider Active St art: October 06, 2024 Team Status: Active Member Role/Relationship Status Dates Dr. Phu Espinoza MD Primary Care Provider Active Start: October 07, 2024 Dr. Anton Thacker DO Emergency Provider Active S tart: October 07, 2024 Dr. Junior Dunn DO Admit Provider Active Start: October 07, 2024 Dr. Junior Dunn DO Other Provider Active Start: October 07, 2024 Dr. Octavio Archuleta MD Attending Provider Active Start: October 07, 2024 Dr. Octavio Archuleta MD Other Provider Active Star t: October 07, 2024 Dr. Megan Gomez MD Other Provider Active St art: October 07, 2024 Team Status: Active Member Role/Relationship Status Dates Dr. Phu Espinoza MD Primary Care Provider Active Start: October 07, 2024 Dr. Ronda Schaefer MD Attending Provider Active Start: October 07, 2024 Team Status: Active Member Role/Relationship Status Dates Dr. Phu Espinoza MD Primary Care Provider Active Start: October 07, 2024 Dr. Anton Thacker DO Emergency Provider Active S tart: October 07, 2024 Dr. Junior Dunn DO Admit Provider Active Start: October 07, 2024 Dr. Junior Dunn DO Other Provider Active Start: October 07, 2024 Dr. Octavio Archuleta MD Other Provider Active Star t: October 07, 2024 Dr. Megan Gomez MD Other Provider Active St art: October 07, 2024 Dr. Josh Gibbs MD Attending Provider Active S tart: October 07, 2024 Team Status: Inactive Member Role/Relationship Status Dates Dr. Phu Espinoza MD Primary Care Provider Active Start: October 10, 2024 End: October 10, 2024 Dr. Phu Espinoza MD Attending Provider Active Start: October 10, 2024 End: October 10, 2024 Team Status: Active Member Role/Relationship Status Dates Dr. Phu Espinoza MD Primary Care Provider Active Start: October 11, 2024 Dr. Phu Espinoza MD Attending Provider Active Start: October 11, 2024 Dr. Phu Espinoza MD Referring Provider Active Start: October 11, 2024 Team Status: Inactive Member Role/Relationship Status Dates Dr. Phu Espinoza MD Primary Care Provider Active Start: October 11, 2024 End: October 11, 2024 Dr. Phu Espinoza MD Attending Provider Active Start: October 11, 2024 End: October 11, 2024 Dr. Phu Espinoza MD Referring Provider Active Start: October 11, 2024 End: October 11, 2024 Team Status: Active Member Role/Relationship Status Dates Dr. Phu sEpinoza MD Primary Care Provider Active Start: October 16, 2024 Dr. Phu Espinoza MD Attending Provider Active Start: October 16, 2024 Team Status: Inactive Member Role/Relationship Status Dates Dr. Phu Espinoza MD Primary Care Provider Active Start: October 21, 2024 End: October 21, 2024 Dr. Phu Espinoza MD Referring Provider Active Start: October 21, 2024 End: October 21, 2024 Dr. Jodi Agee MD Attending Provider Active Start: October 21, 2024 End: October 21, 2024 Team Status: Inactive Member Role/Relationship Status Dates Dr. Phu Espinoza MD Primary Care Provider Active Start: October 16, 2024 End: October 16, 2024 Dr. Phu Espinoza MD Attending Provider Active Start: October 16, 2024 End: October 16, 2024 INFORMATION SOURCE (unrecogn ized section and content) DATE CREATED AUTHOR 10/26/2024 [facility] FOR RECORDS PERTAINING TO PATIENTS WHO [...] BE BASED ON THE PRIMARY CLINICAL RECORDS. [employer] [facility]. provides no warranty or guarantee of the accuracy or completeness of information in this document.
--- NOTE | 2024-10-30 09:35 | NEURO ---
NCS and/or EMG Patient Report Ordering Doctor: Phu Espinoza Chi DATE OF SERVICE: 10/30/24 Mary presents with complaints of weakness in both arms and numbness in the hands, worse on the right side. She has a history of carpal tunnel release bilaterally. Diagnostic findings: Right median motor nerve demonstrates normal distal latency with reduced amplitude and reduced conduction velocity. Left median motor response is within normal limits. Normal ulnar motor response bilaterally. Normal median and ulnar F?waves. Mildly decreased right median sensory latency at the wrist. Needle EMG testing was performed upper limbs. All muscles tested showed no evidence of denervation with normal motor unit action potentials. Electrodiagnostic impression: This is an abnormal study. 1. Electrodiagnostic findings suggestive of right-sided median mononeuropathy. This is consistent with a moderate recurrent right carpal tunnel syndrome. There is no electrodiagnostic evidence for a left carpal tunnel syndrome. 2. No electrodiagnostic evidence is noted for cervical radiculopathy or brachial plexopathy. Multi Select Codes Neurology Neurology Interp Codes: 38837-10 Musc test done w/n test comp (interp) (2) and 32091-06 Nrv cndj test 11-12 studies (interp)
== END | disposition home or self-care (01) ==
LOC: PSN 06:52
PROVIDERS: PCP Family Medicine Geriatric Medicine; Referring Provider Family Medicine Geriatric Medicine; Visit Provider Family Medicine Geriatric Medicine
DX: R29.898 Other symptoms and signs involving the musculoskeletal system (principal)
CPT/HCPCS: 95886; 95912

== ENCOUNTER → 2024-11-18 | Outpatient (CLI) | payer OTHER, SELFPAY ==
--- NOTE | 2024-11-18 16:03 | MRI_ITS ---
PROCEDURE: SPINE CERVICAL (ROUTINE) 11/18/2024 REASON FOR EXAM: WEAKNESS OF BOTH ARMS TECHNIQUE: SPINE CERVICAL (ROUTINE) Multiplanar and multisequence images were obtained without IV contrast administration. FINDINGS: Normal cervical alignment and vertebral body height. No cord compression or abnormal cord signal. There is no Chiari deformity. C2-3, C3-4 and C4-5 are unremarkable. At C5-6 and C6-7 there is broad-based annular bulging with mild canal narrowing and right-sided foraminal narrowing of moderate degree. C7-T1 is unremarkable. MRI/Spine Cervical (Routine) IMPRESSION: Mild canal narrowing at C5-6 and C6-7 with right-sided foraminal narrowing at b oth levels. No cord compression or abnormal cord signal Reading [facility]
--- NOTE | 2024-11-18 16:03 | MRI_ITS ---
PROCEDURE: MRI BRAIN WITHOUT CONTRAST 11/18/2024 REASON FOR EXAM: WEAKNESS OF BOTH ARMS TECHNIQUE: Multiplanar and multisequential MRI of the brain was performed without contrast. COMPARISON: CT head 11/18/2018. FINDINGS: No regions of abnormal restricted diffusion to indicate recent infarct. Ventricular and sulcal size and configuration are within normal limits. No evidence of intracranial hemorrhage, extra-axial collection or mass-effect. Major vascular flow voids are preserved. Few scattered small foci of T2 FLAIR hyperintensity in the supratentorial white matter, and within the central isra, nonspecific but most likely mild chronic microangiopathic changes. Unremarkable orbits. Well-aerated paranasal sinuses and mastoid air cells. MRI/Brain without Contrast IMPRESSION: No acute intracranial abnormality. Few scattered nonspecific foci of T2 FLAIR h yperintensity in the cerebral white matter and within the isra, most likely related to mild leukoaraiosis. Reading Location: [id number]
== END | disposition home or self-care (01) ==
LOC: MRI 15:58
PROVIDERS: PCP Family Medicine Geriatric Medicine; Referring Provider Family Medicine Geriatric Medicine; Visit Provider Family Medicine Geriatric Medicine
DX: R29.898 Other symptoms and signs involving the musculoskeletal system (principal)
CPT/HCPCS: 70551; 72141

== ENCOUNTER → 2024-11-28 | Outpatient (CLI) | payer OTHER, SELFPAY | END | disposition home or self-care (01) | LOC: PSN 09:26 | PROVIDERS: PCP Family Medicine Geriatric Medicine; Referring Provider Internal Medicine Cardiovascular Disease; Visit Provider Internal Medicine Cardiovascular Disease | DX: R00.1 Bradycardia, unspecified (principal) | CPT/HCPCS: 93225; 93226 ==

== ENCOUNTER → 2024-12-10 | Outpatient (CLI) | payer OTHER, SELFPAY ==
--- NOTE | 2024-12-11 17:51 | STRESSREP ---
Stress Test Report Exercise stress test. 54-year-old female with a history of arrhythmia. Stress protocol: Resting EKG demonstrates normal sinus rhythm with a rate of 86 bpm resting blood pressure is 160/90 mmHg. The patient exercised according to the regular Shad protocol for a total duration of 3 minutes attaining a maximum heart rate of 141 bpm which was 84% of maximum predicted heart rate; the maximum workload was 4.6 metabolic equivalents. At rest there were no ST or T wave changes noted to suggest ischemia and at peak exercise upsloping ST changes only were noted which did not meet the criteria for ischemia. No clinical angina was noted the test was terminated due to the target heart rate being achieved/fatigue. The peak blood pressure was 182/83 mmHg. Rate-pressure product was 23,000. Conclusion: Exercise stress test with no EKG criteria for ischemia at a low to moderate workload.
== END | disposition home or self-care (01) ==
LOC: CVS 12:16
PROVIDERS: PCP Family Medicine Geriatric Medicine; Referring Provider Internal Medicine Cardiovascular Disease; Visit Provider Internal Medicine Cardiovascular Disease
DX: R00.1 Bradycardia, unspecified (principal)
CPT/HCPCS: 93017

== ENCOUNTER → 2024-12-12 | Outpatient (CLI) | payer OTHER, SELFPAY ==
[2024-12-12 12:21] LABS: Hematocrit 34.5 % (37-47); Hemoglobin 10.3 g/dL (12.0-15.0); Immature Granulocytes Count 0.030 X10^3/uL (0.0-0.0); Mean Corp Hgb Conc 29.9 g/dL (32-36); Mean Corpuscular Volume 77.5 fL (81-99); Mean Platelet Vol. 9.1 fl (6.2-12.0); NRBC Flagged by Analyzer 0 % (0-5); Platelet Count 290 K/mm3 (150-450); RBC Distribution Width CV 14.8 % (11.6-14.6); RBC Distribution Width SD 41.4 fl (35.1-43.9); Red Blood Count 4.45 M/mm3 (4.2-5.4); White Blood Count 6.1 K/mm3 (4.4-11.0)
[2024-12-12 13:15] LABS: Vitamin B12 390 pg/mL (180-914)
[2024-12-12 14:06] LABS: Platelet Count 304 K/mm3 (150-450); Reticulocyte Count 2.39 % (0.5-1.5)
[2024-12-12 14:07] LABS: Immature Reticulocyte Fraction 40.20 % (3.00-15.90)
== END | disposition home or self-care (01) ==
LOC: LAB 11:53
PROVIDERS: PCP Family Medicine Geriatric Medicine; Referring Provider Nurse Practitioner Family; Visit Provider Nurse Practitioner Family
DX: D64.9 Anemia, unspecified (principal); R53.83 Other fatigue
CPT/HCPCS: 36415; 82607; 85025; 85045

== ENCOUNTER → 2024-12-23 | Outpatient (CLI) | payer OTHER, SELFPAY ==
[2024-12-26 17:08] LABS: Lyme Scn Total Ab w/Rflx Negative (Negative)
== END | disposition home or self-care (01) ==
LOC: LAB 10:00
PROVIDERS: PCP Family Medicine Geriatric Medicine; Referring Provider Nurse Practitioner Family; Visit Provider Nurse Practitioner Family
DX: R53.83 Other fatigue (principal)
CPT/HCPCS: 86617; 86618

== ENCOUNTER → 2024-12-24 | Outpatient (CLI) | payer OTHER, SELFPAY ==
[2024-12-23 11:14] LABS: Hematocrit 34.1 % (37-47); Hemoglobin 10.8 g/dL (12.0-15.0); Immature Granulocytes Count 0.030 X10^3/uL (0.0-0.0); Mean Corp Hgb Conc 31.7 g/dL (32-36); Mean Corpuscular Volume 74.6 fL (81-99); Mean Platelet Vol. 9.5 fl (6.2-12.0); NRBC Flagged by Analyzer 0 % (0-5); Platelet Count 279 K/mm3 (150-450); RBC Distribution Width CV 15.2 % (11.6-14.6); RBC Distribution Width SD 40.5 fl (35.1-43.9); Red Blood Count 4.57 M/mm3 (4.2-5.4); White Blood Count 6.7 K/mm3 (4.4-11.0)
[2024-12-23 11:33] LABS: Internal QC Validated? YES +Cl - CLEAR BKGD; Pregnancy, Serum, hCG Quali. NEGATIVE Negative; Record Kit Lot#, Serum Preg. 980607
[2024-12-23 12:19] LABS: Anion Gap 14 (5-15); BUN 21 mg/dL (4-19); BUN/Creat Ratio 23.6 RATIO (10-20); Calcium,Total 9.7 mg/dL (7.6-11.0); Carbon Dioxide 24.6 mmol/L (21.0-32.0); Chloride 102 mmol/L (98-108); Glucose 115 mg/dL (70-99); Potassium 4.2 mmol/L (3.3-5.1)
--- NOTE | 2024-12-24 19:23 | PCM.TILTTABL ---
Staff Staff: Suzette Martinez and Johnna Fields Summary Pre Test Resting HR: 80 Pre Test Resting BP: 142/83 Minimum Test HR: 80 Maximum Test HR: 102 Minimum Test BP: 125/95 Maximum Test BP: 151/91 Reason for Test Termination: Reached Maximum Test Time Physician Tilt Table Report Patient's Physicians Primary Care Physician: Phu Espinoza Chi Indications/Diagnosis: Presyncope Procedure Comments: 54-year-old lady brought in for evaluation of presyncope. Resting EKG demonstrates sinus rhythm with a rate of 80 bpm. Patient was then put in the 70 degree head upright tilt position and continuous EKG monitoring was performed as well as blood pressure measurements were obtained over total duration of 30 minutes. Patient maintained stable blood pressure and heart rate with fatigue symptomatology. No significant changes in the blood pressure and heart rate were noted as above. EKG maintained sinus rhythm. Summary: Negative head upright tilt table test.
[2024-12-24 19:26] VITALS: BP 125/95; BP 142/83; BP 151/91
== END | disposition home or self-care (01) ==
LOC: CVS 09:00
PROVIDERS: PCP Family Medicine Geriatric Medicine; Referring Provider Internal Medicine Cardiovascular Disease; Visit Provider Internal Medicine Cardiovascular Disease
DX: R55 Syncope and collapse (principal); R00.1 Bradycardia, unspecified
CPT/HCPCS: 36415; 80048; 84703; 85025; 93660; A4216

== ENCOUNTER → 2025-01-02 | Outpatient (CLI) | payer OTHER, SELFPAY ==
[2025-01-02 12:20] LABS: Hematocrit 36.0 % (37-47); Hemoglobin 10.9 g/dL (12.0-15.0); Immature Granulocytes Count 0.020 X10^3/uL (0.0-0.0); Mean Corp Hgb Conc 30.3 g/dL (32-36); Mean Corpuscular Volume 76.3 fL (81-99); Mean Platelet Vol. 9.5 fl (6.2-12.0); NRBC Flagged by Analyzer 0 % (0-5); Platelet Count 308 K/mm3 (150-450); RBC Distribution Width CV 15.4 % (11.6-14.6); RBC Distribution Width SD 41.7 fl (35.1-43.9); Red Blood Count 4.72 M/mm3 (4.2-5.4); White Blood Count 5.8 K/mm3 (4.4-11.0)
[2025-01-02 13:03] LABS: AST(SGOT) 60 U/L (<=31); Alanine Aminotransfer ALT/SGPT 75 U/L (<=34); Albumin, Serum 4.3 g/dL (3.5-5.0); Alkaline Phosphatase 54 U/L (35-104); Anion Gap 11 (5-15); BUN 17 mg/dL (4-19); BUN/Creat Ratio 16.2 RATIO (10-20); Calcium,Total 9.5 mg/dL (7.6-11.0); Carbon Dioxide 27.4 mmol/L (21.0-32.0); Chloride 103 mmol/L (98-108); Globulin 3.2 g/dL (2.2-4.2); Glucose 116 mg/dL (70-99); Potassium 4.5 mmol/L (3.3-5.1)
[2025-01-02 19:14] LABS: Xtra Tube Kwok EXTRA TUBE
== END | disposition home or self-care (01) ==
LOC: POLAB3 11:13
PROVIDERS: PCP Family Medicine Geriatric Medicine; Visit Provider Family Medicine Geriatric Medicine
DX: E11.65 Type 2 diabetes mellitus with hyperglycemia (principal); I10 Essential (primary) hypertension
CPT/HCPCS: 36415; 80053; 84443; 85025

== ENCOUNTER 2025-03-05 06:38 | Day surgery (SDC) | payer OTHER, SELFPAY ==
--- NOTE | 2025-03-03 15:26 | PAT.ANE_ITS ---
Pre-Assessment Diagnosis/Proposed Procedure Planned Operative Procedure(s): EGD, CSCOPE Anesthesia History Anesthesia History - laboratory sample carrier: Anesthesia History - laboratory sample carrier Hx Hospitalization Yes: [facility] - 09/202403/03/25 14:57 Any Problems With Anesthesia No 03/03/25 14:57 Cholinesterase deficiency No 03/03/25 14:57 You/Your Family Experience No: ADOPTED 03/03/25 14:57 fever (hyperthermia) with Relationship Recent Exposure to Contagious No 03/13/23 07:08 Disease Does patient have nerve No 03/03/25 14:57 stimulator Patient instructed to have device shut off --Does patient have Pacemaker or ICD? When Was Last Pacemaker Check QUESTION #4 FULL TEXT: You/Your Family Experience fever (hyperthermia) with Anesthesia Last Oral Intake Last Oral intake: Last Oral Intake NPO since Meds taken in AM with sips of water? Meds patient instructed to take am of surgery PONV PONV - laboratory sample carrier: PONV - laboratory sample carrier Female Yes 03/03/25 14:57 HX of Motion Sickness Yes 03/03/25 14:57 HX of N/V After Surgery No 03/03/25 14:57 Non-Smoker Yes 03/03/25 14:57 Duration of Surgery greater No 03/03/25 14:57 than 60 minutes Number of Risk Factors 3 03/03/25 14:57 PONV Score Moderate Risk 03/03/25 14:57 Height & Weight Height & Weight: Anesthesia: Height & Weight Height 5 ft 7 in 12/12/24 10:37 Respiratory Assessment Respiratory Assessment - laboratory sample carrier: Respiratory Tract Infection Hx - laboratory sample carrier Hx Respiratory Tract Infection No 03/03/25 14:57 STOP Sleep Apnea STOP Sleep Apnea - laboratory sample carrier: STOP Sleep Apnea - laboratory sample carrier Hx Hypertension Yes: CONTROLLED - RECENTLY 03/03/25 14:57 TAKEN OFF MEDS DUE TO HYPOTENSION Hx Sleep Apnea No: SLEEP STUDY SCHEDULED 03/03/25 14:57 CPAP BIPAP Do you snore loudly (louder No 03/03/25 14:57 than talking or can be heard Do you often feel tired/ No 03/03/25 14:57 fatigued/ sleepy during daytime? Has anyone observed you stop No 03/03/25 14:57 breathing during sleep? STOP Results Negative 03/03/25 14:57 QUESTION #5 FULL TEXT : Do you snore loudly (louder than talking or can be heard through closed doors)? 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 Specify any problems Hx of Preganancy in last 3 N/A 03/03/25 14:57 Months Nurse Filling Out Transfusion NBUCHER 03/03/25 14:57 & Questions: Date: 03/03/25 03/03/25 14:57 Time: 14:59 03/03/25 14:57 Patient unable to answer at this time (ie. confused, unrespo /Reproduction History /Reproductive History - laboratory sample carrier: /Reproductive Hx- laboratory sample carrier Hx Now No 03/03/25 14:57 Gestational Age (in weeks): EDC: Hx Hx Para Hx Section SAB No 03/03/25 14:57 Does the father of the baby or his family experience fever w Father of the baby Malignant Hypertension history comment [facility] Medical History (Updated 03/03/25 @ 15:07 by Eileen Jenkins) Post-menopausal Wears contact lenses History of renal disease Low iron Hepatitis DVT (deep venous thrombosis) Syncope History of umbilical hernia Non-smoker Cardiology follow-up encounter History of Holter monitoring History of stress test History of echocardiogram Elevated LFTs Near syncope Bradycardia Diabetes Acute coronary syndrome Incisional hernia Anxiety Fatty liver GERD (gastroesophageal reflux disease) Shortness of breath on exertion Fatigue CKD (chronic kidney disease) stage 3, GFR 30-59 ml/min MRSA (methicillin resistant Staphylococcus aureus) Insulin pump in place SIRS (systemic inflammatory response syndrome) Vitamin D deficiency Hypothyroidism Neuropathy Hives Hepatitis A Carpal tunnel syndrome Arthritis Depression High cholesterol Hypertension Migraines Asthma Morbid obesity with BMI of 45.0-49.9, adult Home Medications ?Medication ?Instructions ?Recorded ?Last Taken ?Type albuterol sulfate 90 mcg/actuation 1 puff inhalation Q 4H PRN PRN 12/01/13 01/28/22 History aerosol inhaler (Ventolin HFA) Shortness Of Breath zolpidem 10 mg tablet (Ambien) 5 mg PO QHS PRN sleep 0 12/01/13 10/04/24 History epinephrine 0.3 mg/0.3 mL 0.3 mg (0.3 mL) IJ X1 PRN Unknown Rx injection, auto-injector Anaphylaxis ##1 cetirizine 10 mg tablet 10 mg PO DAILY 02/03/2109/24 History paroxetine HCl 40 mg tablet 40 mg PO QDAY 11/01/2302/18 History finerenone 10 mg tablet (Kerendia) 10 mg PO DAILY 09/24 05/21 Unknown History pantoprazole 40 mg tablet,delayed 40 mg PO DAILY 10/0510/05/24 History release polysaccharide iron complex 150 mg 150 mg PO DAILY 03/2010/05/24 History iron capsule (Ferrex) levothyroxine 112 mcg tablet 112 mcg PO QDAY 10/21/24 Unknown History pioglitazone 30 mg tablet (Actos) 30 mg PO QDAY Unknown History metformin 1,000 mg tablet 1,000 mg PO BID #1 TAB 11/21 Unknown Rx insulin lispro 200 unit/mL (3 mL) 1 sliding scale dose subcut ONCE 03/03/25 Unknown History subcutaneous pen (Humalog KwikPen U-200 Insulin) sulfamethoxazole 800 1 tab PO DAILY 03/03/25 Unkn own History mg-trimethoprim 160 mg tablet Allergy/AdvReac Type Severity Reaction Status Date / Time doxepin Allergy Intermediate PT UNSURE Verified 03/03/25 14:52 OF REACTION nut - unspecified Allergy Anaphylaxis Verified 03/03/25 14:52 peanut Allergy Anaphylaxis Verified 03/03/25 14:52 shellfish derived Allergy Anaphylaxis Verified 03/03/25 14:52 codeine AdvReac Rash Verified 03/03/25 14:52 prednisone AdvReac Other Verified 03/03/25 14:52 sertraline HCl (From Zoloft) AdvReac Other Verified 03/03/25 14:52 Family History Daughter Bleeding disorder Brother Diabetes Hypertension CAD (coronary artery disease) Sister Diabetes Other Alcohol abuse Anxiety Arthritis Asthma Bowel disease Depression Severe allergy Surgical History (Updated 03/03/25 @ 15:07 by Eileen Jenkins) History of colonoscopy History of esophagogastroduodenoscopy (EGD) S/P section History of endometrial ablation History of removal of ovarian cyst Tonsillectomy planned delivery delivered History of cholecystectomy Social History household members: none Smoking Status: Never smoker substance use type: does not use what type of physical activity do you participate in: walking Audit: Pertinent Findings Pertinent Findings EKG Perinent findings: 11/08/2024. Normal sinus rhythm 84 bpm. Possible anterolateral infarct, age undetermined. Stress test pertinent findings: 12/11/2024. Negative for ischemia at low to moderate workload. Echo (EF%) pertinent findings: 10/05/2024. EF 65%. Stage I diastolic dysfunction Consult pertinent findings: Cardiology 11/08/2024. Bradycardia. Obtain exercise stress test. 24-hour Holter monitor. Near syncope. Obtain tilt test. Recommendation Anesthesia Recommendation Anesthesia recommendation: OPTIMIZED for anesthesia
--- NOTE | 2025-03-04 13:50 | H&P.OPEN ---
HPI - General General Date of Service: 03/05/25 HPI Narrative ARLEN NGUYEN, is a 54 F who presents for an EGD and colonoscopy due to a positive fecal occult blood test. Patient states her blood pressure and bradycardia has improved and she has had less dizziness recently. Patient did have full cardiac workup and her hemoglobin has remained stable last check was 10.9. Patient denies any heartburn or reflux. Office visit 10/21/2024 HPI HPI: 54-year-old female presents due to a fecal occult blood her EGD and colonoscopy. Patient just had EGD and colonoscopy in February 2023 patient was given 5 years for repeat colonoscopy due to adoption history. Patient states she has been feeling very fatigued and tired denies any obvious blood in her stool. Patient did have hemorrhoids on previous colonoscopy. Patient states she is also having episodes of low heart rate and dizziness even after exercise like climbing stairs. Patient does have upcoming appoint with cardiology patient did have an echo and stress test when she was admitted recently which were normal per her report. Patient's hemoglobin has stayed around 11 in the last few years. [facility] Medical History (Updated 03/03/25 @ 15:07 by Eileen Jenkins) Post-menopausal Wears contact lenses History of renal disease Low iron Hepatitis DVT (deep venous thrombosis) Syncope History of umbilical hernia Non-smoker Cardiology follow-up encounter History of Holter monitoring History of stress test History of echocardiogram Elevated LFTs Near syncope Bradycardia Diabetes Acute coronary syndrome Incisional hernia Anxiety Fatty liver GERD (gastroesophageal reflux disease) Shortness of breath on exertion Fatigue CKD (chronic kidney disease) stage 3, GFR 30-59 ml/min MRSA (methicillin resistant Staphylococcus aureus) Insulin pump in place SIRS (systemic inflammatory response syndrome) Vitamin D deficiency Hypothyroidism Neuropathy Hives Hepatitis A Carpal tunnel syndrome Arthritis Depression High cholesterol Hypertension Migraines Asthma Morbid obesity with BMI of 45.0-49.9, adult Home Medications ?Medication ?Instructions ?Recorded ?Last Taken ?Type albuterol sulfate 90 mcg/actuation 1 puff inhalation Q4H PRN PRN 12/01/13 03/04/25 History aerosol inhaler (Ventolin HFA) Shortness Of Breath zolpidem 10 mg tablet (Ambien) 5 mg PO QHS PRN sleep 12/01/13 10/04/24 History epinephrine 0.3 mg/0.3 mL 0.3 mg (0.3 mL) IJ X1 PRN 11/10/19 12/09/25 Rx injection, auto-injector Anaphylaxis ##1 cetirizine 10 mg tablet 10 mg PO DAILY 02/03/21 03/04/25 History paroxetine HCl 40 mg tablet 40 mg PO QDAY 11/01/23 03/04/25 History finerenone 10 mg tablet (Kerendia) 10 mg PO DAILY 10/05/24 03/04/25 History pantoprazole 40 mg tablet,delayed 40 mg PO DAILY 10/05/24 03/04/25 History release polysaccharide iron complex 150 mg 150 mg PO DAILY 10/05/24 03/03/25 History iron capsule (Ferrex) levothyroxine 112 mcg tablet 112 mcg PO QDAY 10/21/24 03/04/25 History metformin 1,000 mg tablet 1,000 mg PO BID #1 TAB 11/21/24 03/03/25 Rx insulin lispro 200 unit/mL (3 mL) 1 sliding scale dose subcut ONCE 03/03/25 03/04/25 History subcutaneous pen (Humalog KwikPen U-200 Insulin) sulfamethoxazole 800 1 tab PO DAILY 03/03/25 03/04/25 History mg-trimethoprim 160 mg tablet Allergy/AdvReac Type Severity Reaction Status Date / Time doxepin Allergy Intermediate PT UNSURE Verified 03/05/25 07:01 OF REACTION nut - unspecified Allergy Anaphylaxis Verified 03/05/25 07:01 peanut Allergy Anaphylaxis Verified 03/05/25 07:01 shellfish derived Allergy Anaphylaxis Verified 03/05/25 07:01 codeine AdvReac Rash Verified 03/05/25 07:01 prednisone AdvReac Other Verified 03/05/25 07:01 sertraline HCl (From Zoloft) AdvReac Other Verified 03/05/25 07:01 Family History Daughter Bleeding disorder Brother Diabetes Hypertension CAD (coronary artery disease) Sister Diabetes Other Alcohol abuse Anxiety Arthritis Asthma Bowel disease Depression Severe allergy Surgical History (Updated 03/03/25 @ 15:07 by Eileen Jenkins) History of colonoscopy History of esophagogastroduodenoscopy (EGD) S/P section History of endometrial ablation History of removal of ovarian cyst Tonsillectomy planned delivery delivered History of cholecystectomy Social History household members: none Smoking Status: Never smoker substance use type: does not use what type of physical activity do you participate in: walking Past Medical/Surgical History Planned Operation Planned Operative Procedure(s): EGD, CSCOPE Previous Hospitalizations/Surgeries HX Hospitalizations: Yes ([facility] - 09/2024) Any Problems With Anesthesia: No You/Your Family Experience Fever (Hyperthermia) With Anes: No (ADOPTED) Cholinesterase deficiency: No Cardiovascular Hx Chest Pain within Last 2 months: Yes Hx of Irregular Heartbeat and/or Afib: No Hx Heart Attack: No Hx Hypertension: Yes (CONTROLLED - RECENTLY TAKEN OFF MEDS DUE TO HYPOTENSION) Hx Cardiac Catheterization: No Hx Cardiac Surgery/Stents/Etc.: No Hx Pain in Legs when Walking/Leg Cramps: No Respiratory Hx Chronic Obstructive Pulmonary Disease (COPD): No Hx Asthma: Yes Hx Emphysema: No Hx Sleep Apnea: No (SLEEP STUDY SCHEDULED) Hx Respiratory Tract Infection/Cold (presently): No Do You Snore Loudly (louder than talking or can be heard): No Do You Often Feel Tired/ Fatigued/ Sleepy Dring Daytime?: No Has Anyone Observed You Stop Breathing During Sleep?: No Result (for STOP score): Negative Hx Smoking: No Smoking Status: Never smoker Gastrointestinal Hx Gastrointestinal Bleed: No Hx Ulcer: No Hx Unplanned Weight Loss of 20#: Yes (20lbs/4weels) Neurological Hx Seizures: No Hx Multiple Sclerosis: No Hx Parkinson's Disease: No Hx Back Injury/Pain: No Does patient have nerve stimulator: No Blood Disorder Hx High Cholesterol: No Hx Hepatitis: Yes (from food) Hx Cirrhosis: No Hx Anemia: No Hx Blood Disorders: No (dgtr with von willibranes) Reproduction : No Genitourinary Hx Renal Disease: No Hx Dialysis: No Musculoskeletal Hx Arthritis: Yes (knees/knuckles) Hx Rheumatoid Arthritis: Yes Endocrine Hx Diabetes: Yes (Type II) Thyroid Disease: No Psycho/Social Hx Substance Use: No Hx Alcohol Use: No Hx Anxiety: Yes Hx Depression: Yes () Hx Dementia: No Miscellaneous Hx Cancer: No Recent Exposure to Contagious Disease: No Allergies doxepin Allergy (Intermediate, Verified 03/05/25 07:01) PT UNSURE OF REACTION nut - unspecified Allergy (Verified 03/05/25 07:01) Anaphylaxis peanut Allergy (Verified 03/05/25 07:01) Anaphylaxis shellfish derived Allergy (Verified 03/05/25 07:01) Anaphylaxis codeine Adverse Reaction (Verified 03/05/25 07:01) Rash prednisone Adverse Reaction (Verified 03/05/25 07:01) Other sertraline HCl (From Zoloft) Adverse Reaction (Verified 03/05/25 07:01) Other Maternal: Family History Daughter Bleeding disorder Brother Diabetes Hypertension CAD (coronary artery disease) Sister Diabetes Other Alcohol abuse Anxiety Arthritis Asthma Bowel disease Depression Severe allergy Heart Disease Offspring: Family History Daughter Bleeding disorder Brother Diabetes Hypertension CAD (coronary artery disease) Sister Diabetes Other Alcohol abuse Anxiety Arthritis Asthma Bowel disease Depression Severe allergy Clotting Disorder and Heart Disease Discharge Is Pt Admitted From a Assisted, or a Senior Living: No After D/C, Where Do you Plan to Go: Return Home Assessment & Plan Assessment/Plan (1) Fecal occult blood test positive: Surgery Risks - Colonoscopy I discussed with the patient the risks of the procedure: Yes Risks Include but are not Limited To: Plan for EGD and colonoscopy risks include but are not limited to: Bleeding, perforation requiring further surgery, inability to complete colonoscopy requiring barium enema.
[2025-03-05] VITALS (8 sets, daily range): BP systolic 87–140; BP diastolic 53–80; PULSE 67–73; RESP 16–18; TEMP 36.3–37.1; O2SAT 94–96; BMI 43.4
--- OUTSIDE RECORDS SUMMARY | 2025-03-05 06:41 | XMS RPT_ITS | CCD ---
Author Organization [facility] Care Team Providers Care Saw Operator Name Role Phone Charles Rae Primary Care Provider Meri Harrison Primary Care Provider [phone] Alexis, [...] Provider Alexis, Dr. Phu Aldana Referring Provider 1([facility])[phone] ADELITA Gibbons Attending Provider Dr. Dante Pruitt Emergency Provider Dr. Mgean Gomez Admit Provider Dr. Megan Gomez Other Provider Dr. Jodi Agee Attending Provider Dr. Jodi Agee Other Provider Dr. Marcellus Ceballos Other Provider 1([facility])[phone] Marcellus Ceballos Attending Provider 1([facility])[phone] Alexis, Dr. Phu Aldana Primary Care Provider Alexis, Dr. Phu Aldana Referring Provider Jemma SIMMONS, IRIS Sofia Attending Provider IRIS Lemus Attending Provider [phone] Shai, CUT OFF TENDER GLASS-C Massiel Attending Provider Alexis, Dr. Phu Aldana Primary Care Provider Alexis, Dr. Phu Aldana Referring Provider Shai, CUT OFF TENDER GLASS-C Massiel Attending Provider Alexis, Dr. Phu Aldana Primary Care Provider Alexis, Dr. Phu Aldana Referring Provider Shai, CUT OFF TENDER GLASS-C Massiel Attending Provider Alexis, Dr. Phu Aldana Primary Care Provider Alexis, Dr. Phu Aldana Referring Provider Shai, CUT OFF TENDER GLASS-C Massiel Attending Provider Dr. Jodi Agee Attending Provider Dr. Jodi Agee Other Provider Alexis, Dr. Phu Aldana Primary Care Provider Alexis, Dr. Phu Aldana Referring Provider Shai, CUT OFF TENDER GLASS-C Massiel Attending Provider Alexis, Dr. Phu Aldana Primary Care Provider Alexis, Dr. Phu Aldana Referring Provider Shai, CUT OFF TENDER GLASS-C Massiel Attending Provider Dr. Jodi Agee Attending Provider Dr. Jodi Agee Other Provider Alexis DICKENS, Dr. Phu Aldana Primary Care Provider Alexis DICKENS, Dr. Phu Aldana Referring Provider Cyndie DICKENS, Dr. Zapata Attending Provider Cyndie DICKENS, Dr. Zapata Referring Provider Shai CUT OFF TENDER GLASS-C, Massiel Attending Provider Shai CUT OFF TENDER GLASS-C, Massiel Referring Provider Alexis DICKENS, Dr. Phu Aldana Attending Provider Alexis DICKENS, Dr. Phu Aldana Primary Care Provider [phone] Alexis DICKENS, Dr. Phu Aldana Referring Provider Kirstie CRUZ, Dr. Walton Emergency Provider [phone] [facility] , Dr. Pacheco Admit Provider [facility] DO, Dr. Pacheco Attending Provider [facility] Dr[facility] Other Provider Geremias DICKENS, Dr. Cunningham Attending Provider Unavaila neeta Gomez MD, Dr. Megan Coker Other Provider Jason DICKENS, Dr. Megan Coker Attending Provider Geremias DICKENS, Dr. Cunningham Other Provider Unavailable Silvano DICKENS, Dr. Bond Attending Provider Bernie DICKENS, Dr. Moreno Attending Provider Cyndie DICKENS, Dr. Zapata Attending Provider [phone] Alexis DICKENS, Dr. Phu Aldana Primary Care Provider [phone] Alexis DICKENS, Dr. Phu Adlana Attending Provider Alexis DICKENS, Dr. Phu Aldana Referring Provider Alexis DICKENS, Dr. Phu Aldana Other Provider Dariel DICKENS, Dr. Tenorio Attending Provider [phone] Alexis DICKENS, Dr. Phu Aldana Primary Care Physician [phone] Kirstie CRUZ, Dr. Walton Emergency Department Physici an Shaun CRUZ, Dr. Pacheco Admitting Physician Shaun CRUZ, Dr. Pacheco Nurse Practitioner Geremias DICKENS, Dr. Cunningham Attending Physician Unavail able Jason DICKENS, Dr. Megan Coker Nurse Practitioner Jason DICKENS, Dr. Megan Coker Attending Physician [phone] Geremias DICKENS, Dr. Cunningham Nurse Practitioner Erik Schaefer MD, Dr. Bond Attending Physician [phone] Bernie DICKENS, Dr. Moreno Attending Physician Alexis DICKENS, Dr. Phu Aldana Attending Physician Cyndie DICKENS, Dr. Zapata Attending Physician Alexis DICKENS, Dr. Phu Aldana Nurse Practitioner Dariel DICKENS, Dr. Tenorio Attending Physician Bernie DICKENS, Dr. Moreno Referring Provider Bernie DICKENS, Dr. Moreno Nurse Practitioner Shai CUT OFF TENDER GLASS-C, Massiel Attending Physician Shai CUT OFF TENDER GLASS-C, Massiel Referring Provider Alexis DICKENS, Dr. Phu Aldana Primary Care Physician Dr. Anton Thacker DO Emergency Department Physici an [facility], Dr. Pacheco Admitting Physician [facility], Dr. Pacheco Nurse Practitioner Geremias DICKENS, Dr. Cunningham Attending Physician Unavail able Jason DICKENS, Dr. Megan Coker Nurse Practitioner Jason DICKENS, Dr. Megan Coker Attending Physician Geremias DICKENS, Dr. Cunningham Nurse Practitioner Erik Schaefer MD, Dr. Bond Attending Physician Bernie DICKENS, Dr. Moreno Attending Physician Alexis DICKENS, Dr. Phu Aldana Attending Physician Alexis DICKENS, Dr. Phu Aldana Referring Provider Cyndie DICKENS, Dr. Zapata Attending Physician Alexis DICKENS, Dr. Phu Aldana Nurse Practitioner Dariel DICKENS, Dr. Tenorio Attending Physician Bernie DICKENS, Dr. Moreno Referring Provider Dr. Josh Gibbs MD Nurse Practitioner Shai CUT OFF TENDER GLASS-C, Massiel Attending Physician [phone] Shai CUT OFF TENDER GLASS-CMassiel Referring Provider [phone] Alexis, Phu Chi Primary Care Unavailable Alexis, Phu Chi Referring Unavailable Alexis, Phu Chi Attending Unavailable Alexis, Phu Chi Primary Care Unavailable Alexis, Phu Chi Referring Unavailable Alexis, Phu Chi Attending Unavailable Shai, Massiel Attending Unavailable Alexis, Phu Chi Primary Care Unavailable Alexis, Phu Chi Referring Unavailable Bernie, [place] Referring Unavailable Bernie, [place] Attending Unavailable Alexis, Phu Chi Primary Care Unavailable Robotham, Jodi Attending Unavailable Alexis, Phu Chi Primary Care Unavailable Aleixs, Phu Chi Primary Care Unavailable Alexis, Phu Chi Attending Unavailable Shaun Junior Consulting Unavailable Shaun, Junior Admitting Unavailable Megan Gomez Attending Unavailable Alexis, Phu Chi Primary Care Unavailable Jason Megan L Consulting Unavailable Silvano, Ronda Attending Unavailable Alexis, Phu Chi Primary Care Unavailable Alexis, Phu Chi Consulting Unavailable Alexis, Phu Chi Primary Care Unavailable ChrisdJona Attending Unavailable Alexis, Phu Chi Referring Unavailable Bernie, Josh Attending Unavailable KittoeOctavio Consulting Unavailable Robotham, Jodi Referring Unavailable Robotham, Jodi Attending Unavailable Alexis, Phu Chi Primary Care Unavailable Shaun Junior Attending Unavailable Bernie, Josh Consulting Unavailable Bernie, Josh Referring Unavailable Bernie, Josh Attending Unavailable Alexis, Phu Chi Primary Care Unavailable eller, Junior Consulting Unavailable Shaun, Junior Admitting Unavailable KittoeOctavio Attending Unavailable Alexis, Phu Chi Primary Care Unavailable WhiteMegan L Consulting Unavailable Alexis, Phu Chi Referring Unavailable Alexis, Phu Chi Primary Care Unavailable Alexis, Phu Chi Attending Unavailable Alexis, Phu Chi Referring Unavailable Alexis, Phu Chi Primary Care Unavailable Alexis, Phu Chi Attending Unavailable Bernie, [place] Consulting Unavailable Bernie, Josh Referring Unavailable Bernie, Josh Attending Unavailable Alexis, Phu Chi Primary Care Unavailable Bernie, [place] Referring Unavailable Bernie, Josh Attending Unavailable Alexis, Phu Chi Primary Care Unavailable Bernie, [place] Referring Unavailable Bernie, Josh Attending Unavailable Alexis, Phu Chi Primary Care Unavailable Massiel Gibbons Attending Unavailable Alexis, Phu Chi Primary Care Unavailable Shai, Massiel Referring Unavailable Robotham, Jodi Attending Unavailable Alexis, Phu Chi Referring Unavailable Alexis, Phu Chi Primary Care Unavailable Alexis, Phu Chi Primary Care Unavailable Robotham, Jodi Attending Unavailable Alexis, Phu Chi Referring Unavailable Shai, Massiel Attending Unavailable Alexis, Phu Chi Referring Unavailable Alexis, Phu Chi Primary Care Unavailable Josh Gibbs Attending Unavailable Alexis, Phu Chi Primary Care Unavailable Alexis, Phu Chi Referring Unavailable Octavio Archuleta Attending Unavailable Shai, Massiel Referring Unavailable Shai, Massiel [...] Care Unavailable Alexis, Phu Chi Attending Unavailable Shai, Massiel Referring Unavailable Shai, Massiel Attending Unavailable Alexis, Phu Chi Primary Care Unavailable Alexis, Phu Chi Primary Care Unavailable Alexis, Phu Chi Attending Unavailable Allergies Allergy Classification Reported Allergen(s) Allergy Type Date of Onset Reaction(s) Facility (20 sources) Codeine Drug Allergy 6 Mental Status Change [facility] (20 sources) predniSONE Drug Allergy 6 Mental Status Change [facility] (1 source) Sertraline Drug Allergy 2 Unknown [facility] (8 sources) Nuts (not including peanuts) Allergy to substance 2 Anaphylaxis [facility] Work Phone: (20 sources) peanut allergenic extract Drug Allergy 2 Anaphylaxis [facility] (20 sources) Sertraline; Translations: [sertraline HCl] Drug Allergy 2 Other [facility] (20 sources) Shellfish; Translations: [shellfish derived] Allergy to substance 2 Anaphylaxis [facility] (20 sources) nut - unspecified; Translations: [nut - unspecified] Allergy to substance 2 Anaphylaxis [facility] (9 sources) Doxepin Drug Allergy 5 PT UNSURE OF REACTION [facility] (1 source) Codeine Drug Allergy 5 [facility] Repository (1 source) Doxepin Drug Allergy 5 [facility] Repository (1 source) peanut allergenic extract Drug Allergy 5 [facility] Rep[facility] (1 source) predniSONE Drug Allergy 5 [facility] Repository Medications Current Medications Medication Drug Class(es) Dates Sig (Normalized) Sig (Original) Albuterol Sulfate (20 sources) beta2-Adrenergic Agonist Start: 12-01-2013 take 1 puff(s) by inhalation every four hours as needed Albuterol Sulfate (Ventolin Hfa) 1 INHALER inhaler Active 1 PUFF INHALATION EVERY 4 HOURS NEEDED December 01, 2013 1:22pm Start: 12-01-2013 Start: 12-01-2013 Start: 12-01-2013 Albuterol Sulf ate (Ventolin Hfa) [...] (20 sources) HMG-CoA Reductase Inhibitor Start: 02-03-2021 cetirizine hydrochloride 10 mg oral tablet (20 sources) Histamine-1 Receptor Antagonist Start: 02-03-2021 dapagliflozin 10 mg oral tablet (20 sources) Sodium-Glucose Cotransporter 2 Inhibitor Start: 10-24-2024 End: 11-26-2024 Start: 08-03-2023 End: 05-02-2024 0.5 ml dulaglutide 3 mg/ml auto-injector (20 sources) GLP-1 Receptor Agonist Start: 06-09-2021 Dulaglutide (Trulicity) 1.5 mg/0.5 mL pen injector Active 1.5 MG SC EVERY WEEK 2 June 08, 2021 11:00pm Start: 05-13-2021 End: 06-09-2021 Start: 05-13-2021 End: 06-09-2021 Dulaglutide (Trulicity) 0.75 mg/0.5 mL pen injector Discontinued 0.75 mg SC EVERY WEEK 2 May 27, 2021 1:14pm June 09, 2021 4:30pm [id number] 0.3 ml EPINEPHrine 1 mg/ml auto-injector (20 sources) alpha-Adrenergic Agonist, beta-Adrenergic Agonist, Catecholamine Start: 02-03-2019 Start: 02-03-2019 Start: 12-01-2013 End: 03-02-2023 Start: 12-01-2013 End: 03-02-2023 Epinephrine 0.3 MG syringe D iscontinued 0.3 mg IM NEEDED as needed for Anaphylaxis 2 0 December 01, 2013 3:39pm March 02, 2023 12:14pm Finerenone (15 sources) Start: 10-05-2024 Start: 10-05-2024 take 1 tablet by rebecca th once daily Start: 10-05-2024 take 1 tablet by rebecca th once daily Finerenone (Kerendia) 10 mg tablet Active 10 mg PO DAILY October 05, 2024 12:00am 3 ml insulin lispro 200 unt/ ml pen injector (20 sources) Insulin Analog Start: 11-21-2024 Start: 11-21-2024 Start: 12-06-2023 End: 10-24-2024 Start: 12-06-2023 End: 10-24-2024 Insulin Lispro (Humalog Kwik pen Insulin) 200 unit/mL (3 mL) insulin pen Discontinued 170 U SC ONCE 76.5 1 May 02, 2024 1:11pm October 24, 2024 2:28pm Diabetes mellitus Type 2 diabetes mellitus with hyperglycemia [facility] (current) use of insulin to be used [...] 150 U continuous subcutaneous infusion .continuous 135 3 August 03, 2023 11:17am August 09, 2023 3:52pm Diabetes mellitus Type 2 diabetes mellitus without complications Start: 07-28-2021 End: 01-31-2024 Start: 07-28-2021 End: 08-03-2023 Insulin Lispro (Humalog U-10 0 Insulin) 100 unit/mL solution Discontinued 100 U continuous subcutaneous infusion .continuous 90 August 08, 2022 12:22pm August 03, 2023 11:18am Start: 06-11-2021 End: 07-28-2021 Start: 06-11-2021 End: 07-28-2021 Insulin Lispro (Humalog Kwik pen Insulin) 200 unit/mL (3 mL) insulin pen Discontinued 35 U SC THREE TIMES A DAY 18 June 11, 2021 12:00am July 28, 2021 3:30pm levothyroxine sodium 0.05 mg oral tablet (20 sources) l-Thyroxine Start: 10-24-2024 Start: 10-21-2024 Start: 01-31-2024 End: 10-21-2024 Start: 02-15-2023 End: 01-31-2024 Start: 05-12-2021 Levothyroxine Active EACH PO May 12, 2021 12:00am metFORMIN hydrochloride 1000 mg oral tablet (20 sources) Biguanide Start: 11-01-2023 End: 11-21-2024 Start: 12-01-2013 End: 11-01-2023 pantoprazole 40 mg delayed r elease oral tablet (20 sources) Proton Pump Inhibitor Start: 10-05-2024 Start: 02-15-2023 End: 05-16-2024 PARoxetine hydrochloride 40 mg oral tablet (20 sources) Serotonin Reuptake Inhibitor Start: 11-01-2023 Start: 12-01-2013 End: 11-01-2023 Start: 02-08-2006 PAXIL 30 MG TA B Take one(1) tablet daily. 0 02/08/2006 Active Comment on above: Take one(1) tablet d aily. pioglitazone 30 mg oral tabl et (20 sources) Peroxisome Proliferator Receptor alpha Agonist, Peroxisome Proliferator Receptor gamma Agonist, Thiazolidinedione Start: 10-24-2024 Start: 02-03-2021 End: 05-13-2021 polysaccharide iron complex 150 mg oral capsule (15 sources) Start: 10-05-2024 sulfamethoxazole 800 mg / trimethoprim 160 mg oral tablet (20 sources) Dihydrofolate Reductase Inhibitor Antibacterial, Sulfonamide Antimicrobial Start: 10-05-2024 Start: 05-11-2022 End: 02-15-2023 Start: 05-11-2022 End: 02-15-2023 Sulfamethoxazole-Trimethopri m 800-160 mg tablet Discontinued 1 {tbl} PO DAILY May 11, 2022 1:00am February 15, 2023 3:18pm Methicillin resistant Staphylococcus aureus infection Methicillin resistant Staphylococcus aureus infection, unspecified site [facility] Start: 05-11-2022 End: 02-15-2023 take 1 tablet by mouth once daily Sulfamethoxazole-Trimethoprim Discontinued 1 TABLET PO DAILY May 11, 2022 1:00am February 15, 2023 3:18pm 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 320 mg oral tablet (19 sources) Angiotensin 2 Receptor Remy Start: 03-07-2023 Start: 03-07-2023 take 1 tablet by mouth at bedt toro zolpidem tartrate 10 mg oral tablet (20 sources) gamma-Aminobutyric Acid-ergic Agonist Start: 12-01-2013 Start: 12-01-2013 take 5 mg by mouth at bedtime as needed for sleep Completed/Discontinued Medications Medication Drug Class(es) Dates Sig (Normalized) Sig (Original) acetaminophen 325 mg / HYDROcodone bitartrate 5 mg oral tablet (20 sources) Opioid Agonist Start: 11-18-2018 End: 11-24-2018 Start: 11-18-2018 End: 11-24-2018 Hydrocodone-Acetaminophen 1 TABLET tablet Discontinued 1 {tbl} PO [...] 2018 12:08am amoxicillin 500 mg oral capsule (20 sources) Penicillin-class Antibacterial Start: 03-25-2022 End: 04-04-2022 Blood-Glucose Sensor (Dexcom G6 Sensor) device (20 [...] Active 0 .ROUTE .MEDSUPPLY October 05, 2022 3:59pm As directed Start: [...] device Discontinued 0 .ROUTE .MEDSUPPLY 3 July 23, 2021 12:00am February 24, 2022 8:51am As directed Start: 07-23-2021 End: 02-24-2022 Blood-Glucose Sensor (Dexcom G6 Sensor) device Discontinued 0 .ROUTE .MEDSUPPLY July 22, 2021 11:00pm February 24, 2022 [...] mellitus Type 2 diabetes mellitus with hyperglycemia 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 1 transmitter [...] Transmitter) device Discontinued 0 .ROUTE .MEDSUPPLY 1 3 July 23, 2021 12:00am January 12, 2023 [...] 12:00am As directed cephalexin 500 mg oral capsu le (20 sources) Cephalosporin Antibacterial Start: 05-11-2022 End: 02-15-2023 Start: 05-11-2022 End: 02-15-2023 Cephalexin 500 mg capsule Di scontinued 500 mg PO .6hr May 11, 2022 1:00am February 15, 2023 3:19pm Methicillin resistant Staphylococcus aureus infection Methicillin resistant Staphylococcus aureus infection, unspecified site doxycycline hyclate 100 mg o ral capsule (20 sources) Tetracycline-class Drug Start: 03-29-2022 End: 04-08-2022 Start: 02-03-2021 take 100 mg by mouth twice daily Doxycycline Monohydrate Active 100 MG PO TWICE A DAY February 03, 2021 12:00am empagliflozin 25 mg oral tab let (20 sources) Sodium-Glucose Cotransporter 2 Inhibitor Start: 05-02-2024 End: 11-26-2024 gabapentin 100 mg oral capsu le (11 sources) Anti-epileptic Agent Start: 10-21-2024 End: 11-08-2024 glimepiride 4 mg oral tablet (20 sources) Sulfonylurea Start: 12-01-2013 End: 09-12-2014 3 ml insulin degludec 200 unt/ml pen injector (20 sources) Insulin Analog Start: 05-12-2021 End: 07-28-2021 Start: 05-12-2021 End: 07-28-2021 Insulin Degludec 200 [...] April 01, 2016 1:20pm Start: 09-11-2014 End: 04-01-2016 Start: 09-11-2014 End: 09-12-2014 Insulin Detemir U-100 (Levem ir (Bk)) 100 UNITS/ML Insuln.Pen Discontinued 42 U SC AT BEDTIME September 11, 2014 12:00am September 12, 2014 9:16am 3 ml insulin glargine 100 un t/ml / lixisenatide 0.033 mg/ml pen injector (20 sources) Insulin Analog Start: 11-18-2018 End: 05-13-2021 Start: 11-18-2018 End: 05-13-2021 Insulin Glargine-Lixisenatid e 3 ML insulin pen Discontinued 80 U SQ DAILY November 18, 2018 12:00am May 13, 2021 10:09am lisinopril 40 mg oral tablet (20 sources) Angiotensin Converting Enzyme Inhibitor Start: 02-03-2021 End: 08-03-2023 Methylprednisolone (20 sources) Corticosteroid Start: 03-29-2022 End: 04-04-2022 Start: 03-29-2022 End: 04-04-2022 take 1 tablet by mouth once Methylprednisolone (Medrol (Jaime)) 4 mg tablets,dose pack Discontinued 4 mg PO per package directions 21 6 0 March 29, 2022 1:00am April 03, 2022 1:00am April 04, 2022 1:04am ondansetron 4 mg disintegrat ing oral tablet (20 sources) Serotonin-3 Receptor Antagonist Start: 02-03-2022 End: 02-15-2023 valACYclovir 1000 mg oral ta blet (20 sources) Herpesvirus Nucleoside Analog DNA Polymerase Inhibitor, Herpes Simplex Virus Nucleoside Analog DNA Polymerase Inhibitor, Herpes Zoster Virus Nucleoside Analog DNA Polymerase Inhibitor Start: 03-29-2022 End: 04-05-2022 Start: 03-29-2022 End: 04-05-2022 take 1000 mg by mouth three times daily Valacyclovir Discontinued 1000 MG PO THREE TIMES A DAY 14 10March 29, 2022 1:00am April 05, 2022 1:04am (12 sources) Start: 05-15-2023 End: 12-06-2023 Start: 01-12-2023 End: 12-06-2023 Start: 10-05-2022 End: 05-15-2023 Start: 02-24-2022 End: 10-05-2022 Start: 07-23-2021 End: 02-24-2022 Start: 07-23-2021 End: 01-12-2023 Problems Active Problems Problem Classification Problem Date Documented Da te Episodic/Chronic Abdominal pain (20 sources) Right lower quadrant pain; Translations: [Right lower quadrant pain] Episodic Anxiety disorders (9 sources) Anxiety; Translations: [Anxiety disorder, unspecified] 10-24-2024 Chronic Asthma (20 sources) Asthma; Translations: [Unspecified asthma, uncomplicated] 11-18-2018 Chronic Bacterial infection; unspecified site (9 sources) Methicillin resistant Staphylococcus aureus infection; Translations: [Methicillin resistant Staphylococcus aureus infection, unspecified site] 10-24-2024 Episodic Comment on above: 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 keflex and bactrim Cardiac dysrhythmias (18 sources) Bradycardia; Translations: [Bradycardia, unspecified] Onset: 5 10-24-2024 Episodic Chronic kidney disease (20 sources) Chronic kidney disease stage 3; Translations: [Stage 3 chronic kidney disease] 08-17-2022 Chronic Chronic kidney disease (1 source) Chronic kidney disease; Translations: [Chronic kidney disease, stage 3a] Onset: 5 Coronary atherosclerosis and other heart disease (20 sources) Acute coronary syndrome; Translations: [Acute ischemic heart disease, unspecified] 10-05-2024 Chronic Deficiency and other anemia (4 sources) Anemia, unspecified; Translations: [Anemia, unspecified] Onset: 5 02-15-2023 Episodic Deficiency and other anemia (12 sources) Anemia; Translations: [Anemia, unspecified] 12-13-2024 Episodic Diabetes mellitus with complications (1 source) Type 2 diabetes mellitus with hyperglycemia; Translations: [Type 2 diabetes mellitus with hyperglycemia] Onset: 5 Chronic Diabetes mellitus without complication (20 sources) Diabetes mellitus; Translations: [Type 2 diabetes mellitus without complications] Onset: Chronic Diabetes mellitus without complication (15 sources) Insulin pump present; Translations: [Presence of insulin pump (external) (internal)] 10-24-2024 Episodic Disorders of lipid metabolism (20 sources) Hypercholesterolemia; Translations: [Pure hypercholesterolemia, unspecified] Chronic Esophageal disorders (9 sources) Gastroesophageal reflux disease; Translations: [Gastro-esophageal reflux disease without esophagitis] 10-24-2024 Chronic Essential hypertension (20 sources) Hypertensive disorder; Translations: [Essential (primary) hypertension] Onset: Chronic Fever of unknown origin (20 sources) Fever; Translations: [Fever, unspecified] Episodic Genitourinary symptoms and ill-defined conditions (20 sources) History of chronic renal impairment; Translations: [Personal history of other diseases of urinary system] Episodic Headache; including migraine (20 sources) Headache; Translations: [Headache] 11-19-2018 Episodic Hepatitis (9 sources) Viral hepatitis, type A; Translations: [Hepatitis A without hepatic coma] 10-24-2024 Episodic Malaise and fatigue (20 sources) Fatigue; Translations: [Other fatigue] Onset: 5 03-06-2023 Episodic Mood disorders (20 sources) Depressive disorder; Translations: [Depression] 03-06-2023 Chronic Nausea and vomiting (20 sources) Nausea; Translations: [Nausea] Episodic Nutritional deficiencies (20 sources) Vitamin D deficiency; Translations: [Vitamin D deficiency, unspecified] Chronic Osteoarthritis (9 sources) Arthritis; Translations: [Unspecified osteoarthritis, unspecified site] 10-24-2024 Chronic Other connective tissue disease (2 sources) Other symptoms and signs involving the musculoskeletal system; Translations: [Other symptoms and signs involving the musculoskeletal system] Onset: Episodic Other diseases of veins and lymphatics (20 sources) Disorder of soft tissue of lower limb; Translations: [Lymphangitis] 02-11-2021 Chronic Other gastrointestinal disorders (18 sources) Occult blood in stools; Translations: [Other fecal abnormalities] 10-23-2024 Episodic Other injuries and conditions due to external causes (20 sources) Systemic inflammatory response syndrome; Translations: [Systemic inflammatory response syndrome (SIRS) of non-infectious origin without acute organ dysfunction] 02-13-2022 Episodic Other injuries and conditions due to external causes (2 sources) Systemic inflammatory response syndrome (SIRS) of non-infectious origin without acute organ dysfunction; Translations: [Systemic inflammatory response syndrome, unspecified] Episodic Other liver diseases (9 sources) Steatosis of liver; Translations: [Fatty (change of) liver, not elsewhere classified] 10-24-2024 Chronic Other lower respiratory disease (9 sources) Dyspnea on exertion; Translations: [Shortness of breath] 10-24-2024 Episodic Other lower respiratory disease (1 source) Shortness of breath; Translations: [Shortness of breath] Onset: 5 Episodic Other nervous system disorders (9 sources) Carpal tunnel syndrome; Translations: [Carpal tunnel syndrome, unspecified upper limb] 10-24-2024 Chronic Other nervous system disorders (20 sources) Acroparesthesia; Translations: [Paresthesia of skin] 06-09-2021 Episodic Other nervous system disorders (7 sources) Paresthesia of skin; Translations: [Disturbance of skin sensation] Episodic Other nutritional; endocrine; and metabolic disorders (20 sources) Body mass index 40+ - severely obese; Translations: [Morbid (severe) obesity due to excess calories] 11-24-2021 Chronic Other nutritional; endocrine; and metabolic disorders (10 sources) Morbid (severe) obesity due to excess calories; Translations: [Morbid obesity] Onset: 5 Chronic Other nutritional; endocrine; and metabolic disorders (19 sources) Body mass index 30+ - obesity; Translations: [Obesity, unspecified] 11-24-2021 Chronic Other nutritional; endocrine; and metabolic disorders (14 sources) Obesity, unspecified; Translations: [Obesity, unspecified] Chronic Other nutritional; endocrine; and metabolic disorders (16 sources) Obesity; Translations: [Obesity, unspecified] 08-17-2022 Chronic Other nutritional; endocrine; and metabolic disorders (1 source) Body mass index (BMI) 45.0-49.9, adult; Translations: [Body mass index [BMI] 45.0-49.9, adult] Onset: 5 Chronic Other nutritional; endocrine; and metabolic disorders (19 sources) H/O: diabetes mellitus; Translations: [Personal history of other endocrine, nutritional and metabolic disease] 02-03-2022 Episodic Other nutritional; endocrine; and metabolic disorders (3 sources) Personal history of other endocrine, nutritional and metabolic disease; Translations: [Personal history of other endocrine, metabolic, and immunity disorders] Episodic Other upper respiratory infections (20 sources) Acute pharyngitis; Translations: [Acute pharyngitis, unspecified] 03-25-2022 Episodic Skin and subcutaneous tissue infections (20 sources) Cellulitis of lower limb; Translations: [Cellulitis of right lower limb] 02-11-2021 Episodic Syncope (18 sources) Near syncope; Translations: [Syncope and collapse] Onset: 5 10-24-2024 Episodic Thyroid disorders (20 sources) Subclinical hypothyroidism; Translations: [Other specified hypothyroidism] Onset: Chronic Viral infection (20 sources) Herpes zoster; Translations: [Zoster without complications] 03-29-2022 Episodic Past or Other Problems Problem Classification Problem Date Documented Da te Episodic/Chronic Abdominal hernia (18 sources) Incisional hernia; Translations: [Incisional hernia without obstruction or gangrene] Onset: 05-10-2024 2024 Episodic Nonspecific chest pain (20 sources) Chest pain; Translations: [Chest pain, unspecified] Onset: 10-29-2024 10-05-2024 Episodic Other aftercare (1 source) 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; 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] Onset: 05-02-2024 Episodic Other lower respiratory disease (1 source) Wheezing; Translations: [Wheezing] Onset: 04-04-2024 Episodic Residual codes; unclassified (1 source) Chills (without fever); Translations: [Chills (without fever)] Onset: 04-04-2024 Episodic Results Test Name Value Interpretation Reference Range Facility Absolute lymphocyte countOrd ered By: Phu Espinoza on 01-02-2025 Lymphocytes Auto (Unsp spec) [#/Vol] 2.39 10*3/uL 0.83-4.51 [facility] Anion gap in Serum or Plasma Ordered By: Phu Espinoza on 01-02-2025 Anion gap [Moles/Vol] 11 mmol/L - [facility] Automated lymphocyte count a s percentage of total leukocytesOrdered By: Phu Espinoza on 01-02-2025 Lymphocytes/100 WBC Auto (Unsp spec) 41.0 % - [facility] BUN/creatinine ratioOrdered By: Phu Espinoza on 01-02-2025 Urea nitrogen/Creatinine [Mass ratio] 16.2 mg/mg 01-13 [facility] Basophil percentageOrdered B y: Phu Espinoza on 01-02-2025 Basophils/100 WBC (Bld) 0.9 % 0-1 [facility] Bilirubin, totalOrdered By: Phu Espinoza on 01-02-2025 Bilirubin [Mass/Vol] 0.26 mg/dL 0.00-1.30 [facility] CBC W/Diff, Automatedon 10-0 9-2025 Absolute Lymph 2.39 X10 3/uL Normal 0.83-4.51 [facility] Comment on above: Performed By: #### L 501.9520, L100.0100, L500.4050 ####[facility] [address] [place], [address] Absolute Neut 2.4 X10 3/uL Normal 2.0-7.7 [facility] Comment on above: Performed By: #### L 501.9520, L100.0100, L500.4050 ####[facility] [address] [place], [address] Basophils/100 WBC (Bld) 0.9 % Normal 0-1 [facility] Comment on above: Performed By: #### L 501.9520, L100.0100, L500.4050 ####[facility] [address] [place], [address] Eosinophils/100 WBC (Bld) 3.3 % Normal 0-5 [facility] Comment on above: Performed By: #### L 501.9520, L100.0100, L500.4050 ####[facility] [address] [place], [address] Erythrocyte distribution width (RBC) [Ratio] 15.4 % High 11.6-14.6 [facility] Comment on above: Performed By: #### L 501.9520, L100.0100, L500.4050 ####[facility] [address] [place], [address] Hematocrit (Bld) [Volume fraction] 36.0 % Low 37-47 [facility] Comment on above: Performed By: #### L 501.9520, L100.0100, L500.4050 ####[facility] [address] [place], [address] Hemoglobin (Bld) [Mass/Vol] 10.9 g/dL Low 12.0-15.0 [facility] Comment on above: Performed By: #### L 501.9520, L100.0100, L500.4050 ####[facility] [address] [place], [address] IG% 0.300 Normal 0.0-0.9 [facility] Comment on above: Result Comment: IG% - Immature Granulocytes (promyelocytes, myelocytes and metamyelocytes) > 1% indicates that a LEFT SHIFT is Present. Performed By: #### L 501.9520, L100.0100, L500.4050 ####[facility] [address] [place], [address] Lymphocytes/100 WBC (Bld) 41.0 % Normal 19-41 [facility] Comment on above: Performed By: #### L 501.9520, L100.0100, L500.4050 ####[facility] [address] [place], [address] MCH (RBC) [Entitic mass] 23.1 pg Low 27.0-32.0 [facility] Comment on above: Performed By: #### L 501.9520, L100.0100, L500.4050 ####[facility] [address] [place], [address] MCHC (RBC) [Mass/Vol] 30.3 g/dL Low 32-36 [facility] Comment on above: Performed By: #### L 501.9520, L100.0100, L500.4050 ####[facility] [address] [place], [address] MCV (RBC) [Entitic vol] 76.3 fL Low 81-99 [facility] Comment on above: Performed By: #### L 501.9520, L100.0100, L500.4050 ####[facility] [address] [place], [address] Monocytes/100 WBC (Bld) 12.9 % High 0-10 [facility] Comment on above: Performed By: #### L 501.9520, L100.0100, L500.4050 ####[facility] [address] [place], [address] Neutrophils/100 WBC (Bld) 41.6 % Low 47-70 [facility] Comment on above: Performed By: #### L 501.9520, L100.0100, L500.4050 ####[facility] [address] [place], [address] Nucleated RBC (Bld) [#/Vol] 0 10*3/uL Normal 0-5 [facility] Comment on above: Performed By: #### L 501.9520, L100.0100, L500.4050 ####[facility] [address] [place], [address] Platelet mean volume (Bld) [Entitic vol] 9.5 fL Normal 6.2-12.0 [facility] Comment on above: Performed By: #### L 501.9520, L100.0100, L500.4050 ####[facility] [address] [place], [address] Platelets (Bld) [#/Vol] 308 10*3/uL Normal 150-450 [facility] Comment on above: Performed By: #### L 501.9520, L100.0100, L500.4050 ####[facility] [address] [place], [address] RBC (Bld) [#/Vol] 4.72 10*6/uL Normal 4.2-5.4 [facility] Comment on above: Performed By: #### L 501.9520, L100.0100, L500.4050 ####[facility] [address] [place], [address] RDW SD 41.7 fl Normal 35.1-43.9 [facility] Comment on above: Performed By: #### L 501.9520, L100.0100, L500.4050 ####[facility] [address] [place], [address] WBC (Bld) [#/Vol] 5.8 10*3/uL Normal 4.4-11.0 [facility] Comment on above: Performed By: #### L 501.9520, L100.0100, L500.4050 ####[facility] [address] [place], [address] Carbon dioxide, total [Moles /volume] in Central venous bloodOrdered By: Phu Espinoza on 01-02-2025 CO2 [Moles/Vol] 27.4 mmol/L 21.0-32.0 [facility] Chloride assayOrdered By: Sloan Espinoza on 01-02-2025 Chloride [Moles/Vol] 103 mmol/L 98-108 [facility] Comprehensive Metabolic Prof ilon 01-02-2025 Albumin [Mass/Vol] 4.3 g/dL Normal 3.5-5.0 [facility] Comment on above: Performed By: #### L 501.9520, L100.0100, L500.4050 ####[facility] [address] [place], [address] Albumin/Globulin [Mass ratio] 1.4 {ratio} Normal 0.9-2.4 [facility] Comment on above: Performed By: #### L 501.9520, L100.0100, L500.4050 ####[facility] [address] [place], [address] ALK PHOS 54 U/L Normal 35-104 [facility] Comment on above: Performed By: #### L 501.9520, L100.0100, L500.4050 ####[facility] [address] [place], [address] ALT [Catalytic activity/Vol] 75 U/L High <=34 [facility] Comment on above: Performed By: #### L 501.9520, L100.0100, L500.4050 ####[facility] [address] [place], [address] AST [Catalytic activity/Vol] 60 U/L High <=31 [facility] Comment on above: Performed By: #### L 501.9520, L100.0100, L500.4050 ####[facility] [address] [place], [address] Bilirubin [Mass/Vol] 0.26 mg/dL Normal 0.00-1.30 [facility] Comment on above: Performed By: #### L 501.9520, L100.0100, L500.4050 ####[facility] [address] [place], [address] BUN/CRE 16.2 RATIO Normal 10-20 [facility] Comment on above: Performed By: #### L 501.9520, L100.0100, L500.4050 ####[facility] [address] [place], [address] Calcium [Mass/Vol] 9.5 mg/dL Normal 7.6-11.0 [facility] Comment on above: Performed By: #### L 501.9520, L100.0100, L500.4050 ####[facility] [address] [place], [address] Chloride [Moles/Vol] 103 mmol/L Normal 98-108 [facility] Comment on above: Performed By: #### L 501.9520, L100.0100, L500.4050 ####[facility] [address] [place], [address] CO2 [Moles/Vol] 27.4 mmol/L Normal 21.0-32.0 [facility] Comment on above: Performed By: #### L 501.9520, L100.0100, L500.4050 ####[facility] [address] [place], [address] Creatinine [Mass/Vol] 1.03 mg/dL Normal 0.70-1.20 [facility] Comment on above: Performed By: #### L 501.9520, L100.0100, L500.4050 ####[facility] [address] [place], [address] GAP 11 Normal 5-15 [facility] Comment on above: Performed By: #### L 501.9520, L100.0100, L500.4050 ####[facility] [address] [place], [address] GFR/1.73 sq M.predicted among non-blacks MDRD (S/P/Bld) [Vol rate/Area] 65 mL/min/{1.73_m2} Normal >60 [facility] Comment on above: Result Comment: mL/m in/1.73m2 CKD-EPI Creatinine Equation (2020) Performed By: #### L 501.9520, L100.0100, L500.4050 ####[facility] [address] [place], [address] Globulin (S) [Mass/Vol] 3.2 g/dL Normal 2.2-4.2 [facility] Comment on above: Performed By: #### L 501.9520, L100.0100, L500.4050 ####[facility] [address] [place], [address] Glucose [Mass/Vol] 116 mg/dL High 70-99 [facility] Comment on above: Performed By: #### L 501.9520, L100.0100, L500.4050 ####[facility] [address] [place], [address] Potassium [Moles/Vol] 4.5 mmol/L Normal 3.3-5.1 [facility] Comment on above: Performed By: #### L 501.9520, L100.0100, L500.4050 ####[facility] [address] [place], [address] Sodium [Moles/Vol] 142 mmol/L Normal 133-145 [facility] Comment on above: Performed By: #### L 501.9520, L100.0100, L500.4050 ####[facility] [address] [place], [address] T PROT 7.5 g/dL Normal 5.9-8.4 [facility] Comment on above: Performed By: #### L 501.9520, L100.0100, L500.4050 ####[facility] [address] [place], [address] Urea nitrogen [Mass/Vol] 17 mg/dL Normal 4-19 [facility] Comment on above: Performed By: #### L 501.9520, L100.0100, L500.4050 ####[facility] [address] [place], [address] Eosinophil percentageOrdered By: Phu Espinoza on 01-02-2025 Eosinophils/100 WBC (Bld) 3.3 % 0-5 [facility] Erythrocyte distribution wid th ratioOrdered By: Phu Espinoza on 01-02-2025 Erythrocyte distribution width (RBC) [Ratio] 15.4 % High 11.6-14.6 [facility] Erythrocyte distribution wid th standard deviationOrdered By: Phu Espinoza on 01-02-2025 Erythrocyte distribution width (RBC) [Ratio] 41.7 fl 35.1-43.9 [facility] Glomerular filtration rate ( GFR) estimation/1.73 sq m using serum, plasma, or whole bOrdered By: Phu Espinoza on 01-02-2025 GFR/1.73 sq M.predicted among non-blacks MDRD (S/P/Bld) [Vol rate/Area] 65 mL/min/{1.73_m2} >60 [facility] Hematocrit Auto (Bld) [Volum e fraction]Ordered By: Phu Espinoza on 01-02-2025 Hematocrit (Bld) [Volume fraction] 36.0 % Low 37-47 [facility] Hemoglobin measurementOrdere d By: Phu Espinoza on 01-02-2025 Hemoglobin (Bld) [Mass/Vol] 10.9 g/dL Low 12.0-15.0 [facility] Immature granulocytes/100 WB C Auto (Bld)Ordered By: Phu Espinoza on 01-02-2025 Immature granulocytes/100 WBC (Bld) 0.300 % 0.0-0.9 [facility] MCV (mean corpuscular volume ) determinationOrdered By: Phu Espinoza on 01-02-2025 MCV (RBC) [Entitic vol] 76.3 fL Low 81-99 [facility] Mean corpuscular hemoglobin (MCH) determinationOrdered By: Phu Espinoza on 01-02-2025 MCH (RBC) [Entitic mass] 23.1 pg Low 27.0-32.0 [facility] Monocyte percentageOrdered B y: Phu Espinoza on 01-02-2025 Monocytes/100 WBC (Bld) 12.9 % High 0-10 [facility] Neutrophil percentageOrdered By: Phu Espinoza on 01-02-2025 Neutrophils/100 WBC (Bld) 41.6 % Low 47-70 [facility] No Panel InformationOrdered By: Phu Espinoza on 01-02-2025 60 U/L High <32 [facility] Platelet countOrdered By: Sloan Espinoza on 01-02-2025 Platelets (Bld) [#/Vol] 308 10*3/uL 150-450 [facility] Potassium measurement (mass/ volume)Ordered By: Phu Espinoza on 01-02-2025 Potassium (Unsp spec) [Mass/Vol] 4.5 mmol/L 3.3-5.1 [facility] RBC Auto (Bld) [#/Vol]Ordere d By: Phu Espinoza on 01-02-2025 RBC (Bld) [#/Vol] 4.72 10*6/uL 4.2-5.4 [facility] Serum creatinine measurement (mass/volume)Ordered By: Phu Espinoza on 01-02-2025 Creatinine [Mass/Vol] 1.03 mg/dL 0.70-1.20 [facility] Serum globulin measurementOr dered By: Phu Espinoza on 01-02-2025 Globulin (S) [Mass/Vol] 3.2 g/dL 2.2-4.2 [facility] Serum glucose measurement (m ass/volume)Ordered By: Phu Espinoza on 01-02-2025 Glucose [Mass/Vol] 116 mg/dL High 70-99 [facility] Serum or plasma alanine tobar otransferase (ALT) measurementOrdered By: Phu Espinoza on 01-02-2025 ALT [Catalytic activity/Vol] 75 U/L High <35 [facility] Serum or plasma albumin thiago urement (mass/volume)Ordered By: Phu Espinoza on 01-02-2025 Albumin [Mass/Vol] 4.3 g/dL 3.5-5.0 [facility] Serum or plasma albumin/glob ulin mass ratioOrdered By: Phu Espinoza on 01-02-2025 Albumin/Globulin [Mass ratio] 1.4 {ratio} 0.9-2.4 [facility] Serum or plasma alkaline meg sphatase measurementOrdered By: Phu Espinoza 01-02-2025 ALP [Catalytic activity/Vol] 54 U/L 35-104 [facility] Serum or plasma calcium thiago urement (mass/volume)Ordered By: Phu Espinoza on 01-02-2025 Calcium [Mass/Vol] 9.5 mg/dL 7.6-11.0 [facility] Serum or plasma urea nitroge n measurement (mass/volume)Ordered By: Phu Espinoza on 01-02-2025 Urea nitrogen [Mass/Vol] 17 mg/dL 4-19 [facility] Sodium levelOrdered By: Phu Espinoza on 01-02-2025 Sodium [Moles/Vol] 142 mmol/L 133-145 [facility] TSH DL <= 0.005 mIU/L QnOrde red By: Phu Espinoza on 01-02-2025 TSH Qn 0.485 uIU/mL 0.300-4.200 [facility] Thyroid Stim Hormone (TSH)on 01-02-2025 TSH 0.485 uIU/mL Normal 0.300-4.200 [facility] Comment on above: Performed By: #### L 501.9520, L100.0100, L500.4050 ####[facility] [address] [place], [address] Total proteinOrdered By: Phu Espinoza on 01-02-2025 Protein [Mass/Vol] 7.5 g/dL 5.9-8.4 [facility] White blood cell (WBC) count Ordered By: Phu Espinoza on 01-02-2025 WBC (Bld) [#/Vol] 5.8 10*3/uL 4.4-11.0 [facility] Lyme Antibodies,W Bloton Lyme Additional Comment Normal . [facility] Comment on above: Result Comment: Per CDC criteria, the Lyme IgG Immunoblot is interpreted as positive if IgG-class antibodies are detected to 5 or more B. burgdorferi proteins, and the Lyme IgM Immunoblot is interpreted as positive if IgM-class antibodies are detected to 2 or more B. burgdorferi proteins. Immunoblot patterns not meeting these criteria should not be interpreted as positive. Epitopes from certain B. burgdorferi proteins (e.g., p41) are conserved across other bacteria, which may lead to the detection of IgM-and/or IgG class antibodies on the Lyme disease immunoblots in patients without Lyme disease. Immunoblot should only be ordered on specimens that are positive or equivocal by an FDA-licensed Lyme disease antibody screening test (e.g., EIA). Results of the Lyme IgM immunoblot should not be considered in patients with 30 or more days of symptoms. Performed By: #### L 503.0106, L100.0100 #### [facility] [address] [place], [address] LYME IgG INTERP Negative Normal Negative [facility] Comment on above: Performed By: #### L 503.0106, L100.0100 #### [facility] [address] [place], [address] LYME IgM INTERP Negative Normal Negative [facility] Comment on above: Result Comment: Meek gna Note: Lyme immunoblot alone is not recommended for the diagnosis of Lyme disease. Current guidelines recommend the use of a two-tiered approach to Lyme serology testing to improve the sensitivity and specificity of testing. [facility] offers test code 521979 Lyme Disease Serology with Reflex to aid in the diagnosis of Lyme Disease. Performed By: #### L 503.0106, L100.0100 #### [facility] [address] [place], [address] P18 Ab Absent Normal . [facility] Comment on above: Performed By: #### L 503.0106, L100.0100 #### [facility] [address] [place], [address] P23 Ab Absent Normal . [facility] Comment on above: Performed By: #### L 503.0106, L100.0100 #### [facility] [address] [place], [address] P28 Ab Absent Normal . [facility] Comment on above: Performed By: #### L 503.0106, L100.0100 #### [facility] [address] [place], [address] P30 Ab Absent Normal . [facility] Comment on above: Performed By: #### L 503.0106, L100.0100 #### [facility] [address] [place], [address] P39 Ab Absent Normal . [facility] Comment on above: Performed By: #### L 503.0106, L100.0100 #### [facility] [address] [place], [address] P41 Ab Absent Normal . [facility] Comment on above: Performed By: #### L 503.0106, L100.0100 #### [facility] [address] [place], [address] P45 Ab Absent Normal . [facility] Comment on above: Performed By: #### L 503.0106, L100.0100 #### [facility] [address] [place], [address] P58 Ab Present Normal . [facility] Comment on above: Performed By: #### L 503.0106, L100.0100 #### [facility] [address] [place], [address] P66 Ab Absent Normal . [facility] Comment on above: Performed By: #### L 503.0106, L100.0100 #### [facility] [address] [place], [address] P93 Ab Absent Normal . [facility] Comment on above: Performed By: #### L 503.0106, L100.0100 #### [facility] [address] [place], [address] Lyme Screen W/Reflex WBon LYME SCREEN Ab Negative Normal Negative [facility] Comment on above: Result Comment: Lyme antibodies not detected. Reflex testing is not indicated. No laboratory evidence of infection with B. burgdorferi (Lyme disease). Negative results may occur in patients recently infected (less than or equal to 14 days) with B. burgdorferi. If recent infection is suspected, repeat testing on a new sample collected in 7 to 14 days is recommended. Performed at: [address] [id number] Marketing Intelligence Manager: Pauline Yang MD, Phone: [phone] Performed at: [address] [id number] Marketing Intelligence Manager: Spencer Carbajal PhD, Phone: [phone] Performed By: #### L 503.0106, L100.0100 #### [facility] [address] [place], [address] Tilt Tableon 12-24-2024 Tilt Table [facility] [address] [place] [address] 12/24/241922 MR#: [id number] Acct: [id number] Name: ARLEN NGUYEN Rep #: [id number] : 1970 54 From: Josh Gibbs MD Attending Dr: Dr. Josh Gibbs MD Status: REG C Ordering Dr: Josh Gibbs MD Date: 12/24/24 Location: [facility] Sex: F C Admitted: Staff Staff: Suzette Martinez and Maximo Fields Summary Pre Test Resting HR: 80 Pre Test Resting BP: 142/83 Minimum Test HR: 80 Maximum Test HR: 102 Minimum Test BP: 125/95 Maximum Test BP: 151/91 Reason for Test Termination: Reached Maximum Test Time Physician Tilt Table Report Patient's Physicians Primary Care Physician: Phu Espinoza Chi Indications/Diagnosi s: Presyncope Procedure Comments: 54-year-old lady brought in for evaluation of presyncope. Resting EKG demonstrates sinus rhythm with a rate of 80 bpm. Patient was then put in the 70 degree head upright tilt position and continuous EKG monitoring was performed as well as blood pressure measurements were obtained over total duration of 30 minutes. Patient maintained stable blood pressure and heart rate with fatigue symptomatology. No significant changes in the blood pressure and heart rate were noted as above. EKG maintained sinus rhythm. Summary: Negative head upright tilt table test. 12/24/241925 Date Josh Gibbs MD CC: Dr. Josh Gibbs MD; Dr. Phu Espinoza MD Date Dictated: 12/24/241922 Date Transcribed: 12/24/241922 Labor Contractor: [place] Signed Normal [facility] Absolute lymphocyte countOrd ered By: Josh Gibbs on 12-23-2024 Lymphocytes Auto (Unsp spec) [#/Vol] 2.65 10*3/uL 0.83-4.51 [facility] Absolute neutrophil countOrd ered By: Josh Bernie on 12-23-2024 Neutrophils (Bld) [#/Vol] 3.1 10*3/uL 2.0-7.7 [facility] Anion gap in Serum or Plasma Ordered By: Josh Cox Branson on 12-23-2024 Anion gap [Moles/Vol] 14 mmol/L 5-15 [facility] Automated lymphocyte count a s percentage of total leukocytesOrdered By: Josh Cox Branson on 12-23-2024 Lymphocytes/100 WBC Auto (Unsp spec) 39.8 % 19-41 [facility] BUN/creatinine ratioOrdered By: Josh Cox Branson on 12-23-2024 Urea nitrogen/Creatinine [Mass ratio] 23.6 mg/mg High 10-20 [facility] Basic Metabolic Profile (BMP )on 12-23-2024 BUN/CRE 23.6 RATIO High - [facility] Comment on above: Order Comment: For t ilt table test Performed By: #### L 503.0106, L100.0100 #### [facility] [address] [place], [address] Calcium [Mass/Vol] 9.7 mg/dL Normal 7.6-11.0 [facility] Comment on above: Order Comment: For t ilt table test Performed By: #### L 503.0106, L100.0100 #### [facility] [address] [place], [address] Chloride [Moles/Vol] 102 mmol/L Normal 98-108 [facility] Comment on above: Order Comment: For t ilt table test Performed By: #### L 503.0106, L100.0100 #### [facility] [address] [place], [address] CO2 [Moles/Vol] 24.6 mmol/L Normal 21.0-32.0 [facility] Comment on above: Order Comment: For t ilt table test Performed By: #### L 503.0106, L100.0100 #### [facility] [address] [place], [address] Creatinine [Mass/Vol] 0.90 mg/dL Normal 0.70-1.20 [facility] Comment on above: Order Comment: For t ilt table test Performed By: #### L 503.0106, L100.0100 #### [facility] [address] [place], [address] GAP 14 Normal 5-15 [facility] Comment on above: Order Comment: For t ilt table test Performed By: #### L 503.0106, L100.0100 #### [facility] [address] [place], [address] GFR/1.73 sq M.predicted among non-blacks MDRD (S/P/Bld) [Vol rate/Area] 76 mL/min/{1.73_m2} Normal >60 [facility] Comment on above: Order Comment: For t ilt table test Result Comment: mL/m in/1.73m2 CKD-EPI Creatinine Equation (2020) Performed By: #### L 503.0106, L100.0100 #### [facility] [address] [place], [address] Glucose [Mass/Vol] 115 mg/dL High 70-99 [facility] Comment on above: Order Comment: For t ilt table test Performed By: #### L 503.0106, L100.0100 #### [facility] [address] [place], [address] Potassium [Moles/Vol] 4.2 mmol/L Normal 3.3-5.1 [facility] Comment on above: Order Comment: For t ilt table test Performed By: #### L 503.0106, L100.0100 #### [facility] [address] [place], [address] Sodium [Moles/Vol] 141 mmol/L Normal 133-145 [facility] Comment on above: Order Comment: For t ilt table test Performed By: #### L 503.0106, L100.0100 #### [facility] [address] [place], [address] Urea nitrogen [Mass/Vol] 21 mg/dL High 4-19 [facility] Comment on above: Order Comment: For t ilt table test Performed By: #### L 503.0106, L100.0100 #### [facility] [address] [place], [address] Basophil percentageOrdered B y: Winterthur Bernie on 12-23-2024 Basophils/100 WBC (Bld) 0.8 % 0-1 [facility] CBC W/Diff, Automatedon 11-26 Absolute Lymph 2.65 X10 3/uL Normal 0.83-4.51 [facility] Comment on above: Order Comment: Comme nts: For tilt table test Performed By: #### L 503.0106, L100.0100 #### [facility] [address] [place], [address] Absolute Neut 3.1 X10 3/uL Normal 2.0-7.7 [facility] Comment on above: Order Comment: Comme nts: For tilt table test Performed By: #### L 503.0106, L100.0100 #### [facility] [address] [place], [address] Basophils/100 WBC (Bld) 0.8 % Normal 0-1 [facility] Comment on above: Order Comment: Comme nts: For tilt table test Performed By: #### L 503.0106, L100.0100 #### [facility] [address] [place], [address] Eosinophils/100 WBC (Bld) 2.0 % Normal 0-5 [facility] Comment on above: Order Comment: Comme nts: For tilt table test Performed By: #### L 503.0106, L100.0100 #### [facility] [address] [place], [address] Erythrocyte distribution width (RBC) [Ratio] 15.2 % High 11.6-14.6 [facility] Comment on above: Order Comment: Comme nts: For tilt table test Performed By: #### L 503.0106, L100.0100 #### [facility] [address] [place], [address] Hematocrit (Bld) [Volume fraction] 34.1 % Low 37-47 [facility] Comment on above: Order Comment: Comme nts: For tilt table test Performed By: #### L 503.0106, L100.0100 #### [facility] [address] [place], [address] Hemoglobin (Bld) [Mass/Vol] 10.8 g/dL Low 12.0-15.0 [facility] Comment on above: Order Comment: Comme nts: For tilt table test Performed By: #### L 503.0106, L100.0100 #### [facility] [address] [place], [address] IG% 0.500 Normal 0.0-0.9 [facility] Comment on above: Order Comment: Comme nts: For tilt table test Result Comment: IG% - Immature Granulocytes (promyelocytes, myelocytes and metamyelocytes) > 1% indicates that a LEFT SHIFT is Present. Performed By: #### L 503.0106, L100.0100 #### [facility] [address] [place], [address] Lymphocytes/100 WBC (Bld) 39.8 % Normal 19-41 [facility] Comment on above: Order Comment: Comme nts: For tilt table test Performed By: #### L 503.0106, L100.0100 #### [facility] [address] [place], [address] MCH (RBC) [Entitic mass] 23.6 pg Low 27.0-32.0 [facility] Comment on above: Order Comment: Comme nts: For tilt table test Performed By: #### L 503.0106, L100.0100 #### [facility] [address] [place], [address] MCHC (RBC) [Mass/Vol] 31.7 g/dL Low 32-36 [facility] Comment on above: Order Comment: Comme nts: For tilt table test Performed By: #### L 503.0106, L100.0100 #### [facility] [address] [place], [address] MCV (RBC) [Entitic vol] 74.6 fL Low 81-99 [facility] Comment on above: Order Comment: Comme nts: For tilt table test Performed By: #### L 503.0106, L100.0100 #### [facility] [address] [place], [address] Monocytes/100 WBC (Bld) 10.4 % High 0-10 [facility] Comment on above: Order Comment: Comme nts: For tilt table test Performed By: #### L 503.0106, L100.0100 #### [facility] [address] [place], [address] Neutrophils/100 WBC (Bld) 46.5 % Low 47-70 [facility] Comment on above: Order Comment: Comme nts: For tilt table test Performed By: #### L 503.0106, L100.0100 #### [facility] [address] [place], [address] Nucleated RBC (Bld) [#/Vol] 0 10*3/uL Normal 0-5 [facility] Comment on above: Order Comment: Comme nts: For tilt table test Performed By: #### L 503.0106, L100.0100 #### [facility] [address] [place], [address] Platelet mean volume (Bld) [Entitic vol] 9.5 fL Normal 6.2-12.0 [facility] Comment on above: Order Comment: Comme nts: For tilt table test Performed By: #### L 503.0106, L100.0100 #### [facility] [address] [place], [address] Platelets (Bld) [#/Vol] 279 10*3/uL Normal 150-450 [facility] Comment on above: Order Comment: Comme nts: For tilt table test Performed By: #### L 503.0106, L100.0100 #### [facility] [address] [place], [address] RBC (Bld) [#/Vol] 4.57 10*6/uL Normal 4.2-5.4 [facility] Comment on above: Order Comment: Comme nts: For tilt table test Performed By: #### L 503.0106, L100.0100 #### [facility] [address] [place], [address] RDW SD 40.5 fl Normal 35.1-43.9 [facility] Comment on above: Order Comment: Comme nts: For tilt table test Performed By: #### L 503.0106, L100.0100 #### [facility] [address] [place], [address] WBC (Bld) [#/Vol] 6.7 10*3/uL Normal 4.4-11.0 [facility] Comment on above: Order Comment: Comme nts: For tilt table test Performed By: #### L 503.0106, L100.0100 #### [facility] [address] [place], [address] Carbon dioxide, total [Moles /volume] in Central venous bloodOrdered By: Josh Gibbs on 12-23-2024 CO2 [Moles/Vol] 24.6 mmol/L 21.0-32.0 [facility] Chloride assayOrdered By: Mauricio ril Bernie on 12-23-2024 Chloride [Moles/Vol] 102 mmol/L 98-108 [facility] Eosinophil percentageOrdered By: Josh Bernie on 12-23-2024 Eosinophils/100 WBC (Bld) 2.0 % 0-5 [facility] Erythrocyte distribution wid th ratioOrdered By: Winterthur Bernie on 12-23-2024 Erythrocyte distribution width (RBC) [Ratio] 15.2 % High 11.6-14.6 [facility] Erythrocyte distribution wid th standard deviationOrdered By: Josh Bernie on 12-23-2024 Erythrocyte distribution width (RBC) [Ratio] 40.5 fl 35.1-43.9 [facility] Glomerular filtration rate ( GFR) estimation/1.73 sq m using serum, plasma, or whole bOrdered By: Josh Gibbs on 12-23-2024 GFR/1.73 sq M.predicted among non-blacks MDRD (S/P/Bld) [Vol rate/Area] 76 mL/min/{1.73_m2} >60 [facility] Comment on above: mL/min/1.73m2 CKD-EP I Creatinine Equation (2020) Hematocrit Auto (Bld) [Volum e fraction]Ordered By: Josh Gibbs on 12-23-2024 Hematocrit (Bld) [Volume fraction] 34.1 % Low 37-47 [facility] Hemoglobin measurementOrdere d By: Winterthur Bernie on 12-23-2024 Hemoglobin (Bld) [Mass/Vol] 10.8 g/dL Low 12.0-15.0 [facility] Immature granulocytes/100 WB C Auto (Bld)Ordered By: Josh Bernie on 12-23-2024 Immature granulocytes/100 WBC (Bld) 0.500 % 0.0-0.9 [facility] Comment on above: IG% - Immature Granu locytes (promyelocytes, myelocytes and metamyelocytes) > 1% indicates that a LEFT SHIFT is Present. MCV (mean corpuscular volume ) determinationOrdered By: Josh Bernie on 12-23-2024 MCV (RBC) [Entitic vol] 74.6 fL Low 81-99 [facility] Mean corpuscular hemoglobin (MCH) determinationOrdered By: Winterthur Bernie on 12-23-2024 MCH (RBC) [Entitic mass] 23.6 pg Low 27.0-32.0 [facility] Mean corpuscular hemoglobin concentration (MCHC) determinationOrdered By: Josh Bernie on 12-23-2024 MCHC (RBC) [Mass/Vol] 31.7 g/dL Low 32-36 [facility] Mean platelet volume determi nationOrdered By: Josh Bernie on 12-23-2024 Platelet mean volume (Bld) [Entitic vol] 9.5 fL 6.2-12.0 [facility] Monocyte percentageOrdered B y: Winterthur Bernie on 12-23-2024 Monocytes/100 WBC (Bld) 10.4 % High 0-10 [facility] Neutrophil percentageOrdered By: Josh Bernie on 12-23-2024 Neutrophils/100 WBC (Bld) 46.5 % Low 47-70 [facility] No Panel InformationOrdered By: Massiel Gibbons on 12-23-2024 Absent . [facility] Negative Negative [facility] Comment . [facility] Nucleated red blood cell per centageOrdered By: Winterthur Bernie on 12-23-2024 Nucleated RBC/100 WBC (Bld) [Ratio] 0 % 0-5 [facility] Platelet countOrdered By: Cy ril Bernie on 12-23-2024 Platelets (Bld) [#/Vol] 279 10*3/uL 150-450 [facility] Potassium measurement (mass/ volume)Ordered By: Josh Bernie on 12-23-2024 Potassium (Unsp spec) [Mass/Vol] 4.2 mmol/L 3.3-5.1 [facility] ,Serum,hCG Quali.on 12-23-2024 HCG, SERUM QUAL Negative Normal [facility] Comment on above: Order Comment: For t ilt table test Performed By: #### L 503.0106, L100.0100 #### [facility] [address] [place], [address] RBC Auto (Bld) [#/Vol]Ordere d By: Josh Bernie on 12-23-2024 RBC (Bld) [#/Vol] 4.57 10*6/uL 4.2-5.4 [facility] Serum beta-hCG test, qualita tiveOrdered By: Josh Bernie on 12-23-2024 Beta HCG ( test) Ql Negative [facility] Serum creatinine measurement (mass/volume)Ordered By: Josh Gibbs on 12-23-2024 Creatinine [Mass/Vol] 0.90 mg/dL 0.70-1.20 [facility] Serum glucose measurement (m ass/volume)Ordered By: Josh Bernie on 12-23-2024 Glucose [Mass/Vol] 115 mg/dL High 70-99 [facility] Serum or plasma calcium thiago urement (mass/volume)Ordered By: Josh Bernie on 12-23-2024 Calcium [Mass/Vol] 9.7 mg/dL 7.6-11.0 [facility] Serum or plasma urea nitroge n measurement (mass/volume)Ordered By: Josh Bernie on 12-23-2024 Urea nitrogen [Mass/Vol] 21 mg/dL High 4-19 [facility] Sodium levelOrdered By: Jaswinder coker Bernie on 12-23-2024 Sodium [Moles/Vol] 141 mmol/L 133-145 [facility] White blood cell (WBC) count Ordered By: Josh Gibbs on 12-23-2024 WBC (Bld) [#/Vol] 6.7 10*3/uL 4.4-11.0 [facility] Absolute lymphocyte countOrd ered By: Massiel Gibbons on 12-12-2024 Lymphocytes Auto (Unsp spec) [#/Vol] 1.98 10*3/uL 0.83-4.51 [facility] Absolute neutrophil countOrd ered By: Massiel Gibbons on 12-12-2024 Neutrophils (Bld) [#/Vol] 3.3 10*3/uL 2.0-7.7 [facility] Automated lymphocyte count a s percentage of total leukocytesOrdered By: Massiel Gibbons on 12-12-2024 Lymphocytes/100 WBC Auto (Unsp spec) 32.3 % 19-41 [facility] Basophil percentageOrdered B y: Massielaleyda Gibbons on 12-12-2024 Basophils/100 WBC (Bld) 0.7 % 0-1 [facility] CBC W/Diff, Automatedon 11-25 Absolute Lymph 1.98 X10 3/uL Normal 0.83-4.51 [facility] Comment on above: Performed By: #### L 503.0106, L100.0100 #### [facility] [address] [place], [address] Absolute Neut 3.3 X10 3/uL Normal 2.0-7.7 [facility] Comment on above: Performed By: #### L 503.0106, L100.0100 #### [facility] [address] [place], [address] Basophils/100 WBC (Bld) 0.7 % Normal 0-1 [facility] Comment on above: Performed By: #### L 503.0106, L100.0100 #### [facility] [address] [place], [address] Eosinophils/100 WBC (Bld) 2.0 % Normal 0-5 [facility] Comment on above: Performed By: #### L 503.0106, L100.0100 #### [facility] [address] [place], [address] Erythrocyte distribution width (RBC) [Ratio] 14.8 % High 11.6-14.6 [facility] Comment on above: Performed By: #### L 503.0106, L100.0100 #### [facility] [address] [place], [address] Hematocrit (Bld) [Volume fraction] 34.5 % Low 37-47 [facility] Comment on above: Performed By: #### L 503.0106, L100.0100 #### [facility] [address] [place], [address] Hemoglobin (Bld) [Mass/Vol] 10.3 g/dL Low 12.0-15.0 [facility] Comment on above: Performed By: #### L 503.0106, L100.0100 #### [facility] [address] [place], [address] IG% 0.500 Normal 0.0-0.9 [facility] Comment on above: Result Comment: IG% - Immature Granulocytes (promyelocytes, myelocytes and metamyelocytes) > 1% indicates that a LEFT SHIFT is Present. Performed By: #### L 503.0106, L100.0100 #### [facility] [address] [place], [address] Lymphocytes/100 WBC (Bld) 32.3 % Normal 19-41 [facility] Comment on above: Performed By: #### L 503.0106, L100.0100 #### [facility] [address] [place], [address] MCH (RBC) [Entitic mass] 23.1 pg Low 27.0-32.0 [facility] Comment on above: Performed By: #### L 503.0106, L100.0100 #### [facility] [address] [place], [address] MCHC (RBC) [Mass/Vol] 29.9 g/dL Low 32-36 [facility] Comment on above: Performed By: #### L 503.0106, L100.0100 #### [facility] [address] [place], [address] MCV (RBC) [Entitic vol] 77.5 fL Low 81-99 [facility] Comment on above: Performed By: #### L 503.0106, L100.0100 #### [facility] [address] [place], [address] Monocytes/100 WBC (Bld) 11.3 % High 0-10 [facility] Comment on above: Performed By: #### L 503.0106, L100.0100 #### [facility] [address] [place], [address] Neutrophils/100 WBC (Bld) 53.2 % Normal 47-70 [facility] Comment on above: Performed By: #### L 503.0106, L100.0100 #### [facility] [address] [place], [address] Nucleated RBC (Bld) [#/Vol] 0 10*3/uL Normal 0-5 [facility] Comment on above: Performed By: #### L 503.0106, L100.0100 #### [facility] [address] [place], [address] Platelet mean volume (Bld) [Entitic vol] 9.1 fL Normal 6.2-12.0 [facility] Comment on above: Performed By: #### L 503.0106, L100.0100 #### [facility] [address] [place], [address] Platelets (Bld) [#/Vol] 290 10*3/uL Normal 150-450 [facility] Comment on above: Performed By: #### L 503.0106, L100.0100 #### [facility] [address] [place], [address] RBC (Bld) [#/Vol] 4.45 10*6/uL Normal 4.2-5.4 [facility] Comment on above: Performed By: #### L 503.0106, L100.0100 #### [facility] [address] [place], [address] RDW SD 41.4 fl Normal 35.1-43.9 [facility] Comment on above: Performed By: #### L 503.0106, L100.0100 #### [facility] [address] [place], [place], [address] WBC (Bld) [#/Vol] 6.1 10*3/uL Normal 4.4-11.0 [facility] Comment on above: Performed By: #### L 503.0106, L100.0100 #### [facility] [address] [place], [address] Endocrinology Visit Reporton 12-12-2024 Endocrinology Visit Report [facility] [address] [place], [place] [address] OFFICE VISIT Date of Service: 12/12/24 MR#: [id number] Acct: [id number] Name: ARLEN NGUYEN Hattie Rep #: [id number] : 1970 Provider: ADELITA martin Age/Sex: 54/F Location: [facility] Status: Signed Intake Vital Signs 11/08/24 13:04 12/12/24 10:37 Height 5 ft 7 in 5 ft 7 in Weight: 292 lb 4 oz BMI 45.8 BP 132/84 H Blood Pressure Location Rt brachial Position Sitting Pulse 79 Pulse Source Monitor Pulse Oximetry (%) 96 Oxygen Delivery Method room air Intake Visit Reasons: 7 M FU Chief Complaint: f/u diabetes Is patient in pain?: No Allergies doxepin Allergy (Intermediate, Verified 12/12/24 10:43) PT UNSURE OF REACTION nut - unspecified Allergy (Verified 12/12/24 10:43) Anaphylaxis peanut Allergy (Verified 12/12/24 10:43) Anaphylaxis shellfish derived Allergy (Verified 12/12/24 10:43) Anaphylaxis codeine Adverse Reaction (Verified 12/12/24 10:43) Rash prednisone Adverse Reaction (Verified 12/12/24 10:43) Other sertraline HCl (From Zoloft) Adverse Reaction (Verified 12/12/24 10:43) Other Medications ???Medication ???Instructions ???Recorded ???Confirmed ???Type albuterol sulfate 90 mcg/actuation 1 puff inhalation Q4H PRN PRN 12/12/24 History aerosol inhaler (Ventolin HFA) Shortness Of Breath zolpidem 10 mg tablet (Ambien) 5 mg PO QHS PRN sleep 12/01/13 History epinephrine 0.3 mg/0.3 mL 0.3 mg (0.3 mL) IJ X1 PRN 02/03/19 12/12/24 Rx injection, auto-injector Anaphylaxis ##1 atorvastatin 40 mg tablet 40 mg PO DAILY 02/03/21 12/12/24 H istory cetirizine 10 mg tablet 10 mg PO DAILY 02/03/21 12/12/24 H istory valsartan 320 mg tablet 320 mg PO QHS 03/07/23 12/12/24 Hi story paroxetine HCl 40 mg tablet 40 mg PO QDAY 11/01/23 12/12/24 Hi story finerenone 10 mg tablet (Kerendia) 10 mg PO DAILY 10/05/24 12/12/24 History pantoprazole 40 mg tablet,delayed 40 mg PO DAILY 10/05/24 12/12/24 History release polysaccharide iron complex 150 mg 150 mg PO DAILY 10/05/24 5 History iron capsule (Ferrex) sulfamethoxazole 800 1 tab PO QHS 10/05/24 12/12/24 His tory mg-trimethoprim 160 mg tablet levothyroxine 112 mcg tablet 112 mcg PO QDAY 10/21/24 12/12/24 History levothyroxine 50 mcg tablet 50 mcg PO QDAY 10/24/24 12/12/24 H istory pioglitazone 30 mg tablet (Actos) 30 mg PO QDAY 10/24/24 12/12/24 H istory insulin lispro 200 unit/mL (3 mL) 170 unit (0.85 mL) subcut ONCE 12/12/24 Rx subcutaneous pen (Humalog KwikPen #76.5 mL U-200 Insulin) insulin lispro 200 unit/mL (3 mL) 170 unit (0.85 mL) subcut ONCE 12/12/24 Rx subcutaneous pen (Humalog KwikPen #76.5 mL U-200 Insulin) metformin 1,000 mg tablet 1,000 mg PO BID #1 TAB 11/21/24 Rx dapagliflozin propanediol 10 mg 10 mg PO QDAY #90 tabs 11/26/24 Rx tablet (Farxiga) PFS Medical History Near syncope Bradycardia Diabetes Incisional hernia Fatigue CKD (chronic kidney disease) stage 3, GFR 30-59 ml/min Vitamin D deficiency Asthma Acute coronary syndrome Anxiety Fatty liver GERD (gastroesophageal reflux disease) Shortness of breath on exertion MRSA (methicillin resistant Staphylococcus aureus) Insulin pump in place SIRS (systemic inflammatory response syndrome) Hypothyroidism Neuropathy Hives Hepatitis A Carpal tunnel syndrome Arthritis Depression High cholesterol Hypertension Migraines Morbid obesity with BMI of 45.0-49.9, adult Surgical History Tonsillectomy planned delivery delivered S/P section History of endometrial ablation History of removal of ovarian cyst History of cholecystectomy Family History Daughter Bleeding disorder Brother Diabetes Hypertension CAD (coronary artery disease) Sister Diabetes Other Alcohol abuse Anxiety Arthritis Asthma Bowel disease Depression Severe allergy Social History household members: none Smoking Status: Never smoker substance use type: does not use what type of physical activity do you participate in: walking HPI HPI Chief Complaint: f/u diabetes Details: ARLEN NGUYEN, is a 54 F who presents to the office today for evaluation and management of diabetes. A1C today is 6.3%, improved from 05/02/24 at 6.7%. Weight relatively stable. Currently using [place] 780g with Guardian CGM. Insulin pump downloaded and reviewed- Additionally she is taking metformin 1 gm BID with food and (more content not included)... Normal [facility] Eosinophil percentageOrdered By: Massiel Gibbons on 12-12-2024 Eosinophils/100 WBC (Bld) 2.0 % 0-5 [facility] Erythrocyte distribution wid th ratioOrdered By: Massiel Gibbons on 12-12-2024 Erythrocyte distribution width (RBC) [Ratio] 14.8 % High 11.6-14.6 [facility] Erythrocyte distribution wid th standard deviationOrdered By: Massiel Gibbons on 12-12-2024 Erythrocyte distribution width (RBC) [Ratio] 41.4 fl 35.1-43.9 [facility] Hematocrit Auto (Bld) [Volum e fraction]Ordered By: Massiel Gibbons on 12-12-2024 Hematocrit (Bld) [Volume fraction] 34.5 % Low 37-47 [facility] Hemoglobin measurementOrdere d By: Massiel Gibbons on 12-12-2024 Hemoglobin (Bld) [Mass/Vol] 10.3 g/dL Low 12.0-15.0 [facility] Immature granulocytes/100 WB C Auto (Bld)Ordered By: Massiel Gibbons on 12-12-2024 Immature granulocytes/100 WBC (Bld) 0.500 % 0.0-0.9 [facility] Comment on above: IG% - Immature Granu locytes (promyelocytes, myelocytes and metamyelocytes) > 1% indicates that a LEFT SHIFT is Present. Laboratory - Hematology and Cell countsOrdered By: Massiel Gibbons on 12-12-2024 HbA1c (Bld) [Mass fraction] 6.3 % 4.2-6.3 [facility] MCV (mean corpuscular volume ) determinationOrdered By: Massiel Gibbons on 12-12-2024 MCV (RBC) [Entitic vol] 77.5 fL Low 81-99 [facility] Mean corpuscular hemoglobin (MCH) determinationOrdered By: Massiel Gibbons on 12-12-2024 MCH (RBC) [Entitic mass] 23.1 pg Low 27.0-32.0 [facility] Mean corpuscular hemoglobin concentration (MCHC) determinationOrdered By: Massiel Gibbons on 12-12-2024 MCHC (RBC) [Mass/Vol] 29.9 g/dL Low 32-36 [facility] Mean platelet volume determi nationOrdered By: Massiel Gibbons on 12-12-2024 Platelet mean volume (Bld) [Entitic vol] 9.1 fL 6.2-12.0 [facility] Monocyte percentageOrdered B y: Massiel Gibbons on 12-12-2024 Monocytes/100 WBC (Bld) 11.3 % High 0-10 [facility] Neutrophil percentageOrdered By: Massiel Gibbons on 12-12-2024 Neutrophils/100 WBC (Bld) 53.2 % 47-70 [facility] No Panel InformationOrdered By: Massiel Gibbons on 12-12-2024 6.3 % 4.2-6.3 [facility] Nucleated red blood cell per centageOrdered By: Massiel Gibbons on 12-12-2024 Nucleated RBC/100 WBC (Bld) [Ratio] 0 % 0-5 [facility] Platelet countOrdered By: Me jim Gibbons on 12-12-2024 Platelets (Bld) [#/Vol] 290 10*3/uL 150-450 [facility] RBC Auto (Bld) [#/Vol]Ordere d By: Massiel Gibbons on 12-12-2024 RBC (Bld) [#/Vol] 4.45 10*6/uL 4.2-5.4 [facility] Retic Panelon 12-12-2024 IM RET FRACTION 40.20 High 3.00-15.90 [facility] Comment on above: Performed By: #### L 503.0106, L100.0100 #### [facility] Laboratory [address] [place], [address] RET-HE 23.1 pg Low 30-35 [facility] Comment on above: Performed By: #### L 503.0106, L100.0100 #### [facility] Laboratory [address] [place], [address] Retic Count 2.39 High 0.5-1.5 [facility] Comment on above: Performed By: #### L 503.0106, L100.0100 #### [facility] Laboratory [address] [place], [address] Reticulocyte hemoglobin equi valent (RET-He) measurementOrdered By: Massiel Gibbons on 12-12-2024 Hemoglobin (Reticulocytes) [Entitic mass] 23.1 pg Low 30-35 [facility] Reticulocytes Auto (Bld) [#/ Vol]Ordered By: Massiel Gibbons on 12-12-2024 Reticulocytes/100 RBC (Bld) 2.39 % High 0.5-1.5 [facility] Vitamin B12on 12-12-2024 Cobalamin (Vitamin B12) [Mass/Vol] 390 pg/mL Normal 180-914 [facility] Comment on above: Performed By: #### L 503.0106, L100.0100 #### [facility] Laboratory [address] [place], [address] Vitamin B12 ser/plasOrdered By: Massiel Gibbons on 12-12-2024 Cobalamin (Vitamin B12) [Mass/Vol] 390 pg/mL 180-914 [facility] White blood cell (WBC) count Ordered By: Massiel Gibbons on 12-12-2024 WBC (Bld) [#/Vol] 6.1 10*3/uL 4.4-11.0 [facility] Cardiovascular stress test r eportOrdered By: Josh Gibbs on 12-11-2024 Study report [facility] Cardiovascular Services [address] [place] [address] MR#: [id number] Acct: [id number] Name: ARLEN NGUYEN Rep #: [id number] : 1970 54 From: Josh Gibbs MD Primary Care: Dr. Phu Espinoza MD Status : REG CLI Referring Dr: Josh Gibbs MD Sex: F C Stress Test Report Exercise stress test. 54-year-old female with a history of arrhythmia. Stress protocol: Resting EKG demonstrates normal sinus rhythm with a rate of 86 bpm resting bloodpressure is 160/90 mmHg. The patient exercised according to the regular Shad protocol for a total duration of 3 minutes attaining a maximum heart rate of 141bpm which was 84% of maximum predicted heart rate; the maximum workload was 4.6 metabolic equivalents. At rest there were no ST or T wave changes noted to suggest ischemia and at peak exercise upsloping ST changes only were noted whichdid not meet the criteria for ischemia. No clinical angina was noted the test was terminated due to the target heart rate being achieved/fatigue. The peak blood pressure was 182/83 mmHg. Rate-pressure product was 23,000. Conclusion: Exercise stress test with no EKG criteria for ischemia at a low to moderate workload. 12/11/241752 Date _ Josh Gibbs MD CC: Dr. Josh Gibbs MD; Dr. Phu Espinoza MD ~ Date Dictated: 12/11/241750 Date Transcribed: 12/11/241750 Labor Contractor: [place] Signed [facility] Work Phone: Stress Reporton 12-11-2024 Stress Report [facility] Cardiovascular Services [address] [place] [address] MR#: [id number] Acct: [id number] Name: ARLEN NGUYEN Rep #: [id number] : 1970 54 From: Josh Gibbs MD Primary Care: Dr. Phu Espinoza MD Status: REG CLI Referring Dr: Josh Gibbs MD Sex: F C Stress Test Report Exercise stress test. 54-year-old female with a history of arrhythmia. Stress protocol: Resting EKG demonstrates normal sinus rhythm with a rate of 86 bpm resting blood pressure is 160/90 mmHg. The patient exercised according to the regular Shad protocol for a total duration of 3 minutes attaining a maximum heart rate of 141 bpm which was 84% of maximum predicted heart rate; the maximum workload was 4.6 metabolic equivalents. At rest there were no ST or T wave changes noted to suggest ischemia and at peak exercise upsloping ST changes only were noted which did not meet the criteria for ischemia. No clinical angina was noted the test was terminated due to the target heart rate being achieved/fatigue. The peak blood pressure was 182/83 mmHg. Rate-pressure product was 23,000. Conclusion: Exercise stress test with no EKG criteria for ischemia at a low to moderate workload. 12/11/241752 Date Josh Gibbs MD CC: Dr. Josh Gibbs MD; Dr. Phu Espinoza MD Date Dictated: 09/17/25 1751 Date Transcribed: 12/11/24 Labor Contractor: [place] Signed Normal [facility] Magnetic resonance imaging r eportOrdered By: Rusty Ramirez on 11-20-2024 Study report [facility] Imaging Services [address] [place] [address] Spine Cervical (Routine) MR#: [id number] Acct: [id number] Name: ARLEN NGUYEN Rep #: [id number] : 1970 F 54 From: Susanne Ramirez MD PCP: Dr. Phu Espinoza MD Status: REG C LI Study:Spine Cervical (Routine) Date of Exam: 11/18/24 Exam# [id number] Ordering Dr: Phu Espinoza MD PROCEDURE: SPINE CERVICAL (ROUTINE) 11/18/2024 REASON FOR EXAM: WEAKNESS OF BOTH ARMS TECHNIQUE: SPINE CERVICAL (ROUTINE) Multiplanar and multisequence images were obtained without IV contrast administration. FINDINGS: Normal cervical alignment and vertebral body height. No cord compression or abnormal cord signal. There is no Chiari deformity. C2-3, C3-4 and C4-5 are unremarkable. At C5-6 and C6-7 there is broad-based annular bulging with mild canal narrowing and right-sided foraminal narrowing of moderate degree. C7-T1 is unremarkable. MRI/Spine Cervical (Routine) IMPRESSION: Mild canal narrowing at C5-6 and C6-7 with right-sided foraminal narrowing at both levels. No cord compression or abnormal cord signal Reading Location: [facility] CC: Dr. 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 [facility] Brain without Contraston Brain without Contrast [facility] Imaging Services [address] [place] [address] Brain without Contrast MR#: [id number] Acct: [id number] Name: ARLEN NGUYEN Rep #: [id number] : 1970 F 54 From: Jarvis Avendaño MD PCP: Dr. Phu Espinoza MD Status: REG CLI Study: Brain without Contrast Date of Exam: 11/18/24 Exam# [id number] Ordering Dr: Phu Espinoza MD PROCEDURE: MRI BRAIN WITHOUT CONTRAST 11/18/2024 REASON FOR EXAM: WEAKNESS OF BOTH ARMS TECHNIQUE: Multiplanar and multisequential MRI of the brain was performed without contrast. COMPARISON: CT head 11/18/2018. FINDINGS: No regions of abnormal restricted diffusion to indicate recent infarct. Ventricular and sulcal size and configuration are within normal limits. No evidence of intracranial hemorrhage, extra-axial collection or mass-effect. Major vascular flow voids are preserved. Few scattered small foci of T2 FLAIR hyperintensity in the supratentorial white matter, and within the central isra, nonspecific but most likely mild chronic microangiopathic changes. Unremarkable orbits. Well-aerated paranasal sinuses and mastoid air cells. MRI/Brain without Contrast IMPRESSION: No acute intracranial abnormality. Few scattered nonspecific foci of T2 FLAIR hyperintensity in the cerebral white matter and within the isra, most likely related to mild leukoaraiosis. Reading Location: [facility] CC: Dr. Phu Espinoza MD Labor Contractor: Signed Normal [facility] Magnetic resonance imaging r eportOrdered By: Jarvis Avendaño on 11-18-2024 Study report [facility] Imaging Services [address] [place], [place] [address] Brain without Contrast MR#: [id number] Acct: [id number] Name: ARLEN NGUYEN Rep #: [id number] : 1970 F 54 From: Guanakito Avendaño MD PCP: Dr. Phu Espinoza MD Status: LINDA MDARIGAL Study:Brain without Contrast Date of Exam: 11/18/24 Exam# [id number] Ordering Dr: Phu Espinoza MD PROCEDURE: MRI BRAIN WITHOUT CONTRAST 11/18/2024 REASON FOR EXAM: WEAKNESS OF BOTH ARMS TECHNIQUE: Multiplanar and multisequential MRI of the brain was performed without contrast. COMPARISON: CT head 11/18/2018. FINDINGS: No regions of abnormal restricted diffusion to indicate recent infarct. Ventricular and sulcal size and configuration are within normal limits. No evidence of intracranial hemorrhage, extra-axial collection or mass-effect. Major vascular flow voids are preserved. Few scattered small foci of T2 FLAIR hyperintensity in the supratentorial white matter, and within the central isra, nonspecific but most likely mild chronic microangiopathic changes. Unremarkable orbits. Well-aerated paranasal sinuses and mastoid air cells. MRI/Brain without Contrast IMPRESSION: No acute intracranial abnormality. Few scattered nonspecific foci of T2 FLAIR hyperintensity in the cerebral white matter and within the isra, most likely related to mild leukoaraiosis. Reading Location: [facility] CC: Dr. 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 [facility] Spine Cervical (Routine)on 0 11-18-2024 Spine Cervical (Routine) [facility] Imaging Services [address] [place] [address] Spine Cervical (Routine) MR#: [id number] Acct: [id number] Name: ARLEN NGUYEN Rep #: [id number] : 1970 F 54 From: Rusty Ramirez MD PCP: Dr. Phu Espinoza MD Status: REG CLI Study: Spine Cervical (Routine) Date of Exam: Exam# [id number] Ordering Dr: Phu Espinoza MD PROCEDURE: SPINE CERVICAL (ROUTINE) 11/18/2024 REASON FOR EXAM: WEAKNESS OF BOTH ARMS TECHNIQUE: SPINE CERVICAL (ROUTINE) Multiplanar and multisequence images were obtained without IV contrast administration. FINDINGS: Normal cervical alignment and vertebral body height. No cord compression or abnormal cord signal. There is no Chiari deformity. C2-3, C3-4 and C4-5 are unremarkable. At C5-6 and C6-7 there is broad-based annular bulging with mild canal narrowing and right-sided foraminal narrowing of moderate degree. C7-T1 is unremarkable. MRI/Spine Cervical (Routine) IMPRESSION: Mild canal narrowing at C5-6 and C6-7 with right-sided foraminal narrowing at both levels. No cord compression or abnormal cord signal Reading Location: [facility] CC: Dr. Phu Espinoza MD Labor Contractor: Signed Normal [facility] Cardiology Visit Reporton Cardiology Visit Report [facility] [address] [place] [address] OFFICE VISIT Date of Service: 11/08/24 MR#: [id number] Acct: [id number] Name: ARLEN NGUYEN Rep #: [id number] : 1970 Provider: Dr. Josh Gibbs MD Age/Sex: 54/F Location: [facility] Status: Signed HPI HPI History of Present Illness Details: Pleasant 54-year-old lady with no past medical history but a history of diabetes mellitus, hypertension, chronic kidney disease who presents for evaluation of bradycardia, exertional chest tightness, as well as dizziness and feeling that her heart rate goes down when she stands up. As part of her workup she underwent an echocardiographic evaluation which demonstrated an ejection fraction of 65% with stage I diastolic dysfunction. A pharmacologic myocardial perfusion scan did not demonstrate any evidence of ischemia though she had atherosclerotic calcifications visualized on an abdominal CT of the abdominal aorta. She has had no meri syncopal episodes she has had some irregular heartbeats and gets short of breath with minimal activity. Her blood pressure she says has been under fairly decent control. Her physical exam demonstrates clear lung panda regular rate and rhythm no pedal edema her electrocardiogram today demonstrates sinus rhythm with a rate of 84 bpm no acute changes. 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 Accompanied by: Self Is patient in pain?: No Allergies doxepin Allergy (Intermediate, Verified 11/08/24 13:12) PT UNSURE OF REACTION nut - unspecified Allergy (Verified 11/08/24 13:12) Anaphylaxis peanut Allergy (Verified 11/08/24 13:12) Anaphylaxis shellfish derived Allergy (Verified 11/08/24 13:12) Anaphylaxis codeine Adverse Reaction (Verified 11/08/24 13:12) Rash prednisone Adverse Reaction (Verified 11/08/24 13:12) Other sertraline HCl (From Zoloft) Adverse Reaction (Verified 11/08/24 13:12) Other Medications ???Medication ???Instructions ???Recorded ???Confirmed ???Type albuterol sulfate 90 mcg/actuation 1 puff inhalation Q4H PRN PRN 11/08/24 History aerosol inhaler (Ventolin HFA) Shortness Of Breath zolpidem 10 mg tablet (Ambien) 5 mg PO QHS PRN sleep 12/01/13 History epinephrine 0.3 mg/0.3 mL 0.3 mg (0.3 mL) IJ X1 PRN 02/03/19 11/08/24 Rx injection, auto-injector Anaphylaxis ##1 atorvastatin 40 mg tablet 40 mg PO DAILY 02/03/21 10/24/24 H istory cetirizine 10 mg tablet 10 mg PO DAILY 02/03/21 10/24/24 H istory valsartan 320 mg tablet 320 mg PO QHS 03/07/23 10/24/24 Hi story metformin 1,000 mg tablet 1,000 mg PO BID 11/01/23 10/24/24 History paroxetine HCl 40 mg tablet 40 mg PO QDAY 11/01/23 10/24/24 Hi story finerenone 10 mg tablet (Kerendia) 10 mg PO DAILY 10/05/24 10/24/24 History pantoprazole 40 mg tablet,delayed 40 mg PO DAILY 10/05/24 10/24/24 History release polysaccharide iron complex 150 mg 150 mg PO DAILY 10/05/24 5 History iron capsule (Ferrex) sulfamethoxazole 800 1 tab PO QHS 10/05/24 10/24/24 His tory mg-trimethoprim 160 mg tablet levothyroxine 112 mcg tablet 112 mcg PO QDAY 10/21/24 10/24/24 History dapagliflozin propanediol 10 mg 10 mg PO QDAY 10/24/24 10/24/24 Hi story tablet (Farxiga) empagliflozin 25 mg tablet 25 mg PO QDAY 10/24/24 10/24/24 Hi story (Jardiance) levothyroxine 50 mcg tablet 50 mcg PO QDAY 10/24/24 10/24/24 H istory pioglitazone 30 mg tablet (Actos) 30 mg PO QDAY 10/24/24 10/24/24 H istory [facility] Medical History Near syncope Bradycardia Diabetes Incisional hernia Fatigue CKD (chronic kidney disease) stage 3, GFR 30-59 ml/min Vitamin D deficiency Asthma Acute coronary syndrome Anxiety Fatty liver GERD (gastroesophageal reflux disease) Shortness of breath on exertion MRSA (methicillin resistant Staphylococcus aureus) Insulin pump in place SIRS (systemic inflammatory response syndrome) Hypothyroidism Neuropathy Hives Hepatitis A Carpal tunnel syndrome Arthritis Depression High cholesterol Hypertension Migraines Morbid obesity with BMI of 45.0-49.9, adult Surgical History Tonsillectomy planned delivery delivered S/P section History of endometrial ablation History of removal of ovarian cyst History o (more content not included)... Normal [facility] NCS and/or EMG Patienton NCS and/or EMG Patient [facility] Pulmonary Services/Neurology [address] [place] [address] MR#: [id number] Acct: [id number] Name: ARLEN NGUYEN Rep #: [id number] : 1970 54 From: Jona Vieira MD Referring Dr: Phu Espinoza MD Status: REG CLI Location: [facility] Date: 10/30/24 Sex: F C NCS and/or EMG Patient Report Ordering Doctor: Phu Espinoza Chi DATE OF SERVICE: 10/30/24 Arlen presents with complaints of weakness in both arms and numbness in the hands, worse on the right side. She has a history of carpal tunnel release bilaterally. Diagnostic findings: Right median motor nerve demonstrates normal distal latency with reduced amplitude and reduced conduction velocity. Left median motor response is within normal limits. Normal ulnar motor response bilaterally. Normal median and ulnar F???waves. Mildly decreased right median sensory latency at the wrist. Needle EMG testing was performed upper limbs. All muscles tested showed no evidence of denervation with normal motor unit action potentials. Electrodiagnostic impression: This is an abnormal study. 1. Electrodiagnostic findings suggestive of right-sided median mononeuropathy. This is consistent with a moderate recurrent right carpal tunnel syndrome. There is no electrodiagnostic evidence for a left carpal tunnel syndrome. 2. No electrodiagnostic evidence is noted for cervical radiculopathy or brachial plexopathy. Multi Select Codes Neurology Neurology Interp Codes: 04893-37 Musc test done w/n test comp (interp) (2) and 72155-49 Nrv cndj test 11-12 studies (interp) 10/30/24 0939 Date Jona Vieira MD CC: Dr. Jona Vieira MD; Dr. Phu Espinoza MD Date Dictated: 10/30/24934 Date Transcribed: 10/30/24934 Labor Contractor: ZEKE Signed Normal [facility] Surgery Visit Reporton 10-21 Surgery Visit Report [facility] [address] [place] [address] OFFICE VISIT Date of Service: 10/21/24 MR#: [id number] Acct: [id number] Name: ARLEN NGUYEN Rep #: [id number] : 1970 Provider: Dr. Jodi back MD Age/Sex: 54/F Location: 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 Normal [facility] Folates, RBCon 10-18-2024 Fol.,Hemolysate 581.0 ng/mL Normal Not Estab. [facility] Comment on above: Performed By: #### L 500.2500 #### [facility] Laboratory [address] [place], [place], [id number] ([phone]) Folate, RBC 1505 ng/mL Normal >498 [facility] Comment on above: Result Comment: Perf ormed at: [facility] [id number] Marketing Intelligence Manager: Spencer Carbajal PhD, Phone: [phone] Performed By: #### L 500.2500 #### [facility] [address] [place], [address] Hematocrit (Bld) [Volume fraction] 38.6 % Normal 34.0-46.6 [facility] Comment on above: Performed By: #### L 500.2500 #### [facility] [address] [place], [address] Quantiferon TB-Gold+on 10-18 QFT MITOGEN KATHRYN > 10.00 Normal . [facility] Comment on above: Performed By: #### L 500.2500 #### [facility] [address] [place], [address] QFT NIL VALUE 0.05 IU/mL Normal . [facility] Comment on above: Performed By: #### L 500.2500 #### [facility] [address] [place], [place], [id number] QFT TB GOLD+ Comment Normal . [facility] Comment on above: Result Comment: Jim tiFERON-TB [...] for the test. Performed By: #### L 500.2500 #### [facility] [address] [place], [place], [id number] QFT TB POS CRIT Negative Normal Negative [facility] Comment on above: Result Comment: No r [...] Chemiluminescence immunoassay methodology Performed By: #### L 500.2500 #### [facility] [address] [place], [place], [id number] QFT TB1+ AG KATHRYN 0.05 IU/mL Normal . [facility] Comment on above: Performed By: #### L 500.2500 #### [facility] [address] [place], [place], [address] QFT TB2+ AG KATHRYN 0.06 IU/mL Normal . [facility] Comment on above: Performed By: #### L 500.2500 #### [facility] [address] [place], [place], [id number] Absolute lymphocyte countOrd ered By: Phu Espinoza on 10-16-2024 Lymphocytes Auto (Unsp spec) [#/Vol] 3.06 10*3/uL 0.83-4.51 [facility] Absolute neutrophil countOrd ered By: Phu Espinoza on 10-16-2024 Neutrophils (Bld) [#/Vol] 4.4 10*3/uL 2.0-7.7 [facility] Anion gap in Serum or Plasma Ordered By: Phu Espinoza on 10-16-2024 Anion gap [Moles/Vol] 16 mmol/L High 5-15 [facility] Automated blood erythrocyte countOrdered By: Phu Espinoza on 10-16-2024 RBC (Bld) [#/Vol] 4.63 10*6/uL Normal 4.2-5.4 [facility] Comment on above: Performed By: #### L 503.0106, L100.0100 #### [facility] [address] [place], [address] Automated blood hematocrit ( percentage)Ordered By: Phu Espinoza on 10-16-2024 Hematocrit (Bld) [Volume fraction] 35.6 % Low 37-47 [facility] Comment on above: Performed By: #### L 503.0106, L100.0100 #### [facility] [address] [place], [address] Automated lymphocyte count a s percentage of total leukocytesOrdered By: Phu Espinoza on 10-16-2024 Lymphocytes/100 WBC Auto (Unsp spec) 35.6 % 19-41 [facility] BUN/creatinine ratioOrdered By: Phu Espinoza on 10-16-2024 Urea nitrogen/Creatinine [Mass ratio] 23.2 mg/mg High 10-20 [facility] Basophil percentageOrdered B y: Phu Espinoza on 10-16-2024 Basophils/100 WBC (Bld) 0.7 % Normal 0-1 [facility] Comment on above: Performed By: #### L 503.0106, L100.0100 #### [facility] [address] [place], [address] Bilirubin, totalOrdered By: Phu Espinoza on 10-16-2024 Bilirubin [Mass/Vol] 0.25 mg/dL 0.00-1.30 [facility] CBC W/Diff, Automatedon 09-25 Absolute Lymph 3.06 X10 3/uL Normal 0.83-4.51 [facility] Comment on above: Performed By: #### L 503.0106, L100.0100 #### [facility] [address] [place], [address] Absolute Neut 4.4 X10 3/uL Normal 2.0-7.7 [facility] Comment on above: Performed By: #### L 503.0106, L100.0100 #### [facility] [address] [place], [address] IG% 0.200 Normal 0.0-0.9 [facility] Comment on above: Result Comment: IG% - Immature Granulocytes (promyelocytes, myelocytes and metamyelocytes) > 1% indicates that a LEFT SHIFT is Present. Performed By: #### L 503.0106, L100.0100 #### [facility] [address] [place], [address] Lymphocytes/100 WBC (Bld) 35.6 % Normal 19-41 [facility] Comment on above: Performed By: #### L 503.0106, L100.0100 #### [facility] [address] [place], [address] Nucleated RBC (Bld) [#/Vol] 0 10*3/uL Normal 0-5 [facility] Comment on above: Performed By: #### L 503.0106, L100.0100 #### [facility] [address] [place], [address] RDW SD 44.2 fl High 35.1-43.9 [facility] Comment on above: Performed By: #### L 503.0106, L100.0100 #### [facility] [address] [place], [address] CRPon 10-16-2024 C-REACTIVE PROT < 3.00 Normal 0.0-3.0 [facility] Comment on above: Performed By: #### L 503.0106, L100.0100 #### [facility] [address] [place], [address] Carbon dioxide, total [Moles /volume] in Central venous bloodOrdered By: Phu Espinoza on 10-16-2024 CO2 [Moles/Vol] 21.1 mmol/L 21.0-32.0 [facility] Chloride assayOrdered By: Sloan Espinoza on 10-16-2024 Chloride [Moles/Vol] 104 mmol/L 98-108 [facility] Comprehensive Metabolic Prof ilon 10-16-2024 Albumin [Mass/Vol] 4.4 g/dL Normal 3.5-5.0 [facility] Comment on above: Performed By: #### L 503.0106, L100.0100 #### [facility] [address] [place], [address] Albumin/Globulin [Mass ratio] 1.3 {ratio} Normal 0.9-2.4 [facility] Comment on above: Performed By: #### L 503.0106, L100.0100 #### [facility] [address] [place], [address] ALK PHOS 51 U/L Normal 35-104 [facility] Comment on above: Performed By: #### L 503.0106, L100.0100 #### [facility] [address] [place], [address] ALT [Catalytic activity/Vol] 82 U/L High <=34 [facility] Comment on above: Performed By: #### L 503.0106, L100.0100 #### [facility] [address] [place], [address] AST [Catalytic activity/Vol] 67 U/L High <=31 [facility] Comment on above: Performed By: #### L 503.0106, L100.0100 #### [facility] [address] [place], [address] Bilirubin [Mass/Vol] 0.25 mg/dL Normal 0.00-1.30 [facility] Comment on above: Performed By: #### L 503.0106, L100.0100 #### [facility] [address] [place], [address] BUN/CRE 23.2 RATIO High 10-20 [facility] Comment on above: Performed By: #### L 503.0106, L100.0100 #### [facility] [address] [place], [address] Calcium [Mass/Vol] 10.1 mg/dL Normal 7.6-11.0 [facility] Comment on above: Performed By: #### L 503.0106, L100.0100 #### [facility] [address] [place], [address] Chloride [Moles/Vol] 104 mmol/L Normal 98-108 [facility] Comment on above: Performed By: #### L 503.0106, L100.0100 #### [facility] [address] [place], [address] CO2 [Moles/Vol] 21.1 mmol/L Normal 21.0-32.0 [facility] Comment on above: Performed By: #### L 503.0106, L100.0100 #### [facility] [address] [place], [address] Creatinine [Mass/Vol] 1.51 mg/dL High 0.70-1.20 [facility] Comment on above: Performed By: #### L 503.0106, L100.0100 #### [facility] [address] [place], [address] GAP 16 High 5-15 [facility] Comment on above: Performed By: #### L 503.0106, L100.0100 #### [facility] [address] [place], [address] GFR/1.73 sq M.predicted among non-blacks MDRD (S/P/Bld) [Vol rate/Area] 41 mL/min/{1.73_m2} Low >60 [facility] Comment on above: Result Comment: mL/m in/1.73m2 CKD-EPI Creatinine Equation (2020) Performed By: #### L 503.0106, L100.0100 #### [facility] [address] [place], [address] Globulin (S) [Mass/Vol] 3.3 g/dL Normal 2.2-4.2 [facility] Comment on above: Performed By: #### L 503.0106, L100.0100 #### [facility] [address] [place], [address] Glucose [Mass/Vol] 84 mg/dL Normal 70-99 [facility] Comment on above: Performed By: #### L 503.0106, L100.0100 #### [facility] [address] [place], [address] Potassium [Moles/Vol] 4.2 mmol/L Normal 3.3-5.1 [facility] Comment on above: Performed By: #### L 503.0106, L100.0100 #### [facility] [address] [place], [address] Sodium [Moles/Vol] 141 mmol/L Normal 133-145 [facility] Comment on above: Performed By: #### L 503.0106, L100.0100 #### [facility] [address] [place], [address] T PROT 7.6 g/dL Normal 5.9-8.4 [facility] Comment on above: Performed By: #### L 503.0106, L100.0100 #### [facility] [address] [place], [address] Urea nitrogen [Mass/Vol] 35 mg/dL High 4-19 [facility] Comment on above: Performed By: #### L 503.0106, L100.0100 #### [facility] [address] [place], [address] Eosinophil percentageOrdered By: Phu Espinoza on 10-16-2024 Eosinophils/100 WBC (Bld) 1.5 % Normal 0-5 [facility] Comment on above: Performed By: #### L 503.0106, L100.0100 #### [facility] [address] [place], [address] Erythrocyte Sed Rateon 10-16 SED RATE 26 mm/hr Normal 0-30 [facility] Comment on above: Performed By: #### L 503.0106, L100.0100 #### [facility] [address] [place], [address] Erythrocyte distribution wid th ratioOrdered By: Phu Espinoza on 10-16-2024 Erythrocyte distribution width (RBC) [Ratio] 16.0 % High 11.6-14.6 [facility] Comment on above: Performed By: #### L 503.0106, L100.0100 #### [facility] [address] [place], [address] Erythrocyte distribution wid th standard deviationOrdered By: Phu Espinoza on 10-16-2024 Erythrocyte distribution width (RBC) [Ratio] 44.2 fl High 35.1-43.9 [facility] Erythrocyte sedimentation ra teOrdered By: Phu Espinoza on 10-16-2024 ESR (Bld) [Velocity] 26 mm/h 0-30 [facility] Glomerular filtration rate ( GFR) estimation/1.73 sq m using serum, plasma, or whole bOrdered By: Phu Espinoza on 10-16-2024 GFR/1.73 sq M.predicted among non-blacks MDRD (S/P/Bld) [Vol rate/Area] 41 mL/min/{1.73_m2} Low >60 [facility] Comment on above: mL/min/1.73m2 CKD-EP I Creatinine Equation (2020) Hemoglobin measurementOrdere d By: Phu Espinoza on 10-16-2024 Hemoglobin (Bld) [Mass/Vol] 11.2 g/dL Low 12.0-15.0 [facility] Comment on above: Performed By: #### L 503.0106, L100.0100 #### [facility] [address] [place], [address] Immature granulocytes/100 WB C Auto (Bld)Ordered By: Phu Alexis on 10-16-2024 Immature granulocytes/100 WBC (Bld) 0.200 % 0.0-0.9 [facility] Comment on above: IG% - Immature Granu locytes (promyelocytes, myelocytes and metamyelocytes) > 1% indicates that a LEFT SHIFT is Present. Laboratory - Chemistry and C hemistry - challengeOrdered By: Phu Alexis on 10-16-2024 AST [Catalytic activity/Vol] 67 U/L High <32 [facility] MCV (mean corpuscular volume ) determinationOrdered By: Phu Alexis on 10-16-2024 MCV (RBC) [Entitic vol] 76.9 fL Low 81-99 [facility] Comment on above: Performed By: #### L 503.0106, L100.0100 #### [facility] [address] [place], [address] Mean corpuscular hemoglobin (MCH) determinationOrdered By: Phu Espinoza on 10-16-2024 MCH (RBC) [Entitic mass] 24.2 pg Low 27.0-32.0 [facility] Comment on above: Performed By: #### L 503.0106, L100.0100 #### [facility] [address] [place], [address] Mean corpuscular hemoglobin concentration (MCHC) determinationOrdered By: Phu Espinoza on 10-16-2024 MCHC (RBC) [Mass/Vol] 31.5 g/dL Low 32-36 [facility] Comment on above: Performed By: #### L 503.0106, L100.0100 #### [facility] [address] [place], [address] Mean platelet volume determi nationOrdered By: Phu Espinoza on 10-16-2024 Platelet mean volume (Bld) [Entitic vol] 11.0 fL Normal 6.2-12.0 [facility] Comment on above: Performed By: #### L 503.0106, L100.0100 #### [facility] [address] [place], [place], [id number] Monocyte percentageOrdered B y: Phu Espinoza on 10-16-2024 Monocytes/100 WBC (Bld) 10.6 % High 0-10 [facility] Comment on above: Performed By: #### L 503.0106, L100.0100 #### [facility] [address] [place], [address] Neutrophil percentageOrdered By: Phu Alexis on 10-16-2024 Neutrophils/100 WBC (Bld) 51.4 % Normal 47-70 [facility] Comment on above: Performed By: #### L 503.0106, L100.0100 #### [facility] [address] [place], [place], [id number] No Panel InformationOrdered By: Phu Espinoza on 10-16-2024 67 U/L High <32 [facility] Nucleated red blood cell per centageOrdered By: Phu Espinoza on 10-16-2024 Nucleated RBC/100 WBC (Bld) [Ratio] 0 % 0-5 [facility] Platelet countOrdered By: Sloan Espinoza on 10-16-2024 Platelets (Bld) [#/Vol] 311 10*3/uL Normal 150-450 [facility] Comment on above: Performed By: #### L 503.0106, L100.0100 #### [facility] [address] [place], [place], [id number] Potassium measurement (mass/ volume)Ordered By: Phu Espinoza on 10-16-2024 Potassium (Unsp spec) [Mass/Vol] 4.2 mmol/L 3.3-5.1 [facility] Serum creatinine measurement (mass/volume)Ordered By: Phu Espinoza on 10-16-2024 Creatinine [Mass/Vol] 1.51 mg/dL High 0.70-1.20 [facility] Serum globulin measurementOr dered By: Phu Espinoza on 10-16-2024 Globulin (S) [Mass/Vol] 3.3 g/dL 2.2-4.2 [facility] Serum glucose measurement (m ass/volume)Ordered By: Phu Espinoza on 10-16-2024 Glucose [Mass/Vol] 84 mg/dL 70-99 [facility] Serum or plasma C reactive p rotein measurement (mass/volume)Ordered By: Phu Espinoza 10-16-2024 CRP [Mass/Vol] mg/L 0.0-3.0 [facility] Serum or plasma alanine tobar otransferase (ALT) measurementOrdered By: Phu Espinoza 10-16-2024 ALT [Catalytic activity/Vol] 82 U/L High <35 [facility] Serum or plasma albumin thiago urement (mass/volume)Ordered By: Phu Espinoza 10-16-2024 Albumin [Mass/Vol] 4.4 g/dL 3.5-5.0 [facility] Serum or plasma albumin/glob ulin mass ratioOrdered By: Phu Espinoza 10-16-2024 Albumin/Globulin [Mass ratio] 1.3 {ratio} 0.9-2.4 [facility] Serum or plasma alkaline meg sphatase measurementOrdered By: Phu Espinoza 10-16-2024 ALP [Catalytic activity/Vol] 51 U/L 35-104 [facility] Serum or plasma calcium thiago urement (mass/volume)Ordered By: Phu Espinoza 10-16-2024 Calcium [Mass/Vol] 10.1 mg/dL 7.6-11.0 [facility] Serum or plasma urea nitroge n measurement (mass/volume)Ordered By: Phu Espinoza 10-16-2024 Urea nitrogen [Mass/Vol] 35 mg/dL High 4-19 [facility] Sodium levelOrdered By: Phu Espinoza 10-16-2024 Sodium [Moles/Vol] 141 mmol/L 133-145 [facility] Total proteinOrdered By: Phu Espinoza 10-16-2024 Protein [Mass/Vol] 7.6 g/dL 5.9-8.4 [facility] White blood cell (WBC) count Ordered By: Phu Espinoza 10-16-2024 WBC (Bld) [#/Vol] 8.6 10*3/uL Normal 4.4-11.0 [facility] Comment on above: Performed By: #### L 503.0106, L100.0100 #### [facility] [address] [place], [place], [address] Culture, Blood (WB)on 2024 CUB No growth in 5 days. Normal [facility] Comment on above: Performed By: #### L 500.2500 #### [facility] [address] [place], [place], [id number] CRP, High Sensitivity [id number] on 10-12-2024 CRP, HIGH SENS 0.43 mg/L Normal 0.00-3.00 [facility] Comment on above: Result Comment: Rela tive Risk for Future Cardiovascular Event Low <1.00 Average 1.00 - 3.00 High >3.00 Performed at: [address] [id number] Marketing Intelligence Manager: Spencer Carbajal PhD, Phone: [phone] Performed By: #### L 500.2500 #### [facility] [address] [facility] [place], [place], [id number] Urine Cultureon 10-12-2024 [facility] Enterococcus faecalis [place] Count >100,000 Enterococcus faecalis: REACTION Ampicillin Islt MARTHA <=2 Ciprofloxacin Islt MARTHA <=0.5 S Gentamicin Synergy Susc Islt SYN-S S levoFLOXacin Islt MARTHA 0.5 S Linezolid Islt MARTHA 2 S Nitrofurantoin Islt MARTHA <=16 S Streptomycin High Pot Susc Islt SYN-S S Tetracycline Islt MARTHA >=16 R Vancomycin Islt MARTHA 1 S Normal [facility] Comment on above: Performed By: #### L 500.2500 #### [facility] [address] [place], [place], [id number] Stool Occult Blood iFOBon STOB Positive Normal [facility] Comment on above: Performed By: #### M 100.7900 ####[facility] [id number] [place], [address] Stool gastrointestinal hemog lobin detection by immunologic methodOrdered By: Phu Espinoza on 10-11-2024 Lower GI hemoglobin IA Ql (Stl) Positive Abnormal [facility] Absolute lymphocyte countOrd ered By: Phu Espinoza on 10-10-2024 Lymphocytes Auto (Unsp spec) [#/Vol] 2.92 10*3/uL 0.83-4.51 [facility] Absolute neutrophil countOrd ered By: Phu [place] on 10-10-2024 Neutrophils (Bld) [#/Vol] 5.7 10*3/uL 2.0-7.7 [facility] Anion gap in Serum or Plasma Ordered By: Phu Espinoza on 10-10-2024 Anion gap [Moles/Vol] 17 mmol/L High 5-15 [facility] Automated lymphocyte count a s percentage of total leukocytesOrdered By: Phu Espinoza on 10-10-2024 Lymphocytes/100 WBC Auto (Unsp spec) 30.4 % 19-41 [facility] BUN/creatinine ratioOrdered By: Phu Espinoza on 10-10-2024 Urea nitrogen/Creatinine [Mass ratio] 20.1 mg/mg High 10-20 [facility] Basophil percentageOrdered B y: Phu Alexis on 10-10-2024 Basophils/100 WBC (Bld) 0.7 % 0-1 [facility] Bilirubin Test strip Ql (U)O rdered By: Phu Espinoza on 10-10-2024 Bilirubin Ql (U) 3 mg/dL High Negative [facility] Comment on above: COLOR OF URINE MAY A FFECT DIPSTICK RESULTS. Bilirubin, totalOrdered By: Phu Alexis on 10-10-2024 Bilirubin [Mass/Vol] 0.32 mg/dL 0.00-1.30 [facility] Blood cultureOrdered By: Phu Espinoza 10-10-2024 Bacteria identified Cx Nom (Bld) No growth in 5 days. [facility] C-reactive protein measureme nt by high sensitivity methodOrdered By: Phu Espinoza on 10-10-2024 C-reactive protein measurement by high sensitivity method 0.43 mg/L 0.00-3.00 [facility] Comment on above: Relative Risk for Fu ture Cardiovascular Event Low <1.00 Average 1.00 - 3.00 High >3.00Performed at: CB - [facility] [address] [id number] Director: Spencer Carbajal PhD, Phone: [phone] CBC W/Diff, Automatedon 09-24 Absolute Lymph 2.92 X10 3/uL Normal 0.83-4.51 [facility] Comment on above: Performed By: #### L 503.0106, L100.0100 #### [facility] [address] [place], [address] Absolute Neut 5.7 X10 3/uL Normal 2.0-7.7 [facility] Comment on above: Performed By: #### L 503.0106, L100.0100 #### [facility] [address] [place], [address] Basophils/100 WBC (Bld) 0.7 % Normal 0-1 [facility] Comment on above: Performed By: #### L 503.0106, L100.0100 #### [facility] [address] [place], [address] Eosinophils/100 WBC (Bld) 1.5 % Normal 0-5 [facility] Comment on above: Performed By: #### L 503.0106, L100.0100 #### [facility] [address] [place], [address] Erythrocyte distribution width (RBC) [Ratio] 15.6 % High 11.6-14.6 [facility] Comment on above: Performed By: #### L 503.0106, L100.0100 #### [facility] [address] [place], [address] Hematocrit (Bld) [Volume fraction] 35.9 % Low 37-47 [facility] Comment on above: Performed By: #### L 503.0106, L100.0100 #### [facility] [address] [place], [address] Hemoglobin (Bld) [Mass/Vol] 11.4 g/dL Low 12.0-15.0 [facility] Comment on above: Performed By: #### L 503.0106, L100.0100 #### [facility] [facility] [address] [place], [address] IG% 0.300 Normal 0.0-0.9 [facility] Comment on above: Result Comment: IG% - Immature Granulocytes (promyelocytes, myelocytes and metamyelocytes) > 1% indicates that a LEFT SHIFT is Present. Performed By: #### L 503.0106, L100.0100 #### [facility] [address] [place], [address] Lymphocytes/100 WBC (Bld) 30.4 % Normal 19-41 [facility] Comment on above: Performed By: #### L 503.0106, L100.0100 #### [facility] [address] [place], [address] MCH (RBC) [Entitic mass] 24.1 pg Low 27.0-32.0 [facility] Comment on above: Performed By: #### L 503.0106, L100.0100 #### [facility] [address] [place], [address] MCHC (RBC) [Mass/Vol] 31.8 g/dL Low 32-36 [facility] Comment on above: Performed By: #### L 503.0106, L100.0100 #### [facility] [address] [place], [address] MCV (RBC) [Entitic vol] 75.9 fL Low 81-99 [facility] Comment on above: Performed By: #### L 503.0106, L100.0100 #### [facility] [address] [place], [address] Monocytes/100 WBC (Bld) 7.9 % Normal 0-10 [facility] Comment on above: Performed By: #### L 503.0106, L100.0100 #### [facility] [address] [place], [address] Neutrophils/100 WBC (Bld) 59.2 % Normal 47-70 [facility] Comment on above: Performed By: #### L 503.0106, L100.0100 #### [facility] [address] [place], [address] Nucleated RBC (Bld) [#/Vol] 0 10*3/uL Normal 0-5 [facility] Comment on above: Performed By: #### L 503.0106, L100.0100 #### [facility] [address] [place], [address] Platelet mean volume (Bld) [Entitic vol] 10.4 fL Normal 6.2-12.0 [facility] Comment on above: Performed By: #### L 503.0106, L100.0100 #### [facility] [address] [place], [address] Platelets (Bld) [#/Vol] 277 10*3/uL Normal 150-450 [facility] Comment on above: Performed By: #### L 503.0106, L100.0100 #### [facility] [address] [place], [address] RBC (Bld) [#/Vol] 4.73 10*6/uL Normal 4.2-5.4 [facility] Comment on above: Performed By: #### L 503.0106, L100.0100 #### [facility] [address] [place], [address] RDW SD 42.1 fl Normal 35.1-43.9 [facility] Comment on above: Performed By: #### L 503.0106, L100.0100 #### [facility] [address] [place], [address] WBC (Bld) [#/Vol] 9.6 10*3/uL Normal 4.4-11.0 [facility] Comment on above: Performed By: #### L 503.0106, L100.0100 #### [facility] [address] [place], [address] Carbon dioxide, total [Moles /volume] in Central venous bloodOrdered By: Phu Espinoza on 10-10-2024 CO2 [Moles/Vol] 19.0 mmol/L Low 21.0-32.0 [facility] Chloride assayOrdered By: Sloan Espinoza on 10-10-2024 Chloride [Moles/Vol] 103 mmol/L 98-108 [facility] Comprehensive Metabolic Prof ilon 10-10-2024 Albumin [Mass/Vol] 4.5 g/dL Normal 3.5-5.0 [facility] Comment on above: Performed By: #### L 503.0106, L100.0100 #### [facility] [address] [place], [address] Albumin/Globulin [Mass ratio] 1.4 {ratio} Normal 0.9-2.4 [facility] Comment on above: Performed By: #### L 503.0106, L100.0100 #### [facility] [address] [place], [address] ALK PHOS 53 U/L Normal 35-104 [facility] Comment on above: Performed By: #### L 503.0106, L100.0100 #### [facility] [address] [place], [address] ALT [Catalytic activity/Vol] 52 U/L High <=34 [facility] Comment on above: Performed By: #### L 503.0106, L100.0100 #### [facility] [address] [place], [address] AST [Catalytic activity/Vol] 43 U/L High <=31 [facility] Comment on above: Performed By: #### L 503.0106, L100.0100 #### [facility] [address] [place], [address] Bilirubin [Mass/Vol] 0.32 mg/dL Normal 0.00-1.30 [facility] Comment on above: Performed By: #### L 503.0106, L100.0100 #### [facility] [address] [place], [address] BUN/CRE 20.1 RATIO High 10-20 [facility] Comment on above: Performed By: #### L 503.0106, L100.0100 #### [facility] [address] [place], [address] Calcium [Mass/Vol] 9.9 mg/dL Normal 7.6-11.0 [facility] Comment on above: Performed By: #### L 503.0106, L100.0100 #### [facility] [address] [place], [address] Chloride [Moles/Vol] 103 mmol/L Normal 98-108 [facility] Comment on above: Performed By: #### L 503.0106, L100.0100 #### [facility] [address] [place], [address] CO2 [Moles/Vol] 19.0 mmol/L Low 21.0-32.0 [facility] Comment on above: Performed By: #### L 503.0106, L100.0100 #### [facility] [address] [place], [address] Creatinine [Mass/Vol] 1.25 mg/dL High 0.70-1.20 [facility] Comment on above: Performed By: #### L 503.0106, L100.0100 #### [facility] [address] [place], [address] GAP 17 High 5-15 [facility] Comment on above: Performed By: #### L 503.0106, L100.0100 #### [facility] [address] [place], [address] GFR/1.73 sq M.predicted among non-blacks MDRD (S/P/Bld) [Vol rate/Area] 51 mL/min/{1.73_m2} Low >60 [facility] Comment on above: Result Comment: mL/m in/1.73m2 CKD-EPI Creatinine Equation (2020) Performed By: #### L 503.0106, L100.0100 #### [facility] [address] [place], [address] Globulin (S) [Mass/Vol] 3.3 g/dL Normal 2.2-4.2 [facility] Comment on above: Performed By: #### L 503.0106, L100.0100 #### [facility] [address] [place], [address] Glucose [Mass/Vol] 99 mg/dL Normal 70-99 [facility] Comment on above: Performed By: #### L 503.0106, L100.0100 #### [facility] [address] [place], [address] Potassium [Moles/Vol] 4.3 mmol/L Normal 3.3-5.1 [facility] Comment on above: Performed By: #### L 503.0106, L100.0100 #### [facility] [address] [place], [address] Sodium [Moles/Vol] 139 mmol/L Normal 133-145 [facility] Comment on above: Performed By: #### L 503.0106, L100.0100 #### [facility] [address] [place], [place], [address] T PROT 7.7 g/dL Normal 5.9-8.4 [facility] Comment on above: Performed By: #### L 503.0106, L100.0100 #### [facility] [address] [place], [address] Urea nitrogen [Mass/Vol] 25 mg/dL High 4-19 [facility] Comment on above: Performed By: #### L 503.0106, L100.0100 #### [facility] [address] [place], [place], [address] Eosinophil percentageOrdered By: Phu Espinoza on 10-10-2024 Eosinophils/100 WBC (Bld) 1.5 % 0-5 [facility] Erythrocyte Sed Rateon 10-10 SED RATE 28 mm/hr Normal 0-30 [facility] Comment on above: Performed By: #### L 500.2500 #### [facility] [address] [place], [place], [address] Erythrocyte distribution wid th ratioOrdered By: Phu Snowok on 10-10-2024 Erythrocyte distribution width (RBC) [Ratio] 15.6 % High 11.6-14.6 [facility] Erythrocyte distribution wid th standard deviationOrdered By: Phu Snowok on 10-10-2024 Erythrocyte distribution width (RBC) [Ratio] 42.1 fl 35.1-43.9 [facility] Erythrocyte folate measureme nt with hematocritOrdered By: Phu Snowok on 10-10-2024 Hematocrit (Bld) [Volume fraction] 38.6 % 34.0-46.6 [facility] Erythrocyte sedimentation ra teOrdered By: Phu Espinoza on 10-10-2024 ESR (Bld) [Velocity] 28 mm/h 0-30 [facility] Ferritinon 10-10-2024 Ferritin [Mass/Vol] 23 ng/mL Normal 22-378 [facility] Comment on above: Performed By: #### L 503.0106, L100.0100 #### [facility] [address] [facility] [place], [place], [address] Glomerular filtration rate ( GFR) estimation/1.73 sq m using serum, plasma, or whole bOrdered By: Phu Espinoza on 10-10-2024 GFR/1.73 sq M.predicted among non-blacks MDRD (S/P/Bld) [Vol rate/Area] 51 mL/min/{1.73_m2} Low >60 [facility] Comment on above: mL/min/1.73m2 CKD-EP I Creatinine Equation (2020) HIVon 10-10-2024 HIV Non-Reactive Normal Nonreactive [facility] Comment on above: Result Comment: Non- Reactive Reactive Repeatedly reactive samples must be confirmed according to CDC recommended confirmatory algorithms. The subresults for either HIVAG or AHIV can be used as an aid in the selection of the confirmation algorithm for reactive samples. Send out specimens with Reactive results to [facility] for confirmation. Order the HIV antibody detection and differentiation: [id number] Performed By: #### L 503.0106, L100.0100 #### [facility] [address] [facility] [place], [place], [address] Hematocrit Auto (Bld) [Volum e fraction]Ordered By: Phu Espinoza on 10-10-2024 Hematocrit (Bld) [Volume fraction] 35.9 % Low 37-47 [facility] Hemoglobin measurementOrdere d By: Phu Espinoza on 10-10-2024 Hemoglobin (Bld) [Mass/Vol] 11.4 g/dL Low 12.0-15.0 [facility] Hyaline casts LM.LPF (Urine sed) [#/Area]Ordered By: Phu Espinoza on 10-10-2024 Hyaline casts (Urine sed) [#/Area] 5 /[LPF] 0-5 [facility] Immature granulocytes/100 WB C Auto (Bld)Ordered By: Phu Espinoza on 10-10-2024 Immature granulocytes/100 WBC (Bld) 0.300 % 0.0-0.9 [facility] Comment on above: IG% - Immature Granu locytes (promyelocytes, myelocytes and metamyelocytes) > 1% indicates that a LEFT SHIFT is Present. Iron measurement (mass/mass) Ordered By: Phu Espinoza on 10-10-2024 Iron (Unsp spec) [Mass/Mass] 29 ug/dL Low 50-170 [facility] Iron+Iron Binding Capacityon 10-10-2024 TIBC 462 ug/dL High 250-450 [facility] Comment on above: Performed By: #### L 503.0106, L100.0100 #### [facility] [address] [place], [address] Ketones Test strip Ql (U)Ord ered By: Phu Espinoza on 10-10-2024 Ketones Ql (U) 5 mg/dl High Negative [facility] Laboratory - Chemistry and C hemistry - challengeOrdered By: Phu Espinoza on 10-10-2024 AST [Catalytic activity/Vol] 43 U/L High <32 [facility] MCV (mean corpuscular volume ) determinationOrdered By: Phu Espinoza on 10-10-2024 MCV (RBC) [Entitic vol] 75.9 fL Low 81-99 [facility] Mean corpuscular hemoglobin (MCH) determinationOrdered By: Phu Espinoza on 10-10-2024 MCH (RBC) [Entitic mass] 24.1 pg Low 27.0-32.0 [facility] Mean corpuscular hemoglobin concentration (MCHC) determinationOrdered By: Phu Espinoza 10-10-2024 MCHC (RBC) [Mass/Vol] 31.8 g/dL Low 32-36 [facility] Mean platelet volume determi nationOrdered By: Phu Espinoza on 10-10-2024 Platelet mean volume (Bld) [Entitic vol] 10.4 fL 6.2-12.0 [facility] Microscopic analysis of urin e for red blood cells (RBC)Ordered By: Phu Espinoza on 10-10-2024 Microscopic analysis of urine for red blood cells (RBC) 0-5 SEEN /hpf 0-5 [facility] Monocyte percentageOrdered B y: Phu Espinoza on 10-10-2024 Monocytes/100 WBC (Bld) 7.9 % 0-10 [facility] Mucus LM Ql (Urine sed)Order ed By: Phu Espinoza on 10-10-2024 Mucus Ql (Urine sed) 0 SEEN /hpf [facility] Neutrophil percentageOrdered By: Phu Espinoza on 10-10-2024 Neutrophils/100 WBC (Bld) 59.2 % 47-70 [facility] Nitrite Test strip Ql (U)Ord ered By: Phu Espinoza on 10-10-2024 Nitrite Ql (U) Negative Negative [facility] No Panel InformationOrdered By: Phu Espinoza on 10-10-2024 HIV (1&2) Antibody Non-Reactive Nonreactive [facility] Comment on above: Non-ReactiveReactive Repeatedly reactive samples must be confirmed according to CDC recommended confirmatory algorithms. The subresults for either HIVAG or AHIV can be used as an aid in the selection of the confirmation algorithm for reactive samples.Send out specimens with Reactive results to [facility] for confirmation.Order the HIV antibody detection and differentiation: #[id number] Unsaturated Iron Binding Capacity 433 ug/dL High 228-428 [facility] 43 U/L High <32 [facility] 433 ug/dL High 228-428 [facility] Non-Reactive Nonreactive [facility] Nucleated red blood cell per centageOrdered By: Phu Espinoza on 10-10-2024 Nucleated RBC/100 WBC (Bld) [Ratio] 0 % 0-5 [facility] Platelet countOrdered By: Sloan Espinoza on 10-10-2024 Platelets (Bld) [#/Vol] 277 10*3/uL 150-450 [facility] Potassium measurement (mass/ volume)Ordered By: Phu Espinoza on 10-10-2024 Potassium (Unsp spec) [Mass/Vol] 4.3 mmol/L 3.3-5.1 [facility] Protein Test strip Ql (U)Ord ered By: Phu Espinoza on 10-10-2024 Protein Ql (U) 30 mg/dl High Negative [facility] Qualitative QuantiFERON-TB g old in tube testOrdered By: Phu Espinoza on 10-10-2024 M. tuberculosis tuberculin stim IFN-g Ql (Bld) 0.05 IU/mL . [facility] RBC Auto (Bld) [#/Vol]Ordere d By: Phu Espinoza on 10-10-2024 RBC (Bld) [#/Vol] 4.73 10*6/uL 4.2-5.4 [facility] Serum creatinine measurement (mass/volume)Ordered By: Phu Espinoza on 10-10-2024 Creatinine [Mass/Vol] 1.25 mg/dL High 0.70-1.20 [facility] Serum globulin measurementOr dered By: Phu Espinoza 10-10-2024 Globulin (S) [Mass/Vol] 3.3 g/dL 2.2-4.2 [facility] Serum glucose measurement (m ass/volume)Ordered By: Phu Espinoza 10-10-2024 Glucose [Mass/Vol] 99 mg/dL 70-99 [facility] Serum or plasma alanine tobar otransferase (ALT) measurementOrdered By: Phu Espinoza 10-10-2024 ALT [Catalytic activity/Vol] 52 U/L High <35 [facility] Serum or plasma albumin thiago urement (mass/volume)Ordered By: Phu Espinoza 10-10-2024 Albumin [Mass/Vol] 4.5 g/dL 3.5-5.0 [facility] Serum or plasma albumin/glob ulin mass ratioOrdered By: Puh Espinoza 10-10-2024 Albumin/Globulin [Mass ratio] 1.4 {ratio} 0.9-2.4 [facility] Serum or plasma alkaline meg sphatase measurementOrdered By: Phu Espinoza 10-10-2024 ALP [Catalytic activity/Vol] 53 U/L 35-104 [facility] Serum or plasma calcium thiago urement (mass/volume)Ordered By: Phu Espinoza 10-10-2024 Calcium [Mass/Vol] 9.9 mg/dL 7.6-11.0 [facility] Serum or plasma ferritin lizette surement (mass/volume)Ordered By: Phu Espinoza 10-10-2024 Ferritin [Mass/Vol] 23 ng/mL 22-378 [facility] Serum or plasma iron saturat ion measurement (mass fraction)Ordered By: Phu Espinoza 10-10-2024 Iron saturation [Mass fraction] 6.0 % Low 13-59 [facility] Comment on above: Previous reported re sult: 6.0 %Edited by: KIERA on 10/10/24:1929 Serum or plasma urea nitroge n measurement (mass/volume)Ordered By: Phu Espinoza on 10-10-2024 Urea nitrogen [Mass/Vol] 25 mg/dL High 4-19 [facility] Sodium levelOrdered By: Phu Espinoza on 10-10-2024 Sodium [Moles/Vol] 139 mmol/L 133-145 [facility] Squamous epithelial cells de tection in urine sediment by light microscopyOrdered By: Phu Espinoza on 10-10-2024 Epithelial cells.squamous LM Ql (Urine sed) 10-25 SEEN /hpf 5-10 [facility] TSH DL <= 0.005 mIU/L QnOrde red By: Phu Espinoza on 10-10-2024 TSH Qn 0.167 uIU/mL Low 0.300-4.200 [facility] Thyroid Stim Hormone (TSH)on 10-10-2024 TSH 0.167 uIU/mL Low 0.300-4.200 [facility] Comment on above: Performed By: #### L 503.0106, L100.0100 #### [facility] Laboratory [address] [place], [address] Total proteinOrdered By: hPu Espinoza on 10-10-2024 Protein [Mass/Vol] 7.7 g/dL 5.9-8.4 [facility] Urinalysis, Completeon 10-10 CAST,HYALINE 5-10 SEEN Normal 0-5 [facility] Comment on above: Order Comment: Urine , Random Performed By: #### L 503.0106, L100.0100 #### [facility] [address] [place], [address] BACTERIA RARE Normal None Seen [facility] Comment on above: Order Comment: Urine , Random Performed By: #### L 503.0106, L100.0100 #### [facility] [address] [place], [address] EPI,SQUAMOUS 10-25 SEEN Normal 5-10 [facility] Comment on above: Order Comment: Urine , Random Performed By: #### L 503.0106, L100.0100 #### [facility] [address] [place], [address] RBC 0-5 SEEN Normal 0-5 [facility] Comment on above: Order Comment: Urine , Random Performed By: #### L 503.0106, L100.0100 #### [facility] [address] [place], [address] WBC 5-10 SEEN Normal 0-5 [facility] Comment on above: Order Comment: Urine , Random Performed By: #### L 503.0106, L100.0100 #### [facility] [address] [place], [address] Mucus Ql (Urine sed) 0 SEEN Normal [facility] Comment on above: Order Comment: Urine , Random Performed By: #### L 503.0106, L100.0100 #### [facility] [address] [place], [address] Urine clarityOrdered By: Phu Espinoza on 10-10-2024 Clarity (U) Sl. Cloudy Clear [facility] Urine color determinationOrd ered By: Phu Espinoza on 10-10-2024 Color (U) Yellow Yellow [facility] Urine cultureOrdered By: Phu Espinoza 10-10-2024 Bacteria identified Cx Nom (U) Enterococcus faecalis Abnormal [facility] Urine glucose detectionOrder ed By: Phu Espinoza on 10-10-2024 Glucose Ql (U) 1000 mg/dl High Normal [facility] Urine leukocyte esterase det ection by dipstickOrdered By: Phu Espinoza 10-10-2024 Leukocyte esterase Test strip Ql (U) 100 /ul High Negative [facility] Urine pHOrdered By: Phu Espinoza on 10-10-2024 pH (U) 6.0 [pH] 5.0 - 8.0 [facility] Urine sediment bacteria coun t by microscopy (number/high power field)Ordered By: Phu Espinoza on 10-10-2024 Bacteria LM.HPF (Urine sed) [#/Area] RARE /hpf None Seen [facility] Urine specific gravity measu rementOrdered By: Phu Espinoza on 10-10-2024 Specific gravity (U) [Rel density] 1.015 1.002-1.030 [facility] Urine urobilinogen measureme ntOrdered By: Phu Espinoza on 10-10-2024 Urobilinogen Ql (U) Normal mg/dl Normal [facility] Vitamin B12on 10-10-2024 Cobalamin (Vitamin B12) [Mass/Vol] 879 pg/mL Normal 180-914 [facility] Comment on above: Performed By: #### L 503.0106, L100.0100 #### [facility] [address] [place], [place], [address] Vitamin B12 ser/plasOrdered By: Phu Espinoza on 10-10-2024 Cobalamin (Vitamin B12) [Mass/Vol] 879 pg/mL 180-914 [facility] White blood cell (WBC) count Ordered By: Phu Espinoza on 10-10-2024 WBC (Bld) [#/Vol] 9.6 10*3/uL 4.4-11.0 [facility] White blood cell countOrdere d By: Phu Alexis on 10-10-2024 White blood cell count 5-10 SEEN /hpf 0-5 [facility] 12 Lead EKGon 10-07-2024 12 Lead EKG [facility] [address] [place] [address] 12 Lead EKG 10/07/24 0445 MR#: [id number] Acct: [id number] Name: ARLEN NGUYEN Rep #: [id number] : 1970 54 From: Lois Das MD Attending Dr: Dr. Octavio Archuleta MD Status: DIS NATALIE Ordering Dr: Junior Dunn DO Date: 10/07/24 Location: [facility] Sex: F C Admitted: 10/05/24 Test Reason [...] IS UNCONFIRMED Confirmed by MD JONATHAN, LOIS ([id number]), sports editor MAXIMO FIELDS ([id number]) on 10/08/2024 10:56:09 AM Referred By: Confirmed By: LOIS DAS MD 10/08/24 1056 Date Lois Das MD CC: Dr. Junior Dunn DO; Dr. Octavio Archuleta MD; Dr. Phu Espinoza MD Signed Normal [facility] Absolute neutrophil countOrd ered By: Megan Jason on 10-07-2024 Absolute neutrophil count Not Reportable [facility] Anion gap in Serum or Plasma Ordered By: Megan White on 10-07-2024 Anion gap [Moles/Vol] 12 mmol/L - [facility] BUN/creatinine ratioOrdered By: on 10-07-2024 Urea nitrogen/Creatinine [Mass ratio] 22.1 mg/mg High 10- [facility] Basophil percentageOrdered B y: Megan Jason on 10-07-2024 Basophils/100 WBC (Bld) 0.6 % 0-1 [facility] Bedside Glucoseon 10-07-2024 FINGERSTICK GLU 134 mg/dL High 74-106 [facility] Comment on above: Result Comment: YESSENIA GEMENT OF PATIENT CARE PER NURSING PROTOCOL Performed By: #### L 500.2500 #### [facility] Laboratory [address] [place], [place], [id number] ([phone]) FINGERSTICK GLU 178 mg/dL High 74-106 [facility] [facility] Comment on above: Result Comment: YESSENIA GEMENT OF PATIENT CARE PER NURSING PROTOCOL Performed By: #### L 500.2500 #### [facility] [address] [place], [address] FINGERSTICK GLU 167 mg/dL High 74-106 [facility] Comment on above: Result Comment: YESSENIA SANCHEZ OF PATIENT CARE PER NURSING PROTOCOL Performed By: #### L 500.2500 #### [facility] [address] [place], [address] Bilirubin, totalOrdered By: Megan Gomez on 10-07-2024 Bilirubin [Mass/Vol] 0.29 mg/dL 0.00-1.30 [facility] Blood platelets count (numbe r/volume)Ordered By: Megan Gomez on 10-07-2024 Platelets (Bld) [#/Vol] 242 10*3/uL 150-450 [facility] CBC W/Diff, Automatedon 09-24-2024 Basophils/100 WBC (Bld) 0.6 % Normal 0-1 [facility] Comment on above: Performed By: #### L 500.2500 #### [facility] [address] [place], [address] Eosinophils/100 WBC (Bld) 2.1 % Normal 0-5 [facility] Comment on above: Performed By: #### L 500.2500 #### [facility] [address] [place], [address] Erythrocyte distribution width (RBC) [Ratio] 15.3 % High 11.6-14.6 [facility] Comment on above: Performed By: #### L 500.2500 #### [facility] [address] [place], [address] Hematocrit (Bld) [Volume fraction] 33.6 % Low 37-47 [facility] Comment on above: Performed By: #### L 500.2500 #### [facility] [address] [place], [address] IG% 0.300 Normal 0.0-0.9 [facility] Comment on above: Result Comment: IG% - Immature Granulocytes (promyelocytes, myelocytes and metamyelocytes) > 1% indicates that a LEFT SHIFT is Present. Performed By: #### L 500.2500 #### [facility] [address] [place], [address] Lymphocytes/100 WBC (Bld) 37.9 % Normal 19-41 [facility] Comment on above: Performed By: #### L 500.2500 #### [facility] [address] [place], [address] MCH (RBC) [Entitic mass] 24.3 pg Low 27.0-32.0 [facility] Comment on above: Performed By: #### L 500.2500 #### [facility] [address] [place], [address] MCHC (RBC) [Mass/Vol] 31.3 g/dL Low 32-36 [facility] Comment on above: Performed By: #### L 500.2500 #### [facility] [address] [place], [address] MCV (RBC) [Entitic vol] 77.8 fL Low 81-99 [facility] Comment on above: Performed By: #### L 500.2500 #### [facility] [address] [place], [address] Monocytes/100 WBC (Bld) 10.8 % High 0-10 [facility] Comment on above: Performed By: #### L 500.2500 #### [facility] [address] [place], [address] Neutrophils/100 WBC (Bld) 48.3 % Normal 47-70 [facility] Comment on above: Performed By: #### L 500.2500 #### [facility] [address] [place], [address] Platelet mean volume (Bld) [Entitic vol] 10.6 fL Normal 6.2-12.0 [facility] Comment on above: Performed By: #### L 500.2500 #### [facility] [address] [place], [address] Platelets (Bld) [#/Vol] 242 10*3/uL Normal 150-450 [facility] Comment on above: Performed By: #### L 500.2500 #### [facility] [address] [place], [address] RDW SD 43.3 fl Normal 35.1-43.9 [facility] Comment on above: Performed By: #### L 500.2500 #### [facility] [address] [place], [address] Hemoglobin (Bld) [Mass/Vol] 10.5 g/dL Low 12.0-15.0 [facility] Comment on above: Performed By: #### L 500.2500 #### [facility] [address] [place], [address] RBC (Bld) [#/Vol] 4.32 10*6/uL Normal 4.2-5.4 [facility] Comment on above: Performed By: #### L 500.2500 #### [facility] [address] [place], [address] WBC (Bld) [#/Vol] 6.6 10*3/uL Normal 4.4-11.0 [facility] Comment on above: Performed By: #### L 500.2500 #### [facility] [address] [place], [address] Calculated very low density lipoprotein (VLDL) cholesterol measurementOrdered By: Junior Dunn on 10-07-2024 Calculated very low density lipoprotein (VLDL) cholesterol measurement 39 mg/dL 5-40 [facility] Carbon dioxide, total [Moles /volume] in Central venous bloodOrdered By: Megan Gomez on 10-07-2024 CO2 [Moles/Vol] 23.7 mmol/L 21.0-32.0 [facility] Cardiovascular stress test r eportOrdered By: Josh Gibbs on 10-07-2024 Study report [facility] Services [address] [place] [address] MR#: [id number] Acct: [id number] Name: ARLEN NGUYEN Rep #: [id number] : 1970 54 From: Josh Gibbs MD [...] ~ Date Dictated: 10/07/241419 Date Transcribed: 10/07/241419 Labor Contractor: [place] Signed [facility] Work Phone: Chloride assayOrdered By: Kateryna Gomez on 10-07-2024 Chloride [Moles/Vol] 104 mmol/L 98-108 [facility] Comprehensive Metabolic Prof ilon 10-07-2024 Albumin [Mass/Vol] 4.1 g/dL Normal 3.5-5.0 [facility] Comment on above: Performed By: #### L 501.080 #### [facility] [address] [place], [address] Albumin/Globulin [Mass ratio] 1.4 {ratio} Normal 0.9-2.4 [facility] Comment on above: Performed By: #### L 501.080 #### [facility] [address] [place], [address] ALK PHOS 46 U/L Normal 35-104 [facility] Comment on above: Performed By: #### L 501.080 #### [facility] [address] [place], [address] ALT [Catalytic activity/Vol] 58 U/L High <=34 [facility] Comment on above: Performed By: #### L 501.080 #### [facility] [address] [place], [address] AST [Catalytic activity/Vol] 56 U/L High <=31 [facility] Comment on above: Performed By: #### L 501.080 #### [facility] [address] [place], [address] Bilirubin [Mass/Vol] 0.29 mg/dL Normal 0.00-1.30 [facility] Comment on above: Performed By: #### L 501.080 #### [facility] [address] [place], [address] BUN/CRE 22.1 RATIO High 10-20 [facility] Comment on above: Performed By: #### L 501.080 #### [facility] [address] [place], [address] Calcium [Mass/Vol] 9.9 mg/dL Normal 7.6-11.0 [facility] Comment on above: Performed By: #### L 501.080 #### [facility] [address] [place], [address] Chloride [Moles/Vol] 104 mmol/L Normal 98-108 [facility] Comment on above: Performed By: #### L 501.080 #### [facility] [address] [place], [address] CO2 [Moles/Vol] 23.7 mmol/L Normal 21.0-32.0 [facility] Comment on above: Performed By: #### L 501.080 #### [facility] [address] [place], [address] Creatinine [Mass/Vol] 1.08 mg/dL Normal 0.70-1.20 [facility] Comment on above: Performed By: #### L 501.080 #### [facility] [address] [place], [address] ECRCL 83.97 ml/min Normal 50-250 [facility] Comment on above: Performed By: #### L 501.080 #### [facility] [address] [place], [address] GAP 12 Normal 5-15 [facility] Comment on above: Performed By: #### L 501.080 #### [facility] [address] [place], [address] GFR/1.73 sq M.predicted among non-blacks MDRD (S/P/Bld) [Vol rate/Area] 61 mL/min/{1.73_m2} Normal >60 [facility] Comment on above: Result Comment: mL/m in/1.73m2 CKD-EPI Creatinine Equation (2020) Performed By: #### L 501.080 #### [facility] [address] [place], [address] Globulin (S) [Mass/Vol] 2.9 g/dL Normal 2.2-4.2 [facility] Comment on above: Performed By: #### L 501.080 #### [facility] [address] [place], [address] Glucose [Mass/Vol] 150 mg/dL High 70-99 [facility] Comment on above: Performed By: #### L 501.080 #### [facility] [address] [place], [address] Potassium [Moles/Vol] 4.3 mmol/L Normal 3.3-5.1 [facility] Comment on above: Performed By: #### L 501.080 #### [facility] [address] [place], [address] Sodium [Moles/Vol] 140 mmol/L Normal 133-145 [facility] Comment on above: Performed By: #### L 501.080 #### [facility] [address] [place], [address] T PROT 7.0 g/dL Normal 5.9-8.4 [facility] Comment on above: Performed By: #### L 501.080 #### [facility] [address] [place], [address] Urea nitrogen [Mass/Vol] 24 mg/dL High 4-19 [facility] Comment on above: Performed By: #### L 501.080 #### [facility] [address] [place], [address] Echocardiogram study reportO rdered By: Ronda Schaefer on 10-07-2024 Study report [facility] [place] [address] Echo Complete W/ Contrast 10/07/24 1125 MR#: [id number] Acct: [id number] Name: ARLEN NGUYEN Rep #:[id number] : 1970 54 From: Ronda Schaefer MD Attending Dr: Dr. Octavio Archuleta MD Status: ADM NATALIE Ordering Dr: Junior Dunn DO Da te: 10/05/24 Location: [facility] Sex: F C Admitted: 10/05/24 Reason For [...] ~ Date Dictated: 10/07/24 1125 Date Transcribed: 10/07/241421 Labor Contractor: Signed [facility] Work Phone: Electrocardiogram reportOrde red By: oJsh Gibbs on 10-07-2024 EKG study [facility] Cardiovascular Services [address] [place] [address] 12 Lead EKG 10/05/24 1923 MR#: [id number] Acct: [id number] Name: ARLEN NGUYEN Rep #:[id number] : 1970 54 From: Josh Gibbs MD Attending Dr: Dr. Octavio Archuleta MD Status: ADM NATALIE Ordering Dr: Anton Thacker DO Date: 03/20 Location: [facility] Sex: F C Admitted: 10/05/24 Test Reason [...] Borderline ECG Confirmed by JOSH GIBBS MD ([id number]), sports editor MAXIMO FIELDS ([id number]) on 10/07/2024 11:35:42 AM Referred By: RU Confirmed By: JOSH GIBBS MD 10/07/24 1135 Date _ Josh Gibbs MD CC: Dr. Octavio Archuleta MD; Dr. Anton Thacker DO; Dr. Phu Espinoza MD ~ Signed [facility] Work Phone: [phone] Eosinophil %Ordered By: Tommy Gomez on 10-07-2024 Eosinophils/100 WBC (Bld) 2.1 % 0-5 [facility] Erythrocyte distribution wid th ratioOrdered By: Megan Gomez on 10-07-2024 Erythrocyte distribution width (RBC) [Ratio] 15.3 % High 11.6-14.6 [facility] Glomerular filtration rate ( GFR) estimation/1.73 sq m using serum, plasma, or whole bOrdered By: Megan Gomez on 10-07-2024 GFR/1.73 sq M.predicted among non-blacks MDRD (S/P/Bld) [Vol rate/Area] 61 mL/min/{1.73_m2} >60 [facility] Comment on above: mL/min/1.73m2 CKD-EP I Creatinine Equation (2020) Glucose measurement at [facility] deOrdered By: Octavio Archuleta on 10-07-2024 Glucose [Mass/Vol] 134 mg/dL High 74-106 [facility] Comment on above: MANAGEMENT OF PATIEN T CARE PER NURSING PROTOCOL Hematocrit Auto (Bld) [Volum e fraction]Ordered By: Megan Gomez on 10-07-2024 Hematocrit (Bld) [Volume fraction] 33.6 % Low 37-47 [facility] Hemoglobin measurementOrdere d By: Megan Gomez on 10-07-2024 Hemoglobin (Bld) [Mass/Vol] 10.5 g/dL Low 12.0-15.0 [facility] Immature granulocyte percent ageOrdered By: Megan Gomez on 10-07-2024 Immature granulocytes/100 WBC (Bld) 0.300 % 0.0-0.9 [facility] Comment on above: IG% - Immature Granu locytes (promyelocytes, myelocytes and metamyelocytes) > 1% indicates that a LEFT SHIFT is Present. LDL calc ser/plasOrdered By: Junior Dunn on 10-07-2024 Cholesterol in LDL [Mass/Vol] 44 mg/dL [facility] Comment on above: Lpnxhifbsq=415-855 m g/dL & Higher Duhm=621 mg/dL or greater Laboratory - Chemistry and C hemistry - challengeOrdered By: Megan Gomez on 10-07-2024 AST [Catalytic activity/Vol] 56 U/L High <32 [facility] Lipid Profileon 10-07-2024 CHOL:HDL 3.77 Normal [facility] Comment on above: Performed By: #### L 501.080 #### [facility] Laboratory [address] [place], [address] Cholesterol [Mass/Vol] 113 mg/dL Normal <=200 [facility] Comment on above: Result Comment: Chol esterol level, Desirable <200 mg/dL Borderline high cholesterol 200-239 mg/dL High cholesterol >=240 mg/dL Recommendations of the NCEP Adult Treatment Panel for the following risk-cutoff thresholds for the [place] population. Performed By: #### L 501.080 #### [facility] Laboratory [address] [place], [address] Cholesterol in HDL [Mass/Vol] 30 mg/dL Low [facility] Comment on above: Result Comment: Skye onal Cholesterol Education Program (NCEP) guidelines: <40 mg/dL: Low HDL-cholesterol (major risk factor for CHD) >= 60 mg/dL: High HDL-cholesterol (negative risk factor for CHD) HDL-cholesterol is affected by a number of factors, e.g. smoking, exercise, hormones, sex and age. Performed By: #### L 501.080 #### [facility] [address] [place], [address] Cholesterol in LDL [Mass/Vol] 44 mg/dL Normal [facility] Comment on above: Result Comment: Bord gblxtg=393-014 mg/dL Higher Qusm=932 mg/dL or greater Performed By: #### L 501.080 #### [facility] [address] [place], [address] Cholesterol in VLDL [Mass/Vol] 39 mg/dL Normal 5-40 [facility] Comment on above: Performed By: #### L 501.080 #### [facility] [address] [facility] [address] Triglyceride [Mass/Vol] 196 mg/dL Normal [facility] Comment on above: Result Comment: The drugs N-Acetylcysteine and Metamizole may falsely depress this assay. Normal range: <150 mg/dL Borderline High: 150-199 mg/dL High: 200-499 mg/dL Very High: >500 mg/dL Performed By: #### L 501.080 #### [facility] [address] [facility] [id number] Lymphocyte %Ordered By: Tommy Gomez on 10-07-2024 Lymphocytes/100 WBC (Bld) 37.9 % 19-41 [facility] MCV (mean corpuscular volume ) determinationOrdered By: Megan Gomez on 10-07-2024 MCV (RBC) [Entitic vol] 77.8 fL Low 81-99 [facility] Magnesiumon 10-07-2024 Magnesium [Mass/Vol] 1.9 mg/dL Normal 1.5-2.2 [facility] Comment on above: Performed By: #### L 501.080 #### [facility] [address] [facility] [address] Magnesium measurement (mass/ volume)Ordered By: Megan Gomez on 10-07-2024 Magnesium (Unsp spec) [Mass/Vol] 1.9 mg/dL 1.5-2.2 [facility] Mean corpuscular hemoglobin (MCH) determinationOrdered By: Megan Gomez on 10-07-2024 MCH (RBC) [Entitic mass] 24.3 pg Low 27.0-32.0 [facility] Mean corpuscular hemoglobin concentration (MCHC) determinationOrdered By: Megan Gomez on 10-07-2024 MCHC (RBC) [Mass/Vol] 31.3 g/dL Low 32-36 [facility] Mean platelet volume determi nationOrdered By: Megan Gomez on 10-07-2024 Platelet mean volume (Bld) [Entitic vol] 10.6 fL 6.2-12.0 [facility] Monocyte percentageOrdered B y: Megan Gomez on 10-07-2024 Monocytes/100 WBC (Bld) 10.8 % High 0-10 [facility] Neutrophil %Ordered By: Tommy Gomez on 10-07-2024 Neutrophils/100 WBC (Bld) 48.3 % 47-70 [facility] No Panel InformationOrdered By: Megan Gomez on 10-07-2024 56 U/L High <32 [facility] Potassium measurement (mass/ volume)Ordered By: Megan Gomez on 10-07-2024 Potassium (Unsp spec) [Mass/Vol] 4.3 mmol/L 3.3-5.1 [facility] RBC Auto (Bld) [#/Vol]Ordere d By: Megan Gomez on 10-07-2024 RBC (Bld) [#/Vol] 4.32 10*6/uL 4.2-5.4 [facility] RDWOrdered By: Megan Gomez on 10-07-2024 RDW 43.3 fl 35.1-43.9 [facility] Screening total cholesterol/ high density lipoprotein (HDL) cholesterol ratioOrdered By: Junior Dunn on 10-07-2024 Cholesterol.total/Choles terol in HDL [Mass ratio] 3.77 {ratio} [facility] Serum creatinine measurement (mass/volume)Ordered By: Megan Gomez on 10-07-2024 Creatinine [Mass/Vol] 1.08 mg/dL 0.70-1.20 [facility] Serum globulin measurementOr dered By: Megan Gomez on 10-07-2024 Globulin (S) [Mass/Vol] 2.9 g/dL 2.2-4.2 [facility] Serum glucose measurement (m ass/volume)Ordered By: Megan Gomez on 10-07-2024 Glucose [Mass/Vol] 150 mg/dL High 70-99 [facility] Serum or plasma alanine tobar otransferase (ALT) measurementOrdered By: Megan Gomez on 10-07-2024 ALT [Catalytic activity/Vol] 58 U/L High <35 [facility] Serum or plasma albumin thiago urement (mass/volume)Ordered By: Megan Gomez on 10-07-2024 Albumin [Mass/Vol] 4.1 g/dL 3.5-5.0 [facility] Serum or plasma albumin/glob ulin mass ratioOrdered By: Megan Gomez on 10-07-2024 Albumin/Globulin [Mass ratio] 1.4 {ratio} 0.9-2.4 [facility] Serum or plasma alkaline meg sphatase measurementOrdered By: Megan Gomez on 10-07-2024 ALP [Catalytic activity/Vol] 46 U/L 35-104 [facility] Serum or plasma calcium thiago urement (mass/volume)Ordered By: Megan Gomez on 10-07-2024 Calcium [Mass/Vol] 9.9 mg/dL 7.6-11.0 [facility] Serum or plasma cholesterol in HDL measurement (mass/volume)Ordered By: Junior Dunn on 10-07-2024 Cholesterol in HDL [Mass/Vol] 30 mg/dL Low >40 [facility] Comment on above: National Cholesterol Education Program (NCEP) guidelines:<40 mg/dL: Low HDL-cholesterol (major risk factor for CHD)>= 60 mg/dL: High HDL-cholesterol (negative risk factor for CHD)HDL-cholesterol is affected by a number of factors, e.g. smoking, exercise, hormones, sex and age. Serum or plasma cholesterol measurement (mass/volume)Ordered By: Junior Dunn on 10-07-2024 Cholesterol [Mass/Vol] 113 mg/dL <201 [facility] Comment on above: Cholesterol level, D esirable <200 mg/dLBorderline high cholesterol 200-239 mg/dLHigh cholesterol >=240 mg/dLRecommendations of the NCEP Adult Treatment Panel for the following risk-cutoff thresholds for the [place] population. Serum or plasma urea nitroge n measurement (mass/volume)Ordered By: Megan Gomez on 10-07-2024 Urea nitrogen [Mass/Vol] 24 mg/dL High 4-19 [facility] Sodium levelOrdered By: Tommy Gomez on 10-07-2024 Sodium [Moles/Vol] 140 mmol/L 133-145 [facility] Stress Reporton 10-07-2024 Stress Report [facility] Services [address] [place] [address] MR#: [id number] Acct: [id number] Name: ARLEN NGUYEN Rep #: [id number] : 1970 54 From: Josh Gibbs MD [...] test. Preserved ejection fraction. 10/07/24 1421 Date Josh Gibbs MD CC: Dr. Junior Dunn DO; Dr. Megan Gomez MD; Dr. Octavio Archuleta MD; Dr. Anton Thacker DO; Dr. Phu Espinoza MD Date Dictated: 10/07/241419 Date Transcribed: 07/14/25 1420 Labor Contractor: [place] Signed Normal [facility] Total proteinOrdered By: Ana M Gomez on 10-07-2024 Protein [Mass/Vol] 7.0 g/dL 5.9-8.4 [facility] Triglycerides measurementOrd ered By: Junior Dunn on 10-07-2024 Triglyceride [Mass/Vol] 196 mg/dL <199 [facility] Comment on above: The drugs N-Acetylcy steine and Metamizole may falsely depress this assay. Normal range: <150 mg/dLBorderline High: 150-199 mg/dLHigh: 200-499 mg/dLVery High: >500 mg/dL White blood cell (WBC) count Ordered By: Megan Gomez on 10-07-2024 WBC (Bld) [#/Vol] 6.6 10*3/uL 4.4-11.0 [facility] 12 Lead EKGon 10-06-2024 12 Lead EKG [facility] Cardiovascular Services [address] [place] [address] 12 Lead EKG 10/05/24 2323 MR#: [id number] Acct: [id number] Name: ARLEN NGUYEN Rep #: [id number] : 1970 54 From: Lois Das MD Attending Dr: Dr. Octavio Archuleta MD Status: DIS NATALIE Ordering Dr: Junior Dunn DO Date: 10/06/24 Location: [facility] Sex: F C Admitted: 10/05/24 Test Reason [...] IS UNCONFIRMED Confirmed by MD JONATHAN, LOIS ([id number]), sports editor MAXIMO FIELDS ([id number]) on 10/08/2024 10:58:51 AM Referred By: Confirmed By: LOIS DAS MD 10/08/24 1058 Date Lois Das MD CC: Dr. Junior Dunn DO; Dr. Octavio Archuleta MD; Dr. Phu Espinoza MD Signed Normal [facility] Basic Metabolic Profile (BMP )on 10-06-2024 BUN/CRE 19.0 RATIO Normal 10-20 [facility] Comment on above: Order Comment: OK TO ADD TO MORNING RUN PER KAMLA RNadd to this AM labs if able. Performed By: #### L 500.2500 ####[facility] [address] [place], [address] Calcium [Mass/Vol] 9.1 mg/dL Normal 7.6-11.0 [facility] Comment on above: Order Comment: OK TO ADD TO MORNING RUN PER KAMLA RNadd to this AM labs if able. Performed By: #### L 500.2500 ####[facility] [address] [place], [address] Chloride [Moles/Vol] 104 mmol/L Normal 98-108 [facility] Comment on above: Order Comment: OK TO ADD TO MORNING RUN PER KAMLA RNadd to this AM labs if able. Performed By: #### L 500.2500 ####[facility] [address] [place], [address] CO2 [Moles/Vol] 22.7 mmol/L Normal 21.0-32.0 [facility] Comment on above: Order Comment: OK TO ADD TO MORNING RUN PER KAMLA RNadd to this AM labs if able. Performed By: #### L 500.2500 ####[facility] [address] [place], [address] Creatinine [Mass/Vol] 1.24 mg/dL High 0.70-1.20 [facility] Comment on above: Order Comment: OK TO ADD TO MORNING RUN PER KAMLA RNadd to this AM labs if able. Performed By: #### L 500.2500 ####[facility] [address] [place], [address] ECRCL 73.13 ml/min Normal 50-250 [facility] Comment on above: Order Comment: OK TO ADD TO MORNING RUN PER KAMLA RNadd to this AM labs if able. Performed By: #### L 500.2500 ####[facility] [address] [place], [address] GAP 12 Normal 5-15 [facility] Comment on above: Order Comment: OK TO ADD TO MORNING RUN PER KAMLA RNadd to this AM labs if able. Performed By: #### L 500.2500 ####[facility] [address] [place], [address] GFR/1.73 sq M.predicted among non-blacks MDRD (S/P/Bld) [Vol rate/Area] 52 mL/min/{1.73_m2} Low >60 [facility] Comment on above: Order Comment: OK TO ADD TO MORNING RUN PER KAMLA RNadd to this AM labs if able. Result Comment: mL/m in/1.73m2 CKD-EPI Creatinine Equation (2020) Performed By: #### L 500.2500 ####[facility] [address] [place], [address] Glucose [Mass/Vol] 135 mg/dL High 70-99 [facility] Comment on above: Order Comment: OK TO ADD TO MORNING RUN PER KAMLA RNadd to this AM labs if able. Performed By: #### L 500.2500 ####[facility] [address] [place], [address] Potassium [Moles/Vol] 4.6 mmol/L Normal 3.3-5.1 [facility] Comment on above: Order Comment: OK TO ADD TO MORNING RUN PER KAMLA RNadd to this AM labs if able. Performed By: #### L 500.2500 ####[facility] [address] [place], [address] Sodium [Moles/Vol] 139 mmol/L Normal 133-145 [facility] Comment on above: Order Comment: OK TO ADD TO MORNING RUN PER KAMLA RNadd to this AM labs if able. Performed By: #### L 500.2500 ####[facility] [address] [place], [address] Urea nitrogen [Mass/Vol] 24 mg/dL High 4-19 [facility] Comment on above: Order Comment: OK TO ADD TO MORNING RUN PER KAMLA RNadd to this AM labs if able. Performed By: #### L 500.2500 ####[facility] [address] [place], [address] Bedside Glucoseon 10-06-2024 FINGERSTICK GLU 180 mg/dL High 74-106 [facility] Comment on above: Result Comment: YESSENIA GEMENT OF PATIENT CARE PER NURSING PROTOCOL Performed By: #### L 501.080 #### [facility] Laboratory [address] [place], [address] FINGERSTICK GLU 154 mg/dL High 74-106 [facility] Comment on above: Result Comment: YESSENIA GEMENT OF PATIENT CARE PER NURSING PROTOCOL Performed By: #### L 501.080 #### [facility] Laboratory [address] [place], [address] FINGERSTICK GLU 173 mg/dL High 74-106 [facility] Comment on above: Result Comment: YESSENIA GEMENT OF PATIENT CARE PER NURSING PROTOCOL Performed By: #### L 501.080 #### [facility] Laboratory [address] [place], [address] FINGERSTICK GLU 125 mg/dL High 74-106 [facility] Comment on above: Result Comment: YESSENIA GEMENT OF PATIENT CARE PER NURSING PROTOCOL Performed By: #### L 501.080 #### [facility] Laboratory [address] [place], [address] CBC-Complete Blood Cnt No Di ffon 10-06-2024 Erythrocyte distribution width (RBC) [Ratio] 15.7 % High 11.6-14.6 [facility] Comment on above: Performed By: #### L 501.080 #### [facility] Laboratory [address] [place], [address] Hematocrit (Bld) [Volume fraction] 32.0 % Low 37-47 [facility] Comment on above: Performed By: #### L 501.080 #### [facility] Laboratory [address] [place], [address] Hemoglobin (Bld) [Mass/Vol] 10.1 g/dL Low 12.0-15.0 [facility] Comment on above: Performed By: #### L 501.080 #### [facility] Laboratory [address] [place], [address] MCH (RBC) [Entitic mass] 24.3 pg Low 27.0-32.0 [facility] Comment on above: Performed By: #### L 501.080 #### [facility] Laboratory [address] [place], [address] MCHC (RBC) [Mass/Vol] 31.6 g/dL Low 32-36 [facility] Comment on above: Performed By: #### L 501.080 #### [facility] Laboratory [address] [place], [address] MCV (RBC) [Entitic vol] 77.1 fL Low 81-99 [facility] Comment on above: Performed By: #### L 501.080 #### [facility] Laboratory [address] [place], [address] Platelet mean volume (Bld) [Entitic vol] 10.1 fL Normal 6.2-12.0 [facility] Comment on above: Performed By: #### L 501.080 #### [facility] Laboratory [address] [place], [address] Platelets (Bld) [#/Vol] 233 10*3/uL Normal 150-450 [facility] Comment on above: Performed By: #### L 501.080 #### [facility] Laboratory [address] [place], [address] RBC (Bld) [#/Vol] 4.15 10*6/uL Low 4.2-5.4 [facility] Comment on above: Performed By: #### L 501.080 #### [facility] Laboratory [address] [place], [address] RDW SD 43.8 fl Normal 35.1-43.9 [facility] Comment on above: Performed By: #### L 501.080 #### [facility] Laboratory [address] [place], [address] WBC (Bld) [#/Vol] 7.2 10*3/uL Normal 4.4-11.0 [facility] Comment on above: Performed By: #### L 501.080 #### [facility] Laboratory [address] [place], [address] L499.0043on 10-06-2024 Trop T High Sen 34 ng/L High <=14 [facility] Comment on above: Performed By: #### L 499.0043 ####[facility] [address] [place], [address] L501.4021on 10-06-2024 Trop T High Sen 24 ng/L High <=14 [facility] Comment on above: Order Comment: Comme nts: may add to ED labs Performed By: #### L 501.080 #### [facility] Laboratory [address] [place], [address] Magnesiumon 10-06-2024 Magnesium [Mass/Vol] 1.3 mg/dL Low 1.5-2.2 [facility] Comment on above: Order Comment: Comme nts: may add to ED labs Performed By: #### L 501.080 #### [facility] Laboratory [address] [facility] [place], [address] Troponin T.cardiac [Mass/vol ume] in Serum or Plasma by High sensitivity methodOrdered By: Megan Gomez on 10-06-2024 Troponin T.cardiac High sensitivity method [Mass/Vol] 24 ng/L High <14 [facility] Comment on above: Delta: 21 on 12 Lead EKGon 10-05-2024 12 Lead EKG [facility] Cardiovascular Services [address] [place] [address] 12 Lead EKG 10/06/24 2354 MR#: [id number] Acct: [id number] Name: ARLEN NGUYEN Rep #: [id number] : 1970 54 From: Sony Yip MD Attending Dr: Dr. Octavio Archuleta MD Status: DIS NATALIE Ordering Dr: Junior Dunn DO Date: 10/05/24 Location: [facility] Sex: F C Admitted: 10/05/24 Test Reason [...] DATA IS UNCONFIRMED Confirmed by Sony Yip ([id number]), sports editor MAXIMO FIELDS ([id number]) on 10/10/2024 8:38:17 AM Referred By: JASON Confirmed By: Sony Yip 10/10/24 0838 Date Sony Yip MD CC: Dr. Junior Dunn DO; Dr. Octavio Archuleta MD; Dr. Phu Espinoza MD Signed Normal [facility] 12 Lead EKG [facility] Cardiovascular Services [address] [place] [address] 12 Lead EKG 10/05/241922 MR#: [id number] Acct: [id number] Name: ARLEN NGUYEN Rep #: [id number] : 1970 54 From: Josh Gibbs MD Attending Dr: Dr. Octavio Archuleta MD Status: ADM NATALIE Ordering Dr: Anton Thacker DO Date: 10/05/24 Location: [facility] Sex: F C Admitted: 10/05/24 Test Reason [...] Borderline ECG Confirmed by BERNIE DICKENS, JOSH ([id number]), sports editor MAXIMO FIELDS ([id number]) on 10/07/2024 11:35:42 AM Referred By: RU Confirmed By: JOSH GIBBS MD 10/07/24 1135 Date Josh Gibbs MD CC: Dr. Octavio Archuleta MD; Dr. Anton Thacker DO; Dr. Phu Espinoza MD Signed Normal [facility] Absolute lymphocyte countOrd ered By: Anton Thacker on 10-05-2024 Lymphocytes Auto (Unsp spec) [#/Vol] 3.48 10*3/uL 0.83-4.51 [facility] Absolute neutrophil countOrd ered By: Anton Thacker on 10-05-2024 Neutrophils (Bld) [#/Vol] 4.9 10*3/uL 2.0-7.7 [facility] Anion gap in Serum or Plasma Ordered By: Anton Thacker on 10-05-2024 Anion gap [Moles/Vol] 15 mmol/L 5-15 [facility] Automated lymphocyte count a s percentage of total leukocytesOrdered By: Anton Thacker on 10-05-2024 Lymphocytes/100 WBC Auto (Unsp spec) 36.5 % 19-41 [facility] BUN/creatinine ratioOrdered By: Anton Thacker on 10-05-2024 Urea nitrogen/Creatinine [Mass ratio] 20.9 mg/mg High 10-20 [facility] Basic Metabolic Profile (BMP )on 10-05-2024 BUN/CRE 21.1 RATIO High - [facility] Comment on above: Performed By: #### L 500.2500 #### [facility] Laboratory [address] [place], [address] Calcium [Mass/Vol] 9.6 mg/dL Normal 7.6-11.0 [facility] Comment on above: Performed By: #### L 500.2500 #### [facility] Laboratory [address] [place], [address] Chloride [Moles/Vol] 104 mmol/L Normal 98-108 [facility] Comment on above: Performed By: #### L 500.2500 #### [facility] Laboratory [address] [place], [address] CO2 [Moles/Vol] 21.0 mmol/L Normal 21.0-32.0 [facility] Comment on above: Performed By: #### L 500.2500 #### [facility] Laboratory [address] [place], [address] Creatinine [Mass/Vol] 1.32 mg/dL High 0.70-1.20 [facility] Comment on above: Performed By: #### L 500.2500 #### [facility] Laboratory [address] [place], [address] ECRCL 68.70 ml/min Normal 50-250 [facility] Comment on above: Performed By: #### L 500.2500 #### [facility] Laboratory [address] [place], [address] GAP 15 Normal 5-15 [facility] Comment on above: Performed By: #### L 500.2500 #### [facility] Laboratory [address] [place], [address] GFR/1.73 sq M.predicted among non-blacks MDRD (S/P/Bld) [Vol rate/Area] 48 mL/min/{1.73_m2} Low >60 [facility] Comment on above: Result Comment: mL/m in/1.73m2 CKD-EPI Creatinine Equation (2020) Performed By: #### L 500.2500 #### [facility] Laboratory [address] [place], [address] Glucose [Mass/Vol] 115 mg/dL High 70-99 [facility] Comment on above: Performed By: #### L 500.2500 #### [facility] Laboratory [address] [place], [address] Potassium [Moles/Vol] 4.7 mmol/L Normal 3.3-5.1 [facility] Comment on above: Performed By: #### L 500.2500 #### [facility] Laboratory [address] [place], [address] Sodium [Moles/Vol] 141 mmol/L Normal 133-145 [facility] Comment on above: Performed By: #### L 500.2500 #### [facility] Laboratory [address] [place], [address] Urea nitrogen [Mass/Vol] 28 mg/dL High 4-19 [facility] Comment on above: Performed By: #### L 500.2500 #### [facility] Laboratory [address] [place], [address] BUN/CRE 20.9 RATIO High 10-20 [facility] Comment on above: Performed By: #### L 100.0100, L501.4021, L500.2500 ####[facility] [address] [place], [address] Calcium [Mass/Vol] 10.2 mg/dL Normal 7.6-11.0 [facility] Comment on above: Performed By: #### L 100.0100, L501.4021, L500.2500 ####[facility] [address] [place], [address] Chloride [Moles/Vol] 104 mmol/L Normal 98-108 [facility] Comment on above: Performed By: #### L 100.0100, L501.4021, L500.2500 ####[facility] [address] [place], [address] CO2 [Moles/Vol] 21.3 mmol/L Normal 21.0-32.0 [facility] Comment on above: Performed By: #### L 100.0100, L501.4021, L500.2500 ####[facility] [address] [place], [address] Creatinine [Mass/Vol] 1.37 mg/dL High 0.70-1.20 [facility] Comment on above: Performed By: #### L 100.0100, L501.4021, L500.2500 ####[facility] [address] [place], [address] ECRCL 66.52 ml/min Normal 50-250 [facility] Comment on above: Performed By: #### L 100.0100, L501.4021, L500.2500 ####[facility] [address] [place], [address] GAP 15 Normal 5-15 [facility] Comment on above: Performed By: #### L 100.0100, L501.4021, L500.2500 ####[facility] [address] [place], [address] GFR/1.73 sq M.predicted among non-blacks MDRD (S/P/Bld) [Vol rate/Area] 46 mL/min/{1.73_m2} Low >60 [facility] Comment on above: Result Comment: mL/m in/1.73m2 CKD-EPI Creatinine Equation (2020) Performed By: #### L 100.0100, L501.4021, L500.2500 ####[facility] [address] [place], [address] Glucose [Mass/Vol] 103 mg/dL High 70-99 [facility] Comment on above: Performed By: #### L 100.0100, L501.4021, L500.2500 ####[facility] [address] [place], [address] Potassium [Moles/Vol] 4.8 mmol/L Normal 3.3-5.1 [facility] Comment on above: Performed By: #### L 100.0100, L501.4021, L500.2500 ####[facility] [address] [place], [address] Sodium [Moles/Vol] 140 mmol/L Normal 133-145 [facility] Comment on above: Performed By: #### L 100.0100, L501.4021, L500.2500 ####[facility] [address] [place], [address] Urea nitrogen [Mass/Vol] 29 mg/dL High 4-19 [facility] Comment on above: Performed By: #### L 100.0100, L501.4021, L500.2500 ####[facility] [address] [place], [address] Basophil percentageOrdered B y: Remus Ungur on 10-05-2024 Basophils/100 WBC (Bld) 0.5 % 0-1 [facility] Bedside Glucoseon 10-05-2024 FINGERSTICK GLU 126 mg/dL High 74-106 [facility] Comment on above: Result Comment: YESSENIA SANCHEZ OF PATIENT CARE PER NURSING PROTOCOL Performed By: #### L 501.080 #### [facility] Laboratory [address] [place], [address] CBC W/Diff, Automatedon 07-1 2-2024 Absolute Lymph 3.48 X10 3/uL Normal 0.83-4.51 [facility] Comment on above: Performed By: #### L 100.0100, L501.4021, L500.2500 ####[facility] [address] [place], [address] Absolute Neut 4.9 X10 3/uL Normal 2.0-7.7 [facility] Comment on above: Performed By: #### L 100.0100, L501.4021, L500.2500 ####[facility] [address] [place], [address] Basophils/100 WBC (Bld) 0.5 % Normal 0-1 [facility] Comment on above: Performed By: #### L 100.0100, L501.4021, L500.2500 ####[facility] [address] [place], [address] Eosinophils/100 WBC (Bld) 1.6 % Normal 0-5 [facility] Comment on above: Performed By: #### L 100.0100, L501.4021, L500.2500 ####[facility] [address] [place], [address] Erythrocyte distribution width (RBC) [Ratio] 15.5 % High 11.6-14.6 [facility] Comment on above: Performed By: #### L 100.0100, L501.4021, L500.2500 ####[facility] [address] [place], [address] Hematocrit (Bld) [Volume fraction] 34.7 % Low 37-47 [facility] Comment on above: Performed By: #### L 100.0100, L501.4021, L500.2500 ####[facility] [address] [place], [address] Hemoglobin (Bld) [Mass/Vol] 10.9 g/dL Low 12.0-15.0 [facility] Comment on above: Performed By: #### L 100.0100, L501.4021, L500.2500 ####[facility] [address] [place], [address] IG% 0.200 Normal 0.0-0.9 [facility] Comment on above: Result Comment: IG% - Immature Granulocytes (promyelocytes, myelocytes and metamyelocytes) > 1% indicates that a LEFT SHIFT is Present. Performed By: #### L 100.0100, L501.4021, L500.2500 ####[facility] [address] [place], [address] Lymphocytes/100 WBC (Bld) 36.5 % Normal 19-41 [facility] Comment on above: Performed By: #### L 100.0100, L501.4021, L500.2500 ####[facility] [address] [place], [address] MCH (RBC) [Entitic mass] 23.9 pg Low 27.0-32.0 [facility] Comment on above: Performed By: #### L 100.0100, L501.4021, L500.2500 ####[facility] [address] [place], [address] MCHC (RBC) [Mass/Vol] 31.4 g/dL Low 32-36 [facility] Comment on above: Performed By: #### L 100.0100, L501.4021, L500.2500 ####[facility] [address] [place], [address] MCV (RBC) [Entitic vol] 76.1 fL Low 81-99 [facility] Comment on above: Performed By: #### L 100.0100, L501.4021, L500.2500 ####[facility] [address] [place], [address] Monocytes/100 WBC (Bld) 9.5 % Normal 0-10 [facility] Comment on above: Performed By: #### L 100.0100, L501.4021, L500.2500 ####[facility] [address] [place], [address] Neutrophils/100 WBC (Bld) 51.7 % Normal 47-70 [facility] Comment on above: Performed By: #### L 100.0100, L501.4021, L500.2500 ####[facility] [address] [place], [address] Nucleated RBC (Bld) [#/Vol] 0 10*3/uL Normal 0-5 [facility] Comment on above: Performed By: #### L 100.0100, L501.4021, L500.2500 ####[facility] [address] [place], [address] Platelet mean volume (Bld) [Entitic vol] 9.7 fL Normal 6.2-12.0 [facility] Comment on above: Performed By: #### L 100.0100, L501.4021, L500.2500 ####[facility] [address] [place], [address] Platelets (Bld) [#/Vol] 276 10*3/uL Normal 150-450 [facility] Comment on above: Performed By: #### L 100.0100, L501.4021, L500.2500 ####[facility] [address] [place], [address] RBC (Bld) [#/Vol] 4.56 10*6/uL Normal 4.2-5.4 [facility] Comment on above: Performed By: #### L 100.0100, L501.4021, L500.2500 ####[facility] [address] [place], [address] RDW SD 42.5 fl Normal 35.1-43.9 [facility] Comment on above: Performed By: #### L 100.0100, L501.4021, L500.2500 ####[facility] [address] [place], [address] WBC (Bld) [#/Vol] 9.5 10*3/uL Normal 4.4-11.0 [facility] Comment on above: Performed By: #### L 100.0100, L501.4021, L500.2500 ####[facility] [address] [place], [address] Carbon dioxide, total [Moles /volume] in Central venous bloodOrdered By: Anton Thacker on 10-05-2024 CO2 [Moles/Vol] 21.3 mmol/L 21.0-32.0 [facility] Chest 1 View (Portable)on Chest 1 View (Portable) [facility] Imaging Services [address] [place] [address] Chest 1 View (Portable) MR#: [id number] Acct: [id number] Name: ARLEN NGUYEN Rep #: [id number] : 1970 F 54 From: Ritchie Caraballo MD PCP: Dr. Phu Espinoza MD Status: REG ER Study: Chest 1 View (Portable) Date of Exam: 10/05/24 Exam# [id number] Ordering Dr: Anton Thacker DO PROCEDURE: CHEST [...] IMPRESSION: No acute cardiopulmonary abnormality. Reading Location: [id number] CC: Dr. Anton Thacker DO; Dr. Phu Espinoza MD Labor Contractor: Signed Normal [facility] Chloride assayOrdered By: Arabella Thacker on 10-05-2024 Chloride [Moles/Vol] 104 mmol/L 98-108 [facility] D-Dimer Quantitative (DVT/PE )on 10-05-2024 D-DIMER QUANT 0.42 FEU/ug/m Normal 0.27-0.49 [facility] Comment on above: Result Comment: NORM AL D-Dimer level (<0.50) indicates no DVT or PE. Performed By: #### L 300.8000 ####[facility] [address] [place], [address] Echo Complete W/ Contraston 10-05-2024 Echo Complete W/ Contrast [facility] Cardi[facility] [address] [place] [address] Echo Complete W/ Contrast 10/07/24 1125 MR#: [id number] Acct: [id number] Name: ARLEN NGUYEN Rep #: [id number] : 1970 54 From: Ronda Schaefer MD Attending Dr: Dr. Octavio Archuleta MD Status: ADM NATALIE Ordering Dr: Junior Dunn DO Date: 10/05/24 Location: U Sex: F C Admitted: 10/05/24 Reason For [...] Dictated: 10/07/24 1125 Date Transcribed: 10/07/24 1422 Labor Contractor: Signed Normal [facility] Emergency Department Summary on 10-05-2024 Emergency Department Summary [facility] Medical Records Department [address] [place] [address] Emergency Department Summary 10/05/24 MR#: [id number] Acct: [id number] Name: ARLEN NGUYEN Rep #: [id number] : 1970 54 From: Anton Thacker DO PCP: Dr. Phu Espinoza MD Status:ADM NATALIE Location: [place] [id number] HPI History of Present Illness Chief Complaint: [...] surgery although she recently had travel to [place] by car but it was less than 4 hours. No history of PE or DVT. She has no heart history. She is a diabetic and has history of hypertension and high cholesterol. Patient also with history of anxiety and history of GERD. Currently rates her pain a 5 out of 10. [facility] Medical History Post-menopausal Wears contact lenses [...] 10 mg tablet 10 mg PO DAILY 11/10/21 11/10/22 H istory valsartan 320 mg tablet 320 [...] throat Cardiov (more content not included)... Normal [facility] Eosinophil percentageOrdered By: Anton Thacker on 10-05-2024 Eosinophils/100 WBC (Bld) 1.6 % 0-5 [facility] Erythrocyte distribution wid th ratioOrdered By: Anton Thacker on 10-05-2024 Erythrocyte distribution width (RBC) [Ratio] 15.5 % High 11.6-14.6 [facility] Erythrocyte distribution wid th standard deviationOrdered By: Anton Thacker on 10-05-2024 Erythrocyte distribution width (RBC) [Ratio] 42.5 fl 35.1-43.9 [facility] Glomerular filtration rate ( GFR) estimation/1.73 sq m using serum, plasma, or whole bOrdered By: Anton Thacker on 10-05-2024 GFR/1.73 sq M.predicted among non-blacks MDRD (S/P/Bld) [Vol rate/Area] 46 mL/min/{1.73_m2} Low >60 [facility] Comment on above: mL/min/1.73m2 CKD-EP I Creatinine Equation (2020) H AND P Exam - [place] 10-05-2024 H&P Exam - Hospitalist [facility] Medical Records Department [address] [place] [address] H P Exam - Hospitalist 10/05/24 2110 MR#: [id number] Acct: [id number] Name: ARLEN NGUYEN Rep #: [id number] : 1970 54 From: Junior Dunn DO PCP: Dr. Phu Espinoza MD Status:ADM NATALIE Location: [place] [address] HPI - General General Date of Admission: 10/05/24 Date of Service: 10/05/24 Chief Complaint: Chest pain HPI Narrative ARLEN NGUYEN, is a 54 F who presented to [facility] ED on 10/05/2024 with chest pain. Medical [...] concerns. Will be admitted for further management. [facility] Medical History Post-menopausal Wears contact lenses [...] @ 13:0 (more content not included)... Normal [facility] Hematocrit Auto (Bld) [Volum e fraction]Ordered By: Anton Thacker on 10-05-2024 Hematocrit (Bld) [Volume fraction] 34.7 % Low 37-47 [facility] Hemoglobin A1con 10-05-2024 HbA1c (Bld) [Mass fraction] 6.0 % High <=5.6 [facility] Comment on above: Result Comment: Norm al < 5.7 % Prediabetic 5.7 - 6.4 % Diabetic >or= 6.5 % Please note range changes. Performed By: #### L 500.4050, L100.0100, L501.9520 #### [facility] Laboratory [address] [place], [place], [id number] Hemoglobin A1c percentageOrd ered By: Junior Dunn on 10-05-2024 HbA1c (Bld) [Mass fraction] 6.0 % High <5.7 [facility] Comment on above: Normal < 5.7 % Predi abetic 5.7 - 6.4 % Diabetic >or= 6.5 % Please note range changes. Hemoglobin measurementOrdere d By: Anton Thacker on 10-05-2024 Hemoglobin (Bld) [Mass/Vol] 10.9 g/dL Low 12.0-15.0 [facility] Immature granulocytes/100 WB C Auto (Bld)Ordered By: Anton Thacker on 10-05-2024 Immature granulocytes/100 WBC (Bld) 0.200 % 0.0-0.9 [facility] Comment on above: IG% - Immature Granu locytes (promyelocytes, myelocytes and metamyelocytes) > 1% indicates that a LEFT SHIFT is Present. L499.0042on 10-05-2024 Trop T High Sen 22 ng/L High <=14 [facility] Comment on above: Performed By: #### L 499.0042 ####[facility] [address] [place], [place], [id number] L501.4021on 10-05-2024 Trop T High Sen 21 ng/L High <=14 [facility] Comment on above: Performed By: #### L 100.0100, L501.4021, L500.2500 ####[facility] [address] [place], [address] MCV (mean corpuscular volume ) determinationOrdered By: Anton Thacker on 10-05-2024 MCV (RBC) [Entitic vol] 76.1 fL Low 81-99 [facility] Mean corpuscular hemoglobin (MCH) determinationOrdered By: Remus Thacker on 10-05-2024 MCH (RBC) [Entitic mass] 23.9 pg Low 27.0-32.0 [facility] Mean corpuscular hemoglobin concentration (MCHC) determinationOrdered By: Anton Thacker on 10-05-2024 MCHC (RBC) [Mass/Vol] 31.4 g/dL Low 32-36 [facility] Mean platelet volume determi nationOrdered By: Anton Thacker on 10-05-2024 Platelet mean volume (Bld) [Entitic vol] 9.7 fL 6.2-12.0 [facility] Monocyte percentageOrdered B y: Anton Thacker on 10-05-2024 Monocytes/100 WBC (Bld) 9.5 % 0-10 [facility] Neutrophil percentageOrdered By: Anton Thacker on 10-05-2024 Neutrophils/100 WBC (Bld) 51.7 % 47-70 [facility] Nucleated red blood cell per centageOrdered By: Anton Thacker on 10-05-2024 Nucleated RBC/100 WBC (Bld) [Ratio] 0 % 0-5 [facility] Platelet countOrdered By: Arabella Thacker on 10-05-2024 Platelets (Bld) [#/Vol] 276 10*3/uL 150-450 [facility] Potassium measurement (mass/ volume)Ordered By: Anton Thacker on 10-05-2024 Potassium (Unsp spec) [Mass/Vol] 4.8 mmol/L 3.3-5.1 [facility] RBC Auto (Bld) [#/Vol]Ordere d By: Anton Thacker on 10-05-2024 RBC (Bld) [#/Vol] 4.56 10*6/uL 4.2-5.4 [facility] Serum creatinine measurement (mass/volume)Ordered By: Anton Thacker on 10-05-2024 Creatinine [Mass/Vol] 1.37 mg/dL High 0.70-1.20 [facility] Serum glucose measurement (m ass/volume)Ordered By: Julietus Thacker on 10-05-2024 Glucose [Mass/Vol] 103 mg/dL High 70-99 [facility] Serum or plasma calcium thiago urement (mass/volume)Ordered By: Anton Thacker on 10-05-2024 Calcium [Mass/Vol] 10.2 mg/dL 7.6-11.0 [facility] Serum or plasma urea nitroge n measurement (mass/volume)Ordered By: Anton Thacker on 10-05-2024 Urea nitrogen [Mass/Vol] 29 mg/dL High 4-19 [facility] Sodium levelOrdered By: Mallorie Thacker on 10-05-2024 Sodium [Moles/Vol] 140 mmol/L 133-145 [facility] Troponin T.cardiac [Mass/vol ume] in Serum or Plasma by High sensitivity methodOrdered By: Anton Thacker on 10-05-2024 Troponin T.cardiac High sensitivity method [Mass/Vol] 34 ng/L High <14 [facility] Troponin T.cardiac High sensitivity method [Mass/Vol] 22 ng/L High <14 [facility] Troponin T.cardiac High sensitivity method [Mass/Vol] 21 ng/L High <14 [facility] White blood cell (WBC) count Ordered By: Anton Thacker on 10-05-2024 WBC (Bld) [#/Vol] 9.5 10*3/uL 4.4-11.0 [facility] Absolute lymphocyte countOrd ered By: Phu Espinoza on 07-03-2024 Lymphocytes Auto (Unsp spec) [#/Vol] 2.19 10*3/uL 0.83-4.51 [facility] Absolute neutrophil countOrd ered By: Phu Espinoza on 07-03-2024 Neutrophils (Bld) [#/Vol] 4.9 10*3/uL 2.0-7.7 [facility] Anion gap in Serum or Plasma Ordered By: Phu Espinoza on 07-03-2024 Anion gap [Moles/Vol] 12 mmol/L 5-15 [facility] Automated lymphocyte count a s percentage of total leukocytesOrdered By: Phu Espinoza on 07-03-2024 Lymphocytes/100 WBC Auto (Unsp spec) 26.7 % 19- [facility] BUN/creatinine ratioOrdered By: Phu Espinoza on 07-03-2024 Urea nitrogen/Creatinine [Mass ratio] 19.0 mg/mg 10-20 [facility] Basophil percentageOrdered B y: Phu Alexis on 07-03-2024 Basophils/100 WBC (Bld) 1.0 % 0-1 [facility] Bilirubin, totalOrdered By: Phu Espinoza on 07-03-2024 Bilirubin [Mass/Vol] 0.41 mg/dL 0.00-1.30 [facility] CBC W/Diff, Automatedon Absolute Lymph 2.19 X10 3/uL Normal 0.83-4.51 [facility] Comment on above: Performed By: #### L 500.4050, L100.0100, L501.9520 #### [facility] Laboratory [address] [place], [address] Absolute Neut 4.9 X10 3/uL Normal 2.0-7.7 [facility] Comment on above: Performed By: #### L 500.4050, L100.0100, L501.9520 #### [facility] Laboratory [address] [place], [address] Basophils/100 WBC (Bld) 1.0 % Normal 0-1 [facility] Comment on above: Performed By: #### L 500.4050, L100.0100, L501.9520 #### [facility] Laboratory [address] [place], [address] Eosinophils/100 WBC (Bld) 1.8 % Normal 0-5 [facility] Comment on above: Performed By: #### L 500.4050, L100.0100, L501.9520 #### [facility] Laboratory [address] [place], [address] Erythrocyte distribution width (RBC) [Ratio] 15.5 % High 11.6-14.6 [facility] Comment on above: Performed By: #### L 500.4050, L100.0100, L501.9520 #### [facility] Laboratory [address] [place], [address] Hematocrit (Bld) [Volume fraction] 35.7 % Low 37-47 [facility] Comment on above: Performed By: #### L 500.4050, L100.0100, L501.9520 #### [facility] Laboratory [address] [place], [address] Hemoglobin (Bld) [Mass/Vol] 10.8 g/dL Low 12.0-15.0 [facility] Comment on above: Performed By: #### L 500.4050, L100.0100, L501.9520 #### [facility] Laboratory [address] [place], [address] IG% 0.500 Normal 0.0-0.9 [facility] Comment on above: Result Comment: IG% - Immature Granulocytes (promyelocytes, myelocytes and metamyelocytes) > 1% indicates that a LEFT SHIFT is Present. Performed By: #### L 500.4050, L100.0100, L501.9520 #### [facility] Laboratory [address] [place], [address] Lymphocytes/100 WBC (Bld) 26.7 % Normal 19-41 [facility] Comment on above: Performed By: #### L 500.4050, L100.0100, L501.9520 #### [facility] Laboratory [address] [place], [address] MCH (RBC) [Entitic mass] 24.2 pg Low 27.0-32.0 [facility] Comment on above: Performed By: #### L 500.4050, L100.0100, L501.9520 #### [facility] [address] [place], [address] MCHC (RBC) [Mass/Vol] 30.3 g/dL Low 32-36 [facility] Comment on above: Performed By: #### L 500.4050, L100.0100, L501.9520 #### [facility] Laboratory [address] [place], [address] MCV (RBC) [Entitic vol] 80.0 fL Low 81-99 [facility] Comment on above: Performed By: #### L 500.4050, L100.0100, L501.9520 #### [facility] Laboratory [address] [place], [address] Monocytes/100 WBC (Bld) 9.9 % Normal 0-10 [facility] Comment on above: Performed By: #### L 500.4050, L100.0100, L501.9520 #### [facility] Laboratory [address] [place], [address] Neutrophils/100 WBC (Bld) 60.1 % Normal 47-70 [facility] Comment on above: Performed By: #### L 500.4050, L100.0100, L501.9520 #### [facility] Laboratory [address] [place], [address] Nucleated RBC (Bld) [#/Vol] 0 10*3/uL Normal 0-5 [facility] Comment on above: Performed By: #### L 500.4050, L100.0100, L501.9520 #### [facility] Laboratory [address] [place], [address] Platelet mean volume (Bld) [Entitic vol] 9.8 fL Normal 6.2-12.0 [facility] Comment on above: Performed By: #### L 500.4050, L100.0100, L501.9520 #### [facility] Laboratory [address] [place], [address] Platelets (Bld) [#/Vol] 282 10*3/uL Normal 150-450 [facility] Comment on above: Performed By: #### L 500.4050, L100.0100, L501.9520 #### [facility] Laboratory [address] [place], [address] RBC (Bld) [#/Vol] 4.46 10*6/uL Normal 4.2-5.4 [facility] Comment on above: Performed By: #### L 500.4050, L100.0100, L501.9520 #### [facility] Laboratory [address] [place], [address] RDW SD 44.4 fl High 35.1-43.9 [facility] Comment on above: Performed By: #### L 500.4050, L100.0100, L501.9520 #### [facility] Laboratory [address] [place], [address] WBC (Bld) [#/Vol] 8.2 10*3/uL Normal 4.4-11.0 [facility] Comment on above: Performed By: #### L 500.4050, L100.0100, L501.9520 #### [facility] Laboratory [address] [place], [address] Carbon dioxide, total [Moles /volume] in Central venous bloodOrdered By: Phu Espinoza on 07-03-2024 CO2 [Moles/Vol] 28.2 mmol/L 21.0-32.0 [facility] Chloride assayOrdered By: Sloan Espinoza on 07-03-2024 Chloride [Moles/Vol] 102 mmol/L 98-108 [facility] Comprehensive Metabolic Prof ilon 07-03-2024 Albumin [Mass/Vol] 4.2 g/dL Normal 3.5-5.0 [facility] Comment on above: Performed By: #### L 500.4050, L100.0100, L501.9520 #### [facility] Laboratory [address] [place], [address] Albumin/Globulin [Mass ratio] 1.5 {ratio} Normal 0.9-2.4 [facility] Comment on above: Performed By: #### L 500.4050, L100.0100, L501.9520 #### [facility] Laboratory [address] [place], [address] ALK PHOS 50 U/L Normal 35-104 [facility] Comment on above: Performed By: #### L 500.4050, L100.0100, L501.9520 #### [facility] Laboratory [address] [place], [address] ALT [Catalytic activity/Vol] 62 U/L High <=34 [facility] Comment on above: Performed By: #### L 500.4050, L100.0100, L501.9520 #### [facility] Laboratory [address] [place], [address] AST [Catalytic activity/Vol] 67 U/L High <=31 [facility] Comment on above: Performed By: #### L 500.4050, L100.0100, L501.9520 #### [facility] Laboratory [address] [place], [address] Bilirubin [Mass/Vol] 0.41 mg/dL Normal 0.00-1.30 [facility] Comment on above: Performed By: #### L 500.4050, L100.0100, L501.9520 #### [facility] Laboratory [address] [place], [address] BUN/CRE 19.0 RATIO Normal 10-20 [facility] Comment on above: Performed By: #### L 500.4050, L100.0100, L501.9520 #### [facility] Laboratory [address] [place], [address] Calcium [Mass/Vol] 9.4 mg/dL Normal 7.6-11.0 [facility] Comment on above: Performed By: #### L 500.4050, L100.0100, L501.9520 #### [facility] Laboratory [address] [place], [address] Chloride [Moles/Vol] 102 mmol/L Normal 98-108 [facility] Comment on above: Performed By: #### L 500.4050, L100.0100, L501.9520 #### [facility] Laboratory [address] [place], [address] CO2 [Moles/Vol] 28.2 mmol/L Normal 21.0-32.0 [facility] Comment on above: Performed By: #### L 500.4050, L100.0100, L501.9520 #### [facility] Laboratory [address] [place], [address] Creatinine [Mass/Vol] 1.00 mg/dL Normal 0.70-1.20 [facility] Comment on above: Performed By: #### L 500.4050, L100.0100, L501.9520 #### [facility] Laboratory [address] [place], [address] GAP 12 Normal 5-15 [facility] Comment on above: Performed By: #### L 500.4050, L100.0100, L501.9520 #### [facility] [address] [place], [address] GFR/1.73 sq M.predicted among non-blacks MDRD (S/P/Bld) [Vol rate/Area] 67 mL/min/{1.73_m2} Normal >60 [facility] Comment on above: Result Comment: mL/m in/1.73m2 CKD-EPI Creatinine Equation (2020) Performed By: #### L 500.4050, L100.0100, L501.9520 #### [facility] [address] [place], [address] Globulin (S) [Mass/Vol] 2.8 g/dL Normal 2.2-4.2 [facility] Comment on above: Performed By: #### L 500.4050, L100.0100, L501.9520 #### [facility] [address] [place], [address] Glucose [Mass/Vol] 133 mg/dL High 70-99 [facility] Comment on above: Performed By: #### L 500.4050, L100.0100, L501.9520 #### [facility] [address] [place], [address] Potassium [Moles/Vol] 4.3 mmol/L Normal 3.3-5.1 [facility] Comment on above: Performed By: #### L 500.4050, L100.0100, L501.9520 #### [facility] Laboratory [address] [place], [address] Sodium [Moles/Vol] 142 mmol/L Normal 133-145 [facility] Comment on above: Performed By: #### L 500.4050, L100.0100, L501.9520 #### [facility] [address] [place], [address] T PROT 7.0 g/dL Normal 5.9-8.4 [facility] Comment on above: Performed By: #### L 500.4050, L100.0100, L501.9520 #### [facility] [address] [place], [address] Urea nitrogen [Mass/Vol] 19 mg/dL Normal 4-19 [facility] Comment on above: Performed By: #### L 500.4050, L100.0100, L501.9520 #### [facility] Laboratory [address] [place], [place], [id number] Eosinophil percentageOrdered By: Phu Espinoza 07-03-2024 Eosinophils/100 WBC (Bld) 1.8 % 0-5 [facility] Erythrocyte distribution wid th (RBC) [Ratio]Ordered By: Phu Espinoza 07-03-2024 Erythrocyte distribution width (RBC) [Entitic vol] 44.4 fL High 35.1-43.9 [facility] Erythrocyte distribution wid th ratioOrdered By: Phu Espinoza 07-03-2024 Erythrocyte distribution width (RBC) [Ratio] 15.5 % High 11.6-14.6 [facility] Erythrocyte distribution wid th standard deviationOrdered By: [facility] 07-[facility]20[facility] Erythrocyte distribution width (RBC) [Ratio] 44.4 fl High 35.1-43.9 [facility] GFR/1.73 sq M.predicted sanchez g non-blacks MDRD (S/P/Bld) [Vol rate/Area]Ordered By: Phu Espinoza 07-03-2024 Estimated GFR (MDRD) Non-Af Amer 67 >60 [facility] Comment on above: mL/min/1.73m2 CKD-EP I Creatinine Equation (2020) Glomerular filtration rate ( GFR) estimation/1.73 sq m using serum, plasma, or whole bOrdered By: Phu Espinoza 07-03-2024 GFR/1.73 sq M.predicted among non-blacks MDRD (S/P/Bld) [Vol rate/Area] 67 mL/min/{1.73_m2} >60 [facility] Comment on above: mL/min/1.73m2 CKD-EP I Creatinine Equation (2020) Hematocrit Auto (Bld) [Volum e fraction]Ordered By: Phu Espinoza 07-03-2024 Hematocrit (Bld) [Volume fraction] 35.7 % Low 37-47 [facility] Hemoglobin measurementOrdere d By: Phu Espinoza 07-03-2024 Hemoglobin (Bld) [Mass/Vol] 10.8 g/dL Low 12.0-15.0 [facility] Immature granulocytes/100 WB C Auto (Bld)Ordered By: Phu Espinoza on 07-03-2024 Immature granulocytes/100 WBC (Bld) 0.500 % 0.0-0.9 [facility] Comment on above: IG% - Immature Granu locytes (promyelocytes, myelocytes and metamyelocytes) > 1% indicates that a LEFT SHIFT is Present. Laboratory - Chemistry and C hemistry - challengeOrdered By: Phu Espinoza on 07-03-2024 AST [Catalytic activity/Vol] 67 U/L High <32 [facility] Lymphocytes Auto (Unsp spec) [#/Vol]Ordered By: [facility] on 07-03-2024 Lymphocytes (Bld) [#/Vol] 2.19 10*3/uL 0.83-4.51 [facility] Lymphocytes/100 WBC Auto (Un sp spec)Ordered By: Phu Espinoza on 07-03-2024 Lymphocytes/100 WBC (Bld) 26.7 % 19-41 [facility] MCV (mean corpuscular volume ) determinationOrdered By: Phu Espinoza on 07-03-2024 MCV (RBC) [Entitic vol] 80.0 fL Low 81-99 [facility] Mean corpuscular hemoglobin (MCH) determinationOrdered By: [facility] 07-03-2024 MCH (RBC) [Entitic mass] 24.2 pg Low 27.0-32.0 [facility] Mean corpuscular hemoglobin concentration (MCHC) determinationOrdered By: Phu Alexis 07-03-2024 MCHC (RBC) [Mass/Vol] 30.3 g/dL Low 32-36 [facility] Mean platelet volume determi nationOrdered By: Phu Espinoza on 07-03-2024 Platelet mean volume (Bld) [Entitic vol] 9.8 fL 6.2-12.0 [facility] Monocyte percentageOrdered B y: Phu Espinoza on 07-03-2024 Monocytes/100 WBC (Bld) 9.9 % 0-10 [facility] Neutrophil percentageOrdered By: [facility] on 07-03-2024 Neutrophils/100 WBC (Bld) 60.1 % 47-70 [facility] Nucleated red blood cell per centageOrdered By: Phu Espinoza on 07-03-2024 Nucleated RBC/100 WBC (Bld) [Ratio] 0 % 0-5 [facility] Platelet countOrdered By: Sloan Espinoza on 07-03-2024 Platelets (Bld) [#/Vol] 282 10*3/uL 150-450 [facility] Potassium (Unsp spec) [Mass/ Vol]Ordered By: Phu Espinoza on 07-03-2024 Potassium [Moles/Vol] 4.3 mmol/L 3.3-5.1 [facility] Potassium measurement (mass/ volume)Ordered By: Phu Espinoza on 07-03-2024 Potassium (Unsp spec) [Mass/Vol] 4.3 mmol/L 3.3-5.1 [facility] RBC Auto (Bld) [#/Vol]Ordere d By: Phu Espinoza on 07-03-2024 RBC (Bld) [#/Vol] 4.46 10*6/uL 4.2-5.4 [facility] Serum creatinine measurement (mass/volume)Ordered By: Phu Espinoza on 07-03-2024 Creatinine [Mass/Vol] 1.00 mg/dL 0.70-1.20 [facility] Serum globulin measurementOr dered By: Phu Espinoza 07-03-2024 Globulin (S) [Mass/Vol] 2.8 g/dL 2.2-4.2 [facility] Serum glucose measurement (m ass/volume)Ordered By: Phu Espinoza 07-03-2024 Glucose [Mass/Vol] 133 mg/dL High 70-99 [facility] Serum or plasma alanine tobar otransferase (ALT) measurementOrdered By: Phu Espinoza 07-03-2024 ALT [Catalytic activity/Vol] 62 U/L High <35 [facility] Serum or plasma albumin thiago urement (mass/volume)Ordered By: Phu Espinoza 07-03-2024 Albumin [Mass/Vol] 4.2 g/dL 3.5-5.0 [facility] Serum or plasma albumin/glob ulin mass ratioOrdered By: Phu Espinoza 07-03-2024 Albumin/Globulin [Mass ratio] 1.5 {ratio} 0.9-2.4 [facility] Serum or plasma alkaline meg sphatase measurementOrdered By: Phu Espinoza 07-03-2024 ALP [Catalytic activity/Vol] 50 U/L 35-104 [facility] Serum or plasma calcium thiago urement (mass/volume)Ordered By: Phu Espinoza on 07-03-2024 Calcium [Mass/Vol] 9.4 mg/dL 7.6-11.0 [facility] Serum or plasma urea nitroge n measurement (mass/volume)Ordered By: Phu Espinoza on 07-03-2024 Urea nitrogen [Mass/Vol] 19 mg/dL 4-19 [facility] Sodium levelOrdered By: Phu Espinoza on 07-03-2024 Sodium [Moles/Vol] 142 mmol/L 133-145 [facility] TSH DL <= 0.005 mIU/L QnOrde red By: Phu Espinoza on 07-03-2024 Thyroid Stimulating Hormone (TSH) 0.593 uIU/mL 0.300-4.200 [facility] TSH Qn 0.593 uIU/mL 0.300-4.200 [facility] Thyroid Stim Hormone (TSH)on 07-03-2024 TSH 0.593 uIU/mL Normal 0.300-4.200 [facility] Comment on above: Performed By: #### L 500.4050, L100.0100, L501.9520 #### [facility] Laboratory [address] [place], [place], [address] Total proteinOrdered By: Phu Espinoza on 07-03-2024 Protein [Mass/Vol] 7.0 g/dL 5.9-8.4 [facility] White blood cell (WBC) count Ordered By: Phu Espinoza on 07-03-2024 WBC (Bld) [#/Vol] 8.2 10*3/uL 4.4-11.0 [facility] Direct serum free thyroxine (FT4) measurementOrdered By: Massiel Gibbons on 05-02-2024 Free T4 [Mass/Vol] 1.05 ng/dL 0.76-1.46 [facility] Endocrinology Visit Reporton 05-02-2024 Endocrinology Visit Report [facility] [address] [place] [address]. [address] [place] [address] OFFICE VISIT Date of Service: 05/02/24 MR#: [id number] Acct: [id number] Name: ARLEN NGUYEN Rep #: [id number] : 1970 Provider: ADELITA martin Age/Sex: 54/F Location: [facility] Status: Signed Intake Vital Signs [...] tablet,delayed 40 mg PO QHS #90 TABLETS 04/24/24 02/06/25 Rx release metformin 1,000 mg tablet 1,000 [...] acute concerns (more content not included)... Normal [facility] Laboratory - Hematology and Cell countsOrdered By: Massiel Gibbons on 05-02-2024 HbA1c (Bld) [Mass fraction] 6.7 % High 4.2-6.3 [facility] T4 Free Directon 05-02-2024 T4 FREE DIRECT 1.05 ng/dL Normal 0.76-1.46 [facility] Comment on above: Performed By: #### L 506.0400, L501.9520 ####[facility] [id number] [place], [address] TSH QnOrdered By: Massiel martin on 05-02-2024 Thyroid Stimulating Hormone (TSH) 2.130 uIU/mL 0.358-3.740 [facility] Thyroid Stim Hormone (TSH)on 05-02-2024 TSH 2.130 uIU/mL Normal 0.358-3.740 [facility] Comment on above: Performed By: #### L 506.0400, L501.9520 ####[facility] [id number] [place], [address] Abdomen without IV Contrasto n 04-19-2024 Abdomen without IV Contrast [facility] Services [address] [place] [address] Abdomen without IV Contrast MR#: [id number] Acct: [id number] Name: ARLEN NGUYEN Rep #: [id number] : 1970 F 54 From: Roverto Andujar PCP: Dr. Phu Espinoza MD Status: REG CLI Study: Abdomen without IV Contrast Date of Exam: 03/28 07/19 Exam# [id number] Ordering Dr: Jodi Agee MD [id number] STUDY: CT Abdomen W/O Contrast Injection 04/21/2024 [...] Signed: Roverto Beebe MD at 16:01 EST , CC: Dr. Phu Espinoza MD; Dr. Jodi Agee MD Labor Contractor: Signed Normal [facility] Surgery Visit Reporton 03-22 Surgery Visit Report [facility] [address] [place] [address] OFFICE VISIT Date of Service: 03/22/24 MR#: [id number] Acct: [id number] Name: ARLEN NGUYEN Rep #: [id number] : 1970 Provider: Dr. Jodi back MD Age/Sex: 53/F Location: [facility] Status: Signed Intake Vital Signs 01/31/24 11:40 [...] atrial fi (more content not included)... Normal [facility] Chest PA and Lateralon 03-04 Chest PA and Lateral [facility] Imaging Services [facility] [place], [place] [address] Chest PA and Lateral MR#: [id number] Acct: [id number] Name: ARLEN NGUYEN Rep #: [id number] : 1970 F 53 From: Eduard Andujar PCP: Dr. Phu Espinoza MD Status: [facility] Study: Chest PA and Lateral Date of Exam: 03/04/24 Exam# [id number] Ordering Dr: Phu Espinoza MD [id number] INDICATION: WHEEZING EXAMINATION/TECHNIQU E: X-RAY - XR [...] EST , CC: Dr. Phu Espinoza MD Labor Contractor: Signed Normal [facility] M100.678on 03-04-2024 M100.678 Pending SARS-CoV-2 (COVID 19) Negative INFLUENZA A Negative INFLUENZA B Negative RSV PCR Negative Normal [facility] Comment on above: Performed By: #### M 100.678 ####[facility] [id number] [place], [address] T4 Free Directon 02-16-2024 T4 FREE DIRECT 1.01 ng/dL Normal 0.76-1.46 [facility] Comment on above: Performed By: #### L 503.0106, L100.0100 #### [facility] Laboratory [address] [place], [address] Thyroid Stim Hormone (TSH)on 02-16-2024 TSH 2.020 uIU/mL Normal 0.358-3.740 [facility] Comment on above: Performed By: #### L 503.0106, L100.0100 #### [facility] Laboratory [address] [facility] [place], [address] Culture, urineOrdered By: Sloan Espinoza on 04-03-2023 Bacteria identified Cx Nom (U) Mixed Gram Pos & Gram Neg Org [facility] Bacteria identified Cx Nom (U) Mixed Gram Pos & Gram Neg Org [facility] Glucose Glucometer (BldC) [M ass/Vol]Ordered By: Jodi Agee on 03-13-2023 Glucose [Mass/Vol] 186 mg/dL 74-106 [facility] Comment on above: MANAGEMENT OF PATIEN T CARE PER NURSING PROTOCOL Absolute lymphocyte countOrd ered By: Massiel Gibbons on 03-02-2023 Lymphocytes Auto (Unsp spec) [#/Vol] 2.72 10*3/uL 0.83-4.51 [facility] Basophil percentageOrdered B y: Massiel Gibbons on 03-02-2023 Basophils/100 WBC (Bld) 0.4 % 0-1 [facility] Cholesterol [Mass/Vol] 148 mg/dL <200 [facility] Comment on above: <200 mg/dL Desirable 200-240 mg/dL Borderline >240 mg/dL High Risk Eosinophils/100 WBC (Bld) 1.7 % 0-5 [facility] Neutrophils (Bld) [#/Vol] 3.6 10*3/uL 2.0-7.7 [facility] Neutrophils/100 WBC (Bld) 50.4 % 47-70 [facility] Triglyceride [Mass/Vol] 136 mg/dL <199 [facility] Comment on above: The drugs N-Acetylcy steine and Metamizole may falsely depress this assay.Serum Triglycerides Reference Interval Normal <150 mg/dL Borderline high 150 - 199 mg/dL High 200 - 499 mg/dL Very High > or = 500 mg/dL WBC (Bld) [#/Vol] 7.1 10*3/uL 4.4-11.0 [facility] Blood erythrocytes count (nu mber/volume)Ordered By: Massiel Gibbons on 03-02-2023 RBC (Bld) [#/Vol] 4.22 10*6/uL 4.2-5.4 [facility] Blood hemoglobin measurement (mass/volume)Ordered By: Massiel Gibbons on 03-02-2023 Hemoglobin (Bld) [Mass/Vol] 11.0 g/dL 12.0-15.0 [facility] Blood lymphocytes/100 leukoc ytesOrdered By: Massiel Gibbons on 03-02-2023 Lymphocytes/100 WBC (Bld) 38.5 % 19-41 [facility] Blood monocytes/100 leukocyt esOrdered By: Massiel Gibbons on 03-02-2023 Monocytes/100 WBC (Bld) 8.6 % 0-10 [facility] Blood platelet mean volumeOr dered By: Massiel Gibbons on 03-02-2023 Platelet mean volume (Bld) [Entitic vol] 9.8 fL 6.2-12.0 [facility] Determination of erythrocyte mean corpuscular volume (MCV)Ordered By: Massiel Gibbons on 03-02-2023 MCV (RBC) [Entitic vol] 83.2 fL 81-99 [facility] Hematocrit Auto (Bld) [Volum e fraction]Ordered By: Massiel Gibbons on 03-02-2023 Hematocrit (Bld) [Volume fraction] 35.1 % 37-47 [facility] Laboratory - Chemistry and C hemistry - challengeOrdered By: Massiel Gibbons on 03-02-2023 Free T4 [Mass/Vol] 0.83 ng/dL 0.76-1.46 [facility] Laboratory - Hematology and Cell countsOrdered By: Massiel Gibbons on 03-02-2023 Erythrocyte distribution width (RBC) [Entitic vol] 41.3 fL 35.1-43.9 [facility] Erythrocyte distribution width (RBC) [Ratio] 13.7 % 11.6-14.6 [facility] Immature granulocytes/100 WBC (Bld) 0.400 % 0.0-0.9 [facility] Comment on above: IG% - Immature Granu locytes (promyelocytes, myelocytes and metamyelocytes) > 1% indicates that a LEFT SHIFT is Present. MCH (RBC) [Entitic mass] 26.1 pg 27.0-32.0 [facility] Nucleated RBC/100 WBC (Bld) [Ratio] 0 % 0-5 [facility] Laboratory - Hematology and Cell countson 03-02-2023 HbA1c (Bld) [Mass fraction] 7.3 % 4.2-6.3 [facility] MCHC Auto (RBC) [Mass/Vol]Or dered By: Massiel Gibbons on 03-02-2023 MCHC (RBC) [Mass/Vol] 31.3 g/dL 32-36 [facility] No Panel InformationOrdered By: Massiel Gibbons on 03-02-2023 Thyroid Stimulating Hormone (TSH) 2.85 uIU/mL 0.358-3.74 [facility] Platelets bldOrdered By: Griselda Gibbons on 03-02-2023 Platelets (Bld) [#/Vol] 284 10*3/uL 150-450 [facility] Serum or plasma cholesterol in HDL measurement (mass/volume)Ordered By: Massiel Gibbons on 03-02-2023 Cholesterol in HDL [Mass/Vol] 46 mg/dL >40 [facility] Comment on above: The drugs N-Acetylcy steine and Metamizole may falsely depress this assay. Reference Range HDL <40 mg/dL Low HDL Cholesterol HDL >or= 60 mg/dL High HDL Cholesterol Serum or plasma cholesterol in VLDL measurement (mass/volume)Ordered By: Massiel Gibbons on 03-02-2023 Cholesterol in VLDL [Mass/Vol] 27 mg/dL 5-40 [facility] Serum or plasma ferritin lizette surement (mass/volume)Ordered By: Massiel Gibbons on 03-02-2023 Ferritin [Mass/Vol] 23 ng/mL 8-252 [facility] Serum or plasma low density lipoprotein (LDL) cholesterol measurement (mass/volume)Ordered By: Massiel Gibbons on 03-02-2023 Cholesterol in LDL [Mass/Vol] 75 mg/dL 0-130 [facility] Blood hemoglobin measurement (mass/volume)Ordered By: Phu Espinoza on 02-08-2023 Hemoglobin (Bld) [Mass/Vol] 10.8 g/dL 12.0-15.0 [facility] Hematocrit Auto (Bld) [Volum e fraction]Ordered By: Phu Espinoza on 02-08-2023 Hematocrit (Bld) [Volume fraction] 33.9 % 37-47 [facility] Stool gastrointestinal hemog lobin detection by immunologic methodOrdered By: Phu Espinoza on 01-11-2023 Lower GI hemoglobin IA Ql (Stl) [facility] Lower GI hemoglobin IA Ql (Stl) [facility] Absolute lymphocyte countOrd ered By: Phu Espinoza on 01-09-2023 Lymphocytes Auto (Unsp spec) [#/Vol] 2.49 10*3/uL 0.83-4.51 [facility] Basophil percentageOrdered B y: Phu Espinoza on 01-09-2023 Basophils/100 WBC (Bld) 0.5 % 0-1 [facility] Eosinophils/100 WBC (Bld) 2.2 % 0-5 [facility] Neutrophils (Bld) [#/Vol] 4.3 10*3/uL 2.0-7.7 [facility] Neutrophils/100 WBC (Bld) 55.4 % 47-70 [facility] WBC (Bld) [#/Vol] 7.7 10*3/uL 4.4-11.0 [facility] Blood erythrocytes count (nu mber/volume)Ordered By: Phu Espinoza on 01-09-2023 RBC (Bld) [#/Vol] 4.35 10*6/uL 4.2-5.4 [facility] Blood hemoglobin measurement (mass/volume)Ordered By: Phu Espinoza on 01-09-2023 Hemoglobin (Bld) [Mass/Vol] 11.4 g/dL 12.0-15.0 [facility] Blood lymphocytes/100 leukoc ytesOrdered By: Phu Espinoza on 01-09-2023 Lymphocytes/100 WBC (Bld) 32.5 % 19-41 [facility] Blood monocytes/100 leukocyt esOrdered By: Phu Espinoza on 01-09-2023 Monocytes/100 WBC (Bld) 8.9 % 0-10 [facility] Blood platelet mean volumeOr dered By: Phu Espinoza on 01-09-2023 Platelet mean volume (Bld) [Entitic vol] 10.3 fL 6.2-12.0 [facility] Determination of erythrocyte mean corpuscular volume (MCV)Ordered By: Phu Espinoza on 01-09-2023 MCV (RBC) [Entitic vol] 85.5 fL 81-99 [facility] Hematocrit Auto (Bld) [Volum e fraction]Ordered By: Phu Espinoza on 01-09-2023 Hematocrit (Bld) [Volume fraction] 37.2 % 37-47 [facility] Hemoglobin in reticulocytes (mass per reticulocyte)Ordered By: Phu Espinoza on 01-09-2023 Hemoglobin (Reticulocytes) [Entitic mass] 29.3 pg 30-35 [facility] Iron measurement (mass/mass) Ordered By: Phu Espinoza on 01-09-2023 Iron (Unsp spec) [Mass/Mass] 44 ug/dL 50-170 [facility] Laboratory - Chemistry and C hemistry - challengeOrdered By: Phu Espinoza on 01-09-2023 Cobalamin (Vitamin B12) [Mass/Vol] 293 pg/mL 211-911 [facility] Laboratory - Hematology and Cell countsOrdered By: Phu Espinoza on 01-09-2023 Erythrocyte distribution width (RBC) [Entitic vol] 41.7 fL 35.1-43.9 [facility] Erythrocyte distribution width (RBC) [Ratio] 13.3 % 11.6-14.6 [facility] Immature granulocytes/100 WBC (Bld) 0.500 % 0.0-0.9 [facility] Comment on above: IG% - Immature Granu locytes (promyelocytes, myelocytes and metamyelocytes) > 1% indicates that a LEFT SHIFT is Present. MCH (RBC) [Entitic mass] 26.2 pg 27.0-32.0 [facility] Nucleated RBC/100 WBC (Bld) [Ratio] 0 % 0-5 [facility] MCHC Auto (RBC) [Mass/Vol]Or dered By: Phu Espinoza on 01-09-2023 MCHC (RBC) [Mass/Vol] 30.6 g/dL 32-36 [facility] No Panel InformationOrdered By: Phu Espinoza on 01-09-2023 Immature Reticulocyte Fraction 27.90 % 3.00-15.90 [facility] Reticulocyte Count 2.36 % 0.5-1.5 [facility] Total Iron Binding Capacity 482 ug/dL 250-450 [facility] Platelets bldOrdered By: Phu Espinoza on 01-09-2023 Platelets (Bld) [#/Vol] 271 10*3/uL 150-450 [facility] Serum or plasma ferritin lizette surement (mass/volume)Ordered By: Phu Espinoza on 01-09-2023 Ferritin [Mass/Vol] 18 ng/mL 8-252 [facility] Serum or plasma folate measu rement (mass/volume)Ordered By: Phu Espinoza on 01-09-2023 Folate [Mass/Vol] 13.00 ng/mL 3.1-55.4 [facility] Serum or plasma iron saturat ion measurement (mass fraction)Ordered By: Phu Espinoza on 01-09-2023 Iron saturation [Mass fraction] 9.1 % 15.0-55.0 [facility] Absolute lymphocyte countOrd ered By: Phu Espinoza on 01-03-2023 Lymphocytes Auto (Unsp spec) [#/Vol] 2.77 10*3/uL 0.83-4.51 [facility] Basophil percentageOrdered B y: Phu Espinoza on 01-03-2023 Basophils/100 WBC (Bld) 0.5 % 0-1 [facility] Bilirubin [Mass/Vol] 0.30 mg/dL 0.20-1.00 [facility] Comment on above: For patients on eltr ombopag therapy, use of Dimension [place] TBIL is not recommended. Chloride [Moles/Vol] 105 mmol/L 98-107 [facility] Eosinophils/100 WBC (Bld) 1.4 % 0-5 [facility] Glucose [Mass/Vol] 137 mg/dL 74-106 [facility] Comment on above: Fasting Glucose resu lt greater than or equal to 126 mg/dL suggests DIABETES MELLITUS per A.D.A. criteria. Neutrophils (Bld) [#/Vol] 4.1 10*3/uL 2.0-7.7 [facility] Neutrophils/100 WBC (Bld) 53.4 % 47-70 [facility] Potassium [Moles/Vol] 4.3 mmol/L 3.5-5.1 [facility] Protein [Mass/Vol] 7.5 g/dL 6.4-8.2 [facility] Sodium [Moles/Vol] 140 mmol/L 136-145 [facility] WBC (Bld) [#/Vol] 7.7 10*3/uL 4.4-11.0 [facility] Blood erythrocytes count (nu mber/volume)Ordered By: Phu Espinoza on 01-03-2023 RBC (Bld) [#/Vol] 4.14 10*6/uL 4.2-5.4 [facility] Blood hemoglobin measurement (mass/volume)Ordered By: Phu Espinoza on 01-03-2023 Hemoglobin (Bld) [Mass/Vol] 10.8 g/dL 12.0-15.0 [facility] Blood lymphocytes/100 leukoc ytesOrdered By: Phu Espinoza on 01-03-2023 Lymphocytes/100 WBC (Bld) 36.0 % 19-41 [facility] Blood monocytes/100 leukocyt esOrdered By: Phu Espinoza on 01-03-2023 Monocytes/100 WBC (Bld) 8.3 % 0-10 [facility] Blood platelet mean volumeOr dered By: Phu Espinoza on 01-03-2023 Platelet mean volume (Bld) [Entitic vol] 10.2 fL 6.2-12.0 [facility] Determination of erythrocyte mean corpuscular volume (MCV)Ordered By: Phu Espinoza on 01-03-2023 MCV (RBC) [Entitic vol] 83.6 fL 81-99 [facility] Hematocrit Auto (Bld) [Volum e fraction]Ordered By: [facility] Alexis on 01-03-2023 Hematocrit (Bld) [Volume fraction] 34.6 % 37-47 [facility] Laboratory - Chemistry and C hemistry - challengeOrdered By: [facility] 01-03-2023 ALP [Catalytic activity/Vol] 50 U/L 45-117 [facility] ALT [Catalytic activity/Vol] 31 U/L 13-56 [facility] CO2 [Moles/Vol] 26.0 mmol/L 21.0-32.0 [facility] Globulin (S) [Mass/Vol] 3.8 g/dL 2.2-4.2 [facility] Urea nitrogen/Creatinine [Mass ratio] 17.8 mg/mg 10-20 [facility] Laboratory - Hematology and Cell countsOrdered By: [facility] Alexis 01-03-2023 Erythrocyte distribution width (RBC) [Entitic vol] 40.8 fL 35.1-43.9 [facility] Erythrocyte distribution width (RBC) [Ratio] 13.4 % 11.6-14.6 [facility] Immature granulocytes/100 WBC (Bld) 0.400 % 0.0-0.9 [facility] Comment on above: IG% - Immature Granu locytes (promyelocytes, myelocytes and metamyelocytes) > 1% indicates that a LEFT SHIFT is Present. MCH (RBC) [Entitic mass] 26.1 pg 27.0-32.0 [facility] Nucleated RBC/100 WBC (Bld) [Ratio] 0 % 0-5 [facility] MCHC Auto (RBC) [Mass/Vol]Or dered By: Phu Alexis on 01-03-2023 MCHC (RBC) [Mass/Vol] 31.2 g/dL 32-36 [facility] No Panel InformationOrdered By: Phu Espinoza on 01-03-2023 Estimated GFR (MDRD) Amer 62 mL/min >60 [facility] Comment on above: GFR Calc Estimated GFR (MDRD) Non-Af Amer 51 mL/min >60 [facility] Comment on above: Non- GFR Calc Thyroid Stimulating Hormone (TSH) 6.16 uIU/mL 0.358-3.74 [facility] Platelets bldOrdered By: Phu Espinoza on 01-03-2023 Platelets (Bld) [#/Vol] 261 10*3/uL 150-450 [facility] Serum or plasma albumin thiago urement (mass/volume)Ordered By: Phu Espinoza on 01-03-2023 Albumin [Mass/Vol] 3.7 g/dL 3.2-5.0 [facility] Serum or plasma albumin/glob ulin mass ratioOrdered By: Phu Espinoza on 01-03-2023 Albumin/Globulin [Mass ratio] 1.0 {ratio} 0.9-2.4 [facility] Serum or plasma calcium thiago urement (mass/volume)Ordered By: Phu Espinoza on 01-03-2023 Calcium [Mass/Vol] 9.0 mg/dL 8.5-10.1 [facility] Serum or plasma creatinine m easurement (mass/volume)Ordered By: Phu Espinoza on 01-03-2023 Creatinine [Mass/Vol] 1.18 mg/dL 0.55-1.02 [facility] Comment on above: The validity of the calculated GFR & GFRAA in patients over 70 years has not been determined. Clinical correlation is essential. Serum or plasma urea nitroge n measurement (mass/volume)Ordered By: Phu Espinoza on 01-03-2023 Urea nitrogen [Mass/Vol] 21 mg/dL 7-18 [facility] Thin prep Papanicolaou smear with manual screeningOrdered By: Phu Espinoza on 01-03-2023 Thin prep Papanicolaou smear with manual screening 30 U/L 15-37 [facility] Thin prep Papanicolaou smear with manual screening 9 5-15 [facility] Laboratory - Hematology and Cell countson 11-17-2022 HbA1c (Bld) [Mass fraction] 7.1 % 4.2-6.3 [facility] Basophil percentageOrdered B y: Massiel Gibbons on 08-17-2022 Bilirubin [Mass/Vol] 0.70 mg/dL 0.20-1.00 [facility] Comment on above: For patients on eltr ombopag therapy, use of Dimension [place] TBIL is not recommended. Chloride [Moles/Vol] 105 mmol/L 98-107 [facility] Glucose [Mass/Vol] 167 mg/dL 74-106 [facility] Comment on above: Fasting Glucose resu lt greater than or equal to 126 mg/dL suggests DIABETES MELLITUS per A.D.A. criteria. Potassium [Moles/Vol] 4.3 mmol/L 3.5-5.1 [facility] Protein [Mass/Vol] 8.1 g/dL 6.4-8.2 [facility] Sodium [Moles/Vol] 138 mmol/L 136-145 [facility] Laboratory - Chemistry and C hemistry - challengeOrdered By: Massiel Gibbons on 08-17-2022 ALP [Catalytic activity/Vol] 54 U/L 45-117 [facility] ALT [Catalytic activity/Vol] 31 U/L 13-56 [facility] CO2 [Moles/Vol] 26.0 mmol/L 21.0-32.0 [facility] Globulin (S) [Mass/Vol] 4.2 g/dL 2.2-4.2 [facility] Urea nitrogen/Creatinine [Mass ratio] 25.2 mg/mg 10-20 [facility] No Panel InformationOrdered By: Massiel Gibbons on 08-17-2022 Estimated GFR (MDRD) Amer 72 mL/min >60 [facility] Comment on above: GFR Calc Estimated GFR (MDRD) Non-Af Amer 60 mL/min >60 [facility] Comment on above: Non- GFR Calc Thyroid Stimulating Hormone (TSH) 3.80 uIU/mL 0.358-3.74 [facility] Serum or plasma albumin thiago urement (mass/volume)Ordered By: Massiel Gibbons on 08-17-2022 Albumin [Mass/Vol] 3.9 g/dL 3.2-5.0 [facility] Serum or plasma albumin/glob ulin mass ratioOrdered By: Massiel Gibbons on 08-17-2022 Albumin/Globulin [Mass ratio] 0.9 {ratio} 0.9-2.4 [facility] Serum or plasma calcium thiago urement (mass/volume)Ordered By: Massiel Gibbons on 08-17-2022 Calcium [Mass/Vol] 10.0 mg/dL 8.5-10.1 [facility] Serum or plasma creatinine m easurement (mass/volume)Ordered By: Massiel Gibbons on 08-17-2022 Creatinine [Mass/Vol] 1.03 mg/dL 0.55-1.02 [facility] Comment on above: The validity of the calculated GFR & GFRAA in patients over 70 years has not been determined. Clinical correlation is essential. Serum or plasma urea nitroge n measurement (mass/volume)Ordered By: Massiel Gibbons on 08-17-2022 Urea nitrogen [Mass/Vol] 26 mg/dL 7-18 [facility] Thin prep Papanicolaou smear with manual screeningOrdered By: Massiel Gibbons on 08-17-2022 Thin prep Papanicolaou smear with manual screening 28 U/L 15-37 [facility] Thin prep Papanicolaou smear with manual screening 7 5-15 [facility] Absolute lymphocyte countOrd ered By: Dr. Espinoza on 06-28-2022 Lymphocytes Auto (Unsp spec) [#/Vol] 2.68 10*3/uL 0.83-4.51 [facility] Basophil percentageOrdered B y: Dr. Espinoza on 06-28-2022 Basophils/100 WBC (Bld) 0.7 % 0-1 [facility] Bilirubin [Mass/Vol] 0.30 mg/dL 0.20-1.00 [facility] Comment on above: For patients on eltr ombopag therapy, use of Dimension [place] TBIL is not recommended. Chloride [Moles/Vol] 107 mmol/L 98-107 [facility] Eosinophils/100 WBC (Bld) 2.4 % 0-5 [facility] Glucose [Mass/Vol] 138 mg/dL 74-106 [facility] Comment on above: Fasting Glucose resu lt greater than or equal to 126 mg/dL suggests DIABETES MELLITUS per A.D.A. criteria. Neutrophils (Bld) [#/Vol] 3.8 10*3/uL 2.0-7.7 [facility] Neutrophils/100 WBC (Bld) 50.6 % 47-70 [facility] Potassium [Moles/Vol] 4.1 mmol/L 3.5-5.1 [facility] Protein [Mass/Vol] 8.0 g/dL 6.4-8.2 [facility] Sodium [Moles/Vol] 139 mmol/L 136-145 [facility] WBC (Bld) [#/Vol] 7.4 10*3/uL 4.4-11.0 [facility] Blood erythrocytes count (nu mber/volume)Ordered By: Dr. Espinoza on 06-28-2022 RBC (Bld) [#/Vol] 4.33 10*6/uL 4.2-5.4 [facility] Blood hemoglobin measurement (mass/volume)Ordered By: Dr. Espinoza on 06-28-2022 Hemoglobin (Bld) [Mass/Vol] 11.4 g/dL 12.0-15.0 [facility] Blood lymphocytes/100 leukoc ytesOrdered By: Dr. Espinoza on 06-28-2022 Lymphocytes/100 WBC (Bld) 36.1 % 19-41 [facility] Blood monocytes/100 leukocyt esOrdered By: Dr. Espinoza on 06-28-2022 Monocytes/100 WBC (Bld) 9.8 % 0-10 [facility] Blood platelet mean volumeOr dered By: Dr. Espinoza on 06-28-2022 Platelet mean volume (Bld) [Entitic vol] 10.1 fL 6.2-12.0 [facility] Determination of erythrocyte mean corpuscular volume (MCV)Ordered By: Dr. Espinoza on 06-28-2022 MCV (RBC) [Entitic vol] 83.6 fL 81-99 [facility] Hematocrit Auto (Bld) [Volum e fraction]Ordered By: Dr. Espinoza on 06-28-2022 Hematocrit (Bld) [Volume fraction] 36.2 % 37-47 [facility] Laboratory - Chemistry and C hemistry - challengeOrdered By: Dr. Espinoza on 06-28-2022 ALP [Catalytic activity/Vol] 52 U/L 45-117 [facility] ALT [Catalytic activity/Vol] 29 U/L 13-56 [facility] CO2 [Moles/Vol] 28.0 mmol/L 21.0-32.0 [facility] Globulin (S) [Mass/Vol] 4.2 g/dL 2.2-4.2 [facility] Urea nitrogen/Creatinine [Mass ratio] 21.7 mg/mg 10-20 [facility] Laboratory - Hematology and Cell countsOrdered By: Dr. Espinoza on 06-28-2022 Erythrocyte distribution width (RBC) [Entitic vol] 43.9 fL 35.1-43.9 [facility] Erythrocyte distribution width (RBC) [Ratio] 14.4 % 11.6-14.6 [facility] Immature granulocytes/100 WBC (Bld) 0.400 % 0.0-0.9 [facility] Comment on above: IG% - Immature Granu locytes (promyelocytes, myelocytes and metamyelocytes) > 1% indicates that a LEFT SHIFT is Present. MCH (RBC) [Entitic mass] 26.3 pg 27.0-32.0 [facility] Nucleated RBC/100 WBC (Bld) [Ratio] 0 % 0-5 [facility] MCHC Auto (RBC) [Mass/Vol]Or dered By: Dr. Espinoza on 06-28-2022 MCHC (RBC) [Mass/Vol] 31.5 g/dL 32-36 [facility] No Panel InformationOrdered By: Dr. Espinoza on 06-28-2022 Estimated GFR (MDRD) Amer 56 mL/min >60 [facility] Comment on above: GFR Calc Estimated GFR (MDRD) Non-Af Amer 46 mL/min >60 [facility] Comment on above: Non- GFR Calc Thyroid Stimulating Hormone (TSH) 4.74 uIU/mL 0.358-3.74 [facility] Platelets bldOrdered By: Dr. Espinoza on 06-28-2022 Platelets (Bld) [#/Vol] 292 10*3/uL 150-450 [facility] Serum or plasma albumin thiago urement (mass/volume)Ordered By: Dr. Espinoza on 06-28-2022 Albumin [Mass/Vol] 3.8 g/dL 3.2-5.0 [facility] Serum or plasma albumin/glob ulin mass ratioOrdered By: Dr. Espinoza on 06-28-2022 Albumin/Globulin [Mass ratio] 0.9 {ratio} 0.9-2.4 [facility] Serum or plasma calcium thiago urement (mass/volume)Ordered By: Dr. Espinoza on 06-28-2022 Calcium [Mass/Vol] 9.2 mg/dL 8.5-10.1 [facility] Serum or plasma creatinine m easurement (mass/volume)Ordered By: Dr. Espinoza on 06-28-2022 Creatinine [Mass/Vol] 1.29 mg/dL 0.55-1.02 [facility] Comment on above: The validity of the calculated GFR & GFRAA in patients over 70 years has not been determined. Clinical correlation is essential. Serum or plasma urea nitroge n measurement (mass/volume)Ordered By: Dr. Espinoza on 06-28-2022 Urea nitrogen [Mass/Vol] 28 mg/dL 7-18 [facility] Thin prep Papanicolaou smear with manual screeningOrdered By: Dr. Espinoza on 06-28-2022 Thin prep Papanicolaou smear with manual screening 20 U/L 15-37 [facility] Thin prep Papanicolaou smear with manual screening 4 5-15 [facility] Laboratory - Hematology and Cell countson 05-11-2022 HbA1c (Bld) [Mass fraction] 7.6 % [facility] Basophil percentageon 2021 Bilirubin [Mass/Vol] 0.20 mg/dL 0.20-1.00 [facility] Work Phone: Comment on above: For patients on eltr ombopag therapy, use of Dimension [place] TBIL is not recommended. Chloride [Moles/Vol] 107 mmol/L 98-107 [facility] Work Phone: Glucose [Mass/Vol] 137 mg/dL 74-106 [facility] Work Phone: Comment on above: Fasting Glucose resu lt greater than or equal to 126 mg/dL suggests DIABETES MELLITUS per A.D.A. criteria. Potassium [Moles/Vol] 3.5 mmol/L 3.5-5.1 [facility] Work Phone: [phone] Protein [Mass/Vol] 7.2 g/dL 6.4-8.2 [facility] Work Phone: Sodium [Moles/Vol] 142 mmol/L 136-145 [facility] Work Phone: Laboratory - Chemistry and C hemistry - challengeon 02-08-2022 ALP [Catalytic activity/Vol] 65 U/L 45-117 [facility] Work Phone: ALT [Catalytic activity/Vol] 45 U/L 13-56 [facility] Work Phone: CO2 [Moles/Vol] 26.0 mmol/L 21.0-32.0 [facility] Work Phone: Globulin (S) [Mass/Vol] 3.8 g/dL 2.2-4.2 [facility] Work Phone: [phone] Urea nitrogen/Creatinine [Mass ratio] 13.8 mg/mg 10-20 [facility] Work Phone: No Panel Informationon 02-08 Estimated GFR (MDRD) Amer 88 mL/min >60 [facility] Work Phone: Comment on above: GFR Calc Estimated GFR (MDRD) Non-Af Amer 73 mL/min >60 [facility] Work Phone: Comment on above: Non- GFR Calc Hepatitis A IgM Antibody Negative Negative [facility] Work Phone: Hepatitis B Core IgM Antibody Negative Negative [facility] Work Phone: [phone] Hepatitis C Antibody (EIA) 0.1 s/co ratio 0.0-0.9 [facility] Work Phone: [phone] Hepatitis C Antibody Comment Comment . [facility] Work Phone: Comment on above: NegativeNot infected with HCV, unless recent infection issuspected or other evidence exists to indicate HCVinfection.Performed at: [place] [id number] Director: Spencer Carbajal PhD, Phone: [phone] Serum or plasma albumin thiago urement (mass/volume)on 02-08-2022 Albumin [Mass/Vol] 3.4 g/dL 3.2-5.0 [facility] Work Phone: [phone] Serum or plasma albumin/glob ulin mass ratioon 02-08-2022 Albumin/Globulin [Mass ratio] 0.9 {ratio} 0.9-2.4 [facility] Work Phone: [phone] Serum or plasma calcium thiago urement (mass/volume)on 02-08-2022 Calcium [Mass/Vol] 8.0 mg/dL 8.5-10.1 [facility] Work Phone: [phone] Serum or plasma creatinine m easurement (mass/volume)on 02-08-2022 Creatinine [Mass/Vol] 0.87 mg/dL 0.55-1.02 [facility] Work Phone: [phone] Comment on above: The validity of the calculated GFR & GFRAA in patients over 70 years has not been determined. Clinical correlation is essential. Serum or plasma hepatitis B virus surface antigen detection by immunoassayon 02-08-2022 HBV surface Ag IA Ql Negative Negative [facility] Work Phone: [phone] Serum or plasma urea nitroge n measurement (mass/volume)on 02-08-2022 Urea nitrogen [Mass/Vol] 12 mg/dL 7-18 [facility] Work Phone: [phone] Thin prep Papanicolaou smear with manual screeningon 02-08-2022 Thin prep Papanicolaou smear with manual screening 25 U/L 15-37 [facility] Work Phone: [phone] Thin prep Papanicolaou smear with manual screening 9 5-15 [facility] Work Phone: [phone] Absolute lymphocyte counton 02-05-2022 Lymphocytes Auto (Unsp spec) [#/Vol] 2.34 10*3/uL 0.83-4.51 [facility] Work Phone: [phone] Basophil percentageon 2021 Basophils/100 WBC (Bld) 0.2 % 0-1 [facility] Work Phone: Bilirubin [Mass/Vol] 0.30 mg/dL 0.20-1.00 [facility] Work Phone: Comment on above: For patients on eltr ombopag therapy, use of Dimension [place] TBIL is not recommended. Chloride [Moles/Vol] 110 mmol/L 98-107 [facility] Work Phone: Eosinophils/100 WBC (Bld) 4.4 % 0-5 [facility] Work Phone: Glucose [Mass/Vol] 123 mg/dL 74-106 [facility] Work Phone: Comment on above: Fasting Glucose resu lt from 100 to 125 mg/dL suggests IMPAIRED HOMEOSTASIS per A.D.A. criteria. Neutrophils (Bld) [#/Vol] 1.7 10*3/uL 2.0-7.7 [facility] Work Phone: Neutrophils/100 WBC (Bld) 33.8 % 47-70 [facility] Work Phone: Potassium [Moles/Vol] 3.4 mmol/L 3.5-5.1 [facility] Work Phone: Protein [Mass/Vol] 5.9 g/dL 6.4-8.2 [facility] Work Phone: Sodium [Moles/Vol] 143 mmol/L 136-145 [facility] Work Phone: WBC (Bld) [#/Vol] 5.0 10*3/uL 4.4-11.0 [facility] Work Phone: Blood erythrocytes count (nu mber/volume)on 02-05-2022 RBC (Bld) [#/Vol] 3.91 10*6/uL 4.2-5.4 [facility] Work Phone: Blood hemoglobin measurement (mass/volume)on 02-05-2022 Hemoglobin (Bld) [Mass/Vol] 10.0 g/dL 12.0-15.0 [facility] Work Phone: Blood lymphocytes/100 leukoc yteson 02-05-2022 Lymphocytes/100 WBC (Bld) 47.3 % 19-41 [facility] Work Phone: Blood monocytes/100 leukocyt eson 02-05-2022 Monocytes/100 WBC (Bld) 13.9 % 0-10 [facility] Work Phone: [phone] Blood platelet mean volumeon 02-05-2022 Platelet mean volume (Bld) [Entitic vol] 10.1 fL 6.2-12.0 [facility] Work Phone: Determination of erythrocyte mean corpuscular volume (MCV)on 02-05-2022 MCV (RBC) [Entitic vol] 82.6 fL 81-99 [facility] Work Phone: Direct bilirubinon Bilirubin.direct [Mass/Vol] 0.15 mg/dL 0.00-0.30 [facility] Work Phone: Glucose Glucometer (BldC) [M ass/Vol]on 02-05-2022 Glucose [Mass/Vol] 133 mg/dL 74-106 [facility] Work Phone: Comment on above: MANAGEMENT OF PATIEN T CARE PER NURSING PROTOCOL Hematocrit Auto (Bld) [Volum e fraction]on 02-05-2022 Hematocrit (Bld) [Volume fraction] 32.3 % 37-47 [facility] Work Phone: Laboratory - Chemistry and C hemistry - challengeon 02-05-2022 ALP [Catalytic activity/Vol] 50 U/L 45-117 [facility] Work Phone: ALT [Catalytic activity/Vol] 72 U/L 13-56 [facility] Work Phone: [phone] CO2 [Moles/Vol] 30.0 mmol/L 21.0-32.0 [facility] Work Phone: Globulin (S) [Mass/Vol] 3.2 g/dL 2.2-4.2 [facility] Work Phone: [phone] Urea nitrogen/Creatinine [Mass ratio] 12.4 mg/mg 10-20 [facility] Work Phone: [phone] Laboratory - Hematology and Cell countson 02-05-2022 Erythrocyte distribution width (RBC) [Entitic vol] 41.7 fL 35.1-43.9 [facility] Work Phone: [phone] Erythrocyte distribution width (RBC) [Ratio] 14.0 % 11.6-14.6 [facility] Work Phone: [phone] Immature granulocytes/100 WBC (Bld) 0.400 % 0.0-0.9 [facility] Work Phone: [phone] Comment on above: IG% - Immature Granu locytes (promyelocytes, myelocytes and metamyelocytes) > 1% indicates that a LEFT SHIFT is Present. MCH (RBC) [Entitic mass] 25.6 pg 27.0-32.0 [facility] Work Phone: [phone] Nucleated RBC/100 WBC (Bld) [Ratio] 0 % 0-5 [facility] Work Phone: [phone] MCHC Auto (RBC) [Mass/Vol]on 02-05-2022 MCHC (RBC) [Mass/Vol] 31.0 g/dL 32-36 [facility] Work Phone: [phone] Comment on above: Delta: 33.0 on 02/04 No Panel Informationon 02-05 Estimated Creatinine Clearance Calc 72.72 ml/min [facility] Work Phone: [phone] Estimated GFR (MDRD) Amer 86 mL/min >60 [facility] Work Phone: [phone] Comment on above: GFR Calc Estimated GFR (MDRD) Non-Af Amer 71 mL/min >60 [facility] Work Phone: [phone] Comment on above: Non- GFR Calc Platelets bldon 02-05-2022 Platelets (Bld) [#/Vol] 190 10*3/uL 150-450 [facility] Work Phone: [phone] Serum or plasma albumin thiago urement (mass/volume)on 02-05-2022 Albumin [Mass/Vol] 2.7 g/dL 3.2-5.0 [facility] Work Phone: [phone] Serum or plasma calcium thiago urement (mass/volume)on 02-05-2022 Calcium [Mass/Vol] 7.8 mg/dL 8.5-10.1 [facility] Work Phone: [phone] Serum or plasma creatinine m easurement (mass/volume)on 02-05-2022 Creatinine [Mass/Vol] 0.89 mg/dL 0.55-1.02 [facility] Work Phone: Comment on above: The validity of the calculated GFR & GFRAA in patients over 70 years has not been determined. Clinical correlation is essential. Serum or plasma urea nitroge n measurement (mass/volume)on 02-05-2022 Urea nitrogen [Mass/Vol] 11 mg/dL 7-18 [facility] Work Phone: [phone] Thin prep Papanicolaou smear with manual screeningon 02-05-2022 Thin prep Papanicolaou smear with manual screening 53 U/L 15-37 [facility] Work Phone: [phone] Thin prep Papanicolaou smear with manual screening 3 5-15 [facility] Work Phone: [phone] Iron measurement (mass/mass) on 02-04-2022 Iron (Unsp spec) [Mass/Mass] 29 ug/dL 50-170 [facility] Work Phone: [phone] Panel Informationon 02-04 Total Iron Binding Capacity 373 ug/dL 250-450 [facility] Work Phone: [phone] Serum or plasma albumin/glob ulin mass ratioon 02-04-2022 Albumin/Globulin [Mass ratio] 0.9 {ratio} 0.9-2.4 [facility] Work Phone: [phone] Serum or plasma ferritin lizette surement (mass/volume)on 02-04-2022 Ferritin [Mass/Vol] 36 ng/mL 8-252 [facility] Work Phone: Serum or plasma iron saturat ion measurement (mass fraction)on 02-04-2022 Iron saturation [Mass fraction] 7.8 % 15.0-55.0 [facility] Work Phone: Absolute lymphocyte counton 02-03-2022 Lymphocytes Auto (Unsp spec) [#/Vol] 0.92 10*3/uL 0.83-4.51 [facility] Work Phone: Basophil percentageon 2021 Basophil percentage 0-5 SEEN /hpf 0-5 [facility] Work Phone: Basophils/100 WBC (Bld) 0.1 % 0-1 [facility] Work Phone: Bilirubin [Mass/Vol] 0.50 mg/dL 0.20-1.00 [facility] Work Phone: Comment on above: For patients on eltr ombopag therapy, use of Dimension [place] TBIL is not recommended. Chloride [Moles/Vol] 106 mmol/L 98-107 [facility] Work Phone: Eosinophils/100 WBC (Bld) 2.0 % 0-5 [facility] Work Phone: Glucose [Mass/Vol] 141 mg/dL 74-106 [facility] Work Phone: Comment on above: Fasting Glucose resu lt greater than or equal to 126 mg/dL suggests DIABETES MELLITUS per A.D.A. criteria. Lactate [Moles/Vol] 1.3 mmol/L 0.4-2.0 [facility] Work Phone: Neutrophils (Bld) [#/Vol] 7.0 10*3/uL 2.0-7.7 [facility] Work Phone: Neutrophils/100 WBC (Bld) 81.0 % 47-70 [facility] Work Phone: Potassium [Moles/Vol] 4.1 mmol/L 3.5-5.1 [facility] Work Phone: Protein [Mass/Vol] 7.2 g/dL 6.4-8.2 [facility] Work Phone: Sodium [Moles/Vol] 140 mmol/L 136-145 [facility] Work Phone: WBC (Bld) [#/Vol] 8.6 10*3/uL 4.4-11.0 [facility] Work Phone: Beta hCG serum qualon 2021 Beta HCG ( test) Ql Negative [facility] Work Phone: Bilirubin Test strip Ql (U)o n 02-03-2022 Bilirubin Ql (U) Negative Negative [facility] Work Phone: Blood erythrocytes count (nu mber/volume)on 02-03-2022 RBC (Bld) [#/Vol] 4.48 10*6/uL 4.2-5.4 [facility] Work Phone: Blood hemoglobin measurement (mass/volume)on 02-03-2022 Hemoglobin (Bld) [Mass/Vol] 11.5 g/dL 12.0-15.0 [facility] Work Phone: Blood lymphocytes/100 leukoc yteson 02-03-2022 Lymphocytes/100 WBC (Bld) 10.7 % 19-41 [facility] Work Phone: Blood monocytes/100 leukocyt eson 02-03-2022 Monocytes/100 WBC (Bld) 5.9 % 0-10 [facility] Work Phone: Blood platelet mean volumeon 02-03-2022 Platelet mean volume (Bld) [Entitic vol] 10.0 fL 6.2-12.0 [facility] Work Phone: Determination of erythrocyte mean corpuscular volume (MCV)on 02-03-2022 MCV (RBC) [Entitic vol] 80.4 fL 81-99 [facility] Work Phone: Hematocrit Auto (Bld) [Volum e fraction]on 02-03-2022 Hematocrit (Bld) [Volume fraction] 36.0 % 37-47 [facility] Work Phone: INR in Blood by Coagulation assayon 02-03-2022 INR Coag (Bld) [Relative time] 1.1 {INR} [facility] Work Phone: Ketones Test strip Ql (U)on 02-03-2022 Ketones Ql (U) 5 mg/dl Negative [facility] Work Phone: Laboratory - Chemistry and C hemistry - challengeon 02-03-2022 ALP [Catalytic activity/Vol] 50 U/L 45-117 [facility] Work Phone: ALT [Catalytic activity/Vol] 25 U/L 13-56 [facility] Work Phone: CO2 [Moles/Vol] 24.0 mmol/L 21.0-32.0 [facility] Work Phone: Globulin (S) [Mass/Vol] 3.7 g/dL 2.2-4.2 [facility] Work Phone: Lipase [Catalytic activity/Vol] 382 U/L 73-393 [facility] Work Phone: Urea nitrogen/Creatinine [Mass ratio] 19.4 mg/mg 10-20 [facility] Work Phone: Laboratory - Coagulationon 04-05-2021 aPTT Coag (Bld) [Time] 28.7 s 24.1-36.[address] [facility] Work Phone: PT Coag (PPP) [Time] 13.5 s 11.7-14.9 [facility] Work Phone: Laboratory - Hematology and Cell countson 02-03-2022 Erythrocyte distribution width (RBC) [Entitic vol] 38.9 fL 35.1-43.9 [facility] Work Phone: Erythrocyte distribution width (RBC) [Ratio] 13.4 % 11.6-14.6 [facility] Work Phone: Immature granulocytes/100 WBC (Bld) 0.300 % 0.0-0.9 [facility] Work Phone: Comment on above: IG% - Immature Granu locytes (promyelocytes, myelocytes and metamyelocytes) > 1% indicates that a LEFT SHIFT is Present. MCH (RBC) [Entitic mass] 25.7 pg 27.0-32.0 [facility] Work Phone: Nucleated RBC/100 WBC (Bld) [Ratio] 0 % 0-5 [facility] Work Phone: MCHC Auto (RBC) [Mass/Vol]on 02-03-2022 MCHC (RBC) [Mass/Vol] 31.9 g/dL 32-36 [facility] Work Phone: Mucus LM Ql (Urine sed)on Mucus Ql (Urine sed) 0 SEEN /hpf [facility] Work Phone: Nitrite Test strip Ql (U)on 02-03-2022 Nitrite Ql (U) Negative Negative [facility] Work Phone: No Panel Informationon 02-03 Estimated Creatinine Clearance Calc 73.55 ml/min [facility] Work Phone: Estimated GFR (MDRD) Amer 87 mL/min >60 [facility] Work Phone: Comment on above: GFR Calc Estimated GFR (MDRD) Non-Af Amer 72 mL/min >60 [facility] Work Phone: Comment on above: Non- GFR Calc Platelets bldon 02-03-2022 Platelets (Bld) [#/Vol] 222 10*3/uL 150-450 [facility] Work Phone: Protein Test strip Ql (U)on 02-03-2022 Protein Ql (U) 30 mg/dl Negative [facility] Work Phone: Serum heterophile antibody d etectionon 02-03-2022 Heterophile Ab Ql (S) Negative Negative [facility] Work Phone: [phone] Serum or plasma albumin thiago urement (mass/volume)on 02-03-2022 Albumin [Mass/Vol] 3.5 g/dL 3.2-5.0 [facility] Work Phone: Serum or plasma albumin/glob ulin mass ratioon 02-03-2022 Albumin/Globulin [Mass ratio] 0.9 {ratio} 0.9-2.4 [facility] Work Phone: Serum or plasma calcium thiago urement (mass/volume)on 02-03-2022 Calcium [Mass/Vol] 8.8 mg/dL 8.5-10.1 [facility] Work Phone: Serum or plasma creatinine m easurement (mass/volume)on 02-03-2022 Creatinine [Mass/Vol] 0.88 mg/dL 0.55-1.02 [facility] Work Phone: Comment on above: The validity of the calculated GFR & GFRAA in patients over 70 years has not been determined. Clinical correlation is essential. Serum or plasma urea nitroge n measurement (mass/volume)on 02-03-2022 Urea nitrogen [Mass/Vol] 17 mg/dL 7-18 [facility] Work Phone: Serum procalcitonin measurem enton 02-03-2022 Procalcitonin [Mass/Vol] 0.08 ng/mL 0.00-0.09 [facility] Work Phone: Comment on above: [...] Ql (Urine sed) 0-5 SEEN /hpf 5-10 [facility] Work Phone: Thin prep Papanicolaou smear with manual screeningon 02-03-2022 Thin prep Papanicolaou smear with manual screening 23 U/L 15-37 [facility] Work Phone: [phone] Thin prep Papanicolaou smear with manual screening 10 5-15 [facility] Work Phone: Urine blood detectionon 01-25 RBC Ql (U) Negative Negative [facility] Work Phone: [phone] RBC Ql (U) 0 SEEN /hpf 0-5 [facility] Work Phone: Urine clarityon 02-03-2022 Clarity (U) Sl. Cloudy Clear [facility] Work Phone: Urine color determinationon 02-03-2022 Color (U) Yellow Yellow [facility] Work Phone: Urine glucose detectionon Glucose Ql (U) Normal mg/dl Normal [facility] Work Phone: Urine leukocyte esterase det ection by dipstickon 02-03-2022 Leukocyte esterase Test strip Ql (U) 25 /ul Negative [facility] Work Phone: Urine pHon 02-03-2022 pH (U) 8.0 [pH] 5.0 - 8.0 [facility] Work Phone: Urine sediment bacteria coun t by microscopy (number/high power field)on 02-03-2022 Bacteria LM.HPF (Urine sed) [#/Area] RARE /hpf None Seen [facility] Work Phone: Urine specific gravity measu rementon 02-03-2022 Specific gravity (U) [Rel density] 1.010 1.002-1.030 [facility] Work Phone: Urobilinogen Auto test strip Ql (U)on 02-03-2022 Urobilinogen Ql (U) Normal mg/dl Normal [facility] Work Phone: Absolute lymphocyte counton 12-21-2021 Lymphocytes Auto (Unsp spec) [#/Vol] 2.78 10*3/uL 0.83-4.51 [facility] Work Phone: Basophil percentageon 2021 Basophils/100 WBC (Bld) 0.5 % 0-1 [facility] Work Phone: Bilirubin [Mass/Vol] 0.40 mg/dL 0.20-1.00 [facility] Work Phone: Comment on above: For patients on eltr ombopag therapy, use of Dimension [place] TBIL is not recommended. Chloride [Moles/Vol] 106 mmol/L 98-107 [facility] Work Phone: Eosinophils/100 WBC (Bld) 2.2 % 0-5 [facility] Work Phone: Glucose [Mass/Vol] 145 mg/dL 74-106 [facility] Work Phone: Comment on above: Fasting Glucose resu lt greater than or equal to 126 mg/dL suggests DIABETES MELLITUS per A.D.A. criteria. Neutrophils (Bld) [#/Vol] 4.7 10*3/uL 2.0-7.7 [facility] Work Phone: Neutrophils/100 WBC (Bld) 56.6 % 47-70 [facility] Work Phone: Potassium [Moles/Vol] 4.2 mmol/L 3.5-5.1 [facility] Work Phone: Protein [Mass/Vol] 7.9 g/dL 6.4-8.2 [facility] Work Phone: Sodium [Moles/Vol] 141 mmol/L 136-145 [facility] Work Phone: WBC (Bld) [#/Vol] 8.2 10*3/uL 4.4-11.0 [facility] Work [facility]: Blood erythrocytes count (nu mber/volume)on 12-21-2021 RBC (Bld) [#/Vol] 4.41 10*6/uL 4.2-5.4 [facility] Work Phone: Blood hemoglobin measurement (mass/volume)on 12-21-2021 Hemoglobin (Bld) [Mass/Vol] 11.8 g/dL 12.0-15.0 [facility] Work Phone: Blood lymphocytes/100 leukoc yteson 12-21-2021 Lymphocytes/100 WBC (Bld) 33.7 % 19-41 [facility] Work Phone: Blood monocytes/100 leukocyt eson 12-21-2021 Monocytes/100 WBC (Bld) 6.8 % 0-10 [facility] Work Phone: Blood platelet mean volumeon 12-21-2021 Platelet mean volume (Bld) [Entitic vol] 10.6 fL 6.2-12.0 [facility] Work Phone: Determination of erythrocyte mean corpuscular volume (MCV)on 12-21-2021 MCV (RBC) [Entitic vol] 80.7 fL 81-99 [facility] Work Phone: Hematocrit Auto (Bld) [Volum e fraction]on 12-21-2021 Hematocrit (Bld) [Volume fraction] 35.6 % 37-47 [facility] Work Phone: Laboratory - Chemistry and C hemistry - challengeon 12-21-2021 ALP [Catalytic activity/Vol] 49 U/L 45-117 [facility] Work Phone: ALT [Catalytic activity/Vol] 25 U/L 13-56 [facility] Work Phone: CO2 [Moles/Vol] 27.0 mmol/L 21.0-32.0 [facility] Work Phone: Globulin (S) [Mass/Vol] 4.1 g/dL 2.2-4.2 [facility] Work Phone: [phone] Urea nitrogen/Creatinine [Mass ratio] 21.9 mg/mg 10-20 [facility] Work Phone: [phone] Laboratory - Hematology and Cell countson 12-21-2021 Erythrocyte distribution width (RBC) [Entitic vol] 38.6 fL 35.1-43.9 [facility] Work Phone: [phone] Erythrocyte distribution width (RBC) [Ratio] 13.3 % 11.6-14.6 [facility] Work Phone: [phone] Immature granulocytes/100 WBC (Bld) 0.200 % 0.0-0.9 [facility] Work Phone: [phone] Comment on above: IG% - Immature Granu locytes (promyelocytes, myelocytes and metamyelocytes) > 1% indicates that a LEFT SHIFT is Present. MCH (RBC) [Entitic mass] 26.8 pg 27.0-32.0 [facility] Work Phone: [phone] Nucleated RBC/100 WBC (Bld) [Ratio] 0 % 0-5 [facility] Work Phone: [phone] MCHC Auto (RBC) [Mass/Vol]on 12-21-2021 MCHC (RBC) [Mass/Vol] 33.1 g/dL 32-36 [facility] Work Phone: No Panel Informationon 12-21 Estimated GFR (MDRD) Amer 79 mL/min >60 [facility] Work Phone: [phone] Comment on above: GFR Calc Estimated GFR (MDRD) Non-Af Amer 65 mL/min >60 [facility] Work Phone: [phone] Comment on above: Non- GFR Calc Thyroid Stimulating Hormone (TSH) 2.66 uIU/mL 0.358-3.74 [facility] Work Phone: Platelets bldon 12-21-2021 Platelets (Bld) [#/Vol] 285 10*3/uL 150-450 [facility] Work Phone: Serum or plasma albumin thiago urement (mass/volume)on 12-21-2021 Albumin [Mass/Vol] 3.8 g/dL 3.2-5.0 [facility] Work Phone: [phone] Serum or plasma albumin/glob ulin mass ratioon 12-21-2021 Albumin/Globulin [Mass ratio] 0.9 {ratio} 0.9-2.4 [facility] Work Phone: [phone] Serum or plasma calcium thiago urement (mass/volume)on 12-21-2021 Calcium [Mass/Vol] 9.2 mg/dL 8.5-10.1 [facility] Work Phone: [phone] Serum or plasma creatinine m easurement (mass/volume)on 12-21-2021 Creatinine [Mass/Vol] 0.96 mg/dL 0.55-1.02 [facility] Work Phone: Comment on above: The validity of the calculated GFR & GFRAA in patients over 70 years has not been determined. Clinical correlation is essential. Serum or plasma urea nitroge n measurement (mass/volume)on 12-21-2021 Urea nitrogen [Mass/Vol] 21 mg/dL 7-18 [facility] Work Phone: [phone] Thin prep Papanicolaou smear with manual screeningon 12-21-2021 Thin prep Papanicolaou smear with manual screening 20 U/L 15-37 [facility] Work Phone: Thin prep Papanicolaou smear with manual screening 8 5-15 [facility] Work Phone: [phone] Laboratory - Chemistry and C hemistry - challengeon 10-20-2021 Free T4 [Mass/Vol] 0.84 ng/dL 0.76-1.46 [facility] Work Phone: [phone] Panel Informationon 10-20 Thyroid Stimulating Hormone (TSH) 2.21 uIU/mL 0.358-3.74 [facility] Work Phone: [phone] Whole blood hemoglobin A1c/t otal hemoglobin ratio (mass fraction)on 10-20-2021 HbA1c (Bld) [Mass fraction] 6.6 % 3.8-5.6 [facility] Work Phone: [phone] Comment on above: Normal < 5.7 % Predi abetic 5.7 - 6.4 % Diabetic >or= 6.5 % Please note range changes. Absolute lymphocyte counton 09-21-2021 Lymphocytes Auto (Unsp spec) [#/Vol] 2.61 10*3/uL 0.83-4.51 [facility] Work Phone: Basophil percentageon 2021 Basophils/100 WBC (Bld) 0.5 % 0-1 [facility] Work Phone: Bilirubin [Mass/Vol] 0.60 mg/dL 0.20-1.00 [facility] Work Phone: Comment on above: For patients on eltr ombopag therapy, use of Dimension [place] TBIL is not recommended. Chloride [Moles/Vol] 105 mmol/L 98-107 [facility] Work Phone: Eosinophils/100 WBC (Bld) 2.1 % 0-5 [facility] Work Phone: [phone] Glucose [Mass/Vol] 143 mg/dL 74-106 [facility] Work Phone: Comment on above: Fasting Glucose resu lt greater than or equal to 126 mg/dL suggests DIABETES MELLITUS per A.D.A. criteria. Neutrophils (Bld) [#/Vol] 4.1 10*3/uL 2.0-7.7 [facility] Work Phone: Neutrophils/100 WBC (Bld) 54.2 % 47-70 [facility] Work Phone: Potassium [Moles/Vol] 4.1 mmol/L 3.5-5.1 [facility] Work Phone: Protein [Mass/Vol] 7.5 g/dL 6.4-8.2 [facility] Work Phone: Sodium [Moles/Vol] 139 mmol/L 136-145 [facility] Work Phone: WBC (Bld) [#/Vol] 7.7 10*3/uL 4.4-11.0 [facility] Work Phone: Blood erythrocytes count (nu mber/volume)on 09-21-2021 RBC (Bld) [#/Vol] 4.25 10*6/uL 4.2-5.4 [facility] Work Phone: Blood hemoglobin measurement (mass/volume)on 09-21-2021 Hemoglobin (Bld) [Mass/Vol] 11.5 g/dL 12.0-15.0 [facility] Work Phone: [phone] Blood lymphocytes/100 leukoc yteson 09-21-2021 Lymphocytes/100 WBC (Bld) 34.1 % 19-41 [facility] Work Phone: [phone] Blood monocytes/100 leukocyt eson 09-21-2021 Monocytes/100 WBC (Bld) 8.6 % 0-10 [facility] Work Phone: [phone] Blood platelet mean volumeon 09-21-2021 Platelet mean volume (Bld) [Entitic vol] 9.9 fL 6.2-12.0 [facility] Work Phone: [phone] Determination of erythrocyte mean corpuscular volume (MCV)on 09-21-2021 MCV (RBC) [Entitic vol] 81.6 fL 81-99 [facility] Work Phone: Hematocrit Auto (Bld) [Volum e fraction]on 09-21-2021 Hematocrit (Bld) [Volume fraction] 34.7 % 37-47 [facility] Work Phone: Laboratory - Chemistry and C hemistry - challengeon 09-21-2021 ALP [Catalytic activity/Vol] 45 U/L 45-117 [facility] Work Phone: ALT [Catalytic activity/Vol] 28 U/L 13-56 [facility] Work Phone: [phone] CO2 [Moles/Vol] 26.0 mmol/L 21.0-32.0 [facility] Work Phone: Globulin (S) [Mass/Vol] 3.8 g/dL 2.2-4.2 [facility] Work Phone: [phone] Urea nitrogen/Creatinine [Mass ratio] 12.8 mg/mg 10-20 [facility] Work Phone: [phone] Laboratory - Hematology and Cell countson 09-21-2021 Erythrocyte distribution width (RBC) [Entitic vol] 38.6 fL 35.1-43.9 [facility] Work Phone: [phone] Erythrocyte distribution width (RBC) [Ratio] 13.0 % 11.6-14.6 [facility] Work Phone: [phone] Immature granulocytes/100 WBC (Bld) 0.500 % 0.0-0.9 [facility] Work Phone: [phone] Comment on above: IG% - Immature Granu locytes (promyelocytes, myelocytes and metamyelocytes) > 1% indicates that a LEFT SHIFT is Present. MCH (RBC) [Entitic mass] 27.1 pg 27.0-32.0 [facility] Work Phone: [phone] Nucleated RBC/100 WBC (Bld) [Ratio] 0 % 0-5 [facility] Work Phone: [phone] MCHC Auto (RBC) [Mass/Vol]on 09-21-2021 MCHC (RBC) [Mass/Vol] 33.1 g/dL 32-36 [facility] Work Phone: [phone] Panel Informationon 09-21 Estimated GFR (MDRD) Amer 68 mL/min >60 [facility] Work Phone: [phone] Comment on above: GFR Calc Estimated GFR (MDRD) Non-Af Amer 56 mL/min >60 [facility] Work Phone: [phone] Comment on above: Non- GFR Calc Thyroid Stimulating Hormone (TSH) 2.98 uIU/mL 0.358-3.74 [facility] Work Phone: [phone] Vitamin D 25-Hydroxy 36.2 ng/mL [facility] Work Phone: [phone] Comment on above: Vitamin D 25(OH) Sta tus Range Deficiency <20 ng/mL (50nmol/L) Insufficiency 20 - 30 ng/mL (50 - 75 nmol/L) Sufficiency 30 - 100 ng/mL (75 - 250 nmol/L) Toxicity >100 ng/mL (>250 nmol/L) Platelets bldon 09-21-2021 Platelets (Bld) [#/Vol] 274 10*3/uL 150-450 [facility] Work Phone: [phone] Serum or plasma albumin thiago urement (mass/volume)on 09-21-2021 Albumin [Mass/Vol] 3.7 g/dL 3.2-5.0 [facility] Work Phone: [phone] Serum or plasma albumin/glob ulin mass ratioon 09-21-2021 Albumin/Globulin [Mass ratio] 1.0 {ratio} 0.9-2.4 [facility] Work Phone: [phone] Serum or plasma calcium thiago urement (mass/volume)on 09-21-2021 Calcium [Mass/Vol] 8.7 mg/dL 8.5-10.1 [facility] Work Phone: [phone] Serum or plasma creatinine m easurement (mass/volume)on 09-21-2021 Creatinine [Mass/Vol] 1.09 mg/dL 0.55-1.02 [facility] Work Phone: Comment on above: The validity of the calculated GFR & GFRAA in patients over 70 years has not been determined. Clinical correlation is essential. Serum or plasma urea nitroge n measurement (mass/volume)on 09-21-2021 Urea nitrogen [Mass/Vol] 14 mg/dL 7-18 [facility] Work Phone: [phone] Thin prep Papanicolaou smear with manual screeningon 09-21-2021 Thin prep Papanicolaou smear with manual screening 27 U/L 15-37 [facility] Work Phone: [phone] Thin prep Papanicolaou smear with manual screening 8 5-15 [facility] Work Phone: [phone] Absolute lymphocyte counton 08-25-2021 Lymphocytes Auto (Unsp spec) [#/Vol] 2.35 10*3/uL 0.83-4.51 [facility] Work Phone: Basophil percentageon 2021 Basophils/100 WBC (Bld) 0.4 % 0-1 [facility] Work Phone: Bilirubin [Mass/Vol] 0.40 mg/dL 0.20-1.00 [facility] Work Phone: Comment on above: For patients on eltr ombopag therapy, use of Dimension [place] TBIL is not recommended. Chloride [Moles/Vol] 106 mmol/L 98-107 [facility] Work Phone: Eosinophils/100 WBC (Bld) 1.5 % 0-5 [facility] Work Phone: Glucose [Mass/Vol] 163 mg/dL 74-106 [facility] Work Phone: Comment on above: Fasting Glucose resu lt greater than or equal to 126 mg/dL suggests DIABETES MELLITUS per A.D.A. criteria. Neutrophils (Bld) [#/Vol] 5.7 10*3/uL 2.0-7.7 [facility] Work Phone: Neutrophils/100 WBC (Bld) 62.9 % 47-70 [facility] Work Phone: Potassium [Moles/Vol] 4.5 mmol/L 3.5-5.1 [facility] Work Phone: Protein [Mass/Vol] 8.2 g/dL 6.4-8.2 [facility] Work Phone: Sodium [Moles/Vol] 139 mmol/L 136-145 [facility] Work Phone: WBC (Bld) [#/Vol] 9.1 10*3/uL 4.4-11.0 [facility] Work Phone: Blood erythrocytes count (nu mber/volume)on 08-25-2021 RBC (Bld) [#/Vol] 4.49 10*6/uL 4.2-5.4 [facility] Work Phone: Blood hemoglobin measurement (mass/volume)on 08-25-2021 Hemoglobin (Bld) [Mass/Vol] 12.1 g/dL 12.0-15.0 [facility] Work Phone: Blood lymphocytes/100 leukoc yteson 08-25-2021 Lymphocytes/100 WBC (Bld) 25.8 % 19-41 [facility] Work Phone: [phone] Blood monocytes/100 leukocyt eson 08-25-2021 Monocytes/100 WBC (Bld) 8.9 % 0-10 [facility] Work Phone: Blood platelet mean volumeon 08-25-2021 Platelet mean volume (Bld) [Entitic vol] 10.4 fL 6.2-12.0 [facility] Work Phone: Culture, urineon 08-25-2021 Bacteria identified Cx Nom (U) Mixed Gram Pos & Gram Neg Org [facility] Work Phone: Determination of erythrocyte mean corpuscular volume (MCV)on 08-25-2021 MCV (RBC) [Entitic vol] 83.3 fL 81-99 [facility] Work Phone: Erythrocyte sedimentation ra david 08-25-2021 ESR (Bld) [Velocity] 39 mm/h 0-30 [facility] Work Phone: Hematocrit Auto (Bld) [Volum e fraction]on 08-25-2021 Hematocrit (Bld) [Volume fraction] 37.4 % 37-47 [facility] Work Phone: Laboratory - Chemistry and C hemistry - challengeon 08-25-2021 ALP [Catalytic activity/Vol] 44 U/L 45-117 [facility] Work Phone: ALT [Catalytic activity/Vol] 38 U/L 13-56 [facility] Work Phone: [phone] CO2 [Moles/Vol] 22.0 mmol/L 21.0-32.0 [facility] Work Phone: [phone] Globulin (S) [Mass/Vol] 4.3 g/dL 2.2-4.2 [facility] Work Phone: [phone] Urea nitrogen/Creatinine [Mass ratio] 26.5 mg/mg 10-20 [facility] Work Phone: [phone] Laboratory - Hematology and Cell countson 08-25-2021 Erythrocyte distribution width (RBC) [Entitic vol] 39.4 fL 35.1-43.9 [facility] Work Phone: [phone] Erythrocyte distribution width (RBC) [Ratio] 13.1 % 11.6-14.6 [facility] Work Phone: [phone] Immature granulocytes/100 WBC (Bld) 0.500 % 0.0-0.9 [facility] Work Phone: [phone] Comment on above: IG% - Immature Granu locytes (promyelocytes, myelocytes and metamyelocytes) > 1% indicates that a LEFT SHIFT is Present. MCH (RBC) [Entitic mass] 26.9 pg 27.0-32.0 [facility] Work Phone: [phone] Nucleated RBC/100 WBC (Bld) [Ratio] 0 % 0-5 [facility] Work Phone: [phone] MCHC Auto (RBC) [Mass/Vol]on 08-25-2021 MCHC (RBC) [Mass/Vol] 32.4 g/dL 32-36 [facility] Work Phone: [phone] Panel Informationon 08-25 Estimated GFR (MDRD) Amer 77 mL/min >60 [facility] Work Phone: [phone] Comment on above: GFR Calc Estimated GFR (MDRD) Non-Af Amer 63 mL/min >60 [facility] Work Phone: [phone] Comment on above: Non- GFR Calc Thyroid Stimulating Hormone (TSH) 2.17 uIU/mL 0.358-3.74 [facility] Work Phone: [phone] Platelets bldon 08-25-2021 Platelets (Bld) [#/Vol] 293 10*3/uL 150-450 [facility] Work Phone: Serum or plasma C reactive p rotein measurement (mass/volume)on 08-25-2021 CRP [Mass/Vol] mg/L 0.0-3.0 [facility] Work Phone: Comment on above: C-Reactive Protein ( CRP) provides useful information for thediagnosis, therapy and monitoring of inflammatory processesand associated diseases. For the evaluation of Relative Riskfor Cardiovascular Disease, a High Sensitivity CRP (HSCRP)should be ordered. Serum or plasma albumin thiago urement (mass/volume)on 08-25-2021 Albumin [Mass/Vol] 3.9 g/dL 3.2-5.0 [facility] Work Phone: Serum or plasma albumin/glob ulin mass ratioon 08-25-2021 Albumin/Globulin [Mass ratio] 0.9 {ratio} 0.9-2.4 [facility] Work Phone: Serum or plasma calcium thiago urement (mass/volume)on 08-25-2021 Calcium [Mass/Vol] 9.4 mg/dL 8.5-10.1 [facility] Work Phone: Serum or plasma creatinine m easurement (mass/volume)on 08-25-2021 Creatinine [Mass/Vol] 0.98 mg/dL 0.55-1.02 [facility] Work Phone: Comment on above: The validity of the calculated GFR & GFRAA in patients over 70 years has not been determined. Clinical correlation is essential. Serum or plasma urea nitroge n measurement (mass/volume)on 08-25-2021 Urea nitrogen [Mass/Vol] 26 mg/dL 7-18 [facility] Work Phone: [phone] Thin prep Papanicolaou smear with manual screeningon 08-25-2021 Thin prep Papanicolaou smear with manual screening 31 U/L 15-37 [facility] Work Phone: [phone] Thin prep Papanicolaou smear with manual screening 11 5-15 [facility] Work Phone: [phone] Panel Informationon 07-22 Homocysteine 7.4 umol/L 3.2-10.7 [facility] Work Phone: [phone] Serum or plasma methylmalona te measurement (moles/volume)on 07-22-2021 Methylmalonate [Moles/Vol] 819 nmol/L 0-378 [facility] Work Phone: Comment on above: Performed at: [address] [id number] Director: Pauline Yang MD, Phone: [phone] Absolute lymphocyte counton 07-20-2021 Lymphocytes Auto (Unsp spec) [#/Vol] 2.36 10*3/uL 0.83-4.51 [facility] Work Phone: [phone] Basophil percentageon 2021 Basophils/100 WBC (Bld) 0.4 % 0-1 [facility] Work Phone: [phone] Eosinophils/100 WBC (Bld) 2.3 % 0-5 [facility] Work Phone: [phone] Neutrophils (Bld) [#/Vol] 3.7 10*3/uL 2.0-7.7 [facility] Work Phone: [phone] Neutrophils/100 WBC (Bld) 54.5 % 47-70 [facility] Work Phone: [phone] WBC (Bld) [#/Vol] 6.9 10*3/uL 4.4-11.0 [facility] Work Phone: [phone] Blood erythrocytes count (nu mber/volume)on 07-20-2021 RBC (Bld) [#/Vol] 4.01 10*6/uL 4.2-5.4 [facility] Work Phone: [phone] Blood hemoglobin measurement (mass/volume)on 07-20-2021 Hemoglobin (Bld) [Mass/Vol] 10.9 g/dL 12.0-15.0 [facility] Work Phone: [phone] Blood lymphocytes/100 leukoc yteson 07-20-2021 Lymphocytes/100 WBC (Bld) 34.4 % 19-41 [facility] Work Phone: Blood monocytes/100 leukocyt eson 07-20-2021 Monocytes/100 WBC (Bld) 8.3 % 0-10 [facility] Work Phone: [phone] Blood platelet mean volumeon 07-20-2021 Platelet mean volume (Bld) [Entitic vol] 10.5 fL 6.2-12.0 [facility] Work Phone: [phone] Determination of erythrocyte mean corpuscular volume (MCV)on 07-20-2021 MCV (RBC) [Entitic vol] 83.5 fL 81-99 [facility] Work Phone: [phone] Hematocrit Auto (Bld) [Volum e fraction]on 07-20-2021 Hematocrit (Bld) [Volume fraction] 33.5 % 37-47 [facility] Work Phone: [phone] Hemoglobin in reticulocytes (mass per reticulocyte)on 07-20-2021 Hemoglobin (Reticulocytes) [Entitic mass] 31.0 pg 30-35 [facility] Work Phone: [phone] [facility] measurement (mass/mass) on 07-20-2021 Iron (Unsp spec) [Mass/Mass] 44 ug/dL 50-170 [facility] Work Phone: [phone] Laboratory - Chemistry and C hemistry - challengeon 07-20-2021 Cobalamin (Vitamin B12) [Mass/Vol] 299 pg/mL 211-911 [facility] Work Phone: [phone] Laboratory - Hematology and Cell countson 07-20-2021 Erythrocyte distribution width (RBC) [Entitic vol] 43.0 fL 35.1-43.9 [facility] Work Phone: [phone] Erythrocyte distribution width (RBC) [Ratio] 14.1 % 11.6-14.6 [facility] Work Phone: [phone] Immature granulocytes/100 WBC (Bld) 0.100 % 0.0-0.9 [facility] Work Phone: [phone] Comment on above: IG% - Immature Granu locytes (promyelocytes, myelocytes and metamyelocytes) > 1% indicates that a LEFT SHIFT is Present. MCH (RBC) [Entitic mass] 27.2 pg 27.0-32.0 [facility] Work Phone: [phone] Nucleated RBC/100 WBC (Bld) [Ratio] 0 % 0-5 [facility] Work Phone: [phone] MCHC Auto (RBC) [Mass/Vol]on 07-20-2021 MCHC (RBC) [Mass/Vol] 32.5 g/dL 32-36 [facility] Work Phone: [phone] Panel Informationon 07-20 Immature Reticulocyte Fraction 17.20 % 3.00-15.90 [facility] Work Phone: [phone] Reticulocyte Count 2.13 % 0.5-1.5 [facility] Work Phone: [phone] Total Iron Binding Capacity 443 ug/dL 250-450 [facility] Work Phone: [phone] Platelets bldon 07-20-2021 Platelets (Bld) [#/Vol] 234 10*3/uL 150-450 [facility] Work Phone: [phone] Serum or plasma ferritin lizette surement (mass/volume)on 07-20-2021 Ferritin [Mass/Vol] 30 ng/mL 8-252 [facility] Work Phone: [phone] Serum or plasma folate measu rement (mass/volume)on 07-20-2021 Folate [Mass/Vol] 11.00 ng/mL 3.1-55.4 [facility] Work Phone: [phone] Serum or plasma iron saturat ion measurement (mass fraction)on 07-20-2021 Iron saturation [Mass fraction] 9.9 % 15.0-55.0 [facility] Work Phone: [phone] Absolute lymphocyte counton 07-19-2021 Lymphocytes Auto (Unsp spec) [#/Vol] 2.89 10*3/uL 0.83-4.51 [facility] Work Phone: [phone] Basophil percentageon 2021 Basophils/100 WBC (Bld) 0.4 % 0-1 [facility] Work Phone: Chloride [Moles/Vol] 108 mmol/L 98-107 [facility] Work Phone: Eosinophils/100 WBC (Bld) 1.8 % 0-5 [facility] Work Phone: Glucose [Mass/Vol] 140 mg/dL 74-106 [facility] Work Phone: Comment on above: Fasting Glucose resu lt greater than or equal to 126 mg/dL suggests DIABETES MELLITUS per A.D.A. criteria. Neutrophils (Bld) [#/Vol] 4.7 10*3/uL 2.0-7.7 [facility] Work Phone: Neutrophils/100 WBC (Bld) 55.6 % 47-70 [facility] Work Phone: Potassium [Moles/Vol] 4.0 mmol/L 3.5-5.1 [facility]: Sodium [Moles/Vol] 138 mmol/L 136-145 [facility] Work Phone: WBC (Bld) [#/Vol] 8.4 10*3/uL 4.4-11.0 [facility] Work Phone: Blood erythrocytes count (nu mber/volume)on 07-19-2021 RBC (Bld) [#/Vol] 4.11 10*6/uL 4.2-5.4 [facility] Work Phone: Blood hemoglobin measurement (mass/volume)on 07-19-2021 Hemoglobin (Bld) [Mass/Vol] 10.8 g/dL 12.0-15.0 [facility] Work Phone: Blood lymphocytes/100 leukoc yteson 07-19-2021 Lymphocytes/100 WBC (Bld) 34.5 % 19-41 [facility] Work Phone: Blood monocytes/100 leukocyt eson 07-19-2021 Monocytes/100 WBC (Bld) 7.5 % 0-10 [facility] Work Phone: [phone] Blood platelet mean volumeon 07-19-2021 Platelet mean volume (Bld) [Entitic vol] 10.4 fL 6.2-12.0 [facility] Work Phone: [phone] Culture, urineon 07-19-2021 Bacteria identified Cx Nom (U) Escherichia coli [facility] Work Phone: [phone] Determination of erythrocyte mean corpuscular volume (MCV)on 07-19-2021 MCV (RBC) [Entitic vol] 83.0 fL 81-99 [facility] Work Phone: [phone] Hematocrit Auto (Bld) [Volum e fraction]on 07-19-2021 Hematocrit (Bld) [Volume fraction] 34.1 % 37-47 [facility] Work Phone: [phone] Laboratory - Chemistry and C hemistry - challengeon 07-19-2021 CO2 [Moles/Vol] 26.0 mmol/L 21.0-32.0 [facility] Work Phone: [phone] Urea nitrogen/Creatinine [Mass ratio] 15.8 mg/mg 10-20 [facility] Work Phone: [phone] Laboratory - Hematology and Cell countson 07-19-2021 Erythrocyte distribution width (RBC) [Entitic vol] 42.5 fL 35.1-43.9 [facility] Work Phone: [phone] Erythrocyte distribution width (RBC) [Ratio] 14.1 % 11.6-14.6 [facility] Work Phone: [phone] Immature granulocytes/100 WBC (Bld) 0.200 % 0.0-0.9 [facility] Work Phone: [phone] Comment on above: IG% - Immature Granu locytes (promyelocytes, myelocytes and metamyelocytes) > 1% indicates that a LEFT SHIFT is Present. MCH (RBC) [Entitic mass] 26.3 pg 27.0-32.0 [facility] Work Phone: [phone] Nucleated RBC/100 WBC (Bld) [Ratio] 0 % 0-5 [facility] Work Phone: Laboratory - Microbiology an d Antimicrobial susceptibilityon 07-19-2021 Bacteria identified Cx Nom (Bld) No growth in 5 days. [facility] Work Phone: MCHC Auto (RBC) [Mass/Vol]on 07-19-2021 MCHC (RBC) [Mass/Vol] 31.7 g/dL 32-36 [facility] Work Phone: No Panel Informationon 07-19 Estimated GFR (MDRD) Amer 65 mL/min >60 [facility] Work Phone: Comment on above: GFR Calc Estimated GFR (MDRD) Non-Af Amer 53 mL/min >60 [facility] Work Phone: Comment on above: Non- GFR Calc Platelets bldon 07-19-2021 Platelets (Bld) [#/Vol] 257 10*3/uL 150-450 [facility] Work Phone: Serum or plasma calcium thiago urement (mass/volume)on 07-19-2021 Calcium [Mass/Vol] 9.6 mg/dL 8.5-10.1 [facility] Work Phone: Serum or plasma creatinine m easurement (mass/volume)on 07-19-2021 Creatinine [Mass/Vol] 1.14 mg/dL 0.55-1.02 [facility] Work Phone: Comment on above: The validity of the calculated GFR & GFRAA in patients over 70 years has not been determined. Clinical correlation is essential. Serum or plasma urea nitroge n measurement (mass/volume)on 07-19-2021 Urea nitrogen [Mass/Vol] 18 mg/dL 7-18 [facility] Work Phone: Thin prep Papanicolaou smear with manual screeningon 07-19-2021 Thin prep Papanicolaou smear with manual screening 4 5-15 [facility] Work Phone: Absolute lymphocyte counton 06-23-2021 Lymphocytes Auto (Unsp spec) [#/Vol] 2.66 10*3/uL 0.83-4.51 [facility] Work Phone: Basophil percentageon 2021 Basophils/100 WBC (Bld) 0.5 % 0-1 [facility] Work Phone: Bilirubin [Mass/Vol] 0.50 mg/dL 0.20-1.00 [facility] Work Phone: Comment on above: For patients on eltr ombopag therapy, use of Dimension [place] TBIL is not recommended. Chloride [Moles/Vol] 101 mmol/L 98-107 [facility] Work Phone: Eosinophils/100 WBC (Bld) 1.5 % 0-5 [facility] Work Phone: Glucose [Mass/Vol] 252 mg/dL 74-106 [facility] Work Phone: Comment on above: Glucose result great er than or equal to 200 mg/dLsuggests DIABETES MELLITUS per A.D.A. criteria. Neutrophils (Bld) [#/Vol] 5.2 10*3/uL 2.0-7.7 [facility] Work Phone: Neutrophils/100 WBC (Bld) 58.4 % 47-70 [facility] Work Phone: Potassium [Moles/Vol] 4.1 mmol/L 3.5-5.1 [facility] Work Phone: Protein [Mass/Vol] 7.9 g/dL 6.4-8.2 [facility] Work Phone: Sodium [Moles/Vol] 137 mmol/L 136-145 [facility] Work Phone: WBC (Bld) [#/Vol] 8.9 10*3/uL 4.4-11.0 [facility] Work Phone: Blood erythrocytes count (nu mber/volume)on 06-23-2021 RBC (Bld) [#/Vol] 4.77 10*6/uL 4.2-5.4 [facility] Work Phone: [phone] Blood hemoglobin measurement (mass/volume)on 06-23-2021 Hemoglobin (Bld) [Mass/Vol] 13.1 g/dL 12.0-15.0 [facility] Work Phone: [phone] Blood lymphocytes/100 leukoc yteson 06-23-2021 Lymphocytes/100 WBC (Bld) 30.0 % 19-41 [facility] Work Phone: [phone] Blood monocytes/100 leukocyt eson 06-23-2021 Monocytes/100 WBC (Bld) 9.3 % 0-10 [facility] Work Phone: [phone] Blood platelet mean volumeon 06-23-2021 Platelet mean volume (Bld) [Entitic vol] 10.2 fL 6.2-12.0 [facility] Work Phone: [phone] Determination of erythrocyte mean corpuscular volume (MCV)on 06-23-2021 MCV (RBC) [Entitic vol] 80.5 fL 81-99 [facility] Work Phone: [phone] Hematocrit Auto (Bld) [Volum e fraction]on 06-23-2021 Hematocrit (Bld) [Volume fraction] 38.4 % 37-47 [facility] Work Phone: Laboratory - Chemistry and C hemistry - challengeon 06-23-2021 ALP [Catalytic activity/Vol] 50 U/L 45-117 [facility] Work Phone: [phone] ALT [Catalytic activity/Vol] 42 U/L 13-56 [facility] Work Phone: [phone] CO2 [Moles/Vol] 28.0 mmol/L 21.0-32.0 [facility] Work Phone: [phone] Globulin (S) [Mass/Vol] 4.1 g/dL 2.2-4.2 [facility] Work Phone: [phone] Urea nitrogen/Creatinine [Mass ratio] 16.0 mg/mg 10-20 [facility] Work Phone: [phone] Laboratory - Hematology and Cell countson 06-23-2021 Erythrocyte distribution width (RBC) [Entitic vol] 40.6 fL 35.1-43.9 [facility] Work Phone: [phone] Erythrocyte distribution width (RBC) [Ratio] 13.9 % 11.6-14.6 [facility] Work Phone: [phone] Immature granulocytes/100 WBC (Bld) 0.300 % 0.0-0.9 [facility] Work Phone: [phone] Comment on above: IG% - Immature Granu locytes (promyelocytes, myelocytes and metamyelocytes) > 1% indicates that a LEFT SHIFT is Present. MCH (RBC) [Entitic mass] 27.5 pg 27.0-32.0 [facility] Work Phone: [phone] Nucleated RBC/100 WBC (Bld) [Ratio] 0 % 0-5 [facility] Work Phone: [phone] MCHC Auto (RBC) [Mass/Vol]on 06-23-2021 MCHC (RBC) [Mass/Vol] 34.1 g/dL 32-36 [facility] Work Phone: [phone] Panel Informationon 06-23 Estimated GFR (MDRD) Amer 58 mL/min >60 [facility] Work Phone: [phone] Comment on above: GFR Calc Estimated GFR (MDRD) Non-Af Amer 48 mL/min >60 [facility] Work Phone: [phone] Comment on above: Non- GFR Calc Thyroid Stimulating Hormone (TSH) 4.89 uIU/mL 0.358-3.74 [facility] Work Phone: [phone] Platelets bldon 06-23-2021 Platelets (Bld) [#/Vol] 274 10*3/uL 150-450 [facility] Work Phone: [phone] Serum or plasma albumin thiago urement (mass/volume)on 06-23-2021 Albumin [Mass/Vol] 3.8 g/dL 3.2-5.0 [facility] Work Phone: [phone] Serum or plasma albumin/glob ulin mass ratioon 06-23-2021 Albumin/Globulin [Mass ratio] 0.9 {ratio} 0.9-2.4 [facility] Work Phone: Serum or plasma calcium thiago urement (mass/volume)on 06-23-2021 Calcium [Mass/Vol] 8.9 mg/dL 8.5-10.1 [facility] Work Phone: Serum or plasma creatinine m easurement (mass/volume)on 06-23-2021 Creatinine [Mass/Vol] 1.25 mg/dL 0.55-1.02 [facility] Work Phone: Comment on above: The validity of the calculated GFR & GFRAA in patients over 70 years has not been determined. Clinical correlation is essential. Serum or plasma urea nitroge n measurement (mass/volume)on 06-23-2021 Urea nitrogen [Mass/Vol] 20 mg/dL 7-18 [facility] Work Phone: Thin prep Papanicolaou smear with manual screeningon 06-23-2021 Thin prep Papanicolaou smear with manual screening 32 U/L 15-37 [facility] Work Phone: Thin prep Papanicolaou smear with manual screening 8 5-15 [facility] Work Phone: Basophil percentageon 2021 Cholesterol [Mass/Vol] 126 mg/dL <200 [facility] Work Phone: Comment on above: <200 mg/dL Desirable 200-240 mg/dL Borderline >240 mg/dL High Risk Triglyceride [Mass/Vol] 145 mg/dL <199 [facility] Work Phone: Comment on above: The drugs N-Acetylcy steine and Metamizole may falsely depress this assay.Serum Triglycerides Reference Interval Normal <150 mg/dL Borderline high 150 - 199 mg/dL High 200 - 499 mg/dL Very High > or = 500 mg/dL Laboratory - Chemistry and C hemistry - challengeon 06-09-2021 Cobalamin (Vitamin B12) [Mass/Vol] 392 pg/mL 211-911 [facility] Work Phone: [phone] Free T4 [Mass/Vol] 0.98 ng/dL 0.76-1.46 [facility] Work Phone: Laboratory - Hematology and Cell countson 06-09-2021 HbA1c (Bld) [Mass fraction] 9.4 % [facility] Work Phone: No Panel Informationon 06-09 Thyroid Stimulating Hormone (TSH) 2.37 uIU/mL 0.358-3.74 [facility] Work Phone: [phone] Vitamin D 25-Hydroxy 21.5 ng/mL [facility] Work Phone: [phone] Comment on above: Vitamin D 25(OH) Sta tus Range Deficiency <20 ng/mL (50nmol/L) Insufficiency 20 - 30 ng/mL (50 - 75 nmol/L) Sufficiency 30 - 100 ng/mL (75 - 250 nmol/L) Toxicity >100 ng/mL (>250 nmol/L) Serum or plasma cholesterol in HDL measurement (mass/volume)on 06-09-2021 Cholesterol in HDL [Mass/Vol] 41 mg/dL >40 [facility] Work Phone: Comment on above: The drugs N-Acetylcy steine and Metamizole may falsely depress this assay. Reference Range HDL <40 mg/dL Low HDL Cholesterol HDL >or= 60 mg/dL High HDL Cholesterol Serum or plasma cholesterol in VLDL measurement (mass/volume)on 06-09-2021 Cholesterol in VLDL [Mass/Vol] 29 mg/dL 5-40 [facility] Work Phone: [phone] Serum or plasma low density lipoprotein (LDL) cholesterol measurement (mass/volume)on 06-09-2021 Cholesterol in LDL [Mass/Vol] 56 mg/dL 0-130 [facility] Work Phone: Bacteria identified Cx Nom ( Wound)on 05-18-2021 Wound Culture Meth. resistant Staph. aureus [facility] Work Phone: [phone] Gram stain for investigation of transfusion reactionon 05-18-2021 Microscopic observation Gram stain Nom (Unsp spec) [facility] Work Phone: No Panel Informationon 05-18 Methicillin-Resist S.aureus DNA PCR Positive Negative [facility] Work Phone: Staphylococcus aureus DNA de tection by probe and target amplification methodon 05-18-2021 S. aureus DNA EMILY+probe Ql (Unsp spec) Positive Negative [facility] Work Phone: Absolute lymphocyte counton 05-17-2021 Lymphocytes Auto (Unsp spec) [#/Vol] 2.79 10*3/uL 0.83-4.51 [facility] Work Phone: Basophil percentageon 2021 Basophils/100 WBC (Bld) 0.4 % 0-1 [facility] Work Phone: Chloride [Moles/Vol] 104 mmol/L 98-107 [facility] Work Phone: Eosinophils/100 WBC (Bld) 1.6 % 0-5 [facility] Work Phone: Glucose [Mass/Vol] 227 mg/dL 74-106 [facility] Work Phone: Comment on above: Glucose result great er than or equal to 200 mg/dLsuggests DIABETES MELLITUS per A.D.A. criteria. Neutrophils (Bld) [#/Vol] 4.7 10*3/uL 2.0-7.7 [facility] Work Phone: Neutrophils/100 WBC (Bld) 55.4 % 47-70 [facility] Work Phone: Potassium [Moles/Vol] 4.2 mmol/L 3.5-5.1 [facility] Work Phone: Sodium [Moles/Vol] 139 mmol/L 136-145 [facility] Work Phone: WBC (Bld) [#/Vol] 8.5 10*3/uL 4.4-11.0 [facility] Work Phone: Blood erythrocytes count (nu mber/volume)on 05-17-2021 RBC (Bld) [#/Vol] 4.70 10*6/uL 4.2-5.4 [facility] Work Phone: [phone] Blood hemoglobin measurement (mass/volume)on 05-17-2021 Hemoglobin (Bld) [Mass/Vol] 12.5 g/dL 12.0-15.0 [facility] Work Phone: [phone] Blood lymphocytes/100 leukoc yteson 05-17-2021 Lymphocytes/100 WBC (Bld) 32.7 % 19-41 [facility] Work Phone: [phone] Blood monocytes/100 leukocyt eson 05-17-2021 Monocytes/100 WBC (Bld) 9.5 % 0-10 [facility] Work Phone: [phone] Blood platelet mean volumeon 05-17-2021 Platelet mean volume (Bld) [Entitic vol] 10.1 fL 6.2-12.0 [facility] Work Phone: [phone] Determination of erythrocyte mean corpuscular volume (MCV)on 05-17-2021 MCV (RBC) [Entitic vol] 80.6 fL 81-99 [facility] Work Phone: [phone] Hematocrit Auto (Bld) [Volum e fraction]on 05-17-2021 Hematocrit (Bld) [Volume fraction] 37.9 % 37-47 [facility] Work Phone: [phone] Laboratory - Chemistry and C hemistry - challengeon 05-17-2021 CO2 [Moles/Vol] 29.0 mmol/L 21.0-32.0 [facility] Work Phone: [phone] Urea nitrogen/Creatinine [Mass ratio] 20.2 mg/mg 10-20 [facility] Work Phone: [phone] Laboratory - Hematology and Cell countson 05-17-2021 Erythrocyte distribution width (RBC) [Entitic vol] 41.0 fL 35.1-43.9 [facility] Work Phone: [phone] Erythrocyte distribution width (RBC) [Ratio] 14.2 % 11.6-14.6 [facility] Work Phone: [phone] Immature granulocytes/100 WBC (Bld) 0.400 % 0.0-0.9 [facility] Work Phone: Comment on above: IG% - Immature Granu locytes (promyelocytes, myelocytes and metamyelocytes) > 1% indicates that a LEFT SHIFT is Present. MCH (RBC) [Entitic mass] 26.6 pg 27.0-32.0 [facility] Work Phone: Nucleated RBC/100 WBC (Bld) [Ratio] 0 % 0-5 [facility] Work Phone: Laboratory - Microbiology an d Antimicrobial susceptibilityon 05-17-2021 Bacteria identified Cx Nom (Bld) No growth in 5 days. [facility] Work Phone: MCHC Auto (RBC) [Mass/Vol]on 05-17-2021 MCHC (RBC) [Mass/Vol] 33.0 g/dL 32-36 [facility] Work Phone: No Panel Informationon 05-17 Estimated GFR (MDRD) Amer 62 mL/min >60 [facility] Work Phone: Comment on above: GFR Calc Estimated GFR (MDRD) Non-Af Amer 51 mL/min >60 [facility] Work Phone: Comment on above: Non- GFR Calc Platelets bldon 05-17-2021 Platelets (Bld) [#/Vol] 302 10*3/uL 150-450 [facility] Work Phone: Serum or plasma calcium thiago urement (mass/volume)on 05-17-2021 Calcium [Mass/Vol] 9.3 mg/dL 8.5-10.1 [facility] Work Phone: Serum or plasma creatinine m easurement (mass/volume)on 05-17-2021 Creatinine [Mass/Vol] 1.19 mg/dL 0.55-1.02 [facility] Work Phone: Comment on above: The validity of the calculated GFR & GFRAA in patients over 70 years has not been determined. Clinical correlation is essential. Serum or plasma urea nitroge n measurement (mass/volume)on 05-17-2021 Urea nitrogen [Mass/Vol] 24 mg/dL 7-18 [facility] Work Phone: Thin prep Papanicolaou smear with manual screeningon 05-17-2021 Thin prep Papanicolaou smear with manual screening 6 5-15 [facility] Work Phone: Laboratory - Hematology and Cell countson 05-12-2021 HbA1c (Bld) [Mass fraction] 10.2 % [facility] Work Phone: Absolute lymphocyte counton 04-14-2021 Lymphocytes Auto (Unsp spec) [#/Vol] 3.45 10*3/uL 0.83-4.51 [facility] Work Phone: Bacteria identified Cx Nom ( Wound)on 04-14-2021 Wound Culture Meth. resistant Staph. aureus [facility] Work Phone: Basophil percentageon 2021 Basophils/100 WBC (Bld) 0.4 % 0-1 [facility] Work Phone: Chloride [Moles/Vol] 102 mmol/L 98-107 [facility] Work Phone: Eosinophils/100 WBC (Bld) 1.6 % 0-5 [facility] Work Phone: Glucose [Mass/Vol] 279 mg/dL 74-106 [facility] Work Phone: Comment on above: Glucose result great er than or equal to 200 mg/dLsuggests DIABETES MELLITUS per A.D.A. criteria. Neutrophils (Bld) [#/Vol] 6.7 10*3/uL 2.0-7.7 [facility] Work Phone: Neutrophils/100 WBC (Bld) 58.3 % 47-70 [facility] Work Phone: Potassium [Moles/Vol] 4.5 mmol/L 3.5-5.1 [facility] Work Phone: Sodium [Moles/Vol] 137 mmol/L 136-145 [facility] Work Phone: WBC (Bld) [#/Vol] 11.4 10*3/uL 4.4-11.0 [facility] Work Phone: Blood erythrocytes count (nu mber/volume)on 04-14-2021 RBC (Bld) [#/Vol] 4.66 10*6/uL 4.2-5.4 [facility] Work Phone: [phone] Blood hemoglobin measurement (mass/volume)on 04-14-2021 Hemoglobin (Bld) [Mass/Vol] 12.0 g/dL 12.0-15.0 [facility] Work Phone: Blood lymphocytes/100 leukoc yteson 04-14-2021 Lymphocytes/100 WBC (Bld) 30.3 % 19-41 [facility] Work Phone: Blood monocytes/100 leukocyt eson 04-14-2021 Monocytes/100 WBC (Bld) 9.0 % 0-10 [facility] Work Phone: Blood platelet mean volumeon 04-14-2021 Platelet mean volume (Bld) [Entitic vol] 10.9 fL 6.2-12.0 [facility] Work Phone: Determination of erythrocyte mean corpuscular volume (MCV)on 04-14-2021 MCV (RBC) [Entitic vol] 82.2 fL 81-99 [facility] Work Phone: Erythrocyte sedimentation ra david 04-14-2021 ESR (Bld) [Velocity] 37 mm/h 0-30 [facility] Work [facility]: Gram stain for investigation of transfusion reactionon 04-14-2021 Microscopic observation Gram stain Nom (Unsp spec) [facility] Work Phone: Hematocrit Auto (Bld) [Volum e fraction]on 04-14-2021 Hematocrit (Bld) [Volume fraction] 38.3 % 37-47 [facility] Work Phone: [phone] Laboratory - Chemistry and C hemistry - challengeon 04-14-2021 CO2 [Moles/Vol] 29.0 mmol/L 21.0-32.0 [facility] Work Phone: [phone] Urea nitrogen/Creatinine [Mass ratio] 19.8 mg/mg 10-20 [facility] Work Phone: [phone] Laboratory - Hematology and Cell countson 04-14-2021 Erythrocyte distribution width (RBC) [Entitic vol] 40.5 fL 35.1-43.9 [facility] Work Phone: [phone] Erythrocyte distribution width (RBC) [Ratio] 13.7 % 11.6-14.6 [facility] Work Phone: [phone] Immature granulocytes/100 WBC (Bld) 0.400 % 0.0-0.9 [facility] Work Phone: [phone] Comment on above: IG% - Immature Granu locytes (promyelocytes, myelocytes and metamyelocytes) > 1% indicates that a LEFT SHIFT is Present. MCH (RBC) [Entitic mass] 25.8 pg 27.0-32.0 [facility] Work Phone: [phone] Nucleated RBC/100 WBC (Bld) [Ratio] 0 % 0-5 [facility] Work Phone: [phone] Laboratory - Microbiology an d Antimicrobial susceptibilityon 04-14-2021 Bacteria identified Cx Nom (Bld) No growth in 5 days. [facility] Work Phone: [phone] MCHC Auto (RBC) [Mass/Vol]on 04-14-2021 MCHC (RBC) [Mass/Vol] 31.3 g/dL 32-36 [facility] Work Phone: [phone] Panel Informationon 04-14 Estimated GFR (MDRD) Amer 70 mL/min >60 [facility] Work Phone: [phone] Comment on above: GFR Calc Estimated GFR (MDRD) Non-Af Amer 58 mL/min >60 [facility] Work Phone: [phone] Comment on above: Non- GFR Calc Methicillin-Resist S.aureus DNA PCR Positive Negative [facility] Work Phone: [phone] Thyroid Stimulating Hormone (TSH) 4.56 uIU/mL 0.358-3.74 [facility] Work Phone: Platelets bldon 04-14-2021 Platelets (Bld) [#/Vol] 305 10*3/uL 150-450 [facility] Work Phone: [phone] Serum or plasma C reactive p rotein measurement (mass/volume)on 04-14-2021 CRP [Mass/Vol] 13.60 mg/L 0.0-3.0 [facility] Work Phone: Comment on above: C-Reactive Protein ( CRP) provides useful information for thediagnosis, therapy and monitoring of inflammatory processesand associated diseases. For the evaluation of Relative Riskfor Cardiovascular Disease, a High Sensitivity CRP (HSCRP)should be ordered. Serum or plasma calcium thiago urement (mass/volume)on 04-14-2021 Calcium [Mass/Vol] 8.7 mg/dL 8.5-10.1 [facility] Work Phone: [phone] Serum or plasma creatinine m easurement (mass/volume)on 04-14-2021 Creatinine [Mass/Vol] 1.06 mg/dL 0.55-1.02 [facility] Work Phone: Comment on above: The validity of the calculated GFR & GFRAA in patients over 70 years has not been determined. Clinical correlation is essential. Serum or plasma urea nitroge n measurement (mass/volume)on 04-14-2021 Urea nitrogen [Mass/Vol] 21 mg/dL 7-18 [facility] Work Phone: [phone] Staphylococcus aureus DNA de tection by probe and target amplification methodon 04-14-2021 S. aureus DNA EMILY+probe Ql (Unsp spec) Positive Negative [facility] Work Phone: [phone] Thin prep Papanicolaou smear with manual screeningon 04-14-2021 Thin prep Papanicolaou smear with manual screening 6 5-15 [facility] Work Phone: [phone] Absolute lymphocyte counton 03-10-2021 Lymphocytes Auto (Unsp spec) [#/Vol] 4.46 10*3/uL 0.83-4.51 [facility] Work Phone: [phone] Basophil percentageon 2020 Bilirubin [Mass/Vol] 0.60 mg/dL 0.20-1.00 [facility] Work Phone: [phone] Comment on above: For patients on eltr ombopag therapy, use of Dimension [place] TBIL is not recommended. Chloride [Moles/Vol] 101 mmol/L 98-107 [facility] Work Phone: Eosinophils/100 WBC (Bld) 1.5 % 0-5 [facility] Work Phone: Glucose [Mass/Vol] 272 mg/dL 74-106 [facility] Work Phone: Comment on above: Glucose result great er than or equal to 200 mg/dLsuggests DIABETES MELLITUS per A.D.A. criteria.Please note revised GLUCOSE reference range effective 2017. Neutrophils (Bld) [#/Vol] 6.7 10*3/uL 2.0-7.7 [facility] Work Phone: Potassium [Moles/Vol] 3.9 mmol/L 3.5-5.1 [facility] Work Phone: [phone] Protein [Mass/Vol] 7.8 g/dL 6.4-8.2 [facility] Work Phone: Sodium [Moles/Vol] 138 mmol/L 136-145 [facility] Work Phone: [phone] WBC (Bld) [#/Vol] 12.5 10*3/uL 4.4-11.0 [facility] Work Phone: Blood erythrocytes count (nu mber/volume)on 03-10-2021 RBC (Bld) [#/Vol] 4.98 10*6/uL 4.2-5.4 [facility] Work Phone: Blood hemoglobin measurement (mass/volume)on 03-10-2021 Hemoglobin (Bld) [Mass/Vol] 13.1 g/dL 12.0-15.0 [facility] Work Phone: Blood lymphocytes/100 leukoc yteson 03-10-2021 Lymphocytes/100 WBC (Bld) 35.8 % 19-41 [facility] Work Phone: Blood monocytes/100 leukocyt eson 03-10-2021 Monocytes/100 WBC (Bld) 7.5 % 0-10 [facility] Work Phone: Blood platelet mean volumeon 03-10-2021 Platelet mean volume (Bld) [Entitic vol] 10.1 fL 6.2-12.0 [facility] Work Phone: Determination of erythrocyte mean corpuscular volume (MCV)on 03-10-2021 MCV (RBC) [Entitic vol] 79.5 fL 81-99 [facility] Work Phone: Hematocrit Auto (Bld) [Volum e fraction]on 03-10-2021 Hematocrit (Bld) [Volume fraction] 39.6 % 37-47 [facility] Work Phone: Laboratory - Chemistry and C hemistry - challengeon 03-10-2021 ALP [Catalytic activity/Vol] 67 U/L 45-117 [facility] Work Phone: ALT [Catalytic activity/Vol] 82 U/L 13-56 [facility] Work Phone: CO2 [Moles/Vol] 28.0 mmol/L 21.0-32.0 [facility] Work Phone: Globulin (S) [Mass/Vol] 4.3 g/dL 2.2-4.2 [facility] Work Phone: Urea nitrogen/Creatinine [Mass ratio] 18.6 mg/mg 10-20 [facility] Work Phone: Laboratory - Hematology and Cell countson 03-10-2021 Basophils/100 WBC (Unsp spec) 0.5 % 0-1 [facility] Work Phone: Erythrocyte distribution width (RBC) [Entitic vol] 39.1 fL 35.1-43.9 [facility] Work Phone: Erythrocyte distribution width (RBC) [Ratio] 13.7 % 11.6-14.6 [facility] Work Phone: Immature granulocytes/100 WBC (Bld) 0.900 % 0.0-0.9 [facility] Work Phone: Comment on above: IG% - Immature Granu locytes (promyelocytes, myelocytes and metamyelocytes) > 1% indicates that a LEFT SHIFT is Present. MCH (RBC) [Entitic mass] 26.3 pg 27.0-32.0 [facility] Work Phone: Neutrophils/100 WBC (Bld) 53.8 % 47-70 [facility] Work Phone: [phone] Nucleated RBC/100 WBC (Bld) [Ratio] 0 % 0-5 [facility] Work Phone: [phone] MCHC Auto (RBC) [Mass/Vol]on 03-10-2021 MCHC (RBC) [Mass/Vol] 33.1 g/dL 32-36 [facility] Work Phone: No Panel Informationon 03-10 Estimated GFR (MDRD) Amer 74 mL/min >60 [facility] Work Phone: Comment on above: GFR Calc Estimated GFR (MDRD) Non-Af Amer 61 mL/min >60 [facility] Work Phone: Comment on above: Non- GFR Calc Thyroid Stimulating Hormone (TSH) 4.63 uIU/mL 0.358-3.74 [facility] Work Phone: Platelets bldon 03-10-2021 Platelets (Bld) [#/Vol] 283 10*3/uL 150-450 [facility] Work Phone: [phone] Serum or plasma albumin thiago urement (mass/volume)on 03-10-2021 Albumin [Mass/Vol] 3.5 g/dL 3.2-5.0 [facility] Work Phone: [phone] Serum or plasma albumin/glob ulin mass ratioon 03-10-2021 Albumin/Globulin [Mass ratio] 0.8 {ratio} 0.9-2.4 [facility] Work Phone: Serum or plasma calcium thiago urement (mass/volume)on 03-10-2021 Calcium [Mass/Vol] 9.9 mg/dL 8.5-10.1 [facility] Work Phone: Serum or plasma creatinine m easurement (mass/volume)on 03-10-2021 Creatinine [Mass/Vol] 1.02 mg/dL 0.55-1.02 [facility] Work Phone: Comment on above: The validity of the calculated GFR & GFRAA in patients over 70 years has not been determined. Clinical correlation is essential. Serum or plasma urea nitroge n measurement (mass/volume)on 03-10-2021 Urea nitrogen [Mass/Vol] 19 mg/dL 7-18 [facility] Work Phone: Thin prep Papanicolaou smear with manual screeningon 03-10-2021 Thin prep Papanicolaou smear with manual screening 41 U/L 15-37 [facility] Work Phone: Thin prep Papanicolaou smear with manual screening 9 -15 [facility] Work Phone: Otheron 09-19-2006 CONVERTED ELECTRONIC SIGNATURE KIANA THOMAS M.D., PATHOLOGIST (Electronic signature on file) Final Signed Out: 09/19/2006 09:15 [facility] CONVERTED FINAL DIAGNOSIS A&B. RIGHT AND LEFT FALLOPIAN TUBES, PARTIAL EXCISION - TWO SEGMENTS OF UNREMARKABLE FALLOPIAN TUBE, EACH TOTALLY TRANSECTED. C. PLACENTA, MEMBRANES AND UMBILICAL CORD, DELIVERY - ECCENTRIC INSERTION OF UMBILICAL CORD. NO HISTOLOGIC ABNORMALITIES IDENTIFIED. [facility] CONVERTED ORDERING PROVIDER Ordering Provider: FRANSISCO CAYR [facility] Culture, urine Bacteria identified Cx Nom (U) Escherichia coli [facility] Work Phone: Bacteria identified Cx Nom (U) Mixed Gram Pos & Gram Neg Org [facility] Work Phone: Bacteria identified Cx Nom (U) Positive [facility] Work Phone: Laboratory - Microbiology an d Antimicrobial susceptibility Bacteria identified Cx Nom (Bld) No growth in 5 days. [facility] Work Phone: No Panel Information Respiratory Panel (PCR) [facility] Work Phone: SARS-CoV-2 & FLU Antigen (Rapid) [facility] Work Phone: Vital Signs Date Time Vital Sign Value Performing Clinician Facility 12-12-2024 10:37-0400 Body height 170.[address] Phu Espinoza MD Work Phone: [facility] 12-12-2024 10:37-0400 Body mass index (BMI) [Ratio] 45.8 kg/m2 Dr. Phu Espinoza MD Work Phone: 8(154)148-756545 [address] 12-12-2024 10:37-0400 Body weight 132.[address] Phu Espinoza MD Work Phone: 4(657)978-872950 [place] [address] 12-12-2024 10:37-0400 Diastolic blood pressure 84 mm[Hg] Dr. Phu Espinoza MD Work Phone: 0(412)754-320450 [place] [address] 12-12-2024 10:37-0400 Heart rate 79 /min Dr. Phu Espinoza MD Work Phone: 9(294)795-665168 [place] [address] 12-12-2024 10:37-0400 SaO2% (BldA) [Mass fraction] 96 % Dr. Phu Espinoza MD Work Phone: [facility] 12-12-2024 10:37-0400 Systolic blood pressure 132 mm[Hg] Dr. Phu Espinoza MD Work Phone: [facility] 11-08-2024 13:04-0400 Body height 170.[address] Phu Espinoza MD Work Phone: [facility] 11-08-2024 13:04-0400 Body mass index (BMI) [Ratio] 45.1 kg/m2 Dr. Phu Espinoza MD Work Phone: [facility] 11-08-2024 13:04-0400 Body weight 130.[address] Phu Espinoza MD Work Phone: 0(578)086-737350 [place] [address] 11-08-2024 13:04-0400 Diastolic blood pressure 87 mm[Hg] Dr. Phu Espinoza MD Work Phone: [facility] 11-08-2024 13:04-0400 Heart rate 82 /min Dr. Phu Espinoza MD Work Phone: 9(130)733-335250 [place] [address] 11-08-2024 13:04-0400 Respiratory rate 18 /min Dr. Phu Espinoza MD Work Phone: 5(799)695-093050 [place] [address] 11-08-2024 13:04-0400 Systolic blood pressure 140 mm[Hg] Dr. Phu Espinoza MD Work Phone: 3(669)373-796050 [place] [address] 10-21-2024 08:40-0400 Body height 170.[address] Phu Espinoza MD Work Phone: 3(583)292-222668 [place] [address] 10-21-2024 08:40-0400 Body mass index (BMI) [Ratio] 44.9 kg/m2 Dr. Phu Espinoza MD Work Phone: 1(707)306-573668 [place] [address] 10-21-2024 08:40-0400 Body weight 130.[address] Phu Espinoza MD Work Phone: 4(643)443-099150 [place] [address] 10-21-2024 08:40-0400 Diastolic blood pressure 80 mm[Hg] Dr. Phu Espinoza MD Work Phone: 3(364)145-163068 [place] [address] 10-21-2024 08:40-0400 Heart rate 70 /min Dr. Phu Espinoza MD Work Phone: 2(086)928-804868 [place] [address] 10-21-2024 08:40-0400 Respiratory rate 16 /min Dr. Phu Espinoza MD Work Phone: [facility] 10-21-2024 08:40-0400 SaO2% (BldA) [Mass fraction] 98 % Dr. Phu Espinoza MD Work Phone: 8(071)265-313650 [place] [address] 10-21-2024 08:40-0400 Systolic blood pressure 128 mm[Hg] Dr. Phu Espinoza MD Work Phone: 4(333)394-342850 [place] [address] 10-07-2024 16:16-0400 Body temperature 97.7 [degF] Dr. Phu Espinoza MD Work Phone: [facility] 10-07-2024 16:16-0400 Diastolic blood pressure 58 mm[Hg] Dr. Phu Espinoza MD Work Phone: [facility] 10-07-2024 16:16-0400 Heart rate 72 /min Dr. Phu Espinoza MD Work Phone: [facility] 10-07-2024 16:16-0400 Respiratory rate 14 /min Dr. Phu Espinoza MD Work Phone: [facility] 10-07-2024 16:16-0400 SaO2% (BldA) [Mass fraction] 96 % Dr. Phu Espinoza MD Work Phone: 8(307)581-551450 [place] [address] 10-07-2024 16:16-0400 Systolic blood pressure 114 mm[Hg] Dr. Phu Espinoza MD Work Phone: 8(766)992-582850 [place] [address] 10-07-2024 16:08-0400 Body temperature 97.7 [degF] Dr. Phu Espinoza MD Work Phone: 2(904)820-394650 [place] [address] 10-07-2024 16:08-0400 Diastolic blood pressure 58 mm[Hg] Dr. Phu Espinoza MD Work Phone: 1(265)336-920150 [place] [address] 10-07-2024 16:08-0400 Heart rate 72 /min Dr. Phu Espinoza MD Work Phone: 0(515)932-916250 [place] [address] 10-07-2024 16:08-0400 Respiratory rate 14 /min Dr. Phu Espinoza MD Work Phone: [facility] 10-07-2024 16:08-0400 SaO2% (BldA) [Mass fraction] 96 % Dr. Phu Espinoza MD Work Phone: [facility] 10-07-2024 16:08-0400 Systolic blood pressure 114 mm[Hg] Dr. Phu Espinoza MD Work Phone: [facility] 10-07-2024 08:10-0400 Inhaled oxygen flow rate 2 L/min Dr. Phu Espinoza MD Work Phone: 1(607)295-691068 [place] [address] 10-05-2024 21:47-0400 Body height 170.[address] Phu Espinoza MD Work Phone: 7(311)696-600668 [place] [address] 10-05-2024 21:47-0400 Body mass index (BMI) [Ratio] 45.1 kg/m2 Dr. Phu Espinoza MD Work Phone: 2(914)390-262468 [place] [address] 10-05-2024 21:47-0400 Body weight 130.[address] Phu Espinoza MD Work Phone: 6(220)327-864868 [place] [address] 10-05-2024 21:11-0400 Body temperature 98.8 [degF] Dr. Phu Espinoza MD Work Phone: 4(231)472-714668 [place] [address] 10-05-2024 21:11-0400 Diastolic blood pressure 65 mm[Hg] Dr. Phu Espinoza MD Work Phone: 0(640)062-856068 [place] [address] 10-05-2024 21:11-0400 Heart rate 88 /min Dr. Phu Espinoza MD Work Phone: 0(185)391-337168 [place] [address] 10-05-2024 21:11-0400 Respiratory rate 22 /min Dr. Phu Espinoza MD Work Phone: 4(674)558-153068 [place] [address] 10-05-2024 21:11-0400 SaO2% (BldA) [Mass fraction] 93 % Dr. Phu Espinoza MD Work Phone: 2(222)287-124268 [place] [address] 10-05-2024 21:11-0400 Systolic blood pressure 135 mm[Hg] Dr. Phu Espinoza MD Work Phone: 4(399)905-847350 [place] [address] 10-05-2024 19:25-0400 Body mass index (BMI) [Ratio] 45.6 kg/m2 Dr. Phu Espinoza MD Work Phone: 7(117)323-806968 [place] [address] 10-05-2024 19:25-0400 Body weight [address] Phu Espinoza MD Work Phone: 9(842)972-157650 [place] [address] 10-05-2024 19:13-0400 Body height 170.[address] Phu Espinoza MD Work Phone: 6(109)795-297568 [place] [address] 05-02-2024 11:40-0500 Body height 170.[address] Phu Espinoza MD Work Phone: 9(988)887-793350 [place] [address] 05-02-2024 11:40-0500 Body mass index (BMI) [Ratio] 45.4 kg/m2 Dr. Phu Espinoza MD Work Phone: 7(191)820-342850 [place] [address] 05-02-2024 11:40-0500 Body weight 131.[address] Phu Espinoza MD Work Phone: 6(862)967-658950 [place] [address] 05-02-2024 11:40-0500 Diastolic blood pressure 81 mm[Hg] Dr. Phu Espinoza MD Work Phone: 1(034)627-225450 [place] [address] 05-02-2024 11:40-0500 Heart rate 75 /min Dr. Phu Espinoza MD Work Phone: 7(271)926-348850 [place] [address] 05-02-2024 11:40-0500 SaO2% (BldA) [Mass fraction] 97 % Dr. Phu Espinoza MD Work Phone: 2(509)230-005050 [place] [address] 05-02-2024 11:40-0500 Systolic blood pressure 134 mm[Hg] Dr. Phu Espinoza MD Work Phone: 4(782)431-991550 [place] [address] 03-22-2024 13:42-0500 Body mass index (BMI) [Ratio] 45.4 kg/m2 Dr. Phu Espinoza MD Work Phone: 5(186)681-022750 [place] [address] 03-22-2024 13:42-0500 Body temperature 97.3 [degF] Dr. Phu Espinoza MD Work Phone: 7(844)287-686350 [place] [address] 03-22-2024 13:42-0500 Body weight 131.[address] Phu Espinoza MD Work Phone: [facility] 03-22-2024 13:42-0500 Diastolic blood pressure 79 mm[Hg] Dr. Phu Espinoza MD Work Phone: [facility] 03-22-2024 13:42-0500 Heart rate 85 /min Dr. Phu Espinoza MD Work Phone: 7(822)437-302550 [place] [address] 03-22-2024 13:42-0500 Respiratory rate 18 /min Dr. Phu Espinoza MD Work Phone: [facility] 03-22-2024 13:42-0500 SaO2% (BldA) [Mass fraction] 96 % Dr. Phu Espinoza MD Work Phone: [facility] 03-22-2024 13:42-0500 Systolic blood pressure 122 mm[Hg] Dr. Phu Espinoza MD Work Phone: [facility] 03-13-2023 08:55-0500 Body temperature 97.8 [degF] Dr. Phu Espinoza Work Phone: [facility] 03-13-2023 08:55-0500 Diastolic blood pressure 76 mm[Hg] Dr. Phu Espinoza Work Phone: 5(715)268-406650 [place] [address] 03-13-2023 08:55-0500 Heart rate 74 /min Dr. Phu Espinoza Work Phone: [facility] 03-13-2023 08:55-0500 Respiratory rate 16 /min Dr. Phu Espinoza Work Phone: [facility] 03-13-2023 08:55-0500 SaO2% (BldA) [Mass fraction] 97 % Dr. Phu Espinoza Work Phone: [facility] 03-13-2023 08:55-0500 Systolic blood pressure 110 mm[Hg] Dr. Phu Espinoza Work Phone: [facility] 03-13-2023 07:08-0500 Body height 170.[address] Phu Espinoza Work Phone: [facility] 03-13-2023 07:08-0500 Body mass index (BMI) [Ratio] 43.4 kg/m2 Dr. Phu Espinoza Work Phone: [facility] 03-13-2023 07:08-0500 Body weight [address] Phu Espinoza Work Phone: [facility] 03-02-2023 11:10-0500 Body height 170.[address] Phu Espinoza Work Phone: [facility] 03-02-2023 11:10-0500 Body mass index (BMI) [Ratio] 44.1 kg/m2 Dr. Phu Espinoza Work Phone: [facility] 03-02-2023 11:10-0500 Body temperature 98.6 [degF] Dr. Phu Espinoza Work Phone: 0(627)676-320650 [place] [address] 03-02-2023 11:10-0500 Body weight 127.[address] Phu Espinoza Work Phone: 5(641)236-661850 [place] [address] 03-02-2023 11:10-0500 Diastolic blood pressure 91 mm[Hg] Dr. Phu Espinoza Work Phone: 5(564)865-713250 [place] [address] 03-02-2023 11:10-0500 Heart rate 87 /min Dr. Phu Espinoza Work Phone: 0(103)624-369550 [place] [address] 03-02-2023 11:10-0500 SaO2% (BldA) [Mass fraction] 95 % Dr. Phu Espinoza Work Phone: 5(697)641-453250 [place] [address] 03-02-2023 11:10-0500 Systolic blood pressure 154 mm[Hg] Dr. Phu Espinoza Work Phone: 6(566)172-742450 [place] [address] 02-15-2023 14:17-0500 Body mass index (BMI) [Ratio] 43.4 kg/m2 Dr. Phu Espinoza Work Phone: [facility] 02-15-2023 14:17-0500 Body weight 125.[address] Phu Espinoza Work Phone: [facility] 02-15-2023 14:17-0500 Diastolic blood pressure 75 mm[Hg] Dr. Phu Espinoza Work Phone: [facility] 02-15-2023 14:17-0500 Respiratory rate 18 /min Dr. Phu Espinoza Work Phone: [facility] 02-15-2023 14:17-0500 Systolic blood pressure 114 mm[Hg] Dr. Phu Espinoza Work Phone: [facility] 11-17-2022 10:41-0400 Body height 171.[address] Phu Espinoza Work Phone: [facility] 11-17-2022 10:41-0400 Body mass index (BMI) [Ratio] 42.8 kg/m2 Dr. Phu Espinoza Work Phone: [facility] 11-17-2022 10:41-0400 Body temperature 98.4 [degF] Dr. Phu Espinoza Work Phone: [facility] 11-17-2022 10:41-0400 Body weight 125.[address] Phu Espinoza Work Phone: [facility] 11-17-2022 10:41-0400 Diastolic blood pressure 78 mm[Hg] Dr. Phu Espinoza Work Phone: [facility] 11-17-2022 10:41-0400 Heart rate 74 /min Dr. Phu Espinoza Work Phone: [facility] 11-17-2022 10:41-0400 Respiratory rate 18 /min Dr. Phu Espinoza Work Phone: [facility] 11-17-2022 10:41-0400 SaO2% (BldA) [Mass fraction] 98 % Dr. Phu Espinoza Work Phone: [facility] 11-17-2022 10:41-0400 Systolic blood pressure 112 mm[Hg] Dr. Phu Espinoza Work Phone: [facility] 08-17-2022 09:18-0400 Body height 171.[address] Phu Espinoza Work Phone: [facility] 08-17-2022 09:18-0400 Body mass index (BMI) [Ratio] 42.6 kg/m2 Dr. Phu Espinoza Work Phone: [facility] 08-17-2022 09:18-0400 Body temperature 98.4 [degF] Dr. Phu Espinoza Work Phone: [facility] 08-17-2022 09:18-0400 Body weight 125.[address] Phu Espinoza Work Phone: [facility] 08-17-2022 09:18-0400 Diastolic blood pressure 69 mm[Hg] Dr. Phu Espinoza Work Phone: [facility] 08-17-2022 09:18-0400 Heart rate 90 /min Dr. Phu Espinoza Work Phone: 3(171)731-738450 [place] [address] 08-17-2022 09:18-0400 Respiratory rate 20 /min Dr. Phu Espinoza Work Phone: 2(174)628-804445 [address] 08-17-2022 09:18-0400 SaO2% (BldA) [Mass fraction] 94 % Dr. Phu Espinoza Work Phone: 7(786)558-303550 [place] [address] 08-17-2022 09:18-0400 Systolic blood pressure 100 mm[Hg] Dr. Phu Espinoza Work Phone: 4(848)541-810768 [place] [address] 05-11-2022 10:40-0500 Body height 171.[address] Phu Espinoza Work Phone: 6(811)425-727968 [place] [address] 05-11-2022 10:40-0500 Body mass index (BMI) [Ratio] 41.2 kg/m2 Dr. Phu Espinoza Work Phone: 2(720)658-067150 [place] [address] 05-11-2022 10:40-0500 Body temperature 97 [degF] Dr. Phu Espinoza Work Phone: 1(366)436-945750 [place] [address] 05-11-2022 10:40-0500 Body weight 121.[address] Phu Espinoza Work Phone: [facility] 05-11-2022 10:40-0500 Diastolic blood pressure 68 mm[Hg] Dr. Phu Espinoza Work Phone: 1(186)370-089350 [place] [address] 05-11-2022 10:40-0500 Heart rate 76 /min Dr. Phu Espinoza Work Phone: 7(930)[phone] [place] [address] 05-11-2022 10:40-0500 Respiratory rate 18 /min Dr. Phu Espinoza Work Phone: [facility] 05-11-2022 10:40-0500 SaO2% (BldA) [Mass fraction] 94 % Dr. Phu Espinoza Work Phone: [facility] 05-11-2022 10:40-0500 Systolic blood pressure 96 mm[Hg] Dr. Phu Espinoza Work Phone: [facility] 03-29-2022 10:32-0500 Body temperature 98 [degF] Dr. Phu Espinoza Work Phone: [facility] 03-29-2022 10:32-0500 Diastolic blood pressure 90 mm[Hg] Dr. Phu Espinoza Work Phone: 8(776)[phone] [address] 03-29-2022 10:32-0500 Heart rate 85 /min Dr. Phu Espinoza Work Phone: 3(813)104-668450 [place] [address] 03-29-2022 10:32-0500 Respiratory rate 20 /min Dr. Phu Espinoza Work Phone: 8(392)[phone] [place] [address] 03-29-2022 10:32-0500 SaO2% (BldA) [Mass fraction] 99 % Dr. Phu Espinoza Work Phone: 4(007)771-916850 [place] [address] 03-29-2022 10:32-0500 Systolic blood pressure 130 mm[Hg] Dr. Phu Espinoza Work Phone: 9(501)876-725050 [place] [address] 03-25-2022 16:55-0500 Body mass index (BMI) [Ratio] 41.3 kg/m2 Dr. Phu Espinoza Work Phone: [facility] 03-25-2022 16:55-0500 Body temperature 98.2 [degF] Dr. Phu Espinoza Work Phone: 0(903)347-321450 [place] [address] 03-25-2022 16:55-0500 Body weight 121.[address] Phu Espinoza Work Phone: [facility] 03-25-2022 16:55-0500 Diastolic blood pressure 82 mm[Hg] Dr. Phu Espinoza Work Phone: [facility] 03-25-2022 16:55-0500 Heart rate 86 /min Dr. Phu Espinoza Work Phone: [facility] 03-25-2022 16:55-0500 Respiratory rate 18 /min Dr. Phu Espinoza Work Phone: [facility] 03-25-2022 16:55-0500 SaO2% (BldA) [Mass fraction] 99 % Dr. Phu Espinoza Work Phone: [facility] 03-25-2022 16:55-0500 Systolic blood pressure 128 mm[Hg] Dr. Phu Espinoza Work Phone: [facility] 02-05-2022 16:25-0500 Body temperature 98.4 [degF] Dr. Phu Espinoza Work Phone: [facility] Work Phone: 02-05-2022 16:25-0500 Diastolic blood pressure 70 mm[Hg] Dr. Phu Espinoza Work Phone: [facility] Work Phone: 02-05-2022 16:25-0500 Heart rate 70 /min Dr. Phu Espinoza Work Phone: [facility] Work Phone: 02-05-2022 16:25-0500 Respiratory rate 18 /min Dr. Phu Espinoza Work Phone: [facility] Work Phone: 02-05-2022 16:25-0500 SaO2% (BldA) [Mass fraction] 97 % Dr. Phu Espinoza Work Phone: [facility] Work Phone: 02-05-2022 16:25-0500 Systolic blood pressure 122 mm[Hg] Dr. Phu Espinoza Work Phone: [facility] Work Phone: 02-05-2022 06:00-0500 Body weight 117.[address] Phu Espinoza Work Phone: [facility] Work Phone: 02-04-2022 13:05-0500 Body height 170.[address] Phu Espinoza Work Phone: [facility] Work Phone: 02-03-2022 23:14-0500 Body mass index (BMI) [Ratio] 40.9 kg/m2 Dr. Phu Espinoza Work Phone: [facility] Work Phone: 02-03-2022 22:03-0500 Body temperature 100.8 [degF] Dr. Phu Espinoza Work Phone: [facility] Work Phone: 02-03-2022 22:03-0500 Diastolic blood pressure 76 mm[Hg] Dr. Phu Espinoza Work Phone: [facility] Work Phone: 02-03-2022 22:03-0500 Heart rate 100 /min Dr. Phu Espinoza Work Phone: [facility] Work Phone: 02-03-2022 22:03-0500 Respiratory rate 20 /min Dr. Phu Espinoza Work Phone: [facility] Work Phone: 02-03-2022 22:03-0500 SaO2% (BldA) [Mass fraction] 96 % Dr. Phu Espinoza Work Phone: [facility] Work Phone: 02-03-2022 22:03-0500 Systolic blood pressure 118 mm[Hg] Dr. Phu Espinoza Work Phone: [facility] Work Phone: 02-03-2022 18:47-0500 Body height 170.[address] Phu Espinoza Work Phone: [facility] Work Phone: 02-03-2022 18:47-0500 Body mass index (BMI) [Ratio] 39.1 kg/m2 Dr. Phu Espinoza Work Phone: [facility] Work Phone: 02-03-2022 18:47-0500 Body weight 113.[address] Phu Espinoza Work Phone: [facility] Work Phone: 11-24-2021 11:48-0400 Body mass index (BMI) [Ratio] 39.8 kg/m2 Dr. Phu Espinoza Work Phone: [facility] Work Phone: 11-24-2021 11:48-0400 Body weight 117.[address] Phu Espinoza Work Phone: [facility] Work Phone: 11-24-2021 11:48-0400 Diastolic blood pressure 80 mm[Hg] Dr. Phu Espinoza Work Phone: [facility] Work Phone: 11-24-2021 11:48-0400 Heart rate 72 /min Dr. Phu Espinoza Work Phone: [facility] Work Phone: 11-24-2021 11:48-0400 Respiratory rate 16 /min Dr. Phu Espinoza Work Phone: [facility] Work Phone: 11-24-2021 11:48-0400 SaO2% (BldA) [Mass fraction] 98 % Dr. Phu Espinoza Work Phone: [facility] Work Phone: 11-24-2021 11:48-0400 Systolic blood pressure 122 mm[Hg] Dr. Phu Espinoza Work Phone: [facility] Work Phone: 08-09-2021 10:43-0400 Body height 171.[address] Phu Espinoza Work Phone: [facility] Work Phone: 08-09-2021 10:43-0400 Body mass index (BMI) [Ratio] 42 kg/m2 Dr. Phu Espinoza Work Phone: [facility] Work Phone: 08-09-2021 10:43-0400 Body temperature 94.5 [degF] Dr. Phu Espinoza Work Phone: [facility] Work Phone: 08-09-2021 10:43-0400 Body weight 123.[address] Phu Espinoza Work Phone: [facility] Work Phone: 08-09-2021 10:43-0400 Diastolic blood pressure 76 mm[Hg] Dr. Phu Espinoza Work Phone: [facility] Work Phone: 08-09-2021 10:43-0400 Heart rate 71 /min Dr. Phu Espinoza Work Phone: [facility] Work Phone: 08-09-2021 10:43-0400 Respiratory rate 16 /min Dr. Phu Espinoza Work Phone: [facility] Work Phone: 08-09-2021 10:43-0400 SaO2% (BldA) [Mass fraction] 97 % Dr. Phu Espinoza Work Phone: [facility] Work Phone: 08-09-2021 10:43-0400 Systolic blood pressure 110 mm[Hg] Dr. Phu Espinoza Work Phone: [facility] Work Phone: 08-09-2021 10:43-0400 Body height 171.[address] Phu Espinoza Work Phone: [facility] Work Phone: 08-09-2021 10:43-0400 Body mass index (BMI) [Ratio] 42 kg/m2 Dr. Phu Espinoza Work Phone: [facility] Work Phone: 08-09-2021 10:43-0400 Body temperature 94.5 [degF] Dr. Phu Espinoza Work Phone: [facility] Work Phone: 08-09-2021 10:43-0400 Body weight 123.[address] Phu Espinoza Work Phone: [facility] Work Phone: 08-09-2021 10:43-0400 Diastolic blood pressure 76 mm[Hg] Dr. Phu Espinoza Work Phone: [facility] Work Phone: 08-09-2021 10:43-0400 Heart rate 71 /min Dr. Phu Espinoza Work Phone: [facility] Work Phone: 08-09-2021 10:43-0400 Respiratory rate 16 /min Dr. Phu Espinoza Work Phone: [facility] Work Phone: 08-09-2021 10:43-0400 SaO2% (BldA) [Mass fraction] 97 % Dr. Phu Espinoza Work Phone: [facility] Work Phone: 08-09-2021 10:43-0400 Systolic blood pressure 110 mm[Hg] Dr. Phu Espinoza Work Phone: [facility] Work Phone: 06-09-2021 13:46-0400 Body height 171.[address] Phu Espinoza Work Phone: [facility] Work Phone: 06-09-2021 13:46-0400 Body mass index (BMI) [Ratio] 43.7 kg/m2 Dr. Phu Espinoza Work Phone: [facility] Work Phone: 06-09-2021 13:46-0400 Body temperature 96.5 [degF] Dr. Phu Espinoza Work Phone: [facility] Work Phone: 06-09-2021 13:46-0400 Body weight 128.[address] Phu Espinoza Work Phone: [facility] Work Phone: 06-09-2021 13:46-0400 Diastolic blood pressure 88 mm[Hg] Dr. Phu Espinoza Work Phone: [facility] Work Phone: 06-09-2021 13:46-0400 Heart rate 87 /min Dr. Phu Espinoza Work Phone: [facility] Work Phone: 06-09-2021 13:46-0400 Respiratory rate 18 /min Dr. Phu Espinoza Work Phone: [facility] Work Phone: 06-09-2021 13:46-0400 SaO2% (BldA) [Mass fraction] 98 % Dr. Phu Espinoza Work Phone: [facility] Work Phone: 06-09-2021 13:46-0400 Systolic blood pressure 140 mm[Hg] Dr. Phu Espinoza Work Phone: [facility] Work Phone: 05-13-2021 07:19-0500 Body mass index (BMI) [Ratio] 45.2 kg/m2 Dr. Phu Espinoza Work Phone: [facility] Work Phone: 05-13-2021 07:19-0500 Body temperature 96.7 [degF] Dr. Phu Espinoza Work Phone: [facility] Work Phone: 05-13-2021 07:19-0500 Body weight 132.[address] Phu Espinoza Work Phone: [facility] Work Phone: 05-13-2021 07:19-0500 Diastolic blood pressure 88 mm[Hg] Dr. Phu Espinoza Work Phone: [facility] Work Phone: 05-13-2021 07:19-0500 Heart rate 93 /min Dr. Phu Espinoza Work Phone: [facility] Work Phone: 05-13-2021 07:19-0500 Respiratory rate 18 /min Dr. Phu Espinoza Work Phone: [facility] Work Phone: 05-13-2021 07:19-0500 SaO2% (BldA) [Mass fraction] 96 % Dr. Phu Espinoza Work Phone: [facility] Work Phone: 05-13-2021 07:19-0500 Systolic blood pressure 140 mm[Hg] Dr. Phu Espinoza Work Phone: [facility] Work Phone: Encounters Encounter Date Encounter Type Care Provider Facility Start: 03-05-2025 ambulatory [facility] y:[facility] Start: 01-02-2025 End: 01-02-2025 Dr. Phu Espinoza MD -Laboratory Phy Offi ce 3rd Utr Start: 01-02-2025 End: 01-02-2025 ambulatory Phu Espinoza Facility:[facility] Start: 12-24-2024 ambulatory Josh Gibbs Facility:[facility] Start: 12-24-2024 Non-patient / Non-visit Dr. Dk DICKENS -[facility] Start: 12-24-2024 Dr. Josh Gibbs MD -[facility] Start: 12-24-2024 End: 12-24-[address] Phu Espinoza MD Work Phone: -Cardiovascular Services Start: 12-24-[address] Josh Gibbs MD -Cardiovascular Services Work Phone: Start: 12-24-2024 End: 12-24-2024 Dr. Josh Gibbs MD -Cardiovascular Serv ices Work Phone: Start: 12-23-2024 End: 12-24-[address] Phu Espinoza MD Work Phone: -Laboratory Start: 12-23-2024 Patient encounter procedure Massiel Gibbons [facility] [employer] [facility] -Laboratory Work Phone: Start: 12-23-2024 End: 12-23-2024 Massiel Gibbons [facility] -Laboratory Work Phone: Start: 12-23-2024 End: 12-23-2024 ambulatory Massiel Shai Facility:[facility] Start: 12-12-2024 End: 12-12-[address] Phu Espinoza MD Work Phone: -Laboratory Start: 12-12-2024 End: 12-12-2024 Patient encounter procedure Massiel Gibbons [facility] [employer] -Laboratory Work Phone: Start: 12-12-2024 End: 12-12-2024 Massiel Gibbons [facility] [employer] -Laboratory Work Phone: Start: 12-12-2024 End: 12-12-2024 Patient encounter procedure Massiel Gibbons C[facility] -[facility] Work Phone: Start: 12-12-2024 End: 12-12-2024 Massiel Gibbons [employer] [facility] -[facility] Work Phone: Start: 12-12-2024 End: 12-12-[address] Phu Espionza MD Work Phone: -[facility] Start: 12-11-2024 End: 12-12-2024 ambulatory Massiel Shai Facility:[facility] Start: 12-11-2024 Non-patient / Non-visit Dr. Dk DICKENS -[facility] Start: 12-11-2024 Dr. Josh Gibbs MD -[facility] Start: 12-10-2024 End: 12-10-[address] Phu Espinoza MD Work Phone: -Cardiovascular Services Start: 12-10-2024 End: 12-10-[address] Josh Gibbs MD -Cardiovascular Services Work Phone: Start: 12-10-2024 End: 12-10-2024 Dr. Josh Gibbs MD -Cardiovascular Serv ices Work Phone: Start: 12-10-2024 End: 12-10-2024 ambulatory Josh Gibbs Facility:[facility] Start: 11-28-2024 Non-patient / Non-visit Dr. Dk DICKENS -[facility] Work Phone: Start: 11-28-2024 End: 11-28-[address] Phu Espinoza MD Work Phone: -Pulmonary Services/Neurology Start: 11-28-2024 End: 11-28-[address] Josh Gibbs MD -Pulmonary Services/Neurology Work Phone: Start: 11-28-2024 End: 11-28-2024 Dr. Josh Gibbs MD -[facility] Work Phone: Start: 11-28-2024 End: 11-28-2024 ambulatory Josh Gibbs Facility:[facility] Start: 11-18-2024 End: 11-18-[address] Phu Espinoza MD Work Phone: -[facility] Start: 11-18-2024 End: 11-18-[address] Phu Espinoza MD -[facility] Work Phone: Start: 11-18-2024 End: 11-18-2024 Dr. Phu Espinoza MD -[facility] Work Phone: Start: 11-18-2024 End: 11-18-2024 ambulatory Phu Espinoza Facility:[facility] Start: 11-08-2024 End: 11-08-[address] Josh Gibbs MD -[facility] Work Phone: Start: 11-08-2024 End: 11-08-2024 Dr. Josh Gibbs MD -[facility] Work Phone: Start: 11-08-2024 End: 11-08-[address] Phu Espinoza MD Work Phone: -[facility] Start: 10-30-2024 ambulatory Phu Espinoza Facility:[facility] Start: 10-30-2024 Non-patient / Non-visit Dr. Jona rojas MD -[facility] Start: 10-30-2024 Dr. Jona Vieira MD -[facility] Start: 10-30-2024 End: 10-30-[address] Phu Espinoza MD Work Phone: -Pulmonary Services/Neurology Start: 10-30-2024 End: 10-30-[address] Phu Espinoza MD -Pulmonary Services/Neurology Work Phone: Start: 10-30-2024 End: 10-30-2024 Dr. Phu Espinoza MD -Pulmonary Services/Neurology Work Phone: Start: 10-30-2024 End: 10-30-2024 ambulatory Phu Espinoza Facility:[facility] Start: 10-21-2024 End: 10-21-[address] Phu Espinoza MD Work Phone: -[facility] Start: 10-21-2024 End: 10-21-[address] Jodi Agee MD -[facility] Work Phone: Start: 10-21-2024 End: 10-21-2024 Dr. Jodi Agee MD -[facility] Work Phone: Start: 10-16-2024 End: 10-16-[address] Phu Espinoza MD Work Phone: -Laboratory Phy Office 3rd Flr Start: 10-16-2024 End: 10-16-[address] Phu Espinoza MD -Laboratory Phy Office 3rd Flr Start: 10-16-2024 End: 10-16-2024 Dr. Phu Espinoza MD -Laboratory Phy Offi ce 3rd Flr Start: 10-16-2024 End: 10-16-2024 ambulatory Phu Espinoza Facility:[facility] Start: 10-11-2024 End: 10-11-[address] Phu Espinoza MD Work Phone: -Laboratory Specimen Start: 10-11-2024 End: 10-11-[address] Phu Espinoza MD -Laboratory Specimen Work Phone: Start: 10-11-2024 End: 10-11-2024 Dr. Phu Espinoza MD -Laboratory Specimen Work Phone: Start: 10-10-2024 End: 10-11-[address] Phu Espinoza MD Work Phone: -Laboratory Phy Office 3rd Flr Start: 10-10-2024 End: 10-10-[address] Phu Espinoza MD -Laboratory Phy Office 3rd Flr Start: 10-10-2024 End: 10-10-2024 Dr. Phu Espinoza MD -Laboratory Phy Offi ce 3rd Flr Start: 10-10-2024 End: 10-10-2024 ambulatory Phu Espinoza Facility:[facility] Start: 10-07-2024 Non-patient / Non-visit Dr. Dk DICKENS -[facility] Start: 10-07-2024 Dr. Josh Gibbs MD [facility] Start: 10-07-2024 ambulatory Ronda Schaefer Facility:[facility] Start: 10-07-2024 Non-patient / Non-visit Dr. Ronda espinal MD -[facility] Start: 10-07-2024 Dr. Ronda Schaefer MD [facility] Start: 10-07-2024 Non-patient / Non-visit Dr. Octavio cummings MD -[facility] Work Phone: Start: 10-07-2024 Dr. Octavio Archuleta MD -[facility] Work Phone: Start: 10-06-2024 Non-patient / Non-visit Dr. Kateryna Gomez MD -[facility] Work Phone: Start: 10-06-2024 Dr. Megan agarwal MD -[facility] Work Phone: Start: 10-05-2024 End: 10-07-2024 ambulatory Junior Dunn Facility:[facility] Start: 10-05-2024 End: 10-07-2024 Evaluation and management of inpatient Dr. Junior Dunn DO -Progressive Care Unit Work Phone: Start: 10-05-2024 End: 10-07-[address] Phu Espinoza MD Work Phone: -Progressive Care Unit Start: 10-05-2024 End: 10-07-2024 Dr. Octavio Archuleta MD -[facility] it Work Phone: Start: 07-03-2024 End: 07-03-[address] Phu Espinoza MD Work Phone: [facility] Work Phone: Start: 07-03-2024 End: 07-03-[address] Phu Espinoza MD -Laboratory Work Phone: Start: 07-03-2024 End: 07-03-2024 ambulatory [facility] Facility:[facility] Start: 05-02-2024 End: 05-02-2024 Patient encounter procedure Massiel Gibbons [employer] [facility] -Laboratory Work Phone: Start: 05-02-2024 End: 05-02-2024 Patient encounter procedure Massiel Gibbons CUT [employer] T[employer] GLASS-C -[facility] Work Phone: Start: 05-02-2024 End: 05-02-2024 ambulatory Masisel Shai Facility:[facility] Start: 05-02-2024 End: 05-02-2024 ambulatory Massiel Shai Facility:[facility] Start: 04-19-2024 End: 04-19-[address] Jodi Agee MD -Cat Scan, [facility] Work Phone: Start: 04-19-2024 End: 04-19-2024 ambulatory Jodi Agee Facility:[facility] Start: 03-22-2024 End: 03-22-[address] Jodi Agee MD -[facility] Work Phone: Start: 03-22-2024 End: 03-22-2024 ambulatory Jodi Agee Facility:[facility] Start: 03-04-2024 End: 03-04-2024 ambulatory Phu Jovan Snowok Facility:[facility] Start: 02-17-2024 ambulatory Phu Jovan Alexis Facility:[facility] Start: 02-16-2024 End: 02-16-2024 ambulatory Massiel Shai Facility:[facility] Start: 06-22-2023 End: 06-22-[address] Phu Espinoza Work Phone: [facility] Work Phone: Start: 06-22-2023 End: 06-22-[address] Phu Espinoza Work Phone: [facility]-Radiology, [facility] Work Phone: Start: 04-03-2023 End: 04-03-[address] Phu Espinoza Work Phone: [facility] Work Phone: Start: 04-03-2023 End: 04-03-[address] Phu Espinoza Work Phone: [facility]-Laboratory, Phy Office 3rd Flr Start: 03-13-2023 Non-patient / Non-visit Dr. Sloan Espinoza Work Phone: [facility] Start: 03-13-2023 End: 03-13-2023 Admission to same day surgery center Dr. Phu Espinoza Work Phone: [facility]-Endoscopy Work Phone: Start: 03-13-2023 End: 03-13-[address] Phu Espinoza Work Phone: [facility] Work Phone: Start: 03-02-2023 End: 03-02-[address] Phu Espinoza Work Phone: [facility] Work Phone: Start: 03-02-2023 End: 03-02-[address] Phu Espinoza Work Phone: [facility] Work Phone: Start: 03-02-2023 End: 03-02-[address] Phu Espinoza Work Phone: [facility] Work Phone: Start: 02-15-2023 End: 02-15-[address] Phu Espinoza Work Phone: [facility] Work Phone: Start: 02-08-2023 End: 02-08-[address] Phu Espinoza Work Phone: [facility] Work Phone: Start: 02-08-2023 End: 02-08-[address] Phu Espinoza Work Phone: [facility], y Office 3rd Utr Start: 01-11-2023 End: 01-11-[address] Phu Espinoza Work Phone: [facility] Work Phone: Start: 01-11-2023 End: 01-11-[address] Phu Espinoza Work Phone: [facility], Specimen Work Phone: Start: 01-09-2023 End: 01-09-[address] Phu Espinoza Work Phone: [facility] Work Phone: Start: 01-09-2023 End: 01-09-[address] Phu Espinoza Work Phone: [facility], [facility]rd Flr Start: 01-03-2023 End: 01-03-[address] Phu Espinoza Work Phone: [facility], [facility] Office 3rd Utr Start: 11-17-2022 End: 11-17-[address] Phu Espinoza Work Phone: [facility] Work Phone: Start: 08-17-2022 End: 08-17-[address] Phu Espinoza Work Phone: [facility] Work Phone: Start: 08-17-2022 End: 08-17-[address] Phu Espinoza Work Phone: [facility] Work Phone: Start: 08-17-2022 End: 08-17-[address] Phu Espinoza Work Phone: [facility] Work Phone: Start: 06-28-2022 End: 06-28-[address] Phu Espinoza Work Phone: [facility] Work Phone: Start: 06-28-2022 End: 06-28-[address] Phu Espinoza Work Phone: [facility], [facility] Office 3rd Utr Start: 05-11-2022 End: 05-11-[address] Phu Espinoza Work Phone: [facility] Start: 03-29-2022 End: 03-29-[address] Phu Espinoza Work Phone: [facility] Start: 03-25-2022 End: 03-25-[address] Phu Espinoza Work Phone: [facility] Start: 02-08-2022 End: 02-08-[address] Phu Espinoza Work Phone: [facility] Work Phone: Start: 02-08-2022 End: 02-08-[address] Phu Espinoza Work Phone: [facility] Start: 02-05-2022 Non-patient / Non-visit Dr. Sloan Espinoza Work Phone: [facility] Start: 02-04-2022 Non-patient / Non-visit Dr. Sloan Espinoza Work Phone: [facility] Start: 02-04-2022 Non-patient / Non-visit Dr. Sloan Espinoza Work Phone: [facility] Start: 02-03-2022 End: 02-05-2022 Evaluation and management of inpatient Dr. Phu Espinoza Work Phone: [facility] Start: 02-03-[address] Phu Espinoza Work Phone: [facility] Work Phone: Start: 12-21-2021 End: 12-21-[address] Phu Espinoza Work Phone: [facility], [facility] Office 3rd Flr Start: 11-24-2021 End: 11-24-[address] Phu Espinoza Work Phone: [facility] Start: 10-20-2021 End: 10-20-[address] Phu Espinoza Work Phone: [facility] Start: 09-21-2021 End: 09-21-[address] Phu Espinoza Work Phone: [facility], [facility] Office 3rd Flr Start: 08-25-2021 End: 08-25-[address] Phu Espinoza Work Phone: [facility] Start: 08-09-2021 End: 08-09-[address] Phu Espinoza Work Phone: [facility] Start: 07-21-2021 End: 07-21-[address] Phu Espinoza Work Phone: [facility], y Office 3rd Flr Start: 07-20-2021 End: 07-20-[address] Phu Epsinoza Work Phone: [facility], y Office 3rd Flr Start: 07-19-2021 End: 07-19-[address] Phu Espinoza Work Phone: [facility], y Office 3rd Flr Start: 06-23-2021 End: 06-23-[address] Phu Espinoza Work Phone: [facility], y Office 3rd Flr Start: 06-09-2021 End: 06-09-[address] Phu Espinoza Work Phone: [facility], [facility] Start: 05-18-2021 End: 05-18-[address] Phu Espinoza Work Phone: [facility], Specimen Start: 05-17-2021 End: 05-17-[address] Phu Espinoza Work Phone: [facility], y Office 3rd Flr Start: 05-13-2021 End: 05-13-[address] Phu Espinoza Work Phone: [facility] Start: 04-14-2021 End: 04-14-[address] Phu Espinoza Work Phone: [facility], y Office 3rd Flr Start: 03-10-[address] Phu Espinoza Work Phone: [facility] Office 3rd Flr Start: 09-14-2006 End: 09-14-2006 Patient encounter procedure Fransisco Cary Work Phone: [facility] Start: 09-14-2006 Results Only Fransisco cherry Work Phone: [facility] Procedures Date Procedure Procedure Detail Performing Clinician Start: 01-02-2025 Mean corpuscular hem oglobin concentration determination Dr. Phu Espinoza MD Work Phone: Start: 01-02-[address] Sloan Espinoza MD Work Phone: Start: 01-02-2025 Nucleated red blood cell count procedure Dr. Phu Espinoza MD Work Phone: Start: 01-02-2025 Platelet mean volume determination Dr. Phu Espinoza MD Work Phone: Start: 12-23-[address] Samuel Espinoza MD Work Phone: Start: 12-23-[address] Jacqueline Espinoza MD Work Phone: Start: 12-23-2024 Measurement of Borre ericka burgdorferi antibody Dr. Phu Espinoza MD Work Phone: Start: 12-23-2024 Mean corpuscular hem oglobin concentration determination Dr. Phu Espinoza MD Work Phone: Start: 12-23-[address] Sloan Espinoza MD Work Phone: Start: 12-23-2024 Nucleated red blood cell count procedure Dr. Phu Espinoza MD Work Phone: Start: 12-23-2024 Platelet mean volume determination Dr. Phu Espinoza MD Work Phone: Start: 12-12-[address] Phu Espinoza MD Work Phone: Start: 12-12-2024 Mean corpuscular hem oglobin concentration determination Dr. Phu Espinoza MD Work Phone: Start: 12-12-[address] Sloan Espinoza MD Work Phone: Start: 12-12-2024 Nucleated red blood cell count procedure Dr. Phu Espinoza MD Work Phone: Start: 12-12-2024 Platelet mean volume determination Dr. Phu Espinoza MD Work Phone: Start: 11-18-2024 MRI of brain without contrast Dr. Phu Espinoza MD Work Phone: Start: 11-18-2024 MRI of cervical spine D marco a Espinoza MD Work Phone: Start: 10-16-2024 Mean corpuscular hem oglobin concentration determination Dr. Phu Espinoza MD Work Phone: Start: 10-16-[address] Sloan Espinoza MD Work Phone: Start: 10-16-2024 Nucleated red blood cell count procedure Dr. Phu Espinoza MD Work Phone: Start: 10-16-2024 Platelet mean volume determination Dr. Phu Espinoza MD Work Phone: Start: 10-11-2024 Measurement of occul t blood in stool specimen using immunoassay Dr. Phu Espinoza MD Work Phone: Start: 10-10-2024 Folic acid measurement, RBC Dr. Phu Espinoza MD Work Phone: Comment on above: Performed at: [address] [id number] Director: Spencer Carbajal PhD, Phone: [phone] Start: 10-10-2024 In-vitro immunologic test Dr. Phu [...] productionof interferon gamma. Chemiluminescence immunoassaymethodology Start: 10-10-2024 Mean corpuscular hem oglobin concentration determination Dr. Phu Espinoza MD Work Phone: Start: 10-10-[address] Sloan Espinoza MD Work Phone: Start: 10-10-2024 Nucleated red blood cell count procedure Dr. Phu Espinoza MD Work Phone: Start: 10-10-2024 Platelet mean volume determination Dr. Phu Espinoza MD Work Phone: Start: 10-10-2024 Total iron binding c apacity measurement Dr. Phu Espinoza MD Work Phone: Start: 10-10-2024 Urine microscopy: red cells Dr. Phu Espinoza MD Work Phone: Start: [...] Phu Espinoza MD Work Phone: Start: 10-07-2024 Mean corpuscular hem oglobin concentration determination Dr. Phu Espinoza MD Work Phone: Start: 10-07-[address] Sloan Espinoza MD Work Phone: Start: 10-07-2024 Platelet mean volume determination Dr. Phu Espinoza MD Work Phone: Start: 10-07-2024 Total cholesterol:HD L ratio measurement Dr. Phu Espinoza MD Work Phone: Start: 10-07-[address] Phu Espinoza MD Work Phone: Start: 10-05-2024 End: 10-05-2024 D-dimer assay, quantitative Dr. Phu Espinoza MD Work Phone: Comment on above: NORMAL D-Dimer level (<0.50) indicates no DVT or PE. Start: 10-05-2024 Plain chest X-ray Dr. Samuel Espinoza MD Work Phone: Start: 10-05-[address] Phu Espinoza MD Work Phone: Start: 10-05-2024 Nucleated red blood cell count procedure Dr. Phu Espinoza MD Work Phone: Start: [...] ane Start: 09-14-2006 CONVERTED SURGICAL PATHOLOGY Fransisco Cary Work Phone: Bacteria identified in Blood by Culture Dr. Phu Espinoza Work Phone: Respiratory Panel (PCR) Dr. Phu Espinoza Work Phone: SARS-CoV-2 & FLU Antigen (Rapid) Dr. Phu Espinoza Work Phone: Urine culture Dr. Phu Espinoza Work Phone: Plan of Treatment Date Care Activity Detail Author Start: 12-23-2024 Patient encounter procedure [facility] Work Phone: Start: 11-08-2024 Tilt table test [facility] Start: 11-08-2024 End: 11-08-2024 Evaluation of diagnostic study results [facility] Start: 10-10-2024 Folic acid measurement, RBC [facility] Start: 10-10-2024 In-vitro immunologic test [facility] Start: 10-10-2024 [facility] Start: 10-10-2024 Blood culture Blood Culture [facility] Start: 10-07-2024 Patient discharge [facility] Start: 10-06-2024 [facility] Start: 10-06-2024 Following clinical pathway protocol [facility] Start: 10-06-2024 [facility] Start: 10-05-2024 Following clinical pathway protocol [facility] Start: 10-05-2024 Ambulation without limitation [facility] Start: 10-05-2024 Assessment of risk of venous thromboembolism [facility] Start: 10-05-2024 Care regimes management [facility] Start: 10-05-2024 Insertion of catheter into peripheral vein [facility] Start: 10-05-2024 Measuring intake and output [facility] Start: 10-05-2024 Notification of physician [facility] Start: 10-05-2024 Oxygen therapy [facility] Start: 10-05-2024 Providing care according to standard [facility] Start: 10-05-2024 End: 10-05-2024 [facility] Start: 10-05-2024 Cardiovascular stress test using pharmacologic stress agent Nuclear Stress Test - Chemical [facility] Start: 10-05-2024 Verification routine [facility] Start: 10-05-2024 Admission procedure [facility] Start: 10-05-2024 Hospital admission, emergency, from emergency room, medical nature [facility] Start: 10-05-2024 [facility] Start: 03-13-2023 Colonoscopy w/biopsy single/multiple COLONOSCOPY AND BIOPSY [facility] Start: 03-13-2023 Egd transoral biopsy single/multiple EGD BIOPSY SINGLE/MULTIPLE [facility] Start: 03-13-2023 Patient discharge [facility] Start: 02-05-2022 Patient discharge [facility] Work Phone: Start: 02-04-2022 Care planning and problem solving actions [facility] Work Phone: Start: 02-03-2022 Following clinical pathway protocol [facility] Work Phone: Start: 02-03-2022 Assessment of risk of venous thromboembolism [facility] Work Phone: Start: 02-03-2022 Care regimes management [facility] Work Phone: Start: 02-03-2022 Incentive spirometry [facility] Work Phone: Start: 02-03-2022 Inhalation therapy procedure [facility] Work Phone: Start: 02-03-2022 Insertion of catheter into peripheral vein [facility] Work Phone: Start: 02-03-2022 Introduction of urinary catheter [facility] Work Phone: Start: 02-03-2022 Measuring intake and output [facility] Work Phone: Start: 02-03-2022 Providing care according to standard [facility] Work Phone: Start: 02-03-2022 Provision of activity privileges [facility] Work Phone: Start: 02-03-2022 Referral to general surgeon [facility] Work Phone: Start: 02-03-2022 End: 02-03-2022 [facility] Work Phone: Start: 02-03-2022 Verification routine [facility] Work Phone: Start: 02-03-2022 Admission procedure [facility] Work Phone: Start: 02-03-2022 End: 02-03-2022 [facility] Work Phone: Start: 02-03-2022 End: 02-03-2022 Blood culture [facility] Work Phone: Start: 02-03-2022 Patient referral to dietitian [facility] Work Phone: Start: 02-10-2021 HPV TESTING HPV TESTING [facility] Start: 02-10-2021 PAP TESTING PAP TESTING [facility] Start: 11-26-2019 Influenza vaccination INFLUENZA (#1) [facility] Start: 02-18-2017 Mammography MAMMOGRAM [facility] Start: 1989 Urine microalbumin profile DTAP,TDAP,TD (1 - Tdap) [facility] Start: 1988 ANNUAL PCP TEAM CHRONIC DISEASE VISIT ANNUAL PCP TEAM CHRONIC DISEASE VISIT [facility] Start: 1988 Hepatitis B surface antibody level LDL CHOLESTEROL [facility] Start: 1988 HEPATITIS C SCREENING HEPATITIS C SCREENING [facility] Start: 1988 HIV SCREENING HIV SCREENING [facility] Start: 1986 ONE PNEUMOVAX PRIOR TO AGE 65 ONE PNEUMOVAX PRIOR TO AGE 65 [facility] Start: 1980 [object Object] DIABETIC FOOT EXAM [facility] Start: 1980 Hepatitis B screening URINE ALBUMIN:CREATININE RATIO [facility] Start: 1980 Hepatitis C antibody, confirmatory test DILATED RETINAL EXAM [facility] Start: 1975 HbA1c (Bld) [Mass fraction] [facility] in Ambulatory ECG [facility] Anion gap in Serum o r Plasma [facility] Bacteria identified in Blood by Culture Blood Culture [facility] Work Phone: Bacteria identified in Urine by Culture Urine Culture [facility] Work Phone: Blood culture [facility] Work Phone: BUN/Creatinine ratio [facility] Calcium [Mass/volume ] in Serum or Plasma [facility] Carbon dioxide, tota l [Moles/volume] in Central venous blood [facility] Cardiovascular stres s testing [facility] Colonoscopy [facility] Creatinine [Mass/vol ume] in Serum or Plasma [facility] Folate [Moles/volume ] in Serum or Plasma [facility] Glucose [Mass/volume ] in Serum or Plasma [facility] Hematocrit [Volume Fraction] of Blood [facility] Hemoglobin A1c/Hemoglobin.total in Blood [facility] Work Phone: Hemoglobin A1c/Hemoglobin.total in Blood [facility] Laboratory data interpretation [facility] Measurement of Borre ericka burgdorferi antibody [facility] Measurement of renal function [facility] Mycobacterium tuberc ulosis tuberculin stimulated gamma interferon [Presence] in Blood [facility] Patient Education ED Abdominal P ain Unkn Cause Fem [facility] Work Phone: Patient referral [facility] Work Phone: Potassium measurement [facility] Serum chloride measurement [facility] Sodium measurement [facility] T4 free measurement [facility] Work Phone: Thyroid stimulating hormone measurement [facility] Work Phone: Troponin T.cardiac [Mass/volume] in Serum or Plasma by High sensitivity method [facility] Troponin T.cardiac [Mass/volume] in Serum or Plasma by High sensitivity method [facility] Urea nitrogen [Mass/ volume] in Serum or Plasma [facility] Immunizations Immunization Date Immunization Notes Care Provider Fa [facility] 12-21-2021 Covid ([place]) Dr. Phu Espinoza Work Phone: [facility] 12-21-2021 influenza, injectabl e, quadrivalent, preservative free Dr. Phu Espinoza Work Phone: [facility] 12-21-2021 influenza, seasonal, injectable Dr. Phu Espinoza Work Phone: [facility] Payers Date Payer Category Payer Private Health Insurance [id number] 2024 Self-pay [id number] 2024 Unknown [id number] 1999 Unknown MMO [employer]ZZ[employer] SU[employer] PLUS [id number] 1999-2008 PPO [id number] Unknown [id number] Unknown [facility] PACKAGE PLAN [id number] Unknown [id number] 2.16.840.1.849649.3.579.2.4 62 Unknown [id number] 2.16.840.1.343785.3.579.2.4 62 Unknown [id number] 2.16.840.1.715376.3.579.2.4 62 Unknown [id number] 2.16.840.1.755752.3.579.2.4 62 Unknown [id number] 2.16.840.1.876672.3.579.2.4 62 Unknown [id number] 2.16.840.1.248353.3.579.2.4 62 Unknown [id number] 2.16.840.1.362460.3.579.2.4 62 Unknown [id number] 2.16.840.1.282549.3.579.2.4 62 Unknown [id number] 2.16.840.1.506335.3.579.2.4 62 Unknown [id number] 2.16.840.1.419431.3.579.2.4 62 Unknown [id number] 2.16.840.1.186925.3.579.2.4 62 Unknown [id number] 2.16.840.1.077787.3.579.2.4 62 Unknown [id number] 2.16.840.1.534441.3.579.2.4 62 Unknown [id number] 2.16.840.1.011130.3.579.2.4 62 Unknown [id number] 2.16.840.1.567165.3.579.2.4 62 Unknown [id number] 2.16.840.1.176261.3.579.2.4 62 Unknown [id number] 2.16.840.1.638987.3.579.2.4 62 Unknown [id number] 2.16.840.1.356578.3.579.2.4 62 Unknown [id number] 2.16.840.1.973815.3.579.2.4 62 Unknown [id number] 2.16.840.1.265185.3.579.2.4 62 Unknown [id number] 2.16.840.1.107569.3.579.2.4 62 Unknown [id number] 2.16.840.1.665688.3.579.2.4 62 Unknown [id number] 2.16.840.1.439819.3.579.2.4 62 Unknown [id number] 2.16.840.1.202437.3.579.2.4 62 Unknown [id number] 2.16.840.1.419301.3.579.2.4 62 Unknown [id number] 2.16.840.1.304312.3.579.2.4 62 Unknown [id number] 2.16.840.1.114096.3.579.2.4 62 Unknown [id number] 2.16.840.1.423393.3.579.2.4 62 Unknown [id number] 2.16.840.1.975931.3.579.2.4 62 Unknown [id number] 2.16.840.1.809667.3.579.2.4 62 Unknown [id number] 2.16.840.1.123873.3.579.2.4 62 Unknown [id number] 2.16.840.1.032429.3.579.2.4 62 Unknown [id number] 2.16.840.1.526425.3.579.2.4 62 Social History Date Type Detail Facility Start: 02-08-2006 End: 10-21-2024 Tobacco smoking status NHIS Never smoker [facility] Start: 02-08-2006 Alcohol intake Current non-dr reimbursement rep of alcohol (finding) [facility] Sex Assigned At Not on file [facility] Start: 06-09-2021 End: 03-07-2023 Tobacco smoking status VTIS Unknown if ever smoked [facility] Start: 05-18-[address] [facility] Start: 05-18-2020 Spouse/ Signif icant Other [facility] Start: 02-03-[address]-sm[address] [facility] Start: 1970 Sex Assigned At Female [facility] Start: 07-09-2024 Sex Female (finding) [facility] Sex [facility] Goals Date Patient Goal Desired Activity /State Functional Status Date Assessment Result Facility 10-07-2024 Functional status With Assist of 1 [facility] Work Phone: 10-07-[address] [facility] Work Phone: 02-05-2022 Functional status Up ad edgard;Bathroom Priv ilege [facility] Work Phone: Mental Status Date Assessment Result Facility 10-07-2024 Cognitive function Voice/Name [facility] Work Phone: 10-05-2024 Cognitive function Voice/Name [facility] Work Phone: 03-13-2023 Cognitive function Voice/Name [facility] Work Phone: 03-13-2023 Cognitive function Patient Orien tation Person;Place;Time [facility] Work Phone: 02-05-2022 Cognitive function Voice/Name [facility] Work Phone: 02-03-2022 Cognitive function Level Of Cons ciousness Awake;Alert;Appropriate;Follow s Commands [facility] Work Phone: Clinical Notes 03-13-2023 to 12-24-2024 Note Date & Type Note Facility 12-24-2024 Procedure note [facility] 12-12-2024 Progress note [facility] 10-30-2024 Procedure note [facility] 10-07-2024 Discharge summary [facility] 10-07-2024 Note [facility] Medical Records Department [facility] [place] [address] Discharge Summary 10/07/24 1608 MR#: [id number] Acct: [id number] Name: ARLEN NGUYEN Rep #: [id number] : 1970 54 From: Octavio Archuleta MD PCP: Dr. Phu Espinoza MD Status:ADM NATALIE Location: [place] [address] Providers Date of Admission: 10/05/24 Date of Discharge: 10/07/24 Primary Care Physician: Dr. Phu Espinoza MD Reason For Visit: CHEST PAIN Diagnosis Discharge Diagnosis (1) Chest pain: Status: Acute Code(s): R07.9 - Chest pain, unspecified Plan Patient is a 54-year-old female who presented with chest pain 1. Chest pain ??? Patient was placed on a monitored bed [place] was ruled out with serial cardiac enzymes [...] % (Auto) 48.3, Lymph % (Auto) 37.9, [place] % (Auto) 10.8 H, Eos % (Auto) [...] Maria E Dunn (more content not included)... [facility] 10-07-2024 Progress note Note Date/Time October 07, 2024 12:29pm [facility] Medical Records Department [address] [facility] [place] [address] Progress Note - Hospitalist 10/07/24 1004 MR#: [id number] Acct: [id number] Name: ARLEN NGUYEN Rep #:[id number] : 1970 54 From: Octavio Archuleta MD PCP: Dr. Phu Espinoza MD Status:ADM I NO Location: [place] [address] Reason for Visit Chief Complaint: Chest pain [...] Neut % (Auto) 48.3, Lymph % (Auto) 37.9,[place] % (Auto) 10.8 H, Eos % (Auto) [...] Patient was placed on a monitored bed [place] was ruled out with serial cardiac enzymes [...] Subcu heparin Charges/Coding Visit Charges Inpatient E&M: 48485 Subs Hosp L2 10/07/24 1229 <Electronically signed by Octavio Archuleta MD> Cosigner Signature (if applicable): CC: ~ Signed [facility] Work Phone: 1(263) 764-193807-14-2025 Hospital Discharge instructionsAdditional Instructions [facility]: [facility] Work Phone: 1(600) 266-854107-14-2025 Progress note [facility] Medical Records Department [address] [place] [address] Progress Note - Hospitalist 10/07/24 1004 MR#: [id number] Acct: [id number] Name: ARLEN NGUYEN Rep #:[id number] : 1970 54 From: Octavio Archuleta MD PCP: Dr. Phu Espinoza MD Status:ADM I NO Location: [place] [address] Reason for Visit Chief Complaint: Chest pain [...] 0.300,Neut % (Auto) 48.3, Lymph % (Auto) 37.9,[place] % (Auto) 10.8 H, Eos % (Auto) [...] Patient was placed on a monitored bed [place] was ruled out with serial cardiac enzymes [...] Subcu heparin Charges/Coding Visit Charges Inpatient E&M: 13984 Subs Hosp L2 10/07/24 1229 Cosigner Signature (if applicable): CC: ~ Signed [facility]07-13-2025 Progress note Author Megan Gomez [facility] Note Date/Time October 06, 2024 12:2 2pm [facility] Medical Records Department [address] [place] [address] Progress Note - Hospitalist 10/06/24706 MR#: [id number] Acct: [id number] Name: ARLEN NGUYEN Rep #:[id number] : 1970 54 From: Megan Gomez MD PCP: Dr. Phu Espinoza MD Status:ADM I NO Location: [place] [address] Reason for Visit Reason for Visit: Diagnoses [...] % (Auto) 51.7, Lymph % (Auto) 36.5, [place] % (Auto) 9.5, Eos % (Auto) 1.6, [...] IMPRESSION: No acute cardiopulmonary abnormality. Reading Location: [id number] Physical Exam Narrative Physical Examination: General: Awake, [...] report, Morbid obesity who presents to the [facility] ED on 10/05/2024 with onset of [...] prophylaxis: Lovenox. Charges/Coding Visit Charges Inpatient E&M: 44288 Subs Hosp L2 10/06/24 1222 <Electronically signed by Megan Gomez MD> Cosigner Signature (if applicable): CC: ~ Signed [facility] Work Phone: 1(557) 492-539307-13-2025 Progress note [facility] Medical Records Department [address] [facility] [place] [address] Progress Note - Hospitalist 10/06/24706 MR#: [id number] Acct: [id number] Name: ARLEN NGUYEN Rep #:[id number] : 1970 54 From: Megan Gomez MD PCP: Dr. Phu Espinoza MD Status:ADM I NO Location: [place] [address] Reason for Visit Reason for Visit: Diagnoses [...] % (Auto) 51.7, Lymph % (Auto) 36.5, [place] % (Auto) 9.5, Eos % (Auto) 1.6, [...] IMPRESSION: No acute cardiopulmonary abnormality. Reading Location: [facility] Physical Exam Narrative Physical Examination: General: Awake, [...] report, Morbid obesity who presents to the [facility] ED on 10/05/2024 with onset of [...] prophylaxis: Lovenox. Charges/Coding Visit Charges Inpatient E&M: 51514 Subs Hosp L2 10/06/24 1222 Cosigner Signature (if applicable): CC: ~ Signed [facility]07-13-2025 History and physical note Author Junior Dunn [facility] Note Date/Time October 05, 2024 11:5 8pm [facility] Medical Records Department [address] [place] [address] H&P Exam - Hospitalist 10/05/242109 MR#: [id number] Acct: [id number] Name: ARLEN NGUYEN Rep #:[id number] : 1970 54 From: Junior allison DO PCP: Dr. Phu Espinoza MD Status:ADM I NO Location: [place] [address]- 1 HPI - General General Date of Admission: 10/05/24 Date of Service: 10/05/24 Chief Complaint: Chest pain HPI Narrative ARLEN NGUYEN, is a 54 F who presented to [facility] ED on 10/05/2024 with chest pain. Medical [...] concerns. Will be admitted for further management. [facility] Medical History Post-menopausal Wears contact lenses [...] % (Auto) 51.7, Lymph % (Auto) 36.5, [place] % (Auto) 9.5, Eos % (Auto) 1.6, [...] IMPRESSION: No acute cardiopulmonary abnormality. Reading Location: [id number] Assessment & Plan Assessment/Plan (1) Chest pain: PLAN: Plan Patient is a 54-year-old female who presented [facility] ED on 10/05/2024 with chest pain. 1. [...] 75 minutes. Charges/Coding Visit Charges Inpatient E&M: 46860 Init Hosp L3 10/05/24 0002 <Electronically signed by Junior Dunn DO> Cosigner Signature (if applicable): CC: Dr. Junior Dunn DO; Dr. Phu Espinoza MD~ Signed [facility] Work Phone: 1(260) 731-387807-12-2025 History and physical note [facility] Medical Records Department [address] [place] [address] H&P Exam - Hospitalist 10/05/242109 MR#: [id number] Acct: [id number] Name: ARLEN NGUYEN Rep #:[id number] : 1970 54 From: Junior allison DO PCP: Dr. Phu Espinoza MD Status:ADM I NO Location: [facility] [id number]- 1 HPI - General General Date of Admission: 10/05/24 Date of Service: 10/05/24 Chief Complaint: Chest pain HPI Narrative ARLEN NGUYEN, is a 54 F who presented to [facility] ED on 10/05/2024 with chest pain. Medical [...] concerns. Will be admitted for further management. [facility] Medical History Post-menopausal Wears contact lenses [...] % (Auto) 51.7, Lymph % (Auto) 36.5, [place] % (Auto) 9.5, Eos % (Auto) 1.6, [...] IMPRESSION: No acute cardiopulmonary abnormality. Reading Location: [id number] Assessment & Plan Assessment/Plan (1) Chest pain: PLAN: Plan Patient is a 54-year-old female who presented [facility] ED on 10/05/2024 with chestpain. 1. Chest [...] 75 minutes. Charges/Coding Visit Charges Inpatient E&M: 72885 Init Hosp L3 10/05/24 8453 Cosigner Signature (if applicable): CC: Dr. Junior Dunn DO; Dr. Phu Espinoza MD~ Signed [facility]07-12-2025 Discharge summary Author Anton Thacker [facility] Note Date/Time October 05, 2024 9:51 pm [facility] Medical Records Department [address] [place] [address] Emergency Department Summary 10/05/24 MR#: [id number] Acct: [id number] Name: ARLEN NGUYEN Rep #:[id number] : 1970 54 From: Anton Thacker DO PCP: Dr. Phu Espinoza MD Status:ADM I NO Location: [place] [address] HPI History of Present Illness Chief Complaint: [...] surgery although she recently had travel to [place] by car but it was less than 4 hours. No history of PE or DVT. She has no heart history. She is a diabetic and has history of hypertension and high cholesterol. Patient also with historyof anxiety and history of GERD. Currently rates her pain a 5 out of 10. [facility] Medical History Post-menopausal Wears contact lenses [...] % (Auto) 51.7 Lymph % (Auto) 36.5 [place] % (Auto) 9.5 Eos % (Auto) 1.6 [...] IMPRESSION: No acute cardiopulmonary abnormality. Reading Location: [id number] 1 view chest x-ray obtained interpreted by [...] MD [Primary Care Provider] - Print Language: Greek Disposition Disposition: Acute Care Hospital [facility] What to do if you have Problems For any increased pain, shortness of breath, bleeding, nausea or vomiting, chestpain, or any unexpected problems, contact your Primary Care Provider. Call [facility] ([phone]) or report to the closest Emergency Room. Call 911 if necessary. 10/05/242150 <Electronically signed by Anton Thacker DO> Cosigner Signature (if applicable): CC: Dr. Phu Espinoza MD ~ Signed [facility] Work Phone: 1(142) 223-697207-12-2025 Evaluation note* Diagnosis Onset Date Resolution Status Admit Date Acute coronary syndrome acute 2024 9:10pm Chest pain acute October 05 9:10pm Diabetes acute October 05 9:10pm Hypertension chronic October 05 025 9:10pm [facility] Work Phone: 1([phone]) 524-473507-12-2025 Evaluation note* Diagnosis Onset Date Resolution Status Admit Date Diabetes acute October 05 9:10pm Hypertension chronic October 05 025 9:10pm Chest pain resolved October 05 9:10pm Acute coronary syndrome inactive 2024 9:10pm [facility] Work Phone: 1([phone]) 675-490707-12-2025 Evaluation note* Diagnosis Onset Date Resolution Status Admit Date Acute coronary syndrome acute 2024 9:10pm Diabetes acute October 05 9:10pm Chest pain resolved October 05 9:10pm Hypertension deleted October 05 025 9:10pm Fecal occult blood test positive acute October 21, 2024 8:18am [facility] Work Phone: 1(220) 699-640407-12-2025 Evaluation note* Diagnosis Onset Date Resolution Status Admit Date Acute coronary syndrome acute 2024 9:10pm Diabetes acute October 05 9:10pm Chest pain resolved October 05 9:10pm Hypertension deleted October 05 025 9:10pm Fecal occult blood test positive acute October 21, 2024 8:18am Bradycardia acute November 08, 2024 12:57pm Near syncope acute November 08, 2024 12:57pm [facility] Work Phone: 1(326) 514-792207-12-2025 Evaluation note* Diagnosis Onset Date Resolution Status Admit Date Acute coronary syndrome acute J maile 2024 9:10pm Diabetes chronic October 05 9:10pm Chest pain resolved October 05 9:10pm Hypertension deleted October 05, 025 9:10pm Fecal occult blood test positive acute October 21, 2024 8:18am Bradycardia acute November 08, 2024 12:57pm Near syncope acute November 08, 2024 12:57pm Anemia chronic November 10:37am CKD (chronic kidney disease) stage 3, GFR 30-59 ml/min chronic 2024 10:37am Diabetes chronic November 10:37am High cholesterol chronic Novembe r 2024 10:37am Hypertension chronic December 122024 10:37am Hypothyroidism chronic December 12, 2024 10:37am Insulin pump in place chronic Sep tember 2024 10:37am Insulin pump titration chronic Se ptember 2024 10:37am Morbid obesity with BMI of 45.0-49.9, adult chronic December 12, 2024 10:37am [facility] Work Phone: 1([phone]) 485-925507-12-2025 Discharge summary [facility] Medical Records Department [address] [place] [address] Emergency Department Summary 10/05/24 MR#: [id number] Acct: [id number] Name: ARLEN NGUYEN Rep #:[id number] : 1970 54 From: Anton Thacker DO PCP: Dr. Phu Espinoza MD Status:ADM I NO Location: [place] [address] HPI History of Present Illness Chief Complaint: [...] surgery although she recently had travel to [place] by car but it was less than 4 hours. No history of PE or DVT. She has no heart history. She is a diabetic and has history of hypertension and high cholesterol. Patient also with historyof anxiety and history of GERD. Currently rates her pain a 5 out of 10. [facility] Medical History Post-menopausal Wears contact lenses [...] % (Auto) 51.7 Lymph % (Auto) 36.5 [place] % (Auto) 9.5 Eos % (Auto) 1.6 [...] IMPRESSION: No acute cardiopulmonary abnormality. Reading Location: [facility] 1 view chest x-ray obtained interpreted by [...] mg tablet 40 mg PO QDAY Humalog KwDomitila Insulin 200 unit/mL (3 mL) insulin pen [...] MD [Primary Care Provider] - Print Language: Greek Disposition Disposition: Acute Care Hospital [facility] What to do if you have Problems For any increased pain, shortness of breath, bleeding, nausea or vomiting, chestpain, or any unexpected problems, contact your Primary Care Provider. Call [facility] ([phone]) or report tothe closest Emergency Room. Call 911 if necessary. 10/05/242150 Cosigner Signature (if applicable): CC: Dr. Phu Espinoza MD ~ Signed [facility]07-12-2025 Radiology Diagnostic study note [facility] Imaging Services [address] [place] [address] Chest 1 View (Portable) MR#: [id number] Acct: [id number] Name: ARLEN NGUYEN Rep #: [id number] : 1970 F 54 From: Kylah Caraballo MD PCP: Dr. Phu Espinoza MD Status: REG E R Study:Chest 1 View (Portable) Date of Exam: 10/05/24 Exam# [id number] Ordering Dr: Arabella Thacker DO PROCEDURE: CHEST [...] IMPRESSION: No acute cardiopulmonary abnormality. Reading Location: [id number] CC: Dr. Anton Thacker DO; Dr. 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 [facility]07-12-2025 Evaluation note* Diagnosis Onset Date Resolution Status Admit Date Acute coronary syndrome acute J maile2024 9:10pm Chest pain acute October 05 9:10pm Diabetes acute October 05 9:10pm Hypertension chronic October 05, 025 9:10pm [facility] Work Phone: 1(663) 616-200112-27-2024 Evaluation note* Diagnosis Onset Date Resolution Status Admit Date Incisional hernia acute Decembe r 2023 1:20pm CKD (chronic kidney disease) stage 3, GFR 30-59 ml/min chronic ua 2024 11:39am Diabetes chronic May 02, 2024 11:39am High cholesterol chronic May 02, 2024 11:39am Hypertension chronic April 11:39am Hypothyroidism chronic May 022024 11:39am Microalbuminuria chronic May 02, 2024 11:39am Obesity chronic May 02, 2024 11:39am [facility] Work Phone: 1([phone]) 191-450512-18-2023 History and physical note Author Jodi Agee [facility] March 13, 2023 7:14am Note Date/Time March 13, 2023 7:12am [facility] Medical Records Department [address] [place] [address] History & Physical Exam 03/13/23 0710 MR#: [id number] Acct: [id number] Name: ARLEN NGUYEN Rep #:[id number] : 1970 52 From: Jodi Agee MD PCP: Dr. Phu Espinoza MD Status:REG S DC Location: [place] [address] History and Physical Date of Admission: 03/13/23 Date of Service: 02/15/23 MR#: [id number] Acct: [id number] Name: ARLEN NGUYEN Rep #: [id number] : 1970 Provider: Dr. Jodi Agee MD Age/Sex: 52/F Location: [facility] Status: Signed Intake Vital Signs 11/17/2309:41 02/15/2314:17 Height 5 ft 7.5 in 5 ft 7 in Weight: 277 lb BMI 43.4 BP 114/75 Blood Pressure Location Rt brachial Position Sitting Respiration 18 Intake Visit Reasons: Anemia Chief Complaint: anemia Manager [employer] Required: No Is patient in pain?: No [...] was 10.8 previously has been running between and mid . Patient states she did have EGD a [...] not take any other PPI or other byrz-ihb-nchyfiw medications. Patient is adopted does not know [...] Dulcolax split prep. Jodi Agee M.D. Pager: [phone] [facility] [address] [place] [address], [facility], [address] [place] [address] Office: [phone] Coding Level of Care Code Off vis,new,level [...] MD; Dr. Jodi Agee MD ~* Signed [facility] Work Phone: 1(415) 630-429112-18-2023 Procedure [facility] 03-13-2023 Procedure [facility]12-18-2023 Procedure note [facility]12-18-2023 Procedure [facility] Discharge summary Author Octavio Archuleta [facility] Note Date/Time October 07, 2024 4:16 pm [facility] Medical Records Department [address] [place] [address] Discharge Summary 10/07/24 1608 MR#: [id number] Acct: [id number] Name: ARLEN NGUYEN Rep #:[id number] : 1970 54 From: Octavio Archuleta MD PCP: Dr. Phu Espinoza MD Status:ADM I NO Location: [place] [address]- Providers Date of Admission: 10/05/24 Date of Discharge: 10/07/24 Primary Care Physician: Dr. Phu Espinoza MD Reason For Visit: CHEST PAIN Diagnosis Discharge Diagnosis (1) Chest pain: Status: Acute Code(s): R07.9 - Chest pain, unspecified Plan Patient is a 54-year-old female who presented with chest pain 1. Chest pain ? Patient was placed on a monitored bed [place] was ruled out with serial cardiac enzymes [...] Neut % (Auto) 48.3, Lymph % (Auto) 37.9,[place] % (Auto) 10.8 H, Eos % (Auto) [...] Espinoza Chi Performed By: Maine Akbar RDCS D/C Instructions Discharge Activity: Return to [...] Self Care Charges/Coding Visit Charges Inpatient E&M: 08856 Disch Hosp >30min 10/07/24 1617 <Electronically signed by Octavio Archuleta MD> Cosigner Signature (if applicable): CC: Dr. Octavio Archuleta MD; Dr. Phu Espinoza MD~ Signed [facility] Work Phone: evaluation note* Diagnosis Onset Date Resolution Status Diabetes chronic High cholesterol chronic Hypertension chronic Hypothyroidism chronic Morbid obesity with BMI of 45.0-49.9, adult chronic Diabetes chronic Distal paresthesia chronic High cholesterol chronic Hypertension chronic Hypothyroidism chronic Vitamin D deficiency [facility] Work Phone: Evaluation note* Diagnosis Onset Date Resolution Status Diabetes chronic High cholesterol chronic Hypertension chronic Hypothyroidism chronic Morbid obesity with BMI of 45.0-49.9, adult chronic Diabetes chronic Distal paresthesia chronic High cholesterol chronic Hypertension chronic Hypothyroidism chronic Vitamin D deficiency chronic Diabetes chronic Hypertension chronic Hypothyroidism chronic Morbid obesity with BMI of 45.0-49.9, [facility] Work Phone: Evaluation note* Diagnosis Onset Date Resolution Status Diabetes chronic Distal paresthesia chronic High cholesterol chronic Hypertension chronic Hypothyroidism chronic Vitamin D deficiency chronic Diabetes chronic Hypertension chronic Hypothyroidism chronic Morbid obesity with BMI of 45.0-49.9, [facility] Work Phone: Evaluation note* Diagnosis Onset Date Resolution Status Diabetes chronic Hypertension chronic Hypothyroidism chronic Morbid obesity with BMI of 45.0-49.9, [facility] Work Phone: Evaluation note* Diagnosis Onset Date Resolution Status Diabetes chronic Hypertension chronic Obesity (BMI 30-39.9) chroni c Abdominal pain acute Abdominal pain, RLQ acute Fever acute History of diabetes mellitus acute Nausea acute SIRS (systemic inflammatory response syndrome) acute Vomiting acute History of chronic kidney disease chronic [facility] Work Phone: Evaluation note* Diagnosis Onset Date Resolution Status Diabetes chronic Hypertension chronic Obesity (BMI 30-39.9) chroni c Abdominal pain acute Abdominal pain, RLQ acute History of diabetes mellitus acute History of chronic kidney disease chronic Fever resolved Nausea resolved Vomiting resolved [facility] Work Phone: Evaluation note* Diagnosis Onset Date Resolution Status Acute pharyngitis, unspecified acute Shingles acute Diabetes chronic [facility] (BMI 30-39.9) [facility] Work Phone: Evaluation note* Diagnosis Onset Date Resolution Status CKD (chronic kidney disease) stage 3, GFR 30-59 ml/min chronic Diabetes chronic Obesity [facility] Work Phone: Evaluation note* Diagnosis Onset Date Resolution Status Diabetes chronic Obesity [facility] Work Phone: Evaluation note* Diagnosis Onset Date Resolution Status Diabetes chronic Obesity chronic Epigastric pain acute Anemia noneactive Fatigue acute Depression chronic Diabetes chronic Hypertension chronic Hypothyroidism chronic Obesity chronic Vitamin D deficiency chronic [facility] Work Phone: Evaluation note* Diagnosis Onset Date Resolution Status Epigastric pain acute Anemia noneactive Fatigue acute Depression chronic Diabetes chronic Hypertension chronic Hypothyroidism chronic Obesity chronic Vitamin D deficiency chronic [facility] Work Phone: Evaluation note* Diagnosis Onset Date Resolution Status Fatigue acute Depression chronic Diabetes chronic Hypertension chronic Hypothyroidism chronic Obesity chronic Vitamin D deficiency [facility] Work Phone: Hospital Discharge instructions Additional Instructions Your CAT scan normal appendix today. No other acute findings. With your fever all your labs are normal including COVID and influenza. Continue clear liquid diet next 12 to 24 hours. Tylenol as needed. If pain intensifies or worsens in your right lower quadrant abdomen, return for reevaluation.[facility] Work Phone: Progress note Author Massiel Gibbons [facility] Note Date/Time December 12, 2024 11:44am [facility] [address] [place], [place] [address] OFFICE VISIT Date of Service: 12/12/24 MR#: [id number] Acct: [id number] Name: ARLEN NGUYEN Rep #: [id number] : 1970 Provider: ADELITA Gibbons Age/Sex: 54/F Location: [facility] Status: Signed Intake Vital Signs 11/08/24 13:04 12/12/24 10:37 Height 5 ft 7 in 5 ft 7 in Weight: 292 lb 4 oz BMI 45.8 BP 132/84 H Blood Pressure Location Rt brachial Position Sitting Pulse 79 Pulse Source Monitor Pulse Oximetry (%) 96 Oxygen Delivery Method room air Intake Visit Reasons: 7 M FU Chief Complaint: f/u diabetes Is patient in pain?: No Allergies doxepin Allergy (Intermediate, Verified 12/12/24 10:43) PT UNSURE OF REACTION nut - unspecified Allergy (Verified 12/12/24 10:43) Anaphylaxis peanut Allergy (Verified 12/12/24 10:43) Anaphylaxis shellfish derived Allergy (Verified 12/12/24 10:43) Anaphylaxis codeine Adverse Reaction (Verified 12/12/24 10:43) Rash prednisone Adverse Reaction (Verified 12/12/24 10:43) Other sertraline HCl (From Zoloft) Adverse Reaction (Verified 12/12/24 10:43) Other Medications ?Medication ?Instructions ?Recorded ?Confirmed ?Type albuterol sulfate 90 mcg/actuation 1 puff inhalation Q 4H PRN PRN 12/01/13 12/12/24 History aerosol inhaler (Ventolin HFA) Shortness Of Breath zolpidem 10 mg tablet (Ambien) 5 mg PO QHS PRN sleep 0 12/01/13 12/12/24 History epinephrine 0.3 mg/0.3 mL 0.3 mg (0.3 mL) IJ X1 PRN 12/12/24 Rx injection, auto-injector Anaphylaxis ##1 atorvastatin 40 mg tablet 40 mg PO DAILY 02/03/2111/25 History cetirizine 10 mg tablet 10 mg PO DAILY 02/03/2111/25 History valsartan 320 mg tablet 320 mg PO QHS 03/07/2312/12 History paroxetine HCl 40 mg tablet 40 mg PO QDAY 11/01/23 History finerenone 10 mg tablet (Kerendia) 10 mg PO DAILY 09/2412/12/24 History pantoprazole 40 mg tablet,delayed 40 mg PO DAILY 10/0512/12/24 History release polysaccharide iron complex 150 mg 150 mg PO DAILY 03/2012/12/24 History iron capsule (Ferrex) sulfamethoxazole 800 1 tab PO QHS 10/05/24 History mg-trimethoprim 160 mg tablet levothyroxine 112 mcg tablet 112 mcg PO QDAY 10/21/24 12/12/24 History levothyroxine 50 mcg tablet 50 mcg PO QDAY 10/24/24 History pioglitazone 30 mg tablet (Actos) 30 mg PO QDAY 12/12/24 History insulin lispro 200 unit/mL (3 mL) 170 unit (0.85 mL) s ubcut ONCE 11/21/24 12/12/24 Rx subcutaneous pen (Humalog KwikPen #76.5 mL U-200 Insulin) insulin lispro 200 unit/mL (3 mL) 170 unit (0.85 mL) s ubcut ONCE 11/21/24 12/12/24 Rx subcutaneous pen (Humalog KwikPen #76.5 mL U-200 Insulin) metformin 1,000 mg tablet 1,000 mg PO BID #1 TAB 11/2112/12/24 Rx dapagliflozin propanediol 10 mg 10 mg PO QDAY #90 tabs 11/26/24 12/12/24 Rx tablet (Farxiga) [facility] Medical History Near syncope Bradycardia Diabetes Incisional hernia Fatigue CKD (chronic kidney disease) stage 3, GFR 30-59 ml/min Vitamin D deficiency Asthma Acute coronary syndrome Anxiety Fatty liver GERD (gastroesophageal reflux disease) Shortness of breath on exertion MRSA (methicillin resistant Staphylococcus aureus) Insulin pump in place SIRS (systemic inflammatory response syndrome) Hypothyroidism Neuropathy Hives Hepatitis A Carpal tunnel syndrome Arthritis Depression High cholesterol Hypertension Migraines Morbid obesity with BMI of 45.0-49.9, adult Surgical History Tonsillectomy planned delivery delivered S/P section History of endometrial ablation History of removal of ovarian cyst History of cholecystectomy Family History Daughter Bleeding disorder Brother Diabetes Hypertension CAD (coronary artery disease) Sister Diabetes Other Alcohol abuse Anxiety Arthritis Asthma Bowel disease Depression Severe allergy Social History household members: none Smoking Status: Never smoker substance use type: does not use what type of physical activity do you participate in: walking HPI HPI Chief Complaint: f/u diabetes Details: ARLEN NGUYEN, is a 54 F who presents to the office today for evaluation and management of diabetes. A1C today is 6.3%, improved from 05/02/24 at 6.7%. Weight relatively stable. Currently using REPPg with [employer] CGM. Insulin pump downloaded and reviewed- Additionally she is taking metformin 1 gm BID with food and Farxiga 10 mg once daily. BP controlled. Currently taking valsartan 320 mg once daily. She has CKD and taking Kerendia. She is hypothyroid and currently taking levothyroxine 112 mcg once daily. She takes a daily statin. Labs are up to date. She complains of significant and worsening fatigue and shortness of breath. She was noted to have positive hemoccult, she is awaiting scheduling colonoscopy as she was told by surgery she needs cardiology's approval. She has a tilt table test scheduled with them at the end of the month. She denies noting any current blood in stool or dark tarry stools. Reports MAST and fever 2 nights ago, denies any sore throat, chills, dysuria, cough. ROS Const Constitutional: Positive for fatigue; No weight change ENT ENT: No dizziness/vertigo Cardio Cardiology: Positive for shortness of breath; No chest pain at rest, chest pain with exertion or palpitations Skin Skin: No wounds Endo Endocrine: Positive for fatigue; No weight change Exam Const General: cooperative, healthy appearing, comfortable and no acute distress Nutritional Appearance: obese Orientation: alert, awake and oriented x3 HENMT Head: normal to inspection Ears: hearing grossly normal bilaterally Nose: external nose normal Face and sinus: normal facial exam Mouth: lip abnormal lower other (pallor) Eyes General: appearance normal, both eyes and all related structures Alignment and Position: alignment normal Conjunctivae: conjunctival abnormality bilaterally pallor Neck Neck: normal visual inspection Resp Effort & Inspection: normal respiratory effort, able to speak in complete sentences, symmetric chest movement, normal respiratory pattern, no audible wheezes and no cough Auscultation: Bilateral: Clear to Auscultation GI Inspection: obesity Musc Cervical Spine: normal cervical lordosis Thoracic/Lumbar Spine: thoracic and lumbar spine normal to inspection Skin General: pallor Lesions: no lesions Rashes: no rashes Trauma: no lacerations or abrasions Wounds: no wounds Neuro General: patient alert, patient awake and patient oriented x3 Cognition: normal cognition Speech: speech normal Gait: normal gait Extrem General: normal to inspection and no pedal edema Psych Appearance: grossly normal Mental Status: mental status grossly normal Mood: congruent mood Affect: normal affect Speech and Movement: speech and movement normal Attitude: cooperative Thought Process: normal Thought Content: normal Judgment: judgment good Results POC A1C POC A1C 6.3 % Last Edit by Liban Hodge RN on 12/12/24 10:49 Assessment and Plan Assessment and Plan (1) Diabetes: Status: Chronic Qualifiers: Diabetes mellitus type: type 2 Diabetes mellitus shelter insulin use:with shelter use Diabetes mellitus complication status: with hyperglycemia Qualified Code(s): E11.65 - Type 2 diabetes mellitus with hyperglycemia; 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 Longitudinal care provided. G2211. I reviewed with the patient the risk of developing and worsening of diabetes complications including retinopathy, neuropathy, nephropathy, heart attack, stroke, amputation, and sudden . Diabetes education provided. A1C at goal: <7.5%. CGM tracings reviewed in detail with patient. Emphasized importance of accurately counting and reporting carbohydrate. Notify office of persistently high/low blood sugars. CGM: she is checking blood sugar 4x/day, she is on a continuous infusion insulinpump, she uses blood sugar readings to titrate insulin dose, she is at risk of hypoglycemia. Reviewed most recent labs. The patient was counseled regarding the importance of foot care including daily visual and tactile inspection. The patient was instructed not to go barefoot andto always wear socks with their shoes. Follow up in 6 months. (2) Hypertension: Status: Chronic Qualifiers: Hypertension type: unspecified Qualified Code(s): I10 - Essential (primary) hypertension Plan: Chronic- controlled. Continue valsartan 320 mg once daily. SGLT2 likely aiding in control. Avoid dietary sodium. Will continue to monitor in routine labs. (3) Insulin pump in place: Status: Chronic Plan: Plan same as above. (4) Insulin pump titration: Status: Chronic Plan: No changes made to insulin pump settings at today's appt. (5) CKD (chronic kidney disease) stage 3, GFR 30-59 ml/min: Status: Chronic Qualifiers: Chronic kidney disease stage 3 subtype: stage 3a (GFR 45-59) Qualified Code(s): N18.31 - Chronic kidney disease, stage 3a Plan: Chronic- stable. Maintain glycemic control. Maintain BP control. Assure adequate hydration. Continue SGLT2. Continue Kerendia. Continue ARB. Avoid NSAIDs. Will continue to monitor in routine labs. (6) Hypothyroidism: Status: Chronic Qualifiers: Hypothyroidism type: unspecified Qualified Code(s): E03.9 - Hypothyroidism, unspecified Plan: Chronic- controlled. Continue levothyroxine 112 mcg once daily. Take levothyroxine on an empty stomach with water at least four hours after eating. Then wait 30-60 minutes before consuming any other food or beverage, especially coffee. Separate levothyroxine from vitamins by at least 4 hours. Stop taking any biotin supplement 4 days prior to having labs drawn. Will contnue to thuan in routine labs. (7) High cholesterol: Status: Chronic Plan: Chronic- controlled. Continue atorvastatin 40 mg once daily. Increase vegetable intake. Choose lean cuts of meat. Avoid processed carbohydrates. Will continue to monitor in routine labs. (8) Morbid obesity with BMI of 45.0-49.9, adult: Status: Chronic Plan: Chronic- stable. Encouraged a diet that contains high quality carbohydrates rich in fiber. (9) Anemia: Status: Chronic Qualifiers: Anemia type: unspecified type Qualified Code(s): D64.9 - Anemia, unspecified Plan: Chronic- stability unknown. -CBCD, vitamin B12, retic count, folate Assure immediate scheduling of colonoscopy upon approval from cardiology. If colonoscopy negative, consider hematology referral. Discussed red flag symptoms requiring urgent medical attention. I have spent [35] minutes today reviewing labs, records and history. Time includes coordinating care, interpretation of tests, discussion with patient's other health care providers via telephone. This also includes time I spent with the patient for exam, treatment plan and education as well as documenting clinical information. Orders: Orders POC A1C 12/12/24 E11.9 - Type 2 diabetes mellitus without complications CBC W/Diff, Automated 12/12/24 R53.83 - Other fatigue Vitamin B12 12/12/24 R53.83 - Other fatigue FOLATES,SERUM (FOLIC ACID) 12/12/24 D64.9 - Anemia, unspecified, E11.9 - Type 2 diabetes mellitus without complications, E66.01 - Morbid (severe) obesity due to excess calories, N18.31 - Chronic kidney disease, stage 3a, Z68.42 - Body mass index [BMI] 45.0-49.9, adult Plan Details Follow Up: 6 Months Coding Level of Care Code Off vis,est,level 4 Extra Time Spent Extra Time Spent Extra Time Spent: G2211 Diagnoses Type 2 diabetes mellitus with hyperglycemia, with long-term current use of insulin E11.65; Z79.4 Diabetes mellitus type: type 2 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 Diabetes mellitus complication status: with hyperglycemia Hypertension, unspecified type I10 Hypertension type: unspecified Insulin pump in place Z96.41 Insulin pump titration Z46.81 Stage 3a chronic kidney disease N18.31 Chronic kidney disease stage 3 subtype: stage 3a (GFR 45-59) Hypothyroidism, unspecified type E03.9 Hypothyroidism type: unspecified High cholesterol E78.00 Morbid obesity with BMI of 45.0-49.9, adult E66.01; Z68.42 Anemia, unspecified type D64.9 Anemia type: unspecified type Additional Codes Extra Time Spent - Extra Time Spent: G2211 (G2211) 12/13/24 1005 <Electronically signed by Massiel UREÑA> Date _ Massiel UREÑA Cosigner Signature: Date (if applicable) CC: Dr. Phu Espinoza MD ~ [facility] Work Phone: Reason for referral (narrative)No reason for referral information [facility] Work Phone: Chief Complaint and Reason for Visit Chief Complaint CUT OFF TENDER GLASS-DM-NPP MAILED 1 M FU Reason for Visit Diabetes High cholesterol Hypertension Hypothyroidism Morbid obesity with BMI of 45.0-49.9, adult Diabetes Distal paresthesia High cholesterol Hypertension Hypothyroidism Vitamin D deficiency Chief Complaint CUT OFF TENDER GLASS-DM-NPP MAILED 1 M FU KIDNEY STONES Reason for Visit Diabetes High cholesterol Hypertension Hypothyroidism Morbid obesity with BMI of 45.0-49.9, adult Diabetes Distal paresthesia High cholesterol Hypertension Hypothyroidism Vitamin D deficiency Chief Complaint CUT OFF TENDER GLASS-DM-NPP MAILED 1 M FU KIDNEY STONES 2 [...] IN STOOL October 21, 2024 8: 18am Chief Complaint Admit Date CHEST PAIN October 05, 2024 9:10 pm CHEST PAIN October 06, 2024 7:07 am CHEST PAIN October 07, 2024 10:0 4am CHEST PAIN October 07, 2024 2:20 pm ANEMIA/BLOOD IN STOOL October 21, 2024 8: 18am WEAKNESS OF BOTH ARMS October 30, 2024 6 :50am WEAKNESS OF BOTH ARMS October 30, 2024 9 :35am Reason for Visit Admit Date Acute coronary syndrome October 05, 2024 9:10pm Diabetes October 05, 2024 9:10 pm Chest pain October 05, 2024 9:10 pm Hypertension October 05, 2024 9:10 pm Fecal occult blood test positive October 212024 8:18am Chief Complaint Admit Date CHEST PAIN October 05, 2024 9:10 pm CHEST PAIN October 06, 2024 7:07 am CHEST PAIN October 07, 2024 10:0 4am CHEST PAIN October 07, 2024 2:20 pm ANEMIA/BLOOD IN STOOL October 21, 2024 8: 18am WEAKNESS OF BOTH ARMS October 30, 2024 6 :50am WEAKNESS OF BOTH ARMS October 30, 2024 9 :35am BRADYCARDIA (ALEXIS) November 08, 2024 12 :57pm Chief Complaint Admit Date CHEST PAIN October 05, 2024 9:10 pm CHEST PAIN October 06, 2024 7:07 am CHEST PAIN October 07, 2024 10:0 4am CHEST PAIN October 07, 2024 2:20 pm ANEMIA/BLOOD IN STOOL October 21, 2024 8: 18am WEAKNESS OF BOTH ARMS October 30, 2024 6 :50am WEAKNESS OF BOTH ARMS October 30, 2024 9 :35am BRADYCARDIA (ALEXIS) November 08, 2024 12 :57pm WEAKNESS IN BOTH ARMS November 18, 2024 3:58pm Reason for Visit Admit Date Acute coronary syndrome Nedra 12th, 2025 9:10pm Diabetes October 05, 2024 9:10 pm Chest pain October 05, 2024 9:10 pm Hypertension October 05, 2024 9:10 pm Fecal occult blood test positive October 212024 8:18am Bradycardia November 08, 2024 12 :57pm Near syncope November 08, 2024 12 :57pm Chief Complaint Admit Date CHEST PAIN October 05, 2024 9:10 pm CHEST PAIN October 06, 2024 7:07 am CHEST PAIN October 07, 2024 10:0 4am CHEST PAIN October 07, 2024 2:20 pm ANEMIA/BLOOD IN STOOL October 21, 2024 8: 18am WEAKNESS OF BOTH ARMS October 30, 2024 6 :50am WEAKNESS OF BOTH ARMS October 30, 2024 9 :35am BRADYCARDIA (ALEXIS) November 08, 2024 12 :57pm WEAKNESS IN BOTH ARMS November 18, 2024 3:58pm BRADYCARDIA November 28, 2024 9:24am ARRYHTHMIA December 10, 2024 12:15pm ARRYHTHMIA December 11, 2024 5:51pm 7 M FU December 12, 2024 10:37am Reason for Visit Admit Date Acute coronary syndrome October 05, 2024 9:10pm Diabetes October 05, 2024 9:10 pm Chest pain October 05, 2024 9:10 pm Hypertension October 05, 2024 9:10 pm Fecal occult blood test positive October 212024 8:18am Bradycardia November 08, 2024 12 :57pm Near syncope November 08, 2024 12 :57pm Anemia December 12, 2024 10:37am CKD (chronic kidney disease) stage 3, GF R 30-59 ml/min December 12, 2024 10:37am Diabetes December 12, 2024 10:37am High cholesterol December 12, 2024 10:37am Hypertension December 12, 2024 10:37am Hypothyroidism December 12, 2024 10:37am Insulin pump in place December 12 10:37am Insulin pump titration December 12 10:37am Morbid obesity with BMI of 45.0-49.9, ad ult December 12, 2024 10:37am Chief Complaint Admit Date CHEST PAIN October 05, 2024 9:10 pm CHEST PAIN October 06, 2024 7:07 am CHEST PAIN October 07, 2024 10:0 4am CHEST PAIN October 07, 2024 2:20 pm ANEMIA/BLOOD IN STOOL October 21, 2024 8: 18am WEAKNESS OF BOTH ARMS October 30, 2024 6 :50am WEAKNESS OF BOTH ARMS October 30, 2024 9 :35am BRADYCARDIA (ALEXIS) November 08, 2024 12 :57pm WEAKNESS IN BOTH ARMS November 18, 2024 3:58pm BRADYCARDIA November 28, 2024 9:24am KWAKU November 28, 2024 9:51am ARRYHTHMIA December 10, 2024 12:15pm ARRYHTHMIA December 11, 2024 5:51pm 7 M FU December 12, 2024 10:37am INT LABS December 23, 2024 9:59am Chief Complaint Admit Date CHEST PAIN October 05, 2024 9:10 pm CHEST PAIN October 06, 2024 7:07 am CHEST PAIN October 07, 2024 10:0 4am CHEST PAIN October 07, 2024 2:20 pm ANEMIA/BLOOD IN STOOL October 21, 2024 8: 18am WEAKNESS OF BOTH ARMS October 30, 2024 6 :50am WEAKNESS OF BOTH ARMS October 30, 2024 9 :35am BRADYCARDIA (ALEXIS) November 08, 2024 12 :57pm WEAKNESS IN BOTH ARMS November 18, 2024 3:58pm BRADYCARDIA November 28, 2024 9:24am KWAKU November 28, 2024 9:51am ARRYHTHMIA December 10, 2024 12:15pm ARRYHTHMIA December 11, 2024 5:51pm 7 M FU December 12, 2024 10:37am INT LABS December 23, 2024 9:59am SYNCOPE December 24, 2024 8:59am Syncope December 24, 2024 7:23pm Family History No Family History Records Found [...] September 11 11:46am Living Will No February 03, 021 7:01pm Power of Tree Farmer Yes February 03, 2021 7:01pm Advance Directive Response Recorded Date/ Time Advance Directives No September 11 10:46am Living Will No February 03, 022 7:20pm Power of Tree Farmer No February 03, 2022 7:20pm Advance Directive Response Recorded Date/ Time Name of Medical Power of Tree Farmer tammycollin nguyen February 03, 2022 11:15pm Advance Directives No September 11 10:46am Living Will No February 03 022 11:15pm Power of Tree Farmer Yes February 03, 2022 11:15pm Advance Directive Response Recorded Date/ Time Advance Directives No September 11 11:46am Living Will No February 04 022 12:15am Power of Tree Farmer Yes February 04, 2022 12:15am Advance Directive Response Recorded Date/ Time Advance Directives No September 11 10:46am Living Will No February 03 11:15pm Power of Tree Farmer Yes February 03, 2022 11:15pm Advance Directive Response Recorded Date/ Time Name of Medical Power of Tree Farmer [place] March 07, 2023 1:20pm Advance Directives No September 11 10:46am Living Will Yes March 07, 023 1:20pm Power of Tree Farmer Yes March 07, 2023 1:20pm Advance Directive Response Recorded Date/ Time Name of Medical Power of Tree Farmer [place] March 07, 2023 2:20pm Advance Directives No September 11 11:46am Living Will Yes March 07, 2 023 2:20pm Power of Tree Farmer Yes March 07, 2023 2:20pm Advance Directive Response Recorded Date/ Time Advance Directives No September 11 11:46am Advance Directive Response Recorded Date/ Time Do you have a Healthcare Power of Tree Farmer? Yes October 05, 2024 7:29pm Advance Directives No September 11 11:46am Advance Directive Response Recorded Date/ Time Do you have a Healthcare Pow er of Tree Farmer? Yes October 05, 2024 9:47pm Name of Medical Power of Tree Farmer Babita Mckinley October 05, 2024 9:47pm Advance Directives No September 11 11:46am Summary Purpose Additional Source Comments Source Comments (unrecognize d section and content) In the event this informatio n is protected by the Federal Confidentiality of Alcohol and Drug Abuse Patient Records regulations: The Federal rules restrict any use of the information to criminally investigate or prosecute any alcohol or drug abuse patient.[facility] Goals (unrecognized section and content) Goals may [...] Primary Care Provider, Referring Provider Active Evin SIMMONS, PA Attending Provider Active Team Status: Inactive Member Role Status Dates Dr. Phu Espinoza MD Primary Care Provider, Referring Provider Active Roger SIMMONS, PA Attending Provider Active Team Status: Inactive [...] October 16, 2024 End: October 16, 2024 Team Status: Inactive Member [...] Start: October 06, 2024 Dr. Anton Thacker , DO Emergency Provider Active S tart: October 06, 2024 Dr. Junior Dunn , DO Admit Provider Active Start: October 06, [...] 2024 End: October 10, 2024 Team Status: Inactive Member Role/Relationship Status Dates Dr. Phu Espinoza MD Primary Care Provider Active Start: October 11, 2024 End: October 11, 2024 Dr. Phu Espinoza MD Attending Provider Active Start: October 11, 2024 End: October 11, 2024 Dr. Phu Espinoza MD Referring Provider Active Start: October 11, 2024 End: October 11, 2024 Team Status: Inactive Member Role/Relationship Status Dates Dr. Phu Espinoza MD Primary Care Provider Active Start: October 16, 2024 End: October 16, 2024 Dr. Phu Espinoza MD Attending Provider Active Start: October 16, 2024 End: October 16, 2024 Team Status: Inactive Member [...] MD Primary Care Provider Active Start: October 30, 2024 End: October 30, 2024 Dr. Phu Espinoza MD Attending Provider Active Start: October 30, 2024 End: October 30, 2024 Dr. Phu Espinoza MD Referring Provider Active Start: October 30, 2024 End: October 30, 2024 Team Status: Active Member Role/Relationship Status Dates Dr. Phu Espinoza MD Primary Care Provider Active Start: October 30, 2024 Dr. Phu Espinoza MD Referring Provider Active Start: October 30, 2024 Dr. Phu Espinoza MD Other Provider Active Star t: October 30, 2024 Dr. Jona Vieira MD Attending Provider Active S tart: October 30, 2024 Team Status: Inactive Member Role/Relationship Status Dates Dr. Phu Espinoza MD Primary Care Provider Active Start: November 08, 2024 End: November 08, 2024 Dr. Phu Espinoza MD Referring Provider Active Start: November 08, 2024 End: November 08, 2024 Dr. Josh Gibbs MD Attending Provider Active S tart: November 08, 2024 End: November 08, 2024 Team Status: Inactive Member Role/Relationship Status Dates Dr. Phu Espinoza MD Primary Care Provider Active Start: November 18, 2024 End: November 18, 2024 Dr. Phu Espinoza MD Attending Provider Active Start: November 18, 2024 End: November 18, 2024 Dr. Phu Espinoza MD Referring Provider Active Start: November 18, 2024 End: November 18, 2024 Team Status: Active Member Role/Relationship Status Dates Dr. Phu Espinoza MD Primary care physician Active Team Status: Inactive Member Role/Relationship Status Dates Dr. Phu Espinoza MD Primary care physician Active Start: October 05, 2024 End: October 07, 2024 Dr. Anton Thacker , Emergency Departmen t Physician Active Start: October 05, 2024 End: October 07, 2024 Dr. Junior Dunn DO Admitting physician Active Start: October 05 End: October 07, 2024 Dr. Junior Dunn DO Nurse Practitioner Active Start: October 05 End: October 07, 2024 Dr. Octavio Archuleta MD Attending physician Active Start: October 05, 2024 End: October 07, 2024 Dr. Megan Gomez MD Nurse Practitioner Active Start: October 05, 2024 End: October 07, 2024 Team Status: Active Member Role/Relationship Status Dates Dr. Phu Espinoza MD Primary care physician Active Start: October 06, 2024 Dr. Anton Thacker DO Emergency Departmen t Physician Active Start: October 06, 2024 Dr. Junior Dunn DO Admitting physician Active Start: October 06 Dr. Junior Dunn DO Nurse Practitioner Active Start: October 06 Dr. Megan Gomez MD Attending physician Active Start: October 06, 2024 Dr. Megan Gomez MD Nurse Practitioner Active Start: October 06, 2024 Team Status: Active Member Role/Relationship Status Dates Dr. Phu Espinoza MD Primary care physician Active Start: October 07, 2024 Dr. Anton Thacker DO Emergency Departmen t Physician Active Start: October 07, 2024 Dr. Junior Dunn DO Admitting physician Active Start: October 07 Dr. Junior Dunn DO Nurse Practitioner Active Start: October 07 Dr. Octavio Archuleta MD Attending physician Active Start: October 07, 2024 Dr. Octavio Archuleta MD Nurse Practitioner Active Start: October 07, 2024 Dr. Megan Gomez MD Nurse Practitioner Active Start: October 07, 2024 Team Status: Active Member Role/Relationship Status Dates Dr. Phu Espinoza MD Primary care physician Active Start: October 07, 2024 Dr. Ronda Schaefer MD Attending physician Active Start: October 07, 2024 Team Status: Active Member Role/Relationship Status Dates Dr. Phu Espinoza MD Primary care physician Active Start: October 07, 2024 Dr. Anton Thacker DO Emergency Departmen t Physician Active Start: October 07, 2024 Dr. Junior Dunn DO Admitting physician Active Start: October 07 Dr. Junior Dunn DO Nurse Practitioner Active Start: October 07 Dr. Octavio Archuleta MD Nurse Practitioner Active Start: October 07, 2024 Dr. Megan Gomez MD Nurse Practitioner Active Start: October 07, 2024 Dr. Josh Gibbs MD Attending physician Active Start: October 07, 2024 Team Status: Inactive Member Role/Relationship Status Dates Dr. Phu Espinoza MD Primary care physician Active Start: October 10, 2024 End: October 10, 2024 Dr. Phu Espinoza MD Attending physician Active Start: October 10, 2024 End: October 10, 2024 Team Status: Inactive Member Role/Relationship Status Dates Dr. Phu Espinoza MD Primary care physician Active Start: October 11, 2024 End: October 11, 2024 Dr. Phu Espinoza MD Attending physician Active Start: October 11, 2024 End: October 11, 2024 Dr. Phu Espinoza MD Referring Provider Active Start: October 11, 2024 End: October 11, 2024 Team Status: Inactive Member Role/Relationship Status Dates Dr. Phu Espinoza MD Primary care physician Active Start: October 16, 2024 End: October 16, 2024 Dr. Phu Espinoza MD Attending physician Active Start: October 16, 2024 End: October 16, 2024 Team Status: Inactive Member Role/Relationship Status Dates Dr. Phu Espinoza MD Primary care physician Active Start: October 21, 2024 End: October 21, 2024 Dr. Phu Espinoza MD Referring Provider Active Start: October 21, 2024 End: October 21, 2024 Dr. Jodi Agee MD Attending physician Active Start: October 21, 2024 End: October 21, 2024 Team Status: Inactive Member Role/Relationship Status Dates Dr. Phu Espinoza MD Primary care physician Active Start: October 30, 2024 End: October 30, 2024 Dr. Phu Espinoza MD Attending physician Active Start: October 30, 2024 End: October 30, 2024 Dr. Phu Espinoza MD Referring Provider Active Start: October 30, 2024 End: October 30, 2024 Team Status: Active Member Role/Relationship Status Dates Dr. Phu Espinoza MD Primary care physician Active Start: October 30, 2024 Dr. Phu Espinoza MD Referring Provider Active Start: October 30, 2024 Dr. Phu Espinoza MD Nurse Practitioner Active Start: October 30, 2024 Dr. Jona Vieira MD Attending physician Active Start: October 30, 2024 Team Status: Inactive Member Role/Relationship Status Dates Dr. Phu Espinoza MD Primary care physician Active Start: November 08, 2024 End: November 08, 2024 Dr. Phu Espinoza MD Referring Provider Active Start: November 08, 2024 End: November 08, 2024 Dr. Josh Gibbs MD Attending physician Active Start: November 08, 2024 End: November 08, 2024 Team Status: Inactive Member Role/Relationship Status Dates Dr. Phu Espinoza MD Primary care physician Active Start: November 18, 2024 End: November 18, 2024 Dr. Phu Espinoza MD Attending physician Active Start: November 18, 2024 End: November 18, 2024 Dr. Phu Espinoza MD Referring Provider Active Start: November 18, 2024 End: November 18, 2024 Team Status: Inactive Member Role/Relationship Status Dates Dr. Phu Espinoza MD Primary care physician Active Start: November 28, 2024 End: November 28, 2024 Dr. Josh Gibbs MD Attending physician Active Start: November 28, 2024 End: November 28, 2024 Dr. Josh Gibbs MD Referring Provider Active S tart: November 28, 2024 End: November 28, 2024 Team Status: Active Member Role/Relationship Status Dates Dr. Phu Espinoza MD Primary care physician Active Start: December 10, 2024 Dr. Josh Gibbs MD Attending physician Active Start: December 10, 2024 Dr. Josh Gibbs MD Referring Provider Active S tart: December 10, 2024 Team Status: Active Member Role/Relationship Status Dates Dr. Phu Espinoza MD Primary care physician Active Start: December 11, 2024 Dr. Josh Gibbs MD Attending physician Active Start: December 11, 2024 Dr. Josh Gibbs MD Referring Provider Active S tart: December 11, 2024 Dr. Josh Gibbs MD Nurse Practitioner Active S tart: December 11, 2024 Team Status: Inactive Member Role/Relationship Status Dates Dr. Phu Espinoza MD Primary care physician Active Start: December 12, 2024 End: December 12, 2024 Dr. Phu Espinoza MD Referring Provider Active Start: December 12, 2024 End: December 12, 2024 ADELITA Ryan Attending physician Active Start: December 12, 2024 End: December 12, 2024 Team Status: Active Member Role/Relationship Status Dates Dr. Phu Espinoza MD Primary care physician Active Start: December 12, 2024 ADELITA Ryan Attending physician Active Start: December 12, 2024 ADELITA Ryan Referring Provider Active Start: December 12, 2024 Team Status: Active Member Role/Relationship Status Dates Dr. Phu Espinoza MD Primary care physician Active Start: November 28, 2024 Dr. Josh Gibbs MD Attending physician Active Start: November 28, 2024 Dr. Josh Gibbs MD Referring Provider Active S tart: November 28, 2024 Team Status: Inactive Member Role/Relationship Status Dates Dr. Phu Espinoza MD Primary care physician Active Start: December 10, 2024 End: December 10, 2024 Dr. Josh Gibbs MD Attending physician Active Start: December 10, 2024 End: December 10, 2024 Dr. Josh Gibbs MD Referring Provider Active S tart: December 10, 2024 End: December 10, 2024 Team Status: Active Member Role/Relationship Status Dates Dr. Phu Espinoza MD Primary care physician Active Start: December 11, 2024 Dr. Josh Gibbs MD Attending physician Active Start: December 11, 2024 Dr. Josh Gibbs MD Referring Provider Active S tart: December 11, 2024 Dr. Josh Gibbs MD Nurse Practitioner Active S tart: December 11, 2024 Team Status: Inactive Member Role/Relationship Status Dates Dr. Phu Espinoza MD Primary care physician Active Start: December 12, 2024 End: December 12, 2024 Dr. Phu Espinoza MD Referring Provider Active Start: December 12, 2024 End: December 12, 2024 Massiel Gibbons NP-C Attending physician Active Start: December 12, 2024 End: December 12, 2024 Team Status: Active Member Role/Relationship Status Dates Dr. Phu Espinoza MD Primary care physician Active Start: December 12, 2024 Massiel Gibbons NP-C Attending physician Active Start: December 12, 2024 Massiel Gibbons NP-C Referring Provider Active Start: December 12, 2024 Team Status: Active Member Role/Relationship Status Dates Dr. Phu Espinoza MD Primary care physician Active Start: December 23, 2024 Massiel Gibbons NP-C Attending physician Active Start: December 23, 2024 Massiel Gibbons NP-C Referring Provider Active Start: December 23, 2024 Team Status: Inactive Member Role/Relationship Status Dates Dr. Phu Espinoza MD Primary care physician Active Start: December 12, 2024 End: December 12, 2024 Massiel Gibbons NP-C Attending physician Active Start: December 12, 2024 End: December 12, 2024 Massiel Gibbons NP-C Referring Provider Active Start: December 12, 2024 End: December 12, 2024 Team Status: Active Member Role/Relationship Status Dates Dr. Phu Espinoza MD Primary care physician Active Start: December 24, 2024 Dr. Josh Gibbs MD Attending physician Active Start: December 24, 2024 Dr. Josh Gibbs MD Referring Provider Active S tart: December 24, 2024 Team Status: Active Member Role/Relationship Status Dates Dr. Phu Espinoza MD Primary care physician Active Start: December 24, 2024 Dr. Josh Gibbs MD Attending physician Active Start: December 24, 2024 Dr. Josh Gibbs MD Referring Provider Active S tart: December 24, 2024 Dr. Josh Gibbs MD Nurse Practitioner Active S tart: December 24, 2024 Team Status: Inactive Member Role/Relationship Status Dates Dr. Phu Espinoza MD Primary care physician Active Start: December 23, 2024 End: December 23, 2024 Massiel Gibbons NP-C Attending physician Active Start: December 23, 2024 End: December 23, 2024 Massiel Gibbons NP-C Referring Provider Active Start: December 23, 2024 End: December 23, 2024 Team Status: Inactive Member Role/Relationship Status Dates Dr. Phu Espinoza MD Primary care physician Active Start: December 24, 2024 End: December 24, 2024 Dr. Josh Gibbs MD Attending physician Active Start: December 24, 2024 End: December 24, 2024 Dr. Josh Gibbs MD Referring Provider Active S tart: December 24, 2024 End: December 24, 2024 Team Status: Inactive Member Role/Relationship Status Dates Dr. Phu Espinoza MD Primary care physician Active Start: January 02, 2025 End: January 02, 2025 Dr. Phu Espinoza MD Attending physician Active Start: January 02, 2025 End: January 02, 2025 INFORMATION SOURCE (unrecogn ized section and content) DATE CREATED AUTHOR 02/07/2025 [facility] FOR RECORDS PERTAINING TO PATIENTS WHO [...] BE BASED ON THE PRIMARY CLINICAL RECORDS. [facility]. provides no warranty or guarantee of the accuracy or completeness of information in this document.
[2025-03-05] MEDS: Lactated Ringers 1,000 ML 15 ML IV (07:07)
--- NOTE | 2025-03-05 07:39 | PCM.PRE.AN2 ---
ASA Classification* ASA Classification ASA Classification: 3 Assessment & Plan Anesthesia* Anesthesia Assessment Anesthesia Assessment: Discussed sedation and/or anesthesia options, risks, benefits, and alternatives with patient/parents/legal guardian/POA. Questions invited. The patient/parents/legal guardian/POA seems to understand and agrees to proceed with anesthesia plan. Reviewed the physical assessment, medical history, allergy history and patient home medications list prior to surgery/procedure/anesthetic and documented any changes. Performed airway and anesthesia risk assessments. Anesthesia Type Anesthesia Type: MAC History Source History Obtained from:: Patient and Chart Anesthesia Focused Assessment* Temperature: 97.3 F Pulse Rate: 72 Blood Pressure: 140/80 Respiratory Rate: 16 Pulse Ox: 96 Oxygen Delivery Method: Room Air Airway Assessment Mouth opens: >3 cm Mallampati Score: II Teeth Condition: Intact Labs Anesthesia Preop lab: CBC WBC, (4.4-11.0) 5.8 K/mm3 01/02/25, 11:14 RBC, (4.2-5.4) 4.72 M/mm3 01/02/25, 11:14 Hgb, (12.0-15.0) 10.9 g/dL L 01/02/25, 11:14 Hct, (37-47) 36.0 % L 01/02/25, 11:14 Plt Count, (150-450) 308 K/mm3 01/02/25, 11:14 CHEMISTRY Potassium, (3.3-5.1) 4.5 mmol/L 01/02/25, 11:14 Sodium, (133-145) 142 mmol/L 01/02/25, 11:14 Magnesium, (1.5-2.2) 1.9 mg/dL 10/07/24, 03:28 BUN, (4-19) 17 mg/dL 01/02/25, 11:14 Creatinine, (0.70-1.20) 1.03 mg/dL 01/02/25, 11:14 Glucose, (70-99) 116 mg/dL H 01/02/25, 11:14 POC Glucose, (74-106) 134 mg/dL H 10/07/24, 16:11 TSH, (0.300-4.200) 0.485 uIU/mL 01/02/25, 11:14 COAG PT, (11.7-14.9) 13.5 SECONDS 02/03/22, 19:20 Pre-Assessment Diagnosis/Proposed Procedure Planned Operative Procedure(s): EGD, CSCOPE Anesthesia History 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 When Was Last Pacemaker Check QUESTION #4 FULL TEXT: You/Your Family Experience fever (hyperthermia) with Anesthesia Last Oral Intake Last Oral intake: Last Oral Intake NPO since 00:00 03/05/25 07:08 Meds taken in AM with sips of No 03/05/25 07:08 water? 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 Female Yes 03/03/25 14:57 HX of Motion Sickness Yes 03/03/25 14:57 HX of N/V After Surgery No 03/03/25 14:57 Non-Smoker Yes 03/03/25 14:57 Duration of Surgery greater No 03/03/25 14:57 than 60 minutes Number of Risk Factors 3 03/03/25 14:57 PONV Score Moderate Risk 03/03/25 14:57 Height & Weight Height & Weight: Anesthesia: Height & Weight Height 5 ft 7 in 03/05/25 07:08 Weight: 126 kg 03/05/25 07:08 Body Mass Index (BMI) 43.4 03/05/25 07:08 Respiratory Assessment Respiratory Assessment - photo booth operator: Respiratory Tract Infection Hx - photo booth operator Hx Respiratory Tract Infection No 03/04/25 13:51 STOP Sleep Apnea STOP Sleep Apnea - photo booth operator: STOP Sleep Apnea - photo booth operator Hx Hypertension Yes: CONTROLLED - RECENTLY 03/04/25 13:51 TAKEN OFF MEDS DUE TO HYPOTENSION Hx Sleep Apnea No: SLEEP STUDY SCHEDULED 03/04/25 13:51 CPAP BIPAP Do you snore loudly (louder No 03/04/25 13:51 than talking or can be heard Do you often feel tired/ No 03/04/25 13:51 fatigued/ sleepy during daytime? Has anyone observed you stop No 03/04/25 13:51 breathing during sleep? STOP Results Negative 03/05/25 07:27 QUESTION #5 FULL TEXT : Do you snore loudly (louder than talking or can be heard through closed doors)? 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 Specify any problems Hx of Preganancy in last 3 N/A 03/03/25 14:57 Months Nurse Filling Out Transfusion NBUCHER 03/03/25 14:57 & Questions: Date: 03/03/25 03/03/25 14:57 Time: 14:59 03/03/25 14:57 Patient unable to answer at this time (ie. confused, unrespo /Reproduction History /Reproductive History - photo booth operator: /Reproductive Hx- photo booth operator Hx Now No 03/04/25 13:51 Gestational Age (in weeks): EDC: Hx Hx Para Hx Section SAB No 03/03/25 14:57 Does the father of the baby or his family experience fever w Father of the baby Malignant Hypertension history comment Active Medications Active Medications: Current Medications Generic Name Dose Route Start Last Admin Trade Name Freq PRN Reason Stop Dose Admin Lactated Ringer's 1,000 mls @ 15 mls/hr 03/05/25 06:45 03/05/25 07:07 IV 15 mls/hr .Q48H NAIN Administration PFSH Medical History Post-menopausal Wears contact lenses History of renal disease Low iron Hepatitis DVT (deep venous thrombosis) Syncope History of umbilical hernia Non-smoker Cardiology follow-up encounter History of Holter monitoring History of stress test History of echocardiogram Elevated LFTs Near syncope Bradycardia Diabetes Acute coronary syndrome Incisional hernia Anxiety Fatty liver GERD (gastroesophageal reflux disease) Shortness of breath on exertion Fatigue CKD (chronic kidney disease) stage 3, GFR 30-59 ml/min MRSA (methicillin resistant Staphylococcus aureus) Insulin pump in place SIRS (systemic inflammatory response syndrome) Vitamin D deficiency Hypothyroidism Neuropathy Hives Hepatitis A Carpal tunnel syndrome Arthritis Depression High cholesterol Hypertension Migraines Asthma Morbid obesity with BMI of 45.0-49.9, adult Home Medications ?Medication ?Instructions ?Recorded ?Last Taken ?Type albuterol sulfate 90 mcg/actuation 1 puff inhalation Q4H PRN PRN 12/01/13 03/04/25 History aerosol inhaler (Ventolin HFA) Shortness Of Breath zolpidem 10 mg tablet (Ambien) 5 mg PO QHS PRN sleep 12/01/13 10/04/24 History epinephrine 0.3 mg/0.3 mL 0.3 mg (0.3 mL) IJ X1 PRN 02/03/19 03/04/25 Rx injection, auto-injector Anaphylaxis ##1 cetirizine 10 mg tablet 10 mg PO DAILY 02/03/21 03/04/25 History paroxetine HCl 40 mg tablet 40 mg PO QDAY 11/01/23 03/04/25 History finerenone 10 mg tablet (Kerendia) 10 mg PO DAILY 10/05/24 03/04/25 History pantoprazole 40 mg tablet,delayed 40 mg PO DAILY 10/05/24 03/04/25 History release polysaccharide iron complex 150 mg 150 mg PO DAILY 10/05/24 03/03/25 History iron capsule (Ferrex) levothyroxine 112 mcg tablet 112 mcg PO QDAY 10/21/24 03/04/25 History metformin 1,000 mg tablet 1,000 mg PO BID #1 TAB 11/21/24 03/03/25 Rx insulin lispro 200 unit/mL (3 mL) 1 sliding scale dose subcut ONCE 03/03/25 03/04/25 History subcutaneous pen (Humalog KwikPen U-200 Insulin) sulfamethoxazole 800 1 tab PO DAILY 03/03/25 03/04/25 History mg-trimethoprim 160 mg tablet Allergy/AdvReac Type Severity Reaction Status Date / Time doxepin Allergy Intermediate PT UNSURE Verified 03/05/25 07:01 OF REACTION nut - unspecified Allergy Anaphylaxis Verified 03/05/25 07:01 peanut Allergy Anaphylaxis Verified 03/05/25 07:01 shellfish derived Allergy Anaphylaxis Verified 03/05/25 07:01 codeine AdvReac Rash Verified 03/05/25 07:01 prednisone AdvReac Other Verified 03/05/25 07:01 sertraline HCl (From Zoloft) AdvReac Other Verified 03/05/25 07:01 Family History Daughter Bleeding disorder Brother Diabetes Hypertension CAD (coronary artery disease) Sister Diabetes Other Alcohol abuse Anxiety Arthritis Asthma Bowel disease Depression Severe allergy Surgical History History of colonoscopy History of esophagogastroduodenoscopy (EGD) S/P section History of endometrial ablation History of removal of ovarian cyst Tonsillectomy planned delivery delivered History of cholecystectomy Social History household members: none Smoking Status: Never smoker substance use type: does not use what type of physical activity do you participate in: walking Review of Systems (Anesthesia) ROS Narrative System reviewed and no additional complaints, except as documented. Physical Exam Const alert and oriented x3 HEENT dentition normal Neck full ROM Resp normal respiratory effort and normal air movement Cardio regular rate and regular rhythm Back/Spine normal ROM Neuro oriented x3 and moves all extremities
--- NOTE | 2025-03-05 08:00 | COLBX_PTH ---
PATIENT: ARLEN NGUYEN LOC: EN U#:[id number] AGE/SX: 54/F ROOM: RE03/05/[address]: Dr. Jodi Agee MD : 1970 BED: DIS: 03/05/2025 SPEC #: [id number] RECD: 03/05/25 12:46 STATUS: DARIUSZ REDelta #: [id number] SKINNY: 03/05/25 08:[address]: Jodi Agee DEPT: SURGICAL PATHOLOGY RECD BY: Ben Cortes ENTERED: 03/05/25 14:10 SP TYPE: COLON BX OTHR DR: Dr. Phu Espinoza MD Tissues: A - Gastric mucous membrane B - Ascending colon C - Rectum, NOS Procedures: Immunohistochemical Stains Surgery Specimen Level IV HEADER OPERATION: Colonoscopy, EGD with biopsy, polypectomy PRE-OP DIAGNOSIS: Fecal occult blood test positive TISSUE SUBMITTED: A- Antrum biopsy, B- Ascending colon polyp, C- Rectum biopsy MICROSCOPIC DIAGNOSIS A. Stomach, antrum, biopsy: - Antral mucosa with chronic gastritis and features of reactive gastropathy. - IHC negative for H. pylori organisms. B. Colon, ascending, polyp, polypectomy: - Tubular adenoma. C. Rectum, biopsy: - Prolapse features. MICROSCOPIC DESCRIPTION Slides are reviewed. All matched controls reacted appropriately. These tests were developed and their performance characteristics determined by [facility]. They may not have been cleared or approved by the U.S. Food and Drug Administration. The FDA has determined that such clearance or approval is not necessary. The above immunohistochemical markers and/or special?stains have been reviewed by the Pathologist. GROSS DESCRIPTION A. Received in fixative is one container labeled with the patient's name and designated Antrum biopsy. The specimen consists of one irregular fragment of aiken tissue that measures 0.5 cm. The specimen is totally submitted in one cassette. B. Received in fixative is one container labeled with the patient's name and designated Ascending colon polyp. The specimen consists of one irregular fragment of aiken tissue that measures 0.5 cm. The specimen is totally submitted in one cassette. C. Received in fixative is one container labeled with the patient's name and designated Rectum biopsy. The specimen consists of one irregular fragment of aiken tissue that measures 0.3 cm. The specimen is totally submitted in one cassette. CT 03/05/2025 CPT:84836o1,50793
--- NOTE | 2025-03-05 08:47 | OP.PROVAT_ITS ---
03/05/2025 Phu Espinoza MD [address] [place] [address] Re : Upper GI endoscopy procedure for Mary Espositojane Dear Dr. Espinoza This procedure was performed on Wednesday, March 05, 2025. My impressions and recommendations are as follows: Impressions : - Z-line variable, 40 cm from the incisors. - Erythematous mucosa in the antrum. Biopsied. - Normal examined duodenum. - Bilious gastric fluid. Recommendations : - Await pathology results. - Continue present medications. My findings are described in the full procedure note, which is enclosed. If I can be of further assistance, please feel free to contact me at Doctor phone number(s): , Work: . Sincerely, MD Jodi Matute MD 03/05/2025 8:46:26 AM This report has been signed electronically.
--- NOTE | 2025-03-05 08:47 | OP.EGD_ITS ---
Patient Name: Mary Ricks Procedure Date: 03/05/2025 7:58 AM Date of : 1970 Age: 54 Procedure: Upper GI endoscopy Indications: Heartburn, Heme positive stool Providers: Jodi Agee MD Referring MD: Phu Espinoza MD Medicines: Monitored Anesthesia Care Patient Profile: This is a 54 year old female. Complications: No immediate complications. Procedure: Pre-Anesthesia Assessment: - Prior to the procedure, a History and Physical was performed, and patient medications and allergies were reviewed. The patient's tolerance of previous anesthesia was also reviewed. The risks and benefits of the procedure and the sedation options and risks were discussed with the patient. All questions were answered, and informed consent was obtained. Prior Anticoagulants: The patient has taken no anticoagulant or antiplatelet agents. ASA Grade Assessment: Per anesthesia. After reviewing the risks and benefits, the patient was deemed in satisfactory condition to undergo the procedure. After obtaining informed consent, the endoscope was passed under direct vision. Throughout the procedure, the patient's blood pressure, pulse, and oxygen saturations were monitored continuously. The Colonoscope was introduced through the mouth, and advanced to the second part of duodenum. The upper GI endoscopy was accomplished without difficulty. The patient tolerated the procedure well. Scope In: 8:10:29 AM Scope Out: 8:12:21 AM Total Procedure Duration Time 0 hours 1 minute 52 seconds Findings: The Z-line was variable and was found 40 cm from the incisors. Striped mildly erythematous mucosa without bleeding was found in the gastric antrum. Biopsies were taken with a cold forceps for histology. Biopsies were taken with a cold forceps for Helicobacter pylori cultures. The cardia and gastric fundus were normal on retroflexion. The examined duodenum was normal. Bilious fluid was found in the gastric antrum. Impression: - Z-line variable, 40 cm from the incisors. - Erythematous mucosa in the antrum. Biopsied. - Normal examined duodenum. - Bilious gastric fluid. Recommendation: - Await pathology results. - Continue present medications. Procedure Code(s): --- Professional --- 94585, Esophagogastroduodenoscopy, flexible, transoral; with biopsy, single or multiple Diagnosis Code(s): --- Professional --- K22.89, Other specified disease of esophagus K31.89, Other diseases of stomach and duodenum R12, Heartburn R19.5, Other fecal abnormalities CPT copyright 2021 [employer]. All rights reserved. The codes documented in this report are preliminary and upon weight recorder review may be revised to meet current compliance requirements. MD Jodi Matute MD 03/05/2025 8:46:26 AM This report has been signed electronically. Number of Addenda: 0 Note Initiated On: 03/05/2025 7:58 AM
--- NOTE | 2025-03-05 08:48 | PCM.POST.ANE ---
Anesthesia: Postop Eval I Current Vital Signs Temperature: 97.7 F Pulse Rate: 71 Blood Pressure: 87/62 Respiratory Rate: 16 Pulse Ox: 95 Oxygen Delivery Method: Room Air Assessment Airway patent: Yes Spontaneous unlabored respirations: Yes Mental status: Awake and Calm nausea: No Vomiting: No Anesthesia Complication: No Fluid Hydration Crystalloid volume administer (ml): 600 Total IV fluid infused: 600 Progress Note Anesthesia document: Postop Eval 1 completed: Yes
--- NOTE | 2025-03-05 08:51 | OP.COLON_ITS ---
Patient Name: Mary Ricks Procedure Date: 03/05/2025 8:16 AM Date of : 1970 Age: 54 Procedure: Colonoscopy Indications: Heme positive stool Providers: Jodi Agee MD Referring MD: Phu Espinoza MD Medicines: Monitored Anesthesia Care Patient Profile: This is a 54 year old female. Last Colonoscopy: February 2023. Complications: No immediate complications. Procedure: Pre-Anesthesia Assessment: - Prior to the procedure, a History and Physical was performed, and patient medications and allergies were reviewed. The patient's tolerance of previous anesthesia was also reviewed. The risks and benefits of the procedure and the sedation options and risks were discussed with the patient. All questions were answered, and informed consent was obtained. Prior Anticoagulants: The patient has taken no anticoagulant or antiplatelet agents. ASA Grade Assessment: Per anesthesia. After reviewing the risks and benefits, the patient was deemed in satisfactory condition to undergo the procedure. After I obtained informed consent, the scope was passed under direct vision. Throughout the procedure, the patient's blood pressure, pulse, and oxygen saturations were monitored continuously. The Colonoscope was introduced through the anus and advanced to the terminal ileum. The colonoscopy was performed without difficulty. The patient tolerated the procedure well. The quality of the bowel preparation was good. Scope In: 8:16:07 AM Scope Withdrawal Time 0 hours 19 minutes 34 seconds Scope Out: 8:39:26 AM Total Procedure Duration Time 0 hours 23 minutes 19 seconds Findings: Hemorrhoids were found on perianal exam. Non-bleeding internal hemorrhoids were found. The hemorrhoids were Grade I (internal hemorrhoids that do not prolapse). Two sessile polyps were found in the rectum and ascending colon. The polyps were less than 5 mm in size. These polyps were removed with a cold biopsy forceps. Resection and retrieval were complete. The exam was otherwise without abnormality. Impression: - Hemorrhoids found on perianal exam. - Non-bleeding internal hemorrhoids. - Two less than 5 mm polyps in the rectum and in the ascending colon, removed with a cold biopsy forceps. Resected and retrieved. - The examination was otherwise normal. Recommendation: - Discharge patient to home. - Resume previous diet. - Continue present medications. - Await pathology results. - Repeat colonoscopy in 3 - 5 years for surveillance based on pathology results. Procedure Code(s): --- Professional --- 99234, Colonoscopy, flexible; with biopsy, single or multiple Diagnosis Code(s): --- Professional --- K64.0, First degree hemorrhoids D12.8, Benign neoplasm of rectum D12.2, Benign neoplasm of ascending colon R19.5, Other fecal abnormalities CPT copyright 2021 [employer]. All rights reserved. The codes documented in this report are preliminary and upon senior business architect review may be revised to meet current compliance requirements. MD Jodi Matute MD 03/05/2025 8:50:27 AM This report has been signed electronically. Number of Addenda: 0 Note Initiated On: 03/05/2025 8:16 AM
--- NOTE | 2025-03-05 08:51 | OP.PROVAT_ITS ---
03/05/2025 Phu Espinoza MD [address] [place] [address] Re : Colonoscopy procedure for Mary Ricks Dear Dr. Espinoza This procedure was performed on Wednesday, March 05, 2025. My impressions and recommendations are as follows: Impressions : - Hemorrhoids found on perianal exam. - Non-bleeding internal hemorrhoids. - Two less than 5 mm polyps in the rectum and in the ascending colon, removed with a cold biopsy forceps. Resected and retrieved. - The examination was otherwise normal. Recommendations : - Discharge patient to home. - Resume previous diet. - Continue present medications. - Await pathology results. - Repeat colonoscopy in 3 - 5 years for surveillance based on pathology results. My findings are described in the full procedure note, which is enclosed. If I can be of further assistance, please feel free to contact me at Doctor phone number(s): , Work: . Sincerely, MD Jodi Matute MD 03/05/2025 8:50:27 AM This report has been signed electronically.
--- NOTE | 2025-03-05 09:46 | PCM.POSTANE2 ---
Anesthesia Postop Eval I Sum Postop Eval Completion status Anesthesia document: Postop Eval 1 completed: Yes Anesthesia Postop Eval I Summary Anesthesia Postop Eval I Summary: Anesthesia Postop Eval I: Assessment Summary Airway patent Yes 03/05/25 08:49 [email or web address] Spontaneous unlabored Yes 03/05/25 08:49 [email or web address] respirations Mental status Awake,Calm 03/05/25 08:49 [email or web address] nausea No 03/05/25 08:49 [email or web address] Vomiting No 03/05/25 08:49 [email or web address] Anesthesia Postop Eval I: Fluid Summary Crystalloid volume administer 600 03/05/25 08:49 [email or web address] (ml) Colloids volume administered ( ml) Blood Product volume administered (ml) Total IV fluid infused 600 03/05/25 08:49 [email or web address] Anesthesia Postop Eval I: Summary Notes Anesthesia Complication No 03/05/25 08:49 [email or web address] Anesthesia Complication Comment: Post-operative progress note Anesthesia: Postop Eval II Evaluation Mental status: Awake and Calm Pain Level: 0 nausea: No Vomiting: No Complications Anesthesia Complication: No
== END 2025-03-05 09:35 | disposition home or self-care (01) ==
LOC: EN 06:38 → AC 06:39
PROVIDERS: PCP Family Medicine Geriatric Medicine; Referring Provider Family Medicine Geriatric Medicine; Visit Provider Surgery
PROC: 0DJD8ZZ Inspection of Lower Intestinal Tract, Via Natural or Artificial Opening Endoscopic (ICD-10-PCS; CPT 45378; principal; 2025-03-05 07:55)
DX: D12.2 Benign neoplasm of ascending colon (principal); E11.22 Type 2 diabetes mellitus with diabetic chronic kidney disease; Z79.4 Long term (current) use of insulin; N18.30 Chronic kidney disease, stage 3 unspecified; I12.9 Hypertensive chronic kidney disease with stage 1 through stage 4 chronic kidney disease, or unspecified chronic kidney disease; K64.0 First degree hemorrhoids; E78.00 Pure hypercholesterolemia, unspecified; J45.909 Unspecified asthma, uncomplicated; Z79.899 Other long term (current) drug therapy; Z79.84 Long term (current) use of oral hypoglycemic drugs; K64.4 Residual hemorrhoidal skin tags; K29.50 Unspecified chronic gastritis without bleeding; K62.1 Rectal polyp; K21.9 Gastro-esophageal reflux disease without esophagitis
CPT/HCPCS: 45380; 43239; 82962; 88305; 88342; J2405

== ENCOUNTER → 2025-03-19 | Outpatient (CLI) | payer OTHER, SELFPAY ==
--- NOTE | 2025-03-19 07:31 | US_ITS ---
PROCEDURE: ABD LIMITED W/ ELASTOGRAPHY REASON FOR EXAM: MASLD Fatty liver disease COMPARISON: April 19, 2024 TECHNIQUE: Procedure Code: [id number] Modality: US Procedure: ABD LIMITED W/ ELASTOGRAPHY Right upper quadrant abdominal ultrasound. Roshni ElastQ Imaging shear wave elastography for non-invasive assessment of liver tissue stiffness. Roshni EPIQ Elite. FINDINGS: LIVER: Length: 20 cm Echotexture: Diffusely echogenic suggesting fatty infiltration Contour: Minimal nodularity Lesions: None identified Elastography: EQI Med: 5.4 kPa EQI Med Barry: 1.32 m/s IQR/Med: 20.6 %* GALLBLADDER: Cholecystectomy COMMON BILE DUCT: Normal 8.7 mm likely on the basis of age and cholecystectomy status (reservoir effect). PANCREAS: Normal Imaged portions of the right kidney are unremarkable. It measures 11.2 x 5.7 x 4.7 cm no right upper quadrant ascites. Spleen is normal measuring 11.6 x 5.7 x 6.1 cm. US/ABD Limited w/ Elastography IMPRESSION: Diffuse hepatocellular disease. Metavir score F0-F1. Reference Values: SRU <1.37 m/s (5.7kPa): No to mild fibrosis 1.37 m/s - 2.2 m/s: Moderate to severe fibrosis >2.2 m/s (15kPa): Significant fibrosis / cirrhosis METAVIR Score F2 or higher: 1.34 m/s (5.7kPa) F3 or higher: 1.55 m/s (7.3kPa) F4: 1.80 m/s (10kPa) * If the IQR/Med is >30%, the variance in the measurements is a large and the a ccuracy of the measurement may be in question. Reading Location: [id number]
--- OUTSIDE RECORDS SUMMARY | 2025-03-19 07:32 | XMS RPT_ITS | CCD ---
Author Organization [facility] Care Team Providers Care German Professor Name Role Phone Charles Rae Primary Care [...] Provider Alexis, Dr. Phu Aldana Referring Provider [phone]([facility])[phone] ADELITA Gibbons Attending Provider Dr. Dante Pruitt Emergency Provider Dr. Megan Gomez Admit Provider Dr. Megan Gomez Other Provider Dr. Jodi Agee Attending Provider Dr. Jodi Agee Other Provider Dr. Marcellus Ceballos Other Provider 1([facility])[phone] Marcellus Ceballos Attending Provider 1([facility])[phone] Alexis, Dr. Phu Aldana Primary Care Provider Alexis, Dr. Phu Aldana Referring Provider Jemma SIMMONS, IRIS Sofia Attending Provider IRIS Lemus Attending Provider Shai, MOLD SPRAYER-C Massiel Attending Provider Alexis, Dr. Phu Aldana Primary Care Provider Alexis, Dr. Phu Aldana Referring Provider Shai, MOLD SPRAYER-C [place] Attending Provider Alexis, Dr. Phu Aldana Primary Care Provider Alexis, Dr. Phu Aldana Referring Provider Shai, MOLD SPRAYER-C [place] Attending Provider Alexis, Dr. Phu Aldana Primary Care Provider Alexis, Dr. Phu Aldana Referring Provider Shai, MOLD SPRAYER-C Massiel Attending Provider Dr. Jodi Agee Attending Provider Dr. Jodi Agee Other Provider Alexis, Dr. Phu Aldana Primary Care Provider Alexis, Dr. Phu Aldana Referring Provider Shai, MOLD SPRAYER-C Massiel Attending Provider Alexis, Dr. Phu Aldana Primary Care Provider Alexis, Dr. Phu Aldana Referring Provider Shai, MOLD SPRAYER-C Massiel Attending Provider Dr. Jodi Agee Attending Provider Dr. Jodi Agee Other Provider Alexis DICKENS, Dr. Phu Aldana Primary Care Provider Alexis DICKENS, Dr. Phu Aldana Referring Provider Cyndie DICKENS, Dr. Zapata Attending Provider Cyndie DICKENS, Dr. Zapata Referring Provider Shai MOLD SPRAYER-C, [place]iel Attending Provider Shai MOLD SPRAYER-C, [place] Referring Provider Alexis DICKENS, Dr. Phu Aldana Attending Provider Alexis DICKENS, Dr. Phu Aldana Primary Care Provider [phone] Alexis DICKENS, Dr. Phu Aldana Referring Provider Kirstie CRUZ, Dr. Walton Emergency Provider [facility] , Dr. Pacheco Admit Provider [facility] DO, Dr. Pacheco Attending Provider [facility], Dr. Pacheco Other Provider Geremias [...] Dr. Phu Aldana Primary Care Provider [phone] lAexis DICKENS, Dr. Phu Aldana Attending Provider Alexis DICKENS, Dr. Phu Aldana Referring Provider Alexis DICKENS, Dr. Phu Aldana Other Provider [phone] Dariel DICKENS, Dr. Tenorio Attending Provider Alexis DICKENS, Dr. Phu Aldana Primary Care Physician [phone] Kirstie CRUZ, Dr. Walton Emergency Department Physici an Shaun CRUZ, Dr. Pacheco Admitting Physician Shaun CRUZ, Dr. Pacheco Nurse Practitioner Geremias DICKENS, Dr. Cunningham Attending Physician Unavail able Jason DICKENS, Dr. Megan Coker Nurse Practitioner Jason DICKENS, Dr. Megan Coker Attending Physician Geremias DICKENS, Dr. Cunningham Nurse Practitioner Erik Scahefer MD, Dr. Bond Attending Physician [phone] Bernie DICKENS, Dr. Moreno Attending Physician Alexis DICKENS, Dr. Phu Aldana Attending Physician Cyndie DICKENS, Dr. Zapata Attending Physician Alexis DICKENS, Dr. Phu Aldana Nurse Practitioner Dariel DICKENS, Dr. Tenorio Attending Physician Bernie DCIKENS, Dr. Moreno Referring Provider Bernie DICKENS, Dr. Moreno Nurse Practitioner Shai MOLD SPRAYER-C, Massiel Attending Physician Shai MOLD SPRAYER-C, Massiel Referring Provider Alexis DICKENS, Dr. Phu Aldana Primary Care Physician Dr. Anton Thacker DO Emergency Department Physici an [facility], Dr. Pacheco Admitting Physician [facility], Dr. Pacheco Nurse Practitioner Geremias [...] Provider Dr. Josh Gibbs MD Nurse Practitioner [phone] Shai MOLD SPRAYER-C, Massiel Attending Physician Shai MOLD SPRAYER-CMassiel Referring Provider [phone] Alexis, Phu Chi Primary Care Unavailable Alexis, Phu Chi Referring Unavailable Alexis, Phu Chi Attending Unavailable Alexis, Phu Chi Primary Care Unavailable Alexis, Phu Chi Referring Unavailable Alexis, Phu Chi Attending Unavailable Shai, Massiel Attending Unavailable Alexis, Phu Chi Primary Care Unavailable Alexis, Phu Chi Referring Unavailable Bernie, [place] Referring Unavailable Bernie, [place] Attending Unavailable Alexis, Phu Chi Primary Care [...] Unavailable Alexis, Phu Chi Attending Unavailable Bernie, [place] Consulting Unavailable Bernie, Josh Referring Unavailable Bernie, Josh Attending Unavailable Alexis, Phu Chi Primary Care Unavailable Bernie, [place] Referring Unavailable Bernie, Josh Attending Unavailable Alexis, Phu Chi Primary Care Unavailable Bernie, [place] Referring Unavailable Bernie, Josh Attending Unavailable Alexis, [...] Codeine Drug Allergy 6 Mental Status Change [facility] (20 sources) predniSONE Drug Allergy 6 Mental Status Change [facility] (1 source) Sertraline Drug Allergy 2 Unknown [facility] (8 sources) Nuts (not including peanuts) Allergy to substance 2 Anaphylaxis [facility] Work Phone: (20 sources) peanut allergenic extract Drug Allergy 2 Anaphylaxis [facility] (20 sources) Sertraline; Translations: [sertraline HCl] Drug Allergy 2 Other [facility] (20 sources) Shellfish; Translations: [shellfish derived] Allergy to substance 2 Anaphylaxis [facility] (20 sources) nut - unspecified; Translations: [nut - unspecified] Allergy to substance 2 Anaphylaxis [facility] (9 sources) Doxepin Drug Allergy 5 PT UNSURE OF REACTION [facility] (1 source) Codeine Drug Allergy 5 [facility] Repository (1 source) Doxepin Drug Allergy 5 [facility] (1 source) peanut allergenic extract Drug Allergy 5 [facility] (1 source) predniSONE Drug Allergy 5 [facility] Medications Current Medications Medication Drug [...] 27, 2021 1:14pm June 09, 2021 4:30pm [id number] 0.3 ml EPINEPHrine 1 mg/ml auto-injector (20 [...] mellitus Type 2 diabetes mellitus with hyperglycemia jail (current) use of insulin to be used [...] Methicillin resistant Staphylococcus aureus infection, unspecified site jail Start: 05-11-2022 End: 02-15-2023 take 1 tablet by mouth once daily Sulfamethoxazole-Trimethoprim Discontinued 1 TABLET PO DAILY May 11, 2022 1:00am February 15, 2023 3:18pm [facility] valsartan 320 mg oral tablet (19 sources) [...] mellitus Type 2 diabetes mellitus with hyperglycemia [facility] (current) use of insulin 1 transmitter q [...] unspecified site] 10-24-2024 Episodic Comment on above: [facility] keflex and bactrim Cardiac dysrhythmias (18 sources) [...] 10-29-2024 10-05-2024 Episodic Other aftercare (1 source) [facility] (current) use of insulin; Translations: [jail (current) use of insulin] Onset: 05-02-2024 Episodic Other lower respiratory disease (1 source) Wheezing; Translations: [Wheezing] Onset: 04-04-2024 Episodic Residual codes; unclassified (1 source) Chills (without fever); Translations: [Chills (without fever)] Onset: 04-04-2024 Episodic Results Test Name Value Interpretation Reference Range Facility Absolute lymphocyte countOrd ered By: Phu Espinoza on 01-02-2025 Lymphocytes Auto (Unsp spec) [#/Vol] 2.39 10*3/uL 0.83-4.51 [facility] Anion gap in Serum or Plasma Ordered By: Phu Espinoza on 01-02-2025 Anion gap [Moles/Vol] 11 mmol/L - [facility] Automated lymphocyte count a s percentage of total leukocytesOrdered By: Phu Espinoza on 01-02-2025 Lymphocytes/100 WBC Auto (Unsp spec) 41.0 % - [facility] BUN/creatinine ratioOrdered By: Phu Espinoza on 01-02-2025 Urea nitrogen/Creatinine [Mass ratio] 16.2 mg/mg 01-13 [facility] Basophil percentageOrdered B y: Phu Espinoza on 01-02-2025 Basophils/100 WBC (Bld) 0.9 % 0-1 [facility] Bilirubin, totalOrdered By: Phu Espinoza on 01-02-2025 Bilirubin [Mass/Vol] 0.26 mg/dL 0.00-1.30 [facility] CBC W/Diff, Automatedon 10-0 9-2025 Absolute Lymph 2.39 X10 3/uL Normal 0.83-4.51 [facility] Comment on above: Performed By: #### L 501.9520, L100.0100, L500.4050 ####[facility] [address] [place], [address] Absolute Neut 2.4 X10 3/uL Normal 2.0-7.7 [facility] Comment on above: Performed By: #### L 501.9520, L100.0100, L500.4050 ####[facility] [address] [place], [address] Basophils/100 WBC (Bld) 0.9 % Normal 0-1 [facility] Comment on above: Performed By: #### L 501.9520, L100.0100, L500.4050 ####[facility] [address] [place], [address] Eosinophils/100 WBC (Bld) 3.3 % Normal 0-5 [facility] Comment on above: Performed By: #### L 501.9520, L100.0100, L500.4050 ####[facility] [address] [place], [address] Erythrocyte distribution width (RBC) [Ratio] 15.4 % High 11.6-14.6 [facility] Comment on above: Performed By: #### L 501.9520, L100.0100, L500.4050 ####[facility] [address] [place], [address] Hematocrit (Bld) [Volume fraction] 36.0 % Low 37-47 [facility] Comment on above: Performed By: #### L 501.9520, L100.0100, L500.4050 ####[facility] [address] [place], [address] Hemoglobin (Bld) [Mass/Vol] 10.9 g/dL Low 12.0-15.0 [facility] Comment on above: Performed By: #### L 501.9520, L100.0100, L500.4050 ####[facility] [address] [place], [address] IG% 0.300 Normal 0.0-0.9 [facility] Comment on above: Result Comment: IG% - Immature Granulocytes (promyelocytes, myelocytes and metamyelocytes) > 1% indicates that a LEFT SHIFT is Present. Performed By: #### L 501.9520, L100.0100, L500.4050 ####[facility] [address] [place], [address] Lymphocytes/100 WBC (Bld) 41.0 % Normal 19-41 [facility] Comment on above: Performed By: #### L 501.9520, L100.0100, L500.4050 ####[facility] [address] [place], [address] MCH (RBC) [Entitic mass] 23.1 pg Low 27.0-32.0 [facility] Comment on above: Performed By: #### L 501.9520, L100.0100, L500.4050 ####[facility] [address] [place], [address] MCHC (RBC) [Mass/Vol] 30.3 g/dL Low 32-36 [facility] Comment on above: Performed By: #### L 501.9520, L100.0100, L500.4050 ####[facility] [address] [place], [address] MCV (RBC) [Entitic vol] 76.3 fL Low 81-99 [facility] Comment on above: Performed By: #### L 501.9520, L100.0100, L500.4050 ####[facility] [address] [place], [address] Monocytes/100 WBC (Bld) 12.9 % High 0-10 [facility] Comment on above: Performed By: #### L 501.9520, L100.0100, L500.4050 ####[facility] [address] [place], [address] Neutrophils/100 WBC (Bld) 41.6 % Low 47-70 [facility] Comment on above: Performed By: #### L 501.9520, L100.0100, L500.4050 ####[facility] [address] [place], [address] Nucleated RBC (Bld) [#/Vol] 0 10*3/uL Normal 0-5 [facility] Comment on above: Performed By: #### L 501.9520, L100.0100, L500.4050 ####[facility] [address] [place], [address] Platelet mean volume (Bld) [Entitic vol] 9.5 fL Normal 6.2-12.0 [facility] Comment on above: Performed By: #### L 501.9520, L100.0100, L500.4050 ####[facility] [address] [place], [address] Platelets (Bld) [#/Vol] 308 10*3/uL Normal 150-450 [facility] Comment on above: Performed By: #### L 501.9520, L100.0100, L500.4050 ####[facility] [address] [place], [address] RBC (Bld) [#/Vol] 4.72 10*6/uL Normal 4.2-5.4 [facility] Comment on above: Performed By: #### L 501.9520, L100.0100, L500.4050 ####[facility] [address] [place], [address] RDW SD 41.7 fl Normal 35.1-43.9 [facility] Comment on above: Performed By: #### L 501.9520, L100.0100, L500.4050 ####[facility] [address] [place], [address] WBC (Bld) [#/Vol] 5.8 10*3/uL Normal 4.4-11.0 [facility] Comment on above: Performed By: #### L 501.9520, L100.0100, L500.4050 ####[facility] [address] [place], [address] Carbon dioxide, total [Moles /volume] in Central venous bloodOrdered By: Phu Espinoza on 01-02-2025 CO2 [Moles/Vol] 27.4 mmol/L 21.0-32.0 [facility] Chloride assayOrdered By: Sloan Espinoza on 01-02-2025 Chloride [Moles/Vol] 103 mmol/L 98-108 [facility] Comprehensive Metabolic Prof ilon 01-02-2025 Albumin [Mass/Vol] 4.3 g/dL Normal 3.5-5.0 [facility] Comment on above: Performed By: #### L 501.9520, L100.0100, L500.4050 ####[facility] [address] [place], [address] Albumin/Globulin [Mass ratio] 1.4 {ratio} Normal 0.9-2.4 [facility] Comment on above: Performed By: #### L 501.9520, L100.0100, L500.4050 ####[facility] [address] [place], [address] ALK PHOS 54 U/L Normal 35-104 [facility] Comment on above: Performed By: #### L 501.9520, L100.0100, L500.4050 ####[facility] [address] [place], [address] ALT [Catalytic activity/Vol] 75 U/L High <=34 [facility] Comment on above: Performed By: #### L 501.9520, L100.0100, L500.4050 ####[facility] [address] [place], [address] AST [Catalytic activity/Vol] 60 U/L High <=31 [facility] Comment on above: Performed By: #### L 501.9520, L100.0100, L500.4050 ####[facility] [address] [place], [address] Bilirubin [Mass/Vol] 0.26 mg/dL Normal 0.00-1.30 [facility] Comment on above: Performed By: #### L 501.9520, L100.0100, L500.4050 ####[facility] [address] [place], [address] BUN/CRE 16.2 RATIO Normal 10-20 [facility] Comment on above: Performed By: #### L 501.9520, L100.0100, L500.4050 ####[facility] [address] [place], [address] Calcium [Mass/Vol] 9.5 mg/dL Normal 7.6-11.0 [facility] Comment on above: Performed By: #### L 501.9520, L100.0100, L500.4050 ####[facility] [address] [place], [address] Chloride [Moles/Vol] 103 mmol/L Normal 98-108 [facility] Comment on above: Performed By: #### L 501.9520, L100.0100, L500.4050 ####[facility] [address] [place], [address] CO2 [Moles/Vol] 27.4 mmol/L Normal 21.0-32.0 [facility] Comment on above: Performed By: #### L 501.9520, L100.0100, L500.4050 ####[facility] [address] [place], [address] Creatinine [Mass/Vol] 1.03 mg/dL Normal 0.70-1.20 [facility] Comment on above: Performed By: #### L 501.9520, L100.0100, L500.4050 ####[facility] [address] [place], [address] GAP 11 Normal 5-15 [facility] Comment on above: Performed By: #### L 501.9520, L100.0100, L500.4050 ####[facility] [address] [place], [address] GFR/1.73 sq M.predicted among non-blacks MDRD (S/P/Bld) [Vol rate/Area] 65 mL/min/{1.73_m2} Normal >60 [facility] Comment on above: Result Comment: mL/m in/1.73m2 CKD-EPI Creatinine Equation (2020) Performed By: #### L 501.9520, L100.0100, L500.4050 ####[facility] [address] [place], [address] Globulin (S) [Mass/Vol] 3.2 g/dL Normal 2.2-4.2 [facility] Comment on above: Performed By: #### L 501.9520, L100.0100, L500.4050 ####[facility] [address] [place], [address] Glucose [Mass/Vol] 116 mg/dL High 70-99 [facility] Comment on above: Performed By: #### L 501.9520, L100.0100, L500.4050 ####[facility] [address] [place], [address] Potassium [Moles/Vol] 4.5 mmol/L Normal 3.3-5.1 [facility] Comment on above: Performed By: #### L 501.9520, L100.0100, L500.4050 ####[facility] [address] [place], [address] Sodium [Moles/Vol] 142 mmol/L Normal 133-145 [facility] Comment on above: Performed By: #### L 501.9520, L100.0100, L500.4050 ####[facility] [address] [place], [address] T PROT 7.5 g/dL Normal 5.9-8.4 [facility] Comment on above: Performed By: #### L 501.9520, L100.0100, L500.4050 ####[facility] [address] [place], [address] Urea nitrogen [Mass/Vol] 17 mg/dL Normal 4-19 [facility] Comment on above: Performed By: #### L 501.9520, L100.0100, L500.4050 ####[facility] [address] [place], [address] Eosinophil percentageOrdered By: Phu Espinoza on 01-02-2025 Eosinophils/100 WBC (Bld) 3.3 % 0-5 [facility] Erythrocyte distribution wid th ratioOrdered By: Phu Espinoza on 01-02-2025 Erythrocyte distribution width (RBC) [Ratio] 15.4 % High 11.6-14.6 [facility] Erythrocyte distribution wid th standard deviationOrdered By: Phu Espinoza on 01-02-2025 Erythrocyte distribution width (RBC) [Ratio] 41.7 fl 35.1-43.9 [facility] Glomerular filtration rate ( GFR) estimation/1.73 sq m using serum, plasma, or whole bOrdered By: Phu Espinoza on 01-02-2025 GFR/1.73 sq M.predicted among non-blacks MDRD (S/P/Bld) [Vol rate/Area] 65 mL/min/{1.73_m2} >60 [facility] Hematocrit Auto (Bld) [Volum e fraction]Ordered By: Phu Espinoza on 01-02-2025 Hematocrit (Bld) [Volume fraction] 36.0 % Low 37-47 [facility] Hemoglobin measurementOrdere d By: Phu Espinoza on 01-02-2025 Hemoglobin (Bld) [Mass/Vol] 10.9 g/dL Low 12.0-15.0 [facility] Immature granulocytes/100 WB C Auto (Bld)Ordered By: Phu Espinoza on 01-02-2025 Immature granulocytes/100 WBC (Bld) 0.300 % 0.0-0.9 [facility] MCV (mean corpuscular volume ) determinationOrdered By: Phu Espinoza on 01-02-2025 MCV (RBC) [Entitic vol] 76.3 fL Low 81-99 [facility] Mean corpuscular hemoglobin (MCH) determinationOrdered By: Phu Espinoza on 01-02-2025 MCH (RBC) [Entitic mass] 23.1 pg Low 27.0-32.0 [facility] Monocyte percentageOrdered B y: Phu Espinoza on 01-02-2025 Monocytes/100 WBC (Bld) 12.9 % High 0-10 [facility] Neutrophil percentageOrdered By: Phu Espinoza on 01-02-2025 Neutrophils/100 WBC (Bld) 41.6 % Low 47-70 [facility] No Panel InformationOrdered By: Phu Espinoza on 01-02-2025 60 U/L High <32 [facility] Platelet countOrdered By: Sloan Espinoza on 01-02-2025 Platelets (Bld) [#/Vol] 308 10*3/uL 150-450 [facility] Potassium measurement (mass/ volume)Ordered By: Phu Espinoza on 01-02-2025 Potassium (Unsp spec) [Mass/Vol] 4.5 mmol/L 3.3-5.1 [facility] RBC Auto (Bld) [#/Vol]Ordere d By: Phu Espinoza on 01-02-2025 RBC (Bld) [#/Vol] 4.72 10*6/uL 4.2-5.4 [facility] Serum creatinine measurement (mass/volume)Ordered By: Phu Espinoza on 01-02-2025 Creatinine [Mass/Vol] 1.03 mg/dL 0.70-1.20 [facility] Serum globulin measurementOr dered By: Phu Espinoza on 01-02-2025 Globulin (S) [Mass/Vol] 3.2 g/dL 2.2-4.2 [facility] Serum glucose measurement (m ass/volume)Ordered By: Phu Espinoza on 01-02-2025 Glucose [Mass/Vol] 116 mg/dL High 70-99 [facility] Serum or plasma alanine tobar otransferase (ALT) measurementOrdered By: Phu Espinoza on 01-02-2025 ALT [Catalytic activity/Vol] 75 U/L High <35 [facility] Serum or plasma albumin thiago urement (mass/volume)Ordered By: Phu Espinoza on 01-02-2025 Albumin [Mass/Vol] 4.3 g/dL 3.5-5.0 [facility] Serum or plasma albumin/glob ulin mass ratioOrdered By: Phu Espinoza on 01-02-2025 Albumin/Globulin [Mass ratio] 1.4 {ratio} 0.9-2.4 [facility] Serum or plasma alkaline meg sphatase measurementOrdered By: Phu Espinoza 01-02-2025 ALP [Catalytic activity/Vol] 54 U/L 35-104 [facility] Serum or plasma calcium thiago urement (mass/volume)Ordered By: Phu Espinoza on 01-02-2025 Calcium [Mass/Vol] 9.5 mg/dL 7.6-11.0 [facility] Serum or plasma urea nitroge n measurement (mass/volume)Ordered By: Phu Espinoza on 01-02-2025 Urea nitrogen [Mass/Vol] 17 mg/dL 4-19 [facility] Sodium levelOrdered By: Phu Espinoza on 01-02-2025 Sodium [Moles/Vol] 142 mmol/L 133-145 [facility] TSH DL <= 0.005 mIU/L QnOrde red By: Phu Espinoza on 01-02-2025 TSH Qn 0.485 uIU/mL 0.300-4.200 [facility] Thyroid Stim Hormone (TSH)on 01-02-2025 TSH 0.485 uIU/mL Normal 0.300-4.200 [facility] Comment on above: Performed By: #### L 501.9520, L100.0100, L500.4050 ####[facility] [address] [place], [address] Total proteinOrdered By: Phu Espinoza on 01-02-2025 Protein [Mass/Vol] 7.5 g/dL 5.9-8.4 [facility] White blood cell (WBC) count Ordered By: Phu Espinoza on 01-02-2025 WBC (Bld) [#/Vol] 5.8 10*3/uL 4.4-11.0 [facility] Lyme Antibodies,W [place] Lyme Additional Comment Normal . [facility] Comment on above: Result Comment: Per CDC [...] Performed By: #### L 503.0106, L100.0100 #### [facility] [address] [place], [address] LYME IgG INTERP Negative Normal Negative [facility] Comment on above: Performed By: #### L 503.0106, L100.0100 #### [facility] [address] [place], [address] LYME IgM INTERP Negative Normal Negative [facility] Comment on above: Result Comment: Meek gan Note: Lyme immunoblot alone is not recommended for the diagnosis of Lyme disease. Current guidelines recommend the use of a two-tiered approach to Lyme serology testing to improve the sensitivity and specificity of testing. [facility] offers test code 413527 Lyme Disease Serology with Reflex to aid in the diagnosis of Lyme Disease. Performed By: #### L 503.0106, L100.0100 #### [facility] [address] [place], [address] P18 Ab Absent Normal . [facility] Comment on above: Performed By: #### L 503.0106, L100.0100 #### [facility] [address] [place], [address] P23 Ab Absent Normal . [facility] Comment on above: Performed By: #### L 503.0106, L100.0100 #### [facility] [address] [place], [address] P28 Ab Absent Normal . [facility] Comment on above: Performed By: #### L 503.0106, L100.0100 #### [facility] [address] [place], [address] P30 Ab Absent Normal . [facility] Comment on above: Performed By: #### L 503.0106, L100.0100 #### [facility] [address] [place], [address] P39 Ab Absent Normal . [facility] Comment on above: Performed By: #### L 503.0106, L100.0100 #### [facility] [address] [place], [address] P41 Ab Absent Normal . [facility] Comment on above: Performed By: #### L 503.0106, L100.0100 #### [facility] [address] [place], [address] P45 Ab Absent Normal . [facility] Comment on above: Performed By: #### L 503.0106, L100.0100 #### [facility] [address] [place], [address] P58 Ab Present Normal . [facility] Comment on above: Performed By: #### L 503.0106, L100.0100 #### [facility] [address] [place], [address] P66 Ab Absent Normal . [facility] Comment on above: Performed By: #### L 503.0106, L100.0100 #### [facility] [address] [place], [address] P93 Ab Absent Normal . [facility] Comment on above: Performed By: #### L 503.0106, L100.0100 #### [facility] [address] [place], [address] Lyme Screen W/Reflex WBon LYME SCREEN Ab Negative Normal Negative [facility] Comment on above: Result Comment: Lyme antibodies not detected. Reflex testing is not indicated. No laboratory evidence of infection with B. burgdorferi (Lyme disease). Negative results may occur in patients recently infected (less than or equal to 14 days) with B. burgdorferi. If recent infection is suspected, repeat testing on a new sample collected in 7 to 14 days is recommended. Performed at: [address] [id number] Pulverizing And Sifting Operator: Pauline Yang MD, Phone: [phone] Performed at: [address] [id number] Pulverizing And Sifting Operator: Spencer Carbajal PhD, Phone: [phone] Performed By: #### L 503.0106, L100.0100 #### [facility] [address] [place], [address] Tilt Tableon 12-24-2024 Tilt Table [facility] [address] [place] [address] 12/24/241922 MR#: [id number] Acct: [id number] Name: ARLEN NGUYEN Rep #: [id number] : 1970 54 From: Josh Gibbs MD Attending Dr: Dr. Josh Gibbs MD Status: REG C Ordering Dr: Josh iGbbs MD Date: 12/24/24 Location: [facility] Sex: F C Admitted: [...] MD Date Dictated: 12/24/241922 Date Transcribed: 12/24/241922 Digital Content Manager: [place] Signed Normal [facility] Absolute lymphocyte countOrd ered By: Josh Gibbs on 12-23-2024 Lymphocytes Auto (Unsp spec) [#/Vol] 2.65 10*3/uL 0.83-4.51 [facility] Absolute neutrophil countOrd ered By: Josh Bernie on 12-23-2024 Neutrophils (Bld) [#/Vol] 3.1 10*3/uL 2.0-7.7 [facility] Anion gap in Serum or Plasma Ordered By: Josh [facility] on 12-23-2024 Anion gap [Moles/Vol] 14 mmol/L 5-15 [facility] Automated lymphocyte count a s percentage of total leukocytesOrdered By: Josh [facility] on 12-23-2024 Lymphocytes/100 WBC Auto (Unsp spec) 39.8 % 19-41 [facility] BUN/creatinine ratioOrdered By: Josh [facility] on 12-23-2024 Urea nitrogen/Creatinine [Mass ratio] 23.6 mg/mg High 10-20 [facility] Basic Metabolic Profile (BMP )on 12-23-2024 BUN/CRE 23.6 RATIO High - [facility] Comment on above: Order Comment: For t ilt table test Performed By: #### L 503.0106, L100.0100 #### [facility] [address] [place], [address] Calcium [Mass/Vol] 9.7 mg/dL Normal 7.6-11.0 [facility] Comment on above: Order Comment: For t ilt table test Performed By: #### L 503.0106, L100.0100 #### [facility] [address] [place], [address] Chloride [Moles/Vol] 102 mmol/L Normal 98-108 [facility] Comment on above: Order Comment: For t ilt table test Performed By: #### L 503.0106, L100.0100 #### [facility] [address] [place], [address] CO2 [Moles/Vol] 24.6 mmol/L Normal 21.0-32.0 [facility] Comment on above: Order Comment: For t ilt table test Performed By: #### L 503.0106, L100.0100 #### [facility] [address] [place], [address] Creatinine [Mass/Vol] 0.90 mg/dL Normal 0.70-1.20 [facility] Comment on above: Order Comment: For t ilt table test Performed By: #### L 503.0106, L100.0100 #### [facility] [address] [place], [address] GAP 14 Normal 5-15 [facility] Comment on above: Order Comment: For t ilt table test Performed By: #### L 503.0106, L100.0100 #### [facility] [address] [place], [address] GFR/1.73 sq M.predicted among non-blacks MDRD (S/P/Bld) [Vol rate/Area] 76 mL/min/{1.73_m2} Normal >60 [facility] Comment on above: Order Comment: For t ilt table test Result Comment: mL/m in/1.73m2 CKD-EPI Creatinine Equation (2020) Performed By: #### L 503.0106, L100.0100 #### [facility] [address] [place], [address] Glucose [Mass/Vol] 115 mg/dL High 70-99 [facility] Comment on above: Order Comment: For t ilt table test Performed By: #### L 503.0106, L100.0100 #### [facility] [address] [place], [address] Potassium [Moles/Vol] 4.2 mmol/L Normal 3.3-5.1 [facility] Comment on above: Order Comment: For t ilt table test Performed By: #### L 503.0106, L100.0100 #### [facility] [address] [place], [address] Sodium [Moles/Vol] 141 mmol/L Normal 133-145 [facility] Comment on above: Order Comment: For t ilt table test Performed By: #### L 503.0106, L100.0100 #### [facility] [address] [place], [address] Urea nitrogen [Mass/Vol] 21 mg/dL High 4-19 [facility] Comment on above: Order Comment: For t ilt table test Performed By: #### L 503.0106, L100.0100 #### [facility] [address] [place], [address] Basophil percentageOrdered B y: [place] Bernie on 12-23-2024 Basophils/100 WBC (Bld) 0.8 % 0-1 [facility] CBC W/Diff, Automatedon 11-26 Absolute Lymph 2.65 X10 3/uL Normal 0.83-4.51 [facility] Comment on above: Order Comment: Comme nts: For tilt table test Performed By: #### L 503.0106, L100.0100 #### [facility] [address] [place], [address] Absolute Neut 3.1 X10 3/uL Normal 2.0-7.7 [facility] Comment on above: Order Comment: Comme nts: For tilt table test Performed By: #### L 503.0106, L100.0100 #### [facility] [address] [place], [address] Basophils/100 WBC (Bld) 0.8 % Normal 0-1 [facility] Comment on above: Order Comment: Comme nts: For tilt table test Performed By: #### L 503.0106, L100.0100 #### [facility] [address] [place], [address] Eosinophils/100 WBC (Bld) 2.0 % Normal 0-5 [facility] Comment on above: Order Comment: Comme nts: For tilt table test Performed By: #### L 503.0106, L100.0100 #### [facility] [address] [place], [address] Erythrocyte distribution width (RBC) [Ratio] 15.2 % High 11.6-14.6 [facility] Comment on above: Order Comment: Comme nts: For tilt table test Performed By: #### L 503.0106, L100.0100 #### [facility] [address] [place], [address] Hematocrit (Bld) [Volume fraction] 34.1 % Low 37-47 [facility] Comment on above: Order Comment: Comme nts: For tilt table test Performed By: #### L 503.0106, L100.0100 #### [facility] [address] [place], [address] Hemoglobin (Bld) [Mass/Vol] 10.8 g/dL Low 12.0-15.0 [facility] Comment on above: Order Comment: Comme nts: For tilt table test Performed By: #### L 503.0106, L100.0100 #### [facility] [address] [place], [address] IG% 0.500 Normal 0.0-0.9 [facility] Comment on above: Order Comment: Comme nts: For tilt table test Result Comment: IG% - Immature Granulocytes (promyelocytes, myelocytes and metamyelocytes) > 1% indicates that a LEFT SHIFT is Present. Performed By: #### L 503.0106, L100.0100 #### [facility] [address] [place], [address] Lymphocytes/100 WBC (Bld) 39.8 % Normal 19-41 [facility] Comment on above: Order Comment: Comme nts: For tilt table test Performed By: #### L 503.0106, L100.0100 #### [facility] [address] [place], [address] MCH (RBC) [Entitic mass] 23.6 pg Low 27.0-32.0 [facility] Comment on above: Order Comment: Comme nts: For tilt table test Performed By: #### L 503.0106, L100.0100 #### [facility] [address] [place], [address] MCHC (RBC) [Mass/Vol] 31.7 g/dL Low 32-36 [facility] Comment on above: Order Comment: Comme nts: For tilt table test Performed By: #### L 503.0106, L100.0100 #### [facility] [address] [place], [address] MCV (RBC) [Entitic vol] 74.6 fL Low 81-99 [facility] Comment on above: Order Comment: Comme nts: For tilt table test Performed By: #### L 503.0106, L100.0100 #### [facility] [address] [place], [address] Monocytes/100 WBC (Bld) 10.4 % High 0-10 [facility] Comment on above: Order Comment: Comme nts: For tilt table test Performed By: #### L 503.0106, L100.0100 #### [facility] [address] [place], [address] Neutrophils/100 WBC (Bld) 46.5 % Low 47-70 [facility] Comment on above: Order Comment: Comme nts: For tilt table test Performed By: #### L 503.0106, L100.0100 #### [facility] [address] [place], [address] Nucleated RBC (Bld) [#/Vol] 0 10*3/uL Normal 0-5 [facility] Comment on above: Order Comment: Comme nts: For tilt table test Performed By: #### L 503.0106, L100.0100 #### [facility] [address] [place], [address] Platelet mean volume (Bld) [Entitic vol] 9.5 fL Normal 6.2-12.0 [facility] Comment on above: Order Comment: Comme nts: For tilt table test Performed By: #### L 503.0106, L100.0100 #### [facility] [address] [place], [address] Platelets (Bld) [#/Vol] 279 10*3/uL Normal 150-450 [facility] Comment on above: Order Comment: Comme nts: For tilt table test Performed By: #### L 503.0106, L100.0100 #### [facility] [address] [place], [address] RBC (Bld) [#/Vol] 4.57 10*6/uL Normal 4.2-5.4 [facility] Comment on above: Order Comment: Comme nts: For tilt table test Performed By: #### L 503.0106, L100.0100 #### [facility] [address] [place], [address] RDW SD 40.5 fl Normal 35.1-43.9 [facility] Comment on above: Order Comment: Comme nts: For tilt table test Performed By: #### L 503.0106, L100.0100 #### [facility] [address] [place], [address] WBC (Bld) [#/Vol] 6.7 10*3/uL Normal 4.4-11.0 [facility] Comment on above: Order Comment: Comme nts: For tilt table test Performed By: #### L 503.0106, L100.0100 #### [facility] [address] [place], [address] Carbon dioxide, total [Moles /volume] in Central venous bloodOrdered By: Josh Gibbs on 12-23-2024 CO2 [Moles/Vol] 24.6 mmol/L 21.0-32.0 [facility] Chloride assayOrdered By: Mauricio ril Bernie on 12-23-2024 Chloride [Moles/Vol] 102 mmol/L 98-108 [facility] Eosinophil percentageOrdered By: Josh Bernie on 12-23-2024 Eosinophils/100 WBC (Bld) 2.0 % 0-5 [facility] Erythrocyte distribution wid th ratioOrdered By: [place] Bernie on 12-23-2024 Erythrocyte distribution width (RBC) [Ratio] 15.2 % High 11.6-14.6 [facility] Erythrocyte distribution wid th standard deviationOrdered By: Josh Bernie on 12-23-2024 Erythrocyte distribution width (RBC) [Ratio] 40.5 fl 35.1-43.9 [facility] Glomerular filtration rate ( GFR) estimation/1.73 sq m using serum, plasma, or whole bOrdered By: Josh Gibbs on 12-23-2024 GFR/1.73 sq M.predicted among non-blacks MDRD (S/P/Bld) [Vol rate/Area] 76 mL/min/{1.73_m2} >60 [facility] Comment on above: mL/min/1.73m2 CKD-EP I Creatinine Equation (2020) Hematocrit Auto (Bld) [Volum e fraction]Ordered By: Josh Gibbs on 12-23-2024 Hematocrit (Bld) [Volume fraction] 34.1 % Low 37-47 [facility] Hemoglobin measurementOrdere d By: [place] Bernie on 12-23-2024 Hemoglobin (Bld) [Mass/Vol] 10.8 g/dL Low 12.0-15.0 [facility] Immature granulocytes/100 WB C Auto (Bld)Ordered By: Josh Bernie on 12-23-2024 Immature granulocytes/100 WBC (Bld) 0.500 % 0.0-0.9 [facility] Comment on above: IG% - Immature Granu locytes (promyelocytes, myelocytes and metamyelocytes) > 1% indicates that a LEFT SHIFT is Present. MCV (mean corpuscular volume ) determinationOrdered By: Josh Bernie on 12-23-2024 MCV (RBC) [Entitic vol] 74.6 fL Low 81-99 [facility] Mean corpuscular hemoglobin (MCH) determinationOrdered By: [place] Bernie on 12-23-2024 MCH (RBC) [Entitic mass] 23.6 pg Low 27.0-32.0 [facility] Mean corpuscular hemoglobin concentration (MCHC) determinationOrdered By: Josh Bernie on 12-23-2024 MCHC (RBC) [Mass/Vol] 31.7 g/dL Low 32-36 [facility] Mean platelet volume determi nationOrdered By: Josh Bernie on 12-23-2024 Platelet mean volume (Bld) [Entitic vol] 9.5 fL 6.2-12.0 [facility] Monocyte percentageOrdered B y: [place] Bernie on 12-23-2024 Monocytes/100 WBC (Bld) 10.4 % High 0-10 [facility] Neutrophil percentageOrdered By: Josh Bernie on 12-23-2024 Neutrophils/100 WBC (Bld) 46.5 % Low 47-70 [facility] No Panel InformationOrdered By: Massiel Gibbons on 12-23-2024 Absent . [facility] Negative Negative [facility] Comment . [facility] Nucleated red blood cell per centageOrdered By: [place] Bernie on 12-23-2024 Nucleated RBC/100 WBC (Bld) [Ratio] 0 % 0-5 [facility] Platelet countOrdered By: Cy ril Bernie on 12-23-2024 Platelets (Bld) [#/Vol] 279 10*3/uL 150-450 [facility] Potassium measurement (mass/ volume)Ordered By: Josh Bernie on 12-23-2024 Potassium (Unsp spec) [Mass/Vol] 4.2 mmol/L 3.3-5.1 [facility] ,Serum,hCG Quali.on 12-23-2024 HCG, SERUM QUAL Negative Normal [facility] Comment on above: Order Comment: For t ilt table test Performed By: #### L 503.0106, L100.0100 #### [facility] [address] [place], [address] RBC Auto (Bld) [#/Vol]Ordere d By: Josh Bernie on 12-23-2024 RBC (Bld) [#/Vol] 4.57 10*6/uL 4.2-5.4 [facility] Serum beta-hCG test, qualita tiveOrdered By: Josh Bernie on 12-23-2024 Beta HCG ( test) Ql Negative [facility] Serum creatinine measurement (mass/volume)Ordered By: Josh Gibbs on 12-23-2024 Creatinine [Mass/Vol] 0.90 mg/dL 0.70-1.20 [facility] Serum glucose measurement (m ass/volume)Ordered By: Josh Bernie on 12-23-2024 Glucose [Mass/Vol] 115 mg/dL High 70-99 [facility] Serum or plasma calcium thiago urement (mass/volume)Ordered By: Josh Bernie on 12-23-2024 Calcium [Mass/Vol] 9.7 mg/dL 7.6-11.0 [facility] Serum or plasma urea nitroge n measurement (mass/volume)Ordered By: Josh Bernie on 12-23-2024 Urea nitrogen [Mass/Vol] 21 mg/dL High 4-19 [facility] Sodium levelOrdered By: Jaswinder coker Bernie on 12-23-2024 Sodium [Moles/Vol] 141 mmol/L 133-145 [facility] White blood cell (WBC) count Ordered By: Josh Gibbs on 12-23-2024 WBC (Bld) [#/Vol] 6.7 10*3/uL 4.4-11.0 [facility] Absolute lymphocyte countOrd ered By: Massiel Gibbons on 12-12-2024 Lymphocytes Auto (Unsp spec) [#/Vol] 1.98 10*3/uL 0.83-4.51 [facility] Absolute neutrophil countOrd ered By: Massiel Gibbons on 12-12-2024 Neutrophils (Bld) [#/Vol] 3.3 10*3/uL 2.0-7.7 [facility] Automated lymphocyte count a s percentage of total leukocytesOrdered By: Massiel Gibbons on 12-12-2024 Lymphocytes/100 WBC Auto (Unsp spec) 32.3 % 19-41 [facility] Basophil percentageOrdered B y: Massielaleyda Gibbons on 12-12-2024 Basophils/100 WBC (Bld) 0.7 % 0-1 [facility] CBC W/Diff, Automatedon 11-25 Absolute Lymph 1.98 X10 3/uL Normal 0.83-4.51 [facility] Comment on above: Performed By: #### L 503.0106, L100.0100 #### [facility] [address] [place], [address] Absolute Neut 3.3 X10 3/uL Normal 2.0-7.7 [facility] Comment on above: Performed By: #### L 503.0106, L100.0100 #### [facility] [address] [place], [address] Basophils/100 WBC (Bld) 0.7 % Normal 0-1 [facility] Comment on above: Performed By: #### L 503.0106, L100.0100 #### [facility] [address] [place], [address] Eosinophils/100 WBC (Bld) 2.0 % Normal 0-5 [facility] Comment on above: Performed By: #### L 503.0106, L100.0100 #### [facility] [address] [place], [address] Erythrocyte distribution width (RBC) [Ratio] 14.8 % High 11.6-14.6 [facility] Comment on above: Performed By: #### L 503.0106, L100.0100 #### [facility] [address] [place], [address] Hematocrit (Bld) [Volume fraction] 34.5 % Low 37-47 [facility] Comment on above: Performed By: #### L 503.0106, L100.0100 #### [facility] [address] [place], [address] Hemoglobin (Bld) [Mass/Vol] 10.3 g/dL Low 12.0-15.0 [facility] Comment on above: Performed By: #### L 503.0106, L100.0100 #### [facility] [address] [place], [address] IG% 0.500 Normal 0.0-0.9 [facility] Comment on above: Result Comment: IG% - Immature Granulocytes (promyelocytes, myelocytes and metamyelocytes) > 1% indicates that a LEFT SHIFT is Present. Performed By: #### L 503.0106, L100.0100 #### [facility] [address] [place], [address] Lymphocytes/100 WBC (Bld) 32.3 % Normal 19-41 [facility] Comment on above: Performed By: #### L 503.0106, L100.0100 #### [facility] [address] [place], [address] MCH (RBC) [Entitic mass] 23.1 pg Low 27.0-32.0 [facility] Comment on above: Performed By: #### L 503.0106, L100.0100 #### [facility] [address] [place], [address] MCHC (RBC) [Mass/Vol] 29.9 g/dL Low 32-36 [facility] Comment on above: Performed By: #### L 503.0106, L100.0100 #### [facility] [address] [place], [address] MCV (RBC) [Entitic vol] 77.5 fL Low 81-99 [facility] Comment on above: Performed By: #### L 503.0106, L100.0100 #### [facility] [address] [place], [address] Monocytes/100 WBC (Bld) 11.3 % High 0-10 [facility] Comment on above: Performed By: #### L 503.0106, L100.0100 #### [facility] [address] [place], [address] Neutrophils/100 WBC (Bld) 53.2 % Normal 47-70 [facility] Comment on above: Performed By: #### L 503.0106, L100.0100 #### [facility] [address] [place], [address] Nucleated RBC (Bld) [#/Vol] 0 10*3/uL Normal 0-5 [facility] Comment on above: Performed By: #### L 503.0106, L100.0100 #### [facility] [address] [place], [address] Platelet mean volume (Bld) [Entitic vol] 9.1 fL Normal 6.2-12.0 [facility] Comment on above: Performed By: #### L 503.0106, L100.0100 #### [facility] [address] [place], [address] Platelets (Bld) [#/Vol] 290 10*3/uL Normal 150-450 [facility] Comment on above: Performed By: #### L 503.0106, L100.0100 #### [facility] [address] [place], [address] RBC (Bld) [#/Vol] 4.45 10*6/uL Normal 4.2-5.4 [facility] Comment on above: Performed By: #### L 503.0106, L100.0100 #### [facility] [address] [place], [address] RDW SD 41.4 fl Normal 35.1-43.9 [facility] Comment on above: Performed By: #### L 503.0106, L100.0100 #### [facility] [address] [place], [place], [address] WBC (Bld) [#/Vol] 6.1 10*3/uL Normal 4.4-11.0 [facility] Comment on above: Performed By: #### L 503.0106, L100.0100 #### [facility] [address] [place], [address] Endocrinology Visit Reporton 12-12-2024 Endocrinology Visit Report [facility] [address] [place], [place] [address] OFFICE VISIT Date of Service: 12/12/24 MR#: [id number] Acct: [id number] Name: ARLEN NGUYEN [place] Rep #: [id number] : 1970 Provider: ADELITA martin Age/Sex: 54/F Location: [facility] Status: Signed Intake Vital Signs 11/08/24 13:04 [...] at 6.7%. Weight relatively stable. Currently using TenKod 780g with Guardian CGM. Insulin pump downloaded and reviewed- Additionally she is taking metformin 1 gm BID with food and (more content not included)... Normal [facility] Eosinophil percentageOrdered By: Massiel Gibbons on 12-12-2024 Eosinophils/100 WBC (Bld) 2.0 % 0-5 [facility] Erythrocyte distribution wid th ratioOrdered By: Massiel Gibbons on 12-12-2024 Erythrocyte distribution width (RBC) [Ratio] 14.8 % High 11.6-14.6 [facility] Erythrocyte distribution wid th standard deviationOrdered By: Massiel Gibbons on 12-12-2024 Erythrocyte distribution width (RBC) [Ratio] 41.4 fl 35.1-43.9 [facility] Hematocrit Auto (Bld) [Volum e fraction]Ordered By: Massiel Gibbons on 12-12-2024 Hematocrit (Bld) [Volume fraction] 34.5 % Low 37-47 [facility] Hemoglobin measurementOrdere d By: Massiel Gibbons on 12-12-2024 Hemoglobin (Bld) [Mass/Vol] 10.3 g/dL Low 12.0-15.0 [facility] Immature granulocytes/100 WB C Auto (Bld)Ordered By: Massiel Gibbons on 12-12-2024 Immature granulocytes/100 WBC (Bld) 0.500 % 0.0-0.9 [facility] Comment on above: IG% - Immature Granu locytes (promyelocytes, myelocytes and metamyelocytes) > 1% indicates that a LEFT SHIFT is Present. Laboratory - Hematology and Cell countsOrdered By: Massiel Gibbons on 12-12-2024 HbA1c (Bld) [Mass fraction] 6.3 % 4.2-6.3 [facility] MCV (mean corpuscular volume ) determinationOrdered By: Massiel Gibbons on 12-12-2024 MCV (RBC) [Entitic vol] 77.5 fL Low 81-99 [facility] Mean corpuscular hemoglobin (MCH) determinationOrdered By: Massiel Gibbons on 12-12-2024 MCH (RBC) [Entitic mass] 23.1 pg Low 27.0-32.0 [facility] Mean corpuscular hemoglobin concentration (MCHC) determinationOrdered By: Massiel Gibbons on 12-12-2024 MCHC (RBC) [Mass/Vol] 29.9 g/dL Low 32-36 [facility] Mean platelet volume determi nationOrdered By: Massiel Gibbons on 12-12-2024 Platelet mean volume (Bld) [Entitic vol] 9.1 fL 6.2-12.0 [facility] Monocyte percentageOrdered B y: Massiel Gibbons on 12-12-2024 Monocytes/100 WBC (Bld) 11.3 % High 0-10 [facility] Neutrophil percentageOrdered By: Massiel Gibbons on 12-12-2024 Neutrophils/100 WBC (Bld) 53.2 % 47-70 [facility] No Panel InformationOrdered By: Massiel Gibbons on 12-12-2024 6.3 % 4.2-6.3 [facility] Nucleated red blood cell per centageOrdered By: Massiel Gibbons on 12-12-2024 Nucleated RBC/100 WBC (Bld) [Ratio] 0 % 0-5 [facility] Platelet countOrdered By: Me jim Gibbons on 12-12-2024 Platelets (Bld) [#/Vol] 290 10*3/uL 150-450 [facility] RBC Auto (Bld) [#/Vol]Ordere d By: Massiel Gibbons on 12-12-2024 RBC (Bld) [#/Vol] 4.45 10*6/uL 4.2-5.4 [facility] Retic Panelon 12-12-2024 IM RET FRACTION 40.20 High 3.00-15.90 [facility] Comment on above: Performed By: #### L 503.0106, L100.0100 #### [facility] [address] [place], [address] RET-HE 23.1 pg Low 30-35 [facility] Comment on above: Performed By: #### L 503.0106, L100.0100 #### [facility] [address] [place], [address] Retic Count 2.39 High 0.5-1.5 [facility] Comment on above: Performed By: #### L 503.0106, L100.0100 #### [facility] [address] [place], [address] Reticulocyte hemoglobin equi valent (RET-He) measurementOrdered By: Massiel Gibbons on 12-12-2024 Hemoglobin (Reticulocytes) [Entitic mass] 23.1 pg Low 30-35 [facility] Reticulocytes Auto (Bld) [#/ Vol]Ordered By: Massiel Gibbons on 12-12-2024 Reticulocytes/100 RBC (Bld) 2.39 % High 0.5-1.5 [facility] Vitamin B12on 12-12-2024 Cobalamin (Vitamin B12) [Mass/Vol] 390 pg/mL Normal 180-914 [facility] Comment on above: Performed By: #### L 503.0106, L100.0100 #### [facility] [address] [place], [address] Vitamin B12 ser/plasOrdered By: Massiel Gibbons on 12-12-2024 Cobalamin (Vitamin B12) [Mass/Vol] 390 pg/mL 180-914 [facility] White blood cell (WBC) count Ordered By: Massiel Gibbons on 12-12-2024 WBC (Bld) [#/Vol] 6.1 10*3/uL 4.4-11.0 [facility] Cardiovascular stress test r eportOrdered By: Josh Gibbs on 12-11-2024 Study report [facility] Cardiovascular Services [address] [place] [address] MR#: [id number] Acct: [id number] Name: ARLEN NGUYEN Rep #: [id number] : 1970 54 From: Josh Gibbs MD [...] ~ Date Dictated: 12/11/241750 Date Transcribed: 12/11/241750 Digital Content Manager: CO Signed [facility] Work Phone: Stress Reporton 12-11-2024 Stress Report [facility] Cardiovascular Services [address] [place] [address] MR#: [id number] Acct: [id number] Name: ARLEN NGUYEN Rep #: [id number] : 1970 54 From: Josh Gibbs MD [...] Date Dictated: 09/17/25 1751 Date Transcribed: 12/11/24 Digital Content Manager: CO Signed Normal [facility] Magnetic resonance imaging r eportOrdered By: Rusty Ramirez on 11-20-2024 Study report [facility] Imaging Services [address] [place] [address] Spine Cervical (Routine) MR#: [id number] Acct: [id number] Name: ARLEN NGUYEN Rep #: [id number] : 1970 F 54 From: Susanne Ramirez MD PCP: Dr. Phu Espinoza MD Status: REG C LI Study:Spine Cervical (Routine) Date of Exam: 11/18/24 Exam# [id number] Ordering Dr: Phu Espinoza MD PROCEDURE: SPINE [...] compression or abnormal cord signal Reading Location: [facility] CC: Dr. Phu Espinoza MD ~ Digital Content Manager: Signed [facility] Brain without Contraston Brain without Contrast [facility] Imaging Services [address] [place] [address] Brain without Contrast MR#: [id number] Acct: [id number] Name: ARLEN NGUYEN Rep #: [id number] : 1970 F 54 From: Jarvis Avendaño MD PCP: Dr. Phu Espinoza MD Status: REG CLI Study: Brain without Contrast Date of Exam: 11/18/24 Exam# [id number] Ordering Dr: Phu Espinoza MD PROCEDURE: MRI [...] likely related to mild leukoaraiosis. Reading Location: [facility] CC: Dr. Phu Espinoza MD Digital Content Manager: Signed Normal [facility] Magnetic resonance imaging r eportOrdered By: Jarvis Avendaño on 11-18-2024 Study report [facility] Imaging Services [address] [place], [place] [address] Brain without Contrast MR#: [id number] Acct: [id number] Name: ARLEN NGUYEN Rep #: [id number] : 1970 F 54 From: Guanakito Avendaño MD PCP: Dr. Phu Espinoza MD Status: LINDA MADRIGAL Study:Brain without Contrast Date of Exam: 11/18/24 Exam# [id number] Ordering Dr: Phu Espinoza MD PROCEDURE: MRI [...] likely related to mild leukoaraiosis. Reading Location: [id number] CC: Dr. Phu Espinoza MD ~ Digital Content Manager: Signed [facility] Spine Cervical (Routine)on 0 11-18-2024 Spine Cervical (Routine) [facility] Imaging Services [address] [place] [address] Spine Cervical (Routine) MR#: [id number] Acct: [id number] Name: ARLEN NGUYEN Rep #: [id number] : 1970 F 54 From: Rusty Ramirez MD PCP: Dr. Phu Espinoza MD Status: REG CLI Study: Spine Cervical (Routine) Date of Exam: Exam# [id number] Ordering Dr: Phu Espinoza MD PROCEDURE: SPINE [...] compression or abnormal cord signal Reading Location: [facility] CC: Dr. Phu Espinoza MD Digital Content Manager: Signed Normal [facility] Cardiology Visit Reporton Cardiology Visit Report [facility] [address] [place] [address] OFFICE VISIT Date of Service: 11/08/24 MR#: [id number] Acct: [id number] Name: ARLEN NGUYEN Rep #: [id number] : 1970 Provider: Dr. Josh Gibbs MD Age/Sex: 54/F Location: [facility] Status: Signed HPI HPI History of Present [...] room air Intake Visit Reasons: BRADYCARDIA (ALEXIS) Community Relations Officer Required: No Accompanied by: Self Is patient [...] mg PO QDAY 10/24/24 10/24/24 H istory [facility] Medical History Near syncope Bradycardia Diabetes Incisional [...] History o (more content not included)... Normal [facility] NCS and/or EMG Patienton NCS and/or EMG Patient [facility] Pulmonary Services/Neurology [address] [place] [address] MR#: [id number] Acct: [id number] Name: ARLEN NGUEYN Rep #: [id number] : 1970 54 From: Jona Vieira MD Referring Dr: Phu Espinoza MD Status: REG CLI Location: [facility] Date: 10/30/24 Sex: F C NCS [...] Multi Select Codes Neurology Neurology Interp Codes: 90669-42 Musc test done w/n test comp (interp) (2) and 88131-17 Nrv cndj test 11-12 studies (interp) 10/30/24 0939 Date Jona Vieira MD CC: Dr. Jona Vieira MD; Dr. Phu Espinoza MD Date Dictated: 10/30/24934 Date Transcribed: 10/30/24934 Digital Content Manager: ZEKE Signed Normal [facility] Surgery Visit Reporton 10-21 Surgery Visit Report [facility] [address] [place] [address] OFFICE VISIT Date of Service: 10/21/24 MR#: [id number] Acct: [id number] Name: ARLEN NGUYEN Rep #: [id number] : 1970 Provider: Dr. Jodi back MD Age/Sex: 54/F Location: [facility] Status: Signed Intake Vital Signs 10/05/24 21:47 10/21/24 08:40 Height 5 ft 7 in 5 ft 7 in Weight: 287 lb BMI 44.9 BP 128/80 H Blood Pressure Location Rt radial Position Sitting Respiration 16 Pulse 70 Pulse Oximetry (%) 98 Oxygen Delivery Method room air Intake Visit Reasons: ANEMIA/BLOOD IN STOOL Chief Complaint: anemia/blood in stool Community Relations Officer Required: No Is patient in pain?: No [...] echo an (more content not included)... Normal [facility] Folates, RBCon 10-18-2024 Fol.,Hemolysate 581.0 ng/mL Normal Not Estab. [facility] Comment on above: Performed By: #### L 500.2500 #### [facility] [address] [place], [place], [phone] (645) Folate, RBC 1505 ng/mL Normal >498 [facility] Comment on above: Result Comment: Perf ormed at: [facility] [address] [id number] Pulverizing And Sifting Operator: Spencer Carbajal PhD, Phone: [phone] Performed By: #### L 500.2500 #### [facility] [address] [place], [address] Hematocrit (Bld) [Volume fraction] 38.6 % Normal 34.0-46.6 [facility] Comment on above: Performed By: #### L 500.2500 #### [facility] [address] [place], [address] Quantiferon TB-Gold+on 10-18 QFT MITOGEN KATHRYN > 10.00 Normal . [facility] Comment on above: Performed By: #### L 500.2500 #### [facility] [address] [place], [address] QFT NIL VALUE 0.05 IU/mL Normal . [facility] Comment on above: Performed By: #### L 500.2500 #### [facility] [address] [place], [place], [address] QFT TB GOLD+ Comment Normal . [facility] Comment on above: Result Comment: Jim [...] test. Performed By: #### L 500.2500 #### [facility] [address] [place], [place], [address] QFT TB POS CRIT Negative Normal Negative [facility] Comment on above: Result Comment: No [...] methodology Performed By: #### L 500.2500 #### [facility] [address] [place], [place], [address] QFT TB1+ AG KATHRYN 0.05 IU/mL Normal . [facility] Comment on above: Performed By: #### L 500.2500 #### [facility] [address] [place], [place], [address] QFT TB2+ AG KATHRYN 0.06 IU/mL Normal . [facility] Comment on above: Performed By: #### L 500.2500 #### [facility] [address] [place], [place], [address] Absolute lymphocyte countOrd ered By: Phu Espinoza on 10-16-2024 Lymphocytes Auto (Unsp spec) [#/Vol] 3.06 10*3/uL 0.83-4.51 [facility] Absolute neutrophil countOrd ered By: Phu Espinoza on 10-16-2024 Neutrophils (Bld) [#/Vol] 4.4 10*3/uL 2.0-7.7 [facility] Anion gap in Serum or Plasma Ordered By: Phu Espinoza on 10-16-2024 Anion gap [Moles/Vol] 16 mmol/L High 5-15 [facility] Automated blood erythrocyte countOrdered By: Phu Espinoza on 10-16-2024 RBC (Bld) [#/Vol] 4.63 10*6/uL Normal 4.2-5.4 [facility] Comment on above: Performed By: #### L 503.0106, L100.0100 #### [facility] [address] [place], [address] Automated blood hematocrit ( percentage)Ordered By: Phu Espinoza on 10-16-2024 Hematocrit (Bld) [Volume fraction] 35.6 % Low 37-47 [facility] Comment on above: Performed By: #### L 503.0106, L100.0100 #### [facility] [address] [place], [address] Automated lymphocyte count a s percentage of total leukocytesOrdered By: Phu Espinoza on 10-16-2024 Lymphocytes/100 WBC Auto (Unsp spec) 35.6 % 19-41 [facility] BUN/creatinine ratioOrdered By: Phu Espinoza on 10-16-2024 Urea nitrogen/Creatinine [Mass ratio] 23.2 mg/mg High 10-20 [facility] Basophil percentageOrdered B y: Phu Espinoza on 10-16-2024 Basophils/100 WBC (Bld) 0.7 % Normal 0-1 [facility] Comment on above: Performed By: #### L 503.0106, L100.0100 #### [facility] [address] [place], [address] Bilirubin, totalOrdered By: Phu Espnioza on 10-16-2024 Bilirubin [Mass/Vol] 0.25 mg/dL 0.00-1.30 [facility] CBC W/Diff, Automatedon 09-25 Absolute Lymph 3.06 X10 3/uL Normal 0.83-4.51 [facility] Comment on above: Performed By: #### L 503.0106, L100.0100 #### [facility] [address] [place], [address] Absolute Neut 4.4 X10 3/uL Normal 2.0-7.7 [facility] Comment on above: Performed By: #### L 503.0106, L100.0100 #### [facility] [address] [place], [address] IG% 0.200 Normal 0.0-0.9 [facility] Comment on above: Result Comment: IG% - Immature Granulocytes (promyelocytes, myelocytes and metamyelocytes) > 1% indicates that a LEFT SHIFT is Present. Performed By: #### L 503.0106, L100.0100 #### [facility] [address] [place], [address] Lymphocytes/100 WBC (Bld) 35.6 % Normal 19-41 [facility] Comment on above: Performed By: #### L 503.0106, L100.0100 #### [facility] [address] [place], [address] Nucleated RBC (Bld) [#/Vol] 0 10*3/uL Normal 0-5 [facility] Comment on above: Performed By: #### L 503.0106, L100.0100 #### [facility] [address] [place], [address] RDW SD 44.2 fl High 35.1-43.9 [facility] Comment on above: Performed By: #### L 503.0106, L100.0100 #### [facility] [address] [place], [address] CRPon 10-16-2024 C-REACTIVE PROT < 3.00 Normal 0.0-3.0 [facility] Comment on above: Performed By: #### L 503.0106, L100.0100 #### [facility] [address] [place], [address] Carbon dioxide, total [Moles /volume] in Central venous bloodOrdered By: Phu Espinoza on 10-16-2024 CO2 [Moles/Vol] 21.1 mmol/L 21.0-32.0 [facility] Chloride assayOrdered By: Sloan Espinoza on 10-16-2024 Chloride [Moles/Vol] 104 mmol/L 98-108 [facility] Comprehensive Metabolic Prof ilon 10-16-2024 Albumin [Mass/Vol] 4.4 g/dL Normal 3.5-5.0 [facility] Comment on above: Performed By: #### L 503.0106, L100.0100 #### [facility] [address] [place], [address] Albumin/Globulin [Mass ratio] 1.3 {ratio} Normal 0.9-2.4 [facility] Comment on above: Performed By: #### L 503.0106, L100.0100 #### [facility] [address] [place], [address] ALK PHOS 51 U/L Normal 35-104 [facility] Comment on above: Performed By: #### L 503.0106, L100.0100 #### [facility] [address] [place], [address] ALT [Catalytic activity/Vol] 82 U/L High <=34 [facility] Comment on above: Performed By: #### L 503.0106, L100.0100 #### [facility] [address] [place], [address] AST [Catalytic activity/Vol] 67 U/L High <=31 [facility] Comment on above: Performed By: #### L 503.0106, L100.0100 #### [facility] [address] [place], [address] Bilirubin [Mass/Vol] 0.25 mg/dL Normal 0.00-1.30 [facility] Comment on above: Performed By: #### L 503.0106, L100.0100 #### [facility] [address] [place], [address] BUN/CRE 23.2 RATIO High 10-20 [facility] Comment on above: Performed By: #### L 503.0106, L100.0100 #### [facility] [address] [place], [address] Calcium [Mass/Vol] 10.1 mg/dL Normal 7.6-11.0 [facility] Comment on above: Performed By: #### L 503.0106, L100.0100 #### [facility] [address] [place], [address] Chloride [Moles/Vol] 104 mmol/L Normal 98-108 [facility] Comment on above: Performed By: #### L 503.0106, L100.0100 #### [facility] [address] [place], [address] CO2 [Moles/Vol] 21.1 mmol/L Normal 21.0-32.0 [facility] Comment on above: Performed By: #### L 503.0106, L100.0100 #### [facility] [address] [place], [address] Creatinine [Mass/Vol] 1.51 mg/dL High 0.70-1.20 [facility] Comment on above: Performed By: #### L 503.0106, L100.0100 #### [facility] [address] [place], [address] GAP 16 High 5-15 [facility] Comment on above: Performed By: #### L 503.0106, L100.0100 #### [facility] [address] [place], [address] GFR/1.73 sq M.predicted among non-blacks MDRD (S/P/Bld) [Vol rate/Area] 41 mL/min/{1.73_m2} Low >60 [facility] Comment on above: Result Comment: mL/m in/1.73m2 CKD-EPI Creatinine Equation (2020) Performed By: #### L 503.0106, L100.0100 #### [facility] [address] [place], [address] Globulin (S) [Mass/Vol] 3.3 g/dL Normal 2.2-4.2 [facility] Comment on above: Performed By: #### L 503.0106, L100.0100 #### [facility] [address] [place], [address] Glucose [Mass/Vol] 84 mg/dL Normal 70-99 [facility] Comment on above: Performed By: #### L 503.0106, L100.0100 #### [facility] [address] [place], [address] Potassium [Moles/Vol] 4.2 mmol/L Normal 3.3-5.1 [facility] Comment on above: Performed By: #### L 503.0106, L100.0100 #### [facility] [address] [place], [address] Sodium [Moles/Vol] 141 mmol/L Normal 133-145 [facility] Comment on above: Performed By: #### L 503.0106, L100.0100 #### [facility] [address] [place], [address] T PROT 7.6 g/dL Normal 5.9-8.4 [facility] Comment on above: Performed By: #### L 503.0106, L100.0100 #### [facility] [address] [place], [address] Urea nitrogen [Mass/Vol] 35 mg/dL High 4-19 [facility] Comment on above: Performed By: #### L 503.0106, L100.0100 #### [facility] [address] [place], [address] Eosinophil percentageOrdered By: Phu Espinoza on 10-16-2024 Eosinophils/100 WBC (Bld) 1.5 % Normal 0-5 [facility] Comment on above: Performed By: #### L 503.0106, L100.0100 #### [facility] [address] [place], [address] Erythrocyte Sed Rateon 10-16 SED RATE 26 mm/hr Normal 0-30 [facility] Comment on above: Performed By: #### L 503.0106, L100.0100 #### [facility] [address] [place], [address] Erythrocyte distribution wid th ratioOrdered By: Phu Espinoza on 10-16-2024 Erythrocyte distribution width (RBC) [Ratio] 16.0 % High 11.6-14.6 [facility] Comment on above: Performed By: #### L 503.0106, L100.0100 #### [facility] [address] [place], [address] Erythrocyte distribution wid th standard deviationOrdered By: Phu Espinoza on 10-16-2024 Erythrocyte distribution width (RBC) [Ratio] 44.2 fl High 35.1-43.9 [facility] Erythrocyte sedimentation ra teOrdered By: Phu Espinoza on 10-16-2024 ESR (Bld) [Velocity] 26 mm/h 0-30 [facility] Glomerular filtration rate ( GFR) estimation/1.73 sq m using serum, plasma, or whole bOrdered By: Phu Espinoza on 10-16-2024 GFR/1.73 sq M.predicted among non-blacks MDRD (S/P/Bld) [Vol rate/Area] 41 mL/min/{1.73_m2} Low >60 [facility] Comment on above: mL/min/1.73m2 CKD-EP I Creatinine Equation (2020) Hemoglobin measurementOrdere d By: Phu Espinoza on 10-16-2024 Hemoglobin (Bld) [Mass/Vol] 11.2 g/dL Low 12.0-15.0 [facility] Comment on above: Performed By: #### L 503.0106, L100.0100 #### [facility] [address] [place], [address] Immature granulocytes/100 WB C Auto (Bld)Ordered By: Phu Alexis on 10-16-2024 Immature granulocytes/100 WBC (Bld) 0.200 % 0.0-0.9 [facility] Comment on above: IG% - Immature Granu locytes (promyelocytes, myelocytes and metamyelocytes) > 1% indicates that a LEFT SHIFT is Present. Laboratory - Chemistry and C hemistry - challengeOrdered By: Phu Alexis on 10-16-2024 AST [Catalytic activity/Vol] 67 U/L High <32 [facility] MCV (mean corpuscular volume ) determinationOrdered By: Phu Alexis on 10-16-2024 MCV (RBC) [Entitic vol] 76.9 fL Low 81-99 [facility] Comment on above: Performed By: #### L 503.0106, L100.0100 #### [facility] [address] [place], [address] Mean corpuscular hemoglobin (MCH) determinationOrdered By: Phu Espinoza on 10-16-2024 MCH (RBC) [Entitic mass] 24.2 pg Low 27.0-32.0 [facility] Comment on above: Performed By: #### L 503.0106, L100.0100 #### [facility] [address] [place], [address] Mean corpuscular hemoglobin concentration (MCHC) determinationOrdered By: Phu Espinoza on 10-16-2024 MCHC (RBC) [Mass/Vol] 31.5 g/dL Low 32-36 [facility] Comment on above: Performed By: #### L 503.0106, L100.0100 #### [facility] [address] [place], [address] Mean platelet volume determi nationOrdered By: Phu Espinoza on 10-16-2024 Platelet mean volume (Bld) [Entitic vol] 11.0 fL Normal 6.2-12.0 [facility] Comment on above: Performed By: #### L 503.0106, L100.0100 #### [facility] [address] [place], [place], [address] Monocyte percentageOrdered B y: Phu Espinoza on 10-16-2024 Monocytes/100 WBC (Bld) 10.6 % High 0-10 [facility] Comment on above: Performed By: #### L 503.0106, L100.0100 #### [facility] [address] [place], [address] Neutrophil percentageOrdered By: Phu Alexis on 10-16-2024 Neutrophils/100 WBC (Bld) 51.4 % Normal 47-70 [facility] Comment on above: Performed By: #### L 503.0106, L100.0100 #### [facility] [address] [place], [place], [address] No Panel InformationOrdered By: Phu Espinoza on 10-16-2024 67 U/L High <32 [facility] Nucleated red blood cell per centageOrdered By: Phu Espinoza on 10-16-2024 Nucleated RBC/100 WBC (Bld) [Ratio] 0 % 0-5 [facility] Platelet countOrdered By: Sloan Espinoza on 10-16-2024 Platelets (Bld) [#/Vol] 311 10*3/uL Normal 150-450 [facility] Comment on above: Performed By: #### L 503.0106, L100.0100 #### [facility] [address] [place], [place], [address] Potassium measurement (mass/ volume)Ordered By: Phu Espinoza on 10-16-2024 Potassium (Unsp spec) [Mass/Vol] 4.2 mmol/L 3.3-5.1 [facility] Serum creatinine measurement (mass/volume)Ordered By: Phu Espinoza on 10-16-2024 Creatinine [Mass/Vol] 1.51 mg/dL High 0.70-1.20 [facility] Serum globulin measurementOr dered By: Phu Espinoza on 10-16-2024 Globulin (S) [Mass/Vol] 3.3 g/dL 2.2-4.2 [facility] Serum glucose measurement (m ass/volume)Ordered By: Phu Espinoza on 10-16-2024 Glucose [Mass/Vol] 84 mg/dL 70-99 [facility] Serum or plasma C reactive p rotein measurement (mass/volume)Ordered By: Phu Espinoza 10-16-2024 CRP [Mass/Vol] mg/L 0.0-3.0 [facility] Serum or plasma alanine tobar otransferase (ALT) measurementOrdered By: Phu Espinoza 10-16-2024 ALT [Catalytic activity/Vol] 82 U/L High <35 [facility] Serum or plasma albumin thiago urement (mass/volume)Ordered By: Phu Espinoza 10-16-2024 Albumin [Mass/Vol] 4.4 g/dL 3.5-5.0 [facility] Serum or plasma albumin/glob ulin mass ratioOrdered By: Phu Espinoza 10-16-2024 Albumin/Globulin [Mass ratio] 1.3 {ratio} 0.9-2.4 [facility] Serum or plasma alkaline meg sphatase measurementOrdered By: Phu Espinoza 10-16-2024 ALP [Catalytic activity/Vol] 51 U/L 35-104 [facility] Serum or plasma calcium thiago urement (mass/volume)Ordered By: Phu Espinoza 10-16-2024 Calcium [Mass/Vol] 10.1 mg/dL 7.6-11.0 [facility] Serum or plasma urea nitroge n measurement (mass/volume)Ordered By: Phu Espinoza 10-16-2024 Urea nitrogen [Mass/Vol] 35 mg/dL High 4-19 [facility] Sodium levelOrdered By: Phu Espinoza 10-16-2024 Sodium [Moles/Vol] 141 mmol/L 133-145 [facility] Total proteinOrdered By: Phu Espinoza 10-16-2024 Protein [Mass/Vol] 7.6 g/dL 5.9-8.4 [facility] White blood cell (WBC) count Ordered By: Phu Espinoza 10-16-2024 WBC (Bld) [#/Vol] 8.6 10*3/uL Normal 4.4-11.0 [facility] Comment on above: Performed By: #### L 503.0106, L100.0100 #### [facility] [address] [place], [place], [address] Culture, Blood (WB)on 2024 CUB No growth in 5 days. Normal [facility] Comment on above: Performed By: #### L 500.2500 #### [facility] [address] [place], [place], [address] CRP, High Sensitivity [id number] on 10-12-2024 CRP, HIGH SENS 0.43 mg/L Normal 0.00-3.00 [facility] Comment on above: Result Comment: Rela tive Risk for Future Cardiovascular Event Low <1.00 Average 1.00 - 3.00 High >3.00 Performed at: [address] [id number] Pulverizing And Sifting Operator: Spencer Carbajal PhD, Phone: [phone] Performed By: #### L 500.2500 #### [facility] [address] [place], [place], [address] Urine Cultureon 10-12-2024 [facility] Enterococcus faecalis [place] Count >100,000 Enterococcus faecalis: REACTION Ampicillin Islt MARTHA <=2 Ciprofloxacin Islt MARTHA <=0.5 S Gentamicin Synergy Susc Islt SYN-S S levoFLOXacin Islt MARTHA 0.5 S Linezolid Islt MARTHA 2 S Nitrofurantoin Islt MARTHA <=16 S Streptomycin High Pot Susc Islt SYN-S S Tetracycline Islt MARTHA >=16 R Vancomycin Islt MARTHA 1 S Normal [facility] Comment on above: Performed By: #### L 500.2500 #### [facility] [address] [place], [place], [address] Stool Occult Blood iFOBon STOB Positive Normal [facility] Comment on above: Performed By: #### M 100.7900 ####[facility] [address] [place], [address] Stool gastrointestinal hemog lobin detection by immunologic methodOrdered By: Phu Espinoza on 10-11-2024 Lower GI hemoglobin IA Ql (Stl) Positive Abnormal [facility] Absolute lymphocyte countOrd ered By: Phu Espinoza on 10-10-2024 Lymphocytes Auto (Unsp spec) [#/Vol] 2.92 10*3/uL 0.83-4.51 [facility] Absolute neutrophil countOrd ered By: Phu Snowok on 10-10-2024 Neutrophils (Bld) [#/Vol] 5.7 10*3/uL 2.0-7.7 [facility] Anion gap in Serum or Plasma Ordered By: Phu Espinoza on 10-10-2024 Anion gap [Moles/Vol] 17 mmol/L High 5-15 [facility] Automated lymphocyte count a s percentage of total leukocytesOrdered By: Phu Espinoza on 10-10-2024 Lymphocytes/100 WBC Auto (Unsp spec) 30.4 % 19-41 [facility] BUN/creatinine ratioOrdered By: Phu Espinoza on 10-10-2024 Urea nitrogen/Creatinine [Mass ratio] 20.1 mg/mg High 10-20 [facility] Basophil percentageOrdered B y: Phu Alexis on 10-10-2024 Basophils/100 WBC (Bld) 0.7 % 0-1 [facility] Bilirubin Test strip Ql (U)O rdered By: Phu Espinoza on 10-10-2024 Bilirubin Ql (U) 3 mg/dL High Negative [facility] Comment on above: COLOR OF URINE MAY A FFECT DIPSTICK RESULTS. Bilirubin, totalOrdered By: Phu Alexis on 10-10-2024 Bilirubin [Mass/Vol] 0.32 mg/dL 0.00-1.30 [facility] Blood cultureOrdered By: Phu Espinoza 10-10-2024 Bacteria identified Cx Nom (Bld) No growth in 5 days. [facility] C-reactive protein measureme nt by high sensitivity methodOrdered By: Phu Espinoza on 10-10-2024 C-reactive protein measurement by high sensitivity method 0.43 mg/L 0.00-3.00 [facility] Comment on above: Relative Risk for Fu ture Cardiovascular Event Low <1.00 Average 1.00 - 3.00 High >3.00Performed at: CB - [facility] [address] [id number] Director: Spencer Carbajal PhD, Phone: [phone] CBC W/Diff, Automatedon 09-24 Absolute Lymph 2.92 X10 3/uL Normal 0.83-4.51 [facility] Comment on above: Performed By: #### L 503.0106, L100.0100 #### [facility] [address] [place], [address] Absolute Neut 5.7 X10 3/uL Normal 2.0-7.7 [facility] Comment on above: Performed By: #### L 503.0106, L100.0100 #### [facility] [address] [place], [address] Basophils/100 WBC (Bld) 0.7 % Normal 0-1 [facility] Comment on above: Performed By: #### L 503.0106, L100.0100 #### [facility] [address] [place], [address] Eosinophils/100 WBC (Bld) 1.5 % Normal 0-5 [facility] Comment on above: Performed By: #### L 503.0106, L100.0100 #### [facility] [address] [place], [address] Erythrocyte distribution width (RBC) [Ratio] 15.6 % High 11.6-14.6 [facility] Comment on above: Performed By: #### L 503.0106, L100.0100 #### [facility] [address] [place], [address] Hematocrit (Bld) [Volume fraction] 35.9 % Low 37-47 [facility] Comment on above: Performed By: #### L 503.0106, L100.0100 #### [facility] [address] [place], [address] Hemoglobin (Bld) [Mass/Vol] 11.4 g/dL Low 12.0-15.0 [facility] Comment on above: Performed By: #### L 503.0106, L100.0100 #### [facility] [address] [place], [address] IG% 0.300 Normal 0.0-0.9 [facility] Comment on above: Result Comment: IG% - Immature Granulocytes (promyelocytes, myelocytes and metamyelocytes) > 1% indicates that a LEFT SHIFT is Present. Performed By: #### L 503.0106, L100.0100 #### [facility] [address] [place], [address] Lymphocytes/100 WBC (Bld) 30.4 % Normal 19-41 [facility] Comment on above: Performed By: #### L 503.0106, L100.0100 #### [facility] [address] [place], [address] MCH (RBC) [Entitic mass] 24.1 pg Low 27.0-32.0 [facility] Comment on above: Performed By: #### L 503.0106, L100.0100 #### [facility] [address] [place], [address] MCHC (RBC) [Mass/Vol] 31.8 g/dL Low 32-36 [facility] Comment on above: Performed By: #### L 503.0106, L100.0100 #### [facility] [address] [place], [address] MCV (RBC) [Entitic vol] 75.9 fL Low 81-99 [facility] Comment on above: Performed By: #### L 503.0106, L100.0100 #### [facility] [address] [place], [address] Monocytes/100 WBC (Bld) 7.9 % Normal 0-10 [facility] Comment on above: Performed By: #### L 503.0106, L100.0100 #### [facility] [address] [place], [address] Neutrophils/100 WBC (Bld) 59.2 % Normal 47-70 [facility] Comment on above: Performed By: #### L 503.0106, L100.0100 #### [facility] [address] [place], [address] Nucleated RBC (Bld) [#/Vol] 0 10*3/uL Normal 0-5 [facility] Comment on above: Performed By: #### L 503.0106, L100.0100 #### [facility] [address] [place], [address] Platelet mean volume (Bld) [Entitic vol] 10.4 fL Normal 6.2-12.0 [facility] Comment on above: Performed By: #### L 503.0106, L100.0100 #### [facility] [address] [place], [address] Platelets (Bld) [#/Vol] 277 10*3/uL Normal 150-450 [facility] Comment on above: Performed By: #### L 503.0106, L100.0100 #### [facility] [address] [place], [address] RBC (Bld) [#/Vol] 4.73 10*6/uL Normal 4.2-5.4 [facility] Comment on above: Performed By: #### L 503.0106, L100.0100 #### [facility] [address] [place], [address] RDW SD 42.1 fl Normal 35.1-43.9 [facility] Comment on above: Performed By: #### L 503.0106, L100.0100 #### [facility] [address] [place], [address] WBC (Bld) [#/Vol] 9.6 10*3/uL Normal 4.4-11.0 [facility] Comment on above: Performed By: #### L 503.0106, L100.0100 #### [facility] [address] [place], [address] Carbon dioxide, total [Moles /volume] in Central venous bloodOrdered By: Phu Espinoza on 10-10-2024 CO2 [Moles/Vol] 19.0 mmol/L Low 21.0-32.0 [facility] Chloride assayOrdered By: Sloan Espinoza on 10-10-2024 Chloride [Moles/Vol] 103 mmol/L 98-108 [facility] Comprehensive Metabolic Prof ilon 10-10-2024 Albumin [Mass/Vol] 4.5 g/dL Normal 3.5-5.0 [facility] Comment on above: Performed By: #### L 503.0106, L100.0100 #### [facility] [address] [place], [address] Albumin/Globulin [Mass ratio] 1.4 {ratio} Normal 0.9-2.4 [facility] Comment on above: Performed By: #### L 503.0106, L100.0100 #### [facility] [address] [place], [address] ALK PHOS 53 U/L Normal 35-104 [facility] Comment on above: Performed By: #### L 503.0106, L100.0100 #### [facility] [address] [place], [address] ALT [Catalytic activity/Vol] 52 U/L High <=34 [facility] Comment on above: Performed By: #### L 503.0106, L100.0100 #### [facility] [address] [place], [address] AST [Catalytic activity/Vol] 43 U/L High <=31 [facility] Comment on above: Performed By: #### L 503.0106, L100.0100 #### [facility] [address] [place], [address] Bilirubin [Mass/Vol] 0.32 mg/dL Normal 0.00-1.30 [facility] Comment on above: Performed By: #### L 503.0106, L100.0100 #### [facility] [address] [place], [address] BUN/CRE 20.1 RATIO High 10-20 [facility] Comment on above: Performed By: #### L 503.0106, L100.0100 #### [facility] [address] [place], [address] Calcium [Mass/Vol] 9.9 mg/dL Normal 7.6-11.0 [facility] Comment on above: Performed By: #### L 503.0106, L100.0100 #### [facility] [address] [place], [address] Chloride [Moles/Vol] 103 mmol/L Normal 98-108 [facility] Comment on above: Performed By: #### L 503.0106, L100.0100 #### [facility] [address] [place], [address] CO2 [Moles/Vol] 19.0 mmol/L Low 21.0-32.0 [facility] Comment on above: Performed By: #### L 503.0106, L100.0100 #### [facility] [address] [place], [address] Creatinine [Mass/Vol] 1.25 mg/dL High 0.70-1.20 [facility] Comment on above: Performed By: #### L 503.0106, L100.0100 #### [facility] [address] [place], [address] GAP 17 High 5-15 [facility] Comment on above: Performed By: #### L 503.0106, L100.0100 #### [facility] [address] [place], [address] GFR/1.73 sq M.predicted among non-blacks MDRD (S/P/Bld) [Vol rate/Area] 51 mL/min/{1.73_m2} Low >60 [facility] Comment on above: Result Comment: mL/m in/1.73m2 CKD-EPI Creatinine Equation (2020) Performed By: #### L 503.0106, L100.0100 #### [facility] [address] [place], [address] Globulin (S) [Mass/Vol] 3.3 g/dL Normal 2.2-4.2 [facility] Comment on above: Performed By: #### L 503.0106, L100.0100 #### [facility] [address] [place], [address] Glucose [Mass/Vol] 99 mg/dL Normal 70-99 [facility] Comment on above: Performed By: #### L 503.0106, L100.0100 #### [facility] [address] [place], [address] Potassium [Moles/Vol] 4.3 mmol/L Normal 3.3-5.1 [facility] Comment on above: Performed By: #### L 503.0106, L100.0100 #### [facility] [address] [place], [address] Sodium [Moles/Vol] 139 mmol/L Normal 133-145 [facility] Comment on above: Performed By: #### L 503.0106, L100.0100 #### [facility] [address] [place], [place], [id number] T PROT 7.7 g/dL Normal 5.9-8.4 [facility] Comment on above: Performed By: #### L 503.0106, L100.0100 #### [facility] [address] [place], [address] Urea nitrogen [Mass/Vol] 25 mg/dL High 4-19 [facility] Comment on above: Performed By: #### L 503.0106, L100.0100 #### [facility] [address] [place], [place], [address] Eosinophil percentageOrdered By: Phu Espinoza on 10-10-2024 Eosinophils/100 WBC (Bld) 1.5 % 0-5 [facility] Erythrocyte Sed Rateon 10-10 SED RATE 28 mm/hr Normal 0-30 [facility] Comment on above: Performed By: #### L 500.2500 #### [facility] [address] [place], [place], [address] Erythrocyte distribution wid th ratioOrdered By: Phu Snowok on 10-10-2024 Erythrocyte distribution width (RBC) [Ratio] 15.6 % High 11.6-14.6 [facility] Erythrocyte distribution wid th standard deviationOrdered By: Phu Snowok on 10-10-2024 Erythrocyte distribution width (RBC) [Ratio] 42.1 fl 35.1-43.9 [facility] Erythrocyte folate measureme nt with hematocritOrdered By: Phu Snowok on 10-10-2024 Hematocrit (Bld) [Volume fraction] 38.6 % 34.0-46.6 [facility] Erythrocyte sedimentation ra teOrdered By: Phu Espinoza on 10-10-2024 ESR (Bld) [Velocity] 28 mm/h 0-30 [facility] Ferritinon 10-10-2024 Ferritin [Mass/Vol] 23 ng/mL Normal 22-378 [facility] Comment on above: Performed By: #### L 503.0106, L100.0100 #### [facility] [address] [facility] [place], [place], [address] Glomerular filtration rate ( GFR) estimation/1.73 sq m using serum, plasma, or whole bOrdered By: Phu Espinoza on 10-10-2024 GFR/1.73 sq M.predicted among non-blacks MDRD (S/P/Bld) [Vol rate/Area] 51 mL/min/{1.73_m2} Low >60 [facility] Comment on above: mL/min/1.73m2 CKD-EP I Creatinine Equation (2020) HIVon 10-10-2024 HIV Non-Reactive Normal Nonreactive [facility] Comment on above: Result Comment: Non- Reactive Reactive Repeatedly reactive samples must be confirmed according to CDC recommended confirmatory algorithms. The subresults for either HIVAG or AHIV can be used as an aid in the selection of the confirmation algorithm for reactive samples. Send out specimens with Reactive results to [facility] for confirmation. Order the HIV antibody detection and differentiation: lc#[id number] Performed By: #### L 503.0106, L100.0100 #### [facility] [address] [facility] [place], [place], [address] Hematocrit Auto (Bld) [Volum e fraction]Ordered By: Phu Espinoza on 10-10-2024 Hematocrit (Bld) [Volume fraction] 35.9 % Low 37-47 [facility] Hemoglobin measurementOrdere d By: Phu Espinoza on 10-10-2024 Hemoglobin (Bld) [Mass/Vol] 11.4 g/dL Low 12.0-15.0 [facility] Hyaline casts LM.LPF (Urine sed) [#/Area]Ordered By: Phu Espinoza on 10-10-2024 Hyaline casts (Urine sed) [#/Area] 5 /[LPF] 0-5 [facility] Immature granulocytes/100 WB C Auto (Bld)Ordered By: Phu Espinoza on 10-10-2024 Immature granulocytes/100 WBC (Bld) 0.300 % 0.0-0.9 [facility] Comment on above: IG% - Immature Granu locytes (promyelocytes, myelocytes and metamyelocytes) > 1% indicates that a LEFT SHIFT is Present. Iron measurement (mass/mass) Ordered By: Phu Espinoza on 10-10-2024 Iron (Unsp spec) [Mass/Mass] 29 ug/dL Low 50-170 [facility] Iron+Iron Binding Capacityon 10-10-2024 TIBC 462 ug/dL High 250-450 [facility] Comment on above: Performed By: #### L 503.0106, L100.0100 #### [facility] [address] [place], [address] Ketones Test strip Ql (U)Ord ered By: Phu Espinoza on 10-10-2024 Ketones Ql (U) 5 mg/dl High Negative [facility] - Chemistry and C hemistry - challengeOrdered By: Phu Espinoza on 10-10-2024 AST [Catalytic activity/Vol] 43 U/L High <32 [facility] MCV (mean corpuscular volume ) determinationOrdered By: Phu Espinoza on 10-10-2024 MCV (RBC) [Entitic vol] 75.9 fL Low 81-99 [facility] Mean corpuscular hemoglobin (MCH) determinationOrdered By: Phu Espinoza on 10-10-2024 MCH (RBC) [Entitic mass] 24.1 pg Low 27.0-32.0 [facility] Mean corpuscular hemoglobin concentration (MCHC) determinationOrdered By: Phu Espinoza 10-10-2024 MCHC (RBC) [Mass/Vol] 31.8 g/dL Low 32-36 [facility] Mean platelet volume determi nationOrdered By: Phu Espinoza on 10-10-2024 Platelet mean volume (Bld) [Entitic vol] 10.4 fL 6.2-12.0 [facility] Microscopic analysis of urin e for red blood cells (RBC)Ordered By: Phu Espinoza on 10-10-2024 Microscopic analysis of urine for red blood cells (RBC) 0-5 SEEN /hpf 0-5 [facility] Monocyte percentageOrdered B y: Phu Espinoza on 10-10-2024 Monocytes/100 WBC (Bld) 7.9 % 0-10 [facility] Mucus LM Ql (Urine sed)Order ed By: Phu Espinoza on 10-10-2024 Mucus Ql (Urine sed) 0 SEEN /hpf [facility] Neutrophil percentageOrdered By: Phu Espinoza on 10-10-2024 Neutrophils/100 WBC (Bld) 59.2 % 47-70 [facility] Nitrite Test strip Ql (U)Ord ered By: Phu Espinoza on 10-10-2024 Nitrite Ql (U) Negative Negative [facility] No Panel InformationOrdered By: Phu Espinoza on 10-10-2024 HIV (1&2) Antibody Non-Reactive Nonreactive [facility] Comment on above: Non-ReactiveReactive Repeatedly reactive samples must be confirmed according to CDC recommended confirmatory algorithms. The subresults for either HIVAG or AHIV can be used as an aid in the selection of the confirmation algorithm for reactive samples.Send out specimens with Reactive results to [facility] for confirmation.Order the HIV antibody detection and differentiation: #[id number] Unsaturated Iron Binding Capacity 433 ug/dL High 228-428 [facility] 43 U/L High <32 [facility] 433 ug/dL High 228-428 [facility] Non-Reactive Nonreactive [facility] Nucleated red blood cell per centageOrdered By: Phu Espinoza on 10-10-2024 Nucleated RBC/100 WBC (Bld) [Ratio] 0 % 0-5 [facility] Platelet countOrdered By: Sloan Espinoza on 10-10-2024 Platelets (Bld) [#/Vol] 277 10*3/uL 150-450 [facility] Potassium measurement (mass/ volume)Ordered By: Phu Espinoza on 10-10-2024 Potassium (Unsp spec) [Mass/Vol] 4.3 mmol/L 3.3-5.1 [facility] Protein Test strip Ql (U)Ord ered By: Phu Espinoza on 10-10-2024 Protein Ql (U) 30 mg/dl High Negative [facility] Qualitative QuantiFERON-TB g old in tube testOrdered By: Phu Espinoza on 10-10-2024 M. tuberculosis tuberculin stim IFN-g Ql (Bld) 0.05 IU/mL . [facility] RBC Auto (Bld) [#/Vol]Ordere d By: Phu Espinoza on 10-10-2024 RBC (Bld) [#/Vol] 4.73 10*6/uL 4.2-5.4 [facility] Serum creatinine measurement (mass/volume)Ordered By: Phu Espinoza on 10-10-2024 Creatinine [Mass/Vol] 1.25 mg/dL High 0.70-1.20 [facility] Serum globulin measurementOr dered By: Phu Espinoza 10-10-2024 Globulin (S) [Mass/Vol] 3.3 g/dL 2.2-4.2 [facility] Serum glucose measurement (m ass/volume)Ordered By: Phu Espinoza 10-10-2024 Glucose [Mass/Vol] 99 mg/dL 70-99 [facility] Serum or plasma alanine tobar otransferase (ALT) measurementOrdered By: Phu Espinoza 10-10-2024 ALT [Catalytic activity/Vol] 52 U/L High <35 [facility] Serum or plasma albumin thiago urement (mass/volume)Ordered By: Phu Espinoza 10-10-2024 Albumin [Mass/Vol] 4.5 g/dL 3.5-5.0 [facility] Serum or plasma albumin/glob ulin mass ratioOrdered By: Phu Espinoza 10-10-2024 Albumin/Globulin [Mass ratio] 1.4 {ratio} 0.9-2.4 [facility] Serum or plasma alkaline meg sphatase measurementOrdered By: Phu Espinoza 10-10-2024 ALP [Catalytic activity/Vol] 53 U/L 35-104 [facility] Serum or plasma calcium thiago urement (mass/volume)Ordered By: Phu Espinoza 10-10-2024 Calcium [Mass/Vol] 9.9 mg/dL 7.6-11.0 [facility] Serum or plasma ferritin lizette surement (mass/volume)Ordered By: Phu Espinoza 10-10-2024 Ferritin [Mass/Vol] 23 ng/mL 22-378 [facility] Serum or plasma iron saturat ion measurement (mass fraction)Ordered By: Phu Espinoza 10-10-2024 Iron saturation [Mass fraction] 6.0 % Low 13-59 [facility] Comment on above: Previous reported re sult: 6.0 %Edited by: KIERA on 10/10/24:1929 Serum or plasma urea nitroge n measurement (mass/volume)Ordered By: Phu Espinoza on 10-10-2024 Urea nitrogen [Mass/Vol] 25 mg/dL High 4-19 [facility] Sodium levelOrdered By: Phu Espinoza on 10-10-2024 Sodium [Moles/Vol] 139 mmol/L 133-145 [facility] Squamous epithelial cells de tection in urine sediment by light microscopyOrdered By: Phu Espinoza on 10-10-2024 Epithelial cells.squamous LM Ql (Urine sed) 10-25 SEEN /hpf 5-10 [facility] TSH DL <= 0.005 mIU/L QnOrde red By: Phu Espinoza on 10-10-2024 TSH Qn 0.167 uIU/mL Low 0.300-4.200 [facility] Thyroid Stim Hormone (TSH)on 10-10-2024 TSH 0.167 uIU/mL Low 0.300-4.200 [facility] Comment on above: Performed By: #### L 503.0106, L100.0100 #### [facility] [address] [place], [address] Total proteinOrdered By: Phu Espinoza on 10-10-2024 Protein [Mass/Vol] 7.7 g/dL 5.9-8.4 [facility] Urinalysis, Completeon 10-10 CAST,HYALINE 5-10 SEEN Normal 0-5 [facility] Comment on above: Order Comment: Urine , Random Performed By: #### L 503.0106, L100.0100 #### [facility] [address] [place], [address] BACTERIA RARE Normal None Seen [facility] Comment on above: Order Comment: Urine , Random Performed By: #### L 503.0106, L100.0100 #### [facility] [address] [place], [address] EPI,SQUAMOUS 10-25 SEEN Normal 5-10 [facility] Comment on above: Order Comment: Urine , Random Performed By: #### L 503.0106, L100.0100 #### [facility] [address] [place], [address] RBC 0-5 SEEN Normal 0-5 [facility] Comment on above: Order Comment: Urine , Random Performed By: #### L 503.0106, L100.0100 #### [facility] [address] [place], [address] WBC 5-10 SEEN Normal 0-5 [facility] Comment on above: Order Comment: Urine , Random Performed By: #### L 503.0106, L100.0100 #### [facility] [address] [place], [address] Mucus Ql (Urine sed) 0 SEEN Normal [facility] Comment on above: Order Comment: Urine , Random Performed By: #### L 503.0106, L100.0100 #### [facility] [address] [place], [address] Urine clarityOrdered By: Phu Espinoza on 10-10-2024 Clarity (U) Sl. Cloudy Clear [facility] Urine color determinationOrd ered By: Phu Espinoza on 10-10-2024 Color (U) Yellow Yellow [facility] Urine cultureOrdered By: Phu Espinoza 10-10-2024 Bacteria identified Cx Nom (U) Enterococcus faecalis Abnormal [facility] Urine glucose detectionOrder ed By: Phu Espinoza on 10-10-2024 Glucose Ql (U) 1000 mg/dl High Normal [facility] Urine leukocyte esterase det ection by dipstickOrdered By: Phu Espinoza 10-10-2024 Leukocyte esterase Test strip Ql (U) 100 /ul High Negative [facility] Urine pHOrdered By: Phu Espinoza on 10-10-2024 pH (U) 6.0 [pH] 5.0 - 8.0 [facility] Urine sediment bacteria coun t by microscopy (number/high power field)Ordered By: Phu Espinoza on 10-10-2024 Bacteria LM.HPF (Urine sed) [#/Area] RARE /hpf None Seen [facility] Urine specific gravity measu rementOrdered By: Phu Espinoza on 10-10-2024 Specific gravity (U) [Rel density] 1.015 1.002-1.030 [facility] Urine urobilinogen measureme ntOrdered By: Phu Espinoza on 10-10-2024 Urobilinogen Ql (U) Normal mg/dl Normal [facility] Vitamin B12on 10-10-2024 Cobalamin (Vitamin B12) [Mass/Vol] 879 pg/mL Normal 180-914 [facility] Comment on above: Performed By: #### L 503.0106, L100.0100 #### [facility] [address] [place], [place], [address] Vitamin B12 ser/plasOrdered By: Phu Espinoza on 10-10-2024 Cobalamin (Vitamin B12) [Mass/Vol] 879 pg/mL 180-914 [facility] White blood cell (WBC) count Ordered By: Phu Espinoza on 10-10-2024 WBC (Bld) [#/Vol] 9.6 10*3/uL 4.4-11.0 [facility] White blood cell countOrdere d By: Phu Alexis on 10-10-2024 White blood cell count 5-10 SEEN /hpf 0-5 [facility] 12 Lead EKGon 10-07-2024 12 Lead EKG [facility] [address] [place] [address] 12 Lead EKG 10/07/24 0445 MR#: [id number] Acct: [id number] Name: ARLEN NGUYEN Rep #: [id number] : 1970 54 From: Lois Das MD Attending Dr: Dr. Octavio Archuleta MD Status: DIS NATALIE Ordering Dr: Junior Dunn DO Date: 10/07/24 Location: [facility] Sex: F C Admitted: 10/05/24 Test [...] IS UNCONFIRMED Confirmed by MD JONATHAN, LOIS ([id number]), design editor MAXIMO FIELDS ([id number]) on 10/08/2024 10:56:09 AM Referred By: Confirmed By: LOIS DAS MD 10/08/24 1056 Date Lois Das MD CC: Dr. Junior Dunn DO; Dr. Octavio Archuleta MD; Dr. Phu Espinoza MD Signed Normal [facility] Absolute neutrophil countOrd ered By: Megan Jason on 10-07-2024 Absolute neutrophil count Not Reportable [facility] Anion gap in Serum or Plasma Ordered By: Megan White on 10-07-2024 Anion gap [Moles/Vol] 12 mmol/L - [facility] BUN/creatinine ratioOrdered By: on 10-07-2024 Urea nitrogen/Creatinine [Mass ratio] 22.1 mg/mg High 10- [facility] Basophil percentageOrdered B y: Megan Jason on 10-07-2024 Basophils/100 WBC (Bld) 0.6 % 0-1 [facility] Bedside Glucoseon 10-07-2024 FINGERSTICK GLU 134 mg/dL High 74-106 [facility] Comment on above: Result Comment: YESSENIA GEMENT OF PATIENT CARE PER NURSING PROTOCOL Performed By: #### L 500.2500 #### [facility] [address] [place], [place], [id number] (335) FINGERSTICK GLU 178 mg/dL High 74-106 [facility] Comment on above: Result Comment: YESSENIA GEMENT OF PATIENT CARE PER NURSING PROTOCOL Performed By: #### L 500.2500 #### [facility] [address] [place], [address] FINGERSTICK GLU 167 mg/dL High 74-106 [facility] Comment on above: Result Comment: YESSENIA SANCHEZ OF PATIENT CARE PER NURSING PROTOCOL Performed By: #### L 500.2500 #### [facility] [address] [place], [address] Bilirubin, totalOrdered By: Megan Gomez on 10-07-2024 Bilirubin [Mass/Vol] 0.29 mg/dL 0.00-1.30 [facility] Blood platelets count (numbe r/volume)Ordered By: Megan Gomez on 10-07-2024 Platelets (Bld) [#/Vol] 242 10*3/uL 150-450 [facility] CBC W/Diff, Automatedon 09-24-2024 Basophils/100 WBC (Bld) 0.6 % Normal 0-1 [facility] Comment on above: Performed By: #### L 500.2500 #### [facility] [address] [place], [address] Eosinophils/100 WBC (Bld) 2.1 % Normal 0-5 [facility] Comment on above: Performed By: #### L 500.2500 #### [facility] [address] [place], [address] Erythrocyte distribution width (RBC) [Ratio] 15.3 % High 11.6-14.6 [facility] Comment on above: Performed By: #### L 500.2500 #### [facility] [address] [place], [address] Hematocrit (Bld) [Volume fraction] 33.6 % Low 37-47 [facility] Comment on above: Performed By: #### L 500.2500 #### [facility] [address] [place], [address] IG% 0.300 Normal 0.0-0.9 [facility] Comment on above: Result Comment: IG% - Immature Granulocytes (promyelocytes, myelocytes and metamyelocytes) > 1% indicates that a LEFT SHIFT is Present. Performed By: #### L 500.2500 #### [facility] [address] [place], [address] Lymphocytes/100 WBC (Bld) 37.9 % Normal 19-41 [facility] Comment on above: Performed By: #### L 500.2500 #### [facility] [address] [place], [address] MCH (RBC) [Entitic mass] 24.3 pg Low 27.0-32.0 [facility] Comment on above: Performed By: #### L 500.2500 #### [facility] [address] [place], [address] MCHC (RBC) [Mass/Vol] 31.3 g/dL Low 32-36 [facility] Comment on above: Performed By: #### L 500.2500 #### [facility] [address] [place], [address] MCV (RBC) [Entitic vol] 77.8 fL Low 81-99 [facility] Comment on above: Performed By: #### L 500.2500 #### [facility] [address] [place], [address] Monocytes/100 WBC (Bld) 10.8 % High 0-10 [facility] Comment on above: Performed By: #### L 500.2500 #### [facility] [address] [place], [address] Neutrophils/100 WBC (Bld) 48.3 % Normal 47-70 [facility] Comment on above: Performed By: #### L 500.2500 #### [facility] [address] [place], [address] Platelet mean volume (Bld) [Entitic vol] 10.6 fL Normal 6.2-12.0 [facility] Comment on above: Performed By: #### L 500.2500 #### [facility] [address] [place], [address] Platelets (Bld) [#/Vol] 242 10*3/uL Normal 150-450 [facility] Comment on above: Performed By: #### L 500.2500 #### [facility] [address] [place], [address] RDW SD 43.3 fl Normal 35.1-43.9 [facility] Comment on above: Performed By: #### L 500.2500 #### [facility] [address] [place], [address] Hemoglobin (Bld) [Mass/Vol] 10.5 g/dL Low 12.0-15.0 [facility] Comment on above: Performed By: #### L 500.2500 #### [facility] [address] [place], [address] RBC (Bld) [#/Vol] 4.32 10*6/uL Normal 4.2-5.4 [facility] Comment on above: Performed By: #### L 500.2500 #### [facility] [address] [place], [address] WBC (Bld) [#/Vol] 6.6 10*3/uL Normal 4.4-11.0 [facility] Comment on above: Performed By: #### L 500.2500 #### [facility] [address] [place], [address] Calculated very low density lipoprotein (VLDL) cholesterol measurementOrdered By: Junior Dunn on 10-07-2024 Calculated very low density lipoprotein (VLDL) cholesterol measurement 39 mg/dL 5-40 [facility] Carbon dioxide, total [Moles /volume] in Central venous bloodOrdered By: Megan Gomez on 10-07-2024 CO2 [Moles/Vol] 23.7 mmol/L 21.0-32.0 [facility] Cardiovascular stress test r eportOrdered By: Josh Gibbs on 10-07-2024 Study report [facility] [address] [place] [address] MR#: [id number] Acct: [id number] Name: ARLEN NGUYEN Rep #: [id number] : 1970 54 From: Josh Gibbs MD [...] ~ Date Dictated: 10/07/241419 Date Transcribed: 10/07/241419 Digital Content Manager: CO Signed [facility] Work Phone: Chloride assayOrdered By: Kateryna Gomez on 10-07-2024 Chloride [Moles/Vol] 104 mmol/L 98-108 [facility] Comprehensive Metabolic Prof ilon 10-07-2024 Albumin [Mass/Vol] 4.1 g/dL Normal 3.5-5.0 [facility] Comment on above: Performed By: #### L 501.080 #### [facility] [address] [place], [address] Albumin/Globulin [Mass ratio] 1.4 {ratio} Normal 0.9-2.4 [facility] Comment on above: Performed By: #### L 501.080 #### [facility] [address] [place], [address] ALK PHOS 46 U/L Normal 35-104 [facility] Comment on above: Performed By: #### L 501.080 #### [facility] [address] [place], [address] ALT [Catalytic activity/Vol] 58 U/L High <=34 [facility] Comment on above: Performed By: #### L 501.080 #### [facility] [address] [place], [address] AST [Catalytic activity/Vol] 56 U/L High <=31 [facility] Comment on above: Performed By: #### L 501.080 #### [facility] [address] [place], [address] Bilirubin [Mass/Vol] 0.29 mg/dL Normal 0.00-1.30 [facility] Comment on above: Performed By: #### L 501.080 #### [facility] [address] [place], [address] BUN/CRE 22.1 RATIO High 10-20 [facility] Comment on above: Performed By: #### L 501.080 #### [facility] [address] [place], [address] Calcium [Mass/Vol] 9.9 mg/dL Normal 7.6-11.0 [facility] Comment on above: Performed By: #### L 501.080 #### [facility] [address] [place], [address] Chloride [Moles/Vol] 104 mmol/L Normal 98-108 [facility] Comment on above: Performed By: #### L 501.080 #### [facility] [address] [place], [address] CO2 [Moles/Vol] 23.7 mmol/L Normal 21.0-32.0 [facility] Comment on above: Performed By: #### L 501.080 #### [facility] [address] [place], [address] Creatinine [Mass/Vol] 1.08 mg/dL Normal 0.70-1.20 [facility] Comment on above: Performed By: #### L 501.080 #### [facility] [address] [place], [address] ECRCL 83.97 ml/min Normal 50-250 [facility] Comment on above: Performed By: #### L 501.080 #### [facility] [address] [place], [address] GAP 12 Normal 5-15 [facility] Comment on above: Performed By: #### L 501.080 #### [facility] [address] [place], [address] GFR/1.73 sq M.predicted among non-blacks MDRD (S/P/Bld) [Vol rate/Area] 61 mL/min/{1.73_m2} Normal >60 [facility] Comment on above: Result Comment: mL/m in/1.73m2 CKD-EPI Creatinine Equation (2020) Performed By: #### L 501.080 #### [facility] [address] [place], [address] Globulin (S) [Mass/Vol] 2.9 g/dL Normal 2.2-4.2 [facility] Comment on above: Performed By: #### L 501.080 #### [facility] [address] [place], [address] Glucose [Mass/Vol] 150 mg/dL High 70-99 [facility] Comment on above: Performed By: #### L 501.080 #### [facility] [address] [place], [address] Potassium [Moles/Vol] 4.3 mmol/L Normal 3.3-5.1 [facility] Comment on above: Performed By: #### L 501.080 #### [facility] [address] [place], [address] Sodium [Moles/Vol] 140 mmol/L Normal 133-145 [facility] Comment on above: Performed By: #### L 501.080 #### [facility] [address] [place], [address] T PROT 7.0 g/dL Normal 5.9-8.4 [facility] Comment on above: Performed By: #### L 501.080 #### [facility] [address] [place], [address] Urea nitrogen [Mass/Vol] 24 mg/dL High 4-19 [facility] Comment on above: Performed By: #### L 501.080 #### [facility] [address] [place], [address] Echocardiogram study reportO rdered By: Ronda Schaefer on 10-07-2024 Study report [facility] [place] [address] Echo Complete W/ Contrast 10/07/24 1125 MR#: [id number] Acct: [id number] Name: ARLEN NGUYEN Rep #:[id number] : 1970 54 From: Ronda Schaefer MD Attending Dr: Dr. Octavio Archuleta MD Status: ADM NATALIE Ordering Dr: Junior Dunn DO Da te: 10/05/24 Location: [facility] Sex: F C Admitted: 10/05/24 Reason [...] Date Dictated: 10/07/24 1125 Date Transcribed: 10/07/241421 Digital Content Manager: Signed [facility] Work Phone: Electrocardiogram reportOrde red By: Josh Gibbs on 10-07-2024 EKG study [facility] [address] [place] [address] 12 Lead EKG 10/05/24 1923 MR#: [id number] Acct: [id number] Name: ARLEN NGUYEN Rep #:[id number] : 1970 54 From: Josh Gibbs MD Attending Dr: Dr. Octavio Archuleta MD Status: ADM NATALIE Ordering Dr: Anton Thacker DO Date: 03/20 Location: [facility] Sex: F C Admitted: 10/05/24 Test [...] Borderline ECG Confirmed by JOSH GIBBS MD ([id number]), design editor MAXIMO FIELDS ([id number]) on 10/07/2024 11:35:42 AM Referred By: RU Confirmed By: JOSH GIBBS MD 10/07/24 1135 Date _ Josh Gibbs MD CC: Dr. Octavio Archuleta MD; Dr. Anton Thacker DO; Dr. Phu Espinoza MD ~ Signed [facility] Work Phone: [phone] Eosinophil %Ordered By: Tommy Gomez on 10-07-2024 Eosinophils/100 WBC (Bld) 2.1 % 0-5 [facility] Erythrocyte distribution wid th ratioOrdered By: Megan Gomez on 10-07-2024 Erythrocyte distribution width (RBC) [Ratio] 15.3 % High 11.6-14.6 [facility] Glomerular filtration rate ( GFR) estimation/1.73 sq m using serum, plasma, or whole bOrdered By: Megan Gomez on 10-07-2024 GFR/1.73 sq M.predicted among non-blacks MDRD (S/P/Bld) [Vol rate/Area] 61 mL/min/{1.73_m2} >60 [facility] Comment on above: mL/min/1.73m2 CKD-EP I Creatinine Equation (2020) [facility] deOrdered By: Octavio Archuleta on 10-07-2024 Glucose [Mass/Vol] 134 mg/dL High 74-106 [facility] Comment on above: MANAGEMENT OF PATIEN T CARE PER NURSING PROTOCOL Hematocrit Auto (Bld) [Volum e fraction]Ordered By: Megan Gomez on 10-07-2024 Hematocrit (Bld) [Volume fraction] 33.6 % Low 37-47 [facility] Hemoglobin measurementOrdere d By: Megan Gomez on 10-07-2024 Hemoglobin (Bld) [Mass/Vol] 10.5 g/dL Low 12.0-15.0 [facility] Immature granulocyte percent ageOrdered By: Megan Gomez on 10-07-2024 Immature granulocytes/100 WBC (Bld) 0.300 % 0.0-0.9 [facility] Comment on above: IG% - Immature Granu locytes (promyelocytes, myelocytes and metamyelocytes) > 1% indicates that a LEFT SHIFT is Present. LDL calc ser/plasOrdered By: Junior Dunn on 10-07-2024 Cholesterol in LDL [Mass/Vol] 44 mg/dL [facility] Comment on above: Fmnbtyyste=256-998 m g/dL & Higher Vuuj=017 mg/dL or greater Laboratory - Chemistry and C hemistry - challengeOrdered By: Megan Gomez on 10-07-2024 AST [Catalytic activity/Vol] 56 U/L High <32 [facility] Lipid Profileon 10-07-2024 CHOL:HDL 3.77 Normal [facility] Comment on above: Performed By: #### L 501.080 #### [facility] [address] [place], [address] Cholesterol [Mass/Vol] 113 mg/dL Normal <=200 [facility] Comment on above: Result Comment: Chol esterol level, Desirable <200 mg/dL Borderline high cholesterol 200-239 mg/dL High cholesterol >=240 mg/dL Recommendations of the NCEP Adult Treatment Panel for the following risk-cutoff thresholds for the [place] population. Performed By: #### L 501.080 #### [facility] [address] [place], [address] Cholesterol in HDL [Mass/Vol] 30 mg/dL Low [facility] Comment on above: Result Comment: Skye onal Cholesterol Education Program (NCEP) guidelines: <40 mg/dL: Low HDL-cholesterol (major risk factor for CHD) >= 60 mg/dL: High HDL-cholesterol (negative risk factor for CHD) HDL-cholesterol is affected by a number of factors, e.g. smoking, exercise, hormones, sex and age. Performed By: #### L 501.080 #### [facility] [address] [place], [address] Cholesterol in LDL [Mass/Vol] 44 mg/dL Normal [facility] Comment on above: Result Comment: Bord iewhmb=837-054 mg/dL Higher Exxv=005 mg/dL or greater Performed By: #### L 501.080 #### [facility] [address] [place], [address] Cholesterol in VLDL [Mass/Vol] 39 mg/dL Normal 5-40 [facility] Comment on above: Performed By: #### L 501.080 #### [facility] [address] [facility] [address] Triglyceride [Mass/Vol] 196 mg/dL Normal [facility] Comment on above: Result Comment: The drugs N-Acetylcysteine and Metamizole may falsely depress this assay. Normal range: <150 mg/dL Borderline High: 150-199 mg/dL High: 200-499 mg/dL Very High: >500 mg/dL Performed By: #### L 501.080 #### [facility] [address] [facility] [id number] Lymphocyte %Ordered By: Tommy Gomez on 10-07-2024 Lymphocytes/100 WBC (Bld) 37.9 % 19-41 [facility] MCV (mean corpuscular volume ) determinationOrdered By: Megan Gomez on 10-07-2024 MCV (RBC) [Entitic vol] 77.8 fL Low 81-99 [facility] Magnesiumon 10-07-2024 Magnesium [Mass/Vol] 1.9 mg/dL Normal 1.5-2.2 [facility] Comment on above: Performed By: #### L 501.080 #### [facility] [address] [facility] [id number] Magnesium measurement (mass/ volume)Ordered By: Megan Gomez on 10-07-2024 Magnesium (Unsp spec) [Mass/Vol] 1.9 mg/dL 1.5-2.2 [facility] Mean corpuscular hemoglobin (MCH) determinationOrdered By: Megan Gomez on 10-07-2024 MCH (RBC) [Entitic mass] 24.3 pg Low 27.0-32.0 [facility] Mean corpuscular hemoglobin concentration (MCHC) determinationOrdered By: Megan Gomez on 10-07-2024 MCHC (RBC) [Mass/Vol] 31.3 g/dL Low 32-36 [facility] Mean platelet volume determi nationOrdered By: Megan Gomez on 10-07-2024 Platelet mean volume (Bld) [Entitic vol] 10.6 fL 6.2-12.0 [facility] Monocyte percentageOrdered B y: Megan Gomez on 10-07-2024 Monocytes/100 WBC (Bld) 10.8 % High 0-10 [facility] Neutrophil %Ordered By: Tommy Gomez on 10-07-2024 Neutrophils/100 WBC (Bld) 48.3 % 47-70 [facility] No Panel InformationOrdered By: Megan Gomez on 10-07-2024 56 U/L High <32 [facility] Potassium measurement (mass/ volume)Ordered By: Megan Gomez on 10-07-2024 Potassium (Unsp spec) [Mass/Vol] 4.3 mmol/L 3.3-5.1 [facility] RBC Auto (Bld) [#/Vol]Ordere d By: Megan Gomez on 10-07-2024 RBC (Bld) [#/Vol] 4.32 10*6/uL 4.2-5.4 [facility] RDWOrdered By: Megan Gomez on 10-07-2024 RDW 43.3 fl 35.1-43.9 [facility] Screening total cholesterol/ high density lipoprotein (HDL) cholesterol ratioOrdered By: Junior Dunn on 10-07-2024 Cholesterol.total/Choles terol in HDL [Mass ratio] 3.77 {ratio} [facility] Serum creatinine measurement (mass/volume)Ordered By: Megan Gomez on 10-07-2024 Creatinine [Mass/Vol] 1.08 mg/dL 0.70-1.20 [facility] Serum globulin measurementOr dered By: Megan Gomez on 10-07-2024 Globulin (S) [Mass/Vol] 2.9 g/dL 2.2-4.2 [facility] Serum glucose measurement (m ass/volume)Ordered By: Megan Gomez on 10-07-2024 Glucose [Mass/Vol] 150 mg/dL High 70-99 [facility] Serum or plasma alanine tobar otransferase (ALT) measurementOrdered By: Megan Gomez on 10-07-2024 ALT [Catalytic activity/Vol] 58 U/L High <35 [facility] Serum or plasma albumin thiago urement (mass/volume)Ordered By: Megan Gomez on 10-07-2024 Albumin [Mass/Vol] 4.1 g/dL 3.5-5.0 [facility] Serum or plasma albumin/glob ulin mass ratioOrdered By: Megan Gomez on 10-07-2024 Albumin/Globulin [Mass ratio] 1.4 {ratio} 0.9-2.4 [facility] Serum or plasma alkaline meg sphatase measurementOrdered By: Megan Gomez on 10-07-2024 ALP [Catalytic activity/Vol] 46 U/L 35-104 [facility] Serum or plasma calcium thiago urement (mass/volume)Ordered By: Megan Gomez on 10-07-2024 Calcium [Mass/Vol] 9.9 mg/dL 7.6-11.0 [facility] Serum or plasma cholesterol in HDL measurement (mass/volume)Ordered By: Junior uDnn on 10-07-2024 Cholesterol in HDL [Mass/Vol] 30 mg/dL Low >40 [facility] Comment on above: National Cholesterol Education Program (NCEP) guidelines:<40 mg/dL: Low HDL-cholesterol (major risk factor for CHD)>= 60 mg/dL: High HDL-cholesterol (negative risk factor for CHD)HDL-cholesterol is affected by a number of factors, e.g. smoking, exercise, hormones, sex and age. Serum or plasma cholesterol measurement (mass/volume)Ordered By: Junior Dunn on 10-07-2024 Cholesterol [Mass/Vol] 113 mg/dL <201 [facility] Comment on above: Cholesterol level, D esirable <200 mg/dLBorderline high cholesterol 200-239 mg/dLHigh cholesterol >=240 mg/dLRecommendations of the NCEP Adult Treatment Panel for the following risk-cutoff thresholds for the [place] population. Serum or plasma urea nitroge n measurement (mass/volume)Ordered By: Megan Gomez on 10-07-2024 Urea nitrogen [Mass/Vol] 24 mg/dL High 4-19 [facility] Sodium levelOrdered By: Tommy Gomez on 10-07-2024 Sodium [Moles/Vol] 140 mmol/L 133-145 [facility] Stress Reporton 10-07-2024 Stress Report [facility] [address] [place] [address] MR#: [id number] Acct: [id number] Name: ARLEN NGUYEN Rep #: [id number] : 1970 54 From: Josh Gibbs MD [...] Date Dictated: 10/07/241419 Date Transcribed: 07/14/25 1420 Digital Content Manager: CO Signed Normal [facility] Total proteinOrdered By: Ana M Gomez on 10-07-2024 Protein [Mass/Vol] 7.0 g/dL 5.9-8.4 [facility] Triglycerides measurementOrd ered By: Junior Dunn on 10-07-2024 Triglyceride [Mass/Vol] 196 mg/dL <199 [facility] Comment on above: The drugs N-Acetylcy steine and Metamizole may falsely depress this assay. Normal range: <150 mg/dLBorderline High: 150-199 mg/dLHigh: 200-499 mg/dLVery High: >500 mg/dL White blood cell (WBC) count Ordered By: Megan Gomez on 10-07-2024 WBC (Bld) [#/Vol] 6.6 10*3/uL 4.4-11.0 [facility] 12 Lead EKGon 10-06-2024 12 Lead EKG [facility] [address] [place] [address] 12 Lead EKG 10/05/24 2323 MR#: [id number] Acct: [id number] Name: ARLEN NGUYEN Rep #: [id number] : 1970 54 From: Lois Das MD Attending Dr: Dr. Octavio Archuleta MD Status: DIS NATALIE Ordering Dr: Jnuior Dunn DO Date: 10/06/24 Location: [facility] Sex: F C Admitted: 10/05/24 Test [...] IS UNCONFIRMED Confirmed by MD JONATHAN, LOIS ([id number]), design editor MAXIMO FIELDS ([id number]) on 10/08/2024 10:58:51 AM Referred By: Confirmed By: LOIS DAS MD 10/08/24 1058 Date Lois Das MD CC: Dr. Junior Dunn DO; Dr. Octavio Archuleta MD; Dr. Phu Espinoza MD Signed Normal [facility] Basic Metabolic Profile (BMP )on 10-06-2024 BUN/CRE 19.0 RATIO Normal 10-20 [facility] Comment on above: Order Comment: OK TO ADD TO MORNING RUN PER KAMLA RNadd to this AM labs if able. Performed By: #### L 500.2500 ####[facility] [address] [place], [address] Calcium [Mass/Vol] 9.1 mg/dL Normal 7.6-11.0 [facility] Comment on above: Order Comment: OK TO ADD TO MORNING RUN PER KAMLA RNadd to this AM labs if able. Performed By: #### L 500.2500 ####[facility] [address] [place], [address] Chloride [Moles/Vol] 104 mmol/L Normal 98-108 [facility] Comment on above: Order Comment: OK TO ADD TO MORNING RUN PER KAMLA RNadd to this AM labs if able. Performed By: #### L 500.2500 ####[facility] [address] [place], [address] CO2 [Moles/Vol] 22.7 mmol/L Normal 21.0-32.0 [facility] Comment on above: Order Comment: OK TO ADD TO MORNING RUN PER KAMLA RNadd to this AM labs if able. Performed By: #### L 500.2500 ####[facility] [address] [place], [address] Creatinine [Mass/Vol] 1.24 mg/dL High 0.70-1.20 [facility] Comment on above: Order Comment: OK TO ADD TO MORNING RUN PER KAMLA RNadd to this AM labs if able. Performed By: #### L 500.2500 ####[facility] [address] [place], [address] ECRCL 73.13 ml/min Normal 50-250 [facility] Comment on above: Order Comment: OK TO ADD TO MORNING RUN PER KAMLA RNadd to this AM labs if able. Performed By: #### L 500.2500 ####[facility] [address] [place], [address] GAP 12 Normal 5-15 [facility] Comment on above: Order Comment: OK TO ADD TO MORNING RUN PER KAMLA RNadd to this AM labs if able. Performed By: #### L 500.2500 ####[facility] [address] [place], [address] GFR/1.73 sq M.predicted among non-blacks MDRD (S/P/Bld) [Vol rate/Area] 52 mL/min/{1.73_m2} Low >60 [facility] Comment on above: Order Comment: OK TO ADD TO MORNING RUN PER KAMLA RNadd to this AM labs if able. Result Comment: mL/m in/1.73m2 CKD-EPI Creatinine Equation (2020) Performed By: #### L 500.2500 ####[facility] [address] [place], [address] Glucose [Mass/Vol] 135 mg/dL High 70-99 [facility] Comment on above: Order Comment: OK TO ADD TO MORNING RUN PER KAMLA RNadd to this AM labs if able. Performed By: #### L 500.2500 ####[facility] [address] [place], [address] Potassium [Moles/Vol] 4.6 mmol/L Normal 3.3-5.1 [facility] Comment on above: Order Comment: OK TO ADD TO MORNING RUN PER KAMLA RNadd to this AM labs if able. Performed By: #### L 500.2500 ####[facility] [address] [place], [address] Sodium [Moles/Vol] 139 mmol/L Normal 133-145 [facility] Comment on above: Order Comment: OK TO ADD TO MORNING RUN PER KAMLA RNadd to this AM labs if able. Performed By: #### L 500.2500 ####[facility] [address] [place], [address] Urea nitrogen [Mass/Vol] 24 mg/dL High 4-19 [facility] Comment on above: Order Comment: OK TO ADD TO MORNING RUN PER KAMLA RNadd to this AM labs if able. Performed By: #### L 500.2500 ####[facility] [address] [place], [address] Bedside Glucoseon 10-06-2024 FINGERSTICK GLU 180 mg/dL High 74-106 [facility] Comment on above: Result Comment: YESSENIA GEMENT OF PATIENT CARE PER NURSING PROTOCOL Performed By: #### L 501.080 #### [facility] [address] [place], [address] FINGERSTICK GLU 154 mg/dL High 74-106 [facility] Comment on above: Result Comment: YESSENIA GEMENT OF PATIENT CARE PER NURSING PROTOCOL Performed By: #### L 501.080 #### [facility] [address] [place], [address] FINGERSTICK GLU 173 mg/dL High 74-106 [facility] Comment on above: Result Comment: YESSENIA GEMENT OF PATIENT CARE PER NURSING PROTOCOL Performed By: #### L 501.080 #### [facility] [address] [place], [address] FINGERSTICK GLU 125 mg/dL High 74-106 [facility] Comment on above: Result Comment: YESSENIA GEMENT OF PATIENT CARE PER NURSING PROTOCOL Performed By: #### L 501.080 #### [facility] [address] [place], [address] CBC-Complete Blood Cnt No Di ffon 10-06-2024 Erythrocyte distribution width (RBC) [Ratio] 15.7 % High 11.6-14.6 [facility] Comment on above: Performed By: #### L 501.080 #### [facility] [address] [place], [address] Hematocrit (Bld) [Volume fraction] 32.0 % Low 37-47 [facility] Comment on above: Performed By: #### L 501.080 #### [facility] [address] [place], [address] Hemoglobin (Bld) [Mass/Vol] 10.1 g/dL Low 12.0-15.0 [facility] Comment on above: Performed By: #### L 501.080 #### [facility] [address] [place], [address] MCH (RBC) [Entitic mass] 24.3 pg Low 27.0-32.0 [facility] Comment on above: Performed By: #### L 501.080 #### [facility] [address] [place], [address] MCHC (RBC) [Mass/Vol] 31.6 g/dL Low 32-36 [facility] Comment on above: Performed By: #### L 501.080 #### [facility] [address] [place], [address] MCV (RBC) [Entitic vol] 77.1 fL Low 81-99 [facility] Comment on above: Performed By: #### L 501.080 #### [facility] [address] [place], [address] Platelet mean volume (Bld) [Entitic vol] 10.1 fL Normal 6.2-12.0 [facility] Comment on above: Performed By: #### L 501.080 #### [facility] [address] [place], [address] Platelets (Bld) [#/Vol] 233 10*3/uL Normal 150-450 [facility] Comment on above: Performed By: #### L 501.080 #### [facility] [address] [place], [address] RBC (Bld) [#/Vol] 4.15 10*6/uL Low 4.2-5.4 [facility] Comment on above: Performed By: #### L 501.080 #### [facility] [address] [place], [address] RDW SD 43.8 fl Normal 35.1-43.9 [facility] Comment on above: Performed By: #### L 501.080 #### [facility] [address] [place], [address] WBC (Bld) [#/Vol] 7.2 10*3/uL Normal 4.4-11.0 [facility] Comment on above: Performed By: #### L 501.080 #### [facility] [address] [place], [address] L499.0043on 10-06-2024 Trop T High Sen 34 ng/L High <=14 [facility] Comment on above: Performed By: #### L 499.0043 ####[facility] [address] [place], [address] L501.4021on 10-06-2024 Trop T High Sen 24 ng/L High <=14 [facility] Comment on above: Order Comment: Comme nts: may add to ED labs Performed By: #### L 501.080 #### [facility] [address] [place], [address] Magnesiumon 10-06-2024 Magnesium [Mass/Vol] 1.3 mg/dL Low 1.5-2.2 [facility] Comment on above: Order Comment: Comme nts: may add to ED labs Performed By: #### L 501.080 #### [facility] [address] [facility] [place], [address] Troponin T.cardiac [Mass/vol ume] in Serum or Plasma by High sensitivity methodOrdered By: Megan Gomez on 10-06-2024 Troponin T.cardiac High sensitivity method [Mass/Vol] 24 ng/L High <14 [facility] Comment on above: Delta: 21 on 12 Lead EKGon 10-05-2024 12 Lead EKG [facility] Cardi[facility] Services [address] [place] [address] 12 Lead EKG 10/06/24 2354 MR#: [id number] Acct: [id number] Name: ARLEN NGUYEN Rep #: [id number] : 1970 54 From: Sony Yip MD Attending Dr: Dr. Octavio Archuleta MD Status: DIS NATALIE Ordering Dr: Junior Dunn DO Date: 10/05/24 Location: [facility] Sex: F C Admitted: 10/05/24 Test [...] DATA IS UNCONFIRMED Confirmed by Sony Yip ([id number]), design editor MAXIMO FIELDS ([id number]) on 10/10/2024 8:38:17 AM Referred By: JASON Confirmed By: Sony Yip 10/10/24 0838 Date Sony Yip MD CC: Dr. Junior Dunn DO; Dr. Octavio Archuleta MD; Dr. Phu Espinoza MD Signed Normal [facility] 12 Lead EKG [facility] Services [address] [place] [address] 12 Lead EKG 10/05/241922 MR#: [id number] Acct: [id number] Name: ARLEN NGUYEN Rep #: [id number] : 1970 54 From: Josh Gibbs MD Attending Dr: Dr. Octavio Archuleta MD Status: ADM NATALIE Ordering Dr: Anton Thacker DO Date: 10/05/24 Location: [facility] Sex: F C Admitted: 10/05/24 Test [...] Borderline ECG Confirmed by BERNIE DICKENS, JOSH ([id number]), design editor MAXIMO FIELDS ([id number]) on 10/07/2024 11:35:42 AM Referred By: RU Confirmed By: JOSH GIBBS MD 10/07/24 1135 Date Josh Gibbs MD CC: Dr. Octavio Archuleta MD; Dr. Anton Thacker DO; Dr. Phu Espinoza MD Signed Normal [facility] Absolute lymphocyte countOrd ered By: Anton Thacker on 10-05-2024 Lymphocytes Auto (Unsp spec) [#/Vol] 3.48 10*3/uL 0.83-4.51 [facility] Absolute neutrophil countOrd ered By: Anton Thacker on 10-05-2024 Neutrophils (Bld) [#/Vol] 4.9 10*3/uL 2.0-7.7 [facility] Anion gap in Serum or Plasma Ordered By: Anton Thacker on 10-05-2024 Anion gap [Moles/Vol] 15 mmol/L 5-15 [facility] Automated lymphocyte count a s percentage of total leukocytesOrdered By: Anton Thacker on 10-05-2024 Lymphocytes/100 WBC Auto (Unsp spec) 36.5 % 19-41 [facility] BUN/creatinine ratioOrdered By: Anton Thacker on 10-05-2024 Urea nitrogen/Creatinine [Mass ratio] 20.9 mg/mg High 10-20 [facility] Basic Metabolic Profile (BMP )on 10-05-2024 BUN/CRE 21.1 RATIO High - [facility] Comment on above: Performed By: #### L 500.2500 #### [facility] [address] [place], [address] Calcium [Mass/Vol] 9.6 mg/dL Normal 7.6-11.0 [facility] Comment on above: Performed By: #### L 500.2500 #### [facility] [address] [place], [address] Chloride [Moles/Vol] 104 mmol/L Normal 98-108 [facility] Comment on above: Performed By: #### L 500.2500 #### [facility] [address] [place], [address] CO2 [Moles/Vol] 21.0 mmol/L Normal 21.0-32.0 [facility] Comment on above: Performed By: #### L 500.2500 #### [facility] [address] [place], [address] Creatinine [Mass/Vol] 1.32 mg/dL High 0.70-1.20 [facility] Comment on above: Performed By: #### L 500.2500 #### [facility] [address] [place], [address] ECRCL 68.70 ml/min Normal 50-250 [facility] Comment on above: Performed By: #### L 500.2500 #### [facility] [address] [place], [address] GAP 15 Normal 5-15 [facility] Comment on above: Performed By: #### L 500.2500 #### [facility] [address] [place], [address] GFR/1.73 sq M.predicted among non-blacks MDRD (S/P/Bld) [Vol rate/Area] 48 mL/min/{1.73_m2} Low >60 [facility] Comment on above: Result Comment: mL/m in/1.73m2 CKD-EPI Creatinine Equation (2020) Performed By: #### L 500.2500 #### [facility] [address] [place], [address] Glucose [Mass/Vol] 115 mg/dL High 70-99 [facility] Comment on above: Performed By: #### L 500.2500 #### [facility] [address] [place], [address] Potassium [Moles/Vol] 4.7 mmol/L Normal 3.3-5.1 [facility] Comment on above: Performed By: #### L 500.2500 #### [facility] [address] [place], [address] Sodium [Moles/Vol] 141 mmol/L Normal 133-145 [facility] Comment on above: Performed By: #### L 500.2500 #### [facility] [address] [place], [address] Urea nitrogen [Mass/Vol] 28 mg/dL High 4-19 [facility] Comment on above: Performed By: #### L 500.2500 #### [facility] [address] [place], [address] BUN/CRE 20.9 RATIO High 10-20 [facility] Comment on above: Performed By: #### L 100.0100, L501.4021, L500.2500 ####[facility] [address] [place], [address] Calcium [Mass/Vol] 10.2 mg/dL Normal 7.6-11.0 [facility] Comment on above: Performed By: #### L 100.0100, L501.4021, L500.2500 ####[facility] [address] [place], [address] Chloride [Moles/Vol] 104 mmol/L Normal 98-108 [facility] Comment on above: Performed By: #### L 100.0100, L501.4021, L500.2500 ####[facility] [address] [place], [address] CO2 [Moles/Vol] 21.3 mmol/L Normal 21.0-32.0 [facility] Comment on above: Performed By: #### L 100.0100, L501.4021, L500.2500 ####[facility] [address] [place], [address] Creatinine [Mass/Vol] 1.37 mg/dL High 0.70-1.20 [facility] Comment on above: Performed By: #### L 100.0100, L501.4021, L500.2500 ####[facility] [address] [place], [address] ECRCL 66.52 ml/min Normal 50-250 [facility] Comment on above: Performed By: #### L 100.0100, L501.4021, L500.2500 ####[facility] [address] [place], [address] GAP 15 Normal 5-15 [facility] Comment on above: Performed By: #### L 100.0100, L501.4021, L500.2500 ####[facility] [address] [place], [address] GFR/1.73 sq M.predicted among non-blacks MDRD (S/P/Bld) [Vol rate/Area] 46 mL/min/{1.73_m2} Low >60 [facility] Comment on above: Result Comment: mL/m in/1.73m2 CKD-EPI Creatinine Equation (2020) Performed By: #### L 100.0100, L501.4021, L500.2500 ####[facility] [address] [place], [address] Glucose [Mass/Vol] 103 mg/dL High 70-99 [facility] Comment on above: Performed By: #### L 100.0100, L501.4021, L500.2500 ####[facility] [address] [place], [address] Potassium [Moles/Vol] 4.8 mmol/L Normal 3.3-5.1 [facility] Comment on above: Performed By: #### L 100.0100, L501.4021, L500.2500 ####[facility] [address] [place], [address] Sodium [Moles/Vol] 140 mmol/L Normal 133-145 [facility] Comment on above: Performed By: #### L 100.0100, L501.4021, L500.2500 ####[facility] [address] [place], [address] Urea nitrogen [Mass/Vol] 29 mg/dL High 4-19 [facility] Comment on above: Performed By: #### L 100.0100, L501.4021, L500.2500 ####[facility] [address] [place], [address] Basophil percentageOrdered B y: Remus Ungur on 10-05-2024 Basophils/100 WBC (Bld) 0.5 % 0-1 [facility] Bedside Glucoseon 10-05-2024 FINGERSTICK GLU 126 mg/dL High 74-106 [facility] Comment on above: Result Comment: YESSENIA SANCHEZ OF PATIENT CARE PER NURSING PROTOCOL Performed By: #### L 501.080 #### [facility] [address] [place], [address] CBC W/Diff, Automatedon 07-1 2-2024 Absolute Lymph 3.48 X10 3/uL Normal 0.83-4.51 [facility] Comment on above: Performed By: #### L 100.0100, L501.4021, L500.2500 ####[facility] [address] [place], [address] Absolute Neut 4.9 X10 3/uL Normal 2.0-7.7 [facility] Comment on above: Performed By: #### L 100.0100, L501.4021, L500.2500 ####[facility] [address] [place], [address] Basophils/100 WBC (Bld) 0.5 % Normal 0-1 [facility] Comment on above: Performed By: #### L 100.0100, L501.4021, L500.2500 ####[facility] [address] [place], [address] Eosinophils/100 WBC (Bld) 1.6 % Normal 0-5 [facility] Comment on above: Performed By: #### L 100.0100, L501.4021, L500.2500 ####[facility] [address] [place], [address] Erythrocyte distribution width (RBC) [Ratio] 15.5 % High 11.6-14.6 [facility] Comment on above: Performed By: #### L 100.0100, L501.4021, L500.2500 ####[facility] [address] [place], [address] Hematocrit (Bld) [Volume fraction] 34.7 % Low 37-47 [facility] Comment on above: Performed By: #### L 100.0100, L501.4021, L500.2500 ####[facility] [address] [place], [address] Hemoglobin (Bld) [Mass/Vol] 10.9 g/dL Low 12.0-15.0 [facility] Comment on above: Performed By: #### L 100.0100, L501.4021, L500.2500 ####[facility] [address] [place], [address] IG% 0.200 Normal 0.0-0.9 [facility] Comment on above: Result Comment: IG% - Immature Granulocytes (promyelocytes, myelocytes and metamyelocytes) > 1% indicates that a LEFT SHIFT is Present. Performed By: #### L 100.0100, L501.4021, L500.2500 ####[facility] [address] [place], [address] Lymphocytes/100 WBC (Bld) 36.5 % Normal 19-41 [facility] Comment on above: Performed By: #### L 100.0100, L501.4021, L500.2500 ####[facility] [address] [place], [address] MCH (RBC) [Entitic mass] 23.9 pg Low 27.0-32.0 [facility] Comment on above: Performed By: #### L 100.0100, L501.4021, L500.2500 ####[facility] [address] [place], [address] MCHC (RBC) [Mass/Vol] 31.4 g/dL Low 32-36 [facility] Comment on above: Performed By: #### L 100.0100, L501.4021, L500.2500 ####[facility] [address] [place], [address] MCV (RBC) [Entitic vol] 76.1 fL Low 81-99 [facility] Comment on above: Performed By: #### L 100.0100, L501.4021, L500.2500 ####[facility] [address] [place], [address] Monocytes/100 WBC (Bld) 9.5 % Normal 0-10 [facility] Comment on above: Performed By: #### L 100.0100, L501.4021, L500.2500 ####[facility] [address] [place], [address] Neutrophils/100 WBC (Bld) 51.7 % Normal 47-70 [facility] Comment on above: Performed By: #### L 100.0100, L501.4021, L500.2500 ####[facility] [address] [place], [address] Nucleated RBC (Bld) [#/Vol] 0 10*3/uL Normal 0-5 [facility] Comment on above: Performed By: #### L 100.0100, L501.4021, L500.2500 ####[facility] [address] [place], [address] Platelet mean volume (Bld) [Entitic vol] 9.7 fL Normal 6.2-12.0 [facility] Comment on above: Performed By: #### L 100.0100, L501.4021, L500.2500 ####[facility] [address] [place], [address] Platelets (Bld) [#/Vol] 276 10*3/uL Normal 150-450 [facility] Comment on above: Performed By: #### L 100.0100, L501.4021, L500.2500 ####[facility] [address] [place], [address] RBC (Bld) [#/Vol] 4.56 10*6/uL Normal 4.2-5.4 [facility] Comment on above: Performed By: #### L 100.0100, L501.4021, L500.2500 ####[facility] [address] [place], [address] RDW SD 42.5 fl Normal 35.1-43.9 [facility] Comment on above: Performed By: #### L 100.0100, L501.4021, L500.2500 ####[facility] [address] [place], [address] WBC (Bld) [#/Vol] 9.5 10*3/uL Normal 4.4-11.0 [facility] Comment on above: Performed By: #### L 100.0100, L501.4021, L500.2500 ####[facility] [address] [place], [address] Carbon dioxide, total [Moles /volume] in Central venous bloodOrdered By: Anton Thacker on 10-05-2024 CO2 [Moles/Vol] 21.3 mmol/L 21.0-32.0 [facility] Chest 1 View (Portable)on Chest 1 View (Portable) [facility] Imaging Services [address] [place] [address] Chest 1 View (Portable) MR#: [id number] Acct: [id number] Name: ARLEN NGUYEN Rep #: [id number] : 1970 F 54 From: Ritchie Caraballo MD PCP: Dr. Phu Espinoza MD Status: REG ER Study: Chest 1 View (Portable) Date of Exam: 10/05/24 Exam# [id number] Ordering Dr: Anton Thacker DO PROCEDURE: CHEST [...] IMPRESSION: No acute cardiopulmonary abnormality. Reading Location: [id number] CC: Dr. Anton Thacker DO; Dr. Phu Espinoza MD Digital Content Manager: Signed Normal [facility] Chloride assayOrdered By: Arabella Thacker on 10-05-2024 Chloride [Moles/Vol] 104 mmol/L 98-108 [facility] D-Dimer Quantitative (DVT/PE )on 10-05-2024 D-DIMER QUANT 0.42 FEU/ug/m Normal 0.27-0.49 [facility] Comment on above: Result Comment: NORM AL D-Dimer level (<0.50) indicates no DVT or PE. Performed By: #### L 300.8000 ####[facility] [address] [place], [address] Echo Complete W/ Contraston 10-05-2024 Echo Complete W/ Contrast [facility] [address] [place] [address] Echo Complete W/ Contrast 10/07/24 1125 MR#: [id number] Acct: [id number] Name: ARLEN NGUYEN Rep #: [id number] : 1970 54 From: Ronda Schaefer MD [...] Dictated: 10/07/24 1125 Date Transcribed: 10/07/24 1422 Digital Content Manager: Signed Normal [facility] Emergency Department Summary on 10-05-2024 Emergency Department Summary [facility] Medical Records Department [address] [place] [address] Emergency Department Summary 10/05/24 MR#: [id number] Acct: [id number] Name: ARLEN NGUYEN Rep #: [id number] : 1970 54 From: Anton Thacker DO PCP: Dr. Phu Espinoza MD Status:ADM NATALIE Location: [place] [address]-1 HPI History of Present Illness Chief Complaint: [...] surgery although she recently had travel to [place] by car but it was less than 4 hours. No history of PE or DVT. She has no heart history. She is a diabetic and has history of hypertension and high cholesterol. Patient also with history of anxiety and history of GERD. Currently rates her pain a 5 out of 10. [facility] Medical History Post-menopausal Wears contact lenses Anxiety [...] throat Cardiov (more content not included)... Normal [facility] Eosinophil percentageOrdered By: Anton Thacker on 10-05-2024 Eosinophils/100 WBC (Bld) 1.6 % 0-5 [facility] Erythrocyte distribution wid th ratioOrdered By: Anton Thacker on 10-05-2024 Erythrocyte distribution width (RBC) [Ratio] 15.5 % High 11.6-14.6 [facility] Erythrocyte distribution wid th standard deviationOrdered By: Anton Thacekr on 10-05-2024 Erythrocyte distribution width (RBC) [Ratio] 42.5 fl 35.1-43.9 [facility] Glomerular filtration rate ( GFR) estimation/1.73 sq m using serum, plasma, or whole bOrdered By: Anton Thacker on 10-05-2024 GFR/1.73 sq M.predicted among non-blacks MDRD (S/P/Bld) [Vol rate/Area] 46 mL/min/{1.73_m2} Low >60 [facility] Comment on above: mL/min/1.73m2 CKD-EP I Creatinine Equation (2020) H AND P Exam - [facility] 10-05-2024 H&P Exam - Hospitalist [facility] Medical Records Department [address] [place] [address] H P Exam - Hospitalist 10/05/24 2110 MR#: [id number] Acct: [id number] Name: ARLEN NGUYEN Rep #: [id number] : 1970 54 From: Junior Dunn DO PCP: Dr. Phu Espinoza MD Status:ADM NATALIE Location: [place] [address] HPI - General General Date of Admission: 10/05/24 Date of Service: 10/05/24 Chief Complaint: Chest pain HPI Narrative ARLEN NGUYEN, is a 54 F who presented to [facility] ED on 10/05/2024 with chest pain. [...] concerns. Will be admitted for further management. [facility] Medical History Post-menopausal Wears contact lenses Anxiety [...] @ 13:0 (more content not included)... Normal [facility] Hematocrit Auto (Bld) [Volum e fraction]Ordered By: Anton Thacker on 10-05-2024 Hematocrit (Bld) [Volume fraction] 34.7 % Low 37-47 [facility] Hemoglobin A1con 10-05-2024 HbA1c (Bld) [Mass fraction] 6.0 % High <=5.6 [facility] Comment on above: Result Comment: Norm al < 5.7 % Prediabetic 5.7 - 6.4 % Diabetic >or= 6.5 % Please note range changes. Performed By: #### L 500.4050, L100.0100, L501.9520 #### [facility] [address] [place], [place], [address] Hemoglobin A1c percentageOrd ered By: Junior Dunn on 10-05-2024 HbA1c (Bld) [Mass fraction] 6.0 % High <5.7 [facility] Comment on above: Normal < 5.7 % Predi abetic 5.7 - 6.4 % Diabetic >or= 6.5 % Please note range changes. Hemoglobin measurementOrdere d By: Anton Thacker on 10-05-2024 Hemoglobin (Bld) [Mass/Vol] 10.9 g/dL Low 12.0-15.0 [facility] Immature granulocytes/100 WB C Auto (Bld)Ordered By: Anton Thacker on 10-05-2024 Immature granulocytes/100 WBC (Bld) 0.200 % 0.0-0.9 [facility] Comment on above: IG% - Immature Granu locytes (promyelocytes, myelocytes and metamyelocytes) > 1% indicates that a LEFT SHIFT is Present. L499.0042on 10-05-2024 Trop T High Sen 22 ng/L High <=14 [facility] Comment on above: Performed By: #### L 499.0042 ####[facility] [address] [place], [place], [address] L501.4021on 10-05-2024 Trop T High Sen 21 ng/L High <=14 [facility] Comment on above: Performed By: #### L 100.0100, L501.4021, L500.2500 ####[facility] [address] [place], [address] MCV (mean corpuscular volume ) determinationOrdered By: Anton Thacker on 10-05-2024 MCV (RBC) [Entitic vol] 76.1 fL Low 81-99 [facility] Mean corpuscular hemoglobin (MCH) determinationOrdered By: Remus Thacker on 10-05-2024 MCH (RBC) [Entitic mass] 23.9 pg Low 27.0-32.0 [facility] Mean corpuscular hemoglobin concentration (MCHC) determinationOrdered By: Anton Thacker on 10-05-2024 MCHC (RBC) [Mass/Vol] 31.4 g/dL Low 32-36 [facility] Mean platelet volume determi nationOrdered By: Anton Thacker on 10-05-2024 Platelet mean volume (Bld) [Entitic vol] 9.7 fL 6.2-12.0 [facility] Monocyte percentageOrdered B y: Anton Thacker on 10-05-2024 Monocytes/100 WBC (Bld) 9.5 % 0-10 [facility] Neutrophil percentageOrdered By: Anton Thacker on 10-05-2024 Neutrophils/100 WBC (Bld) 51.7 % 47-70 [facility] Nucleated red blood cell per centageOrdered By: Anton Thacker on 10-05-2024 Nucleated RBC/100 WBC (Bld) [Ratio] 0 % 0-5 [facility] Platelet countOrdered By: Arabella Thacker on 10-05-2024 Platelets (Bld) [#/Vol] 276 10*3/uL 150-450 [facility] Potassium measurement (mass/ volume)Ordered By: Anton Thacker on 10-05-2024 Potassium (Unsp spec) [Mass/Vol] 4.8 mmol/L 3.3-5.1 [facility] RBC Auto (Bld) [#/Vol]Ordere d By: Anton Thacker on 10-05-2024 RBC (Bld) [#/Vol] 4.56 10*6/uL 4.2-5.4 [facility] Serum creatinine measurement (mass/volume)Ordered By: Anton Thacker on 10-05-2024 Creatinine [Mass/Vol] 1.37 mg/dL High 0.70-1.20 [facility] Serum glucose measurement (m ass/volume)Ordered By: Julietus Thacker on 10-05-2024 Glucose [Mass/Vol] 103 mg/dL High 70-99 [facility] Serum or plasma calcium thiago urement (mass/volume)Ordered By: Anton Thacker on 10-05-2024 Calcium [Mass/Vol] 10.2 mg/dL 7.6-11.0 [facility] Serum or plasma urea nitroge n measurement (mass/volume)Ordered By: Anton Thacker on 10-05-2024 Urea nitrogen [Mass/Vol] 29 mg/dL High 4-19 [facility] Sodium levelOrdered By: Mallorie Thacker on 10-05-2024 Sodium [Moles/Vol] 140 mmol/L 133-145 [facility] Troponin T.cardiac [Mass/vol ume] in Serum or Plasma by High sensitivity methodOrdered By: Anton Thacker on 10-05-2024 Troponin T.cardiac High sensitivity method [Mass/Vol] 34 ng/L High <14 [facility] Troponin T.cardiac High sensitivity method [Mass/Vol] 22 ng/L High <14 [facility] Troponin T.cardiac High sensitivity method [Mass/Vol] 21 ng/L High <14 [facility] White blood cell (WBC) count Ordered By: Anton Thacker on 10-05-2024 WBC (Bld) [#/Vol] 9.5 10*3/uL 4.4-11.0 [facility] Absolute lymphocyte countOrd ered By: Phu Espinoza on 07-03-2024 Lymphocytes Auto (Unsp spec) [#/Vol] 2.19 10*3/uL 0.83-4.51 [facility] Absolute neutrophil countOrd ered By: Phu Espinoza on 07-03-2024 Neutrophils (Bld) [#/Vol] 4.9 10*3/uL 2.0-7.7 [facility] Anion gap in Serum or Plasma Ordered By: Phu Espinoza on 07-03-2024 Anion gap [Moles/Vol] 12 mmol/L 5-15 [facility] Automated lymphocyte count a s percentage of total leukocytesOrdered By: Phu Espinoza on 07-03-2024 Lymphocytes/100 WBC Auto (Unsp spec) 26.7 % 19- [facility] BUN/creatinine ratioOrdered By: Phu Espinoza on 07-03-2024 Urea nitrogen/Creatinine [Mass ratio] 19.0 mg/mg 10-20 [facility] Basophil percentageOrdered B y: Phu Alexis on 07-03-2024 Basophils/100 WBC (Bld) 1.0 % 0-1 [facility] Bilirubin, totalOrdered By: Phu Espinoza on 07-03-2024 Bilirubin [Mass/Vol] 0.41 mg/dL 0.00-1.30 [facility] CBC W/Diff, Automatedon Absolute Lymph 2.19 X10 3/uL Normal 0.83-4.51 [facility] Comment on above: Performed By: #### L 500.4050, L100.0100, L501.9520 #### [facility] [address] [place], [address] Absolute Neut 4.9 X10 3/uL Normal 2.0-7.7 [facility] Comment on above: Performed By: #### L 500.4050, L100.0100, L501.9520 #### [facility] [address] [place], [address] Basophils/100 WBC (Bld) 1.0 % Normal 0-1 [facility] Comment on above: Performed By: #### L 500.4050, L100.0100, L501.9520 #### [facility] [address] [place], [address] Eosinophils/100 WBC (Bld) 1.8 % Normal 0-5 [facility] Comment on above: Performed By: #### L 500.4050, L100.0100, L501.9520 #### [facility] [address] [place], [address] Erythrocyte distribution width (RBC) [Ratio] 15.5 % High 11.6-14.6 [facility] Comment on above: Performed By: #### L 500.4050, L100.0100, L501.9520 #### [facility] [address] [place], [address] Hematocrit (Bld) [Volume fraction] 35.7 % Low 37-47 [facility] Comment on above: Performed By: #### L 500.4050, L100.0100, L501.9520 #### [facility] [address] [place], [address] Hemoglobin (Bld) [Mass/Vol] 10.8 g/dL Low 12.0-15.0 [facility] Comment on above: Performed By: #### L 500.4050, L100.0100, L501.9520 #### [facility] [address] [place], [address] IG% 0.500 Normal 0.0-0.9 [facility] Comment on above: Result Comment: IG% - Immature Granulocytes (promyelocytes, myelocytes and metamyelocytes) > 1% indicates that a LEFT SHIFT is Present. Performed By: #### L 500.4050, L100.0100, L501.9520 #### [facility] [address] [place], [address] Lymphocytes/100 WBC (Bld) 26.7 % Normal 19-41 [facility] Comment on above: Performed By: #### L 500.4050, L100.0100, L501.9520 #### [facility] [address] [place], [address] MCH (RBC) [Entitic mass] 24.2 pg Low 27.0-32.0 [facility] Comment on above: Performed By: #### L 500.4050, L100.0100, L501.9520 #### [facility] [address] [place], [address] MCHC (RBC) [Mass/Vol] 30.3 g/dL Low 32-36 [facility] Comment on above: Performed By: #### L 500.4050, L100.0100, L501.9520 #### [facility] [address] [place], [address] MCV (RBC) [Entitic vol] 80.0 fL Low 81-99 [facility] Comment on above: Performed By: #### L 500.4050, L100.0100, L501.9520 #### [facility] [address] [place], [address] Monocytes/100 WBC (Bld) 9.9 % Normal 0-10 [facility] Comment on above: Performed By: #### L 500.4050, L100.0100, L501.9520 #### [facility] [address] [place], [address] Neutrophils/100 WBC (Bld) 60.1 % Normal 47-70 [facility] Comment on above: Performed By: #### L 500.4050, L100.0100, L501.9520 #### [facility] [address] [place], [address] Nucleated RBC (Bld) [#/Vol] 0 10*3/uL Normal 0-5 [facility] Comment on above: Performed By: #### L 500.4050, L100.0100, L501.9520 #### [facility] [address] [place], [address] Platelet mean volume (Bld) [Entitic vol] 9.8 fL Normal 6.2-12.0 [facility] Comment on above: Performed By: #### L 500.4050, L100.0100, L501.9520 #### [facility] [address] [place], [address] Platelets (Bld) [#/Vol] 282 10*3/uL Normal 150-450 [facility] Comment on above: Performed By: #### L 500.4050, L100.0100, L501.9520 #### [facility] [address] [place], [address] RBC (Bld) [#/Vol] 4.46 10*6/uL Normal 4.2-5.4 [facility] Comment on above: Performed By: #### L 500.4050, L100.0100, L501.9520 #### [facility] [address] [place], [address] RDW SD 44.4 fl High 35.1-43.9 [facility] Comment on above: Performed By: #### L 500.4050, L100.0100, L501.9520 #### [facility] [address] [place], [address] WBC (Bld) [#/Vol] 8.2 10*3/uL Normal 4.4-11.0 [facility] Comment on above: Performed By: #### L 500.4050, L100.0100, L501.9520 #### [facility] [address] [place], [address] Carbon dioxide, total [Moles /volume] in Central venous bloodOrdered By: Phu Espinoza on 07-03-2024 CO2 [Moles/Vol] 28.2 mmol/L 21.0-32.0 [facility] Chloride assayOrdered By: Sloan Espinoza on 07-03-2024 Chloride [Moles/Vol] 102 mmol/L 98-108 [facility] Comprehensive Metabolic Prof ilon 07-03-2024 Albumin [Mass/Vol] 4.2 g/dL Normal 3.5-5.0 [facility] Comment on above: Performed By: #### L 500.4050, L100.0100, L501.9520 #### [facility] [address] [place], [address] Albumin/Globulin [Mass ratio] 1.5 {ratio} Normal 0.9-2.4 [facility] Comment on above: Performed By: #### L 500.4050, L100.0100, L501.9520 #### [facility] [address] [place], [address] ALK PHOS 50 U/L Normal 35-104 [facility] Comment on above: Performed By: #### L 500.4050, L100.0100, L501.9520 #### [facility] [address] [place], [address] ALT [Catalytic activity/Vol] 62 U/L High <=34 [facility] Comment on above: Performed By: #### L 500.4050, L100.0100, L501.9520 #### [facility] [address] [place], [address] AST [Catalytic activity/Vol] 67 U/L High <=31 [facility] Comment on above: Performed By: #### L 500.4050, L100.0100, L501.9520 #### [facility] [address] [place], [address] Bilirubin [Mass/Vol] 0.41 mg/dL Normal 0.00-1.30 [facility] Comment on above: Performed By: #### L 500.4050, L100.0100, L501.9520 #### [facility] [address] [place], [address] BUN/CRE 19.0 RATIO Normal 10-20 [facility] Comment on above: Performed By: #### L 500.4050, L100.0100, L501.9520 #### [facility] [address] [place], [address] Calcium [Mass/Vol] 9.4 mg/dL Normal 7.6-11.0 [facility] Comment on above: Performed By: #### L 500.4050, L100.0100, L501.9520 #### [facility] [address] [place], [address] Chloride [Moles/Vol] 102 mmol/L Normal 98-108 [facility] Comment on above: Performed By: #### L 500.4050, L100.0100, L501.9520 #### [facility] [address] [place], [address] CO2 [Moles/Vol] 28.2 mmol/L Normal 21.0-32.0 [facility] Comment on above: Performed By: #### L 500.4050, L100.0100, L501.9520 #### [facility] [address] [place], [address] Creatinine [Mass/Vol] 1.00 mg/dL Normal 0.70-1.20 [facility] Comment on above: Performed By: #### L 500.4050, L100.0100, L501.9520 #### [facility] [address] [place], [address] GAP 12 Normal 5-15 [facility] Comment on above: Performed By: #### L 500.4050, L100.0100, L501.9520 #### [facility] [address] [place], [address] GFR/1.73 sq M.predicted among non-blacks MDRD (S/P/Bld) [Vol rate/Area] 67 mL/min/{1.73_m2} Normal >60 [facility] Comment on above: Result Comment: mL/m in/1.73m2 CKD-EPI Creatinine Equation (2020) Performed By: #### L 500.4050, L100.0100, L501.9520 #### [facility] [address] [place], [address] Globulin (S) [Mass/Vol] 2.8 g/dL Normal 2.2-4.2 [facility] Comment on above: Performed By: #### L 500.4050, L100.0100, L501.9520 #### [facility] [address] [place], [address] Glucose [Mass/Vol] 133 mg/dL High 70-99 [facility] Comment on above: Performed By: #### L 500.4050, L100.0100, L501.9520 #### [facility] [address] [place], [address] Potassium [Moles/Vol] 4.3 mmol/L Normal 3.3-5.1 [facility] Comment on above: Performed By: #### L 500.4050, L100.0100, L501.9520 #### [facility] [address] [place], [address] Sodium [Moles/Vol] 142 mmol/L Normal 133-145 [facility] Comment on above: Performed By: #### L 500.4050, L100.0100, L501.9520 #### [facility] [address] [place], [address] T PROT 7.0 g/dL Normal 5.9-8.4 [facility] Comment on above: Performed By: #### L 500.4050, L100.0100, L501.9520 #### [facility] [address] [place], [address] Urea nitrogen [Mass/Vol] 19 mg/dL Normal 4-19 [facility] Comment on above: Performed By: #### L 500.4050, L100.0100, L501.9520 #### [facility] [address] [place], [place], [id number] Eosinophil percentageOrdered By: Phu Espinoza 07-03-2024 Eosinophils/100 WBC (Bld) 1.8 % 0-5 [facility] Erythrocyte distribution wid th (RBC) [Ratio]Ordered By: Phu Espinoza 07-03-2024 Erythrocyte distribution width (RBC) [Entitic vol] 44.4 fL High 35.1-43.9 [facility] Erythrocyte distribution wid th ratioOrdered By: Phu Espinoza 07-03-2024 Erythrocyte distribution width (RBC) [Ratio] 15.5 % High 11.6-14.6 [facility] Erythrocyte distribution wid th standard deviationOrdered By: [facility] 07-03-[facility] Erythrocyte distribution width (RBC) [Ratio] 44.4 fl High 35.1-43.9 [facility] GFR/1.73 sq M.predicted sanchez g non-blacks MDRD (S/P/Bld) [Vol rate/Area]Ordered By: Phu Espinoza 07-03-2024 Estimated GFR (MDRD) Non-Af Amer 67 >60 [facility] Comment on above: mL/min/1.73m2 CKD-EP I Creatinine Equation (2020) Glomerular filtration rate ( GFR) estimation/1.73 sq m using serum, plasma, or whole bOrdered By: Phu Espinoza 07-03-2024 GFR/1.73 sq M.predicted among non-blacks MDRD (S/P/Bld) [Vol rate/Area] 67 mL/min/{1.73_m2} >60 [facility] Comment on above: mL/min/1.73m2 CKD-EP I Creatinine Equation (2020) Hematocrit Auto (Bld) [Volum e fraction]Ordered By: Phu Espinoza 07-03-2024 Hematocrit (Bld) [Volume fraction] 35.7 % Low 37-47 [facility] Hemoglobin measurementOrdere d By: Phu Espinoza 07-03-2024 Hemoglobin (Bld) [Mass/Vol] 10.8 g/dL Low 12.0-15.0 [facility] Immature granulocytes/100 WB C Auto (Bld)Ordered By: Phu Espinoza on 07-03-2024 Immature granulocytes/100 WBC (Bld) 0.500 % 0.0-0.9 [facility] Comment on above: IG% - Immature Granu locytes (promyelocytes, myelocytes and metamyelocytes) > 1% indicates that a LEFT SHIFT is Present. Laboratory - Chemistry and C hemistry - challengeOrdered By: Phu Espinoza on 07-03-2024 AST [Catalytic activity/Vol] 67 U/L High <32 [facility] Lymphocytes Auto (Unsp spec) [#/Vol]Ordered By: [facility] on 07-03-2024 Lymphocytes (Bld) [#/Vol] 2.19 10*3/uL 0.83-4.51 [facility] Lymphocytes/100 WBC Auto (Un sp spec)Ordered By: Phu Espinoza on 07-03-2024 Lymphocytes/100 WBC (Bld) 26.7 % 19-41 [facility] MCV (mean corpuscular volume ) determinationOrdered By: Phu Espinoza on 07-03-2024 MCV (RBC) [Entitic vol] 80.0 fL Low 81-99 [facility] Mean corpuscular hemoglobin (MCH) determinationOrdered By: [facility] 07-03-2024 MCH (RBC) [Entitic mass] 24.2 pg Low 27.0-32.0 [facility] Mean corpuscular hemoglobin concentration (MCHC) determinationOrdered By: Phu Alexis 07-03-2024 MCHC (RBC) [Mass/Vol] 30.3 g/dL Low 32-36 [facility] Mean platelet volume determi nationOrdered By: Phu Espinoza on 07-03-2024 Platelet mean volume (Bld) [Entitic vol] 9.8 fL 6.2-12.0 [facility] Monocyte percentageOrdered B y: Phu Espinoza on 07-03-2024 Monocytes/100 WBC (Bld) 9.9 % 0-10 [facility] Neutrophil percentageOrdered By: [facility] on 07-03-2024 Neutrophils/100 WBC (Bld) 60.1 % 47-70 [facility] Nucleated red blood cell per centageOrdered By: Phu Espinoza on 07-03-2024 Nucleated RBC/100 WBC (Bld) [Ratio] 0 % 0-5 [facility] Platelet countOrdered By: Sloan Espinoza on 07-03-2024 Platelets (Bld) [#/Vol] 282 10*3/uL 150-450 [facility] Potassium (Unsp spec) [Mass/ Vol]Ordered By: Phu Espinoza on 07-03-2024 Potassium [Moles/Vol] 4.3 mmol/L 3.3-5.1 [facility] Potassium measurement (mass/ volume)Ordered By: Phu Espinoza on 07-03-2024 Potassium (Unsp spec) [Mass/Vol] 4.3 mmol/L 3.3-5.1 [facility] RBC Auto (Bld) [#/Vol]Ordere d By: Phu Espinoza on 07-03-2024 RBC (Bld) [#/Vol] 4.46 10*6/uL 4.2-5.4 [facility] Serum creatinine measurement (mass/volume)Ordered By: Phu Espinoza on 07-03-2024 Creatinine [Mass/Vol] 1.00 mg/dL 0.70-1.20 [facility] Serum globulin measurementOr dered By: Phu Espinoza 07-03-2024 Globulin (S) [Mass/Vol] 2.8 g/dL 2.2-4.2 [facility] Serum glucose measurement (m ass/volume)Ordered By: Phu Espinoza 07-03-2024 Glucose [Mass/Vol] 133 mg/dL High 70-99 [facility] Serum or plasma alanine tobar otransferase (ALT) measurementOrdered By: Phu Espinoza 07-03-2024 ALT [Catalytic activity/Vol] 62 U/L High <35 [facility] Serum or plasma albumin thiago urement (mass/volume)Ordered By: Phu Espinoza 07-03-2024 Albumin [Mass/Vol] 4.2 g/dL 3.5-5.0 [facility] Serum or plasma albumin/glob ulin mass ratioOrdered By: Phu Espinoza 07-03-2024 Albumin/Globulin [Mass ratio] 1.5 {ratio} 0.9-2.4 [facility] Serum or plasma alkaline meg sphatase measurementOrdered By: Phu Espinoza 07-03-2024 ALP [Catalytic activity/Vol] 50 U/L 35-104 [facility] Serum or plasma calcium thiago urement (mass/volume)Ordered By: Phu Espinoza on 07-03-2024 Calcium [Mass/Vol] 9.4 mg/dL 7.6-11.0 [facility] Serum or plasma urea nitroge n measurement (mass/volume)Ordered By: Phu Espinoza on 07-03-2024 Urea nitrogen [Mass/Vol] 19 mg/dL 4-19 [facility] Sodium levelOrdered By: Phu Espinoza on 07-03-2024 Sodium [Moles/Vol] 142 mmol/L 133-145 [facility] TSH DL <= 0.005 mIU/L QnOrde red By: Phu Espinoza on 07-03-2024 Thyroid Stimulating Hormone (TSH) 0.593 uIU/mL 0.300-4.200 [facility] TSH Qn 0.593 uIU/mL 0.300-4.200 [facility] Thyroid Stim Hormone (TSH)on 07-03-2024 TSH 0.593 uIU/mL Normal 0.300-4.200 [facility] Comment on above: Performed By: #### L 500.4050, L100.0100, L501.9520 #### [facility] [address] [place], [place], [address] Total proteinOrdered By: Phu Espinoza on 07-03-2024 Protein [Mass/Vol] 7.0 g/dL 5.9-8.4 [facility] White blood cell (WBC) count Ordered By: Phu Espinoza on 07-03-2024 WBC (Bld) [#/Vol] 8.2 10*3/uL 4.4-11.0 [facility] Direct serum free thyroxine (FT4) measurementOrdered By: Massiel Gibbons on 05-02-2024 Free T4 [Mass/Vol] 1.05 ng/dL 0.76-1.46 [facility] Endocrinology Visit Reporton 05-02-2024 Endocrinology Visit Report [facility] [address] [place] [address]. [address] [place] [address] OFFICE VISIT Date of Service: 05/02/24 MR#: [id number] Acct: [id number] Name: ARLEN NGUYEN Rep #: [id number] : 1970 Provider: ADELITA martin Age/Sex: 54/F Location: [facility] Status: Signed Intake Vital Signs [...] acute concerns (more content not included)... Normal [facility] - Hematology and Cell countsOrdered By: Massiel Gibbons on 05-02-2024 HbA1c (Bld) [Mass fraction] 6.7 % High 4.2-6.3 [facility] T4 Free Directon 05-02-2024 T4 FREE DIRECT 1.05 ng/dL Normal 0.76-1.46 [facility] Comment on above: Performed By: #### L 506.0400, L501.9520 ####[facility] [id number] [place], [address] TSH QnOrdered By: Massiel martin on 05-02-2024 Thyroid Stimulating Hormone (TSH) 2.130 uIU/mL 0.358-3.740 [facility] Thyroid Stim Hormone (TSH)on 05-02-2024 TSH 2.130 uIU/mL Normal 0.358-3.740 [facility] Comment on above: Performed By: #### L 506.0400, L501.9520 ####[facility] [address] [place], [address] Abdomen without IV Contrasto n 04-19-2024 Abdomen without IV Contrast [facility] [address] [place] [address] Abdomen without IV Contrast MR#: [id number] Acct: [id number] Name: ARLEN NGUYEN Rep #: [id number] : 1970 F 54 From: Roverto Andujar PCP: Dr. Phu Espinoza MD Status: REG CLI Study: Abdomen without IV Contrast Date of Exam: 03/28 07/19 Exam# [id number] Ordering Dr: Jodi Agee MD [id number] STUDY: CT Abdomen W/O Contrast Injection 04/21/2024 [...] Phu Espinoza MD; Dr. Jodi Agee MD Digital Content Manager: Signed Normal [facility] Surgery Visit Reporton 03-22 Surgery Visit Report [facility] [address] [place] [address] OFFICE VISIT Date of Service: 03/22/24 MR#: [id number] Acct: [id number] Name: ARLEN NGUYEN Rep #: [id number] : 1970 Provider: Dr. Jodi back MD Age/Sex: 53/F Location: [facility] Status: Signed Intake Vital Signs 01/31/24 [...] atrial fi (more content not included)... Normal [facility] Chest PA and Lateralon 03-04 Chest PA and Lateral [facility] [place], [place] [address] Chest PA and Lateral MR#: [id number] Acct: [id number] Name: ARLEN NGUYEN Rep #: [id number] : 1970 F 53 From: Eduard Andujar PCP: Dr. Phu Espinoza MD Status: [facility] Study: Chest PA and Lateral Date of Exam: 03/04/24 Exam# [id number] Ordering Dr: Phu Espinoza MD [id number] INDICATION: WHEEZING EXAMINATION/TECHNIQU E: X-RAY - XR [...] EST , CC: Dr. Phu Espinoza MD Digital Content Manager: Signed Normal [facility] M100.678on 03-04-2024 M100.678 Pending SARS-CoV-2 (COVID 19) Negative INFLUENZA A Negative INFLUENZA B Negative RSV PCR Negative Normal [facility] Comment on above: Performed By: #### M 100.678 ####[facility] [address] [place], [address] T4 Free Directon 02-16-2024 T4 FREE DIRECT 1.01 ng/dL Normal 0.76-1.46 [facility] Comment on above: Performed By: #### L 503.0106, L100.0100 #### [facility] [address] [place], [address] Thyroid Stim Hormone (TSH)on 02-16-2024 TSH 2.020 uIU/mL Normal 0.358-3.740 [facility] Comment on above: Performed By: #### L 503.0106, L100.0100 #### [facility] [address] [facility] [place], [address] Culture, urineOrdered By: Sloan Espinoza on 04-03-2023 Bacteria identified Cx Nom (U) Mixed Gram Pos & Gram Neg Org [facility] Bacteria identified Cx Nom (U) Mixed Gram Pos & Gram Neg Org [facility] Glucose Glucometer (BldC) [M ass/Vol]Ordered By: Jodi Agee on 03-13-2023 Glucose [Mass/Vol] 186 mg/dL 74-106 [facility] Comment on above: MANAGEMENT OF PATIEN T CARE PER NURSING PROTOCOL Absolute lymphocyte countOrd ered By: Massiel Gibbons on 03-02-2023 Lymphocytes Auto (Unsp spec) [#/Vol] 2.72 10*3/uL 0.83-4.51 [facility] Basophil percentageOrdered B y: Massiel Gibbons on 03-02-2023 Basophils/100 WBC (Bld) 0.4 % 0-1 [facility] Cholesterol [Mass/Vol] 148 mg/dL <200 [facility] Comment on above: <200 mg/dL Desirable 200-240 mg/dL Borderline >240 mg/dL High Risk Eosinophils/100 WBC (Bld) 1.7 % 0-5 [facility] Neutrophils (Bld) [#/Vol] 3.6 10*3/uL 2.0-7.7 [facility] Neutrophils/100 WBC (Bld) 50.4 % 47-70 [facility] Triglyceride [Mass/Vol] 136 mg/dL <199 [facility] Comment on above: The drugs N-Acetylcy steine and Metamizole may falsely depress this assay.Serum Triglycerides Reference Interval Normal <150 mg/dL Borderline high 150 - 199 mg/dL High 200 - 499 mg/dL Very High > or = 500 mg/dL WBC (Bld) [#/Vol] 7.1 10*3/uL 4.4-11.0 [facility] Blood erythrocytes count (nu mber/volume)Ordered By: Massiel Gibbons on 03-02-2023 RBC (Bld) [#/Vol] 4.22 10*6/uL 4.2-5.4 [facility] Blood hemoglobin measurement (mass/volume)Ordered By: Massiel Gibbons on 03-02-2023 Hemoglobin (Bld) [Mass/Vol] 11.0 g/dL 12.0-15.0 [facility] Blood lymphocytes/100 leukoc ytesOrdered By: Massiel Gibbons on 03-02-2023 Lymphocytes/100 WBC (Bld) 38.5 % 19-41 [facility] Blood monocytes/100 leukocyt esOrdered By: Massiel Gibbons on 03-02-2023 Monocytes/100 WBC (Bld) 8.6 % 0-10 [facility] Blood platelet mean volumeOr dered By: Massiel Gibbons on 03-02-2023 Platelet mean volume (Bld) [Entitic vol] 9.8 fL 6.2-12.0 [facility] Determination of erythrocyte mean corpuscular volume (MCV)Ordered By: Massiel Gibbons on 03-02-2023 MCV (RBC) [Entitic vol] 83.2 fL 81-99 [facility] Hematocrit Auto (Bld) [Volum e fraction]Ordered By: Massiel Gibbons on 03-02-2023 Hematocrit (Bld) [Volume fraction] 35.1 % 37-47 [facility] Laboratory - Chemistry and C hemistry - challengeOrdered By: Massiel Gibbons on 03-02-2023 Free T4 [Mass/Vol] 0.83 ng/dL 0.76-1.46 [facility] - Hematology and Cell countsOrdered By: Massiel Gibbons on 03-02-2023 Erythrocyte distribution width (RBC) [Entitic vol] 41.3 fL 35.1-43.9 [facility] Erythrocyte distribution width (RBC) [Ratio] 13.7 % 11.6-14.6 [facility] Immature granulocytes/100 WBC (Bld) 0.400 % 0.0-0.9 [facility] Comment on above: IG% - Immature Granu locytes (promyelocytes, myelocytes and metamyelocytes) > 1% indicates that a LEFT SHIFT is Present. MCH (RBC) [Entitic mass] 26.1 pg 27.0-32.0 [facility] Nucleated RBC/100 WBC (Bld) [Ratio] 0 % 0-5 [facility] Laboratory - Hematology and Cell countson 03-02-2023 HbA1c (Bld) [Mass fraction] 7.3 % 4.2-6.3 [facility] MCHC Auto (RBC) [Mass/Vol]Or dered By: Massiel Gibbons on 03-02-2023 MCHC (RBC) [Mass/Vol] 31.3 g/dL 32-36 [facility] No Panel InformationOrdered By: Massiel Gibbons on 03-02-2023 Thyroid Stimulating Hormone (TSH) 2.85 uIU/mL 0.358-3.74 [facility] Platelets bldOrdered By: Griselda Gibbons on 03-02-2023 Platelets (Bld) [#/Vol] 284 10*3/uL 150-450 [facility] Serum or plasma cholesterol in HDL measurement (mass/volume)Ordered By: Massiel Gibbons on 03-02-2023 Cholesterol in HDL [Mass/Vol] 46 mg/dL >40 [facility] Comment on above: The drugs N-Acetylcy steine and Metamizole may falsely depress this assay. Reference Range HDL <40 mg/dL Low HDL Cholesterol HDL >or= 60 mg/dL High HDL Cholesterol Serum or plasma cholesterol in VLDL measurement (mass/volume)Ordered By: Massiel Gibbons on 03-02-2023 Cholesterol in VLDL [Mass/Vol] 27 mg/dL 5-40 [facility] Serum or plasma ferritin lizette surement (mass/volume)Ordered By: Massiel Gibbons on 03-02-2023 Ferritin [Mass/Vol] 23 ng/mL 8-252 [facility] Serum or plasma low density lipoprotein (LDL) cholesterol measurement (mass/volume)Ordered By: Massiel Gibbons on 03-02-2023 Cholesterol in LDL [Mass/Vol] 75 mg/dL 0-130 [facility] Blood hemoglobin measurement (mass/volume)Ordered By: Phu Espinoza on 02-08-2023 Hemoglobin (Bld) [Mass/Vol] 10.8 g/dL 12.0-15.0 [facility] Hematocrit Auto (Bld) [Volum e fraction]Ordered By: Phu Espinoza on 02-08-2023 Hematocrit (Bld) [Volume fraction] 33.9 % 37-47 [facility] Stool gastrointestinal hemog lobin detection by immunologic methodOrdered By: Phu Espinoza on 01-11-2023 Lower GI hemoglobin IA Ql (Stl) [facility] Lower GI hemoglobin IA Ql (Stl) [facility] Absolute lymphocyte countOrd ered By: Phu Espinoza on 01-09-2023 Lymphocytes Auto (Unsp spec) [#/Vol] 2.49 10*3/uL 0.83-4.51 [facility] Basophil percentageOrdered B y: Phu Espinoza on 01-09-2023 Basophils/100 WBC (Bld) 0.5 % 0-1 [facility] Eosinophils/100 WBC (Bld) 2.2 % 0-5 [facility] Neutrophils (Bld) [#/Vol] 4.3 10*3/uL 2.0-7.7 [facility] Neutrophils/100 WBC (Bld) 55.4 % 47-70 [facility] WBC (Bld) [#/Vol] 7.7 10*3/uL 4.4-11.0 [facility] Blood erythrocytes count (nu mber/volume)Ordered By: Phu Espinoza on 01-09-2023 RBC (Bld) [#/Vol] 4.35 10*6/uL 4.2-5.4 [facility] Blood hemoglobin measurement (mass/volume)Ordered By: Phu Espinoza on 01-09-2023 Hemoglobin (Bld) [Mass/Vol] 11.4 g/dL 12.0-15.0 [facility] Blood lymphocytes/100 leukoc ytesOrdered By: Phu Espinoza on 01-09-2023 Lymphocytes/100 WBC (Bld) 32.5 % 19-41 [facility] Blood monocytes/100 leukocyt esOrdered By: Phu Espinoza on 01-09-2023 Monocytes/100 WBC (Bld) 8.9 % 0-10 [facility] Blood platelet mean volumeOr dered By: Phu Espinoza on 01-09-2023 Platelet mean volume (Bld) [Entitic vol] 10.3 fL 6.2-12.0 [facility] Determination of erythrocyte mean corpuscular volume (MCV)Ordered By: Phu Espinoza on 01-09-2023 MCV (RBC) [Entitic vol] 85.5 fL 81-99 [facility] Hematocrit Auto (Bld) [Volum e fraction]Ordered By: Phu Espinoza on 01-09-2023 Hematocrit (Bld) [Volume fraction] 37.2 % 37-47 [facility] Hemoglobin in reticulocytes (mass per reticulocyte)Ordered By: Phu Espinoza on 01-09-2023 Hemoglobin (Reticulocytes) [Entitic mass] 29.3 pg 30-35 [facility] Iron measurement (mass/mass) Ordered By: Phu Espinoza on 01-09-2023 Iron (Unsp spec) [Mass/Mass] 44 ug/dL 50-170 [facility] Laboratory - Chemistry and C hemistry - challengeOrdered By: Phu Espinoza on 01-09-2023 Cobalamin (Vitamin B12) [Mass/Vol] 293 pg/mL 211-911 [facility] - Hematology and Cell countsOrdered By: Phu Espinoza on 01-09-2023 Erythrocyte distribution width (RBC) [Entitic vol] 41.7 fL 35.1-43.9 [facility] Erythrocyte distribution width (RBC) [Ratio] 13.3 % 11.6-14.6 [facility] Immature granulocytes/100 WBC (Bld) 0.500 % 0.0-0.9 [facility] Comment on above: IG% - Immature Granu locytes (promyelocytes, myelocytes and metamyelocytes) > 1% indicates that a LEFT SHIFT is Present. MCH (RBC) [Entitic mass] 26.2 pg 27.0-32.0 [facility] Nucleated RBC/100 WBC (Bld) [Ratio] 0 % 0-5 [facility] MCHC Auto (RBC) [Mass/Vol]Or dered By: Phu Espinoza on 01-09-2023 MCHC (RBC) [Mass/Vol] 30.6 g/dL 32-36 [facility] No Panel InformationOrdered By: Phu Espinoza on 01-09-2023 Immature Reticulocyte Fraction 27.90 % 3.00-15.90 [facility] Reticulocyte Count 2.36 % 0.5-1.5 [facility] Total Iron Binding Capacity 482 ug/dL 250-450 [facility] Platelets bldOrdered By: Phu Espinoza on 01-09-2023 Platelets (Bld) [#/Vol] 271 10*3/uL 150-450 [facility] Serum or plasma ferritin lizette surement (mass/volume)Ordered By: Phu Espinoza on 01-09-2023 Ferritin [Mass/Vol] 18 ng/mL 8-252 [facility] Serum or plasma folate measu rement (mass/volume)Ordered By: Phu Espinoza on 01-09-2023 Folate [Mass/Vol] 13.00 ng/mL 3.1-55.4 [facility] Serum or plasma iron saturat ion measurement (mass fraction)Ordered By: Phu Espinoza on 01-09-2023 Iron saturation [Mass fraction] 9.1 % 15.0-55.0 [facility] Absolute lymphocyte countOrd ered By: Phu Espinoza on 01-03-2023 Lymphocytes Auto (Unsp spec) [#/Vol] 2.77 10*3/uL 0.83-4.51 [facility] Basophil percentageOrdered B y: Phu Espinoza on 01-03-2023 Basophils/100 WBC (Bld) 0.5 % 0-1 [facility] Bilirubin [Mass/Vol] 0.30 mg/dL 0.20-1.00 [facility] Comment on above: For patients on eltr ombopag therapy, use of Dimension [place] TBIL is not recommended. Chloride [Moles/Vol] 105 mmol/L 98-107 [facility] Eosinophils/100 WBC (Bld) 1.4 % 0-5 [facility] Glucose [Mass/Vol] 137 mg/dL 74-106 [facility] Comment on above: Fasting Glucose resu lt greater than or equal to 126 mg/dL suggests DIABETES MELLITUS per A.D.A. criteria. Neutrophils (Bld) [#/Vol] 4.1 10*3/uL 2.0-7.7 [facility] Neutrophils/100 WBC (Bld) 53.4 % 47-70 [facility] Potassium [Moles/Vol] 4.3 mmol/L 3.5-5.1 [facility] Protein [Mass/Vol] 7.5 g/dL 6.4-8.2 [facility] Sodium [Moles/Vol] 140 mmol/L 136-145 [facility] WBC (Bld) [#/Vol] 7.7 10*3/uL 4.4-11.0 [facility] Blood erythrocytes count (nu mber/volume)Ordered By: Phu Espinoza on 01-03-2023 RBC (Bld) [#/Vol] 4.14 10*6/uL 4.2-5.4 [facility] Blood hemoglobin measurement (mass/volume)Ordered By: Phu Espinoza on 01-03-2023 Hemoglobin (Bld) [Mass/Vol] 10.8 g/dL 12.0-15.0 [facility] Blood lymphocytes/100 leukoc ytesOrdered By: Phu Espinoza on 01-03-2023 Lymphocytes/100 WBC (Bld) 36.0 % 19-41 [facility] Blood monocytes/100 leukocyt esOrdered By: Phu Espinoza on 01-03-2023 Monocytes/100 WBC (Bld) 8.3 % 0-10 [facility] Blood platelet mean volumeOr dered By: Phu Espinoza on 01-03-2023 Platelet mean volume (Bld) [Entitic vol] 10.2 fL 6.2-12.0 [facility] Determination of erythrocyte mean corpuscular volume (MCV)Ordered By: Phu Espinoza on 01-03-2023 MCV (RBC) [Entitic vol] 83.6 fL 81-99 [facility] Hematocrit Auto (Bld) [Volum e fraction]Ordered By: [facility] Alexis on 01-03-2023 Hematocrit (Bld) [Volume fraction] 34.6 % 37-47 [facility] Laboratory - Chemistry and C hemistry - challengeOrdered By: [facility] 01-03-2023 ALP [Catalytic activity/Vol] 50 U/L 45-117 [facility] ALT [Catalytic activity/Vol] 31 U/L 13-56 [facility] CO2 [Moles/Vol] 26.0 mmol/L 21.0-32.0 [facility] Globulin (S) [Mass/Vol] 3.8 g/dL 2.2-4.2 [facility] Urea nitrogen/Creatinine [Mass ratio] 17.8 mg/mg 10-20 [facility] - Hematology and Cell countsOrdered By: [facility] Alexis 01-03-2023 Erythrocyte distribution width (RBC) [Entitic vol] 40.8 fL 35.1-43.9 [facility] Erythrocyte distribution width (RBC) [Ratio] 13.4 % 11.6-14.6 [facility] Immature granulocytes/100 WBC (Bld) 0.400 % 0.0-0.9 [facility] Comment on above: IG% - Immature Granu locytes (promyelocytes, myelocytes and metamyelocytes) > 1% indicates that a LEFT SHIFT is Present. MCH (RBC) [Entitic mass] 26.1 pg 27.0-32.0 [facility] Nucleated RBC/100 WBC (Bld) [Ratio] 0 % 0-5 [facility] MCHC Auto (RBC) [Mass/Vol]Or dered By: Phu Alexis on 01-03-2023 MCHC (RBC) [Mass/Vol] 31.2 g/dL 32-36 [facility] No Panel InformationOrdered By: Phu Espinoza on 01-03-2023 Estimated GFR (MDRD) Amer 62 mL/min >60 [facility] Comment on above: GFR Calc Estimated GFR (MDRD) Non-Af Amer 51 mL/min >60 [facility] Comment on above: Non- GFR Calc Thyroid Stimulating Hormone (TSH) 6.16 uIU/mL 0.358-3.74 [facility] Platelets bldOrdered By: Phu Espinoza on 01-03-2023 Platelets (Bld) [#/Vol] 261 10*3/uL 150-450 [facility] Serum or plasma albumin thiago urement (mass/volume)Ordered By: Phu Espinoza on 01-03-2023 Albumin [Mass/Vol] 3.7 g/dL 3.2-5.0 [facility] Serum or plasma albumin/glob ulin mass ratioOrdered By: Phu Espinoza on 01-03-2023 Albumin/Globulin [Mass ratio] 1.0 {ratio} 0.9-2.4 [facility] Serum or plasma calcium thiago urement (mass/volume)Ordered By: Phu Espinoza on 01-03-2023 Calcium [Mass/Vol] 9.0 mg/dL 8.5-10.1 [facility] Serum or plasma creatinine m easurement (mass/volume)Ordered By: Phu Espinoza on 01-03-2023 Creatinine [Mass/Vol] 1.18 mg/dL 0.55-1.02 [facility] Comment on above: The validity of the calculated GFR & GFRAA in patients over 70 years has not been determined. Clinical correlation is essential. Serum or plasma urea nitroge n measurement (mass/volume)Ordered By: Phu Espinoza on 01-03-2023 Urea nitrogen [Mass/Vol] 21 mg/dL 7-18 [facility] Thin prep Papanicolaou smear with manual screeningOrdered By: Phu Espinoza on 01-03-2023 Thin prep Papanicolaou smear with manual screening 30 U/L 15-37 [facility] Thin prep Papanicolaou smear with manual screening 9 5-15 [facility] Laboratory - Hematology and Cell countson 11-17-2022 HbA1c (Bld) [Mass fraction] 7.1 % 4.2-6.3 [facility] Basophil percentageOrdered B y: Massiel Gibbons on 08-17-2022 Bilirubin [Mass/Vol] 0.70 mg/dL 0.20-1.00 [facility] Comment on above: For patients on eltr ombopag therapy, use of Dimension [place] TBIL is not recommended. Chloride [Moles/Vol] 105 mmol/L 98-107 [facility] Glucose [Mass/Vol] 167 mg/dL 74-106 [facility] Comment on above: Fasting Glucose resu lt greater than or equal to 126 mg/dL suggests DIABETES MELLITUS per A.D.A. criteria. Potassium [Moles/Vol] 4.3 mmol/L 3.5-5.1 [facility] Protein [Mass/Vol] 8.1 g/dL 6.4-8.2 [facility] Sodium [Moles/Vol] 138 mmol/L 136-145 [facility] Laboratory - Chemistry and C hemistry - challengeOrdered By: Massiel Gibbons on 08-17-2022 ALP [Catalytic activity/Vol] 54 U/L 45-117 [facility] ALT [Catalytic activity/Vol] 31 U/L 13-56 [facility] CO2 [Moles/Vol] 26.0 mmol/L 21.0-32.0 [facility] Globulin (S) [Mass/Vol] 4.2 g/dL 2.2-4.2 [facility] Urea nitrogen/Creatinine [Mass ratio] 25.2 mg/mg 10-20 [facility] No Panel InformationOrdered By: Massiel Gibbons on 08-17-2022 Estimated GFR (MDRD) Amer 72 mL/min >60 [facility] Comment on above: GFR Calc Estimated GFR (MDRD) Non-Af Amer 60 mL/min >60 [facility] Comment on above: Non- GFR Calc Thyroid Stimulating Hormone (TSH) 3.80 uIU/mL 0.358-3.74 [facility] Serum or plasma albumin thiago urement (mass/volume)Ordered By: Massiel Gibbons on 08-17-2022 Albumin [Mass/Vol] 3.9 g/dL 3.2-5.0 [facility] Serum or plasma albumin/glob ulin mass ratioOrdered By: Massiel Gibbons on 08-17-2022 Albumin/Globulin [Mass ratio] 0.9 {ratio} 0.9-2.4 [facility] Serum or plasma calcium thiago urement (mass/volume)Ordered By: Massiel Gibbons on 08-17-2022 Calcium [Mass/Vol] 10.0 mg/dL 8.5-10.1 [facility] Serum or plasma creatinine m easurement (mass/volume)Ordered By: Massiel Gibbons on 08-17-2022 Creatinine [Mass/Vol] 1.03 mg/dL 0.55-1.02 [facility] Comment on above: The validity of the calculated GFR & GFRAA in patients over 70 years has not been determined. Clinical correlation is essential. Serum or plasma urea nitroge n measurement (mass/volume)Ordered By: Massiel Gibbons on 08-17-2022 Urea nitrogen [Mass/Vol] 26 mg/dL 7-18 [facility] Thin prep Papanicolaou smear with manual screeningOrdered By: Massiel Gibbons on 08-17-2022 Thin prep Papanicolaou smear with manual screening 28 U/L 15-37 [facility] Thin prep Papanicolaou smear with manual screening 7 5-15 [facility] Absolute lymphocyte countOrd ered By: Dr. Espinoza on 06-28-2022 Lymphocytes Auto (Unsp spec) [#/Vol] 2.68 10*3/uL 0.83-4.51 [facility] Basophil percentageOrdered B y: Dr. Espinoza on 06-28-2022 Basophils/100 WBC (Bld) 0.7 % 0-1 [facility] Bilirubin [Mass/Vol] 0.30 mg/dL 0.20-1.00 [facility] Comment on above: For patients on eltr ombopag therapy, use of Dim[place] TBIL is not recommended. Chloride [Moles/Vol] 107 mmol/L 98-107 [facility] Eosinophils/100 WBC (Bld) 2.4 % 0-5 [facility] Glucose [Mass/Vol] 138 mg/dL 74-106 [facility] Comment on above: Fasting Glucose resu lt greater than or equal to 126 mg/dL suggests DIABETES MELLITUS per A.D.A. criteria. Neutrophils (Bld) [#/Vol] 3.8 10*3/uL 2.0-7.7 [facility] Neutrophils/100 WBC (Bld) 50.6 % 47-70 [facility] Potassium [Moles/Vol] 4.1 mmol/L 3.5-5.1 [facility] Protein [Mass/Vol] 8.0 g/dL 6.4-8.2 [facility] Sodium [Moles/Vol] 139 mmol/L 136-145 [facility] WBC (Bld) [#/Vol] 7.4 10*3/uL 4.4-11.0 [facility] Blood erythrocytes count (nu mber/volume)Ordered By: Dr. Espinoza on 06-28-2022 RBC (Bld) [#/Vol] 4.33 10*6/uL 4.2-5.4 [facility] Blood hemoglobin measurement (mass/volume)Ordered By: Dr. Espinoza on 06-28-2022 Hemoglobin (Bld) [Mass/Vol] 11.4 g/dL 12.0-15.0 [facility] Blood lymphocytes/100 leukoc ytesOrdered By: Dr. Espinoza on 06-28-2022 Lymphocytes/100 WBC (Bld) 36.1 % 19-41 [facility] Blood monocytes/100 leukocyt esOrdered By: Dr. Espinoza on 06-28-2022 Monocytes/100 WBC (Bld) 9.8 % 0-10 [facility] Blood platelet mean volumeOr dered By: Dr. Espinoza on 06-28-2022 Platelet mean volume (Bld) [Entitic vol] 10.1 fL 6.2-12.0 [facility] Determination of erythrocyte mean corpuscular volume (MCV)Ordered By: Dr. Espinoza on 06-28-2022 MCV (RBC) [Entitic vol] 83.6 fL 81-99 [facility] Hematocrit Auto (Bld) [Volum e fraction]Ordered By: Dr. Espinoza on 06-28-2022 Hematocrit (Bld) [Volume fraction] 36.2 % 37-47 [facility] Laboratory - Chemistry and C hemistry - challengeOrdered By: Dr. Espinoza on 06-28-2022 ALP [Catalytic activity/Vol] 52 U/L 45-117 [facility] ALT [Catalytic activity/Vol] 29 U/L 13-56 [facility] CO2 [Moles/Vol] 28.0 mmol/L 21.0-32.0 [facility] Globulin (S) [Mass/Vol] 4.2 g/dL 2.2-4.2 [facility] Urea nitrogen/Creatinine [Mass ratio] 21.7 mg/mg 10-20 [facility] Laboratory - Hematology and Cell countsOrdered By: Dr. Espinoza on 06-28-2022 Erythrocyte distribution width (RBC) [Entitic vol] 43.9 fL 35.1-43.9 [facility] Erythrocyte distribution width (RBC) [Ratio] 14.4 % 11.6-14.6 [facility] Immature granulocytes/100 WBC (Bld) 0.400 % 0.0-0.9 [facility] Comment on above: IG% - Immature Granu locytes (promyelocytes, myelocytes and metamyelocytes) > 1% indicates that a LEFT SHIFT is Present. MCH (RBC) [Entitic mass] 26.3 pg 27.0-32.0 [facility] Nucleated RBC/100 WBC (Bld) [Ratio] 0 % 0-5 [facility] MCHC Auto (RBC) [Mass/Vol]Or dered By: Dr. Espinoza on 06-28-2022 MCHC (RBC) [Mass/Vol] 31.5 g/dL 32-36 [facility] No Panel InformationOrdered By: Dr. Espinoza on 06-28-2022 Estimated GFR (MDRD) Amer 56 mL/min >60 [facility] Comment on above: GFR Calc Estimated GFR (MDRD) Non-Af Amer 46 mL/min >60 [facility] Comment on above: Non- GFR Calc Thyroid Stimulating Hormone (TSH) 4.74 uIU/mL 0.358-3.74 [facility] Platelets bldOrdered By: Dr. Espinoza on 06-28-2022 Platelets (Bld) [#/Vol] 292 10*3/uL 150-450 [facility] Serum or plasma albumin thiago urement (mass/volume)Ordered By: Dr. Espinoza on 06-28-2022 Albumin [Mass/Vol] 3.8 g/dL 3.2-5.0 [facility] Serum or plasma albumin/glob ulin mass ratioOrdered By: Dr. Espinoza on 06-28-2022 Albumin/Globulin [Mass ratio] 0.9 {ratio} 0.9-2.4 [facility] Serum or plasma calcium thiago urement (mass/volume)Ordered By: Dr. Espinoza on 06-28-2022 Calcium [Mass/Vol] 9.2 mg/dL 8.5-10.1 [facility] Serum or plasma creatinine m easurement (mass/volume)Ordered By: Dr. Espinoza on 06-28-2022 Creatinine [Mass/Vol] 1.29 mg/dL 0.55-1.02 [facility] Comment on above: The validity of the calculated GFR & GFRAA in patients over 70 years has not been determined. Clinical correlation is essential. Serum or plasma urea nitroge n measurement (mass/volume)Ordered By: Dr. Espinoza on 06-28-2022 Urea nitrogen [Mass/Vol] 28 mg/dL 7-18 [facility] Thin prep Papanicolaou smear with manual screeningOrdered By: Dr. Espinoza on 06-28-2022 Thin prep Papanicolaou smear with manual screening 20 U/L 15-37 [facility] Thin prep Papanicolaou smear with manual screening 4 5-15 [facility] Laboratory - Hematology and Cell countson 05-11-2022 HbA1c (Bld) [Mass fraction] 7.6 % [facility] Basophil percentageon 2021 Bilirubin [Mass/Vol] 0.20 mg/dL 0.20-1.00 [facility] Work Phone: Comment on above: For patients on eltr ombopag therapy, use of Dim[place] TBIL is not recommended. Chloride [Moles/Vol] 107 mmol/L 98-107 [facility] Work Phone: Glucose [Mass/Vol] 137 mg/dL 74-106 [facility] Work Phone: Comment on above: Fasting Glucose resu lt greater than or equal to 126 mg/dL suggests DIABETES MELLITUS per A.D.A. criteria. Potassium [Moles/Vol] 3.5 mmol/L 3.5-5.1 [facility] Work Phone: [phone] Protein [Mass/Vol] 7.2 g/dL 6.4-8.2 [facility] Work Phone: Sodium [Moles/Vol] 142 mmol/L 136-145 [facility] Work Phone: Laboratory - Chemistry and C hemistry - challengeon 02-08-2022 ALP [Catalytic activity/Vol] 65 U/L 45-117 [facility] Work Phone: ALT [Catalytic activity/Vol] 45 U/L 13-56 [facility] Work Phone: CO2 [Moles/Vol] 26.0 mmol/L 21.0-32.0 [facility] Work Phone: Globulin (S) [Mass/Vol] 3.8 g/dL 2.2-4.2 [facility] Work Phone: [phone] Urea nitrogen/Creatinine [Mass ratio] 13.8 mg/mg 10-20 [facility] Work Phone: No Panel Informationon 02-08 Estimated GFR (MDRD) Amer 88 mL/min >60 [facility] Work Phone: Comment on above: GFR Calc Estimated GFR (MDRD) Non-Af Amer 73 mL/min >60 [facility] Work Phone: Comment on above: Non- GFR Calc Hepatitis A IgM Antibody Negative Negative [facility] Work Phone: Hepatitis B Core IgM Antibody Negative Negative [facility] Work Phone: [phone] Hepatitis C Antibody (EIA) 0.1 s/co ratio 0.0-0.9 [facility] Work Phone: [phone] Hepatitis C Antibody Comment Comment . [facility] Work Phone: Comment on above: NegativeNot infected with HCV, unless recent infection issuspected or other evidence exists to indicate HCVinfection.Performed at: [place] [id number] Director: Spencer Carbajal PhD, Phone: [phone] Serum or plasma albumin thiago urement (mass/volume)on 02-08-2022 Albumin [Mass/Vol] 3.4 g/dL 3.2-5.0 [facility] Work Phone: [phone] Serum or plasma albumin/glob ulin mass ratioon 02-08-2022 Albumin/Globulin [Mass ratio] 0.9 {ratio} 0.9-2.4 [facility] Work Phone: [phone] Serum or plasma calcium thiago urement (mass/volume)on 02-08-2022 Calcium [Mass/Vol] 8.0 mg/dL 8.5-10.1 [facility] Work Phone: [phone] Serum or plasma creatinine m easurement (mass/volume)on 02-08-2022 Creatinine [Mass/Vol] 0.87 mg/dL 0.55-1.02 [facility] Work Phone: [phone] Comment on above: The validity of the calculated GFR & GFRAA in patients over 70 years has not been determined. Clinical correlation is essential. Serum or plasma hepatitis B virus surface antigen detection by immunoassayon 02-08-2022 HBV surface Ag IA Ql Negative Negative [facility] Work Phone: [phone] Serum or plasma urea nitroge n measurement (mass/volume)on 02-08-2022 Urea nitrogen [Mass/Vol] 12 mg/dL 7-18 [facility] Work Phone: [phone] Thin prep Papanicolaou smear with manual screeningon 02-08-2022 Thin prep Papanicolaou smear with manual screening 25 U/L 15-37 [facility] Work Phone: [phone] Thin prep Papanicolaou smear with manual screening 9 5-15 [facility] Work Phone: [phone] Absolute lymphocyte counton 02-05-2022 Lymphocytes Auto (Unsp spec) [#/Vol] 2.34 10*3/uL 0.83-4.51 [facility] Work Phone: [phone] Basophil percentageon 2021 Basophils/100 WBC (Bld) 0.2 % 0-1 [facility] Work Phone: Bilirubin [Mass/Vol] 0.30 mg/dL 0.20-1.00 [facility] Work Phone: Comment on above: For patients on eltr ombopag therapy, use of Dimension [place] TBIL is not recommended. Chloride [Moles/Vol] 110 mmol/L 98-107 [facility] Work Phone: Eosinophils/100 WBC (Bld) 4.4 % 0-5 [facility] Work Phone: Glucose [Mass/Vol] 123 mg/dL 74-106 [facility] Work Phone: Comment on above: Fasting Glucose resu lt from 100 to 125 mg/dL suggests IMPAIRED HOMEOSTASIS per A.D.A. criteria. Neutrophils (Bld) [#/Vol] 1.7 10*3/uL 2.0-7.7 [facility] Work Phone: Neutrophils/100 WBC (Bld) 33.8 % 47-70 [facility] Work Phone: Potassium [Moles/Vol] 3.4 mmol/L 3.5-5.1 [facility] Work Phone: Protein [Mass/Vol] 5.9 g/dL 6.4-8.2 [facility] Work Phone: Sodium [Moles/Vol] 143 mmol/L 136-145 [facility] Work Phone: WBC (Bld) [#/Vol] 5.0 10*3/uL 4.4-11.0 [facility] Work Phone: Blood erythrocytes count (nu mber/volume)on 02-05-2022 RBC (Bld) [#/Vol] 3.91 10*6/uL 4.2-5.4 [facility] Work Phone: Blood hemoglobin measurement (mass/volume)on 02-05-2022 Hemoglobin (Bld) [Mass/Vol] 10.0 g/dL 12.0-15.0 [facility] Work Phone: Blood lymphocytes/100 leukoc yteson 02-05-2022 Lymphocytes/100 WBC (Bld) 47.3 % 19-41 [facility] Work Phone: Blood monocytes/100 leukocyt eson 02-05-2022 Monocytes/100 WBC (Bld) 13.9 % 0-10 [facility] Work Phone: [phone] Blood platelet mean volumeon 02-05-2022 Platelet mean volume (Bld) [Entitic vol] 10.1 fL 6.2-12.0 [facility] Work Phone: Determination of erythrocyte mean corpuscular volume (MCV)on 02-05-2022 MCV (RBC) [Entitic vol] 82.6 fL 81-99 [facility] Work Phone: Direct bilirubinon Bilirubin.direct [Mass/Vol] 0.15 mg/dL 0.00-0.30 [facility] Work Phone: Glucose Glucometer (BldC) [M ass/Vol]on 02-05-2022 Glucose [Mass/Vol] 133 mg/dL 74-106 [facility] Work Phone: Comment on above: MANAGEMENT OF PATIEN T CARE PER NURSING PROTOCOL Hematocrit Auto (Bld) [Volum e fraction]on 02-05-2022 Hematocrit (Bld) [Volume fraction] 32.3 % 37-47 [facility] Work Phone: Laboratory - Chemistry and C hemistry - challengeon 02-05-2022 ALP [Catalytic activity/Vol] 50 U/L 45-117 [facility] Work Phone: ALT [Catalytic activity/Vol] 72 U/L 13-56 [facility] Work Phone: [phone] CO2 [Moles/Vol] 30.0 mmol/L 21.0-32.0 [facility] Work Phone: Globulin (S) [Mass/Vol] 3.2 g/dL 2.2-4.2 [facility] Work Phone: [phone] Urea nitrogen/Creatinine [Mass ratio] 12.4 mg/mg 10-20 [facility] Work Phone: [phone] Laboratory - Hematology and Cell countson 02-05-2022 Erythrocyte distribution width (RBC) [Entitic vol] 41.7 fL 35.1-43.9 [facility] Work Phone: [phone] Erythrocyte distribution width (RBC) [Ratio] 14.0 % 11.6-14.6 [facility] Work Phone: [phone] Immature granulocytes/100 WBC (Bld) 0.400 % 0.0-0.9 [facility] Work Phone: [phone] Comment on above: IG% - Immature Granu locytes (promyelocytes, myelocytes and metamyelocytes) > 1% indicates that a LEFT SHIFT is Present. MCH (RBC) [Entitic mass] 25.6 pg 27.0-32.0 [facility] Work Phone: [phone] Nucleated RBC/100 WBC (Bld) [Ratio] 0 % 0-5 [facility] Work Phone: [phone] MCHC Auto (RBC) [Mass/Vol]on 02-05-2022 MCHC (RBC) [Mass/Vol] 31.0 g/dL 32-36 [facility] Work Phone: [phone] Comment on above: Delta: 33.0 on 02/04 No Panel Informationon 02-05 Estimated Creatinine Clearance Calc 72.72 ml/min [facility] Work Phone: [phone] Estimated GFR (MDRD) Amer 86 mL/min >60 [facility] Work Phone: [phone] Comment on above: GFR Calc Estimated GFR (MDRD) Non-Af Amer 71 mL/min >60 [facility] Work Phone: [phone] Comment on above: Non- GFR Calc Platelets bldon 02-05-2022 Platelets (Bld) [#/Vol] 190 10*3/uL 150-450 [facility] Work Phone: [phone] Serum or plasma albumin thiago urement (mass/volume)on 02-05-2022 Albumin [Mass/Vol] 2.7 g/dL 3.2-5.0 [facility] Work Phone: [phone] Serum or plasma calcium thiago urement (mass/volume)on 02-05-2022 Calcium [Mass/Vol] 7.8 mg/dL 8.5-10.1 [facility] Work Phone: [phone] Serum or plasma creatinine m easurement (mass/volume)on 02-05-2022 Creatinine [Mass/Vol] 0.89 mg/dL 0.55-1.02 [facility] Work Phone: Comment on above: The validity of the calculated GFR & GFRAA in patients over 70 years has not been determined. Clinical correlation is essential. Serum or plasma urea nitroge n measurement (mass/volume)on 02-05-2022 Urea nitrogen [Mass/Vol] 11 mg/dL 7-18 [facility] Work Phone: [phone] Thin prep Papanicolaou smear with manual screeningon 02-05-2022 Thin prep Papanicolaou smear with manual screening 53 U/L 15-37 [facility] Work Phone: [phone] Thin prep Papanicolaou smear with manual screening 3 5-15 [facility] Work Phone: [phone] Iron measurement (mass/mass) on 02-04-2022 Iron (Unsp spec) [Mass/Mass] 29 ug/dL 50-170 [facility] Work Phone: [phone] Panel Informationon 02-04 Total Iron Binding Capacity 373 ug/dL 250-450 [facility] Work Phone: [phone] Serum or plasma albumin/glob ulin mass ratioon 02-04-2022 Albumin/Globulin [Mass ratio] 0.9 {ratio} 0.9-2.4 [facility] Work Phone: [phone] Serum or plasma ferritin lizette surement (mass/volume)on 02-04-2022 Ferritin [Mass/Vol] 36 ng/mL 8-252 [facility] Work Phone: Serum or plasma iron saturat ion measurement (mass fraction)on 02-04-2022 Iron saturation [Mass fraction] 7.8 % 15.0-55.0 [facility] Work Phone: Absolute lymphocyte counton 02-03-2022 Lymphocytes Auto (Unsp spec) [#/Vol] 0.92 10*3/uL 0.83-4.51 [facility] Work Phone: Basophil percentageon 2021 Basophil percentage 0-5 SEEN /hpf 0-5 [facility] Work Phone: Basophils/100 WBC (Bld) 0.1 % 0-1 [facility] Work Phone: Bilirubin [Mass/Vol] 0.50 mg/dL 0.20-1.00 [facility] Work Phone: Comment on above: For patients on eltr ombopag therapy, use of Dimension [place] TBIL is not recommended. Chloride [Moles/Vol] 106 mmol/L 98-107 [facility] Work Phone: Eosinophils/100 WBC (Bld) 2.0 % 0-5 [facility] Work Phone: Glucose [Mass/Vol] 141 mg/dL 74-106 [facility] Work Phone: Comment on above: Fasting Glucose resu lt greater than or equal to 126 mg/dL suggests DIABETES MELLITUS per A.D.A. criteria. Lactate [Moles/Vol] 1.3 mmol/L 0.4-2.0 [facility] Work Phone: Neutrophils (Bld) [#/Vol] 7.0 10*3/uL 2.0-7.7 [facility] Work Phone: Neutrophils/100 WBC (Bld) 81.0 % 47-70 [facility] Work Phone: Potassium [Moles/Vol] 4.1 mmol/L 3.5-5.1 [facility] Work Phone: Protein [Mass/Vol] 7.2 g/dL 6.4-8.2 [facility] Work Phone: Sodium [Moles/Vol] 140 mmol/L 136-145 [facility] Work Phone: WBC (Bld) [#/Vol] 8.6 10*3/uL 4.4-11.0 [facility] Work Phone: Beta hCG serum qualon 2021 Beta HCG ( test) Ql Negative [facility] Work Phone: Bilirubin Test strip Ql (U)o n 02-03-2022 Bilirubin Ql (U) Negative Negative [facility] Work Phone: Blood erythrocytes count (nu mber/volume)on 02-03-2022 RBC (Bld) [#/Vol] 4.48 10*6/uL 4.2-5.4 [facility] Work Phone: Blood hemoglobin measurement (mass/volume)on 02-03-2022 Hemoglobin (Bld) [Mass/Vol] 11.5 g/dL 12.0-15.0 [facility] Work Phone: Blood lymphocytes/100 leukoc yteson 02-03-2022 Lymphocytes/100 WBC (Bld) 10.7 % 19-41 [facility] Work Phone: Blood monocytes/100 leukocyt eson 02-03-2022 Monocytes/100 WBC (Bld) 5.9 % 0-10 [facility] Work Phone: Blood platelet mean volumeon 02-03-2022 Platelet mean volume (Bld) [Entitic vol] 10.0 fL 6.2-12.0 [facility] Work Phone: Determination of erythrocyte mean corpuscular volume (MCV)on 02-03-2022 MCV (RBC) [Entitic vol] 80.4 fL 81-99 [facility] Work Phone: Hematocrit Auto (Bld) [Volum e fraction]on 02-03-2022 Hematocrit (Bld) [Volume fraction] 36.0 % 37-47 [facility] Work Phone: INR in Blood by Coagulation assayon 02-03-2022 INR Coag (Bld) [Relative time] 1.1 {INR} [facility] Work Phone: Ketones Test strip Ql (U)on 02-03-2022 Ketones Ql (U) 5 mg/dl Negative [facility] Work Phone: Laboratory - Chemistry and C hemistry - challengeon 02-03-2022 ALP [Catalytic activity/Vol] 50 U/L 45-117 [facility] Work Phone: ALT [Catalytic activity/Vol] 25 U/L 13-56 [facility] Work Phone: CO2 [Moles/Vol] 24.0 mmol/L 21.0-32.0 [facility] Work Phone: Globulin (S) [Mass/Vol] 3.7 g/dL 2.2-4.2 [facility] Work Phone: Lipase [Catalytic activity/Vol] 382 U/L 73-393 [facility] Work Phone: Urea nitrogen/Creatinine [Mass ratio] 19.4 mg/mg 10-20 [facility] Work Phone: Laboratory - Coagulationon 04-05-2021 aPTT Coag (Bld) [Time] 28.7 s 24.1-36.2 [facility] Work Phone: PT Coag (PPP) [Time] 13.5 s 11.7-14.9 [facility] Work Phone: Laboratory - Hematology and Cell countson 02-03-2022 Erythrocyte distribution width (RBC) [Entitic vol] 38.9 fL 35.1-43.9 [facility] Work Phone: Erythrocyte distribution width (RBC) [Ratio] 13.4 % 11.6-14.6 [facility] Work Phone: Immature granulocytes/100 WBC (Bld) 0.300 % 0.0-0.9 [facility] Work Phone: Comment on above: IG% - Immature Granu locytes (promyelocytes, myelocytes and metamyelocytes) > 1% indicates that a LEFT SHIFT is Present. MCH (RBC) [Entitic mass] 25.7 pg 27.0-32.0 [facility] Work Phone: Nucleated RBC/100 WBC (Bld) [Ratio] 0 % 0-5 [facility] Work Phone: MCHC Auto (RBC) [Mass/Vol]on 02-03-2022 MCHC (RBC) [Mass/Vol] 31.9 g/dL 32-36 [facility] Work Phone: Mucus LM Ql (Urine sed)on Mucus Ql (Urine sed) 0 SEEN /hpf [facility] Work Phone: Nitrite Test strip Ql (U)on 02-03-2022 Nitrite Ql (U) Negative Negative [facility] Work Phone: No Panel Informationon 02-03 Estimated Creatinine Clearance Calc 73.55 ml/min [facility] Work Phone: Estimated GFR (MDRD) Amer 87 mL/min >60 [facility] Work Phone: Comment on above: GFR Calc Estimated GFR (MDRD) Non-Af Amer 72 mL/min >60 [facility] Work Phone: Comment on above: Non- GFR Calc Platelets bldon 02-03-2022 Platelets (Bld) [#/Vol] 222 10*3/uL 150-450 [facility] Work Phone: Protein Test strip Ql (U)on 02-03-2022 Protein Ql (U) 30 mg/dl Negative [facility] Work Phone: Serum heterophile antibody d etectionon 02-03-2022 Heterophile Ab Ql (S) Negative Negative [facility] Work Phone: [phone] Serum or plasma albumin thiago urement (mass/volume)on 02-03-2022 Albumin [Mass/Vol] 3.5 g/dL 3.2-5.0 [facility] Work Phone: Serum or plasma albumin/glob ulin mass ratioon 02-03-2022 Albumin/Globulin [Mass ratio] 0.9 {ratio} 0.9-2.4 [facility] Work Phone: Serum or plasma calcium thiago urement (mass/volume)on 02-03-2022 Calcium [Mass/Vol] 8.8 mg/dL 8.5-10.1 [facility] Work Phone: Serum or plasma creatinine m easurement (mass/volume)on 02-03-2022 Creatinine [Mass/Vol] 0.88 mg/dL 0.55-1.02 [facility] Work Phone: Comment on above: The validity of the calculated GFR & GFRAA in patients over 70 years has not been determined. Clinical correlation is essential. Serum or plasma urea nitroge n measurement (mass/volume)on 02-03-2022 Urea nitrogen [Mass/Vol] 17 mg/dL 7-18 [facility] Work Phone: Serum procalcitonin measurem enton 02-03-2022 Procalcitonin [Mass/Vol] 0.08 ng/mL 0.00-0.09 [facility] Work Phone: Comment on above: A [...] Ql (Urine sed) 0-5 SEEN /hpf 5-10 [facility] Work Phone: Thin prep Papanicolaou smear with manual screeningon 02-03-2022 Thin prep Papanicolaou smear with manual screening 23 U/L 15-37 [facility] Work Phone: [phone] Thin prep Papanicolaou smear with manual screening 10 5-15 [facility] Work Phone: Urine blood detectionon 01-25 RBC Ql (U) Negative Negative [facility] Work Phone: [phone] RBC Ql (U) 0 SEEN /hpf 0-5 [facility] Work Phone: Urine clarityon 02-03-2022 Clarity (U) Sl. Cloudy Clear [facility] Work Phone: Urine color determinationon 02-03-2022 Color (U) Yellow Yellow [facility] Work Phone: Urine glucose detectionon Glucose Ql (U) Normal mg/dl Normal [facility] Work Phone: Urine leukocyte esterase det ection by dipstickon 02-03-2022 Leukocyte esterase Test strip Ql (U) 25 /ul Negative [facility] Work Phone: Urine pHon 02-03-2022 pH (U) 8.0 [pH] 5.0 - 8.0 [facility] Work Phone: Urine sediment bacteria coun t by microscopy (number/high power field)on 02-03-2022 Bacteria LM.HPF (Urine sed) [#/Area] RARE /hpf None Seen [facility] Work Phone: Urine specific gravity measu rementon 02-03-2022 Specific gravity (U) [Rel density] 1.010 1.002-1.030 [facility] Work Phone: Urobilinogen Auto test strip Ql (U)on 02-03-2022 Urobilinogen Ql (U) Normal mg/dl Normal [facility] Work Phone: Absolute lymphocyte counton 12-21-2021 Lymphocytes Auto (Unsp spec) [#/Vol] 2.78 10*3/uL 0.83-4.51 [facility] Work Phone: Basophil percentageon 2021 Basophils/100 WBC (Bld) 0.5 % 0-1 [facility] Work Phone: Bilirubin [Mass/Vol] 0.40 mg/dL 0.20-1.00 [facility] Work Phone: Comment on above: For patients on eltr ombopag therapy, use of Dimension [place] TBIL is not recommended. Chloride [Moles/Vol] 106 mmol/L 98-107 [facility] Work Phone: Eosinophils/100 WBC (Bld) 2.2 % 0-5 [facility] Work Phone: Glucose [Mass/Vol] 145 mg/dL 74-106 [facility] Work Phone: Comment on above: Fasting Glucose resu lt greater than or equal to 126 mg/dL suggests DIABETES MELLITUS per A.D.A. criteria. Neutrophils (Bld) [#/Vol] 4.7 10*3/uL 2.0-7.7 [facility] Work Phone: Neutrophils/100 WBC (Bld) 56.6 % 47-70 [facility] Work Phone: Potassium [Moles/Vol] 4.2 mmol/L 3.5-5.1 [facility] Work Phone: Protein [Mass/Vol] 7.9 g/dL 6.4-8.2 [facility] Work Phone: Sodium [Moles/Vol] 141 mmol/L 136-145 [facility] Work Phone: [phone] WBC (Bld) [#/Vol] 8.2 10*3/uL 4.4-11.[address] [facility] Work Phone: Blood erythrocytes count (nu mber/volume)on 12-21-2021 RBC (Bld) [#/Vol] 4.41 10*6/uL [facility].2-5.[facility]: Blood hemoglobin measurement (mass/volume)on 12-21-2021 Hemoglobin (Bld) [Mass/Vol] 11.8 g/dL 12.0-15.0 [facility] Work Phone: Blood lymphocytes/100 leukoc yteson 12-21-2021 Lymphocytes/100 WBC (Bld) 33.7 % 19-41 [facility] Work Phone: Blood monocytes/100 leukocyt eson 12-21-2021 Monocytes/100 WBC (Bld) 6.8 % 0-10 [facility] Work Phone: Blood platelet mean volumeon 12-21-2021 Platelet mean volume (Bld) [Entitic vol] 10.6 fL 6.2-12.0 [facility] Work Phone: Determination of erythrocyte mean corpuscular volume (MCV)on 12-21-2021 MCV (RBC) [Entitic vol] 80.7 fL 81-99 [facility] Work Phone: Hematocrit Auto (Bld) [Volum e fraction]on 12-21-2021 Hematocrit (Bld) [Volume fraction] 35.6 % 37-47 [facility] Work Phone: Laboratory - Chemistry and C hemistry - challengeon 12-21-2021 ALP [Catalytic activity/Vol] 49 U/L 45-117 [facility] Work Phone: ALT [Catalytic activity/Vol] 25 U/L 13-56 [facility] Work Phone: CO2 [Moles/Vol] 27.0 mmol/L 21.0-32.0 [facility] Work Phone: Globulin (S) [Mass/Vol] 4.1 g/dL 2.2-4.2 [facility] Work Phone: [phone] Urea nitrogen/Creatinine [Mass ratio] 21.9 mg/mg 10-20 [facility] Work Phone: [phone] Laboratory - Hematology and Cell countson 12-21-2021 Erythrocyte distribution width (RBC) [Entitic vol] 38.6 fL 35.1-43.9 [facility] Work Phone: [phone] Erythrocyte distribution width (RBC) [Ratio] 13.3 % 11.6-14.6 [facility] Work Phone: [phone] Immature granulocytes/100 WBC (Bld) 0.200 % 0.0-0.9 [facility] Work Phone: [phone] Comment on above: IG% - Immature Granu locytes (promyelocytes, myelocytes and metamyelocytes) > 1% indicates that a LEFT SHIFT is Present. MCH (RBC) [Entitic mass] 26.8 pg 27.0-32.0 [facility] Work Phone: [phone] Nucleated RBC/100 WBC (Bld) [Ratio] 0 % 0-5 [facility] Work Phone: [phone] MCHC Auto (RBC) [Mass/Vol]on 12-21-2021 MCHC (RBC) [Mass/Vol] 33.1 g/dL 32-36 [facility] Work Phone: No Panel Informationon 12-21 Estimated GFR (MDRD) Amer 79 mL/min >60 [facility] Work Phone: [phone] Comment on above: GFR Calc Estimated GFR (MDRD) Non-Af Amer 65 mL/min >60 [facility] Work Phone: [phone] Comment on above: Non- GFR Calc Thyroid Stimulating Hormone (TSH) 2.66 uIU/mL 0.358-3.74 [facility] Work Phone: Platelets bldon 12-21-2021 Platelets (Bld) [#/Vol] 285 10*3/uL 150-450 [facility] Work Phone: Serum or plasma albumin thiago urement (mass/volume)on 12-21-2021 Albumin [Mass/Vol] 3.8 g/dL 3.2-5.0 [facility] Work Phone: [phone] Serum or plasma albumin/glob ulin mass ratioon 12-21-2021 Albumin/Globulin [Mass ratio] 0.9 {ratio} 0.9-2.4 [facility] Work Phone: [phone] Serum or plasma calcium thiago urement (mass/volume)on 12-21-2021 Calcium [Mass/Vol] 9.2 mg/dL 8.5-10.1 [facility] Work Phone: [phone] Serum or plasma creatinine m easurement (mass/volume)on 12-21-2021 Creatinine [Mass/Vol] 0.96 mg/dL 0.55-1.02 [facility] Work Phone: Comment on above: The validity of the calculated GFR & GFRAA in patients over 70 years has not been determined. Clinical correlation is essential. Serum or plasma urea nitroge n measurement (mass/volume)on 12-21-2021 Urea nitrogen [Mass/Vol] 21 mg/dL 7-18 [facility] Work Phone: [phone] Thin prep Papanicolaou smear with manual screeningon 12-21-2021 Thin prep Papanicolaou smear with manual screening 20 U/L 15-37 [facility] Work Phone: Thin prep Papanicolaou smear with manual screening 8 5-15 [facility] Work Phone: [phone] Laboratory - Chemistry and C hemistry - challengeon 10-20-2021 Free T4 [Mass/Vol] 0.84 ng/dL 0.76-1.46 [facility] Work Phone: [phone] Panel Informationon 10-20 Thyroid Stimulating Hormone (TSH) 2.21 uIU/mL 0.358-3.74 [facility] Work Phone: [phone] Whole blood hemoglobin A1c/t otal hemoglobin ratio (mass fraction)on 10-20-2021 HbA1c (Bld) [Mass fraction] 6.6 % 3.8-5.6 [facility] Work Phone: [phone] Comment on above: Normal < 5.7 % Predi abetic 5.7 - 6.4 % Diabetic >or= 6.5 % Please note range changes. Absolute lymphocyte counton 09-21-2021 Lymphocytes Auto (Unsp spec) [#/Vol] 2.61 10*3/uL 0.83-4.51 [facility] Work Phone: Basophil percentageon 2021 Basophils/100 WBC (Bld) 0.5 % 0-1 [facility] Work Phone: Bilirubin [Mass/Vol] 0.60 mg/dL 0.20-1.00 [facility] Work Phone: Comment on above: For patients on eltr ombopag therapy, use of Dimension [place] TBIL is not recommended. Chloride [Moles/Vol] 105 mmol/L 98-107 [facility] Work Phone: Eosinophils/100 WBC (Bld) 2.1 % 0-5 [facility] Work Phone: [phone] Glucose [Mass/Vol] 143 mg/dL 74-106 [facility] Work Phone: Comment on above: Fasting Glucose resu lt greater than or equal to 126 mg/dL suggests DIABETES MELLITUS per A.D.A. criteria. Neutrophils (Bld) [#/Vol] 4.1 10*3/uL 2.0-7.7 [facility] Work Phone: Neutrophils/100 WBC (Bld) 54.2 % 47-70 [facility] Work Phone: Potassium [Moles/Vol] 4.1 mmol/L 3.5-5.1 [facility] Work Phone: Protein [Mass/Vol] 7.5 g/dL 6.4-8.2 [facility] Work Phone: Sodium [Moles/Vol] 139 mmol/L 136-145 [facility] Work Phone: WBC (Bld) [#/Vol] 7.7 10*3/uL 4.4-11.[address] [facility] Work Phone: Blood erythrocytes count (nu mber/volume)on 09-21-2021 RBC (Bld) [#/Vol] 4.25 10*6/uL 4.2-5.4 [facility] Work [facility]: Blood hemoglobin measurement (mass/volume)on 09-21-2021 Hemoglobin (Bld) [Mass/Vol] 11.5 g/dL 12.0-15.0 [facility] Work Phone: [phone] Blood lymphocytes/100 leukoc yteson 09-21-2021 Lymphocytes/100 WBC (Bld) 34.1 % 19-41 [facility] Work Phone: [phone] Blood monocytes/100 leukocyt eson 09-21-2021 Monocytes/100 WBC (Bld) 8.6 % 0-10 [facility] Work Phone: [phone] Blood platelet mean volumeon 09-21-2021 Platelet mean volume (Bld) [Entitic vol] 9.9 fL 6.2-12.0 [facility] Work Phone: [phone] Determination of erythrocyte mean corpuscular volume (MCV)on 09-21-2021 MCV (RBC) [Entitic vol] 81.6 fL 81-99 [facility] Work Phone: Hematocrit Auto (Bld) [Volum e fraction]on 09-21-2021 Hematocrit (Bld) [Volume fraction] 34.7 % 37-47 [facility] Work Phone: Laboratory - Chemistry and C hemistry - challengeon 09-21-2021 ALP [Catalytic activity/Vol] 45 U/L 45-117 [facility] Work Phone: ALT [Catalytic activity/Vol] 28 U/L 13-56 [facility] Work Phone: [phone] CO2 [Moles/Vol] 26.0 mmol/L 21.0-32.0 [facility] Work Phone: Globulin (S) [Mass/Vol] 3.8 g/dL 2.2-4.2 [facility] Work Phone: [phone] Urea nitrogen/Creatinine [Mass ratio] 12.8 mg/mg 10-20 [facility] Work Phone: [phone] Laboratory - Hematology and Cell countson 09-21-2021 Erythrocyte distribution width (RBC) [Entitic vol] 38.6 fL 35.1-43.9 [facility] Work Phone: [phone] Erythrocyte distribution width (RBC) [Ratio] 13.0 % 11.6-14.6 [facility] Work Phone: [phone] Immature granulocytes/100 WBC (Bld) 0.500 % 0.0-0.9 [facility] Work Phone: [phone] Comment on above: IG% - Immature Granu locytes (promyelocytes, myelocytes and metamyelocytes) > 1% indicates that a LEFT SHIFT is Present. MCH (RBC) [Entitic mass] 27.1 pg 27.0-32.0 [facility] Work Phone: [phone] Nucleated RBC/100 WBC (Bld) [Ratio] 0 % 0-5 [facility] Work Phone: [phone] MCHC Auto (RBC) [Mass/Vol]on 09-21-2021 MCHC (RBC) [Mass/Vol] 33.1 g/dL 32-36 [facility] Work Phone: [phone] Panel Informationon 09-21 Estimated GFR (MDRD) Amer 68 mL/min >60 [facility] Work Phone: [phone] Comment on above: GFR Calc Estimated GFR (MDRD) Non-Af Amer 56 mL/min >60 [facility] Work Phone: [phone] Comment on above: Non- GFR Calc Thyroid Stimulating Hormone (TSH) 2.98 uIU/mL 0.358-3.74 [facility] Work Phone: [phone] Vitamin D 25-Hydroxy 36.2 ng/mL [facility] Work Phone: [phone] Comment on above: Vitamin D 25(OH) Sta tus Range Deficiency <20 ng/mL (50nmol/L) Insufficiency 20 - 30 ng/mL (50 - 75 nmol/L) Sufficiency 30 - 100 ng/mL (75 - 250 nmol/L) Toxicity >100 ng/mL (>250 nmol/L) Platelets bldon 09-21-2021 Platelets (Bld) [#/Vol] 274 10*3/uL 150-450 [facility] Work Phone: [phone] Serum or plasma albumin thiago urement (mass/volume)on 09-21-2021 Albumin [Mass/Vol] 3.7 g/dL 3.2-5.0 [facility] Work Phone: [phone] Serum or plasma albumin/glob ulin mass ratioon 09-21-2021 Albumin/Globulin [Mass ratio] 1.0 {ratio} 0.9-2.4 [facility] Work Phone: [phone] Serum or plasma calcium thiago urement (mass/volume)on 09-21-2021 Calcium [Mass/Vol] 8.7 mg/dL 8.5-10.1 [facility] Work Phone: [phone] Serum or plasma creatinine m easurement (mass/volume)on 09-21-2021 Creatinine [Mass/Vol] 1.09 mg/dL 0.55-1.02 [facility] Work Phone: Comment on above: The validity of the calculated GFR & GFRAA in patients over 70 years has not been determined. Clinical correlation is essential. Serum or plasma urea nitroge n measurement (mass/volume)on 09-21-2021 Urea nitrogen [Mass/Vol] 14 mg/dL 7-18 [facility] Work Phone: [phone] Thin prep Papanicolaou smear with manual screeningon 09-21-2021 Thin prep Papanicolaou smear with manual screening 27 U/L 15-37 [facility] Work Phone: [phone] Thin prep Papanicolaou smear with manual screening 8 5-15 [facility] Work Phone: [phone] Absolute lymphocyte counton 08-25-2021 Lymphocytes Auto (Unsp spec) [#/Vol] 2.35 10*3/uL 0.83-4.51 [facility] Work Phone: Basophil percentageon 2021 Basophils/100 WBC (Bld) 0.4 % 0-1 [facility] Work Phone: Bilirubin [Mass/Vol] 0.40 mg/dL 0.20-1.00 [facility] Work Phone: Comment on above: For patients on eltr ombopag therapy, use of Dimension [place] TBIL is not recommended. Chloride [Moles/Vol] 106 mmol/L 98-107 [facility] Work Phone: Eosinophils/100 WBC (Bld) 1.5 % 0-5 [facility] [facility] Work Phone: Glucose [Mass/Vol] 163 mg/dL 74-106 [facility] Work Phone: Comment on above: Fasting Glucose resu lt greater than or equal to 126 mg/dL suggests DIABETES MELLITUS per A.D.A. criteria. Neutrophils (Bld) [#/Vol] 5.7 10*3/uL 2.0-7.7 [facility] Work Phone: Neutrophils/100 WBC (Bld) 62.9 % 47-70 [facility] Work Phone: Potassium [Moles/Vol] 4.5 mmol/L 3.5-5.1 [facility] Work Phone: Protein [Mass/Vol] 8.2 g/dL 6.4-8.2 [facility] Work Phone: Sodium [Moles/Vol] 139 mmol/L 136-145 [facility] Work Phone: WBC (Bld) [#/Vol] 9.1 10*3/uL 4.4-11.0 [facility] Work Phone: Blood erythrocytes count (nu mber/volume)on 08-25-2021 RBC (Bld) [#/Vol] 4.49 10*6/uL 4.2-5.4 [facility] Work Phone: Blood hemoglobin measurement (mass/volume)on 08-25-2021 Hemoglobin (Bld) [Mass/Vol] 12.1 g/dL 12.0-15.0 [facility] Work Phone: Blood lymphocytes/100 leukoc yteson 08-25-2021 Lymphocytes/100 WBC (Bld) 25.8 % 19-41 [facility] Work Phone: [phone] Blood monocytes/100 leukocyt eson 08-25-2021 Monocytes/100 WBC (Bld) 8.9 % 0-10 [facility] Work Phone: Blood platelet mean volumeon 08-25-2021 Platelet mean volume (Bld) [Entitic vol] 10.4 fL 6.2-12.0 [facility] Work Phone: Culture, urineon 08-25-2021 Bacteria identified Cx Nom (U) Mixed Gram Pos & Gram Neg Org [facility] Work Phone: Determination of erythrocyte mean corpuscular volume (MCV)on 08-25-2021 MCV (RBC) [Entitic vol] 83.3 fL 81-99 [facility] Work Phone: Erythrocyte sedimentation ra david 08-25-2021 ESR (Bld) [Velocity] 39 mm/h 0-[facility]: Hematocrit Auto (Bld) [Volum e fraction]on 08-25-2021 Hematocrit (Bld) [Volume fraction] 37.4 % 37-47 [facility] Work Phone: Laboratory - Chemistry and C hemistry - challengeon 08-25-2021 ALP [Catalytic activity/Vol] 44 U/L 45-117 [facility] Work Phone: ALT [Catalytic activity/Vol] 38 U/L 13-56 [facility] Work Phone: [phone] CO2 [Moles/Vol] 22.0 mmol/L 21.0-32.0 [facility] Work Phone: [phone] Globulin (S) [Mass/Vol] 4.3 g/dL 2.2-4.2 [facility] Work Phone: [phone] Urea nitrogen/Creatinine [Mass ratio] 26.5 mg/mg 10-20 [facility] Work Phone: [phone] Laboratory - Hematology and Cell countson 08-25-2021 Erythrocyte distribution width (RBC) [Entitic vol] 39.4 fL 35.1-43.9 [facility] Work Phone: [phone] Erythrocyte distribution width (RBC) [Ratio] 13.1 % 11.6-14.6 [facility] Work Phone: [phone] Immature granulocytes/100 WBC (Bld) 0.500 % 0.0-0.9 [facility] Work Phone: [phone] Comment on above: IG% - Immature Granu locytes (promyelocytes, myelocytes and metamyelocytes) > 1% indicates that a LEFT SHIFT is Present. MCH (RBC) [Entitic mass] 26.9 pg 27.0-32.0 [facility] Work Phone: [phone] Nucleated RBC/100 WBC (Bld) [Ratio] 0 % 0-5 [facility] Work Phone: [phone] MCHC Auto (RBC) [Mass/Vol]on 08-25-2021 MCHC (RBC) [Mass/Vol] 32.4 g/dL 32-36 [facility]: [phone] Panel Informationon 08-25 Estimated GFR (MDRD) Amer 77 mL/min >60 [facility] Work Phone: [phone] Comment on above: GFR Calc Estimated GFR (MDRD) Non-Af Amer 63 mL/min >60 [facility] Work Phone: [phone] Comment on above: Non- GFR Calc Thyroid Stimulating Hormone (TSH) 2.17 uIU/mL 0.358-3.74 [facility] Work Phone: [phone] Platelets bldon 08-25-2021 Platelets (Bld) [#/Vol] 293 10*3/uL 150-450 [facility] Work Phone: Serum or plasma C reactive p rotein measurement (mass/volume)on 08-25-2021 CRP [Mass/Vol] mg/L 0.0-3.0 [facility] Work Phone: Comment on above: C-Reactive Protein ( CRP) provides useful information for thediagnosis, therapy and monitoring of inflammatory processesand associated diseases. For the evaluation of Relative Riskfor Cardiovascular Disease, a High Sensitivity CRP (HSCRP)should be ordered. Serum or plasma albumin thiago urement (mass/volume)on 08-25-2021 Albumin [Mass/Vol] 3.9 g/dL 3.2-5.0 [facility] Work Phone: Serum or plasma albumin/glob ulin mass ratioon 08-25-2021 Albumin/Globulin [Mass ratio] 0.9 {ratio} 0.9-2.4 [facility] Work Phone: Serum or plasma calcium thiago urement (mass/volume)on 08-25-2021 Calcium [Mass/Vol] 9.4 mg/dL 8.5-10.1 [facility] Work Phone: Serum or plasma creatinine m easurement (mass/volume)on 08-25-2021 Creatinine [Mass/Vol] 0.98 mg/dL 0.55-1.02 [facility] Work Phone: Comment on above: The validity of the calculated GFR & GFRAA in patients over 70 years has not been determined. Clinical correlation is essential. Serum or plasma urea nitroge n measurement (mass/volume)on 08-25-2021 Urea nitrogen [Mass/Vol] 26 mg/dL 7-18 [facility] Work Phone: [phone] Thin prep Papanicolaou smear with manual screeningon 08-25-2021 Thin prep Papanicolaou smear with manual screening 31 U/L 15-37 [facility] Work Phone: [phone] Thin prep Papanicolaou smear with manual screening 11 5-15 [facility] Work Phone: [phone] Panel Informationon 07-22 Homocysteine 7.4 umol/L 3.2-10.7 [facility] Work Phone: [phone] Serum or plasma methylmalona te measurement (moles/volume)on 07-22-2021 Methylmalonate [Moles/Vol] 819 nmol/L 0-378 [facility] Work Phone: Comment on above: Performed at: [address] [id number] Director: Pauline Yang MD, Phone: [phone] Absolute lymphocyte counton 07-20-2021 Lymphocytes Auto (Unsp spec) [#/Vol] 2.36 10*3/uL 0.83-4.51 [facility] Work Phone: [phone] Basophil percentageon 2021 Basophils/100 WBC (Bld) 0.4 % 0-1 [facility] Work Phone: [phone] Eosinophils/100 WBC (Bld) 2.3 % 0-5 [facility] Work Phone: [phone] Neutrophils (Bld) [#/Vol] 3.7 10*3/uL 2.0-7.7 [facility] Work Phone: [phone] Neutrophils/100 WBC (Bld) 54.5 % 47-70 [facility] Work Phone: [phone] WBC (Bld) [#/Vol] 6.9 10*3/uL 4.4-11.0 [facility] Work Phone: [phone] Blood erythrocytes count (nu mber/volume)on 07-20-2021 RBC (Bld) [#/Vol] 4.01 10*6/uL 4.2-5.4 [facility] Work Phone: [phone] Blood hemoglobin measurement (mass/volume)on 07-20-2021 Hemoglobin (Bld) [Mass/Vol] 10.9 g/dL 12.0-15.0 [facility] Work Phone: [phone] Blood lymphocytes/100 leukoc yteson 07-20-2021 Lymphocytes/100 WBC (Bld) 34.4 % 19-41 [facility] Work Phone: Blood monocytes/100 leukocyt eson 07-20-2021 Monocytes/100 WBC (Bld) 8.3 % 0-10 [facility] Work Phone: [phone] Blood platelet mean volumeon 07-20-2021 Platelet mean volume (Bld) [Entitic vol] 10.5 fL 6.2-12.0 [facility] Work Phone: [phone] Determination of erythrocyte mean corpuscular volume (MCV)on 07-20-2021 MCV (RBC) [Entitic vol] 83.5 fL 81-99 [facility] Work Phone: [phone] Hematocrit Auto (Bld) [Volum e fraction]on 07-20-2021 Hematocrit (Bld) [Volume fraction] 33.5 % 37-47 [facility] Work Phone: [phone] Hemoglobin in reticulocytes (mass per reticulocyte)on 07-20-2021 Hemoglobin (Reticulocytes) [Entitic mass] 31.0 pg 30-35 [facility] Work Phone: [phone] Iron measurement (mass/mass) on 07-20-2021 Iron (Unsp spec) [Mass/Mass] 44 ug/dL 50-170 [facility] Work Phone: [phone] Laboratory - Chemistry and C hemistry - challengeon 07-20-2021 Cobalamin (Vitamin B12) [Mass/Vol] 299 pg/mL 211-911 [facility] Work Phone: [phone] Laboratory - Hematology and Cell countson 07-20-2021 Erythrocyte distribution width (RBC) [Entitic vol] 43.0 fL 35.1-43.9 [facility] Work Phone: [phone] Erythrocyte distribution width (RBC) [Ratio] 14.1 % 11.6-14.6 [facility] Work Phone: [phone] Immature granulocytes/100 WBC (Bld) 0.100 % 0.0-0.9 [facility] Work Phone: [phone] Comment on above: IG% - Immature Granu locytes (promyelocytes, myelocytes and metamyelocytes) > 1% indicates that a LEFT SHIFT is Present. MCH (RBC) [Entitic mass] 27.2 pg 27.0-32.0 [facility] Work Phone: [phone] Nucleated RBC/100 WBC (Bld) [Ratio] 0 % 0-5 [facility] Work Phone: [phone] MCHC Auto (RBC) [Mass/Vol]on 07-20-2021 MCHC (RBC) [Mass/Vol] 32.5 g/dL 32-36 [facility] Work Phone: [phone] Panel Informationon 07-20 Immature Reticulocyte Fraction 17.20 % 3.00-15.90 [facility] Work Phone: [phone] Reticulocyte Count 2.13 % 0.5-1.5 [facility] Work Phone: [phone] Total Iron Binding Capacity 443 ug/dL 250-450 [facility] Work Phone: [phone] Platelets bldon 07-20-2021 Platelets (Bld) [#/Vol] 234 10*3/uL 150-450 [facility] Work Phone: [phone] Serum or plasma ferritin lizette surement (mass/volume)on 07-20-2021 Ferritin [Mass/Vol] 30 ng/mL 8-252 [facility] Work Phone: [phone] Serum or plasma folate measu rement (mass/volume)on 07-20-2021 Folate [Mass/Vol] 11.00 ng/mL 3.1-55.4 [facility] Work Phone: [phone] Serum or plasma iron saturat ion measurement (mass fraction)on 07-20-2021 Iron saturation [Mass fraction] 9.9 % 15.0-55.0 [facility] Work Phone: [phone] Absolute lymphocyte counton 07-19-2021 Lymphocytes Auto (Unsp spec) [#/Vol] 2.89 10*3/uL 0.83-4.51 [facility] Work Phone: [phone] Basophil percentageon 2021 Basophils/100 WBC (Bld) 0.4 % 0-1 [facility] Work Phone: Chloride [Moles/Vol] 108 mmol/L 98-107 [facility] Work Phone: Eosinophils/100 WBC (Bld) 1.8 % 0-5 [facility] Work Phone: Glucose [Mass/Vol] 140 mg/dL 74-106 [facility] Work Phone: Comment on above: Fasting Glucose resu lt greater than or equal to 126 mg/dL suggests DIABETES MELLITUS per A.D.A. criteria. Neutrophils (Bld) [#/Vol] 4.7 10*3/uL 2.0-7.7 [facility] Work Phone: Neutrophils/100 WBC (Bld) 55.6 % 47-70 [facility] Work Phone: Potassium [Moles/Vol] 4.0 mmol/L 3.5-5.1 [facility]: Sodium [Moles/Vol] 138 mmol/L 136-145 [facility] Work Phone: WBC (Bld) [#/Vol] 8.4 10*3/uL 4.4-11.0 [facility] Work Phone: Blood erythrocytes count (nu mber/volume)on 07-19-2021 RBC (Bld) [#/Vol] 4.11 10*6/uL 4.2-5.4 [facility] Work Phone: Blood hemoglobin measurement (mass/volume)on 07-19-2021 Hemoglobin (Bld) [Mass/Vol] 10.8 g/dL 12.0-15.0 [facility] Work Phone: Blood lymphocytes/100 leukoc yteson 07-19-2021 Lymphocytes/100 WBC (Bld) 34.5 % 19-41 [facility] Work Phone: Blood monocytes/100 leukocyt eson 07-19-2021 Monocytes/100 WBC (Bld) 7.5 % 0-10 [facility] Work Phone: [phone] Blood platelet mean volumeon 07-19-2021 Platelet mean volume (Bld) [Entitic vol] 10.4 fL 6.2-12.0 [facility] Work Phone: [phone] Culture, urineon 07-19-2021 Bacteria identified Cx Nom (U) Escherichia coli [facility] Work Phone: [phone] Determination of erythrocyte mean corpuscular volume (MCV)on 07-19-2021 MCV (RBC) [Entitic vol] 83.0 fL 81-99 [facility] Work Phone: [phone] Hematocrit Auto (Bld) [Volum e fraction]on 07-19-2021 Hematocrit (Bld) [Volume fraction] 34.1 % 37-47 [facility] Work Phone: [phone] Laboratory - Chemistry and C hemistry - challengeon 07-19-2021 CO2 [Moles/Vol] 26.0 mmol/L 21.0-32.0 [facility] Work Phone: [phone] Urea nitrogen/Creatinine [Mass ratio] 15.8 mg/mg 10-20 [facility] Work Phone: [phone] Laboratory - Hematology and Cell countson 07-19-2021 Erythrocyte distribution width (RBC) [Entitic vol] 42.5 fL 35.1-43.9 [facility] Work Phone: [phone] Erythrocyte distribution width (RBC) [Ratio] 14.1 % 11.6-14.6 [facility] Work Phone: [phone] Immature granulocytes/100 WBC (Bld) 0.200 % 0.0-0.9 [facility] Work Phone: [phone] Comment on above: IG% - Immature Granu locytes (promyelocytes, myelocytes and metamyelocytes) > 1% indicates that a LEFT SHIFT is Present. MCH (RBC) [Entitic mass] 26.3 pg 27.0-32.0 [facility] Work Phone: [phone] Nucleated RBC/100 WBC (Bld) [Ratio] 0 % 0-5 [facility] Work Phone: Laboratory - Microbiology an d Antimicrobial susceptibilityon 07-19-2021 Bacteria identified Cx Nom (Bld) No growth in 5 days. [facility] Work Phone: MCHC Auto (RBC) [Mass/Vol]on 07-19-2021 MCHC (RBC) [Mass/Vol] 31.7 g/dL 32-36 [facility] Work Phone: No Panel Informationon 07-19 Estimated GFR (MDRD) Amer 65 mL/min >60 [facility] Work Phone: Comment on above: GFR Calc Estimated GFR (MDRD) Non-Af Amer 53 mL/min >60 [facility] Work Phone: Comment on above: Non- GFR Calc Platelets bldon 07-19-2021 Platelets (Bld) [#/Vol] 257 10*3/uL 150-450 [facility] Work Phone: Serum or plasma calcium thiago urement (mass/volume)on 07-19-2021 Calcium [Mass/Vol] 9.6 mg/dL 8.5-10.1 [facility] Work Phone: Serum or plasma creatinine m easurement (mass/volume)on 07-19-2021 Creatinine [Mass/Vol] 1.14 mg/dL 0.55-1.02 [facility] Work Phone: Comment on above: The validity of the calculated GFR & GFRAA in patients over 70 years has not been determined. Clinical correlation is essential. Serum or plasma urea nitroge n measurement (mass/volume)on 07-19-2021 Urea nitrogen [Mass/Vol] 18 mg/dL 7-18 [facility] Work Phone: Thin prep Papanicolaou smear with manual screeningon 07-19-2021 Thin prep Papanicolaou smear with manual screening 4 5-15 [facility] Work Phone: Absolute lymphocyte counton 06-23-2021 Lymphocytes Auto (Unsp spec) [#/Vol] 2.66 10*3/uL 0.83-4.51 [facility] Work Phone: Basophil percentageon 2021 Basophils/100 WBC (Bld) 0.5 % 0-1 [facility] Work Phone: Bilirubin [Mass/Vol] 0.50 mg/dL 0.20-1.00 [facility] Work Phone: Comment on above: For patients on eltr ombopag therapy, use of Dimension [place] TBIL is not recommended. Chloride [Moles/Vol] 101 mmol/L 98-107 [facility] Work Phone: Eosinophils/100 WBC (Bld) 1.5 % 0-5 [facility] Work Phone: Glucose [Mass/Vol] 252 mg/dL 74-106 [facility] Work Phone: Comment on above: Glucose result great er than or equal to 200 mg/dLsuggests DIABETES MELLITUS per A.D.A. criteria. Neutrophils (Bld) [#/Vol] 5.2 10*3/uL 2.0-7.7 [facility] Work Phone: Neutrophils/100 WBC (Bld) 58.4 % 47-70 [facility] Work Phone: Potassium [Moles/Vol] 4.1 mmol/L 3.5-5.1 [facility] Work Phone: Protein [Mass/Vol] 7.9 g/dL 6.4-8.2 [facility] Work Phone: Sodium [Moles/Vol] 137 mmol/L 136-145 [facility] Work Phone: WBC (Bld) [#/Vol] 8.9 10*3/uL 4.4-11.0 [facility] Work Phone: Blood erythrocytes count (nu mber/volume)on 06-23-2021 RBC (Bld) [#/Vol] 4.77 10*6/uL 4.2-5.4 [facility]: [phone] Blood hemoglobin measurement (mass/volume)on 06-23-2021 Hemoglobin (Bld) [Mass/Vol] 13.1 g/dL 12.0-15.0 [facility] Work Phone: [phone] Blood lymphocytes/100 leukoc yteson 06-23-2021 Lymphocytes/100 WBC (Bld) 30.0 % 19-41 [facility] Work Phone: [phone] Blood monocytes/100 leukocyt eson 06-23-2021 Monocytes/100 WBC (Bld) 9.3 % 0-10 [facility] Work Phone: [phone] Blood platelet mean volumeon 06-23-2021 Platelet mean volume (Bld) [Entitic vol] 10.2 fL 6.2-12.0 [facility] Work Phone: [phone] Determination of erythrocyte mean corpuscular volume (MCV)on 06-23-2021 MCV (RBC) [Entitic vol] 80.5 fL 81-99 [facility] Work Phone: [phone] Hematocrit Auto (Bld) [Volum e fraction]on 06-23-2021 Hematocrit (Bld) [Volume fraction] 38.4 % 37-47 [facility] Work Phone: Laboratory - Chemistry and C hemistry - challengeon 06-23-2021 ALP [Catalytic activity/Vol] 50 U/L 45-117 [facility] Work Phone: [phone] ALT [Catalytic activity/Vol] 42 U/L 13-56 [facility] Work Phone: [phone] CO2 [Moles/Vol] 28.0 mmol/L 21.0-32.0 [facility] Work Phone: [phone] Globulin (S) [Mass/Vol] 4.1 g/dL 2.2-4.2 [facility] Work Phone: [phone] Urea nitrogen/Creatinine [Mass ratio] 16.0 mg/mg 10-20 [facility] Work Phone: [phone] Laboratory - Hematology and Cell countson 06-23-2021 Erythrocyte distribution width (RBC) [Entitic vol] 40.6 fL 35.1-43.9 [facility] Work Phone: [phone] Erythrocyte distribution width (RBC) [Ratio] 13.9 % 11.6-14.6 [facility] Work Phone: [phone] Immature granulocytes/100 WBC (Bld) 0.300 % 0.0-0.9 [facility] Work Phone: [phone] Comment on above: IG% - Immature Granu locytes (promyelocytes, myelocytes and metamyelocytes) > 1% indicates that a LEFT SHIFT is Present. MCH (RBC) [Entitic mass] 27.5 pg 27.0-32.0 [facility] Work Phone: [phone] Nucleated RBC/100 WBC (Bld) [Ratio] 0 % 0-5 [facility] Work Phone: [phone] MCHC Auto (RBC) [Mass/Vol]on 06-23-2021 MCHC (RBC) [Mass/Vol] 34.1 g/dL 32-36 [facility] Work Phone: [phone] Panel Informationon 06-23 Estimated GFR (MDRD) Amer 58 mL/min >60 [facility] Work Phone: [phone] Comment on above: GFR Calc Estimated GFR (MDRD) Non-Af Amer 48 mL/min >60 [facility] Work Phone: [phone] Comment on above: Non- GFR Calc Thyroid Stimulating Hormone (TSH) 4.89 uIU/mL 0.358-3.74 [facility] Work Phone: [phone] Platelets bldon 06-23-2021 Platelets (Bld) [#/Vol] 274 10*3/uL 150-450 [facility] Work Phone: [phone] Serum or plasma albumin thiago urement (mass/volume)on 06-23-2021 Albumin [Mass/Vol] 3.8 g/dL 3.2-5.0 [facility] Work Phone: [phone] Serum or plasma albumin/glob ulin mass ratioon 06-23-2021 Albumin/Globulin [Mass ratio] 0.9 {ratio} 0.9-2.4 [facility] Work Phone: Serum or plasma calcium thiago urement (mass/volume)on 06-23-2021 Calcium [Mass/Vol] 8.9 mg/dL 8.5-10.1 [facility] Work Phone: Serum or plasma creatinine m easurement (mass/volume)on 06-23-2021 Creatinine [Mass/Vol] 1.25 mg/dL 0.55-1.02 [facility] Work Phone: Comment on above: The validity of the calculated GFR & GFRAA in patients over 70 years has not been determined. Clinical correlation is essential. Serum or plasma urea nitroge n measurement (mass/volume)on 06-23-2021 Urea nitrogen [Mass/Vol] 20 mg/dL 7-18 [facility] Work Phone: Thin prep Papanicolaou smear with manual screeningon 06-23-2021 Thin prep Papanicolaou smear with manual screening 32 U/L 15-37 [facility] Work Phone: Thin prep Papanicolaou smear with manual screening 8 5-15 [facility] Work Phone: Basophil percentageon 2021 Cholesterol [Mass/Vol] 126 mg/dL <200 [facility] Work Phone: Comment on above: <200 mg/dL Desirable 200-240 mg/dL Borderline >240 mg/dL High Risk Triglyceride [Mass/Vol] 145 mg/dL <199 [facility] Work Phone: Comment on above: The drugs N-Acetylcy steine and Metamizole may falsely depress this assay.Serum Triglycerides Reference Interval Normal <150 mg/dL Borderline high 150 - 199 mg/dL High 200 - 499 mg/dL Very High > or = 500 mg/dL Laboratory - Chemistry and C hemistry - challengeon 06-09-2021 Cobalamin (Vitamin B12) [Mass/Vol] 392 pg/mL 211-911 [facility] Work Phone: [phone] Free T4 [Mass/Vol] 0.98 ng/dL 0.76-1.46 [facility] Work Phone: Laboratory - Hematology and Cell countson 06-09-2021 HbA1c (Bld) [Mass fraction] 9.4 % [facility] Work Phone: No Panel Informationon 06-09 Thyroid Stimulating Hormone (TSH) 2.37 uIU/mL 0.358-3.74 [facility] Work Phone: [phone] Vitamin D 25-Hydroxy 21.5 ng/mL [facility] Work Phone: [phone] Comment on above: Vitamin D 25(OH) Sta tus Range Deficiency <20 ng/mL (50nmol/L) Insufficiency 20 - 30 ng/mL (50 - 75 nmol/L) Sufficiency 30 - 100 ng/mL (75 - 250 nmol/L) Toxicity >100 ng/mL (>250 nmol/L) Serum or plasma cholesterol in HDL measurement (mass/volume)on 06-09-2021 Cholesterol in HDL [Mass/Vol] 41 mg/dL >40 [facility] Work Phone: Comment on above: The drugs N-Acetylcy steine and Metamizole may falsely depress this assay. Reference Range HDL <40 mg/dL Low HDL Cholesterol HDL >or= 60 mg/dL High HDL Cholesterol Serum or plasma cholesterol in VLDL measurement (mass/volume)on 06-09-2021 Cholesterol in VLDL [Mass/Vol] 29 mg/dL 5-40 [facility] Work Phone: [phone] Serum or plasma low density lipoprotein (LDL) cholesterol measurement (mass/volume)on 06-09-2021 Cholesterol in LDL [Mass/Vol] 56 mg/dL 0-130 [facility] Work Phone: Bacteria identified Cx Nom ( Wound)on 05-18-2021 Wound Culture Meth. resistant Staph. aureus [facility] Work Phone: [phone] Gram stain for investigation of transfusion reactionon 05-18-2021 Microscopic observation Gram stain Nom (Unsp spec) [facility] Work Phone: No Panel Informationon 05-18 Methicillin-Resist S.aureus DNA PCR Positive Negative [facility] Work Phone: Staphylococcus aureus DNA de tection by probe and target amplification methodon 05-18-2021 S. aureus DNA EMILY+probe Ql (Unsp spec) Positive Negative [facility] Work Phone: Absolute lymphocyte counton 05-17-2021 Lymphocytes Auto (Unsp spec) [#/Vol] 2.79 10*3/uL 0.83-4.51 [facility] Work Phone: Basophil percentageon 2021 Basophils/100 WBC (Bld) 0.4 % 0-1 [facility] Work Phone: Chloride [Moles/Vol] 104 mmol/L 98-107 [facility] Work Phone: Eosinophils/100 WBC (Bld) 1.6 % 0-5 [facility] Work Phone: Glucose [Mass/Vol] 227 mg/dL 74-106 [facility] Work Phone: Comment on above: Glucose result great er than or equal to 200 mg/dLsuggests DIABETES MELLITUS per A.D.A. criteria. Neutrophils (Bld) [#/Vol] 4.7 10*3/uL 2.0-7.7 [facility] Work Phone: Neutrophils/100 WBC (Bld) 55.4 % 47-70 [facility] Work Phone: Potassium [Moles/Vol] 4.2 mmol/L 3.5-5.1 [facility] Work Phone: Sodium [Moles/Vol] 139 mmol/L 136-145 [facility] Work Phone: WBC (Bld) [#/Vol] 8.5 10*3/uL 4.4-11.0 [facility] Work Phone: Blood erythrocytes count (nu mber/volume)on 05-17-2021 RBC (Bld) [#/Vol] 4.70 10*6/uL 4.2-5.4 [facility] Work Phone: [phone] Blood hemoglobin measurement (mass/volume)on 05-17-2021 Hemoglobin (Bld) [Mass/Vol] 12.5 g/dL 12.0-15.0 [facility] Work Phone: [phone] Blood lymphocytes/100 leukoc yteson 05-17-2021 Lymphocytes/100 WBC (Bld) 32.7 % 19-41 [facility] Work Phone: [phone] Blood monocytes/100 leukocyt eson 05-17-2021 Monocytes/100 WBC (Bld) 9.5 % 0-10 [facility] Work Phone: [phone] Blood platelet mean volumeon 05-17-2021 Platelet mean volume (Bld) [Entitic vol] 10.1 fL 6.2-12.0 [facility] Work Phone: [phone] Determination of erythrocyte mean corpuscular volume (MCV)on 05-17-2021 MCV (RBC) [Entitic vol] 80.6 fL 81-99 [facility] Work Phone: [phone] Hematocrit Auto (Bld) [Volum e fraction]on 05-17-2021 Hematocrit (Bld) [Volume fraction] 37.9 % 37-47 [facility] Work Phone: [phone] Laboratory - Chemistry and C hemistry - challengeon 05-17-2021 CO2 [Moles/Vol] 29.0 mmol/L 21.0-32.0 [facility] Work Phone: [phone] Urea nitrogen/Creatinine [Mass ratio] 20.2 mg/mg 10-20 [facility] Work Phone: [phone] Laboratory - Hematology and Cell countson 05-17-2021 Erythrocyte distribution width (RBC) [Entitic vol] 41.0 fL 35.1-43.9 [facility] Work Phone: [phone] Erythrocyte distribution width (RBC) [Ratio] 14.2 % 11.6-14.6 [facility] Work Phone: [phone] Immature granulocytes/100 WBC (Bld) 0.400 % 0.0-0.9 [facility] Work Phone: Comment on above: IG% - Immature Granu locytes (promyelocytes, myelocytes and metamyelocytes) > 1% indicates that a LEFT SHIFT is Present. MCH (RBC) [Entitic mass] 26.6 pg 27.0-32.0 [facility] Work Phone: Nucleated RBC/100 WBC (Bld) [Ratio] 0 % 0-5 [facility] Work Phone: Laboratory - Microbiology an d Antimicrobial susceptibilityon 05-17-2021 Bacteria identified Cx Nom (Bld) No growth in 5 days. [facility] Work Phone: MCHC Auto (RBC) [Mass/Vol]on 05-17-2021 MCHC (RBC) [Mass/Vol] 33.0 g/dL 32-36 [facility] Work Phone: No Panel Informationon 05-17 Estimated GFR (MDRD) Amer 62 mL/min >60 [facility] Work Phone: Comment on above: GFR Calc Estimated GFR (MDRD) Non-Af Amer 51 mL/min >60 [facility] Work Phone: Comment on above: Non- GFR Calc Platelets bldon 05-17-2021 Platelets (Bld) [#/Vol] 302 10*3/uL 150-450 [facility] Work Phone: Serum or plasma calcium thiago urement (mass/volume)on 05-17-2021 Calcium [Mass/Vol] 9.3 mg/dL 8.5-10.1 [facility] Work Phone: Serum or plasma creatinine m easurement (mass/volume)on 05-17-2021 Creatinine [Mass/Vol] 1.19 mg/dL 0.55-1.02 [facility] Work Phone: Comment on above: The validity of the calculated GFR & GFRAA in patients over 70 years has not been determined. Clinical correlation is essential. Serum or plasma urea nitroge n measurement (mass/volume)on 05-17-2021 Urea nitrogen [Mass/Vol] 24 mg/dL 7-18 [facility] Work Phone: Thin prep Papanicolaou smear with manual screeningon 05-17-2021 Thin prep Papanicolaou smear with manual screening 6 5-15 [facility] Work Phone: Laboratory - Hematology and Cell countson 05-12-2021 HbA1c (Bld) [Mass fraction] 10.2 % [facility] Work Phone: Absolute lymphocyte counton 04-14-2021 Lymphocytes Auto (Unsp spec) [#/Vol] 3.45 10*3/uL 0.83-4.51 [facility] Work Phone: Bacteria identified Cx Nom ( Wound)on 04-14-2021 Wound Culture Meth. resistant Staph. aureus [facility] Work Phone: Basophil percentageon 2021 Basophils/100 WBC (Bld) 0.4 % 0-1 [facility] Work Phone: Chloride [Moles/Vol] 102 mmol/L 98-107 [facility] Work Phone: Eosinophils/100 WBC (Bld) 1.6 % 0-5 [facility] Work Phone: Glucose [Mass/Vol] 279 mg/dL 74-106 [facility] Work Phone: Comment on above: Glucose result great er than or equal to 200 mg/dLsuggests DIABETES MELLITUS per A.D.A. criteria. Neutrophils (Bld) [#/Vol] 6.7 10*3/uL 2.0-7.7 [facility] Work Phone: Neutrophils/100 WBC (Bld) 58.3 % 47-70 [facility] Work Phone: Potassium [Moles/Vol] 4.5 mmol/L 3.5-5.1 [facility] Work Phone: Sodium [Moles/Vol] 137 mmol/L 136-145 [facility] Work Phone: WBC (Bld) [#/Vol] 11.4 10*3/uL 4.4-11.0 [facility] Work Phone: Blood erythrocytes count (nu mber/volume)on 04-14-2021 RBC (Bld) [#/Vol] 4.66 10*6/uL 4.2-5.4 [facility] Work Phone: [phone] Blood hemoglobin measurement (mass/volume)on 04-14-2021 Hemoglobin (Bld) [Mass/Vol] 12.0 g/dL 12.0-15.0 [facility] Work Phone: Blood lymphocytes/100 leukoc yteson 04-14-2021 Lymphocytes/100 WBC (Bld) 30.3 % 19-41 [facility] Work Phone: Blood monocytes/100 leukocyt eson 04-14-2021 Monocytes/100 WBC (Bld) 9.0 % 0-10 [facility] Work Phone: Blood platelet mean volumeon 04-14-2021 Platelet mean volume (Bld) [Entitic vol] 10.9 fL 6.2-12.0 [facility] Work Phone: Determination of erythrocyte mean corpuscular volume (MCV)on 04-14-2021 MCV (RBC) [Entitic vol] 82.2 fL 81-99 [facility] Work Phone: Erythrocyte sedimentation ra david 04-14-2021 ESR (Bld) [Velocity] 37 mm/h 0-30 [facility]: Gram stain for investigation of transfusion reactionon 04-14-2021 Microscopic observation Gram stain Nom (Unsp spec) [facility] Work Phone: Hematocrit Auto (Bld) [Volum e fraction]on 04-14-2021 Hematocrit (Bld) [Volume fraction] 38.3 % 37-47 [facility] Work Phone: [phone] Laboratory - Chemistry and C hemistry - challengeon 04-14-2021 CO2 [Moles/Vol] 29.0 mmol/L 21.0-32.0 [facility] Work Phone: [phone] Urea nitrogen/Creatinine [Mass ratio] 19.8 mg/mg 10-20 [facility] Work Phone: [phone] Laboratory - Hematology and Cell countson 04-14-2021 Erythrocyte distribution width (RBC) [Entitic vol] 40.5 fL 35.1-43.9 [facility] Work Phone: [phone] Erythrocyte distribution width (RBC) [Ratio] 13.7 % 11.6-14.6 [facility] Work Phone: [phone] Immature granulocytes/100 WBC (Bld) 0.400 % 0.0-0.9 [facility] Work Phone: [phone] Comment on above: IG% - Immature Granu locytes (promyelocytes, myelocytes and metamyelocytes) > 1% indicates that a LEFT SHIFT is Present. MCH (RBC) [Entitic mass] 25.8 pg 27.0-32.0 [facility] Work Phone: [phone] Nucleated RBC/100 WBC (Bld) [Ratio] 0 % 0-5 [facility] Work Phone: [phone] Laboratory - Microbiology an d Antimicrobial susceptibilityon 04-14-2021 Bacteria identified Cx Nom (Bld) No growth in 5 days. [facility] Work Phone: [phone] MCHC Auto (RBC) [Mass/Vol]on 04-14-2021 MCHC (RBC) [Mass/Vol] 31.3 g/dL 32-36 [facility] Work Phone: [phone] Panel Informationon 04-14 Estimated GFR (MDRD) Amer 70 mL/min >60 [facility] Work Phone: [phone] Comment on above: GFR Calc Estimated GFR (MDRD) Non-Af Amer 58 mL/min >60 [facility] Work Phone: [phone] Comment on above: Non- GFR Calc Methicillin-Resist S.aureus DNA PCR Positive Negative [facility] Work Phone: [phone] Thyroid Stimulating Hormone (TSH) 4.56 uIU/mL 0.358-3.74 [facility] Work Phone: Platelets bldon 04-14-2021 Platelets (Bld) [#/Vol] 305 10*3/uL 150-450 [facility] Work Phone: [phone] Serum or plasma C reactive p rotein measurement (mass/volume)on 04-14-2021 CRP [Mass/Vol] 13.60 mg/L 0.0-3.0 [facility] Work Phone: Comment on above: C-Reactive Protein ( CRP) provides useful information for thediagnosis, therapy and monitoring of inflammatory processesand associated diseases. For the evaluation of Relative Riskfor Cardiovascular Disease, a High Sensitivity CRP (HSCRP)should be ordered. Serum or plasma calcium thiago urement (mass/volume)on 04-14-2021 Calcium [Mass/Vol] 8.7 mg/dL 8.5-10.1 [facility] Work Phone: [phone] Serum or plasma creatinine m easurement (mass/volume)on 04-14-2021 Creatinine [Mass/Vol] 1.06 mg/dL 0.55-1.02 [facility] Work Phone: Comment on above: The validity of the calculated GFR & GFRAA in patients over 70 years has not been determined. Clinical correlation is essential. Serum or plasma urea nitroge n measurement (mass/volume)on 04-14-2021 Urea nitrogen [Mass/Vol] 21 mg/dL 7-18 [facility] Work Phone: [phone] Staphylococcus aureus DNA de tection by probe and target amplification methodon 04-14-2021 S. aureus DNA EMILY+probe Ql (Unsp spec) Positive Negative [facility] Work Phone: [phone] Thin prep Papanicolaou smear with manual screeningon 04-14-2021 Thin prep Papanicolaou smear with manual screening 6 5-15 [facility] Work Phone: [phone] Absolute lymphocyte counton 03-10-2021 Lymphocytes Auto (Unsp spec) [#/Vol] 4.46 10*3/uL 0.83-4.51 [facility] Work Phone: [phone] Basophil percentageon 2020 Bilirubin [Mass/Vol] 0.60 mg/dL 0.20-1.00 [facility] Work Phone: [phone] Comment on above: For patients on eltr ombopag therapy, use of Dimension [place] TBIL is not recommended. Chloride [Moles/Vol] 101 mmol/L 98-107 [facility] Work Phone: Eosinophils/100 WBC (Bld) 1.5 % 0-5 [facility] Work Phone: Glucose [Mass/Vol] 272 mg/dL 74-106 [facility] Work Phone: Comment on above: Glucose result great er than or equal to 200 mg/dLsuggests DIABETES MELLITUS per A.D.A. criteria.Please note revised GLUCOSE reference range effective 2017. Neutrophils (Bld) [#/Vol] 6.7 10*3/uL 2.0-7.7 [facility] Work Phone: Potassium [Moles/Vol] 3.9 mmol/L 3.5-5.1 [facility] Work Phone: [phone] Protein [Mass/Vol] 7.8 g/dL 6.4-8.2 [facility] Work Phone: Sodium [Moles/Vol] 138 mmol/L 136-145 [facility] Work Phone: [phone] WBC (Bld) [#/Vol] 12.5 10*3/uL 4.4-11.0 [facility] Work Phone: Blood erythrocytes count (nu mber/volume)on 03-10-2021 RBC (Bld) [#/Vol] 4.98 10*6/uL 4.2-5.4 [facility] Work Phone: Blood hemoglobin measurement (mass/volume)on 03-10-2021 Hemoglobin (Bld) [Mass/Vol] 13.1 g/dL 12.0-15.0 [facility] Work Phone: Blood lymphocytes/100 leukoc yteson 03-10-2021 Lymphocytes/100 WBC (Bld) 35.8 % 19-41 [facility] Work Phone: Blood monocytes/100 leukocyt eson 03-10-2021 Monocytes/100 WBC (Bld) 7.5 % 0-10 [facility] Work Phone: Blood platelet mean volumeon 03-10-2021 Platelet mean volume (Bld) [Entitic vol] 10.1 fL 6.2-12.0 [facility] Work Phone: Determination of erythrocyte mean corpuscular volume (MCV)on 03-10-2021 MCV (RBC) [Entitic vol] 79.5 fL 81-99 [facility] Work Phone: Hematocrit Auto (Bld) [Volum e fraction]on 03-10-2021 Hematocrit (Bld) [Volume fraction] 39.6 % 37-47 [facility] Work Phone: Laboratory - Chemistry and C hemistry - challengeon 03-10-2021 ALP [Catalytic activity/Vol] 67 U/L 45-117 [facility] Work Phone: ALT [Catalytic activity/Vol] 82 U/L 13-56 [facility] Work Phone: CO2 [Moles/Vol] 28.0 mmol/L 21.0-32.0 [facility] Work Phone: Globulin (S) [Mass/Vol] 4.3 g/dL 2.2-4.2 [facility] Work Phone: Urea nitrogen/Creatinine [Mass ratio] 18.6 mg/mg 10-20 [facility] Work Phone: Laboratory - Hematology and Cell countson 03-10-2021 Basophils/100 WBC (Unsp spec) 0.5 % 0-1 [facility] Work Phone: Erythrocyte distribution width (RBC) [Entitic vol] 39.1 fL 35.1-43.9 [facility] Work Phone: Erythrocyte distribution width (RBC) [Ratio] 13.7 % 11.6-14.6 [facility] Work Phone: Immature granulocytes/100 WBC (Bld) 0.900 % 0.0-0.9 [facility] Work Phone: Comment on above: IG% - Immature Granu locytes (promyelocytes, myelocytes and metamyelocytes) > 1% indicates that a LEFT SHIFT is Present. MCH (RBC) [Entitic mass] 26.3 pg 27.0-32.0 [facility] Work Phone: Neutrophils/100 WBC (Bld) 53.8 % 47-70 [facility] Work Phone: [phone] Nucleated RBC/100 WBC (Bld) [Ratio] 0 % 0-5 [facility] Work Phone: [phone] MCHC Auto (RBC) [Mass/Vol]on 03-10-2021 MCHC (RBC) [Mass/Vol] 33.1 g/dL 32-36 [facility] Work Phone: No Panel Informationon 03-10 Estimated GFR (MDRD) Amer 74 mL/min >60 [facility] Work Phone: Comment on above: GFR Calc Estimated GFR (MDRD) Non-Af Amer 61 mL/min >60 [facility] Work Phone: Comment on above: Non- GFR Calc Thyroid Stimulating Hormone (TSH) 4.63 uIU/mL 0.358-3.74 [facility] Work Phone: Platelets bldon 03-10-2021 Platelets (Bld) [#/Vol] 283 10*3/uL 150-450 [facility] Work Phone: [phone] Serum or plasma albumin thiago urement (mass/volume)on 03-10-2021 Albumin [Mass/Vol] 3.5 g/dL 3.2-5.0 [facility] Work Phone: [phone] Serum or plasma albumin/glob ulin mass ratioon 03-10-2021 Albumin/Globulin [Mass ratio] 0.8 {ratio} 0.9-2.4 [facility] Work Phone: Serum or plasma calcium thiago urement (mass/volume)on 03-10-2021 Calcium [Mass/Vol] 9.9 mg/dL 8.5-10.1 [facility] Work Phone: Serum or plasma creatinine m easurement (mass/volume)on 03-10-2021 Creatinine [Mass/Vol] 1.02 mg/dL 0.55-1.02 [facility] Work Phone: Comment on above: The validity of the calculated GFR & GFRAA in patients over 70 years has not been determined. Clinical correlation is essential. Serum or plasma urea nitroge n measurement (mass/volume)on 03-10-2021 Urea nitrogen [Mass/Vol] 19 mg/dL 7-18 [facility] Work Phone: Thin prep Papanicolaou smear with manual screeningon 03-10-2021 Thin prep Papanicolaou smear with manual screening 41 U/L 15-37 [facility] Work Phone: Thin prep Papanicolaou smear with manual screening 9 -15 [facility] Work Phone: Otheron 09-19-2006 CONVERTED ELECTRONIC SIGNATURE KIANA THOMAS M.D., PATHOLOGIST (Electronic signature on file) Final Signed Out: 09/19/2006 09:15 [facility] CONVERTED FINAL DIAGNOSIS A&B. RIGHT AND LEFT FALLOPIAN TUBES, PARTIAL EXCISION - TWO SEGMENTS OF UNREMARKABLE FALLOPIAN TUBE, EACH TOTALLY TRANSECTED. C. PLACENTA, MEMBRANES AND UMBILICAL CORD, DELIVERY - ECCENTRIC INSERTION OF UMBILICAL CORD. NO HISTOLOGIC ABNORMALITIES IDENTIFIED. [facility] CONVERTED ORDERING PROVIDER Ordering Provider: FRANSISCO CARY [facility] Culture, urine Bacteria identified Cx Nom (U) Escherichia coli [facility] Work Phone: Bacteria identified Cx Nom (U) Mixed Gram Pos & Gram Neg Org [facility] Work Phone: Bacteria identified Cx Nom (U) Positive [facility] Work Phone: Laboratory - Microbiology an d Antimicrobial susceptibility Bacteria identified Cx Nom (Bld) No growth in 5 days. [facility] Work Phone: No Panel Information Respiratory Panel (PCR) [facility] Work Phone: SARS-CoV-2 & FLU Antigen (Rapid) [facility] Work Phone: Vital Signs Date Time Vital Sign Value Performing Clinician Facility 12-12-2024 10:37-0400 Body height 170.[address] Phu Espinoza MD Work Phone: [facility] 12-12-2024 10:37-0400 Body mass index (BMI) [Ratio] 45.8 kg/m2 Dr. Phu Espinoza MD Work Phone: [phone] [address] 12-12-2024 10:37-0400 Body weight 132.[address] Phu Espinoza MD Work Phone: 1(527)594-122191 [place] [address] 12-12-2024 10:37-0400 Diastolic blood pressure 84 mm[Hg] Dr. Phu Espinoza MD Work Phone: 3(324)559-652391 [place] [address] 12-12-2024 10:37-0400 Heart rate 79 /min Dr. Phu Espinoza MD Work Phone: 9(558)848-187966 [address] [place] [facility] [place] [address] 12-12-2024 10:37-0400 SaO2% (BldA) [Mass fraction] 96 % Dr. Phu Espinoza MD Work Phone: [facility] 12-12-2024 10:37-0400 Systolic blood pressure 132 mm[Hg] Dr. Phu Espinoza MD Work Phone: [facility] 11-08-2024 13:04-0400 Body height 170.[address] Phu Espinoza MD Work Phone: [facility] 11-08-2024 13:04-0400 Body mass index (BMI) [Ratio] 45.1 kg/m2 Dr. Phu Espinoza MD Work Phone: [facility] 11-08-2024 13:04-0400 Body weight 130.[address] Phu Espinoza MD Work Phone: 9(268)575-381791 [place] [address] 11-08-2024 13:04-0400 Diastolic blood pressure 87 mm[Hg] Dr. Phu Espinoza MD Work Phone: [facility] 11-08-2024 13:04-0400 Heart rate 82 /min Dr. Phu Espinoza MD Work Phone: 9(498)077-647391 [place] [address] 11-08-2024 13:04-0400 Respiratory rate 18 /min Dr. Phu Espinoza MD Work Phone: 6(331)963-687191 [place] [address] 11-08-2024 13:04-0400 Systolic blood pressure 140 mm[Hg] Dr. Phu Espinoza MD Work Phone: 3(521)965-356091 [place] [address] 10-21-2024 08:40-0400 Body height 170.[address] Phu Espinoza MD Work Phone: 9(962)026-575966 [address] [place] [address] 10-21-2024 08:40-0400 Body mass index (BMI) [Ratio] 44.9 kg/m2 Dr. Phu Espinoza MD Work Phone: 8(340)703-195466 [address] [place] [address] 10-21-2024 08:40-0400 Body weight 130.[address] Phu Espinoza MD Work Phone: 3(844)814-671891 [place] [address] 10-21-2024 08:40-0400 Diastolic blood pressure 80 mm[Hg] Dr. Phu Espinoza MD Work Phone: 4(843)376-112766 [address] [place] [address] 10-21-2024 08:40-0400 Heart rate 70 /min Dr. Phu Espinoza MD Work Phone: 5(039)712-600866 [address] [place] [address] 10-21-2024 08:40-0400 Respiratory rate 16 /min Dr. Phu Espinoza MD Work Phone: [facility] 10-21-2024 08:40-0400 SaO2% (BldA) [Mass fraction] 98 % Dr. Phu Espinoza MD Work Phone: 7(055)711-033091 [place] [address] 10-21-2024 08:40-0400 Systolic blood pressure 128 mm[Hg] Dr. Phu Espinoza MD Work Phone: 9(852)532-345591 [place] [address] 10-07-2024 16:16-0400 Body temperature 97.7 [degF] Dr. Phu Espinoza MD Work Phone: [facility] 10-07-2024 16:16-0400 Diastolic blood pressure 58 mm[Hg] Dr. Phu Espinoza MD Work Phone: [facility] 10-07-2024 16:16-0400 Heart rate 72 /min Dr. Phu Espinoza MD Work Phone: [facility] 10-07-2024 16:16-0400 Respiratory rate 14 /min Dr. Phu Espinoza MD Work Phone: [facility] 10-07-2024 16:16-0400 SaO2% (BldA) [Mass fraction] 96 % Dr. Phu Espinoza MD Work Phone: 0(611)258-965191 [place] [address] 10-07-2024 16:16-0400 Systolic blood pressure 114 mm[Hg] Dr. Phu Espinoza MD Work Phone: 6(163)355-672691 [place] [address] 10-07-2024 16:08-0400 Body temperature 97.7 [degF] Dr. Phu Espinoza MD Work Phone: 7(316)192-307291 [place] [address] 10-07-2024 16:08-0400 Diastolic blood pressure 58 mm[Hg] Dr. Phu Espinoza MD Work Phone: 6(873)954-158691 [place] [address] 10-07-2024 16:08-0400 Heart rate 72 /min Dr. Phu Espinoza MD Work Phone: 6(740)719-962191 [place] [address] 10-07-2024 16:08-0400 Respiratory rate 14 /min Dr. Phu Espinoza MD Work Phone: [facility] 10-07-2024 16:08-0400 SaO2% (BldA) [Mass fraction] 96 % Dr. Phu Espinoza MD Work Phone: [facility] 10-07-2024 16:08-0400 Systolic blood pressure 114 mm[Hg] Dr. Phu Espinoza MD Work Phone: [facility] 10-07-2024 08:10-0400 Inhaled oxygen flow rate 2 L/min Dr. Phu Espinoza MD Work Phone: 8(222)809-245466 [address] [place] [address] 10-05-2024 21:47-0400 Body height 170.[address] Phu Espinoza MD Work Phone: 9(275)926-220266 [address] [place] [address] 10-05-2024 21:47-0400 Body mass index (BMI) [Ratio] 45.1 kg/m2 Dr. Phu Espinoza MD Work Phone: 9(324)358-984666 [address] [place] [address] 10-05-2024 21:47-0400 Body weight 130.[address] Phu Espinoza MD Work Phone: 3(468)939-220766 [address] [place] [address] 10-05-2024 21:11-0400 Body temperature 98.8 [degF] Dr. Phu Espinoza MD Work Phone: 6(655)561-552066 [address] [place] [address] 10-05-2024 21:11-0400 Diastolic blood pressure 65 mm[Hg] Dr. Phu Espinoza MD Work Phone: 1(082)828-654966 [address] [place] [address] 10-05-2024 21:11-0400 Heart rate 88 /min Dr. Phu Espinoza MD Work Phone: 0(923)763-973266 [address] [place] [address] 10-05-2024 21:11-0400 Respiratory rate 22 /min Dr. Phu Espinoza MD Work Phone: 6(949)665-311166 [address] [place] [address] 10-05-2024 21:11-0400 SaO2% (BldA) [Mass fraction] 93 % Dr. Phu Espinoza MD Work Phone: 9(797)676-100766 [address] [place] [address] 10-05-2024 21:11-0400 Systolic blood pressure 135 mm[Hg] Dr. Phu Espinoza MD Work Phone: 7(342)463-149991 [place] [address] 10-05-2024 19:25-0400 Body mass index (BMI) [Ratio] 45.6 kg/m2 Dr. Phu Espinoza MD Work Phone: 7(547)064-360666 [address] [place] [address] 10-05-2024 19:25-0400 Body weight [address] Phu Espinoza MD Work Phone: 8(020)752-395091 [place] [address] 10-05-2024 19:13-0400 Body height 170.[address] Phu Espinoza MD Work Phone: 0(221)678-746666 [address] [place] [facility] [address] 05-02-2024 11:40-0500 Body height 170.[address] Phu Espinoza MD Work Phone: 2(333)123-311191 [place] [address] 05-02-2024 11:40-0500 Body mass index (BMI) [Ratio] 45.4 kg/m2 Dr. Phu Espinoza MD Work Phone: 0(855)418-782191 [place] [address] 05-02-2024 11:40-0500 Body weight 131.[address] Phu Espinoza MD Work Phone: 4(021)420-968491 [place] [address] 05-02-2024 11:40-0500 Diastolic blood pressure 81 mm[Hg] Dr. Phu Espinoza MD Work Phone: 3(945)805-133291 [place] [address] 05-02-2024 11:40-0500 Heart rate 75 /min Dr. Phu Espinoza MD Work Phone: 6(087)638-399091 [place] [address] 05-02-2024 11:40-0500 SaO2% (BldA) [Mass fraction] 97 % Dr. Phu Espinoza MD Work Phone: 0(938)619-501791 [place] [address] 05-02-2024 11:40-0500 Systolic blood pressure 134 mm[Hg] Dr. Phu Espinoza MD Work Phone: 5(625)298-622591 [place] [address] 03-22-2024 13:42-0500 Body mass index (BMI) [Ratio] 45.4 kg/m2 Dr. Phu Espinoza MD Work Phone: 0(149)014-338591 [place] [address] 03-22-2024 13:42-0500 Body temperature 97.3 [degF] Dr. Phu Espinoza MD Work Phone: 6(988)629-313791 [place] [address] 03-22-2024 13:42-0500 Body weight 131.[address] Phu Espinoza MD Work Phone: [facility] 03-22-2024 13:42-0500 Diastolic blood pressure 79 mm[Hg] Dr. Phu Espinoza MD Work Phone: [facility] 03-22-2024 13:42-0500 Heart rate 85 /min Dr. Phu Espinoza MD Work Phone: 6(492)457-190691 [place] [address] 03-22-2024 13:42-0500 Respiratory rate 18 /min Dr. Phu Espinoza MD Work Phone: [facility] 03-22-2024 13:42-0500 SaO2% (BldA) [Mass fraction] 96 % Dr. Phu Espinoza MD Work Phone: [facility] 03-22-2024 13:42-0500 Systolic blood pressure 122 mm[Hg] Dr. Phu Espinoza MD Work Phone: [facility] 03-13-2023 08:55-0500 Body temperature 97.8 [degF] Dr. Phu Espinoza Work Phone: [facility] 03-13-2023 08:55-0500 Diastolic blood pressure 76 mm[Hg] Dr. Phu Espinoza Work Phone: 0(645)979-822091 [place] [address] 03-13-2023 08:55-0500 Heart rate 74 /min Dr. Phu Espinoza Work Phone: [facility] 03-13-2023 08:55-0500 Respiratory rate 16 /min Dr. Phu Espinoza Work Phone: [facility] 03-13-2023 08:55-0500 SaO2% (BldA) [Mass fraction] 97 % Dr. Phu Espinoza Work Phone: [facility] 03-13-2023 08:55-0500 Systolic blood pressure 110 mm[Hg] Dr. Phu Espinoza Work Phone: [facility] 03-13-2023 07:08-0500 Body height 170.[address] Phu Espinoza Work Phone: [facility] 03-13-2023 07:08-0500 Body mass index (BMI) [Ratio] 43.4 kg/m2 Dr. Phu Espinoza Work Phone: [facility] 03-13-2023 07:08-0500 Body weight [address] Phu Espinoza Work Phone: [facility] 03-02-2023 11:10-0500 Body height 170.[address] Phu Espinoza Work Phone: [facility] 03-02-2023 11:10-0500 Body mass index (BMI) [Ratio] 44.1 kg/m2 Dr. Phu Espinoza Work Phone: [facility] 03-02-2023 11:10-0500 Body temperature 98.6 [degF] Dr. Phu Espinoza Work Phone: 6(632)751-[address]91 [place] [address] 03-02-2023 11:10-0500 Body weight 127.[address] Phu Espinoza Work Phone: 3(551)621-677491 [place] [address] 03-02-2023 11:10-0500 Diastolic blood pressure 91 mm[Hg] Dr. Phu Espinoza Work Phone: 6(763)012-947991 [place] [address] 03-02-2023 11:10-0500 Heart rate 87 /min Dr. Phu Espinoza Work Phone: 6(392)091-812591 [place] [address] 03-02-2023 11:10-0500 SaO2% (BldA) [Mass fraction] 95 % Dr. Phu Espinoza Work Phone: 4(611)244-545091 [place] [address] 03-02-2023 11:10-0500 Systolic blood pressure 154 mm[Hg] Dr. Phu Espinoza Work Phone: 2(037)439-219791 [place] [address] 02-15-2023 14:17-0500 Body mass index (BMI) [Ratio] 43.4 kg/m2 Dr. Phu Espinoza Work Phone: [facility] 02-15-2023 14:17-0500 Body weight 125.[address] Phu Espinoza Work Phone: [facility] 02-15-2023 14:17-0500 Diastolic blood pressure 75 mm[Hg] Dr. Phu Espinoza Work Phone: [facility] 02-15-2023 14:17-0500 Respiratory rate 18 /min Dr. Phu Espinoza Work Phone: [facility] 02-15-2023 14:17-0500 Systolic blood pressure 114 mm[Hg] Dr. Phu Espinoza Work Phone: [facility] 11-17-2022 10:41-0400 Body height 171.[address] Phu Espinoza Work Phone: [facility] 11-17-2022 10:41-0400 Body mass index (BMI) [Ratio] 42.8 kg/m2 Dr. Phu Espinoza Work Phone: [facility] 11-17-2022 10:41-0400 Body temperature 98.4 [degF] Dr. Phu Espinoza Work Phone: [facility] 11-17-2022 10:41-0400 Body weight 125.[address] Phu Espinoza Work Phone: [facility] 11-17-2022 10:41-0400 Diastolic blood pressure 78 mm[Hg] Dr. Phu Espinoza Work Phone: [facility] 11-17-2022 10:41-0400 Heart rate 74 /min Dr. Phu Espinoza Work Phone: [facility] 11-17-2022 10:41-0400 Respiratory rate 18 /min Dr. Phu Espinoza Work Phone: [facility] 11-17-2022 10:41-0400 SaO2% (BldA) [Mass fraction] 98 % Dr. Phu Espinoza Work Phone: [facility] 11-17-2022 10:41-0400 Systolic blood pressure 112 mm[Hg] Dr. Phu Espinoza Work Phone: [facility] 08-17-2022 09:18-0400 Body height 171.[address] Phu Espinoza Work Phone: [facility] 08-17-2022 09:18-0400 Body mass index (BMI) [Ratio] 42.6 kg/m2 Dr. Phu Espinoza Work Phone: [facility] 08-17-2022 09:18-0400 Body temperature 98.4 [degF] Dr. Phu Espinoza Work Phone: [facility] 08-17-2022 09:18-0400 Body weight 125.[address] Phu Espinoza Work Phone: [facility] 08-17-2022 09:18-0400 Diastolic blood pressure 69 mm[Hg] Dr. Phu Espinoza Work Phone: [facility] 08-17-2022 09:18-0400 Heart rate 90 /min Dr. Phu Espinoza Work Phone: 9(776)628-783491 [place] [address] 08-17-2022 09:18-0400 Respiratory rate 20 /min Dr. Phu Espinoza Work Phone: 4(594)685-654452 [address] 08-17-2022 09:18-0400 SaO2% (BldA) [Mass fraction] 94 % Dr. Phu Espinoza Work Phone: 5(137)118-256791 [place] [address] 08-17-2022 09:18-0400 Systolic blood pressure 100 mm[Hg] Dr. Phu Espinoza Work Phone: 7(390)512-128666 [address] [place] [address] 05-11-2022 10:40-0500 Body height 171.[address] Phu Espinoza Work Phone: 8(807)260-203966 [address] [place] [address] 05-11-2022 10:40-0500 Body mass index (BMI) [Ratio] 41.2 kg/m2 Dr. Phu Espinoza Work Phone: 0(592)960-205191 [place] [address] 05-11-2022 10:40-0500 Body temperature 97 [degF] Dr. Phu Espinoza Work Phone: 1(363)400-912491 [place] [address] 05-11-2022 10:40-0500 Body weight 121.[address] Phu Espinoza Work Phone: [facility] 05-11-2022 10:40-0500 Diastolic blood pressure 68 mm[Hg] Dr. Phu Espinoza Work Phone: 5(526)568-786991 [place] [address] 05-11-2022 10:40-0500 Heart rate 76 /min Dr. Phu Espinoza Work Phone: 5(385)654-996191 [place] [address] 05-11-2022 10:40-0500 Respiratory rate 18 /min Dr. Phu Espinoza Work Phone: [facility] 05-11-2022 10:40-0500 SaO2% (BldA) [Mass fraction] 94 % Dr. Phu Espinoza Work Phone: [facility] 05-11-2022 10:40-0500 Systolic blood pressure 96 mm[Hg] Dr. Phu Espinoza Work Phone: [facility] 03-29-2022 10:32-0500 Body temperature 98 [degF] Dr. Phu Espinoza Work Phone: [facility] 03-29-2022 10:32-0500 Diastolic blood pressure 90 mm[Hg] Dr. Phu Espinoza Work Phone: 2(974)277-107552 [address] 03-29-2022 10:32-0500 Heart rate 85 /min Dr. Phu Espinoza Work Phone: 9(937)273-462491 [place] [address] 03-29-2022 10:32-0500 Respiratory rate 20 /min Dr. Phu Espinoza Work Phone: 4(638)080-409891 [place] [address] 03-29-2022 10:32-0500 SaO2% (BldA) [Mass fraction] 99 % Dr. Phu Espinoza Work Phone: 3(426)698-065391 [place] [address] 03-29-2022 10:32-0500 Systolic blood pressure 130 mm[Hg] Dr. Phu Espinoza Work Phone: 5(854)389-478491 [place] [address] 03-25-2022 16:55-0500 Body mass index (BMI) [Ratio] 41.3 kg/m2 Dr. Phu Espinoza Work Phone: [facility] 03-25-2022 16:55-0500 Body temperature 98.2 [degF] Dr. Phu Espinoza Work Phone: 9(237)079-458891 [place] [address] 03-25-2022 16:55-0500 Body weight 121.[address] Phu Espinoza Work Phone: [facility] 03-25-2022 16:55-0500 Diastolic blood pressure 82 mm[Hg] Dr. Phu Espinoza Work Phone: [facility] 03-25-2022 16:55-0500 Heart rate 86 /min Dr. Phu Espinoza Work Phone: [facility] 03-25-2022 16:55-0500 Respiratory rate 18 /min Dr. Phu Espinoza Work Phone: [facility] 03-25-2022 16:55-0500 SaO2% (BldA) [Mass fraction] 99 % Dr. Phu Espinoza Work Phone: [facility] 03-25-2022 16:55-0500 Systolic blood pressure 128 mm[Hg] Dr. Phu Espinoza Work Phone: [facility] 02-05-2022 16:25-0500 Body temperature 98.4 [degF] Dr. Phu Espinoza Work Phone: [facility] Work Phone: 02-05-2022 16:25-0500 Diastolic blood pressure 70 mm[Hg] Dr. Phu Espinoza Work Phone: [facility] Work Phone: 02-05-2022 16:25-0500 Heart rate 70 /min Dr. Phu Espinoza Work Phone: [facility] Work Phone: 02-05-2022 16:25-0500 Respiratory rate 18 /min Dr. Phu Espinoza Work Phone: [facility] Work Phone: 02-05-2022 16:25-0500 SaO2% (BldA) [Mass fraction] 97 % Dr. Phu Espinoza Work Phone: [facility] Work Phone: 02-05-2022 16:25-0500 Systolic blood pressure 122 mm[Hg] Dr. Phu Espinoza Work Phone: [facility] Work Phone: 02-05-2022 06:00-0500 Body weight 117.[address] Phu Espinoza Work Phone: [facility] Work Phone: 02-04-2022 13:05-0500 Body height 170.[address] Phu Espinoza Work Phone: [facility] Work Phone: 02-03-2022 23:14-0500 Body mass index (BMI) [Ratio] 40.9 kg/m2 Dr. Phu Espinoza Work Phone: [facility] Work Phone: 02-03-2022 22:03-0500 Body temperature 100.8 [degF] Dr. Phu Espinoza Work Phone: [facility] Work Phone: 02-03-2022 22:03-0500 Diastolic blood pressure 76 mm[Hg] Dr. Phu Espinoza Work Phone: [facility] Work Phone: 02-03-2022 22:03-0500 Heart rate 100 /min Dr. Phu Espinoza Work Phone: [facility] Work Phone: 02-03-2022 22:03-0500 Respiratory rate 20 /min Dr. Phu Espinoza Work Phone: [facility] Work Phone: 02-03-2022 22:03-0500 SaO2% (BldA) [Mass fraction] 96 % Dr. Phu Espinoza Work Phone: [facility] Work Phone: 02-03-2022 22:03-0500 Systolic blood pressure 118 mm[Hg] Dr. Phu Espinoza Work Phone: [facility] Work Phone: 02-03-2022 18:47-0500 Body height 170.[address] Phu Espinoza Work Phone: [facility] Work Phone: 02-03-2022 18:47-0500 Body mass index (BMI) [Ratio] 39.1 kg/m2 Dr. Phu Espinoza Work Phone: [facility] Work Phone: 02-03-2022 18:47-0500 Body weight 113.[address] Phu Espinoza Work Phone: [facility] Work Phone: 11-24-2021 11:48-0400 Body mass index (BMI) [Ratio] 39.8 kg/m2 Dr. Phu Espinoza Work Phone: [facility] Work Phone: 11-24-2021 11:48-0400 Body weight 117.[address] Phu Espinoza Work Phone: [facility] Work Phone: 11-24-2021 11:48-0400 Diastolic blood pressure 80 mm[Hg] Dr. Phu Espinoza Work Phone: [facility] Work Phone: 11-24-2021 11:48-0400 Heart rate 72 /min Dr. Phu Espinoza Work Phone: [facility] Work Phone: 11-24-2021 11:48-0400 Respiratory rate 16 /min Dr. Phu Espinoza Work Phone: [facility] Work Phone: 11-24-2021 11:48-0400 SaO2% (BldA) [Mass fraction] 98 % Dr. Phu Espinoza Work Phone: [facility] Work Phone: 11-24-2021 11:48-0400 Systolic blood pressure 122 mm[Hg] Dr. Phu Espinoza Work Phone: [facility] Work Phone: 08-09-2021 10:43-0400 Body height 171.[address] Phu Espinoza Work Phone: [facility] Work Phone: 08-09-2021 10:43-0400 Body mass index (BMI) [Ratio] 42 kg/m2 Dr. Phu Espinoza Work Phone: [facility] Work Phone: 08-09-2021 10:43-0400 Body temperature 94.5 [degF] Dr. Phu Espinoza Work Phone: [facility] Work Phone: 08-09-2021 10:43-0400 Body weight 123.[address] Phu Espinoza Work Phone: [facility] Work Phone: 08-09-2021 10:43-0400 Diastolic blood pressure 76 mm[Hg] Dr. Phu Espinoza Work Phone: [facility] Work Phone: 08-09-2021 10:43-0400 Heart rate 71 /min Dr. Phu Espinoza Work Phone: [facility] Work Phone: 08-09-2021 10:43-0400 Respiratory rate 16 /min Dr. Phu Espinoza Work Phone: [facility] Work Phone: 08-09-2021 10:43-0400 SaO2% (BldA) [Mass fraction] 97 % Dr. Phu Espinoza Work Phone: [facility] Work Phone: 08-09-2021 10:43-0400 Systolic blood pressure 110 mm[Hg] Dr. Phu Espinoza Work Phone: [facility] Work Phone: 08-09-2021 10:43-0400 Body height 171.[address] Phu Espinoza Work Phone: [facility] Work Phone: 08-09-2021 10:43-0400 Body mass index (BMI) [Ratio] 42 kg/m2 Dr. Phu Espinoza Work Phone: [facility] Work Phone: 08-09-2021 10:43-0400 Body temperature 94.5 [degF] Dr. Phu Espinoza Work Phone: [facility] Work Phone: 08-09-2021 10:43-0400 Body weight 123.[address] Phu Espinoza Work Phone: [facility] Work Phone: 08-09-2021 10:43-0400 Diastolic blood pressure 76 mm[Hg] Dr. Phu Espinoza Work Phone: [facility] Work Phone: 08-09-2021 10:43-0400 Heart rate 71 /min Dr. Phu Espinoza Work Phone: [facility] Work Phone: 08-09-2021 10:43-0400 Respiratory rate 16 /min Dr. Phu Espinoza Work Phone: [facility] Work Phone: 08-09-2021 10:43-0400 SaO2% (BldA) [Mass fraction] 97 % Dr. Phu Espinoza Work Phone: [facility] Work Phone: 08-09-2021 10:43-0400 Systolic blood pressure 110 mm[Hg] Dr. Phu Espinoza Work Phone: [facility] Work Phone: 06-09-2021 13:46-0400 Body height 171.[address] Phu Espinoza Work Phone: [facility] Work Phone: 06-09-2021 13:46-0400 Body mass index (BMI) [Ratio] 43.7 kg/m2 Dr. Phu Espinoza Work Phone: [facility] Work Phone: 06-09-2021 13:46-0400 Body temperature 96.5 [degF] Dr. Phu Espinoza Work Phone: [facility] Work Phone: 06-09-2021 13:46-0400 Body weight 128.[address] Phu Espinoza Work Phone: [facility] Work Phone: 06-09-2021 13:46-0400 Diastolic blood pressure 88 mm[Hg] Dr. Phu Espinoza Work Phone: [facility] Work Phone: 06-09-2021 13:46-0400 Heart rate 87 /min Dr. Phu Espinoza Work Phone: [facility] Work Phone: 06-09-2021 13:46-0400 Respiratory rate 18 /min Dr. Phu Espinoza Work Phone: [facility] Work Phone: 06-09-2021 13:46-0400 SaO2% (BldA) [Mass fraction] 98 % Dr. Phu Espinoza Work Phone: [facility] Work Phone: 06-09-2021 13:46-0400 Systolic blood pressure 140 mm[Hg] Dr. Phu Espinoza Work Phone: [facility] Work Phone: 05-13-2021 07:19-0500 Body mass index (BMI) [Ratio] 45.2 kg/m2 Dr. Phu Espinoza Work Phone: [facility] Work Phone: 05-13-2021 07:19-0500 Body temperature 96.7 [degF] Dr. Phu Espinoza Work Phone: [facility] Work Phone: 05-13-2021 07:19-0500 Body weight 132.[address] Phu Espinoza Work Phone: [facility] Work Phone: 05-13-2021 07:19-0500 Diastolic blood pressure 88 mm[Hg] Dr. Phu Espinoza Work Phone: [facility] Work Phone: 05-13-2021 07:19-0500 Heart rate 93 /min Dr. Phu Espinoza Work Phone: [facility] Work Phone: 05-13-2021 07:19-0500 Respiratory rate 18 /min Dr. Phu Espinoza Work Phone: [facility] Work Phone: 05-13-2021 07:19-0500 SaO2% (BldA) [Mass fraction] 96 % Dr. Phu Espinoza Work Phone: [facility] Work Phone: 05-13-2021 07:19-0500 Systolic blood pressure 140 mm[Hg] Dr. Phu Espinoza Work Phone: [facility] Work Phone: Encounters Encounter Date Encounter Type Care Provider Facility Start: 03-05-2025 ambulatory [facility] y:[facility] Start: 01-02-2025 End: 01-02-2025 Dr. Phu Espinoza MD -Laboratory Phy Offi ce 3rd Prr Start: 01-02-2025 End: 01-02-2025 ambulatory Phu Espinoza Facility:[facility] Start: 12-24-2024 ambulatory Josh Gibbs Facility:[facility] Start: 12-24-2024 Non-patient / Non-visit Dr. Dk DICKENS -[facility] Start: 12-24-2024 Dr. Josh Gibbs MD -[facility] Start: 12-24-2024 End: 12-24-[address] Phu Espinoza MD Work Phone: -Cardiovascular Services Start: 12-24-[address] Josh Gibbs MD -Cardiovascular Services Work Phone: Start: 12-24-2024 End: 12-24-2024 Dr. Josh Gibbs MD -Cardiovascular Serv ices Work Phone: Start: 12-23-2024 End: 12-24-[address] Phu Espinoza MD Work Phone: -Laboratory Start: 12-23-2024 Patient encounter procedure Massiel Gibbons [employer] -Laboratory Work Phone: Start: 12-23-2024 End: 12-23-2024 Massiel Gibbons [employer] -Laboratory Work Phone: Start: 12-23-2024 End: 12-23-2024 ambulatory Massiel Shai Facility:[facility] Start: 12-12-2024 End: 12-12-[address] Phu Espinoza MD Work Phone: -Laboratory Start: 12-12-2024 End: 12-12-2024 Patient encounter procedure Massiel Gibbons [employer] -Laboratory Work Phone: Start: 12-12-2024 End: 12-12-2024 Massiel Gibbons [employer] -Laboratory Work Phone: Start: 12-12-2024 End: 12-12-2024 Patient encounter procedure Massiel Gibbons [employer] -[facility] Work Phone: Start: 12-12-2024 End: 12-12-2024 Massiel Gibbons [employer] -[facility] Work Phone: Start: 12-12-2024 End: 12-12-[address] Phu Espinoza MD Work Phone: -[facility] Start: 12-11-2024 End: 12-12-2024 ambulatory Massiel Shai Facility:[facility] Start: 12-11-2024 Non-patient / Non-visit Dr. Dk DICKENS -[facility] Start: 12-11-2024 Dr. Josh Gibbs MD -[facility] Start: 12-10-2024 End: 12-10-[address] Phu Espinoza MD Work Phone: -Cardiovascular Services Start: 12-10-2024 End: 12-10-[address] Josh Gibbs MD -Cardiovascular Services Work Phone: Start: 12-10-2024 End: 12-10-2024 Dr. Josh Gibbs MD -Cardiovascular Serv ices Work Phone: Start: 12-10-2024 End: 12-10-2024 ambulatory Josh Gibbs Facility:[facility] Start: 11-28-2024 Non-patient / Non-visit Dr. Dk DICKENS -[facility] Work Phone: Start: 11-28-2024 End: 11-28-[address] Phu Espinoza MD Work Phone: -Pulmonary Services/Neurology Start: 11-28-2024 End: 11-28-[address] Josh Gibbs MD -Pulmonary Services/Neurology Work Phone: Start: 11-28-2024 End: 11-28-2024 Dr. Josh Gibbs MD -[facility] Work Phone: Start: 11-28-2024 End: 11-28-2024 ambulatory Josh Gibbs Facility:[facility] Start: 11-18-2024 End: 11-18-[address] Phu Espinoza MD Work Phone: -[facility] Start: 11-18-2024 End: 11-18-[address] Phu Espinoza MD -[facility] Work Phone: Start: 11-18-2024 End: 11-18-2024 Dr. Phu Espinoza MD -[facility] Work Phone: Start: 11-18-2024 End: 11-18-2024 ambulatory Phu Espinoza Facility:[facility] Start: 11-08-2024 End: 11-08-[address] Josh Gibbs MD -[facility] Work Phone: Start: 11-08-2024 End: 11-08-2024 Dr. Josh Gibbs MD -[facility] Work Phone: Start: 11-08-2024 End: 11-08-[address] Phu Espinoza MD Work Phone: -[facility] Start: 10-30-2024 ambulatory Phu Espinoza Facility:[facility] Start: 10-30-2024 Non-patient / Non-visit Dr. Jona rojas MD -[facility] Start: 10-30-2024 Dr. Jona Vieira MD -[facility] Start: 10-30-2024 End: 10-30-[address] Phu Espinoza MD Work Phone: -Pulmonary Services/Neurology Start: 10-30-2024 End: 10-30-[address] Phu Espinoza MD -Pulmonary Services/Neurology Work Phone: Start: 10-30-2024 End: 10-30-2024 Dr. Phu Espinoza MD -Pulmonary Services/Neurology Work Phone: Start: 10-30-2024 End: 10-30-2024 ambulatory Phu Espinoza Facility:[facility] Start: 10-21-2024 End: 10-21-[address] Phu Espinoza MD Work Phone: -[facility] Start: 10-21-2024 End: 10-21-[address] Jodi Agee MD -[facility] Work Phone: Start: 10-21-2024 End: 10-21-2024 Dr. Jodi Agee MD -[facility] Work Phone: Start: 10-16-2024 End: 10-16-[address] Phu Espinoza MD Work Phone: -Laboratory Phy Office 3rd Flr Start: 10-16-2024 End: 10-16-[address] Phu Espinoza MD -Laboratory Phy Office 3rd Flr Start: 10-16-2024 End: 10-16-2024 Dr. Phu Espinoza MD -Laboratory Phy Offi ce 3rd Flr Start: 10-16-2024 End: 10-16-2024 ambulatory Phu Espinoza Facility:[facility] Start: 10-11-2024 End: 10-11-[address] [...] Start: 10-10-2024 End: 10-10-2024 ambulatory Phu Espinoza Facility:[facility] Start: 10-07-2024 Non-patient / Non-visit Dr. Dk DICKENS -[facility] Start: 10-07-2024 Dr. Josh Gibbs MD [facility] Start: 10-07-2024 ambulatory Ronda Schaefer Facility:[facility] Start: 10-07-2024 Non-patient / Non-visit Dr. Ronda espinal MD -[facility] Start: 10-07-2024 Dr. Ronda Schaefer MD [facility] Start: 10-07-2024 Non-patient / Non-visit Dr. Octavio cummings MD -[facility] Work Phone: Start: 10-07-2024 Dr. Octavio Archuleta MD -[facility] Work Phone: Start: 10-06-2024 Non-patient / Non-visit Dr. Kateryna Gomez MD -[facility] Work Phone: Start: 10-06-2024 Dr. Megan aagrwal MD -[facility] Work Phone: Start: 10-05-2024 End: 10-07-2024 ambulatory Junior Dunn Facility:[facility] Start: 10-05-2024 End: 10-07-2024 Evaluation and management of inpatient Dr. Junior Dunn DO -Progressive Care Unit Work Phone: Start: 10-05-2024 End: 10-07-[address] Phu Espinoza MD Work Phone: -Progressive Care Unit Start: 10-05-2024 End: 10-07-2024 Dr. Octavio Archuleta MD -[facility] Work Phone: Start: 07-03-2024 End: 07-03-[address] Phu Espinoza MD Work Phone: [facility] Work Phone: Start: 07-03-2024 End: 07-03-[address] Phu Espinoza MD -Laboratory Work Phone: Start: 07-03-2024 End: 07-03-2024 ambulatory [facility] Facility:[facility] Start: 05-02-2024 End: 05-02-2024 Patient encounter procedure Massiel Gibbons [employer] -Laboratory Work Phone: Start: 05-02-2024 End: 05-02-2024 Patient encounter procedure Massiel Gibbons [employer] -[facility] Work Phone: Start: 05-02-2024 End: 05-02-2024 ambulatory Massiel Shai Facility:[facility] Start: 05-02-2024 End: 05-02-2024 ambulatory Massiel Shai Facility:[facility] Start: 04-19-2024 End: 04-19-[address] Jodi Agee MD -Cat Scan, [facility] Work Phone: Start: 04-19-2024 End: 04-19-2024 ambulatory Jodi Agee Facility:[facility] Start: 03-22-2024 End: 03-22-[address] Jodi Agee MD -[facility] Work Phone: Start: 03-22-2024 End: 03-22-2024 ambulatory Jodi Agee Facility:[facility] Start: 03-04-2024 End: 03-04-2024 ambulatory Phu Jovan Snowok Facility:[facility] Start: 02-17-2024 ambulatory Phu Jovan Alexis Facility:[facility] Start: 02-16-2024 End: 02-16-2024 ambulatory Massiel Shai Facility:[facility] Start: 06-22-2023 End: 06-22-[address] Phu Espinoza Work Phone: [facility] Work Phone: Start: 06-22-2023 End: 06-22-[address] Phu Espinoza Work Phone: [facility]-Radiology, [facility] Work Phone: Start: 04-03-2023 End: 04-03-[address] Phu Espinoza Work Phone: [facility] Work Phone: Start: 04-03-2023 End: 04-03-[address] Phu Espinoza Work Phone: [facility]-Laboratory, Phy Office 3rd Flr Start: 03-13-2023 Non-patient / Non-visit Dr. Sloan Espinoza Work Phone: [facility] Start: 03-13-2023 End: 03-13-2023 Admission to same day surgery center Dr. Phu Espinoza Work Phone: [facility]-Endoscopy Work Phone: Start: 03-13-2023 End: 03-13-[address] Phu Espinoza Work Phone: [facility] Work Phone: Start: 03-02-2023 End: 03-02-[address] Phu Espinoza Work Phone: [facility] Work Phone: Start: 03-02-2023 End: 03-02-[address] [facility] Start: 03-02-2023 End: 03-02-[address] Phu Espinoza Work Phone: [facility] Endocr[facility]ology Work Phone: Start: 02-15-2023 End: 02-15-[address] Phu Espinoza Work Phone: [facility] Work Phone: Start: 02-08-2023 End: 02-08-[address] Phu Espinoza Work Phone: [facility] Work Phone: Start: 02-08-2023 End: 02-08-[address] Phu Espinoza Work Phone: [facility], y Office 3rd Prr Start: 01-11-2023 End: 01-11-[address] Phu Espinoza Work Phone: [facility] Work Phone: Start: 01-11-2023 End: 01-11-[address] Phu Espinoza Work Phone: [facility], Specimen Work Phone: Start: 01-09-2023 End: 01-09-[address] Phu Espinoza Work Phone: [facility] Work Phone: Start: 01-09-2023 End: 01-09-[address] [facility] Start: 01-03-2023 End: 01-03-[address] Phu Espinoza Work Phone: [facility], [facility] Office 3rd Prr Start: 11-17-2022 End: 11-17-[address] Phu Espinoza Work Phone: [facility] Endocrinology Work Phone: Start: 08-17-2022 End: 08-17-[address] Phu Espinoza Work Phone: [facility] Work Phone: Start: 08-17-2022 End: 08-17-[address] Phu Espinoza Work Phone: [facility] Work Phone: Start: 08-17-2022 End: 08-17-[address] Phu Espinoza Work Phone: [facility] Endocr[facility]ology Work Phone: Start: 06-28-2022 End: 06-28-[address] Phu Espinoza Work Phone: [facility] Work Phone: Start: 06-28-2022 End: 06-28-[address] Phu Espinoza Work Phone: [facility], [facility] Office 3rd Prr Start: 05-11-2022 End: 05-11-[address] Phu Espinoza Work Phone: [facility] Start: 03-29-2022 End: 03-29-[address] Phu Espinoza Work Phone: [facility] Start: 03-25-2022 End: 03-25-[address] Phu Espinoza Work Phone: [facility] Start: 02-08-2022 End: 02-08-[address] Phu Espinoza Work Phone: [facility] Work Phone: Start: 02-08-2022 End: 02-08-[address] Phu Espinoza [facility] Start: 02-05-2022 Non-patient / Non-visit Dr. Sloan Espinoza Work Phone: [facility] Start: 02-04-2022 Non-patient / Non-visit Dr. Sloan Espinoza Work Phone: [facility] Inpatient Phys[facility] Start: 02-04-2022 Non-patient / Non-visit Dr. Sloan Espinoza Work Phone: [facility] Start: 02-03-2022 End: 02-05-2022 Evaluation and management of inpatient Dr. Phu Espinoza Work Phone: [facility] Start: 02-03-[address] Phu Espinoza Work Phone: [facility] Work Phone: Start: 12-21-2021 End: 12-21-[address] Phu Epsinoza Work Phone: [facility], [facility] Office 3rd Flr Start: 11-24-2021 End: 11-24-[address] Phu Espinoza Work Phone: [facility] Start: 10-20-2021 End: 10-20-[address] Phu Espinoza Work Phone: [facility] Start: 09-21-2021 End: 09-21-[address] Phu Espinoza Work Phone: [facility], [facility] Office 3rd Flr Start: 08-25-2021 End: 08-25-[address] Phu Espinoza Work Phone: [facility] Start: 08-09-2021 End: 08-09-[address] Phu Espinoza Work Phone: [facility] Start: 07-21-2021 End: 07-21-[address] Phu Espinoza Work Phone: [facility], y Office 3rd Flr Start: 07-20-2021 End: 07-20-[address] Phu Espinoza Work Phone: [facility], y Office 3rd Flr Start: 07-19-2021 End: 07-19-[address] Phu Espinoza Work Phone: [facility], y Office 3rd Flr Start: 06-23-2021 End: 06-23-[address] Phu Espinoza Work Phone: [facility], y Office 3rd Flr Start: 06-09-2021 End: 06-09-[address] Phu Espinoza Work Phone: [facility], [facility] Start: 05-18-2021 End: 05-18-[address] Phu Espinoza Work Phone: [facility], Specimen Start: 05-17-2021 End: 05-17-[address] Phu Espinoza Work Phone: [facility], y Office 3rd Flr Start: 05-13-2021 End: 05-13-[address] Phu Espinoza Work Phone: [facility] Start: 04-14-2021 End: 04-14-[address] Phu Espinoza Work Phone: [facility], y Office 3rd Flr Start: 03-10-[address] Phu Espinoza Work Phone: [facility] Office 3rd Flr Start: 09-14-2006 End: 09-14-2006 Patient encounter procedure Fransisco Cary Work Phone: [facility] Start: 09-14-2006 Results Only Fransisco cherry Work Phone: [facility] Procedures Date Procedure Procedure Detail Performing [...] Phone: Comment on above: Performed at: [address] [id number] Director: Spencer Carbajal PhD, Phone: [phone] Start: 10-10-2024 In-vitro immunologic test Dr. Phu [...] Work Phone: Start: 11-08-2024 Tilt table test [facility] Start: 11-08-2024 End: 11-08-2024 Evaluation of diagnostic study results [facility] Start: 10-10-2024 Folic acid measurement, RBC [facility] Start: 10-10-2024 In-vitro immunologic test [facility] Start: 10-10-2024 [facility] Start: 10-10-2024 Blood culture Blood Culture [facility] Start: 10-07-2024 Patient discharge [facility] Start: 10-06-2024 [facility] Start: 10-06-2024 Following clinical pathway protocol [facility] Start: 10-06-2024 [facility] Start: 10-05-2024 Following clinical pathway protocol [facility] Start: 10-05-2024 Ambulation without limitation [facility] Start: 10-05-2024 Assessment of risk of venous thromboembolism [facility] Start: 10-05-2024 Care regimes management [facility] Start: 10-05-2024 Insertion of catheter into peripheral vein [facility] Start: 10-05-2024 Measuring intake and output [facility] Start: 10-05-2024 Notification of physician [facility] Start: 10-05-2024 Oxygen therapy [facility] Start: 10-05-2024 Providing care according to standard [facility] Start: 10-05-2024 End: 10-05-2024 [facility] Start: 10-05-2024 Cardiovascular stress test using pharmacologic stress agent Nuclear Stress Test - Chemical [facility] Start: 10-05-2024 Verification routine [facility] Start: 10-05-2024 Admission procedure [facility] Start: 10-05-2024 Hospital admission, emergency, from emergency room, medical nature [facility] Start: 10-05-2024 [facility] Start: 03-13-2023 Colonoscopy w/biopsy single/multiple COLONOSCOPY AND BIOPSY [facility] Start: 03-13-2023 Egd transoral biopsy single/multiple EGD BIOPSY SINGLE/MULTIPLE [facility] Start: 03-13-2023 Patient discharge [facility] Start: 02-05-2022 Patient discharge [facility] Work Phone: Start: 02-04-2022 Care planning and problem solving actions [facility] Work Phone: Start: 02-03-2022 Following clinical pathway protocol [facility] Work Phone: Start: 02-03-2022 Assessment of risk of venous thromboembolism [facility] Work Phone: Start: 02-03-2022 Care regimes management [facility] Work Phone: Start: 02-03-2022 Incentive spirometry [facility] Work Phone: Start: 02-03-2022 Inhalation therapy procedure [facility] Work Phone: Start: 02-03-2022 Insertion of catheter into peripheral vein [facility] Work Phone: Start: 02-03-2022 Introduction of urinary catheter [facility] Work Phone: Start: 02-03-2022 Measuring intake and output [facility] Work Phone: Start: 02-03-2022 Providing care according to standard [facility] Work Phone: Start: 02-03-2022 Provision of activity privileges [facility] Work Phone: Start: 02-03-2022 Referral to general surgeon [facility] Work Phone: Start: 02-03-2022 End: 02-03-2022 [facility] Work Phone: Start: 02-03-2022 Verification routine [facility] Work Phone: Start: 02-03-2022 Admission procedure [facility] Work Phone: Start: 02-03-2022 End: 02-03-2022 [facility] Work Phone: Start: 02-03-2022 End: 02-03-2022 Blood culture [facility] Work Phone: Start: 02-03-2022 Patient referral to dietitian [facility] Work Phone: Start: 02-10-2021 HPV TESTING HPV TESTING [facility] Start: 02-10-2021 PAP TESTING PAP TESTING [facility] Start: 11-26-2019 Influenza vaccination INFLUENZA (#1) [facility] Start: 02-18-2017 Mammography MAMMOGRAM [facility] Start: 1989 Urine microalbumin profile DTAP,TDAP,TD (1 - Tdap) [facility] Start: 1988 ANNUAL PCP TEAM CHRONIC DISEASE VISIT ANNUAL PCP TEAM CHRONIC DISEASE VISIT [facility] Start: 1988 Hepatitis B surface antibody level LDL CHOLESTEROL [facility] Start: 1988 HEPATITIS C SCREENING HEPATITIS C SCREENING [facility] Start: 1988 HIV SCREENING HIV SCREENING [facility] Start: 1986 ONE PNEUMOVAX PRIOR TO AGE 65 ONE PNEUMOVAX PRIOR TO AGE 65 [facility] Start: 1980 [object Object] DIABETIC FOOT EXAM [facility] Start: 1980 Hepatitis B screening URINE ALBUMIN:CREATININE RATIO [facility] Start: 1980 Hepatitis C antibody, confirmatory test DILATED RETINAL EXAM [facility] Start: 1975 HbA1c (Bld) [Mass fraction] [facility] in Ambulatory ECG [facility] Anion gap in Serum o r Plasma [facility] Bacteria identified in Blood by Culture Blood Culture [facility] Work Phone: Bacteria identified in Urine by Culture Urine Culture [facility] Work Phone: Blood culture [facility] Work Phone: BUN/Creatinine ratio [facility] Calcium [Mass/volume ] in Serum or Plasma [facility] Carbon dioxide, tota l [Moles/volume] in Central venous blood [facility] Cardiovascular stres s testing [facility] Colonoscopy [facility] Creatinine [Mass/vol ume] in Serum or Plasma [facility] Folate [Moles/volume ] in Serum or Plasma [facility] Glucose [Mass/volume ] in Serum or Plasma [facility] Hematocrit [Volume Fraction] of Blood [facility] Hemoglobin A1c/Hemoglobin.total in Blood [facility] Work Phone: Hemoglobin A1c/Hemoglobin.total in Blood [facility] Laboratory data interpretation [facility] Measurement of Borre ericka burgdorferi antibody [facility] Measurement of renal function [facility] Mycobacterium tuberc ulosis tuberculin stimulated gamma interferon [Presence] in Blood [facility] Patient Education ED Abdominal P ain Unkn Cause Fem [facility] Work Phone: Patient referral [facility] Work Phone: Potassium measurement [facility] Serum chloride measurement [facility] Sodium measurement [facility] T4 free measurement [facility] Work Phone: Thyroid stimulating hormone measurement [facility] Work Phone: Troponin T.cardiac [Mass/volume] in Serum or Plasma by High sensitivity method [facility] Troponin T.cardiac [Mass/volume] in Serum or Plasma by High sensitivity method [facility] Urea nitrogen [Mass/ volume] in Serum or Plasma [facility] Immunizations Immunization Date Immunization Notes Care Provider Fa [facility] 12-21-2021 Covid ([employer]) Dr. Phu Epsinoza Work Phone: [facility] 12-21-2021 influenza, injectabl e, quadrivalent, preservative free Dr. Phu Espinoza Work Phone: [facility] 12-21-2021 influenza, seasonal, injectable Dr. Phu Espinoza Work Phone: [facility] Payers Date Payer Category Payer Private Health Insurance [id number] 2024 Self-pay [id number] 2024 Unknown [id number] 1999 Unknown MMO ZZZM[employer] SUPER MED PLUS [id number] 1999-2008 PPO [id number] Unknown [id number] Unknown [facility] PACKAGE PLAN [id number] Unknown [id number] 2.16.840.1.385206.3.579.2.4 62 Unknown [id number] 2.16.840.1.733043.3.579.2.4 62 Unknown [id number] 2.16.840.1.918628.3.579.2.4 62 Unknown [id number] 2.16.840.1.941905.3.579.2.4 62 Unknown [id number] 2.16.840.1.748999.3.579.2.4 62 Unknown [id number] 2.16.840.1.602873.3.579.2.4 62 Unknown [id number] 2.16.840.1.600633.3.579.2.4 62 Unknown [id number] 2.16.840.1.525835.3.579.2.4 62 Unknown [id number] 2.16.840.1.402632.3.579.2.4 62 Unknown [id number] 2.16.840.1.307595.3.579.2.4 62 Unknown [id number] 2.16.840.1.962253.3.579.2.4 62 Unknown [id number] 2.16.840.1.269504.3.579.2.4 62 Unknown [id number] 2.16.840.1.670839.3.579.2.4 62 Unknown [id number] 2.16.840.1.782217.3.579.2.4 62 Unknown [id number] 2.16.840.1.762938.3.579.2.4 62 Unknown [id number] 2.16.840.1.434913.3.579.2.4 62 Unknown [id number] 2.16.840.1.091726.3.579.2.4 62 Unknown [id number] 2.16.840.1.680506.3.579.2.4 62 Unknown [id number] 2.16.840.1.229047.3.579.2.4 62 Unknown [id number] 2.16.840.1.720547.3.579.2.4 62 Unknown [id number] 2.16.840.1.113407.3.579.2.4 62 Unknown [id number] 2.16.840.1.918580.3.579.2.4 62 Unknown [id number] 2.16.840.1.726085.3.579.2.4 62 Unknown [id number] 2.16.840.1.773692.3.579.2.4 62 Unknown [id number] 2.16.840.1.882858.3.579.2.4 62 Unknown [id number] 2.16.840.1.847714.3.579.2.4 62 Unknown [id number] 2.16.840.1.070024.3.579.2.4 62 Unknown [id number] 2.16.840.1.603969.3.579.2.4 62 Unknown [id number] 2.16.840.1.566332.3.579.2.4 62 Unknown [id number] 2.16.840.1.284289.3.579.2.4 62 Unknown [id number] 2.16.840.1.147524.3.579.2.4 62 Unknown [id number] 2.16.840.1.450678.3.579.2.4 62 Unknown [id number] 2.16.840.1.454696.3.579.2.4 62 Social History Date Type Detail Facility Start: 02-08-2006 End: 10-21-2024 Tobacco smoking status NHIS Never smoker [facility] Start: 02-08-2006 Alcohol intake 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) [facility] Sex Assigned At Not on file [facility] Start: 06-09-2021 End: 03-07-2023 Tobacco smoking status SCIS Unknown if ever smoked [facility] Start: 05-18-2020 None [facility] Start: 05-18-2020 Spouse/ Signif icant Other [facility] Start: 02-03-2019 Non-smoker [facility] Start: 1970 Sex Assigned At Female [facility] Start: 07-09-2024 Sex Female (finding) [facility] Sex [facility] Goals Date Patient Goal Desired Activity /State Functional Status Date Assessment Result Facility 10-07-2024 Functional status With Assist of 1 [facility] Work Phone: 10-07-2024 Functional status Ambulates [facility] Work Phone: 02-05-2022 Functional status Up ad edgard;Bathroom Priv ilege [facility] Work Phone: Mental Status Date Assessment Result Facility 10-07-2024 Cognitive function Voice/Name [facility] Work Phone: 10-05-2024 Cognitive function Voice/Name [facility] Work Phone: 03-13-2023 Cognitive function Voice/Name [facility] Work Phone: 03-13-2023 Cognitive function Patient Orien tation Person;Place;Time [facility] Work Phone: 02-05-2022 Cognitive function Voice/Name [facility] Work Phone: 02-03-2022 Cognitive function Level Of Cons ciousness Awake;Alert;Appropriate;Follow s Commands [facility] Work Phone: Clinical Notes 03-13-2023 to 12-24-2024 Note Date & Type Note Facility 12-24-2024 Procedure note [facility] 12-12-2024 Progress note [facility] 10-30-2024 Procedure note [facility] 10-07-2024 Discharge summary [facility] 10-07-2024 Note [facility] Medical Records Department [facility] [place] [address] Discharge Summary 10/07/24 1608 MR#: [id number] Acct: [id number] Name: ARLEN NGUYEN Rep #: [id number] : 1970 54 From: Octavio Archuleta MD PCP: Dr. Phu Espinoza MD Status:ADM NATALIE Location: [place] [address] Providers Date of Admission: 10/05/24 Date of Discharge: 10/07/24 Primary Care Physician: Dr. Phu Espinoza MD Reason For Visit: CHEST PAIN Diagnosis Discharge Diagnosis (1) Chest pain: Status: Acute Code(s): R07.9 - Chest pain, unspecified Plan Patient is a 54-year-old female who presented with chest pain 1. Chest pain ??? Patient was placed on a monitored bed ND was ruled out with serial cardiac enzymes [...] % (Auto) 48.3, Lymph % (Auto) 37.9, Hall % (Auto) 10.8 H, Eos % (Auto) [...] Maria E Dunn (more content not included)... [facility] 10-07-2024 Progress note Note Date/Time October 07, 2024 12:29pm [facility] Medical Records Department [address] [facility] [place] [address] Progress Note - Hospitalist 10/07/24 1004 MR#: [id number] Acct: [id number] Name: ARLEN NGUYEN Rep #:[id number] : 1970 54 From: Octavio Archuleta MD PCP: Dr. Phu Espinoza MD Status:ADM I NO Location: [place] [address] Reason for Visit Chief Complaint: Chest pain [...] Neut % (Auto) 48.3, Lymph % (Auto) 37.9,Hall % (Auto) 10.8 H, Eos % (Auto) [...] Patient was placed on a monitored bed ND was ruled out with serial cardiac enzymes [...] Subcu heparin Charges/Coding Visit Charges Inpatient E&M: 20401 Subs Hosp L2 10/07/24 1229 <Electronically signed by Octavio Archuleta MD> Cosigner Signature (if applicable): CC: ~ Signed [facility] Work Phone: 1(459) 945-804607-14-2025 Hospital Discharge instructionsAdditional Instructions Date [facility]: [facility] Work Phone: 1(392) 497-656107-14-2025 Progress note [facility] Medical Records Department [address] [place] [address] Progress Note - Hospitalist 10/07/24 1004 MR#: [id number] Acct: [id number] Name: ARLEN NGUYEN Rep #:[id number] : 1970 54 From: Octavio Archuleta MD PCP: Dr. Phu Espinoza MD Status:ADM I NO Location: [place] [address] Reason for Visit Chief Complaint: Chest pain [...] 0.300,Neut % (Auto) 48.3, Lymph % (Auto) 37.9,Hall % (Auto) 10.8 H, Eos % (Auto) [...] Patient was placed on a monitored bed ND was ruled out with serial cardiac enzymes [...] Subcu heparin Charges/Coding Visit Charges Inpatient E&M: 44323 Subs Hosp L2 10/07/24 1229 Cosigner Signature (if applicable): CC: ~ Signed [facility]07-13-2025 Progress note Author Megan Gomez [facility] Note Date/Time October 06, 2024 12:2 2pm [facility] Medical Records Department [address] [place] [address] Progress Note - Hospitalist 10/06/24706 MR#: [id number] Acct: [id number] Name: ARLEN NGUYEN Rep #:[id number] : 1970 54 From: Megan Gomez MD PCP: Dr. Phu Espinoza MD Status:ADM I NO Location: [place] [address] Reason for Visit Reason for Visit: Diagnoses [...] % (Auto) 51.7, Lymph % (Auto) 36.5, Hall % (Auto) 9.5, Eos % (Auto) 1.6, [...] IMPRESSION: No acute cardiopulmonary abnormality. Reading Location: [id number] Physical Exam Narrative Physical Examination: General: Awake, [...] report, Morbid obesity who presents to the [facility] ED on 10/05/2024 with onset [...] prophylaxis: Lovenox. Charges/Coding Visit Charges Inpatient E&M: 12774 Subs Hosp L2 10/06/24 1222 <Electronically signed by Megan Gomez MD> Cosigner Signature (if applicable): CC: ~ Signed [facility] Work Phone: 1(877) 902-359707-13-2025 Progress note [facility] Medical Records Department [address] [facility] [place] [address] Progress Note - Hospitalist 10/06/24706 MR#: [id number] Acct: [id number] Name: ALREN NGUYEN Rep #:[id number] : 1970 54 From: Megan Gomez MD PCP: Dr. Phu Espinoza MD Status:ADM I NO Location: [place] [address] Reason for Visit Reason for Visit: Diagnoses [...] % (Auto) 51.7, Lymph % (Auto) 36.5, Hall % (Auto) 9.5, Eos % (Auto) 1.6, [...] Reading Location: [facility] Physical Exam Narrative Physical Examination: General: Awake, [...] report, Morbid obesity who presents to the [facility] ED on 10/05/2024 with onset [...] prophylaxis: Lovenox. Charges/Coding Visit Charges Inpatient E&M: 30407 Subs Hosp L2 10/06/24 1222 Cosigner Signature (if applicable): CC: ~ Signed [facility]07-13-2025 History and physical note Author Junior Dunn [facility] Note Date/Time October 05, 2024 11:5 8pm [facility] Medical Records Department [address] [place] [address] H&P Exam - Hospitalist 10/05/242109 MR#: [id number] Acct: [id number] Name: ARLEN NGUYEN Rep #:[id number] : 1970 54 From: Junior allison DO PCP: Dr. Phu Espinoza MD Status:ADM I NO Location: [place] [address] 1 HPI - General General Date of Admission: 10/05/24 Date of Service: 10/05/24 Chief Complaint: Chest pain HPI Narrative ARLEN NGUYEN, is a 54 F who presented to [facility] ED on 10/05/2024 with chest pain. [...] concerns. Will be admitted for further management. [facility] Medical History Post-menopausal Wears contact lenses Anxiety [...] % (Auto) 51.7, Lymph % (Auto) 36.5, Hall % (Auto) 9.5, Eos % (Auto) 1.6, [...] IMPRESSION: No acute cardiopulmonary abnormality. Reading Location: [id number] Assessment & Plan Assessment/Plan (1) Chest pain: PLAN: Plan Patient is a 54-year-old female who presented [facility] ED on 10/05/2024 with chest pain. [...] 75 minutes. Charges/Coding Visit Charges Inpatient E&M: 78524 Init Hosp L3 10/05/24 1125 <Electronically signed by Junior Dunn DO> Cosigner Signature (if applicable): CC: Dr. Junior Dunn DO; Dr. Phu Espinoza MD~ Signed [facility] Work Phone: 1(178) 343-171007-12-2025 History and physical note [facility] Medical Records Department [address] [place] [address] H&P Exam - Hospitalist 10/05/242109 MR#: [id number] Acct: [id number] Name: ARLEN NGUYEN Rep #:[id number] : 1970 54 From: Junior allison DO PCP: Dr. Phu Espinoza MD Status:ADM I NO Location: [facility] [id number] 1 HPI - General General Date of Admission: 10/05/24 Date of Service: 10/05/24 Chief Complaint: Chest pain HPI Narrative ARLEN NGUYEN, is a 54 F who presented to [facility] ED on 10/05/2024 with chest pain. [...] concerns. Will be admitted for further management. [facility] Medical History Post-menopausal Wears contact lenses Anxiety [...] % (Auto) 51.7, Lymph % (Auto) 36.5, Hall % (Auto) 9.5, Eos % (Auto) 1.6, [...] IMPRESSION: No acute cardiopulmonary abnormality. Reading Location: [id number] Assessment & Plan Assessment/Plan (1) Chest pain: PLAN: Plan Patient is a 54-year-old female who presented [facility] ED on 10/05/2024 with chestpain. 1. [...] 75 minutes. Charges/Coding Visit Charges Inpatient E&M: 45894 Init Hosp L3 10/05/24 5695 Cosigner Signature (if applicable): CC: Dr. Junior Dunn DO; Dr. Phu Espinoza MD~ Signed [facility]07-12-2025 Discharge summary Author Anton Thacker [facility] Note Date/Time October 05, 2024 9:51 pm [facility] Medical Records Department [address] [place] [address] Emergency Department Summary 10/05/24 MR#: [id number] Acct: [id number] Name: ARLEN NGUYEN Rep #:[id number] : 1970 54 From: Anton Thacker DO PCP: Dr. Phu Espinoza MD Status:ADM I NO Location: [place] [address] HPI History of Present Illness Chief Complaint: [...] surgery although she recently had travel to [place] by car but it was less than 4 hours. No history of PE or DVT. She has no heart history. She is a diabetic and has history of hypertension and high cholesterol. Patient also with historyof anxiety and history of GERD. Currently rates her pain a 5 out of 10. [facility] Medical History Post-menopausal Wears contact lenses Anxiety [...] % (Auto) 51.7 Lymph % (Auto) 36.5 Hall % (Auto) 9.5 Eos % (Auto) 1.6 [...] IMPRESSION: No acute cardiopulmonary abnormality. Reading Location: [id number] 1 view chest x-ray obtained interpreted by [...] MD [Primary Care Provider] - Print Language: Citizen Of [place] Disposition Disposition: Acute Care Hospital [facility] What to do if you have Problems For any increased pain, shortness of breath, bleeding, nausea or vomiting, chestpain, or any unexpected problems, contact your Primary Care Provider. Call [facility] ([phone]) or report to the closest Emergency Room. Call 911 if necessary. 10/05/242150 <Electronically signed by Anton Thacker DO> Cosigner Signature (if applicable): CC: Dr. Phu Espinoza MD ~ Signed [facility] Work Phone: 1(300) 215-428307-12-2025 Evaluation note* Diagnosis Onset Date Resolution Status Admit Date Acute coronary syndrome acute 2024 9:10pm Chest pain acute October 05 9:10pm Diabetes acute October 05 9:10pm Hypertension chronic October 05 025 9:10pm [facility] Work Phone: 1(947) 924-463607-12-2025 Evaluation note* Diagnosis Onset Date Resolution Status Admit Date Diabetes acute October 05 9:10pm Hypertension chronic October 05 025 9:10pm Chest pain resolved October 05 9:10pm Acute coronary syndrome inactive 2024 9:10pm [facility] Work Phone: 1(201) 342-642207-12-2025 Evaluation note* Diagnosis Onset Date Resolution Status Admit Date Acute coronary syndrome acute 2024 9:10pm Diabetes acute October 05 9:10pm Chest pain resolved October 05 9:10pm Hypertension deleted October 05 025 9:10pm Fecal occult blood test positive acute October 21, 2024 8:18am [facility] Work Phone: 1(443) 635-540107-12-2025 Evaluation note* Diagnosis Onset Date Resolution Status Admit Date Acute coronary syndrome acute 2024 9:10pm Diabetes acute October 05 9:10pm Chest pain resolved October 05 9:10pm Hypertension deleted October 05 025 9:10pm Fecal occult blood test positive acute October 21, 2024 8:18am Bradycardia acute November 08, 2024 12:57pm Near syncope acute November 08, 2024 12:57pm [facility] Work Phone: 1([phone]) 744-511407-12-2025 Evaluation note* Diagnosis Onset Date Resolution Status [...] 45.0-49.9, adult chronic December 12, 2024 10:37am [facility] Work Phone: 1(163) 697-497107-12-2025 Discharge summary [facility] Medical Records Department [address] [place] [address] Emergency Department Summary 10/05/24 MR#: [id number] Acct: [id number] Name: ARLEN NGUYEN Rep #:[id number] : 1970 54 From: Anton Thacker DO PCP: Dr. Phu Espinoza MD Status:ADM I NO Location: [place] [address] HPI History of Present Illness Chief Complaint: [...] surgery although she recently had travel to [place] by car but it was less than 4 hours. No history of PE or DVT. She has no heart history. She is a diabetic and has history of hypertension and high cholesterol. Patient also with historyof anxiety and history of GERD. Currently rates her pain a 5 out of 10. [facility] Medical History Post-menopausal Wears contact lenses Anxiety [...] % (Auto) 51.7 Lymph % (Auto) 36.5 Hall % (Auto) 9.5 Eos % (Auto) 1.6 [...] Reading Location: [facility] 1 view chest x-ray obtained interpreted by [...] MD [Primary Care Provider] - Print Language: Citizen Of [place] Disposition Disposition: Acute Care Hospital [facility] What to do if you have Problems For any increased pain, shortness of breath, bleeding, nausea or vomiting, chestpain, or any unexpected problems, contact your Primary Care Provider. Call [facility] ([phone]) or report tothe closest Emergency Room. Call 911 if necessary. 10/05/242150 Cosigner Signature (if applicable): CC: Dr. Phu Espinoza MD ~ Signed [facility]07-12-2025 Radiology Diagnostic study note [facility] Imaging Services [address] [place] [address] Chest 1 View (Portable) MR#: [id number] Acct: [id number] Name: ARLEN NGUYEN Rep #: [id number] : 1970 F 54 From: Kylah Caraballo MD PCP: Dr. Phu Espinoza MD Status: REG E R Study:Chest 1 View (Portable) Date of Exam: 10/05/24 Exam# [id number] Ordering Dr: Arabella Thacker DO PROCEDURE: CHEST [...] IMPRESSION: No acute cardiopulmonary abnormality. Reading Location: [id number] CC: Dr. Anton Thacker DO; Dr. Phu Espinoza MD ~ Digital Content Manager: Signed [facility]07-12-2025 Evaluation note* Diagnosis Onset Date Resolution Status Admit Date Acute coronary syndrome acute J maile2024 9:10pm Chest pain acute October 05 9:10pm Diabetes acute October 05 9:10pm Hypertension chronic October 05, 025 9:10pm [facility] Work Phone: [phone]) [phone] Evaluation note* Diagnosis Onset Date Resolution Status Admit Date Incisional hernia acute Decembe r 2023 1:20pm CKD (chronic kidney disease) stage 3, GFR 30-59 ml/min chronic ua 2024 11:39am Diabetes chronic May 02, 2024 11:39am High cholesterol chronic May 02, 2024 11:39am Hypertension chronic April 11:39am Hypothyroidism chronic May 022024 11:39am Microalbuminuria chronic May 02, 2024 11:39am Obesity chronic May 02, 2024 11:39am [facility] Work Phone: 1([phone]) 758-362112-18-2023 History and physical note Author Jodi Agee [facility] March 13, 2023 7:14am Note Date/Time March 13, 2023 7:12am [facility] Medical Records Department [address] [place] [address] History & Physical Exam 03/13/23 0710 MR#: [id number] Acct: [id number] Name: ARLEN NGUYEN Rep #:[id number] : 1970 52 From: Jodi Agee MD PCP: Dr. Phu Espinoza MD Status:REG S DC Location: [place] [address] History and Physical Date of Admission: 03/13/23 Date of Service: 02/15/23 MR#: [id number] Acct: [id number] Name: ARLEN NGUYEN Rep #: [id number] : 1970 Provider: Dr. Jodi Agee MD Age/Sex: 52/F Location: [facility] Status: Signed Intake Vital Signs 11/17/2309:41 02/15/2314:17 Height 5 ft 7.5 in 5 ft 7 in Weight: 277 lb BMI 43.4 BP 114/75 Blood Pressure Location Rt brachial Position Sitting Respiration 18 Intake Visit Reasons: Anemia Chief Complaint: anemia Community Relations Officer Required: No Is patient in pain?: No [...] not take any other PPI or other cfud-vfc-czymuvc medications. Patient is adopted does not know [...] Dulcolax split prep. Jodi Agee M.D. Pager: [phone] [facility] [address] [place] [address], [facility], [address] [place] [address] Office: [phone] Coding Level of Care Code Off vis,new,level [...] MD; Dr. Jodi Agee MD ~* Signed [facility] Work Phone: 1(344) 620-722712-18-2023 Procedure [facility] 03-13-2023 Procedure [facility]12-18-2023 Procedure note [facility]12-18-2023 Procedure [facility] Discharge summary Author Octavio Archuleta [facility] Note Date/Time October 07, 2024 4:16 pm [facility] Medical Records Department [address] [place] [address] Discharge Summary 10/07/24 1608 MR#: [id number] Acct: [id number] Name: ARLEN NGUYEN Rep #:[id number] : 1970 54 From: Octavio Archuleta MD PCP: Dr. Phu Espinoza MD Status:ADM I NO Location: [place] [address]- Providers Date of Admission: 10/05/24 Date of Discharge: 10/07/24 Primary Care Physician: Dr. Phu Espinoza MD Reason For Visit: CHEST PAIN Diagnosis Discharge Diagnosis (1) Chest pain: Status: Acute Code(s): R07.9 - Chest pain, unspecified Plan Patient is a 54-year-old female who presented with chest pain 1. Chest pain ? Patient was placed on a monitored bed ND was ruled out with serial cardiac enzymes [...] Neut % (Auto) 48.3, Lymph % (Auto) 37.9,Hall % (Auto) 10.8 H, Eos % (Auto) [...] Self Care Charges/Coding Visit Charges Inpatient E&M: 27123 Disch Hosp >30min 10/07/24 1617 <Electronically signed by Octavio Archuleta MD> Cosigner Signature (if applicable): CC: Dr. Octavio Archuleta MD; Dr. Phu Espinoza MD~ Signed [facility] Work Phone: evaluation note* Diagnosis Onset Date Resolution Status Diabetes chronic High cholesterol chronic Hypertension chronic Hypothyroidism chronic Morbid obesity with BMI of 45.0-49.9, adult chronic Diabetes chronic Distal paresthesia chronic High cholesterol chronic Hypertension chronic Hypothyroidism chronic Vitamin D deficiency [facility] Work Phone: Evaluation note* Diagnosis Onset Date Resolution Status Diabetes chronic High cholesterol chronic Hypertension chronic Hypothyroidism chronic Morbid obesity with BMI of 45.0-49.9, adult chronic Diabetes chronic Distal paresthesia chronic High cholesterol chronic Hypertension chronic Hypothyroidism chronic Vitamin D deficiency chronic Diabetes chronic Hypertension chronic Hypothyroidism chronic Morbid obesity with BMI of 45.0-49.9, [facility] Work Phone: Evaluation note* Diagnosis Onset Date Resolution Status Diabetes chronic Distal paresthesia chronic High cholesterol chronic Hypertension chronic Hypothyroidism chronic Vitamin D deficiency chronic Diabetes chronic Hypertension chronic Hypothyroidism chronic Morbid obesity with BMI of 45.0-49.9, [facility] Work Phone: Evaluation note* Diagnosis Onset Date Resolution Status Diabetes chronic Hypertension chronic Hypothyroidism chronic Morbid obesity with BMI of 45.0-49.9, [facility] Work Phone: Evaluation note* Diagnosis Onset Date Resolution Status Diabetes chronic Hypertension chronic Obesity (BMI 30-39.9) chroni c Abdominal pain acute Abdominal pain, RLQ acute Fever acute History of diabetes mellitus acute Nausea acute SIRS (systemic inflammatory response syndrome) acute Vomiting acute History of chronic kidney disease chronic [facility] Work Phone: Evaluation note* Diagnosis Onset Date Resolution Status Diabetes chronic Hypertension chronic Obesity (BMI 30-39.9) chroni c Abdominal pain acute Abdominal pain, RLQ acute History of diabetes mellitus acute History of chronic kidney disease chronic Fever resolved Nausea resolved Vomiting resolved [facility] Work Phone: Evaluation note* Diagnosis Onset Date Resolution Status Acute pharyngitis, unspecified acute Shingles acute Diabetes chronic Ob[facility] (BMI 30-39.9) [facility] Work Phone: Evaluation note* Diagnosis Onset Date Resolution Status CKD (chronic kidney disease) stage 3, GFR 30-59 ml/min chronic Diabetes chronic Obesity [facility] Work Phone: Evaluation note* Diagnosis Onset Date Resolution Status Diabetes chronic Obesity [facility] Work Phone: Evaluation note* Diagnosis Onset Date Resolution Status Diabetes chronic Obesity chronic Epigastric pain acute Anemia noneactive Fatigue acute Depression chronic Diabetes chronic Hypertension chronic Hypothyroidism chronic Obesity chronic Vitamin D deficiency chronic [facility] Work Phone: Evaluation note* Diagnosis Onset Date Resolution Status Epigastric pain acute Anemia noneactive Fatigue acute Depression chronic Diabetes chronic Hypertension chronic Hypothyroidism chronic Obesity chronic Vitamin D deficiency chronic [facility] Work Phone: Evaluation note* Diagnosis Onset Date Resolution Status Fatigue acute Depression chronic Diabetes chronic Hypertension chronic Hypothyroidism chronic Obesity chronic Vitamin D deficiency [facility] Work Phone: Hospital Discharge instructions Additional Instructions Your CAT scan normal appendix today. No other acute findings. With your fever all your labs are normal including COVID and influenza. Continue clear liquid diet next 12 to 24 hours. Tylenol as needed. If pain intensifies or worsens in your right lower quadrant abdomen, return for reevaluation.[facility] Work Phone: Progress note Author Massiel Gibbons [facility] Note Date/Time December 12, 2024 11:44am [facility] [address] [place], [place] [address] OFFICE VISIT Date of Service: 12/12/24 MR#: [id number] Acct: [id number] Name: ARLEN NGUYEN Rep #: [id number] : 1970 Provider: ADELITA Gibbons Age/Sex: 54/F Location: [facility] Status: Signed Intake Vital Signs 11/08/24 13:04 [...] #90 tabs 11/26/24 12/12/24 Rx tablet (Farxiga) [facility] Medical History Near syncope Bradycardia Diabetes Incisional [...] at 6.7%. Weight relatively stable. Currently using [employer] with [employer] CGM. 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 Phu Espinoza MD ~ [facility] Work Phone: Reason for referral (narrative)No reason for referral information availableLicking [facility] Hospital Work Phone: Chief Complaint and Reason for Visit Chief Complaint MOLD SPRAYER-DM-NPP MAILED 1 M FU Reason for Visit Diabetes High cholesterol Hypertension Hypothyroidism Morbid obesity with BMI of 45.0-49.9, adult Diabetes Distal paresthesia High cholesterol Hypertension Hypothyroidism Vitamin D deficiency Chief Complaint MOLD SPRAYER-DM-NPP MAILED 1 M FU KIDNEY STONES Reason for Visit Diabetes High cholesterol Hypertension Hypothyroidism Morbid obesity with BMI of 45.0-49.9, adult Diabetes Distal paresthesia High cholesterol Hypertension Hypothyroidism Vitamin D deficiency Chief Complaint MOLD SPRAYER-DM-NPP MAILED 1 M FU KIDNEY STONES 2 [...] No February 03, 021 7:01pm Power of [place] Yes February 03, 2021 7:01pm Advance Directive Response Recorded Date/ Time Advance Directives No September 11 10:46am Living Will No February 03, 022 7:20pm Power of [place] No February 03, 2022 7:20pm Advance Directive Response Recorded Date/ Time Name of Medical Power of [place] [place]man tammycollin nguyen February 03, 2022 11:15pm Advance Directives No September 11 10:46am Living Will No February 03 022 11:15pm Power of [place] Yes February 03, 2022 11:15pm Advance Directive Response Recorded Date/ Time Advance Directives No September 11 11:46am Living Will No February 04 022 12:15am Power of [place] Yes February 04, 2022 12:15am Advance Directive Response Recorded Date/ Time Advance Directives No September 11 10:46am Living Will No February 03 11:15pm Power of [place] Yes February 03, 2022 11:15pm Advance Directive Response Recorded Date/ Time Name of Medical Power of [place] March 07, 2023 1:20pm Advance Directives No September 11 10:46am Living Will Yes March 07, 023 1:20pm Power of [place] Yes March 07, 2023 1:20pm Advance Directive Response Recorded Date/ Time Name of Medical Power of [place] March 07, 2023 2:20pm Advance Directives No September 11 11:46am Living Will Yes March 07, 2 023 2:20pm Power of [place] Yes March 07, 2023 2:20pm Advance Directive Response Recorded Date/ Time Advance Directives No September 11 11:46am Advance Directive Response Recorded Date/ Time Do you have a Healthcare Power of [place]man? Yes October 05, 2024 7:29pm Advance Directives No September 11 11:46am Advance Directive Response Recorded Date/ Time Do you have a Healthcare Pow er of [place]ale Fisherman? Yes October 05, 2024 9:47pm Name of Medical Power of [place] [place]man Babita Mckinley October 05, 2024 9:47pm Advance Directives No September 11 11:46am Summary Purpose Additional Source Comments Source Comments (unrecognize d section and content) In the event this informatio n is protected by the Federal Confidentiality of Alcohol and Drug Abuse Patient Records regulations: The Federal rules restrict any use of the information to criminally investigate or prosecute any alcohol or drug abuse patient.[facility] Goals (unrecognized section and content) Goals [...] Active Start: October 06, 2024 Dr. Megan Gmoez MD Other Provider Active St art: October [...] section and content) DATE CREATED AUTHOR 02/07/2025 [facility] FOR RECORDS PERTAINING TO PATIENTS WHO ARE [...] BE BASED ON THE PRIMARY CLINICAL RECORDS. [facility] [employer] [facility]. provides no warranty or guarantee of the accuracy or completeness of information in this document.
== END | disposition home or self-care (01) ==
LOC: US 07:28
PROVIDERS: PCP Family Medicine Geriatric Medicine; Referring Provider Internal Medicine; Visit Provider Internal Medicine
DX: K75.81 Nonalcoholic steatohepatitis (NASH) (principal); N18.31 Chronic kidney disease, stage 3a; R74.8 Abnormal levels of other serum enzymes
CPT/HCPCS: 76705; 76981